=== PATIENT | male | born 1970 | race Caucasian/White ===

== ENCOUNTER 2019-11-12 14:25 | Emergency (ER) | payer OTHER ==
[~2019-11-12] VITALS: Ht 180.3 cm; Wt 99.8 kg
[~2019-11-12 14:25] MED LIST: LANTUS SOL100 UNIT/1 SUB-Q
--- OUTSIDE RECORDS SUMMARY | 2019-11-12 14:28 | XMS ---
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 E.Adrien. VISIT COUNT (12 MO.) 4 [facility] Althea Ferrera 1 [facility] ED 3 [facility] TOTAL 8 NOTE: Visits indicate total known visits. ED/UCC VISIT TRACKING (12 MO.) 11/12/2019 14:25 [facility] [place] TYPE: Emergency COMPLAINT: - RASH, SORE THROAT [facility] [place] [facility] DIAGNOSES: - Other chest pain - Acute kidney failure, unspecified - Chest Pain - 1 Type 2 diabetes mellitus with hyperglycemia - Elevated white blood cell count, unspecified 08/01/2019 19:12 [facility] DIAGNOSES: - Rash - Allergy, unspecified, initial encounter 05/13/2019 18:05 [facility] TYPE: Urgent Care DIAGNOSES: - Proc/trtmt not crd out d/t pt lv bef seen by [facility] prov 04/24/2019 08:13 [facility] [place] TYPE: Emergency COMPLAINT: - POSS INFECTION RT TOE DIAGNOSES: - Pain in left leg - Allergy status to other antibiotic agents status - Nicotine dependence, unspecified, uncomplicated - Pain in right leg - Allergy status to sulfonamides status - 1 Type 2 diabetes mellitus without complications - emt intermediate (current) use of insulin - Other specified soft tissue disorders - Allergy status to narcotic agent status 04/24/2019 00:00 [facility] [place] TYPE: Emergency COMPLAINT: - POSSIBLE INFECTION 12/07/2018 14:14 [facility] Althea [place] TYPE: Emergency DIAGNOSES: - Cellulitis of right lower limb - foot swelling 12/07/2018 12:51 [facility] TYPE: Urgent Care DIAGNOSES: - Foot Wound - Cellulitis of right lower limb 11/25/2018 22:17 [facility] DIAGNOSES: - Opioid dependence, uncomplicated - Overdose (Accidental) - Foot Pain - Other chronic osteomyelitis, right ankle and foot - Subacute osteomyelitis, right ankle and foot - 1 Type 2 diabetes mellitus without complications - Poisoning by unsp narcotics, accidental, init 11/13/2018 17:[address] [facility] Fidencio [place] TYPE: Emergency DIAGNOSES: - Skin Complaint - Cellulitis of right lower limb - medical problem - Hyperglycemia- Symptomatic - Other acute osteomyelitis, right ankle and foot INPATIENT VISIT TRACKING (12 MO.) 11/25/2018 22:17 [facility] DIAGNOSES: - Poisoning by unsp narcotics, accidental, init - Opioid dependence, uncomplicated - emt intermediate (current) use of insulin - Other chronic osteomyelitis, right ankle and foot - Other psychoactive substance abuse, uncomplicated - 1 Type 2 diabetes mellitus without complications - Nicotine dependence, unspecified, uncomplicated - Subacute osteomyelitis, right ankle and foot [email or web address]
[2019-11-12] MEDS ORDERED: GLUCOPHAGE500 MG PO (15:46)
[2019-11-12] MEDS ORDERED: OMEPRAZOLE20 MG PO (15:47)
[2019-11-12] MEDS ORDERED: LISINOPRIL10 MG PO (15:47)
[2019-11-12] MEDS ORDERED: FLOMAX0.4 MG PO (15:47)
[2019-11-12] MEDS ORDERED: FUROSEMIDE20 MG PO (15:48)
[2019-11-12] MEDS ORDERED: VITAMIN D21250 MCG PO (15:49)
[2019-11-12] MEDS ORDERED: LIPITOR40 MG PO (15:50)
[2019-11-12] MEDS ORDERED: CYCLOBENZAPRINE10 MG PO (15:50)
[2019-11-12] MEDS ORDERED: ONDANSETRON ODT8 MG PO (15:51)
[2019-11-12] MEDS ORDERED: DOXYCYCLINE HY100 MG PO (17:57)
== END 2019-11-12 18:30 | disposition home or self-care (01) ==
LOC: ED 14:25
DX: E11.65 Type 2 diabetes mellitus with hyperglycemia (principal); L73.9 Follicular disorder, unspecified; J40 Bronchitis, not specified as acute or chronic; F41.9 Anxiety disorder, unspecified; F17.200 Nicotine dependence, unspecified, uncomplicated; Z88.2 Allergy status to sulfonamides; Z88.5 Allergy status to narcotic agent; Z88.8 Allergy status to other drugs, medicaments and biological substances; Z88.1 Allergy status to other antibiotic agents; Z79.899 Other long term (current) drug therapy; Z79.4 Long term (current) use of insulin
CPT/HCPCS: 71046; 80053; 85025; 96360; 99285-25; J1815; J7030

== ENCOUNTER 2020-06-16 21:10 | Emergency (ER) | payer OTHER ==
[~2020-06-16] VITALS: Ht 182.9 cm; Wt 95.2 kg
--- OUTSIDE RECORDS SUMMARY | ~2020-06-16 | XMS | Encounter Summary ---
Demographics + + + | Address | [address] | | | [place] [address] | + + + | Home Phone | | + + + | Preferred Language | Unknown | + + + | Marital Status | | + + + | Rastafari Affiliation | Unknown | + + + | Race | White | + + + | Ethnic Group | Not or | + + + Author + + + | Author | [facility] | | | and [place] | + + + | Organization | [facility] | | | and [place] | + + + | Address | Unknown | + + + | Phone | Unavailable | + + + Support + + + + + | Name | Relationship | Address | Phone | + + + + + | Crystal Erik | ECON | [address] | | | | | [place], | | | | | [place] [address] | | + + + + + Care Team Providers + +------+ + | Care Wine Consultant Name | Role | Phone | + +------+ + PCP | Unavailable | + +------+ + Reason for Visit +---------+ + | Reason | Comments | +---------+ + | Post Op | right knee scope dos 12/05/14 | +---------+ + Encounter Details +--------+---------+ + + + | Date | Type | Department | Care Team | Description | +--------+---------+ + + + | 12/12/ | Office | [facility] | Miranda Perez | S/P orthopedic | | 2015 | Visit | ORTHOPEDIC SURGERY | MD Gosia [address] | surgery, follow-up | | | | [address] | [place] | exam (Primary Dx) | | | | [place] | [phone] | | | | | [address] | | | | | | [phone] | | | +--------+---------+ + + + Social History + +-------+ +--------+ + | Tobacco Use | Types | Packs/Day | Years | Date | | | | | Used | | + +-------+ +--------+ + | Former Smoker | | | | Quit: 08/18/2014 | + +-------+ +--------+ + + +---+---+---+ | Smokeless Tobacco: | | | | | Never Used | | | | + +---+---+---+ + + +---------+ + | Alcohol Use | Drinks/Week | oz/Week | Comments | + + +---------+ + | Not Asked | | | | + + +---------+ + + + + | Sex Assigned at | Date Recorded | | | | + + + | Not on file | | + + + documented as of this encounter Last Filed Vital Signs + + + + + | Vital Sign | Reading | Time Taken | Comments | + + + + + | Blood Pressure | - | - | | + + + + + | Pulse | - | - | | + + + + + | Temperature | 36.8 C (98.2 F) | 12/12/2014 7:09 AM | | | | | PDT | | + + + + + | Respiratory Rate | - | - | | + + + + + | Oxygen Saturation | - | - | | + + + + + | Inhaled Oxygen | - | - | | | Concentration | | | | + + + + + | Weight | 111.6 kg (246 lb) | 12/12/2014 7:09 AM | | | | | PDT | | + + + + + | Height | 182.9 cm (6') | 12/12/2014 7:09 AM | | | | | PDT | | + + + + + | Body Mass Index | 33.36 | 12/12/2014 7:09 AM | | | | | PDT | | + + + + + documented in this encounter Progress Notes Miranda Perez MD - 12/12/2014 7:28 AM PDTSee soap note [id number].Electronically sign ed by Miranda Perez MD at 12/12/2014 7:28 AM PDTMiranda Perez MD - 7:27 AM PDT [facility] [address] [place] [id number] OFFICE NOTE MIRANDA PEREZ MD Patient: CECILIO GARCIA Admitting: MR #: [id number] LOC: PT TYPE: Adm Date: 12/12/2014 : 1970 Cecilio returns today for his first postoperative visit following his right knee arthr oscopy performed on 12/05 one week ago. The knee is getting progressively more comfortable. He notes specifically that the significant medial sided knee pain is now resolved. He i s using a wheeled walker with a seat that he already had prior to surgery that allows him t o ambulate in the community with some support. EXAMINATION: The patient's right knee is examined. Incisions are clean, dry, and nicely healed. There is no evidence of drainage or infection. ADVICE: Mr. Garcia appears to be making steady progress. He is simply advised to avoi d high impact or high force activities. He continues to struggle with the use of nicotine, and we have encouraged him to minimize or discontinue use of nicotine if possible. He was given a single refill prescription for Dilaudid 4 mg pain pills. We will plan to see [facility] istopher back for a clinical check in 3 weeks. MIRANDA PEREZ MD Dictated by MIRANDA PEREZ MD 12/12/2014 07:27:54 Transcribed on 12/12/2014 07:38:58 by sandy job# [id number] Confirmation #: [id number] cc: IRAIDA FISH MD A M PDTdocumented in this encounter Plan of Treatment Not on filedocumented as of this encounter Visit Diagnoses + + | Diagnosis | + + | S/P orthopedic surgery, follow-up exam - Primary Follow-up examination, following | | other surgery | + + documented in this encounter"
--- OUTSIDE RECORDS SUMMARY | ~2020-06-16 | XMS | Encounter Summary ---
Demographics + + + | Address | [address] | | | [place] [address] | + + + | Home Phone | | + + + | Preferred Language | Unknown | + + + | Marital Status | | + + + | Jain Affiliation | Unknown | + + + | Race | White | + + + | Ethnic Group | Not or | + + + Author + + + | Author | [facility] | | | and [place] | + + + | Organization | [facility] | | | and [place] | + + + | Address | Unknown | + + + | Phone | Unavailable | + + + Support + + + + + | Name | Relationship | Address | Phone | + + + + + | Tasha Valencia | ECON | [address] | | | | | [place], | | | | | [place] [address] | | + + + + + Care Team Providers + +------+ + | Care General Contractor Name | Role | Phone | + +------+ + | Dimitri Fischer MD | PCP | | + +------+ + Reason for Visit + + + | Reason | Comments | + + + | Pre-op Exam | PREOP RIGHT KNEE ARTHROSCOPY AND LEFT ELBOW INJECTION AND | | | BILATERAL SHOULDER INJECTION DOS 02/12/08 | + + + Encounter Details +--------+---------+ + + + | Date | Type | Department | Care Team | Description | +--------+---------+ + + + | 02/05/ | Office | [facility] | Marty Wood | Hyperlipidemia, | | 2018 | Visit | ORTHOPEDIC SURGERY | MD Gosia [address] | unspecified | | | | [address] | [place] | hyperlipidemia type | | | | [place] | [id number] | (Primary Dx); Preop | | | | [address] | | testing; Left elbow | | | | [phone] | | pain; Other tear of | | | | | | medial meniscus of | | | | | | right knee as | | | | | | current injury, | | | | | | initial encounter; | | | | | | Bilateral shoulder | | | | | | pain, unspecified | | | | | | chronicity | +--------+---------+ + + + Social History + + + +--------+------+ | Tobacco Use | Types | Packs/Day | Years | Date | | | | | Used | | + + + +--------+------+ | Current Every Day | Cigarettes, | 0.5 | 20 | | | Smoker | E-Cigarettes | | | | + + + +--------+------+ + +---+---+---+ | Smokeless Tobacco: | | | | | Never Used | | | | + +---+---+---+ + + +---------+ + | Alcohol Use | Drinks/Week | oz/Week | Comments | + + +---------+ + | No | | | | + + +---------+ [...] + + + | Blood Pressure | 135/62 | 02/05/2018 2:12 PM | | | | | PDT | | + + + + + | Pulse | 90 | 02/05/2018 2:12 PM | | | | | PDT | | + + + + + | Temperature | 36.8 C (98.2 F) | 02/05/2018 2:12 PM | | | | | PDT | | + + + + + | Respiratory Rate | 18 | 02/05/2018 2:12 PM | | | | | PDT | | + + + + + | Oxygen Saturation | 96% | 02/05/2018 2:12 PM | | | | | PDT | | + + + + + | Inhaled Oxygen | - | - | | | Concentration | | | | + + + + + | Weight | 97.1 kg (214 lb) | 02/05/2018 2:12 PM | | | | | PDT | | + + + + + | Height | 182.9 cm (6') | 02/05/2018 2:12 PM | | | | | PDT | | + + + + + | Body Mass Index | 29.02 | 02/05/2018 2:12 PM | | | | | PDT | | + + + + + documented in this encounter H&P Notes Marty Wood MD - 02/05/2018 2:15 PM PDTFormatting of this note might be differen t from the original. 02/05/18 Patient: Cecilio Albarichshalini Juana History of present illness: Cecilio is a 47 y.o. male who presents to our clinic today for a preop examination. Cecilio is scheduled for a right knee arthroscopy combined with injections of the left elbow and both shoulder subacromial spaces on 5/23/18. He has histo ry of having previous undergone a right knee arthroscopy in 2014 which initially did well bu t he then later sustained a fall at [employer] with an associated right knee injury that has continued to plague him with pain. A more recent MRI scan has revealed a torn medial menis cus and he therefore is felt to be a candidate for a repeat right knee arthroscopy. In su tion, this will be combined with injections of his left elbow as well as both shoulder subac romial spaces while he is under anesthesia as he does have known traumatically-induced left elbow degenerative change and bilateral shoulder impingement syndrome. 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 Osteoporosis PONV (postoperative nausea and vomiting) Seizure (HCC) Testosterone deficiency Vitamin D deficiency Past Surgical History: Procedure Laterality Date CARPAL TUNNEL RELEASE Left 05/14/2017 Procedure: Left Elbow Joint Exploration and Bilateral Shoulder Injection; Surgeon: Nirmal Wood MD; Location: [facility] MA[facility] OR ELBOW SURGERY Left 11/15/2015 Procedure: Left Lateral Epicondylar Release & Injection of Left Elbow Joint ; Surgeon: Janet Wood MD; Location: [facility] MA[facility] OR KNEE ARTHROSCOPY Right 12/05/2014 Procedure: Right Knee Arthroscopy with Partial Medial Menisectomy and Medial- Femoral Tay droplasty; Surgeon: Marty Wood MD; Location: [facility] MAIN OR MANDIBLE SURGERY spinal cord injury Allergies Allergen Reactions Azithromycin Anaphylaxis Codeine Hives Hydrocodone Hives Sulfa Antibiotics Hives Current Outpatient Prescriptions on File Prior to Visit Medication Sig Dispense Refill amphetamine-dextroamphetamine (ADDERALL XR) 30 MG 24 hr capsule take 1 capsule by mouth once daily 0 amphetamine-dextroamphetamine (ADDERALL) 20 mg tablet take 1 tablet by mouth every morn ing and 1/2 tablet at noon 0 B-D 3CC LUER-ANDREAS SYR 84PK5-5/2 22G X 1-1/2" 3 ML MISC use to INJECT TESTOSTERONE TWICE A WEEK 0 B-D 3CC LUER-ANDREAS SYR 75IW6-6/2 23G X 1-1/2" 3 ML MISC 0 cholecalciferol (VITAMIN D-3) 1,000 units capsule Take 1 capsule by mouth Daily. (Patie nt not taking: Reported on 02/05/2018) 90 capsule 3 cyclobenzaprine (FLEXERIL) 10 mg tablet 1 tablet orally 3 times per day (Patient not ta sanjuanita: Reported on 02/05/2018) 90 tablet 2 dapagliflozin (FARXIGA) 10 mg tablet Take 1 tablet by mouth Daily. (Patient taking diff erently: Take 10 mg by mouth Daily. Was put of jardiance, but will be restarting) 30 tablet 1 ergocalciferol (VITAMIN D-2) 50,000 units capsule take 1 capsule by mouth weekly 0 gabapentin (NEURONTIN) 600 MG tablet take 1 tablet by mouth three times a day 0 glipiZIDE (GLUCOTROL) 10 MG tablet take 1 tablet by mouth twice a day 0 glucose blood test strips (TERRI CONTOUR TEST) strip Use as dir (Patient not taking: Reported on 02/05/2018) 100 each 0 HYDROmorphone (DILAUDID) 4 MG tablet Take 1 tablet by mouth every 6 hours as needed for Pain. (Patient not taking: Reported on 02/05/2018) 50 tablet 0 lisinopril (PRINIVIL, ZESTRIL) 10 mg tablet 0 metformin (GLUCOPHAGE) 1000 MG tablet Take 1,000 mg by mouth 2 times daily (with breakf ast & dinner). methadone 10 mg tablet Take 0.5 tablets by mouth every 8 hours as needed. (Patient miquel ng differently: Take 80 mg by mouth 2 times daily.) 45 tablet 0 NARCAN 4 MG/0.1ML 0 omeprazole (PRILOSEC) 20 mg capsule Take 20 mg by mouth every morning (before breakfast ). ondansetron (ZOFRAN) 4 mg tablet Take 4 mg by mouth every 8 hours as needed for Nausea. 0 oxyCODONE (ROXICODONE) 30 MG immediate release tablet Take 1 tablet by mouth every 6 ho urs as needed for Pain. (Patient taking differently: Take 30 mg by mouth every 4 hours as ne eded for Pain.) 120 tablet 0 rosuvastatin (CRESTOR) 40 MG tablet 0 SENNA LAX 8.6 MG tablet take 4 tablets by mouth UP TO 2 TIMES A DAY NEEDED FOR CONST IPATION 0 simvastatin (ZOCOR) 40 mg tablet Take 20 mg by mouth nightly. tamsulosin (FLOMAX) 0.4 mg CAPS Take 0.4 mg by mouth daily (after breakfast). 0 testosterone cypionate (DEPO-TESTOSTERONE) 200 mg/mL injection inject 0.4 milliliters t wo times a week 0 VENTOLIN HFA 108 (90 Base) MCG/ACT inhaler 0 No current facility-administered medications on file prior to visit. History reviewed. No pertinent family history. Social History Social History Marital status: Single Spouse name: N/A Number of children: N/A Years of education: N/A Occupational History Not on file. Social History Main Topics Smoking status: Current Every Day Smoker Packs/day: 0.50 Years: 20.00 Types: Cigarettes, E-Cigarettes Smokeless tobacco: Never Used Alcohol use No Drug use: Yes Frequency: 7.0 times per week Types: Marijuana Sexual activity: Not on file Other Topics Concern Not on file Social History Narrative No narrative on file Review of Systems Eyes: [] Double vision [] Glasses/contacts [] Failing vision Ear/Nose/Throat: [] Frequent Colds [] Sinus Disease [] Nose obstruction [] Sneezing Spells [] Change in taste [] Artificial teeth [] Ears ringing [] Ear pain [] Hearing loss [] Teeth problems [] Hoarseness [] Neck swelling [] Sore throat [] Congestion [] Nosebleeds [] Nasal allergies Respiratory: [] Asthma/Wheezing [] Pneumonia [] Night sweats [] Shortness of breath [] Chronic cough [] Coughing up blood [] Exposure to tuberculosis Cardiovascular: [] Heart Problems [] Hypertension [] Heart murmur [] Palpitations [] Rheumatic fever [] Phlebitis [] Chest pain [] Ankle swelling [] Leg cramps [] Racin g heart [] Skipping beats [] Blood clots Gastrointestinal: [] Abdominal pain [] Heartburn [] Blood from rectum [] Colitis [] Gallbladder problems [] Troubl e swallowing [] Bloated stomach [] Change in stools [] Vomiting blood [] Nausea [] Hemorrhoids [] Jaundice [ ] Hepatitis [] Diarrhea [] Constipation [] Diverticulitis Urinary Tract: [] Painful urination [] Kidney Stones [] Any urine leakage [] Weak urine stream [] Night urination [] Urine infections [] Bedwetting [] Blood in urine Skin: [] Skin rashes [] Itching/Burning [] Skin bruises easil y [] Artificial tanning [] Skin cancer [] Hair loss [] Changes in moles Musculoskeletal: [] Physical handicaps [] Back or shoulder pain []Rheumatoid disease [] Osteoarthritis [] Joint pain [] Joint swelling []Gout [] Leg cramps at night Neurological: [] Headaches [] Seizures [] Stroke/TIA [] Faintness [] Tremors [] Numbness [] Dizziness [] Changes in handwriting [] Memory loss [] Shooting pains Psychiatric: [] Depression [] Suicidal thoughts [] Sleep pattern changes [] Appetite changes [] Recent counseling [] Nervousness/anxiety [] Physical violence [] Marital problems Endocrine: [] Thyroid [] Diabetes Systemic: []Weight loss/gain (over 10 lbs) []Fever/chills []Fatigue [] Sleeping Difficulties [] Speech change [] Voice change Vitals: 02/05/18 1412 PainSc: 8 Estimated body mass index is 29.02 kg/m as calculated from the following: Height as of this encounter: 1.829 m (6'). Weight as of this encounter: 97.1 kg (214 lb). Physical examination:Patient is alert and oriented and in no acute distress. Inspection reveals: Skin is warm dry and intact with no gross deformity. Head: Oral pharnyx nonerythematous nonedematous no exudate noted Neck: Supple nontender without any lymphadenopathy. Heart: Regular rate and rhythm. Lungs: Clear to auscultation. Abdomen: Soft nontender no masses organomegaly. Cranial nerves 2-12 grossly intact. Musculoskeletal: His right knee is tender over the medial joint line. He does lack approxi mately 10 of full left elbow extension and is diffusely tender surrounding the left elbow. He does have pain with abduction of both shoulders against resistance. Neurovascular func tion is intact all 4 extremities. Assessment: Torn medial meniscus right knee, induced left elbow osteoarthrosis, bilateral shoulder impingement syndrome. Plan: The patient is scheduled for a right knee arthroscopy, and injections of left elbow a nd both shoulder subacromial spaces on 02/11/18. Therefore, the planned procedure with its r isks, possible complications, expected prognosis, and treatment alternatives was discussed w ith the patient. Risks and possible complications were listed but not limited to infection, nerve and vessel damage, bleeding, pain, scarring, stiffness, residual symptoms remaining a fter surgery, and the risk of anesthesia including . No guarantees were given or impli ed other than that of diligent effort. Fatoumata Wilson LPN This note was copied by office staff from an external medical record. It was written by the provider listed and the pasted text includes the patient name, date of , and original electronic notation of signature by the author. documented in this encounter Plan of Treatment Not on filedocumented as of this encounter Procedures + +--------+ + + + | Procedure Name | Priori | Date/Time | Associated Diagnosis | Comments | | | ty | | | | + +--------+ + + + | ECG 12 LEAD | Routin | 02/05/2018 | Hyperlipidemia, | Results for this | | | e | 3:12 PM | unspecified | procedure are in the | | | | PDT | hyperlipidemia type | results section. | + +--------+ + + + documented in this encounter Results Hemoglobin (02/05/2018 3:31 PM PDT) + +-------+ + + + | Component | Value | Ref Range | Performed | Pathologist | | | | | At | Signature | + +-------+ + + + | Hemoglobin | 14.0 | 13.5 - 18.0 | [facility] | | | | | g/dL | [facility] | [facility] | [facility] - | | | | | | [facility]ATORY | | + +-------+ + + + + + | Specimen | + + | Blood | + + + + + + + | Performing | Address | City/State/Zipcode | Phone Number | | Organization | | | | + + + + + | [facility] | [address] | [place] | [phone] | | [facility] | | [address] | | | - LABORATORY | | | | + + + + + ECG 12 lead (02/05/2018 3:12 PM PDT) + + + + + + | Component | Value | Ref Range | Performed | Pathologist | | | | | At | Signature | + + + + + + | VENTRICULAR | 89 | BPM | [facility] | | | RATE EKG | | | | | + + + + + + | ATRIAL RATE | 89 | BPM | [facility] | | + + + + + + | P-R | 156 | ms | [facility] | | | INTERVAL | | | | | + + + + + + | QRS | 120 | ms | [facility] | | | DURATION | | | | | + + + + + + | Q-T | 390 | ms | [facility] | | | INTERVAL | | | | | + + + + + + | Q-T | 474 | ms | [facility] | | | INTERVAL | | | | | | (CORRECTED) | | | | | + + + + + + | P WAVE AXIS | 65 | degrees | [facility] | | + + + + + + | QRS AXIS | 29 | degrees | [facility] | | + + + + + + | T AXIS | 37 | degrees | [facility] | | + + + + + + | INTERPRETAT | Normal sinus rhythmRight | | [facility] | | | ION TEXT | bundle branch | | | | | | blockAbnormal ECGWhen | | | | | | compared with ECG of | | | | | | 04-MAR-2017 09:40,No | | | | | | significant change was | | | | | | foundConfirmed by | | | | | | YAZMIN FERNANDEZ MD ([id number]) | | | | | | on 02/06/2018 7:51:03 AM | | | | + + + + + + + + | Specimen | + + | | + + + + + | Narrative | Performed At | + + + | | | + + + + +---------+ + + | Performing | Address | City/State/Zipcode | Phone Number | | Organization | | | | + +---------+ + + | [facility] | | | | + +---------+ + + documented in this encounter Visit Diagnoses + + | Diagnosis | + + | Hyperlipidemia, unspecified hyperlipidemia type - Primary | + + | Preop testing Preoperative examination, unspecified | + + | Left elbow pain Pain in joint, upper arm | + + | Other tear of medial meniscus of right knee as current injury, initial encounter | + + | Bilateral shoulder pain, unspecified chronicity | + + documented in this encounter
--- OUTSIDE RECORDS SUMMARY | ~2020-06-16 | XMS | Encounter Summary ---
Demographics + + + | Address | [address] | | | [place] [address] | + + + | Home Phone | | + + + | Preferred Language | Unknown | + + + | Marital Status | | + + + | Moravian Affiliation | Unknown | + + + | Race | White | + + + | Ethnic Group | Not or | + + + Author + + + | Author | [facility] | | | and [place] | + + + | Organization | [facility] | | | and [place] | + + + | Address | Unknown | + + + | Phone | Unavailable | + + + Support + + + + + | Name | Relationship | Address | Phone | + + + + + | Crystal Luzr | ECON | [address] | | | | | [place], | | | | | [place] [address] | | + + + + + Care Team Providers + +------+ + | Care Automatic Spooler Operator Name | Role | Phone | + +------+ + PCP | Unavailable | + +------+ + Reason for Visit + + + | Reason | Comments | + + + | Therapy Daily | | | Treatment | | + + + Evaluate & Treat (Routine) +--------+--------+ + + + + | Status | Reason | Specialty | Diagnoses / | Referred By | Referred To | | | | | Procedures | Contact | Contact | +--------+--------+ + + + + | Closed | | Occupational | Diagnoses | Katiana, | Jacky, | | | | Therapy / | might only | Amadeo | Dai Flower, | | | | Rehabilitatio | have 3 vts | MAHENDRA [address] | OT [address] | | | | n | auth'd with | [address] | | | | | non-funded | [address] [place] | [place], | | | | | code. | [place], [place] | [place] [address] | | | | | Advised | [id number] | Phone: | | | | | patient's | Phone: | [phone] | | | | | (on | [phone] | Fax: | | | | | 03/12) when | Fax: | [phone] | | | | | she called | [phone] | | | | | | to | | | | | | | reschedule | | | | | | | and apt that | | | | | | | was | | | | | | | scheduled. | | | | | | | Procedures | | | | | | | [facility] | | | | | | | TREATMENT 45 | | | +--------+--------+ + + + + Encounter Details +--------+---------+ + + + | Date | Type | Department | Care Team | Description | +--------+---------+ + + + | 03/26/ | Office | [facility] | Amadeo Saab | Left arm pain | | 2016 | Visit | [facility] | [address]A [address] | (Primary Dx); | | | | THERAPY [address] [place] | Decreased activities | | | | [place], | [place] [address] | of daily living | | | | [place] [address] | [phone] | (ADL); Lateral | | | | [phone] | | epicondylitis of | | | | | Henrietta Ledezma, | left elbow | | | | | [place] [address] | | | | | | [place], [place] | | | | | | [address] | | | | | | | | +--------+---------+ + + + Social History + + + +--------+ + | Tobacco Use | Types | Packs/Day | Years | Date | | | | | Used | | + + + +--------+ + | Current Every Day | Cigarettes, | 0.5 | | Quit: 08/18/2014 | | Smoker | E-Cigarettes | | | | + + + +--------+ + + +---+---+---+ | Smokeless Tobacco: [...] + + documented as of this encounter Progress Notes Henrietta Ledezma COTA - 03/26/2016 3:22 PM PDTFormatting of this note might be different f rom the original. [facility] TH[facility] OT OP [address] [place] [address] Occupational Therapy Daily Treatment Note Date: 03/26/2016 Patient Information Patient Name: Cecilio Arias Date of : 1970 Age: 46 y.o. History Encounter Diagnoses Code Name Primary? M79.602 Left arm pain Yes Z78.9 Decreased activities of daily living (ADL) M77.12 Lateral epicondylitis of left elbow Date of Onset: 11/15/2015 Referring Provider: Amadeo Saab PA-C Rehab Precautions Office Visit from 03/12/2016 in [facility] OT OP Rehab Precautions Precautions Seizure, Poorly controlled/fluctuating blood sugar Rehab Learning Style Office Visit from 03/12/2016 in [facility] OT OP Office Visit from 02/03/2015 in [facility] PT [employer] Learning Style Patient's [employer] Learning Style performance of task listening, reading, performance of task, observation Today's Treatment Start Time: 1515 Stop time: 1556 Duration: 41 minutes Timed Treatment Codes: 41 minutes # of OT Visits: 3 Subjective: Patient stated that his pain is always at an 8/10, but on reflection did note that the pain decreased after his last visit. He stated that he did not find his brace and d id not even wear it once. He stated that he wore the sleeve, but it did not feel like enough . He stated that when he attempts to work he is only able to do a couple of hours then he curry s to quit and hurt more for a couple of weeks. Pain Assessment: Pain Scale Used: NUMERIC Pain Rating Pre Assessment: 8 Location: elbow, shoulder Objective Provided MFR, TPR and soft tissue mobs to forearm. Patient reported that this provides the most relief. Instructed patient in self massage for home. Provied IASTM (Instrument Assisted Soft Tissue Mobilization) to forearm. Pt issued another lateral epicondyle brace and instructed in use. Encouraged patient to procure vibrator for home as he reported this was helpful here in the clinic. Instructed patient in wrist flexion stretch to decrease forearm tightness in extensors. Assessment Patient reporting that he was unable to follow through with brace use at home due to loss. Issued new one, and on trial patient reported some relief with this. Plan LLLT and MFR to area, monitor responce to brace, decrease pain. Electronically signed by: JHONATAN Marsh, 03/26/2016 17:17 Patient Name: Cecilio Arias/: 1970/ documented in this encounter Plan of Treatment Not on filedocumented as of this encounter Visit Diagnoses + + | Diagnosis | + + | Left arm pain - Primary Pain in limb | + + | Decreased activities of daily living (ADL) | + + | Lateral epicondylitis of left elbow Lateral epicondylitis of elbow | + + documented in this encounter"
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
--- OUTSIDE RECORDS SUMMARY | ~2020-06-16 | XMS | Encounter Summary ---
Demographics + + + | Address | [address] | | | [place] [address] | + + + | Home Phone | | + + + | Preferred Language | Unknown | + + + | Marital Status | | + + + | Voodoo Affiliation | Unknown | + + + | Race | White | + + + | Ethnic Group | Not or | + + + Author + + + | Author | [facility] | | | and [place] | + + + | Organization | [facility] | | | and [place] | + + + | Address | Unknown | + + + | Phone | Unavailable | + + + Support + + + + + | Name | Relationship | Address | Phone | + + + + + | Crystal Erik | ECON | [address] | | | | | [place], | | | | | [place] [address] | | + + + + + Care Team Providers + +------+ + | Care Visual Arts Teacher Name | Role | Phone | + +------+ + PCP | Unavailable | + +------+ + Reason for Referral Diagnostic/Screening (Routine) +--------+--------+ + + + + | Status | Reason | Specialty | Diagnoses / | Referred By | Referred To | | | | | Procedures | Contact | Contact | +--------+--------+ + + + + | Closed | | Radiology | Diagnoses | Marilia, | [facility] | | | | | Neck pain | Will D, | [address] | | | | | Procedures | MD [address] | [place], | | | | | MRI Cervical | [address] | [place] | | | | | Spine wo | [place], | [address] | | | | | Contrast | [place] [address] | Phone: | | | | | | Phone: | [phone] | | | | | | [phone] | Fax: | | | | | | Fax: | [phone] | | | | | | [phone] | | +--------+--------+ + + + + Evaluate & Treat (Routine) +--------+ + + + + + | Status | Reason | Specialty | Diagnoses / | Referred By | Referred To | | | | | Procedures | Contact | Contact | +--------+ + + + + + | Closed | Specialty | Orthopedic | Diagnoses | Marilia, | [facility] | | | Services | Surgery | Left elbow | Will Jurado, | Orthopedic | | | Required | | pain | MD [address] | [address] | | | | | | [place], | [place], | | | | | | [place] [address] | [place] [address] | | | | | | Phone: | Phone: | | | | | | [phone] | [phone] | | | | | | Fax: | Fax: | | | | | | [phone] | [phone] | +--------+ + + + + + Evaluate & Treat (Routine) +--------+ + + + + + | Status | Reason | Specialty | Diagnoses / | Referred By | Referred To | | | | | Procedures | Contact | Contact | +--------+ + + + + + | Closed | Specialty | Physical | Diagnoses | Marilia, | Claire, | | | Services | Medicine and | Low back | Will Jurado, | Mihir Hubbard MD | | | Required | Rehabilitatio | pain with | MD [address] | [address] | | | | n | sciatica, | [address] | [place] | | | | | sciatica | [place], | [place], [place] | | | | | laterality | [place] [address] | [address] Phone: | | | | | unspecified, | Phone: | [phone] | | | | | unspecified | [phone] | Fax: | | | | | back pain | Fax: | [phone] | | | | | laterality | [phone] | | +--------+ + + + + + Diagnostic/Screening (Routine) +--------+--------+ + + + + | Status | Reason | Specialty | Diagnoses / | Referred By | Referred To | | | | | Procedures | Contact | Contact | +--------+--------+ + + + + | Closed | | Radiology | Diagnoses | Marilia, | [facility] | | | | | Low back | Will D, | [address] | | | | | pain with | MD [address] | [place], | | | | | sciatica, | [address] | [place] | | | | | sciatica | [place], | [address] | | | | | laterality | [place] [address] | Phone: | | | | | unspecified, | Phone: | [phone] | | | | | unspecified | [phone] | Fax: | | | | | back pain | Fax: | [phone] | | | | | laterality | [phone] | | | | | | Procedures | | | | | | | MRI Lumbar | | | | | | | Spine wo | | | | | | | Contrast | | | +--------+--------+ + + + + Reason for Visit + + + | Reason | Comments | + + + | Arm Pain | Swollen below elbow | + + + | Medication Refill | | + + + Encounter Details +--------+---------+ + + + | Date | Type | Department | Care Team | Description | +--------+---------+ + + + | 06/27/ | Office | [facility] [place] [facility] | Will Capellan, | Left elbow pain | | 2015 | Visit | [facility] | [address] | (Primary Dx); Low | | | | [address] | [place], [place] | back pain with | | | | [place], [place] | [address] | sciatica, sciatica | | | | [address] | | laterality | | | | [phone] | | unspecified, | | | | | | unspecified back | | | | | | pain laterality; | | | | | | Neck pain | +--------+---------+ + + + Social History + + + +--------+ + | Tobacco Use | Types | Packs/Day | Years | Date | | | | | Used | | + + + +--------+ + | Current Every Day | Cigarettes | 0.5 | | Quit: 08/18/2014 | | Smoker | | | | | + + [...] + + + | Blood Pressure | 110/72 | 06/27/2015 8:07 AM | | | | | PDT | | + + + + + | Pulse | 95 | 06/27/2015 8:07 AM | | | | | PDT | | + + + + + | Temperature | 36.4 C (97.5 F) | 06/27/2015 8:07 AM | | | | | PDT | | + + + + + | Respiratory Rate | 14 | 06/27/2015 8:07 AM | | | | | PDT | | + + + + + | Oxygen Saturation | 97% | 06/27/2015 8:07 AM | | | | | PDT | | + + + + + | Inhaled Oxygen | - | - | | | Concentration | | | | + + + + + | Weight | 113.4 kg (250 lb) | 06/27/2015 8:07 AM | | | | | PDT | | + + + + + | Height | - | - | | + + + + + | Body Mass Index | 33.9 | 06/16/2015 11:19 AM | | | | | PDT | | + + + + + documented in this encounter Progress Notes Will Capellan MD - 07/03/2015 3:29 PM PDTFormatting of this note might be different f rom the original. Subjective: Patient ID: Cecilio Arias is a 45 y.o. male. Arm Pain The incident occurred more than 1 week ago. There was no injury mechanism. The pain is at a severity of 5/10. The pain is moderate. Pertinent negatives include no chest pain, muscle w eakness, numbness or tingling. Nothing aggravates the symptoms. He has tried nothing for the symptoms. The treatment provided no relief. 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 Patient Active Problem List Diagnosis Date Noted POA Opiate dependence 06/20/2015 Unknown Knee pain, right 02/03/2015 Unknown Past Surgical History Procedure Laterality Date Knee arthroscopy Right 12/05/2014 Procedure: Right Knee Arthroscopy with Partial Medial Menisectomy and Medial- Femoral Cho ndroplasty; Surgeon: Marty Wood MD; Location: [facility] History Social History Marital Status: Single Spouse Name: N/A Number of Children: N/A Years of Education: N/A Social History Main Topics Smoking status: Current Every Day Smoker -- 0.50 packs/day Types: Cigarettes Last Attempt to Quit: 08/18/2014 Smokeless tobacco: Never Used Alcohol Use: No Drug Use: Yes Special: Marijuana Sexual Activity: None Other Topics Concern None Social History Narrative Current Outpatient Prescriptions Medication Sig Dispense Refill albuterol (VENTOLIN HFA) 90 mcg/puff inhaler Inhale 2 puffs into the lungs every 6 hour s as needed. 2 each 1 celecoxib (CELEBREX) 200 mg capsule Take 1 capsule by mouth Daily. 60 capsule 3 Cholecalciferol (VITAMIN D PO) Take by mouth. cholecalciferol (VITAMIN D-3) 1,000 units capsule 0 cyclobenzaprine (FLEXERIL) 10 mg tablet 1 tablet orally 3 times per day 90 tablet 2 CYCLOBENZAPRINE HCL PO Take by mouth. gabapentin (NEURONTIN) 300 mg capsule take 1 capsule by mouth three times a day 90 caps ule 2 glucose blood test strips (TERRI CONTOUR TEST) strip Use as dir 100 each 0 insulin glargine (LANTUS SOLOSTAR) 100 units/mL injection pen Inject 80 Units under the skin nightly. insulin pen needle (B-D ULTRAFINE III SHORT PEN) 31 gauge x 8 mm Use as dir 100 each 0 lisinopril (PRINIVIL, ZESTRIL) 5 mg tablet Take 5 mg by mouth Daily. metformin (GLUCOPHAGE) 1000 MG tablet Take 1,000 mg by mouth 2 times daily (with breakf ast & dinner). methadone 10 mg tablet Take 0.5 tablets by mouth every 8 hours as needed. 45 tablet 0 omeprazole (PRILOSEC) 20 mg capsule Take 20 mg by mouth every morning (before breakfast ). oxyCODONE (ROXICODONE) 30 MG immediate release tablet Take 1 tablet by mouth every 6 ho urs as needed for Pain. 100 tablet 0 simvastatin (ZOCOR) 40 mg tablet Take 20 mg by mouth nightly. testosterone cypionate (DEPO-TESTOSTERONE) 200 mg/mL injection Inject into the muscle every 14 days. No current facility-administered medications for this visit. Current Outpatient Prescriptions on File Prior to Visit Medication Sig Dispense Refill albuterol (VENTOLIN HFA) 90 mcg/puff inhaler Inhale 2 puffs into the lungs every 6 hour s as needed. 2 each 1 celecoxib (CELEBREX) 200 mg capsule Take 1 capsule by mouth Daily. 60 capsule 3 Cholecalciferol (VITAMIN D PO) Take by mouth. cholecalciferol (VITAMIN D-3) 1,000 units capsule 0 CYCLOBENZAPRINE HCL PO Take by mouth. insulin glargine (LANTUS SOLOSTAR) 100 units/mL injection pen Inject 80 Units under the skin nightly. lisinopril (PRINIVIL, ZESTRIL) 5 mg tablet Take 5 mg by mouth Daily. metformin (GLUCOPHAGE) 1000 MG tablet Take 1,000 mg by mouth 2 times daily (with breakf ast & dinner). methadone 10 mg tablet Take 0.5 tablets by mouth every 8 hours as needed. 45 tablet 0 omeprazole (PRILOSEC) 20 mg capsule Take 20 mg by mouth every morning (before breakfast ). oxyCODONE (ROXICODONE) 30 MG immediate release tablet Take 1 tablet by mouth every 6 ho urs as needed for Pain. 100 tablet 0 simvastatin (ZOCOR) 40 mg tablet Take 20 mg by mouth nightly. testosterone cypionate (DEPO-TESTOSTERONE) 200 mg/mL injection Inject into the muscle every 14 days. No current facility-administered medications on file prior to visit. Allergies Allergen Reactions Azithromycin Anaphylaxis Codeine Hives Sulfa Antibiotics Hives Review of Systems Constitutional: Negative. HENT: Negative. Eyes: Negative. Respiratory: Negative. Cardiovascular: Negative. Negative for chest pain. Gastrointestinal: Negative. Genitourinary: Negative. Musculoskeletal: Negative. Skin: Negative. Neurological: Negative. Negative for tingling and numbness. Psychiatric/Behavioral: Negative. Objective: Physical Exam Constitutional: He is oriented to person, place, and time. He appears well-developed and we ll-nourished. HENT: Head: Normocephalic and atraumatic. Eyes: Pupils are equal, round, and reactive to light. Cardiovascular: Normal rate and regular rhythm. Pulmonary/Chest: Effort normal and breath sounds normal. Abdominal: He exhibits no distension. Neurological: He is alert and oriented to person, place, and time. Skin: Skin is warm. Psychiatric: He has a normal mood and affect. Assessment: 1. Left elbow pain XR Elbow Left 3 + Vw * [facility] Orthopedic Surgery - AMB Referral 2. Low back pain with sciatica, sciatica laterality unspecified, unspecified back pain late rality MRI Lumbar Spine wo Contrast * [facility] Physiatry - AMB Referral 3. Neck pain MRI Cervical Spine wo Contrast Plan: Orders Placed This Encounter Procedures XR Elbow Left 3 + Vw Standing Status: Future Number of Occurrences: 1 Standing Expiration Date: 06/27/2016 Order Specific Question: Reason for exam: Answer: pain Order Specific Question: What is the preferred imaging location? Answer: [facility] ([facility]) MRI Lumbar Spine wo Contrast Standing Status: Future Number of Occurrences: Standing Expiration Date: 06/27/2016 Order Specific Question: Reason for exam: Answer: pain Order Specific Question: What is the preferred imaging location? Answer: [facility] [place] [facility] ([facility]) MRI Cervical Spine wo Contrast Standing Status: Future Number of Occurrences: Standing Expiration Date: 06/27/2016 Order Specific Question: Reason for exam: Answer: pain in neck Order Specific Question: What is the preferred imaging location? Answer: [facility] ([facility]) * [facility] Physiatry - AMB Referral Referral Priority: Routine Referral Type: Evaluate & Treat Referral Reason: Specialty Services Required Requested Specialty: Physical Medicine and Rehabilitation Number of Visits Requested: 1 * [facility] Orthopedic Surgery - AMB Referral Referral Priority: Routine Referral Type: Evaluate & Treat Referral Reason: Specialty Services Required Requested Specialty: Orthopedic Surgery Number of Visits Requested: 1 New Prescriptions CYCLOBENZAPRINE (FLEXERIL) 10 MG TABLET 1 tablet orally 3 times per day documented in this encounter Plan of Treatment + +---------+--------+ + + | Name | Type | Priori | Associated Diagnoses | Order Schedule | | | | ty | | | + +---------+--------+ + + | MRI Lumbar Spine wo | Imaging | Routin | Low back pain with | Expected: | | Contrast | | e | sciatica, sciatica | 06/27/2015, Expires: | | | | | laterality | 06/27/2016 | | | | | unspecified, | | | | | | unspecified back | | | | | | pain laterality | | + +---------+--------+ + + | MRI Cervical Spine | Imaging | Routin | Neck pain | Expected: | | wo Contrast | | e | | 06/27/2015, Expires: | | | | | | 06/27/2016 | + +---------+--------+ + + + + +--------+ + + | Name | Type | Priori | Associated Diagnoses | Order Schedule | | | | ty | | | + + +--------+ + + | * [facility] [place] | Outpatient | Routin | Low back pain with | Ordered: 06/27/2015 | | Physiatry - AMB | Referral | e | sciatica, sciatica | | | Referral | | | laterality | | | | | | unspecified, | | | | | | unspecified back | | | | | | pain laterality | | + + +--------+ + + | * [facility] [place] | Outpatient | Routin | Left elbow pain | Ordered: 06/27/2015 | | Orthopedic Surgery - | Referral | e | | | | AMB Referral | | | | | + + +--------+ + + documented as of this encounter Results XR Elbow Left 3 + Vw (06/27/2015 9:03 AM PDT) + + | Specimen | + + | | + + + + + | Narrative | Performed At | + + + | EXAM: XR ELBOW LEFT 3 + VW dated 06/27/2015 8:53 AM HISTORY:pain | [facility] | | COMPARISON: April 13, 2015 from an outside institution. | [facility] | | FINDINGS:4 views of the left elbow. There is enthesopathy at the | [facility] | | common extensor insertion.. There is enthesopathy at the triceps | - IMAGING | | insertion. There is mild degenerative irregularity of the coronoid | | | process. There is normal mineralization. No acute osseous | | | abnormalities. No joint effusion. There are no radiopaque foreign | | | bodies. IMPRESSION - Degenerative changes about the elbow. | | | Dictated and Signed by: Jed Jon MD Electronically | | | signed: 06/27/2015 10:48 AM | | + + + + + | Procedure Note | + + | Kiko, Rad Results In - 06/27/2015 10:51 AM PDT EXAM: XR ELBOW LEFT 3 + VW dated | | 06/27/2015 8:53 AMHISTORY:painCOMPARISON: April 13, 2015 from an outside | | institution.FINDINGS:4 views of the left elbow. There is enthesopathy at the | | commonextensor insertion.. There is enthesopathy at the triceps insertion. There | | ismild degenerative irregularity of the coronoid process. There is | | normalmineralization. No acute osseous abnormalities. No joint effusion. There areno | | radiopaque foreign bodies.IMPRESSION -Degenerative changes about the elbow.Dictated and | | Signed by: Jed Jon MD Electronically signed: 06/27/2015 10:48 AM | |mild degenerative irregularity of the coronoid process. There is normal | |mineralization. No acute osseous abnormalities. No joint effusion. There are | |no radiopaque foreign bodies. | | | |IMPRESSION - | | | |Degenerative changes about the elbow. | | | |Dictated and Signed by: Jed Jon MD | | Electronically signed: 06/27/2015 10:48 AM | + + + + + + + | Performing | Address | City/State/Zipcode | Phone Number | | Organization | | | | + + + + + | [facility] | [address] | [place], [place] | [phone] | | [facility] | | [address] | | | - IMAGING | | | | + + + + + documented in this encounter Visit Diagnoses + + | Diagnosis | + + | Left elbow pain - Primary Pain in joint, upper arm | + + | Low back pain with sciatica, sciatica laterality unspecified, unspecified back pain | | laterality | + + | Neck pain Cervicalgia | + + documented in this encounter"
--- OUTSIDE RECORDS SUMMARY | ~2020-06-16 | XMS | Encounter Summary ---
Demographics + + + | Address | [address] | | | [place] [address] | + + + | Home Phone | | + + + | Preferred Language | Unknown | + + + | Marital Status | | + + + | Caodaism Affiliation | Unknown | + + + | Race | White | + + + | Ethnic Group | Not or | + + + Author + + + | Author | [facility] | | | and [place] | + + + | Organization | [facility] | | | and [...] [place], | | | | | [place] [address] | | + + + + + Care Team Providers + +------+ + | Care Theoretical Physicist Name | Role | Phone | + +------+ + | Lakeisha Sanabria MD | PCP | | + +------+ + Reason for Visit + + + | Reason | Comments | + + + | Chest Pain | pt at [facility], in and out of consciousness, states he has high | | | blood sugar, bg 280 with ems, shaky, blood in urine, and chest | | | pain. | + + + Encounter Details +--------+ + + + + | Date | Type | Department | Care Team | Description | +--------+ + + + + | 11/02/ | Emergency | [facility] | Tra Corley, | Atypical chest pain | | 2020 | | [facility] | MD [address] | (Primary Dx); Poorly | | | | CENTER [address] | [facility] | controlled diabetes | | | | [place] | [place] [address] | mellitus (HCC); | | | | [address] | [phone] | Acute renal failure, | | | | [phone] | | unspecified acute | | | | | | renal failure type | | | | | | (HCC); Leukocytosis, | | | | | | unspecified type | +--------+ + + + + Social [...] + + + | Blood Pressure | 84/51 | 11/02/2019 2:58 AM | | | | | PST | | + + + + + | Pulse | 121 | 11/02/2019 2:58 AM | | | | | PST | | + + + + + | Temperature | 37.2 C (99 F) | 11/02/2019 1:16 AM | | | | | PST | | + + + + + | Respiratory Rate | 21 | 11/02/2019 2:58 AM | | | | | PST | | + + + + + | Oxygen Saturation | 97% | 11/02/2019 2:58 AM | | | | | PST | | + + + + + | Inhaled Oxygen | - | - | | | Concentration | | | | + + + + + | Weight | 116.1 kg (256 lb) | 11/02/2019 1:16 AM | | | | | PST | | + + + + + | Height | - | - | | + + + + + | Body Mass Index | 34.72 | 08/01/2019 7:16 PM | | | | | PST | | + + + + + documented in this encounter Functional Status + + + + | Functional Status | Response | Date of Assessment | + + + + | Are you deaf or do you have serious | No | 11/28/2018 | | difficulty hearing? | | | + + + + | Are you blind or do you have serious | No | 11/28/2018 | | difficulty seeing, even when wearing | | | | glasses? | | | + + + + | Do you have serious difficulty walking or | No | 11/28/2018 | | climbing stairs? (5 years old or older) | | | + + + + | Do you have difficulty dressing or bathing? | No | 11/28/2018 | | (5 years old or older) | | | + + + + | Because of a physical, mental, or emotional | No | 11/28/2018 | | condition, do you have difficulty doing | | | | errands alone such as visiting a doctor's | | | | office or shopping? [15 years old or | | | | older)] | | | + + + + + + + + | Cognitive Status | Response | Date of Assessment | + + + + | Because of a physical, mental, or emotional | No | 11/28/2018 | | condition, do you have serious difficulty | | | | concentrating, remembering, or making | | | | decisions? (5 years old or older) | | | + + + + documented as of this encounter Medications at Time of Discharge + + + +---------+ + + | Medication | Sig | Dispensed | Refills | Start | End Date | | | | | | Date | | + + + +---------+ + + | atorvaSTATin | Take 40 mg by mouth | | 0 | | | | (LIPITOR) 40 mg | Daily. | | | | | | tablet | | | | | | + + + +---------+ + + | | ALTERNATING 2 FILMS | | 0 | 01/09/20 | | | buprenorphine-naloxo | with 2 and 1/2 FILMS | | | 19 | | | ne (SUBOXONE) 8-2 mg | under the tongue | | | | | | SL film | once daily for 5 | | | | | | | days | | | | | + + + +---------+ + + | calamine lotion | Apply to affected | 118 mL | 1 | 08/01/20 | | | | area three times | | | 19 | | | | daily. | | | | | + + + +---------+ + + | cyclobenzaprine | 1 tablet orally 3 | 90 | 2 | 07/03/20 | | | (FLEXERIL) 10 mg | times per day | tablet | | 15 | | | tablet | | | | | | + + + +---------+ + + | EPINEPHrine | Inject 0.3 mLs into | 1 each | 0 | 08/01/20 | | | auto-injector 0.3 | the muscle as needed | | | 19 | | | mg/0.3 mL injection | for Anaphylaxis. | | | | | + + + +---------+ + + | ergocalciferol | Take 50,000 Units by | | 0 | | | | (VITAMIN D-2) 50,000 | mouth Once a week. | | | | | | units capsule | On | | | | | + + + +---------+ + + | gabapentin | take 1 tablet by | | 0 | 07/07/20 | | | (NEURONTIN) 600 MG | mouth three times a | | | 17 | | | tablet | day | | | | | + + + +---------+ + + | lisinopril | Take 10 mg by mouth | | 0 | 07/04/20 | | | (PRINIVIL, ZESTRIL) | Daily. | | | 17 | | | 10 mg tablet | | | | | | + + + +---------+ + + | metFORMIN | Take 2 tablets by | 60 | 0 | 11/11/19 | | | (GLUCOPHAGE) 500 mg | mouth 2 times daily. | tablet | | 19 | | | tablet | | | | | | + + + +---------+ + + | omeprazole | Take 20 mg by mouth | | 0 | | | | (PRILOSEC) 20 mg | every morning | | | | | | capsule | (before breakfast). | | | | | + + + +---------+ + + | ondansetron | | | 0 | 01/08/20 | | | (ZOFRAN ODT) 4 mg | | | | 19 | | | disintegrating | | | | | | | tablet | | | | | | + + + +---------+ + + | tamsulosin | Take 0.4 mg by mouth | | 0 | 02/08/20 | | | (FLOMAX) 0.4 mg CAPS | daily (after | | | 17 | | | | breakfast). | | | | | + + + +---------+ + + | trolamine | leg | 170 g | 0 | 11/11/19 | | | salicylate | | | | 19 | | | (ASPERCREME) 10% | | | | | | | cream | | | | | | + + + +---------+ + + | VENTOLIN HFA 108 | | | 0 | 06/09/20 | | | (90 Base) MCG/ACT | | | | 17 | | | inhaler | | | | | | + + + +---------+ + + documented as of this encounter ED Notes Monique Live RN - 11/02/2019 4:48 AM PSTPt did not want to wait for results. Electro nically signed by Monique Live RN at 11/02/2019 4:49 AM PSTIris Chi RN - 07/2020 4:24 AM PSTPatient gave urine specimen and got very agitated and stated he had to l eave "right now" because they were paying for a dag coater. IV removed, tip intact. Patien t immediately left department without instructions. ra Corley MD - 11/02/2019 1:37 AM PSTFormatting o f this note might be different from the original. [facility] Cecilio Arias EMERGENCY DEPARTMENT ENCOUNTER NOTE [address] [place] [address] PCP:Lakeisha Sanabria MD CHIEF COMPLAINT Chief Complaint Patient presents with Chest Pain pt at [facility], in and out of consciousness, states he has high blood sugar, bg 280 with e msannalisa, blood in urine, and chest pain. [facility] Cecilio Arias is a 49 y.o. male who presents to the emergency department with donna st pain, high blood sugar, hematuria. This patient was at [facility]. His blood sugar s have been running high. He had been doing fine earlier in the day. He is eating and drin sanjuanita okay. He had several high sugar boluses. Paramedics were called [facility] and he was br ought here. He started having some pain in the left side of his chest while at [facility]. He also has had some hematuria that just started tonight. He is accompanied by his , twin hahn they're providing the history. PAST MEDICAL HISTORY Past Medical History: Diagnosis Date Adverse effect of anesthesia Slow to wake up Asthma Cellulitis 11/13/2018 right lower leg / foot Diabetes mellitus (HCC) Diabetes mellitus type II, ORAL Control 10/28/2011 Elevated cholesterol Elevated hemoglobin A1c 11/07/2018 12.9 - 07/2018 12.3 - 11/2016 Emphysema of lung ([facility]) GERD (gastroesophageal reflux disease) Immune deficiency disorder ([facility]) Lab results placed in chart regarding [id number] Phenotype. Osteoporosis PONV (postoperative nausea and vomiting) Seizure ([facility]) Testosterone deficiency Type 2 diabetes mellitus ([facility]) Vitamin D deficiency SURGICAL HISTORY Past Surgical History: Procedure Laterality Date CARPAL TUNNEL RELEASE Left 05/14/2017 Procedure: Left Elbow Joint Exploration and Bilateral Shoulder Injection; Surgeon: Nirmal Wood MD; Location: [facility] MAIN OR CARPAL TUNNEL RELEASE 05/14/2017 ELBOW SURGERY Left 11/15/2015 Procedure: Left Lateral Epicondylar Release & Injection of Left Elbow Joint ; Surgeon: Janet Wood MD; Location: [facility] MAIN OR INCISION AND DRAINAGE Right 11/07/2018 Procedure: right great toe superfical bone biopsy; Surgeon: Jose Nash MD; Location: [facility] MAIN OR KNEE ARTHROSCOPY Right 12/05/2014 Procedure: Right Knee Arthroscopy with Partial Medial Menisectomy and Medial- Femoral Tay droplasty; Surgeon: Marty Wood MD; Location: [facility] MAIN OR KNEE ARTHROSCOPY Right 02/11/2018 Procedure: Right Knee Arthroscopy & bilateral Elbow Injections, Lateral Tibial Chondroplas ty, Medial Femoral Chondroplasty, Partial medial meniscectomy; Surgeon: Marty Wood MD; Location: [facility] MAIN OR KNEE ARTHROSCOPY Right 12/05/2014 MANDIBLE SURGERY MANDIBLE SURGERY OTHER SURGICAL HISTORY Left 11/15/2015 OTHER SURGICAL HISTORY Right 11/07/2018 INCISION AND DRAINAGE FOOT - R great toe OTHER SURGICAL HISTORY 12/05/2014 spinal cord injury 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 buprenorphine-naloxone (SUBOXONE) 8-2 mg SL film ALTERNATING 2 FILMS with 2 and 1/2 BEREKET MS under the tongue once daily for 5 days calamine lotion Apply to affected area three times daily. cyclobenzaprine (FLEXERIL) 10 mg tablet 1 tablet orally 3 times per day EPINEPHrine auto-injector 0.3 mg/0.3 mL injection Inject 0.3 mLs into the muscle as nee ded for Anaphylaxis. ergocalciferol (VITAMIN D-2) 50,000 units capsule Take 50,000 Units by mouth Once a wee k. On gabapentin (NEURONTIN) 600 MG tablet take 1 tablet by mouth three times a day lisinopril (PRINIVIL, ZESTRIL) 10 mg tablet Take 10 mg by mouth Daily. metFORMIN (GLUCOPHAGE) 500 mg tablet Take 2 tablets by mouth 2 times daily. omeprazole (PRILOSEC) 20 mg capsule Take 20 mg by mouth every morning (before breakfast ). ondansetron (ZOFRAN ODT) 4 mg disintegrating tablet tamsulosin (FLOMAX) 0.4 mg CAPS Take 0.4 mg by mouth daily (after breakfast). trolamine salicylate (ASPERCREME) 10% cream leg VENTOLIN HFA 108 (90 Base) MCG/ACT inhaler ALLERGIES Allergies Allergen Reactions Azithromycin Anaphylaxis Codeine Hives Hydrocodone Hives Hydroxyzine Other (See Comments) "sleepwalks, doesn't react well" Sulfa Antibiotics Hives FAMILY HISTORY No family history on file. SOCIAL HISTORY Social History Socioeconomic History Marital status: Single Spouse name: Not on file Number of children: Not on file Years of education: Not on file Highest education level: Not on file Tobacco Use Smoking status: Current Every Day Smoker Packs/day: 0.50 Years: 20.00 Pack years: 10.00 Types: Cigarettes, E-Cigarettes Smokeless tobacco: Never Used Substance and Sexual Activity Alcohol use: No Drug use: Yes Frequency: 7.0 times per week Types: Methamphetamines, Marijuana Comment: Drug use: Yes REVIEW OF SYSTEMS All systems reviewed and found negative except what is in the HPI PHYSICAL EXAM VITAL SIGNS: (initial vital signs):Temp: 37.2 C (99 F) Pulse: 101 Resp: 16 SpO2: 93 % BP: 101/50 Body mass index is 34.72 kg/m. Constitutional: Well developed, Well nourished, No acute distress, Non-toxic appearance. HENT: Normocephalic, Atraumatic, Bilateral external ears normal, Tympanic membranes normal , Mucous membranes are moist, Nasal mucosa is normal. Oropharynx is clear. Eyes: PERRL, EOMI, Conjunctiva normal, No discharge. Palpebral conjunctiva are pink. Neck: Normal range of motion, No tenderness, Supple, No stridor. Respiratory: Clear to auscultation bilaterally, No respiratory distress, No wheezing Chest: Non tender, no signs of trauma Cardiovascular: Normal heart rate, Normal rhythm, No murmurs appreciated. GI: Soft, Non tenderness, No peritoneal signs, No masses Extremities: Warm and well perfused, no edema, no joint swelling or deformity. Good ROM. Back: No CVAT, No tenderness of the thoracic or lumbar spine. Skin: Warm, Dry, No erythema, No induration, No rash. No skin infections seen on exam. Neurologic: Alert & oriented x 3, No focal motor or sensory deficits. Speech is clear. G ait is normal. EKG Twelve-lead EKG shows sinus tachycardia at 111 beats a minute. Right bundle branch block n oted. Q waves in the inferior leads. No acute ST elevation or depression. Her intervals 1 60. QRS duration is 130. QT corrected is 481. This is an abnormal EKG. In comparison to prior EKGs today's EKG is unchanged. RADIOLOGY Chest x-ray: No acute cardiopulmonary disease ED COURSE & MEDICAL DECISION MAKING Pertinent Labs & Imaging studies reviewed. (See chart for details) The patient was seen and examined shortly after arriving in the emergency department. Hist ory and physical were obtained, vital signs were noted. White blood cell count is elevated at 16.9. H&H and platelets unremarkable. Basic metabolic panel glucose is elevated 178. R enal function is significantly impaired, BUN is 21, creatinine is 3.0. GFR is 22. Troponin is 0.05. Glucose when he came in was 220. Chest x-ray shows no acute pathology. Urinalys is was pending The patient determined that he did not want to wait any longer. He was concerned about get ting home. He informed the nurse that he was leaving and wouldn't wait to talk to me. Urinalysis came back after the patient left. Urinalysis is abnormal with trace ketones, lo ts of glucose, RBCs 15-25 with rbc's 10-15. There are a lot of epithelial cells and 1+ bact eria. Culture will be obtained. I was able to find labs from July 2019 that showed a normal creatinine. Today's creati nine is 3.04. He has a normal BUN. Bicarb is normal. Potassium is normal. He was hydrate d while he was here in the ER. He needs close follow-up with primary care and nephrology. White count is elevated of unclear significance. His diabetes is poorly controlled. Last Set of Vital Signs: Temp: 37.2 C (99 F) Pulse: 121 Resp: 21 SpO2: 97 % BP: (!) 84/ 51 FINAL IMPRESSION 1. Atypical chest pain 2. Poorly controlled diabetes mellitus (HCC) 3. Acute renal failure, unspecified acute renal failure type (HCC) 4. Leukocytosis, unspecified type PLAN Patient eloped Tra Corley MD 11/02/19 0555 Iris Galeano RN - 11/02/2019 1:[address] [facility], in and out of consciousness, states he has high b lood sugar, bg 280 with ems, shaky, blood in urine, and chest pain. Patient states he has a history of neck fracture and pain is always at 8/10. Also, ana maría black told EMS his w as having an affair and he wanted to keep her car in sight of the ambulance. EMS states pao walter seems paranoid but denied drug abuse. bg reg high at home and gave him 6 units, t hen 8 units, bg came down to 400s then gave another 6unit. Then at [facility] gave him 8 for b g of "300-something" Tdocumented in this encounter Plan of Treatment + +------+--------+ + + | Name | Type | Priori | Associated Diagnoses | Date/Time | | | | ty | | | + +------+--------+ + + | ED INFORMATION | SHITAL | Routin | | 11/02/2019 1:14 AM | | EXCHANGE | | e | | PST | + +------+--------+ + + documented as of this encounter Procedures + +--------+ + + + | Procedure Name | Priori | Date/Time | Associated Diagnosis | Comments | | | ty | | | | + +--------+ + + + | URINALYSIS WITH | STAT | 11/02/2019 | | Results for this | | MICROSCOPIC WITH | | 4:10 AM | | procedure are in the | | CULTURE IF INDICATED | | PST | | results section. | + +--------+ + + + | DRUGS OF ABUSE, | STAT | 11/02/2019 | | Results for this | | SCREEN, URINE | | 4:10 AM | | procedure are in the | | | | PST | | results section. | + +--------+ + + + | CULTURE, URINE | STAT | 11/02/2019 | | Results for this | | | | 4:10 AM | | procedure are in the | | | | PST | | results section. | + +--------+ + + + | BETA | STAT | 11/02/2019 | | Results for this | | HYDROXYBUTYRATE, | | 1:54 AM | | procedure are in the | | QUANT | | PST | | results section. | + +--------+ + + + | TROPONIN I | STAT | 11/02/2019 | | Results for this | | | | 1:54 AM | | procedure are in the | | | | PST | | results section. | + +--------+ + + + | D-DIMER | STAT | 11/02/2019 | | Results for this | | | | 1:54 AM | | procedure are in the | | | | PST | | results section. | + +--------+ + + + | CBC WITH | STAT | 11/02/2019 | | Results for this | | DIFFERENTIAL | | 1:54 AM | | procedure are in the | | | | PST | | results section. | + +--------+ + + + | BASIC METABOLIC | STAT | 11/02/2019 | | Results for this | | PANEL | | 1:54 AM | | procedure are in the | | | | PST | | results section. | + +--------+ + + + | XR CHEST AP PORTABLE | STAT | 11/02/2019 | | Results for this | | | | 1:44 AM | | procedure are in the | | | | PST | | results section. | + +--------+ + + + | POC GLUCOSE | Routin | 11/02/2019 | | Results for this | | | e | 1:25 AM | | procedure are in the | | | | PST | | results section. | + +--------+ + + + | ECG 12 LEAD | STAT | 11/02/2019 | | Results for this | | | | 1:23 AM | | procedure are in the | | | | PST | | results section. | + +--------+ + + + | ED INFORMATION | Routin | 11/02/2019 | | | | EXCHANGE | e | 1:14 AM | | | | | | PST | | | + +--------+ + + + +---+--------+ | | | | | Proced | | | ure | | | Note - | | | Kiko, | | | Lab In | | | | | | Hlseve | | | n - | | | 02/11/ | | | 2020 | | | 1:15 | | | AM PST | | | | | | Format | | | ting | | | of | | | this | | | note | | | might | | | be | | | differ | | | ent | | | from | | | the | | | origin | | | al.COL | | | LECTIV | | | E?NOTI | | | FICATI | | | ON?02/ | | | 202 | | | 0 | | | 01:14? | | | AVLONI | | | TIS, | | | DENIS | | | OPHER | | | S?MRN: | | | | | | [id number] | | | [id number] | | | riteri | | | a Met | | | PDMP | | | | | | Histor | | | y of | | | Sepsis | | | | | | DxSecu | | | rity | | | and | | | Safety | | | No | | | recent | | | | | | Securi | | | ty | | | Events | | | | | | curren | | | tly on | | | | | | fileED | | | Care | | | Guidel | | | inesTh | | | ere | | | are | | | curren | | | tly no | | | ED | | | Care | | | Guidel | | | will | | | for | | | this | | | patien | | | t. | | | Please | | | check | | | your | | | facili | | | ty's | | | medica | | | l | | | record | | | s | | | system | | | .Flags | | | | | | Histor | | | y of | | | Sepsis | | | - | | | Patien | | | t has | | | receiv | | | ed a | | | diagno | | | sis of | | | | | | Sepsis | | | from | | | an | | | acute | | | or | | | post-a | | | cute | | | settin | | | g. | | | Apply | | | approp | | | riate | | | clinic | | | al | | | planni | | | ng | | | practi | | | harsh; | | | to | | | learn | | | more | | | visit | | | cdc.go | | | v/seps | | | is/cli | | | nicalt | | | ools / | | | | | | Attrib | | | uted | | | By: | | | Collec | | | tive | | | Medica | | | l / | | | Attrib | | | uted | | | On: | | | 01/02/ | | | 2020 | | | Prescr | | | iption | | | Drug | | | Report | | | (12 | | | Mo.)Rx | | | | | | Detail | | | sFill | | | Date | | | Drug | | | Descri | | | ption | | | Qty. | | | Prescr | | | iber | | | CS MED | | | | | | 2019- | | | 2-17 | | | BUPREN | | | ORPHIN | | | E 8 MG | | | | | | TABLET | | | SL 14 | | | | | | KIZZYA | | | NN | | | KAYLEE | | | 3 480 | | | | | | 2019-1 | | | 2-10 | | | BUPREN | | | ORPHIN | | | E 8 MG | | | | | | TABLET | | | SL 14 | | | | | | KIZZYA | | | NN | | | KAYLEE | | | 3 480 | | | | | | 2019-1 | | | 2-04 | | | TESTOS | | | TERONE | | | CYP | | | 200 | | | MG/ML | | | 4 LAKEISHA | | | SANABRIA | | | 3 0 | | | 2019-1 | | | 2-01 | | | BUPREN | | | ORPHIN | | | E 8 MG | | | | | | TABLET | | | SL 14 | | | | | | KIZZYA | | | NN | | | KAYLEE | | | 3 480 | | | | | | 2019-1 | | | 1-23 | | | BUPREN | | | ORPHIN | | | E 8 MG | | | | | | TABLET | | | SL 14 | | | | | | KIZZYA | | | NN | | | KAYLEE | | | 3 480 | | | | | | 2019-1 | | | 1-19 | | | BUPREN | | | ORPHIN | | | E 8 MG | | | | | | TABLET | | | SL 8 | | | KIZZYA | | | NN | | | KAYLEE | | | 3 480 | | | | | | 2019-1 | | | 1-07 | | | BUPREN | | | ORPHIN | | | E 8 MG | | | | | | TABLET | | | SL 10 | | | | | | KEMUNT | | | O | | | KAKUMB | | | A 3 | | | 480 | | | 2019-1 | | | 0-28 | | | TESTOS | | | TERONE | | | CYP | | | 200 | | | MG/ML | | | 4 LAKEISHA | | | SANABRIA | | | 3 0 | | | 2019-1 | | | 0-15 | | | BUPREN | | | ORPHIN | | | E 8 MG | | | | | | TABLET | | | SL 4 | | | KEMUNT | | | O | | | KAKUMB | | | A 3 | | | 480 | | | 2019-0 | | | 9-04 | | | BUPREN | | | ORPHIN | | | E 8 MG | | | | | | TABLET | | | SL 4 | | | KEMUNT | | | O | | | KAKUMB | | | A 3 | | | 480 | | | 2019-0 | | | 8-29 | | | TESTOS | | | VAMSHI | | | CYP | | | 2,000 | | | MG/10 | | | ML 10 | | | LAKEISHA | | | SANABRIA | | | 0 | | | 2019-0 | | | 8-28 | | | BUPREN | | | ORPHIN | | | E 8 MG | | | | | | TABLET | | | SL 4 | | | KEMUNT | | | O | | | KAKUMB | | | A 3 | | | 480 | | | 2019-0 | | | 8-22 | | | BUPREN | | | ORPHIN | | | E 8 MG | | | | | | TABLET | | | SL 10 | | | | | | KEMUNT | | | O | | | KAKUMB | | | A 3 | | | 480 | | | 2019-0 | | | 8-16 | | | BUPREN | | | ORPHIN | | | E 8 MG | | | | | | TABLET | | | SL 10 | | | | | | KEMUNT | | | O | | | KAKUMB | | | A 3 | | | 480 | | | 2019-0 | | | 8-14 | | | BUPREN | | | ORPHIN | | | E 8 MG | | | | | | TABLET | | | SL 4 | | | KEMUNT | | | O | | | KAKUMB | | | A 3 | | | 480 | | | 2019-0 | | | 8-08 | | | BUPREN | | | ORPHIN | | | E 8 MG | | | | | | TABLET | | | SL 10 | | | | | | KEMUNT | | | O | | | KAKUMB | | | A 3 | | | 480 | | | 2019-0 | | | 7-22 | | | TESTOS | | | TERONE | | | CYP | | | 200 | | | MG/ML | | | 2 LAKEISHA | | | SANABRIA | | | 3 0 | | | 2019-0 | | | 7-13 | | | BUPREN | | | ORPHIN | | | E 8 MG | | | | | | TABLET | | | SL 8 | | | KEMUNT | | | O | | | KAKUMB | | | A 3 | | | 480 | | | 2019-0 | | | 7-09 | | | BUPREN | | | ORPHIN | | | E 8 MG | | | | | | TABLET | | | SL 6 | | | KEMUNT | | | O | | | KAKUMB | | | A 3 | | | 480 | | | 2019-0 | | | 6-04 | | | BUPREN | | | ORP-NA | | | LOX | | | 8-2 MG | | | SL | | | FILM 6 | | | | | | KEMUNT | | | O | | | KAKUMB | | | A 0 | | | Showin | | | g 20 | | | of the | | | 27 | | | most-r | | | ecent | | | prescr | | | iption | | | s Rx | | | [facility] | | | yMetri | | | c | | | Count | | | CS | | | II-V | | | Rx 19 | | | CS-II | | | Rx 1 | | | Quanti | | | ty | | | Dispen | | | sed | | | 357 | | | Unique | | | | | | Prescr | | | ibers | | | 5 | | | Unique | | | | | | Pharma | | | cies 2 | | | | | | Benzos | | | 0 | | | Opioid | | | s 16 | | | Long | | | Acting | | | | | | Opioid | | | s 0 | | | E.D. | | | Visit | | | Count | | | (12 | | | mo.)Fa | | | cility | | | | | | Visits | | | Low | | | Acuity | | | | | | Provid | | | ence | | | [facility] | [facility] | | | [facility] | | | 5 0 | | | [facility] | | | | | | [facility] | | anding | | | ED [facility] | | | [facility] | | | [facility] | | | al 2 0 | | | Total | | | 8 0 | | | Note: | | | Visits | | | | | | indica | | | te | | | total | | | known | | | visits | | | . | | | Medica | | | id Low | | | | | | Acuity | | | Dx | | | are | | | the | | | number | | | of | | | primar | | | y | | | diagno | | | ses on | | | the | | | Medica | | | id's | | | Low | | | Acuity | | | dx | | | list. | | | | | | Recent | | | | | | Emerge | | | ncy | | | Depart | | | ment | | | Visit | | | [facility] | | | yDate | | | Facili | | | ty | | | City | | | State | | | Type | | | Diagno | | | ses or | | | Chief | | | | | | Compla | | | int | | | Feb | | | 11, | | | 2020 | | | Provid | | | ence | | | [facility] [place] | | | [place] | | | Emerge | | | ncy | | | Nov | | | 10, | | | 2019 | | | Provid | | | ence | | | [facility] [place] | | | [place] | | | Emerge | | | ncy | | | Rash | | | | | | Allerg | | | y, | | | unspec | | | ified, | | | | | | initia | | | l | | | encoun | | | ter | | | Aug | | | 22, | | | 2019 | | | [facility] | | | [place] [facility] | | [place] | | | [place] | | [place] | | | Urgent | | | Care | | | | | | Proc/t | | | rtmt | | | not | | | crd | | | out | | | d/t pt | | | lv | | | bef | | | seen | | | by | | | hl[facility] | | | care | | | prov | | | Aug 3, | | | 2019 | | | [facility] | [facility] | | | [place] 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 | | | [place] | | | [place] | | | Emerge | | | ncy | | | Chief | | | Compla | | | int: | | | POSSIB | | | LE | | | INFECT | | | ION | | | Mar | | | 18, | | | 2019 | | | [facility] | | | ence | | | [facility] | | | [facility] | | | [place] | | | [place] | | | Emerge | | | ncy | | | foot | | | swelli | | | ng | | | Cellul | | | itis | | | of | | | right | | | lower | | | limb | | | Mar | | | 18, | | | 2019 | | | [facility] | | | [place] | | | Urgent | | | Care | | | [place] | | | [place] | | | Urgent | | | Care | | | | | | Foot | | | Wound | | | | | | Cellul | | | itis | | | of | | | right | | | lower | | | limb | | | Mar 6, | | | 2019 | | | [facility] | | | ence | | | [facility] | | | [facility] | [place] | | | [place] | | | Emerge | | | ncy | | | | | | Overdo | | | se | | | (Accid | | | ental) | | | | | | Foot | | | Pain | | | | | | Poison | | | ing by | | | unsp | | | narcot | | | ics, | | | accide | | | ntal, | | | init | | | | | | Subacu | | | te | | | osteom | | | yeliti | | | s, | | | right | | | ankle | | | and | | | foot | | | | | | Other | | | chroni | | | c | | | osteom | | | yeliti | | | s, | | | right | | | ankle | | | and | | | foot | | | | | | Opioid | | | | | | depend | | | ence, | | | uncomp | | | licate | | | d 1 | | | Type | | | 2 | | | diabet | | | es | | | mellit | | | us | | | withou | | | t | | | compli | | | cation | | | s Feb | | | 22, | | | 2019 | | | [facility] | | | | | | [facility] | | | ED | | | [place] | | | [place] | | | Emerge | | | ncy | | | | | | medica | | | l | | | proble | | | m | | | Skin | | | Compla | | | int | | | | | | Hyperg | | | lycemi | | | a- | | | Sympto | | | matic | | | | | | Cellul | | | itis | | | of | | | right | | | lower | | | limb | | | | | | Other | | | acute | | | osteom | | | yeliti | | | s, | | | right | | | ankle | | | and | | | foot | | | Feb | | | 14, | | | 2019 | | | [facility] | | | ence | | | [facility] | | [facility] | [place] | | | [place] | | | Emerge | | | ncy | | | Foot | | | wound | | | | | | Cellul | | | itis, | | | unspec | | | ified | | | | | | Cellul | | | itis | | | of | | | left | | | lower | | | limb | | | Recent | | | | | | Inpati | | | ent | | | Visit | | | [facility] | | | yDate | | | Facili | | | ty | | | City | | | State | | | Type | | | Diagno | | | ses or | | | Chief | | | | | | Compla | | | int | | | Mar 6, | | | 2019 | | | Prov[facility] | | | ence | | | [facility] | | | [facility] | [place] | | | [place] | | | Surgic | | | al | | | Servic | | | es | | | Poison | | | ing by | | | unsp | | | narcot | | | ics, | | | accide | | | ntal, | | | init | | | | | | Opioid | | | | | | depend | | | ence, | | | uncomp | | | licate | | | d | | | Other | | | chroni | | | c | | | osteom | | | yeliti | | | s, | | | right | | | ankle | | | and | | | foot | | | 1 | | | Type 2 | | | | | | diabet | | | es | | | mellit | | | us | | | withou | | | t | | | compli | | | cation | | | s | | | Subacu | | | te | | | osteom | | | yeliti | | | s, | | | right | | | ankle | | | and | | | foot | | | Long | | | term | | | (curre | | | nt) | | | use of | | | | | | insuli | | | n | | | Other | | | psycho | | | active | | | | | | substa | | | nce | | | abuse, | | | | | | uncomp | | | licate | | | d | | | Nicoti | | | ne | | | depend | | | ence, | | | unspec | | | ified, | | | | | | uncomp | | | licate | | | d Feb | | | 14, | | | 2019 | | | [facility] | | | ence | | | [facility] | | | [facility] | [place] | | | [place] | | | Surgic | | | al | | | Servic | | | es | | | Cellul | | | itis | | | of | | | left | | | lower | | | limb | | | | | | Cellul | | | itis, | | | unspec | | | ified | | | | | | Other | | | acute | | | osteom | | | yeliti | | | s, | | | right | | | ankle | | | and | | | foot | | | | | | Chroni | | | c pain | | | due | | | to | | | trauma | | | | | | Syring | | | omyeli | | | a and | | | syring | | | obulbi | | | a 1 | | | Type | | | 2 | | | diabet | | | es | | | mellit | | | us | | | with | | | hyperg | | | lycemi | | | a | | | Care | | | TeamPr | | | ovider | | | | | | Specia | | | lty | | | Phone | | | Fax | | | Servic | | | e | | | Dates | | | SANABRIA, | | | LAKEISHA | | | T., MD | | | | | | Family | | | | | | Medici | | | ne | | | [phone] | | | [phone] | | | [phone] | | | Curren | | | t | | | Colle[facility] | | | tive | | | Portal | | | This | | | patien | | | t has | | | regist | | | ered | | | at the | | | | | | Prov[facility] | | | ence | | | [facility] | [facility] | [facility] | | | l | | | [facility] | | | | | | Emerge | | | ncy | | | Depart | | | ment | | | For | | | more | | | inform | | | ation | | | visit: | | | | | | https: | | | //prov | | | .colle | | | ctivem | | | edical | | | [email or web address] | | | otify/ | | | [id number] | | | [email or web address] | | | [phone] | | | [id number] | | | [id number] | | | [email or web address] | | | | | | PLEASE | | | NOTE: | | | 1. | | | Any | | | care | | | recomm | | | endati | | | ons | | | and | | | other | | | clinic | | | al | | | inform | | | ation | | | are | | | provid | | | ed as | | | guidel | | | will | | | or for | | | | | | histor | | | ical | | | purpos | | | es | | | only, | | | and | | | provid | | | ers | | | should | | | | | | exerci | | | se | | | their | | | own | | | clinic | | | al | | | judgme | | | nt | | | when | | | provid | | | ing | | | care. | | | 2. | | | You | | | may | | | only | | | use | | | this | | | inform | | | ation | | | for | | | purpos | | | es of | | | treatm | | | ent, | | | paymen | | | t or | | | health | | | care | | | operat | | | ions | | | activi | | | ties, | | | and | | | subjec | | | t to | | | the | | | limita | | | tions | | | of | | | applic | | | able | | | Collec | | | tive | | | Polici | | | es. | | | 3. | | | You | | | should | | | | | | consul | | | t | | | direct | | | ly | | | with | | | the | | | organi | | | zation | | | that | | | provid | | | ed a | | | care | | | guidel | | | ine or | | | other | | | | | | clinic | | | al | | | histor | | | y with | | | any | | | questi | | | ons | | | about | | | additi | | | onal | | | inform | | | ation | | | or | | | accura | | | cy or | | | comple | | | teness | | | of | | | inform | | | ation | | | provid | | | ed.? | | | 2019 | | | [facility] | | | tive | | | Medica | | | l | | | Techn[employer] | | | logies | | | , Inc[employer] | | | - | | | [email or web address] | | | llecti | | | vemedi | | | [email or web address] | | | m | +---+--------+ + +---+ +---+ + | LABS - EXTERNAL SCAN | | 04/24/2019 | | Results for this | | | | 12:00 AM | | procedure are in the | | | | PDT | | results section. | + +---+ +---+ + documented in this encounter Results Culture, Urine (11/02/2019 4:10 AM PST) + + + + + + | Component | Value | Ref Range | Performed | Pathologist | | | | | At | Signature | + + + + + + | Culture | 10,000 CFU/ml Mixed Gram | | [facility] | | | | Positive FloraComment: | | [facility] | | | | Suggests contamination | | MEDICAL | | | | with urogenital or skin | | CENTER - | | | | ginette.No further work-up | | LABORATORY | | | | to follow. | | | | + + + + + + + + | Specimen | + + | Urine - Urine | | specimen obtained by | | clean catch | | procedure (specimen) | + + + + + + + | Performing | Address | City/State/Zipcode | Phone Number | | Organization | | | | + + + + + | [facility] | [address] | [place] | [phone] | | [facility] | | [address] | | | - LABORATORY | | | | + + + + + Drugs of Abuse, Screen, Urine (11/02/2019 4:10 AM PST) + + + + + + | Component | Value | Ref Range | Performed | Pathologist | | | | | At | Signature | + + + + + + | Amphetamine | Positive (A) | Negative | [facility] | | | Screen, | | | [facility] | | | Urine | | | MEDICAL | | | | | | CENTER - | | | | | | LABORATORY | | + + + + + + | Barbiturate | Negative | Negative | [facility] | | | s Screen, | | | [facility] | | | Urine | | | MEDICAL | | | | | | CENTER - | | | | | | LABORATORY | | + + + + + + | Benzodiazep | Negative | Negative | [facility] | | | will | | | [facility] | | | Screen, | | | MEDICAL | | | Urine | | | CENTER - | | | | | | LABORATORY | | + + + + + + | Cannabinoid | Negative | Negative | [facility] | | | s Screen, | | | [facility] | | | Urine | | | MEDICAL | | | | | | CENTER - | | | | | | LABORATORY | | + + + + + + | Cocaine | Negative | Negative | [facility] | | | Screen, | | | [facility] | | | Urine | | | MEDICAL | | | | | | CENTER - | | | | | | LABORATORY | | + + + + + + | Methadone | Negative | Negative | [facility] | | | Screen, | | | [facility] | | | Urine | | | MEDICAL | | | | | | CENTER - | | | | | | LABORATORY | | + + + + + + | Opiates | Negative | Negative | [facility] | | | Screen, | | | [facility] | | | Urine | | | MEDICAL | | | | | | CENTER - | | | | | | LABORATORY | | + + + + + + + + | Specimen | + + | Urine - Urine | | specimen obtained by | | clean catch | | procedure (specimen) | + + + + + + + | Performing | Address | City/State/Zipcode | Phone Number | | Organization | | | | + + + + + | [facility] | [address] | [place] | [phone] | | [facility] | | [address] | | | - LABORATORY | | | | + + + + + Urinalysis with Microscopic with Culture if Indicated (11/02/2019 4:10 AM PST) + + + + + + | Component | Value | Ref Range | Performed | Pathologist | | | | | At | Signature | + + + + + + | Color, | Yellow | Light Yellow, | [facility] | | | Urine | | Yellow, Straw | [facility] | | | | | | MEDICAL | | | | | | CENTER - | | | | | | LABORATORY | | + + + + + + | Clarity, | Cloudy (A) | Clear | [facility] | | | Urine | | | [facility] | | | | | | MEDICAL | | | | | | CENTER - | | | | | | LABORATORY | | + + + + + + | pH, Urine | 5.0 | 5.0 - 8.0 | [facility] | | | | | | [facility] | | | | | | MEDICAL | | | | | | CENTER - | | | | | | LABORATORY | | + + + + + + | Specific | 1.021 | 1.001 - 1.030 | [facility] | | | [place], | | | [facility] | | | Urine | | | MEDICAL | | | | | | CENTER - | | | | | | LABORATORY | | + + + + + + | Protein, | 30 mg/dL (A) | Negative | [facility] | | | Urine | | | [facility] | | | | | | MEDICAL | | | | | | CENTER - | | | | | | LABORATORY | | + + + + + + | Blood, | Small (A) | Negative | [facility] | | | Urine | | | [facility] | | | | | | MEDICAL | | | | | | CENTER - | | | | | | LABORATORY | | + + + + + + | Glucose, | >=500 mg/dL (A) | Negative | [facility] | | | Urine | | | [facility] | | | | | | MEDICAL | | | | | | CENTER - | | | | | | LABORATORY | | + + + + + + | Ketones, | Trace (A) | Negative | [facility] | | | Urine | | | [facility] | | | | | | MEDICAL | | | | | | CENTER - | | | | | | LABORATORY | | + + + + + + | Bilirubin, | Negative | Negative | [facility] | | | Urine | | | [facility] | | | | | | MEDICAL | | | | | | CENTER - | | | | | | LABORATORY | | + + + + + + | Nitrite, | Negative | Negative | [facility] | | | Urine | | | [facility] | | | | | | MEDICAL | | | | | | CENTER - | | | | | | LABORATORY | | + + + + + + | Leukocyte | Trace (A) | Negative | [facility] | | | Esterase, | | | [facility] | | | Urine | | | MEDICAL | | | | | | CENTER - | | | | | | LABORATORY | | + + + + + + | Urobilinoge | Negative | 0.2 mg/dL, 1.0 | [facility] | | | n, Urine | | mg/dL, Negative | [facility] | | | | | | MEDICAL | | | | | | CENTER - | | | | | | LABORATORY | | + + + + + + | White Blood | 15-25 (A) | 0 - 2 /HPF | [facility] | | | Cells, | | | [facility] | | | Urine | | | MEDICAL | | | | | | CENTER - | | | | | | LABORATORY | | + + + + + + | White Blood | Few (A) | None Seen /HPF | [facility] | | | Cell | | | [facility] | | | Clumps, | | | MEDICAL | | | Urine | | | CENTER - | | | | | | LABORATORY | | + + + + + + | Red Blood | 10-15 (A) | 0 - 2 /HPF | [facility] | | | Cells, | | | [facility] | | | Urine | | | MEDICAL | | | | | | CENTER - | | | | | | LABORATORY | | + + + + + + | Squamous | >100 (A) | 0 - 2 /LPF | [facility] | | | Epithelial | | | [facility] | | | Cells, | | | MEDICAL | | | Urine | | | CENTER - | | | | | | LABORATORY | | + + + + + + | Bacteria, | 1+ (A) | Negative /HPF | [facility] | | | Urine | | | [facility] | | | | | | MEDICAL | | | | | | CENTER - | | | | | | LABORATORY | | + + + + + + | Mucus, | Present (A) | Negative /LPF | [facility] | | | Urine | | | [facility] | | | | | | MEDICAL | | | | | | CENTER - | | | | | | LABORATORY | | + + + + + + | Urine | Urine Culture Set Up | | [facility] | | | Comment | | | [facility] | | | | | | MEDICAL | | | | | | CENTER - | | | | | | LABORATORY | | + + + + + + + + | Specimen | + + | Urine - Urine | | specimen obtained by | | clean catch | | procedure (specimen) | + + + + + + + | Performing | Address | City/State/Zipcode | Phone Number | | Organization | | | | + + + + + | [facility] | [address] | [place], [place] | [phone] | | [facility] | | [address] | | | - LABORATORY | | | | + + + + + Troponin I (11/02/2019 1:54 AM PST) + + + + + + | Component | Value | Ref Range | Performed | Pathologist | | | | | At | Signature | + + + + + + | Troponin I | 0.05Comment: | <0.06 ng/mL | [facility] | | | | Comment:Reference | | [facility] | | | | Ranges: 0.00-0.06 = | | MEDICAL | | | | NORMAL >0.06 = | | CENTER - | | | | SUSPICIOUS FOR | | LABORATORY | | | | MYOCARDIAL DAMAGE NOTE: | | | | | | Values greater than | | | | | | 0.78 ng/mL have been | | | | | | shown to be strongly | | | | | | associated with acute | | | | | | myocardial infarction. | | | | | | The [employer] [employer] | | | | | | Cardiology (ACC) | | | | | | recommends a decision | | | | | | limit of 0.06 ng/mL for | | | | | | this assay. Results | | | | | | greater than 0.06 can | | | | | | reflect a pre-infarct | | | | | | acute coronary syndrome, | | | | | | but can also reflect | | | | | | myocardial necrosis or | | | | | | injury that is not due | | | | | | to coronary artery | | | | | | disease. Some of these | | | | | | causes are sepsis, | | | | | | hypocolemia, atrial | | | | | | fibrillation, heart | | | | | | failure, pulmonary | | | | | | embolism, myocarditis, | | | | | | myocardial contusion, | | | | | | and renal failure. The | | | | | | diagnosis of myocardial | | | | | | infarction should be | | | | | | based on a combination | | | | | | of the patient's | | | | | | clinical presentation | | | | | | and the clinical | | | | | | laboratory test results | | | | | | (especially serial | | | | | | troponin levels). | | | | + + + + + + + + | Specimen | + + | Blood | + + + + + + + | Performing | Address | City/State/Zipcode | Phone Number | | Organization | | | | + + + + + | [facility] | [address] | [place] | [phone] | | [facility] | | [address] | | | - LABORATORY | | | | + + + + + D-Dimer (11/02/2019 1:54 AM PST) + + + + + + | Component | Value | Ref Range | Performed | Pathologist | | | | | At | Signature | + + + + + + | D-Dimer | 0.39Comment: This | <=0.50 ug/mL | [facility] | | | Quantitativ | quantitative D-Dimer | FEU | [facility] | | | e | assay has been evaluated | | MEDICAL | | | | for screening for | | CENTER - | | | | venous thrombotic | | LABORATORY | | | | disease, and may be | | | | | | useful in ruling out, | | | | | | but not ruling in | | | | | | disease. Values less | | | | | | than 0.50 ug/mL FEU | | | | | | (Fibrinogen Equivalent | | | | | | Units) have a negative | | | | | | predictive value of | | | | | | approximately 95% for | | | | | | ruling out large | | | | | | pulmonary emboli or | | | | | | proximal deep vein | | | | | | thrombosis. Distal DVT | | | | | | are not excluded. An | | | | | | elevated D-dimer can be | | | | | | present in patients with | | | | | | liver disease, | | | | | | , eclampsia, | | | | | | heart disease and some | | | | | | cancers among other | | | | | | conditions. The presence | | | | | | of rheumatoid factor at | | | | | | a level >50 IU/mL may | | | | | | falsely elevate the | | | | | | determined D-dimer | | | | | | levels. | | | | + + + + + + + + | Specimen | + + | Blood | + + + + + + + | Performing | Address | City/State/Zipcode | Phone Number | | Organization | | | | + + + + + | [facility] | [address] | [place] | [phone] | | [facility] | | [address] | | | - LABORATORY | | | | + + + + + Beta Hydroxybutyrate, Quant (11/02/2019 1:54 AM PST) + +-------+ + + + | Component | Value | Ref Range | Performed | Pathologist | | | | | At | Signature | + +-------+ + + + | Beta | 0.26 | 0.02 - 0.27 | [facility] | | | Hydroxybuty | | mmol/L | [facility] | | | rate | | | MEDICAL | | | [...] + | [facility] | [address] | [place] | [phone] | | [facility] | | [address] | | | - LABORATORY | | | | + + + + + Basic Metabolic Panel (11/02/2019 1:54 AM PST) + + + + + + | Component | Value | Ref Range | Performed | Pathologist | | | | | At | Signature | + + + + + + | Na | 136 | 136 - 145 | [facility] | | | | | mmol/L | [facility] | | | | | | MEDICAL | | | | | | CENTER - | | | | | | LABORATORY | | + + + + + + | K | 4.1 | 3.4 - 5.1 | [facility] | | | | | mmol/L | [facility] | | | | | | MEDICAL | | | | | | CENTER - | | | | | | LABORATORY | | + + + + + + | Cl | 94 (L) | 98 - 107 mmol/L | [facility] | | | | | | [facility] | | | | | | MEDICAL | | | | | | CENTER - | | | | | | LABORATORY | | + + + + + + | CO2 | 32 (H) | 20 - 31 mmol/L | [facility] | | | | | | [facility] | | | | | | MEDICAL | | | | | | CENTER - | | | | | | LABORATORY | | + + + + + + | Anion Gap | 10 | 3 - 16 mmol/L | [facility] | | | | | | [facility] | | | | | | MEDICAL | | | | | | CENTER - | | | | | | LABORATORY | | + + + + + + | Glucose | 178 (H) | 60 - 106 mg/dL | [facility] | | | | | | [facility] | | | | | | MEDICAL | | | | | | CENTER - | | | | | | LABORATORY | | + + + + + + | BUN | 21 | 9 - 23 mg/dL | [facility] | | | | | | [facility] | | | | | | MEDICAL | | | | | | CENTER - | | | | | | LABORATORY | | + + + + + + | Creatinine | 3.04 (H) | 0.70 - 1.30 | [facility] | | | | | mg/dL | [facility] | | | | | | MEDICAL | | | | | | CENTER - | | | | | | LABORATORY | | + + + + + + | eGFR, | 22 (L)Comment: | >=60 | [facility] | | | non- | GLOMERULAR FILTRATION | mL/min/1.73m2 | [facility] | | | [place] | RATE,ESTIMATED | | MEDICAL | | | | mL/min/1.72s3Fmgn than | | CENTER - | | | | 60 Chronic kidney | | LABORATORY | | | | disease,if found over a | | | | | | 3-month period.Less than | | | | | | 15 Kidney failureFor | | | | | | | | | | | | Americans,multiply the | | | | | | calculated GFR by 1.21. | | | | | | | | | | + + + + + + | Calcium | 10.2 | 8.7 - 10.4 | [facility] | | | | | mg/dL | [facility] | | | | | | MEDICAL | | | | | | CENTER - | | | | | | LABORATORY | | + + + + + + | BUN/Creatin | 6.9 | | [facility] | | | ine Ratio | | | [facility] | | | | | | MEDICAL | | | | | | CENTER - | | | | | | LABORATORY | | + + + + + + + + | Specimen | + + | Blood | + + + + + + + | Performing | Address | City/State/Zipcode | Phone Number | | Organization | | | | + + + + + | [facility] | [address] | [place] | [phone] | | [facility] | | [address] | | | - LABORATORY | | | | + + + + + CBC with Differential (11/02/2019 1:54 AM PST) + + + + + + | Component | Value | Ref Range | Performed | Pathologist | | | | | At | Signature | + + + + + + | White Blood | 16.9 (H) | 4.0 - 11.0 K/uL | [facility] | | | Cells | | | [facility] | | | | | | MEDICAL | | | | | | CENTER - | | | | | | LABORATORY | | + + + + + + | Red Blood | 5.52 | 4.30 - 5.70 | [facility] | | | Cells | | M/uL | [facility] | | | | | | MEDICAL | | | | | | CENTER - | | | | | | LABORATORY | | + + + + + + | Hemoglobin | 15.7 | 13.5 - 18.0 | [facility] | | | | | g/dL | [facility] | | | | | | MEDICAL | | | | | | CENTER - | | | | | | LABORATORY | | + + + + + + | Hematocrit | 46.6 | 40.0 - 51.0 % | [facility] | | | | | | [facility] | | | | | | MEDICAL | | | | | | CENTER - | | | | | | LABORATORY | | + + + + + + | MCV | 84.4 | 83.0 - 101.0 fL | [facility] | | | | | | [facility] | | | | | | MEDICAL | | | | | | CENTER - | | | | | | LABORATORY | | + + + + + + | MCH | 28.4 | 28.0 - 35.0 pg | [facility] | | | | | | [facility] | | | | | | [facility] | | | | | | [facility] - | | | | | | LABORATORY | | + + + + + + | MCHC | 33.7 | 32.0 - 36.0 | [facility] | | | | | g/dL | [facility] | | | | | | [facility] | | | | | | [facility] - | | | | | | LABORATORY | | + + + + + + | RDW-CV | 15.4 (H) | <15.0 % | [facility] | | | | | | [facility] | | | | | | [facility] | | | | | | [facility] - | | | | | | LABORATORY | | + + + + + + | RDW-SD | 47.1 (H) | 35.1 - 46.3 fL | [facility] | | | | | | [facility] | | | | | | [facility] | | | | | | [facility] - | | | | | | LABORATORY | | + + + + + + | Platelet | 274 | 140 - 440 K/uL | [facility] | | | Count | | | [facility] | | | | | | [facility] | | | | | | [facility] - | | | | | | LABORATORY | | + + + + + + | MPV | 11.3 | 6.5 - 12.4 fL | [facility] | | | | | | [facility] | | | | | | [facility] | | | | | | [facility] - | | | | | | LABORATORY | | + + + + + + | % | 77.3 | 45.0 - 82.0 % | [facility] | | | Neutrophils | | | [facility] | | | | | | [facility] | | | | | | [facility] - | | | | | | LABORATORY | | + + + + + + | % | 12.1 (L) | 20.0 - 45.0 % | [facility] | | | Lymphocytes | | | [facility] | | | | | | [facility] | | | | | | CENTER - | | | | | | LABORATORY | | + + + + + + | % Monocytes | 8.5 | 4.0 - 12.0 % | [facility] | | | | | | [facility] | | | | | | [facility] | | | | | | [facility] - | | | | | | LABORATORY | | + + + + + + | % | 0.9 | 0.0 - 5.0 % | [facility] | | | Eosinophils | | | [facility] | | | | | | [facility] | | | | | | [facility]ENTER - | | | | | | LABORATORY | | + + + + + + | % Basophils | 0.3 | 0.0 - 1.0 % | [facility] | | | | | | [facility] | | | | | | [facility] | | | | | | [facility] - | | | | | | LABORATORY | | + + + + + + | % Immature | 0.9 (H)Comment: | 0.0 - 0.4 % | [facility] | | | Granulocyte | Preliminary studies have | | [facility] | | | s | indicated the IG% | | MEDICAL | | | | and/or IG# show promise | | CENTER - | | | | as an early indicator | | LABORATORY | | | | for infection. | | | | + + + + + + | Absolute | 13.05 (H) | 1.80 - 8.50 | [facility] | | | Neutrophils | | K/uL | [facility] | | | | | | [facility] | | | | | | CENTER - | | | | | | LABORATORY | | + + + + + + | Absolute | 2.04 | 0.60 - 3.20 | [facility] | | | Lymphocytes | | K/uL | [facility] | | | | | | [facility] | | | | | | CENTER - | | | | | | LABORATORY | | + + + + + + | Absolute | 1.44 (H) | 0.00 - 1.00 | [facility] | | | Monocytes | | K/uL | [facility] | | | | | | [facility] | | | | | | CENTER - | | | | | | LABORATORY | | + + + + + + | Absolute | 0.15 | 0.00 - 0.40 | [facility] | | | Eosinophils | | K/uL | [facility] | | | | | | [facility] | | | | | | CENTER - | | | | | | LABORATORY | | + + + + + + | Absolute | 0.05 | 0.00 - 0.10 | [facility] | | | Basophils | | K/uL | [facility] | | | | | | [facility] | | | | | | CENTER - | | | | | | LABORATORY | | + + + + + + | Absolute | 0.15 (H) | 0.00 - 0.03 | [facility] | | | Immature | | K/uL | [facility] | | | Granulocyte | | | MEDICAL | | | s | | | CENTER - | | | | | | LABORATORY | | + + + + + + | % nRBC | 0 | 0 - 2 per 100 | [facility] | | | | | WBCs | [facility] | | | | | | [facility] | | | | | | CENTER - | | | | | | LABORATORY | | + + + + + + | Absolute | 0.00 | 0.00 - 0.01 | [facility] | | | nRBC | | K/uL | [facility] | | | | | | [facility] | | | | | | CENTER - | | | | | | LABORATORY | | + + + + + + + + | Specimen | + + | Blood | + + + + + + + | Performing | Address | City/State/Zipcode | Phone Number | | Organization | | | | + + + + + | [facility] | [address] | [place] | [phone] | | [facility] | | [address] | | | - LABORATORY | | | | + + + + + XR Chest AP Portable (11/02/2019 1:44 AM PST) + + | Specimen | + + | | + + + + + | Impressions | Performed At | + + + | No acute disease. Dictated and Signed by: Jason Martinez MD | [facility] | | Electronically signed: 11/02/2019 8:27 AM | | + + + + + + | Narrative | Performed At | + + + | CLINICAL INFORMATION: CHEST PAIN. COMPARISON: 09/04/2018 and | [facility] | | 03/04/2017. FINDINGS: Portable frontal chest radiograph | | | Lungs: No focal airspace disease, pleural effusion, or pneumothorax. | | | Heart/mediastinum: Cardiac silhouette is of normal size. Central | | | pulmonary vasculature has a normal appearance. Bones: No acute | | | osseous abnormality appreciated. | | + + + + + | Procedure Note | + + | Jimbo Hoover Results In - 11/02/2019 8:30 AM PST | | CLINICAL INFORMATION: CHEST PAIN. | | | | COMPARISON: 09/04/2018 and 03/04/2017. | | | | FINDINGS: | | Portable frontal chest radiograph | | | | Lungs: No focal airspace disease, pleural effusion, or pneumothorax. | | | | Heart/mediastinum: Cardiac silhouette is of normal size. Central pulmonary | | vasculature has a normal appearance. | | | | Bones: No acute osseous abnormality appreciated. | | | | IMPRESSION: | | No acute disease. | | | | Dictated and Signed by: Jason Martinez MD | | Electronically signed: 11/02/2019 8:27 AM | + + + +---------+ + + | Performing | Address | City/State/Zipcode | Phone Number | | Organization | | | | + +---------+ + + | [facility] | | | | + +---------+ + + POC Glucose (11/02/2019 1:25 AM PST) + +---------+ + + + | Component | Value | Ref Range | Performed | Pathologist | | | | | At | Signature | + +---------+ + + + | Glucose, | 220 (H) | 70 - 109 mg/dL | [facility] | | | P[facility] | | | [facility] | | | | | | [facility] | | | | | | [facility] - | | | | | | LABORATORY | | + +---------+ + + + + + | Specimen | + + | Blood | + + + + + + + | Performing | Address | City/State/Zipcode | Phone Number | | Organization | | | | + + + + + | [facility] | [address] | [place] | [phone] | | [facility] | | [address] | | | - LABORATORY | | | | + + + + + ECG 12 lead (11/02/2019 1:23 AM PST) + + + + + + | Component | Value | Ref Range | Performed | Pathologist | | | | | At | Signature | + + + + + + | VENTRICULAR | 111 | BPM | [facility] | | | RATE EKG | | | | | + + + + + + | ATRIAL RATE | 111 | BPM | [facility] | | + + + + + + | P-R | 160 | ms | [facility] | | | INTERVAL | | | | | + + + + + + | QRS | 130 | ms | [facility] | | | DURATION | | | | | + + + + + + | Q-T | 354 | ms | [facility] | | | INTERVAL | | | | | + + + + + + | Q-T | 481 | ms | [facility] | | | INTERVAL | | | | | | (CORRECTED) | | | | | + + + + + + | P WAVE AXIS | 66 | degrees | [facility] | | + + + + + + | QRS AXIS | 13 | degrees | [facility] | | + + + + + + | T AXIS | 57 | degrees | [facility] | | + + + + + + | INTERPRETAT | Sinus tachycardiaRight | | [facility] | | | ION TEXT | bundle branch | | | | | | blockAbnormal ECGWhen | | | | | | compared with ECG of | | | | | | 05-FEB-2018 15:12,No | | | | | | significant change was | | | | | | foundConfirmed by | | | | | | YAZMIN FERNANDEZ MD ([id number]) | | | | | | on 11/02/2019 7:10:59 AM | | | | + + [...] | | | + +---------+ + + LABS - EXTERNAL SCAN (04/24/2019 12:00 AM PDT) + + + | Narrative | Performed At | + + + | Ordered by an | | | unspecified provider. | | + + + documented in this encounter Visit Diagnoses + + | Diagnosis | + + | Atypical chest pain - Primary Other chest pain | + + | Poorly controlled diabetes mellitus (HCC) Type II or unspecified type diabetes | | mellitus without mention of complication, not stated as uncontrolled | + + | Acute renal failure, unspecified acute renal failure type (HCC) | + + | Leukocytosis, unspecified type | + + documented in this encounter Administered Medications + +---------+ +--------+-------+------+ | Medication Order | MAR | Action | Dose | Rate | Site | | | Action | Date | | | | + +---------+ +--------+-------+------+ | sodium chloride 0.9% (NS) bolus | New Bag | 11/02/19 | 1,000 | 1000 | | | 1,000 mL 1,000 mL, Intravenous, | | 20 2:47 | mLs | mL/hr | | | Administer over 1 Hours, ONCE, | | AM PST | | | | | 2/11/20 at 0240, For 1 dose | | | | | | + +---------+ +--------+-------+------+ +---+---+ | | | +---+---+ documented in this encounter
--- OUTSIDE RECORDS SUMMARY | ~2020-06-16 | XMS | Encounter Summary ---
Demographics + + + | Address | [address] | | | [place] [address] | + + + | Home Phone | | + + + | Preferred Language | Unknown | + + + | Marital Status | | + + + | Hinduism Affiliation | Unknown | + + + | Race | White | + + + | Ethnic Group | Not or | + + + Author + + + | Author | [facility] | | | and [place] | + + + | Organization | [facility] | | | [...] [place], | | | | | [place] [address] | | + + + + + Care Team Providers + +------+ + | Care J2Ee Application Developer Name | Role | Phone | + +------+ + PCP | Unavailable | + +------+ + Encounter Details +--------+ + + + + | Date | Type | Department | Care Team | Description | +--------+ + + + + | 02/12/ | Hospital | [facility] | Dimitri Fischer, | Right shoulder | | 2017 | Encounter | MED CTR XRAY [address] | strain, initial | | | | [place] | [place], [place] | encounter; Other | | | | [place] [address] | [id number] | type of | | | | [phone] | Dimitri Fischer | osteoarthritis, | | | | | MD [place] [address] | unspecified site | | | | | [address] | | | | | | [place] [address] | | | | | | [phone] | | | | | | | | +--------+ + + + + Social [...] + + + +---------+ + + | B-D ULTRAFINE III | USE 1 TO 2 TIMES | 100 | 0 | 07/28/20 | | | SHORT PEN 31G X 8 MM | DAILY | each | | 15 | 7 | + + + +---------+ + + | cholecalciferol | Take 1 capsule by | 90 | 3 | 07/14/20 | | | (VITAMIN D-3) 1,000 | mouth Daily. | capsule | | 15 | 9 | | units capsule | | | | | | + + + +---------+ + + | gabapentin | take 1 capsule by | 90 | 2 | 07/03/20 | | | (NEURONTIN) 300 mg | mouth three times a | capsule | | 15 | 7 | | capsule | day | | | | | + + + +---------+ + + | glipiZIDE | take 1 tablet by | | 0 | 02/27/20 | | | (GLUCOTROL) 10 MG | mouth twice a day | | | 16 | 8 | | tablet | | | | | | + + + +---------+ + + | glucose blood | Use as dir | 100 | 0 | 06/27/20 | | | test strips (TERRI | | each | | 15 | 9 | | CONTOUR TEST) strip | | | | | | + + + +---------+ + + | HYDROmorphone | Take 1 tablet by | 60 | 0 | 05/14/20 | | | (DILAUDID) 4 MG | mouth EVERY 4 TO 6 | tablet | | 17 | 7 | | tablet | HOURS NEEDED for | | | | | | | Pain. | | | | | + + + +---------+ + + | HYDROmorphone | Take 1 tablet by | 50 | 0 | 05/14/20 | | | (DILAUDID) 4 MG | mouth every 6 hours | tablet | | 17 | 7 | | tablet | as needed for Pain. | | | | | + + + +---------+ + + | insulin glargine | Inject 80 Units | 15 mL | 0 | 07/14/20 | | | (LANTUS SOLOSTAR) | under the skin | | | 15 | 7 | | 100 units/mL | nightly. | | | | | | injection (pen) | | | | | | + + + +---------+ + + | lisinopril | Take 5 mg by mouth | | 0 | | | | (PRINIVIL, ZESTRIL) | Daily. | | | | 7 | | 5 mg tablet | | | | | | + + + +---------+ + + | metformin | Take 1,000 mg by | | 0 | | | | (GLUCOPHAGE) 1000 MG | mouth 2 times daily | | | | 9 | | tablet | (with breakfast & | | | | | | | dinner). | | | | | + + + +---------+ + + | methadone 10 mg | Take 0.5 tablets by | 45 | 0 | 07/14/20 | | | tablet | mouth every 8 hours | tablet | | 15 | 8 | | | as needed. | | | | | + + + +---------+ + + | ondansetron | Take 4 mg by mouth | | 0 | 10/03/19 | | | (ZOFRAN) 4 mg tablet | every 8 hours as | | | 16 | 8 | | | needed for Nausea. | | | | | + + + +---------+ + + | oxyCODONE | Take 1 tablet by | 120 | 0 | 07/14/20 | | | (ROXICODONE) 30 MG | mouth every 6 hours | tablet | | 15 | 9 | | immediate release | as needed for Pain. | | | | | | tablet | | | | | | + + + +---------+ + + | SENNA LAX 8.6 MG | take 4 tablets by | | 0 | 01/23/20 | | | tablet | mouth UP TO 2 TIMES | | | 16 | 0 | | | A DAY NEEDED FOR | | | | | | | CONSTIPATION | | | | | + + + +---------+ + + | simvastatin | Take 20 mg by mouth | | 0 | | | | (ZOCOR) 40 mg tablet | nightly. | | | | 8 | + + + +---------+ + + | testosterone | Inject into the | | 0 | | | | cypionate | muscle every 14 | | | | 7 | | (DEPO-TESTOSTERONE) | days. Per patient | | | | | | 200 mg/mL injection | takes 0.5 ml twice | | | | | | | weekly from a multi | | | | | | | dose vial that is | | | | | | | 200ml total. | | | | | + + + +---------+ + + documented as of this encounter Plan of Treatment Not on filedocumented as of this encounter Procedures + +--------+ + + + | Procedure Name | Priori | Date/Time | Associated Diagnosis | Comments | | | ty | | | | + +--------+ + + + | XR SHOULDER LEFT 2 + | Routin | 02/12/2017 | Right shoulder | Results for this | | VW | e | 4:28 PM | strain, initial | procedure are in the | | | | PDT | encounter Other | results section. | | | | | type of | | | | | | osteoarthritis, | | | | | | unspecified site | | + +--------+ + + + | XR SHOULDER RIGHT 2 | Routin | 02/12/2017 | Right shoulder | Results for this | | + VW | e | 4:28 PM | strain, initial | procedure are in the | | | | PDT | encounter Other | results section. | | | | | type of | | | | | | osteoarthritis, | | | | | | unspecified site | | + +--------+ + + + documented in this encounter Results XR Shoulder Left 2 + Vw (02/12/2017 4:28 PM PDT) + + | Specimen | + + | | + + + + + | Narrative | Performed At | + + + | EXAM:XR SHOULDER RIGHT 2 + VW, XR SHOULDER LEFT 2 + VW CLINICAL | [facility] | | HISTORY: Right shoulder strain, initial encounter. Other type of | | | osteoarthritis, unspecified site COMPARISON: None. FINDINGS: | | | Right shoulder: 3 views. Normal mineralization. No acute | | | fracture. No current dislocation. No bone erosion or destruction. | | | There are degenerative changes in the acromioclavicular joint. | | | These are [id number]-jpufovbt. Mild to moderate subacromial | | | enthesopathy. The soft tissues are unremarkable. There are no | | | radiopaque foreign bodies. Left shoulder: 3 views. Normal | | | mineralization. No acute fracture. No current dislocation. No | | | bone erosion or destruction. Mild to moderate degenerative changes | | | in the acromioclavicular joint. Small ossification projecting near | | | the margin of the glenoid. This may be from remote trauma. The | | | soft tissues are unremarkable. There are no radiopaque foreign | | | bodies. IMPRESSION - No acute fracture or current dislocation | | | in either shoulder. Mild to moderate degenerative changes in both | | | acromioclavicular joints. Mild right subacromial enthesopathy. | | | Dictated and Signed by: Jed Jon MD Electronically signed: | | | 02/12/2017 4:56 PM | | + + + + + | Procedure Note | + + | Kiko, Rad Results In 02/12/2017 4:59 PM PDT EXAM:XR SHOULDER RIGHT 2 + VW, XR | | SHOULDER LEFT 2 + VWCLINICAL HISTORY: Right shoulder strain, initial encounter. Other | | type ofosteoarthritis, unspecified siteCOMPARISON: None.FINDINGS: Right shoulder: 3 | | views. Normal mineralization. No acute fracture. No currentdislocation. No bone | | erosion or destruction. There are degenerative changes inthe acromioclavicular joint. | | These are nwoz-be-oesguchg. Mild to moderatesubacromial enthesopathy. The soft tissues | | are unremarkable. There are noradiopaque foreign bodies.Left shoulder: 3 views. | | Normal mineralization. No acute fracture. No currentdislocation. No bone erosion or | | destruction. Mild to moderate degenerativechanges in the acromioclavicular joint. | | Small ossification projecting near themargin of the glenoid. This may be from remote | | trauma. The soft tissues areunremarkable. There are no radiopaque foreign | | bodies.IMPRESSION -No acute fracture or current dislocation in either shoulder.Mild to | | moderate degenerative changes in both acromioclavicular joints.Mild right subacromial | | enthesopathy.Dictated and Signed by: Jed Jon MD Electronically signed: | | 02/12/2017 4:56 PM | |Left shoulder: 3 views. Normal mineralization. No acute fracture. No current | |dislocation. No bone erosion or destruction. Mild to moderate degenerative | |changes in the acromioclavicular joint. Small ossification projecting near the | |margin of the glenoid. This may be from remote trauma. The soft tissues are | |unremarkable. There are no radiopaque foreign bodies. | | | |IMPRESSION - | | | |No acute fracture or current dislocation in either shoulder. | | | |Mild to moderate degenerative changes in both acromioclavicular joints. | | | |Mild right subacromial enthesopathy. | | | |Dictated and Signed by: Jed Jon MD | | Electronically signed: 02/12/2017 4:56 PM | + + + +---------+ + + | Performing | Address | City/State/Zipcode | Phone Number | | Organization | | | | + +---------+ + + | [facility] | | | | + +---------+ + + XR Shoulder Right 2 + Vw (02/12/2017 4:28 PM PDT) + + | Specimen | + + | | + + + + + | Narrative | Performed At | + + + | EXAM:XR SHOULDER RIGHT 2 + VW, XR SHOULDER LEFT 2 + VW CLINICAL | [facility] | | HISTORY: Right shoulder strain, initial encounter. Other type of | | | osteoarthritis, unspecified site COMPARISON: None. FINDINGS: | | | Right shoulder: 3 views. Normal mineralization. No acute | | | fracture. No current dislocation. No bone erosion or destruction. | | | There are degenerative changes in the acromioclavicular joint. | | | These are tkzz-mm-fcmxnymj. Mild to moderate subacromial | | | enthesopathy. The soft tissues are unremarkable. There are no | | | radiopaque foreign bodies. Left shoulder: 3 views. Normal | | | mineralization. No acute fracture. No current dislocation. No | | | bone erosion or destruction. Mild to moderate degenerative changes | | | in the acromioclavicular joint. Small ossification projecting near | | | the margin of the glenoid. This may be from remote trauma. The | | | soft tissues are unremarkable. There are no radiopaque foreign | | | bodies. IMPRESSION - No acute fracture or current dislocation | | | in either shoulder. Mild to moderate degenerative changes in both | | | acromioclavicular joints. Mild right subacromial enthesopathy. | | | Dictated and Signed by: Jed Jon MD Electronically signed: | | | 02/12/2017 4:56 PM | | + + + + + | Procedure Note | + + | Kiko, Rad Results In - 02/12/2017 4:59 PM PDT EXAM:XR SHOULDER RIGHT 2 + VW, XR | | SHOULDER LEFT 2 + VWCLINICAL HISTORY: Right shoulder strain, initial encounter. Other | | type ofosteoarthritis, unspecified siteCOMPARISON: None.FINDINGS: Right shoulder: 3 | | views. Normal mineralization. No acute fracture. No currentdislocation. No bone | | erosion or destruction. There are degenerative changes inthe acromioclavicular joint. | | These are olhd-gx-zuyecixf. Mild to moderatesubacromial enthesopathy. The soft tissues | | are unremarkable. There are noradiopaque foreign bodies.Left shoulder: 3 views. | | Normal mineralization. No acute fracture. No currentdislocation. No bone erosion or | | destruction. Mild to moderate degenerativechanges in the acromioclavicular joint. | | Small ossification projecting near themargin of the glenoid. This may be from remote | | trauma. The soft tissues areunremarkable. There are no radiopaque foreign | | bodies.IMPRESSION -No acute fracture or current dislocation in either shoulder.Mild to | | moderate degenerative changes in both acromioclavicular joints.Mild right subacromial | | enthesopathy.Dictated and Signed by: Jed Jon MD Electronically signed: | | 02/12/2017 4:56 PM | |Left shoulder: 3 views. Normal mineralization. No acute fracture. No current | |dislocation. No bone erosion or destruction. Mild to moderate degenerative | |changes in the acromioclavicular joint. Small ossification projecting near the | |margin of the glenoid. This may be from remote trauma. The soft tissues are | |unremarkable. There are no radiopaque foreign bodies. | | | |IMPRESSION - | | | |No acute fracture or current dislocation in either shoulder. | | | |Mild to moderate degenerative changes in both acromioclavicular joints. | | | |Mild right subacromial enthesopathy. | | | |Dictated and Signed by: Jed Jon MD | | Electronically signed: 02/12/2017 4:56 PM | + + + +---------+ + + | Performing | Address | City/State/Zipcode | Phone Number | | Organization | | | | + +---------+ + + | [facility] | | | | + +---------+ + + documented in this encounter Visit Diagnoses + + | Diagnosis | + + | Right shoulder strain, initial encounter | + + | Other type of osteoarthritis, unspecified site | + + documented in this encounter"
--- OUTSIDE RECORDS SUMMARY | ~2020-06-16 | XMS | Encounter Summary ---
Demographics + + + | Address | [address] | | | [place] [address] | + + + | Home Phone | | + + + | Preferred Language | Unknown | + + + | Marital Status | | + + + | Latter Day Affiliation | Unknown | + + + | Race | White | + + + | Ethnic Group | Not or | + + + Author + + + | Author | [facility] | | | and [place] | + + + | Organization | [facility] | | [...] [place], | | | | | [place] [address] | | + + + + + Care Team Providers + +------+ + | Care Oil Well Logging Engineer Name | Role | Phone | + +------+ + | Russell Sanabria MD | PCP | | + +------+ + Encounter Details +--------+ + + + + | Date | Type | Department | Care Team | Description | +--------+ + + + + | 04/02/ | Orders Only | [facility] | Surendra Vaughn | Chronic kidney | | 2017 | | NEPHROLOGY [address] | M, DO [address] | disease, stage IV | | | | [address] | [address] [place] | (severe) (HCC) | | | | [place], [place] | [place] [address] | | | | | [address] | [phone] | | | | | [phone] | | | +--------+ + + + [...] | + +--------+ + + + | PROTEIN, URINE, 24HR | Routin | 04/02/2017 | Chronic kidney | Results for this | | | e | 1:53 PM | disease, stage IV | procedure are in the | | | | PDT | (severe) (HCC) | results section. | + +--------+ + + + | CREATININE | Routin | 04/02/2017 | Chronic kidney | Results for this | | CLEARANCE, RESULT | e | 1:53 PM | disease, stage IV | procedure are in the | | | | PDT | (severe) (HCC) | results section. | + +--------+ + + + documented in this encounter Results Protein, Urine, 24Hr (04/02/2017 1:53 PM PDT) + +---------+ + + + | Component | Value | Ref Range | Performed | Pathologist | | | | | At | Signature | + +---------+ + + + | Urine Time | 24 HR | | [facility] | | | | | | [facility] | | | | | | [facility] | | | | | | [facility] - | | | | | | LABORATORY | | + +---------+ + + + | Urine | 2,790 | mL | [facility] | | | Volume | | | [facility] | | | | | | [facility] | | | | | | [facility] - | | | | | | LABORATORY | | + +---------+ + + + | Protein, | 6 | mg/dL | [facility] | | | Urine | | | [facility] | | | (mg/dL) | | | [facility] | | | | | | CENTER - | | | | | | LABORATORY | | + +---------+ + + + | Protein, | 167 (H) | 0 - 100 | [facility] | | | Urine | | mg/24hrs | [facility] | | | (mg/24hr) | | | MEDICAL | | | | | | CENTER - | | | | | | LABORATORY | | + +---------+ + + + + + | Specimen | + + | Urine | + + + + + + + | Performing | Address | City/State/Zipcode | Phone Number | | Organization | | | | + + + + + | [facility] | [address] | [place] | [phone] | | [facility] | | [address] | | | - LABORATORY | | | | + + + + + Creatinine Clearance, Result (04/02/2017 1:53 PM PDT) + +---------+ + + + | Component | Value | Ref Range | Performed | Pathologist | | | | | At | Signature | + +---------+ + + + | Urine Time | 24 HR | | [facility] | | | | | [facility] | | | | | | [facility] | | | | | | [facility] - | | | | | | LABORATORY | | + +---------+ + + + | Urine | 2,790 | mL | [facility] | | | Volume | | | [facility] | | | | | | [facility] | | | | | | CENTER - | | | | | | LABORATORY | | + +---------+ + + + | Height (IN) | 73 | in | [facility] | | | | | | [facility] | | | | | | [facility]ICAL | | | | | | [facility] - | | | | | | LABORATORY | | + +---------+ + + + | Weight, lbs | 211.6 | lbs | [facility] | | | | | | [facility] | | | | | | [facility]ICAL | | | | | | CENTER - | | | | | | LABORATORY | | + +---------+ + + + | Body | 2.20 | m2 | [facility] | | | Surface | | | [facility] | | | Area | | | MEDICAL | | | | | | CENTER - | | | | | | LABORATORY | | + +---------+ + + + | Creatinine | 0.96 | 0.60 - 1.30 | [facility] | | | | | mg/dL | [facility] | | | | | | MEDICAL | | | | | | CENTER - | | | | | | LABORATORY | | + +---------+ + + + | Creatinine, | 1,701.9 | 600 - 2,700 | [facility] | | | 24Hr Urine | | mg/24hr | [facility] | | | | | | [facility]ICAL | | | | | | CENTER - | | | | | | LABORATORY | | + +---------+ + + + | CREATININE | 96.64 | 71.00 - 135.00 | [facility] | | | CLEARANCE | | mL/min | [facility] | | | | | | MEDICAL | | | | | | CENTER - | | | | | | LABORATORY | | + +---------+ + + + | Creatinine, | 61 | mg/dL | [facility] | | | Urine | | | [facility] | | | | | | [facility] | | | | | | CENTER - | | | | | | LABORATORY | | + +---------+ + + + + + | Specimen | + + | Urine | + + + + + + + | Performing | Address | City/State/Zipcode | Phone Number | | Organization | | | | + + + + + | [facility] | [address] | [place] | [phone] | | [facility] | | [address] | | | - LABORATORY | | | | + + + + + documented in this encounter Visit Diagnoses + + | Diagnosis | + + | Chronic kidney disease, stage IV (severe) (HCC) Chronic kidney disease, Stage IV | | (severe) | + + documented in this encounter"
--- OUTSIDE RECORDS SUMMARY | ~2020-06-16 | XMS | Encounter Summary ---
Demographics + + + | Address | [address] | | | [place] [address] | + + + | Home Phone | | + + + | Preferred Language | Unknown | + + + | Marital Status | | + + + | Anabaptist Affiliation | Unknown | + + + | Race | White | + + + | Ethnic Group | Not or | + + + Author + + + | Author | [facility] | | | and [place] | + + + | Organization | [facility] | | [...] [place], | | | | | [place] [address] | | + + + + + Care Team Providers + +------+ + | Care Shipping Services Sales Representative Name | Role | Phone | + +------+ + PCP | Unavailable | + +------+ + Encounter Details +--------+ + + + + | Date | Type | Department | Care Team | Description | +--------+ + + + + | 05/04/ | Hospital | [facility] | Conversion | Pain | | 2012 | Encounter | CONVERSION [address] | Transaction, | | | | | [address] | Provider Unknown | | | | | [place] | [phone] | | | | | [address] | | | | | | [phone] | | | +--------+ + + + + Social History + +-------+ +--------+------+ | Tobacco Use | Types | Packs/Day | Years | Date | | | | | Used | | + +-------+ +--------+------+ | Never Assessed | | | | | + +-------+ +--------+------+ + + + | Sex Assigned at [...] | + +--------+ + + + | MRI THORACIC SPINE | Routin | 04/03/2012 | | Results for this | | WO CONTRAST | e | 11:47 AM | | procedure are in the | | | | PDT | | results section. | + +--------+ + + + documented in this encounter Results MRI Thoracic Spine wo Contrast (04/03/2012 11:47 AM PDT) + + | Specimen | + + | | + + + + + | Narrative | Performed At | + + + | This is a non-reportable procedure without a radiologist report and | | | is used for image storage only | | + + + + + | Procedure Note | + + | Jimbo Hoover - 05/15/2019 3:47 AM PDT This is a non-reportable procedure | | without a radiologist report and isused for image storage only | + + documented in this encounter Visit Diagnoses + + | Diagnosis | + + | Pain Generalized pain | + + documented in this encounter"
--- OUTSIDE RECORDS SUMMARY | ~2020-06-16 | XMS | Encounter Summary ---
Demographics + + + | Address | [address] | | | [place] [address] | + + + | Home Phone | | + + + | Preferred Language | Unknown | + + + | Marital Status | | + + + | Taoist Affiliation | Unknown | + + + | Race | White | + + + | Ethnic Group | Not or | + + + Author + + + | Author | [facility] | | | and [place] | + + + | Organization | [facility] | | | and [...] [place], | | | | | [place] [address] | | + + + + + Care Team Providers + +------+ + | Care [employer] Biology Teacher Name | Role | Phone | + +------+ + | Dimitri Fischer MD | PCP | | + +------+ + Encounter Details +--------+ + + + + | Date | Type | Department | Care Team | Description | +--------+ + + + + | 03/13/ | Abstract | [facility] | Surendra Vaughn | Chronic kidney | | 2017 | | NEPHROLOGY [address] | M, DO [address] | disease, stage IV | | | | [address] | [address] | (severe) (HCC) | | | | [place], [place] | [place] [address] | (Primary Dx) | | | | [address] | [phone] | | | | | [phone] | | | +--------+ + + + [...] | + +--------+ + + + | EXTERNAL LAB: BUN | Routin | 03/12/2017 | Chronic kidney | Results for this | | | e | | disease, stage IV | procedure are in the | | | | | (severe) ([facility]) | results section. | + +--------+ + + + | EXTERNAL LAB: | Routin | 03/12/2017 | Chronic kidney | Results for this | | GLUCOSE | e | | disease, stage IV | procedure are in the | | | | | (severe) ([facility]) | results section. | + +--------+ + + + | EXTERNAL LAB: ALT | Routin | 03/12/2017 | Chronic kidney | Results for this | | | e | | disease, stage IV | procedure are in the | | | | | (severe) ([facility]) | results section. | + +--------+ + + + | EXTERNAL LAB: AST | Routin | 03/12/2017 | Chronic kidney | Results for this | | | e | | disease, stage IV | procedure are in the | | | | | (severe) ([facility]) | results section. | + +--------+ + + + | EXTERNAL LAB: | Routin | 03/12/2017 | Chronic kidney | Results for this | | ALKALINE PHOSPHATASE | e | | disease, stage IV | procedure are in the | | | | | (severe) ([facility]) | results section. | + +--------+ + + + | EXTERNAL LAB: | Routin | 03/12/2017 | Chronic kidney | Results for this | | BILIRUBIN, TOTAL | e | | disease, stage IV | procedure are in the | | | | | (severe) ([facility]) | results section. | + +--------+ + + + | EXTERNAL LAB: | Routin | 03/12/2017 | Chronic kidney | Results for this | | ALBUMIN | e | | disease, stage IV | procedure are in the | | | | | (severe) ([facility]) | results section. | + +--------+ + + + | EXTERNAL LAB: | Routin | 03/12/2017 | Chronic kidney | Results for this | | PROTEIN, TOTAL | e | | disease, stage IV | procedure are in the | | | | | (severe) ([facility]) | results section. | + +--------+ + + + | EXTERNAL LAB: | Routin | 03/12/2017 | Chronic kidney | Results for this | | CALCIUM | e | | disease, stage IV | procedure are in the | | | | | (severe) ([facility]) | results section. | + +--------+ + + + | EXTERNAL LAB: CARBON | Routin | 03/12/2017 | Chronic kidney | Results for this | | DIOXIDE | e | | disease, stage IV | procedure are in the | | | | | (severe) ([facility]) | results section. | + +--------+ + + + | EXTERNAL LAB: | Routin | 03/12/2017 | Chronic kidney | Results for this | | CHLORIDE | e | | disease, stage IV | procedure are in the | | | | | (severe) ([facility]) | results section. | + +--------+ + + + | EXTERNAL LAB: | Routin | 03/12/2017 | Chronic kidney | Results for this | | POTASSIUM | e | | disease, stage IV | procedure are in the | | | | | (severe) ([facility]) | results section. | + +--------+ + + + | EXTERNAL LAB: SODIUM | Routin | 03/12/2017 | Chronic kidney | Results for this | | | e | | disease, stage IV | procedure are in the | | | | | (severe) ([facility]) | results section. | + +--------+ + + + | EXTERNAL LAB: IRON | Routin | 03/12/2017 | Chronic kidney | Results for this | | TOTAL | e | | disease, stage IV | procedure are in the | | | | | (severe) ([facility]) | results section. | + +--------+ + + + | EXTERNAL LAB: IRON | Routin | 03/12/2017 | Chronic kidney | Results for this | | SATURATION | e | | disease, stage IV | procedure are in the | | | | | (severe) ([facility]) | results section. | + +--------+ + + + | EXTERNAL LAB: IRON | Routin | 03/12/2017 | Chronic kidney | Results for this | | BINDING CAPACITY | e | | disease, stage IV | procedure are in the | | | | | (severe) ([facility]) | results section. | + +--------+ + + + | EXTERNAL LAB: | Routin | 03/12/2017 | Chronic kidney | Results for this | | FERRITIN | e | | disease, stage IV | procedure are in the | | | | | (severe) ([facility]) | results section. | + +--------+ + + + | EXTERNAL LAB: CBC | Routin | 03/12/2017 | Chronic kidney | Results for this | | | e | | disease, stage IV | procedure are in the | | | | | (severe) ([facility]) | results section. | + +--------+ + + + | EXTERNAL LAB: EGFR | Routin | 03/12/2017 | Chronic kidney | Results for this | | | e | | disease, stage IV | procedure are in the | | | | | (severe) ([facility]) | results section. | + +--------+ + + + | EXTERNAL LAB: | Routin | 03/12/2017 | Chronic kidney | Results for this | | CREATININE | e | | disease, stage IV | procedure are in the | | | | | (severe) ([facility]) | results section. | + +--------+ + + + | HEMOGLOBIN A1C | Routin | 03/12/2017 | Chronic kidney | Results for this | | | e | | disease, stage IV | procedure are in the | | | | | (severe) ([facility]) | results section. | + +--------+ + + + | EXTERNAL LAB: BUN | Routin | 12/16/2016 | Chronic kidney | Results for this | | | e | | disease, stage IV | procedure are in the | | | | | (severe) ([facility]) | results section. | + +--------+ + + + | EXTERNAL LAB: | Routin | 12/16/2016 | Chronic kidney | Results for this | | GLUCOSE | e | | disease, stage IV | procedure are in the | | | | | (severe) ([facility]) | results section. | + +--------+ + + + | EXTERNAL LAB: ALT | Routin | 12/16/2016 | Chronic kidney | Results for this | | | e | | disease, stage IV | procedure are in the | | | | | (severe) ([facility]) | results section. | + +--------+ + + + | EXTERNAL LAB: AST | Routin | 12/16/2016 | Chronic kidney | Results for this | | | e | | disease, stage IV | procedure are in the | | | | | (severe) ([facility]) | results section. | + +--------+ + + + | EXTERNAL LAB: | Routin | 12/16/2016 | Chronic kidney | Results for this | | ALKALINE PHOSPHATASE | e | | disease, stage IV | procedure are in the | | | | | (severe) ([facility]) | results section. | + +--------+ + + + | EXTERNAL LAB: | Routin | 12/16/2016 | Chronic kidney | Results for this | | BILIRUBIN, TOTAL | e | | disease, stage IV | procedure are in the | | | | | (severe) ([facility]) | results section. | + +--------+ + + + | EXTERNAL LAB: | Routin | 12/16/2016 | Chronic kidney | Results for this | | ALBUMIN | e | | disease, stage IV | procedure are in the | | | | | (severe) ([facility]) | results section. | + +--------+ + + + | EXTERNAL LAB: | Routin | 12/16/2016 | Chronic kidney | Results for this | | PROTEIN, TOTAL | e | | disease, stage IV | procedure are in the | | | | | (severe) ([facility]) | results section. | + +--------+ + + + | EXTERNAL LAB: | Routin | 12/16/2016 | Chronic kidney | Results for this | | CALCIUM | e | | disease, stage IV | procedure are in the | | | | | (severe) ([facility]) | results section. | + +--------+ + + + | EXTERNAL LAB: CARBON | Routin | 12/16/2016 | Chronic kidney | Results for this | | DIOXIDE | e | | disease, stage IV | procedure are in the | | | | | (severe) ([facility]) | results section. | + +--------+ + + + | EXTERNAL LAB: | Routin | 12/16/2016 | Chronic kidney | Results for this | | CHLORIDE | e | | disease, stage IV | procedure are in the | | | | | (severe) ([facility]) | results section. | + +--------+ + + + | EXTERNAL LAB: | Routin | 12/16/2016 | Chronic kidney | Results for this | | POTASSIUM | e | | disease, stage IV | procedure are in the | | | | | (severe) ([facility]) | results section. | + +--------+ + + + | EXTERNAL LAB: SODIUM | Routin | 12/16/2016 | Chronic kidney | Results for this | | | e | | disease, stage IV | procedure are in the | | | | | (severe) ([facility]) | results section. | + +--------+ + + + | EXTERNAL LAB: | Routin | 12/16/2016 | Chronic kidney | Results for this | | VITAMIN D, | e | | disease, stage IV | procedure are in the | | 25-HYDROXY | | | (severe) ([facility]) | results section. | + +--------+ + + + | EXTERNAL LAB: | Routin | 12/16/2016 | Chronic kidney | Results for this | | URINALYSIS | e | | disease, stage IV | procedure are in the | | | | | (severe) ([facility]) | results section. | + +--------+ + + + | EXTERNAL LAB: CBC | Routin | 12/16/2016 | Chronic kidney | Results for this | | | e | | disease, stage IV | procedure are in the | | | | | (severe) ([facility]) | results section. | + +--------+ + + + | EXTERNAL LAB: | Routin | 12/16/2016 | Chronic kidney | Results for this | | TRIGLYCERIDES | e | | disease, stage IV | procedure are in the | | | | | (severe) ([facility]) | results section. | + +--------+ + + + | EXTERNAL LAB: | Routin | 12/16/2016 | Chronic kidney | Results for this | | CHOLESTEROL, HDL | e | | disease, stage IV | procedure are in the | | | | | (severe) ([facility]) | results section. | + +--------+ + + + | EXTERNAL LAB: | Routin | 12/16/2016 | Chronic kidney | Results for this | | CHOLESTEROL, TOTAL | e | | disease, stage IV | procedure are in the | | | | | (severe) ([facility]) | results section. | + +--------+ + + + | EXTERNAL LAB: | Routin | 12/16/2016 | Chronic kidney | Results for this | | CHOLESTEROL, LDL | e | | disease, stage IV | procedure are in the | | | | | (severe) ([facility]) | results section. | + +--------+ + + + | EXTERNAL LAB: EGFR | Routin | 12/16/2016 | Chronic kidney | Results for this | | | e | | disease, stage IV | procedure are in the | | | | | (severe) ([facility]) | results section. | + +--------+ + + + | EXTERNAL LAB: | Routin | 12/16/2016 | Chronic kidney | Results for this | | CREATININE | e | | disease, stage IV | procedure are in the | | | | | (severe) ([facility]) | results section. | + +--------+ + + + | HEMOGLOBIN A1C | Routin | 12/16/2016 | Chronic kidney | Results for this | | | e | | disease, stage IV | procedure are in the | | | | | (severe) ([facility]) | results section. | + +--------+ + [...] + | [facility] | [address] | [place] | [phone] | | [facility] | | [address] | | | - LABORATORY | | [...] | | | | mg/dL | [facility] | | | | [...] + | [facility] | [address] | [place] | [phone] | | [facility] | | [address] | | | - LABORATORY | | | | + + + + + Phosphorus (04/02/2017 1:28 PM PDT) + +-------+ + + + | Component | Value | Ref Range | Performed | Pathologist | | | | | At | Signature | + +-------+ + + + | Phosphorus | 3.3 | 2.5 - 4.6 mg/dL | [facility] | | | | | | [facility] | | | | | | [...] | + + + + + | [facility] | [address] | [place] | [phone] | | [facility] | | [address] | | | - LABORATORY | | | | + + + + + Comprehensive Metabolic Panel (04/02/2017 1:28 PM PDT) + + + + + + | Component | Value | Ref Range | Performed | Pathologist | | | | | At | Signature | + + + + + + | Na | 138 | 136 - 149 | [facility] | | | | | mmol/L | [facility] | | | | | | MEDICAL | | | | | | CENTER - | | | | | | LABORATORY | | + + + + + + | K | 4.4 | 3.5 - 5.1 | [facility] | | | | | mmol/L | [facility] | | | | | | [facility] | | | | | | CENTER - | | | | | | LABORATORY | | + + + + + + | Cl | 101 | 98 - 109 mmol/L | [facility] | | | | | [facility] | | | | | | [facility]ICAL | | | | | | CENTER - | | | | | | LABORATORY | | + + + + + + | CO2 | 28 | 24 - 31 mmol/L | [facility] | | | | | [facility] | | | | | | MEDICAL | | | | | | CENTER - | | | | | | LABORATORY | | + + + + + + | Anion Gap | 9 | 3 - 16 mmol/L | [facility] | [facility] | [facility] | | | | | | [facility]ICAL | | | | | | CENTER - | | | | | | LABORATORY | | + + + + + + | Glucose | 169 (H) | 70 - 109 mg/dL | [facility] | | | | | [facility] | | | | | | [facility]ICAL | | | | | | CENTER - | | | | | | LABORATORY | | + + + + + + | BUN | 15 | 7 - 18 mg/dL | [facility] | | | | | [facility] | | | | | | [facility]ICAL | | | | | | CENTER - | | | | | | LABORATORY | | + + + + + + | Creatinine | 0.96 | 0.60 - 1.30 | [facility] | | | | | mg/dL | [facility] | | | | | | MEDICAL | | | | | | CENTER - | | | | | | LABORATORY | | + + + + + + | eGFR, | >60Comment: GLOMERULAR | >=60 | [facility] | | | non- | FILTRATION | mL/min/1.73m2 | [facility] | | | [place] | RATE,ESTIMATED | | MEDICAL | | | | mL/min/1.83n0Zlvm than | | CENTER - | | [...] + + + + | Calcium | 9.5 | 8.3 - 10.5 | [facility] | | | | | mg/dL | [facility] | | | | | | MEDICAL | | | | | | CENTER - | | | | | | LABORATORY | | + + + + + + | Albumin | 4.3 | 3.2 - 5.0 g/dL | [facility] | | | | | | [facility] | | | | | | MEDICAL | | | | | | CENTER - | | | | | | LABORATORY | | + + + + + + | Bilirubin | 0.5 | 0.1 - 1.5 mg/dL | [facility] | | | Total | | | [facility] | | | | | | MEDICAL | | | | | | CENTER - | | | | | | LABORATORY | | + + + + + + | Total | 7.0 | 6.0 - 7.8 g/dL | [facility] | | | Protein | | | [facility] | | | | | | MEDICAL | | | | | | CENTER - | | | | | | LABORATORY | | + + + + + + | AST | 22 | 10 - 42 U/L | [facility] | | | | | | [facility] | | | | | | MEDICAL | | | | | | CENTER - | | | | | | LABORATORY | | + + + + + + | ALT | 20 | 6 - 45 U/L | [facility] | | | | | | [facility] | | | | | | MEDICAL | | | | | | CENTER - | | | | | | LABORATORY | | + + + + + + | Alkaline | 87 | 40 - 110 U/L | [facility] | | | Phosphatase | | | [facility] | | | | | | MEDICAL | | | | | | CENTER - | | | | | | LABORATORY | | + + + + + + | Globulin | 2.7 | 2.1 - 3.8 g/dL | [facility] | | | | | | [facility] | | | | | | MEDICAL | | | | | | CENTER - | | | | | | LABORATORY | | + + + + + + | Albumin/Michelle | 1.6 | 0.8 - 2.0 | [facility] | | | bulin Ratio | | | [facility] | | | | | | MEDICAL | | | | | | CENTER - | | | | | | LABORATORY | | + + + + + + | BUN/Creatin | 15.6 | | [facility] | | | ine Ratio | | | [facility] | | [...] + | [facility] | [address] | [place] | [phone] | | [facility] | | [address] | | | - LABORATORY | | | | + + + + + CBC with Differential (04/02/2017 1:28 PM PDT) + + + + + + | Component | Value | Ref Range | Performed | Pathologist | | | | | At | Signature | + + + + + + | White Blood | 7.5 | 4.0 - 11.0 K/uL | [facility] | | | Cells | | | [facility] | | | | | | MEDICAL | | | | | | CENTER - | | | | | | LABORATORY | | + + + + + + | Red Blood | 3.89 (L) | 4.30 - 5.70 | [facility] | | | Cells | | M/uL | [facility] | | | | | | MEDICAL | | | | | | CENTER - | | | | | | LABORATORY | | + + + + + + | Hemoglobin | 11.7 (L) | 13.5 - 18.0 | [facility] | | | | | g/dL | [facility] | | | | | | MEDICAL | | | | | | CENTER - | | | | | | LABORATORY | | + + + + + + | Hematocrit | 34.8 (L) | 40.0 - 51.0 % | [facility] | | | | | | [facility] | | | | | | MEDICAL | | | | | | CENTER - | | | | | | LABORATORY | | + + + + + + | MCV | 89.5 | 83.0 - 101.0 fL | [facility] | | | | | | [facility] | | | | | | [facility]ICAL | | | | | | CENTER - | | | | | | LABORATORY | | + + + + + + | MCH | 30.2 | 28.0 - 35.0 pg | [facility] | | | | | | [facility] | | | | | | MEDICAL | | | | | | CENTER - | | | | | | LABORATORY | | + + + + + + | MCHC | 33.8 | 32.0 - 36.0 | [facility] | | | | | g/dL | [facility] | | | | | | MEDICAL | | | | | | CENTER - | | | | | | LABORATORY | | + + + + + + | RDW-CV | 13.8 | <15.0 % | [facility] | | | | | | [facility] | | | | | | [facility]ICAL | | | | | | CENTER - | | | | | | LABORATORY | | + + + + + + | Platelet | 259 | 140 - 440 K/uL | [facility] | | | Count | | | [facility] | | | | | | MEDICAL | | | | | | CENTER - | | | | | | LABORATORY | | + + + + + + | MPV | 8.9 | fL | [facility] | | | | | | [facility] | | | | | | MEDICAL | | | | | | CENTER - | | | | | | LABORATORY | | + + + + + + | % | 44.4 (L) | 45.0 - 82.0 % | [facility] | | | Neutrophils | | | [facility] | | | | | | MEDICAL | | | | | | CENTER - | | | | | | LABORATORY | | + + + + + + | % | 44.8 | 20.0 - 45.0 % | [facility] | | | Lymphocytes | | | [facility] | | | | | | MEDICAL | | | | | | CENTER - | | | | | | LABORATORY | | + + + + + + | % Monocytes | 7.4 | 4.0 - 12.0 % | [facility] | | | | | | [facility] | | | | | | MEDICAL | | | | | | CENTER - | | | | | | LABORATORY | | + + + + + + | % | 2.8 | 0.0 - 5.0 % | [facility] | | | Eosinophils | | | [facility] | | | | | | MEDICAL | | | | | | CENTER - | | | | | | LABORATORY | | + + + + + + | % Basophils | 0.6 | 0.0 - 1.0 % | [facility] | | | | | | [facility] | | | | | | MEDICAL | | | | | | CENTER - | | | | | | LABORATORY | | + + + + + + | Absolute | 3.30 | 1.80 - 8.50 | [facility] | | | Neutrophils | | K/uL | [facility] | | | | | | MEDICAL | | | | | | CENTER - | | | | | | LABORATORY | | + + + + + + | Absolute | 3.40 (H) | 0.60 - 3.20 | [facility] | | | Lymphocytes | | K/uL | [facility] | | | | | | MEDICAL | | | | | | CENTER - | | | | | | LABORATORY | | + + + + + + | Absolute | 0.60 | 0.00 - 1.00 | [facility] | | | Monocytes | | K/uL | [facility] | | | | | | MEDICAL | | | | | | CENTER - | | | | | | LABORATORY | | + + + + + + | Absolute | 0.20 | 0.00 - 0.40 | [facility] | | | Eosinophils | | K/uL | [facility] | | | | | | MEDICAL | | | | | | CENTER - | | | | | | LABORATORY | | + + + + + + | Absolute | 0.00 | 0.00 - 0.10 | [facility] | | | Basophils | | K/uL | [facility] | | | | [...] ST[facility] | [address] | [place] | [phone] | | [facility] | | [address] | | | - LABORATORY | | | | + + + + + Hemoglobin A1C (03/12/2017) + +-------+ + + + | Component | Value | Ref Range | Performed | Pathologist | | | | | At | Signature | + +-------+ + + + | Hemoglobin | 7.9 | | EXTERNAL | | | A1c, | | | LAB | | | external | | | | | + +-------+ + + + + + | Specimen | + + | Blood | + + + + | Resulting Agency Comment | + + | [facility] | + + + +---------+ + + | Performing | Address | City/State/Zipcode | Phone Number | | Organization | | | | + +---------+ + + | EXTERNAL LAB | | | | + +---------+ + + External Lab: BUN (03/12/2017) + +-------+ + + + | Component | Value | Ref Range | Performed | Pathologist | | | | | At | Signature | + +-------+ + + + | BUN, | 27 | | EXTERNAL | | | External | | | LAB | | + +-------+ + + + + + | Resulting Agency Comment | + + | [facility] | + + + +---------+ + + | Performing | Address | City/State/Zipcode | Phone Number | | Organization | | | | + +---------+ + + | EXTERNAL LAB | | | | + +---------+ + + External Lab: Glucose (03/12/2017) + +-------+ + + + | Component | Value | Ref Range | Performed | Pathologist | | | | | At | Signature | + +-------+ + + + | Glucose, | 208 | | EXTERNAL | | | External | | | LAB | | + +-------+ + + + + + | Resulting Agency Comment | + + | [facility] | + + + +---------+ + + | Performing | Address | City/State/Zipcode | Phone Number | | Organization | | | | + +---------+ + + | EXTERNAL LAB | | | | + +---------+ + + External Lab: ALT (03/12/2017) + +-------+ + + + | Component | Value | Ref Range | Performed | Pathologist | | | | | At | Signature | + +-------+ + + + | ALT, | 14 | | EXTERNAL | | | External | | | LAB | | + +-------+ + + + + + | Resulting Agency Comment | + + | [facility] | + + + +---------+ + + | Performing | Address | City/State/Zipcode | Phone Number | | Organization | | | | + +---------+ + + | EXTERNAL LAB | | | | + +---------+ + + External Lab: AST (03/12/2017) + +-------+ + + + | Component | Value | Ref Range | Performed | Pathologist | | | | | At | Signature | + +-------+ + + + | AST, | 16 | | EXTERNAL | | | External | | | LAB | | + +-------+ + + + + + | Resulting Agency Comment | + + | [facility] | + + + +---------+ + + | Performing | Address | City/State/Zipcode | Phone Number | | Organization | | | | + +---------+ + + | EXTERNAL LAB | | | | + +---------+ + + External Lab: Alkaline Phosphatase (03/12/2017) + +-------+ + + + | Component | Value | Ref Range | Performed | Pathologist | | | | | At | Signature | + +-------+ + + + | ALP, | 101 | | EXTERNAL | | | External | | | LAB | | + +-------+ + + + + + | Resulting Agency Comment | + + | [facility] | + + + +---------+ + + | Performing | Address | City/State/Zipcode | Phone Number | | Organization | | | | + +---------+ + + | EXTERNAL LAB | | | | + +---------+ + + External Lab: Bilirubin, Total (03/12/2017) + +-------+ + + + | Component | Value | Ref Range | Performed | Pathologist | | | | | At | Signature | + +-------+ + + + | Bilirubin, | 0.3 | | EXTERNAL | | | Total, | | | LAB | | | External | | | | | + +-------+ + + + + + | Resulting Agency Comment | + + | [facility] | + + + +---------+ + + | Performing | Address | City/State/Zipcode | Phone Number | | Organization | | | | + +---------+ + + | EXTERNAL LAB | | | | + +---------+ + + External Lab: Albumin (03/12/2017) + +-------+ + + + | Component | Value | Ref Range | Performed | Pathologist | | | | | At | Signature | + +-------+ + + + | Albumin, | 4.5 | | EXTERNAL | | | External | | | LAB | | + +-------+ + + + + + | Resulting Agency Comment | + + | [facility] | + + + +---------+ + + | Performing | Address | City/State/Zipcode | Phone Number | | Organization | | | | + +---------+ + + | EXTERNAL LAB | | | | + +---------+ + + External Lab: Protein, Total (03/12/2017) + +-------+ + + + | Component | Value | Ref Range | Performed | Pathologist | | | | | At | Signature | + +-------+ + + + | Protein, | 7.3 | | EXTERNAL | | | Total, | | | LAB | | | External | | | | | + +-------+ + + + + + | Resulting Agency Comment | + + | [facility] | + + + +---------+ + + | Performing | Address | City/State/Zipcode | Phone Number | | Organization | | | | + +---------+ + + | EXTERNAL LAB | | | | + +---------+ + + External Lab: Calcium (03/12/2017) + +-------+ + + + | Component | Value | Ref Range | Performed | Pathologist | | | | | At | Signature | + +-------+ + + + | Calcium, | 9.7 | | EXTERNAL | | | External | | | LAB | | + +-------+ + + + + + | Resulting Agency Comment | + + | [facility] | + + + +---------+ + + | Performing | Address | City/State/Zipcode | Phone Number | | Organization | | | | + +---------+ + + | EXTERNAL LAB | | | | + +---------+ + + External Lab: Carbon Dioxide (03/12/2017) + +-------+ + + + | Component | Value | Ref Range | Performed | Pathologist | | | | | At | Signature | + +-------+ + + + | Carbon | 23 | | EXTERNAL | | | Dioxide, | | | LAB | | | External | | | | | + +-------+ + + + + + | Resulting Agency Comment | + + | [facility] | + + + +---------+ + + | Performing | Address | City/State/Zipcode | Phone Number | | Organization | | | | + +---------+ + + | EXTERNAL LAB | | | | + +---------+ + + External Lab: Chloride (03/12/2017) + +-------+ + + + | Component | Value | Ref Range | Performed | Pathologist | | | | | At | Signature | + +-------+ + + + | Chloride, | 100 | | EXTERNAL | | | External | | | LAB | | + +-------+ + + + + + | Resulting Agency Comment | + + | [facility] | + + + +---------+ + + | Performing | Address | City/State/Zipcode | Phone Number | | Organization | | | | + +---------+ + + | EXTERNAL LAB | | | | + +---------+ + + External Lab: Potassium (03/12/2017) + +-------+ + + + | Component | Value | Ref Range | Performed | Pathologist | | | | | At | Signature | + +-------+ + + + | Potassium, | 4.3 | | EXTERNAL | | | External | | | LAB | | + +-------+ + + + + + | Resulting Agency Comment | + + | [facility] | + + + +---------+ + + | Performing | Address | City/State/Zipcode | Phone Number | | Organization | | | | + +---------+ + + | EXTERNAL LAB | | | | + +---------+ + + External Lab: Sodium (03/12/2017) + +-------+ + + + | Component | Value | Ref Range | Performed | Pathologist | | | | | At | Signature | + +-------+ + + + | Sodium, | 139 | | EXTERNAL | | | External | | | LAB | | + +-------+ + + + + + | Resulting Agency Comment | + + | [facility] | + + + +---------+ + + | Performing | Address | City/State/Zipcode | Phone Number | | Organization | | | | + +---------+ + + | EXTERNAL LAB | | | | + +---------+ + + External Lab: Iron Total (03/12/2017) + + + + + + | Component | Value | Ref Range | Performed | Pathologist | | | | | At | Signature | + + + + + + | Iron, | 21.5 (A) | 37 - 160 | EXTERNAL | | | External | | | LAB | | + + + + + + + + | Resulting Agency Comment | + + | [facility] | + + + +---------+ + + | Performing | Address | City/State/Zipcode | Phone Number | | Organization | | | | + +---------+ + + | EXTERNAL LAB | | | | + +---------+ + + External Lab: Iron Saturation (03/12/2017) + +---------+ + + + | Component | Value | Ref Range | Performed | Pathologist | | | | | At | Signature | + +---------+ + + + | Iron | 5.3 (A) | 20 - 55 | EXTERNAL | | | Saturation, | | | LAB | | | External | | | | | + +---------+ + + + + + | Resulting Agency Comment | + + | [facility] | + + + +---------+ + + | Performing | Address | City/State/Zipcode | Phone Number | | Organization | | | | + +---------+ + + | EXTERNAL LAB | | | | + +---------+ + + External Lab: Iron Binding Capacity (03/12/2017) + +---------+ + + + | Component | Value | Ref Range | Performed | Pathologist | | | | | At | Signature | + +---------+ + + + | Iron | 406 (A) | 245 - 400 | EXTERNAL | | | Binding | | | LAB | | | Capacity, | | | | | | External | | | | | + +---------+ + + + + + | Resulting Agency Comment | + + | [facility] | + + + +---------+ + + | Performing | Address | City/State/Zipcode | Phone Number | | Organization | | | | + +---------+ + + | EXTERNAL LAB | | | | + +---------+ + + External Lab: Ferritin (03/12/2017) + + + + + + | Component | Value | Ref Range | Performed | Pathologist | | | | | At | Signature | + + + + + + | Ferritin, | 462.9 (A) | 30 - 400 | EXTERNAL | | | External | | | LAB | | + + + + + + + + | Resulting Agency Comment | + + | [facility] | + + + +---------+ + + | Performing | Address | City/State/Zipcode | Phone Number | | Organization | | | | + +---------+ + + | EXTERNAL LAB | | | | + +---------+ + + External Lab: CBC (03/12/2017) + +-------+ + + + | Component | Value | Ref Range | Performed | Pathologist | | | | | At | Signature | + +-------+ + + + | WBC, | 12.8 | | EXTERNAL | | | External | | | LAB | | + +-------+ + + + | HGB, | 10.6 | | EXTERNAL | | | External | | | LAB | | + +-------+ + + + | HCT, | 32.3 | | EXTERNAL | | | External | | | LAB | | + +-------+ + + + | PLT, | 264 | | EXTERNAL | | | External | | | LAB | | + +-------+ + + + | RBC, | 3.58 | | EXTERNAL | | | External | | | LAB | | + +-------+ + + + | MCV, | 90 | | EXTERNAL | | | External | | | LAB | | + +-------+ + + + | RDW, | 13.9 | | EXTERNAL | | | External | | | LAB | | + +-------+ + + + + + | Resulting Agency Comment | + + | [facility] | + + + +---------+ + + | Performing | Address | City/State/Zipcode | Phone Number | | Organization | | | | + +---------+ + + | EXTERNAL LAB | | | | + +---------+ + + External Lab: eGFR (03/12/2017) + +-------+ + + + | Component | Value | Ref Range | Performed | Pathologist | | | | | At | Signature | + +-------+ + + + | eGFR, | 20 | | EXTERNAL | | | External | | | LAB | | + +-------+ + + + + + | Specimen | + + | Blood | + + + + | Resulting Agency Comment | + + | [facility] | + + + +---------+ + + | Performing | Address | City/State/Zipcode | Phone Number | | Organization | | | | + +---------+ + + | EXTERNAL LAB | | | | + +---------+ + + External Lab: Creatinine (03/12/2017) + +-------+ + + + | Component | Value | Ref Range | Performed | Pathologist | | | | | At | Signature | + +-------+ + + + | Creatinine, | 3.35 | | EXTERNAL | | | External | | | LAB | | + +-------+ + + + + + | Specimen | + + | Blood | + + + + | Resulting Agency Comment | + + | [facility] | + + + +---------+ + + | Performing | Address | City/State/Zipcode | Phone Number | | Organization | | | | + +---------+ + + | EXTERNAL LAB | | | | + +---------+ + + Hemoglobin A1C (12/16/2016) + +-------+ + + + | Component | Value | Ref Range | Performed | Pathologist | | | | | At | Signature | + +-------+ + + + | Hemoglobin | 12.3 | | EXTERNAL | | | A1c, | | | LAB | | | external | | | | | + +-------+ + + + + + | Specimen | + + | Blood | + + + + | Resulting Agency Comment | + + | [facility] | + + + +---------+ + + | Performing | Address | City/State/Zipcode | Phone Number | | Organization | | | | + +---------+ + + | EXTERNAL LAB | | | | + +---------+ + + External Lab: SHIRAZ (12/16/2016) + +-------+ + + + | Component | Value | Ref Range | Performed | Pathologist | | | | | At | Signature | + +-------+ + + + | BUN, | 23 | | EXTERNAL | | | External | | | LAB | | + +-------+ + + + + + | Resulting Agency Comment | + + | [facility] | + + + +---------+ + + | Performing | Address | City/State/Zipcode | Phone Number | | Organization | | | | + +---------+ + + | EXTERNAL LAB | | | | + +---------+ + + External Lab: Glucose (12/16/2016) + +-------+ + + + | Component | Value | Ref Range | Performed | Pathologist | | | | | At | Signature | + +-------+ + + + | Glucose, | 212 | | EXTERNAL | | | External | | | LAB | | + +-------+ + + + + + | Resulting Agency Comment | + + | [facility] | + + + +---------+ + + | Performing | Address | City/State/Zipcode | Phone Number | | Organization | | | | + +---------+ + + | EXTERNAL LAB | | | | + +---------+ + + External Lab: ALT (12/16/2016) + +-------+ + + + | Component | Value | Ref Range | Performed | Pathologist | | | | | At | Signature | + +-------+ + + + | ALT, | 46 | | EXTERNAL | | | External | | | LAB | | + +-------+ + + + + + | Resulting Agency Comment | + + | [facility] | + + + +---------+ + + | Performing | Address | City/State/Zipcode | Phone Number | | Organization | | | | + +---------+ + + | EXTERNAL LAB | | | | + +---------+ + + External Lab: AST (12/16/2016) + +-------+ + + + | Component | Value | Ref Range | Performed | Pathologist | | | | | At | Signature | + +-------+ + + + | AST, | 34 | | EXTERNAL | | | External | | | LAB | | + +-------+ + + + + + | Resulting Agency Comment | + + | [facility] | + + + +---------+ + + | Performing | Address | City/State/Zipcode | Phone Number | | Organization | | | | + +---------+ + + | EXTERNAL LAB | | | | + +---------+ + + External Lab: Alkaline Phosphatase (12/16/2016) + +-------+ + + + | Component | Value | Ref Range | Performed | Pathologist | | | | | At | Signature | + +-------+ + + + | ALP, | 111 | | EXTERNAL | | | External | | | LAB | | + +-------+ + + + + + | Resulting Agency Comment | + + | [facility] | + + + +---------+ + + | Performing | Address | City/State/Zipcode | Phone Number | | Organization | | | | + +---------+ + + | EXTERNAL LAB | | | | + +---------+ + + External Lab: Bilirubin, Total (12/16/2016) + +-------+ + + + | Component | Value | Ref Range | Performed | Pathologist | | | | | At | Signature | + +-------+ + + + | Bilirubin, | 0.5 | | EXTERNAL | | | Total, | | | LAB | | | External | | | | | + +-------+ + + + + + | Resulting Agency Comment | + + | [facility] | + + + +---------+ + + | Performing | Address | City/State/Zipcode | Phone Number | | Organization | | | | + +---------+ + + | EXTERNAL LAB | | | | + +---------+ + + External Lab: Albumin (12/16/2016) + +-------+ + + + | Component | Value | Ref Range | Performed | Pathologist | | | | | At | Signature | + +-------+ + + + | Albumin, | 4.4 | | EXTERNAL | | | External | | | LAB | | + +-------+ + + + + + | Resulting Agency Comment | + + | [facility] | + + + +---------+ + + | Performing | Address | City/State/Zipcode | Phone Number | | Organization | | | | + +---------+ + + | EXTERNAL LAB | | | | + +---------+ + + External Lab: Protein, Total (12/16/2016) + +-------+ + + + | Component | Value | Ref Range | Performed | Pathologist | | | | | At | Signature | + +-------+ + + + | Protein, | 7.3 | | EXTERNAL | | | Total, | | | LAB | | | External | | | | | + +-------+ + + + + + | Resulting Agency Comment | + + | [facility] | + + + +---------+ + + | Performing | Address | City/State/Zipcode | Phone Number | | Organization | | | | + +---------+ + + | EXTERNAL LAB | | | | + +---------+ + + External Lab: Calcium (12/16/2016) + +-------+ + + + | Component | Value | Ref Range | Performed | Pathologist | | | | | At | Signature | + +-------+ + + + | Calcium, | 9.6 | | EXTERNAL | | | External | | | LAB | | + +-------+ + + + + + | Resulting Agency Comment | + + | [facility] | + + + +---------+ + + | Performing | Address | City/State/Zipcode | Phone Number | | Organization | | | | + +---------+ + + | EXTERNAL LAB | | | | + +---------+ + + External Lab: Carbon Dioxide (12/16/2016) + +-------+ + + + | Component | Value | Ref Range | Performed | Pathologist | | | | | At | Signature | + +-------+ + + + | Carbon | 29 | | EXTERNAL | | | Dioxide, | | | LAB | | | External | | | | | + +-------+ + + + + + | Resulting Agency Comment | + + | [facility] | + + + +---------+ + + | Performing | Address | City/State/Zipcode | Phone Number | | Organization | | | | + +---------+ + + | EXTERNAL LAB | | | | + +---------+ + + External Lab: Chloride (12/16/2016) + +-------+ + + + | Component | Value | Ref Range | Performed | Pathologist | | | | | At | Signature | + +-------+ + + + | Chloride, | 95 | | EXTERNAL | | | External | | | LAB | | + +-------+ + + + + + | Resulting Agency Comment | + + | [facility] | + + + +---------+ + + | Performing | Address | City/State/Zipcode | Phone Number | | Organization | | | | + +---------+ + + | EXTERNAL LAB | | | | + +---------+ + + External Lab: Potassium (12/16/2016) + +-------+ + + + | Component | Value | Ref Range | Performed | Pathologist | | | | | At | Signature | + +-------+ + + + | Potassium, | 4.1 | | EXTERNAL | | | External | | | LAB | | + +-------+ + + + + + | Resulting Agency Comment | + + | [facility] | + + + +---------+ + + | Performing | Address | City/State/Zipcode | Phone Number | | Organization | | | | + +---------+ + + | EXTERNAL LAB | | | | + +---------+ + + External Lab: Sodium (12/16/2016) + +-------+ + + + | Component | Value | Ref Range | Performed | Pathologist | | | | | At | Signature | + +-------+ + + + | Sodium, | 133 | | EXTERNAL | | | External | | | LAB | | + +-------+ + + + + + | Resulting Agency Comment | + + | [facility] | + + + +---------+ + + | Performing | Address | City/State/Zipcode | Phone Number | | Organization | | | | + +---------+ + + | EXTERNAL LAB | | | | + +---------+ + + External Lab: Vitamin D, 25-Hydroxy (12/16/2016) + +-------+ + + + | Component | Value | Ref Range | Performed | Pathologist | | | | | At | Signature | + +-------+ + + + | Vitamin D, | 16.4 | | EXTERNAL | | | 25-Hydroxy, | | | LAB | | | External | | | | | + +-------+ + + + + + | Specimen | + + | Blood | + + + + | Resulting Agency Comment | + + | [facility] | + + + +---------+ + + | Performing | Address | City/State/Zipcode | Phone Number | | Organization | | | | + +---------+ + + | EXTERNAL LAB | | | | + +---------+ + + External Lab: Urinalysis (12/16/2016) + + + + + + | Component | Value | Ref Range | Performed | Pathologist | | | | | At | Signature | + + + + + + | UA Blood, | negative | | EXTERNAL | | | External | | | LAB | | + + + + + + | UA Glucose, | negative | | EXTERNAL | | | External | | | LAB | | + + + + + + | UA Ketones, | negative | | EXTERNAL | | | External | | | LAB | | + + + + + + | UA Ph, | 6.5 | | EXTERNAL | | | External | | | LAB | | + + + + + + | UA | negative | | EXTERNAL | | | Proteins, | | | LAB | | | External | | | | | + + + + + + | UA Specific | 1.010 | | EXTERNAL | | | Prather, | | | LAB | | | External | | | | | + + + + + + | UA | negative | | EXTERNAL | | | Leukocyte | | | LAB | | | Esterase, | | | | | | External | | | | | + + + + + + + + | Resulting Agency Comment | + + | [facility] | + + + +---------+ + + | Performing | Address | City/State/Zipcode | Phone Number | | Organization | | | | + +---------+ + + | EXTERNAL LAB | | | | + +---------+ + + External Lab: CBC (12/16/2016) + +-------+ + + + | Component | Value | Ref Range | Performed | Pathologist | | | | | At | Signature | + +-------+ + + + | WBC, | 9.3 | | EXTERNAL | | | External | | | LAB | | + +-------+ + + + | HGB, | 13.1 | | EXTERNAL | | | External | | | LAB | | + +-------+ + + + | HCT, | 38.9 | | EXTERNAL | | | External | | | LAB | | + +-------+ + + + | PLT, | 223 | | EXTERNAL | | | External | | | LAB | | + +-------+ + + + | RBC, | 4.4 | | EXTERNAL | | | External | | | LAB | | + +-------+ + + + | MCV, | 89 | | EXTERNAL | | | External | | | LAB | | + +-------+ + + + | RDW, | 13.8 | | EXTERNAL | | | External | | | LAB | | + +-------+ + + + + + | Resulting Agency Comment | + + | [facility] | + + + +---------+ + + | Performing | Address | City/State/Zipcode | Phone Number | | Organization | | | | + +---------+ + + | EXTERNAL LAB | | | | + +---------+ + + External Lab: Triglycerides (12/16/2016) + +-------+ + + + | Component | Value | Ref Range | Performed | Pathologist | | | | | At | Signature | + +-------+ + + + | Triglycerid | 302 | | EXTERNAL | | | es, | | | LAB | | | External | | | | | + +-------+ + + + + + | Specimen | + + | Blood | + + + + | Resulting Agency Comment | + + | [facility] | + + + +---------+ + + | Performing | Address | City/State/Zipcode | Phone Number | | Organization | | | | + +---------+ + + | EXTERNAL LAB | | | | + +---------+ + + External Lab: Cholesterol, HDL (12/16/2016) + +-------+ + + + | Component | Value | Ref Range | Performed | Pathologist | | | | | At | Signature | + +-------+ + + + | HDL | 52 | mg/dl | EXTERNAL | | | Cholesterol | | | LAB | | | , External | | | | | + +-------+ + + + + + | Specimen | + + | Blood | + + + + | Resulting Agency Comment | + + | [facility] | + + + +---------+ + + | Performing | Address | City/State/Zipcode | Phone Number | | Organization | | | | + +---------+ + + | EXTERNAL LAB | | | | + +---------+ + + External Lab: Cholesterol, Total (12/16/2016) + +-------+ + + + | Component | Value | Ref Range | Performed | Pathologist | | | | | At | Signature | + +-------+ + + + | Cholesterol | 234 | mg/dl | EXTERNAL | | | , Total, | | | LAB | | | External | | | | | + +-------+ + + + + + | Specimen | + + | Blood | + + + + | Resulting Agency Comment | + + | [facility] | + + + +---------+ + + | Performing | Address | City/State/Zipcode | Phone Number | | Organization | | | | + +---------+ + + | EXTERNAL LAB | | | | + +---------+ + + External Lab: Cholesterol, LDL (12/16/2016) + +-------+ + + + | Component | Value | Ref Range | Performed | Pathologist | | | | | At | Signature | + +-------+ + + + | LDL | 122 | | EXTERNAL | | | Cholesterol | | | LAB | | | , Direct, | | | | | | External | | | | | + +-------+ + + + + + | Specimen | + + | Blood | + + + + | Resulting Agency Comment | + + | [facility] | + + + +---------+ + + | Performing | Address | City/State/Zipcode | Phone Number | | Organization | | | | + +---------+ + + | EXTERNAL LAB | | | | + +---------+ + + External Lab: eGFR (12/16/2016) + +-------+ + + + | Component | Value | Ref Range | Performed | Pathologist | | | | | At | Signature | + +-------+ + + + | eGFR, | >60 | | EXTERNAL | | | External | | | LAB | | + +-------+ + + + + + | Specimen | + + | Blood | + + + + | Resulting Agency Comment | + + | [facility] | + + + +---------+ + + | Performing | Address | City/State/Zipcode | Phone Number | | Organization | | | | + +---------+ + + | EXTERNAL LAB | | | | + +---------+ + + External Lab: Creatinine (12/16/2016) + +-------+ + + + | Component | Value | Ref Range | Performed | Pathologist | | | | | At | Signature | + +-------+ + + + | Creatinine, | 0.9 | | EXTERNAL | | | External | | | LAB | | + +-------+ + + + + + | Specimen | + + | Blood | + + + + | Resulting Agency Comment | + + | [facility] | + + + +---------+ + + | Performing | Address | City/State/Zipcode | Phone Number | | Organization | | | | + +---------+ + + | EXTERNAL LAB | | | | + +---------+ + + documented in this encounter Visit Diagnoses + + | Diagnosis | + + | Chronic kidney disease, stage IV (severe) (HCC) - Primary Chronic kidney disease, | | Stage IV (severe) | + + documented in this encounter"
--- OUTSIDE RECORDS SUMMARY | ~2020-06-16 | XMS | Encounter Summary ---
Demographics + + + | Address | [address] | | | [place] [address] | + + + | Home Phone | | + + + | Preferred Language | Unknown | + + + | Marital Status | Single | + + + | Faith Affiliation | Unknown | + + + | Race | Unknown | + + + | Ethnic Group | Other Race | + + + Author + + + | Author | [facility] | + + + | Organization | [facility] | + + + | Address | Unknown | + + + | Phone | Unavailable | + + + Support +------+ +---------+ + | Name | Relationship | Address | Phone | +------+ +---------+ + | Unk | ECON | Unknown | Unavailable | +------+ +---------+ + Care Team Providers + +------+ + | Care Associate Professor Of English Name | Role | Phone | + +------+ + | Unknown | PCP | Unavailable | + +------+ + Reason for Referral Diagnostic Testing (Routine) +--------+--------+ + + + + | Status | Reason | Specialty | Diagnoses / | Referred By | Referred To | | | | | Procedures | Contact | Contact | +--------+--------+ + + + + | Closed | | Radiology | Diagnoses | Amado, | | | | | | Neuropathy | Dimitri Rosas MD | | | | | | | [facility] | | | | | | Osteoarthrit | [facility] | | | | | | is, | [facility] | | | | | | unspecified | [address] | | | | | | osteoarthrit | [facility] | | | | | | is type, | [place], | | | | | | unspecified | [place] [address] | | | | | | site | Phone: | | | | | | Procedures | [phone] | | | | | | MRI KNEE RT | Fax: | | | | | | WO CONT | [phone] | | +--------+--------+ + + + + Diagnostic Testing (Routine) +--------+--------+ + + + + | Status | Reason | Specialty | Diagnoses / | Referred By | Referred To | | | | | Procedures | Contact | Contact | +--------+--------+ + + + + | Closed | | Radiology | Diagnoses | Amado, | | | | | | DDD | Dimitri Rosas MD | | | | | | (degenerativ | [facility] | | | | | | e disc | [facility] | | | | | | disease), | [facility] | | | | | | cervical | [address] | | | | | | Procedures | 2ND | | | | | | MRI SPINE | [place], | | | | | | CERVICAL WO | [place] [address] | | | | | | CONTRAST | Phone: | | | | | | | [phone] | | | | | | | Fax: | | | | | | | [phone] | | +--------+--------+ + + + + Diagnostic Testing (Routine) +--------+--------+ + + + + | Status | Reason | Specialty | Diagnoses / | Referred By | Referred To | | | | | Procedures | Contact | Contact | +--------+--------+ + + + + | Closed | | Radiology | Diagnoses | Amado, | | | | | | Strain of | Dimitri Rosas MD | | | | | | thoracic | [facility] | | | | | | spine, | HOSPITAL | | | | | | initial | [facility] | | | | | | encounter | [address] | | | | | | Procedures | 2ND | | | | | | MRI SPINE | [place], | | | | | | THORACIC WO | [place] [address] | | | | | | CONTRAST | Phone: | | | | | | | [phone] | | | | | | | Fax: | | | | | | | [phone] | | +--------+--------+ + + + + Diagnostic Testing (Routine) +--------+--------+ + + + + | Status | Reason | Specialty | Diagnoses / | Referred By | Referred To | | | | | Procedures | Contact | Contact | +--------+--------+ + + + + | Closed | | Radiology | Diagnoses | Amado, | | | | | | Traumatic | Dimitri Rosas MD | | | | | | arthropathy | [facility] | | | | | | of [facility] | [facility] | | | | | | elbow | [facility] | | | | | | Strain of | [address] | | | | | | other | 2ND | | | | | | muscles, | [place], | | | | | | fascia and | [place] [address] | | | | | | tendons at | Phone: | | | | | | shoulder and | [phone] | | | | | | upper arm | Fax: | | | | | | level, left | [phone] | | | | | | arm, sequela | | | | | | | Procedures | | | | | | | MRI ELBOW | | | | | | | LEFT WO | | | | | | | CONTRAST | | | +--------+--------+ + + + + Encounter Details +--------+ + + + + | Date | Type | Department | Care Team | Description | +--------+ + + + + | 02/24/ | Ancillary | Diagnostic Imaging | Amado Dimitri | | | 2017 | Orders | Services [id number] | MD FREDRICK Rosas | | | | | [facility] | [facility] | | | | | [place], [place] | CLINIC [address] | | | | | [address] | [place] [address] | | | | | | [phone] | | | | | | | [...] as of this encounter Plan of Treatment + +---------+--------+ + + | Name | Type | Priori | Associated Diagnoses | Order Schedule | | | | ty | | | + +---------+--------+ + + | MRI ELBOW LEFT WO | Imaging | Routin | Traumatic | Expected: | | CONTRAST | | e | arthropathy of left | 02/24/2017, Expires: | | | | | elbow Strain of | 03/26/2018 | | | | | other muscles, | | | | | | fascia and tendons | | | | | | at shoulder and | | | | | | upper arm level, | | | | | | left arm, sequela | | + +---------+--------+ + + | MRI SPINE THORACIC | Imaging | Routin | Strain of thoracic | Expected: | | WO CONTRAST | | e | spine, initial | 02/24/2017, Expires: | | | | | encounter | 03/26/2018 | + +---------+--------+ + + | MRI SPINE CERVICAL | Imaging | Routin | DDD (degenerative | Expected: | | WO CONTRAST | | e | disc disease), | 02/24/2017, Expires: | | | | | cervical | 03/26/2018 | + +---------+--------+ + + | MRI KNEE RT WO CONT | Imaging | Routin | Neuropathy | Expected: | | | | e | Osteoarthritis, | 02/24/2017, Expires: | | | | | unspecified | 03/26/2018 | | | | | osteoarthritis type, | | | | | | unspecified site | | + +---------+--------+ + + documented as of this encounter Visit Diagnoses + + | Diagnosis | + + | 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
--- OUTSIDE RECORDS SUMMARY | ~2020-06-16 | XMS | Encounter Summary ---
Demographics + + + | Address | [address] | | | [place] [address] | + + + | Home Phone | | + + + | Preferred Language | Unknown | + + + | Marital Status | | + + + | Hinduism Affiliation | Unknown | + + + | Race | White | + + + | Ethnic Group | Not or | + + + Author + + + | Author | [facility] | | | and [place] | + + + | Organization | [facility] | | | and [place] | + + + | Address | Unknown | + + + | Phone | Unavailable | + + + Support + + + + + | Name | Relationship | Address | Phone | + + + + + | Crystal Luzr | ECON | [address] | | | | | [place], | | | | | [place] [address] | | + + + + + Care Team Providers + +------+ + | Care Auditor Name | Role | Phone | + +------+ + PCP | Unavailable | + +------+ + Reason for Visit + +--------+ + | Reason | Onset | Comments | | | Date | | + +--------+ + | Imaging Only | 07/07/ | | | | 2014 | | + +--------+ + Encounter Details +--------+ + + + + | Date | Type | Department | Care Team | Description | +--------+ + + + + | 07/07/ | Telephone | [facility] | Will Capellan, | Imaging Only | | 2014 | | [facility] [place] | [address] | | | | | [address] | [place] | | | | | [place] | [address] | | | | | [address] | | | | | | [phone] | | | +--------+ + + + [...] + + documented as of this encounter Miscellaneous Notes Telephone Encounter - Gabriela Kinsey RN - 07/07/2015 2:19 PM PDTPhone call from X[facility] puri in MRI. States that they were unable to complete MRIs today. Patient moved around and twi tched a lot. Also has high anxiety. Patient has a double study for cervical and lumbar spine, and one is with and without contr ast, so this will take about two hours. Alex thinks general sedation may be needed for MR I. Does not think conscious sedation will be sufficient since patient moves so much. If ok f or general sedation, need new order with request for general sedation in order notes. Alex says she has no idea how they are going to do MRI for elbow. States that patient curry s to go into scanner head first, lay on his stomach, and manipulate his arm for this study. States that with Dr. Capellan's ok, patient can take Xanax before, but she is not sure if that will be enough. She does not think any other kind of sedation would work for this given the requirements for particular study. Please advise. doc umented in this encounter Plan of Treatment Not on filedocumented as of this encounter Visit Diagnoses Not on filedocumented in this encounter"
--- OUTSIDE RECORDS SUMMARY | ~2020-06-16 | XMS | Encounter Summary ---
Demographics + + + | Address | [address] | | | [place] [address] | + + + | Home Phone | | + + + | Preferred Language | Unknown | + + + | Marital Status | | + + + | Baptism Affiliation | Unknown | + + + | Race | White | + + + | Ethnic Group | Not or | + + + Author + + + | Author | [facility] | | | and [place] | + + + | Organization | [facility] | | [...] [place], | | | | | [place] [address] | | + + + + + Care Team Providers + +------+ + | Care Operations Technician Name | Role | Phone | + +------+ + | Russell Sanabria MD | PCP | | + +------+ + Reason for Visit + + + | Reason | Comments | + + + | Foot Swelling | | + + + Encounter Details +--------+ + + + + | Date | Type | Department | Care Team | Description | +--------+ + + + + | 12/07/ | Emergency | [facility] | Mihir Cadena | Cellulitis of right | | 2019 | | [facility] | DO Marty [address] | lower extremity | | | | CENTER [address] | [facility] | (Primary Dx) | | | | [place] | [place] [address] | | | | | [address] | [phone] | | | | | [phone] | | | +--------+ + + + [...] + + + | Blood Pressure | 141/85 | 12/07/2018 2:31 PM | | | | | PDT | | + + + + + | Pulse | 107 | 12/07/2018 2:31 PM | | | | | PDT | | + + + + + | Temperature | 37.3 C (99.1 F) | 12/07/2018 2:31 PM | | | | | PDT | | + + + + + | Respiratory Rate | 16 | 12/07/2018 2:31 PM | | | | | PDT | | + + + + + | Oxygen Saturation | 99% | 12/07/2018 2:31 PM | | | | | PDT | | + + + + + | Inhaled Oxygen | - | - | | | Concentration | | | | + + + + + | Weight | 105 kg (231 lb 7.7 | 12/07/2018 2:31 PM | | | | oz) | PDT | | + + + + + | Height | 182.9 cm (6') | 12/07/2018 2:31 PM | | | | | PDT | | + + + + + | Body Mass Index | 31.39 | 12/07/2018 2:31 PM | | | | | PDT [...] + + documented as of this encounter Discharge Instructions AttachmentsThe following attachments cannot be sent through Care Everywhere.Skin Infection, Cellulitis ([place])documented in this encounter Medications at Time of Discharge [...] + + +---------+ + + | | take 1 capsule by | | 0 | 02/15/20 | | | amphetamine-dextroam | mouth once daily | | | 17 | 9 | | phetamine (ADDERALL | | | | | | | XR) 30 MG 24 hr | | | | | | | capsule | | | | | | + + + +---------+ + + | Blood Glucose | 1 kit by Does not | 1 kit | 0 | 03/09/20 | | | Monitoring Suppl | apply route as | | | 19 | 9 | | (TERRI CONTOUR | needed. | | | | | | MONITOR) w/Device | | | | | | | KIT | | | | | | + + + +---------+ + + | cefTRIAXone | Inject 2 g into the | 42 each | 0 | 11/30/19 | | | (ROCEPHIN) 2 g in | vein every 24 hours | | | 19 | 9 | | sodium chloride 0.9% | for 42 days. | | | | | | 50 mL | Indications: | | | | | | IVPBIndications: | Infection of Bone | | | | | | Osteomyelitis | and Bone Marrow | | | | | + + + +---------+ + + | clindamycin | Take 1 capsule by | 84 | 0 | 11/19/19 | | | (CLEOCIN) 300 MG | mouth 3 times daily | capsule | | 19 | 9 | | capsule | for 28 days. | | | | | + + + +---------+ + + | dapagliflozin | Take 1 tablet by | 30 | 0 | 11/11/19 | | | (FARXIGA) 10 mg | mouth every morning. | tablet | | 19 | 0 | | tablet | | | | | | + + + +---------+ + + | doxycycline | Take 1 capsule by | 20 | 0 | 12/08/19 | | | (MONODOX) 100 mg | mouth 2 times daily. | capsule | | 19 | 0 | | capsule | | | | | | + + + +---------+ + + | empagliflozin | Take 1 tablet by | 30 | 0 | 11/11/19 | | | (JARDIANCE) 10 mg | mouth Daily. Start | tablet | | 19 | 9 | | tablet | when you run out of | | | | | | | insulin | | | | | + + + +---------+ + + | glucose blood | Use as dir | 100 | 0 | 11/29/19 | | | test strips (TERRI | | each | | 19 | 9 | | CONTOUR TEST) strip | | | | | | + + + +---------+ + + | insulin glargine | Inject 54 Units | 15 mL | 0 | 11/29/19 | | | (LANTUS SOLOSTAR) | under the skin 2 | | | 19 | 9 | | 100 units/mL | times daily for 30 | | | | | | injection (pen) | days. | | | | | + + + +---------+ + + | insulin lispro | Inject 0-18 Units | 3 mL | 0 | 11/29/19 | | | (HUMALOG KWIKPEN) | under the skin 4 | | | 19 | 9 | | 100 units/mL | times daily (with | | | | | | injection (pen) | meals and nightly). | | | | | | | Blood Glucose (BG) < | | | | | | | | | | | | | | 150: | | | | | | | None | | | | | | | BG 150-200: DAY: 3 | | | | | | | units. NIGHT: | | | | | | | 0 units BG | | | | | | | 201-250: DAY: 6 | | | | | | | units. NIGHT: | | | | | | | 3 units BG | | | | | | | 251-300: DAY: 9 | | | | | | | units. NIGHT: | | | | | | | 6 units BG | | | | | | | 301-350: DAY: 12 | | | | | | | units. NIGHT: 9 | | | | | | | units BG 351-400: | | | | | | | DAY: 15 | | | | | | | units. NIGHT: 12 | | | | | | | units BG > | | | | | | | 400 : DAY: 18 | | | | | | | units. NIGHT: 15 | | | | | | | units | | | | | + + + +---------+ + + | lidocaine | Place 2 patches onto | 30 | 0 | 11/12/19 | | | (LIDODERM) 5% patch | the skin Daily. | patch | | 19 | 0 | | | Apply for 12 hours, | | | | | | | then remove for 12 | | | | | | | hours. | | | | | + + + +---------+ + + | methadone 10 mg | Take 4 tablets by | | 0 | 11/12/19 | | | tablet | mouth every 8 | | | 19 | 9 | | | (eight) hours as | | | | | | | needed, | | | | | + + + +---------+ + + | ONE TOUCH | by Does not apply | 100 | 0 | 11/29/19 | | | ULTRASOFT LANCETS | route 3 times daily | each | | 19 | 9 | | MISC | (before meals). | | | | | + + + +---------+ + + | oxyCODONE | Take 30 mg by mouth | | 0 | | | | (ROXICODONE) 30 MG | 5 times daily as | | | | 9 | | immediate release | needed for Pain. | | | | | | tablet | | | | | | + + + +---------+ + + | pregabalin | Take 1 capsule by | 90 | 1 | 11/11/19 | | | (LYRICA) 100 mg | mouth 2 times daily. | capsule | | 19 | 0 | | capsule | | | | | | [...] documented as of this encounter ED Notes Mihir Cadena, - 12/10/2018 10:46 AM PDTFormatting of this note might be differ ent from the original. [facility] Cecilio Arias Emergency Department Encounter Note [address] [place] [id number] PCP:Russell Sanabria MD [phone] History CC: Foot Swelling HPI: Cecilio Arias is a 48 y.o. male who presents to the ED for evaluation of rig ht lower extremity swelling. Patient was seen in urgent care earlier and sent to the ER for further evaluation and treatment. Patient currently having IV antibiotics for osteomyeliti s. Reports that swelling in his leg has become worse and more painful, and states the urgen t care provider was concerned about compartment syndrome and sent him here for that. He den ies any numbness or coldness of the foot. He reports it has been more warm and erythematous . He denies any fevers, chills or lightheadedness. PMH: Past Medical History: Diagnosis Date Adverse effect of anesthesia Slow to wake up Diabetes mellitus (HCC) Diabetes mellitus type II, ORAL Control 10/28/2011 Elevated cholesterol Elevated hemoglobin A1c 11/07/2018 12.9 - 07/2018 12.3 - 11/2016 Emphysema of lung (HCC) GERD (gastroesophageal reflux disease) Immune deficiency disorder ([facility]) Lab results placed in chart regarding [id number] Phenotype. Osteoporosis PONV (postoperative nausea and vomiting) Seizure ([facility]) Testosterone deficiency Vitamin D deficiency PSH: Past Surgical History: Procedure Laterality Date CARPAL TUNNEL RELEASE Left 05/14/2017 Procedure: Left Elbow Joint Exploration and Bilateral Shoulder Injection; Surgeon: Nirmal Wood MD; Location: [facility] MAIN OR ELBOW SURGERY Left 11/15/2015 Procedure: Left Lateral Epicondylar Release & Injection of Left Elbow Joint ; Surgeon: Janet Wood MD; Location: [facility] MAIN OR INCISION AND DRAINAGE Right 11/07/2018 Procedure: right great toe superfical bone biopsy; Surgeon: Jose Nash MD; Location: [facility] MAIN OR KNEE ARTHROSCOPY Right 12/05/2014 Procedure: Right Knee Arthroscopy with Partial Medial Menisectomy and Medial- Femoral Tay droplasty; Surgeon: Marty Wood MD; Location: [facility] MAIN OR KNEE ARTHROSCOPY Right 02/11/2018 Procedure: Right Knee Arthroscopy & bilateral Elbow Injections, Lateral Tibial Chondroplas ty, Medial Femoral Chondroplasty, Partial medial meniscectomy; Surgeon: Marty Wood MD; Location: [facility] MAIN OR MANDIBLE SURGERY spinal cord injury Medications: Discharge Medication List as of 12/07/2018 17:28 CONTINUE these medications which have NOT CHANGED Details amphetamine-dextroamphetamine (ADDERALL XR) 30 MG 24 hr capsule take 1 capsule by mouth onc e dailyR-0, Historical Med atorvaSTATin (LIPITOR) 40 mg tablet Take 40 mg by mouth Daily.Historical Med Blood Glucose Monitoring Suppl (Infom[employer] CONTOUR MONITOR) w/Device KIT 1 kit by Does not apply route as needed.Disp-1 kit, R-0, Normal cefTRIAXone (ROCEPHIN) 2 g in sodium chloride 0.9% 50 mL IVPB Inject 2 g into the vein ever y 24 hours for 42 days. Indications: Infection of Bone and Bone MarrowDisp-42 each, R-0, Wanda nt clindamycin (CLEOCIN) 300 MG capsule Take 1 capsule by mouth 3 times daily for 28 days.Disp -84 capsule, R-0, Normal cyclobenzaprine (FLEXERIL) 10 mg tablet 1 tablet orally 3 times per dayDisp-90 tablet, R-2, Normal dapagliflozin (FARXIGA) 10 mg tablet Take 1 tablet by mouth every morning.Disp-30 tablet, R -0, Print empagliflozin (JARDIANCE) 10 mg tablet Take 1 tablet by mouth Daily. Start when you run out of insulinDisp-30 tablet, R-0, Print ergocalciferol (VITAMIN D-2) 50,000 units capsule Take 50,000 Units by mouth Once a week. O n Historical Med gabapentin (NEURONTIN) 600 MG tablet take 1 tablet by mouth three times a dayR-0, Historica l Med glucose blood test strips (Infomous CONTOUR TEST) strip Use as dirDisp-100 each, R-0, Kari l insulin glargine (LANTUS SOLOSTAR) 100 units/mL injection (pen) Inject 54 Units under the s kin 2 times daily for 30 days.Disp-15 mL, R-0, Normal insulin lispro (HUMALOG KWIKPEN) 100 units/mL injection (pen) Inject 0-18 Units under the s kin 4 times daily (with meals and nightly). Blood Glucose (BG) < 150: None BG 150-200: DAY: 3 units.NIGHT: 0 units BG 201-250: DAY: 6 units.NIGHT: 3 units BG 251-300: DAY: 9 units.NIGHT: 6 un its BG 301-350: DAY: 12 units.NIGHT: 9 units BG 351-400: DAY: 15 units.NIGHT: 12 units BG > 400: DAY: 18 units.NIGHT: 15 unitsDisp-3 mL, R-0, Print lidocaine (LIDODERM) 5% patch Place 2 patches onto the skin Daily. Apply for 12 hours, then remove for 12 hours.Disp-30 patch, R-0, Print lisinopril (PRINIVIL, ZESTRIL) 10 mg tablet Take 10 mg by mouth Daily.R-0, Historical Med metFORMIN (GLUCOPHAGE) 500 mg tablet Take 2 tablets by mouth 2 times daily.Disp-60 tablet, R-0, Print omeprazole (PRILOSEC) 20 mg capsule Take 20 mg by mouth every morning (before breakfast).[facility] Med ONE TOUCH ULTRASOFT LANCETS MISC by Does not apply route 3 times daily (before meals).Disp- 100 each, R-0, Normal oxyCODONE (ROXICODONE) 30 MG immediate release tablet Take 30 mg by mouth 5 times daily as needed for Pain.Historical Med pregabalin (LYRICA) 100 mg capsule Take 1 capsule by mouth 2 times daily.Disp-90 capsule, R -1, Print SENNA LAX 8.6 MG tablet take 4 tablets by mouth UP TO 2 TIMES A DAY NEEDED FOR CONSTIPAT IONR-0, LORENZO, Historical Med tamsulosin (FLOMAX) 0.4 mg CAPS Take 0.4 mg by mouth daily (after breakfast).R-0, Historica l Med trolamine salicylate (ASPERCREME) 10% cream legDisp-170 g, R-0, Print VENTOLIN HFA 108 (90 Base) MCG/ACT inhaler R-0, LORENZO, Historical Med Allergies: He is allergic to azithromycin; codeine; hydrocodone; and sulfa antibiotics.. Social History: He reports that he has been smoking Cigarettes and E-Cigarettes. He has a 10.00 pack-year smoking history. He has never used smokeless tobacco. He reports that he us es drugs, including Marijuana and Methamphetamines, about 7 times per week. He reports that he does not drink alcohol.. Review of Systems Constitutional: Negative for chills and fever. HENT: Negative for congestion. Eyes: Negative for visual disturbance. Respiratory: Negative for chest tightness and shortness of breath. Cardiovascular: Negative for chest pain and leg swelling. Gastrointestinal: Negative for abdominal pain, diarrhea, nausea and vomiting. Genitourinary: Negative for dysuria and hematuria. Musculoskeletal: Positive for myalgias. Negative for arthralgias. Skin: Positive for color change. Negative for rash. Neurological: Negative for weakness and headaches. Psychiatric/Behavioral: Negative for behavioral problems. Physical Exam Vital Signs: Temp: 37.3 C (99.1 F) Pulse: 107 Resp: 16 BP: 141/85 SpO2: 99 % Physical Exam Constitutional: He is oriented to person, place, and time. He appears well-developed and we ll-nourished. No distress. HENT: Head: Normocephalic and atraumatic. Nose: Nose normal. Eyes: Pupils are equal, round, and reactive to light. EOM are normal. Neck: Normal range of motion. Neck supple. Cardiovascular: Normal rate, regular rhythm and intact distal pulses. No murmur heard. Pulmonary/Chest: Effort normal and breath sounds normal. No respiratory distress. Abdominal: Soft. He exhibits no distension. There is no tenderness. There is no rebound. Musculoskeletal: Normal range of motion. He exhibits edema and tenderness. He exhibits no d eformity. Compartments of right lower extremity are soft, there is palpable pulses distally, sensatio n is intact, there is no pain with passive range of motion Neurological: He is alert and oriented to person, place, and time. Skin: Skin is warm and dry. No rash noted. There is erythema. Psychiatric: His behavior is normal. Nursing note and vitals reviewed. ED Course and Medical Decision Making Cecilio Arias presented to the Emergency Department for evaluation, and he was tr iaged to room ED15. I reviewed the nursing notes, and he was evaluated by me. IMPRESSION 1. Cellulitis of right lower extremity Medical Decision Making as of Dec 10 1046 Mon Dec 07, 2018 1659 CRP, High Sensitive: (!) 3.32 1659 ESR: [address] Lower Extremity Right w Contrast 1701 CT Lower Extremity Right w Contrast 1701 Extensive cellulitis of the right calf and foot with no evidence for abscess. No evident evidence for osteomyelitis involving calf bones. If clinically indicated, MRI can be considered. Mild erosive change in the great toe distal phalanx consistent with history of osteomyelitis. Светлана Dec 10, 2018 1044 CRP, High Sensitive: (!) 3.32 1044 ESR: 13 1044 WBC: 7.[address] Lower Extremity Right w Contrast 1044 Extensive cellulitis of the right calf and foot with no evidence for abscess. No evident evidence for osteomyelitis involving calf bones. If clinically indicated, MRI can be considered. Mild erosive change in the great toe distal phalanx consistent with history of osteomyelitis. 1044 Patient's workup is fairly unremarkable. His labs are stable. Patient has known cell ulitis, that is slightly worse. He is currently receiving IV Rocephin, so Bactrim will be a dded to his regimen. He has no signs of compartment syndrome or necrotizing fasciitis. Pat ient discharged in stable condition. He expressed understanding of his condition and is agr eeable to plan. He will follow up with his primary care provider after discharge. Mihir Cadena DO 12/10/18 1048 NNored, Sue Rosas RN - 12/07/2018 2:27 PM PDTPatient presenting to ED with chief complaint of swelling in r ight foot and lower leg. Patient also has redness and warmth to right lower leg. Patient has a history of osteomyelitis, and currently is being treated in infusion services.Electronica lly signed by Sue Sheldon RN at 12/07/2018 2:31 PM PDTdocumented in this encounter Plan of Treatment + +------+--------+ + + | Name | Type | Priori | Associated Diagnoses | Date/Time | | | | ty | | | + +------+--------+ + + | ED INFORMATION | SHITAL | Routin | | 12/07/2018 2:17 PM | | EXCHANGE | | e | | PDT | + +------+--------+ + + documented as of this encounter Procedures + +--------+ + + + | Procedure Name | Priori | Date/Time | Associated Diagnosis | Comments | | | ty | | | | + +--------+ + + + | CT LOWER EXTREMITY | STAT | 12/07/2018 | | Results for this | | RIGHT W CONTRAST | | 4:28 PM | | procedure are in the | | | | PDT | | results section. | + +--------+ + + + | SEDIMENTATION RATE | STAT | 12/07/2018 | | Results for this | | | | 4:02 PM | | procedure are in the | | | | PDT | | results section. | + +--------+ + + + | CBC WITH | STAT | 12/07/2018 | | Results for this | | DIFFERENTIAL | | 4:02 PM | | procedure are in the | | | | PDT | | results section. | + +--------+ + + + | C-REACTIVE PROTEIN, | STAT | 12/07/2018 | | Results for this | | HIGH SENSITIVITY | | 4:02 PM | | procedure are in the | | | | PDT | | results section. | + +--------+ + + + | COMPREHENSIVE | STAT | 12/07/2018 | | Results for this | | METABOLIC PANEL | | 4:02 PM | | procedure are in the | | | | PDT | | results section. | + +--------+ + + + | ED INFORMATION | Routin | 12/07/2018 | | | | EXCHANGE | e | 2:17 PM | | | | | | PDT | | | + +--------+ + + + +---+--------+ | | | | | Proced | | | ure | | | Note - | | | Gloria, | | | Lab In | | | | | | Hlseve | | | n - | | | 12/07/ | | | 2018 | | | 2:18 | | | PM PDT | | | | | | Format [...] | | | FICATI | | | ON?/ | | | | | | 9 | | | 14:14? | | | AVLONI | | | TIS, | | | DENIS | | | OPHER | | | S?MRN: | | | | | | [id number] | | | [id number] | | | riteri | | | a Met | | | PDMP | | | 4 | | | visits | | | in | | | 60Secu | | | rity | | | [...] | | | system | | | .Presc | | | riptio | | | n Drug | | | | | | Report | | | (12 | | | Mo.)Rx | | | | | | Detail | | | sFill | | | Date | | | Drug | | | Descri | | | ption | | | Qty. | | | Prescr | | | iber | | | CS MED | | | | | | 2019-0 | | | 2-21 | | | METHAD | | | ONE | | | HCL 10 | | | MG | | | TABLET | | | 96 | | | RAYMUNDO-HW | | | A FRANCK | | | 2 360 | | | 2018-1 | | | 1-15 | | | METHAD | | | ONE | | | HCL 10 | | | MG | | | TABLET | | | 360 | | | KAT | | | DENIS | | | ENSEN | | | 2 360 | | | 2018-1 | | | 1-15 | | | OXYCOD | | | ONE | | | HCL 30 | | | MG | | | TABLET | | | 150 | | | KAT | | | DENIS | | | ENSEN | | | 2 225 | | | 2018 | | | 0-09 | | | DEXTRO | | | AMP-AM | | | PHET | | | ER 30 | | | MG CAP | | | 30 | | | KAT | | | DENIS | | | ENSEN | | | 2 0 | | | 2018 | | | 0-09 | | | METHAD | | | ONE | | | HCL 10 | | | MG | | | TABLET | | | 480 | | | KAT | | | DENIS | | | ENSEN | | | 2 480 | | | 2018 | | | 0-09 | | | OXYCOD | | | ONE | | | HCL 30 | | | MG | | | TABLET | | | 180 | | | KAT | | | DENIS | | | ENSEN | | | 2 270 | | | 2017-09 | | | 0-09 | | | DEXTRO | | | AMP-AM | | | PHETAM | | | IN 20 | | | MG TAB | | | 75 | | | KAT | | | DENIS | | | ENSEN | | | 2 0 | | | 2018 | | | 8-27 | | | METHAD | | | ONE | | | HCL 10 | | | MG | | | TABLET | | | 480 | | | KAT | | | DENIS | | | ENSEN | | | 2 480 | | | 2018 | | | 827 | | | OXYCOD | | | ONE | | | HCL 30 | | | MG | | | TABLET | | | 180 | | | KAT | | | DENIS | | | ENSEN | | | 2 270 | | | 2018 | | | 8 | | | DEXTRO | | | AMP-AM | | | PHETAM | | | IN 20 | | | MG TAB | | | 75 | | | KAT | | | DENIS | | | ENSEN | | | 2 0 | | | 2018-0 | | | 8-27 | | | DEXTRO | | | AMP-AM | | | PHET | | | ER 30 | | | MG CAP | | | 30 | | | KAT | | | DENIS | | | ENSEN | | | 2 0 | | | 2018-0 | | | 7-20 | | | OXYCOD | | | ONE | | | HCL 30 | | | MG | | | TABLET | | | 180 | | | KAT | | | DENIS | | | ENSEN | | | 2 270 | | | 2018-0 | | | 7-20 | | | METHAD | | | ONE | | | HCL 10 | | | MG | | | TABLET | | | 480 | | | KAT | | | DENIS | | | ENSEN | | | 2 480 | | | 2018 | | | 720 | | | DEXTRO | | | AMP-AM | | | PHET | | | ER 30 | | | MG CAP | | | 30 | | | KAT | | | DENIS | | | ENSEN | | | 2 0 | | | 2018 | | | 720 | | | DEXTRO | | | AMP-AM | | | PHETAM | | | IN 20 | | | MG TAB | | | 75 | | | KAT | | | DENIS | | | ENSEN | | | 2 0 | | | 2018 | | | 6-18 | | | METHAD | | | ONE | | | HCL 10 | | | MG | | | TABLET | | | 480 | | | KAT | | | DENIS | | | ENSEN | | | 2 480 | | | 2018 | | | 618 | | | DEXTRO | | | AMP-AM | | | PHET | | | ER 30 | | | MG CAP | | | 30 | | | KAT | | | DENIS | | | ENSEN | | | 2 0 | | | 2018 | | | 618 | | | OXYCOD | | | ONE | | | HCL 30 | | | MG | | | TABLET | | | 180 | | | KAT | | | DENIS | | | ENSEN | | | 2 270 | | | [id number] | | | 6-05 | | | DEXTRO | | | AMP-AM | | | PHETAM | | | IN 20 | | | MG TAB | | | 75 | | | KAT | | | DENIS | | | ENSEN | | | 2 0 | | | [id number] | | | 5-19 | | | OXYCOD | | | ONE | | | HCL 30 | | | MG | | | TABLET | | | 180 | | | KAT | | | DENIS | | | ENSEN | | | 2 270 | | | Showin | | | [...] | | II-V | | | Rx 27 | | | CS-II | | | Rx 27 | | | Quanti | | | ty | | | Dispen | | | sed | | | 5,151 | | | Unique | | | | | | Prescr | | | ibers | | | 2 | | | Unique | | | | | | Pharma | | | cies 2 | | | | | | Benzos | | | 0 | | | Opioid | | | s 15 | | | Long | | | [...] | | | Center | | | 10 0 | | | Kadlec | | | | | | [facility] | | | anding | | | ED 1 | | | 0 | | | Total | | | 11 0 | | | Note: | | [...] | | | Summar | | | yShowi | | | ng 10 | | | most | | | recent | | | | | | visits | | | out | | | of 13 | | | in the | | | past | | | 12 | | | months | | | Date | | | Facili | | | ty | | | City | | | State | | | Type | | | Diagno | | | ses or | | | Chief | | | | | | Compla | | | int | | | Mar | | | 18, | | | 2019 | | | Provid | | | ence | | | [facility] | [place] | | | [place] | | | Emerge | | | ncy | | | foot | | | swelli | | | ng | | | Mar | | | [...] | | ing by | | | | | | unspec | | | ified | | | narcot | | | ics, | | | accide | | | ntal | | | (unint | | | ention | | | al), | | | initia | | | l | | | encoun | | | ter | | | | | | Subacu [...] | | | d | | | Type 2 | | [...] | | | limb | | | Dec | | | 14, | | | 2018 | | | Provid | | | ence | | | [facility] [place] | | | [place] | | | Emerge | | | ncy | | | pick | | | line | | | issue | | | | | | Vascul | | | ar | | | Access | | | | | | Proble | | | m | | | Altere | | | d | | | Mental | | | | | | Status | | | | | | Unspec | | | ified | | | infect | | | ion | | | due to | | | | | | centra | | | l | | | venous | | | | | | cathet | | | er, | | | initia | | | l | | | encoun | | | ter | | | | | | Poison | | | ing by | | | | | | unspec | | | ified | | | narcot | | | ics, | | | accide | | | ntal | | | (unint | | | ention | | | al), | | | initia | | | l | | | encoun | | | ter | | | | | | Hypote | | | nsion, | | | | | | unspec | | | ified | | | | | | Patien | | | t's | | | noncom | | | plianc | | | e with | | | other | | | | | | medica | | | l | | | treatm | | | ent | | | and | | | regime | | | n | | | Acute | | | respir | | | atory | | | failur | | | e with | | | | | | hypoxi | | | a | | | Acute | | | kidney | | | | | | failur | | | e, | | | unspec | | | ified | | | | | | Osteom | | | yeliti | | | s, | | | unspec | | | ified | | | Nov | | | 19, | | | 2018 | | | Provid | | | ence | | | [facility] [place] | | | [place] | | | Emerge | | | ncy | | | | | | infusi | | | on | | | Proced | | | ure | | | and | | | treatm | | | ent | | | not | | | felisha | | | d out | | | due to | | | | | | patien | | | t | | | leavin | | | g | | | prior | | | to | | | being | | | seen | | | by | | | health | | | care | | | provid | | | er | | | Nov | | | 15, | | | 2018 | | | Provid | | | ence | | | [facility] [place] | | | [place] | | | Emerge | | | ncy | | | foot | | | absces | | | s | | | Foot | | | Wound | | | | | | Sepsis | | | , | | | unspec | | | ified | | | organi | | | sm | | | Severe | | | | | | sepsis | | | | | | withou | | | t | | | septic | | | shock | | | | | | Other | | | acute | | | osteom | | | yeliti | | | s, | | | right | | | ankle | | | and | | | foot | | | Type | | | 2 | | | diabet | | | es | | | mellit | | | us | | | with | | | other | | | specif | | | ied | | | compli | | | cation | | | | | | Hyperl | | | ipidem | | | ia, | | | unspec | | | ified | | | Nov | | | 15, | | | 2018 | | | Provid | | | ence | | | [facility] [place] | | | [place] | | | Emerge | | | ncy | | | | | | absces | | | s on | | | right | | | foot | | | | | | Proced | | | ure | | | and | | | treatm | | | ent | | | not | | | felisha | | | d out | | | due to | | | | | | patien | | | t | | | leavin | | | g | | | prior | | | to | | | being | | | seen | | | by | | | health | | | care | | | provid | | | er | | | Other | | | acute | | | osteom | | | yeliti | | | s, | | | right | | | ankle | | | and | | | foot | | | Nov | | | 15, | | | 2018 | | | [facility] | | | [place] | | | Urgent | | | Care | | | [place] 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 | [place] | | | [place] | | | Medica | | | l | | | Surgic | | | al | | | Unspec | | | ified | | | infect | | | ion | | | due to | | | | | | centra | | | l | | | venous | | | | | | cathet | | | er, | | | initia | | | l | | | encoun | | | ter | | | Other | | | | | | mechan | | | ical | | | compli | | | cation | | | of | | | other | | | cardia | | | c and | | | vascul | | | ar | | | device | | | s and | | | implan | | | ts, | | | initia | | | l | | | encoun | | | ter | | | Acute | | | | | | respir | | | atory | | | failur | | | e with | | | | | | hypoxi | | | a | | | Osteom | | | yeliti | | | s, | | | unspec | | | ified | | | | | | Acute | | | kidney | | | | | | failur | | | e, | | | unspec | | | ified | | | | | | Patien | | | t's | | | noncom | | | plianc | | | e with | | | other | | | | | | medica | | | l | | | treatm | | | ent | | | and | | | regime | | | n | | | Hypote | | | nsion, | | | | | | unspec | | | ified | | | | | | Poison | | | ing by | | | | | | unspec | | | ified | | | narcot | | | ics, | | | accide | | | ntal | | | (unint | | | ention | | | al), | | | initia | | | l | | | encoun | | | ter | | | | | | Opioid | | | | | | depend | | | ence, | | | uncomp | | | licate | | | d | | | Type 2 | | | | | | diabet | | | es | | | mellit | | | us | | | with | | | other | | | specif | | | ied | | | compli | | | cation | | | Nov | | | 15, | | | 2018 | | | Provid | | | ence | | | [facility] | [place] | | | [place] | | | Surgic | | | al | | | Servic | | | es | | | Other | | | acute | | | osteom | | | yeliti | | | s, | | | right | | | ankle | | | and | | | foot | | | | | | Severe | | | | | | sepsis | | | | | | withou | | | t | | | septic | | | shock | | | | | | Hyperl | | | ipidem | | | ia, | | | unspec | | | ified | | | | | | Sepsis | | | , | | | unspec | | | ified | | | organi | | | sm | | | Type 2 | | | | | | diabet | | | es | | | mellit | | | us | | | with | | | other | | | specif | | | ied | | | compli | | | cation | | | | | | Other | | | genera | | | l | | | sympto | | | ms and | | | signs | | | | | | Encoun | | | ter | | | for | | | adjust | | | ment | | | and | | | manage | | | ment | | | of | | | vascul | | | ar | | | access | | | | | | device | | | Care | | | | | | Provid | | | ersThe | | | re are | | | no | | | care | | | provid | | | ers on | | | | | | record | | | at | | | this | | | time. | | | [facility] | | | [...] | | | https: | | | //secu | | | [email or web address] | | | [email or web address] | | | [email or web address] | | | m/[email or web address] | | | ent/17 | | | [id number] | | | [id number] | | | [id number] | | | [id number] | | | [id number] | | | [id number] | | | The | | | above | | | inform | | | ation | | | is | | | provid | | | ed for | | | the | | | sole | | | purpos | | | e of | | | patien | | | t | | | treatm | | | ent. | | | Use of | | | this | | | inform | | | ation | | | beyond | | | the | | | terms | | | of | | | Data | | | Sharin | | | g | | | Memora | | | ndum | | | of | | | Unders | | | tandin | | | g and | | | Licens | | | e | | | Agreem | | | ent is | | | | | | prohib | | | ited. | | | In | | | certai | | | n | | | cases | | | not | | | all | | | visits | | | may | | | be | | | repres | | | ented. | | | | | | Consul | | | t the | | | aforem | | | ention | | | ed | | | facili | | | ties | | | for | | | additi | | | onal | | | inform | | | ation. | | | ? | | | 2019 | | | [facility] | | | tive | | | Med[employer] | | | l | | | [employer] | | | log[employer] | | | , [employer] | | | - | | | [place] | | | [place] | | | [place], | | | [place] - | | | [email or web address] | | | ollect | | | ivemed | | | icalte | | | [email or web address] | | | | +---+--------+ documented in this encounter Results CT Lower Extremity Right w Contrast (12/07/2018 4:28 PM PDT) + + | Specimen | + + | | + + + + + | Narrative | Performed At | + + + | CT LOWER EXTREMITY RIGHT W CONTRAST 12/07/2018 4:07 PM HISTORY: | [facility] | | Cellulitis. COMPARISON: Multiple priors. PROTOCOL: Thin axial | | | CT images of the right calf and foot were obtained after initiation | | | of a 5 mL Omnipaque 350. Ejection views were acquired. FINDINGS: | | | There is extensive subcutaneous edema throughout the right calf and | | | foot consistent with cellulitis. This appears to be more significant | | | laterally. There does not appear to be evidence for myositis. No | | | large drainable fluid collection is seen. Limited evaluation of the | | | vasculature shows gross patency. There are no acute osseous findings | | | of the calf. Mild erosive change is in the great toe distal phalanx | | | consistent with history of osteomyelitis. IMPRESSION - Extensive | | | cellulitis of the right calf and foot with no evidence for abscess. | | | No evident evidence for osteomyelitis involving calf bones. If | | | clinically indicated, MRI can be considered. Mild erosive change | | | in the great toe distal phalanx consistent with history of | | | osteomyelitis. Dictated and Signed by: Kyle Peoples MD | | | Electronically signed: 12/07/2018 4:46 PM | | + + + + + | Procedure Note | + + | Gloria, Rad Results In - 12/07/2018 4:[address] LOWER EXTREMITY RIGHT W CONTRAST | | 12/07/2018 4:07 PMHISTORY: Cellulitis.COMPARISON: Multiple priors.PROTOCOL: Thin axial CT | | images of the right calf and foot were obtained afterinitiation of a 5 mL Omnipaque | | 350. Ejection views were acquired.FINDINGS:There is extensive subcutaneous edema | | throughout the right calf and footconsistent with cellulitis. This appears to be more | | significant laterally. Theredoes not appear to be evidence for myositis. No large | | drainable fluid collectionis seen. Limited evaluation of the vasculature shows gross | | patency. There are noacute osseous findings of the calf. Mild erosive change is in the | | great toedistal phalanx consistent with history of osteomyelitis.IMPRESSION -Extensive | | cellulitis of the right calf and foot with no evidence for abscess.No evident evidence | | for osteomyelitis involving calf bones. If clinicallyindicated, MRI can be | | considered.Mild erosive change in the great toe distal phalanx consistent with history | | ofosteomyelitis.Dictated and Signed by: Kyle Peoples MD Electronically signed: | | 12/07/2018 4:46 PM | |acute osseous findings of the calf. Mild erosive change is in the great toe | |distal phalanx consistent with history of osteomyelitis. | | | |IMPRESSION - | |Extensive cellulitis of the right calf and foot with no evidence for abscess. | | | |No evident evidence for osteomyelitis involving calf bones. If clinically | |indicated, MRI can be considered. | | | |Mild erosive change in the great toe distal phalanx consistent with history of | |osteomyelitis. | | | |Dictated and Signed by: Kyle Peoples MD | | Electronically signed: 12/07/2018 4:46 PM | + + + +---------+ + + | Performing | Address | City/State/Zipcode | Phone Number | | Organization | | | | + +---------+ + + | [facility] | | | | + +---------+ + + Sedimentation Rate (12/07/2018 4:02 PM PDT) + +-------+ + + + | Component | Value | Ref Range | Performed | Pathologist | | | | | At | Signature | + +-------+ + + + | Erythrocyte | 13 | <15 mm/hr | [facility] | | | | | [facility] | | | [facility] | | | MEDICAL | | | on Rate | | | CENTER - | | [...] [address] | [place] | [phone] | | [facility] | | [address] | | | - LABORATORY | | | | + + + + + C-Reactive Protein, High Sensitivity (12/07/2018 4:02 PM PDT) + + + + + + | Component | Value | Ref Range | Performed | Pathologist | | | | | At | Signature | + + + + + + | CRP, High | 3.32 (H) | <=3.00 mg/L | [facility] | | | Sensitive | | | [facility] | | | | [...] + | [facility] | [address] | [place] | [phone] | | [facility] | | [address] | | | - LABORATORY | | | | + + + + + Comprehensive Metabolic Panel (12/07/2018 4:02 PM PDT) + + + + + + | Component | Value | Ref Range | Performed | Pathologist | | | | | At | Signature | + + + + + + | Na | 136 | 136 - 145 | [facility] | | | | | mmol/L | [facility] | | | | | | [facility]ICAL | | | | | | CENTER - | | | | | | LABORATORY | | + + + + + + | K | 3.9 | 3.4 - 5.1 | [facility] | | | | | mmol/L | [facility] | | | | | | MEDICAL | | | | | | CENTER - | | | | | | LABORATORY | | + + + + + + | Cl | 95 (L) | 98 - 107 mmol/L | [facility] | | | | | | [facility] | | [facility] | | | MEDICAL | | | | | | CENTER - | | | | | | LABORATORY | | + + + + + + | CO2 | 35 (H) | 20 - 31 mmol/L | [facility] | | | | | | [facility] | | | | | | MEDICAL | | | | | | CENTER - | | | | | | LABORATORY | | + + + + + + | Anion Gap | 6 | 3 - 16 mmol/L | [facility] | | | | | | [facility] | | | | | | MEDICAL | | | | | | CENTER - | | | | | | LABORATORY | | + + + + + + | Glucose | 390 (H) | 60 - 106 mg/dL | [facility] | | | | | | [facility] | | | | | | MEDICAL | | | | | | CENTER - | | | | | | LABORATORY | | + + + + + + | BUN | 12 | 9 - 23 mg/dL | [facility] | | | | | | [facility] | | | | | | MEDICAL | | | | | | CENTER - | | | | | | LABORATORY | | + + + + + + | Creatinine | 1.07 | 0.70 - 1.30 | [facility] | | | | | mg/dL | [facility] | | | | | | MEDICAL | | | | | | CENTER - | | | | | | LABORATORY | | + + + + + + | eGFR, | >60 | >=60 | [facility] | | | non- | | mL/min/1.73m2 | [facility] | | | [place] | | | MEDICAL | | | | | | CENTER - | | | | | | LABORATORY | | + + + + + + | Calcium | 9.2 | 8.7 - 10.4 | [facility] | | | | | mg/dL | [facility] | | | | | | MEDICAL | | | | | | CENTER - | | | | | | LABORATORY | | + + + + + + | Albumin | 3.9 | 3.2 - 4.8 g/dL | [facility] | | | | | | [facility] | | | | | | MEDICAL | | | | | | CENTER - | | | | | | LABORATORY | | + + + + + + | Bilirubin | <0.2 (L) | 0.3 - 1.2 mg/dL | [facility] | | | Total | | | [facility] | | | | | | MEDICAL | | | | | | CENTER - | | | | | | LABORATORY | | + + + + + + | Total | 6.0 | 5.7 - 8.2 g/dL | [facility] | | | Protein | | | [facility] | | | | | | MEDICAL | | | | | | CENTER - | | | | | | LABORATORY | | + + + + + + | AST | 25 | 0 - 34 U/L | [facility] | | | | | | [facility] | | | | | | MEDICAL | | | | | | CENTER - | | | | | | LABORATORY | | + + + + + + | ALT | 29 | 10 - 49 U/L | [facility] | | | | | | [facility] | | | | | | MEDICAL | | | | | | CENTER - | | | | | | LABORATORY | | + + + + + + | Alkaline | 134 (H) | 46 - 116 U/L | [facility] | | | Phosphatase | | | [facility] | | | | | | MEDICAL | | | | | | CENTER - | | | | | | LABORATORY | | + + + + + + | Globulin | 2.1 | 2.1 - 3.8 g/dL | [facility] | | | | | | [facility] | | | | | | MEDICAL | | | | | | CENTER - | | | | | | LABORATORY | | + + + + + + | Albumin/Michelle | 1.9 | 0.8 - 1.9 | [facility] | | | bulin Ratio | | | [facility] | | | | | | MEDICAL | | | | | | CENTER - | | | | | | LABORATORY | | + + + + + + | BUN/Creatin | 11.2 | | [facility] | | | ine Ratio | | | [facility] | | [...] + | [facility] | [address] | [place] | [phone] | | [facility] | | [address] | | | - LABORATORY | | | | + + + + + CBC with Differential (12/07/2018 4:02 PM PDT) + + + + + + | Component | Value | Ref Range | Performed | Pathologist | | | | | At | Signature | + + + + + + | White Blood | 7.8 | 4.0 - 11.0 K/uL | [facility] | | | Cells | | | [facility] | | | | | | MEDICAL | | | | | | CENTER - | | | | | | LABORATORY | | + + + + + + | Red Blood | 3.72 (L) | 4.30 - 5.70 | [facility] | | | Cells | | M/uL | [facility] | | | | | | MEDICAL | | | | | | CENTER - | | | | | | LABORATORY | | + + + + + + | Hemoglobin | 10.6 (L) | 13.5 - 18.0 | [facility] | | | | | g/dL | [facility] | | | | | | MEDICAL | | | | | | CENTER - | | | | | | LABORATORY | | + + + + + + | Hematocrit | 33.6 (L) | 40.0 - 51.0 % | [facility] | | | | | | [facility] | | | | | | MEDICAL | | | | | | CENTER - | | | | | | LABORATORY | | + + + + + + | MCV | 90.3 | 83.0 - 101.0 fL | [facility] | | | | | | [facility] | | | | | | MEDICAL | | | | | | CENTER - | | | | | | LABORATORY | | + + + + + + | MCH | 28.5 | 28.0 - 35.0 pg | [facility] | | | | | | [facility] | | | | | | MEDICAL | | | | | | CENTER - | | | | | | LABORATORY | | + + + + + + | MCHC | 31.5 (L) | 32.0 - 36.0 | [facility] | | | | | g/dL | [facility] | | | | | | MEDICAL | | | | | | CENTER - | | | | | | LABORATORY | | + + + + + + | RDW-CV | 14.6 | <15.0 % | [facility] | | | | | | [facility] | | | [facility] | | MEDICAL | | | | | | CENTER - | | | | | | LABORATORY | | + + + + + + | RDW-SD | 47.3 (H) | 35.1 - 46.3 fL | [facility] | | | | | | [facility] | | | | | | MEDICAL | | | | | | CENTER - | | | | | | LABORATORY | | + + + + + + | Platelet | 248 | 140 - 440 K/uL | [facility] | | | Count | | | [facility] | | | | | | MEDICAL | | | | | | CENTER - | | | | | | LABORATORY | | + + + + + + | MPV | 10.6 | 6.5 - 12.4 fL | [facility] | | | | | | [facility] | | | | | | MEDICAL | | | | | | CENTER - | | | | | | LABORATORY | | + + + + + + | % | 58.0 | 45.0 - 82.0 % | [facility] | | | Neutrophils | | | [facility] | | | | | | MEDICAL | | | | | | CENTER - | | | | | | LABORATORY | | + + + + + + | % | 25.9 | 20.0 - 45.0 % | [facility] | | | Lymphocytes | | | [facility] | | | | | | MEDICAL | | | | | | CENTER - | | | | | | LABORATORY | | + + + + + + | % Monocytes | 10.6 | 4.0 - 12.0 % | [facility] | | | | | | [facility] | | | | | | MEDICAL | | | | | | CENTER - | | | | | | LABORATORY | | + + + + + + | % | 3.5 | 0.0 - 5.0 % | [facility] | | | Eosinophils | | | [facility] | | | | | | MEDICAL | | | | | | CENTER - | | | | | | LABORATORY | | + + + + + + | % Basophils | 0.8 | 0.0 - 1.0 % | [facility] | | | | | | [facility] | | | | | | MEDICAL | | | | | | CENTER - | | | | | | LABORATORY | | + + + + + + | % Immature | 1.2 (H)Comment: | 0.0 - 0.4 % | [facility] | | | Granulocyte | Preliminary studIes have | | [facility] | | | s | indicated the IG% | | MEDICAL | | | | and/or IG# show promise | | CENTER - | | | | as an early screen for | | LABORATORY | | | | infection. | | | | + + + + + + | Absolute | 4.50 | 1.80 - 8.50 | [facility] | | | Neutrophils | | K/uL | [facility] | | | | | | MEDICAL | | | | | | CENTER - | | | | | | LABORATORY | | + + + + + + | Absolute | 2.01 | 0.60 - 3.20 | [facility] | | | Lymphocytes | | K/uL | [facility] | | | | | | MEDICAL | | | | | | CENTER - | | | | | | LABORATORY | | + + + + + + | Absolute | 0.82 | 0.00 - 1.00 | [facility] | | | Monocytes | | K/uL | [facility] | | | | | | MEDICAL | | | | | | CENTER - | | | | | | LABORATORY | | + + + + + + | Absolute | 0.27 | 0.00 - 0.40 | [facility] | | | Eosinophils | | K/uL | [facility] | | | | | | MEDICAL | | | | | | CENTER - | | | | | | LABORATORY | | + + + + + + | Absolute | 0.06 | 0.00 - 0.10 | [facility] | | | Basophils | | K/uL | [facility] | | | | | | MEDICAL | | | | | | CENTER - | | | | | | LABORATORY | | + + + + + + | Absolute | 0.09 (H) | 0.00 - 0.03 | [facility] | | | Immature | | K/uL | [facility] | | | Granulocyte | | | MEDICAL | | | s | | | CENTER - | | | | | | LABORATORY | | + + + + + + | % nRBC | 0 | 0 - 2 per 100 | [facility] | | | | | WBC's | [facility] | | | | | | MEDICAL | | | | | | CENTER - | | | | | | LABORATORY | | + + + + + + | Absolute | 0.02 (H)Comment: | 0.00 - 0.01 | [facility] | | | nRBC | Presence of any NRBC's | K/uL | [facility] | | | | in adults is clinically | | MEDICAL | | | | significant | | CENTER - | | | | | | LABORATORY | | + + + + + + + + | Specimen | + + | Blood | + + + + + + + | Performing | Address | City/State/Zipcode | Phone Number | | Organization | | | | + + + + + | [facility] | [address] | [place] | [phone] | | [facility] | | [address] | | | - LABORATORY | | | | + + + + + documented in this encounter Visit Diagnoses + + | Diagnosis | + + | Cellulitis of right lower extremity - Primary Cellulitis and abscess of leg, except | | foot | + + documented in this encounter Administered Medications + +--------+ +--------+------+------+ | Medication Order | MAR | Action | Dose | Rate | Site | | | Action | Date | | | | + +--------+ +--------+------+------+ | iohexol (OMNIPAQUE 350) 350 | Given | 12/08/19 | 85 mLs | | | | mg/mL injection 85 mL 85 mL, | | 19 4:31 | | | | | Intravenous, ONCE PRN, Other, for | | PM PDT | | | | | imaging CT study, Starting Mon | | | | | | | 12/07/18 at 1631, For 1 dose, | | | | | | | Radiology | | | | | | + +--------+ +--------+------+------+ +---+---+ | | | +---+---+ documented in this encounter"
--- OUTSIDE RECORDS SUMMARY | ~2020-06-16 | XMS | Encounter Summary ---
Demographics + + + | Address | [address] | | | [place] [address] | + + + | Home Phone | | + + + | Preferred Language | Unknown | + + + | Marital Status | | + + + | Worship Affiliation | Unknown | + + + [...] [place], | | | | | [place] [address] | | + + + + + Care Team Providers + +------+ + | Care Drawing In Machine Tender Helper Name | Role | Phone | + +------+ + | Dimitri Fischer MD | PCP | | + +------+ + Reason for Visit Auth/Cert +--------+--------+ + + + + | Status | Reason | Specialty | Diagnoses / | Referred By | Referred To | | | | | Procedures | Contact | Contact | +--------+--------+ + + + + | | | | Diagnoses | | [place], | | | | | | | Marty Elise MD | | | | | 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 | | [id number] Phone: | | | | | elbow | | [phone] | | | | | Benign | | Fax: | | | | | neoplasm of | | [phone] | | | | | connective | | | | | | | and other | | | | | | | soft tissue, | | | | | | | unspecified | | | | | | | | | | | | | | 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 | | | | | | | elbow | | | | | | | [[id number]], | | | | | | | Procedures | | | | | | | GA EXPLORE | | | | | | | ELBOW JOINT | | | | | | | GA | | | | | | | BETAMETHASON | | | | | | | E ACET&SOD | | | | | | | PHOSP, 3 MG | | | +--------+--------+ + + + + Encounter Details +--------+ + + + + | Date | Type | Department | Care Team | Description | +--------+ + + + + | 05/14/ | Anesthesia | [facility] | Vida Isaacs | | | 2017 | Event | [facility] | MD Carmen [address] | | | | | [address] | [address] [place] | | | | | Nicolasa Baldwin MD | [place] [address] | | | | | [address] | | | | | | [phone] | | | | | | | Marty Chong | | | | | | MD Eddie [address] | | | | | | [address] [place] | | | | | | [place] [address] | | | | | | | | | | | | | | +--------+ + + + + Anesthesia Record + + + + + | Procedure Name | Responsible | Anesthesia Start | Anesthesia Stop Time | | | Anesthesiologist | Time | | + + + + + | Left Elbow Joint | Vida Isaacs, | 05/14/17 0943 | 05/14/17 1134 | | Exploration and | MD | | | | Bilateral Shoulder | | | | | Injection (Left | | | | | Elbow) | | | | + + + + + +----+---+ + + | Da | T | Event | Comment | | te | i | | | | | m | | | | | e | | | +----+---+ + + | 08 | 0 | | | | /2 | 9 | | | | 3/ | 0 | | | | 20 | 2 | | | | 17 | | | | +----+---+ + + | | 0 | An Checkout | Pre-use anesthesia machine/equipment checkout. | | | 9 | | | | | 3 | | | | | 6 | | | +----+---+ + + | | 0 | Antibiotic | | | | 9 | Given | | | | 3 | | | | | 6 | | | +----+---+ + + | | 0 | An Start | | | | 9 | Data | | | | 3 | | | | | 6 | | | +----+---+ + + | | 0 | Pre-Procedu | | | | 9 | ral Timeout | | | | 3 | Completed | | | | 6 | | | +----+---+ + + | | 0 | Block Start | | | | 9 | | | | | 3 | | | | | 7 | | | +----+---+ + + | | 0 | AN Block | | | | 9 | End | | | | 4 | | | | | 3 | | | +----+---+ + + | | 0 | An Start | Reassessment prior to anesthesia induction/procedure. | | | 9 | | | | | 4 | | | | | 3 | | | +----+---+ + + | | 0 | Preoxygenat | | | | 9 | ed | | | | 4 | | | | | 9 | | | +----+---+ + + | | 0 | An | | | | 9 | Induction | | | | 5 | | | | | 1 | | | +----+---+ + + | | 0 | An | | | | 9 | Intubation | | | | 5 | | | | | 3 | | | +----+---+ + + | | 1 | [place] | | | | 0 | 43-degrees | | | | 1 | | | | | 7 | | | +----+---+ + + | | 1 | An Tourn | | | | 0 | Inflated | | | | 1 | | | | | 7 | | | +----+---+ + + | | 1 | First | | | | 0 | Inc/Proc St | | | | 1 | | | | | 7 | | | +----+---+ + + | | 1 | [place] off | | | | 1 | | | | | 2 | | | | | 1 | | | +----+---+ + + | | 1 | AN No | TOF 4/4 with sustained tetanus. | | | 1 | Residual | | | | 2 | NMB | | | | 1 | | | +----+---+ + + | | 1 | Oropharynx | | | | 1 | Suctioned | | | | 2 | | | | | 1 | | | +----+---+ + + | | 1 | Breathing | | | | 1 | Spontaneous | | | | 2 | ly | | | | 1 | | | +----+---+ + + | | 1 | Moving | | | | 1 | Purposefull | | | | 2 | y | | | | 8 | | | +----+---+ + + | | 1 | Extubated | | | | 1 | Awake | | | | 2 | | | | | 8 | | | +----+---+ + + | | 1 | an stop | | | | 1 | data | | | | 2 | | | | | 8 | | | +----+---+ + + | | 1 | An Stop | Patient handed off to recovery nurse. | | | 3 | | | | | 4 | | | +----+---+ + + +------+ | Meds | +------+ + + + | Name | Total | + + + | midazolam | 2 mg | + + + | fentaNYL injection (2 mL) | 100 mcg | + + + | ropivacaine 0.5% | 15 mL | + + + | lidocaine 2% (PF) | 5 mL | + + + | lidocaine 2% | 100 mg | + + + | propofol (DIPRIVAN) injection | 350 mg | | (bolus) (20 mL) | | + + + | phenylephrine (Injection) | 900 mcg | + + + | dexamethasone | 10 mg | + + + | ceFAZolin in saline (ANCEF) IVPB | 2 g | | 2 g | | + + + | ondansetron (ZOFRAN) injection 4 | 4 mg | | mg | | + + + | lactated ringers (LR) infusion | 1,000 mL | + + + + + | Name | + + | N2O Flow Rate (L/Min) | + + | O2 Flow Rate (L/Min) | + + | Insp O2 | + + | Exp SEV | + + | Exp SHAMA | + + | Air Flow Rate (L/Min) | + + + + | No blood administrations on file. | + + +--------+ + + + | Type | Details | Placement | Removal | +--------+ + + + | Read | 12/05/14; 1133; Right:; knee; | 12/05/14 1133 by | 08/08/17 0841 by | | only - | ice pack placed on knee; | Marco Livingston RN | Mónica Cabrera, | | | 08/08/17; 0841 | | RN | | [facility] | | | | | on | | | | +--------+ + + + | Read | 11/15/15; 1005; Left; elbow; | 11/15/15 1005 by | 08/08/17 08 by | | only - | 08/08/17; 08 | Mansoor Ridley RN | Mónica Cabrera, | | | | | RN | | [facility] | | | | | on | | | | +--------+ + + + | Brace/ | 02/27/17; 1358; other (see | 02/27/17 1358 by | 08/08/17 0841 by | | Orthot | comments) (hinged knee brace); | Jyotsna Lane RN | Mónica Cabrera, | | ic/Ort | right hinged knee brace; | | RN | | hosis | 08/08/17; 0841 | | | +--------+ + + + | Periph | 05/14/17; 0847; Right; Distal; | 05/14/17 0847 by | 05/14/17 1400 by | | eral | Forearm; ucaj-cls-udpaid catheter | Betty Samaniego RN | Fidelina Galvan RN | | IV | system; 18 gauge; 1; rfa; | | | | | distraction, intradermal | | | | | injection; no longer indicated, | | | | | removed per policy/procedure, | | | | | catheter/device intact; healing | | | | | within expectations; 05/14/17; | | | | | 1400 | | | +--------+ + + + | Airway | Placement Date: 05/14/17; | 05/14/17 09 by Tor | 05/14/17 1128 by Tor | | | Placement Time: 952 (created via | Carmen Isaacs MD | Carmen Isaacs MD | | | procedure documentation); Mask | | | | | Ventilation: EZ; Airway Grade: | | | | | 2a; Successful Technique: Mac; | | | | | Laryngoscope Blade Size: 3; | | | | | Attempts: 1; Airway Type: | | | | | endotracheal; Size: 7.5; Airway | | | | | Tube Secured At: 23; Trauma: | | | | | none; Other Equipment: stylette; | | | | | Placement Check: exhaled CO2 | | | | | detection device; Removal Date: | | | | | 05/14/17; Removal Time: 112 | | | +--------+ + + + | Read | 05/14/17; 1100; Left; elbow; | 05/14/17 1100 by | 08/08/17 0841 by | | only - | other (see comments); surgery; | Rufino Hartman RN | Mónica Cabrera, | | | 08/08/17; 08 | | RN | | Inc[facility] | | | | | on | | | | +--------+ + + + documented in this encounter Social History + + + +--------+------+ | [...] + + documented as of this encounter OR Notes Anesthesia Postprocedure Evaluation - Vida Isaacs MD - 05/14/2017 11:35 AM PDTForm atting of this note might be different from the original. ANESTHESIA POSTANESTHESIA EVALUATION Cecilio Arias 47 y.o. male 1970 [id number] Procedure(s) Left Elbow Joint Exploration and Bilateral Shoulder Injection (Left Elbow) Cooperates? Yes Mental Status Performs simple tasks. Respiratory Satisfactory - Airway patent (self maintained). Cardiovascular Satisfactory - Blood pressure and heart rate acceptable Temperature Satisfactory Pain Satisfactory N/V Control Satisfactory Hydration Satisfactory - No signs of dehydration Complications None apparent Vitals: 05/14/17 0815 05/14/17 1131 BP: 119/54 130/61 Pulse: 74 88 Temp: 36.4 C (97.5 F) 36.6 C (97.9 F) Resp: 18 16 SpO2: 99% 93% Electronically signed by Vida Isaacs MD 05/14/2017 11:35 [facility] nesthesia Procedure Notes - Vida Isaacs MD - 05/14/2017 10: 37 AM PDTAssociated Order(s): ANE NERVE BLOCK CATHETER NOTEPerineural Procedure Note 05/14/2017 9:43 Nerve block: supraclavicular-brachial plexus Laterality: left Continuous block with catheter: No Provider requested procedure: Dr. Wood Indication: postoperative analgesia Preprocedure check: patient identified, procedure and rescue equipment checked, preevaluati on including airway assessment complete, risks/benefits discussed, consent obtained, timeout performed, reassessment prior to procedure and monitors applied Patient position: supine Preparation: chlorhexidine/isopropyl alcohol, 1% lidocaine infiltration Local anesthetic infiltration volume in ml: 2 mL Technique: ultrasound Radiology image stored in patient's chart: ultrasound Needle: echogenic, stimulating, insulated and short-bevel Needle size: 22 g Needle length: 4 in Medication administered through: needle Negative findings: no blood aspirated and no paresthesia Total volume of local anesthetic solution administered: 20 mL Attempts: 1 Ease of procedure: easy Comments: SpO2, NBP monitored during procedure and recorded in anesthesia record. Ultrasou nd used to identify the subclavian artery and supraclavicular brachial plexus. Under contin uous ultrasound guidance the Stimuplex needle was advanced to the supraclavicular brachial p ilene proximity with needle tip visualized throughout. 15ml 0.5% Ropivacaine with 5ml 2% l idocaine was injected in 5 ml increments around the nerves with intermittent negative aspira tion and no paresthesias. Ultrasound image placed in chart. Please see anesthesia record or flowsheet for vital sign documentation and see anesthesia r ecord or MAR for all medication documentation. Performing provider: VIDA ISAACS Electronically Signed by: Vida Isaacs MD ESig date/time: 05/14/2017 10:37 nesthesia Proced ure Notes - Vida Isaacs MD - 05/14/2017 10:20 AM PDTAssociated Order(s): ANE AIRWAY NOTEAnesthesia Airway Placement 05/14/2017 9:53 Preprocedure check: patient identified, oxygen, airway assessed, patient reassessment prior to induction, airway equipment checked and suction Rapid Sequence Induction: no Mask ventilation: easy Successful technique: Mac Laryngoscope blade size: 3 Airway grade: 2a (Partial view of glottis) Other equipment: stylette Attempts: 1 Airway type: endotracheal Size: 7.5 Cuffed: cuffed Route, reference point: right side of mouth Tube depth: 23 cm Tube secured with: adhesive tape Trauma: none Tube placement verification: carbon dioxide detection Performing provider: VIDA ISAACS Electronically Signed by: Vida Isaacs MD ES[facility] date/time: 04/23 10:21 nesthesia Prepro cedure Evaluation - Vida Isaacs MD - 05/13/2017 1:07 PM PDT ANESTHESIA PREANESTHESIA EVALUATION Cecilio Zimmerman [place] 47 y.o. male 1970 [id number] Procedure(s): Left Elbow Joint Exploration and Bilateral Shoulder Injection (Left Elbow) Medical history, anesthesia, medications, allergy, NPO status verified histories reviewed. Labs reviewed. Review of Systems / Med History Anesthesia History No anesthesia complications. (+) PONV(-) difficult intubation, malignant hyperthermia Cardiovascular (-) CAD, past MT, CHF, angina , Exercise tolerance >4 METS Pulmonary No acute pulmonary concerns. 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 (+) substance abuse (MJ) Renal Negative except where noted below. (-) end-stage renal disease Gastrointestinal/Hepatic (+) hyperlipidemia Endocrine (+) Diabetes (CBG 97 this am): type 2, NIDDM (+) obesity: Other Negative except where noted below. Cancer Negative except where noted below. Physical Exam Airway Neck limited by chronic pain MP II, TM >3 FB, Mouth opening >2 FB. Neck: limited ROM, extends <30 degrees. Jaw prot rusion normal. Dental Grossly normal except where noted below.; Grossly normal except where noted below. (+) missing teeth, dentures-lower and dentures-upper. CV Rhythm regular. Rate Normal. (-) murmur, carotid bruit, peripheral edema, JVD and weak pulses. Pulm Clear to auscultation bilaterally. (-) wheezing, rhonchi, decreased breath sounds, rales and stridor. Neuro Grossly normal. Anesthesia Plan ASA 3 (COPD) Type: General. Induction: Intravenous. Potential problems: None anticipated. Monitors: Standard ASA monitors. Consent statement:Anesthetic plan, alternatives, risks and benefits discussed with patient. Risks discussed included (but were not limited to): sore throat, nausea, perioperative CV e vents, infection, respiratory events, heart problems, bleeding, nerve damage. Consenting person understands and agrees to proceed. PARQ. PARQ for supraclavicular nerve block under ultrasound guidance for post-op pain control as requested by surgeon. Pt agrees to GA/LMA/PNB. . Electronically Signed by: Vida Isaacs MD [facility] date/time: 05/14/2017 9:00 documented in thi s encounter Plan of Treatment Not on filedocumented as of this encounter Procedures + +--------+ + + + | Procedure Name | Priori | Date/Time | Associated Diagnosis | Comments | | | ty | | | | + +--------+ + + + | ANE NERVE BLOCK | Routin | 05/14/2017 | | Results for this | | CATHETER NOTE | e | 10:37 AM | | procedure are in the | | | | PDT | | results section. | + +--------+ + + + | ANE AIRWAY NOTE | Routin | 05/14/2017 | | Results for this | | | e | 10:21 AM | | procedure are in the | | | | PDT | | results section. | + +--------+ + + + documented in this encounter Results Anesthesia Perineural Note (05/14/2017 10:37 AM PDT) + + + | Narrative | Performed At | + + + | Vida Isaacs MD 05/14/2017 10:37 Perineural Procedure | | | Note 05/14/2017 9:43 Nerve block: supraclavicular-brachial plexus | | | Laterality: left Continuous block with catheter: No Provider | | | requested procedure: Dr. Wood Indication: postoperative | | | analgesia Preprocedure check: patient identified, procedure and | | | rescue equipment checked, preevaluation including airway assessment | | | complete, risks/benefits discussed, consent obtained, timeout | | | performed, reassessment prior to procedure and monitors applied | | | Patient position: supine Preparation: chlorhexidine/isopropyl | | | alcohol, 1% lidocaine infiltration Local anesthetic infiltration | | | volume in ml: 2 mL Technique: ultrasound Radiology image stored in | | | patient's chart: ultrasound Needle: echogenic, stimulating, insulated | | | and short-bevel Needle size: 22 g Needle length: 4 in Medication | | | administered through: needle Negative findings: no blood aspirated | | | and no paresthesia Total volume of local anesthetic solution | | | administered: 20 mL Attempts: 1 Ease of procedure: easy | | | Comments: SpO2, NBP monitored during procedure and recorded in | | | anesthesia record. Ultrasound used to identify the subclavian | | | artery and supraclavicular brachial plexus. Under continuous | | | ultrasound guidance the Stimuplex needle was advanced to the | | | supraclavicular brachial plexus proximity with needle tip visualized | | | throughout. 15ml 0.5% Ropivacaine with 5ml 2% lidocaine was | | | injected in 5 ml increments around the nerves with intermittent | | | negative aspiration and no paresthesias. Ultrasound image placed in | | | chart. Please see anesthesia record or flowsheet for vital sign | | | documentation and see anesthesia record or MAR for all medication | | | documentation. Performing provider: VIDA ISAACS | | | Electronically Signed by: Vida Isaacs MD | | | ESig date/time: 05/14/2017 10:37 | | + + + + + | Procedure Note | + + | Vida Isaacs MD - 05/14/2017 10:37 AM PDT Perineural Procedure Note05/14/2017 | | 9:43Nerve block: supraclavicular-brachial plexusLaterality: leftContinuous block with | | catheter: NoProvider requested procedure: Dr. WoodIndication: postoperative | | analgesiaPreprocedure check: patient identified, procedure and rescue equipment checked, | | preevaluation including airway assessment complete, risks/benefits discussed, consent | | obtained, timeout performed, reassessment prior to procedure and monitors appliedPatient | | position: supinePreparation: chlorhexidine/isopropyl alcohol, 1% lidocaine | | infiltrationLocal anesthetic infiltration volume in ml: 2 mLTechnique: | | ultrasoundRadiology image stored in patient's chart: ultrasoundNeedle: echogenic, | | stimulating, insulated and short-bevelNeedle size: 22 gNeedle length: 4 inMedication | | administered through: needleNegative findings: no blood aspirated and no | | paresthesiaTotal volume of local anesthetic solution administered: 20 mLAttempts: 1Ease | | of procedure: easyComments: SpO2, NBP monitored during procedure and recorded in | | anesthesia record. Ultrasound used to identify the subclavian artery and | | supraclavicular brachial plexus. Under continuous ultrasound guidance the Stimuplex | | needle was advanced to the supraclavicular brachial plexus proximity with needle tip | | visualized throughout. 15ml 0.5% Ropivacaine with 5ml 2% lidocaine was injected in 5 | | ml increments around the nerves with intermittent negative aspiration and no | | paresthesias. Ultrasound image placed in chart.Please see anesthesia record or flowsheet | | for vital sign documentation and see anesthesia record or MAR for all medication | | documentation.Performing provider: VIDA ISAACSectronically Signed by: Vida Helms | | MD Jose Armando ESig date/time: 05/14/2017 10:37 | | | |Comments: SpO2, NBP monitored during procedure and recorded in anesthesia record. Ultrasou nd used to identify the subclavian artery and supraclavicular brachial plexus. Under contin uous ultrasound guidance the | |Stimuplex needle was advanced to the supraclavicular brachial plexus proximity with needle tip visualized throughout. 15ml 0.5% Ropivacaine with 5ml 2% lidocaine was injected in 5 m l increments around the nerves | |with intermittent negative aspiration and no paresthesias. Ultrasound image placed in chart . | | | |Please see anesthesia record or flowsheet for vital sign documentation and see anesthesia r ecord or MAR for all medication documentation. | | | | | |Performing provider: VIDA ISAACS | | | | | | | |Electronically Signed by: MD Curtis Soto date/time: 05/14/2017 10:37 | + + Anesthesia Airway Note (05/14/2017 10:21 AM PDT) + + + | Narrative | Performed At | + + + | Vida Isaacs MD 05/14/2017 10:21 Anesthesia Airway | | | Placement 05/14/2017 9:53 Preprocedure check: patient identified, | | | oxygen, airway assessed, patient reassessment prior to induction, | | | airway equipment checked and suction Rapid Sequence Induction: no | | | Mask ventilation: easy Successful technique: Mac Laryngoscope | | | blade size: 3 Airway grade: 2a (Partial view of glottis) Other | | | equipment: stylette Attempts: 1 Airway type: endotracheal Size: 7.5 | | | Cuffed: cuffed Route, reference point: right side of mouth Tube | | | depth: 23 cm Tube secured with: adhesive tape Trauma: none Tube | | | placement verification: carbon dioxide detection Performing provider: | | | VIDA ISAACS Electronically Signed by: Vida Isaacs | | | MD Fuentesg date/time: | | | 05/14/2017 10:21 | | + + + + + | Procedure Note | + + | Vida Isaacs MD - 05/14/2017 10:20 AM PDT Anesthesia Airway | | Placement05/14/2017 9:53Preprocedure check: patient identified, oxygen, airway assessed, | | patient reassessment prior to induction, airway equipment checked and suctionRapid | | Sequence Induction: noMask ventilation: easySuccessful technique: MacLaryngoscope blade | | size: 3 Airway grade: 2a (Partial view of glottis)Other equipment: styletteAttempts: | | 1Airway type: endotrachealSize: 7.5Cuffed: cuffedRoute, reference point: right side of | | mouthTube depth: 23 cmTube secured with: adhesive tapeTrauma: noneTube placement | | verification: carbon dioxide detectionPerforming provider: VIDA ISAACS | | HAAKONElectronically Signed by: MD Alfredo Sotog | | date/time: 05/14/2017 10:21 | |Attempts: 1 | |Airway type: endotracheal | |Size: 7.5 | |Cuffed: cuffed | |Route, reference point: right side of mouth | |Tube depth: 23 cm | |Tube secured with: adhesive tape | |Trauma: none | |Tube placement verification: carbon dioxide detection | |Performing provider: VIDA ISAACS | | | | | |Electronically Signed by: MD Curtis Soto date/time: 04/23 10:21 | | | + + documented in this encounter Visit Diagnoses Not on filedocumented in this encounter Administered Medications + +--------+ +------+------+------+ | Medication Order | MAR | Action | Dose | Rate | Site | | | Action | Date | | | | + +--------+ +------+------+------+ | ceFAZolin in saline (ANCEF) | Given | 05/14/20 | 2 g | | | | IVPB 2 g 2 g, Intravenous, | | 17 9:36 | | | | | Administer over 30 Minutes, Prior | | AM PDT | | | | | to Incision, Starting Wed | | | | | | | 05/14/17 at 0830, For 1 dose, Give | | | | | | | within one hour prior to | | | | | | | incision. Keep in refrigerator., | | | | | | | Pre-op, Indications: Surgical | | | | | | | Prophylaxis | | | | | | + +--------+ +------+------+------+ +---+---+ | | | +---+---+ + +-------+ +-------+---+---+ | dexamethasone (DECADRON) 10 | Given | 05/14/20 | 10 mg | | | | mg/mL injection Intravenous, | | 17 10:00 | | | | | PRN, Starting Fri05/14/17 at | | AM PDT | | | | | 1000, Anesthesia Intra-op | | | | | | + +-------+ +-------+---+---+ +---+---+ | | | +---+---+ + +-------+ +--------+---+---+ | fentaNYL (PF) injection PRN, | Given | 05/14/20 | 50 mcg | | | | Pain, Starting Fri05/14/17 at | | 17 9:51 | | | | | 0938, Anesthesia Intra-op | | AM PDT | | | | + +-------+ +--------+---+---+ +-------+ +--------+---+---+ | Given | 05/14/20 | 50 mcg | | | | | 17 9:38 | | | | | | AM PDT | | | | +-------+ +--------+---+---+ +---+---+ | | | +---+---+ + +---------+ +---+---+---+ | lactated ringers (LR) infusion | New Bag | 05/14/20 | | | | | at 10-100 mL/hr, Intravenous, | | 17 11:19 | | | | | CONTINUOUS, Starting 05/14/17 | | AM PDT | | | | | at 0900, TKO. Use this instead of | | | | | | | NS unless dialysis patient., | | | | | | | Pre-op | | | | | | + +---------+ +---+---+---+ +---------+ +--------+-------+---+ | New Bag | 05/14/20 | 1,000 | 100 | | | | 17 8:48 | mLs | mL/hr | | | | AM PDT | | | | +---------+ +--------+-------+---+ +---+---+ | | | +---+---+ + +-------+ +-------+---+---+ | lidocaine (PF) 2% injection | Given | 05/14/20 | 5 mLs | | | | PRN, Starting Fri05/14/17 at | | 17 9:43 | | | | | 0943, Anesthesia Intra-op | | AM PDT | | | | + +-------+ +-------+---+---+ +---+---+ | | | +---+---+ + +-------+ +--------+---+---+ | lidocaine (PF) 2% injection | Given | 05/14/20 | 100 mg | | | | Intravenous, PRN, Starting Wed | | 17 9:51 | | | | | 05/14/17 at 0951, Anesthesia | | AM PDT | | | | | Intra-op | | | | | | + +-------+ +--------+---+---+ +---+---+ | | | +---+---+ + +-------+ +------+---+---+ | midazolam (VERSED) 1 mg/mL | Given | 05/14/20 | 2 mg | | | | injection Intravenous, PRN, | | 17 9:38 | | | | | Anxiety, Starting Fri05/14/17 at | | AM PDT | | | | | 0938, Anesthesia Intra-op | | | | | | + +-------+ +------+---+---+ +---+---+ | | | +---+---+ + +-------+ +------+---+---+ | ondansetron (ZOFRAN) injection | Given | 05/14/20 | 4 mg | | | | 4 mg 4 mg, Intravenous, ONCE | | 17 10:00 | | | | | PRN, Nausea, Starting Fri05/14/17 | | AM PDT | | | | | at 0830, For 1 dose, Pre-op | | | | | | + +-------+ +------+---+---+ +---+---+ | | | +---+---+ + +-------+ +---------+---+---+ | phenylephrine (SKYE-SYNEPHRINE) | Given | 05/14/20 | 100 mcg | | | | 100 mcg/mL injection | | 17 11:16 | | | | | Intravenous, PRN, Starting Fri | | AM PDT | | | | | 05/14/17 at 0956, Anesthesia | | | | | | | Intra-op | | | | | | + +-------+ +---------+---+---+ +-------+ +---------+---+---+ | Given | 05/14/20 | 200 mcg | | | | | 17 11:11 | | | | | | AM PDT | | | | +-------+ +---------+---+---+ | Given | 05/14/20 | 200 mcg | | | | | 17 10:36 | | | | | | AM PDT | | | | +-------+ +---------+---+---+ +---+---+ | | | +---+---+ + +-------+ +--------+---+---+ | propofol (DIPRIVAN) injection | Given | 05/14/20 | 100 mg | | | | PRN, Starting 05/14/17 at | | 17 10:48 | | | | | [id number], Anesthesia Intra-op | | AM PDT | | | | + +-------+ +--------+---+---+ +-------+ +-------+---+---+ | Given | 05/14/20 | 50 mg | | | | | 17 10:03 | | | | | | AM PDT | | | | +-------+ +-------+---+---+ | Given | 05/14/20 | 50 mg | | | | | 17 9:53 | | | | | | AM PDT | | | | +-------+ +-------+---+---+ +---+---+ | | | +---+---+ + +-------+ +--------+---+---+ | ropivacaine (NAROPIN) 5 mg/mL | Given | 05/14/20 | 15 mLs | | | | (0.5%) injection PERINEURAL, | | 17 9:43 | | | | | PRN, Starting 05/14/17 at | | AM PDT | | | | | 0943, Anesthesia Intra-op | | | | | | + +-------+ +--------+---+---+ +---+---+ | | | +---+---+ documented in this encounter"
--- OUTSIDE RECORDS SUMMARY | ~2020-06-16 | XMS | Encounter Summary ---
Demographics + + + | Address | [address] | | | [place] [address] | + + + | Home Phone | | + + + | Preferred Language | Unknown | + + + | Marital Status | | + + + | Yarsani Affiliation | Unknown | + + + | Race | White | + + + | Ethnic Group | Not or | + + + Author + + + | Author | [facility] | | | and [place] | + + + | Organization | [facility] | | [...] [place], | | | | | [place] [address] | | + + + + + Care Team Providers + +------+ + | Care Band Maker Name | Role | Phone | + +------+ + PCP | Unavailable | + +------+ + Reason for Referral Evaluate & Treat (Routine) +--------+ + + + + + | Status | Reason | Specialty | Diagnoses / | Referred By | Referred To | | | | | Procedures | Contact | Contact | +--------+ + + + + + | Closed | Specialty | Physical | Diagnoses | [place], | Do Not Use | | | Services | Therapy / | | Marty Elise, | - [facility] | | | Required | Rehabilitatio | Osteoarthros | MD [address] | | | | n | is, | [address] | [place] | | | | | unspecified | [place], | [place], | | | | | whether | [place] [address] | [place] [address] | | | | | generalized | Phone: | Phone: | | | | | or | [phone] | [phone] | | | | | localized, | Fax: | Fax: | | | | | lower leg | [phone] | [phone] | | | | | S/P | | | | | | | orthopedic | | | | | | | surgery, | | | | | | | follow-up | | | | | | | exam | | | +--------+ + + + + + Encounter Details +--------+ + + + + | Date | Type | Department | Care Team | Description | +--------+ + + + + | 01/31/ | Orders Only | [facility] | Marty Wood | Osteoarthrosis, | | 2014 | | ORTHOPEDIC SURGERY | MD [address] | unspecified whether | | | | [address] | [place] | generalized or | | | | [place] | [address] | localized, lower leg | | | | [address] | | (Primary Dx); S/P | | | | [phone] | | orthopedic surgery, | | | | | | follow-up exam | +--------+ + + + + Social [...] of this encounter Plan of Treatment + + +--------+ + + | Name | Type | Priori | Associated Diagnoses | Order Schedule | | | | ty | | | + + +--------+ + + | * [facility] | Outpatient | Routin | Osteoarthrosis, | Ordered: 01/31/2015 | | Therapy - AMB | Referral | e | unspecified whether | | | Referral | | | generalized or | | | | | | localized, lower leg | | | | | | S/P orthopedic | | | | | | surgery, follow-up | | | | | | exam | | + + +--------+ + + documented as of this encounter Visit Diagnoses + + | Diagnosis | + + | Osteoarthrosis, unspecified whether generalized or localized, lower leg - Primary | + + | S/P orthopedic surgery, follow-up exam Follow-up examination, following other surgery | + + documented in this encounter"
--- OUTSIDE RECORDS SUMMARY | ~2020-06-16 | XMS | Encounter Summary ---
Demographics + + + | Address | [address] | | | [place] [address] | + + + | Home Phone | | + + + | Preferred Language | Unknown | + + + | Marital Status | | + + + | Yazidi Affiliation | Unknown | + + + | Race | White | + + + | Ethnic Group | Not or | + + + Author + + + | Author | [facility] | | | and [place] | + + + | Organization | [facility] | | [...] [place], | | | | | [place] [address] | | + + + + + Care Team Providers + +------+ + | Care Senior Risk Manager Name | Role | Phone | + +------+ + | Lakeisha Sanabria MD | PCP | | + +------+ + Reason for Referral Evaluate & Treat (Urgent) +--------+ + + + + + | Status | Reason | Specialty | Diagnoses / | Referred By | Referred To | | | | | Procedures | Contact | Contact | +--------+ + + + + + | Closed | Specialty | Ophthalmology | Diagnoses | Espino, | Kimberley, | | | Services | | Vision loss | Stan | Ruslan | | | Required | | of right | Edward | MD Denis | | | | | eye | MD Giuliano | [address] | | | | | Cataract, | [address] | [place] | | | | | unspecified | [place] | [place] | | | | | cataract | [place], [place] | [address] | | | | | type, | [address] | Phone: | | | | | unspecified | Phone: | [phone] | | | | | laterality | [phone] | Fax: | | | | | | Fax: | [phone] | | | | | | [phone] | | +--------+ + + + + + Reason for Visit + + + | Reason | Comments | + + + | Eye Problem | | + + + Encounter Details +--------+ + + + + | Date | Type | Department | Care Team | Description | +--------+ + + + + | 11/19/ | Emergency | [facility] | Stan Espino | Vision loss of right | | 2019 | | [facility] | Cody Nobles MD | eye (Primary Dx); | | | | CENTER [address] | [address] | Cataract, | | | | [place], [place] | [place], [place] | unspecified cataract | | | | [address] | [address] | type, unspecified | | | | [phone] | | laterality | +--------+ + + + + Social [...] + + + | Blood Pressure | 128/74 | 11/19/2019 10:00 AM | | | | | PST | | + + + + + | Pulse | 89 | 11/19/2019 10:00 AM | | | | | PST | | + + + + + | Temperature | 36.6 C (97.8 F) | 11/19/2019 10:00 AM | | | | | PST | | + + + + + | Respiratory Rate | 18 | 11/19/2019 10:00 AM | | | | | PST | | + + + + + | Oxygen Saturation | 100% | 11/19/2019 10:00 AM | | | | | PST | | + + + + + | Inhaled Oxygen | - | - | | | Concentration | | | | + + + + + | Weight | 113.4 kg (250 lb) | 11/19/2019 9:53 AM | | | | | PST | | + + + + + | Height | 182.9 cm (6') | 11/19/2019 9:53 AM | | | | | PST | | + + + + + | Body Mass Index | 33.91 | 11/19/2019 9:53 AM | | | | | PST [...] documented as of this encounter Discharge Instructions Stan Tadeo MD - 11/19/2019Apply antibiotic ointment. Follow-up in opthomology clinic early next week documented in this encounter Medications at Time of [...] + + + +---------+ + + | gentamicin | Apply a 1/2 inch | 3.5 g | 0 | 11/19/19 | | | (GENTAK) 0.3% | ribbon to the lower | | | 20 | 0 | | ophthalmic ointment | eyelid of the | | | | | | | affected eye(s) 2-3 | | | | | | | times a day, up to | | | | | | | every 3-4 hours | | | | | | | while awake | | | | | + + + +---------+ + + documented as of this encounter ED Notes Stan Espino MD - 11/19/2019 10:42 AM PSTFormatting of this note might be d ifferent from the original. [facility] Cecilio Arias EMERGENCY DEPARTMENT ENCOUNTER NOTE [address] [place] [address] PCP:Lakeisha Sanabria MD [phone] EMERGENCY DEPARTMENT ENCOUNTER CHIEF COMPLAINT Chief Complaint Patient presents with Eye Problem TRIAGE ED Triage Notes, ED Triage Notes Jose Brady RN 11/19/2019 09:58 States vision problem in right eye, states his vision is blurry and to him it looks like he is in a smoke filled room and this has been ongoing x 10 days. States he was seen in [facility] for this 8 days ago and was found to have high glucose of >800 at that time. CBG on arri jp 254 Original note by Jose Brady RN at 11/19/2019 09:56 Jose Brady RN 11/19/2019 09:56 States vision problem in right eye, states his vision is blurry and to him it looks like he is in a smoke filled room and this has been ongoing x 10 days. States he was seen in [facility] for this 8 days ago and was found to have high glucose of >800 at that time. Addendum to note by Jose Brady RN at 11/19/2019 09:58 HPI Cecilio Arias is a 49 y.o. male who presents with right eye blurred vision. He s tates that he cannot see out of the right eye very well. He registers less than than 20/200 in his right eye vision. He is here for further evaluation. He has type 2 diabetes. Bloo d sugar is high today he states that last week it was greater than 800. His symptoms have come on over the last 2 weeks. PAST MEDICAL AND SURGICAL HISTORY I did review the patient's past medical and surgical history. The patient has a past medica l history of Adverse effect of anesthesia, Asthma, Cellulitis (11/13/2018), Diabetes mellitu s ([facility]), Diabetes mellitus type II, ORAL Control (10/28/2011), Elevated cholesterol, Elevated hemoglobin A1c (11/07/2018), Emphysema of lung ([facility]), GERD (gastroesophageal reflux disease), Immune deficiency disorder ([facility]), Osteoporosis, PONV (postoperative nausea and vomiting), S eizure ([facility]), Testosterone deficiency, Type 2 diabetes mellitus ([facility]), and Vitamin D deficie [facility]. The patient has a past surgical history that includes Knee arthroscopy (Right, 5); spinal cord injury; Elbow surgery (Left, 11/15/2015); Mandible surgery; Carpal tunnel rel ease (Left, 05/14/2017); Knee arthroscopy (Right, 02/11/2018); Incision and Drainage (Right, ); Carpal tunnel release (05/14/2017); other surgical history (Left, 11/15/2015); ot her surgical history (Right, 11/07/2018); Knee arthroscopy (Right, 12/05/2014); other surgic al history (12/05/2014); and Mandible surgery. Family and Social History I did review the patient's family and social history. The patient's family history is not o n file. The patient reports that he has been smoking cigarettes and e-cigarettes. He has a 1 0.00 pack-year smoking history. He has never used smokeless tobacco. He reports current drug use. Frequency: 7.00 times per week. Drugs: Methamphetamines and Marijuana. He reports that he does not drink alcohol. 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 Twelve point review of system comp leted my me. PHYSICAL EXAM VITAL SIGNS: Temp: 36.6 C (97.8 F) Pulse: 89 Resp: 18 SpO2: 100 % BP: 128/74 Constitutional: Well developed, Well nourished, Non-toxic appearance. HENT: Normocephalic, Atraumatic, Bilateral external ears normal, Oropharynx moist, No oral exudates, Nose normal. Neck- Normal range of motion, No tenderness, Supple, No stridor. Eyes: PERRL, EOMI, Conjunctiva normal, No discharge. No sign of corneal abrasion. Cornea appears to be clear. There does appear to be some cataract formation of the lens with diff iculty visualizing the posterior elements of the eye. Respiratory: Normal breath sounds, No respiratory distress, No wheezing, No chest tenderne ss. Cardiovascular: Normal heart rate, Normal rhythm, No murmurs, No rubs, No gallops. GI: Bowel sounds normal, Soft, No tenderness, No masses, No pulsatile masses. Musculoskeletal: Intact distal pulses, No edema, No tenderness, No cyanosis, No clubbing. Good range of motion in all major joints. No tenderness to palpation or major deformities no naina. Neurologic: Alert & oriented x 3, Normal motor function, Normal sensory function, No focal deficits noted, no facial assymetry noted. Equal lockstitch lining setter in all extremities LAB Labs Reviewed POC GLUCOSE - Abnormal; Notable for the following components: Result Value Glucose, POC 254 (*) All other components within normal limits ED COURSE & MEDICAL DECISION MAKING Pertinent Labs & Imaging studies reviewed. (See chart for details) Nursing notes reviewed. No acuity checked, bilateral eye pressures checked registering at R 14 and L 16 mmhg Patient with no ongoing eye pain. Patient discussed with Dr. Muniz he is encouraged to call Dr. Lares make an official appo intment and have evaluation of his eyes thoroughly. He does not appear to have a neurologic al condition or under stroke he is encouraged to return if symptoms worsen. Follow-up Information Ruslan Muniz MD. Call in 1 week. Specialty: Ophthalmology Contact information: [place] [address] New Prescriptions GENTAMICIN (GENTAK) 0.3% OPHTHALMIC OINTMENT Apply a 1/2 inch ribbon to the lower eyel id of the affected eye(s) 2-3 times a day, up to every 3-4 hours while awake Discharge Instructions Apply antibiotic ointment. Follow-up in opthomology clinic early next week FINAL IMPRESSION 1. Vision loss of right eye Acute 2. Cataract, unspecified cataract type, unspecified laterality Acute Portions of this chart may have been created with Mobile [employer] voice recognition software. Occasi onal wrong-word or sound-alike substitutions may have occurred due to the inherent stevens itations of voice recognition software. Please read the chart carefully and recognize, using context, where these substitutions have occurred Stan Espino MD 11/19/19 1046 Camila Bishop RN - 11/19/2019 9:53 AM PSTStates vision problem in right eye, states his vision i s blurry and to him it looks like he is in a smoke filled room and this has been ongoing x 1 0 days. States he was seen in [place] for this 8 days ago and was found to have high gluco se of >800 at that time. CBG on arrival 254Electronically signed by Jose Brady RN at 0 11/19/2019 9:58 AM PSTdocumented in this encounter Miscellaneous Notes Plan of Rosina - Kenzie Yip 11/19/2019 2:49 PM PSTDischarge Planning: Referral to ophthalmology faxed to Dr Muniz's office. Office is closed for the weekend. Call placed to patients who is insisting a fax be se nt to her husbands insurance as well. Explained that our referrals dept will contact his ins urance when they receive the referral. She reports understanding. She will follow up with Dr muniz's office next week. Electronically signed by: Kenzei Yip 11/19/2019 2:51 PM documented in this encou nter Plan of Treatment + +------+--------+ + + | Name | Type | Priori | Associated Diagnoses | Date/Time | | | | ty | | | + +------+--------+ + + | ED INFORMATION | SHITAL | Routin | | 11/19/2019 9:47 AM | | EXCHANGE | | e | | PST | + +------+--------+ + + + + +--------+ + + | Name | Type | Priori | Associated Diagnoses | Order Schedule | | | | ty | | | + + +--------+ + + | Ophthalmology | Outpatient | STAT | Vision loss of | Ordered: 11/19/2019 | | | Referral | | right eye Cataract, | | | | | | unspecified | | | | | | cataract type, | | | | | | unspecified | | | | | | laterality | | + + +--------+ + + documented as of this encounter Procedures + +--------+ + + + | Procedure Name | Priori | Date/Time | Associated Diagnosis | Comments | | | ty | | | | + +--------+ + + + | POC GLUCOSE | Routin | 11/19/2019 | | Results for this | | | e | 9:57 AM | | procedure are in the | | | | PST | | results section. | + +--------+ + + + | ED INFORMATION | Routin | 11/19/2019 | | | | EXCHANGE | e | 9:47 AM | | | | | | PST | | | + +--------+ + + + +---+--------+ | | | | | Proced | | | ure | | | Note - | | | Kiko, | | | Lab In | | | | | | Hlseve | | | n - | | | 11/19/ | | | 2019 | | | 9:48 | | | AM PST | | [...] ON?/ | | | | | | 0 | | | 09:46? | | | AVLONI | | | TIS, | | | DENIS | | | OPHER | | | S?MRN: | | | | | | [id number] | | | [id number] | | | riteri | | | a Met | | | | | | PDMPSe | | | curity | | | and | | | [...] MED | | | | | | 2019-1 | | | 2-17 | | | BUPREN | | | ORPHIN | | | E 8 MG | | | | | | TABLET | | | SL 14 | | | | | | KIZZYA | | | NN | | | KAYLEE | | | 3 480 | | | | | | 2019- | | | 2-10 | | | [...] | | 3 0 | | | 2019- | | | 2-01 | | | BUPREN | | | ORPHIN | | | E 8 MG | | | | | | TABLET | | | SL 14 | | | | | | KIZZYA | | | NN | | | KAYLEE | | | 3 480 | | | | | | 2019- | | | 1-23 | | | BUPREN | | | ORPHIN | | | E 8 MG | | | | | | TABLET | | | SL 14 | | | | | | KIZZYA | | | NN | | | KAYLEE | | | 3 480 | | | | | | 2019- | | | 1-19 | | | [...] | | of the | | | 26 | | | most-r | | | ecent | | | prescr | | | iption | | | s Rx | | | Summar | | | yMetri | | | c | | | Count | | | CS | | | II-V | | | Rx 18 | | | CS-II | | | Rx 0 | | | Quanti | | | ty | | | Dispen | | | sed | | | 261 | | | Unique | | | | | | Prescr | | | ibers | | | 4 | | | Unique | | | [...] | | 5 0 | | | [facility] [place] [facility] | [facility] | | | [facility] | | | al 3 0 | | | Total | | [...] | | | Feb | | | 28, | | | 2020 | | | [facility] | | | ence | | | [facility] | | | [facility] | | [place] | | | [place] | | | Emerge | | | ncy | | | | | | Vision | | | Loss | | | R eye | | | Feb | | | 21, | | | 2020 | | | [facility] [place] | | | [facility] | | | [place] | | | [place] | | | Emerge | | | ncy | | | 1 | | | Type 2 | | | | | | diabet | | | es | | | mellit | | | us | | | with | | | hyperg | | | lycemi | | | a | | | Follic | | | ular | | | disord | | | er, | | | unspec | | | ified | | | | | | Bronch | | | itis, | | | not | | | specif | | | ied as | | | acute | | | or | | | chroni | | | c | | | Nicoti | | | ne | | | depend | | | ence, | | | unspec | | | ified, | | | | | | uncomp | | | licate | | | d | | | Anxiet | | | y | | | disord | | | er, | | | unspec | | | ified | | | | | | Allerg | | | y | | | status | | | to | | | oth | | | drug/m | | | eds/bi | | | ol | | | subst | | | status | | | | | | Allerg | | | y | | | status | | | to | | | narcot | | | ic | | | agent | | | status | | | | | | Allerg | | | y | | | status | | | to | | | sulfon | | | amides | | | | | | status | | | | | | Other | | | long | | | term | | | (curre | | | nt) | | | drug | | | therap | | | y | | | Long | | | term | | | (curre | | | nt) | | | use of | | | | | | insuli | | | n Feb | | | 11, | | | 2020 | | | [facility] | [facility] en[facility] | | | [facility] | | [facility] | | [place] | | | [place] | | | Emerge | | | ncy | | | Chest | | | Pain | | | | | | Other | | | chest | | | pain | | | | | | Acute | | | kidney | | | | | | failur | | | e, | | | unspec | | | ified | | | 1 | | | Type 2 | | | | | | diabet | | | es | | | mellit | | | us | | | with | | | hyperg | | | lycemi | | | a | | | Elevat | | | ed | | | white | | | blood | | | cell | | | count, | | | | | | unspec [...] | | | [facility] | | | [place] | | | y H. | | [...] | | | St[facility] | | | [place] | | | y H. | | [...] | | | s | | | Recent | | | [...] | | | d | | | Care | | | [...] | | | 50 | | | (509) | | | 525-02 | | | 47 | | | Curren | | | [...] | | | otify/ | | | [id number] | | | [id number] | | | [id number] | | | -[id number] | | | [id number] | | | [id number] | | | | | | PLEASE [...] [email or web address] | | | m | +---+--------+ documented in this encounter Results POC Glucose (11/19/2019 9:57 AM PST) + +---------+ + + + | Component | Value | Ref Range | Performed | Pathologist | | | | | At | Signature | + +---------+ + + + | Glucose, | 254 (H) | 70 - 109 mg/dL | [facility] | | | POC | | | [...] + + | [facility] [facility] | [address] | [place], [place] | [phone] | | [facility] | | [address] | | | - LABORATORY | | | | + + + + + documented in this encounter Visit Diagnoses + + | Diagnosis | + + | Vision loss of right eye - Primary Unqualified visual loss, one eye | + + | Cataract, unspecified cataract type, unspecified laterality | + + documented in this encounter
--- OUTSIDE RECORDS SUMMARY | ~2020-06-16 | XMS | Encounter Summary ---
Demographics + + + | Address | [address] | | | [place] [address] | + + + | Home Phone | | + + + | Preferred Language | Unknown | + + + | Marital Status | | + + + | Confucianist Affiliation | Unknown | + + + [...] [place], | | | | | [place] [address] | | + + + + + Care Team Providers + +------+ + | Care Clinical Molecular Geneticist Name | Role | Phone | + +------+ + | Dimitri Fischer MD | PCP | | + +------+ + Encounter Details +--------+ + + + + | Date | Type | Department | Care Team | Description | +--------+ + + + + | 01/02/ | Episode | [facility] | Denia Lopez, | | | 2017 | Changes | ORTHOPEDIC SURGERY | [employer] | | | | | [address] | | | | | | [place] | | | | | | [address] | | | | | | [phone] | | | +--------+ + + + [...]
--- OUTSIDE RECORDS SUMMARY | ~2020-06-16 | XMS | Encounter Summary ---
Demographics + + + | Address | [address] | | | [place] [address] | + + + | Home Phone | | + + + | Preferred Language | Unknown | + + + | Marital Status | | + + + | Bahai Affiliation | Unknown | + + + | Race | White | + + + | Ethnic Group | Not or | + + + Author + + + | Author | [facility] | | | and [place] | + + + | Organization | [facility] | | | and [...] [place], | | | | | [place] [address] | | + + + + + Care Team Providers + +------+ + | Care Management Professionals Name | Role | Phone | + +------+ + PCP | Unavailable | + +------+ + Reason for Visit + + + | Reason | Comments | + + + | Follow-up | left shoulder pain and elbow pain onset | + + + Encounter Details +--------+---------+ + + + | Date | Type | Department | Care Team | Description | +--------+---------+ + + + | 12/18/ | Office | [facility] | Amadeo Saab | Patient left without | | 2016 | Visit | ORTHOPEDIC SURGERY | [address] | being seen (Primary | | | | [address] | [address] | Dx) | | | | [place] | [place] [address] | | | | | [address] | [phone] | | | | | [phone] | | | +--------+---------+ + + + [...] + documented as of this encounter Progress Denia Robles, Binder Cutter - 12/18/2016 11:52 AM PDTPatient left without being seen, patient states that he would rather see Dr. Wood. documented in this encounter Plan of Treatment Not on filedocumented as of this encounter Visit Diagnoses + + | Diagnosis | + + | Patient left without being seen - Primary Surgical or other procedure not carried out | | because of patient's decision | + + documented in this encounter"
--- OUTSIDE RECORDS SUMMARY | ~2020-06-16 | XMS | Encounter Summary ---
Demographics + + + | Address | [address] | | | [place] [address] | + + + | Home Phone | | + + + | Preferred Language | Unknown | + + + | Marital Status | | + + + | Church Affiliation | Unknown | + + + | Race | White | + + + | Ethnic Group | Not or | + + + Author + + + | Author | [facility] | | | and [place] | + + + | Organization | [facility] | | | [...] [place], | | | | | [place] [address] | | + + + + + Care Team Providers + +------+ + | Care Asian Art Curator Name | Role | Phone | + +------+ + PCP | Unavailable | + +------+ + Reason for Visit + + + | Reason | Comments | + + + | Elbow Pain | left elbow pain doi 03/07/15 | + + + Evaluate & Treat (Routine) +--------+--------+ + + + + | Status | Reason | Specialty | Diagnoses / | Referred By | Referred To | | | | | Procedures | Contact | Contact | +--------+--------+ + + + + | Closed | | Orthopedic | Diagnoses | Keven, | Israle, | | | | Surgery | Left elbow | Cliff | Marty Elise MD | | | | | pain | MD Rolando | [address] | | | | | [address] | | | | | | [place] | [place] | | | | | | [place], | [address] Phone: | | | | | | [place] [address] | [phone] | | | | | | Phone: | Fax: | | | | | | [phone] | [phone] | | | | | | Fax: | | | | | | | [phone] | | +--------+--------+ + + + + Encounter Details +--------+---------+ + + + | Date | Type | Department | Care Team | Description | +--------+---------+ + + + | 08/08/ | Office | [facility] | Marty Perez | Tennis elbow, left | | 2015 | Visit | ORTHOPEDIC SURGERY | MD Gosia [address] | (Primary Dx); | | | | [address] | [place] | Post-traumatic | | | | [place] | [address] | osteoarthritis of | | | | [address] | | left elbow; | | | | [phone] | | Chondromalacia | | | | | | patellae of left | | | | | | knee | +--------+---------+ + + + Social History [...] + + + + | Temperature | 35.8 C (96.5 F) | 08/08/2015 3:04 PM | | | | | PST [...] + + + + | Weight | 117.9 kg (260 lb) | 08/08/2015 3:04 PM | | | | | PST | | + + + + + | Height | 182.9 cm (6') | 08/08/2015 3:04 PM | | | | | PST | | + + + + + | Body Mass Index | 35.26 | 08/08/2015 3:04 PM | | | | | PST | | + + + + + documented in this encounter Progress Notes Marty Perez MD - 08/08/2015 6:13 PM PSTSee soap note [id number].Electronically sign ed by Marty Perez MD at 08/08/2015 6:13 PM PSTMarty Perez MD - 6:12 PM PST [facility] [address] [place] [id number] OFFICE NOTE MARTY PEREZ MD Patient: LOY GARCIA Admitting: MR #: [id number] LOC: PT TYPE: Adm Date: 08/08/2015 : 1970 Mr. Garcia returns to see us today for a complaint of left elbow pain and left knee kevin n. He states that his fall at [employer] in February of this year on 02/25 has left him with s ignificant left elbow pain as well as left knee pain. EXAMINATION: Exam of the patient's left elbow reveals that he has distinct tenderness in the region of the lateral epicondyle, consistent with lateral epicondylitis. He also has f airly significant pain in the elbow joint and actually has about a 10-degree flexion contra cture with significant pain with attempted passive extension past that point. Brief exam of his left knee reveals that he has some painful crepitus associated with knee extension. The knee is stable, but he notes increased pain with activity. X-RAYS: X-rays are reviewed of the patient's left elbow. These show definite degenerati ve change with prominence and hypertrophy of the coronoid process as well as the tip of the olecranon process, both consistent with degenerative joint disease. ASSESSMENT: 1. Left elbow pain due to injury, aggravated underlying lateral epicondylitis and degener ative joint disease of the left elbow. 2. Left knee pain due to injury aggravation of sara dromalacia patella. ADVICE: Today we have initially offered Loy a lateral epicondylar injection to tr eat his tennis elbow. He would like to proceed with this option, and therefore today we pr oceeded to inject the region of his left elbow lateral epicondyle under local anesthesia an d under sterile conditions with a combination of 6 mg of betamethasone, 1.5 mL of 1-percen t lidocaine and 0.5 mL of 0.5-percent Naropin, which he tolerated well. Hopefully, he will benefit from the injection. We have encouraged him to work on gentle passive range of mot ion of the left elbow. We will plan to see him back in 2-4 weeks if he has persisting sym ptoms. Further treatment considerations include left elbow joint injection, consideration of a humeral ulnar plasty, which would include removal of the coronoid and olecranon proces s spurs. Further consideration of his left knee problems include knee joint injection vers us possible arthroscopy. MARTY PEREZ MD Dictated by MARTY PEREZ MD 08/08/2015 18:12:05 Transcribed on 08/09/2015 08:13:06 by [facility] job# [id number] Confirmation #: [id number] cc: JEANIE BISHOP MD documented in this encounter Plan of Treatment Not on filedocumented as of this encounter Visit Diagnoses + + | Diagnosis | + + | Tennis elbow, left - Primary | + + | Post-traumatic osteoarthritis of left elbow Secondary localized osteoarthrosis, upper | | arm | + + | Chondromalacia patellae of left knee Chondromalacia | + + documented in this encounter"
--- OUTSIDE RECORDS SUMMARY | ~2020-06-16 | XMS | Encounter Summary ---
Demographics + + + | Address | [address] | | | [place] [address] | + + + | Home Phone | | + + + | Preferred Language | Unknown | + + + | Marital Status | | + + + | Buddhist Affiliation | Unknown | + + + | Race | White | + + + | Ethnic Group | Not or | + + + Author + + + | Author | [facility] | | | and [place] | + + + | Organization | [facility] | | | [...] [place], | | | | | [place] [address] | | + + + + + Care Team Providers + +------+ + | Care Application Software Engineer Name | Role | Phone | + +------+ + PCP | Unavailable | + +------+ + Encounter Details +--------+ + + + + | Date | Type | Department | Care Team | Description | +--------+ + + + + | 06/30/ | Documentati | [facility] | Carolyn, | | | 2015 | on | [facility] | Amadeo, PT [address] | | | | | [address] [place] | [address] [place] | | | | | [place] [address] | [place] [address] | | | | | [phone] | [phone] | | | | | | | [...] documented as of this encounter Progress Notes Amadeo Leon, PT - 06/30/2015 4:22 PM PDTFormatting of this note might be differen t from the original. [facility] [address] [place] [address] Physical Therapy Discharge Note This discharge is associated with the evaluation completed on 02/03/15. Date: 06/30/2015 Patient Information Patient Name: Cecilio Arias Date of : 1970 Age: 45 y.o. Encounter Diagnoses Code Name Primary? M25.561 Knee pain, right Yes Date of Onset: 12/05/14 Referring Provider: Total Number of Visits Completed: 1 Total Cancellations: 1 Total No Shows: 0 Patient has failed to return to therapy for further treatment. Goal status is unknown at th is time. This note serves as discharge from therapy. Patient cancelled therapy secondary to a change in medical status. Pt called to cancel his first appointment due to falling on his knee and did not schedule any further appointments t herafter. At this time we find it necessary to discharge this patient from therapy services. The last progress note or the patients initial evaluation will serve as objective status fo r purposes of discharge. Electronically signed by: Amadeo Leon PT, 06/30/2015 16:23 Patient Name: Cecilio Arias/: 1970/ documented in th is encounter Plan of Treatment Not on filedocumented as of this encounter Visit Diagnoses + + | Diagnosis | + + | Knee pain, right - Primary Pain in joint, lower leg | + + documented in this encounter"
--- OUTSIDE RECORDS SUMMARY | ~2020-06-16 | XMS | Encounter Summary ---
Demographics + + + | Address | [address] | | | [place] [address] | + + + | Home Phone | | + + + | Preferred Language | Unknown | + + + | Marital Status | | + + + | Evangelical Affiliation | Unknown | + + + | Race | White | + + + | Ethnic Group | Not or | + + + Author + + + | Author | [facility] | | | and [place] | + + + | Organization | [facility] | | | [...] [place], | | | | | [place] [address] | | + + + + + Care Team Providers + +------+ + | Care Client Experience Consultant Name | Role | Phone | + +------+ + | Dimitri Fischer MD | PCP | | + +------+ + Reason for Visit +--------+--------+ + | Reason | Onset | Comments | | | Date | | +--------+--------+ + | Other | 04/10/ | Clearance/referral for orthopedic surgery and diabetic | | | 2016 | medication request | +--------+--------+ + Encounter Details +--------+ + + + + | Date | Type | Department | Care Team | Description | +--------+ + + + + | 04/10/ | Telephone | [facility] [place] | Surendra Vaughn | Other | | 2017 | | NEPHROLOGY [address] | M, DO [address] | (Clearance/referral | | | | [address] | [address] [place] | for orthopedic | | | | [place], [place] | [place] [address] | surgery and diabetic | | | | [address] | [phone] | medication request) | | | | [phone] | | | +--------+ + + + [...] this encounter Miscellaneous Notes Telephone Encounter - Yuliana Coronado RN - 04/11/2017 1:[address] Vaughn, santiago thomas needs to contact PCP for medication order. Left message notifying of this.Electronically s igned by Yuliana Coronado RN at 04/11/2017 1:47 PM PDTTelephone Encounter - Ida Brand - 04/10/2017 10:27 AM PDTPatient's , Tasha is calling to see if Dr. Vaughn has sent a letter to Dr. Wood clearing him for surgery. Tasha is also asking if Dr. Vaughn will send a prescription for Jardiance 10 mg tablets (30 day supply with 2 refills) to [facility]. She stated that [facility]'s insurance has approved this medication and a prior auth has already been approved. The medication Farxga was not approved by insurance. Tasha would like a call back at [phone]. documented in this encounter Plan of Treatment Not on filedocumented as of this encounter Visit Diagnoses Not on filedocumented in this encounter"
--- OUTSIDE RECORDS SUMMARY | ~2020-06-16 | XMS | Clinical Summary ---
Demographics + + + | Address | [address] | | | [place] [address] | + + + | Home Phone | | + + + | Preferred Language | Unknown | + + + | Marital Status | | + + + | Congregation Affiliation | Unknown | + + + | Race | White | + + + | Ethnic Group | Not or | + + + Author + + + | Author | [facility] | | | and [place] | + + + | Organization | [facility] | | | [...] [place], | | | | | [place] [address] | | + + + + + Care Team Providers + +------+ + | Care Windows Server Support Technician Name | Role | Phone | + +------+ + | Russell Sanabria MD | PCP | | + +------+ + Allergies + + + + + + | Active Allergy | Reactions | Severity | Noted | Comments | | | | | Date | | + + + + + + | Azithromycin | Anaphylaxis | High | 11/30/19 | | | | | | 15 | | + + + + + + | Codeine | Hives | Medium | 11/30/19 | | | | | | 15 | | + + + + + + | Hydrocodone | Hives | Medium | 11/15/19 | | | | | | 16 | | + + + + + + | Hydroxyzine | Other (See Comments) | | 08/01/20 | "sleepwalks, | | | | | 19 | doesn't react well" | + + + + + + | Sulfa Antibiotics | Hives | Low | 08/22/20 | | | | | | 14 | | + + + + + + Medications + + + +---------+------+------+-------+ | Medication | Sig | Dispensed | Refills | Star | End | Statu | | | | | | t | Date | s | | | | | | Date | | | + + + +---------+------+------+-------+ | omeprazole | Take 20 mg by mouth | | 0 | | | Activ | | (PRILOSEC) 20 mg | every morning | | | | | e | | capsule | (before breakfast). | | | | | | + + + +---------+------+------+-------+ | cyclobenzaprine | 1 tablet orally 3 | 90 | 2 | 10/1 | | Activ | | (FLEXERIL) 10 mg | times per day | tablet | | 2/20 | | e | | tablet | | | | 15 | | | + + + +---------+------+------+-------+ | tamsulosin | Take 0.4 mg by mouth | | 0 | 05/1 | | Activ | | (FLOMAX) 0.4 mg CAPS | daily (after | | | 06/11 | | e | | | breakfast). | | | 17 | | | + + + +---------+------+------+-------+ | gabapentin | take 1 tablet by | | 0 | 10/1 | | Activ | | (NEURONTIN) 600 MG | mouth three times a | | | 6/20 | | e | | tablet | day | | | 17 | | | + + + +---------+------+------+-------+ | lisinopril | Take 10 mg by mouth | | 0 | 10/1 | | Activ | | (PRINIVIL, ZESTRIL) | Daily. | | | 3/20 | | e | | 10 mg tablet | | | | 17 | | | + + + +---------+------+------+-------+ | VENTOLIN HFA 108 | | | 0 | 09/1 | | Activ | | (90 Base) MCG/ACT | | | | 8/20 | | e | | inhaler | | | | 17 | | | + + + +---------+------+------+-------+ | atorvaSTATin | Take 40 mg by mouth | | 0 | | | Activ | | (LIPITOR) 40 mg | Daily. | | | | | e | | tablet | | | | | | | + + + +---------+------+------+-------+ | ergocalciferol | Take 50,000 Units by | | 0 | | | Activ | | (VITAMIN D-2) 50,000 | mouth Once a week. | | | | | e | | units capsule | On | | | | | | + + + +---------+------+------+-------+ | trolamine | leg | 170 g | 0 | 02/2 | | Activ | | salicylate | | | | 0/20 | | e | | (ASPERCREME) 10% | | | | 19 | | | | cream | | | | | | | + + + +---------+------+------+-------+ | metFORMIN | Take 2 tablets by | 60 | 0 | 02/2 | | Activ | | (GLUCOPHAGE) 500 mg | mouth 2 times daily. | tablet | | 0/20 | | e | | tablet | | | | 19 | | | + + + +---------+------+------+-------+ | | ALTERNATING 2 FILMS | | 0 | 04/1 | | Activ | | buprenorphine-naloxo | with 2 and 1/2 FILMS | | | 9/20 | | e | | ne (SUBOXONE) 8-2 mg | under the tongue | | | 19 | | | | SL film | once daily for 5 | | | | | | | | days | | | | | | + + + +---------+------+------+-------+ | ondansetron | | | 0 | 04/1 | | Activ | | (GILBERT ODT) 4 mg | | | | 8/20 | | e | | disintegrating | | | | 19 | | | | tablet | | | | | | | + + + +---------+------+------+-------+ | calamine lotion | Apply to affected | 118 mL | 1 | 11/1 | | Activ | | | area three times | | | 0/20 | | e | | | daily. | | | 19 | | | + + + +---------+------+------+-------+ | EPINEPHrine | Inject 0.3 mLs into | 1 each | 0 | 11/1 | | Activ | | auto-injector 0.3 | the muscle as needed | | | 0/20 | | e | | mg/0.3 mL injection | for Anaphylaxis. | | | 19 | | | + + + +---------+------+------+-------+ Active Problems + + + | Problem | Noted Date | + + + | Hypomagnesemia | 11/27/2018 | + + + | Chronic osteomyelitis of toe of right foot | 11/26/2018 | + + + | GERD (gastroesophageal reflux disease) | 11/07/2018 | + + + | Right bundle branch block | 11/07/2018 | + + + | Chronic renal insufficiency, stage 2 (mild) | 11/07/2018 | + + + + + | Overview: [id number]: GFR's 30's-60's. CRI with occasional | | PAULY | + + + + + | Smoker - Daily | 11/07/2018 | + + + | Marijuana use | 11/07/2018 | + + + | Cellulitis of left leg | 11/05/2018 | + + + | Opioid overdose, accidental or unintentional, initial encounter | 09/04/2018 | + + + | CAYLA (acute kidney injury) | 09/04/2018 | + + + | Displacement of peripherally inserted central venous catheter | 09/04/2018 | | (PICC) | | + + + | PICC (peripherally inserted central catheter) in place | 08/08/2018 | + + + + + | Overview: picc care and education | + + + + + | Severe sepsis | 08/07/2018 | + + + + + | Overview: Non-controlled diabetes, osteomyelitis, acute renal | | injury | + + + + + | Left arm pain | 03/12/2016 | + + + | Decreased activities of daily living (ADL) | 03/12/2016 | + + + | Obesity (BMI 30.0-34.9) | 11/15/2015 | + + + | Lateral epicondylitis of left elbow | 11/15/2015 | + + + | Lateral epicondylitis (tennis elbow), left | 11/15/2015 | + + + + + | Overview: 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 | + + + + + | Diabetes mellitus type II, ORAL Control | 10/28/2011 | + + + + + | Overview: Formatting of this note might be different from the | | original.See A1c HistoryHemoglobin A1c Date Value Ref Range | | Status 08/08/2018 12.9 (H) 4.3 - 6.0 % Final | |Date Value Ref Range Status | |08/08/2018 12.9 (H) 4.3 - 6.0 % Final | + + + + + | Other, mixed, or unspecified nondependent drug abuse, unspecified | 10/28/2011 | + + + + + | Overview: Overview: | | THC use 01/16/12 pt will not use.. | | | | Last Assessment & Plan: | | Reviewed with patient taht I would not prescribe opiate. | | | | Referral made to pain clinic. | + + + + + | Backache | 10/25/2011 | + + + + + | Overview: Overview: | | wants to see pain specialist. broken contract at previous clinic | | | | Overview: | | wants to see pain specialist. broken contract at previous clinic | | | | Dx name changed by system update 06/13/2017 | + + + + + | Chronic airway obstruction, not elsewhere classified | 10/25/2011 | + + + | Immune deficiency disorder | | + + + + + | Overview: Lab results placed in chart regarding [id number] | | Phenotype.CYP2D6, a member of the cytochrome P450 mixed-function | | oxidase system, is one of the most important enzymes involved in | | the metabolism of xenobiotics in the body. In particular, CYP2D6 | | is responsible for the metabolism and elimination of | | approximately 25% of clinically used drugs, via the addition or | | removal of certain functional groups | | | | specifically, hydroxylation, demethylation, and dealkylation. | | Other drugs, known as prodrugs, are activated by the action of | | CYP2D6. This enzyme also metabolizes several endogenous | | substances, such as hydroxytryptamines, neurosteroids, and both | | m-tyramine and p-tyramine which CYP2D6 metabolizes into dopamine | | in the brain and liver. | + + + +---+ | Seizure | | + +---+ | ANNY Inhibitors - Daily use | | + +---+ + + | Overview: Overview: | | Dx Name changed by system update on 07/04/2017 | + + Resolved Problems + + + + | Problem | Noted | Resolved | | | Date | Date | + + + + | Diabetes mellitus type II, non insulin dependent | 10/03/19 | | | | 12 | 9 | + + + + Encounters +--------+ + + + + | Date | Type | Specialty | Care Team | Description | +--------+ + + + + | 05/18/ | Emergency | Emergency Medicine | Tra Corley, | Visual | | 2020 | | | MD | hallucinations | | | | | | (Primary Dx); | | | | | | Paranoia (psychosis) | | | | | | (HCC) | +--------+ + + + + from Last 3 Months Immunizations + + + + | Name | Administration Dates | Next Due | + + + + | INFLUENZA PF 18 Y OR | 08/11/2017, 08/09/2016, 06/12/2015, | | | >,QUADRIVALENT | 06/17/2014, 07/29/2013 | | | RECOMBINANT | | | + + + + | INFLUENZA PF | 11/06/2018 | | | QUAD(PED/ADOL/ADULT) | | | | ,PSKT or VIAL | | | + + + + | INFLUENZA PF | 06/12/2015, 06/17/2014, 07/29/2013 | | | TRIVALENT(PED/ADOL/A | | | | DULT), PSKT | | | + + + + | INFLUENZA QUADR | 06/17/2014 | | | W/PRES | | | | (PED/ADOL/ADULT) | | | | MULTIDOSE | | | + + + + | INFLUENZA TRIV | 06/12/2015, 06/17/2014, 07/29/2013, | | | W/PRES(PED/ADOL/ADUL | 08/23/2010 | | | T),MULTIDOSE | | | + + + + | INFLUENZA, | 08/23/2010 | | | UNSPECIFIED | | | | FORMULATION | | | + + + + | PNEUMOCOCCAL | 08/09/2016, 07/14/2015, 07/29/2013 | | | POLYSACCHARIDE | | | | 23-VALENT (PPSV23) | | | + + + + | TDAP, (ADOL/ADULT) | 08/09/2016, 06/17/2014, 07/29/2013 | | + + + + Social History + [...] on file | | + + + Last Filed Vital Signs + + + + + | Vital Sign | Reading | Time Taken | Comments | + + + + + | Blood Pressure | 124/72 | 11/30/2019 2:15 PM | | | | | PDT | | + + + + + | Pulse | 100 | 11/30/2019 2:15 PM | | | | | PDT | | + + + + + | Temperature | 36.6 C (97.9 F) | 11/30/2019 1:27 PM | | | | | PDT | | + + + + + | Respiratory Rate | 13 | 11/30/2019 1:55 PM | | | | | PDT | | + + + + + | Oxygen Saturation | 97% | 11/30/2019 2:15 PM | | | | | PDT | | + + + + + | Inhaled Oxygen | - | - | | | Concentration | | | | + + + + + | Weight | 105.2 kg (232 lb) | 11/30/2019 12:09 PM | | | | | PDT | | + + + + + | Height | 182.9 cm (6') | 11/30/2019 12:09 PM | | | | | PDT | | + + + + + | Body Mass Index | 31.46 | 11/30/2019 12:09 PM | | | | | PDT | | + + + + + Plan of Treatment + + + + + | Health Maintenance | Due Date | Last | Comments | | | | Done | | + + + + + | Hepatitis C | | | | | Screening | 2 | | | + + + + + | Medication | | | | | Management | 2 | | | + + + + + | Diabetic Eye Exam | | | | | | 0 | | | + + + + + | Diabetic Foot Exam | | | | | | 0 | | | + + + + + | Med Mgmt: Vit D | | 03/14/20 | | | | 8 | 17, | | | | | 12/17/19 | | | | | 17 | | + + + + + | Hemoglobin A1c | | 08/08/20 | | | Screening | 9 | 18, | | | | | 03/12/20 | | | | | 17, | | | | | 12/17/19 | | | | | 17 | | + + + + + | Med Mgmt: HBA1C | | 08/08/20 | | | | 9 | 18, | | | | | 03/12/20 | | | | | 17, | | | | | 12/17/19 | | | | | 17 | | + + + + + | Vaccine: Influenza | | 11/23/19 | | | (#1) | 0 | 20, | | | | | 11/06/19 | | | | | 19, | | | | | 08/11/20 | | | | | 17, | | | | | Addition | | | | | al | | | | | history | | | | | exists | | + + + + + | Med Mgmt: Cr | | 11/02/19 | | | | 1 | 20, | | | | | 12/08/19 | | | | | 19, | | | | | 11/29/19 | | | | | 19, | | | | | Addition | | | | | al | | | | | history | | | | | exists | | + + + + + | Med Mgmt: K | | 11/02/19 | | | | 1 | 20, | | | | | 12/08/19 | | | | | 19, | | | | | 11/29/19 | | | | | 19, | | | | | Addition | | | | | al | | | | | history | | | | | exists | | + + + + + | Med Mgmt: eGFR | | 11/02/19 | | | | 1 | 20, | | | | | 12/08/19 | | | | | 19, | | | | | 11/29/19 | | | | | 19, | | | | | Addition | | | | | al | | | | | history | | | | | exists | | + + + + + | Vaccine: | | 08/09/20 | | | Dtap/Tdap/Td (4 - | 6 | 16, | | | Td) | | 06/17/20 | | | | | 14, | | | | | 07/29/20 | | | | | 13 | | + + + + + | Vaccine: | Completed | 08/09/20 | | | Pneumococcal 19-64 | | 16, | | | | | 07/14/20 | | | | | 15, | | | | | 07/29/20 | | | | | 13 | | + + + + + Implants + +--------+--------+ +--------+--------+--------+ | Implanted | Type | Area | Manufacture | Device | Shelf | Model | | | | | r | | Expira | / | | | | | | Identi | tion | Serial | | | | | | fier | Date | / Lot | + +--------+--------+ +--------+--------+--------+ | Lens Tecnis Preloaded Pcb | Generi | Right: | CANELA | | 07/29/ | [id number] | | 21.0 - [id number]: | c | Eye | MEDICAL | | 2021 | [id number] | | Qty: 1 on 11/25/2019 by | | | [employer] - | | | /[id number] | | Ruslan Chu MD at | | | [place] | | | [id number] | | [facility] | | | | | | /N/A | | [facility] | | | | | | | + +--------+--------+ +--------+--------+--------+ | Lens Tecnis Preloaded Pcb | Generi | Left: | CANELA | | 10/25/ | [id number] | | 21.5 - [id number]: | c | Eye | MEDICAL | | 3 | 0215 | | Qty: 1 on 11/30/2019 by | | | [employer] - | | | /[id number] | | Ruslan Chu MD at | | | [place] | | | [id number] | | [facility] | | | | | | / | | [facility] | | | | | | | + +--------+--------+ +--------+--------+--------+ Results Not on filefrom Last 3 Months Insurance + +--------+ +--------+ +---------+--------+ | Payer | Benefi | Subscriber | Effect | Phone | Address | Type | | | t Plan | ID | obed | | | | | | / | | Dates | | | | | | Group | | | | | | + +--------+ +--------+ +---------+--------+ | [employer] | [employer] | [id number] | 02/28/20 | [phone] | | Medica | | MEDICAID HMO | HEALTH | | 17-Pre | 1 | | id | | | MDCD | | sent | | | | | | [place] | | | | | | + +--------+ +--------+ +---------+--------+ + +--------+ +--------+ + + | Guarantor Name | Accoun | Relation to | Date | Phone | Billing Address | | | t Type | Patient | of | | | | | | | | | | + +--------+ +--------+ + + | Lorenzo Arias | Person | Self | [birth year] | [address] | | r S | al/Fam | | 1970 | [phone] | [place], [place] | | | sammi | | | 0 (Home) | [address] | + +--------+ +--------+ + + Advance Directives + + + + + | Type | Date Recorded | Patient | Explanation | | | | Office Inspector | | + + + + + | Power of | | | refused | | Rn Er | | | | + + + + + | Advance | 05/14/2017 2:57 | | | | Directive | PM | | | + + + + + + + + + + | Code Status | Date | Date | Comments | | | Activated | Inactivated | | + + + + + | Full Code | 11/30/2019 | 11/30/2019 | | | | 1:59 PM | 4:32 PM | | + + + + + + + + +---+ | | | | | + + + +---+ | Full Code | 11/25/2019 | 11/25/2019 | | | | 4:01 PM | 6:25 PM | | + + + +---+ + + + +---+ | | | | | + + + +---+ | Full Code | 11/26/2018 | 11/28/2018 | | | | 2:46 AM | 4:48 PM | | + + + +---+ + +---------+---+ | Orders discussed with: | Patient | | + +---------+---+ + + + +---+ | | | | | + + + +---+ | Full Code | 11/06/2018 | 11/11/2018 | | | | 12:03 AM | 5:51 PM | | + + + +---+ + + + +---+ | | | | | + + + +---+ | Full Code | 09/04/2018 | 09/07/2018 | | | | 8:28 PM | 3:36 PM | | + + + +---+ + +---------+---+ | Orders discussed with: | Patient | | + +---------+---+
--- OUTSIDE RECORDS SUMMARY | ~2020-06-16 | XMS | Encounter Summary ---
Demographics + + + | Address | [address] | | | [place] [address] | + + + | Home Phone | | + + + | Preferred Language | Unknown | + + + | Marital Status | | + + + | Adventism Affiliation | Unknown | + + + | Race | White | + + + | Ethnic Group | Not or | + + + Author + + + | Author | [facility] | | | and [place] | + + + | Organization | [facility] | | | and [place] | + + + | Address | Unknown | + + + | Phone | Unavailable | + + + Support + + + + + | Name | Relationship | Address | Phone | + + + + + | Crystal Luzr | ECON | [address] | | | | | [place], | | | | | [place] [address] | | + + + + + Care Team Providers + +------+ + | Care Occasional Caregiver Name | Role | Phone | + +------+ + PCP | Unavailable | + +------+ + Reason for Visit + +--------+ + | Reason | Onset | Comments | | | Date | | + +--------+ + | Medication | 06/16/ | | | Management | 2014 | | + +--------+ + Encounter Details +--------+ + + + + | Date | Type | Department | Care Team | Description | +--------+ + + + + | 06/16/ | Telephone | [facility] | Will Capellan, | Medication | | 2014 | | [facility] [place] | [address] | Management | | | | [address] | [place] | | | | | [place] | [address] | | | | | [address] | | | | | | [phone] | | | +--------+ + + + [...] this encounter Miscellaneous Notes Telephone Encounter - Tio Gabriela Flower RN - 06/16/2015 3:18 PM PDTCalled patient and ga ve him message from Dr. Capellan. Patient states, "I'm going to have to disagree with him on t hat" in regards to the increased oxycodone dose making up for the decreased methadone dose. Patients states that his last doctor in [place] was a "crackpot." Says he decreased his pa in medications way too much and way too quickly. Patient states provider decreased his oxyco done from 8 tabs to 4-5 tabs a day, and his methadone from 180 mg a day to 90 mg. Then repor ts he had decreased that oxycodone dose had been decreased from 180 mg to 30 mg a day, which was too much of a drop. Patient states that he has noticed his pain is best managed when he takes 75-90 mg a day of his methadone and 4-5 tabs a day of his oxycodone. Patient knows that Dr. Capellan "has been abused on the pain pill thing from people, and I fe el bad even asking, but I'm hurting." States that he knows Dr. Capellan is tired of prescribin g pain medications and does not want to argue with him on this matter. Says, "I understand t hat there are a lot of weirdos that come in asking for pain pills, ruining it for everyone e lse, and it sucks for the rest of us." Patient says he gets frustrated that his pain can not always be controlled on the same dose. He also states, "I don't like my visits to be overwh elmed talking about pain pills. I don't want it to consume my whole visit. I wish I could fo cus more on discussing my diabetes." Says he has his complete medical records that have better documentation of his pain managem ent and previous doses. Advised patient to bring records to office for Dr. Capellan's referenc e. Also advised him that his dose may not be changed for his methadone or oxycodone at this time. Patient verbalized understanding. Electronically signed by Gabriela Kinsey RN at 4:02 PM PDTTelephone Encounter - Will Capellan MD - 06/16/2015 2:54 PM PDTWe ll he should be fine. His old records show he only received one oxycodone daily as needed and he reported he took 4 per day prn at our first appt. And received a rx for q6 hr dosing. That would more than c over his methadone 10mg/day decrease we did. So lets try to also decrease the oxcodone to every 12 hrs as needed next time he needs it f illed and then down to 1 daily as needed like he was getting before. i also need him to stop smoking marajuana if he is taking methadone or oxycodone. Wilfredoi pam signed by Will Capellan MD at 06/16/2015 3:01 PM PDTTelephone Encounter - Gabriela [place] RN - 06/16/2015 1:49 PM PDTPhone call from patient. 1. States he is currently taking methadone 10 mg 3 tabs every 8 hours as needed. Patient sa ys that at his appointment today, they discussed decreasing his dose. However, patient did n ot notice that dose was increased to 0.5 tablet every 8 hours. Patient is not sure he can de crease to such a low dose so quickly. Patient understands Dr. Capellan felt uncomfortable pres cribing narcotics, but wonders if a slightly higher dose can be done at this time. 2. Patient asks if Dr. Capellan needs anymore of his previous medical records. States he has all of them at home and can bring them in anytime. Please advise. Patient can be reached at [phone]. documented in this encounter Plan of Treatment Not on filedocumented as of this encounter Visit Diagnoses Not on filedocumented in this encounter
--- OUTSIDE RECORDS SUMMARY | ~2020-06-16 | XMS | Encounter Summary ---
Demographics + + + | Address | [address] | | | [place] [address] | + + + | Home Phone | | + + + | Preferred Language | Unknown | + + + | Marital Status | | + + + | Adventism Affiliation | Unknown | + + + | Race | White | + + + | Ethnic Group | Not or | + + + Author + + + | Author | [facility] | | | and [place] | + + + | Organization | [facility] | | [...] [place], | | | | | [place] [address] | | + + + + + Care Team Providers + +------+ + | Care Instant Potato Processing Supervisor Name | Role | Phone | + +------+ + | Dimitri Fischer MD | PCP | | + +------+ + Encounter Details +--------+ + + + + | Date | Type | Department | Care Team | Description | +--------+ + + + + | 03/10/ | Orders Only | [facility] | Marty Wood | | | 2016 | | ORTHOPEDIC SURGERY | MD [address] | | | | | [address] | [place] | | | | | [place] | [address] | | | | | [address] | | | | | | [phone] | | | +--------+ + + + [...]
--- OUTSIDE RECORDS SUMMARY | ~2020-06-16 | XMS | Encounter Summary ---
Demographics + + + | Address | [address] | | | [place] [address] | + + + | Home Phone | | + + + | Preferred Language | Unknown | + + + | Marital Status | | + + + | Scientology Affiliation | Unknown | + + + | Race | White | + + + | Ethnic Group | Not or | + + + Author + + + | Author | [facility] | | | and [place] | + + + | Organization | [facility] | | | [...] [place], | | | | | [place] [address] | | + + + + + Care Team Providers + +------+ + | Care Pharmacy Intake Technician Name | Role | Phone | + +------+ + | Russell Sanabria MD | PCP | | + +------+ + Reason for Visit Evaluate & Treat (Routine) +--------+--------+ + + + + | Status | Reason | Specialty | Diagnoses / | Referred By | Referred To | | | | | Procedures | Contact | Contact | +--------+--------+ + + + + | Closed | | Infusion | Diagnoses | Sebastian, | [facility] | | | | Therapy | Dr. Cortes, | [facility], | Infusion [address] | | | | | Osteomyeliti | MD [address] | | | | | s, | [address] | [place], | | | | | Rocephin,IV, | [place], | [place] [address] | | | | | or IM 2G | [place] | Phone: | | | | | daily X42 | [address] | [phone] | | | | | days | Phone: | Fax: | | | | | Procedures | [phone] | [phone] | | | | | [place] | Fax: | | | | | | CEFTRIAXONE | [phone] | | | | | | SODIUM | | | | | | | INJECTION, | | | | | | | 250 MG [place] | | | | | | | IV INFUSION, | | | | | | | | | | | | | | THERAP/PROPH | | | | | | | /DIAGNOST,IN | | | | | | | ITIAL,1ST | | | | | | | HOUR [facility] | | | | | | | INF ABX | | | | | | | SERIES 1 | | | | | | | ONLY | | | +--------+--------+ + + + + Encounter Details +--------+ + + + + | Date | Type | Department | Care Team | Description | +--------+ + + + + | 12/15/ | Hospital | [facility] | Omega Cortes, | Chronic | | 2019 | Encounter | MED CTR OP INFUSION | MD [address] | osteomyelitis of toe | | | | [address] | [place] | of right foot (HCC) | | | | [place], [place] | [address] | | | | | [address] | [phone] | | | | | [phone] | | | +--------+ + + + [...] + + + | Blood Pressure | 128/61 | 12/15/2018 12:56 PM | | | | | PDT | | + + + + + | Pulse | 100 | 12/15/2018 12:56 PM | | | | | PDT | | + + + + + | Temperature | 37 C (98.6 F) | 12/15/2018 12:06 PM | | | | | PDT | | + + + + + | Respiratory Rate | 18 | 12/15/2018 12:56 PM | | | | | PDT | | + + + + + | Oxygen Saturation | 96% | 12/15/2018 12:56 PM | | | | | PDT | | + + + + + | Inhaled Oxygen | - | - | | | Concentration | | | | + + + + + | Weight | - | - | | + + + + + | Height | - | - | | + + + + + | Body Mass Index | - | - | | + [...] not | 1 kit | 0 | 11/29/19 | | | Monitoring Suppl | apply [...] | 11/29/19 | | | test strips (Cloud Take[employer] | | each | | 19 | [...] 3 mL | 0 | 11/29/19 | 11/10/201 | | (HUMALOG KWIKPEN) | under the [...] documented as of this encounter Progress Notes Radha Guerrero RN - 12/15/2018 1:02 PM PDTMonitored throughout treatment; treatment c ompleted without untoward effects from medication noted. Next visit tomorrow 1200. Verbalize s understanding of plan of care. Discharged ambulatory to home in stable condition with spou se. Natividad Bernstein RN - 12/15/2018 12:15 PM PDTChristopher S Sergiolonitis received into room 440, independent ambulation accompanied by spouse. States here for rocephin infusion. Reports no change in c ondition, plan of care since last MD visit. Alert, oriented x 4, cooperative. documented in this encounter Plan of Treatment Not on filedocumented as of this encounter Visit Diagnoses + + | Diagnosis | + + | Chronic osteomyelitis of toe of right foot (HCC) | + + documented in this encounter Administered Medications + +---------+ +------+-------+------+ | Medication Order | MAR | Action | Dose | Rate | Site | | | Action | Date | | | | + +---------+ +------+-------+------+ | cefTRIAXone (ROCEPHIN) 2 g in | New Bag | 12/16/19 | 2 g | 100 | | | sodium chloride 0.9% 50 mL IVPB | | 19 12:27 | | mL/hr | | | 2 g, Intravenous, Administer over | | PM PDT | | | | | 30 Minutes, ONCE, 12/15/18 at | | | | | | | 1220, For 1 dose, Keep in | | | | | | | refrigerator. Do not give | | | | | | | calcium-containing IVs and TPN | | | | | | | via Y-site. Activate system and | | | | | | | mix before use., Indications: | | | | | | | Infection, Osteomyelitis | | | | | | + +---------+ +------+-------+------+ +---+---+ | | | +---+---+ documented in this encounter"
--- OUTSIDE RECORDS SUMMARY | ~2020-06-16 | XMS | Encounter Summary ---
Demographics + + + | Address | [address] | | | [place] [address] | + + + | Home Phone | | + + + | Preferred Language | Unknown | + + + | Marital Status | | + + + | Gnosticism Affiliation | Unknown | + + + | Race | White | + + + | Ethnic Group | Not or | + + + Author + + + | Author | [facility] | | | and [place] | + + + | Organization | [facility] | | | [...] [place], | | | | | [place] [address] | | + + + + + Care Team Providers + +------+ + | Care Slicing Machine Operator Name | Role | Phone | [...] | | | | Diagnoses | | | | | | | Combined | | | | | | | forms of | | | | | | | age-related | | | | | | | cataract, | | | | | | | right eye | | | | | | | Procedures | | | | | | | KS XCAPSL | | | | | | | CTRC RMVL | | | | | | | INSJ IO LENS | | | | | | | PROSTH W/O | | | | | | | ECP RIGHT | | | | | | | EXTRACTION | | | | | | | CATARACT W/ | | | | | | | OR W/O LENS | | | | | | | IMPLANT | | | +--------+--------+ + + + + Encounter Details +--------+---------+ + + + | Date | Type | Department | Care Team | Description | +--------+---------+ + + + | 11/24/ | Surgery | [facility] | ElizasinanChristopher hutchinsonur | RIGHT EXTRACTION | | 2019 | | MED CTR OR INTRA OP | MD [address] | CATARACT W/ LENS | | | | [address] | [address] [place] | IMPLANT | | | | [place], [place] | [place] [address] | | | | | [address] | [phone] | | | | | [phone] | | | +--------+---------+ + + + [...] + + + | Blood Pressure | 115/70 | 11/25/2019 4:00 PM | | | | | PST | | + + + + + | Pulse | 97 | 11/25/2019 4:00 PM | | | | | PST | | + + + + + | Temperature | 36.4 C (97.5 F) | 11/25/2019 3:18 PM | | | | | PST | | + + + + + | Respiratory Rate | 16 | 11/25/2019 4:00 PM | | | | | PST | | + + + + + | Oxygen Saturation | 98% | 11/25/2019 4:00 PM | | | | | PST | | + + + + + | Inhaled Oxygen | - | - | | | Concentration | | | | + + + + + | Weight | 104.1 kg (229 lb 8 | 11/25/2019 1:00 PM | | | | oz) | PST | | + + + + + | Height | 182.9 cm (6') | 11/25/2019 1:00 PM | | | | | PST | | + + + + + | Body Mass Index | 31.13 | 11/25/2019 1:00 PM | | | | | PST [...] documented as of this encounter Discharge Instructions Instructions Flor Soto RN - 11/25/2019FOLLOWING SURGERY: Wear the patch and shield until you get home or until your first post-op appointment, if same day. You may then discard the patch, but continue to wear the eye shield as noted vidya luque. Do not drive for at least 24 hours (longer if vision isn't clear enough to be safe) If prescribed the following eyedrops to use after surgery, then use as follows: Prednisolone acetate 1% - Shake well before using. Place 1 drop in your surgery ey e 4 times daily and continue for 1 month after surgery. Ofloxacin 0.3% - Place 1 drop in your surgery eye 4 times daily and continue for 1 week after surgery. Close your eye for 3-5 minutes after each eye drop. If your surgery eye has a dry, irritated, or "foreign body" sensation, you may use cold compresses or preservative free artificial tears (in individual vials) as needed. Drink water to stay well-hydrated and to promote healing. Most people need 8 glasses of water daily. Use your preferred non-prescription pain medicine as needed for mild discomfort. You will have appointments with your eye doctor as scheduled in future weeks/months. Rita ng any eye drops you are taking to your first post-op appointment. THE FIRST DAYS AFTER SURGERY: The first few days are the most important after eye surgery t o be sure the eye heals well. Listed below are some things you should do or avoid doing: You may bend over, sleep on either side, read, go out to dinner, and resume most of your normal activities. Walking and gentle exercises are OK. Avoid strenuous activity for the first 3 days. Keep your eye clean with gentle lid scrubs and avoid wearing makeup for 3 days. Wear the eye shield for the first 3-4 nights to keep from bumping the eye while you are sleeping. Do not rub your eye. If you have an urge to rub your eye, wear the eye shield and jos nue using it when sleeping for even the first week after surgery. Avoid dry, althea or dirty environments for at least 3 days. You may shower, but keep you eye dry for 3 days. Avoid dunking your head under water. Avoid splashing your face or dunking your head under water for 3 days. You may shower, k eeping your eye dry. No swimming, water sports, Jacuzzi, spa, or pool for 1 week. EXPECTATIONS: You may experience strange sensations after surgery, such as numbness, halos around lights, blurred and/or double vision. These usually resolve in 2-6 hours. Your visi on will improve over time as your eye heals, but may fluctuate over the first few weeks. Re dness will usually be gone within a few weeks. A mild dry eye sensation may persist for macarena e months. IMPORTANT! If you have the following symptoms, immediately call your eye doctor or [facility] at (dial "9" after hours or on weekends): Bleeding or discharge from the eye. Vision suddenly becomes worse. Huge increase in floaters. Flashing lights or a curtain over part of or all of your vision. Severe pain not relieved by the pain reliever you've been instructed to take. Nausea, vomiting, chills, or fever over 100.4. Recovery After Procedural Sedation (Adult) You have been given medicine by vein to make you sleep during your procedure. This may have included both a pain medicine and sleeping medicine. Most of the effects have worn off. But you may still have some drowsiness for the next 6 to 8 hours. Home care Follow these guidelines when you get home: For the next 8 hours, you should be watched by a responsible adult. This person should m jackie sure your condition is not getting worse. Don't drink any alcoholfor the next [address]. [address], operate dangerous machinery,make important business or personal decisions , or sign legal documentsduring the next 24 hours. Note: Your healthcare provider may tell you not to take any medicine by mouth for pain or s leep in the next 4 hours. These medicines may react with the medicines you were given in the hospital. This could cause a much stronger response than usual. Follow-up care Follow up with your healthcare provider if you are not alert and back to your usual level o f activity within 12 hours. When to seek medical advice Call your healthcare provider right away if any of these occur: Drowsiness gets worse Weakness or dizziness gets worse Repeated vomiting You can't be awakened Date Last Reviewed: 07/09/201619990123-2106 [employer]. [address] [place] [address], [place] [address]. All righ ts reserved. This information is not intended as a substitute for professional medical care. Always follow your healthcare professional's instructions. documented in this encounter Medications at Time [...] ALTERNATING 2 FILMS | | 0 | 04//20 | | | buprenorphine-naloxo | with 2 [...] + + documented as of this encounter H&P Ruslan Rojas MD - 11/25/2019 2:38 PM PSTSURGICAL INTERIM HISTORY & PHYSICAL UPDA TE Pt. Name/Age/: Cecilio Arias 49 y.o. 1970 Date of admission: 11/25/2019 The current H&P was reviewed. The patient was reexamined. Re-evaluation of the patient co nfirms the necessity for the scheduled procedure. No change has occurred in the patient s condition since the H&P was completed less than 30 days ago. VERIFICATION OF CONSENT (PARQ) The patient was counseled regarding the procedure, its indications, risks, potential compli cations and alternatives. Any questions were answered. Consent was obtained. 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 Two side ports were made, the anterior capsule stained with trypan blue, and the anterior chamber was filled wi th viscoelastic. A Malyugin was placed. A keratome was used to create the main wound tempora lly. Utrata forceps were used for a capsulorhexis. After hydrodissection, the lens was phaco emulsified and residual cortex was aspirated. The artificial lens was placed under viscoelas tic which was then removed along with the Malyugin ring. The wounds were checked and found t o be watertight. Vigamox 0.1cc was placed in the anterior chamber. Triamcinolone 3mg was pl aced in the subconjunctival space. Pilocarpine 1% drops were placed on the eye. A patch and shield were placed over the eye. Postoperative Plan: The patient was sent to recovery in good condition. Complications: none Estimated Blood Loss: none documented in t his encounter Plan of Treatment Not on filedocumented as of this encounter Procedures + +--------+ + + + | Procedure Name | Priori | Date/Time | Associated Diagnosis | Comments | | | ty | | | | + +--------+ + + + | EXTRACTION CATARACT | | 11/25/2019 | Combined forms of | | | W/ OR W/O LENS | | 2:45 PM | age-related | | | IMPLANT | | PST | cataract, right eye | | + +--------+ + + + | POC GLUCOSE | Routin | 11/25/2019 | | Results for this | | | e | 2:11 PM | | procedure are in the | | | | PST | | results section. | + +--------+ + + + documented in this encounter Results POC Glucose (11/25/2019 2:11 PM PST) + +---------+ + + + | Component | Value | Ref Range | Performed | Pathologist | | | | | At | Signature | + +---------+ + + + | Glucose, | 195 (H) | 70 - 109 mg/dL | [facility] | | | POC | | | [facility] | | [...] [address] | [place] | [phone] | | [facility] | | [address] | | | - LABORATORY | | | | + + + + + documented in this encounter Visit Diagnoses + + | Diagnosis | + + | Combined forms of age-related cataract, right eye | + + documented in this encounter Administered Medications + +--------+---------+------+------+------+ | Medication Order | MAR | Action | Dose | Rate | Site | | | Action | Date | | | | + +--------+---------+------+------+------+ + +---+ | albuterol-ipratropium 2.5-0.5 | | | mg/3 mL nebulizer solution 3 mL | | | 3 mL, Nebulization, ONCE PRN, | | | Wheezing, Shortness of Breath, | | | Starting Светлана 11/25/19 at 1512, For | | | 1 dose, Recovery/Phase I | | + +---+ | | | + +---+ + +-------+ + +---+ + | balanced salts sterile | Given | 11/25/19 | 1 | | Surgical | | ophthalmic irrigation solution | | 20 2:55 | Applicat | | Site | | PRN, Starting Светлана 11/25/19 at 1455, | | PM PST | ion | | | | Intra-op | | | | | | + +-------+ + +---+ + +---+---+ | | | +---+---+ + +-------+ +-------+---+---+ | BSS 2.25ML + lidocaine 4% | Given | 11/25/19 | 3 mLs | | | | 0.75ML + EPINEPHrine (1:1000) 1ML | | 20 2:58 | | | | | one step ophthalmic solution | | PM PST | | | | | PRN, Starting Светлана 11/25/19 at 1458, | | | | | | | Intra-op | | | | | | + +-------+ +-------+---+---+ + +---+ | | | + +---+ | dextrose 50% injection 12.5-25 | | | g 12.5-25 g, Intravenous, EVERY | | | 15 MIN PRN, Low Blood Sugar, For | | | hypoglycemia. Give 12.5g (25ml) | | | IV if blood glucose 50-69 | | | mg/dL. Give 25g (50ml) IV if | | | blood glucose < 50, Starting Светлана | | | 11/25/19 at 1512, Give over 2 min. | | | Repeat in 15 min if blood | | | glucose remains < 70 mg/dL. | | | Repeat blood glucose in 30 min | | | once blood glucose > 70., | | | Recovery/Phase I | | + +---+ | | | + +---+ + +-------+ +--------+---+---+ | fentaNYL (PF) injection 25 mcg | Given | 11/25/19 | 25 mcg | | | | 25 mcg, Intravenous, EVERY 5 MIN | | 20 3:58 | | | | | PRN, Pain, Initial postop urgent | | PM PST | | | | | pain or escalating pain, | | | | | | | Starting Светлана 11/25/19 at 1512, For | | | | | | | 8 doses, Every 5 minutes PRN for | | | | | | | initial postop urgent pain., | | | | | | | Recovery/Phase I | | | | | | + +-------+ +--------+---+---+ +-------+ +--------+---+---+ | Given | 11/25/19 | 25 mcg | | | | | 20 3:49 | | | | | | PM PST | | | | +-------+ +--------+---+---+ | Given | 11/25/19 | 25 mcg | | | | | 20 3:43 | | | | | | PM PST | | | | +-------+ +--------+---+---+ +---+---+ | | | +---+---+ + +-------+ +-------+---+---+ | hyaluronate & chondroitin | Given | 11/25/19 | 1 kit | | | | hyaluronate (DUOVISC) intraocular | | 20 3:00 | | | | | kit PRN, Starting Светлана 11/25/19 at | | PM PST | | | | | 1500, Intra-op | | | | | | + +-------+ +-------+---+---+ +---+---+ | | | +---+---+ + +-------+ +--------+---+---+ | lidocaine (AKTEN) 3.5% | Given | 11/25/19 | 1 drop | | | | ophthalmic gel 1 drop 1 drop, | | 20 2:30 | | | | | Right Eye, Prior to Incision, | | PM PST | | | | | Starting Светлана 11/25/19 at 1350, For | | | | | | | 2 doses, Begin after | | | | | | | proparacaine. Begin 10 minutes | | | | | | | prior to leaving SDS for | | | | | | | operating room. Repeat jelly just | | | | | | | prior to leaving SDS and Q10 | | | | | | | minutes until in the operating | | | | | | | room. Keep eye closed after | | | | | | | placing medication., Pre-op | | | | | | + +-------+ +--------+---+---+ +-------+ +--------+---+---+ | Given | 11/25/19 | 1 drop | | | | | 20 2:12 | | | | | | PM PST | | | | +-------+ +--------+---+---+ +---+---+ | | | +---+---+ + +-------+ + +---+ + | lidocaine (XYLOCAINE) 2% jelly | Given | 11/25/19 | 1 | | Surgical | | (uro-jet) CHRISSIE, Starting Светлана | | 20 2:56 | Applicat | | Site | | 11/25/19 at 1456, Intra-op | | PM PST | ion | | | + +-------+ + +---+ + +---+---+ | | | +---+---+ + +-------+ +--------+---+ + | moxifloxacin (VIGAMOX) 0.5 % | Given | 11/25/19 | 0.5 mg | | Eye-Righ | | intracameral injection PRN, | | 20 3:01 | | | t | | Starting Светлана 11/25/19 at 1501, | | PM PST | | | | | Intra-op | | | | | | + +-------+ +--------+---+ + + +---+ | | | + +---+ | ondansetron (ZOFRAN) injection | | | 4 mg 4 mg, Intravenous, EVERY 4 | | | HOURS PRN, Nausea, Vomiting, | | | Starting Светлана 11/25/19 at 1512, | | | Recovery/Phase I | | + +---+ | | | + +---+ + +-------+ +--------+---+---+ | phenylephrine (SKYE-SYNEPHRINE) | Given | 11/25/19 | 1 drop | | | | 2.5% ophthalmic solution 1 drop | | 20 2:12 | | | | | 1 drop, Right Eye, Prior to | | PM PST | | | | | Incision, Starting Светлана 11/25/19 at | | | | | | | 1350, For 3 doses, Begin after | | | | | | | proparacaine. 1 drop every 10 | | | | | | | minutes for 3 doses. (May | | | | | | | alternate every 5 minutes with | | | | | | | tropicamide) Remind patient to | | | | | | | keep eye closed after placing | | | | | | | each drop., Pre-op | | | | | | + +-------+ +--------+---+---+ +-------+ +--------+---+---+ | Given | 11/25/19 | 1 drop | | | | | 20 2:06 | | | | | | PM PST | | | | +-------+ +--------+---+---+ | Given | 11/25/19 | 1 drop | | | | | 20 2:01 | | | | | | PM PST | | | | +-------+ +--------+---+---+ +---+---+ | | | +---+---+ + +-------+ +---------+---+ + | pilocarpine (ISOPTO CARPINE) 1% | Given | 11/25/19 | 2 drops | | Surgical | | ophthalmic solution PRN, | | 20 3:01 | | | Site | | Starting Светлана 11/25/19 at 1501, | | PM PST | | | | | Intra-op | | | | | | + +-------+ +---------+---+ + +---+---+ | | | +---+---+ + +-------+ +---------+---+---+ | povidone-iodine 5 % ophthalmic | Given | 11/25/19 | 2 drops | | | | solution PRN, Starting Светлана | | 20 2:48 | | | | | 11/25/19 at 1446, Intra-op | | PM PST | | | | + +-------+ +---------+---+---+ +---+---+ | | | +---+---+ + +-------+ +--------+---+---+ | proparacaine (ALCAINE) 0.5% | Given | 11/25/19 | 1 drop | | | | ophthalmic solution 1 drop 1 | | 20 2:01 | | | | | drop, Right Eye, Prior to | | PM PST | | | | | Incision, Starting Светлана 11/25/19 at | | | | | | | 1350, For 1 dose, After placing | | | | | | | anesthetic, keep eye closed | | | | | | | except for when placing | | | | | | | additional medications. All other | | | | | | | drops/gel should follow this | | | | | | | drop., Pre-op | | | | | | + +-------+ +--------+---+---+ +---+---+ | | | +---+---+ + +-------+ +------+---+---+ | triamcinolone acetonide | Given | 11/25/19 | 5 mg | | | | (KENALOG-10) 10 mg/mL injection | | 20 3:01 | | | | | PRN, Starting Светлана 11/25/19 at 1501, | | PM PST | | | | | Intra-op | | | | | | + +-------+ +------+---+---+ +---+---+ | | | +---+---+ + +-------+ +--------+---+---+ | tropicamide (MYDRIACYL) 1% | Given | 11/25/19 | 1 drop | | | | ophthalmic solution 1 drop 1 | | 20 2:12 | | | | | drop, Right Eye, Prior to | | PM PST | | | | | Incision, Starting Светлана 11/25/19 at | | | | | | | 1350, For 3 doses, Begin after | | | | | | | proparacaine. 1 drop every 10 | | | | | | | minutes for 3 doses. (May | | | | | | | alternate every 5 minutes with | | | | | | | phenylephrine) Remind patient to | | | | | | | keep eye closed after placing | | | | | | | each drop., Pre-op | | | | | | + +-------+ +--------+---+---+ +-------+ +--------+---+---+ | Given | 11/25/19 | 1 drop | | | | | 20 2:06 | | | | | | PM PST | | | | +-------+ +--------+---+---+ | Given | 11/25/19 | 1 drop | | | | | 20 2:01 | | | | | | PM PST | | | | +-------+ +--------+---+---+ +---+---+ | | | +---+---+ documented in this encounter
--- OUTSIDE RECORDS SUMMARY | ~2020-06-16 | XMS | Encounter Summary ---
Demographics + + + | Address | [address] | | | [place] [address] | + + + | Home Phone | | + + + | Preferred Language | Unknown | + + + | Marital Status | | + + + | Presybeterian Affiliation | Unknown | + + + | Race | White | + + + | Ethnic Group | Not or | + + + Author + + + | Author | [facility] | | | and [place] | + + + | Organization | [facility] | | | [...] [place], | | | | | [place] [address] | | + + + + + Care Team Providers + +------+ + | Care Prototype Sewer Name | Role | Phone | + [...] Osteomyeliti | MD [address] | | | | | s, | [address] | [place], | | | | | Rocephin,IV, | [place], | [place] [address] | | | | | or IM 2G | [place] | Phone: | | | | | daily X42 | [address] | [phone] | | | | | days | Phone: | Fax: | | | | | Procedures | [phone] | [phone] | | | | | [place] | Fax: | | | | | | CEFTRIAXONE | [phone] | | | | | | SODIUM | | | | | | | INJECTION, | | | | | | | 250 MG NC | | | | | | | [...] | +--------+ + + + + | 12/10/ | Hospital | [facility] | [place], | Chronic | | 2019 | Encounter | MED CTR OP INFUSION | MD [address] | osteomyelitis of toe | | | | [address] | [place] | of right foot (HCC) | | | | [place], [place] | [address] | | | | | [address] | [phone] | | | | | [phone] | | | +--------+ + + + [...] + + + | Blood Pressure | 117/56 | 12/10/2018 1:02 PM | | | | | PDT | | + + + + + | Pulse | 92 | 12/10/2018 1:02 PM | | | | | PDT | | + + + + + | Temperature | 36.4 C (97.5 F) | 12/10/2018 11:51 AM | | | | | PDT | | + + + + + | Respiratory Rate | 17 | 12/10/2018 11:51 AM | | | | | PDT | | + + + + + | Oxygen Saturation | 95% | 12/10/2018 1:02 PM | | | | | PDT [...] 0 | 11/29/19 | | | (LANTUS ALIZEOSTAR) | under the skin 2 | | [...] documented as of this encounter Progress Notes Ita Holbrook RN - 12/10/2018 1:05 PM PDT Vitals: 12/10/18 1151 12/10/18 1302 BP: 138/62 117/56 Pulse: 94 92 Resp: 17 Temp: 36.4 C (97.5 F) TempSrc: Oral SpO2: 97% 95% Administrations This Visit cefTRIAXone (ROCEPHIN) 2 g in sodium chloride 0.9% 50 mL IVPB Admin Date 12/10/2018 Action New Bag Dose 2 g Rate 100 mL/hr Route Intravenous Administered By Katiana Frankel RN Monitored throughout treatment; treatment completed without untoward effects from medicatio n noted next visit 12/11. Verbalizes understanding of plan of care. VS stable. Discharged amb ulatory to home in stable condition. Electronically signed by: Ita Holbrook RN 12/10/2018 13:34 Katiana Dewitt RN - 12/10/2018 11:56 AM PDT Vitals: 12/10/18 1151 BP: 138/62 Pulse: 94 Resp: 17 Temp: 36.4 C (97.5 F) Cecilio Arias received into room 440, independent ambulation accompanied by his S O. States here for Rocephin infusion. Reports no change in condition, plan of care since nancie thomas MD visit. Alert, oriented x 4, cooperative. Electronically signed by: Katiana Frankel RN 12/10/2018 11:56 documented in this enc ounter Plan of Treatment Not on filedocumented as [...] 2 g in | New Bag | 12/11/19 | 2 g | 100 | | | sodium chloride 0.9% 50 mL IVPB | | 19 12:03 | | mL/hr | | | 2 g, Intravenous, Administer over | | PM PDT | | | | | 30 Minutes, ONCE, Светлана 12/10/18 at | | | | | | | 1200, For 1 dose, Keep in | | [...]
--- OUTSIDE RECORDS SUMMARY | ~2020-06-16 | XMS | Encounter Summary ---
Demographics + + + | Address | [address] | | | [place] [address] | + + + | Home Phone | | + + + | Preferred Language | Unknown | + + + | Marital Status | | + + + | Caodaism Affiliation | Unknown | + + + | Race | White | + + + | Ethnic Group | Not or | + + + Author + + + | Author | [facility] | | | and [place] | + + + | Organization | [facility] | | | [...] [place], | | | | | [place] [address] | | + + + + + Care Team Providers + +------+ + | Care Catering Cook Name | Role | Phone | + +------+ + PCP | Unavailable | + +------+ + Reason for Visit + +--------+ + | Reason | Onset | Comments | | | Date | | + +--------+ + | Appointment Question | 02/06/ | | | | 2015 | | + +--------+ + Encounter Details +--------+ + + + + | Date | Type | Department | Care Team | Description | +--------+ + + + + | 02/06/ | Telephone | [facility] | Marty Wood | Appointment Question | | 2015 | | ORTHOPEDIC SURGERY | MD [place] [address] [facility] | | | | | [address] | [place] | | | | | [place] | [address] | | | | | [address] | | | | | | [phone] | | | +--------+ + + + [...] this encounter Miscellaneous Notes Telephone Encounter - Renata Durbin - 02/07/2016 1:55 PM PDTPatient called requesting a n appointment as soon as possible with Dr. Wood. Patient stated that his arm is doing poorly and would like to get in to the provider right away. Patient was offered an appointm ent for tomorrow 02/07/16 with Amadeo MACK but patient refused the appointment due to jaida dietrich in [facility]. Patient stated he is a sponsor and is unable to come back to [facility] for t he appt that was offered tomorrow. Patient was then offered an appointment for 02/15/16 but didn't accept. Patient stated that he has court that day and is unable to take that appoint ment. Patient then stated that he needs to be seen because his Left arm is bothering him and it is very painful. Patient was advised that his options are to come back to [facility] or an appointment that was offered or to go to an Emergency Facility/walk in clinic if unabl e to wait until appointment. Patient stated he doesn't want to go to an Emergency room or W alk in clinic because they will tell him to see the surgeon that performed the surgery or gi ve him pain medication. Patient stated that he doesn't want pain medication. Patient was the n offered an appointment on 02/29/16 with Amadeo MACK and patient refused that appointm ent as well. Patient then was offered an appt on 03/10/16 9:30am but patient refused that a ppointment due to wanting afternoon. Patient finally agreed to an appointment on 03/10/16 rebel Hines @ 3:30pm and patient was put on the wait list. Patient stated understanding.Electr onically signed by Renata Durbin at 02/07/2016 2:32 PM PDTdocumented in this encounter Plan of Treatment Not on filedocumented as of this encounter Visit Diagnoses Not on filedocumented in this encounter"
--- OUTSIDE RECORDS SUMMARY | ~2020-06-16 | XMS | Encounter Summary ---
Demographics + + + | Address | [address] | | | [place] [address] | + + + | Home Phone [...] + + + | Author | [facility] | | | and [place] | + + + | Organization | [facility] | | | [...] [place], | | | | | [place] [address] | | + + + + + Care Team Providers + +------+ + | Care Production Corrugator Name | Role | Phone | + [...] | | | | | | | [place] [facility] | | | | | | [...] | +--------+ + + + + | 03// | Anesthesia | DANNY DAWSON | Cliff Berrios, | | | 2019 | Event | MED CTR OR INTRA OP | [address] | | | | | [address] | [place] | | | | | [place] | [address] | | | | | [address] | | | | | | [phone] | | | +--------+ + + + + Anesthesia Record + + + + + | Procedure Name | Responsible | Anesthesia Start | Anesthesia Stop Time | | | Anesthesiologist | Time | | + + + + + | RIGHT EXTRACTION | Cliff Berrios MD | 11/25/19 1444 | 11/25/19 9049 | | CATARACT W/ LENS | | | | | IMPLANT (Right Eye) | | | | + + + + + +----+---+ + + | Da | T | Event | Comment | | te | i | | | | | m | | | | | e | | | +----+---+ + + | 03 | 1 | | | | /0 | 4 | | | | 5/ | 1 | | | | 20 | 5 | | | | 20 | | | | +----+---+ + + | | 1 | An Checkout | Pre-use anesthesia machine/equipment checkout. | | | 4 | | | | | 4 | | | | | 3 | | | +----+---+ + + | | 1 | An Start | Reassessment prior to anesthesia induction/procedure. | | | 4 | | | | | 4 | | | | | 4 | | | +----+---+ + + | | 1 | Preoxygenat | | | | 4 | ed | | | | 4 | | | | | 7 | | | +----+---+ + + | | 1 | An | | | | 4 | Induction | | | | 4 | | | | | 8 | | | +----+---+ + + | | 1 | An | | | | 4 | Intubation | | | | 4 | | | | | 9 | | | +----+---+ + + | | 1 | First | | | | 4 | Inc/Proc St | | | | 5 | | | | | 7 | | | +----+---+ + + | | 1 | AN Bite | | | | 5 | Block | | | | 0 | | | | | 9 | | | +----+---+ + + | | 1 | Breathing | | | | 5 | Spontaneous | | | | 0 | ly | | | | 9 | | | +----+---+ + + | | 1 | an stop | | | | 5 | data | | | | 1 | | | | | 5 | | | +----+---+ + + | | 1 | An Stop | Patient handed off to recovery nurse. | | | 1 | | | | | 9 | | | +----+---+ + + +------+ | Meds | +------+ + +---------+ | Name | Total | + +---------+ | fentaNYL | 50 mcg | + +---------+ | propofol | 200 mg | + +---------+ | lidocaine 2% | 100 mg | + +---------+ | dexamethasone | 10 mg | + +---------+ | ondansetron | 4 mg | + +---------+ | phenylephrine (BIORPHEN) | 350 mcg | | injection 0.1 mg/mL (5 mL ampule) | | + +---------+ | ePHEDrine (AKOVAZ) injection 50 | 15 mg | | mg/mL | | + +---------+ | LR (Infusion) | 550 mL | + +---------+ + + | Name | + + | N2O Flow Rate (L/Min) | + + | O2 Flow Rate (L/Min) | + + | Insp O2 | + + | Exp SEV | + + | Air Flow Rate (L/Min) | + + + + | No blood administrations on file. | + + +--------+ + + + | Type | Details | Placement | Removal | +--------+ + + + | Periph | 11/25/19; 1414; Right; Forearm; | 11/25/19 1414 by | 11/25/19 161 by | | eral | [id number] catheter system; | Flor Soto RN | Flor Soto RN | | IV | 20 gauge; distraction, | | | | | intradermal injection, tolerated | | | | | well, appears comfortable; no | | | | | longer indicated, removed per | | | | | policy/procedure, catheter/device | | | | | intact; short term use; | | | | | 11/25/19; 1614 | | | +--------+ + + + | Airway | Placement Date: 11/25/19; | 11/25/191448 by | 11/25/19 1523 by | | | Placement Time: 1448 (created via | Cliff Berrios MD | Alfonso aBhena RN | | | procedure documentation); Mask | | | | | Ventilation: EZ; Attempts: 1; | | | | | Airway Type: laryngeal mask; | | | | | Size: 5; Trauma: none; Placement | | | | | Check: exhaled CO2 detection | | | | | device; Removal: per protocol, | | | | | removed by CORNELL; Removal Date: | | | | | 11/25/19; Removal Time: 1523 | | | +--------+ + + + | Wound | 11/25/19; 1456; Incision; Right; | 11/25/19 1456 by | 11/25/19 161 by | | | eye; 11/25/19; 161 | Arielle Guidry RN | Flor Soto RN | +--------+ + + + documented in [...] + + documented as of this encounter Functional Status + + + [...] encounter OR Notes Anesthesia Postprocedure Evaluation - Cliff Berrios MD - 11/25/2019 5:43 PM PSTFormatti ng of this note might be different from the original. ANESTHESIA POSTANESTHESIA EVALUATION Cecilio Hillbuddy 49 y.o. male 1970 [id number] Procedure(s) RIGHT EXTRACTION CATARACT W/ LENS IMPLANT (Right Eye) Cooperates? Yes Mental Status Performs simple tasks. Respiratory Satisfactory - Airway patent (self maintained). Cardiovascular Satisfactory - Blood pressure and heart rate acceptable Temperature Satisfactory Pain Satisfactory N/V Control Satisfactory Hydration Satisfactory - No signs of dehydration Adverse Events ADVERSE EVENTS: No adverse events Vitals Value Taken Time Temp 36.4 C (97.5 F) 11/25/2019 3:18 PM Pulse 99 11/25/2019 4:05 PM Resp 16 11/25/2019 4:00 PM BP 115/70 11/25/2019 4:02 PM Arterial Line BP Arterial Line BP 2 SpO2 98 % 11/25/2019 4:05 PM Vitals shown include unvalidated device data. Electronically signed by Cliff Berrios MD 11/25/2019 5:43 PM [facility] Cliff Berrios MD at 01/2020 5:43 PM PSTAnesthesia Procedure Notes - Cliff Berrios MD - 11/25/2019 3:00 PM PS TAssociated Order(s): AirwayAnesthesia Airway Placement 11/25/2019 2:49 PM Preprocedure check: patient identified, suction, airway equipment checked, oxygen, airway a ssessed and patient reassessment prior to induction Rapid Sequence Induction: no Mask ventilation: easy Attempts: 1 Airway type: laryngeal mask Size: 5 Cuffed: cuffed Route, reference point: center of mouth Trauma: none Tube placement verification: carbon dioxide detection Performing provider: Cliff Berrios MD Authorizing provider: Cliff Berrios MD Please see intraoperative grid for any additional medication documentation. nesthesia Preprocedu re Evaluation - Cliff Berrios MD - 11/25/2019 1:29 PM PSTFormatting of this note might b e different from the original. ANESTHESIA PREANESTHESIA EVALUATION Cecilio Arias 49 y.o. male 1970 [id number] Procedure(s): RIGHT EXTRACTION CATARACT W/ OR W/O LENS IMPLANT (Right Eye) Medical,anesthesia, drug, allergy histories reviewed, NPO status verified. ECG reviewed. Labs reviewed. Review of Systems / Med History Anesthesia History (+) PONV. Cardiovascular Results for orders placed or performed during the hospital encounter of 08/11 -ECG 12 lead Result Value Ref Ra nge INTERPRETATION TEXT Sinus tachycardia Right bundle branch block Abnormal ECG When compared with ECG of 05-FEB-2018 15:12, No significant change was found Confirmed by JIM LI, YAZMIN ([id number]) on 11/02/2019 7:10:59 AM . Exercise tolerance >4 METS. Pulmonary (+) Chronic Obstructive Pulmonary Disease.(+) asthma.(+) tobacco use.(+) current smoker. Gastrointestinal/Hepatic (+) hypercholesterolemia. (+) acid reflux. Renal Lab Results Component Value Date CREA 3.04 (H) 11/02/2019 BUN 21 11/02/2019 NA 136 11/02/2019 K 4.1 11/02/2019 CL 94 (L) 11/02/2019 CO2 32 (H) 11/02/2019 . Endocrine (+) obesity: BMI (30-39) (+) Diabetes: type 2. Hematology/Other Lab Results Component Value Date WBC 16.9 (H) 11/02/2019 HGB 15.7 11/02/2019 HCT 46.6 11/02/2019 MCV 84.4 11/02/2019 PLT 274 11/02/2019 . Neuromuscular (+) arthritis, neuropathy. (+) seizures: Psychology (+) substance abuse, methamphetamines. (+) psychiatric history of anxiety. Physical Exam Airway MP II, TM >3 FB, Mouth opening >2 FB. Neck: full ROM, extends >30 degrees. Dental grossly normal except where noted below. (+) missing teeth. CV Rhythm regular. Rate Normal. (-) murmur. Pulm Clear to auscultation bilaterally. Neuro grossly normal. Anesthesia Plan ASA: 3 (NIDDM w/ End-organ Sequelae, Methamphetamine Use) Type: General. Induction: Local anesthesia. Potential problems: None anticipated. Monitors: Standard ASA monitors. Postop Pain Management: Consent statement: Anesthetic plan, alternatives, risks and benefits discussed with patient. pain, respiratory events, failed or inadequate block Consenting person understands and agrees to proceed. PARQ. MAC/TIVA with propofol and anxiolytics / opioids as needed / tolerated. Discussion distinc tly mentions that awareness is probable during the case, as Dr. Chu often wants the patie nt to respond to commands. Patient declines MAC. GA. Electronically Signed by: Cliff Berrios MD ESig date/time: 11/25/2019 1:29 PM documented in this en counter Miscellaneous Notes Addendum Note - Cliff Berrios MD - 02/17/2020 5:00 PM PDT Addendum created 02/17/20 1700 by Cliff Berrios MD Intraprocedure Meds edited nesthesia Post-op H andoff - Cliff Berrios MD - 11/25/2019 3:19 PM PSTFormatting of this note might be diffe rent from the original. ANESTHESIA HANDOFF NOTE Cecilio Figueroahank 49 y.o. male 1970 [id number] RIGHT EXTRACTION CATARACT W/ LENS IMPLANT (Right Eye) HANDOFF NOTE Handoff Protocol Used: post-procedure handoff checklist completed The following were completed during the transfer of care: 1. Identification of patient 2. Identification of responsible practitioner (primary service) 3. Discussion of pertinent medical history 4. Discussion of the surgical/procedure course (procedure, reason for surgery, procedure pe rformed) 5. Intraoperative anesthetic management and issues/concerns 6. Expectations/plans for the early post-procedure period 7. Opportunity for questions and acknowledgement of understanding of report from receiving team Patient Location: Phase I Condition: sedated Airway/O2: LMA with O2 Multimodal analgesia: multimodal analgesia used between 6 hours prior to anesthesia start t o PACU discharge Comments: Supplemental Oxygen used as necessary to maintain Oxygen Saturation at or above 9 2% The significant anesthesia concerns and VS in Epic were reviewed with the receiving team. Cliff Berrios MD 11/25/2019 3:19 PM [facility] Cliff Berrios MD at 01/2020 3:19 PM PSTdocumented in this encounter Plan of Treatment Not on filedocumented as of this encounter Procedures + +--------+ + + + | Procedure Name | Priori | Date/Time | Associated Diagnosis | Comments | | | ty | | | | + +--------+ + + + | ANE AIRWAY NOTE | Routin | 11/25/2019 | | Results for this | | | e | 3:00 PM | | procedure are in the | | | | PST | | results section. | + +--------+ + + + documented in this encounter Results Airway (11/25/2019 3:00 PM PST) + + + | Narrative | Performed At | + + + | Cliff Berriso MD 11/25/2019 3:00 PM Anesthesia Airway | | | Placement 11/25/2019 2:49 PM Preprocedure check: patient | | | identified, suction, airway equipment checked, oxygen, airway | | | assessed and patient reassessment prior to induction Rapid Sequence | | | Induction: no Mask ventilation: easy Attempts: 1 Airway type: | | | laryngeal mask Size: 5 Cuffed: cuffed Route, reference point: | | | center of mouth Trauma: none Tube placement verification: carbon | | | dioxide detection Performing provider: Cliff Berrios MD | | | Authorizing provider: Cliff Berrios MD Please see | | | intraoperative grid for any additional medication documentation. | | + + + documented in this encounter Visit Diagnoses Not on filedocumented in this encounter Administered Medications + +--------+ +-------+------+------+ | Medication Order | MAR | Action | Dose | Rate | Site | | | Action | Date | | | | + +--------+ +-------+------+------+ | dexamethasone (PF) 10 mg/mL | Given | 11/25/19 | 10 mg | | | | injection Intravenous, PRN, | | 20 2:48 | | | | | Starting Светлана 11/25/19 at 1448, | | PM PST | | | | | Anesthesia Intra-op | | | | | | + +--------+ +-------+------+------+ +---+---+ | | | +---+---+ + +-------+ +-------+---+---+ | ePHEDrine (AKOVAZ) 50 mg/mL | Given | 11/25/19 | 15 mg | | | | injection Intravenous, PRN, | | 20 3:01 | | | | | Starting [facility] 11/25/19 at 1501, | | PM PST | | | | | Anesthesia Intra-op | | | | | | + +-------+ +-------+---+---+ +---+---+ | | | +---+---+ + +-------+ +--------+---+---+ | fentaNYL (PF) injection | Given | 03/05/20 | 50 mcg | | | | Intravenous, PRN, Starting Светлана | | 20 2:48 | | | | | 11/25/19 at 1448, Anesthesia | | PM PST | | | | | Intra-op | | | | | | + +-------+ +--------+---+---+ +---+---+ | | | +---+---+ + +---------+ +---+---+---+ | lactated ringers (LR) infusion | New Bag | 11/25/19 | | | | | Intravenous, CONTINUOUS PRN, | | 20 2:39 | | | | | Starting Светлана 11/25/19 at 1439, | | PM PST | | | | | Anesthesia Intra-op | | | | | | + +---------+ +---+---+---+ +---+---+ | | | +---+---+ + +-------+ +--------+---+---+ | lidocaine (PF) 2% injection | Given | 11/25/19 | 100 mg | | | | Intravenous, PRN, Starting Светлана | | 20 2:48 | | | | | 11/25/19 at 1448, Anesthesia | | PM PST | | | | | Intra-op | | | | | | + +-------+ +--------+---+---+ +---+---+ | | | +---+---+ + +-------+ +------+---+---+ | ondansetron (ZOFRAN) injection | Given | 11/25/19 | 4 mg | | | | PRN, Starting Светлана 11/25/19 at | | 20 2:48 | | | | | 1448, Anesthesia Intra-op | | PM PST | | | | + +-------+ +------+---+---+ +---+---+ | | | +---+---+ + +-------+ +---------+---+---+ | phenylephrine (BIORPHEN) 0.1 | Given | 11/25/19 | 150 mcg | | | | mg/mL injection PRN, Starting | | 20 2:59 | | | | | Светлана 11/25/19 at 1456, Anesthesia | | PM PST | | | | | Intra-op | | | | | | + +-------+ +---------+---+---+ +-------+ +---------+---+---+ | Given | 11/25/19 | 100 mcg | | | | | 20 2:56 | | | | | | PM PST | | | | +-------+ +---------+---+---+ | Given | 11/25/19 | 100 mcg | | | | | 20 2:54 | | | | | | PM PST | | | | +-------+ +---------+---+---+ +---+---+ | | | +---+---+ + +-------+ +--------+---+---+ | propofol (DIPRIVAN) injection | Given | 11/25/19 | 200 mg | | | | Intravenous, PRN, Starting Светлана | | 20 2:48 | | | | | 11/25/19 at 1448, Anesthesia | | PM PST | | | | | Intra-op | | | | | | + +-------+ +--------+---+---+ +---+---+ | | | +---+---+ documented in this encounter"
--- OUTSIDE RECORDS SUMMARY | ~2020-06-16 | XMS | Encounter Summary ---
Demographics + + + | Address | [address] | | | [place] [address] | + + + | Home Phone | | + + + | Preferred Language | Unknown | + + + | Marital Status | | + + + | Voodoo Affiliation | Unknown | + + + | Race | White | + + + | Ethnic Group | Not or | + + + Author + + + | Author | [facility] | | | and [place] | + + + | Organization | [facility] | | | and [...] [place], | | | | | [place] [address] | | + + + + + Care Team Providers + +------+ + | Care Electrophonic Engineer Name | Role | Phone | + +------+ + PCP | Unavailable | + +------+ + Encounter Details +--------+ + + + + | Date | Type | Department | Care Team | Description | +--------+ + + + + | 04/01/ | Orders Only | [facility] | Amadeo Saab | Left elbow pain | | 2015 | | ORTHOPEDIC SURGERY | [address] | (Primary Dx); | | | | [address] [place] | [address] [place] | Limitation of joint | | | | [place], [place] | [place] [address] | motion of left elbow | | | | [address] | [phone] | | | | | [phone] | | | +--------+ + + + [...] joint, upper arm | + + | Limitation of joint motion of left elbow | + + documented in this encounter"
--- OUTSIDE RECORDS SUMMARY | ~2020-06-16 | XMS | Encounter Summary ---
Demographics + + + | Address | [address] | | | [place] [address] | + + + | Home Phone | | + + + | Preferred Language | Unknown | + + + | Marital Status | | + + + | Episcopal Affiliation | Unknown | + + + | Race | White | + + + | Ethnic Group | Not or | + + + Author + + + | Author | [facility] | | | and [place] | + + + | Organization | [facility] | | | and [...] [place], | | | | | [place] [address] | | + + + + + Care Team Providers + +------+ + | Care Circuit Designer Name | Role | Phone | + +------+ + PCP | Unavailable | + +------+ + Reason for Visit + + + | Reason | Comments | + + + | Initial Assessment | | + + + Evaluate & Treat (Emergency) +--------+ + + + + + | Status | Reason | Specialty | Diagnoses / | Referred By | Referred To | | | | | Procedures | Contact | Contact | +--------+ + + + + + | Closed | Specialty | Rehabilitatio | Diagnoses | Katiana, | [facility] | | | Services | n | Left elbow | Amadeo | Oncology | | | Required | | pain | MAHENDRA Oglesby | Therapy [address] | | | | | Decreased | [address] | | | | | ROM of left | [address] [place] | [place], | | | | | elbow | [place], [place] | [place] [address] | | | | | Procedures | [address] | Phone: | | | | | ot eval | Phone: | [phone] | | | | | | [phone] | Fax: | | | | | | Fax: | [phone] | | | | | | [phone] | | +--------+ + + + + + Encounter Details +--------+---------+ + + + | Date | Type | Department | Care Team | Description | +--------+---------+ + + + | 03/12/ | Office | [facility] | Amadeo Saab | Left arm pain | | 2016 | Visit | MED CNT ONCOLOGY | MAHENDRA [address] | (Primary Dx); | | | | THERAPY [address] [place] | Decreased activities | | | | [address] [place], | [place] [address] | of daily living | | | | [place] [address] | [phone] | (ADL); Lateral | | | | [phone] | | epicondylitis of | | | | | Seth Oneill OTR/Gosia | left elbow | | | | | [address] | | | | | | [place] [address] | | | | | | [phone] | | | | | | | [...] documented as of this encounter Progress Notes Seth Oneill, OT - 03/12/2016 12:34 PM PDT Occupational Therapy Plan of Care Date: 03/12/2016 Patient Name: Cecilio Arias Date of : 1970 Encounter Diagnoses Code Name Primary? M79.602 Left arm pain Yes Z78.9 Decreased activities of daily living (ADL) M77.12 Lateral epicondylitis of left elbow Date of Onset: 11/15/2015 Start of Care Date: 03/12/2016 Clinical Impression: Patient presents to occupational therapy with left arm pain. Objective exam reveals impairments with shoulder ROM, elbow ROM, strength, pain. These impairments an d diagnosis are causing functional limitations with patient s inability to perform activit ies involving non-dominant left arm affecting participation in the following activities ADLs , work duties, recreational activities, playing with children. Signs and symptoms are consis tent with multiple trauma to left arm, elbow, and wrist, surgical repair of left lateral epi condylitis. Complexities contributing to frequency and duration of therapy: cervical injury s/p 15 years, trauma to left arm, heavy opioid use dependence. Goals: Outcome Specific Scored Goals Patient's Primary Functional Goal 1: Decrease pain from 8/10 to 3/10 at worst to improve ab ility to sleep, work, use arm as non-dominant assist Patient's Primary Functional Goal 2: Independent home exercise program to facilitate indepe ndent symptom management. Patient's Primary Functional Goal 3: Reduce QuickDash disability score from 75 to 25 or les s indicating improved ADL function and mobility. OP OT Goals OP OT Goals: Goal 1 Goal 1: Return to prior work/leisure activities including shovel, play basketball, ride bik e, picking up kids without limitation from pain, range of motion or strength. Requested # of Visits: 16 visits 2x/week for 8 weeks Certification From: 03/12/2016 Certification To: 05/07/2016 Treatment Plan/Interventions 73744 - OT [id number] - Therapeutic Fhafqvmg24465 - Therapeutic Qmelyugjxw17344 - Self Care/Home Zfwubcwvzv76106 - Manual Fzvibio38366 - Djhvedbapm49052 - Sdrxiipfkgdja45946 - Luigi montenegro BathSplinting Patient and/or family has indicated understanding of treatment needs and actively participa naina in the creation of this plan for care. Electronically signed by: Seth Oneill OT, 03/12/2016 12:34 Patient Name: Cecilio Arias/: 1970/ Seth Flores OT - 03/12/2016 11:59 AM PDT [facility] OT OP [address] [place] [address] Occupational Therapy Initial Assessment Date: 03/12/2016 Patient Information Patient Name: Cecilio Arias Date of : 1970 Age: 45 y.o. History Problem Left Arm Pain Decreased Activities of Daily Living (Adl) Lateral Epicondylitis of Left Elbow Mechanism of injury: Trauma History of symptoms: Pt slipped on hydraulic fluid at store, slipped, landed on arms with r earward fall Previous level of function and limitations: independent in ADLs Work status:Off work Living situation: Pt lives and 8 y.o. step-daughter in 1 level home History Social History Marital Status: Single Spouse Name: N/A Number of Children: N/A Years of Education: N/A Social History Main Topics Smoking status: Current Every Day Smoker -- 0.50 packs/day Types: Cigarettes, E-Cigarettes Last Attempt to Quit: 08/18/2014 Smokeless tobacco: Never Used Alcohol Use: No Drug Use: Yes Special: Marijuana Sexual Activity: Not on file Other Topics Concern None Social History Narrative Encounter Diagnoses Code Name Primary? M79.602 Left arm pain Yes Z78.9 Decreased activities of daily living (ADL) M77.12 Lateral epicondylitis of left elbow Date of Onset: 11/15/2015 Referring Provider: Amadeo Saab PA-C No history on file. 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 Seizure (HCC) Past Surgical History Procedure Laterality Date Knee arthroscopy Right 12/05/2014 Procedure: Right Knee Arthroscopy with Partial Medial Menisectomy and Medial- Femoral Cho ndroplasty; Surgeon: Marty Wood MD; Location: [facility] MAIN OR Spinal cord injury Elbow surgery Left 11/15/2015 Procedure: Left Lateral Epicondylar Release & Injection of Left Elbow Joint ; Surgeon: Hubert Wood MD; Location: [facility] MAIN OR History reviewed. No pertinent family history. Allergies Allergen Reactions Azithromycin Anaphylaxis Codeine Hives Hydrocodone Hives Sulfa Antibiotics Hives Prior Treatment: None within the last sixty days Rehab Precautions Office Visit from 03/12/2016 in [facility] OT OP Rehab Precautions Precautions Seizure, Poorly controlled/fluctuating blood sugar Learning Style Patient's Optimum Learning Style: performance of task Abuse Assessment Do you feel safe in your current relationship or home?: Yes Fall Risk: Fall Risk 2 or more falls in the past year?: Yes Number of times fallen in last month: 3 Number of time fallen in past year: 10 If any, what caused your falls?: seizures Were you injured by your fall(s)?: No Were you treated by a doctor?: Yes Patient has Vision Problems (glaucoma, cataracts):: No Takes medication for sleep, anxiety or seizure:: No Rushes to use the bathroom or has history of incontinence:: No Fall Risk Tests (Only need to perform one test listed below) Recommendations: : No further Fall Risk Assessment necessary Pain Assessment: Pain Scale Used: NUMERIC Pain Rating Pre Assessment: 8 Location: elbow and shoulder pain EVALUATION: SUBJECTIVE: History of Presenting Problem: Jaredscout Elsie Arias is a 45 y.o. righ t handed male who presents to therapy with left elbow and arm pain Functional Limitations: pt reports able to perform all activities, though hurts afterwards Precaution/special problems: pt reports some light seizures, occasional diabetic sugar spik es Patient s Goals: Get use of arm back OBJECTIVE: Observation/Posture/Alignment: no concerns. Pt will mobilize arm after several seconds for repositioning ROM: UE: Initial Eval Initial Eval PN/DC PN/DC Measured in degrees Right Left Right Left Wrist flex, extend 0-65, 0-65 0-20, 0-55 Elbow 180 0-160 Shoulder WNL (possible bursitis) WNL, rotator cuff tear STRENGTH: UE: Initial Eval Initial Eval PN/DC PN/DC Measured in lbs Right Left Right Left Gross Electrocardiograph Repairer 130, 130, 115 100, 84, 90 Ryan Pinch 23, 15, 23 15, 15, 18 Palpation: Heat and tightness to muscles of LUE from shoulder at biceps origins extending down to flexors and extensors of wrists. SENSATION: Pt reports ache, straining pain with shooting pain from forearm to shoulder Patient was tested with the QuickDASH. With a score of 75. Standardized Tests: QuickDASH (QD) Open a tight or new jar: 3 - Moderate Difficulty Do heavy colorer machine: 3 - Moderate Difficulty Carry a shopping bag or briefcase: 4 - Severe Difficulty Wash your back: 4 - Severe Difficulty Use a Knife to cut food: 5 - Unable Recreational Activities which impact the UE: 4 - Severe Difficulty Interfered with Social Activities: 4 - Quite a bit Limit Work or Regular Daily Activities: 4 - Very Limited Arm, shoulder or hand pain: 4 - Severe Tingling in arm, shoulder or hand: 4 - Severe Difficulty Sleeping due to pain in UE: 5 - So Much Difficulty that I cannot sleep QuickDASH Mean Score (Calculated): 4 QuickDASH Disability/Symptom Score (Calculated): 75 ASSESSMENT: Patient presents to occupational therapy with left arm pain. Objective exam reveals impair ments with shoulder ROM, elbow ROM, strength, pain. These impairments and diagnosis are caus ing functional limitations with patient s inability to perform activities involving non-do minant left arm affecting participation in the following activities ADLs, work duties, recre ational activities, playing with children. Signs and symptoms are consistent with multiple t rauma to left arm, elbow, and wrist, surgical repair of left lateral epicondylitis. Complex ities contributing to frequency and duration of therapy: cervical injury s/p 15 years, traum a to left arm, heavy opioid use dependence. Rehabilitation potential: Patient demonstrates good potential to achieve established goals to address the documented impairments by participating in skilled occupational therapy serv ices. Goals: Outcome Specific Scored Goals Patient's Primary Functional Goal 1: Decrease pain from 8/10 to 3/10 at worst to improve ab ility to sleep, work, use arm as non-dominant assist Patient's Primary Functional Goal 2: Independent home exercise program to facilitate indepe ndent symptom management. Patient's Primary Functional Goal 3: Reduce QuickDash disability score from 75 to 25 or les s indicating improved ADL function and mobility. OP OT Goals OP OT Goals: Goal 1 Goal 1: Return to prior work/leisure activities including shovel, play basketball, ride bik e, picking up kids without limitation from pain, range of motion or strength. Plan Date of Onset: 11/15/2015 Start of Care Date: 03/12/2016 Requested # of Visits: 16 visits 2x/week for 8 weeks Certification From: 03/12/2016 Certification To: 05/07/2016 Treatment Plan/Interventions 24515 - OT Dvclgdxnyq34341 - Therapeutic Lfknwncm81730 - Therapeutic Txgpeykwpu01935 - Self Care/Home Ldssdnyizn61941 - Manual Zwrckzl46682 - Fwypkvgnjd18627 - Lmbfdalwsnflh16644 - Pa moni BathSplinting Patient and/or family has indicated understanding of treatment needs and actively participa naina in the creation of this plan for care. Today's Treatment Start Time: 1145 Stop time: 1230 Duration: 45 minutes Timed Treatment Codes: 15 minutes # of OT Visits: 1 Objective: Education of rehab timeline, focus and expectations. Tissue mobs to left arm in evaluation, mini-massager vibrator to lateral epicondyle region Next Visit: Tissue mobs, TPR, MFR, pain reduction, lateral splint, monitor response to vibr ator pt will be purchasing for home use. Modalities as needed. Electronically signed by: Seth Oneill OT, 03/12/2016 12:33 Patient Name: Cecilio Zimmerman Juana/: 1970/ documented in this enc ounter Plan of Treatment + + +--------+ + + | Name | Type | Priori | Associated Diagnoses | Order Schedule | | | | ty | | | + + +--------+ + + | * [facility] | Outpatient | STAT | Left elbow pain | Ordered: 03/05/2016 | | Therapy - AMB | Referral | | Decreased ROM of | | | Referral | | | left elbow | | + + +--------+ + + [...]
--- OUTSIDE RECORDS SUMMARY | ~2020-06-16 | XMS | Encounter Summary ---
Demographics + + + | Address | [address] | | | [place] [address] | + + + | Home Phone | | + + + | Preferred Language | Unknown | + + + | Marital Status | | + + + | Bahai Affiliation | Unknown | + + + | Race | White | + + + | Ethnic Group | Not or | + + + Author + + + | Author | [facility] | | | and [place] | + + + | Organization | [facility] | | | [...] [place], | | | | | [place] [address] | | + + + + + Care Team Providers + +------+ + | Care Rack Puller Name | Role | Phone | + [...] Osteomyeliti | MD [address] | | | | | s, | [address] | [place], | | | | | [place], | [place], | [place] [address] | | | | | or IM 2G | [place] | Phone: | | | | | daily X42 | [address] | [phone] | | | | | days | Phone: | Fax: | | | | | Procedures | [phone] | [phone] | | | | | [place] | Fax: | | | | | | CEFTRIAXONE | [phone] | | | | | | SODIUM | | | | | | | INJECTION, | | | | | | | 250 MG [place] | | | | | | | [...] | +--------+ + + + + | 12/01/ | Hospital | [facility] | [place], | No Show | | 2019 | Encounter | MED CTR OP INFUSION | [address] | | | | | [address] | [place] | | | | | [place] | [address] | | | | | [address] | [phone] | | | | | [phone] | | | +--------+ + + + [...]
--- OUTSIDE RECORDS SUMMARY | ~2020-06-16 | XMS | Encounter Summary ---
Demographics + + + | Address | [address] | | | [place] [address] | + + + | Home Phone | | + + + | Preferred Language | Unknown | + + + | Marital Status | | + + + | Cheondoism Affiliation | Unknown | + + + [...] [place], | | | | | [place] [address] | | + + + + + Care Team Providers + +------+ + | Care Speech Language Therapist Name | Role | Phone | + [...] | +--------+ + + + + | 11/24/ | Hospital | [facility] | Ruslan Chu | | | 2019 | Encounter | MED CTR OR INTRA OP | MD [address] | | | | | [address] | [place] | | | | | [place], [place] | [place], [place] [address] | | | | | [address] | [phone] | | | | | [phone] | | | +--------+ + + + [...] symptoms, immediately call your eye doctor or [facility] at (dial "9" after hours or on [...] You can't be awakened Date Last Reviewed: 07/09/201619991783-1601 [employer]. [address] [place] [address], [place] [address]. All righ ts reserved. 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), right eye Post-op Diagnosis: same Procedure: Cataract extraction by phacoemulsification with intraocular lens implant using t rypan blue and Malyugin ring, right eye (36598) Implant: Musa PCB00 21.0 D, SN [id number] Surgeon: Ruslan Chu MD Anesthesia: General Technique/Procedure Description: After the patient's eye prepped and draped in the usual [facility] ophthalmic manner, a lid speculum was placed [...] | | | POC | | | [facility] | | [...] [address] | [place] | [phone] | | [facility] | | [address] | | | - LABORATORY | | | | + + + + + documented in this encounter Visit Diagnoses + + | Diagnosis | + + | Diabetes mellitus type II, ORAL Control Type II or unspecified type diabetes mellitus | | without mention of complication, not stated as uncontrolled | + + | GERD (gastroesophageal reflux disease) Esophageal reflux | + + | Smoker - Daily Tobacco use disorder | + + | Right bundle branch block | + + documented in this encounter [...] PST | | | | +-------+ +--------+---+---+ + +---+ | | | + +---+ [...]
--- OUTSIDE RECORDS SUMMARY | ~2020-06-16 | XMS | Encounter Summary ---
Demographics + + + | Address | [address] | | | [place] [address] | + + + | Home Phone | | + + + | Preferred Language | Unknown | + + + | Marital Status | | + + + | Anabaptism Affiliation | Unknown | + + + [...] [place], | | | | | [place] [address] | | + + + + + Care Team Providers + +------+ + | Care Computer Science Teacher Name | Role | Phone | + +------+ + | Russell Sanabria MD | PCP | | + +------+ + Reason for Visit + + + | Reason | Comments | + + + | Foot Wound | Room 7: right foot wound not healing; foot more swollen and | | | painful | + + + Encounter Details +--------+---------+ + + + | Date | Type | Department | Care Team | Description | +--------+---------+ + + + | 12/07/ | Office | [facility] | Jose Wood | Cellulitis of right | | 2019 | Visit | CARE [address] | [address] | leg (Primary Dx) | | | | [place] | [address] | | | | | [address] | [place] [address] | | | | | [phone] | [phone] | | | | | | | [...] + + + | Blood Pressure | 120/62 | 12/07/2018 1:27 PM | | | | | PDT | | + + + + + | Pulse | 104 | 12/07/2018 1:27 PM | | | | | PDT | | + + + + + | Temperature | 37.2 C (98.9 F) | 12/07/2018 1:27 PM | | | | | PDT | | + + + + + | Respiratory Rate | 18 | 12/07/2018 1:27 PM | | | | | PDT | | + + + + + | Oxygen Saturation | 95% | 12/07/2018 1:27 PM | | | | | PDT | | + + + + + | Inhaled Oxygen | - | - | | | Concentration | | | | + + + + + | Weight | 105.2 kg (231 lb | 12/07/2018 1:27 PM | | | | 14.8 oz) | PDT | | + + + + + | Height | 182.9 cm (6') | 12/07/2018 1:27 PM | | | | | PDT | | + + + + + | Body Mass Index | 31.45 | 12/07/2018 1:27 PM | | | | | [...] + + documented as of this encounter Patient Instructions Patient Instructions Jose Wood ARNP - 12/07/2018 1:00 PM PDTGo to the ER f or further evaluation and treatment documented in this encounter Progress Notes Jose Wood ARNP - 12/07/2018 1:00 PM PDTFormatting of this note might be di fferent from the original. Subjective: Minor is a 48 y.o. male who comes in complaining of Foot Wound (Room 7: right foot wound no t healing; foot more swollen and painful) . Foot Pain This is a chronic problem. Episode onset: was dx with osteomylitis in July. Has been re ceiving IV antibiotic and oral abx since that time. The problem has been rapidly worsening (reports having swelling, redness and pain in the right foot, ankle and lower leg area). As sociated symptoms include a fever, joint swelling and myalgias. Pertinent negatives include no abdominal pain, chest pain, chills, coughing, nausea or vomiting. The symptoms are aggrav ated by walking and standing. Patient's medications, allergies, past medical, surgical, social and family histories were reviewed and updated as appropriate. Review of Systems Constitutional: Positive for fever. Negative for chills. Respiratory: Negative for cough and shortness of breath. Cardiovascular: Negative for chest pain. Gastrointestinal: Negative for abdominal pain, nausea and vomiting. Musculoskeletal: Positive for joint pain, joint swelling and myalgias. Skin: Redness and swelling in the right foot, ankle and lower leg Neurological: Positive for sensory change (reports decreased feeling in the toes). All other systems reviewed and are negative. Objective: BP 120/62 | Pulse 104 | Temp 37.2 C (98.9 F) (Temporal) | Resp 18 | Ht 1.829 m (6') | Wt 105.2 kg (231 lb 14.8 oz) | SpO2 95% | BMI 31.45 kg/m Physical Exam Constitutional: He is oriented to person, place, and time. He appears well-developed and we ll-nourished. He appears distressed. HENT: Head: Normocephalic. Pulmonary/Chest: Effort normal. Musculoskeletal: Legs: Neurological: He is alert and oriented to person, place, and time. Skin: Skin is warm and dry. Capillary refill takes less than 2 seconds. He is not diaphoret ic. Nursing note and vitals reviewed. No results found for this or any previous visit (from the past 24 hour(s)). Assessment and Plans: 1. Cellulitis of right leg Referred to the ER for further treatment Spoke with Dr. Junior, he agreed to accept the patient. Return if symptoms worsen or fail to improve. Electronically signed by SULLY Monson at DATE/TIME: 12/07/2018 14:22 This note was dictated using Glass voice recognition software. Occasional wrong- word or s ound-alike substitutions may have occurred due to the inherent limitations of [employer] software. Please read the chart carefully and recognize, using context, where these subs titutions have occurred. documented in this encounter Plan of Treatment Not on filedocumented as of this encounter Visit Diagnoses + + | Diagnosis | + + | Cellulitis of right leg - Primary Cellulitis and abscess of leg, except foot | + + documented in this encounter"
--- OUTSIDE RECORDS SUMMARY | ~2020-06-16 | XMS | Encounter Summary ---
Demographics + + + | Address | [address] | | | [place] [address] | + + + | Home Phone [...] + + + | Author | [facility] | | | and [place] | + + + | Organization | [facility] | | | and [...] [place], | | | | | [place] [address] | | + + + + + Care Team Providers + +------+ + | Care Plasma Cutting Machine Operator Name | Role | Phone | + +------+ + PCP | Unavailable | + +------+ + Reason for Visit + +--------+ + | Reason | Onset | Comments | | | Date | | + +--------+ + | Medication Problem | 12/07/ | | | | 2014 | | + +--------+ + Encounter Details +--------+ + + + + | Date | Type | Department | Care Team | Description | +--------+ + + + + | 12/07/ | Telephone | [facility] | Marty Wood | Medication Problem | | 2014 | | ORTHOPEDIC SURGERY | MD [place] [address] | | | | | [address] [place] | [place] | | | | | [place] | [address] | | | | | [address] | | | | | | [phone] | | | +--------+ + + + [...] this encounter Miscellaneous Notes Telephone Encounter - Ree Do - 12/08/2014 11:15 AM PDTValerie Valencia OB [id number] LIC # [id number] exp 02/04/2021 picked up script. elephone Encounter - Selene Ellison - 12/08/2014 9:34 AM PDTPatient was notified his Rx his Rx is ready for pickling drum operator with valid Id. Patient stated his significant other Tasha will pickling drum operator rx with valid Id. elephone Encounter - Claudia Gray [employer] - 12/08/2014 9:11 AM PDTPlease call patient and notify Rx is ready for pickling drum operator (needs to bring photo ID) Please make sure to document the person's full name as it appears on the photo ID as well a s and Licence/ID number. elephone Encounter - Claudia Gray Master of [employer] - 12/07/2014 9:[address] Sushila hawkins elephone Encounter - Selene Ellison - 12/07/2014 8:23 AM PDTPatients significant other called stati ng the patients medication is not helping for the pain and would like to know if there is an ything else he can take for the pain. Patient can be reached at [phone] signed by Selene Ellison at 12/07/2014 8:24 AM PDTdocumented in this encounter Plan of Treatment Not on filedocumented as of this encounter Visit Diagnoses Not on filedocumented in this encounter"
--- OUTSIDE RECORDS SUMMARY | ~2020-06-16 | XMS | Encounter Summary ---
Demographics + + + | Address | [address] | | | [place] [address] | + + + | Home Phone | | + + + | Preferred Language | Unknown | + + + | Marital Status | | + + + | Jainism Affiliation | Unknown | + + + | Race | White | + + + | Ethnic Group | Not or | + + + Author + + + | Author | [facility] | | | and [place] | + + + | Organization | [facility] | | | and [...] [place], | | | | | [place] [address] | | + + + + + Care Team Providers + +------+ + | Care Primary Care Physician Name | Role | Phone | + +------+ + | No, Physician | PCP | Unavailable | + +------+ + Reason for Referral Treatment/Therapy Plan (Routine) +--------+ + + + + + | Status | Reason | Specialty | Diagnoses / | Referred By | Referred To | | | | | Procedures | Contact | Contact | +--------+ + + + + + | Closed | Specialty | Infusion | Diagnoses | Rad[facility], | [facility] | | | Services | Therapy | Acute | Alexander Flower MD | Infusion [address] | | | Required | | osteomyeliti | [address] | | | | | s of toe of | [address] | [place], | | | | | right foot | [place], | [place] [address] | | | | | ([facility]) | [place] | Phone: | | | | | | [address] | [phone] | | | | | | Phone: | Fax: | | | | | | [phone] | [phone] | | | | | | Fax: | | | | | | | [phone] | | +--------+ + + + + + Encounter Details +--------+ + + + + | Date | Type | Department | Care Team | Description | +--------+ + + + + | 08/06/ | Emergency | [facility] | No, Physician p | Patient left without | | 2018 | [facility] | being seen (Primary | | | | CENTER [address] | | Dx); Acute | | | | [place] | | osteomyelitis of toe | | | | [address] | | of right foot (HCC) | | | | [phone] | | | +--------+ + + + [...] HFA 108 | | | 0 | / | | | (90 Base) MCG/ACT | [...] +---------+ + + | | take 1 tablet by | | 0 | 11/18/19 | | | amphetamine-dextroam | mouth every morning | | | 18 | 8 | | phetamine (ADDERALL) | and 09/23 tablet at | | | | | | 20 mg tablet | noon | | | | | + + + +---------+ + + | aspirin 325 mg | Take 1 tablet by | 30 | 0 | 02/12/20 | | | tablet | mouth Daily. | tablet | | 18 | 9 | + + + +---------+ + + | B-D 3CKerline MENON | use to INJECT | | 0 | 07/09/20 | | | SYR [id number] [id number] X | TESTOSTERONE TWICE A | | | 17 | 9 | | 1-09/23" 3 ML MISC | WEEK | | | | | + + + +---------+ + + | B-D 3CC LUER-ANDREAS | | | 0 | 11/18/19 | | | SYR [id number]/ [id number] X | | | | 18 | 8 | | 1-09/23" 3 ML MISC | | | | | | + + + +---------+ + + | cholecalciferol | Take 1 capsule by | 90 | 3 | 07/14/20 | | | (VITAMIN D-3) 1,000 | mouth Daily. | capsule | | 15 | 9 | | units capsule | | | | | | + + + +---------+ + + | clomiPHENE | take 1/2 tablet by | | 0 | 01/03/20 | | | (CLOMID) 50 MG | mouth once daily | | | 18 | 9 | | tablet | FRIDAY THROUGH | | | | | | | FRIDAY. STOP T... | | | | | | | (REFER TO | | | | | | | PRESCRIPTION NOTES). | | | | | + + + +---------+ + + | dapagliflozin | Take 1 tablet by | 30 | 1 | 04/07/20 | | | (FARXIGA) 10 mg | mouth Daily. | tablet | | 17 | 9 | | tablet | | | | | | + + + +---------+ + + | ergocalciferol | take 1 capsule by | | 0 | 07/08/20 | | | (VITAMIN D-2) 50,000 | mouth weekly--on | | | 17 | 9 | | units capsule | [...] + | methadone 10 mg | Take 60 mg by mouth | | 0 | | | | tablet | 2 times daily. | | | | 9 | + + + +---------+ + + | methadone 10 mg | Take 0.5 tablets by | 45 | 0 | 07/14/20 | | | tablet | mouth every 8 hours | tablet | | 15 | 8 | | | as needed. | | | | | + + + +---------+ + + | NARCAN 4 MG/0.1ML | | | 0 | 11/18/19 | | | | | | | 18 | 8 | + + + +---------+ [...] + + + +---------+ + + | rosuvastatin | | | 0 | 07/04/20 | | | (CRESTOR) 40 MG | | | | 17 | 8 | | tablet | | [...] of this encounter Plan of Treatment + +------+--------+ + + | Name | Type | Priori | Associated Diagnoses | Date/Time | | | | ty | | | + +------+--------+ + + | ED INFORMATION | [facility] | Routin | | 08/06/2018 4:04 PM | | EXCHANGE | | e | | PST | + +------+--------+ + + + + +--------+ + + | Name | Type | Priori | Associated Diagnoses | Order Schedule | | | | ty | | | + + +--------+ + + | AMB REFERRAL TO [facility] | Outpatient | Routin | Acute | Ordered: 08/10/2018 | | OP INFUSION | Referral | e | osteomyelitis of toe | | | | | | of right foot (HCC) | | + + +--------+ + + documented as of this encounter Procedures + +--------+ + + + | Procedure Name | Priori | Date/Time | Associated Diagnosis | Comments | | | ty | | | | + +--------+ + + + | ED INFORMATION | Routin | 08/06/2018 | | | | EXCHANGE | e | 4:04 PM | | | | | | PST | | | + +--------+ + + + +---+--------+ | | | | | Proced | | | ure | | | Note - | | | Gloria, | | | Lab In | | | | | | Hlseve | | | n - | | | 11/15/ | | | 2018 | | | 4:05 | | | PM PST | | | | | | Format | | | ting | | | of | | | this | | | note | | | might | | | be | | | differ | | | ent | | | from | | | the | | | origin | | | al.GLORIA | | | E?NOTI | | | FICATI | | | ON?11/ | | | 15/201 | | | 8 | | | 16:01? | | | AVLONI | | | TIS, | | | DENIS | | | OPHER | | | S?MRN: | | | | | | [id number] | | | [id number] | | | his | | | patien | | | [...] | | | //secu | | | re.gloria | | | ecarep | | | joseph.co | | | m/biju | | | ent/17 | | | [id number] | | | -[id number] | | | [id number] | | | [id number] | | | [id number] | | | [id number] | | | Securi | | | ty | | | Events | | | No | | | [...] | | | will | | | in | | | SHITAL | | | for | | | this | | | patien | | | t. | | | Please | | | check | | | your | | | facili | | | ty's | | | medica | | | l | | | record | | | s | | | system | | | .Recen | | | t | | | Emerge | | | ncy | | | Depart | | | ment | | | Visit | | | Summar | | | yAdmit | | | Date | | | Facili | | | ty | | | City | | | State | | | Type | | | Major | | | Type | | | Diagno | | | ses or | | | Chief | | | | | | Compla | | | int | | | Nov | | | 15, | | | 2018 | | | Provid | | | ence | | | [facility] [place] | | | [place] | | | Emerge | | | ncy | | | Emerge | | | [...] Care | | | | | | Outpat | | | ient | | | | | | Wound | | | Check | | | Oct | | | 31, | | | 2018 | | | Provid | | | ence | | | [facility] [place] | | | [place] | | | Emerge | | | ncy | | | Emerge | | | ncy | | | rt | | | foot | | | pain | | | Foot | | | Pain | | | | | | Unspec | | | ified | | | sprain | | | of | | | right | | | foot, | | | initia | | | l | | | encoun | | | ter | | | Sep | | | 30, | | | 2018 | | | Provid | | | ence | | | [facility] [place] | | | [place] | | | Emerge | | | ncy | | | Emerge | | | ncy | | | Foot | | | Pain | | | Pain | | | in | | | right | | | foot | | | E.D. | | | [...] | | | Center | | | 4 0 | | | Total | | | 4 0 | | | Note: | | [...] | | | Summar | | | yNo | | | record | | | ed | | | inpati | | | ent | | | visits | | | . PDMP | | | | | | Report | | | Rx | | | Detail | | | s (6 | | | Mo.)Fi | | | ll | | | Date | | | Drug | | | Descri | | | ption | | | Qty. | | | Prescr | | | iber | | | CS MED | | | | | | 2018 | | | [...] | | 2 0 | | | | | | 05-18 | | | METHAD | | | ONE | | | HCL 10 | | | MG | | | TABLET | | | 480 | | | KAT | | | DENIS | | | ENSEN | | | 2 480 | | | | | | 05-18 | | | OXYCOD | | | ONE | | | HCL 30 | | | MG | | | TABLET | | | 180 | | | KAT | | | DENIS | | | ENSEN | | | 2 270 | | | | | | 05-18 | | | DEXTRO | | | AMP-AM | | | PHETAM | | | IN 20 | | | MG TAB | | | 75 | | | KAT | | | DENIS | | | ENSEN | | | 2 0 | | | | | | 05-18 | | | DEXTRO | | | AMP-AM | | | PHET | | | ER 30 | | | MG CAP | | | 30 | | | KTA | | | DENIS | | | ENSEN | | | 2 0 | | | | | | 04-10 | | | OXYCOD | | | ONE | | | HCL 30 | | | MG | | | TABLET | | | 180 | | | KAT | | | DENIS | | | ENSEN | | | 2 270 | | | 2018 | | | 720 | | | METHAD | | | ONE | | | HCL 10 | | | MG | | | TABLET | | | 480 | | | KAT | | | DENIS | | | ENSEN | | | 2 480 | | | | | | 7 | | | DEXTRO | | | AMP-AM | | | PHET | | | ER 30 | | | MG CAP | | | 30 | | | KAT | | | DENIS | | | ENSEN | | | 2 0 | | | 2018-0 | | | 7-20 | | | DEXTRO | | | AMP-AM | | | PHETAM | | | IN 20 | | | MG TAB | | | 75 | | | KAT | | | DENIS | | | ENSEN | | | 2 0 | | | 2018-0 | | | 6-18 | | | METHAD | | | ONE | | | HCL 10 | | | MG | | | TABLET | | | 480 | | | KAT | | | DENIS | | | ENSEN | | | 2 480 | | | 2018-0 | | | 6-18 | | | DEXTRO | | | AMP-AM | | | PHET | | | ER 30 | | | MG CAP | | | 30 | | | KAT | | | DENIS | | | ENSEN | | | 2 0 | | | 2018-0 | | | 6-18 | | | OXYCOD | | | ONE | | | HCL 30 | | | MG | | | TABLET | | | 180 | | | KAT | | | DENIS | | | ENSEN | | | 2 270 | | | 2018-0 | | | 6-05 | | | DEXTRO | | | AMP-AM | | | PHETAM | | | IN 20 | | | MG TAB | | | 75 | | | KAT | | | DENIS | | | ENSEN | | | 2 0 | | | 2018-0 | | | 5-19 | | | OXYCOD | | | ONE | | | HCL 30 | | | MG | | | TABLET | | | 180 | | | KAT | | | DENIS | | | ENSEN | | | 2 270 | | | Rx | | | Summar | | | y (12 | | | Mo.)Me | | | tric | | | Count | | | CS | | | II-V | | | Rx 42 | | | CS-II | | | Rx 40 | | | Quanti | | | ty | | | Dispen | | | sed | | | 7,460 | | | Unique | | | | | | Prescr | | | ibers | | | 1 | | | Unique | | | | | | Pharma | | | cies 2 | | | | | | Benzos | | | 0 | | | Opioid | | | s 20 | | | Long | | | Acting | | | | | | Opioid | | | s 0 | | | Care | | | Provid | | | ersEDI | | | E has | | | no | | | care | | | provid | | | ers on | | | | | | record | | | at | | | this | | | time. | | | Criter | | | ia met | | | | | | PDMPKn | | | own | | | Aliase | | | sNo | | | known | | | aliase | | | s. The | | | above | | | | | | inform | | | [...] | | | ? | | | 2018 | | | Collec | | | [...] | | | icalte | | | [facility] | | | | +---+--------+ documented in this encounter Visit Diagnoses + + | Diagnosis | + + | Patient left without being seen - Primary Surgical or other procedure not carried out | | because of patient's decision | + + | Acute osteomyelitis of toe of right foot (HCC) Acute osteomyelitis, ankle and foot | + + documented in this encounter
--- OUTSIDE RECORDS SUMMARY | ~2020-06-16 | XMS | Encounter Summary ---
Demographics + + + | Address | [address] | | | [place] [address] | + + + | Home Phone | | + + + | Preferred Language | Unknown | + + + | Marital Status | | + + + | Synagogue Affiliation | Unknown | + + + | Race | White | + + + | Ethnic Group | Not or | + + + Author + + + | Author | [facility] | | | and [place] | + + + | Organization | [facility] [...] [place], | | | | | [place] [address] | | + + + + + Care Team Providers + +------+ + | Care Associate Financial Analyst Name | Role | Phone | + +------+ + | Dimitri Fischer MD | PCP | | + +------+ + Reason for Visit +--------+--------+ + | Reason | Onset | Comments | | | Date | | +--------+--------+ + | Other | 12/31/ | | | | 2017 | | +--------+--------+ + Encounter Details +--------+ + + + + | Date | Type | Department | Care Team | Description | +--------+ + + + + | 12/31/ | Telephone | [facility] | Marty Wood | Other | | 2018 | | CARE [address] | MD [place] [address] [place] [address] | | | | | [place] | [place] | | | | | [address] | [address] | | | | | [phone] | | | +--------+ + + + [...] this encounter Miscellaneous Notes Telephone Encounter - Denia Lopez Senior [employer] Consultant - 01/02/2018 1:30 PM PDTIt has been already discussed with patient that he will receive an injection the day of surgery. When i ts approved and scheduled. Patient may come in to have a follow up to have an injection if h e wishes. TTelephone Encounter - Ree Do - 12/31/2017 9:33 AM PDTPatient stated that his l eft elbow is very painful. Patient stated that it feels like it has a needle in the tip of t he elbow. Please advise and call [phone]. documented in this encounter Plan of Treatment Not on filedocumented as of this encounter Visit Diagnoses Not on filedocumented in this encounter"
--- OUTSIDE RECORDS SUMMARY | ~2020-06-16 | XMS | Encounter Summary ---
Demographics + + + | Address | [address] | | | [place] [address] | + + + | Home Phone | | + + + | Preferred Language | Unknown | + + + | Marital Status | | + + + | Holiness Affiliation | Unknown | + + + | Race | White | + + + | Ethnic Group | Not or | + + + Author + + + | Author | [facility] | | | and [place] | + + + | Organization | [facility] | | | and [...] [place], | | | | | [place] [address] | | + + + + + Care Team Providers + +------+ + | Care Ring Barker Operator Name | Role | Phone | + +------+ + PCP | Unavailable | + +------+ + Reason for Visit Auth/Cert +--------+--------+ + + + + | Status | Reason | Specialty | Diagnoses / | Referred By | Referred To | | | | | Procedures | Contact | Contact | +--------+--------+ + + + + | Closed | | | Diagnoses | | | | | | | Tear of | | | | | | | medial | | | | | | | cartilage or | | | | | | | meniscus of | | | | | | | knee, | | | | | | | current | | | | | | | Tear of | | | | | | | medial | | | | | | | cartilage or | | | | | | | meniscus of | | | | | | | knee, | | | | | | | current | | | | | | | Procedures | | | | | | | AZ KNEE | | | | | | | SCOPE,DIAGNO | | | | | | | STIC AZ | | | | | | | KNEE | | | | | | | SCOPE,SHAVE | | | | | | | ARTICULAR | | | | | | | CART AZ | | | | | | | ARTHRS KNEE | | | | | | | W/MENISCECTO | | | | | | | MY MED&LAT | | | | | | | W/SHAVING | | | | | | | AZ ARTHRS | | | | | | | KNE SURG | | | | | | | W/MENISCECTO | | | | | | | MY MED/LAT | | | | | | | W/SHVG [place] | | | | | | | KNEE | | | | | | | SCOPE,MED OR | | | | | | | LAT MENIS | | | | | | | REPAIR [place] | | | | | | | ARTHRO, | | | | | | | LOOSE BODY + | | | | | | | CHONDRO | | | | | | | ARTHROSCOPY | | | | | | | KNEE | | | +--------+--------+ + + + + Encounter Details +--------+ + + + + | Date | Type | Department | Care Team | Description | +--------+ + + + + | 12/05/ | Anesthesia | [facility] | Bello Bro MD | | | 2014 | Event | [facility] | [address] | | | | | [address] | [place] | | | | | [place], [place] | [address] | | | | | [address] | | | | | | [phone] | Stephen Kumar, | | | | | | [address] | | | | | | [place] | | | | | | [address] | | | | | | | | +--------+ + + + + Anesthesia Record + + + + + | Procedure Name | Responsible | Anesthesia Start | Anesthesia Stop Time | | | Anesthesiologist | Time | | + + + + + | Right Knee | Bello Bro MD | 12/05/14 1107 | 12/05/14 1202 | | Arthroscopy with | | | | | Partial Medial | | | | | Menisectomy and | | | | | Medial- Femoral | | | | | Chondroplasty (Right | | | | | Knee) | | | | + + + + + +----+---+ + + | Da | T | Event | Comment | | te | i | | | | | m | | | | | e | | | +----+---+ + + | 03 | 1 | | | | /1 | 1 | | | | 6/ | 0 | | | | 20 | 5 | | | | 15 | | | | +----+---+ + + | | 1 | An Checkout | Pre-use anesthesia machine/equipment checkout. | | | 1 | | | | | 0 | | | | | 7 | | | +----+---+ + + | | 1 | An Start | Reassessment prior to anesthesia induction/procedure. | | | 1 | | | | | 0 | | | | | 7 | | | +----+---+ + + | | 1 | Antibiotic | | | | 1 | Given | | | | 0 | | | | | 7 | | | +----+---+ + + | | 1 | Preoxygenat | | | | 1 | ed | | | | 1 | | | | | 0 | | | +----+---+ + + | | 1 | An | | | | 1 | Induction | | | | 1 | | | | | 2 | | | +----+---+ + + | | 1 | An | | | | 1 | Intubation | | | | 1 | | | | | 4 | | | +----+---+ + + | | 1 | Breathing | | | | 1 | Spontaneous | | | | 1 | ly | | | | 5 | | | +----+---+ + + | | 1 | Extubated | | | | 1 | Deep | | | | 5 | | | | | 6 | | | +----+---+ + + | | 1 | an stop | | | | 1 | data | | | | 5 | | | | | 8 | | | +----+---+ + + | | 1 | An Stop | Patient handed off to recovery nurse. | | | 0 | | | | | 2 | | | +----+---+ + + +------+ | Meds | +------+ + +---------+ | Name | Total | + +---------+ | lidocaine 2% | 40 mg | + +---------+ | propofol | 600 mg | + +---------+ | ondansetron | 4 mg | + +---------+ | fentaNYL | 100 mcg | + +---------+ | HYDROmorphone | 8 mg | + +---------+ | ceFAZolin | 2 g | + +---------+ | midazolam | 2 mg | + +---------+ | ketorolac | 30 mg | + +---------+ | lactated ringers (LR) infusion | 800 mL | + +---------+ + + | Name | + + | N2O Flow Rate (L/Min) | + + | O2 Flow Rate (L/Min) | + + | Insp O2 | + + | Exp SHAMA | + + | Air Flow Rate (L/Min) | + + + + | No blood administrations on file. | + + +--------+ + + + | Type | Details | Placement | Removal | +--------+ + + + | [READ | 12/05/14; 1016; short term use; | 12/05/14 1016 by | 12/05/14 1520 by | | ONLY] | 12/05/14; 1520 | Fatoumata Israel, | Yany Mayo RN | | | | RN | | | Periph | | | | | eral | | | | | IV - | | | | | Single | | | | | Lumen | | | | | | | | | +--------+ + + + | Airway | Placement Date: 12/05/14; | 12/05/14 1114 by | 12/05/14 1156 by | | | Placement Time: 1114; Attempts: | Bello Bro MD | Bello Bro MD | | | 1; Airway Type: laryngeal mask, | | | | | oral, non-disposable, cuffed; | | | | | Size: 4; Trauma: none; Placement | | | | | Check: verified by capnography; | | | | | Placed By: Anesthesiologist; | | | | | Removal Date: 12/05/14; Removal | | | | | Time: 1156 | | | +--------+ + + + [...] + + | Airway | Placement Date: (prior to | 12/05/14 1212 by | 12/05/14 1212 by | | | arrival in PACU); Airway Type: | Krys Pearson RN | Krys Pearson RN | | | oral; Size: 10; Removal Date: | | | | | 12/05/14; Removal Time: 1212 | | | +--------+ + + + documented in this encounter Social History + +-------+ +--------+ + | [...] encounter OR Notes Anesthesia Postprocedure Evaluation - Bello Bro MD - 12/05/2014 12:05 PM PDT ANESTHESIA POSTANESTHESIA EVALUATION Cecilio Arias 44 y.o. male 1970 [id number] Procedure(s) Right Knee Arthroscopy and Debridement (Right Knee) Filed Vitals: 12/05/14 0923 12/05/14 1201 BP: 129/53 126/68 Pulse: 85 95 Temp: 36.3 C (97.3 F) 37.3 C (99.1 F) Resp: 18 19 SpO2: 97% 91% Cooperates? Yes Mental Status Performs simple tasks. Respiratory Satisfactory - Airway patent (self maintained). Cardiovascular Satisfactory Blood pressure and heart rate acceptable Temperature Satisfactory Pain Satisfactory N/V Control Satisfactory Hydration Satisfactory No signs of dehydration Complications None apparent Electronically signed by Bello Bro MD 12/05/2014 12:05 [facility] Preprocedure Evaluation - Bello Bro MD - 12/05/2014 10:58 AM PDTFormatting of this note might be di fferent from the original. ANESTHESIA PREANESTHESIA EVALUATION Cecilio Arias 44 y.o. male 1970 [id number] Procedure(s): Right Knee Arthroscopy and Debridement (Right Knee) Medical history, anesthesia, medications, allergy histories reviewed. ECG reviewed. Labs reviewed. ROS / Med History Ane No anesthesia complications. NPO status verified. CV Negative except where noted below. Pulm (+) COPD. Neuro (+) seizures. Endo (+) Diabetes:type 2. (+) obesity: BMI (30-39). Physical Exam Airway MP III, TM >3 FB, Mouth opening >2 FB. Neck: full ROM, extends >30 degrees. Jaw protru tg normal. Dental Grossly normal except where noted below.; CV Rhythm regular. Rate normal. (-) murmur. Pulm Clear to auscultation bilaterally. Neuro Grossly normal. Other Pt has a h/o a cervical spinal cord syrinx. Anesthesia Plan ASA 3 Type: General. Induction: Intravenous. Potential problems: None anticipated. Monitors: Standard ASA monitors. Consent statement:Anesthetic plan, alternatives, risks and benefits discussed with patient. Risks discussed included (but were not limited to): nausea, pain, . Consenting person understands and agrees to proceed. Electronically Signed by: Bello Bro MD ESig date/time: 12/05/2014 10:58 documented in this enco unter Plan of Treatment Not on filedocumented as of this encounter Visit Diagnoses Not on filedocumented in this encounter Administered Medications + +--------+ +------+------+------+ | Medication Order | MAR | Action | Dose | Rate | Site | | | Action | Date | | | | + +--------+ +------+------+------+ | ceFAZolin (ANCEF, KEFZOL) | Given | 12/06/19 | 2 g | | | | injection Intravenous, PRN, | | 15 11:08 | | | | | Starting Fri12/05/14 at 1108, | | AM PDT | | | | | Anesthesia Intra-op | | | | | | + +--------+ +------+------+------+ +---+---+ | | | +---+---+ + +-------+ +---------+---+---+ | fentaNYL injection | Given | 12/06/19 | 100 mcg | | | | Intravenous, PRN, Pain, Starting | | 15 11:06 | | | | | 12/05/14 at 1106, Anesthesia | | AM PDT | | | | | Intra-op | | | | | | + +-------+ +---------+---+---+ +---+---+ | | | +---+---+ + +-------+ +------+---+---+ | HYDROmorphone (PF) (DILAUDID) 2 | Given | 12/06/19 | 2 mg | | | | mg/mL injection Intravenous, | | 15 11:50 | | | | | PRN, Pain, Starting 12/05/14 | | AM PDT | | | | | at 1121, Anesthesia Intra-op | | | | | | + +-------+ +------+---+---+ +-------+ +------+---+---+ | Given | 12/06/19 | 2 mg | | | | | 15 11:41 | | | | | | AM PDT | | | | +-------+ +------+---+---+ | Given | 12/06/19 | 2 mg | | | | | 15 11:24 | | | | | | AM PDT | | | | +-------+ +------+---+---+ +---+---+ | | | +---+---+ + +-------+ +-------+---+---+ | ketorolac (TORADOL) injection | Given | 12/06/19 | 30 mg | | | | Intravenous, PRN, Pain, Starting | | 15 11:53 | | | | | 12/05/14 at 1153, Anesthesia | | AM PDT | | | | | Intra-op | | | | | | + +-------+ +-------+---+---+ +---+---+ | | | +---+---+ + +---------+ +---+---+---+ | lactated ringers (LR) infusion | New Bag | 12/06/19 | | | | | at 10-100 mL/hr, Intravenous, | | 15 11:06 | | | | | CONTINUOUS, Starting 12/05/14 | | AM PDT | | | | | at 0945, TKO., Pre-op | | | | | | + +---------+ +---+---+---+ +---+---+ | | | +---+---+ + +-------+ +-------+---+---+ | lidocaine (PF) 2% injection | Given | 12/06/19 | 40 mg | | | | Intravenous, PRN, Starting Mon | | 15 11:12 | | | | | 12/05/14 at 1112, Anesthesia | | AM PDT | | | | | Intra-op | | | | | | + +-------+ +-------+---+---+ +---+---+ | | | +---+---+ + +-------+ +------+---+---+ | midazolam (VERSED) 1 mg/mL | Given | 12/06/19 | 2 mg | | | | injection Intravenous, PRN, | | 15 11:06 | | | | | Anxiety, Starting 12/05/14 at | | AM PDT | | | | | 1106, Anesthesia Intra-op | | | | | | + +-------+ +------+---+---+ +---+---+ | | | +---+---+ + +-------+ +------+---+---+ | ondansetron (ZOFRAN) injection | Given | 12/06/19 | 4 mg | | | | Intravenous, PRN, Nausea, | | 15 11:22 | | | | | Vomiting, Starting 12/05/14 at | | AM PDT | | | | | 1122, Anesthesia Intra-op | | | | | | + +-------+ +------+---+---+ +---+---+ | | | +---+---+ + +-------+ +--------+---+---+ | propofol (DIPRIVAN) injection | Given | 12/06/19 | 200 mg | | | | Intravenous, PRN, Starting Mon | | 15 11:22 | | | | | 12/05/14 at 1112, Anesthesia | | AM PDT | | | | | Intra-op | | | | | | + +-------+ +--------+---+---+ +-------+ +--------+---+---+ | Given | 12/06/19 | 400 mg | | | | | 15 11:12 | | | | | | AM PDT | | | | +-------+ +--------+---+---+ +---+---+ | | | +---+---+ documented in this encounter"
--- OUTSIDE RECORDS SUMMARY | ~2020-06-16 | XMS | Encounter Summary ---
Demographics + + + | Address | [address] | | | [place] [address] | + + + | Home Phone [...] + + + | Author | [facility] | | | and [place] | + + + | Organization | [facility] | | | and [...] [place], | | | | | [place] [address] | | + + + + + Care Team Providers + +------+ + | Care Dowel Machine Operator Name | Role | Phone | + +------+ + | Dimitri Fischer MD | PCP | | + +------+ + Encounter Details +--------+ + + + + | Date | Type | Department | Care Team | Description | +--------+ + + + + | 08/01/ | Imaging | [facility] | Provider, | | | 2017 | Exam | [facility] | [facility] [address] | | | | | [address] | | | | | [address] [facility] | [place] [address] | | | | | [place] [address] | | | | | | [phone] | | | +--------+ + + + [...] + +--------+ + + + | XR KNEE RIGHT 3 VW | Routin | 06/27/2014 | | Results for this | | | e | 1:45 PM | | procedure are in the | | | | PDT | | results section. | + +--------+ + + + documented in this encounter Results XR Knee Right 3 Vw (06/27/2014 1:45 PM PDT) + + | Specimen | + + | | + + + + + | Narrative | Performed At | + + + | External films | [facility] | | for comparison only - no result from [facility]. | | + + + + +---------+ + + | Performing | Address | City/State/Zipcode | Phone Number | | Organization | | | | + +---------+ + + | [facility] | | | | + +---------+ + + documented in this encounter Visit Diagnoses Not on filedocumented in this encounter"
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
--- OUTSIDE RECORDS SUMMARY | ~2020-06-16 | XMS | Encounter Summary ---
Demographics + + + | Address | [address] [facility] | | | [place] [address] | + + + | Home Phone | | + + + | Preferred Language | Unknown | + + + | Marital Status | | + + + | Nondenominational Affiliation | Unknown | + + + | Race | White | + + + | Ethnic Group | Not or | + + + Author + + + | Author | Located Within [facility] | | | and [place] | + + + | Organization | Located Within [facility] | | [...] [place], | | | | | [place] [address] | | + + + + + Care Team Providers + +------+ + | Care Cider Maker Name | Role | Phone | [...] | | | | | | | NE KNEE | | | | | | | SCOPE,DIAGNO | | | | | | | STIC NE | | | | | | | KNEE | | | | | | | SCOPE,SHAVE | | | | | | | ARTICULAR | | | | | | | CART NE | | | | | | | ARTHRS KNEE | | | | | | | W/MENISCECTO | | | | | | | MY MED&LAT | | | | | | | W/SHAVING | | | | | | | NE ARTHRS | | | | | | | KNE SURG | | | | | | | W/MENISCECTO | | | | | | | MY MED/LAT | | | | | | | W/SHVG NE | | | | | | | KNEE | | | | | | | SCOPE,MED OR | | | | | | | LAT MENIS | | | | | | | REPAIR NE | | | | | | | [...] Description | +--------+---------+ + + + | 12/05/ | Surgery | [facility] | Marty Wood | Right Knee | | 2014 | | [facility] | MD [place] [address] [facility] | Arthroscopy with | | | | [address] | [place] | Partial Medial | | | | [place] | [phone] | Menisectomy and | | | | [phone] | | Medial- Femoral | | | | [phone] | | Chondroplasty | +--------+---------+ + + + Social History [...] + + + | Blood Pressure | 127/64 | 12/05/2014 3:00 PM | | | | | PDT | | + + + + + | Pulse | 86 | 12/05/2014 3:00 PM | | | | | PDT | | + + + + + | Temperature | 37.3 C (99.1 F) | 12/05/2014 12:01 PM | | | | | PDT | | + + + + + | Respiratory Rate | 16 | 12/05/2014 3:00 PM | | | | | PDT | | + + + + + | Oxygen Saturation | 96% | 12/05/2014 3:00 PM | | | | | PDT | | + + + + + | Inhaled Oxygen | - | - | | | Concentration | | | | + + + + + | Weight | 118.4 kg (261 lb) | 12/05/2014 9:23 AM | | | | | PDT | | + + + + + | Height | 182.9 cm (6') | 12/05/2014 9:23 AM | | | | | PDT | | + + + + + | Body Mass Index | 35.4 | 12/05/2014 9:23 AM | | | | | PDT | | + + + + + documented in this encounter Discharge Instructions Instructions Yany Mayo RN - 12/05/2014Formatting of this note might be different f rom the original. Please keep appointment in Dr Wood's office as already scheduled. Remove the bandages on the third post op day but leave steri-strips in place. Apply bandai ds to portal wound sites. May get wound wet in shower on third post op day. May shower lizette or to this if bandages and wound are protected from water with Saran wrap or something simil ar. Discharge Instructions for Knee Arthroscopy You had kneearthroscopy. This surgical procedure uses small incisions to locate, identify , and treat problems inside the knee. These problems include loose bodies, bone spurs, osteo chondritis dissecans (OCD), and synovitis. Below are tips to help speed your recovery from s urgery. Activity Don t drive until your doctor says it s OK. And never drive while taking opioid pain medication. Remember to take pain medications as directed; don t wait for the pain to get bad. And don't drink alcohol while taking pain medications. Follow weight-bearing instructions given by your doctor. He or she may require you to us e crutches to keep weight off your knee. Unless your doctor tells you otherwise, begin using the affected knee as much as you can [id number] after surgery. Slowly bend and straighten your affected leg as far as you can, unless your doctor tells you otherwise. Do this several times a day. Rest your knee by lying down and putting pillows under it for the [id number] after s urgery. Keep your ankle elevated above the level of your heart. This helps keep swelling tanner n. Follow your doctor s instructions about wearing and caring for a brace, immobilizer, o r elastic dressing. Point and flex your foot, and rotate your ankle as much as possible during the first few weeks following surgery. Also, wiggle your toes as much as possible. Incision care Check your incision daily for redness, tenderness, or drainage. Don t be alarmed if there is some bruising, slight swelling of the knee, or a small am ount of blood on the bandage. Adjust the bandage or brace as needed. It should feel supportive on your knee, but not t oo tight. Don t soak your incision in water (no hot tubs, bathtubs, swimming pools) until your d octor says it s OK. Xecc2flu(s)after your surgery to begin showering. Then shower as needed. Cover you r knee with plastic to keep the dressing or brace dry. Once your dressing is removed, follow your doctor s instructions for care of the wound. And sit on a shower stool so that you d on t fall while showering. Use an ice packor bag of frozen peas or something similar wrapped in a thin towel to reduce the swelling. Keep the foot elevated while you ice the knee. Apply the ice pack fo [id number]; then remove it [id number]. Repeat as needed. Icing helps reduce swelli ng. Other precautions Arrange your household to keep the items you need within reach. Remove throw rugs, electrical cords, and anything else that may cause you to fall. Use nonslip bath mats, grab bars, an elevated toilet seat, and a shower chair in your ba throom. Use a cane, crutches, a walker, or handrails until your balance, flexibility, and streng th improve, and you can put weight on your leg. And remember to ask for help from others whe n you need it. Free up your hands so that you can use them to keep balance. Use a eulogio pack, apron, or pockets to carry things. Follow-up Make a follow-up appointment as directed by our staff. When to seek medical attention Call 911 right awayif you have any of the following: Chest pain Shortness of breath Severe nausea Otherwise, call your doctor immediately if you have any of the following: Pain that is not relieved by medication or rest Continued bleeding through the bandage Tingling, numbness, or coldness in your foot or leg Fever [id number](38.0C) or shaking chills Excessive swelling, increased redness, or any drainage around the incision Swelling, tenderness, or pain in your leg [id number] [employer] [address] [place] [address], [place] [address]. All righ ts reserved. This information is not intended as a substitute for professional medical care. Always follow your healthcare professional's instructions. Anesthesia: After Your Surgery You ve just had surgery. During surgery, you received medication called anesthesia to reginald p you comfortable and pain-free. After surgery, you may experience some pain or nausea. This is normal. Here are some tips for feeling better and recovering after surgery. Going Home Your doctor or nurse will show you how to take care of yourself when you go home. He or she will also answer your questions. Have an adult family member or friend drive you home. For the first 24 hours after your surgery: Do not drive or use heavy equipment. Do not make important decisions or sign legal documents. Avoid alcohol. Have someone stay with you, if needed. He or she can watch for problems and help keep yo u safe. Be sure to keep all follow-up doctor s appointments. And rest after your procedure for as long as your doctor tells you to. Coping with Pain If you have pain after surgery, pain medication will help you feel better. Take it as direc naina, before pain becomes severe. Also, ask your doctor or pharmacist about other ways to con trol pain, such as with heat, ice, and relaxation. And follow any other instructions your roberts rgeon or nurse gives you. Tips for Taking Pain Medication To get the best relief possible, remember these points: Pain medications can upset your stomach. Taking them with a little food may help. Most pain relievers taken by mouth need at least 20 to 30 minutes to take effect. Taking medication on a schedule can help you remember to take it. Try to time your medic ation so that you can take it before beginning an activity, such as dressing, walking, or si tting down for dinner. Constipation is a common side effect of pain medications. Contact your doctor before rodriguez ing any medications like laxatives or stool softeners to help relieve constipation. Also ask about any dietary restrictions, because drinkinglots of fluids andeating foodslikef ruits and vegetables that are high in fiber can also help. Remember, don t take laxatives unless your surgeon has prescribed them. Mixing alcohol and pain medication can cause dizziness and slow your breathing. It can e kiera be fatal. Don t drink alcohol while taking pain medication. Pain medication can slow your reflexes. Don t drive or operate machinery while taking pain medication. If your health care provider advises you to take acetaminophen, the generic name for Tyleno l and other brand-name pain relievers, to help relieve your pain, ask for a daily dose. Harika mber that acetaminophen or other pain relievers may interact with prescription medicines or other jdjn-bhs-eclzhih (OTC) drugs. The FDA recommends reading OTC medication labels careful ly to clearly understand the list of active ingredients, directions, and any precautions to help avoid taking too muchacetaminophen. If you have questions, ask your pharmacist or a [facility] care provider. Managing Nausea Some people have an upset stomach after surgery. This is often due to anesthesia, pain, kevin n medications, or the stress of surgery. The following tips will help you manage nausea and get good nutrition as you recover. If you were on a special diet before surgery, ask your do ctor if you should follow it during recovery. These tips may help: Don t push yourself to eat. Your body will tell you what to eat and when. Start off with clear liquids and soup. They are easier to digest. Progress to semisolids (mashed potatoes, applesauce, and gelatin) as you feel ready. Slowly move to solid foods. Don t eat fatty, rich, or spicy foods at first. Don t force yourself to have three large meals a day. Instead, eat smaller amounts mor e often. Take pain medications with a small amount of solid food, such as crackers or toast to av oid nausea. Call Your Surgeon If You still have pain an hour after taking medication (it may not be strong enough). You feel too sleepy, dizzy, or groggy (medication may be too strong). You have side effects like nausea, vomiting, or skin changes (rash, itching, or hives). [id number] [employer] [address] [place] [address], [place] [address]. All righ ts reserved. This information is [...] + + + +---------+ + + | albuterol | Inhale 2 puffs into | | 0 | | | | (VENTOLIN HFA) 90 | the lungs every 6 | | | | 5 | | mcg/puff inhaler | hours as needed. | | | | | + + + +---------+ + + | B-D ULTRAFINE III | | | 0 | 11/16/19 | | | SHORT PEN 31G X 8 MM | | | | 15 | 5 | + + + +---------+ + + | TERRI CONTOUR TEST | | | 0 | 10/07/19 | | | strip | | | | 15 | 5 | + + + +---------+ + + | Cholecalciferol | Take by mouth. | | 0 | | | | (VITAMIN D PO) | | | | | 5 | + + + +---------+ + + | cholecalciferol | | | 0 | 10/24/19 | | | (VITAMIN D-3) 1,000 | | | | 15 | 5 | | units capsule | | | | | | + + + +---------+ + + | CYCLOBENZAPRINE | Take by mouth. | | 0 | | | | HCL PO | | | | | 5 | + + + +---------+ + + | gabapentin | Take 300 mg by mouth | | 0 | | | | (NEURONTIN) 300 mg | 3 times daily. | | | | 5 | | capsule | | | | | | + + + +---------+ + + | | Take 1-2 tablets by | 40 | 0 | 12/06/19 | | | HYDROcodone-acetamin | mouth every 6 hours | tablet | | 15 | 5 | | ophen (NORCO) | as needed for Pain | | | | | | 7.5-325 mg per | for up to 10 days. | | | | | | tablet | | | | | | + + + +---------+ + + | insulin glargine | Inject 80 Units | | 0 | | | | (LANTUS SOLOSTAR) | under the skin | | | | 5 | | 100 units/mL | nightly. | | | | | | injection pen | | | | | | + [...] + | methadone 10 mg | Take 10 mg by mouth | | 0 | | | | tablet | every 8 hours as | | | | 5 | | | needed. | | | | | + + + +---------+ + + | oxyCODONE | Take 30 mg by mouth | | 0 | | | | (ROXICODONE) 30 MG | Daily. | | | | 5 | | immediate release | | | | | | | tablet | | | | | | + + + +---------+ + + | oxyCODONE 10 MG | Take 0.5-1 tablets | 60 | 0 | 12/06/19 | | | TABS | by mouth every 12 | tablet | | 15 | 5 | | | hours as needed. | | | | | + + + +---------+ + + | oxyCODONE 10 MG | Take 1 tablet by | 60 | 0 | 12/06/19 | | | TABS | mouth every 12 hours | tablet | | 15 | 5 | | | as needed. | | | | | + + + +---------+ + + | pilocarpine | Take 5 mg by mouth 3 | | 0 | | | | (SALAGEN) 5 mg | times daily. | | | | 5 | | tablet | | | | [...] + documented as of this encounter H&P Notes Marty Wood MD - 12/05/2014 9:49 AM [facility] SURGICAL INTERIM HISTORY AND PHYSICAL UPDATE Pt. Name/Age/: Cecilio Arias 44 y.o. 1970 Date of admission: 12/05/2014 The current H&P was reviewed. The patient was reexamined. Re-evaluation of the patient co nfirms the necessity for the scheduled procedure. No change has occurred in the patient s condition since the H&P was completed less than 30 days ago. Electronically signed by: Marty Wood, 12/05/2014 9:49 [facility] arty Wood MD - 11/29/2014 1:36 PM PDT History of present illness: Cecilio is a 44 y.o. male who presents to our clinic today for a preop examination. Cecilio is scheduled for a right knee arthroscopy on 12/05/14. He fell down a set of steps on 04/25/15 and jammed his right knee. He has had persisting righ t knee pain since then that has failed conservative measures. An MRI scan showed a torn med ial meniscus and he therefore is felt to be an appropriate candidate for right knee arthrosc opy. Past Medical History Diagnosis Date Emphysema of lung (HCC) Osteoporosis Seizure (HCC) Diabetes mellitus (HCC) GERD (gastroesophageal reflux disease) Vitamin D deficiency Testosterone deficiency Elevated cholesterol No past surgical history on file. Allergies Allergen Reactions Azithromycin Anaphylaxis Codeine Hives Sulfa Antibiotics Hives Current Outpatient Prescriptions on File Prior to Visit Medication Sig Dispense Refill albuterol (VENTOLIN HFA) 90 mcg/puff inhaler Inhale 2 puffs into the lungs every 6 hour s as needed. Cholecalciferol (VITAMIN D PO) Take by mouth. CYCLOBENZAPRINE HCL PO Take by mouth. FLUoxetine (PROZAC) 20 mg capsule Take 20 mg by mouth 3 times daily. fluticasone (FLOVENT HFA) 110 mcg/puff inhaler Inhale 1 puff into the lungs 2 times suresh ly. gabapentin (NEURONTIN) 300 mg capsule Take 300 mg by mouth 3 times daily. insulin glargine (LANTUS SOLOSTAR) 100 units/mL injection pen Inject under the skin gilbert valenzuela. lisinopril (PRINIVIL, ZESTRIL) 5 mg tablet Take 5 mg by mouth Daily. metformin (GLUCOPHAGE) 1000 MG tablet Take 1,000 mg by mouth 2 times daily (with breakf ast & dinner). methadone 10 mg tablet Take 10 mg by mouth every 8 hours as needed. omeprazole (PRILOSEC) 20 mg capsule Take 20 mg by mouth every morning (before breakfast ). oxyCODONE (ROXICODONE) 30 MG immediate release tablet Take 30 mg by mouth Daily. pilocarpine (SALAGEN) 5 mg tablet Take 5 mg by mouth 3 times daily. simvastatin (ZOCOR) 40 mg tablet Take 20 mg by mouth nightly. testosterone cypionate (DEPO-TESTOSTERONE) 200 mg/mL injection Inject into the muscle every 14 days. No current facility-administered medications on file prior to visit. No family history on file. History Social History Marital Status: Single Spouse Name: N/A Number of Children: N/A Years of Education: N/A Occupational History Not on file. Social History Main Topics Smoking status: Former Smoker Quit date: 08/18/2014 Smokeless tobacco: Never Used Alcohol Use: Not on file Drug Use: Not on file Sexual Activity: Not on file Other Topics Concern Not on file Social History Narrative Review of Systems Constitutional: Denies fever or chills Eyes: Denies change in visual acuity HENT: Denies nasal congestion or sore throat Respiratory: Denies cough or shortness of breath Cardiovascular: Denies chest pain or edema GI: Denies abdominal pain, nausea, vomiting, bloody stools or diarrhea : Denies dysuria Musculoskeletal: Denies back pain or joint pain except for that mentioned above in HPI. Integument: Denies rash Neurologic: Denies headache, focal weakness or sensory changes Endocrine: Denies polyuria or polydipsia Lymphatic: Denies swollen glands Psychiatric: Denies depression or anxiety Filed Vitals: 11/29/14 1208 BP: 148/78 Pulse: 100 Temp: 36.7 C (98 F) Resp: 16 PainSc: 9 PainLoc: Knee Estimated body mass index is 30.51 kg/(m^2) as calculated from the following: Height as of this encounter: 1.829 m (6'). Weight as of this encounter: 102.059 kg (225 lb). Physical examination:Patient is alert and oriented and in no acute distress. Inspection reveals: Skin is warm dry and intact with no gross deformity. Head: Oral pharnyx nonerythematous nonedematous no exudate noted Neck: Supple nontender without any lymphadenopathy. Heart: Regular rate and rhythm. Lungs: Clear to auscultation. Abdomen: Soft nontender no masses organomegaly. Cranial nerves 2-12 grossly intact. Musculoskeletal: The right knee is tender over the medial joint line. Assessment: Torn right knee medial meniscus. Plan: The patient is scheduled for a right knee arthroscopy on 12/05/14. Therefore, the hung nned procedure with its risks, possible complications, expected prognosis, and treatment alt ernatives was discussed with the patient. Risks and possible complications were listed but not limited to infection, nerve and vessel damage, bleeding, pain, scarring, stiffness, resi dual symptoms remaining after surgery, and the risk of anesthesia including . No guara ntees were given or implied other than that of diligent effort. documented in th is encounter Nursing Notes Rufino Hartman RN - 12/05/2014 12:33 PM PDTThis note also relates to the following rows which could not be included: MAP - Cannot attach notes to unvalidated device data GLUCOSE CHECK 135, RESPONDS TO PAINFUL STIMULI. Rufino Dorsey RN - 12/05/2014 12:24 PM PDTThis note also rela elvira to the following rows which could not be included: MAP - Cannot attach notes to unvalidated device data O2 PLACED BACK ON DUE TO LOW SAT, Rufino Dorsey RN - 12/05/2014 12:21 PM PDTAWAKE, RESTLESS, DENIES SEVERE PA IN, MOVING X 4, DR WOOD HERE TO SEE. BACK TO SLEEP atoumata Israel RN - 12/05/2014 10:36 AM PDTInterpath lab faxed over pertinent lab results. Dr. Bello Bro called and made aware.Electronically s igned by Fatoumata Israel RN at 12/05/2014 10:37 AM PDTdocumented in this encounter Miscellaneous Notes Op Note - Marty Wood MD - 12/05/2014 12:06 PM PDTOPERATIVE REPORT MARTY WOOD MD Patient: Cecilio Zimmerman Avlonitis Admitting: MARTY WOOD MR #: DATE OF SURGERY:@date@ DATE OF DICTATION:@date@ OPERATIVE SURGEON: Dr. Marty Wood ANESTHESIOLOGIST: Dr. Bello Bro PREOPERATIVE DIAGNOSIS: Internal derangement right knee. POSTOPERATIVE DIAGNOSIS: Internal derangement right knee with complex tear middle and post erior horns of medial meniscus and grade 3 chondromalacia medial femoral condyle. TITLE OF PROCEDURE: Right knee arthroscopy with partial medial menisectomy and motorized ch ondroplasty of the medial femoral condyle. HISTORY AND REASON FOR SURGERY: Cecilio is a 44 y.o. male with a 7 month history of intermittent and gradually worsening right knee pain starting with a fall on 04/25/14. He has failed conservative management including rest, anti -inflammatories and decreased activity. An MRI scan was obtained showing a torn medial menis cus and in view of these findings he was felt to be a candidate for operative arthroscopy. T herefore, the planned procedure with its risks possible complications, expected prognosis an d treatment alternatives was discussed with the patient. Risks and possible complications we re listed but not limited to infection, nerve and vessel damage, bleeding, pain, scarring, s tiffness, possibility of some residual symptoms remaining after surgery and the risk of anes thesia. he verbalized understanding, no guarantees were given nor implied other than that of diligent effort. OPERATIVE ARTHROSCOPIC FINDINGS: The lateral gutter, medial gutter and prepatellar pouch we re free of pathology. The patellofemoral compartment showed minimal chondromalacia. The medi al compartment showed a complex tear involving the inner 30% of the posterior and middle hor ns of the medial meniscus. The medial femoral condyle had grade 3 chondromalacia with unsta ble articular cartilage flaps involving a 3 by 4 cm area comprising the weight bearing area of the medial femoral condyle. The intracondylar notch showed intact anterior and posterior cruciate ligaments. The lateral compartment was free of pathology. OPERATIVE PROCEDURE: After the patient had signed the consent for surgery, he was brought t o the operating room where she underwent general anesthesia successfully. He had already rec eived 2 grams of IV Ancef. A tourniquet was applied to the right lower extremity, but was no t used. The entire right lower extremity was prepped with alcohol and DuraPrep and draped in the usual free and sterile sterile manner. At this time, the middle column of the surgical safety checklist was carried out by the surgical team. We injected the knee with 20 mL of 2 percent lidocaine with epinephrine. We inserted a drain needle through a small stab incision in the upper medial quadrant. We inserted an arthroscope into the knee through a small stab incision in the lower lateral quadrant. A portal was made in the lower medial quadrant with the aid of an 18 gauge needle. Inspection was carried out with the findings as noted above. We then directed our attention to the medial compartment. We proceeded to trim the medial meniscus back to a stable edge with end biter and side biter forceps removing approximately the inner 30% of the posterior and middle horns of the medial meniscus. We also performed a motorized chondroplasty of the medial femoral condyle removing the unstable articular carti taylor flaps. This being done, we made sure all of the debris was removed from the knee and we then irrig ated the knee and upon this we then removed the instruments in the lower 2 portals and close d those portals with 4-0 Monocryl. We injected the knee with 10 mL of 0.5 percent Naropin fo llowed by which the drain needle was removed and all 3 incisions were secured with Steri-Str ips and benzoin. We then injected all 3 portal types with 3 mL each of 0.5 percent Naropin. We then dressed the wounds with dry gauze fluffs, ABD, sterile Kerlix and a 6 inch Wily wrap. Anesthesia was terminated. The patient was transported to the recovery room in stable condi tion. There were no immediate postoperative complications. BLOOD LOSS: About 5 mL BLOOD REPLACED: None. SPECIMENS: None. FINDINGS: Same as postoperative diagnosis. PROGNOSIS: Is felt to be good. documented in th is encounter Plan of Treatment + +------+--------+ + + | Name | Type | Priori | Associated Diagnoses | Order Schedule | | | | ty | | | + +------+--------+ + + | DME: Crutches | DME | Routin | Medial meniscus | DME 1 Time for 1 | | | | e | tear, right, | Occurrences starting | | | | | subsequent encounter | 12/05/2014 until | | | | | | 12/05/2014 | + +------+--------+ + + documented as of this encounter Procedures + +--------+ + + + | Procedure Name | Priori | Date/Time | Associated Diagnosis | Comments | | | ty | | | | + +--------+ + + + | POC GLUCOSE | Routin | 12/05/2014 | | Results for this | | | e | 12:32 PM | | procedure are in the | | | | PDT | | results section. | + +--------+ + + + | ARTHROSCOPY KNEE | | 12/05/2014 | Tear of medial | | | | | 10:50 AM | cartilage or | | | | | PDT | meniscus of knee, | | | | | | current | | + +--------+ + + + | POC GLUCOSE | Routin | 12/05/2014 | | Results for this | | | e | 9:50 AM | | procedure are in the | | | | PDT | | results section. | + +--------+ + + + documented in this encounter Results POC Glucose (12/05/2014 12:32 PM PDT) + +-------+ + + + | Component | Value | Ref Range | Performed | Pathologist | | | | | At | Signature | + +-------+ + + + | Glucose, | 135 | 70 - 150 mg/dL | [facility] | | | POC [...] [address] | [place] | [phone] | | [facility] | | [address] | | | - LABORATORY | | | | + + + + + | [facility] | [address] | [place], [place] | | | [facility] | | [id number] | | | - LABORATORY | | | | + + + + + POC Glucose (12/05/2014 9:50 AM PDT) + +-------+ + + + | Component | Value | Ref Range | Performed | Pathologist | | | | | At | Signature | + +-------+ + + + | Glucose, | 145 | 70 - 150 mg/dL | [facility] | | | POC | | | [facility] | | | | | | [...] + | [facility] | [address] | [place] | [phone] | | [facility] | | [address] | | | - LABORATORY | | | | + + + + + | [facility] | [address] | [place] | | | [facility] | | [id number] [place] [address] | | | - LABORATORY | | | | + + + + + documented in this encounter Visit Diagnoses + + | Diagnosis | + + | Tear of medial cartilage or meniscus of knee, current | + + documented in this encounter Administered Medications + +--------+ +--------+------+------+ | Medication Order | MAR | Action | Dose | Rate | Site | | | Action | Date | | | | + +--------+ +--------+------+------+ | fentaNYL injection 25-50 mcg | Given | 12/06/19 | 50 mcg | | | | 25-50 mcg, Intravenous, EVERY 5 | | 15 1:32 | | | | | MIN PRN, Pain, Starting Mon | | PM PDT | | | | | 12/05/14 at 1202, Maximum total | | | | | | | dose 250 mcg. PACU IV Narcotic | | | | | | | Priority: Only use fentanyl for | | | | | | | immediate post-op pain (one dose) | | | | | | | or breakthrough pain when any | | | | | | | other IV narcotics ordered have | | | | | | | been ineffective (if ordered). | | | | | | | If both morphine and | | | | | | | hydromorphone are ordered, use | | | | | | | morphine first, and use | | | | | | | hydromporphone if morphine | | | | | | | ineffective., Recovery/Phase I | | | | | | + +--------+ +--------+------+------+ +-------+ +--------+---+---+ | Given | 12/06/19 | 50 mcg | | | | | 15 1:22 | | | | | | PM PDT | | | | +-------+ +--------+---+---+ +---+---+ | | | +---+---+ + +-------+ +--------+---+---+ | HYDROmorphone (DILAUDID) | Given | 12/06/19 | 0.5 mg | | | | injection 0.2-0.5 mg 0.2-0.5 mg, | | 15 2:17 | | | | | Intravenous, EVERY 5 MIN PRN, | | PM PDT | | | | | Pain, Starting 12/05/14 at | | | | | | | 1202, Maximum total dose 4 mg. | | | | | | | PACU IV Narcotic Priority: Only | | | | | | | use fentanyl for immediate | | | | | | | post-op pain (one dose) or | | | | | | | breakthrough pain when any other | | | | | | | IV narcotics ordered have been | | | | | | | ineffective (if ordered). If | | | | | | | both morphine and hydromorphone | | | | | | | are ordered, use morphine first, | | | | | | | and use hydromporphone if | | | | | | | morphine ineffective., | | | | | | | Recovery/Phase I | | | | | | + +-------+ +--------+---+---+ +-------+ +--------+---+---+ | Given | 12/06/19 | 0.5 mg | | | | | 15 2:11 | | | | | | PM PDT | | | | +-------+ +--------+---+---+ | Given | 12/06/19 | 0.5 mg | | | | | 15 2:05 | | | | | | PM PDT | | | | +-------+ +--------+---+---+ +---+---+ | | | +---+---+ + +-------+ +-------+---+---+ | ketorolac (TORADOL) injection | Given | 12/06/19 | 15 mg | | | | 15 mg 15 mg, Intravenous, EVERY | | 15 2:34 | | | | | 6 HOURS PRN, Pain, Starting Mon | | PM PDT | | | | | 3/16/15 at 1357, For 3 days | | | | | | + +-------+ +-------+---+---+ +---+---+ | | | +---+---+ + +-------+ +--------+---+ + | lidocaine 2%-EPINEPHrine | Given | 12/06/19 | 20 mLs | | Surgical | | 1:100,000 injection PRN, | | 15 11:22 | | | Site | | Starting Fri12/05/14 at 1122, | | AM PDT | | | | | Intra-op | | | | | | + +-------+ +--------+---+ + +---+---+ | | | +---+---+ + +-------+ +------+---+---+ | morphine injection 2-8 mg 2-8 | Given | 12/06/19 | 4 mg | | | | mg, Intravenous, EVERY 2 HOURS | | 15 2:56 | | | | | PRN, Pain, Starting 12/05/14 | | PM PDT | | | | | at 1219, Slow IV push, not faster | | | | | | | than 2 mg/minute. If | | | | | | | ineffective or not tolerated, use | | | | | | | hydromorphone IV if ordered, | | | | | | | Post-op/Phase II | | | | | | + +-------+ +------+---+---+ +-------+ +------+---+---+ | Given | 12/06/19 | 2 mg | | | | | 15 1:48 | | | | | | PM PDT | | | | +-------+ +------+---+---+ +---+---+ | | | +---+---+ + +-------+ +---------+---+---+ | oxyCODONE-acetaminophen | Given | 12/06/19 | 2 | | | | (PERCOCET) 5-325 mg per tablet | | 15 2:34 | tablets | | | | 1-2 tablet 1-2 tablet, Oral, | | PM PDT | | | | | EVERY 4 HOURS PRN, Pain, Starting | | | | | | | 12/05/14 at 1219, MAX 12 | | | | | | | tabs/24hrs. If ineffective use | | | | | | | Oxycodone if ordered. If not | | | | | | | tolerated use [place] 10/325 if | | | | | | | ordered, Post-op/Phase II | | | | | | + +-------+ +---------+---+---+ +---+---+ | | | +---+---+ + +-------+ +--------+---+ + | ropivacaine (NAROPIN) 5 mg/mL | Given | 12/06/19 | 20 mLs | | Surgical | | (0.5%) injection PRN, Starting | | 15 11:55 | | | Site | | 12/05/14 at 1132, Intra-op | | AM PDT | | | | + +-------+ +--------+---+ + +---+---+ | | | +---+---+ documented in this encounter"
--- OUTSIDE RECORDS SUMMARY | ~2020-06-16 | XMS | Encounter Summary ---
Demographics + + + | Address | [address] | | | [place] [address] | + + + | Home Phone | | + + + | Preferred Language | Unknown | + + + | Marital Status | | + + + | Christian Affiliation | Unknown | + + + | Race | White | + + + | Ethnic Group | Not or | + + + Author + + + | Author | [facility] | | | and [place] | + + + | Organization | [facility] | | [...] [place], | | | | | [place] [address] | | + + + + + Care Team Providers + +------+ + | Care Site Interpreter Name | Role | Phone | + +------+ + PCP | Unavailable | + +------+ + Encounter Details +--------+ + + + + | Date | Type | Department | Care Team | Description | +--------+ + + + + | 04/20/ | Hospital | [facility] | [facility] | Knee pain, left | | 2015 | Encounter | [facility] XRAY | MD Gosia [address] [facility] | | | | | [address] [place] | [place], [place] | | | | | [place], [place] | [address] | | | | | [address] | | | | | | [phone] | | | +--------+ + + + [...] + + + +---------+ + + | celecoxib | Take 1 capsule by | 60 | 3 | 01/10/20 | | | (CELEBREX) 200 mg | mouth Daily. | capsule | | 15 | 6 | | capsule | | | | [...] +--------+ + + + | XR KNEE LEFT 4 + VW | Routin | 04/20/2015 | Knee pain, left | Results for this | | | e | 2:29 PM | | procedure are in the | | | | PDT | | results section. | + +--------+ + + + documented in this encounter Results XR Knee Left 4 + Vw (04/20/2015 2:29 PM PDT) + + | Specimen | + + | | + + + + + | Narrative | Performed At | + + + | XR KNEE LEFT 4 + VW 04/20/2015 2:19 PM HISTORY: knee pain. | [facility] | | COMPARISON: None. FINDINGS: The right knee demonstrates no acute | [facility] | | findings. There is mild medial compartment joint space loss. Tiny | [facility] | | osteophytes are observed of the patella. There is mild spurring of | - IMAGING | | the inferior patella. Bone mineralization is normal. Soft tissues are | | | unremarkable. The left knee shows no acute findings. No | | | significant degenerative changes are present. Bone mineralization is | | | normal. There is a small joint effusion. Soft tissues are | | | unremarkable. IMPRESSION - Mild degenerative changes of right | | | knee, no significant degenerative changes of left knee. Dictated | | | and Signed by: Kyle Peoples MD Electronically signed: 04/20/2015 | | | 2:40 PM | | + + + + + | Procedure Note | + + | Kiko, Rad Results In - 04/20/2015 2:43 PM PDT XR KNEE LEFT 4 + VW 04/20/2015 2:19 PM | | | | HISTORY: knee pain. | | | | COMPARISON: None. | | | | FINDINGS: | | The right knee demonstrates no acute findings. There is mild medial compartment | | joint space loss. Tiny osteophytes are observed of the patella. There is mild | | spurring of the inferior patella. Bone mineralization is normal. Soft tissues | | are unremarkable. | | | | The left knee shows no acute findings. No significant degenerative changes are | | present. Bone mineralization is normal. There is a small joint effusion. Soft | | tissues are unremarkable. | | | | IMPRESSION - | | Mild degenerative changes of right knee, no significant degenerative changes of | | left knee. | | | | Dictated and Signed by: Kyle Peoples MD | | Electronically signed: 04/20/2015 2:40 PM | + + + + + + + | Performing | Address | City/State/Zipcode | Phone Number | | Organization | | | | + + + + + | [facility] | [address] | [place] | [phone] | | [facility] | | [address] | | | - IMAGING | | | | + + + + + documented in this encounter Visit Diagnoses + + | Diagnosis | + + | Knee pain, left Pain in joint, lower leg | + + documented in this encounter"
--- OUTSIDE RECORDS SUMMARY | ~2020-06-16 | XMS | Encounter Summary ---
Demographics + + + | Address | [address] | | | [place] [address] | + + + | Home Phone | | + + + | Preferred Language | Unknown | + + + | Marital Status | | + + + | Mandaeism Affiliation | Unknown | + + + [...] [place], | | | | | [place] [address] | | + + + + + Care Team Providers + +------+ + | Care Line Appliance Assembler Name | Role | Phone | + +------+ + PCP | Unavailable | + +------+ + Encounter Details +--------+ + + + + | Date | Type | Department | Care Team | Description | +--------+ + + + + | 04/19/ | Orders Only | [facility] | [facility] | Knee pain, left | | 2014 | | ORTHOPEDIC SURGERY | MD Gosia [address] | (Primary Dx) | | | | [address] [place] | [place] | | | | | [place] | [address] | | | | | [address] | | | | | | [phone] | | | +--------+ + + + [...] Not on filedocumented as of this encounter Results XR Knee Left 4 [...] | [facility] | [address] | [place] | [phone] | | [facility] | | [address] | | | - IMAGING | | | | + + + + + documented in this encounter Visit Diagnoses + + | Diagnosis | + + | Knee pain, left - Primary Pain in joint, lower leg | + + documented in this encounter"
--- OUTSIDE RECORDS SUMMARY | ~2020-06-16 | XMS | Encounter Summary ---
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 30.0-34.9) Immune deficiency disorder Seizure Lateral epicondylitis of left elbow Lateral epicondylitis (tennis elbow), left Primary osteoarthritis of left elbow Left arm pain Decreased activities of daily living (ADL) Backache Chronic airway obstruction, not elsewhere classified Low back pain Obesity Hyperlipidemia Mixed, or nondependent drug abuse Diabetes mellitus type II, ORAL Control Severe sepsis Osteomyelitis of ankle or foot, acute, right PICC (peripherally inserted central catheter) in place Opioid overdose, accidental or unintentional, initial encounter CAYLA (acute kidney injury) Displacement of peripherally inserted central venous catheter (PICC) Cellulitis of left leg GERD (gastroesophageal reflux disease) Elevated hemoglobin A1c Chronic renal insufficiency, stage 2 (mild) Smoker - Daily Marijuana use -Weight bearing status: WBAT RLE -DVT Prophylaxis: SCDs, ambulation, heparin -PT/OT -Pain control -DC planning -Following culture results. No results yet Electronically signed by: Jsoe Nash, 11/08/2018 7:33 [facility] Bisi Bansal [facility] - 11/07/2018 12:38 PM PSTFormatting of this note might be different from the origin al. VANCOMYCIN PER PHARMACY PROTOCOL: AMS/Drug Name - vancomycin, piperacillin/tazobactam Patient: Cecilio Arias [facility] MA[facility] OR POOL/[facility]* Admit: 20:40 RELEVANT ALLERGIES: azithromycin (anaphylaxis), sulfa antibiotics (hives) 48 yrs old male patient admitted on 11/05/2018 for right foot wound. Patient is receiving v ancomycin starting on 11/05/18 for cellulitis/SSTI of right foot. Patient has a past medica l history of Adverse effect of anesthesia; Diabetes mellitus ([facility]); Diabetes mellitus type I I, ORAL Control (10/28/2011); Elevated cholesterol; Elevated hemoglobin A1c (11/07/2018); Emphy sema of lung ([facility]); GERD (gastroesophageal reflux disease); Immune deficiency disorder ([facility]) ; Osteoporosis; PONV (postoperative nausea and vomiting); Seizure ([facility]); Testosterone defici ency; and Vitamin D deficiency. Risk factors for MDR organisms include recent healthcare con tact. HPI: This is a 48 y.o. male past medical history significant for diabetes mellitus type II, COPD, recent admission for cellulitis who presents with right foot wound. Patient states h e has increased redness on his right lower johnston. He denies fevers and/or chills. Patient s tates he had a burn to his second toe in which he had osteomyelitis. He denies drainage fro m the toe. He is concerned that his cellulitis has returned. Patient states that he uses me thamphetamines (smoke) prior to this admission. Patient states that he currently is no long er in the methadone program. Review of the medical record shows that patient was admitted fo r cellulitis and evaluation osteomyelitis last month. Patient received a total of 4 weeks o f outpatient IV antibiotics (cefepime) through a PICC line. Antimicrobials - Current Antibiotic Dates of Therapy vancomycin 11/05/18 - piperacillin/tazobactam 11/05/18 - Antimicrobials - Discontinued Antibiotic Dates of Therapy cefepime July 2018(?) Historical Vancomycin dosing (previous & current encounter): 1500 mg load x1, followed by 1 250 mg q12h x1, no levels Micro/Cultures/Diagnostics: Microbiology Results (Last 14 Days by Collected Date with Culture/Sensitivity) Procedure Component Value Units Date/Time Culture, MRSA [[id number]] (Normal) Collected: 11/06/18 0500 Order Status: Completed Lab Status: Final result Updated: 11/07/18 0648 Specimen: Body Fluid from Nares Culture Negative for MRSA by chromogenic agar method Culture, Wound, Smear [[id number]] Order Status: Sent Lab Status: No result Specimen: Tissue from Foot, Left Culture, Blood [[id number]] (Normal) Collected: 11/05/182109 Order Status: Completed Lab Status: Preliminary result Updated: 11/06/18920 Specimen: Blood from Line Culture No growth: Monitored continually by instrument for 5 days Culture, Blood [[id number]] (Normal) Collected: 11/05/182107 Order Status: Completed Lab Status: Preliminary result Updated: 11/06/18910 Specimen: Blood from Peripheral Blood Culture No growth: Monitored continually by instrument for 5 days Relevant cultures from previous admits: Date Source Organisms Sensitivities 09/04/18 nares MRSA Negative for MRSA UA: not performed Admission Wt: Weight: 87.1 kg (192 lb) Current Wt: Weight: 92.9 kg (204 lb 12.9 oz) Min/Max Temp past 24 hours:Temp Av.4 C (97.5 F) Min: 36 C (96.8 F) Max: 36. 7 C (98.1 F) Estimated Creatinine Clearance: 93 mL/min (based on SCr of 1.09 mg/dL). Intake/Output Summary (Last 24 hours) at 11/07/18 1238 Last data filed at 11/07/18 1232 Gross per 24 hour Intake 1255.2 ml Output 0 ml Net 1255.2 ml Temp: [36 C (96.8 F)-36.7 C (98.1 F)] 36.7 C (98.1 F) Pulse: [72-79] 78 Resp: [15-16] 15 BP: (117-126)/(61-70) 126/70 Recent Labs Lab 11/07/18 1131 11/07/18 0549 11/06/18 0723 11/05/18210911/05/182107 WBC -- 8.0 8.7 9.3 -- CREA -- 1.09 1.20 1.18 -- LACTATE -- -- -- -- <0.4* VANCOTROUGH 11.9 -- -- -- -- PROCALCITONI -- -- -- <0.05 -- CRP -- 4.77 -- -- -- ESR -- 17* -- -- -- Imagin/14: CXR - exam performed, documentation of interpretation text pending 11/06: MRI of right foot ordered, not yet performed Date 11/05 11/06 11/07 Time of Vancomycin draw -- 1131 Vancomycin result -- 11.9 LEVEL or TROUGH -- trough Serum Creatinine 1.18 1.09 CrCl (mL/min) 88 93 Vanco load/bolus 1500 mg 1500 Vanco dose - current -- Vanco dose - new 1250 mg q12hr 1000 mg q 8hr Assessment: Vancomycin Day # 2 Other antibiotics: piperacillin/tazobactam Target Trough: 15-20 for osteomyelitis of right foot WBC: wnl; Renal: CAYLA, baseline Scr ~1; Temp: afebrile; Lactate: "low" but really wnl ; P CT:wnl; Culture: line blood pending, peripheral blood pending, wound pending, MRSA nares pen ding; VS: tachycardic in the upper 90's, normotensive, satting well on RA Renal function: UOP: need 24 hours worth of data Dosing based on actual bw of 87.1 kg Plan: 1. Re-load of 1500 mg (~17 mg/kg) IVPB x 1, then follow with maintenance vancomycin 1000 mg IVPB q8 hrs for osetomyelitis. 2. Vancomycin trough ordered for 11/08/18 @ 1230 (draw 60 minutes prior to hanging the 4th dose) 3. Serum creatinine DAILY for first 3 days, then at least every 3 days while on vancomycin. 4. Will monitor renal function, clinical status, infection markers daily with troughs and d ose adjustment as needed. Definitions: For the purpose of this protocol, "trough" means a steady state trough before the 4th dose of the initial/new dosing regimen and "level" means all other levels drawn including before the 3rd dose References: Vancomycin dosing protocol IDSA guidelines Procalcitonin Algorithm Per P&T-approved Vancomycin Dosing and Monitoring Protocol Electronically signed by: Jenelle Mane RPH 11/07/2018 12:38 Frederick Hoff MD - 11/07/2018 10:44 AM PST [facility] Hospitalist Progress Note Cecilio Arias is a 48 y.o. male ASSESSMENT and PLAN: 1. Right leg cellulitis with MRI findings of distal, plantar aspect great toe osteomyeliti s in addition to distal phalanx. This patient has history November 5 weeks of antibiotic therapy for osteomyelitis involving his great toe. At that time he was advised of need for amputation great toe for definitive therapy but declined surgery. Cultures obtained by transformer repairer in July 2018 been requested but thus for aware waiting. He reportedly had gram-positive organism sensitive to beta lactams, Serratia, and Pseudomo sacha present. The patient on admission was placed on vancomycin and Zosyn and pending further culture thi s regimen will be continued. Today the patient will be going to surgery for exploration and debridement. 2. Chronic pain Patient by history was taking 180 mg of methadone daily and on admission was placed on 80 m g twice daily. This is resulted in some significant sedation which I'm noted on exam he farrell s have the nurses. We'll reduce his dose to 40 mg 4 times daily holding for sedation. 3. Diabetes mellitus Humalog with meals was added yesterday. Will add Lantus 10 units twice daily to the sugars elevated SUBJECTIVE: She reports recent onset of swelling and redness in his leg. This is been associated with discomfort and worsening pain in his right great toe. Denies fevers or chills. Not had dr anthony from his toe. VITALS: Temp: 36.6 C (97.9 F), Pulse: 74, Resp: 16, BP: 122/61, SpO2 95 % on room air at flow r ate L/min Temp Min: 36 C (96.8 F) Max: 36.6 C (97.9 F) Weight: 87.1 kg (192 lb) Intake/Output Summary (Last 24 hours) at 11/07/18 1044 Last data filed at 11/07/18 0600 Gross per 24 hour Intake 856 ml Output 0 ml Net 856 ml PHYSICAL EXAM: Cardiovascular: Regular rate and rhythm Respiratory: Clear bilaterally Abdomen: Soft without tenderness Extremities: Redness and erythema in the mid anterior and medial tibial area down to the f oot. Redness around the great toe and redness extending to the second toe. DIAGNOSTIC STUDIES: Available data and images were reviewed personally. Significant results and findings are a ddressed here or in the Assessment and Plan. Lab Results Component Value Date HGB 10.7 (L) 11/07/2018 HCT 32.4 (L) 11/07/2018 PLT 285 11/07/2018 WBC 8.0 11/07/2018 Lab Results Component Value Date NA 134 (L) 11/07/2018 K 4.0 11/07/2018 CL 97 (L) 11/07/2018 CO2 27 11/07/2018 CREA 1.09 11/07/2018 BUN 23 (H) 11/07/2018 MG 2.0 09/05/2018 PHOS 3.3 04/02/2017 CRP 4.77 11/07/2018 ESR 17 (H) 11/07/2018 Glucose, POC Date/Time Value Ref Range Status 11/07/2018 06:59 275 (H) 70 - 109 mg/dL Final 11/06/2018 21:51 309 (H) 70 - 109 mg/dL Final 11/06/2018 16:52 275 (H) 70 - 109 mg/dL Final Glucose, POC Date/Time Value Ref Range Status 11/07/2018 06:59 275 (H) 70 - 109 mg/dL Final 11/06/2018 21:51 309 (H) 70 - 109 mg/dL Final 11/06/2018 16:52 275 (H) 70 - 109 mg/dL Final Mri Foot Right Wo Contrast Result Date: 11/06/2018 EXAM: MRI FOOT RIGHT WO CONTRAST dated 11/05/2018 12:00 AM HISTORY: osteomyelitis COMPARISO N: Radiographs dated 11/05/2017. MRI dated 08/07/2018. TECHNIQUE: Multiplanar multisequence MR imaging of the right forefoot without contrast. Imaging is performed on a 3 Shari MRI. FI NDINGS: There is a marker in place on the dorsal aspect of the great toe proximal phalanx. B ones: There is loss of normal marrow fat signal and low signal cortical bone involving the d istal and inferior aspect of the great toe distal phalanx. No evidence for fracture. There are diffuse degenerative changes throughout the forefoot and midfoot. There is no evidence for osteomyelitis involving the second digit. Soft tissues: Diffuse subcutaneous edema. No focal fluid collection to suggest abscess. No joint effusions. There is edema within the m usculature of the foot. There is a defect involving the distal and plantar surface of the g reat toe soft tissues. IMPRESSION - Findings consistent with osteomyelitis involving the dis teodoro, plantar aspect of the great toe distal phalanx. Diffuse cellulitis. No evidence for an abscess. Edema within the musculature could represent myositis or changes related to diabeti c neuropathy. Dictated and Signed by: Jed Jon MD Electronically signed: 11/06/2018 12:33 PM Xr Foot Right 3 + Vw Result Date: 11/06/2018 XR FOOT RIGHT 3 + VW 11/05/2018 9:36 PM HISTORY: FOOT WOUND. COMPARISON: Multiple priors. FI NDINGS: There is no definite evidence for osteomyelitis involving the first digit or elsewhe re. Mild degenerative changes are present of the first IP joint and the second through fifth DIP joints. Small spurs are noted of the calcaneus. Bone mineralization is normal. Mild dif fuse soft tissue swelling is present. IMPRESSION - No acute osseous findings. Mild diffuse s oft tissue swelling consistent with cellulitis. If there is high suspicion of osteomyelitis, MRI can be considered. Dictated and Signed by: Kyle Peoples MD Electronically signed: 11/06 8:47 AM Total time of approximately 25 minutes was spent with the patient and/or patient's family, and/or on the patient's floor/unit, of which more than 50% was spent counseling and/or coord ination the patient's care as outlined above. Frederick Arciniega 11/07/2018 10:44 [facility] Portions of this chart may have been created with [employer] voice recognition software. Occasi onal wrong-word or sound-alike substitutions may have occurred due to the inherent stevens itations of voice recognition software. Please read the chart carefully and recognize, using context, where these substitutions have occurred Frederick Hoff MD - 0 11/06/2018 5:40 PM PST [facility] Hospitalist Progress Note Cecilio Arias is a 48 y.o. male ASSESSMENT and PLAN: 1. Right leg cellulitis with MRI findings of distal, plantar aspect great toe osteomyeliti s in addition to distal phalanx. This patient has history November 5 weeks of antibiotic therapy for osteomyelitis involving his great toe. At that time he was advised of need for amputation great toe for definitive therapy but declined surgery. Cultures obtained by transformer repairer in July 2018 been requested but thus for aware waiting. He reportedly had gram-positive organism sensitive to beta lactams, Serratia, and Pseudomo sacha present. The patient last night on admission was placed on vancomycin and Zosyn and pending further culture disease antibodies to be continued. I've asked orthopedics to see the patient relat obed to treatment options. 2. Chronic pain Patient by history was taking 180 mg of methadone daily and I'm going to continue with Dr. Mcfarland's order of 80 mg twice a day. 3. Diabetes mellitus We will add routine dosed Humalog. SUBJECTIVE: She reports recent onset of swelling and redness in his leg. This is been associated with discomfort and worsening pain in his right great toe. Denies fevers or chills. Not had dr anthony from his toe. VITALS: Temp: 36.3 C (97.3 F), Pulse: 79, Resp: 16, BP: 117/68, SpO2 98 % on room air at flow r ate L/min Temp Min: 35.8 C (96.4 F) Max: 37.2 C (98.9 F) Weight: 87.1 kg (192 lb) Intake/Output Summary (Last 24 hours) at 11/06/18 1740 Last data filed at 11/06/18 1655 Gross per 24 hour Intake 3018 ml Output 0 ml Net 3018 ml PHYSICAL EXAM: Cardiovascular: Regular rate and rhythm Respiratory: Clear bilaterally Abdomen: Soft without tenderness Extremities: Redness and erythema in the mid anterior and medial tibial area down to the f oot. Redness around the great toe and redness extending to the second toe. DIAGNOSTIC STUDIES: Available data and images were reviewed personally. Significant results and findings are a ddressed here or in the Assessment and Plan. Lab Results Component Value Date HGB 10.6 (L) 11/06/2018 HCT 32.2 (L) 11/06/2018 PLT 278 11/06/2018 WBC 8.7 11/06/2018 Lab Results Component Value Date NA 136 11/06/2018 K 4.0 11/06/2018 CL 100 11/06/2018 CO2 27 11/06/2018 CREA 1.20 11/06/2018 BUN 18 11/06/2018 MG 2.0 09/05/2018 PHOS 3.3 04/02/2017 CRP 3.22 09/05/2018 ESR 5 09/05/2018 Glucose, POC Date/Time Value Ref Range Status 11/06/2018 16:52 275 (H) 70 - 109 mg/dL Final 11/06/2018 12:16 312 (H) 70 - 109 mg/dL Final 11/06/2018 00:37 428 (H) 70 - 109 mg/dL Final Glucose, POC Date/Time Value Ref Range Status 11/06/2018 16:52 275 (H) 70 - 109 mg/dL Final 11/06/2018 12:16 312 (H) 70 - 109 mg/dL Final 11/06/2018 00:37 428 (H) 70 - 109 mg/dL Final Mri Foot Right Wo Contrast Result Date: 11/06/2018 EXAM: MRI FOOT RIGHT WO CONTRAST dated 11/05/2018 12:00 AM HISTORY: osteomyelitis COMPARISO N: Radiographs dated 11/05/2017. MRI dated 08/07/2018. TECHNIQUE: Multiplanar multisequence MR imaging of the right forefoot without contrast. Imaging is performed on a 3 Shari MRI. FI NDINGS: There is a marker in place on the dorsal aspect of the great toe proximal phalanx. B ones: There is loss of normal marrow fat signal and low signal cortical bone involving the d istal and inferior aspect of the great toe distal phalanx. No evidence for fracture. There are diffuse degenerative changes throughout the forefoot and midfoot. There is no evidence for osteomyelitis involving the second digit. Soft tissues: Diffuse subcutaneous edema. No focal fluid collection to suggest abscess. No joint effusions. There is edema within the m usculature of the foot. There is a defect involving the distal and plantar surface of the g reat toe soft tissues. IMPRESSION - Findings consistent with osteomyelitis involving the dis teodoro, plantar aspect of the great toe distal phalanx. Diffuse cellulitis. No evidence for an abscess. Edema within the musculature could represent myositis or changes related to diabeti c neuropathy. Dictated and Signed by: Jed Jon MD Electronically signed: 11/06/2018 12:33 PM Xr Foot Right 3 + Vw Result Date: 11/06/2018 XR FOOT RIGHT 3 + VW 11/05/2018 9:36 PM HISTORY: FOOT WOUND. COMPARISON: Multiple priors. FI NDINGS: There is no definite evidence for osteomyelitis involving the first digit or elsewhe re. Mild degenerative changes are present of the first IP joint and the second through fifth DIP joints. Small spurs are noted of the calcaneus. Bone mineralization is normal. Mild dif fuse soft tissue swelling is present. IMPRESSION - No acute osseous findings. Mild diffuse s oft tissue swelling consistent with cellulitis. If there is high suspicion of osteomyelitis, MRI can be considered. Dictated and Signed by: Kyle Peoples MD Electronically signed: 11/06 8:47 AM Total time of approximately 25 minutes was spent with the patient and/or patient's family, and/or on the patient's floor/unit, of which more than 50% was spent counseling and/or coord ination the patient's care as outlined above. Frederick Arciniega 11/06/2018 17:40 [facility] Portions of this chart may have been created with [employer] voice recognition software. Occasi onal wrong-word or sound-alike substitutions may have occurred due to the inherent stevens itations of voice recognition software. Please read the chart carefully and recognize, using context, where these substitutions have occurred olph, Serjio Elise, [facility] - 11/06/2018 4:17 AM PST Retimed so new trough will be 1130 11/07. VANCOMYCIN PER PHARMACY PROTOCOL: AMS/Drug Name - vancomycin, piperacillin/tazobactam Patient: Cecilio Hillbuddy [id number] Admit: 11/05/2018 20:40 RELEVANT ALLERGIES: azithromycin (anaphylaxis), sulfa antibiotics (hives) 48 yrs old male patient admitted on 11/05/2018 for right foot wound. Patient is receiving v ancomycin starting on 11/05/18 for cellulitis/SSTI of right foot. Patient has a past medica l history of Adverse effect of anesthesia; Diabetes mellitus ([facility]); Elevated cholesterol; Em physema of lung ([facility]); GERD (gastroesophageal reflux disease); Immune deficiency disorder ([facility]); Osteoporosis; PONV (postoperative nausea and vomiting); Seizure ([facility]); Testosterone def iciency; and Vitamin D deficiency. Risk factors for MDR organisms include recent healthcare contact. HPI: This is a 48 y.o. male past medical history significant for diabetes mellitus type II, COPD, recent admission for cellulitis who presents with right foot wound. Patient states h e has increased redness on his right lower johnston. He denies fevers and/or chills. Patient s tates he had a burn to his second toe in which he had osteomyelitis. He denies drainage fro m the toe. He is concerned that his cellulitis has returned. Patient states that he uses me thamphetamines (smoke) prior to this admission. Patient states that he currently is no long er in the methadone program. Review of the medical record shows that patient was admitted fo r cellulitis and evaluation osteomyelitis last month. Patient received a total of 4 weeks o f outpatient IV antibiotics (cefepime) through a PICC line. Antimicrobials - Current Antibiotic Dates of Therapy vancomycin 11/05/18 - piperacillin/tazobactam 11/05/18 - Antimicrobials - Discontinued Antibiotic Dates of Therapy cefepime July 2018(?) Historical Vancomycin dosing (previous & current encounter): 1500 mg load x1, followed by 1 250 mg q12h x1, no levels Micro/Cultures/Diagnostics: Microbiology Results (Last 14 Days by Collected Date with Culture/Sensitivity) Procedure Component Value Units Date/Time Culture, MRSA [[id number]] Order Status: Sent Lab Status: No result Specimen: Tissue from Nares Culture, Wound, Smear [[id number]] Order Status: Sent Lab Status: No result Specimen: Tissue from Foot, Left Culture, Blood [[id number]] Collected: 11/05/182109 Order Status: Sent Lab Status: In process Updated: 11/05/182117 Specimen: Blood from Line Culture, Blood [[id number]] Collected: 11/05/182107 Order Status: Sent Lab Status: In process Updated: 11/05/182107 Specimen: Blood from Peripheral Blood Relevant cultures from previous admits: Date Source Organisms Sensitivities 09/04/18 nares MRSA Negative for MRSA UA: not performed Admission Wt: Weight: 87.1 kg (192 lb) Current Wt: Weight: 87.1 kg (192 lb) Min/Max Temp past 24 hours:Temp Av.1 C (98.8 F) Min: 37.1 C (98.7 F) Max: 3 7.2 C (98.9 F) Estimated Creatinine Clearance: 88 mL/min (based on SCr of 1.18 mg/dL). Intake/Output Summary (Last 24 hours) at 11/06/18 0451 Last data filed at 11/05/18 2221 Gross per 24 hour Intake 1050 ml Output 0 ml Net 1050 ml Temp: [37.1 C (98.7 F)-37.2 C (98.9 F)] 37.1 C (98.7 F) Pulse: [84-112] 96 Resp: [14-18] 14 BP: (114-121)/(58-74) 119/60 Recent Labs Lab 11/05/18 2110 11/05/18 2108 WBC 9.3 -- CREA 1.18 -- LACTATE -- <0.4* PROCALCITONI <0.05 -- Imagin/14: CXR - exam performed, documentation of interpretation text pending 11/06: MRI of right foot ordered, not yet performed Date 11/05 11/06 11/07 Time of Vancomycin draw -- ~0930 Vancomycin result -- due LEVEL or TROUGH -- trough Serum Creatinine 1.18 CrCl (mL/min) 88 Vanco load/bolus 1500 mg Vanco dose - current -- Vanco dose - new 1250 mg q12hr Assessment: Vancomycin Day # 1 Other antibiotics: piperacillin/tazobactam Target Trough: 13-17 mcg/mL for cellulitis/SSTI of right foot WBC: wnl; Renal: CAYLA, baseline Scr ~1; Temp: afebrile; Lactate: "low" but really wnl ; P CT:wnl; Culture: line blood pending, peripheral blood pending, wound pending, MRSA nares pen ding; VS: tachycardic in the upper 90's, normotensive, satting well on RA Renal function: UOP: need 24 hours worth of data Dosing based on actual bw of 87.1 kg Plan: 1. Vancomycin load of 1500 mg (~17 mg/kg) IVPB x 1 given on 11/05/18 @ 2221, followed by brannon campos vancomycin 1250 mg IVPB q12h 2. Vancomycin trough ordered for 11/07/18 @ 0930 (draw 60 minutes prior to hanging the 4th dose) 3. Serum creatinine DAILY for first 3 days, then at least every 3 days while on vancomycin. 4. Will monitor renal function, clinical status, infection markers daily with troughs and d ose adjustment as needed. Definitions: For the purpose of this protocol, "trough" means a steady state trough before the 4th dose of the initial/new dosing regimen and "level" means all other levels drawn including before the 3rd dose References: Vancomycin dosing protocol IDSA guidelines Procalcitonin Algorithm Per P&T-approved Vancomycin Dosing and Monitoring Protocol Electronically signed by: Marco Lim, Loyd 11/06/2018 4:51 Althea Campo RN - 11/06/2018 12:15 AM PSTArrived to room from ED via stretcher at 0000, scooted self to bed fr om stretcher. Pt states he has his pain meds with him. Instructed him to turn meds over to n urse or have spouse remove it from the roomElectronically signed by Althea Davis, RN at 1:55 AM PSTdocumented in this encounter H&P Notes Jose Nash MD - 11/07/2018 8:30 AM PSTSURGICAL INTERIM HISTORY & PHYSICAL UPDATE Pt. Name/Age/: Cecilio Zimmerman Avlonitis 48 y.o. 1970 Date of admission: 11/05/2018 The current H&P was reviewed. The patient [...] answered. Consent was obtained. Electronically signed by: Jose Nash MD, 11/07/2018 8:30 [facility] aad, Loc Lamar MD - 11/06/2018 5:43 PM PST [facility] ORTHOPAEDIC CONSULT Pt. Name/Age/: Cecilio Arias 48 y.o. 1970 Primary Care Physician: No Physician on file Impression: 1. Right great toe distal phalanx osteomyelitis 2. Previous failed course of 4 weeks of IV antibiotics 3. Cellulitis Recommendations: 1. Had extensive discussion with patient- he's extremely reluctant to have an amputation 2. Will plan on bone biopsy tomorrow in OR to better target antibiotics 3. Will follow cellulitis over the weekend 4. Discussed with the patient that if his cellulitis doesn't improve, he will need amputati on sooner rather than later. Chief Complaint/Reason for Visit: Foot Wound (bilateral) History of Present Illness: The patient is a pleasant 48 y.o. male who presents with a history of diabetes and a right great toe infection. This was previously treated by Dr. Ruiz. He had a bone biopsy perform ed in July and received roughly 4 weeks of IV antibiotics. The patient reports that his last day was 09/09/18. His PICC line was pulled out partially. It was removed, he reports be ing offended at the visit and left before a new one was placed. The notes state that he was seen at that time and was sedated but denied taking more than his normal methadone. He denie d any other narcotic use. He denied injecting anything other than antibiotics into the PICC line. He was given Narcan and improved at that time. He left AMA and did not receive any oth er treatment at that time. He came into the hospital because he started having redness go up his leg. This was diagnos ed as cellulitis by the medical team. He was started on Vancomycin and Zosyn. Past Medical History: Past Medical History: Diagnosis Date Adverse effect of anesthesia Slow to wake up Diabetes mellitus (HCC) Elevated cholesterol Emphysema of lung (HCC) GERD (gastroesophageal reflux disease) Immune deficiency disorder (HCC) Lab results placed in chart regarding [id number] Phenotype. Osteoporosis PONV (postoperative nausea and vomiting) Seizure (HCC) Testosterone deficiency Vitamin D deficiency Past Surgical History: Procedure Laterality Date CARPAL TUNNEL RELEASE Left 05/14/2017 Procedure: Left Elbow Joint Exploration and Bilateral Shoulder Injection; Surgeon: Nirmal Wood MD; Location: [facility] MAIN OR ELBOW SURGERY Left 11/15/2015 Procedure: Left Lateral Epicondylar Release & Injection of Left Elbow Joint ; Surgeon: Janet Wood MD; Location: [facility] MAIN OR KNEE ARTHROSCOPY Right 12/05/2014 Procedure: Right Knee Arthroscopy with Partial Medial Menisectomy and Medial- Femoral Tay droplasty; Surgeon: Marty Wood MD; Location: [facility] MAIN OR KNEE ARTHROSCOPY Right 02/11/2018 Procedure: Right Knee Arthroscopy & bilateral Elbow Injections, Lateral Tibial Chondroplas ty, Medial Femoral Chondroplasty, Partial medial meniscectomy; Surgeon: Marty Wood MD; Location: [facility] MAIN OR MANDIBLE SURGERY spinal cord injury Allergies: Allergies Allergen Reactions Azithromycin Anaphylaxis Codeine Hives Hydrocodone Hives Sulfa Antibiotics Hives Current Medications: Current Facility-Administered Medications Medication Dose Route Frequency Provider Last Rate Last Dose acetaminophen (TYLENOL) tablet 650 mg 650 mg Oral Q4H PRN Bobby Mcfarland MD aspirin EC tablet 325 mg 325 mg Oral Daily Bobby Mcfarland MD 325 mg at 11/06/18 0952 atorvaSTATin (LIPITOR) tablet 40 mg 40 mg Oral Daily Bobby Mcfarland MD 40 mg at 10/23 02/07 0952 cholecalciferol (VITAMIN D-3) tablet 2,000 Units 2,000 Units Oral Daily Bobby Mcfarland MD 2,000 Units at 11/06/18 0952 dextrose 50% injection 12.5 g 12.5 g Intravenous PRN Bobby Mcfarland MD gabapentin (NEURONTIN) capsule 600 mg 600 mg Oral TID Bobby Mcfarland MD 600 mg at 1431 heparin 5,000 units/mL injection 5,000 Units 5,000 Units Subcutaneous 2 times per day Bobby Mcfarland MD 5,000 Units at 11/06/18 0951 insulin lispro (humaLOG KWIKPEN) injection (pen) 0-12 Units 0-12 Units Subcutaneous 4x Daily WC and HS Bobby Mcfarland MD 8 Units at 11/06/18 1225 lactated ringers (LR) infusion Intravenous Continuous Bobby Mcfarland MD 100 mL/hr at 11/06/18 0113 methadone tablet 80 mg 80 mg Oral 2 times per day Bobby Mcfarland MD 80 mg at 9 0952 ondansetron (ZOFRAN ODT) disintegrating tablet 4 mg 4 mg Oral Q6H PRN Krystal Bearden pantoprazole (PROTONIX) DR tablet 40 mg 40 mg Oral QAM AC Bobby Mcfarland MD 40 mg at 11/06/18 0806 piperacillin-tazobactam (ZOSYN) 3.375 g in sodium chloride 0.9% 100 mL IVPB 3.375 g In travenous Q8H Bobby Mcfarland MD 25 mL/hr at 11/06/18 1040 3.375 g at 11/06/18 1040 tamsulosin (FLOMAX) capsule 0.4 mg 0.4 mg Oral Daily after breakfast Bobby Mcfarland MD 0.4 mg at 11/06/18 0952 vancomycin 1,250 mg in sodium chloride 0.9% 250 mL IVPB 15 mg/kg Intravenous Q12H Mac ael Stan Weston MD 175 mL/hr at 11/06/18 1227 1,250 mg at 11/06/18 1227 vancomycin per pharmacy Other Pharmacy Consult Don Loving MD Family History: History reviewed. No pertinent family history. Social History: Social History Social History Marital status: Single [...] No narrative on file Review of Systems 10 point review of systems otherwise negative Admission Weight: Weight: 87.1 kg (192 lb) BMI: Body mass index is 27.78 kg/m. Physical Examination: BP 117/68 | Pulse 79 | Temp 36.3 C (97.3 F) (Oral) | Resp 16 | Ht 1.829 m (6') | W t 92.9 kg (204 lb 12.9 oz) | SpO2 98% | BMI 27.78 kg/m General: Alert, oriented, no acute distress HEENT: Normocephalic, atraumatic Cardiovascular: Regular rate and rhythm Respiratory: Breathing normally at a regular rate Right lower extremity: Sensation intact to light touch in the first dorsal webspace, medial, lateral, dorsal and p lantar foot. Dorsalis pedis and posterior tibial pulses 2+. Able to plantarflex, dorsiflex, juanis and invert the ankle. His skin over the great toe is closed. He does have an irregular area of skin over the toe. He reports that this was where his previous ulcer was. It appears to have largely healed in that area. He reports sensation intact on both sides of the toe. He does have a blister and redness around the second toe. He reports this happened after he fell asleep close to a furnace. Diagnostic Studies: Imaging MRI and x-rays reviewed. The x-rays are relatively normal with some degenerative changes th roughout the foot. The MRI shows edema in the distal phalanx consistent with infection. This was read as such by the radiologist as well. I didn't see great evidence that it extended i nto the proximal phalanx. There was no abscess. Labs- Lab Results Component Value Date NA 136 11/06/2018 K 4.0 11/06/2018 CL 100 11/06/2018 CO2 27 11/06/2018 ANIONGAP 9 11/06/2018 GLU 259 (H) 11/06/2018 BUN 18 11/06/2018 CREA 1.20 11/06/2018 GFRNONAA >60 11/06/2018 CALCIUM 8.6 11/06/2018 ALBUMIN 3.4 11/06/2018 BILITOT 0.5 11/05/2018 TOTALPROTEIN 6.8 11/05/2018 AST 27 11/05/2018 ALT 21 11/05/2018 ALKPHOS 110 11/05/2018 WBC 8.7 11/06/2018 HGB 10.6 (L) 11/06/2018 HCT 32.2 (L) 11/06/2018 MCV 87.7 11/06/2018 PLT 278 11/06/2018 ESR 5 09/05/2018 CRP 3.22 09/05/2018 INR 1.1 09/04/2018 I had a long conversation with the patient about the risks of trying to treat the toe witho ut amputation. This includes the possibility of continued spread of the osteomyelitis. He ma y have cellulitis we will not be able to control until it is amputated. He is adamant that barry cox does not want it amputated. We will plan on a bone biopsy tomorrow in the operating room. This will be under anesthesia. I informed him that I thought it had a high chance of failing to clear the infection with a second round of antibiotics. He would not agree to an amputat ion. Portions of this report were transcribed using voice recognition software. Every effort wa s made to ensure accuracy; however, inadvertent computerized client service administrator errors may be pre sent. I appreciate the opportunity to help with the management of this patient. Jose Nash MD Santhosh Cool MD - 11/05/2018 10:59 PM PSTFormatting of this note might be different from the [facility] SERVICES HISTORY AND PHYSICAL Pt. Name/Age/: Cecilio Arias 48 y.o. 1970 Date of admission: 11/05/2018 Admitting Physician: Bobby Mcfarland MD Primary Care Provider: No Physician on file CHIEF COMPLAINT: Left foot wound HISTORY OF PRESENT ILLNESS: This is a 48 y.o. male past medical history significant for diabetes mellitus type II, COPD , recent admission for cellulitis who presents with left foot wound. Patient states he Has increased redness on his left lower johnston. He denies fevers and/or chills. Patient states he had a burn to his second toe in which he had osteomyelitis. He denies drainage from the toe. He is concerned that his cellulitis has returned. Patient states that he uses methamphetamines (smoke) prior to this admission. Patient stat es that he currently is no longer in the methadone program. Review of the medical record shows that patient was admitted for cellulitis and evaluation osteomyelitis last month. Patient received a total of 4 weeks of outpatient IV antibiotics through a PICC line. PAST MEDICAL and SURGICAL HISTORY: Past Medical History: Diagnosis Date Adverse effect of anesthesia Slow to wake up Diabetes mellitus (HCC) Elevated cholesterol Emphysema of lung (HCC) GERD (gastroesophageal reflux disease) Immune deficiency disorder (HCC) Lab results placed in chart regarding [id number] Phenotype. Osteoporosis PONV (postoperative nausea and vomiting) Seizure (HCC) Testosterone deficiency Vitamin D deficiency Past Surgical History: Procedure Laterality Date CARPAL TUNNEL RELEASE Left 05/14/2017 Procedure: Left Elbow Joint Exploration and Bilateral Shoulder Injection; Surgeon: Nirmal Wood MD; Location: [facility] MAIN OR ELBOW SURGERY Left 11/15/2015 Procedure: Left Lateral Epicondylar Release & Injection of Left Elbow Joint ; Surgeon: Janet Wood MD; Location: [facility] MAIN OR KNEE ARTHROSCOPY Right 12/05/2014 Procedure: Right Knee Arthroscopy with Partial Medial Menisectomy and Medial- Femoral Tay droplasty; Surgeon: Marty Wood MD; Location: [facility] MAIN OR KNEE ARTHROSCOPY Right 02/11/2018 Procedure: Right Knee Arthroscopy & bilateral Elbow Injections, Lateral Tibial Chondroplas ty, Medial Femoral Chondroplasty, Partial medial meniscectomy; Surgeon: Marty Wood MD; Location: [facility] MAIN OR MANDIBLE SURGERY spinal cord injury FAMILY HISTORY: family history is not on file. SOCIAL HISTORY: reports that he has been smoking Cigarettes and E-Cigarettes. He has a 10.00 pack-year sm oking history. He has never used smokeless tobacco. He reports that he uses drugs, including Marijuana, about 7 times per week. He reports that he does not drink alcohol. REVIEW OF SYSTEMS: All systems were reviewed and were negative unless otherwise stated in HPI HOME MEDICATIONS: Previous Medications AMPHETAMINE-DEXTROAMPHETAMINE (ADDERALL XR) 30 MG 24 HR CAPSULE take 1 capsule by mouth once daily ASPIRIN 325 MG TABLET Take 1 tablet by mouth Daily. ATORVASTATIN (LIPITOR) 40 MG TABLET Take 40 mg by mouth Daily. B-D 3CC LUER-JENNYFER SYR 24AC0-7/2 22G X 1-1/2" 3 ML MISC use to INJECT TESTOSTERONE TWICE A WEEK CHOLECALCIFEROL (VITAMIN D-3) 1,000 UNITS CAPSULE Take 1 capsule by mouth Daily. CLOMIPHENE (CLOMID) 50 MG TABLET take 1/2 tablet by mouth once daily FRIDAY THROUGH Fri. STOP T... (REFER TO PRESCRIPTION NOTES). CYCLOBENZAPRINE (FLEXERIL) 10 MG TABLET 1 tablet orally 3 times per day DAPAGLIFLOZIN (FARXIGA) 10 MG TABLET Take 1 tablet by mouth Daily. ERGOCALCIFEROL (VITAMIN D-2) 50,000 UNITS CAPSULE take 1 capsule by mouth weekly GABAPENTIN (NEURONTIN) 600 MG TABLET take 1 tablet by mouth three times a day GLUCOSE BLOOD TEST STRIPS (TERRI CONTOUR TEST) STRIP Use as dir LISINOPRIL (PRINIVIL, ZESTRIL) 10 MG TABLET METFORMIN (GLUCOPHAGE) 1000 MG TABLET Take 1,000 mg by mouth 2 times daily (with breakf ast & dinner). METHADONE 10 MG TABLET Take 80 mg by mouth 2 times daily. OMEPRAZOLE (PRILOSEC) 20 MG CAPSULE Take 20 mg by mouth every morning (before breakfast ). OXYCODONE (ROXICODONE) 30 MG IMMEDIATE RELEASE TABLET Take 1 tablet by mouth every 6 ho urs as needed for Pain. SENNA LAX 8.6 MG TABLET take 4 tablets by mouth UP TO 2 TIMES A DAY NEEDED FOR CONST IPATION TAMSULOSIN (FLOMAX) 0.4 MG CAPS Take 0.4 mg by mouth daily (after breakfast). VENTOLIN HFA 108 (90 BASE) MCG/ACT INHALER ALLERGIES: Allergies Allergen Reactions Azithromycin Anaphylaxis Codeine Hives Hydrocodone Hives Sulfa Antibiotics Hives VITAL SIGNS: Temp: 37.2 C (98.9 F), Pulse: 89, Resp: 18, BP: 118/62, SpO2 98 % on room air at flow r ate L/min Temp Min: 37.2 C (98.9 F) Max: 37.2 C (98.9 F) Weight: 87.1 kg (192 lb) PHYSICAL EXAMINATION: Gen Edgardo - alert, cooperative and no distress Head - Normocephalic, without obvious abnormality, atraumatic Eyes - PERRL, conjunctiva/corneas clear, EOM's intact both eyes ENT - mucous membranes moist Neck - supple Lungs - CTA bilat Heart - normal rate, rhythm w/o m/r/g Abdomen - obese Normoactive bowel sounds, non-tender non-distended Extremities - no peripheral edema, no clubbing or cyanosis Skin - erythema over 2 nd left toe, erythema on johnston. Neurologic - Alert and oriented x 3. CN II-XII intact. strength- 5/5 throughout Ref lexes 2+ bilateral biceps, triceps, & patellar DIAGNOSTIC STUDIES: Available data and images were reviewed personally. Significant results and findings are a ddressed here or in the Assessment and Plan. Lab Results Component Value Date HGB 10.8 (L) 11/05/2018 HCT 32.6 (L) 11/05/2018 PLT 281 11/05/2018 WBC 9.3 11/05/2018 Lab Results Component Value Date NA 137 11/05/2018 K 3.8 11/05/2018 CL 98 11/05/2018 CO2 25 11/05/2018 CREA 1.18 11/05/2018 BUN 16 11/05/2018 MG 2.0 09/05/2018 PHOS 3.3 04/02/2017 CRP 3.22 09/05/2018 ESR 5 09/05/2018 Glucose, POC Date/Time Value Ref Range Status 09/07/2018 11:27 322 (H) 70 - 109 mg/dL Final 09/07/2018 06:04 242 (H) 70 - 109 mg/dL Final 09/06/2018 20:26 335 (H) 70 - 109 mg/dL Final No results found. EKG: Reviewed independently by me. The tracing shows ASSESSMENT and PLAN: Active Hospital Problems Diagnosis Cellulitis of left leg Resolved Hospital Problems Diagnosis No resolved problems to display. Cellulitis of the left leg: Patient previously treated with long-term outpatient IV antibio tics with cefepime. Follow-up on wound culture and blood cultures. Continue Vanco and Zosy n . Patient has a history of osteomyelitis of the 2nd toe. We'll repeat MR of left foot Diabetes mellitus type II: We'll hold oral hypoglycemics. Will give sliding scale insulin Hyperlipidemia IV fluids. Check electrolytes daily. we'll give diabetic diet DVT Prophylaxis Heparin SC Code Status Full Code CMS Documentation I certify that this admission will likely be greater than 2 midnights and posthospital disc harge will be to home Total of 74 minutes were required to complete the admission process. Electronically signed by: Bobby Mcfarland MD 11/05/2018 22:59 [facility] documented in this enc ounter Consult Notes Jose Nash MD - 11/06/2018 5:43 PM PSTFormatting of this note might be dif ferent from the original. [facility] ORTHOPAEDIC CONSULT Pt. Name/Age/: Cecilio Arias 48 y.o. 1970 Primary Care Physician: No Physician on file Impression: 1. Right great toe distal phalanx osteomyelitis 2. Previous failed course of 4 weeks of IV antibiotics 3. Cellulitis Recommendations: 1. Had extensive discussion with patient- he's extremely reluctant to have an amputation 2. Will plan on bone biopsy tomorrow in OR to better target antibiotics 3. Will follow cellulitis over the weekend 4. Discussed with the patient that if his cellulitis doesn't improve, he will need amputati on sooner rather than later. Chief Complaint/Reason for Visit: Foot Wound (bilateral) History of Present Illness: The patient is a pleasant 48 y.o. male who presents with a history of diabetes and a right great toe infection. This was previously treated by Dr. Ruiz. He had a bone biopsy perform ed in July and received roughly 4 weeks of IV antibiotics. The patient reports that his last day was 09/09/18. His PICC line was pulled out partially. It was removed, he reports be ing offended at the visit and left before a new one was placed. The notes state that he was seen at that time and was sedated but denied taking more than his normal methadone. He denie d any other narcotic use. He denied injecting anything other than antibiotics into the PICC line. He was given Narcan and improved at that time. He left AMA and did not receive any oth er treatment at that time. He came into the hospital because he started having redness go up his leg. This was diagnos ed as cellulitis by the medical team. He was started on Vancomycin and Zosyn. Past Medical History: Past Medical History: Diagnosis Date Adverse effect of anesthesia Slow to wake up Diabetes mellitus (HCC) Elevated cholesterol Emphysema of lung (HCC) GERD (gastroesophageal reflux disease) Immune deficiency disorder (HCC) Lab results placed in chart regarding [id number] Phenotype. Osteoporosis PONV (postoperative nausea and vomiting) Seizure (HCC) Testosterone deficiency Vitamin D deficiency Past Surgical History: Procedure Laterality Date CARPAL TUNNEL RELEASE Left 05/14/2017 Procedure: Left Elbow Joint Exploration and Bilateral Shoulder Injection; Surgeon: Nirmal Wood MD; Location: [facility] MAIN OR ELBOW SURGERY Left 11/15/2015 Procedure: Left Lateral Epicondylar Release & Injection of Left Elbow Joint ; Surgeon: Janet Wood MD; Location: [facility] MAIN OR KNEE ARTHROSCOPY Right 12/05/2014 Procedure: Right Knee Arthroscopy with Partial Medial Menisectomy and Medial- Femoral Tay droplasty; Surgeon: Marty Wood MD; Location: [facility] MAIN OR KNEE ARTHROSCOPY Right 02/11/2018 Procedure: Right Knee Arthroscopy & bilateral Elbow Injections, Lateral Tibial Chondroplas ty, Medial Femoral Chondroplasty, Partial medial meniscectomy; Surgeon: Marty Wood MD; Location: [facility] MAIN OR MANDIBLE SURGERY spinal cord injury Allergies: Allergies Allergen Reactions Azithromycin Anaphylaxis Codeine Hives Hydrocodone Hives Sulfa Antibiotics Hives Current Medications: Current Facility-Administered Medications Medication Dose Route Frequency Provider Last Rate Last Dose acetaminophen (TYLENOL) tablet 650 mg 650 mg Oral Q4H PRN Bobby Mcfarland MD aspirin EC tablet 325 mg 325 mg Oral Daily Bobby Mcfarland MD 325 mg at 11/06/18 0952 atorvaSTATin (LIPITOR) tablet 40 mg 40 mg Oral Daily Bobby Mcfarland MD 40 mg at 10/23 02/07 0952 cholecalciferol (VITAMIN D-3) tablet 2,000 Units 2,000 Units Oral Daily Bobby Mcfarland MD 2,000 Units at 11/06/18 0952 dextrose 50% injection 12.5 g 12.5 g Intravenous PRN Bobby Mcfarland MD gabapentin (NEURONTIN) capsule 600 mg 600 mg Oral TID Bobby Mcfarland MD 600 mg at 1431 heparin 5,000 units/mL injection 5,000 Units 5,000 Units Subcutaneous 2 times per day Bobby Mcfarland MD 5,000 Units at 11/06/18 0951 insulin lispro (humaLOG KWIKPEN) injection (pen) 0-12 Units 0-12 Units Subcutaneous 4x Daily WC and HS Bobby Mcfarland MD 8 Units at 11/06/18 1225 lactated ringers (LR) infusion Intravenous Continuous Bobby Mcfaralnd MD 100 mL/hr at 11/06/18 0113 methadone tablet 80 mg 80 mg Oral 2 times per day Bobby Mcfarland MD 80 mg at 9 0952 ondansetron (ZOFRAN ODT) disintegrating tablet 4 mg 4 mg Oral Q6H PRN Krystal Bearden pantoprazole (PROTONIX) DR tablet 40 mg 40 mg Oral QAM AC Bobby Mcfarland MD 40 mg at 11/06/18 0806 piperacillin-tazobactam (ZOSYN) 3.375 g in sodium chloride 0.9% 100 mL IVPB 3.375 g In travenous Q8H Bobby Mcfarland MD 25 mL/hr at 11/06/18 1040 3.375 g at 11/06/18 1040 tamsulosin (FLOMAX) capsule 0.4 mg 0.4 mg Oral Daily after breakfast Bobby Mcfarland MD 0.4 mg at 11/06/18 0952 vancomycin 1,250 mg in sodium chloride 0.9% 250 mL IVPB 15 mg/kg Intravenous Q12H [facility] ael Stan Weston MD 175 mL/hr at 11/06/18 1227 1,250 mg at 11/06/18 1227 vancomycin per pharmacy Other Pharmacy Consult Don Loving MD Family History: History reviewed. No pertinent family history. Social History: Social History Social History Marital status: Single [...] No narrative on file Review of Systems 10 point review of systems otherwise negative Admission Weight: Weight: 87.1 kg (192 lb) BMI: Body mass index is 27.78 kg/m. Physical Examination: BP 117/68 | Pulse 79 | Temp 36.3 C (97.3 F) (Oral) | Resp 16 | Ht 1.829 m (6') | W t 92.9 kg (204 lb 12.9 oz) | SpO2 98% | BMI 27.78 kg/m General: Alert, oriented, no acute distress HEENT: Normocephalic, atraumatic Cardiovascular: Regular rate and rhythm Respiratory: Breathing normally at a regular rate Right lower extremity: Sensation intact to light touch in the first dorsal webspace, medial, lateral, dorsal and p lantar foot. Dorsalis pedis and posterior tibial pulses 2+. Able to plantarflex, dorsiflex, juanis and invert the ankle. His skin over the great toe is closed. He does have an irregular area of skin over the toe. He reports that this was where his previous ulcer was. It appears to have largely healed in that area. He reports sensation intact on both sides of the toe. He does have a blister and redness around the second toe. He reports this happened after he fell asleep close to a furnace. Diagnostic Studies: Imaging MRI and x-rays reviewed. The x-rays are relatively normal with some degenerative changes th roughout the foot. The MRI shows edema in the distal phalanx consistent with infection. This was read as such by the radiologist as well. I didn't see great evidence that it extended i nto the proximal phalanx. There was no abscess. Labs- Lab Results Component Value Date NA 136 11/06/2018 K 4.0 11/06/2018 CL 100 11/06/2018 CO2 27 11/06/2018 ANIONGAP 9 11/06/2018 GLU 259 (H) 11/06/2018 BUN 18 11/06/2018 CREA 1.20 11/06/2018 GFRNONAA >60 11/06/2018 CALCIUM 8.6 11/06/2018 ALBUMIN 3.4 11/06/2018 BILITOT 0.5 11/05/2018 TOTALPROTEIN 6.8 11/05/2018 AST 27 11/05/2018 ALT 21 11/05/2018 ALKPHOS 110 11/05/2018 WBC 8.7 11/06/2018 HGB 10.6 (L) 11/06/2018 HCT 32.2 (L) 11/06/2018 MCV 87.7 11/06/2018 PLT 278 11/06/2018 ESR 5 09/05/2018 CRP 3.22 09/05/2018 INR 1.1 09/04/2018 I had a long conversation with the patient about the risks of trying to treat the toe witho ut amputation. This includes the possibility of continued spread of the osteomyelitis. He ma y have cellulitis we will not be able to control until it is amputated. He is adamant that barry cox does not want it amputated. We will plan on a bone biopsy tomorrow in the operating room. This will be under anesthesia. I informed him that I thought it had a high chance of failing to clear the infection with a second round of antibiotics. He would not agree to an amputat ion. Portions of this report were transcribed using voice recognition software. Every effort wa s made to ensure accuracy; however, inadvertent computerized client service administrator errors may be pre sent. I appreciate the opportunity to help with the management of this patient. Jose Nash MD documented in this encounter ED Notes Mansoor Zimmerman RN - 11/05/2018 8:44 PM PSTPt has bilateral wounds to his feet for months. Pt has been off his diabetic medications for 1.5 months. on Loving MD - 11/05/2018 8:42 PM PSTFormatting of t his note might be different from the original. [facility] Emergency Department Encounter Note [address] [place] [id number] PCP:No Physician on file [phone] CHIEF COMPLAINT: Chief Complaint Patient presents with Foot Wound bilateral ED Room: ED09/ED09 HPI Cecilio [facility]as is a 48 y.o. male who presents to the Emergency Department with right lower extremity erythema. Patient has been noticing increased redness and pain of his righ t lower extremity for the past 4 days. Endorse some chills but no fevers. He used meth at 4:30 PM. He has a history of ostomy mellitus of his right lower extremity that was treated with cefepime last year. PAST MEDICAL & SURGICAL HISTORY Past Medical History: Diagnosis Date Adverse effect of anesthesia Slow to wake up Diabetes mellitus (HCC) Elevated cholesterol Emphysema of lung (HCC) GERD (gastroesophageal reflux disease) Immune deficiency disorder (HCC) Lab results placed in chart regarding [id number] Phenotype. Osteoporosis PONV (postoperative nausea and vomiting) Seizure (HCC) Testosterone deficiency Vitamin D deficiency Past Surgical History: Procedure Laterality Date CARPAL TUNNEL RELEASE Left 05/14/2017 Procedure: Left Elbow Joint Exploration and Bilateral Shoulder Injection; Surgeon: Nirmal Wood MD; Location: [facility] MAIN OR ELBOW SURGERY Left 11/15/2015 Procedure: Left Lateral Epicondylar Release & Injection of Left Elbow Joint ; Surgeon: Janet Wodo MD; Location: [facility] MAIN OR KNEE ARTHROSCOPY Right 12/05/2014 Procedure: Right Knee Arthroscopy with Partial Medial Menisectomy and Medial- Femoral Tay droplasty; Surgeon: Marty Wood MD; Location: [facility] MAIN OR KNEE ARTHROSCOPY Right 02/11/2018 Procedure: Right Knee Arthroscopy & bilateral Elbow Injections, Lateral Tibial Chondroplas ty, Medial Femoral Chondroplasty, Partial medial meniscectomy; Surgeon: Marty Wood MD; Location: [facility] MAIN OR MANDIBLE SURGERY spinal cord injury CURRENT MEDICATIONS Previous Medications AMPHETAMINE-DEXTROAMPHETAMINE (ADDERALL XR) 30 MG 24 HR CAPSULE take 1 capsule by mouth once daily ASPIRIN 325 MG TABLET Take 1 tablet by mouth Daily. ATORVASTATIN (LIPITOR) 40 MG TABLET Take 40 mg by mouth Daily. B-D 3CC LUER-JENNYFER SYR 41UT7-9/2 22G X 1-1/2" 3 ML MISC use to INJECT TESTOSTERONE TWICE A WEEK CHOLECALCIFEROL (VITAMIN D-3) 1,000 UNITS CAPSULE Take 1 capsule by mouth Daily. CLOMIPHENE (CLOMID) 50 MG TABLET take 1/2 tablet by mouth once daily FRIDAY THROUGH Fri. STOP T... (REFER TO PRESCRIPTION NOTES). CYCLOBENZAPRINE (FLEXERIL) 10 MG TABLET 1 tablet orally 3 times per day DAPAGLIFLOZIN (FARXIGA) 10 MG TABLET Take 1 tablet by mouth Daily. ERGOCALCIFEROL (VITAMIN D-2) 50,000 UNITS CAPSULE take 1 capsule by mouth weekly GABAPENTIN (NEURONTIN) 600 MG TABLET take 1 tablet by mouth three times a day GLUCOSE BLOOD TEST STRIPS (TERRI CONTOUR TEST) STRIP Use as dir LISINOPRIL (PRINIVIL, ZESTRIL) 10 MG TABLET METFORMIN (GLUCOPHAGE) 1000 MG TABLET Take 1,000 mg by mouth 2 times daily (with breakf ast & dinner). METHADONE 10 MG TABLET Take 80 mg by mouth 2 times daily. OMEPRAZOLE (PRILOSEC) 20 MG CAPSULE Take 20 mg by mouth every morning (before breakfast ). OXYCODONE (ROXICODONE) 30 MG IMMEDIATE RELEASE TABLET Take 1 tablet by mouth every 6 ho urs as needed for Pain. SENNA LAX 8.6 MG TABLET take 4 tablets by mouth UP TO 2 TIMES A DAY NEEDED FOR CONST IPATION TAMSULOSIN (FLOMAX) 0.4 MG CAPS Take 0.4 mg by mouth daily (after breakfast). VENTOLIN HFA 108 (90 BASE) MCG/ACT INHALER ALLERGIES Allergies Allergen Reactions Azithromycin Anaphylaxis Codeine Hives Hydrocodone Hives Sulfa Antibiotics Hives FAMILY AND SOCIAL HISTORY History reviewed. No pertinent family history. Social History Social History Marital status: Single Spouse name: N/A Number of children: N/A Years of education: N/A Social History Main Topics Smoking status: Current Every Day Smoker Packs/day: 0.50 Years: 20.00 Types: Cigarettes, E-Cigarettes Smokeless tobacco: Never Used Alcohol use No Drug use: Yes Frequency: 7.0 times per week Types: Marijuana Sexual activity: Not Asked Other Topics Concern None Social History Narrative None REVIEW OF SYSTEMS As in history of present illness. A 10 system review was otherwise negative. PHYSICAL EXAM VITAL SIGNS: (first vital signs):Temp: 37.2 C (98.9 F) Pulse: 112 Resp: 18 SpO2: 96 % B P: 116/63 Body mass index is 25.33 kg/m. Constitutional: male patient, NAD HEENT: Atraumatic, PERRL, Oropharynx benign. Neck: Supple with full range of motion. Respiratory: Good air movement bilaterally. Cardiovascular: Normal S1 S2, sinus tachycardia Abdomen: Nondistended Extremities: Nontender. Right lower extremity has 2+ pitting edema, erythema, warmth to to uch, tender several wounds on anterior tibial medial side Skin: Warm, Dry, No rashes Neurologic: Alert & oriented. Psychiatric: Normal mood, affect and judgement. EKG 12-lead EKG shows LABS Results for orders placed or performed during the hospital encounter of 11/05/18 CBC with Differential Result Value Ref Range WBC 9.3 4.0 - 11.0 K/uL RBC 3.73 (L) 4.30 - 5.70 M/uL Hemoglobin 10.8 (L) 13.5 - 18.0 g/dL Hematocrit 32.6 (L) 40.0 - 51.0 % MCV 87.4 83.0 - 101.0 fL MCH 29.0 28.0 - 35.0 pg MCHC 33.1 32.0 - 36.0 g/dL RDW-CV 12.7 <15.0 % RDW-SD 40.9 35.1 - 46.3 fL Platelet Count 281 140 - 440 K/uL MPV 10.5 6.5 - 12.4 fL % Neutrophils 67.4 45.0 - 82.0 % % Lymphocytes 20.6 20.0 - 45.0 % % Monocytes 7.5 4.0 - 12.0 % % Eosinophils 3.5 0.0 - 5.0 % % Basophils 0.8 0.0 - 1.0 % % Immature Granulocytes 0.2 0.0 - 0.4 % Absolute Neutrophils 6.29 1.80 - 8.50 K/uL Absolute Lymphocytes 1.92 0.60 - 3.20 K/uL Absolute Monocytes 0.70 0.00 - 1.00 K/uL Absolute Eosinophils 0.33 0.00 - 0.40 K/uL Absolute Basophils 0.07 0.00 - 0.10 K/uL Absolute Immature Granulocytes 0.02 0.00 - 0.03 K/uL % nRBC 0 0 - 2 per 100 WBC's Absolute nRBC 0.00 0.00 - 0.01 K/uL Comprehensive Metabolic Panel Result Value Ref Range Na 137 136 - 149 mmol/L K 3.8 3.5 - 5.1 mmol/L Cl 98 98 - 109 mmol/L CO2 25 24 - 31 mmol/L Anion Gap 14 3 - 16 mmol/L Glucose 285 (H) 70 - 109 mg/dL BUN 16 7 - 18 mg/dL Creatinine 1.18 0.60 - 1.30 mg/dL eGFR if not >60 >=60 mL/min/1.73m2 Ca 8.9 8.3 - 10.5 mg/dL Albumin 3.7 3.2 - 5.0 g/dL Bilirubin Total 0.5 0.1 - 1.5 mg/dL Total Protein 6.8 6.0 - 7.8 g/dL AST 27 10 - 42 U/L ALT 21 6 - 45 U/L Alkaline Phosphatase 110 40 - 110 U/L Globulin 3.1 2.1 - 3.8 g/dL Albumin/Globulin Ratio 1.2 0.8 - 2.0 BUN/Creatinine Ratio 13.6 Lactic Acid Result Value Ref Range Lactate <0.4 (L) 0.5 - 2.2 mmol/L Procalcitonin Result Value Ref Range Procalcitonin <0.05 <=0.50 ng/mL Comment IMAGING STUDIES (X-Rays interpreted by ED Physician) ED COURSE & MEDICAL DECISION MAKING Pertinent Labs & Imaging studies were reviewed along with EMS notes and half-way record s if applicable. (See chart for details) Medications and Allergy list reviewed. Nurses note and old records were reviewed The patient was seen and examined, Patient is a 48-year-old male who presents with cellulitis of his right lower extremity. Mark arias has a history of polysubstance abuse. He'll be treated with vancomycin and Zosyn. Barry cox is also a diabetic who has not been taking his diabetic medications. Blood glucose was 28 0. He'll be admitted to hospital service for further management. Last Set of Vital Signs: Temp: 37.2 C (98.9 F) Pulse: 112 Resp: 18 SpO2: 96 % BP: 116/6 3 FINAL IMPRESSION ICD-10-CM ICD-9-CM 1. Cellulitis, unspecified cellulitis siteAcute L03.90 682.9 Don Loving MD 11/05/18 2205 documented in this encou nter Miscellaneous Notes Plan of Rosina - Grisel Tillman RN - 11/11/2018 4:20 PM PST Behavioral contract was presented to both patient and his this AM by both Susan Martinez , and alisha Francisco RN. He would not sign but did agree with the contract. This afternoon at 1544 patient left AMA with /S/O. Electronically signed by: Grisel Tillman RN 11/11/2018 16:24 lan of Rosina - Tigist Ocampo RN - 11/11/2018 3:51 AM PSTProblem: Patient Care Overview (Adult) Goal: Care Team Goals & Evaluation PROBLEM-RELATED GOALS: 1. Pt will not have falls this hospitalization by 11/09/18 2. Pt will verbalize pain relief to 4-5/10 by 11/09/18 3. Pt will verbalize understanding of consistent carb diet and insulin management by 9 4. Pt will have decreased redness and swelling of rt lower leg/foot/great toe by 11/09/18 STRATEGY TO ACHIEVE GOALS: - encourage use of call light to call for assist w/mobility if feeling sedated/dizzy. Encou rage family presence at bedside - administer pain med routinely as ordered - encourage adherence to consistent carb diet, monitor BG's as ordered and tx as ordered - encourage elevation of rt lower leg, obtain culture of wound when drainage present, encou rage good hygiene. Administer IV fluids and antibiotics as ordered Outcome: Improving Goal Evaluation: Avinash has been free from falls this shift. VSS. Frustrated with meds but calm this shift. Right leg and foot red, 3+ edema. Independent in room. Light cover from bathroom fell on his spouse and hit her shoulders. Offered option to go to ER, she refused. lan of Care - Jayme Edwards RN - 11/10/2018 8:08 PM PSTProblem: Patient Care Overview (Adult) Goal: Care Team Goals & Evaluation PROBLEM-RELATED GOALS: 1. Pt will not have falls this hospitalization by 11/09/18 2. Pt will verbalize pain relief to 4-5/10 by 11/09/18 3. Pt will verbalize understanding of consistent carb diet and insulin management by 9 4. Pt will have decreased redness and swelling of rt lower leg/foot/great toe by 11/09/18 STRATEGY TO ACHIEVE GOALS: - encourage use of call light to call for assist w/mobility if feeling sedated/dizzy. Encou rage family presence at bedside - administer pain med routinely as ordered - encourage adherence to consistent carb diet, monitor BG's as ordered and tx as ordered - encourage elevation of rt lower leg, obtain culture of wound when drainage present, encou rage good hygiene. Administer IV fluids and antibiotics as ordered Outcome: Unchanged Goal Evaluation: Pt is alert and oriented x4 and reports pain 7-10/10 that he reports is not well controlle d. Pt reports pain constantly, though patient has been found resting/asleep periodically thr ough the shift. Pt verbalized frustrations and threatened to leave AMA this am when asked ab out reported behavioral issues from previous shift. Pt was able to be consoled with assistan ce from charge nurse. No sharps container in the room. Pt accuses staff of 'being nosey' and of looking through his and his spouses belongings. Pt accused RN of 'snooping' upon opening drawers to look for equipment at sink in patient room. Pt reported to the RN that he has a bunch of pain medicine out in his car. His spouse leaves the unit periodically. Spouse has b een calm and cooperative throughout the day, with no complaints. Pt right and left legs have 1+ edema and redness. Pt had loss of one PIV access site just p rior to change of shift. Pt is mod I in the room. Pt is free of falls. RN recommends that students should not be assigned to this patient's care. lan of Care - Sheyla Gallardo RN - 11/10/2018 8:09 AM PSTProblem: Patient Care Overview (Adult) Goal: Care Team Goals & Evaluation PROBLEM-RELATED GOALS: 1. Pt will not have falls this hospitalization by 11/09/18 2. Pt will verbalize pain relief to 4-5/10 by 11/09/18 3. Pt will verbalize understanding of consistent carb diet and insulin management by 9 4. Pt will have decreased redness and swelling of rt lower leg/foot/great toe by 11/09/18 STRATEGY TO ACHIEVE GOALS: - encourage use of call light to call for assist w/mobility if feeling sedated/dizzy. Encou rage family presence at bedside - administer pain med routinely as ordered - encourage adherence to consistent carb diet, monitor BG's as ordered and tx as ordered - encourage elevation of rt lower leg, obtain culture of wound when drainage present, encou rage good hygiene. Administer IV fluids and antibiotics as ordered Outcome: Unchanged Goal Evaluation: Avinash is alert and oriented with stable vital signs. He has had blood sugars in the high 3 00's and is non compliant regarding diet orders; his s/o brings him outside food and he "dem ands" other foods not copasetic with a consistent carb diet (i.e. Juices and soda with sugar ). I found the lock missing and the door hanging open on the sharps container at one point l ast night; I removed the sharps container and was aware to not leave any syringes or other I .V. Access devices in the area. He was upset when we did not give him time when we knocked o n the door and tried to refuse entry twice. His s/o was irate at me not microwaving chicken for her and used abusive language. She was asked to remain respectful. lan of Елена Cortez RN - 11/09/2018 9:09 PM PSTProblem: Patient Care Overview (Adult) Goal: Care Team Goals & Evaluation PROBLEM-RELATED GOALS: 1. Pt will not have falls this hospitalization by 11/09/18 2. Pt will verbalize pain relief to 4-5/10 by 11/09/18 3. Pt will verbalize understanding of consistent carb diet and insulin management by 9 4. Pt will have decreased redness and swelling of rt lower leg/foot/great toe by 11/09/18 STRATEGY TO ACHIEVE GOALS: - encourage use of call light to call for assist w/mobility if feeling sedated/dizzy. Encou rage family presence at bedside - administer pain med routinely as ordered - encourage adherence to consistent carb diet, monitor BG's as ordered and tx as ordered - encourage elevation of rt lower leg, obtain culture of wound when drainage present, encou rage good hygiene. Administer IV fluids and antibiotics as ordered Goal Evaluation: Patient's mood and behavior has been labile. At times patient has refused IV medications. Currently running evening Abx due to patient wanting to be saline locked for shower and dres sing. Patient has been non-compliant with consistent carb diet. At times has been inappropri ate with staff, acting hostile. lan of Nadine Holley RN - 11/09/2018 3:11 PM PST11/11/2018 @ 8:20am This CM called [facility] [phone], in [place], [place]. I was able to schedule him an appt with Dr Russell Sanabria MD for , 11/19/2018 @ 2:40 pm with a check in time of 2:20pm. Patient and his have been notified. Electronically signed by: Nadine Vincent RN 11/11/2018 8:35 11/09/2018 @ 3:30pm This CM received a call back from Dr Kay's office, Dr Kay states he will not at tempt another appt with this patient. However, the director of pupil personnel program states that she will check w ith other providers and get back to me. If non available, may need to look at [facility], . Electronically signed by: Nadine Vincent RN 11/09/2018 15:35 Discharge planning: This CM spoke with patients , Tasha to confirm that she had located a PCP for her hus band. Tasha states that [employer] insurance company had assigned him to Dr Kay. This CM called Dr Kay at the [facility] to confirm and the director of pupil personnel program state s that he is assigned Dr Kay. The problem is that he cancelled his appt with Dr Darcy griggs in July 2018, rescheduled to August 2018 and No Showed that appt. The director of pupil personnel program took a message for Dr Kay to review and to have Dr Kay contact Dr Nash to discuss this case. This CM explained that the patient will need IV ABX through [facility] and not through [facility], as the patient has a history of drug use. Dr Kay's office will call back with a decision and an appt time if Dr Kay agree s to give this patient another chance for an appt to establish care with him. Discharge planning: Pending at this time, CM will follow up on discharge plan and PCP follow up appt. Electronically signed by: Nadine Vincent RN 11/09/2018 15:18 lan of Care - Honey Fuentes RN - 11/09/2018 4:20 AM PSTProblem: Patient Care Overview (Adult) Goal: Care Team Goals & Evaluation PROBLEM-RELATED GOALS: 1. Pt will not have falls this hospitalization by 11/09/18 2. Pt will verbalize pain relief to 4-5/10 by 11/09/18 3. Pt will verbalize understanding of consistent carb diet and insulin management by 9 4. Pt will have decreased redness and swelling of rt lower leg/foot/great toe by 11/09/18 STRATEGY TO ACHIEVE GOALS: - encourage use of call light to call for assist w/mobility if feeling sedated/dizzy. Encou rage family presence at bedside - administer pain med routinely as ordered - encourage adherence to consistent carb diet, monitor BG's as ordered and tx as ordered - encourage elevation of rt lower leg, obtain culture of wound when drainage present, encou rage good hygiene. Administer IV fluids and antibiotics as ordered Outcome: Unchanged Goal Evaluation: Pt is alert and oriented. Agitated at start of shift for being woken up for vitals and med ications. Refused medications. On room air, denies Shortness of breath. Allowed for assessm ent to be completed at 0010. Dressing to foot is clean dry and intact, 3+ edema and redness to RLE. Rates his pain at a 9/10, has relief with scheduled methadone. lan of Care - Haris Joaquin RN - 11/08/2018 3:23 PM PSTProblem: Patient Care Overview (Adult) Goal: Care Team Goals & Evaluation PROBLEM-RELATED GOALS: 1. Pt will not have falls this hospitalization by 11/09/18 2. Pt will verbalize pain relief to 4-5/10 by 11/09/18 3. Pt will verbalize understanding of consistent carb diet and insulin management by 9 4. Pt will have decreased redness and swelling of rt lower leg/foot/great toe by 11/09/18 STRATEGY TO ACHIEVE GOALS: - encourage use of call light to call for assist w/mobility if feeling sedated/dizzy. Encou rage family presence at bedside - administer pain med routinely as ordered - encourage adherence to consistent carb diet, monitor BG's as ordered and tx as ordered - encourage elevation of rt lower leg, obtain culture of wound when drainage present, encou rage good hygiene. Administer IV fluids and antibiotics as ordered Outcome: Unchanged Goal Evaluation: Pt has been walking to the bathroom independently, does not call for assistance. Pt was se dated this morning and therefore his morning dose of Methadone was given later in the day, M D was notified. Pt remains on room air, VSS, remains afebrile. Tolerating diet well. Dressin g to right great toe was changed today, no active drainage noted. Noted redness to RLE decre ased, 3+ edema noted to RLE. lan of Care - Serjio Gray RN - 11/08/2018 5:11 AM PSTProblem: Patient Care Overview (Adult) Goal: Care Team Goals & Evaluation PROBLEM-RELATED GOALS: 1. Pt will not have falls this hospitalization by 11/09/18 2. Pt will verbalize pain relief to 4-5/10 by 11/09/18 3. Pt will verbalize understanding of consistent carb diet and insulin management by 9 4. Pt will have decreased redness and swelling of rt lower leg/foot/great toe by 11/09/18 STRATEGY TO ACHIEVE GOALS: - encourage use of call light to call for assist w/mobility if feeling sedated/dizzy. Encou rage family presence at bedside - administer pain med routinely as ordered - encourage adherence to consistent carb diet, monitor BG's as ordered and tx as ordered - encourage elevation of rt lower leg, obtain culture of wound when drainage present, encou rage good hygiene. Administer IV fluids and antibiotics as ordered Goal Evaluation: Avinash has appeared more alert and less drowsy this shift. R leg is red, no drainage presen t. Dressing on R hallux had some moist drainage at beginning of the shift, dressing is intac t. Avinash c/o a light rash that appeared over his face,neck and arms, he thinks it may be fr om the soap that he used during day shift to take a shower. He refused to have kerline welch from . He has been sleeping intermittently throughout the shift and has been voiding adequatey. VSS. Will continue to monitor. lan of Rosina - Haris Marquez RN - 11/07/2018 7:32 PM PSTProblem: Patient Care Overview (Adult) Goal: Care Team Goals & Evaluation PROBLEM-RELATED GOALS: 1. Pt will not have falls this hospitalization by 11/09/18 2. Pt will verbalize pain relief to 4-5/10 by 11/09/18 3. Pt will verbalize understanding of consistent carb diet and insulin management by 9 4. Pt will have decreased redness and swelling of rt lower leg/foot/great toe by 11/09/18 STRATEGY TO ACHIEVE GOALS: - encourage use of call light to call for assist w/mobility if feeling sedated/dizzy. Encou rage family presence at bedside - administer pain med routinely as ordered - encourage adherence to consistent carb diet, monitor BG's as ordered and tx as ordered - encourage elevation of rt lower leg, obtain culture of wound when drainage present, encou rage good hygiene. Administer IV fluids and antibiotics as ordered Outcome: Declining Goal Evaluation: Pt was asleep most of the morning, denied pain. Independent in room with mobility. Blood g lucose has been elevated in the 250's. Redness to RLE, no drainage noted, dressing remains i n place c/d/i. Voiding on his with no difficulty, tolerating diet well. at the bedside. p Note - Loc Nash MD - 11/07/2018 1:03 PM PSTNAME: Cecilio Arias DATE OF : 1970 DATE OF SERVICE: 11/07/2018 PREOPERATIVE DIAGNOSIS: 1. Right great toe distal phalanx osteomyelitis POSTOPERATIVE DIAGNOSIS: Same OPERATION PERFORMED: 1. Right great toe superificial bone biopsy (distal phalanx) SURGEON: Jose Nash MD WIRE SAWYER: None ANESTHESIA: General ESTIMATED BLOOD LOSS: 10 mL TOURNIQUET TIME: 7 minutes at 250 mmHg. DRAINS: None. CULTURES: Aerobic and Anaerobic cultures (from distal phalanx bone) SPECIMENS: Bone cultures as above COMPLICATIONS: None. OPERATIVE FINDINGS: Consistent with diagnosis IMPLANTS: None INDICATIONS: Cecilio Arias is a 48 y.o. male who has a history of diabetes and great toe distal phalanx osteomyelitis. He had a previous bone biopsy in July as treated with 4 weeks of IV antibiotics. He did not finish his course. He has had recent c ellulitis of the right leg. This seems to be improving with Vancomycin and Zosyn. We discuss ed treatment options. I did recommend amputation but the patient was not willing to proceed with that at this point. After a long discussion, we decided to proceed with another bone bi opsy to allow for specific antibiotic treatment of it. The risks, benefits and alternatives to surgery were discussed. He is aware that this has a reasonable chance of failure and that he may still need an amputation down the road. DESCRIPTION OF PROCEDURE: Cecilio was seen in the preoperatively. The patient's right g reat toe was marked in the standard fashion. All of the patient's questions were answered at that time. Anesthesia evaluated the patient. Following this, the patient was taken back to the Operating Room and placed on the operating table. The patient was then administered gene ral anesthesia by the Anesthesia Team. The patient was positioned supine. The patient was then prepped and draped in the standard, sterile fashion. Attention was tur reva to the time-out. The correct patient, side, site and surgery were identified. A 15 blade was used to make a small incision just by the previous ulcer. It was done there because if he has an amputation, that skin will likely be removed. A Jamshidi needle was the n placed into the distal phalanx and several passes were made. This was used to get bone. So me was sent for aerobic and some for anaerobic culture. The wound was then irrigated. Following this, the skin was then closed with 3-0 nylon loosely. A sterile dressing was hung bushra. The patient was then extubated and then taken to Post Anesthesia Care Unit in stable co ndition. POSTOPERATIVE INSTRUCTIONS: 1. Weight bearing as tolerated 2. Will follow cultures 3. He will likely need 6 weeks of IV antibiotics 4. If his cellulitis does not improve, he is aware that amputation is the best idea 5. Will follow the patient lan of Serjio Motta RN - 11/07/2018 8:05 AM PSTProblem: Patient Care Overview (Adult) Goal: Care Team Goals & Evaluation PROBLEM-RELATED GOALS: 1. Pt will not have falls this hospitalization by 11/09/18 2. Pt will verbalize pain relief to 4-5/10 by 11/09/18 3. Pt will verbalize understanding of consistent carb diet and insulin management by 9 4. Pt will have decreased redness and swelling of rt lower leg/foot/great toe by 11/09/18 STRATEGY TO ACHIEVE GOALS: - encourage use of call light to call for assist w/mobility if feeling sedated/dizzy. Encou rage family presence at bedside - administer pain med routinely as ordered - encourage adherence to consistent carb diet, monitor BG's as ordered and tx as ordered - encourage elevation of rt lower leg, obtain culture of wound when drainage present, encou rage good hygiene. Administer IV fluids and antibiotics as ordered Goal Evaluation: Avinash has been drowsy, often falling asleep while sitting up on the edge of the bed or betw een conversations. He refuses to lay down on the bed, he says the bed makes his neck hurt. R LE appears less red, Avinash stated he was happy that his leg was looking better. Scabs are pr esent throughout his RLE and toes. VSS. is at bedside. He has been compliant with NPO d iet after midnight. He has had no falls this shift. lan of Care - Rekha Lim RN - 11/06/2018 8:55 PM PSTProblem: Patient Care Overview (Adult) Goal: Care Team Goals & Evaluation PROBLEM-RELATED GOALS: 1. Pt will not have falls this hospitalization by 11/09/18 2. Pt will verbalize pain relief to 4-5/10 by 11/09/18 3. Pt will verbalize understanding of consistent carb diet and insulin management by 9 4. Pt will have decreased redness and swelling of rt lower leg/foot/great toe by 11/09/18 STRATEGY TO ACHIEVE GOALS: - encourage use of call light to call for assist w/mobility if feeling sedated/dizzy. Encou rage family presence at bedside - administer pain med routinely as ordered - encourage adherence to consistent carb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 + + + + + + | RDW-SD | 43.2 | 35.1 - 46.3 fL | [facility] | | | | | | [facility] | | | [facility] | | MEDICAL | | | | | | CENTER - | | | | | | LABORATORY | | + + + + + + | Platelet | 276 | 140 - 440 K/uL | [facility] [...] | | | | WBC's | [facility] | | | | | | MEDICAL | | | | | | CENTER - | | | | | | LABORATORY | | + + + + + + | Absolute | 0.00 | 0.00 - 0.01 | [facility] | | | nRBC | | K/uL | [facility] | [...] + | [facility] | [address] | [place] | [phone] | | [facility] | | [address] | | | - LABORATORY | | | | + + + + + Basic Metabolic Panel (11/10/2018 5:52 AM PST) + + + + + + | Component | Value | Ref Range | Performed | Pathologist | | | | | At | Signature | + + + + + + | Na | 133 (L) | 136 - 149 | [facility] | | | | | mmol/L | [facility] | | | | | | MEDICAL | | | | | | CENTER - | | | | | | LABORATORY | | + + + + + + | K | 4.0 | 3.5 - 5.1 | [facility] | | | | | mmol/L | [facility] | | | | | | MEDICAL | | | | | | CENTER - | | | | | | LABORATORY | | + + + + + + | Cl | 93 (L) | 98 - 109 mmol/L | [facility] | | | | | | [facility] | | | | | | MEDICAL | | | | | | CENTER - | | | | | | LABORATORY | | + + + + + + | CO2 | 29 | 24 - 31 mmol/L | [facility] | | | | | | [facility] | | | | | | MEDICAL | | | | | | CENTER - | | | | | | LABORATORY | | + + + + + + | Anion Gap | 11 | 3 - 16 mmol/L | [facility] | | | | | | [facility] | | | | | | MEDICAL | | | | | | CENTER - | | | | | | LABORATORY | | + + + + + + | Glucose | 367 (H) | 70 - 109 mg/dL | [facility] | | | | | | [facility] | | | | | | MEDICAL | | | | | | CENTER - | | | | | | LABORATORY | | + + + + + + | BUN | 19 (H) | 7 - 18 mg/dL | [facility] | | | | | | [facility] | | | | | | MEDICAL | | | | | | CENTER - | | | | | | LABORATORY | | + + + + + + | Creatinine | 1.16 | 0.60 - 1.30 | [facility] | [...] mL/min/1.73m2 | [facility] | | | [place] | RATE,ESTIMATED | | MEDICAL | | | | mL/min/1.65d3Vhnl than | | CENTER - | | [...] + + + + | Calcium | 8.8 | 8.3 - 10.5 | [facility] | | | | | mg/dL | [facility] | | | | | | MEDICAL | | | | | | CENTER - | | | | | | LABORATORY | | + + + + + + | BUN/Creatin | 16.4 | | [facility] | | | ine [...] | + + + + + | [facility] | [address] | [place] | [phone] | | [facility] | | [address] | | | - LABORATORY | | | | + + + + + POC Glucose (11/09/2018 8:15 PM PST) + +---------+ + + + | Component | Value | Ref Range | Performed | Pathologist | | | | | At | Signature | + +---------+ + + + | Glucose, | 360 (H) | 70 - 109 mg/dL | [...] + + | [facility] | [address] | [place] | [phone] | | [facility] | | [address] | | | - LABORATORY | | | | + + + + + POC Glucose (11/09/2018 5:32 PM PST) + +---------+ + + + | Component | Value | Ref Range | Performed | Pathologist | | | | | At | Signature | + +---------+ + + + | Glucose, | 411 (H) | 70 - 109 mg/dL | [facility] | | | POC | | | [...] + | [facility] | [address] | [place] | [phone] | | [facility] | | [address] | | | - LABORATORY | | | | + + + + + Vancomycin, Trough (11/09/2018 5:11 PM PST) + +-------+ + + + | Component | Value | Ref Range | Performed | Pathologist | | | | | At | Signature | + +-------+ + + + | Date of | | | [facility] | | | Last Dose | | | [facility] | | | | | | MEDICAL | | | | | | CENTER - | | | | | | LABORATORY | | + +-------+ + + + | Time of | | | [facility] | | | Last Dose | | | [facility] | | | | | | MEDICAL | | | | | | CENTER - | | | | | | LABORATORY | | + +-------+ + + + | Vancomycin | 15.7 | <20.0 ug/mL | [facility] | | | Trough | | | [facility] | | [...] + | [facility] | [address] | [place] | [phone] | | [facility] | | [address] | | | - LABORATORY | | | | + + + + + POC Glucose (11/09/2018 12:14 PM PST) + +---------+ + + + | Component | Value | Ref Range | Performed | Pathologist | | | | | At | Signature | + +---------+ + + + | Glucose, | 453 (H) | 70 - 109 mg/dL | [...] + | [facility] | [address] | [place], [place] | [phone] | | [facility] | | [address] | | | - LABORATORY | | | | + + + + + VAS Lower Extremity Venous Right (11/09/2018 9:15 AM PST) + + | Specimen | + + | | + + + + + | Narrative | Performed At | + + + | VAS LOWER EXTREMITY VENOUS RIGHT 11/09/2018 9:00 AM HISTORY: leg | [facility] | | swelling; assess for DVT. COMPARISON: 09/05/2018. PROTOCOL: | | | Jeronimo scale and Doppler images of the lower extremity veins. | | | FINDINGS: The right common femoral, greater saphenous, profunda | | | femoral, superficial femoral, and popliteal veins demonstrate normal | | | flow, augmentation, and compression. Posterior tibial vein is patent. | | | IMPRESSION - No evidence for DVT. The preliminary | | | findings were conveyed to the ordering provider, by the electric motor rebuilder, | | | immediately following the exam. Dictated and Signed by: Fabien | | | MD Viviana Electronically signed: 11/09/2018 9:54 AM | | + + + + + | Procedure Note | + + | Gloria, Rad Results In - 11/09/2018 9:57 AM PST VAS LOWER EXTREMITY VENOUS RIGHT | | 11/09/2018 9:00 AM HISTORY: leg swelling; assess for DVT.COMPARISON: 09/05/2018.PROTOCOL: | | Jeronimo scale and Doppler images of the lower extremity veins.FINDINGS:The right common | | femoral, greater saphenous, profunda femoral, superficialfemoral, and popliteal veins | | demonstrate normal flow, augmentation, andcompression. Posterior tibial vein is | | patent.IMPRESSION -No evidence for DVT.The preliminary findings were conveyed to the | | ordering provider, by thesonographer, immediately following the exam.Dictated and Signed | | by: Fabien Michelle MD Electronically signed: 11/09/2018 9:54 AM | |FINDINGS: | |The right common femoral, greater saphenous, profunda femoral, superficial | |femoral, and popliteal veins demonstrate normal flow, augmentation, and | |compression. Posterior tibial vein is patent. | | | | | |IMPRESSION - | |No evidence for DVT. | | | |The preliminary findings were conveyed to the ordering provider, by the | |electric motor rebuilder, immediately following the exam. | | | |Dictated and Signed by: Fabien Michelle MD | | Electronically signed: 11/09/2018 9:54 AM | + + + +---------+ + + | Performing | Address | City/State/Zipcode | Phone Number | | Organization | | | | + +---------+ + + | [facility] | | | | + +---------+ + + POC Glucose (11/09/2018 6:40 AM PST) + +---------+ + + + | Component | Value | Ref Range | Performed | Pathologist | | | | | At | Signature | + +---------+ + + + | Glucose, | 390 (H) | 70 - 109 mg/dL | [...] + | [facility] | [address] | [place] | [phone] | | [facility] | | [address] | | | - LABORATORY | | | | + + + + + CBC no Differential (11/09/2018 4:53 AM PST) + + + + + + | Component | Value | Ref Range | Performed | Pathologist | | | | | At | Signature | + + + + + + | White Blood | 9.2 | 4.0 - 11.0 K/uL | [facility] | | | Cells | | | [facility] | | | | | | MEDICAL | | | | | | CENTER - | | | | | | LABORATORY | | + + + + + + | Red Blood | 3.57 (L) | 4.30 - 5.70 | [facility] | | | Cells | | M/uL | [facility] | | | | | | MEDICAL | | | | | | CENTER - | | | | | | LABORATORY | | + + + + + + | Hemoglobin | 10.4 (L) | 13.5 - 18.0 | [facility] | | | | | g/dL | [facility] | | | | | | MEDICAL | | | | | | CENTER - | | | | | | LABORATORY | | + + + + + + | Hematocrit | 31.8 (L) | 40.0 - 51.0 % | [facility] | | | | | | [facility] | | | | | | MEDICAL | | | | | | CENTER - | | | | | | LABORATORY | | + + + + + + | MCV | 89.1 | 83.0 - 101.0 fL | [facility] | | | | | | [facility] | | | | | | MEDICAL | | | | | | CENTER - | | | | | | LABORATORY | | + + + + + + | MCH | 29.1 | 28.0 - 35.0 pg | [facility] | | | | | | [facility] | | | | | | MEDICAL | | | | | | CENTER - | | | | | | LABORATORY | | + + + + + + | MCHC | 32.7 | 32.0 - 36.0 | [facility] | | | | | g/dL | [facility] | | | | | | MEDICAL | | | | | | CENTER - | | | | | | LABORATORY | | + + + + + + | RDW-CV | 13.2 | <15.0 % | [facility] | | | | | | [facility] | | | | | | MEDICAL | | | | | | CENTER - | | | | | | LABORATORY | | + + + + + + | RDW-SD | 43.1 | 35.1 - 46.3 fL | [facility] | | | | | | [facility] | | | | | | MEDICAL | | | | | | CENTER - | | | | | | LABORATORY | | + + + + + + | Platelet | 276 | 140 - 440 K/uL | [facility] | | | Count | | | [facility] | | | | | | MEDICAL | | | | | | CENTER - | | | | | | LABORATORY | | + + + + + + | MPV | 10.9 | 6.5 - 12.4 fL | [facility] | | | | | | [facility] | | | | | | MEDICAL | | | | | | CENTER - | | | | | | LABORATORY | | + + + + + + | % nRBC | 0 | 0 - 2 per 100 | [facility] | | | | | WBC's | [facility] | | | | | | MEDICAL | | | | | | CENTER - | | | | | | LABORATORY | | + + + + + + | Absolute | 0.00 | 0.00 - 0.01 | [facility] | | | nRBC | | K/uL | [facility] | [...] [address] | [place] | [phone] | | [facility] | | [address] | | | - LABORATORY | | | | + + + + + Basic Metabolic Panel (11/09/2018 4:53 AM PST) + + + + + + | Component | Value | Ref Range | Performed | Pathologist | | | | | At | Signature | + + + + + + | Na | 132 (L) | 136 - 149 | [facility] | | | | | mmol/L | [facility] | | | | | | MEDICAL | | | | | | CENTER - | | | | | | LABORATORY | | + + + + + + | K | 4.1 | 3.5 - 5.1 | [facility] | | | | | mmol/L | [facility] | | | | | | MEDICAL | | | | | | CENTER - | | | | | | LABORATORY | | + + + + + + | Cl | 94 (L) | 98 - 109 mmol/L | [facility] | | | | | | [facility] | | | | | | MEDICAL | | | | | | CENTER - | | | | | | LABORATORY | | + + + + + + | CO2 | 29 | 24 - 31 mmol/L | [facility] [...] + + + + | Glucose | 382 (H) | 70 - 109 mg/dL | [facility] | | | | | | [facility] | | | | | | MEDICAL | | | | | | CENTER - | | | | | | LABORATORY | | + + + + + + | BUN | 23 (H) | 7 - 18 mg/dL | [facility] | | | | | | [facility] | | | | | | MEDICAL | | | | | | CENTER - | | | | | | LABORATORY | | + + + + + + | Creatinine | 0.98 | 0.60 - 1.30 | [facility] | | | | | mg/dL | [facility] | | | | | | MEDICAL | | | | | | CENTER - | | | | | | LABORATORY | | + + + + + + | eGFR, | >60Comment: GLOMERULAR | >=60 | [facility] | | | non- | FILTRATION | mL/min/1.73m2 | [facility] | | | [place] | RATE,ESTIMATED | | MEDICAL | | | | mL/min/1.01e0Roza than | | CENTER - | | [...] + + + + | Calcium | 9.1 | 8.3 - 10.5 | [facility] | | | | | mg/dL | [facility] | | | | | | MEDICAL | | | | | | CENTER - | | | | | | LABORATORY | | + + + + + + | BUN/Creatin | 23.5 | | [facility] | | | ine [...] + | [facility] | [address] | [place] | [phone] | | [facility] | | [address] | | | - LABORATORY | | | | + + + + + POC Glucose (11/08/2018 8:43 PM PST) + +---------+ + + + | Component | Value | Ref Range | Performed | Pathologist | | | | | At | Signature | + +---------+ + + + | Glucose, | 228 (H) | 70 - 109 mg/dL | [facility] | | | POC | | | [...] [address] | [place] | [phone] | | [facility] | | [address] | | | - LABORATORY | | | | + + + + + Vancomycin, Trough (11/08/2018 5:13 PM PST) + +-------+ + + + | Component | Value | Ref Range | Performed | Pathologist | | | | | At | Signature | + +-------+ + + + | Date of | | | [facility] | | | Last Dose | | | [facility] | | | | | | MEDICAL | | | | | | CENTER - | | | | | | LABORATORY | | + +-------+ + + + | Time of | | | [facility] | | | Last Dose | | | [facility] | | | | | | MEDICAL | | | | | | CENTER - | | | | | | LABORATORY | | + +-------+ + + + | Vancomycin | 16.0 | <20.0 ug/mL | [facility] | | | Trough | | | [facility] | | [...] + | [facility] | [address] | [place] | [phone] | | [facility] | | [address] | | | - LABORATORY | | | | + + + + + POC Glucose (11/08/2018 4:57 PM PST) + +---------+ + + + | Component | Value | Ref Range | Performed | Pathologist | | | | | At | Signature | + +---------+ + + + | Glucose, | 248 (H) | 70 - 109 mg/dL | [facility] | | | POC | | | [facility] | | [...] [address] | [place] | [phone] | | [facility] | | [address] | | | - LABORATORY | | | | + + + + + POC Glucose (11/08/2018 11:53 AM PST) + +---------+ + + + | Component | Value | Ref Range | Performed | Pathologist | | | | | At | Signature | + +---------+ + + + | Glucose, | 174 (H) | 70 - 109 mg/dL | [facility] | | | POC | | | [facility] | | | | | | [...] [address] | [place] | [phone] | | [facility] | | [address] | | | - LABORATORY | | | | + + + + + POC Glucose (11/08/2018 6:56 AM PST) + +---------+ + + + | Component | Value | Ref Range | Performed | Pathologist | | | | | At | Signature | + +---------+ + + + | Glucose, | 225 (H) | 70 - 109 mg/dL | [...] + | [facility] | [address] | [place] | [phone] | | [facility] | | [address] | | | - LABORATORY | | | | + + + + + CBC no Differential (11/08/2018 6:43 AM PST) + + + + + + | Component | Value | Ref Range | Performed | Pathologist | | | | | At | Signature | + + + + + + | White Blood | 8.0 | 4.0 - 11.0 K/uL | [facility] | | | Cells | | | [facility] | | | | | | MEDICAL | | | | | | CENTER - | | | | | | LABORATORY | | + + + + + + | Red Blood | 3.61 (L) | 4.30 - 5.70 | [facility] [...] | | | | | g/dL | [facility] | | | | | | MEDICAL | | | | | | CENTER - | | | | | | LABORATORY | | + + + + + + | Hematocrit | 32.0 (L) | 40.0 - 51.0 % | [facility] | | | | | | [facility] | | | | | | MEDICAL | | | | | | CENTER - | | | | | | LABORATORY | | + + + + + + | MCV | 88.6 | 83.0 - 101.0 fL | [facility] | | | | | | [facility] | | | | | | MEDICAL | | | | | | CENTER - | | | | | | LABORATORY | | + + + + + + | MCH | 29.4 | 28.0 - 35.0 pg | [facility] | | | | | | [facility] | | | | | | MEDICAL | | | | | | CENTER - | | | | | | LABORATORY | | + + + + + + | MCHC | 33.1 | 32.0 - 36.0 | [facility] | | | | | g/dL | [facility] | | | | | | MEDICAL | | | | | | CENTER - | | | | | | LABORATORY | | + + + + + + | RDW-CV | 13.3 | <15.0 % | [facility] | | | | | | [facility] | | | | | | MEDICAL | | | | | | CENTER - | | | | | | LABORATORY | | + + + + + + | RDW-SD | 43.1 | 35.1 - 46.3 fL | [facility] | | | | | | [facility] | | | | | | MEDICAL | | | | | | CENTER - | | | | | | LABORATORY | | + + + + + + | Platelet | 273 | 140 - 440 K/uL | [facility] | | | Count | | | [facility] | | | | | | MEDICAL | | | | | | CENTER - | | | | | | LABORATORY | | + + + + + + | MPV | 10.8 | 6.5 - 12.4 fL | [facility] [...] | | | | WBC's | [facility] | | | | | | MEDICAL | | | | | | CENTER - | | | | | | LABORATORY | | + + + + + + | Absolute | 0.00 | 0.00 - 0.01 | [facility] | | | nRBC | | K/uL | [facility] | [...] [address] | [place] | [phone] | | [facility] | | [address] | | | - LABORATORY | | | | + + + + + Basic Metabolic Panel (11/08/2018 6:42 AM PST) + + + + + + | Component | Value | Ref Range | Performed | Pathologist | | | | | At | Signature | + + + + + + | Na | 135 (L) | 136 - 149 | [facility] | | | | | mmol/L | [facility] | | | | | | MEDICAL | | | | | | CENTER - | | | | | | LABORATORY | | + + + + + + | K | 4.3 | 3.5 - 5.1 | [facility] | | | | | mmol/L | [facility] | | | | | | MEDICAL | | | | | | CENTER - | | | | | | LABORATORY | | + + + + + + | Cl | 97 (L) | 98 - 109 mmol/L | [facility] | | | | | | [facility] | | | | | | MEDICAL | | | | | | CENTER - | | | | | | LABORATORY | | + + + + + + | CO2 | 31 | 24 - 31 mmol/L | [facility] | | | | | | [facility] | | | | | | MEDICAL | | | | | | CENTER - | | | | | | LABORATORY | | + + + + + + | Anion Gap | 7 | 3 - 16 mmol/L | [facility] | | | | | | [facility] | | | | | | MEDICAL | | | | | | CENTER - | | | | | | LABORATORY | | + + + + + + | Glucose | 255 (H) | 70 - 109 mg/dL | [facility] | | | | | | [facility] | | | | | | MEDICAL | | | | | | CENTER - | | | | | | LABORATORY | | + + + + + + | BUN | 22 (H) | 7 - 18 mg/dL | [facility] | | | | | | [facility] | | | | | | MEDICAL | | | | | | CENTER - | | | | | | LABORATORY | | + + + + + + | Creatinine | 1.05 | 0.60 - 1.30 | [facility] | | | | | mg/dL | [facility] | | | | | | MEDICAL | | | | | | CENTER - | | | | | | LABORATORY | | + + + + + + | eGFR, | >60Comment: GLOMERULAR | >=60 | [facility] | | | non- | FILTRATION | mL/min/1.73m2 | [facility] | | | [place] | RATE,ESTIMATED | | MEDICAL | | | | mL/min/1.09k9Obbl than | | CENTER - | | [...] + + | Calcium | 9.2 | 8.3 - 10.5 | [facility] | | | | | mg/dL | [facility] | | | | | | MEDICAL | | | | | | CENTER - | | | | | | LABORATORY | | + + + + + + | BUN/Creatin | 21.0 | | [facility] | | | ine [...] + | [facility] | [address] | [place] | [phone] | | [facility] | | [address] | | | - LABORATORY | | | | + + + + + POC Glucose (11/07/2018 9:12 PM PST) + +---------+ + + + | Component | Value | Ref Range | Performed | Pathologist | | | | | At | Signature | + +---------+ + + + | Glucose, | 249 (H) | 70 - 109 mg/dL | [facility] | | | POC | | | [facility] | | [...] + | [facility] | [address] | [place] | [phone] | | [facility] | | [address] | | | - LABORATORY | | | | + + + + + POC Glucose (11/07/2018 4:44 PM PST) + +---------+ + + + | Component | Value | Ref Range | Performed | Pathologist | | | | | At | Signature | + +---------+ + + + | Glucose, | 265 (H) | 70 - 109 mg/dL | [...] + | [facility] | [address] | [place] | [phone] | | [facility] | | [address] | | | - LABORATORY | | | | + + + + + Culture, Wound, Smear (11/07/2018 1:25 PM PST) + + + + + + | Component | Value | Ref Range | Performed | Pathologist | | | | | At | Signature | + + + + + + | Culture | Staphylococcus | | [facility] | | | | aureusComment: Isolated | | [facility] | | | | from broth subculture. | | MEDICAL | | | | | | CENTER - | | | | | | LABORATORY | | + + + + + + | Culture | Corynebacterium | | [facility] | | | | amycolatumComment: | | [facility] | | | | Isolated from broth | | MEDICAL | | | | subculture. | | CENTER - | | | | | | LABORATORY | | + + + + + + | Culture | Corynebacterium | | [facility] | | | | amycolatumComment: | | [facility] | | | | Isolated from broth | | MEDICAL | | | | subculture.No | | CENTER - | | | | interpretive standards | | LABORATORY | | | | available for | | | | | | sensitivities. | | | | + + + + + + | Gram Stain | No white blood cells | | [facility] | | | Result | (PMNs) seen | | [facility] | | | | | | MEDICAL | | | | | | CENTER - | | | | | | LABORATORY | | + + + + + + | Gram Stain | No organisms seen | | [facility] | | | Result | | | [facility] | | | | | | MEDICAL | | | | | | CENTER - | | | | | | LABORATORY | | + + + + + + + + | Specimen | + + | Tissue - Entire left | | foot (body | | structure) | + + + + + | Narrative | Performed At | + + + | 11/13 Two biotypes of Corynebacterium amycolatum isolated | [facility] | | | [facility] | | | [facility] | | | - LABORATORY | + + + + + +--------+ + | Organism | Antibiotic | Method | Susceptibility | + + +--------+ + | Staphylococcus | Ciprofloxacin | | <=0.5 ug/mL: | | aureus | | | Sensitive | + + +--------+ + | Staphylococcus | Clindamycin | | 0.25 ug/mL: | | aureus | | | Sensitive | + + +--------+ + | Staphylococcus | Levofloxacin | | <=0.12 ug/mL: | | aureus | | | Sensitive | + + +--------+ + | Staphylococcus | Linezolid | | 2 ug/mL: Sensitive | | aureus | | | | + + +--------+ + | Staphylococcus | Oxacillin | | <=0.25 ug/mL: | | aureus | | | Sensitive | + + +--------+ + | Staphylococcus | Penicillin G | | 0.25 ug/mL: | | aureus | | | Resistant | + + +--------+ + | Staphylococcus | Rifampin | | <=0.5 ug/mL: | | aureus | | | Sensitive | + + +--------+ + | Staphylococcus | Tetracycline | | <=1 ug/mL: | | aureus | | | Sensitive | + + +--------+ + | Staphylococcus | Trimethoprim + | | <=10 ug/mL: | | aureus | Sulfamethoxazole | | Sensitive | + + +--------+ + | Staphylococcus | Vancomycin | | 1 ug/mL: Sensitive | | aureus | | | | + + +--------+ + + + + + + | Performing | Address | City/State/Zipcode | Phone Number | | Organization | | | | + + + + + | [facility] | [address] | [place] | [phone] | | [facility] | | [address] | | | - LABORATORY | | | | + + + + + Culture, Anaerobe (11/07/2018 1:10 PM PST) + + + + + + | Component | Value | Ref Range | Performed | Pathologist | | | | | At | Signature | + + + + + + | Culture | 1+ Mixed ginette (multiple | | [facility] | | | | morphologies | | [facility] | | | | present)Comment: Mixed | | MEDICAL | | | | anaerobic growth, no | | CENTER - | | | | further workup | | LABORATORY | | | | indicated.Polymicrobic | | | | | | infection: See the | | | | | | [facility] Guide to | | | | | | Antimicrobial Infection. | | | | + + + + + + + + | Specimen | + + | Tissue - Dorsal | | digital nerve to | | great toe (body | | structure) | + + + + + + + | Performing | Address | City/State/Zipcode | Phone Number | | Organization | | | | + + + + + | [facility] | [address] | [place] | [phone] | | [facility] | | [address] | | | - LABORATORY | | | | + + + + + POC Glucose (11/07/2018 11:45 AM PST) + +---------+ + + + | Component | Value | Ref Range | Performed | Pathologist | | | | | At | Signature | + +---------+ + + + | Glucose, | 253 (H) | 70 - 109 mg/dL | [...] [address] | [place] | [phone] | | [facility] | | [address] | | | - LABORATORY | | | | + + + + + Vancomycin, Trough (11/07/2018 11:31 AM PST) + +-------+ + + + | Component | Value | Ref Range | Performed | Pathologist | | | | | At | Signature | + +-------+ + + + | Date of | | | [facility] | | | Last Dose | | | [facility] | | | | | | MEDICAL | | | | | | CENTER - | | | | | | LABORATORY | | + +-------+ + + + | Time of | | | [facility] | | | Last Dose | | | [facility] | | | | | | [facility] | | | | | | CENTER - | | | | | | LABORATORY | | + +-------+ + + + | Vancomycin | 11.9 | <20.0 ug/mL | [facility] | | | Trough | | | [facility] | | [...] + + + + + | [facility] | [address] | [place] | [phone] | | [facility] | | [address] | | | - LABORATORY | | | | + + + + + POC Glucose (11/07/2018 6:59 AM PST) + +---------+ + + + | Component | Value | Ref Range | Performed | Pathologist | | | | | At | Signature | + +---------+ + + + | Glucose, | 275 (H) | 70 - 109 mg/dL | [...] + | [facility] | [address] | [place] | [phone] | | [facility] [facility] | [address] | | | - LABORATORY | | | | + + + + + Comprehensive Metabolic Panel (11/07/2018 5:49 AM PST) + + + + + + | Component | Value | Ref Range | Performed | Pathologist | | | | | At | Signature | + + + + + + | Na | 134 (L) | 136 - 149 | [facility] | | | | | mmol/L | [facility] | | | | | | [facility] | | | | | | [facility] - | | | | | | LABORATORY | | + + + + + + | K | 4.0 | 3.5 - 5.1 | [facility] | | | | | mmol/L | [facility] | | | | | | [facility] | | | | | | C[facility] - | | | | | | LABORATORY | | + + + + + + | Cl | 97 (L) | 98 - 109 mmol/L | [facility] | | | | | | [facility] | | | | | | [facility] | | | | | | [facility] - | | | | | | LABORATORY | | + + + + + + | CO2 | 27 | 24 - 31 mmol/L | [facility] | | | | | | [facility] | | [...] + + + + | Glucose | 273 (H) | 70 - 109 mg/dL | [facility] | | | | | | [facility] | | | | | | [facility] | | | | | | C[facility] - | | | | | | LABORATORY | | + + + + + + | BUN | 23 (H) | 7 - 18 mg/dL | [facility] | | | | | | [facility] | | | | | | [facility] | | | | | | C[facility] - | | | | | | LABORATORY | | + + + + + + | Creatinine | 1.09 | 0.60 - 1.30 | [facility] | | | | | mg/dL | [facility] | | | | | | [facility] | | | | | | CENTER - | | | | | | LABORATORY | | + + + + + + | eGFR, | >60Comment: GLOMERULAR | >=60 | [facility] | | | non- | FILTRATION | mL/min/1.73m2 | [facility] | | | [place] | RATE,ESTIMATED | | MEDICAL | | | | mL/min/1.52u6Dirb than | | CENTER - | | [...] + + + + | Calcium | 8.8 | 8.3 - 10.5 | [facility] | | | | | mg/dL | [facility] | | | | | | [facility] | | | | | | CENTER - | | | | | | LABORATORY | | + + + + + + | Albumin | 3.6 | 3.2 - 5.0 g/dL | [facility] | | | | | | [facility] | | | | | | [facility] | | | | | | CENTER - | | | | | | LABORATORY | | + + + + + + | Bilirubin | 0.4 | 0.1 - 1.5 mg/dL | [facility] | | | Total | | | [facility] | | | | | | [facility] | | | | | | CENTER - | | | | | | LABORATORY | | + + + + + + | Total | 6.7 | 6.0 - 7.8 g/dL | [facility] | | | Protein | | | [facility] | | | | | | [facility] | | | | | | CENTER - | | | | | | LABORATORY | | + + + + + + | AST | 21 | 10 - 42 U/L | [facility] | | | | | | [facility] | | [facility] | | | [facility] | | | | | | CENTER - | | | | | | LABORATORY | | + + + + + + | ALT | 21 | 6 - 45 U/L | [facility] | | | | | | [facility] | | | | | | [facility] | | | | | | CENTER - | | | | | | LABORATORY | | + + + + + + | Alkaline | 112 (H) | 40 - 110 U/L | [facility] | | | Phosphatase | | | [facility] | | | | | | [facility] | | | | | | CENTER - | | | | | | LABORATORY | | + + + + + + | Globulin | 3.1 | 2.1 - 3.8 g/dL | [facility] | | | | | | [facility] | | | | | | [facility] | | | | | | CENTER - | | | | | | LABORATORY | | + + + + + + | Albumin/Michelle | 1.2 | 0.8 - 2.0 | [facility] | | | bulin Ratio | | | [facility] | | | | | | [facility]ICAL | | | | | | CENTER - | | | | | | LABORATORY | | + + + + + + | BUN/Creatin | 21.1 | | [facility] | | | ine [...] [address] | [place] | [phone] | | [facility] | | [address] | | | - LABORATORY | | | | + + + + + Sedimentation Rate (11/07/2018 5:49 AM PST) + +--------+ + + + | Component | Value | Ref Range | Performed | Pathologist | | | | | At | Signature | + +--------+ + + + | Erythrocyte | 17 (H) | <15 mm/hr | [facility] | | | | | | [facility] | | | [facility] | | | MEDICAL | | | on Rate | | | CENTER - | | | | | | LABORATORY | | + +--------+ + + + + + | Specimen | + + | Blood | + + + + + + + | Performing | Address | City/State/Zipcode | Phone Number | | Organization | | | | + + + + + | [facility] | [address] | [place] | [phone] | | [facility] | | [address] | | | - LABORATORY | | | | + + + + + C-Reactive Protein (11/07/2018 5:49 AM PST) + +-------+ + + + | Component | Value | Ref Range | Performed | Pathologist | | | | | At | Signature | + +-------+ + + + | CRP | 4.77 | <8.00 mg/L | [facility] | | | | | [...] [address] | [place] | [phone] | | [facility] | | [address] | | | - LABORATORY | | | | + + + + + CBC with Differential (11/07/2018 5:49 AM PST) + + + + + + | Component | Value | Ref Range | Performed | Pathologist | | | | | At | Signature | + + + + + + | White Blood | 8.0 | 4.0 - 11.0 K/uL | [facility] | | | Cells | | | [facility] | | | | | | [facility] | | | | | | C[facility] - | | | | | | LABORATORY | | + + + + + + | Red Blood | 3.64 (L) | 4.30 - 5.70 | [facility] | | | Cells | | M/uL | [facility] | | | | | | [facility] | | | | | | CENTER - | | | | | | LABORATORY | | + + + + + + | Hemoglobin | 10.7 (L) | 13.5 - 18.0 | [facility] | | | | | g/dL | [facility] | | | | | | MEDICAL | | | | | | CENTER - | | | | | | LABORATORY | | + + + + + + | Hematocrit | 32.4 (L) | 40.0 - 51.0 % | [facility] | | | | | | [facility] | | | | | | MEDICAL | | | | | | CENTER - | | | | | | LABORATORY | | + + + + + + | MCV | 89.0 | 83.0 - 101.0 fL | [facility] | | | | | | [facility] | | [facility] | | | [facility] | | | | | | CENTER - | | | | | | LABORATORY | | + + + + + + | MCH | 29.4 | 28.0 - 35.0 pg | [facility] | | | | | | [facility] | | | | | | MEDICAL | | | | | | CENTER - | | | | | | LABORATORY | | + + + + + + | MCHC | 33.0 | 32.0 - 36.0 | [facility] | | | | | g/dL | [facility] | | | | | | MEDICAL | | | | | | CENTER - | | | | | | LABORATORY | | + + + + + + | RDW-CV | 13.2 | <15.0 % | [facility] | | | | | | [facility] | | | | | | [facility]ICAL | | | | | | CENTER - | | | | | | LABORATORY | | + + + + + + | RDW-SD | 42.6 | 35.1 - 46.3 fL | [facility] | | | | | | [facility] | | | | | | [facility]ICAL | | | | | | CENTER - | | | | | | LABORATORY | | + + + + + + | Platelet | 285 | 140 - 440 K/uL | [facility] | | | Count | | | [facility] | | | | | | [facility]ICAL | | | | | | CENTER - | | | | | | LABORATORY | | + + + + + + | MPV | 10.8 | 6.5 - 12.4 fL | [facility] | | | | | | [facility] | | | | | | [facility]ICAL | | | | | | CENTER - | | | | | | LABORATORY | | + + + + + + | % | 63.1 | 45.0 - 82.0 % | [facility] | | | Neutrophils | | | [facility] | | | | | | MEDICAL | | | | | | CENTER - | | | | | | LABORATORY | | + + + + + + | % | 23.3 | 20.0 - 45.0 % | [facility] | | | Lymphocytes | | | [facility] | | | | | | MEDICAL | | | | | | CENTER - | | | | | | LABORATORY | | + + + + + + | % Monocytes | 8.1 | 4.0 - 12.0 % | [facility] | | | | | | [facility] | | | | | | MEDICAL | | | | | | CENTER - | | | | | | LABORATORY | | + + + + + + | % | 4.7 | 0.0 - 5.0 % | [facility] [...] + + + | % Immature | 0.2 | 0.0 - 0.4 % | [facility] | | | Granulocyte | | | [facility] | | | s | | | MEDICAL | | | | | | CENTER - | | | | | | LABORATORY | | + + + + + + | Absolute | 5.05 | 1.80 - 8.50 | [facility] | | | Neutrophils | | K/uL | [facility] | | | | | | MEDICAL | | | | | | CENTER - | | | | | | LABORATORY | | + + + + + + | Absolute | 1.87 | 0.60 - 3.20 | [facility] | | | Lymphocytes | | K/uL | [facility] | | | | | | MEDICAL | | | | | | CENTER - | | | | | | LABORATORY | | + + + + + + | Absolute | 0.65 | 0.00 - 1.00 | [facility] | | | Monocytes | | K/uL | [facility] | | | | | | MEDICAL | | | | | | CENTER - | | | | | | LABORATORY | | + + + + + + | Absolute | 0.38 | 0.00 - 0.40 | [facility] | | | Eosinophils | | K/uL | [facility] | | | | | | MEDICAL | | | | | | CENTER - | | | | | | LABORATORY | | + + + + + + | Absolute | 0.05 | 0.00 - 0.10 | [facility] | | | Basophils | | K/uL | [facility] | | | | | | MEDICAL | | | | | | CENTER - | | | | | | LABORATORY | | + + + + + + | Absolute | 0.02 | 0.00 - 0.03 | [facility] | | | Immature | | K/uL | [facility] | | | Granulocyte | | [...] | 0.00 | 0.00 - 0.01 | [facility] | | | nRBC | | K/uL | [facility] | [...] [address] | [place] | [phone] | | [facility] | | [address] | | | - LABORATORY | | | | + + + + + POC Glucose (11/06/2018 9:51 PM PST) + +---------+ + + + | Component | Value | Ref Range | Performed | Pathologist | | | | | At | Signature | + +---------+ + + + | Glucose, | 309 (H) | 70 - 109 mg/dL | [...] + | [facility] | [address] | [place] | [phone] | | [facility] | | [address] | | | - LABORATORY | | | | + + + + + Albumin (11/06/2018 5:19 PM PST) + +-------+ + + + | Component | Value | Ref Range | Performed | Pathologist | | | | | At | Signature | + +-------+ + + + | Albumin | 3.4 | 3.2 - 5.0 g/dL | [facility] [...] + | [facility] | [address] | [place] | [phone] | | [facility] | | [address] | | | - LABORATORY | | | | + + + + + POC Glucose (11/06/2018 4:52 PM PST) + +---------+ + + + | Component | Value | Ref Range | Performed | Pathologist | | | | | At | Signature | + +---------+ + + + | Glucose, | 275 (H) | 70 - 109 mg/dL | [facility] | | | POC | | | [...] + | [facility] | [address] | [place] | [phone] | | [facility] | | [address] | | | - LABORATORY | | | | + + + + + POC Glucose (11/06/2018 12:16 PM PST) + +---------+ + + + | Component | Value | Ref Range | Performed | Pathologist | | | | | At | Signature | + +---------+ + + + | Glucose, | 312 (H) | 70 - 109 mg/dL | [facility] | | | POC | | | [facility] | | [...] | + + + + + | [facility] | [address] | [place] | [phone] | | [facility] | | [address] | | | - LABORATORY | | | | + + + + + MRI Foot Right wo Contrast (11/06/2018 12:05 PM PST) + + | Specimen | + + | | + + + + + | Narrative | Performed At | + + + | EXAM: MRI FOOT RIGHT WO CONTRAST dated 11/05/2018 12:00 AM | [facility] | | HISTORY: osteomyelitis COMPARISON: Radiographs dated 11/05/2017. | | | MRI dated 08/07/2018. TECHNIQUE: Multiplanar multisequence MR | | | imaging of the right forefoot without contrast. Imaging is performed | | | on a 3 Shari MRI. FINDINGS: There is a marker in place on the | | | dorsal aspect of the great toe proximal phalanx. Bones: There | | | is loss of normal marrow fat signal and low signal cortical bone | | | involving the distal and inferior aspect of the great toe distal | | | phalanx. No evidence for fracture. There are diffuse degenerative | | | changes throughout the forefoot and midfoot. There is no | | | evidence for osteomyelitis involving the second digit. Soft | | | tissues: Diffuse subcutaneous edema. No focal fluid collection | | | to suggest abscess. No joint effusions. There is edema within the | | | musculature of the foot. There is a defect involving the distal | | | and plantar surface of the great toe soft tissues. IMPRESSION - | | | Findings consistent with osteomyelitis involving the distal, plantar | | | aspect of the great toe distal phalanx. Diffuse cellulitis. | | | No evidence for an abscess. Edema within the musculature could | | | represent myositis or changes related to diabetic neuropathy. | | | Dictated and Signed by: Jed Jon MD Electronically signed: | | | 11/06/2018 12:33 PM | | + + + + + | Procedure Note | + + | Gloria, Rad Results In - 11/06/2018 12:36 PM PST EXAM: MRI FOOT RIGHT WO CONTRAST dated | | 11/05/2018 12:00 AMHISTORY: osteomyelitisCOMPARISON: Radiographs dated 11/05/2017. MRI | | dated 08/07/2018.TECHNIQUE: Multiplanar multisequence MR imaging of the right forefoot | | withoutcontrast. Imaging is performed on a 3 Shari MRI.FINDINGS: There is a marker in | | place on the dorsal aspect of the great toeproximal phalanx.Bones:There is loss of | | normal marrow fat signal and low signal cortical bone involvingthe distal and inferior | | aspect of the great toe distal phalanx. No evidence forfracture. There are diffuse | | degenerative changes throughout the forefoot andmidfoot.There is no evidence for | | osteomyelitis involving the second digit.Soft tissues: Diffuse subcutaneous edema. No | | focal fluid collection to suggest abscess. Nojoint effusions. There is edema within | | the musculature of the foot. There is adefect involving the distal and plantar surface | | of the great toe soft tissues.IMPRESSION -Findings consistent with osteomyelitis | | involving the distal, plantar aspect ofthe great toe distal phalanx.Diffuse | | cellulitis.No evidence for an abscess.Edema within the musculature could represent | | myositis or changes related todiabetic neuropathy.Dictated and Signed by: Jed Hubbard | | MD [facility] Electronically signed: 11/06/2018 12:33 PM | |fracture. There are diffuse degenerative changes throughout the forefoot and | |midfoot. | | | |There is no evidence for osteomyelitis involving the second digit. | | | |Soft tissues: | | | |Diffuse subcutaneous edema. No focal fluid collection to suggest abscess. No | |joint effusions. There is edema within the musculature of the foot. There is a | |defect involving the distal and plantar surface of the great toe soft tissues. | | | |IMPRESSION - | | | |Findings consistent with osteomyelitis involving the distal, plantar aspect of | |the great toe distal phalanx. | | | |Diffuse cellulitis. | | | |No evidence for an abscess. | | | |Edema within the musculature could represent myositis or changes related to | |diabetic neuropathy. | | | | | |Dictated and Signed by: Jed Jon MD | | Electronically signed: 11/06/2018 12:33 PM | + + + +---------+ + + | Performing | Address | City/State/Zipcode | Phone Number | | Organization | | | | + +---------+ + + | [facility] | | | | + +---------+ + + CBC no Differential (11/06/2018 7:23 AM PST) + + + + + + | Component | Value | Ref Range | Performed | Pathologist | | | | | At | Signature | + + + + + + | White Blood | 8.7 | 4.0 - 11.0 K/uL | [facility] | | | Cells | | | [facility] | | | | | | MEDICAL | | | | | | CENTER - | | | | | | LABORATORY | | + + + + + + | Red Blood | 3.67 (L) | 4.30 - 5.70 | [facility] | | | Cells | | M/uL | [facility] | | | | | | [...] + + + + | Hematocrit | 32.2 (L) | 40.0 - 51.0 % | [facility] | | | | | | [facility] | | | | | | MEDICAL | | | | | | CENTER - | | | | | | LABORATORY | | + + + + + + | MCV | 87.7 | 83.0 - 101.0 fL | [facility] | | | | | | [facility] | | | | | | MEDICAL | | | | | | CENTER - | | | | | | LABORATORY | | + + + + + + | MCH | 28.9 | 28.0 - 35.0 pg | [facility] | | | | | | [facility] | | | | | | MEDICAL | | | | | | CENTER - | | | | | | LABORATORY | | + + + + + + | MCHC | 32.9 | 32.0 - 36.0 | [facility] | | | | | g/dL | [facility] | | | | | | MEDICAL | | | | | | CENTER - | | | | | | LABORATORY | | + + + + + + | RDW-CV | 13.1 | <15.0 % | [facility] | | | | | | [facility] | | | | | | MEDICAL | | | | | | CENTER - | | | | | | LABORATORY | | + + + + + + | RDW-SD | 42.4 | 35.1 - 46.3 fL | [facility] | | | | | | [facility] | | | | | | MEDICAL | | | | | | CENTER - | | | | | | LABORATORY | | + + + + + + | Platelet | 278 | 140 - 440 K/uL | [facility] | | | Count | | | [facility] | | | | | | MEDICAL | | | | | | CENTER - | | | | | | LABORATORY | | + + + + + + | MPV | 10.3 | 6.5 - 12.4 fL | [facility] [...] | | | | WBC's | [facility] | | | | | | MEDICAL | | | | | | CENTER - | | | | | | LABORATORY | | + + + + + + | Absolute | 0.00 | 0.00 - 0.01 | [facility] | | | nRBC | | K/uL | [facility] | [...] + + + + + | [facility] | [address] | [place] | [phone] | | [facility] | | [address] | | | - LABORATORY | | | | + + + + + Basic Metabolic Panel (11/06/2018 7:23 AM PST) + + + + + + | Component | Value | Ref Range | Performed | Pathologist | | | | | At | Signature | + + + + + + | Na | 136 | 136 - 149 | [facility] | | | | | mmol/L | [facility] | | | | | | MEDICAL | | | | | | CENTER - | | | | | | LABORATORY | | + + + + + + | K | 4.0 | 3.5 - 5.1 | [facility] | | | | | mmol/L | [facility] | | | | | | MEDICAL | | | | | | CENTER - | | | | | | LABORATORY | | + + + + + + | Cl | 100 | 98 - 109 mmol/L | [facility] | | | | | | [facility] | | | | | | MEDICAL | | | | | | CENTER - | | | | | | LABORATORY | | + + + + + + | CO2 | 27 | 24 - 31 mmol/L | [facility] | | | | | | [facility] | | [...] + + + + | Glucose | 259 (H) | 70 - 109 mg/dL | [facility] | | | | | | [facility] | | | | | | MEDICAL | | | | | | CENTER - | | | | | | LABORATORY | | + + + + + + | BUN | 18 | 7 - 18 mg/dL | [facility] | | | | | | [facility] | | | | | | MEDICAL | | | | | | CENTER - | | | | | | LABORATORY | | + + + + + + | Creatinine | 1.20 | 0.60 - 1.30 | [facility] | | | | | mg/dL | [facility] | | | | | | MEDICAL | | | | | | CENTER - | | | | | | LABORATORY | | + + + + + + | eGFR, | >60Comment: GLOMERULAR | >=60 | [facility] | | | non- | FILTRATION | mL/min/1.73m2 | [facility] | | | [place] | RATE,ESTIMATED | | MEDICAL | | | | mL/min/1.46s3Dknj than | | CENTER - | | [...] + + + + | Calcium | 8.6 | 8.3 - 10.5 | [facility] | | | | | mg/dL | [facility] | | | | | | [facility] | | | | | | CENTER - | | | | | | LABORATORY | | + + + + + + | BUN/Creatin | 15.0 | | [facility] | | | ine [...] + + | [facility] | [address] | [place] | [phone] | | [facility] | | [address] | | | - LABORATORY | | | | + + + + + Culture, MRSA (11/06/2018 5:08 AM PST) + + + + + + | Component | Value | Ref Range | Performed | Pathologist | | | | | At | Signature | + + + + + + | Culture | Negative for MRSA by | | [facility] | | | | chromogenic agar method | | [facility] | | | | | | MEDICAL | | | | | | CENTER - | | | | | | LABORATORY | | + + + + + + + + | Specimen | + + | Body Fluid - Both | | anterior nares (body | | structure) | + + + + + + + | Performing | Address | City/State/Zipcode | Phone Number | | Organization | | | | + + + + + | [facility] | [address] | [place] | [phone] | | [facility] | | [address] | | | - LABORATORY | | | | + + + + + POC Glucose (11/06/2018 12:37 AM PST) + +---------+ + + + | Component | Value | Ref Range | Performed | Pathologist | | | | | At | Signature | + +---------+ + + + | Glucose, | 428 (H) | 70 - 109 mg/dL | [facility] | | | POC | | | [...] + | [facility] | [address] | [place], [place] | [phone] | | [facility] | | [address] | | | - LABORATORY | | | | + + + + + XR Foot Right 3 + Vw (11/05/2018 9:36 PM PST) + + | Specimen | + + | | + + + + + | Narrative | Performed At | + + + | XR FOOT RIGHT 3 + VW 11/05/2018 9:36 PM HISTORY: FOOT WOUND. | [facility] | | COMPARISON: Multiple priors. FINDINGS: There is no definite | | | evidence for osteomyelitis involving the first digit or elsewhere. | | | Mild degenerative changes are present of the first IP joint and the | | | second through fifth DIP joints. Small spurs are noted of the | | | calcaneus. Bone mineralization is normal. Mild diffuse soft tissue | | | swelling is present. IMPRESSION - No acute osseous findings. | | | Mild diffuse soft tissue swelling consistent with cellulitis. If | | | there is high suspicion of osteomyelitis, MRI can be considered. | | | Dictated and Signed by: Kyle Peoples MD Electronically signed: | | | 11/06/2018 8:47 AM | | + + + + + | Procedure Note | + + | Gloria, Rad Results In - 11/06/2018 8:50 AM PST XR FOOT RIGHT 3 + VW 11/05/2018 9:36 PM | | | | HISTORY: FOOT WOUND. | | | | COMPARISON: Multiple priors. | | | | FINDINGS: | | There is no definite evidence for osteomyelitis involving the first digit or | | elsewhere. Mild degenerative changes are present of the first IP joint and the | | second through fifth DIP joints. Small spurs are noted of the calcaneus. Bone | | mineralization is normal. Mild diffuse soft tissue swelling is present. | | | | IMPRESSION - | | No acute osseous findings. | | | | Mild diffuse soft tissue swelling consistent with cellulitis. | | | | If there is high suspicion of osteomyelitis, MRI can be considered. | | | | Dictated and Signed by: Kyle Peoples MD | | Electronically signed: 11/06/2018 8:47 AM | + + + +---------+ + + | Performing | Address | City/State/Zipcode | Phone Number | | Organization | | | | + +---------+ + + | [facility] | | | | + +---------+ + + Procalcitonin (11/05/2018 9:10 PM PST) + + + + + + | Component | Value | Ref Range | Performed | Pathologist | | | | | At | Signature | + + + + + + | Procalciton | <0.05 | <=0.50 ng/mL | [facility] | | | in | | | [facility] | | | | | | MEDICAL | | | | | | CENTER - | | | | | | LABORATORY | | + + + + + + | Comment | Comment: < 0.50 | | [facility] | | | | ng/mL:Procalcitonin | | [facility] | | | | levels below 0.50 ng/mL | | MEDICAL | | | | on the first day of | | CENTER - | | | | admission represents a | | LABORATORY | | | | low risk for progression | | | | | | to severe sepsis and/or | | | | | | septic shock, however | | | | | | these do not exclude an | | | | | | infection, because | | | | | | localized infections | | | | | | (without systemic signs) | | | | | | may also be associated | | | | | | with such low levels. | | | | | | > 2.00 | | | | | | ng/mL:Procalcitonin | | | | | | levels above 2.00 ng/mL | | | | | | on the first day of | | | | | | admission represents a | | | | | | high risk for | | | | | | progression to severe | | | | | | sepsis and/or septic | | | | | | shock. If the | | | | | | procalcitonin | | | | | | measurement is performed | | | | | | shortly after the | | | | | | systemic infection | | | | | | process has started | | | | | | (usually less than 6 | | | | | | hours), these values may | | | | | | still be low. As | | | | | | various non-infectious | | | | | | conditions are known to | | | | | | induce procalcitonin as | | | | | | well, procalcitonin | | | | | | levels between 0.50 | | | | | | ng/mL and 2.00 ng/mL | | | | | | should be reviewed | | | | | | carefully to take into | | | | | | account the specific | | | | | | clinical background and | | | | | | condition(s) of the | | | | | | individual patient. | | | | + + + + + + + + | Specimen | + + | Blood | + + + + + + + | Performing | Address | City/State/Zipcode | Phone Number | | Organization | | | | + + + + + | [facility] | [address] | [place] | [phone] | | [facility] | | [address] | | | - LABORATORY | | | | + + + + + Culture, Blood (11/05/2018 9:10 PM PST) + + + + + + | Component | Value | Ref Range | Performed | Pathologist | | | | | At | Signature | + + + + + + | Culture | No growth after 5 days | | [facility] | | | | incubation. | | [facility] | | | | | | MEDICAL | | | | | | CENTER - | | | | | | LABORATORY | | + + + + + + + + | Specimen | + + | Blood - Swab of line | | insertion site | | (specimen) | + + + + + + + | Performing | Address | City/State/Zipcode | Phone Number | | Organization | | | | + + + + + | [facility] | [address] | [place] | [phone] | | [facility] | | [address] | | | - LABORATORY | | | | + + + + + Comprehensive Metabolic Panel (11/05/2018 9:10 PM PST) + + + + + + | Component | Value | Ref Range | Performed | Pathologist | | | | | At | Signature | + + + + + + | Na | 137 | 136 - 149 | [facility] | | | | | mmol/L | [facility] | | | | | | MEDICAL | | | | | | CENTER - | | | | | | LABORATORY | | + + + + + + | K | 3.8 | 3.5 - 5.1 | [facility] | | | | | mmol/L | [facility] | | | | | | [facility] | | | | | | CENTER - | | | | | | LABORATORY | | + + + + + + | Cl | 98 | 98 - 109 mmol/L | [facility] | | | | | | [facility] | | | [facility] | | [facility] | | | | | | [facility] - | | | | | | LABORATORY | | + + + + + + | CO2 | 25 | 24 - 31 mmol/L | [facility] | | [facility] | [facility] | | | | | | [facility] | | | | | | CENTER - | | | | | | LABORATORY | | + + + + + + | Anion Gap | 14 | 3 - 16 mmol/L | [facility] | [facility] | | [facility] | | | [facility] | | | | | | [facility] - | | | | | | LABORATORY | | + + + + + + | Glucose | 285 (H) | 70 - 109 mg/dL | [facility] | | | | | [facility] | [facility] | | | | | | [facility] - | | | | | | LABORATORY | | + + + + + + | BUN | 16 | 7 - 18 mg/dL | [facility] | | | | | | [facility] | | | | | | [facility] | | | | | | C[facility] - | | | | | | LABORATORY | | + + + + + + | Creatinine | 1.18 | 0.60 - 1.30 | [facility] | [...] non- | FILTRATION | mL/min/1.73m2 | [facility] | | | [place] | RATE,ESTIMATED | | MEDICAL | | | | mL/min/1.09l0Scvq than | | CENTER - | | [...] + + + + | Calcium | 8.9 | 8.3 - 10.5 | [facility] | | | | | mg/dL | [facility] | | | | | | [facility] | | | | | | CENTER - | | | | | | LABORATORY | | + + + + + + | Albumin | 3.7 | 3.2 - 5.0 g/dL | [facility] | | | | | | [facility] | | | | | | [facility] | | | | | | CENTER - | | | | | | LABORATORY | | + + + + + + | Bilirubin | 0.5Comment: This is an | 0.1 - 1.5 mg/dL | [facility] | | | Total | appended report. These | | [facility] | | | | results have been | | MEDICAL | | | | appended to a previously | | CENTER - | | | | preliminary verified | | LABORATORY | | | | report. | | | | + + + + + + | Total | 6.8 | 6.0 - 7.8 g/dL | [facility] | | | Protein | | | [facility] | | | | | | MEDICAL | | | | | | CENTER - | | | | | | LABORATORY | | + + + + + + | AST | 27Comment: This is an | 10 - 42 U/L | [facility] | | | | appended report. These | | [facility] | | | | results have been | | MEDICAL | | | | appended to a previously | | CENTER - | | | | preliminary verified | | LABORATORY | | | | report. | | | | + + + + + + | ALT | 21Comment: This is an | 6 - 45 U/L | [facility] | | | | appended report. These | | [facility] | | | | results have been | | MEDICAL | | | | appended to a previously | | CENTER - | | | | preliminary verified | | LABORATORY | | | | report. | | | | + + + + + + | Alkaline | 110Comment: This is an | 40 - 110 U/L | [facility] | | | Phosphatase | appended report. These | | [facility] | | | | results have been | | MEDICAL | | | | appended to a previously | | CENTER - | | | | preliminary verified | | LABORATORY | | | | report. | | | | + + + + + + | Globulin | 3.1 | 2.1 - 3.8 g/dL | [facility] | | | | | | [facility] | | | | | | MEDICAL | | | | | | CENTER - | | | | | | LABORATORY | | + + + + + + | Albumin/Michelle | 1.2 | 0.8 - 2.0 | [facility] | | | bulin Ratio | | | [facility] | | | | | | MEDICAL | | | | | | CENTER - | | | | | | LABORATORY | | + + + + + + | BUN/Creatin | 13.6 | | [facility] | | | ine [...] | + + + + + | [facility] | [address] | [place] | [phone] | | [facility] | | [address] | | | - LABORATORY | | | | + + + + + CBC with Differential (11/05/2018 9:10 PM PST) + + + + + + | Component | Value | Ref Range | Performed | Pathologist | | | | | At | Signature | + + + + + + | White Blood | 9.3 | 4.0 - 11.0 K/uL | [facility] | | | Cells | | | [facility] | | | | | | MEDICAL | | | | | | CENTER - | | | | | | LABORATORY | | + + + + + + | Red Blood | 3.73 (L) | 4.30 - 5.70 | [facility] | | | Cells | | M/uL | [facility] | | | | | | MEDICAL | | | | | | CENTER - | | | | | | LABORATORY | | + + + + + + | Hemoglobin | 10.8 (L) | 13.5 - 18.0 | [facility] | | | | | g/dL | [facility] | | | | | | MEDICAL | | | | | | CENTER - | | | | | | LABORATORY | | + + + + + + | Hematocrit | 32.6 (L) | 40.0 - 51.0 % | [facility] | | | | | | [facility] | | | | | | MEDICAL | | | | | | CENTER - | | | | | | LABORATORY | | + + + + + + | MCV | 87.4 | 83.0 - 101.0 fL | [facility] | | | | | | [facility] | | | | | | MEDICAL | | | | | | CENTER - | | | | | | LABORATORY | | + + + + + + | MCH | 29.0 | 28.0 - 35.0 pg | [facility] | | | | | | [facility] | | | | | | MEDICAL | | | | | | CENTER - | | | | | | LABORATORY | | + + + + + + | MCHC | 33.1 | 32.0 - 36.0 | [facility] | | | | | g/dL | [facility] | | | | | | MEDICAL | | | | | | CENTER - | | | | | | LABORATORY | | + + + + + + | RDW-CV | 12.7 | <15.0 % | [facility] | | | | | | [facility] | | | | | | MEDICAL | | | | | | CENTER - | | | | | | LABORATORY | | + + + + + + | RDW-SD | 40.9 | 35.1 - 46.3 fL | [facility] | | | | | | [facility] | | | | | | MEDICAL | | | | | | CENTER - | | | | | | LABORATORY | | + + + + + + | Platelet | 281 | 140 - 440 K/uL | [facility] | | | Count | | | [facility] | | | | | | MEDICAL | | | | | | CENTER - | | | | | | LABORATORY | | + + + + + + | MPV | 10.5 | 6.5 - 12.4 fL | [facility] | | | | | | [facility] | | | | | | MEDICAL | | | | | | CENTER - | | | | | | LABORATORY | | + + + + + + | % | 67.4 | 45.0 - 82.0 % | [facility] | | | Neutrophils | | | [facility] | | | | | | MEDICAL | | | | | | CENTER - | | | | | | LABORATORY | | + + + + + + | % | 20.6 | 20.0 - 45.0 % | [facility] | | | Lymphocytes | | | [facility] | | | | | | MEDICAL | | | | | | CENTER - | | | | | | LABORATORY | | + + + + + + | % Monocytes | 7.5 | 4.0 - 12.0 % | [facility] [...] + + + | % Immature | 0.2 | 0.0 - 0.4 % | [facility] | | | Granulocyte | | | [facility] | | | s | | | MEDICAL | | | | | | CENTER - | | | | | | LABORATORY | | + + + + + + | Absolute | 6.29 | 1.80 - 8.50 | [facility] | | | Neutrophils | | K/uL | [facility] | | | | | | MEDICAL | | | | | | CENTER - | | | | | | LABORATORY | | + + + + + + | Absolute | 1.92 | 0.60 - 3.20 | [facility] | | | Lymphocytes | | K/uL | [facility] | | | | | | MEDICAL | | | | | | CENTER - | | | | | | LABORATORY | | + + + + + + | Absolute | 0.70 | 0.00 - 1.00 | [facility] | | | Monocytes | | K/uL | [facility] | | | | | | MEDICAL | | | | | | CENTER - | | | | | | LABORATORY | | + + + + + + | Absolute | 0.33 | 0.00 - 0.40 | [facility] | | | Eosinophils | | K/uL | [facility] | | | | | | MEDICAL | | | | | | CENTER - | | | | | | LABORATORY | | + + + + + + | Absolute | 0.07 | 0.00 - 0.10 | [facility] | | | Basophils | | K/uL | [facility] | | | | | | MEDICAL | | | | | | CENTER - | | | | | | LABORATORY | | + + + + + + | Absolute | 0.02 | 0.00 - 0.03 | [facility] | [...] | | | | WBC's | [facility] | | | | | | MEDICAL | | | | | | CENTER - | | | | | | LABORATORY | | + + + + + + | Absolute | 0.00 | 0.00 - 0.01 | [facility] | | | nRBC | | K/uL | [facility] | [...] [address] | [place] | [phone] | | [facility] | | [address] | | | - LABORATORY | | | | + + + + + Lactic Acid (11/05/2018 9:08 PM PST) + + + + + + | Component | Value | Ref Range | Performed | Pathologist | | | | | At | Signature | + + + + + + | Lactate | <0.4 (L) | 0.5 - 2.2 | [facility] | | | | | mmol/L | [facility] | | | | [...] | + + + + + | [facility] | [address] | [place] | [phone] | | [facility] | | [address] | | | - LABORATORY | | | | + + + + + Culture, Blood (11/05/2018 9:08 PM PST) + + + + + + | Component | Value | Ref Range | Performed | Pathologist | | | | | At | Signature | + + + + + + | Culture | No growth after 5 days | | [facility] | | | | incubation. | | [facility] | | | | | | MEDICAL | | | | | | CENTER - | | | | | | LABORATORY | | + + + + + + + + | Specimen | + + | Blood - Peripheral | | blood specimen | | (specimen) | + + + + + + + | Performing | Address | City/State/Zipcode | Phone Number | | Organization | | | | + + + + + | [facility] | [address] | [place] | [phone] | | [facility] | | [address] | | | - LABORATORY | | | | + + + + + IMAGING REPORT - EXTERNAL SCAN (04/10/2012 12:00 AM PDT) + + + | Narrative | Performed At | + + + | Ordered by an | | | unspecified provider. | | + + + documented in this encounter Visit Diagnoses Not on filedocumented in this encounter Administered Medications + +--------+ + +------+------+ | Medication Order | MAR | Action | Dose | Rate | Site | | | Action | Date | | | | + +--------+ + +------+------+ | acetaminophen (TYLENOL) tablet | Given | 11/11/19 | 1,000 mg | | | | 1,000 mg 1,000 mg, Oral, EVERY 4 | | 19 9:42 | | | | | HOURS PRN, Pain, or fever >= | | AM PST | | | | | 38.6 C (101.5 F), Starting Tue | | | | | | | 11/10/18 at 1539 | | | | | | + +--------+ + +------+------+ +---+---+ | | | +---+---+ + +-------+ +--------+---+---+ | ascorbic acid (VITAMIN C) | Given | 11/11/19 | 500 mg | | | | tablet 500 mg 500 mg, Oral, | | 19 8:51 | | | | | TIMES DAILY, First dose on Fri | | AM PST | | | | | 11/10/18 at 2100 | | | | | | + +-------+ +--------+---+---+ +-------+ +--------+---+---+ | Given | 11/10/19 | 500 mg | | | | | 19 10:08 | | | | | | PM PST | | | | +-------+ +--------+---+---+ + +---+ | | | + +---+ | cyclobenzaprine (FLEXERIL) | | | tablet 10 mg 10 mg, Oral, EVERY | | | 8 HOURS PRN, Muscle spasms, | | | muscle ache, Starting 11/11/18 | | | at 0745, Hold for somnolence, | | + +---+ | | | + +---+ | dextrose 50% injection 12.5 g | | | 12.5 g, Intravenous, PRN, Low | | | Blood Sugar, Starting 11/06/18 | | | at 0003 | | + +---+ | | | + +---+ + +-------+ +-------+---+ + | enoxaparin (LOVENOX) 40 mg/0.4 | Given | 11/11/19 | 40 mg | | Abdomen- | | mL injection 40 mg 40 mg, | | 19 8:50 | | | LLQ | | Subcutaneous, EVERY 24 HOURS | | AM PST | | | | | (Daily), First dose on Fri | | | | | | | 11/10/18 at 0900 | | | | | | + +-------+ +-------+---+ + +-------+ +-------+---+ + | Given | 11/10/19 | 40 mg | | Abdomen- | | | 19 9:10 | | | LLQ | | | AM PST | | | | +-------+ +-------+---+ + + +---+ | | | + +---+ | insulin glargine (LANTUS | | | SOLOSTAR) injection (pen) 15 | | | Units 15 Units, Subcutaneous, | | | DAILY EVENING, First dose on Fri | | | 11/11/18 at 1800, For subcutaneous | | | use only. Basal (long acting) | | | insulin., | | + +---+ | | | + +---+ + +-------+ + +---+ + | insulin glargine (LANTUS | Given | 11/11/19 | 45 Units | | Abdomen- | | SOLOSTAR) injection (pen) 45 | | 19 8:46 | | | RLQ | | Units 45 Units, Subcutaneous, | | AM PST | | | | | EVERY MORNING, First dose (after | | | | | | | last modification) on Fri11/11/18 | | | | | | | at 0900, For subcutaneous use | | | | | | | only. Basal (long acting) | | | | | | | insulin., | | | | | | + +-------+ + +---+ + +---+---+ | | | +---+---+ + +-------+ +---------+---+ + | insulin lispro (humaLOG | Given | 11/11/19 | 8 Units | | Leg-Left | | KWIKPEN) injection (pen) 0-12 | | 19 11:54 | | | Upper | | Units 0-12 Units, Subcutaneous, | | AM PST | | | | | 4 TIMES DAILY WITH MEALS & | | | | | | | NIGHTLY, First dose on Fri | | | | | | | 11/06/18 at 0800, CORRECTION | | | | | | | SCALE: Blood Glucose (BG) < | | | | | | | 150: None BG | | | | | | | 150-200: DAY: 2 units. NIGHT: | | | | | | | 0 units BG 201-250: DAY: 4 | | | | | | | units. NIGHT: 2 units BG | | | | | | | 251-300: DAY: 6 units. NIGHT: | | | | | | | 4 units BG 301-350: DAY: 8 | | | | | | | units. NIGHT: 6 units BG | | | | | | | 351-400: DAY: 10 units. NIGHT: 8 | | | | | | | units BG > 400 : DAY: 12 | | | | | | | units. NIGHT: 10 units | | | | | | | AND CALL PROVIDER | | | | | | | , Use DAY DOSE for doses | | | | | | | scheduled: AC, NPO, Daytime | | | | | | | 5342-1222 Use NIGHT DOSE for | | | | | | | doses scheduled: HS, 3AM, | | | | | | | Nighttime 9803-2200, | | | | | | + +-------+ +---------+---+ + +-------+ + +---+ + | Given | 11/11/19 | 10 Units | | Arm-Righ | | | 19 8:46 | | | t Upper | | | AM PST | | | | +-------+ + +---+ + | Given | 11/10/19 | 8 Units | | Arm-Left | | | 19 10:19 | | | Upper | | | PM PST | | | | +-------+ + +---+ + +---+---+ | | | +---+---+ + +-------+ + +---+ + | insulin lispro (humaLOG | Given | 11/11/19 | 15 Units | | Leg-Left | | KWIKPEN) injection (pen) 15 Units | | 19 11:54 | | | Upper | | 15 Units, Subcutaneous, 3 TIMES | | AM PST | | | | | DAILY WITH MEALS, First dose | | | | | | | (after last modification) on Fri | | | | | | | 11/11/18 at 0800 | | | | | | + +-------+ + +---+ + +-------+ + +---+ + | Given | 11/11/19 | 15 Units | | Arm-Left | | | 19 8:46 | | | Upper | | | AM PST | | | | +-------+ + +---+ + +---+---+ | | | +---+---+ + +---------+ +---------+---+ + | lidocaine (LIDODERM) 5% patch 2 | Patch | 11/11/19 | 2 | | Neck-Pos | | patch 2 patch, Transdermal, | Applied | 19 8:53 | patches | | terior | | DAILY, First dose on Fri11/10/18 | | AM PST | | | | | at 1545, Posterior | | | | | | | neck/c-spine/upper Tspine Apply | | | | | | | for 12 hours, then remove for 12 | | | | | | | hours., Time to remove patch: | | | | | | | 9:17 AM | | | | | | + +---------+ +---------+---+ + + + +---------+---+ + | Patch Applied | 11/10/19 | 2 | | Neck-Pos | | | 19 4:30 | patches | | terior | | | PM PST | | | | + + +---------+---+ + +---+---+ | | | +---+---+ + +-------+ +-------+---+---+ | methadone tablet 40 mg 40 mg, | Given | 11/11/19 | 40 mg | | | | Oral, EVERY 8 HOURS (3 times per | | 19 2:13 | | | | | day), First dose (after last | | PM PST | | | | | modification) on Fri11/09/18 at | | | | | | | 1400 | | | | | | + +-------+ +-------+---+---+ +-------+ +-------+---+---+ | Given | 11/11/19 | 40 mg | | | | | 19 6:25 | | | | | | AM PST | | | | +-------+ +-------+---+---+ | Given | 11/10/19 | 40 mg | | | | | 19 10:18 | | | | | | PM PST | | | | +-------+ +-------+---+---+ +---+---+ | | | +---+---+ + +-------+ +------+---+---+ | nicotine polacrilex (COMMIT) | Given | 11/11/19 | 4 mg | | | | lozenge 4 mg 4 mg, Oral, PRN, | | 19 10:02 | | | | | Nicotine Craving, Starting Wed | | AM PST | | | | | 11/11/18 at 0941 | | | | | | + +-------+ +------+---+---+ +---+---+ | | | +---+---+ + +-------+ +-------+---+---+ | pantoprazole (PROTONIX) DR | Given | 11/11/19 | 40 mg | | | | tablet 40 mg 40 mg, Oral, DAILY | | 19 6:27 | | | | | BEFORE BREAKFAST, First dose on | | AM PST | | | | | 11/06/18 at 0730, Indication: | | | | | | | GERD | | | | | | + +-------+ +-------+---+---+ +-------+ +-------+---+---+ | Given | 11/10/19 | 40 mg | | | | | 19 5:50 | | | | | | AM PST | | | | +-------+ +-------+---+---+ | Given | 11/09/19 | 40 mg | | | | | 19 6:38 | | | | | | AM PST | | | | +-------+ +-------+---+---+ +---+---+ | | | +---+---+ + +---------+ +---------+ +---+ | piperacillin-tazobactam (ZOSYN) | New Bag | 11/11/19 | 3.375 g | 25 mL/hr | | | 3.375 g in sodium chloride 0.9% | | 19 9:43 | | | | | 100 mL IVPB 3.375 g, | | AM PST | | | | | Intravenous, Administer over 4 | | | | | | | Hours, EVERY 8 HOURS INTERVAL, | | | | | | | First dose on Fri11/06/18 at | | | | | | | 0200, Initiate this | | | | | | | extended-infusion order 4 hours | | | | | | | after the bolus dose was given; | | | | | | | note that order frequency is 8 | | | | | | | hours as intended, but the first | | | | | | | dose of this 4-hour | | | | | | | extended-infusion must begin 4 | | | | | | | hours post-bolus (then given | | | | | | | every 8 hours thereafter)., | | | | | | | Activate system and mix before | | | | | | | use., Indications: Cellulitis | | | | | | + +---------+ +---------+ +---+ +---------+ +---------+ +---+ | New Bag | 11/11/19 | 3.375 g | 25 mL/hr | | | | 19 2:19 | | | | | | AM PST | | | | +---------+ +---------+ +---+ | New Bag | 11/10/19 | 3.375 g | 25 mL/hr | | | | 19 6:20 | | | | | | PM PST | | | | +---------+ +---------+ +---+ + +---+ | | | + +---+ | pregabalin (LYRICA) capsule 100 | | | mg 100 mg, Oral, 2 TIMES DAILY | | | 0800 & 1800, First dose (after | | | last modification) on Fri11/11/18 | | | at 1800 | | + +---+ | | | + +---+ + +-------+ +--------+---+---+ | tamsulosin (FLOMAX) capsule 0.4 | Given | 11/11/19 | 0.4 mg | | | | mg 0.4 mg, Oral, DAILY AFTER | | 19 8:50 | | | | | BREAKFAST, First dose on Fri | | AM PST | | | | | 11/06/18 at 0900, May open capsule | | | | | | | and sprinkle over acidic soft | | | | | | | food (applesauce, yogurt) or in a | | | | | | | small quantity of acidic fruit | | | | | | | juice (orange, grape). Do not | | | | | | | crush, chew or dissolve | | | | | | | granules., | | | | | | + +-------+ +--------+---+---+ +-------+ +--------+---+---+ | Given | 11/10/19 | 0.4 mg | | | | | 19 8:46 | | | | | | AM PST | | | | +-------+ +--------+---+---+ | Given | 11/09/19 | 0.4 mg | | | | | 19 8:16 | | | | | | AM PST | | | | +-------+ +--------+---+---+ +---+---+ | | | +---+---+ + +-------+ +---+---+---+ | trolamine salicylate | Given | 11/11/19 | | | | | (ASPERCREME) 10% cream Topical, | | 19 8:57 | | | | | 4 TIMES DAILY, First dose on Fri | | AM PST | | | | | 11/10/18 at 1700, Hold if worse | | | | | | | pain or worse redness, | | | | | | + +-------+ +---+---+---+ +-------+ +---+---+---+ | Given | 11/10/19 | | | | | | 19 10:23 | | | | | | PM PST | | | | +-------+ +---+---+---+ | Given | 11/10/19 | | | | | | 19 4:33 | | | | | | PM PST | | | | +-------+ +---+---+---+ +---+---+ | | | +---+---+ + +---------+ +-----+--------+---+ | vancomycin 1 g in sodium | New Bag | 11/11/19 | 1 g | 166.7 | | | chloride 0.9% 250 mL IVPB 1 g, | | 19 2:14 | | mL/hr | | | Intravenous, Administer over 90 | | PM PST | | | | | Minutes, EVERY 8 HOURS INTERVAL, | | | | | | | First dose (after last | | | | | | | modification) on 11/08/18 at | | | | | | | 0200, Activate system and mix | | | | | | | before use., Indications: | | | | | | | Osteomyelitis | | | | | | + +---------+ +-----+--------+---+ + + +-----+--------+---+ | New Bag | 11/11/19 | 1 g | 166.7 | | | | 19 6:22 | | mL/hr | | | | AM PST | | | | + + +-----+--------+---+ | Restarted | 11/10/19 | 1 g | 166.7 | | | | 19 10:42 | | mL/hr | | | | PM PST | | | | + + +-----+--------+---+ + +---+ | | | + +---+ | vancomycin per pharmacy | | | PHARMACY CONSULT, Starting [place] | | | 11/05/18 at 2102, Indications: | | | Cellulitis | | + +---+ | | | + +---+ + +-------+ +--------+---+---+ | zinc sulfate capsule 220 mg | Given | 11/11/19 | 220 mg | | | | 220 mg, Oral, DAILY, First dose | | 19 8:51 | | | | | on 11/10/18 at 1600 | | AM PST | | | | + +-------+ +--------+---+---+ +-------+ +--------+---+---+ | Given | 11/10/19 | 220 mg | | | | | 19 5:28 | | | | | | PM PST | | | | +-------+ +--------+---+---+ +---+---+ | | | +---+---+ documented in this encounter
--- OUTSIDE RECORDS SUMMARY | ~2020-06-16 | XMS | Encounter Summary ---
Demographics + + + | Address | [address] | | | [place] [address] | + + + | Home Phone | | + + + | Preferred Language | Unknown | + + + | Marital Status | | + + + | Shinto Affiliation | Unknown | + + + | Race | White | + + + | Ethnic Group | Not or | + + + Author + + + | Author | [facility] | | | and [place] | + + + | Organization | [facility] | | | and [...] [place], | | | | | [place] [address] | | + + + + + Care Team Providers + +------+ + | Care Cardiovascular Rn Name | Role | Phone | + [...] | +--------+ + + + + | 11/05/ | Hospital | [facility] | Don Loving MD | Cellulitis, | | 2019 - | Encounter | MED [facility] SUR[facility] | [address] | unspecified | | | | [address] [place] | [place], [place] | cellulitis site | | 11/11/ | | [place] [address] | [phone] | (Primary Dx); | | 2019 | | [phone] | | Cellulitis of left | | | | | Bobby Mcfarland MD | leg; Acute | | | | | [address] | osteomyelitis of toe | | | | | [place], [place] | of right foot | | | | | [id number] | (HCC); Uncontrolled | | | | | | type 2 diabetes | | | | | | mellitus with | | | | | | hyperglycemia ([facility]); | | | | | | 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 E lectronically signed by Beth Rela RN at 11/11/2018 4:43 PM Beth Lozano RN - 019 2:00 PM PSTPharmacy stated that vanco level is wnl and to admin vanco as orderedElectro nically signed by Beth Real RN at 11/11/2018 4:36 PM Isaura Robertson, PharmAdrien - 11/11/19 19 1:04 PM PST VANCOMYCIN [...] of Adverse effect of anesthesia; Diabetes mellitus ([facility]); Diabetes mellitus type I I, ORAL Control (10/28/2011); Elevated cholesterol; Elevated hemoglobin A1c (11/07/2018); Emphy sema of lung ([facility]); GERD (gastroesophageal reflux disease); Immune deficiency disorder ([facility]) ; Osteoporosis; PONV (postoperative nausea and vomiting); Seizure ([facility]); Testosterone defici ency; and Vitamin [...] Component Value Units Date/Time Culture, Wound, Smear [[id number]] Collected: 11/07/18 1325 Order Status: Completed Lab Status: Preliminary result Updated: 11/11/18 0908 Specimen: Tissue from Foot, Left Culture Culture in progress... Gram Positive Cocci Comment: Isolating for additional information. Isolated from broth subculture. Gram Positive Rods Comment: Isolated from broth subculture. Identification to follow. Gram Stain Result No white blood cells (PMNs) seen No organisms seen Culture, Tissue, Smear, with Anaerobes [[id number]] Collected: 11/07/18 1310 Order Status: Sent Lab Status: In process Updated: 11/07/182040 Specimen: Tissue from Toe, Great, Right Narrative: The following orders were created for panel order Culture, Tissue, Smear, with Anaerobes. Procedure Abnormality Status --------- ------ Culture, Anaerobe[[id number]] Normal Preliminary result Culture, Tissue, Smear, ...[[id number]] Please view results for these tests on the individual orders. Culture, Anaerobe [[id number]] (Normal) Collected: 11/07/18 1310 Order Status: Completed Lab Status: Preliminary result Updated: 11/10/18 1010 Specimen: Tissue from Toe, Great, Right Culture No anaerobes isolated to date. Culture, Tissue, Smear, Aerobe [[id number]] Order Status: Canceled Lab Status: No result Specimen: Tissue from Toe, Great, Right Culture, MRSA [[id number]] (Normal) Collected: 11/06/18 0508 Order Status: Completed Lab Status: Final result Updated: 11/07/18 0649 Specimen: Body Fluid from Nares Culture Negative for MRSA by chromogenic agar method Culture, Blood [[id number]] (Normal) Collected: 11/05/18 2110 Order Status: Completed Lab Status: Final result Updated: 11/10/182120 Specimen: Blood from Line Culture No growth after 5 days incubation. Culture, Blood [[id number]] (Normal) Collected: 11/05/182107 Order Status: Completed Lab [...] 0642 11/07/18 1131 11/07/18 0549 11/06/18 0723 11/05/18210911/05/182107 WBC -- 10.3 -- 9.2 -- 8.0 [...] signed by: Isaura Yepez PharmD 11/11/2018 15:44 eth Real RN - 11/11/2018 11:40 AM PSTTook blood sugar and administered insulin per protocal rJose newberry MD - 11/11/19 11:19 AM PST [facility] PROGRESS NOTE Pt. Name/Age/: Cecilio Arias 48 y.o. 1970 Med. Record Number: [id number] Date of admission: 11/05/2018 Subjective: The patient [...] [facility] Objective: Temp: (!) 38.1 C [...] Electronically signed by: Jose Nash, 11/11/2018 11:19 [facility] ipf, Beth Cortez RN - 11/11/2018 10:30 AM PSTPt was [...] and said "avinash". He was sleeping. ch jaswant sat up out of bed and began [...] s but would not sing the form Ludivina Treadwell RN - 11/11/2018 8:40 AM PSTChris removed his IV tubing. He was asked to call the nurse next time so we can unhook his iv and keep the tubing clean. Pt said "ok"E lectronically signed by Ludivina Mcneil RN at 11/11/2018 10:42 AM Fransisco Robertson MD - 10/24 7:43 AM PST [place], [place] HOSPITALIST DISCHARGE SUMMARY Pt. Name/Age/: Cecilio [...] toe amputation and declines now and with custom clothier and with orthopedic surg rajinder. Cultures by custom clothier in July 2018. He reportedly had gram-positive organism sens itive to beta lactams, Serratia, and Pseudomonas present. Treated w/ cefepime. 11/05 vancomycin and Zosyn [...] the last MRI of his cervical spine sergei herrera syrinx was obtained at [facility] in [place]. -trial lyrica-increased and prescribed, dc gabapentin, re-trial [...] it's unlikely we'll find a primary care p ana m willing to prescribe this medication for him. [...] conveyed to the ordering provider, by the hide house supervisor, immediately following the exam. Dictated and Signed by: Fabien Michelle MD Electronically signed: 11/09/2018 9:54 AM Fransisco Yepez 11/11/2018 18:24 [facility] PROCEDURES AND CONSULTS: Saad toe biopsy PENDING RESULTS: Toe culture DISPOSITION AND DISCHARGE INSTRUCTIONS: Follow-up Information Russell Sanabria MD On 11/19/2018. Specialty: Family Medicine Why: Please check in at 2:30pm for an appt with Dr Sanabria @ 2:40 pm. Bring photo ID, insura nce card, and medication list. Contact information: [address] [id number] [facility] On 11/17/2018. Why: Follow up Dr. Ruiz, On Friday at 1:15pm Contact information: [address] [facility] [address] F/u Dr Nash for suture removal Condition: Patient being discharged with condition improved Diet: For your reference, current, active order is: There are no active orders of the following type(s): Diet. Diabetic diet handouts given to patient greater than 30 minutes were spent on discharge and coordination of post-hospital care. Electronically signed by: Fransisco Yepez MD, 11/11/2018 18:25 [facility] Portions of this chart may have been created with [employer] voice recognition software. Occasi onal wrong-word or [...] of Adverse effect of anesthesia; Diabetes mellitus ([facility]); Diabetes mellitus type I I, ORAL Control (10/28/2011); Elevated cholesterol; Elevated hemoglobin A1c (11/07/2018); Emphy sema of lung ([facility]); GERD (gastroesophageal reflux disease); Immune deficiency disorder ([facility]) ; Osteoporosis; PONV (postoperative nausea and vomiting); Seizure ([facility]); Testosterone defici ency; and Vitamin [...] Component Value Units Date/Time Culture, Wound, Smear [[id number]] Collected: 11/07/18 1325 Order Status: Completed Lab Status: Preliminary result Updated: 11/09/18 0740 Specimen: Tissue from Foot, Left Culture Culture in progress... Gram Positive Cocci Comment: Isolating for additional information. Isolated from broth subculture. Gram Stain Result No white blood cells (PMNs) seen No organisms seen Culture, Tissue, Smear, with Anaerobes [[id number]] Collected: 11/07/18 1310 Order Status: Sent Lab Status: In process Updated: 11/07/18 204 Specimen: Tissue from Toe, Great, Right Narrative: The following orders were created for panel order Culture, Tissue, Smear, with Anaerobes. Procedure Abnormality Status --------- ------ Culture, Anaerobe[[id number]] Normal Preliminary result Culture, Tissue, Smear, ...[[id number]] Please view results for these tests on the individual orders. Culture, Anaerobe [[id number]] (Normal) Collected: 11/07/18 1310 Order Status: Completed Lab Status: Preliminary result Updated: 11/10/18 1010 Specimen: Tissue from Toe, Great, Right Culture No anaerobes isolated to date. Culture, Tissue, Smear, Aerobe [[id number]] Order Status: Canceled Lab Status: No result Specimen: Tissue from Toe, Great, Right Culture, MRSA [[id number]] (Normal) Collected: 11/06/18 0508 Order Status: Completed Lab Status: Final result Updated: 11/07/18 0649 Specimen: Body Fluid from Nares Culture Negative for MRSA by chromogenic agar method Culture, Blood [[id number]] (Normal) Collected: 02/14/19 2110 Order Status: Completed Lab Status: Preliminary result Updated: 11/08/182120 Specimen: Blood from Line Culture No growth: Monitored continually by instrument for 5 days Culture, Blood [[id number]] (Normal) Collected: 11/05/182107 Order Status: Completed Lab [...] 0642 11/07/18 1131 11/07/18 0549 11/06/18 0723 11/05/18210911/05/182107 WBC 10.3 -- 9.2 -- 8.0 -- [...] MD - 11/10/2018 8:13 AM PS T [facility] PROGRESS NOTE Pt. Name/Age/: Cecilio Arias 48 y.o. 1970 Med. Record Number: [id number] Date of admission: 11/05/2018 Subjective: The patient [...] Electronically signed by: Jose Nash, 11/10/2018 8:13 [facility] Cydney Robertson MD - 11/10/2018 7:04 AM PST [facility] Hospitalist Progress Note Cecilio Arias is a 48 y.o. male ASSESSMENT and PLAN: Hospital Day: 6 1. Right leg cellulitis with right great and distal toes osteomyelitis. -July 2018, 5 week antibiotics for great toe osteomyelitis. At that time he refused gr eat toe amputation and declines now. Cultures obtained by custom clothier in July 2018. He re portedly had [...] the last MRI of his cervical spine sergei sullivang syrinx was obtained at [facility] in [place]. -trial obduliarica, amee gabapentin, re-trial flexiril, aspercream to leg, lidocaine [...] conveyed to the ordering provider, by the hide house supervisor, immediately following the exam. Dictated and Signed by: Fabien Michelle MD Electronically signed: 11/09/2018 9:54 AM Total time of approximately 25 minutes was spent with the patient and/or patient's family, and/or on the patient's floor/unit, of which more than 50% was spent counseling and/or coord ination the patient's care as outlined above. Rossana-Hwa Marleni 11/10/2018 7:04 [facility] Isaura Robertson, Loyd - 11/09/2018 5:58 PM PST VANCOMYCIN PER [...] of Adverse effect of anesthesia; Diabetes mellitus ([facility]); Diabetes mellitus type I I, ORAL Control (10/28/2011); Elevated cholesterol; Elevated hemoglobin A1c (11/07/2018); Emphy sema of lung ([facility]); GERD (gastroesophageal reflux disease); Immune deficiency disorder ([facility]) ; Osteoporosis; PONV (postoperative nausea and vomiting); Seizure ([facility]); Testosterone defici ency; and Vitamin [...] Component Value Units Date/Time Culture, Wound, Smear [[id number]] Collected: 11/07/18 1325 Order Status: Completed Lab Status: Preliminary result Updated: 11/09/18 0740 Specimen: Tissue from Foot, Left Culture Culture in progress... Gram Positive Cocci Comment: Isolating for additional information. Isolated from broth subculture. Gram Stain Result No white blood cells (PMNs) seen No organisms seen Culture, Tissue, Smear, with Anaerobes [[id number]] Collected: 11/07/18 1310 Order Status: Sent Lab Status: In process Updated: 11/07/182040 Specimen: Tissue from Toe, Great, Right Narrative: The following orders were created for panel order Culture, Tissue, Smear, with Anaerobes. Procedure Abnormality Status --------- ------ Culture, Anaerobe[[id number]] In process Culture, Tissue, Smear, ...[[id number]] Please view results for these tests on the individual orders. Culture, Anaerobe [[id number]] Collected: 11/07/181309 Order Status: Sent Lab Status: In process Updated: 11/07/181325 Specimen: Tissue from Toe, Great, Right Culture, Tissue, Smear, Aerobe [[id number]] Order Status: Canceled Lab Status: No result Specimen: Tissue from Toe, Great, Right Culture, MRSA [[id number]] (Normal) Collected: 11/06/18 0508 Order Status: Completed Lab Status: Final result Updated: 11/07/18 0649 Specimen: Body Fluid from Nares Culture Negative for MRSA by chromogenic agar method Culture, Blood [[id number]] (Normal) Collected: 11/05/182109 Order Status: Completed Lab Status: Preliminary result Updated: 11/08/182120 Specimen: Blood from Line Culture No growth: Monitored continually by instrument for 5 days Culture, Blood [[id number]] (Normal) Collected: 11/05/182107 Order Status: Completed Lab [...] 0642 11/07/18 1131 11/07/18 0549 11/06/18 0723 11/05/18210911/05/18 2108 WBC -- 9.2 -- 8.0 -- [...] 11/08 11/09 Time of Vancomycin draw -- 1131 1713 1711 Vancomycin result -- 11.9 16 [...] Hoff MD - 11/09/2018 5:48 PM PST [facility]G Hospitalist Progress Note Cecilio Arias is [...] therapy but declined surgery. Cultures obtained by custom clothier in July 2018 been requested but thus [...] ical spine documenting syrinx was obtained at [facility] in [place]. 3. Diabetes mellitus Currently her control is [...] neck documenting his syrinx was performed at [facility] in [facility] I have asked medical records to obtain [...] Intake/Output Summary (Last 24 hours) at 11/09/18 1548 Last data filed at 11/09/18 1300 Gross [...] conveyed to the ordering provider, by the hide house supervisor, immediately following the exam. Dictated and Signed by: Fabien Michelle MD Electronically signed: 11/09/2018 9:54 AM Total time of approximately 25 minutes was spent with the patient and/or patient's family, and/or on the patient's floor/unit, of which more than 50% was spent counseling and/or coord ination the patient's care as outlined above. Frederick Arciniega 11/09/2018 17:48 [facility] Portions of this chart may have been created with [employer] voice recognition software. Occasi onal wrong-word or sound-alike substitutions may have occurred due to the inherent stevens itations of voice recognition software. Please read the chart carefully and recognize, using context, where these substitutions have occurred Miguelina Grajeda, Pharm D - 11/09/2018 2:50 PM PST PHARMACY SERVICES: ADMISSION MEDICATION REVIEW Ceiclio Arias is a 48 y.o. male admitted on 11/05/2018. Patient is not a reliable historian. Location of Patient when reviewed: ED X Medical Floor Patient s prior to admit medication and over the counter (OTC) medications/herbal supplem ents list obtained from: X Verbal interview X Patient able to recall SOME Name, strength, and directions X Doctor's office: [facility] X Pharmacy list names: [facility] X [place] [employer] SALES SERVICE SUPERVISOR (Prescription Monitoring Program) X [place] SALES SERVICE SUPERVISOR (Prescription Monitoring Program) X [employer] insurance reported [...] since 08/09/2018 either at pharmacy or on [place] or [place] PDMPs. 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 States that a copy of this report is available to providers. Medication: Prior to Admission Sig: Patient taking differently SENIOR RECEPTIONIST as: Cyclobenzaprine 10 mg tab 1 tab PO three times per day 1 tab PO three times per day PRN Best possible SENIOR RECEPTIONIST medication list after pharmacy review: PT REPORTED TAKING NOT TAKING Medication Sig Last Dose Dispense Doc. Provider amphetamine-dextroamphetamine (ADDERALL XR) 30 MG 24 hr capsule take 1 capsule by mouth on daily Taking Bridger Cowan NP atorvaSTATin (LIPITOR) 40 mg tablet Take 40 mg by mouth Daily. Mi Jane MD cyclobenzaprine (FLEXERIL) 10 mg tablet 1 tablet orally 3 times per day 90 tablet Will Capellan MD dapagliflozin (FARXIGA) 10 mg tablet Take 1 tablet by mouth Daily. Taking 30 tablet Srikanth Vaughn DO ergocalciferol (VITAMIN D-2) 50,000 units capsule Take 50,000 Units by mouth Once a week. On Taking Mi Jane MD gabapentin (NEURONTIN) 600 MG tablet take 1 tablet by mouth three times a day Taking Dary Jane MD glucose blood test strips (TERRI CONTOUR TEST) strip Use as dir 100 each Will rosenberg MD lisinopril (PRINIVIL, ZESTRIL) 10 mg tablet Take 10 mg by mouth Daily. Taking Mi Jane MD metformin (GLUCOPHAGE) 1000 MG tablet Take 1,000 mg by mouth 2 times daily (with breakfast & dinner). Taking Mi Jane MD methadone 10 mg tablet Take 60 mg by mouth 2 times daily. Taking Differently Bridger agrawal NP omeprazole (PRILOSEC) 20 mg capsule Take 20 mg by mouth every morning (before breakfast). Taking Mi Jane MD oxyCODONE (ROXICODONE) 30 MG immediate release tablet Take 30 mg by mouth 5 times daily as needed for Pain. Taking Differently Bridger Cowan NP SENNA LAX 8.6 MG tablet take 4 tablets by mouth UP TO 2 TIMES A DAY NEEDED FOR CONSTIPA TION Taking Mi Jane MD tamsulosin (FLOMAX) 0.4 mg CAPS Take 0.4 mg by mouth daily (after breakfast). Taking Dary Jane MD VENTOLIN HFA 108 (90 Base) MCG/ACT inhaler Taking Mi Jane MD Medication review performed and Electronically signed by: Miguelina Osullivan, PharmD 11/09/2018 14:40 Mey, Jose arredondo MD - 11/09/2018 1:10 PM PSTFormatting of this note might be different from the or iginal. [facility] PROGRESS NOTE Pt. Name/Age/: Cecilio Arias 48 y.o. 1970 Med. Record Number: [id number] Date of admission: 11/05/2018 Subjective: The patient [...] Electronically signed by: Jose Nash, 11/09/2018 13:10 [facility] imZaria ae, PharmD - 11/08/2018 5:59 PM PSTFormatting [...] of Adverse effect of anesthesia; Diabetes mellitus ([facility]); Diabetes mellitus type I I, ORAL Control (10/28/2011); Elevated cholesterol; Elevated hemoglobin A1c (11/07/2018); Emphy sema of lung ([facility]); GERD (gastroesophageal reflux disease); Immune deficiency disorder ([facility]) ; Osteoporosis; PONV (postoperative nausea and vomiting); Seizure ([facility]); Testosterone defici ency; and Vitamin [...] Component Value Units Date/Time Culture, Wound, Smear [[id number]] (Normal) Collected: 11/07/18 1325 Order Status: Completed Lab Status: Preliminary result Updated: 11/08/18 0744 Specimen: Tissue from Foot, Left Culture Culture in progress... Gram Stain Result No white blood cells (PMNs) seen No organisms seen Culture, Tissue, Smear, with Anaerobes [[id number]] Collected: 11/07/18 1310 Order Status: Sent Lab Status: In process Updated: 11/07/182040 Specimen: Tissue from Toe, Great, Right Narrative: The following orders were created for panel order Culture, Tissue, Smear, with Anaerobes. Procedure Abnormality Status --------- ------ Culture, Anaerobe[[id number]] In process Culture, Tissue, Smear, ...[[id number]] Please view results for these tests on the individual orders. Culture, Anaerobe [[id number]] Collected: 11/07/18 1310 Order Status: Sent Lab Status: In process Updated: 11/07/18 132 Specimen: Tissue from Toe, Great, Right Culture, Tissue, Smear, Aerobe [[id number]] Order Status: Canceled Lab Status: No result Specimen: Tissue from Toe, Great, Right Culture, MRSA [[id number]] (Normal) Collected: 11/06/18 0508 Order Status: Completed Lab Status: Final result Updated: 11/07/18 0649 Specimen: Body Fluid from Nares Culture Negative for MRSA by chromogenic agar method Culture, Blood [[id number]] (Normal) Collected: 11/05/18 2110 Order Status: Completed Lab Status: Preliminary result Updated: 11/06/18 09 Specimen: Blood from Line Culture No growth: Monitored continually by instrument for 5 days Culture, Blood [[id number]] (Normal) Collected: 11/05/182107 Order Status: Completed Lab [...] 1131 11/07/18 0549 11/06/18 0723 11/05/18 2110 11/05/182107 WBC -- 8.0 -- -- 8.0 8.7 [...] 11/07 Time of Vancomycin draw -- 1131 1713 Vancomycin result -- 11.9 16 LEVEL or [...] Hoff MD - 11/08/2018 1:59 PM PST [facility] PMG Hospitalist Progress Note Cecilio Arias is [...] therapy but declined surgery. Cultures obtained by custom clothier in July 2018 been requested but thus [...] as outlined above. Frederick Arciniega 11/08/2018 13:59 [facility] Portions of this chart may have been created with [employer] voice recognition software. Occasi onal wrong-word or sound-alike substitutions may have occurred due to the inherent stevens itations of voice recognition software. Please read the chart carefully and recognize, using context, where these substitutions have occurred Jose Mathias MD - 11/08/2018 7:33 AM PSTFormatting of this note might be different from the [facility] Pt. Name/Age/: Cecilio Arias 48 y.o. 1970 Med. Record Number: [id number] Date of admission: 11/05/2018 Subjective: The patient [...] results. No results yet Electronically signed by: Jose Nash, 11/08/2018 7:33 [facility] eers, Bisi Cortez, [facility] - 11/07/2018 12:38 PM PSTFormatting of this note might be different from the origin al. VANCOMYCIN PER PHARMACY PROTOCOL: AMS/Drug Name - vancomycin, piperacillin/tazobactam Patient: Cecilio Zimmerman Av[place]by [facility] MA[facility] OR POOL/[facility] CHELSY* Admit: 20:40 RELEVANT ALLERGIES: azithromycin (anaphylaxis), sulfa antibiotics (hives) 48 yrs old male patient admitted on 11/05/2018 for right foot wound. Patient is receiving v ancomycin starting on 11/05/18 for cellulitis/SSTI of right foot. Patient has a past medica l history of Adverse effect of anesthesia; Diabetes mellitus ([facility]); Diabetes mellitus type I I, ORAL Control (10/28/2011); Elevated cholesterol; Elevated hemoglobin A1c (11/07/2018); Emphy sema of lung ([facility]); GERD (gastroesophageal reflux disease); Immune deficiency disorder ([facility]) ; Osteoporosis; PONV (postoperative nausea and vomiting); Seizure ([facility]); Testosterone defici ency; and Vitamin [...] Procedure Component Value Units Date/Time Culture, MRSA [[id number]] (Normal) Collected: 11/06/18 0508 Order Status: Completed Lab Status: Final result Updated: 11/07/18648 Specimen: Body Fluid from Nares Culture Negative for MRSA by chromogenic agar method Culture, Wound, Smear [[id number]] Order Status: Sent Lab Status: No result Specimen: Tissue from Foot, Left Culture, Blood [[id number]] (Normal) Collected: 11/05/182109 Order Status: Completed Lab Status: Preliminary result Updated: 11/06/18920 Specimen: Blood from Line Culture No growth: Monitored continually by instrument for 5 days Culture, Blood [[id number]] (Normal) Collected: 11/05/182107 Order Status: Completed Lab [...] Lab 11/07/18 1131 11/07/18 0549 11/06/18 0723 11/05/18 2110 11/05/18 2108 WBC -- 8.0 8.7 9.3 -- CREA [...] Monitoring Protocol Electronically signed by: Jenelle Mane [facility] 11/07/2018 12:38 Frederick Hoff MD - 11/07/2018 10:44 AM PST [facility] PMG Hospitalist Progress Note Cecilio Arias is [...] therapy but declined surgery. Cultures obtained by custom clothier in July 2018 been requested but thus [...] as outlined above. Frederick Arciniega 11/07/2018 10:44 [facility] Portions of this chart may have been created with Ag[employer] voice recognition software. Occasi onal wrong-word or sound-alike substitutions may have occurred due to the inherent stevens itations of voice recognition software. Please read the chart carefully and recognize, using context, where these substitutions have occurred arFrederick argueta MD - 0 11/06/2018 5:40 PM PST [facility] PMG Hospitalist Progress Note Cecilio Arias is [...] therapy but declined surgery. Cultures obtained by custom clothier in July 2018 been requested but thus [...] as outlined above. Frederick Arciniega 11/06/2018 17:40 [facility] Portions of this chart may have been created with Agilyx voice recognition software. Occasi onal wrong-word or sound-alike substitutions may have occurred due to the inherent stevens itations of voice recognition software. Please read the chart carefully and recognize, using context, where these substitutions have occurred Serjio Mason RPH - 11/06/2018 4:17 AM PST Retimed so [...] Procedure Component Value Units Date/Time Culture, MRSA [[id number]] Order Status: Sent Lab Status: No result Specimen: Tissue from Nares Culture, Wound, Smear [[id number]] Order Status: Sent Lab Status: No result Specimen: Tissue from Foot, Left Culture, Blood [[id number]] Collected: 11/05/182109 Order Status: Sent Lab Status: In process Updated: 11/05/182117 Specimen: Blood from Line Culture, Blood [[id number]] Collected: 11/05/182107 Order Status: Sent Lab Status: [...] 14 BP: (114-121)/(58-74) 119/60 Recent Labs Lab 11/05/18210911/05/182107 WBC 9.3 -- CREA 1.18 -- LACTATE [...] given on 11/05/18 @ 2221, followed by ma intenance vancomycin 1250 mg IVPB q12h 2. Vancomycin [...] Monitoring Protocol Electronically signed by: Marco Lim, PharmD 11/06/2018 4:51 Althea Campo RN - 11/06/2018 12:15 AM PSTArrived to room from ED via stretcher at 0000, scooted self to bed fr om stretcher. Pt states he has his pain meds with him. Instructed him to turn meds over to n urse or have spouse remove it from the roomElectronically signed by Althea Davis RN at 1:55 AM PSTdocumented in this encounter H&P Notes Jose Nash MD - 11/07/2018 8:30 AM PSTSURGICAL INTERIM HISTORY & PHYSICAL UPDATE Pt. Name/Age/: Cecilio Arias 48 y.o. 1970 [...] signed by: Jose Nash MD, 11/07/2018 8:30 [facility] riddy, Loc Lamar MD - 11/06/2018 5:43 PM PST [facility] ORTHOPAEDIC CONSULT Pt. Name/Age/: Cecilio Arias 48 [...] (HCC) Lab results placed in chart regarding [id number] Phenotype. Osteoporosis PONV (postoperative nausea and vomiting) Seizure (HCC) Testosterone deficiency Vitamin D deficiency Past Surgical History: Procedure Laterality Date CARPAL TUNNEL RELEASE Left 05/14/2017 Procedure: Left Elbow Joint Exploration and Bilateral Shoulder Injection; Surgeon: Nirmal Wood MD; Location: [facility] MAIN OR ELBOW SURGERY Left 11/15/2015 Procedure: Left Lateral Epicondylar Release & Injection of Left Elbow Joint ; Surgeon: Janet Wood MD; Location: [facility] MAIN OR KNEE ARTHROSCOPY Right 12/05/2014 Procedure: Right Knee Arthroscopy with Partial Medial Menisectomy and Medial- Femoral Tay droplasty; Surgeon: Marty Wood MD; Location: [facility] MAIN OR KNEE ARTHROSCOPY Right 02/11/2018 Procedure: Right Knee Arthroscopy & bilateral Elbow Injections, Lateral Tibial Chondroplas ty, Medial Femoral Chondroplasty, Partial medial meniscectomy; Surgeon: Marty Wood MD; Location: [facility] MAIN OR MANDIBLE SURGERY spinal cord [...] Mcfarland MD 40 mg at 10/23 02/07 09 cholecalciferol (VITAMIN D-3) tablet 2,000 Units 2,000 [...] 250 mL IVPB 15 mg/kg Intravenous Q12H [facility] Stan Weston MD 175 mL/hr at 11/06/18 [...] made to ensure accuracy; however, inadvertent computerized separating machine operator errors may be pre sent. I appreciate the opportunity to help with the management of this patient. Jose Nash MD Santhosh Cool MD - 11/05/2018 10:59 PM PSTFormatting of this note might be different from the [facility] AND SERVICES HISTORY AND PHYSICAL Pt. Name/Age/: Cecilio [...] mellitus (HCC) Elevated cholesterol Emphysema of lung ([facility]) GERD (gastroesophageal reflux disease) Immune deficiency disorder ([facility]) Lab results placed in chart regarding [id number] Phenotype. Osteoporosis PONV (postoperative nausea and vomiting) Seizure ([facility]) Testosterone deficiency Vitamin D deficiency Past Surgical History: Procedure Laterality Date CARPAL TUNNEL RELEASE Left 05/14/2017 Procedure: Left Elbow Joint Exploration and Bilateral Shoulder Injection; Surgeon: Nirmal Wood MD; Location: [facility] MAIN OR ELBOW SURGERY Left 11/15/2015 Procedure: Left Lateral Epicondylar Release & Injection of Left Elbow Joint ; Surgeon: Janet Wood MD; Location: [facility] MAIN OR KNEE ARTHROSCOPY Right 12/05/2014 Procedure: Right Knee Arthroscopy with Partial Medial Menisectomy and Medial- Femoral Tay droplasty; Surgeon: Marty Wood MD; Location: [facility] MAIN OR KNEE ARTHROSCOPY Right 02/11/2018 Procedure: Right Knee Arthroscopy & bilateral Elbow Injections, Lateral Tibial Chondroplas ty, Medial Femoral Chondroplasty, Partial medial meniscectomy; Surgeon: Marty Wood MD; Location: [facility] MAIN OR MANDIBLE SURGERY spinal cord [...] by mouth Daily. B-D 3CC LUER-JENNYFER SYR 42JV0-7/2 22G X 1-1/2" 3 ML MISC use [...] signed by: Bobby Mcfarland MD 11/05/2018 22:59 [facility] documented in this enc ounter Consult Notes Jose Nash MD - 11/06/2018 5:43 PM PSTFormatting of this note might be dif ferent from the original. [facility] ORTHOPAEDIC CONSULT Pt. Name/Age/: Cecilio Arias 48 [...] (HCC) Lab results placed in chart regarding [id number] Phenotype. Osteoporosis PONV (postoperative nausea and vomiting) Seizure (HCC) Testosterone deficiency Vitamin D deficiency Past Surgical History: Procedure Laterality Date CARPAL TUNNEL RELEASE Left 05/14/2017 Procedure: Left Elbow Joint Exploration and Bilateral Shoulder Injection; Surgeon: Nirmal Wood MD; Location: [facility] MAIN OR ELBOW SURGERY Left 11/15/2015 Procedure: Left Lateral Epicondylar Release & Injection of Left Elbow Joint ; Surgeon: Janet Wood MD; Location: [facility] MAIN OR KNEE ARTHROSCOPY Right 12/05/2014 Procedure: Right Knee Arthroscopy with Partial Medial Menisectomy and Medial- Femoral Tay droplasty; Surgeon: Marty Wood MD; Location: [facility] MAIN OR KNEE ARTHROSCOPY Right 02/11/2018 Procedure: Right Knee Arthroscopy & bilateral Elbow Injections, Lateral Tibial Chondroplas ty, Medial Femoral Chondroplasty, Partial medial meniscectomy; Surgeon: Marty Wood MD; Location: [facility] MAIN OR MANDIBLE SURGERY spinal cord [...] Bobby Mcfarland MD 325 mg at 11/06/18 09 atorvaSTATin (LIPITOR) tablet 40 mg 40 mg Oral Daily Bobby Mcfarland MD 40 mg at 10/23 02/07 09 cholecalciferol (VITAMIN D-3) tablet 2,000 Units 2,000 Units Oral Daily Bobby Mcfarland MD 2,000 Units at 11/06/18 09 dextrose 50% injection 12.5 g 12.5 g [...] 250 mL IVPB 15 mg/kg Intravenous Q12H [facility] Stan Weston MD 175 mL/hr at 11/06/18 [...] made to ensure accuracy; however, inadvertent computerized separating machine operator errors may be pre sent. I appreciate the opportunity to help with the management of this patient. Jose Nash MD documented in this encounter ED Notes Mansoor Zimmerman RN - 11/05/2018 8:44 PM PSTPt has bilateral wounds to his feet for months. Pt has been off his diabetic medications for 1.5 months. Don Peña MD - 11/05/2018 8:42 PM PSTFormatting of t his note might be different from the original. [facility] Cecilio Arias Emergency Department Encounter Note [facility] [place] [address] PCP:No Physician on file [phone] CHIEF COMPLAINT: [...] (HCC) Lab results placed in chart regarding [id number] Phenotype. Osteoporosis PONV (postoperative nausea and vomiting) Seizure (HCC) Testosterone deficiency Vitamin D deficiency Past Surgical History: Procedure Laterality Date CARPAL TUNNEL RELEASE Left 05/14/2017 Procedure: Left Elbow Joint Exploration and Bilateral Shoulder Injection; Surgeon: Nirmal Wood MD; Location: [facility] MAIN OR ELBOW SURGERY Left 11/15/2015 Procedure: Left Lateral Epicondylar Release & Injection of Left Elbow Joint ; Surgeon: Janet Wood MD; Location: [facility] MAIN OR KNEE ARTHROSCOPY Right 12/05/2014 Procedure: Right Knee Arthroscopy with Partial Medial Menisectomy and Medial- Femoral Tay droplasty; Surgeon: Marty Wood MD; Location: [facility] MAIN OR KNEE ARTHROSCOPY Right 02/11/2018 Procedure: Right Knee Arthroscopy & bilateral Elbow Injections, Lateral Tibial Chondroplas ty, Medial Femoral Chondroplasty, Partial medial meniscectomy; Surgeon: Marty Wood MD; Location: [facility] MAIN OR MANDIBLE SURGERY spinal cord injury CURRENT MEDICATIONS Previous Medications AMPHETAMINE-DEXTROAMPHETAMINE (ADDERALL XR) 30 MG 24 HR CAPSULE take 1 capsule by mouth once daily ASPIRIN 325 MG TABLET Take 1 tablet by mouth Daily. ATORVASTATIN (LIPITOR) 40 MG TABLET Take 40 mg by mouth Daily. B-D 3CC LUER-JENNYFER SYR 11LQ8-6/2 22G X 1-1/2" 3 ML MISC use [...] were reviewed along with EMS notes and alf record s if applicable. (See chart for [...] siteAcute L03.90 682.9 Don Loving MD 11/05/18 2208 documented in this encou nter Miscellaneous Notes Plan of Care - Grisel Tillman RN - 11/11/2018 4:20 PM PST Behavioral contract was presented to both patient and his this AM by both Susan Martinez , and alisha Francisco RN. He would not sign but did agree with the contract. This afternoon at 1544 patient left AMA with /S/O. Electronically signed by: Grisel Tillman RN 11/11/2018 16:24 lan of Care - Tigist Ocampo RN - 11/11/2018 3:51 [...] was asked to remain respectful. lan of Care - Елена Rcie RN - 11/09/2018 9:09 PM PSTProblem: Patient [...] ate with staff, acting hostile. lan of Care - Nadine Vincent RN - 11/09/2018 3:11 PM PST11/11/2018 @ 8:20am This CM called [facility] [phone], in [place], [place]. I was able to schedule him [...] another appt with this patient. However, the medical receptionist medical assistant states that she will check w ith other providers and get back to me. If non available, may need to look at [facility], . Electronically signed by: Nadine Vincent RN 11/09/2018 15:35 Discharge planning: This CM spoke with patients , Tasha to confirm that she had located a PCP for her hus band. Tasha states that Avinash's insurance company had assigned him to Dr Kay. This CM called Dr Kay at the [facility] to confirm and the medical receptionist medical assistant state s that he is assigned Dr Kay. The problem is that he cancelled his appt with Dr Darcy griggs in July 2018, rescheduled to August 2018 and No Showed that appt. The medical receptionist medical assistant took a message for Dr Kay to review and to have Dr Kay contact Dr Nash to discuss this case. This CM explained that the patient will need IV ABX through [facility] and not through [facility], as the patient has a history [...] RLE. lan of Care - Serjio Gray I RN - 11/08/2018 5:11 AM PSTProblem: Patient [...] VSS. Will continue to monitor. lan of Care - Haris Marquez RN - 11/07/2018 7:32 [...] biopsy (distal phalanx) SURGEON: Jose Nash MD RN SOCIAL SERVICES: None ANESTHESIA: General ESTIMATED BLOOD LOSS: 10 [...] had a previous bone biopsy in July and as treated with 4 weeks of IV [...] had no falls this shift. lan of Rekha Marinelli RN - 11/06/2018 8:55 PM PSTProblem: Patient [...] medication management but still does not accept th e idea of limiting his food intake appropriately. His leg had decreased redness, swelling a nd pain per the certification and selection specialist nurse and the patient and his . His BT's were active and hi s last BM was 11/04/18, he is voiding well. The plan is to do a bone biopsy tomorrow and reev aluate everything on Friday. lan of Care - Ravi Eaton Chaplain - 11/06/2018 3:02 PM PST Spiritual Care Cecilio Arias is a 48 y.o. male who is admitted for Cellulitis of left leg [L03.116] Cellulitis, unspecified cellulitis site [L03.90]. Spiritual Evaluation: Patient was resting artistic associate visited with the Spouse. The patient comes from a [employer]ist Background. Spiritual Intervention: Listened to the spouses story, pastoral presence and prayer were provided. Spiritual Outcomes: Patient's spouse appreciated the artistic associate's visit and prayer. Spiritual Goals / Follow-up: Will see the patient as requested. If there are any other spiritual care issues that arise, please contact artistic associate. lan of Care - Mayela Andrews - [...] up a new provider appointment maybe at [facility]. Tasha let this CM know that they would like to go through [facility] if Avinash needs IV therapy . CM will follow up with them closer to discharge if this is needed. Tasha asked this CM for tums for heartburn she let this CM know that she is . Tasha let this CM know that they uses [facility] in [place] for pharmacy needs. DISP: Home Electronically signed [...] | + +--------+ + + + | MAGEN ANAEROBE | Routin | 11/07/2018 | | [...] | | n - | | | | | | 2018 | | | 8:43 | | | [...] | | | ON?02/ | | | | | | 9 | | | 20:39? | | | AVLONI | | | TIS, | | | DENIS | | | OPHER | | | S?MRN: | | | | | | [id number] | | | [id number] | | | riteri | | | [...] | | 2 225 | | | 2017-09 | | | [...] | | | 8-27 | | | OXYCOD | | | ONE | | | HCL 30 | | | MG | | | TABLET | | | 180 | | | BRIDGER | | | DENIS | | | ENSEN | | | 2 270 | | | 2018 | | | 827 | | | DEXTRO | | | [...] | | | ent/17 | | | [id number] | | | -[id number] | | | [id number] | | | [id number] | | | [id number] | | | 583d | | | [...] | | | Sarah | | | [facility], | | | [place] - | | [...] + | [facility] | [address] | [place] | [phone] | | [facility] | | [address] | | | - LABORATORY | | [...] | mL/min/1.73m2 | [facility] | | | [place] | RATE,ESTIMATED | | MEDICAL | | | | mL/min/1.15x8Vavk than | | CENTER - | | [...] [address] | [place] | [phone] | | [facility] | | [address] | | | - LABORATORY | | [...] [address] | [place] | [phone] | | [facility] | | [address] | | | - LABORATORY | | [...] + | [facility] | [address] | [place] | [phone] | | [facility] | | [address] | | | - LABORATORY | | [...] [address] | [place] | [phone] | | [facility] | | [address] | | | - LABORATORY | | [...] ST. | [address] | [place] | [phone] | | [facility] | | [address] | | | - LABORATORY | | [...] | | POC | | | [facility] | | | | | | MEDICAL [...] [address] | [place] | [phone] | | [facility] | | [address] | | | - LABORATORY | | [...] | | | POC | | | [facility] | | | | | [...] + | [facility] | [address] | [place] | [phone] | | [facility] | | [address] | | | - LABORATORY | | [...] | | Cells | | | [facility] | | [...] ST. | [address] | [place] | [phone] | | [facility] | | [address] | | | - LABORATORY | | [...] [facility] | | | | | | . [facility] | | [...] (H) | 7 - 18 mg/dL | [facility] | | | | | | [facility] | | | | | | MEDICAL | | | | | | CENTER - | | | | | | LABORATORY | | + + + + + + | Creatinine | 1.16 | 0.60 - 1.30 | [facility] | | | | | mg/dL | [facility] | | | | | | MEDICAL | | | | | | CENTER - | | | | | | LABORATORY | | + + + + + + | eGFR, | >60Comment: GLOMERULAR | >=60 | [facility] | | | non- | FILTRATION | mL/min/1.73m2 | [facility] | | | [place] | RATE,ESTIMATED | | MEDICAL | | | | mL/min/1.33n7Mors than | | CENTER - | | [...] + + | [facility] | [address] | [place] | [phone] | | [facility] | | [address] | | | - LABORATORY | | [...] + | [facility] | [address] | [place] | [phone] | | [facility] | | [address] | | | - LABORATORY | | [...] [address] | [place] | [phone] | | [facility] | | [address] | | | - LABORATORY | | [...] [address] | [place] | [phone] | | [facility] | | [address] | | | - LABORATORY | | [...] [address] | [place] | [phone] | | [facility] | | [address] | | | - LABORATORY | | [...] conveyed to the ordering provider, by the hide house supervisor, | | | immediately following the exam. [...] to the ordering provider, by the | |hide house supervisor, immediately following the exam. | | | [...] [address] | [place] | [phone] | | [facility] | | [address] | | | - LABORATORY | | [...] | Cells | | M/uL | [facility] | | | | | | MEDICAL | | | | | | CENTER - | | | | | | LABORATORY | | + + + + + + | Hemoglobin | 10.4 (L) | 13.5 - 18.0 | [facility] | | | | | g/dL | [facility] | | | | | | MEDICAL | | | | | | CENTER - | | | | | | LABORATORY | | + + + + + + | Hematocrit | 31.8 (L) | 40.0 - 51.0 % | [facility] | | | | | | [facility] | | | [...] [facility] | | | | | | [facility] | | | | | | MEDICAL | | | | | | CENTER - | | | | | | LABORATORY | | + + + + + + | MCHC | 32.7 | 32.0 - 36.0 | [facility] | | | | | g/dL | [facility] | | | | | [...] | | | | WBC's | [facility] | | | | | | MEDICAL | | | | | | CENTER - | | | | | | LABORATORY | | + + + + + + | Absolute | 0.00 | 0.00 - 0.01 | [facility] | | | nRBC | | K/uL | [facility] | | | | | | [...] + | [facility] | [address] | [place] | [phone] | | [facility] | | [address] | | | - LABORATORY | | [...] [facility] | | | | | | [facility] | | | | | | MEDICAL | | | | | | CENTER - | | | | | | LABORATORY | | + + + + + + | BUN | 23 (H) | 7 - 18 mg/dL | [facility] | | | | | | [facility] | | | | | | MEDICAL | | | | | | CENTER - | | | | | | LABORATORY | | + + + + + + | Creatinine | 0.98 | 0.60 - 1.30 | [facility] | [...] mL/min/1.73m2 | [facility] | | | [place] | RATE,ESTIMATED | | MEDICAL | | | | mL/min/1.35i6Ztbg than | | CENTER - | | [...] | | | | | mg/dL | [facility] | | | | | | MEDICAL | | | | | | CENTER - | | | | | | LABORATORY | | + + + + + + | BUN/Creatin | 23.5 | | [facility] | | | ine Ratio | | | [facility] | | | [...] [address] | [place] | [phone] | | [facility] | | [address] | | | - LABORATORY | | [...] [address] | [place] | [phone] | | [facility] | | [address] | | | - LABORATORY | | [...] ST. | [address] | [place], [place] | [phone] | | [facility] | | [address] | | | - LABORATORY | | [...] [address] | [place] | [phone] | | [facility] | | [address] | | | - LABORATORY | | [...] + | [facility] | [address] | [place] | [phone] | | [facility] | | [address] | | | - LABORATORY | | [...] [address] | [place] | [phone] | | [facility] | | [address] | | | - LABORATORY | | [...] | | nRBC | | K/uL | [facility] | | | | | [...] [address] | [place] | [phone] | | [facility] | | [address] | | | - LABORATORY | | [...] | 1.05 | 0.60 - 1.30 | [facility] | | | | | mg/dL | [facility] | | | | | | MEDICAL | | | | | | CENTER - | | | | | | LABORATORY | | + + + + + + | eGFR, | >60Comment: GLOMERULAR | >=60 | [facility] | | | non- | FILTRATION | mL/min/1.73m2 | [facility] | | | [place] | RATE,ESTIMATED | | MEDICAL | | | | mL/min/1.66d2Cvbi than | | CENTER - | | [...] [address] | [place] | [phone] | | [facility] | | [address] | | | - LABORATORY | | [...] + | [facility] | [address] | [place] | [phone] | | [facility] | | [address] | | | - LABORATORY | | [...] [address] | [place] | [phone] | | [facility] | | [address] | | | - LABORATORY | | [...] | | | amycolatumComment: | | [facility] | | | | Isolated from broth [...] Result | (PMNs) seen | | [facility] | | | | | | MEDICAL | | | | | | CENTER - | | | | | | LABORATORY | | + + + + + + | Gram Stain | No organisms seen | | [facility] | | | Result | | | [facility] | | [...] amycolatum isolated | [facility] | | | [facility] | | | [facility] | | | - LABORATORY | + [...] + | [facility] | [address] | [place] | [phone] | | [facility] | | [address] | | | - LABORATORY | | [...] the | | | | | | Ariel Guide to | | | | | [...] [address] | [place] | [phone] | | [facility] | | [address] | | | - LABORATORY | | [...] [address] | [place] | [phone] | | [facility] | | [address] | | | - LABORATORY | | [...] | Last Dose | | | [facility] | | | | | | MEDICAL | | | | | | CENTER - | | | | | | LABORATORY | | + +-------+ + + + | Vancomycin | 11.9 | <20.0 ug/mL | [facility] | | | Trough | | | [facility] | | [...] [address] | [place] | [phone] | | [facility] | | [address] | | | - LABORATORY | | [...] + | [facility] | [address] | [place] | [phone] | | [facility] | | [address] | | | - LABORATORY | | [...] | 1.09 | 0.60 - 1.30 | [facility] | | | | | mg/dL | [facility] | | | | | | MEDICAL | | | | | | CENTER - | | | | | | LABORATORY | | + + + + + + | eGFR, | >60Comment: GLOMERULAR | >=60 | [facility] | | | non- | FILTRATION | mL/min/1.73m2 | [facility] | | | [place] | RATE,ESTIMATED | | MEDICAL | | | | mL/min/1.17k3Hmzl than | | CENTER - | | [...] | 8.8 | 8.3 - 10.5 | [facility] | | | | | mg/dL | [facility] | | | | | | MEDICAL | | | | | | CENTER - | | | | | | LABORATORY | | + + + + + + | Albumin | 3.6 | 3.2 - 5.0 g/dL | [facility] | | | | | | [facility] | | | [...] | | ine Ratio | | | [facility] | | [...] [address] | [place] | [phone] | | [facility] | | [address] | | | - LABORATORY | | | | + + + + + Sedimentation Rate (11/07/2018 5:49 AM PST) + +--------+ + + + | Component | Value | Ref Range | Performed | Pathologist | | | | | At | Signature | + +--------+ + + + | Erythrocyte | 17 (H) | <15 mm/hr | [facility] | | | | | | [facility] | | | Sedimentati | | | [...] [address] | [place] | [phone] | | [facility] | | [address] | | | - LABORATORY | | | | + + + + + C-Reactive Protein (11/07/2018 5:49 AM PST) + +-------+ + + + | Component | Value | Ref Range | Performed | Pathologist | | | | | At | Signature | + +-------+ + + + | CRP | 4.77 | <8.00 mg/L | [facility] | | | | | | [facility] | | | [...] + | [facility] | [address] | [place] | [phone] | | [facility] | | [address] | | | - LABORATORY | | [...] 8.0 | 4.0 - 11.0 K/uL | [facility] | | | Cells | | | [...] | | nRBC | | K/uL | [facility] | | | | | [...] [address] | [place] | [phone] | | [facility] | | [address] | | | - LABORATORY | | [...] + | [facility] | [address] | [place] | [phone] | | [facility] | | [address] | | | - LABORATORY | | | | + + + + + Albumin (11/06/2018 5:19 PM PST) + +-------+ + + + | Component | Value | Ref Range | Performed | Pathologist | | | | | At | Signature | + +-------+ + + + | Albumin | 3.4 | 3.2 - 5.0 g/dL | [facility] | | | | | | [facility] [...] + | [facility] | [address] | [place] | [phone] | | [facility] | | [address] | | | - LABORATORY | | [...] [address] | [place] | [phone] | | [facility] | | [address] | | | - LABORATORY | | [...] ST. | [address] | [place] | [phone] | | [facility] | | [address] | | | - LABORATORY | | [...] | | Cells | | | [facility] | | | | | | MEDICAL [...] | 0.00 | 0.00 - 0.01 | [facility] | | | nRBC | | K/uL [...] [address] | [place] | [phone] | | [facility] | | [address] | | | - LABORATORY | | [...] 18 | 7 - 18 mg/dL | [facility] | | | | | | [facility] | | | | | | [facility]ICAL | | | | | | CENTER - | | | | | | LABORATORY | | + + + + + + | Creatinine | 1.20 | 0.60 - 1.30 | [facility] | | | | | mg/dL | [facility] | [facility] | | [facility] | MEDICAL | | | | | | CENTER - | | | | | | LABORATORY | | + + + + + + | eGFR, | >60Comment: GLOMERULAR | >=60 | [facility] | | | non- | FILTRATION | mL/min/1.73m2 | [facility] | | | [place] | RATE,ESTIMATED | | MEDICAL | | | | mL/min/1.47i0Vxyh than | | CENTER - | | [...] | ine Ratio | | | [facility] | | | | | | MEDICAL [...] | [address] | [place] | [phone] | | [facility] | | [address] | | | - LABORATORY | | | | + + + + + Culture, MRSA (11/06/2018 5:08 AM PST) + + + + + + | Component | Value | Ref Range | Performed | Pathologist | | | | | At | Signature | + + + + + + | Culture | Negative for MRSA by | | [facility] | | | | chromogenic agar method | | [facility] | | | | | | MEDICAL [...] [address] | [place] | [phone] | | [facility] | | [address] | | | - LABORATORY | | [...] + | [facility] | [address] | [place] | [phone] | | [facility] | | [address] | | | - LABORATORY | | [...] | | | in | | | [facility] | | [...] [address] | [place] | [phone] | | [facility] | | [address] | | | - LABORATORY | | [...] | | | | incubation. | | . [facility] | | | [...] + | [facility] | [address] | [place] | [phone] | | [facility] | | [address] | | | - LABORATORY | | [...] mL/min/1.73m2 | [facility] | | | [place] | RATE,ESTIMATED | | MEDICAL | | | | mL/min/1.72e3Hdba than | | CENTER - | | [...] | 8.9 | 8.3 - 10.5 | [facility] | | | | | mg/dL | [facility] | | | | | | MEDICAL | | | | | | CENTER - | | | | | | LABORATORY | | + + + + + + | Albumin | 3.7 | 3.2 - 5.0 g/dL | [facility] [...] | appended report. These | | [facility] | | | | results have been [...] + | [facility] | [address] | [place] | [phone] | | [facility] | | [address] | | | - LABORATORY | | [...] | | Cells | | | [facility] | | [...] | | Granulocyte | | | [facility] | | | s | | | [...] | 0.00 | 0.00 - 0.01 | [facility] | | | nRBC | | K/uL | [facility] | | | | | | MEDICAL [...] [address] | [place] | [phone] | | [facility] | | [address] | | | - LABORATORY | | [...] [address] | [place] | [phone] | | [facility] | | [address] | | | - LABORATORY | | | | + + + + + Culture, Blood (11/05/2018 9:08 PM PST) + + + + + + | Component | Value | Ref Range | Performed | Pathologist | | | | | At | Signature | + + + + + + | Culture | No growth after 5 days | | [facility] | | | | incubation. | | [facility] | | | [...] ST. | [address] | [place], [place] | [phone] | | [facility] | | [address] | | | - LABORATORY | | | | + + + + + IMAGING REPORT - EXTERNAL SCAN (04/10/2012 12:00 AM PDT) + + + | Narrative | Performed At | + + + | Ordered by an | | | unspecified provider. | | + + + documented in this encounter Visit Diagnoses + + | Diagnosis | + + | Cellulitis, unspecified cellulitis site - Primary | + + | Cellulitis of left leg Cellulitis and abscess of leg, except foot | + + | Acute osteomyelitis of toe of right foot (HCC) Acute osteomyelitis, ankle and foot | + + | Uncontrolled type 2 diabetes mellitus with hyperglycemia (HCC) | + + | Post-traumatic syrinx (HCC) Syringomyelia and syringobulbia | + + | Chronic pain due to trauma | + + | Osteomyelitis of ankle or foot, acute, right (HCC) | + + | Elevated hemoglobin A1c Other abnormal blood chemistry | + + | Chronic renal insufficiency, stage 2 (mild) | + + documented in this encounter [...] | | +---+---+ + +-------+ +--------+---+---+ | acetaminophen (TYLENOL) tablet | Given | 11/10/19 | 650 mg | | | | 650 mg 650 mg, Oral, EVERY 4 | | 19 12:34 | | | | | HOURS PRN, Pain, or fever >= 38.6 | | PM PST | | | | | C (101.5 F), Starting Fri | | | | | | | 11/06/18 at 0003 | | | | | | + +-------+ +--------+---+---+ +---+---+ | | | +---+---+ + +-------+ +--------+---+---+ | ascorbic acid (VITAMIN C) | Given | 11/11/19 | 500 mg | | | | tablet 500 mg 500 mg, Oral, | | 8:51 | | | | | TIMES [...] | | +---+---+ + +-------+ +--------+---+---+ | aspirin EC tablet 325 mg 325 | Given | 11/10/19 | 325 mg | | | | mg, Oral, DAILY, First dose on | | 19 8:45 | | | | | 11/06/18 at 0900 | | AM PST | | | | + +-------+ +--------+---+---+ +-------+ +--------+---+---+ | Given | 11/09/19 | 325 mg | | | | | 19 8:16 | | | | | | AM PST | | | | +-------+ +--------+---+---+ | Given | 11/08/19 | 325 mg | | | | | 19 8:21 | | | | | | AM PST | | | | +-------+ +--------+---+---+ +---+---+ | | | +---+---+ + +-------+ +-------+---+---+ | atorvaSTATin (LIPITOR) tablet | Given | 11/10/19 | 40 mg | | | | 40 mg 40 mg, Oral, DAILY, First | | 19 8:44 | | | | | dose on Fri11/06/18 at 0900 | | AM PST | | | | + +-------+ +-------+---+---+ +-------+ +-------+---+---+ | Given | 11/09/19 | 40 mg | | | | | 19 8:17 | | | | | | AM PST | | | | +-------+ +-------+---+---+ | Given | 11/08/19 | 40 mg | | | | | 19 8:21 | | | | | | AM PST | | | | +-------+ +-------+---+---+ +---+---+ | | | +---+---+ + +-------+ +--------+---+---+ | cholecalciferol (VITAMIN D-3) | Given | 11/10/19 | 2,000 | | | | tablet 2,000 Units 2,000 Units, | | 19 8:47 | Units | | | | Oral, DAILY, First dose on Fri | | AM PST | | | | | 11/06/18 at 0900 | | | | | | + +-------+ +--------+---+---+ +-------+ +--------+---+---+ | Given | 11/09/19 | 2,000 | | | | | 19 8:17 | Units | | | | | AM PST | | | | +-------+ +--------+---+---+ | Given | 11/08/19 | 2,000 | | | | | 19 8:21 | Units | | | | | AM PST | | | | +-------+ +--------+---+---+ +---+---+ | | | +---+---+ + +-------+ +-------+---+---+ | cyclobenzaprine (FLEXERIL) | Given | 11/10/19 | 10 mg | | | | tablet 10 mg 10 mg, Oral, ONCE, | | 19 4:30 | | | | | 11/10/18 at 1545, For 1 dose | | PM PST | | | | + +-------+ +-------+---+---+ [...] | | | | +-------+ +-------+---+ + +---+---+ | | | +---+---+ + +-------+ +-------+---+---+ | furosemide (LASIX) injection 10 | Given | 11/11/19 | 10 mg | | | | mg 10 mg, Intravenous, ONCE, | | 19 10:01 | | | | | 11/11/18 at 1000, For 1 dose | | AM PST | | | | + +-------+ +-------+---+---+ +---+---+ | | | +---+---+ + +-------+ +--------+---+---+ | gabapentin (NEURONTIN) capsule | Given | 11/10/19 | 600 mg | | | | 600 mg 600 mg, Oral, 3 TIMES | | 19 1:11 | | | | | DAILY, First dose on Fri11/06/18 | | PM PST | | | | | at 0900 | | | | | | + +-------+ +--------+---+---+ +-------+ +--------+---+---+ | Given | 11/10/19 | 600 mg | | | | | 19 8:44 | | | | | | AM PST | | | | +-------+ +--------+---+---+ | Given | 11/09/19 | 600 mg | | | | | 19 9:57 | | | | | | PM PST | | | | +-------+ +--------+---+---+ +---+---+ | | | +---+---+ + +-------+ +--------+---+ + | heparin 5,000 units/mL | Given | 11/09/19 | 5,000 | | Abdomen- | | injection 5,000 Units 5,000 | | 19 9:48 | Units | | RUQ | | Units, Subcutaneous, EVERY 12 | | PM PST | | | | | HOURS (2 times per day), First | | | | | | | dose on Fri11/06/18 at 0900 | | | | | | + +-------+ +--------+---+ + +-------+ +--------+---+ + | Given | 11/09/19 | 5,000 | | Abdomen- | | | 19 8:16 | Units | | RUQ | | | AM PST | | | | +-------+ +--------+---+ + | Given | 11/08/19 | 5,000 | | Abdomen- | | | 19 8:21 | Units | | LLQ | | | AM PST | | | | +-------+ +--------+---+ + +---+---+ | | | +---+---+ + +-------+ +---------+---+ + | influenza quadrivalent | Given | 11/06/19 | 0.5 mLs | | Deltoid- | | (FLUZONE, FLUARIX, AFLURIA | | 19 9:57 | | | Left | | QUADRIVALENT) vaccine injection | | AM PST | | | | | (syringe) 0.5 mL 0.5 mL, | | | | | | | Intramuscular, ONE TIME VACCINE, | | | | | | | 11/06/18 at 0900, For 1 dose, | | | | | | | Give patient education | | | | | | | informationMeenu Doe prior to use., | | | | | | | | | | | | | + +-------+ +---------+---+ + +---+---+ | | | +---+---+ + +-------+ + +---+ + | insulin glargine (LANTUS | Given | 11/08/19 | 10 Units | | Arm-Left | | SOLOSTAR) injection (pen) 10 | | 19 8:23 | | | Upper | | Units 10 Units, Subcutaneous, | | AM PST | | | | | EVERY 12 HOURS (2 times per day), | | | | | | | First dose on 11/07/18 at | | | | | | | 1115, For subcutaneous use only. | | | | | | | Basal (long acting) insulin., | | | | | | + +-------+ + +---+ + +-------+ + +---+ + | Given | 11/07/19 | 10 Units | | Arm-Righ | | | 19 9:13 | | | t Upper | | | PM PST | | | | +-------+ + +---+ + | Given | 11/07/19 | 10 Units | | Arm-Left | | | 19 11:54 | | | Upper | | | AM PST | | | | +-------+ + +---+ + +---+---+ | | | +---+---+ + +-------+ + +---+ + | insulin glargine (LANTUS | Given | 11/09/19 | 15 Units | | Abdomen- | | SOLOSTAR) injection (pen) | | 19 8:17 | | | LLQ | | Units 15 Units, Subcutaneous, | | AM PST | | | | | EVERY 12 HOURS (2 times per day), | | | | | | | First dose (after last | | | | | | | modification) on 11/08/18 at | | | | | | | 2100, For subcutaneous use only. | | | | | | | Basal (long acting) insulin., | | | | | | + +-------+ + +---+ + +---+---+ | | | +---+---+ + +-------+ + +---+ + | insulin glargine (LANTUS | Given | 11/09/19 | 15 Units | | Abdomen- | | SOLOSTAR) injection (pen) | | 19 1:26 | | | LLQ | | Units 15 Units, Subcutaneous, | | PM PST | | | | | ONCE, 11/09/18 at 1330, For 1 | | | | | | | dose, For subcutaneous use only. | | | | | | | Basal (long acting) insulin., | | | | | | + +-------+ + +---+ + + +---+ | | | + [...] | insulin glargine (LANTUS | Given | 11/10/19 | 25 Units | | Arm-Left | | SOLOSTAR) injection (pen) | | 19 9:04 | | | Upper | | Units 25 Units, Subcutaneous, | | AM PST | | | | | EVERY 12 HOURS (2 times per day), | | | | | | | First dose (after last | | | | | | | modification) on 11/09/18 at | | | | | | | 2100, For subcutaneous use only. | | | | | | | Basal (long acting) insulin., | | | | | | + +-------+ + +---+ + +-------+ + +---+ + | Given | 11/09/19 | 25 Units | | Abdomen- | | | 19 10:07 | | | RLQ | | | PM PST | | | | +-------+ + +---+ + +---+---+ | | | +---+---+ + +-------+ + +---+ + | insulin glargine (LANTUS | Given | 11/10/19 | 28 Units | | Arm-Righ | | SOLOSTAR) injection (pen) 28 | | 19 10:20 | | | t Upper | | Units 28 Units, Subcutaneous, | | PM PST | | | | | EVERY 12 HOURS (2 times per day), | | | | | | | First dose (after last | | | | | | | modification) on Fri11/10/18 at | | | | | | | 2100, For subcutaneous use only. | | | | | | | Basal (long acting) insulin., | | | | | | [...] | | | | | | | 3579-9598 Use NIGHT DOSE for | | | | | | | doses scheduled: HS, 3AM, | | | | | | | Nighttime [id number], | | | | | | + [...] | insulin lispro (humaLOG | Given | 11/10/19 | 10 Units | | Arm-Left | | KWIKPEN) injection (pen) 10 Units | | 19 6:13 | | | Upper | | 10 Units, Subcutaneous, 3 TIMES | | PM PST | | | | | DAILY WITH MEALS, First dose | | | | | | | (after last modification) on Mon | | | | | | | 11/09/18 at 1700 | | | | | | + +-------+ + +---+ + +-------+ + +---+ + | Given | 11/10/19 | 10 Units | | Arm-Righ | | | 19 12:25 | | | t Upper | | | PM PST | | | | +-------+ + +---+ + | Given | 11/10/19 | 10 Units | | Arm-Righ | | | 19 9:05 | | | t Upper | | [...] | insulin lispro (humaLOG | Given | 11/09/19 | 5 Units | | Abdomen- | | KWIKPEN) injection (pen) 5 Units | | 19 12:22 | | | LLQ | | 5 Units, Subcutaneous, 3 TIMES | | PM PST | | | | | DAILY WITH MEALS, First dose on | | | | | | | 11/06/18 at 1815 | | | | | | + +-------+ +---------+---+ + +-------+ +---------+---+ + | Given | 11/09/19 | 5 Units | | Abdomen- | | | 19 8:19 | | | LLQ | | | AM PST | | | | +-------+ +---------+---+ + | Given | 11/08/19 | 5 Units | | Arm-Righ | | | 19 5:33 | | | t Upper | | | PM PST | | | | +-------+ +---------+---+ + +---+---+ | | | +---+---+ + +---------+ +---+ +---+ | lactated ringers (LR) infusion | New Bag | 11/09/19 | | 60 mL/hr | | | at 60 mL/hr, Intravenous, | | 19 2:27 | | | | | CONTINUOUS, Starting 11/06/18 | | AM PST | | | | | at 0130 | | | | | | + +---------+ +---+ +---+ +---------+ +---+ +---+ | New Bag | 11/08/19 | | 60 mL/hr | | | | 19 9:31 | | | | | | AM PST | | | | +---------+ +---+ +---+ | New Bag | 11/07/19 | | 60 mL/hr | | | | 19 11:25 | | | | | | AM PST | | | | +---------+ +---+ +---+ +---+---+ | | | +---+---+ + +---------+ [...] 40 mg 40 mg, | Given | 11/09/19 | 40 mg | | | | Oral, EVERY 6 HOURS (4 times per | | 19 5:57 | | | | | day), First dose (after last | | AM PST | | | | | modification) on 11/08/18 at | | | | | | | 1200 | | | | | | + +-------+ +-------+---+---+ +-------+ +-------+---+---+ | Given | 11/09/19 | 40 mg | | | | | 19 12:10 | | | | | | AM PST | | | | +-------+ +-------+---+---+ | Given | 11/08/19 | 40 mg | | | | | 19 5:33 | | | | | | PM [...] +---+---+ + +-------+ +-------+---+---+ | methadone tablet 80 mg 80 mg, | Given | 11/07/19 | 80 mg | | | | Oral, EVERY 12 HOURS (2 times per | | 19 8:59 | | | | | day), First dose on Fri11/06/18 | | PM PST | | | | | at 0100 | | | | | | + +-------+ +-------+---+---+ +-------+ +-------+---+---+ | Given | 11/06/19 | 80 mg | | | | | 19 9:52 | | | | | | PM PST | | | | +-------+ +-------+---+---+ | Given | 11/06/19 | 80 mg | | | | | 19 9:52 | | | | | | AM PST | | | | +-------+ +-------+---+---+ +---+---+ | | | +---+---+ + +-------+ +------+---+---+ | nicotine polacrilex (COMMIT) | Given | 11/10/19 | 2 mg | | | | lozenge 2 mg 2 mg, Oral, ONCE, | | 19 5:29 | | | | | 11/10/18 at 1545, For 1 dose | | PM PST | | | [...] +---+---+ | | | +---+---+ + +---------+ +---------+-------+---+ | piperacillin-tazobactam (ZOSYN) | New Bag | 11/05/19 | 3.375 g | 200 | | | 3.375 g in sodium chloride 0.9% | | 19 10:08 | | mL/hr | | | 100 mL IVPB 3.375 g, | | PM PST | | | | | Intravenous, Administer over 0.5 | | | | | | | Hours, ONCE, [facility] 11/05/18 at 2105, | | | | | | | For 1 dose, Activate system and | | | | | | | mix before use., Indications: | | | | | | | Cellulitis | | | | | | + +---------+ +---------+-------+---+ +---+---+ | | | +---+---+ + +---------+ [...] | | | | +---------+ +---------+ +---+ +---+---+ | | | +---+---+ + +-------+ +--------+---+---+ | pregabalin (LYRICA) capsule 100 | Given | 11/11/19 | 100 mg | | | | mg 100 mg, Oral, 3 TIMES DAILY, | | 19 8:50 | | | | | First dose (after last | | AM PST | | | | | modification) on Fri11/11/18 at | | | | | | | 0900 | | | | | | + +-------+ +--------+---+---+ + +---+ | | | + +---+ | pregabalin (LYRICA) capsule 100 | | | mg 100 mg, Oral, 2 TIMES DAILY | | | 0800 & 1800, First dose (after | | | last modification) on Fri11/11/18 | | | at 1800 | | + +---+ | | | + +---+ + +-------+ +-------+---+---+ | pregabalin (LYRICA) capsule 75 | Given | 11/10/19 | 75 mg | | | | mg 75 mg, Oral, 3 TIMES DAILY, | | 19 10:08 | | | | | First dose on Fri11/10/18 at 2100 | | PM PST | | | | + +-------+ +-------+---+---+ +---+---+ | | | +---+---+ + +---------+ +--------+-------+---+ | sodium chloride 0.9% (NS) bolus | New Bag | 11/05/19 | 1,000 | 2000 | | | 1,000 mL 1,000 mL, Intravenous, | | 19 9:11 | mLs | mL/hr | | | Administer over 30 Minutes, | | PM PST | | | | | ONCE, [facility] 11/05/18 at 2100, For 1 | | | | | | | dose | | | | | | + +---------+ +--------+-------+---+ +---+---+ | | | +---+---+ + +-------+ +--------+---+---+ | tamsulosin (FLOMAX) capsule [...] | | | | + + +-----+--------+---+ +---+---+ | | | +---+---+ + +---------+ + +-------+---+ | vancomycin 1,250 mg in sodium | New Bag | 11/06/19 | 1,250 mg | 175 | | | chloride 0.9% 250 mL IVPB 1,250 | | 19 11:55 | | mL/hr | | | mg (rounded from 1,306.5 mg = 15 | | PM PST | | | | | mg/kg | | | | | | | 87.1 kg), Intravenous, | | | | | | | Administer over 90 Minutes, EVERY | | | | | | | 12 HOURS INTERVAL, First dose on | | | | | | | 11/06/18 at 1030, Keep in | | | | | | | refrigerator., Indications: | | | | | | | Cellulitis | | | | | | + +---------+ + +-------+---+ +---------+ + +-------+---+ | New Bag | 11/06/19 | 1,250 mg | 175 | | | | 19 12:27 | | mL/hr | | | | PM PST | | | | +---------+ + +-------+---+ +---+---+ | | | +---+---+ + +---------+ + +--------+---+ | vancomycin 1,500 mg in sodium | New Bag | 11/05/19 | 1,500 mg | 166.7 | | | chloride 0.9% 250 mL IVPB 1,500 | | 19 10:21 | | mL/hr | | | mg, Intravenous, Administer over | | PM PST | | | | | 90 Minutes, ONCE, [facility] 11/05/18 at | | | | | | | 2155, For 1 dose, Keep in | | | | | | | refrigerator., Indications: | | | | | | | Cellulitis | | | | | | + +---------+ + +--------+---+ +---+---+ | | | +---+---+ + +---------+ + +--------+---+ | vancomycin 1,500 mg in sodium | New Bag | 11/07/19 | 1,500 mg | 176.7 | | | chloride 0.9% 250 mL IVPB 1,500 | | 19 5:39 | | mL/hr | | | mg (rounded from 1,393.5 mg = 15 | | PM PST | | | | | mg/kg | | | | | | | 92.9 kg), Intravenous, | | | | | | | Administer over 90 Minutes, ONCE, | | | | | | | 11/07/18 at 1300, For 1 dose, | | | | | | | Keep in refrigerator., | | | | | | | Indications: Osteomyelitis | | | | | | + +---------+ + +--------+---+ + +---+ | | | + +---+ [...] 8:51 | | | | | on e 11/10/18 at 1600 | | AM PST | | | | + +-------+ +--------+---+---+ +-------+ +--------+---+---+ | Given | 11/10/19 | 220 mg | | | | | 19 5:28 | | | | | | PM PST | | | | +-------+ +--------+---+---+ +---+---+ | | | +---+---+ documented in this encounter
--- OUTSIDE RECORDS SUMMARY | ~2020-06-16 | XMS | Encounter Summary ---
Demographics + + + | Address | [address] | | | [place] [address] | + + + | Home Phone | | + + + | Preferred Language | Unknown | + + + | Marital Status | | + + + | Christianity Affiliation | Unknown | + + + | Race | White | + + + | Ethnic Group | Not or | + + + Author + + + | Author | [facility] | | | and [place] | + + + | Organization | [facility] | | | [...] [place], | | | | | [place] [address] | | + + + + + Care Team Providers + +------+ + | Care Senior Java Web Developer Name | Role | Phone | + +------+ + PCP | Unavailable | + +------+ + Reason for Visit + +--------+ + | Reason | Onset | Comments | | | Date | | + +--------+ + | Appointment | 08/02/ | | | | 2014 | | + +--------+ + Encounter Details +--------+ + + + + | Date | Type | Department | Care Team | Description | +--------+ + + + + | 08/02/ | Telephone | [facility] | Marty Wood | Appointment | | 2013 | | ORTHOPEDIC SURGERY | MD [address] [facility] | | | | | [address] | [place] | | | | | [place] | [address] | | | | | [address] | | | | | | [phone] | | | +--------+ + + + [...] this encounter Miscellaneous Notes Telephone Encounter - Brandy Rodriguez - 08/03/2014 3:32 PM PSTNotified patient okay with this kept appt in August elephone Encounter - Claudia Gray Master of Arts - 08/02/2014 5:[address] Eleuterio meadows, He has reviewed the MRI that is in [facility] from 07/22/14, done [facility]. Patient will be seen as scheduled on 08/22/14, if patient needs something to help ease his p ain, he should contact his PCP. If patient can't wait to be seen then, [facility] that [facility] seen him sooner. elephone Encounter - Janay Zhu LPN - 08/02/2014 4:35 PM PSTPt can be seen as sched in [facility]. There are no openings before that date. elephone Encounter - Janay Zhu LPN - 08/02/2014 4:33 PM PST MRI dated 10/31/14 on [facility]. 4:3 3 PM PSTTelephone Encounter - Ree Do - 08/02/2014 2:[address] [facility] lona Celeste [facility] patient.Electronically signed by Ree Do at 014 2:07 PM PSTTelephone Encounter - Ree Do - 08/02/2014 1:20 PM PSTPatient is scheduled for 08/22/2014. Patient is having more problems now with knee and is in a lot of p ain. Patient had a new MRI done at [facility]. Requested MRI be pushed to [facility]. Please adv ise if patient can be moved up for appointment. documented in this encounter Plan of Treatment Not on filedocumented as of this encounter Visit Diagnoses Not on filedocumented in this encounter"
--- OUTSIDE RECORDS SUMMARY | ~2020-06-16 | XMS | Encounter Summary ---
Demographics + + + | Address | [address] | | | [place] [address] | + + + | Home Phone | | + + + | Preferred Language | Unknown | + + + | Marital Status | | + + + | Worship Affiliation | Unknown | + + + | Race | White | + + + | Ethnic Group | Not or | + + + Author + + + | Author | [facility] | | | and [place] | + + + | Organization | [facility] | | [...] [place], | | | | | [place] [address] | | + + + + + Care Team Providers + +------+ + | Care City Editor Name | Role | Phone | + [...] Closed | | Infusion | Diagnoses | Cortes, | [facility] | | | | Therapy | Other tear | [facility], | Infusion [address] | | | | | of medial | MD [address] | | | | | meniscus, | [address] | [place], | | | | | current | [place], | [place] [address] | | | | | injury, | [place] | Phone: | | | | | right knee, | [address] | [phone] | | | | | initial | Phone: | Fax: | | | | | encounter | [phone] | [phone] | | | | | Pain in | Fax: | | | | | | right knee | [phone] | | | | | | Other | | | | | | | chronic pain | | | | | | | Dr. Cortes, | | | | | | | | | | | | | | Osteomyeliti | | | | | | | s, | | | | | | | Rocephin,IV, | | | | | | | or IM 2G | | | | | | | daily X42 | | | | | | | days | | | | | | | Procedures | | | | | | | MS | | | | | | | CEFTRIAXONE | | | | | | | SODIUM | | | | | | | INJECTION, | | | | | | | 250 MG MS | | | | | | | [...] | +--------+ + + + + | 11/29/ | Hospital | [facility] | Amadeo Saab | Chronic | | 2019 | Encounter | [facility] | [address] | osteomyelitis of toe | | | | [address] | [address] [place] | of right foot (HCC) | | | | [place] | [place] [address] | | | | | [address] | [phone] | | | | | [phone] | | | +--------+ + + + [...] + + + | Blood Pressure | 112/78 | 11/29/2018 9:45 AM | | | | | PDT | | + + + + + | Pulse | 120 | 11/29/2018 9:45 AM | | | | | PDT | | + + + + + | Temperature | 36.7 C (98.1 F) | 11/29/2018 9:16 AM | | | | | PDT | | + + + + + | Respiratory Rate | 18 | 11/29/2018 9:45 AM | | | | | PDT | | + + + + + | Oxygen Saturation | 98% | 11/29/2018 9:45 AM | | | | | PDT [...] documented as of this encounter Progress Notes Estefania Feliz RN - 11/29/2018 9:50 AM PDT Vitals: 11/29/18 0916 11/29/18 0945 BP: 111/78 112/78 Pulse: 126 120 Resp: 18 18 Temp: 36.7 C (98.1 F) TempSrc: Oral SpO2: 98% 98% Administrations This Visit cefTRIAXone (ROCEPHIN) 2 g in lidocaine IM syringe (350 mg/mL) Admin Date 11/29/2018 Action Given Dose 2 g Route Intramuscular Administered By Estefania Feliz RN Monitored throughout treatment; treatment completed without untoward effects from medicatio n noted. Next visit am Verbalizes understanding of plan of care. VS stable. Discharged ambul atory to home in stable condition. Electronically signed by: Estefania Feliz RN 11/29/2018 10:28 Estefania Luciano RN - 0 11/29/2018 9:30 AM PDT Vitals: 11/29/18 0916 BP: 111/78 Pulse: 126 Resp: 18 Temp: 36.7 C (98.1 F) Cecilio Arias received into room 440 independent ambulation accompanied by . States here for IM Rocphin infusion. Reports no change in condition, plan of care since last MD visit. Alert, oriented x 4, cooperative. Electronically signed by: Estefania Feliz RN 11/29/2018 9:30 documented in this enc ounter Plan of Treatment Not on filedocumented as of this encounter Visit Diagnoses + + | Diagnosis | + + | Chronic osteomyelitis of toe of right foot (HCC) | + + documented in this encounter Administered Medications + +--------+ +------+------+ + | Medication Order | MAR | Action | Dose | Rate | Site | | | Action | Date | | | | + +--------+ +------+------+ + | cefTRIAXone (ROCEPHIN) 2 g in | Given | 11/30/19 | 2 g | | Deltoid- | | lidocaine IM syringe (350 mg/mL) | | 19 9:44 | | | Left | | 2 g (rounded from 2,000 mg), | | AM PDT | | | | | Intramuscular, ONCE, 11/29/18 | | | | | | | at 0930, For 1 dose, Keep in | | | | | | | refrigerator. For IM use only., | | | | | | | Indications: Osteomyelitis | | | | | | + +--------+ +------+------+ + +---+---+ | | | +---+---+ documented in this encounter"
--- OUTSIDE RECORDS SUMMARY | ~2020-06-16 | XMS | Encounter Summary ---
Demographics + + + | Address | [address] | | | [place] [address] | + + + | Home Phone [...] [place], | | | | | [place] [address] | | + + + + + Care Team Providers + +------+ + | Care Night Manager Name | Role | Phone | [...] | | | | non-funded | [address] | [place], | | | | | code. | [place] | [place] [address] | | | | | Advised | [id number] | Phone: | | | | | patient's | Phone: | [phone] | | | | | (on | [phone] | Fax: | | | | | 03/12) when | Fax: | [phone] | | | | | she called | [phone] | | | | | | to [...] Description | +--------+---------+ + + + | 04/01/ | Office | [facility] | Amadeo Saab | Left arm pain | | 2016 | Visit | [facility] | [address] | (Primary Dx); | | | | THERAPY [address] [place] | Decreased activities | | | | [place], | [place] [address] | of daily living | | | | [place] [address] | [phone] | (ADL); Lateral | | | | [phone] | | epicondylitis of | | | | | Seth Oneill, OTR/L | left elbow | | | | | [address] | | | | | | [place] [address] | | | | | | [phone] | | | | | | | [...] encounter Progress Notes Seth Oneill, OT - 04/01/2016 11:04 AM PDT [facility] THERAPY OT OP [address] [place] [address] Occupational Therapy Daily Treatment Note Date: 04/01/2016 Patient Information Patient Name: Cecilio Arias Date of : 1970 Age: 46 y.o. History Encounter Diagnoses Code Name Primary? M79.602 Left arm pain Yes Z78.9 Decreased activities of daily living (ADL) M77.12 Lateral epicondylitis of left elbow Date of Onset: 11/15/2015 Referring Provider: Amadeo Saab PA-C Rehab Precautions Office Visit from 03/12/2016 in [facility] THERAPY OT OP Rehab Precautions Precautions Seizure, Poorly controlled/fluctuating blood sugar Rehab Learning Style Office Visit from 03/12/2016 in [facility] THERAPY OT OP Office Visit from 02/03/2015 in [facility] PT [employer] Learning Style Patient's [employer] Learning Style performance of task listening, reading, performance of task, observation Today's Treatment Start Time: 1100 Stop time: 1145 Duration: 45 minutes Timed Treatment Codes: 45 minutes # of OT Visits: 4 Subjective: I'd like the doctor to just operate on it, but I don't know. It also might by my nerve pain. Pain Assessment: Pain Scale Used: NUMERIC Pain Rating Pre Assessment: 8 Objective Pt began with MFR/TPR to left forearm, followed by mini massager vibrator. Pt then educate d on medial and ulnar nerve glide exercises. Pt instructed to do 2x/day. Pt then instructe d on overhead shoulder exercises and eccentric stretches for increased extension of BUEs, ne ck, and core muscles, as pt shows significant concentric/flexion positions when at rest. Pt indicated understanding for all exercises. Assessment Pt with minimal/absent pain reduction from treatments. Plan Monitor nerve glide and stretching exercises for improved pain, improved response to therap y. If pt symptoms are still not improving, possibly recommend pt return to PCP as therapy i neffective for pt symptoms. Electronically signed by: Seth Oneill OT, 04/01/2016 11:50 Patient Name: Cecilio Arias/: 1970/ documented in this enc ounter Plan [...]
--- OUTSIDE RECORDS SUMMARY | ~2020-06-16 | XMS | Encounter Summary ---
Demographics + + + | Address | [address] | | | [place] [address] | + + + | Home Phone | | + + + | Preferred Language | Unknown | + + + | Marital Status | | + + + | Advent Affiliation | Unknown | + + + | Race | White | + + + | Ethnic Group | Not or | + + + Author + + + | Author | [facility] | | | and [place] | + + + | Organization | [facility] | | [...] [place], | | | | | [place] [address] | | + + + + + Care Team Providers + +------+ + | Care Transport Analyst Name | Role | Phone | + +------+ + PCP | Unavailable | + +------+ + Reason for Visit + + + | Reason | Comments | + + + | Knee Pain | | + + + Encounter Details +--------+ + + + + | Date | Type | Department | Care Team | Description | +--------+ + + + + | 02/27/ | Emergency | [facility] | [place] | Knee strain, left, | | 2017 | | [facility] | Stan Flower MD [address] | initial encounter | | | | CENTER [address] | [address] [facility] | (Primary Dx); Sprain | | | | [place] | [place] [address] | of medial | | | | [address] | [phone] | collateral ligament | | | | [phone] | | of right knee, | | | | | | initial encounter | +--------+ + + + + Social [...] + + + | Blood Pressure | 96/49 | 02/27/2017 12:15 PM | | | | | PDT | | + + + + + | Pulse | 97 | 02/27/2017 1:48 PM | | | | | PDT | | + + + + + | Temperature | 36.9 C (98.5 F) | 02/27/2017 12:15 PM | | | | | PDT | | + + + + + | Respiratory Rate | 16 | 02/27/2017 1:48 PM | | | | | PDT | | + + + + + | Oxygen Saturation | 96% | 02/27/2017 1:48 PM | | | | | PDT | | + + + + + | Inhaled Oxygen | - | - | | | Concentration | | | | + + + + + | Weight | 102.5 kg (226 lb) | 02/27/2017 12:15 PM | | | | | PDT | | + + + + + | Height | 185.4 cm (6' 1") | 02/27/2017 12:15 PM | | | | | PDT | | + + + + + | Body Mass Index | 29.82 | 02/27/2017 12:15 PM | | | | | PDT | | + + + + + documented in this encounter Discharge Instructions Instructions Stan Mir MD - 02/27/2017Use the knee brace on the right knee. Ice both knees over the area where they are tender and swollen. Follow-up with Dr. Wood documented in this encounter Medications at Time [...] 1 tablet by | | 0 | 02/15/20 | | | amphetamine-dextroam | mouth once daily if | | | 17 | 8 | | phetamine (ADDERALL) | needed | | | | | | 15 mg tablet | | | | | | + + + +---------+ + + | cholecalciferol | Take 1 capsule by | 90 | 3 | 07/14/20 | | | (VITAMIN D-3) 1,000 | mouth Daily. | capsule | | 15 | 9 | | units capsule | | | | | | + + + +---------+ + + | Dapagliflozin | Take 10 mg by mouth | | 0 | | | | Propanediol (FARXIGA | Daily. | | | | 7 | | PO) | | | | | | + [...] documented as of this encounter ED Notes Jyotsna Bro CNA - 02/27/2017 1:56 PM PDTPlaced hinged knee brace on right knee. Pt c omplained of pain but allowed me to proceed with placement. Stan Villela MD - 02/27/2017 1:09 PM PDTFo rmatting of this note might be different from the original. [facility] Emergency Department Encounter Note [address] [place] [address] PCP:Marty Wood MD [phone] CHIEF COMPLAINT Chief Complaint Patient presents with Knee Pain ED Room: ED15 [facility] Cecilio Arias is a 46 y.o. male who presents for evaluation. This patient has had chronic problems with his knees and is followed by Dr. Wood for them. He stat es that he stepped and his left knee seemed to step into a dip a little bit wrong and he had an onset of pain over the medial aspect and then when he tried to correct by landing on his right knee he heard and felt a pop in the right knee. He complains of pain in both knees o f the right is much worse and more swollen. 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 Osteoporosis Seizure (HCC) Testosterone deficiency Vitamin D deficiency Past Surgical History: Procedure Laterality Date ELBOW SURGERY Left 11/15/2015 Procedure: Left Lateral Epicondylar Release & Injection of Left Elbow Joint ; Surgeon: Janet Wood MD; Location: [facility] MAIN OR KNEE ARTHROSCOPY Right 12/05/2014 Procedure: Right Knee Arthroscopy with Partial Medial Menisectomy and Medial- Femoral Tay droplasty; Surgeon: Marty Wood MD; Location: [facility] MAIN OR spinal cord injury CURRENT MEDICATIONS Previous Medications CHOLECALCIFEROL (VITAMIN D-3) 1,000 UNITS CAPSULE Take 1 capsule by mouth Daily. CYCLOBENZAPRINE (FLEXERIL) 10 MG TABLET 1 tablet orally 3 times per day DAPAGLIFLOZIN PROPANEDIOL (FARXIGA PO) Take by mouth. GABAPENTIN (NEURONTIN) 300 MG CAPSULE take 1 capsule by mouth three times a day GLIPIZIDE (GLUCOTROL) 10 MG TABLET take 1 tablet by mouth twice a day GLUCOSE BLOOD TEST STRIPS (TERRI CONTOUR TEST) STRIP Use as dir LISINOPRIL (PRINIVIL, ZESTRIL) 5 MG TABLET Take 10 mg by mouth Daily. METFORMIN (GLUCOPHAGE) 1000 MG TABLET Take 1,000 mg by mouth 2 times daily (with breakf ast & dinner). METHADONE 10 MG TABLET Take 0.5 tablets by mouth every 8 hours as needed. OMEPRAZOLE (PRILOSEC) 20 MG CAPSULE Take 20 mg by mouth every morning (before breakfast ). ONDANSETRON (ZOFRAN) 4 MG TABLET OXYCODONE (ROXICODONE) 30 MG IMMEDIATE RELEASE TABLET Take 1 tablet by mouth every 6 ho urs as needed for Pain. SENNA LAX 8.6 MG TABLET take 4 tablets by mouth UP TO 2 TIMES A DAY NEEDED FOR CONST IPATION SIMVASTATIN (ZOCOR) 40 MG TABLET Take 20 mg by mouth nightly. ALLERGIES Allergies Allergen Reactions Azithromycin Anaphylaxis Codeine Hives Hydrocodone Hives Sulfa Antibiotics Hives SOCIAL HISTORY Social History Social History Marital status: Single Spouse name: N/A Number of children: N/A Years of education: N/A Social History Main Topics Smoking status: Current Every Day Smoker Packs/day: 0.50 Types: Cigarettes, E-Cigarettes Last attempt to quit: 08/18/2014 Smokeless tobacco: Never Used Alcohol use No Drug use: Types: Marijuana Sexual activity: Not Asked Other Topics Concern None Social History Narrative None REVIEW OF SYSTEMS As in history of present illness. PHYSICAL EXAM VITAL SIGNS: (first vital signs):Temp: 36.9 C (98.5 F) Pulse: 91 Resp: 16 SpO2: 97 % BP : 96/49 Constitutional: mild distress Neurologic: Alert & oriented. Gait and speech are normal. Psychiatric: Normal mood, affect and judgement. Extremities: Tenderness in the left knee over the medial aspect without visible soft tissue swelling. He does have some proximal varicosities. He is able to extend and flex the knee and there is no instability noted. On the right knee he also has pain over the medial aspe ct and with any attempt to stress the medial collateral ligament though I do not detect any definite instability. He has some mild soft tissue swelling. Extension is limited to about 30 short of fully extended. Good pulses distally ED COURSE & MEDICAL DECISION MAKING Pertinent Labs & Imaging studies reviewed. X-rays were interpreted by myself. Medications and Allergy list as well as nursing notes and prior records were reviewed. I did x-ray both knees which are negative. Patient does not want any pain medication. I p laced him in a hinged knee brace on the right and advised to ice both knees. He should foll ow-up with Dr. Wood. Imaging Results (X-rays interpreted by ED physician) X-ray of both knees revealed no acute fractures FINAL IMPRESSION ICD-10-CM ICD-9-CM 1. Knee strain, left, initial encounter S86.912A 844.9 2. Sprain of medial collateral ligament of right knee, initial encounter S83.411A 844.1 Follow-up Information Schedule an appointment as soon as possible for a visit with Marty Wood MD. Specialty: Orthopedic Surgery Contact information: [address] [place] [address] Portions of this chart were created with [employer] voice recognition software. Inadvertent so und alike substitutions may be present and are unintentional Stan Mir MD 02/27/17 1316 documented in t his encounter Miscellaneous Notes ED Triage Notes - Tana Forte RN - 02/27/2017 12:14 PM PDTPt has right knee pain. Has had surgery to the knee several years ago. Was walking yesterday and felt a "pop".Elect ronically signed by Tana Forte RN at 02/27/2017 12:15 PM PDTdocumented in this encou nter Plan of Treatment + +------+--------+ + + | Name | Type | Priori | Associated Diagnoses | Date/Time | | | | ty | | | + +------+--------+ + + | ED INFORMATION | SHITAL | Routin | | 02/27/2017 12:07 PM | | EXCHANGE | | e | | PDT | + +------+--------+ + + documented as of this encounter Procedures + +--------+ + + + | Procedure Name | Priori | Date/Time | Associated Diagnosis | Comments | | | ty | | | | + +--------+ + + + | XR KNEE LEFT 1 - 2 | STAT | 02/27/2017 | | Results for this | | VW | | 12:54 PM | | procedure are in the | | | | PDT | | results section. | + +--------+ + + + | XR KNEE RIGHT 1 - 2 | STAT | 02/27/2017 | | Results for this | | VW | | 12:54 PM | | procedure are in the | | | | PDT | | results section. | + +--------+ + + + | ED INFORMATION | Routin | 02/27/2017 | | | | EXCHANGE | e | 12:07 PM | | | | | | PDT | | | + +--------+ + + + +---+--------+ | | | | | Proced | | | ure | | | Note - | | | Gloria, | | | Lab In | | | | | | Hlseve | | | n - | | | 08/ | | | 2017 | | | 12:08 | | | PM PDT | | [...] ON?/ | | | | | | 7 | | | 12:04? | | | AVLONI | | | TIS, | | | DENIS | | | OPHER | | | S?MRN: | | | | | | [id number] | | | [id number] | | | his | | | [...] | | | ent/17 | | | [id number] | | | [id number] | | | [id number] | | | [id number] | | | [id number] | | | [id number] | | | ED | | | [...] | | | int | | | Kushal 8, | | | 2017 | | | Provid | | | ence | | | [facility] | [place] | | | [place] | | | Emerge | | | ncy | | | Emerge | | | ncy | | | Knee | | | Pain | | | E.D. | | | [...] | | | Center | | | 1 0 | | | Total | | | 1 0 | | | Note: | | [...] | | | . | | | [place] | | | gton | | | PDMP | | | Report | | | [...] MED | | | | | | | | | 02-14 | | | METHAD | | | ONE | | | HCL 10 | | | MG | | | TABLET | | | 480 | | | KAT | | | DENIS | | | ENSEN | | | 2 480 | | | | | | 02-14 | | | DEXTRO | | | AMP-AM | | | PHETAM | | | IN 15 | | | MG TAB | | | 30 | | | KAT | | | DENIS | | | ENSEN | | | 2 0 | | | | | | 02-14 | | | DEXTRO | | | AMP-AM | | | PHET | | | ER 30 | | | MG CAP | | | 30 | | | KAT | | | DENIS | | | ENSEN | | | 0 | | | | | | 02-14 | | | OXYCOD | | | ONE | | | HCL 30 | | | MG | | | TABLET | | | 180 | | | KAT | | | DENIS | | | ENSEN | | | 2 270 | | | | | | 01-13 | | | DEXTRO | | | AMP-AM | | | PHET | | | ER 30 | | | MG CAP | | | 30 | | | KAT | | | DENIS | | | ENSEN | | | 0 | | | | | | 01-13 | | | METHAD | | | ONE | | | HCL 10 | | | MG | | | TABLET | | | 480 | | | KAT | | | DENIS | | | ENSEN | | | 2 480 | | | | | | 01-13 | | | DEXTRO | | | AMP-AM | | | PHETAM | | | IN 15 | | | MG TAB | | | 30 | | | KAT | | | DENIS | | | ENSEN | | | 2 0 | | | | | | 4-24 | | | OXYCOD | | | ONE | | | HCL 30 | | | MG | | | TABLET | | | 180 | | | KAT | | | DENIS | | | ENSEN | | | 2 270 | | | | | | 12-16 | | | DEXTRO | | | AMP-AM | | | PHETAM | | | IN 15 | | | MG TAB | | | 30 | | | KAT | | | DENIS | | | ENSEN | | | 2 0 | | | | | | 12-16 | | | METHAD | | | ONE | | | HCL 10 | | | MG | | | TABLET | | | 480 | | | KAT | | | DENIS | | | ENSEN | | | 2 480 | | | | | | 12-16 | | | DEXTRO | | | AMP-AM | | | PHET | | | ER 30 | | | MG CAP | | | 30 | | | KAT | | | DENIS | | | ENSEN | | | 0 | | | | | | 12-16 | | | OXYCOD | | | ONE | | | HCL 30 | | | MG | | | TABLET | | | 180 | | | KAT | | | DENIS | | | ENSEN | | | 2 270 | | | | | | 11-18 | | | DEXTRO | | | AMP-AM | | | PHET | | | ER 30 | | | MG CAP | | | 30 | | | KAT | | | DENIS | | | ENSEN | | | 0 | | | | | | 11-18 | | | METHAD | | | ONE | | | HCL 10 | | | MG | | | TABLET | | | 480 | | | KAT | | | DENIS | | | ENSEN | | | 2 480 | | | | | | 11-18 | | | DEXTRO | | | AMP-AM | | | PHETAM | | | IN 15 | | | MG TAB | | | 30 | | | KAT | | | DENIS | | | ENSEN | | | 2 0 | | | 2017 | | | 2-27 | | | OXYCOD | | | ONE | | | HCL 30 | | | MG | | | TABLET | | | 180 | | | KAT | | | DENIS | | | ENSEN | | | 2 270 | | | | | | 1-29 | | | DEXTRO | | | AMP-AM | | | PHET | | | ER 30 | | | MG CAP | | | 30 | | | KAT | | | DENIS | | | ENSEN | | | 2 0 | | | | | | 1-29 | | | OXYCOD | | | ONE | | | HCL 30 | | | MG | | | TABLET | | | 180 | | | KAT | | | DENIS | | | ENSEN | | | 2 270 | | | | | | 1-29 | | | METHAD | | | ONE | | | HCL 10 | | | MG | | | TABLET | | | 480 | | | KAT | | | DENIS | | | ENSEN | | | 2 480 | | | | | | 1-29 | | | DEXTRO | | | AMP-AM | | | PHETAM | | | IN 15 | | | MG TAB | | | 30 | | | KAT | | | DENIS | | | ENSEN | | | 2 0 | | | 2015-09 | | | 230 | | | METHAD | | | ONE | | | HCL 10 | | | MG | | | TABLET | | | 480 | | | KAT | | | DENIS | | | ENSEN | | | 2 480 | | | 2015-09 | | | 230 | | | OXYCOD | | | ONE | | | HCL 30 | | | MG | | | TABLET | | | 180 | | | KAT | | | DENIS | | | ENSEN | | | 2 270 | | | 2015-09 | | | 2-30 | | | DEXTRO | | | AMP-AM | | | PHET | | | ER 30 | | | MG CAP | | | 30 | | | KAT | | | DENIS | | | ENSEN | | | 2 0 | | | 2015-09 | | | 230 | | | DEXTRO | | | AMP-AM | | | PHETAM | | | IN 10 | | | MG TAB | | | 30 | | | KAT | | | DENIS | | | ENSEN | | | 2 0 Rx | | | | | | Summar | | | y (12 | | | Mo.)Me | | | tric | | | Count | | | CS | | | II-V | | | Rx 43 | | | CS-II | | | Rx 42 | | | Quanti | | | ty | | | Dispen | | | sed | | | [id number] | | | Unique | | | | | | Prescr | | | ibers | | | 1 | | | Unique | | | | | | Pharma | | | cies 1 | | | | | | Benzos | | | 0 | | | Opioid | | | s 25 | | | Long | | | [...] | | | ? | | | 2017 | | | Collec | | | [...] +---+--------+ documented in this encounter Results XR Knee Left 1 - 2 Vw (02/27/2017 12:54 PM PDT) + + | Specimen | + + | | + + + + + | Narrative | Performed At | + + + | XR KNEE LEFT 1 - 2 VW 02/27/2017 12:54 PM HISTORY: KNEE PAIN. | [facility] | | COMPARISON: 04/20/2015. FINDINGS: There are no acute findings. | | | Mild spurring are present of the superior and inferior patella. Bone | | | mineralization is normal. There is a small joint effusion. Soft | | | tissues are unremarkable. IMPRESSION - Mild spurring of superior | | | and inferior patella. Dictated and Signed by: Kyle Peoples MD | | | Electronically signed: 02/27/2017 1:05 PM | | + + + + + | Procedure Note | + + | Gloria, Rad Results In - 02/27/2017 1:08 PM PDT XR KNEE LEFT 1 - 2 VW 02/27/2017 12:54 PM | | | | HISTORY: KNEE PAIN. | | | | COMPARISON: 04/20/2015. | | | | FINDINGS: | | There are no acute findings. Mild spurring are present of the superior and | | inferior patella. Bone mineralization is normal. There is a small joint | | effusion. Soft tissues are unremarkable. | | | | IMPRESSION - | | Mild spurring of superior and inferior patella. | | | | Dictated and Signed by: Kyle Peoples MD | | Electronically signed: 02/27/2017 1:05 PM | + + + +---------+ + + | Performing | Address | City/State/Zipcode | Phone Number | | Organization | | | | + +---------+ + + | [facility] | | | | + +---------+ + + XR Knee Right 1 - 2 Vw (02/27/2017 12:54 PM PDT) + + | Specimen | + + | | + + + + + | Narrative | Performed At | + + + | XR KNEE RIGHT 1 - 2 VW 02/27/2017 12:54 PM HISTORY: KNEE PAIN. | [facility] | | COMPARISON: Multiple priors. FINDINGS: The right knee shows no | | | acute findings. There is stable mild medial compartment joint space | | | loss. Tiny osteophytes are observed of the patella. There is mild | | | spurring of the inferior patella. Bone mineralization is normal. Soft | | | tissues are unremarkable. IMPRESSION - Stable mild degenerative | | | changes of right knee. Dictated and Signed by: Kyle Peoples MD | | | Electronically signed: 02/27/2017 1:03 PM | | + + + + + | Procedure Note | + + | Gloria, Rad Results In - 02/27/2017 1:06 PM PDT XR KNEE RIGHT 1 - 2 VW 02/27/2017 12:54 | | PMHISTORY: KNEE PAIN.COMPARISON: Multiple priors.FINDINGS:The right knee shows no acute | | findings. There is stable mild medial compartmentjoint space loss. Tiny osteophytes are | | observed of the patella. There is mildspurring of the inferior patella. Bone | | mineralization is normal. Soft tissuesare unremarkable.IMPRESSION -Stable mild | | degenerative changes of right knee.Dictated and Signed by: Kyle Peoples MD | | Electronically signed: 02/27/2017 1:03 PM | |The right knee shows no acute findings. There is stable mild medial compartment | |joint space loss. Tiny osteophytes are observed of the patella. There is mild | |spurring of the inferior patella. Bone mineralization is normal. Soft tissues | |are unremarkable. | | | |IMPRESSION - | |Stable mild degenerative changes of right knee. | | | |Dictated and Signed by: Kyle Peoples MD | | Electronically signed: 02/27/2017 1:03 PM | + + + +---------+ + + | Performing | Address | City/State/Zipcode | Phone Number | | Organization | | | | + +---------+ + + | [facility] | | | | + +---------+ + + documented in this encounter Visit Diagnoses + + | Diagnosis | + + | Knee strain, left, initial encounter - Primary | + + | Sprain of medial collateral ligament of right knee, initial encounter | + + documented in this encounter
--- OUTSIDE RECORDS SUMMARY | ~2020-06-16 | XMS | Encounter Summary ---
Demographics + + + | Address | [address] | | | [place] [address] | + + + | Home Phone | | + + + | Preferred Language | Unknown | + + + | Marital Status | | + + + | Quaker Affiliation | Unknown | + + + [...] [place], | | | | | [place] [address] | | + + + + + Care Team Providers + +------+ + | Care Real Estate Broker Associate Name | Role | Phone | + +------+ + | Dimitri Fischer MD | PCP | | + +------+ + Encounter Details +--------+ + + + + | Date | Type | Department | Care Team | Description | +--------+ + + + + | 03/04/ | Hospital | [facility] | Marty Wood | Preop testing; Other | | 2017 | Encounter | [facility] XRAY | MD Gosia [address] [facility] | specified diabetes | | | | [address] [place] | [place] | mellitus (HCC); | | | | [facility] [place] | [address] | Hyperlipidemia, | | | | [address] | | unspecified | | | | [phone] | | hyperlipidemia type; | | | | | | SOB (shortness of | | | | | | breath) on exertion; | | | | | | Bilateral shoulder | | | | | | pain, unspecified | | | | | | chronicity | +--------+ + + + + Social [...] + +---------+ + + | rosuvastatin | take 1 tablet by | | 0 | 03/03/20 | | | (CRESTOR) 40 MG | mouth once daily | | | 17 | 7 | | tablet | | | | [...] +--------+ + + + | XR CHEST PA AND | Routin | 03/04/2017 | Preop testing | Results for this | | LATERAL | e | 9:59 AM | Other specified | procedure are in the | | | | PDT | diabetes mellitus | results section. | | | | | (HCC) | | | | | | Hyperlipidemia, | | | | | | unspecified | | | | | | hyperlipidemia type | | | | | | SOB (shortness of | | | | | | breath) on exertion | | | | | | Bilateral shoulder | | | | | | pain, unspecified | | | | | | chronicity | | + +--------+ + + + documented in this encounter Results XR Chest PA and Lateral (03/04/2017 9:59 AM PDT) + + | Specimen | + + | | + + + + + | Narrative | Performed At | + + + | XR CHEST PA AND LATERAL 03/04/2017 9:59 AM HISTORY: shortness of | [facility] | | breath on exertion. COMPARISON: Multiple priors. Findings: | [facility] | | Heart size and aorta are normal. Mediastinum is unremarkable. Central | [facility] | | pulmonary vasculature is normal. The bilateral lungs are clear with | - IMAGING | | no evidence for pleural effusion or pneumothorax. There is moderate | | | thoracic spondylosis. Moderate degenerative changes are present of | | | the AC joints. IMPRESSION - No acute findings. Dictated and | | | Signed by: Kyle Peoples MD Electronically signed: 03/04/2017 10:01 | | | AM | | + + + + + | Procedure Note | + + | Kiko, Rad Results In - 03/04/2017 10:04 AM PDT XR CHEST PA AND LATERAL 03/04/2017 9:59 | | AMHISTORY: shortness of breath on exertion.COMPARISON: Multiple priors.Findings:Heart | | size and aorta are normal. Mediastinum is unremarkable. Central pulmonaryvasculature is | | normal. The bilateral lungs are clear with no evidence forpleural effusion or | | pneumothorax. There is moderate thoracic spondylosis.Moderate degenerative changes are | | present of the AC joints.IMPRESSION -No acute findings.Dictated and Signed by: Kyle | | MD [place] Electronically signed: 03/04/2017 10:01 AM | |Heart size and aorta are normal. Mediastinum is unremarkable. Central pulmonary | |vasculature is normal. The bilateral lungs are clear with no evidence for | |pleural effusion or pneumothorax. There is moderate thoracic spondylosis. | |Moderate degenerative changes are present of the AC joints. | | | |IMPRESSION - | |No acute findings. | | | |Dictated and Signed by: Kyle Peoples MD | | Electronically signed: 03/04/2017 10:01 AM | + + + + + + + | Performing | Address | City/State/Zipcode | Phone Number | | Organization | | | | + + + + + | [facility] | [address] | [place] | [phone] | | [facility] | | [address] | | | - IMAGING | | | | + + + + + documented in this encounter Visit Diagnoses + + | Diagnosis | + + | Preop testing Preoperative examination, unspecified | + + | Other specified diabetes mellitus | + + | Hyperlipidemia, unspecified hyperlipidemia type | + + | SOB (shortness of breath) on exertion Shortness of breath | + + | Bilateral shoulder pain, unspecified chronicity | + + documented in this encounter"
--- OUTSIDE RECORDS SUMMARY | ~2020-06-16 | XMS | Encounter Summary ---
Demographics + + + | Address | [address] | | | [place] [address] | + + + | Home Phone | | + + + | Preferred Language | Unknown | + + + | Marital Status | | + + + | Evangelical Affiliation | Unknown | + + + | Race | White | + + + | Ethnic Group | Not or | + + + Author + + + | Author | [facility] | | | and [place] | + + + | Organization | [facility] | | | [...] [place], | | | | | [place] [address] | | + + + + + Care Team Providers + +------+ + | Care Multimedia Teacher Name | Role | Phone | [...] | Physical | Diagnoses | [place], | [facility] | | | Services | Therapy / | Sprain of | Marty L, | Pt Op [address] | | | Required | Rehabilitatio | medial | [address] | | | | n | collateral | [address] | [place], | | | | | ligament of | [place], | [place] [address] | | | | | knee, right, | [place] [address] | Phone: | | | | | initial | Phone: | [phone] | | | | | encounter | [phone] | Fax: | | | | | Tear of | Fax: | [phone] | | | | | medial | [phone] | | | | | | cartilage or | | | | | | | meniscus of | | | | | | | knee, | | | | | | | current | | | | | | | 844.1 | | | | | | | (ICD-9-CM) - | | | | | | | Sprain of | | | | | | | medial | | | | | | | collateral | | | | | | | ligament of | | | | | | | knee, | | | | | | | right, | | | | | | | initial | | | | | | | encounter | | | | | | | Procedures | | | | | | | pt eval | | | +--------+ + + + + + Reason for Visit +--------+--------+ + | Reason | Onset | Comments | | | Date | | +--------+--------+ + | Other | 10/31/ | | | | 2014 | | +--------+--------+ + Encounter Details +--------+ + + + + | Date | Type | Department | Care Team | Description | +--------+ + + + + | 10/31/ | Telephone | [facility] | Marty Wood | Other | | 2014 | | ORTHOPEDIC SURGERY | MD [address] | | | | | [address] | [place] | | | | | [place] | [address] | | | | | [address] | | | | | | [phone] | | | +--------+ + + + [...] this encounter Miscellaneous Notes Telephone Encounter - Claudia Gray Master of Arts - 11/04/2014 2:54 PM PSTSUBMITTED FOR SURGERY. elephone Encounter - Claudia Gray Master of Arts - 11/03/2014 5:00 PM PSTCalled patient and spoke with Tasha, notified her that Dr. Wood said to go ahead and submit for surg mila and if he gets authorized we will change his appointment to a pre-op instead of a regula r office visit. Tasha expressed understanding and will relay the information to Lorenzo bermudez elephon e Encounter - Claudia Gray Master of Arts - 11/02/2014 2:[address] Pro mcdonald elephone Encounter - Claudia Gray Master of Arts - 11/02/2014 2:08 PM PSTSpoke with patient, gave him Dr. Wood's response, patient would not like injection as Tasha mentioned when e called. He wants surgery kaleb, he cannot go on living with pain. I informed him I would curry ve to talk to Dr. Wood to see if that is an option for him, if so, I will submit. Sherita green expressed understanding and will wait for my call, he would like to be seen sooner. Elect ronically signed by Claudia Gray Master of Arts at 11/02/2014 2:[address] - Claudia Gray Master of Arts - 11/02/2014 8:54 AM PSTCalled patient, and left lacie ge for him to call back. Need to notify him that Per Dr. Wood, for now patient should keep the appointment on 11/29/14 as scheduled, the re is nothing he can do at this time to help patient with the pain. Dr. Wood said that it is possible he will have to wait until after 12/21/14 for the injection. Insurance will cov er injections up to 3 times a year, so it should be 4 months between each injection. He will discuss options with patient on 11/29/14. Also let him know that a new physical therapy was ordered. elephone Encounter - Brandy Rodriguez - Laura 11/02/2014 8:16 AM PSTPer voicemail patient returned call and wanted to speak with nurse. Marilyn llback [phone] signed by Brandy Rodriguez at 11/02/2014 8:16 AM PSTTelep jessica Encounter - Claudia Gray Master of Arts - 11/01/2014 5:22 PM PSTCalled patient to n otify what Dr. Wood said and also to notify him that a new physical therapy order was s ubmitted. Left patient a message for him to call back. elephone Encounter - Claudia Gray Master of Arts - 11/01/2014 5:[address] Wood, for now patient should keep the appointment on 11/29/14 as scheduled, there is nothing he can do at this time to help patient with the p ain. Dr. Wood said that it is possible he will have to wait until after 12/21/14 for the injection. Insurance will cover injections up to 3 times a year, so it should be 4 months be tween each injection. He will discuss options with patient on 11/29/14. elephone Encounter - Karla Gray Master of Arts - 10/31/2014 11:19 AM PSTNew PT order submitted. elephone Encounter - Bianca Gray, Master of Arts - 10/31/2014 9:[address] Wood elephone Encounter - Claudia Gray, Master of Arts - 10/31/2014 9:12 AM PSTSpoke with patient's clarence nce Tasha and informed her that Dr. Wood is out of the office today. I also informed her that because he had an injection on 08/22/14 it is more likely Dr. Wood will not giv e him an injection until after 11/20/14. I recommended she keep that appointment on 11/29/[address] Wood will discuss options for him. Tasha expressed understanding but would like to know if there is anything Dr. Wood can do to help with the pain. Patient is on a pain medication contract with his PCP already (for a different issue). Electronically sig reva by Claudia Gray Master of Arts at 10/31/2014 9:21 AM PSTTelephone Encounter - Selene Ellison - 10/31/2014 8:45 AM PSTPatient is in a lot of pain and had to cancel his physical therapy due to the pain. elephone Encounter - Selene Ellison - 10/31/2014 8:40 AM PSTPatients Lilly Mckeon called stated that Cecilio was in a lot of pain and is wanting an injection in his right knee, last inject was 08-22-2014. Patient is scheduled for 11-29-2014. documented in this encoun ter Plan of Treatment + + +--------+ + + | Name | Type | Priori | Associated Diagnoses | Order Schedule | | | | ty | | | + + +--------+ + + | * [facility] | Outpatient | Routin | Sprain of medial | Ordered: 10/31/2014 | | Therapy - AMB | Referral | e | collateral ligament | | | Referral | | | of knee, right, | | | | | | initial encounter | | | | | | Tear of medial | | | | | | cartilage or | | | | | | meniscus of knee, | | | | | | current | | + + +--------+ + + documented as of this encounter Visit Diagnoses + + | Diagnosis | + + | Sprain of medial collateral ligament of knee, right, initial encounter - Primary | + + | Tear of medial cartilage or meniscus of knee, current | + + documented in this encounter"
--- OUTSIDE RECORDS SUMMARY | ~2020-06-16 | XMS | Encounter Summary ---
Demographics + + + | Address | [address] | | | [place] [address] | + + + | Home Phone [...] [place], | | | | | [place] [address] | | + + + + + Care Team Providers + +------+ + | Care Cnc Laser Operator Name | Role | Phone | [...] Closed | | Infusion | Diagnoses | [facility], | [facility] | | | | Therapy | | Alexander Flower MD | Infusion [address] | | | | | Osteomyeliti | [address] | | | | | s [address]Me[address] | [address] | [place], | | | | | Radames | [place], | [place] [address] | | | | | Cefepime for | [place] | Phone: | | | | | | [address] | [phone] | | | | | osteomyeliti | Phone: | Fax: | | | | | s Will get | [phone] | [phone] | | | | | 2 doses, | Fax: | | | | | | then erika | [phone] | | | | | | will take | | | | | | | over | | | | | | | Procedures | | | | | | | ME CEFEPIME | | | | | | | HCL FOR | | | | | | | INJECTION, | | | | | | | 500 MG ME | | | | | [...] | +--------+ + + + + | 08/09/ | Hospital | [facility] | Alexander Crum, | Acute osteomyelitis | | 2018 | Encounter | MED CTR OP INFUSION | MD [address] | of toe of right foot | | | | [address] | [place] | ([facility]) | | | | [place] | [address] | | | | | [address] | [phone] | | | | | [phone] | | | +--------+ + + + [...] + + + | Blood Pressure | 129/70 | 08/09/2018 7:50 PM | | | | | PST | | + + + + + | Pulse | 88 | 08/09/2018 7:50 PM | | | | | PST | | + + + + + | Temperature | 37.6 C (99.7 F) | 08/09/2018 7:01 PM | | | | | PST | | + + + + + | Respiratory Rate | 16 | 08/09/2018 7:50 PM | | | | | PST | | + + + + + | Oxygen Saturation | 97% | 08/09/2018 7:50 PM | | | | | PST [...] 0 | 07/09/20 | | | SYR 52YY9-8/2 22G X | TESTOSTERONE TWICE A | [...] +---------+ + + | clomiPHENE | take /2 tablet by | | 0 | 01/03/20 [...] as of this encounter Progress Notes Henrietta Funk RN - 08/09/2018 7:50 PM PSTFormatting of this note might be diffe rent from the original. Vitals: 08/09/18 1901 08/09/18 1950 BP: 132/60 129/70 Pulse: 110 88 Resp: 16 16 Temp: 37.6 C (99.7 F) TempSrc: Oral SpO2: 98% 97% Administrations This Visit cefepime (MAXIPIME) 2 g in sodium chloride 0.9% 50 mL IVPB Admin Date 08/09/2018 Action New Bag Dose 2 g Rate 100 mL/hr Route Intravenous Administered By Henrietta Funk RN Monitored throughout treatment; treatment completed without untoward effects from medicatio n noted. Next visit tomorrow 0800. Verbalizes understanding of plan of care. VS stable. Disc harged ambulatory to home in stable condition. Electronically signed by: Henrietta Funk RN 08/09/2018 19:50 Henrietta Lucas RN - 2017 7:01 PM PST Vitals: 08/09/18 1901 BP: 132/60 Pulse: 110 Resp: 16 Temp: 37.6 C (99.7 F) Cecilio Arias received into room 440, independent ambulation accompanied b y friend. States here for antibiotic infusion. Reports no change in condition, plan of care since last MD visit. Alert, oriented x 4, cooperative. Electronically signed by: Henrietta Funk RN 08/09/2018 19:23 documented in this encounter Plan of Treatment Not on filedocumented as of this encounter Visit Diagnoses + + | Diagnosis | + + | Acute osteomyelitis of toe of right foot (HCC) Acute osteomyelitis, ankle and foot | + + documented in this encounter Administered Medications + +---------+ +------+-------+------+ | Medication Order | MAR | Action | Dose | Rate | Site | | | Action | Date | | | | + +---------+ +------+-------+------+ | cefepime (MAXIPIME) 2 g in | New Bag | 08/09/20 | 2 g | 100 | | | sodium chloride 0.9% 50 mL IVPB | | 18 7:16 | | mL/hr | | | 2 g, Intravenous, Administer over | | PM PST | | | | | 30 Minutes, ONCE, 08/09/18 | | | | | | | at 1915, For 1 dose, 2 grams IV | | | | | | | on 08/09 evening and 08/10 AM, | | | | | | | then [facility] will | | | | | | | take over. Activate system and | | | | | | | mix before use., Indications: | | | | | | | Osteomyelitis | | | | | | + +---------+ +------+-------+------+ +---+---+ | | | +---+---+ documented in this encounter
--- OUTSIDE RECORDS SUMMARY | ~2020-06-16 | XMS | Encounter Summary ---
Demographics + + + | Address | [address] | | | [place] [address] | + + + | Home Phone | | + + + | Preferred Language | Unknown | + + + | Marital Status | | + + + | Pentecostal Affiliation | Unknown | + + + [...] [place], | | | | | [place] [address] | | + + + + + Care Team Providers + +------+ + | Care Pattern Developer Name | Role | Phone | + +------+ + | Dimitri Fischer MD | PCP | | + +------+ + Reason for Visit + +--------+ + | Reason | Onset | Comments | | | Date | | + +--------+ + | Medication Refill | 05/19/ | | | | 2016 | | + +--------+ + Encounter Details +--------+ + + + + | Date | Type | Department | Care Team | Description | +--------+ + + + + | 05/19/ | Telephone | [facility] | Marty Wood | Medication Refill | | 2016 | | ORTHOPEDIC SURGERY | MD [address] [facility] | | | | | [address] | [place] | | | | | [place] | [address] | | | | | [address] | | | | | | [phone] | | | +--------+ + + + [...] this encounter Miscellaneous Notes Telephone Encounter - Sue Moreland Cert MA - 05/22/2017 4:19 PM PDTI spoke suzie Cordova (Pts name is Valerie). She was notified once again that this is the last script f rom . She states that Minor told her this and she understands. elephon e Encounter - Renata Durbin - 05/22/2017 4:11 PM PDTPatient picked up script with ID # [id number] signed by Renata Durbin at 2016 4:12 PM PDTTelephone Encounter - Denia Lopez Ditch Rider - 05/20/2017 10:14 A M PDTRead below elephone Encounter - Denia Lopez Ditch Rider - 05/20/2017 9:23 AM Cheyanne Wood patient needs to know that this is his last prescription, because he is receivi ng other narcotics from an another provider. Contacted patient to let him know that his prescription is ready for brass pickler and I notified patient that this is his last prescription, patient did not like that the fact that I told him that this is his last prescription. Patient stated that " he felt bullied by me telling him that this is last prescription, and he did not understand why he is not going to be rece iving any more pain medication" patient stated. I told patient that since he is already rece iving pain medication from an other provider, and on top of Dr. Wood script, that there is a policy that a patient receiving pain medication from multiple providers, is something our providers like to do, especially since he is receiving large quantities. Patient was ups et and stated that Dr. Wood was aware of him receiving narcotics from another provider and that it was ok for him to receive more on top of the narcotics that he received from Krystle Cowan from [facility], I told patient that Dr. Wood had to give him a prescription due to him being operated on by Dr. Wood. I kept repeating myself until I told patient that if I am not explaining it right to him to were he does not understand, t hat I could get someone else to explain it to him. Patient stated no and patient verbalized understanding, but patient kept stating that he is in pain and does not understand why Dr. Barry moreland is no longer going to give him pain medication. I put patient on hold so I can have him speak to our lead, but patient hung up before I was able to explain anything to my lead . Ruiz Manriquez - Denia Lopez Medical Assistant - 05/20/2017 9:[address] Israel larson to fill the medication requested. Rx prepared and signed by provider & placed in the sary ignated area for the patient brass pickler. Please contact the patient to notify that the Rx is re cindy for brass pickler with photo ID. Please document ID # and expiration date. Clifford Manriquez - Denia Lopez Medical Assistant - 05/19/2017 3:[address] Eleuterio meadows Ree Da Silva - 05/19/2017 11:21 AM PDTPatient called requesting refill. Medication: hydromorphone 4 mg Out in: Today Who will brass pickler: patient Patient was advised that Dr Wood and Amadeo MACK are in surgery today and may not get a refill before running out of medication today. documented in this encounter Plan of Treatment Not on filedocumented as of this encounter Visit Diagnoses Not on filedocumented in this encounter
--- OUTSIDE RECORDS SUMMARY | ~2020-06-16 | XMS | Encounter Summary ---
Demographics + + + | Address | [address] | | | [place] [address] | + + + | Home Phone | | + + + | Preferred Language | Unknown | + + + | Marital Status | | + + + | Yazidism Affiliation | Unknown | + + + | Race | White | + + + | Ethnic Group | Not or | + + + Author + + + | Author | [facility] | | | and [place] | + + + | Organization | [facility] | | [...] [place] | | | | | [place], | | | | | [place] [address] | | + + + + + Care Team Providers + +------+ + | Care Soap Boiler Name | Role | Phone | + +------+ + PCP | Unavailable | + +------+ + Encounter Details +--------+ + + + + | Date | Type | Department | Care Team | Description | +--------+ + + + + | 07/17/ | Documentati | [facility] | Seth Oneill, | | | 2016 | on | MED [facility] ONCOLOGY | OTR/L [address] | | | | | THERAPY [address] | [place] | | | | | [place], | [address] | | | | | [place] [address] | | | | | | [phone] | | | +--------+ + + + [...]
--- OUTSIDE RECORDS SUMMARY | ~2020-06-16 | XMS | Encounter Summary ---
Demographics + + + | Address | [address] | | | [place] [address] | + + + | Home Phone [...] [place], | | | | | [place] [address] | | + + + + + Care Team Providers + +------+ + | Care Inspector Printed Circuit Boards Name | Role | Phone | + +------+ + | Dimitri Fischer MD | PCP | | + +------+ + Encounter Details +--------+ + + + + | Date | Type | Department | Care Team | Description | +--------+ + + + + | 05/20/ | Orders Only | [facility] | Marty Wood | | | 2016 | | ORTHOPEDIC SURGERY | MD [address] | | | | | [address] | [place] | | | | | [place] | [address] | | | | | [address] | | | | | | [phone] | | | +--------+ + + + [...]
--- OUTSIDE RECORDS SUMMARY | ~2020-06-16 | XMS | Encounter Summary ---
Demographics + + + | Address | [address] | | | [place] [address] | + + + | Home Phone [...] [place], | | | | | [place] [address] | | + + + + + Care Team Providers + +------+ + | Care Cylinder Valve Repairer Name | Role | Phone | + +------+ + | No, Physician | PCP | Unavailable | + +------+ + Reason for Visit + + + | Reason | Comments | + + + | Wound Check | [facility] 4[facility] louie hunter raegan pt, right toe | + + + Encounter Details +--------+---------+ + + + | Date | Type | Department | Care Team | Description | +--------+---------+ + + + | 08/06/ | Office | [facility] | Tra Estrada | Osteomyelitis of toe | | 2018 | Visit | CARE [address] | MD Hubert [address] | of right foot (HCC) | | | | [place] | [place] | (Primary Dx); | | | | [address] | [id number] | Diabetic foot | | | | [phone] | | infection (HCC); | | | | | | Chronic diabetic | | | | | | ulcer of right foot | | | | | | determined by | | | | | | examination (HCC) | +--------+---------+ + + + Social History [...] + + + | Blood Pressure | 125/58 | 08/06/2018 2:56 PM | | | | | PST | | + + + + + | Pulse | 105 | 08/06/2018 2:56 PM | | | | | PST | | + + + + + | Temperature | 38.1 C (100.5 F) | 08/06/2018 2:56 PM | | | | | PST | | + + + + + | Respiratory Rate | 16 | 08/06/2018 2:56 PM | | | | | PST | | + + + + + | Oxygen Saturation | 96% | 08/06/2018 2:56 PM | | | | | PST | | + + + + + | Inhaled Oxygen | - | - | | | Concentration | | | | + + + + + | Weight | 82 kg (180 lb 12.4 | 08/06/2018 2:56 PM | | | | oz) | PST | | + + + + + | Height | 182.9 cm (6') | 08/06/2018 2:56 PM | | | | | PST | | + + + + + | Body Mass Index | 24.52 | 08/06/2018 2:56 PM | | | | | PST | | + + + + + documented in this encounter Patient Instructions Patient Instructions Tra Estrada MD - 08/06/2018 2:15 PM PSTReport to [facility] further evaluation and initiation of IV antibiotics.Electr onically signed by Tra Estrada MD at 08/06/2018 4:21 PM PST documented in this encounter Progress Notes Tra Estrada MD - 08/06/2018 2:15 PM PSTFormatting of this note might be differen t from the original. 08/06/2018 Cecilio Arias 1970 Assessment: 1. Osteomyelitis of toe of right foot (HCC) 2. Diabetic foot infection (HCC) 3. Chronic diabetic ulcer of right foot determined by examination (HCC) Three-month history of diabetic foot ulcer presents with progressive infection with fever a nd evidence of osteomyelitis on recent plain films performed by the supervisor contact lens. I discuss t he history and available data with Dr. Guerrero in the ED. He agrees to see the patient and i nitiate workup for IV antibiotics and surgical evaluation. Plan: Report to [facility] for further evaluation and initiation of IV antibiotics. The risks and benefits, including potential side effects of medication changes, have been d iscussed with the patient. We agreed on implementing the current plan. The note may have been dictated using [employer] voice recognition software. It may have not b een proofread in entirety. Minor errors in grammar may occur. History: Cecilio Arias is a 48 y.o. male here for Wound Check (rm 4/ [facility], Dr. palma is folling pt, right toe) HPI 48-year-old male with poorly controlled type II diabetes mellitus presents with his signifi cant other requesting IV antibiotics for a foot infection from an ulcer on his right great t oe starting 3 months ago. He had been cared for by Bridger VIRK who can no longe r care for him due to the complexity of his chronic medical conditions. He has no insurance to cover the supervisor contact lens but paid deutsch to see Dr. Palma this week. He was told he has a pr ogressive foot infection, declined amputation and is here requesting a referral to infectiou s disease in [facility]. He's had progressive pain in his right foot with swelling and redn ess. He has not been on antibiotics orally or IV since ulcer started 3 months ago. He has frequent episodes of sweats and dizziness reporting repeated syncope over the last several m onths. No documented fever, but has chills, sweats and change in appetite with rapid weight loss. I contacted Dr. Rodriguez Palma, supervisor contact lens, by phone. Dr. Palma reports having seen Minor in the last week for this toe ulcer with a probe entering the tuft of the distal phalanx. Rad iographs performed in his office revealed lucency at the right great toe tuft consistent wit h osteomyelitis. A deep wound culture has grown staph aureus, strep, Serratia and Pseudomon as. No other labs were drawn. Dr. Palma recommended amputation of the tip of his great t oe which the patient refused. The patient prefers IV antibiotics and was told to present he re for referral to infectious disease specialist in [facility] for treatment. Current medications, past medical, surgical, family and social histories were reviewed and updated where appropriate. Allergies Allergen Reactions Azithromycin Anaphylaxis Codeine Hives Hydrocodone Hives Sulfa Antibiotics Hives ROS BP 125/58 | Pulse 105 | Temp (!) 38.1 C (100.5 F) (Temporal) | Resp 16 | Ht 1.829 m (6') | Wt 82 kg (180 lb 12.4 oz) | SpO2 96% | BMI 24.52 kg/m Physical Exam Nontoxic, anxious appearing middle-aged male in no distress. Lower extremities: Asymmetry with diffuse erythema, warmth, edema and tenderness of the rig ht foot to the level of the ankle. Bilateral venous varicosities are noted low both knees t o the ankles. 2 cm diameter, 5 mm deep, round ulceration noted on the latter aspect of the right first distal phalanx without purulent drainage. The right great toe is diffusely tend er, warm and erythematous with rapid capillary refill. A small pustule is noted on the dors um of the foot over the mid first metatarsal. Pedal pulses are present. No significant kevin n with flexion and extension of the ankle. Lymphatic: No popliteal or femoral adenopathy appreciated. Neurovascular: Light touch sensation and capillary refill intact in the right foot. Copies of the recent radiograph and recent labs are currently unavailable. By verbal report a recent deep wound culture grew staph, strep, Serratia and Pseudomonas. Radiographs were consistent with osteomyelitis of the right first distal phalanx. Most recent A1c this year is reported at 15.2. Tra Estrada M.D. documented i n this encounter Plan of Treatment Not on filedocumented as of this encounter Visit Diagnoses + + | Diagnosis | + + | Osteomyelitis of toe of right foot (HCC) - Primary Unspecified osteomyelitis, ankle | | and foot | + + | Diabetic foot infection ([facility]) Type II or unspecified type diabetes mellitus with | | other specified manifestations, not stated as uncontrolled | + + | Chronic diabetic ulcer of right foot determined by examination ([facility]) | + + documented in this encounter"
--- OUTSIDE RECORDS SUMMARY | ~2020-06-16 | XMS | Encounter Summary ---
Demographics + + + | Address | [address] | | | [place] [address] | + + + | Home Phone | | + + + | Preferred Language | Unknown | + + + | Marital Status | | + + + | Alevism Affiliation | Unknown | + + + | Race | White | + + + | Ethnic Group | Not or | + + + Author + + + | Author | [facility] | | | and [place] | + + + | Organization | [facility] | | | [...] [place], | | | | | [place] [address] | | + + + + + Care Team Providers + +------+ + | Care Cloth Handler Name | Role | Phone | + +------+ + PCP | Unavailable | + +------+ + Encounter Details +--------+ + + + + | Date | Type | Department | Care Team | Description | +--------+ + + + + | 04/20/ | Hospital | [facility] | [facility] | Knee pain, | | 2015 | Encounter | MED [facility] TOLU XRAY | MD Gosia [address] [facility] | unspecified | | | | [address] [place] | [place], [place] | laterality | | | | [place], [place] | [address] | | | | | [address] | | | | | | [phone] | | | +--------+ + + + [...] XR KNEE RIGHT 1 - 2 | Routin | 04/20/2015 | Knee pain, | Results for this | | VW | e | 2:29 PM | unspecified | procedure are in the | | | | PDT | laterality | results section. | + +--------+ + + + documented in this encounter Results XR Knee Right 1 - 2 Vw (04/20/2015 2:29 PM PDT) + + | Specimen | + + | | + + + + + | Narrative | Performed At | + + + | XR KNEE RIGHT 1 - 2 VW 04/20/2015 2:29 PM HISTORY: knee pain. | [facility] | | COMPARISON: None. FINDINGS: The right knee demonstrates no acute | | | findings. There is mild medial compartment joint space loss. Tiny | | | osteophytes are observed of the patella. There is mild spurring of | | | the inferior patella. Bone mineralization [...] - 04/20/2015 2:43 PM PDT XR KNEE RIGHT 1 - 2 VW 04/20/2015 2:29 | | PMHISTORY: knee pain.COMPARISON: None.FINDINGS:The right knee demonstrates no acute | | findings. There is mild medial compartmentjoint space loss. Tiny osteophytes are | | observed of the patella. There is mildspurring of the inferior patella. Bone | | mineralization is normal. Soft tissuesare unremarkable.The left knee shows no acute | | findings. No significant degenerative changes arepresent. Bone mineralization is normal. | | There is a small joint effusion. Softtissues are unremarkable.IMPRESSION -Mild | | degenerative changes of right knee, no significant degenerative changes ofleft | | knee.Dictated and Signed by: Kyle Peoples MD Electronically signed: 04/20/2015 2:40 PM | |spurring of the inferior patella. Bone mineralization is normal. Soft tissues | |are unremarkable. | | | |The left knee shows no acute findings. No significant degenerative changes are | |present. Bone mineralization is normal. There is a small joint effusion. Soft | |tissues are unremarkable. | | | |IMPRESSION - | |Mild degenerative changes of right knee, no significant degenerative changes of | |left knee. | | | |Dictated and Signed by: Kyle Peoples MD | | Electronically signed: 04/20/2015 2:40 PM | + + + +---------+ + + | Performing | Address | City/State/Zipcode | Phone Number | | Organization | | | | + +---------+ + + | [facility] | | | | + +---------+ + + documented in this encounter Visit Diagnoses + + | Diagnosis | + + | Knee pain, unspecified laterality | + + documented in this encounter"
--- OUTSIDE RECORDS SUMMARY | ~2020-06-16 | XMS | Encounter Summary ---
Demographics + + + | Address | [address] | | | [place] [address] | + + + | Home Phone | | + + + | Preferred Language | Unknown | + + + | Marital Status | | + + + | Presybeterian Affiliation | Unknown | + + + | Race | White | + + + | Ethnic Group | Not or | + + + Author + + + | Author | [facility] | | | and [place] | + + + | Organization | [facility] | | | [...] [place], | | | | | [place] [address] | | + + + + + Care Team Providers + +------+ + | Care Animal Researcher Name | Role | Phone | + [...] | | | | right knee | | | | | | | pain | | | | | | | Procedures | | | | | | | DI: MRI KNEE | | | | | | | W/O CONT | | | +--------+--------+ + + + + Encounter Details +--------+---------+ + + + | Date | Type | Department | Care Team | Description | +--------+---------+ + + + | 08/08/ | Surgery | [facility] | Sabino Coronado MD | DI: MRI KNEE W/O | | 2016 | | MED CTR [facility] | [address] | CONT | | | | [address] | [place] | | | | | [place] | [address] | | | | | [address] | [phone] | | | | | [phone] | | | +--------+---------+ + + + [...] + + + | Blood Pressure | 130/75 | 08/08/2017 8:09 AM | | | | | PST | | + + + + + | Pulse | 69 | 08/08/2017 8:09 AM | | | | | PST | | + + + + + | Temperature | 36.9 C (98.4 F) | 08/08/2017 8:09 AM | | | | | PST | | + + + + + | Respiratory Rate | 14 | 08/08/2017 8:09 AM | | | | | PST | | + + + + + | Oxygen Saturation | 97% | 08/08/2017 8:09 AM | | | | | PST | | + + + + + | Inhaled Oxygen | - | - | | | Concentration | | | | + + + + + | Weight | 97.2 kg (214 lb 4.6 | 08/08/2017 8:09 AM | | | | oz) | PST | | + + + + + | Height | 182.9 cm (6') | 08/08/2017 8:09 AM | | | | | PST | | + + + + + | Body Mass Index | 29.06 | 08/08/2017 8:09 AM | | | | | PST | | + + + + + documented in this encounter Discharge Instructions Althea Vanessa RN - 08/08/2017Formatting of this note might be different fr om the original. Types of Anesthesia Your anesthesiologist is a willis member of your surgical team. He or she gives you anesthetic s (medications to keep you comfortable and decrease your awareness of surgery) and monitors your condition to keep you safe during surgery. You will have1 of3 kinds of anesthesia d uring your surgery. Monitored anesthesia care (MAC) Often used for surgery that is short or not too invasive. Sedatives (medicines to relax you) are given through an IV (intravenous) line. The area around the surgical site is usually numbed with a local anesthetic. You may choose to remain awake or sleep lightly. Regional anesthesia (sometimes called spinal epidural or jay block) Often used for surgery on the arms, legs, and abdomen. It is also used during childbirth . A specific region of your body is numbed by injecting anesthetic near nerves,near your spine, or near the operative site. You may also be given sedatives through an IV line to relax you. With regional anesthesia, you may choose to remain awake or sleep lightly. General anesthesia Often used for extensive surgery, such as on the heart, brain, or abdominal operation. Also used when the patient wants to be totally asleep. May be given as a gas that you breathe and as medicines that are injected through an IV line. Because you are asleep, you feel no pain and remember nothing of the surgery. The risks and complications of anesthesia depend on your overall health. If you are healthy , the risks are low. The risks are higher for patients with heart or lung problems. Your ane sthesiologist or nurse direct support specialist will discuss the risks with you. Date Last Reviewed: 08/22/201619998116-0239 [employer]. [address] [place] [address]. All righ ts reserved. This information is [...] 0 | 07/09/20 | | | SYR 17NR9-7/2 22G X | TESTOSTERONE TWICE A | [...] | 9 | | units capsule | Thdays | | | | | + + [...] tablet by | 50 | 0 | 05/20/20 | | | (DILAUDID) 4 MG | mouth every 6 hours | tablet | | 17 | 8 | | tablet | as needed for [...] | + +--------+ + + + | DI: MRI | | 08/08/2017 | right knee pain | | | | | 9:04 AM | | | | | | PST | | | + +--------+ + + + | POC GLUCOSE | Routin | 08/08/2017 | | Results for this | | | e | 8:34 AM | | procedure are in the | | | | PST | | results section. | + +--------+ + + + documented in this encounter Results POC Glucose (08/08/2017 8:34 AM PST) + +---------+ + + + | Component | Value | Ref Range | Performed | Pathologist | | | | | At | Signature | + +---------+ + + + | Glucose, | 221 (H) | 70 - 109 mg/dL | [facility] | | | POC | | | [facility] | | | | | | [facility] [...] | [address] | [place] | [phone] | | [facility] | | [address] | | | - LABORATORY | | | | + + + + + documented in this encounter Visit Diagnoses Not on filedocumented in this encounter Administered Medications + +--------+---------+------+------+------+ | Medication Order | MAR | Action | Dose | Rate | Site | | | Action | Date | | | | + +--------+---------+------+------+------+ + +---+ | albuterol-ipratropium (DUONEB) | | | 2.5-0.5 mg/3 mL nebulizer | | | solution 3 mL 3 mL, | | | Nebulization, ONCE PRN, Wheezing, | | | Starting Fri08/08/17 at 0842, | | | For 1 dose, Pre-op | | + +---+ | | | + +---+ | albuterol-ipratropium (DUONEB) | | | 2.5-0.5 mg/3 mL nebulizer | | | solution 3 mL 3 mL, | | | Nebulization, ONCE PRN, Wheezing, | | | Shortness of Breath, Starting | | | Fri08/08/17 at 1001, For 1 dose, | | | Recovery/Phase I | | + +---+ | | | + +---+ | dextrose 50% injection 12.5-25 | | | g 12.5-25 g, Intravenous, EVERY | | | 15 MIN PRN, Low Blood Sugar, Give | | | 12.5g (25 mL) IV if blood | | | glucose 50-69 mg/dL. Give 25g | | | (50 mL) IV if blood glucose < 50, | | | Starting Fri08/08/17 at 0842, | | | Repeat in 15 min if blood glucose | | | remains < 70 mg/dL. Repeat | | | blood glucose in 30 min once | | | blood glucose > 70., Pre-op | | + +---+ | | | + +---+ | ePHEDrine 50 mg/mL injection 5 | | | mg 5 mg, Intravenous, EVERY 5 | | | MIN PRN, if SBP <90., Starting | | | Fri08/08/17 at 1001, Hold if HR | | | > 100. Maximum total dose 20mg., | | | Recovery/Phase I | | + +---+ | | | + +---+ | fentaNYL (PF) injection 25-50 | | | mcg 25-50 mcg, Intravenous, | | | EVERY 5 MIN PRN, Pain, Starting | | | Fri08/08/17 at 1001, Maximum | | | total dose 250 mcg. PACU IV | | | Narcotic Priority: Only use | | | fentanyl for immediate post-op | | | pain (one dose) or breakthrough | | | pain when any other IV narcotics | | | ordered have been ineffective (if | | | ordered). If both morphine and | | | hydromorphone are ordered, use | | | morphine first, and use | | | hydromorphone if morphine | | | ineffective., Recovery/Phase I | | + +---+ | | | + +---+ | glycopyrrolate (ROBINUL) | | | injection 0.2 mg 0.2 mg, | | | Intravenous, PRN, Bradycardia, | | | For HR <50, Starting Fri08/08/17 | | | at 1001, For 2 doses, May repeat | | | one time after 1min, | | | Recovery/Phase I | | + +---+ | | | + +---+ | hydrALAZINE (APRESOLINE) | | | injection 5 mg 5 mg, | | | Intravenous, EVERY 20 MINUTES | | | PRN, For SBP > 180, DBP > 100, | | | Starting Fri08/08/17 at 1001, | | | Hold if HR > 100. Maximum total | | | dose 40 mg. Use labetalol first | | | if available., Recovery/Phase I | | + +---+ | | | + +---+ | HYDROmorphone (DILAUDID) | | | injection 0.2-0.5 mg 0.2-0.5 mg, | | | Intravenous, EVERY 5 MIN PRN, | | | Pain, Starting Fri08/08/17 at | | | 1001, Maximum total dose 4 mg. | | | PACU IV Narcotic Priority: Only | | | use fentanyl for immediate | | | post-op pain (one dose) or | | | breakthrough pain when any other | | | IV narcotics ordered have been | | | ineffective (if ordered). If | | | both morphine and hydromorphone | | | are ordered, use morphine first, | | | and use hydromorphone if morphine | | | ineffective., Recovery/Phase I | | + +---+ | | | + +---+ | labetalol (TRANDATE) 5 mg/mL | | | injection 5 mg 5 mg, | | | Intravenous, EVERY 5 MIN PRN, For | | | SBP > 180, DBP > 100, Starting | | | Fri08/08/17 at 1001, Hold if HR | | | < 60. Maximum total dose 300mg. | | | Notify anesthesia if patient | | | requires more than 50mg., | | | Recovery/Phase I | | + +---+ | | | + +---+ + +---------+ +--------+-------+---+ | lactated ringers (LR) infusion | New Bag | 08/08/20 | 1,000 | 100 | | | at 10-100 mL/hr, Intravenous, | | 17 8:44 | mLs | mL/hr | | | CONTINUOUS, Starting Fri08/08/17 | | AM PST | | | | | at 0900, TKO. Use this instead | | | | | | | of NS unless dialysis patient., | | | | | | | Pre-op | | | | | | + +---------+ +--------+-------+---+ + +---+ | | | + +---+ | meperidine (DEMEROL) injection | | | 12.5-25 mg 12.5-25 mg, | | | Intravenous, PRN, Shivering, | | | Starting Fri08/08/17 at 1001, | | | For 2 doses, May Repeat once in 5 | | | min., Recovery/Phase I | | + +---+ | | | + +---+ | metoclopramide (REGLAN) 5 mg/mL | | | injection 10 mg 10 mg, | | | Intravenous, EVERY 6 HOURS PRN, | | | Nausea, Vomiting, Starting Fri | | | 08/08/17 at 1001, Protect from | | | light., Recovery/Phase I | | + +---+ | | | + +---+ | ondansetron (ZOFRAN) injection | | | 4 mg 4 mg, Intravenous, ONCE | | | PRN, Nausea, Starting Fri | | | 08/08/17 at 0842, For 1 dose, | | | Pre-op | | + +---+ | | | + +---+ | ondansetron (ZOFRAN) injection | | | 4 mg 4 mg, Intravenous, ONCE | | | PRN, Nausea, Starting Fri | | | 08/08/17 at 1001, For 1 dose, | | | Recovery/Phase I | | + +---+ | | | + +---+ | scopolamine (TRANSDERM-SCOP) 1 | | | mg/3 days 1 patch 1 patch, | | | Transdermal, PRN, adult patients | | | with history of PONV, Starting | | | 08/08/17 at 0842, For 1 dose, | | | PRN for adult patients <65 yo | | | with history of PONV. Hold for | | | patients with glaucoma, dementia, | | | altered mental status, or | | | history of allergy to | | | Scopolamine. Apply to mastoid | | | process behind ear., Pre-op | | + +---+ | | | + +---+ | sodium chloride 0.9% (NS) | | | infusion at 10-100 mL/hr, | | | Intravenous, CONTINUOUS, Starting | | | Fri08/08/17 at 0900, TKO. Use | | | this instead of LR if patient is | | | on dialysis., Pre-op | | + +---+ | | | + +---+ documented in this encounter
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
--- OUTSIDE RECORDS SUMMARY | ~2020-06-16 | XMS | Clinical Summary ---
Demographics + + + | Address | [address] | | | [place] [address] | + + + | Home Phone | | + + + | Preferred Language | Unknown | + + + | Marital Status | Single | + + + | Gnosticist Affiliation | Unknown | + + + | Race | Unknown | + + + | Ethnic Group | Other Race | + + + Author + + + | Author | NON REVENUE LOCATIONS | + + + | Organization | NON REVENUE LOCATIONS | + + + | Address | Unknown | + + + | Phone | Unavailable | + + + Support +------+ +---------+ + | Name | Relationship | Address | Phone | +------+ +---------+ + | Unk | ECON | Unknown | Unavailable | +------+ +---------+ + Care Team Providers + +------+ + | Care Slate Mixer Name | Role | Phone | + +------+ + | Unknown | PCP | Unavailable | + +------+ + Source Comments NICHOL is fully live on both [facility] Ambulatory and [facility] InPatient.[facility] Allergies Not on File Medications Not on file Active Problems Not on file Social History + +-------+ +--------+------+ | Tobacco [...] + + + Last Filed Vital Signs Not on file Plan of Treatment + + +-------+ + | Health Maintenance | Due Date | Last | Comments | | | | Done | | + + +-------+ + | Influenza (Flu) | | | | | vaccination (#1) | 0 | | | + + +-------+ + | Pneumococcal | Aged Out | | No longer eligible based on patient's age | | vaccination | | | to complete this topic | + + +-------+ + Results Not on filefrom Last 3 Months Insurance + +--------+ +--------+-------+---------+--------+ | Payer | Benefi | Subscriber | Effect | Phone | Address | Type | | | t Plan | ID | obed | | | | | | / | | Dates | | | | | | Group | | | | | | + +--------+ +--------+-------+---------+--------+ | SALES REPRESENTATIVE [employer]UCATION COURSES MEDICAID | SALES REPRESENTATIVE EDUCATION COURSES | [id number] | | | | Medica | | | [place] | | 016-Pr | | | id | | | [place] | | esent | | | | + +--------+ +--------+-------+---------+--------+ + +--------+ +--------+ + + | Guarantor Name | Accoun | Relation to | Date | Phone | Billing Address | | | t Type | Patient | of | | | | | | | | | | + +--------+ +--------+ + + | Lorenzo Arias | Person | Self [birth year] | [address] | | r | al/Fam | | 1970 | [phone] | [place], [place] | | | sammi | | | [address] (Home) | [id number] | + +--------+ +--------+ + +"
--- OUTSIDE RECORDS SUMMARY | ~2020-06-16 | XMS | Encounter Summary ---
Demographics + + + | Address | [address] | | | [place] [address] | + + + | Home Phone [...] [place], | | | | | [place] [address] | | + + + + + Care Team Providers + +------+ + | Care Granite Fabricator Name | Role | Phone | + [...] medial | MD [address] | | | | | meniscus, | [address] | [place], | | | | | current | [place], | [place] [address] | | | | | injury, | [place] | Phone: | | | | | right knee, | [address] | [phone] | | | | | initial | Phone: | Fax: | | | | | encounter | [phone] | [phone] | | | | | Pain in | Fax: | | | | | | right knee | [phone] | | | | | | Other [...] | | | | | | [place] | | | | | | | CEFTRIAXONE | | | | | | | SODIUM | | | | | | | INJECTION, | | | | | | | 250 MG [place] | | | | | | | [...] | +--------+ + + + + | 12/12/ | Hospital | [facility] | [place], | Chronic | | 2019 | Encounter | MED CTR OP [facility]ION | MD [address] | osteomyelitis of toe | | | | [address] | [place] | of right foot (HCC) | | | | [place] | [address] | | | | | [address] | [phone] | | | | | [phone] | | | +--------+ + + + [...] + + + | Blood Pressure | 120/64 | 12/12/2018 10:08 AM | | | | | PDT | | + + + + + | Pulse | 78 | 12/12/2018 10:08 AM | | | | | PDT | | + + + + + | Temperature | 36.6 C (97.9 F) | 12/12/2018 9:27 AM | | | | | PDT | | + + + + + | Respiratory Rate | 16 | 12/12/2018 10:08 AM | | | | | PDT | | + + + + + | Oxygen Saturation | 99% | 12/12/2018 10:08 AM | | | | | PDT [...] encounter Progress Notes Henrietta Funk RN - 12/12/2018 10:10 AM PDTFormatting of this note might be diffe rent from the original. Vitals: 12/12/18 0927 12/12/18 1008 BP: 118/56 120/64 Pulse: 89 78 Resp: 16 16 Temp: 36.6 C (97.9 F) TempSrc: Oral SpO2: 99% 99% Administrations This Visit cefTRIAXone (ROCEPHIN) 2 g in sodium chloride 0.9% 50 mL IVPB Admin Date 12/12/2018 Action New Bag Dose 2 g Rate 100 mL/hr Route Intravenous Administered By Henrietta Funk RN Monitored throughout treatment; treatment completed without untoward effects from medicatio n noted. Next visit tomorrow 0900. Verbalizes understanding of plan of care. VS stable. Disc harged ambulatory to home in stable condition. Electronically signed by: Henrietta Funk RN 12/12/2018 11:31 enrietta Funk RN - 019 9:28 AM PDT Vitals: 12/12/18 0927 BP: 118/56 Pulse: 89 Resp: 16 Temp: 36.6 C (97.9 F) Cecilio Arias received into room 441, independent ambulation accompanied by spous e. States here for rocephin infusion. Reports no change in condition, plan of care since nancie thomas MD visit. Alert, oriented x 4, cooperative. Electronically signed by: Henrietta Funk RN 12/12/2018 9:28 documented in this encounter Plan of Treatment [...] 2 g in | New Bag | 12/13/19 | 2 g | 100 | | | sodium chloride 0.9% 50 mL IVPB | | 19 9:33 | | mL/hr | | | 2 g, Intravenous, Administer over | | AM PDT | | | | | 30 Minutes, ONCE, 12/12/18 at | | | | | | | 0925, For 1 dose, Keep in | | [...]
--- OUTSIDE RECORDS SUMMARY | ~2020-06-16 | XMS | Encounter Summary ---
Demographics + + + | Address | [address] | | | [place] [address] | + + + | Home Phone [...] + + + | Author | [facility] | | | and [place] | + + + | Organization | [facility] | | | [...] [place], | | | | | [place] [address] | | + + + + + Care Team Providers + +------+ + | Care Customer Service Voice Name | Role | Phone | + [...] | | | | | | | S/P | | | | | | | orthopedic | | | | | | | surgery, | | | | | | | follow-up | | | | | | | exam (Z09), | | | | | | | Other tear | | | | | | | of medial | | | | | | | meniscus of | | | | | | | right knee | | | | | | | as current | | | | | | | injury, | | | | | | | initial | | | | | | | encounter | | | | | | | (S83.241A), | | | | | | | Patella, | | | | | | | chondromalac | | | | | | | ia, right | | | | | | | (M22.41), | | | | | | | Right knee | | | | | | | pain, | | | | | | | unspecified | | | | | | | chronicity | | | | | | | (M25.561) | | | | | | | Procedures | | | | | | | IN KNEE | | | | | | | SCOPE,DIAGNO | | | | | | | STIC IN | | | | | | | KNEE | | | | | | | SCOPE,PART | | | | | | | SYNOVECT IN | | | | | | | KNEE | | | | | | | SCOPE,SHAVE | | | | | | | ARTICULAR | | | | | | | CART IN | | | | | | | ARTHRS KNEE | | | | | | | W/MENISCECTO | | | | | | | MY MED&LAT | | | | | | | W/SHAVING | | | | | | | IN ARTHRS | | | | | | | KNE SURG | | | | | | | W/MENISCECTO | | | | | | | MY MED/LAT | | | | | | | W/SHVG IN | | | | | | | KNEE | | | | | | | SCOPE,MED OR | | | | | | | LAT MENIS | | | | | | | REPAIR IN | | | | | | | ARTHROCENTES | | | | | | | IS | | | | | | | ASPIR&/INJ | | | | | | | MAJOR | | | | | | | JT/BURSA W/O | | | | | | | US Right | | | | | | | Knee | | | | | | | Arthroscopy | | | | | | | & Left Elbow | | | | | | | Injection | | | +--------+--------+ + + + + Encounter Details +--------+---------+ + + + | Date | Type | Department | Care Team | Description | +--------+---------+ + + + | 02/11/ | Surgery | [facility] | Marty Wood | Right Knee | | 2018 | | [facility] | MD Gosia [address] | Arthroscopy & | | | | [address] | [place], [place] | bilateral Elbow | | | | [place], [place] | [address] | Injections, Lateral | | | | [address] | | Tibial | | | | [phone] | | Chondroplasty, | | | | | | Medial Femoral | | | | | | Chondroplasty, | | | | | | Partial medial | | | | | | meniscectomy | +--------+---------+ + + + Social History [...] + + + | Blood Pressure | 100/62 | 02/11/2018 1:00 PM | | | | | PDT | | + + + + + | Pulse | 51 | 02/11/2018 1:05 PM | | | | | PDT | | + + + + + | Temperature | 36.5 C (97.7 F) | 02/11/2018 12:04 PM | | | | | PDT | | + + + + + | Respiratory Rate | 20 | 02/11/2018 12:50 PM | | | | | PDT | | + + + + + | Oxygen Saturation | 99% | 02/11/2018 1:05 PM | | | | | PDT | | + + + + + | Inhaled Oxygen | - | - | | | Concentration | | | | + + + + + | Weight | 93.6 kg (206 lb 5.6 | 02/11/2018 10:24 AM | | | | oz) | PDT | | + + + + + | Height | 182.9 cm (6') | 02/11/2018 10:24 AM | | | | | PDT | | + + + + + | Body Mass Index | 27.99 | 02/11/2018 10:24 AM | | | | | PDT | | + + + + + documented in this encounter Discharge Instructions Amadeo Hooks PA-C - 02/11/2018Please keep appointment in Dr Wood' s office as already scheduled. Remove the bandages on the third post op day but leave steri-strips in place. Apply bandai ds to portal wound sites. May get wound wet in shower on third post op day. May shower lizette or to this if bandages and wound are protected from water with Saran wrap or something agnieszka ar. Post Operative Care: You can discontinue use of crutches in 1-2. Proceed to full wt bearing on right foot as tolerated Continue to perform gentle range of motion of knee as tolerated Take pain medication as prescribed if prescribed Take one aspirin 325mg daily for blood thinning therapy for next month. Keep injection sites dry at each elbow today. Remove bandaids tomorrow. If you have any questions, comments or concerns please contact our office Do not exceed 4,000 mg of acetaminophen (Tylenol) per day. Hydrocodone-acetaminophen ([place] ) and Oxycodone-acetaminophen (Percocet) have 325 mg acetaminophen per tablet. Regular stren gth acetaminophen is 325 mg per tablet. Extra strength has 500 mg per tablet. Do not consume alcohol while taking opioid mediations. If constipation arises, try docusate-senna one tablet twice daily; milk of magnesia 30 mL o nce each night; or Miralax one capful (17 grams) dissolved in half a cup of water once daily for 3 days. If constipation does not resolve within 3 days after discharge, contact the doc tor's office. documented in this encounter Medications at Time [...] 0 | 07/09/20 | | | SYR 28DD9-2/2 22G X | TESTOSTERONE TWICE A | | | 17 | 9 | | 1-09/23" 3 ML MISC | WEEK | | | | | + + + +---------+ + + | B-D 3CC LUER-ANDREAS | | | 0 | 11/18/19 | | | SYR 02OG5-5/2 23G X | | | | 18 [...] encounter H&P Notes Marty Wood MD - 02/11/2018 10:55 AM PDTSURGICAL INTERIM HISTORY & PHYSICAL UPDAT E Pt. Name/Age/: Cecilio Arias 47 y.o. 1970 Date of admission: 02/11/2018 The current H&P was reviewed. The patient [...] answered. Consent was obtained. Electronically signed by: Marty Wood MD, 02/11/2018 10:55 [facility] arty Wood MD - 02/05/2018 2:15 PM PDT 02/05/18 Patient: Cecilio Arias History of present illness: Cecilio is a 47 y.o. male who presents to our clinic today for a preop examination. Cecilio is scheduled for a right knee arthroscopy combined with injections of the left elbow and both shoulder subacromial spaces on 02/11/18. He has histo ry of having previous [...] (HCC) Lab results placed in chart regarding EXY022 Phenotype. Osteoporosis PONV (postoperative nausea and vomiting) Seizure (HCC) Testosterone deficiency Vitamin D deficiency Past Surgical History: Procedure Laterality Date CARPAL TUNNEL RELEASE Left 05/14/2017 Procedure: Left Elbow Joint Exploration and Bilateral Shoulder Injection; Surgeon: Nirmal Wood MD; Location: [facility] [place] MAIN OR ELBOW SURGERY Left 11/15/2015 Procedure: Left Lateral Epicondylar Release & Injection of Left Elbow Joint ; Surgeon: Janet Wood MD; Location: [facility] [place] MAIN OR KNEE ARTHROSCOPY Right 12/05/2014 Procedure: Right Knee Arthroscopy with Partial Medial Menisectomy and Medial- Femoral Tay droplasty; Surgeon: Marty Wood MD; Location: [facility] [place] MAIN OR MANDIBLE SURGERY spinal cord injury [...] at noon 0 B-D 3CC LUER-ANDREAS SYR 75TF2-3/2 22G X 1-1/2" 3 ML MISC use to INJECT TESTOSTERONE TWICE A WEEK 0 B-D 3CC LUER-ANDREAS SYR 71FD2-2/2 23G X 1-1/2" 3 ML MISC 0 [...] by the author. documented in this encounter Miscellaneous Notes Op Note - Marty Wood MD - 02/11/2018 12:04 PM PDTOPERATIVE REPORT MARTY WOOD MD Patient: Cecilio Zimmerman Avlonitis Admitting: MARTY Elise ANA MR #: [id number] DATE OF SURGERY:02/11/2018 DATE OF DICTATION:02/11/2018 OPERATIVE SURGEON: Dr. Marty Wood CAUSTIC ROOM ATTENDANT: Amadeo Saab PA-C ANESTHESIOLOGIST: Dr. Irvin Bro PREOPERATIVE DIAGNOSIS: Internal derangement right knee. Bilateral elbow lateral epicondyl itis. POSTOPERATIVE DIAGNOSIS: Internal derangement right knee with complex tear of middle and po sterior horns of medial meniscus, medial femoral chondromalacia, lateral tibial plateau tay dromalacia. Bilateral elbow lateral epicondylitis. TITLE OF PROCEDURE: Right knee arthroscopy with partial medial menisectomy, motorized chond roplasty of the medial femoral condyle and lateral tibial plateau. Injection of bilateral e lbow lateral epicondyles. HISTORY AND REASON FOR SURGERY: Cecilio is a 47 y.o. male who underwent a right knee arthroscopy with partial medial menisectomy in 2014 for treatment of a right knee torn medial meniscus. He initially did well but then subsequ ently sustained a fall at [employer] and noted return of right knee pain that has persisted in spite of conservative management. He has failed conservative management including rest, anti-inflammatories and decreased activity. An MRI scan was obtained showing further tearin g of the medial meniscus and in view of these findings he was felt to be a candidate for ope rative arthroscopy. In addition, he also has bilateral elbow lateral epicondylitis and would like to have to elbows injected while under anesthesia which is felt to be appropriate. Th erefore, the planned procedure with its risks possible complications, expected prognosis and treatment alternatives was discussed with the patient. Risks and possible complications wer e listed but not limited to infection, nerve and vessel damage, bleeding, pain, scarring, st iffness, possibility of some residual symptoms remaining after surgery and the risk of anest hesia. he verbalized understanding, no guarantees were given nor implied other than that of diligent effort. OPERATIVE ARTHROSCOPIC FINDINGS: The lateral gutter, medial gutter and prepatellar pouch we re free of pathology. The patellofemoral compartment showed minimal grade 1 chondromalacia o f the patella articular surface. The medial compartment showed evidence of the prior partial medial menisectomy with further complex tearing of the posterior and middle horns of the me dial meniscus. There was also prominent grade 3 chondromalacia of the weight bearing area of the medial femoral condyle with unstable articular cartilage flaps. The intercondylar notc h showed intact anterior and posterior cruciate ligaments. The lateral compartment showed g rade 3 chondromalacia of the lateral tibial plateau with unstable articular cartilage flaps. OPERATIVE PROCEDURE: After the patient had signed the consent for surgery, he was brought t o the operating room where she underwent general anesthesia successfully. He had already rec eived 2 grams of IV Ancef. First, we injected the region of both elbow lateral epicondyles under sterile conditions wi th a combination of 1 mL betamethasone and 4 mls of 1/2% Ropivacaine into each elbow. The i njections sites were then dressed with band aids. Next, a tourniquet was applied to the right lower extremity, but was not used. The entire r ight lower extremity was prepped with alcohol and DuraPrep and draped in the usual free and sterile sterile manner. At this time, the middle column of the surgical safety checklist was carried out by the surgical team. We injected the knee with 20 mL of 2 percent lidocaine wi th epinephrine. We inserted a drain needle through a small stab incision in the upper medial quadrant. We inserted an arthroscope into the knee through a small stab incision in the low er lateral quadrant. A portal was made in the lower medial quadrant with the aid of an 18 ga uge needle. Inspection was carried out with the findings as noted above. We then directed our attention to the medial compartment and performed a partial medial men isectomy using end biter forceps, side biter forceps, the S 90 ablator, and the motorized sh aver. We trimmed away 20-40% of the posterior and middle horns of the medial meniscus back to a stable edge. We also performed a motorized chondroplasty of the weight bearing area o f the medial femoral condyle trimming away the unstable articular cartilage flaps back to a stable surface. We then went to the lateral compartment and performed a motorized chondropl asty trimming back the unstable articular cartilage flaps back to a stable surface. This being done, we made sure all of the debris was removed from the knee and we then irrig ated the knee and upon this we then removed the instruments in the lower 2 portals and close d those portals with 4-0 Monocryl. We injected the knee with 9 mL of 0.5 percent Naropin and 1 mL of betamethasone followed by which the drain needle was removed and all 3 incisions we re secured with Steri-Strips and benzoin. We then injected all 3 portal types with 3 mL each of 0.5 percent Naropin. We then dressed the wounds with dry gauze fluffs, ABD, sterile Kerl ix and a 6 inch Wily wrap. Anesthesia [...] DME: Crutches | DME | Routin | Acute medial | Ordered: 02/11/2018 | | | | e | meniscus tear of | | | | | | right knee, initial | | | | | | encounter Chronic | | | | | | pain of right knee | | + +------+--------+ + + documented as of this encounter Procedures + +--------+ + + + | Procedure Name | Priori | Date/Time | Associated Diagnosis | Comments | | | ty | | | | + +--------+ + + + | ARTHROSCOPY KNEE | | 02/11/2018 | S/P orthopedic | | | | | 11:12 AM | surgery, follow-up | | | | | PDT | exam (Z09), Other | | | | | | tear of medial | | | | | | meniscus of right | | | | | | knee as current | | | | | | injury, initial | | | | | | encounter | | | | | | (S83.241A), Patella, | | | | | | chondromalacia, | | | | | | right (M22.41), | | | | | | Right knee pain, | | | | | | unspecified | | | | | | chronicity (M25.561) | | + +--------+ + + + +---+--------+ | | Case | | | Notes | | | | | | Elbow | | | Inject | | | ion, | | | Should | | | er | | | Inject | | | ion | +---+--------+ + +--------+ +---+ + | POC GLUCOSE | Routin | 02/11/2018 | | Results for this | | | e | 11:09 AM | | procedure are in the | | | | PDT | | results section. | + +--------+ +---+ + documented in this encounter Results POC Glucose (02/11/2018 11:09 AM PDT) + +---------+ + + + | Component | Value | Ref Range | Performed | Pathologist | | | | | At | Signature | + +---------+ + + + | Glucose, | 224 (H) | 70 - 109 mg/dL | [facility] | | | POC | | | [...] [address] | [place] | [phone] | | [facility] | | [address] | | | - LABORATORY | | | | + + + + + documented in this encounter Visit Diagnoses Not on filedocumented in this encounter Administered Medications + +--------+ +--------+------+------+ | Medication Order | MAR | Action | Dose | Rate | Site | | | Action | Date | | | | + +--------+ +--------+------+------+ | acetaminophen (TYLENOL) tablet | Given | 02/12/20 | 975 mg | | | | 975 mg 975 mg (rounded from 10:57 | | | | | 1,000 mg), Oral, ONCE, Wed | | AM PDT | | | | | 02/11/18 at 1100, For 1 dose, | | | | | | | Pre-op | | | | | | + +--------+ +--------+------+------+ + +---+ | | | + +---+ | albuterol 2.5 mg/3 mL nebulizer | | | solution 2.5 mg 2.5 mg, | | | Nebulization, ONCE PRN, Wheezing, | | | Starting 02/11/18 at 1033, | | | For 1 dose, RT will administer., | | | Pre-op | | + +---+ | | | + +---+ | albuterol 2.5 mg/3 mL nebulizer | | | solution 2.5 mg 2.5 mg, | | | Nebulization, ONCE PRN, Wheezing, | | | Starting Fri02/11/18 at 1156, | | | For 1 dose, Notify anesthesia if | | | patient is wheezing and does not | | | have a history of asthma or COPD | | | or current smoking., | | | Recovery/Phase I | | + +---+ | | | + +---+ | albuterol-ipratropium (DUONEB) | | | 2.5-0.5 mg/3 mL nebulizer | | | solution 3 mL 3 mL, | | | Nebulization, ONCE PRN, Wheezing, | | | Starting Fri02/11/18 at 1033, | | | For 1 dose, Pre-op | | + +---+ | | | + +---+ + +-------+ +------+---+ + | betamethasone (CELESTONE | Given | 02/12/20 | 1 mL | | Other | | SOLUSPAN) injection PRN, | | 18 11:43 | | | (Comment | | Starting Fri02/11/18 at 1141, | | AM PDT | | | ) | | Intra-op | | | | | | + +-------+ +------+---+ + +-------+ +------+---+ + | Given | 02/12/20 | 1 mL | | Other | | | 18 11:42 | | | (Comment | | | AM PDT | | | ) | +-------+ +------+---+ + | Given | 02/12/20 | 1 mL | | Surgical | | | 18 11:41 | | | Site | | | AM PDT | | | | +-------+ +------+---+ + + +---+ | | | + +---+ | dextrose 50% injection 12.5-25 | | | g 12.5-25 g, Intravenous, EVERY | | | 15 MIN PRN, Low Blood Sugar, Give | | | 12.5g (25 mL) IV if blood | | | glucose 50-69 mg/dL. Give 25g | | | (50 mL) IV if blood glucose < 50, | | | Starting 02/11/18 at 1033, | | | Repeat in 15 min if blood glucose | | | remains < 70 mg/dL. Repeat | | | blood glucose in 30 min once | | | blood glucose > 70., Pre-op | | + +---+ | | | + +---+ | diphenhydrAMINE (BENADRYL) 12.5 | | | mg/5 mL liquid 25 mg 25 mg, | | | Oral, EVERY 4 HOURS PRN, Itching, | | | Starting Fri02/11/18 at 1222, | | | Give nalbuphine 1st, if | | | ineffective or not ordered, | | | administer diphenhydrAMINE. | | | Oral route is preferred., | | | Post-op/Phase II | | + +---+ | | | + +---+ | diphenhydrAMINE (BENADRYL) | | | injection 12.5 mg 12.5 mg, | | | Intravenous, EVERY 4 HOURS PRN, | | | Itching, Starting Fri02/11/18 at | | | 1222, Give nalbuphine 1st, if | | | ineffective or not ordered, | | | administer diphenhydrAMINE. | | | Oral route is preferred., | | | Post-op/Phase II | | + +---+ | | | + +---+ | diphenhydrAMINE (BENADRYL) | | | tablet 25 mg 25 mg, Oral, EVERY | | | 4 HOURS PRN, Itching, Starting | | | Fri02/11/18 at 1222, Give | | | nalbuphine 1st, if ineffective or | | | not ordered, administer | | | diphenhydrAMINE. Oral route is | | | preferred., Post-op/Phase II | | + +---+ | | | + +---+ | fentaNYL (PF) injection 25-50 | | | mcg 25-50 mcg, Intravenous, | | | EVERY 15 MIN PRN, Pain, pain, | | | Starting Fri02/11/18 at 1033, Max | | | total dose 100 mcg., Pre-op | | + +---+ | | | + +---+ + +-------+ +--------+---+---+ | fentaNYL (PF) injection 25-50 | Given | 02/12/20 | 50 mcg | | | | mcg 25-50 mcg, Intravenous, | | 18 12:52 | | | | | EVERY 5 MIN PRN, Pain, Starting | | PM PDT | | | | | 02/11/18 at 1156, Maximum | | | | | | | total dose 250 mcg. PACU IV | | | | | | | Narcotic Priority: Only use | | | | | | | fentanyl for immediate post-op | | | | | | | pain (one dose) or breakthrough | | | | | | | pain when any other IV narcotics | | | | | | | ordered have been ineffective (if | | | | | | | ordered). If both morphine and | | | | | | | hydromorphone are ordered, use | | | | | | | morphine first, and use | | | | | | | hydromorphone if morphine | | | | | | | ineffective., Recovery/Phase I | | | | | | + +-------+ +--------+---+---+ +-------+ +--------+---+---+ | Given | 02/12/20 | 50 mcg | | | | | 18 12:45 | | | | | | PM PDT | | | | +-------+ +--------+---+---+ +---+---+ | | | +---+---+ + +-------+ +--------+---+---+ | gabapentin (NEURONTIN) capsule | Given | 02/12/20 | 600 mg | | | | 600 mg 600 mg, Oral, ONCE, Fri | | 18 10:57 | | | | | 02/11/18 at 1100, For 1 dose, | | AM PDT | | | | | Pre-op | | | | | | + +-------+ +--------+---+---+ +---+---+ | | | +---+---+ + +-------+ +--------+---+---+ | HYDROmorphone (DILAUDID) | Given | 02/12/20 | 0.5 mg | | | | injection 0.2-0.5 mg 0.2-0.5 mg, | | 18 1:02 | | | | | Intravenous, EVERY 5 MIN PRN, | | PM PDT | | | | | Pain, Starting 02/11/18 at | | | | | | | 1156, Maximum total dose 4 mg. | | [...] | | | | | and use hydromorphone if morphine | | | | | | | ineffective., Recovery/Phase I | | | | | | + +-------+ +--------+---+---+ +-------+ +--------+---+---+ | Given | 02/12/20 | 0.5 mg | | | | | 18 12:52 | | | | | | PM PDT | | | | +-------+ +--------+---+---+ +---+---+ | | | +---+---+ + +---------+ +--------+-------+---+ | lactated ringers (LR) infusion | New Bag | 02/12/20 | 1,000 | 100 | | | at 10-100 mL/hr, Intravenous, | | 18 11:12 | mLs | mL/hr | | | CONTINUOUS, Starting 02/11/18 | | AM PDT | | | | | at 1100, TKO., Pre-op | | | | | | + +---------+ +--------+-------+---+ +---------+ +---+---+---+ | New Bag | 02/12/20 | | | | | | 18 11:06 | | | | | | AM PDT | | | | +---------+ +---+---+---+ +---+---+ | | | +---+---+ + +-------+ +--------+---+ + | lidocaine 2%-EPINEPHrine | Given | 02/12/20 | 20 mLs | | Surgical | | 1:100,000 injection PRN, | | 18 11:41 | | | Site | | Starting Fri02/11/18 at 1141, | | AM PDT | | | | | Intra-op | | | | | | + +-------+ +--------+---+ + + +---+ | | | + +---+ | ondansetron (ZOFRAN ODT) | | | disintegrating tablet 4 mg 4 mg, | | | Oral, EVERY 6 HOURS PRN, Nausea, | | | Vomiting, Starting Fri02/11/18 | | | at 1222, First line agent, | | | Post-op/Phase II | | + +---+ | | | + +---+ | ondansetron (ZOFRAN) injection | | | 4 mg 4 mg, Intravenous, ONCE | | | PRN, Nausea, Starting Fri02/11/18 | | | at 1156, For 1 dose, | | | Recovery/Phase I | | + +---+ | | | + +---+ | ondansetron (ZOFRAN) injection | | | 4 mg 4 mg, Intravenous, EVERY 6 | | | HOURS PRN, Nausea, Vomiting, | | | Starting 02/11/18 at 1222, | | | First line agent. Use PO option | | | unless NPO status or unable to | | | tolerate., Post-op/Phase II | | + +---+ | | | + +---+ + +-------+ +-------+---+---+ | oxyCODONE (ROXICODONE) tablet | Given | 02/12/20 | 20 mg | | | | 5-20 mg 5-20 mg, Oral, EVERY 3 | | 18 1:29 | | | | | HOURS PRN, Pain, Starting Wed | | PM PDT | | | | | 02/11/18 at 1222, First dose must | | | | | | | be the lowest dose, can titrate | | | | | | | to effective dose by repeat of | | | | | | | lowest dose every 60 minutes prn | | | | | | | pain, may not exceed maximum dose | | | | | | | ordered per interval. Use Pasero | | | | | | | Sedation Scale., Post-op/Phase | | | | | | | II | | | | | | + +-------+ +-------+---+---+ +---+---+ | | | +---+---+ + +-------+ +-------+---+ + | ropivacaine (NAROPIN) 5 mg/mL | Given | 02/12/20 | 4 mLs | | Other | | (0.5%) injection PRN, Starting | | 18 11:44 | | | (Comment | | 02/11/18 at 1138, Intra-op | | AM PDT | | | ) | + +-------+ +-------+---+ + +-------+ +--------+---+ + | Given | 02/12/20 | 4 mLs | | Other | | | 18 11:43 | | | (Comment | | | AM PDT | | | ) | +-------+ +--------+---+ + | Given | 02/12/20 | 20 mLs | | Surgical | | | 18 11:38 | | | Site | | | AM PDT | | | | +-------+ +--------+---+ + +---+---+ | | | +---+---+ documented in this encounter
--- OUTSIDE RECORDS SUMMARY | ~2020-06-16 | XMS | Encounter Summary ---
Demographics + + + | Address | [address] | | | [place] [address] | + + + | Home Phone | | + + + | Preferred Language | Unknown | + + + | Marital Status | | + + + | Yazdanism Affiliation | Unknown | + + + [...] [place], | | | | | [place] [address] | | + + + + + Care Team Providers + +------+ + | Care Oil Transport Driver Name | Role | Phone | [...] Osteomyeliti | MD [address] | | | | | s, | [address] | [place], | | | | | [place], | [place], | [place] [address] | | | | | or IM 2G | [place] | Phone: | | | | | daily [phone] | [address] | [phone] | | | | | days | Phone: | Fax: | | | | | Procedures | [phone] | [phone] | | | | | [place] | Fax: | | | | | | [facility] | [phone] | | | | | | SODIUM [...] | +--------+ + + + + | 12/16/ | Hospital | [facility] | [place], | Chronic | | 2019 | Encounter | MED CTR OP INFUSION | MD [address] | osteomyelitis of toe | | | | [address] | [place] | of right foot (HCC) | | | | [place], [place] | [address] | | | | | [address] | [phone] | | | | | [phone] | | | +--------+ + + + [...] encounter Progress Notes Henrietta Funk RN - 12/16/2018 6:50 PM PDTPt is not here for rescheduled infusio n. TC to listed phone number- message left on voice mail. documented in this encounter Plan of Treatment Not on filedocumented as of this encounter Visit Diagnoses + + | Diagnosis | + + | Chronic osteomyelitis of toe of right foot (HCC) | + + documented in this encounter"
--- OUTSIDE RECORDS SUMMARY | ~2020-06-16 | XMS | Encounter Summary ---
Demographics + + + | Address | [address] | | | [place] [address] | + + + | Home Phone | | + + + | Preferred Language | Unknown | + + + | Marital Status | | + + + | Islam Affiliation | Unknown | + + + | Race | White | + + + | Ethnic Group | Not or | + + + Author + + + | Author | [facility] | | | and [place] | + + + | Organization | [facility] | | | and [...] [place], | | | | | [place] [address] | | + + + + + Care Team Providers + +------+ + | Care Guitar Technician Name | Role | Phone | + +------+ + | Dimitri Fischer MD | PCP | | + +------+ + Reason for Visit +--------+--------+ + | Reason | Onset | Comments | | | Date | | +--------+--------+ + | Other | 03/06/ | | | | 2016 | | +--------+--------+ + Encounter Details +--------+ + + + + | Date | Type | Department | Care Team | Description | +--------+ + + + + | 03/06/ | Telephone | [facility] | Marty Wood | Other | | 2016 | | ORTHOPEDIC SURGERY | MD Gosia [address] [facility] | | | | | [address] | [place] | | | | | [place] | [address] | | | | | [address] | | | | | | [phone] | | | +--------+ + + + [...] Miscellaneous Notes Telephone Encounter - Denia Lopez Medical Assistant - 03/06/2017 6:17 PM PDTDr. Alves on spoke to Gena Cowan (patients pcp at [facility]) about patients hemoglobin being low and to have health re-evaluated. elephone Encounter - Renata Durbin - 03/06/2017 1:47 P M PDTHEATHER FROM [facility] CALL[facility] STATING THAT THE DR WOULD LIKE TO KNOW WHAT LABS AND/OR TESTS NEEDS TO BE DONE TOMORROW. PLEASE CALL MARIBELL AT [phone] signed Julianne Durbin at 03/06/2017 2:21 PM PDTdocumented in this encounter Plan of Treatment Not on filedocumented as of this encounter Visit Diagnoses Not on filedocumented in this encounter"
--- OUTSIDE RECORDS SUMMARY | ~2020-06-16 | XMS | Encounter Summary ---
Demographics + + + | Address | [address] [facility] | | | [place] [address] | + + + | Home Phone [...] [place], | | | | | [place] [address] | | + + + + + Care Team Providers + +------+ + | Care Heel Coverer Name | Role | Phone | + +------+ + | Russell Sanabria MD | PCP | | + +------+ + Reason for Visit +---------+--------+ + | Reason | Onset | Comments | | | Date | | +---------+--------+ + | Post Op | 11/10/ | | | | 2019 | | +---------+--------+ + Encounter Details +--------+ + + + + | Date | Type | Department | Care Team | Description | +--------+ + + + + | 11/10/ | Telephone | [facility] | Jose Nash | Post Op | | 2019 | | ORTHOPEDIC SURGERY | MD [address] | | | | | [address] | [facility] | | | | | [facility] | [place] [address] | | | | | [address] | [phone] | | | | | [phone] | | | +--------+ + + + [...] Notes Telephone Encounter - Renata Durbin - 11/18/2018 4:03 PM PSTscheduledElectronically sig reva by Renata Durbin at 11/18/2018 4:03 PM PSTTelephone Encounter - Renata Durbin - 9:09 AM PSTLEFT A DETAILED MESSAGE THAT DR NASH NEEDS TO FOLLOW UP WITH HIM TO Kerline TILLMAN HOW HE IS DOING AFTER DOS 11/07/18 RIGHT GREAT TOE SUPERFICIAL BONE BIOPSYElectronicall y signed by Renata Durbin at 11/18/2018 9:11 AM PSTTelephone Encounter - Renata Durbin - 11/10/2018 4:32 PM PSTLMVM THAT WE NEED TO SCHEDULE HIM A POST OP APPT FOR Right great t oe superificial bone biopsy (distal phalanx) DOS 11/07/18 documented in this encounter Plan of Treatment Not on filedocumented as of this encounter Visit Diagnoses Not on filedocumented in this encounter"
--- OUTSIDE RECORDS SUMMARY | ~2020-06-16 | XMS | Encounter Summary ---
Demographics + + + | Address | [address] [facility] [facility] | | | [place] [address] | + + + | Home Phone | | + + + | Preferred Language | Unknown | + + + | Marital Status | | + + + | Anabaptist Affiliation | Unknown | + + + | Race | White | + + + | Ethnic Group | Not or | + + + Author + + + | Author | [facility] | | | and [place] | + + + | Organization | [facility] | | | and [...] [place], | | | | | [place] [address] | | + + + + + Care Team Providers + +------+ + | Care Ceramic Restorer Name | Role | Phone | + [...] Osteomyeliti | MD [address] | | | | | s, | [address] | [place], | | | | | Rocephin,IV, | [place], | [place] [address] | | | | | or IM 2G | [place] | Phone: | | | | | daily X42 | [address] | [phone] | | | | | days | Phone: | Fax: | | | | | Procedures | [phone] | [phone] | | | | | [place] | Fax: | | | | | | CEFTRIAXONE | [phone] | | | | | | SODIUM | | | | | | | INJECTION, | | | | | | | 250 MG IN | | | | | | [...] + + + + | 12/07/ | Hospital | [facility] | [facility], | Chronic | | 2019 | Encounter | MED CTR OP INFUSION | MD [address] | osteomyelitis of toe | | | | [address] | [place] | of right foot (HCC) | | | | [place], [place] | [address] | | | | | [address] | [phone] | | | | | [phone] | | | +--------+ + + + [...] + + + | Blood Pressure | 119/65 | 12/07/2018 12:21 PM | | | | | PDT | | + + + + + | Pulse | 111 | 12/07/2018 12:21 PM | | | | | PDT | | + + + + + | Temperature | 36.6 C (97.9 F) | 12/07/2018 11:41 AM | | | | | PDT | | + + + + + | Respiratory Rate | 18 | 12/07/2018 12:21 PM | | | | | PDT | | + + + + + | Oxygen Saturation | 96% | 12/07/2018 12:21 PM | | | | | PDT [...] documented as of this encounter Progress Notes Katiana Frankel RN - 12/07/2018 12:29 PM PDT Vitals: 12/07/18 1141 12/07/18 1221 BP: 132/64 119/65 Pulse: 106 111 Resp: 18 Temp: 36.6 C (97.9 F) TempSrc: Oral SpO2: 97% 96% Administrations This Visit cefTRIAXone (ROCEPHIN) 2 g in sodium chloride 0.9% 50 mL IVPB Admin Date 12/07/2018 Action New Bag Dose 2 g Rate 100 mL/hr Route Intravenous Administered By Katiana Frankel RN Monitored throughout treatment; treatment completed without untoward effects from medicatio n noted. Next visit tomorrow at 1200. Verbalizes understanding of plan of care. VS stable. P t c/o "both LE's swelling" RLE edematous, let less. Pt encouraged to see his PCP. Discharged ambulatory to home in stable condition. Electronically signed by: Katiana Frankel RN 12/07/2018 12:29 atiana Frankel RN - 0 12/07/2018 11:40 AM PDT Vitals: 12/07/18 1141 BP: 132/64 Pulse: 106 Temp: 36.6 C (97.9 F) Cecilio Arias received into room 440, independent ambulation accompanied by his S O. States here for Rocephin infusion. Reports no change in condition, plan of care since nancie thomas MD visit. Alert, oriented x 4, cooperative. Electronically signed by: Katiana Frankel RN 12/07/2018 11:49 documented in this enc ounter Plan of [...] 2 g in | New Bag | 12/08/19 | 2 g | 100 | | | sodium chloride 0.9% 50 mL IVPB | | 19 11:49 | | mL/hr | | | 2 g, Intravenous, Administer over | | AM PDT | | | | | 30 Minutes, ONCE, 12/07/18 at | | | | | | | 1140, For 1 dose, Keep in | | [...]
--- OUTSIDE RECORDS SUMMARY | ~2020-06-16 | XMS | Encounter Summary ---
Demographics + + + | Address | [address] | | | [place] [address] | + + + | Home Phone | | + + + | Preferred Language | Unknown | + + + | Marital Status | | + + + | Spiritism Affiliation | Unknown | + + + [...] [place], | | | | | [place] [address] | | + + + + + Care Team Providers + +------+ + | Care Foreign Service Teacher Name | Role | Phone | + +------+ + PCP | Unavailable | + +------+ + Reason for Visit +--------+--------+ + | Reason | Onset | Comments | | | Date | | +--------+--------+ + | Letter | 10/16/ | | | | 2015 | | +--------+--------+ + Encounter Details +--------+ + + + + | Date | Type | Department | Care Team | Description | +--------+ + + + + | 10/16/ | Telephone | [facility] | Marty Wood | Letter | | 2015 | | ORTHOPEDIC SURGERY | MD [address]ia [address] [facility] | | | | | [address] | [place] | | | | | [place] | [address] | | | | | [address] | | | | | | [phone] | | | +--------+ + + + [...] Notes Telephone Encounter - Renata Durbin - 10/25/2015 10:24 AM PSTPATIENT CALLED AND REQUESTE D WE MAIL THE LETTER TO PATIENTS RESIDENCE.Electronically signed by Renata Durbin at 10/25 10:25 AM PSTTelephone Encounter - Renata Durbin - 10/25/2015 10:22 AM PSTPATIENT NO TIFIED LETTER IS READY FOR BOAT ASSEMBLER. PATIENT ACKNOWLEDGED AND WILL COME TO PICK UPElectronic ally signed by Renata Durbin at 10/25/2015 10:23 AM PSTTelephone Encounter - Claudia Gray CMA - 10/24/2015 1:27 PM PSTLetter addressed to patient with the information he requeste d is ready for orange picker. This letter was not addressed to admitted attorneys. If patient would like a l екатерина specifically addressed to admitted attorneys, he will need to come in and sign a release of info rmation which should include who we are sending the information to. elephone Encounter - Renata Durbin - 10/24 11:00 AM PSTPatient called back with Community Board Member's address. [address] [place] [id number] signed by Renata Durbin at 10/24/2015 11:02 AM PSTTelephone Encounter - Renata Durbin - 10/24/2015 10:50 AM PSTCalled Cecilio to request his admitted attorneys's Add ress. Cecilio stated he doesn't know the address and would call us back with informatio n. Renata Durbin eleph one Encounter - Selene lElison - 10/20/2015 10:41 AM PSTLeft message for patient to return our call. elephone [facility] - Ree Do - 10/18/2015 11:08 AM PSTLeft message for patient to call office.Gloria ctronically signed by Ree Do at 10/18/2015 11:08 AM PSTTelephone Encounter - Selene Marrero - 10/17/2015 9:59 AM PSTLeft message for patient to return our call.Electronica lly signed by Selene Ellison at 10/17/2015 9:59 AM PSTTelephone Encounter - Claudia Gray CMA - 10/16/2015 5:15 PM PSTPlease contact patient and request information for the attorne y we are to send this letter too. elephone Encounter - Selene Ellison - 10/16/2015 3:23 PM PSTChristopher pemberton d requesting a letter which states his date of surgery and what kind of surgery he is having on 11-20-2015 for his admitted attorneys. He would like a call when his is ready for orange picker at [phone]. documented in this encounter Plan of Treatment Not on filedocumented as of this encounter Visit Diagnoses Not on filedocumented in this encounter"
--- OUTSIDE RECORDS SUMMARY | ~2020-06-16 | XMS | Encounter Summary ---
Demographics + + + | Address | [address] [facility] [facility] | | | [place] [address] | + + + | Home Phone | | + + + | Preferred Language | Unknown | + + + | Marital Status | | + + + | Mosque Affiliation | Unknown | + + + | Race | White | + + + | Ethnic Group | Not or | + + + Author + + + | Author | [facility] | | | and [place] | + + + | Organization | [facility] | | [...] [place], | | | | | [place] [address] | | + + + + + Care Team Providers + +------+ + | Care Car Driver Name | Role | Phone | + +------+ + PCP | Unavailable | + +------+ + Reason for Visit + + + | Reason | Comments | + + + | Elbow Pain | left elbow pain | + + + Encounter Details +--------+---------+ + + + | Date | Type | Department | Care Team | Description | +--------+---------+ + + + | 09/12/ | Office | [facility] | Miranda Perez | Tennis elbow, left | | 2014 | Visit | ORTHOPEDIC SURGERY | MD Gosia [address] | (Primary Dx); | | | | [address] | [place] | Post-traumatic | | | | [place] | [address] | osteoarthritis of | | | | [address] | | left elbow | | | | [phone] | | | +--------+---------+ + + + [...] + + + + | Temperature | 37.1 C (98.7 F) | 09/12/2015 9:45 AM | | | | | PST [...] Weight | 117.9 kg (260 lb) | 09/12/2015 9:45 AM | | | | | PST | | + + + + + | Height | 182.9 cm (6') | 09/12/2015 9:45 AM | | | | | PST | | + + + + + | Body Mass Index | 35.26 | 09/12/2015 9:45 AM | | | | | PST | | + + + + + documented in this encounter Progress Notes Miranda Perez MD - 09/12/2015 1:13 PM PSTSee soap note [id number].Electronically sign ed by Miranda Perez MD at 09/12/2015 1:13 PM PSTMiranda Perez MD - 1:12 PM PST [facility] [address] [place] [address] [id number] OFFICE NOTE MIRANDA PEREZ MD Patient: CECILIO GARCIA Admitting: MR #: [id number] LOC: PT TYPE: Adm Date: 09/12/2015 : 1970 The patient returns today for a followup of his left elbow lateral epicondylitis. He stat es he had minimal improvement from his injection given at the time of his last visit on . Physical therapy was denied by his insurance. He has failed other nonoperative m easures, including medication and bracing. EXAMINATION: Exam of the patient's left elbow reveals that he is distinctly tender in the region of the lateral epicondyle. He has a 10 degree flexion contracture of the elbow london nt as well. X-RAYS: X-rays taken previously 06/27/2015 show moderate degenerative joint disease of th e left elbow with prominence of the tip of the olecranon process as well as hypertrophy of the coronoid process. ADVICE: We discussed our findings with Cecilio. He has actually 2 processes going on in the elbow including degenerative joint disease as well as lateral epicondylitis. He wo uld like to have surgical intervention, which I feel can be considered if he is able to di scontinue use of nicotine, which is a potent anti-healing agent. We will have Cecilio return for followup evaluation providing he has been able to discontinue use of nicotine fo r surgical planning. MIRANDA PEREZ MD Dictated by MIRANDA PEREZ MD 09/12/2015 13:12:30 Transcribed on 09/13/2015 05:08:12 by onel job# [id number] Confirmation #: [id number] cc: ROMINA SANTOS MD documented in this encounter Plan of Treatment Not on filedocumented as of this encounter Visit Diagnoses + + | Diagnosis | + + | Tennis elbow, left - Primary | + + | Post-traumatic osteoarthritis of left elbow Secondary localized osteoarthrosis, upper | | arm | + + documented in this encounter"
--- OUTSIDE RECORDS SUMMARY | ~2020-06-16 | XMS | Encounter Summary ---
Demographics + + + | Address | [address] | | | [place] [address] | + + + | Home Phone | | + + + | Preferred Language | Unknown | + + + | Marital Status | | + + + | Catholic Affiliation | Unknown | + + + [...] [place], | | | | | [place] [address] | | + + + + + Care Team Providers + +------+ + | Care Canvas Goods Supervisor Name | Role | Phone | [...] | | Services | Therapy / | Bilateral | Marty Elise, | Pt Op [address] | | | Required | Rehabilitatio | elbow joint | MD [address] [place] | | | | n | pain Tennis | [address] | [place], | | | | | elbow, left | [place], | [place] [address] | | | | | Primary | [place] [address] | Phone: | | | | | osteoarthrit | Phone: | [phone] | | | | | is of both | [phone] | Fax: | | | | | knees | Fax: | [phone] | | | | | Procedures | [phone] | | | | | | ot eval | | | +--------+ + + + + + Encounter Details +--------+ + + + + | Date | Type | Department | Care Team | Description | +--------+ + + + + | 08/21/ | Orders Only | [facility] | Marty Wood | Bilateral elbow | | 2014 | | ORTHOPEDIC SURGERY | MD Gosia [address] | joint pain (Primary | | | | [address] [place] | [place] | Dx); Tennis elbow, | | | | [place] | [address] | left; Primary | | | | [address] | | osteoarthritis of | | | | [phone] | | both knees | +--------+ + + + + Social [...] [facility] | Outpatient | Routin | Bilateral elbow | Ordered: 08/21/2015 | | Therapy - AMB | Referral | e | joint pain Tennis | | | Referral | | | elbow, left Primary | | | | | | osteoarthritis of | | | | | | both knees | | + + +--------+ + + documented as of this encounter Visit Diagnoses + + | Diagnosis | + + | Bilateral elbow joint pain - Primary | + + | Tennis elbow, left | + + | Primary osteoarthritis of both knees Primary localized osteoarthrosis, lower leg | + + documented in this encounter"
--- OUTSIDE RECORDS SUMMARY | ~2020-06-16 | XMS | Encounter Summary ---
Demographics + + + | Address | [address] [facility] | | | [place] [address] | + + + | Home Phone | | + + + | Preferred Language | Unknown | + + + | Marital Status | | + + + | Protestant Affiliation | Unknown | + + + | Race | White | + + + | Ethnic Group | Not or | + + + Author + + + | Author | [facility] | | | and [place] | + + + | Organization | [facility] | | [...] [place], | | | | | [place] [address] | | + + + + + Care Team Providers + +------+ + | Care Day Spa Manager Name | Role | Phone | + +------+ + | Dimitri Fischer MD | PCP | | + +------+ + Reason for Visit + +--------+ + | Reason | Onset | Comments | | | Date | | + +--------+ + | Medication Question | 05/14/ | | | | 2016 | | + +--------+ + Encounter Details +--------+ + + + + | Date | Type | Department | Care Team | Description | +--------+ + + + + | 05/14/ | Telephone | [facility] | Marty Wood | Medication Question | | 2016 | | ORTHOPEDIC SURGERY | MD [address]ia [address] [facility] | | | | | [address] | [place] | | | | | [place] | [address] | | | | | [address] | | | | | | [phone] | | | +--------+ + + + [...] encounter Miscellaneous Notes Telephone Encounter - Denia Lopez, Tool And Die Maker Level Five - 05/14/2017 2:46 PM PDTPharmacist R[facility] concerning medication script that patient dropped o ff, and wanted Dr. Wood to be aware patient is receiving 2 other narcotic prescription from [facility] which are Oxycodone 10 mg qty of 130 and methadone 10 mg and a qty o f 480. Spoke to Donny Saab to make him aware and he informed me that Dr. Wood is aware of his other prescription and agreed to witting patient a script for after his procedure. El ectronically signed by Denia Lopez Tool And Die Maker Level Five at 05/14/2017 3:00 PM PDTdocumented in this encounter Plan of Treatment Not on filedocumented as of this encounter Visit Diagnoses Not on filedocumented in this encounter"
--- OUTSIDE RECORDS SUMMARY | ~2020-06-16 | XMS | Encounter Summary ---
Demographics + + + | Address | [address] [facility] [facility] | | | [place] [address] | + + + | Home Phone | | + + + | Preferred Language | Unknown | + + + | Marital Status | | + + + | Jew Affiliation | Unknown | + + + [...] [place], | | | | | [place] [address] | | + + + + + Care Team Providers + +------+ + | Care Associate Team Physician Name | Role | Phone | [...] Osteomyeliti | MD [address] | | | | | s, | [address] | [place], | | | | | Rocephin,IV, | [place], | [place] [address] | | | | | or IM 2G | [place] | Phone: | | | | | daily X42 | [address] | [phone] | | | | | days | Phone: | Fax: | | | | | Procedures | [phone] | [phone] | | | | | [place] | Fax: | | | | | | CEFTRIAXONE | [phone] | | | | | | SODIUM | | | | | | | INJECTION, | | | | | | | 250 MG [place] | | | | | | | [...] | +--------+ + + + + | 12/09/ | Hospital | [facility] | [facility], | Chronic | | 2019 | Encounter | MED CTR OP INFUSION | MD [address] | osteomyelitis of toe | | | | [address] | [place] | of right foot (HCC) | | | | [place], [place] | [address] | | | | | [address] | [phone] | | | | | [phone] | | | +--------+ + + + [...] + + + | Blood Pressure | 130/60 | 12/09/2018 1:00 PM | | | | | PDT | | + + + + + | Pulse | 98 | 12/09/2018 1:00 PM | | | | | PDT | | + + + + + | Temperature | 36.7 C (98.1 F) | 12/09/2018 12:08 PM | | | | | PDT | | + + + + + | Respiratory Rate | 18 | 12/09/2018 1:00 PM | | | | | PDT | | + + + + + | Oxygen Saturation | 95% | 12/09/2018 1:00 PM | | | | | [...] encounter Progress Notes Estefania Feliz RN - 12/09/2018 1:00 PM PDT Vitals: 12/09/18 1208 12/09/18 1300 BP: 129/75 130/60 Pulse: 105 98 Resp: 18 Temp: 36.7 C (98.1 F) TempSrc: Oral SpO2: 94% 95% Administrations This Visit cefTRIAXone (ROCEPHIN) 2 g in sodium chloride 0.9% 50 mL IVPB Admin Date 12/09/2018 Action New Bag Dose 2 g Rate 100 mL/hr Route Intravenous Administered By Estefania Feliz RN Monitored throughout treatment; treatment completed without untoward effects from medicatio n noted. Next visit at 12 Noon. Verbalizes understanding of plan of care. VS stable . Discharged ambulatory to home in stable condition. Electronically signed by: Estefania Feliz RN 12/09/2018 13:51 eccEstefania crouch RN - 0 12/09/2018 12:00 PM PDT Vitals: 12/09/18 1300 BP: 130/60 Pulse: 98 Resp: 18 Temp: Cecilio Arias received into room 441ndependent ambulation accompanied by Sta elvira here for Rocephin infusion. Reports no change in condition, plan of care since last MD jose guadalupe malik. Alert, oriented x 4, cooperative. Electronically signed by: Estefania Feliz RN 12/09/2018 13:50 documented in this enc ounter Plan of [...] 2 g in | New Bag | 12/10/19 | 2 g | 100 | | | sodium chloride 0.9% 50 mL IVPB | | 19 12:18 | | mL/hr | | | 2 g, Intravenous, Administer over | | PM PDT | | | | | 30 Minutes, ONCE, 12/09/18 at | | | | | | | 1210, For 1 dose, Keep in | | [...]
--- OUTSIDE RECORDS SUMMARY | ~2020-06-16 | XMS | Encounter Summary ---
Demographics + + + | Address | [address] | | | [place] [address] | + + + | Home Phone [...] + + + | Author | [facility] | | | and [place] | + + + | Organization | [facility] | | | [...] [place], | | | | | [place] [address] | | + + + + + Care Team Providers + +------+ + | Care Speech Instructor Name | Role | Phone | + +------+ + PCP | Unavailable | + +------+ + Encounter Details +--------+ + + + + | Date | Type | Department | Care Team | Description | +--------+ + + + + | 07/14/ | Hospital | [facility] | Will Capellan, | Chronic pain; Need | | 2015 | Encounter | [facility] | MD [address] | for 23-polyvalent | | | | [address] [place] | [place], [place] | pneumococcal | | | | [place], [place] | [address] | polysaccharide | | | | [address] | | vaccine | | | | [phone] | | | +--------+ + + + [...] albuterol | Inhale 2 puffs into | 2 each | 1 | 06/16/20 | | | (VENTOLIN HFA) 90 | the lungs every 6 | | | 15 | 6 | | mcg/puff inhaler | hours as [...] + + + +---------+ + + | finasteride | | | 0 | 05/03/20 | | | (PROSCAR) 5 mg | | | | 15 | 6 | | tablet | | | | [...] + + +---------+ + + | insulin pen needle | Use as dir | 100 | 0 | 06/27/20 | | | (B-D ULTRAFINE III | | each | | 15 | 5 | | SHORT PEN) 31 gauge | | | | | | | x 8 mm | | | | | | + [...] + + | DRUGS OF ABUSE, | Routin | 07/14/2015 | Chronic pain Need | Results for this | | SCREEN, URINE | e | 12:16 PM | for 23-polyvalent | procedure are in the | | | | PDT | pneumococcal | results section. | | | | | polysaccharide | | | | | | vaccine | | + +--------+ + + + documented in this encounter Results Drugs of Abuse, Screen, Urine (07/14/2015 12:16 PM PDT) + + + + + + | Component | Value | Ref Range | Performed | Pathologist | | | | | At | Signature | + + + + + + | Amphetamine | Negative | Negative | [facility] | | | Screen, | | | [facility] | | | Urine | | | [facility]ICAL | | | | | | [facility] - | | | | | | LABORATORY | | + + + + + + | Barbiturate | Negative | Negative | [facility] | | | s Screen, | | | [facility] | | | Urine | | | MEDICAL | | | | | | CENTER - | | | | | | LABORATORY | | + + + + + + | Benzodiazep | Negative | Negative | [facility] | | | will | | | [facility] | | | Screen, | | | MEDICAL | | | Urine | | | CENTER - | | | | | | LABORATORY | | + + + + + + | Cannabinoid | Positive (A) | Negative | [facility] | | | s Screen, | | | [facility] | | | Urine | | | MEDICAL | | | | | | CENTER - | | | | | | LABORATORY | | + + + + + + | Cocaine | Negative | Negative | [facility] | | | Screen, | | | [facility] | | | Urine | | | MEDICAL | | | | | | CENTER - | | | | | | LABORATORY | | + + + + + + | Methadone | Negative | Negative | [facility] | | | Screen, | | | [facility] | | | Urine | | | MEDICAL | | | | | | CENTER - | | | | | | LABORATORY | | + + + + + + | Opiates | Negative | Negative | [facility] | | | Screen, | | | [facility] | | | Urine | | | [...] [address] | [place] | [phone] | | [facility] | | [address] | | | - LABORATORY | | | | + + + + + documented in this encounter Visit Diagnoses + + | Diagnosis | + + | Chronic pain Other chronic pain | + + | Need for 23-polyvalent pneumococcal polysaccharide vaccine | + + documented in this encounter"
--- OUTSIDE RECORDS SUMMARY | ~2020-06-16 | XMS | Encounter Summary ---
Demographics + + + | Address | [address] [facility] [facility] [facility] | | | [place] [address] | + + + | Home Phone | | + + + | Preferred Language | Unknown | + + + | Marital Status | | + + + | Anabaptism Affiliation | Unknown | + + + | Race | White | + + + | Ethnic Group | Not or | + + + Author + + + | Author | [facility] | | | and [place] | + + + | Organization | [facility] | | | and [place] | + + + | Address | Unknown | + + + | Phone | Unavailable | + + + Support + + + + + | Name | Relationship | Address | Phone | + + + + + | Crystal Luzarlene | ECON | [address] | | | | | [place], | | | | | [place] [address] | | + + + + + Care Team Providers + +------+ + | Care Fraud Prevention Analyst Name | Role | Phone | + +------+ + PCP | Unavailable | + +------+ + Reason for Visit + + + | Reason | Comments | + + + | Follow-up | right knee pain | + + + Encounter Details +--------+---------+ + + + | Date | Type | Department | Care Team | Description | +--------+---------+ + + + | 11/29/ | Office | [facility] | Marty Wood | Medial meniscus | | 2014 | Visit | ORTHOPEDIC SURGERY | MD Leandra [address] | tear, right, | | | | [address] | [place] | subsequent encounter | | | | [place] | [address] | (Primary Dx) | | | | [address] | | | | | | [phone] | | | +--------+---------+ + + + [...] + + + | Blood Pressure | 148/78 | 11/29/2014 12:08 PM | | | | | PDT | | + + + + + | Pulse | 100 | 11/29/2014 12:08 PM | | | | | PDT | | + + + + + | Temperature | 36.7 C (98 F) | 11/29/2014 12:08 PM | | | | | PDT | | + + + + + | Respiratory Rate | 16 | 11/29/2014 12:08 PM | | | | | PDT | | + + + + + | Oxygen Saturation | - | - | | + + + + + | Inhaled Oxygen | - | - | | | Concentration | | | | + + + + + | Weight | 102.1 kg (225 lb) | 11/29/2014 12:08 PM | | | | | PDT | | + + + + + | Height | 182.9 cm (6') | 11/29/2014 12:08 PM | | | | | PDT | | + + + + + | Body Mass Index | 30.52 | 11/29/2014 12:08 PM | | | | | PDT | | + + + + + documented in this encounter H&P Notes Marty Wood MD - 11/29/2014 1:36 PM PDTFormatting of this note might be differen t from the original. History of present illness: Cecilio is a [...] units/mL injection pen Inject under the skin ni nicolas. lisinopril (PRINIVIL, ZESTRIL) 5 mg tablet Take [...] diligent effort. documented in th is encounter Plan of Treatment Not on filedocumented as of this encounter Visit Diagnoses + + | Diagnosis | + + | Medial meniscus tear, right, subsequent encounter - Primary | + + documented in this encounter"
--- OUTSIDE RECORDS SUMMARY | ~2020-06-16 | XMS | Encounter Summary ---
Demographics + + + | Address | [address] [facility] | | | [place] [address] | + + + | Home Phone | | + + + | Preferred Language | Unknown | + + + | Marital Status | | + + + | Episcopalian Affiliation | Unknown | + + + | Race | White | + + + | Ethnic Group | Not or | + + + Author + + + | Author | [facility] | | | and [place] | + + + | Organization | [facility] | | [...] [place], | | | | | [place] [address] | | + + + + + Care Team Providers + +------+ + | Care Photographer'S Assistant Name | Role | Phone | + +------+ + PCP | Unavailable | + +------+ + Reason for Visit + + + | Reason | Comments | + + + | Medication Refill | | + + + Encounter Details +--------+--------+ + + + | Date | Type | Department | Care Team | Description | +--------+--------+ + + + | 06/30/ | Refill | [facility] | Will Capellan, | Medication Refill | | 2014 | | [facility] [place] | [address] | | | | | [address] | [place] | | | | | [place] | [address] | | | | | [address] | | | | | | [phone] | | | +--------+--------+ + + + Social History + + [...] Telephone Encounter - Gabriela Kinsey RN - 07/03/2015 10:21 AM PDTLast appointment: 06/27/15 Next appointment: 07/14/[address] filled [address] Capellan. Is it ok to refill these medications?Electronically si gned by Gabriela Kinsey RN at 07/03/2015 10:22 AM PDTdocumented in this encounter Plan of Treatment Not on filedocumented as of this encounter Visit Diagnoses Not on filedocumented in this encounter"
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
--- OUTSIDE RECORDS SUMMARY | ~2020-06-16 | XMS | Encounter Summary ---
Demographics + + + | Address | [address] | | | [place] [address] | + + + | Home Phone | | + + + | Preferred Language | Unknown | + + + | Marital Status | | + + + | Orthodoxy Affiliation | Unknown | + + + [...] [place], | | | | | [place] [address] | | + + + + + Care Team Providers + +------+ + | Care Instrument Fitter Name | Role | Phone | + [...] Osteomyeliti | MD [address] | | | | | s, | [address] | [place], | | | | | Rocephin,IV, | [place], | [place] [address] | | | | | or IM 2G | [place] | Phone: | | | | | daily X42 | [address] | [phone] | | | | | days | Phone: | Fax: | | | | | Procedures | [phone] | [phone] | | | | | [place] | Fax: | | | | | | CEFTRIAXONE | [phone] | | | | | | SODIUM | | | | | | | INJECTION, | | | | | | | 250 MG SC | | | | | | | [...] | +--------+ + + + + | 12/11/ | Hospital | [facility] | [facility] [place], | Chronic | | 2019 | Encounter | MED CTR OP INFUSION | MD [address] | osteomyelitis of toe | | | | [address] | [place] | of right foot (HCC) | | | | [place], [place] | [address] | | | | | [address] | [phone] | | | | | [phone] | | | +--------+ + + + [...] + + + | Blood Pressure | 114/56 | 12/11/2018 1:03 PM | | | | | PDT | | + + + + + | Pulse | 92 | 12/11/2018 1:03 PM | | | | | PDT | | + + + + + | Temperature | 36.9 C (98.4 F) | 12/11/2018 1:03 PM | | | | | PDT | | + + + + + | Respiratory Rate | 18 | 12/11/2018 1:03 PM | | | | | PDT | | + + + + + | Oxygen Saturation | 96% | 12/11/2018 1:03 PM | | | | | PDT [...] encounter Progress Notes Katiana Frankel RN - 12/11/2018 1:27 PM PDT Vitals: 12/11/18 1235 12/11/18 1303 BP: 140/66 114/56 Pulse: 102 92 Resp: 16 18 Temp: 36.9 C (98.4 F) TempSrc: Oral SpO2: 96% 96% Administrations This Visit cefTRIAXone (ROCEPHIN) 2 g in sodium chloride 0.9% 50 mL IVPB Admin Date 12/11/2018 Action New Bag Dose 2 g Rate 100 mL/hr Route Intravenous Administered By Katiana Frankel RN Monitored throughout treatment; treatment completed without untoward effects from medicatio n noted. Next visit tomorrow am. Verbalizes understanding of plan of care. VS stable. Discha rged ambulatory to home in stable condition. Electronically signed by: Katiana Frankel RN 12/11/2018 13:27 Katiana Dewitt RN - 0 12/11/2018 12:20 PM PDT Vitals: 12/11/18 1235 BP: 140/66 Pulse: 102 Resp: 16 Cecilio Arias received into room 440, independent ambulation accompanied by his w kary. States here for Rocephin infusion. Reports no change in condition, plan of care since diego johnson MD visit. Alert, oriented x 4, cooperative. Electronically signed by: Katiana Frankel RN 12/11/2018 12:38 documented in this enc ounter Plan of [...] 2 g in | New Bag | 12/12/19 | 2 g | 100 | | | sodium chloride 0.9% 50 mL IVPB | | 19 12:35 | | mL/hr | | | 2 g, Intravenous, Administer over | | PM PDT | | | | | 30 Minutes, ONCE, 12/11/18 at | | | | | | | 1225, For 1 dose, Keep in | | [...]
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
--- OUTSIDE RECORDS SUMMARY | ~2020-06-16 | XMS | Encounter Summary ---
Demographics + + + | Address | [address] | | | [place] [address] | + + + | Home Phone | | + + + | Preferred Language | Unknown | + + + | Marital Status | | + + + | Confucianism Affiliation | Unknown | + + + | Race | White | + + + | Ethnic Group | Not or | + + + Author + + + | Author | [facility] | | | and [place] | + + + | Organization | [facility] | | [...] [place], | | | | | [place] [address] | | + + + + + Care Team Providers + +------+ + | Care Precision Assembler Name | Role | Phone | [...] medial | MD [address] | | | | | meniscus, | [address] | [place], | | | | | current | [place], | [place] [address] | | | | | injury, | [place] | Phone: | | | | | right knee, | [address] | [phone] | | | | | initial | Phone: | Fax: | | | | | encounter | [phone] | [phone] | | | | | Pain in | Fax: | | | | | | right knee | [phone] | | | | | | Other [...] | | | | | | [place] | | | | | | | CEFTRIAXONE | | | | | | | SODIUM | | | | | | | INJECTION, | | | | | | | 250 MG [place] | | | | | | [...] | +--------+ + + + + | 12/13/ | Hospital | [facility] | [place], | Chronic | | 2019 | Encounter | MED CTR OP INFUSION | MD [address] | osteomyelitis of toe | | | | [address] | [place] | of right foot (HCC) | | | | [place] | [address] | | | | | [address] | [phone] | | | | | [phone] | | | +--------+ + + + [...] + + + | Blood Pressure | 124/66 | 12/13/2018 10:13 AM | | | | | PDT | | + + + + + | Pulse | 84 | 12/13/2018 10:13 AM | | | | | PDT | | + + + + + | Temperature | 36.6 C (97.9 F) | 12/13/2018 9:35 AM | | | | | PDT | | + + + + + | Respiratory Rate | 16 | 12/13/2018 10:13 AM | | | | | PDT | | + + + + + | Oxygen Saturation | 99% | 12/13/2018 10:13 AM | | | | | PDT [...] encounter Progress Notes Henrietta Funk RN - 12/13/2018 10:14 AM PDTFormatting of this note might be diffe rent from the original. Vitals: 12/13/18 0935 12/13/18 1013 BP: 120/61 124/66 Pulse: 86 84 Resp: 16 16 Temp: 36.6 C (97.9 F) TempSrc: Oral SpO2: 98% 99% Monitored throughout treatment; treatment completed without untoward effects from medicatio n noted. Next visit tomorrow @ 1200. Verbalizes understanding of plan of care. VS stable. Di scharged ambulatory to home in stable condition. Electronically signed by: Henrietta Funk RN 12/13/2018 10:14 Henrietta Keating RN - 019 9:37 AM PDT Vitals: 12/13/18 0935 BP: 120/61 Pulse: 86 Resp: 16 Temp: 36.6 C (97.9 F) Cecilio Arias received into room 441, independent ambulation accompanied by spous e. States here for rocephin infusion. Reports no change in condition, plan of care since nancie thomas MD visit. Alert, oriented x 4, cooperative. Electronically signed by: Henrietta Funk RN 12/13/2018 9:37 documented in this encounter Plan of Treatment Not on filedocumented as of this encounter Visit Diagnoses + + | Diagnosis | + + | Chronic osteomyelitis of toe of right foot (HCC) | + + documented in this encounter"
--- OUTSIDE RECORDS SUMMARY | ~2020-06-16 | XMS | Encounter Summary ---
Demographics + + + | Address | [address] | | | [place] [address] | + + + | Home Phone | | + + + | Preferred Language | Unknown | + + + | Marital Status | | + + + | Zoroastrian Affiliation | Unknown | + + + | Race | White | + + + | Ethnic Group | Not or | + + + Author + + + | Author | [facility] | | | and [place] | + + + | Organization | [facility] | | [...] [place], | | | | | [place] [address] | | + + + + + Care Team Providers + +------+ + | Care Hand Icer Name | Role | Phone | + +------+ + PCP | Unavailable | + +------+ + Encounter Details +--------+ + + + + | Date | Type | Department | Care Team | Description | +--------+ + + + + | 11/09/ | Hospital | [facility] | Marty Wood | Pre-operative | | 2016 | Encounter | [facility] LABORATORY | MD [place] [address] | laboratory | | | | [address] [place] | [place] | examination; | | | | [place] | [address] | Essential | | | | [address] | | hypertension | | | | [phone] | | | +--------+ + + + [...] | 06/27/20 | | | test strips ([employer] | | each | | 15 | 9 | | CONTOUR TEST) strip | | | | | | + + + +---------+ + + | | Take 1 tablet by | 30 | 0 | 11/15/19 | | | HYDROcodone-acetamin | mouth EVERY 4 TO 6 | tablet | | 16 | 6 | | ophen (NORCO) 5-325 | HOURS NEEDED for | | | | | | mg per tablet | Pain. | | | | | + + + +---------+ + + | HYDROmorphone | Take 1 tablet by | 30 | 0 | 11/15/19 | | | (DILAUDID) 4 MG | mouth EVERY 6 TO 8 | tablet | | 16 | 6 | | tablet | HOURS NEEDED for | | | | | | | Pain. | | | | | + + + +---------+ + + | HYDROmorphone | Take 1 tablet by | 40 | 0 | 11/15/19 | | | (DILAUDID) 4 MG | mouth every 6 hours | tablet | | 16 | 6 | | tablet | as needed for Pain | | | | | | | for up to 10 days. | | | | | + [...] + +--------+ + + + | HEMOGLOBIN | Routin | 11/09/2015 | Pre-operative | Results for this | | | e | 9:52 AM | laboratory | procedure are in the | | | | PST | examination | results section. | | | | | Essential | | | | | | hypertension | | + +--------+ + + + documented in this encounter Results Hemoglobin (11/09/2015 9:52 AM PST) + +-------+ + + + | Component | Value | Ref Range | Performed | Pathologist | | | | | At | Signature | + +-------+ + + + | Hemoglobin | 16.2 | 13.5 - 18.0 | [facility] | [...] ST. | [address] | [place], [place] | [phone] | | [facility] | | [address] | | | - LABORATORY | | | | + + + + + documented in this encounter Visit Diagnoses + + | Diagnosis | + + | Pre-operative laboratory examination Pre-procedural laboratory examination | + + | Essential hypertension Unspecified essential hypertension | + + documented in this encounter"
--- OUTSIDE RECORDS SUMMARY | ~2020-06-16 | XMS | Encounter Summary ---
Demographics + + + | Address | [address] | | | [place] [address] | + + + | Home Phone | | + + + | Preferred Language | Unknown | + + + | Marital Status | | + + + | Hinduism Affiliation | Unknown | + + + | Race | White | + + + | Ethnic Group | Not or | + + + Author + + + | Author | [facility] | | | and [place] | + + + | Organization | [facility] | [...] [place], | | | | | [place] [address] | | + + + + + Care Team Providers + +------+ + | Care Ethnographic Materials Conservator Name | Role | Phone | + [...] | | | | | | | left eye | | | | | | | Procedures | | | | | | | TX XCAPSL | | | | | | | CTRC RMVL | | | | | | | INSJ IO LENS | | | | | | | PROSTH W/O | | | | | | | ECP LEFT | | | | | | | [...] 03// | Anesthesia | DANNY DAWSON | Adam, | | | 2019 | Event | [facility] | Cecilio Elise MD | | | | | [address] | [address] | | | | | [place] | [place] | | | | | [address] | [id number] | | | | | [phone] | | | +--------+ + + + + Anesthesia Record + + + + + | Procedure Name | Responsible | Anesthesia Start | Anesthesia Stop Time | | | Anesthesiologist | Time | | + + + + + | LEFT EXTRACTION | Cecilio Elise | 11/30/19 1304 | 11/30/19 1330 | | CATARACT W/ LENS | MD Adam | | | | IMPLANT (Left Eye) | | | | + + + + + +----+---+ + + | Da | T | Event | Comment | | te | i | | | | | m | | | | | e | | | +----+---+ + + | 03 | 1 | | | | /1 | 2 | | | | 0/ | 3 | | | | 20 | 0 | | | | 20 | | | | +----+---+ + + | | 1 | An Checkout | Pre-use anesthesia machine/equipment checkout. | | | 3 | | | | | 0 | | | | | 4 | | | +----+---+ + + | | 1 | An Start | Reassessment prior to anesthesia induction/procedure. | | | 3 | | | | | 0 | | | | | 4 | | | +----+---+ + + | | 1 | Preoxygenat | | | | 3 | ed | | | | 0 | | | | | 6 | | | +----+---+ + + | | 1 | An | | | | 3 | Induction | | | | 0 | | | | | 7 | | | +----+---+ + + | | 1 | An | | | | 3 | Intubation | | | | 0 | | | | | 8 | | | +----+---+ + + | | 1 | AN Bite | | | | 3 | Block | | | | 1 | | | | | 0 | | | +----+---+ + + | | 1 | First | | | | 3 | Inc/Proc St | | | | 1 | | | | | 4 | | | +----+---+ + + | | 1 | Pre-Procedu | | | | 3 | ral Timeout | | | | 1 | Completed | | | | 4 | | | +----+---+ + + | | 1 | Breathing | | | | 3 | Spontaneous | | | | 2 | ly | | | | 4 | | | +----+---+ + + | | 1 | An Stop | Patient handed off to recovery nurse. | | | 3 | | | | | 0 | | | +----+---+ + + +------+ | Meds | +------+ + +---------+ | Name | Total | + +---------+ | Fentanyl | 50 mcg | + +---------+ | lidocaine 2% (PF) | 100 mg | + +---------+ | propofol | 200 mg | + +---------+ | ondansetron | 4 mg | + +---------+ | phenylephrine (Injection) | 400 mcg | + +---------+ | ePHEDrine (AKOVAZ) injection 50 | 10 mg | | mg/mL | | + +---------+ | lactated ringers (LR) infusion | 500 mL | + +---------+ + + | [...] +--------+ + + + | Periph | 11/30/19; 1231; Left; Posterior | 11/30/19 1231 by | 11/30/19 1427 by | | eral | (dorsal); Forearm; | Jeanne Markham, | Betty Samaniego RN | | IV | [id number] catheter system; | RN | | | | 20 gauge, 1 1/4 in length; | | | | | intradermal injection, tolerated | | | | | well; no longer indicated; | | | | | 11/30/19; 1427 | | | +--------+ + + + | Airway | Placement Date: 11/30/19; | 11/30/19 1308 by | 11/30/19 1341 by | | | Placement Time: 1308 (created via | Cecilio Elise | Tana Joe RN | | | procedure documentation); Mask | MD Adam | | | | Ventilation: EZ; Attempts: 1; | | | | | Airway Type: laryngeal mask; | | | | | Size: 5; Trauma: none; Placement | | | | | Check: bilateral chest rise, | | | | | breath sounds equal bilaterally; | | | | | Removal Date: 11/30/19; Removal | | | | | Time: 1341 | | | +--------+ + + + | Wound | 11/30/19; 1315; Incision; Left; | 11/30/19 1315 by | 11/30/19 1427 by | | | eye; Healing; 11/30/19; 142 | Arielle Guidry RN | Betty Samaniego RN | +--------+ + + + documented [...] encounter OR Notes Anesthesia Postprocedure Evaluation - Cecilio Medina MD - 11/30/2019 4:47 PM PDTF ormatting of this note might be different from the original. ANESTHESIA POSTANESTHESIA EVALUATION Cecilio Arias 49 y.o. male 1970 [id number] Procedure(s) LEFT EXTRACTION CATARACT W/ LENS IMPLANT (Left Eye) Cooperates? Yes Mental Status Performs simple tasks. Respiratory Satisfactory - Airway patent (self maintained). Cardiovascular Satisfactory - Blood pressure and heart rate acceptable Temperature Satisfactory Pain Satisfactory N/V Control Satisfactory Hydration Satisfactory - No signs of dehydration Adverse Events ADVERSE EVENTS: No adverse events Vitals Value Taken Time Temp 36.6 C (97.9 F) 11/30/2019 1:27 PM Pulse 100 11/30/2019 2:15 PM Resp 16 11/30/2019 1:58 PM BP 124/72 11/30/2019 2:15 PM Arterial Line BP Arterial Line BP 2 SpO2 97 % 11/30/2019 2:15 PM Vitals shown include unvalidated device data. Electronically signed by Cecilio Medina MD 11/30/2019 4:47 PM [facility] nest[facility] Procedure Notes - Cecilio Medina MD - 11/30/19 20 1:16 PM PDTAssociated Order(s): AirwayAnesthesia Airway Placement 11/30/2019 1:08 PM Preprocedure check: patient identified, suction, airway equipment checked, oxygen, airway a ssessed and patient reassessment prior to induction Mask ventilation: easy Attempts: 1 Airway type: laryngeal mask Size: 5 Cuffed: cuffed Route, reference point: center of mouth Tube secured with: adhesive tape Trauma: none Tube placement verification: bilateral chest rise and equal bilateral breath sounds Performing provider: Cecilio Medina MD Authorizing provider: Cecilio Medina MD Please see intraoperative grid for any additional medication documentation. nesthesia Pre procedure Evaluation - Cecilio Medina MD - 11/29/2019 4:22 PM PDTFormatting of thi s note might be different from the original. ANESTHESIA PREANESTHESIA EVALUATION Cecilio Arias 49 y.o. male 1970 [id number] Procedure(s): LEFT EXTRACTION CATARACT W/ OR W/O LENS IMPLANT (Left Eye) Medical,anesthesia, drug, allergy histories reviewed, NPO status verified. ECG reviewed. Labs reviewed. Review of Systems / Med History Anesthesia History Had prior GA for cataract. (+) PONV. Cardiovascular Results for orders placed or performed during the hospital encounter of 08/11 -ECG 12 lead Result Value Ref Ra nge INTERPRETATION TEXT Sinus tachycardia Right bundle branch block Abnormal ECG When compared with ECG of 05-FEB-2018 15:12, No significant change was found Confirmed by YAZMIN FERNANDEZ MD ([id number]) on 11/02/2019 7:10:59 AM . Negative except where noted below. Exercise tolerance >4 METS(-) dysrhythmias: . Pulmonary Reports no problems with lungs recently. Continues to smoke. (+) Chronic Obstructive Pulmonary Disease.(+) asthma.(+) tobacco use.(+) current smoker. Gastrointestinal/Hepatic (+) hypercholesterolemia. (+) acid reflux. Renal Lab Results Component Value Date CREA 3.04 (H) 11/02/2019 BUN 21 11/02/2019 NA 136 11/02/2019 K 4.1 11/02/2019 CL 94 (L) 11/02/2019 CO2 32 (H) 11/02/2019 . Endocrine (+) obesity: BMI (30-39) (-) Diabetes. Hematology/Other Lab Results Component Value Date WBC 16.9 (H) 11/02/2019 HGB 15.7 11/02/2019 HCT 46.6 11/02/2019 MCV 84.4 11/02/2019 PLT 274 11/02/2019 .(-) coagulopathy. Neuromuscular (+) arthritis, neuropathy. (-) TIA, CVA. (-) seizures. Psychology (+) substance abuse, methamphetamines. (+) psychiatric history of anxiety. Physical Exam Airway MP II, TM >3 FB, Mouth opening >2 FB. Neck: full ROM, extends >30 degrees. Jaw protrus ion normal. Dental (+) dentures-lower, dentures-upper and poor dentition. CV Rhythm regular. (-) murmur. Pulm (+) decreased breath sounds. Anesthesia Plan ASA: 3 (IDDM, meth abuse) Type: General. Declines MAC anesthetic, PARQ for GA. Requests to minimize opioids but was "in a lot of pain last time". Discussed will titrate pain meds prn in pacu Induction: Intravenous. Potential problems: None anticipated. Monitors: Standard ASA monitors. Postop Pain Management: Consent statement: Anesthetic plan, alternatives, risks and benefits discussed with patient. drug reaction, he art problems, nausea, pain, perioperative CV events, respiratory events, sore throat, stroke , delirium Consenting person understands and agrees to proceed. PARQ. documented in this encounter Miscellaneous Notes Anesthesia Post-op Handoff - Cecilio Medina MD - 11/30/2019 1:30 PM PDT ANESTHESIA HANDOFF NOTE Cecilio Arias 49 y.o. male 1970 [id number] LEFT EXTRACTION CATARACT W/ LENS IMPLANT (Left Eye) HANDOFF NOTE Handoff Protocol Used: post-procedure [...] to anesthesia start t o PACU discharge The significant anesthesia concerns and VS in Epic were reviewed with the receiving team. Cecilio Medina MD 11/30/2019 1:30 PM [facility] nest[facility] Post-op Handoff - Cecilio Medina MD - 11/30/19 12:56 PM PDT ANESTHESIA HANDOFF NOTE Cecilio Arias 49 y.o. male 1970 [id number] LEFT EXTRACTION CATARACT W/ OR W/O LENS IMPLANT (Left Eye) HANDOFF NOTE Handoff Protocol Used: post-procedure [...] report from receiving team Patient Location: Phase II Condition: sedated Airway/O2: other (see comments) Multimodal analgesia: multimodal analgesia not used between 6 hours prior to anesthesia sta rt to PACU discharge Multimodal analgesia not used reason: No medical reason exists for NOT using multimodal rajwinder lgesia. Comments: Supplemental Oxygen administered as necessary to maintain oxygen saturations abov e 92%. If the surgery does not typically require Narcotics then Multi-Modal Analgesia is not indic ated. The significant anesthesia concerns and VS in Epic were reviewed with the receiving team. Cecilio Medina MD 11/30/2019 12:56 PM [facility] documented in this encounter Plan of Treatment Not on filedocumented as of this encounter Procedures + +--------+ + + + | Procedure Name | Priori | Date/Time | Associated Diagnosis | Comments | | | ty | | | | + +--------+ + + + | ANE AIRWAY NOTE | Routin | 11/30/2019 | | Results for this | | | e | 1:16 PM | | procedure are in the | | | | PDT | | results section. | + +--------+ + + + documented in this encounter Results Airway (11/30/2019 1:16 PM PDT) + + + | Narrative | Performed At | + + + | Cecilio Medina MD 11/30/2019 1:16 PM Anesthesia | | | Airway Placement 11/30/2019 1:08 PM Preprocedure check: patient | | | identified, suction, airway equipment checked, oxygen, airway | | | assessed and patient reassessment prior to induction Mask | | | ventilation: easy Attempts: 1 Airway type: laryngeal mask Size: 5 | | | Cuffed: cuffed Route, reference point: center of mouth Tube | | | secured with: adhesive tape Trauma: none Tube placement | | | verification: bilateral chest rise and equal bilateral breath sounds | | | Performing provider: Cecilio Medina MD Authorizing | | | provider: Cecilio Medina MD Please see | | | intraoperative grid for any additional medication documentation. | | + + + documented in this encounter Visit Diagnoses Not on filedocumented in this encounter Administered Medications + +--------+ +-------+------+------+ | Medication Order | MAR | Action | Dose | Rate | Site | | | Action | Date | | | | + +--------+ +-------+------+------+ | ePHEDrine (AKOVAZ) 50 mg/mL | Given | 11/30/19 | 10 mg | | | | injection Intravenous, PRN, | | 20 1:21 | | | | | Starting 11/30/19 at 1321, | | PM PDT | | | | | Anesthesia Intra-op | | | | | | + +--------+ +-------+------+------+ +---+---+ | | | +---+---+ + +-------+ +--------+---+---+ | fentaNYL (PF) injection PRN, | Given | 11/30/19 | 50 mcg | | | | Starting 11/30/19 at 1307, | | 20 1:07 | | | | | Anesthesia Intra-op | | PM PDT | | | | + +-------+ +--------+---+---+ +---+---+ | | | +---+---+ + + + +---+---+---+ | lactated ringers (LR) infusion | Continue | 11/30/19 | | | | | at 10-100 mL/hr, Intravenous, | d by | 20 1:12 | | | | | CONTINUOUS, Starting 11/30/19 | Anesthes | PM PDT | | | | | at 1230, TKO., Pre-op | ia | | | | | + + + +---+---+---+ +---------+ +---+-------+---+ | New Bag | 11/30/19 | | 100 | | | | 20 12:30 | | mL/hr | | | | PM PDT | | | | +---------+ +---+-------+---+ +---+---+ | | | +---+---+ + +-------+ +--------+---+---+ | lidocaine (PF) 2% injection | Given | 11/30/19 | 100 mg | | | | PRN, Starting 11/30/19 at | | 20 1:07 | | | | | 1307, Anesthesia Intra-op | | PM PDT | | | | + +-------+ +--------+---+---+ +---+---+ | | | +---+---+ + +-------+ +------+---+---+ | ondansetron (ZOFRAN) injection | Given | 11/30/19 | 4 mg | | | | PRN, Starting 11/30/19 at | | 20 1:12 | | | | | 1312, Anesthesia Intra-op | | PM PDT | | | | + +-------+ +------+---+---+ +---+---+ | | | +---+---+ + +-------+ +---------+---+---+ | phenylephrine (SKYE-SYNEPHRINE) | Given | 11/30/19 | 200 mcg | | | | 100 mcg/mL injection | | 20 1:19 | | | | | Intravenous, PRN, Starting Tue | | PM PDT | | | | | 11/30/19 at 1312, Anesthesia | | | | | | | Intra-op | | | | | | + +-------+ +---------+---+---+ +-------+ +---------+---+---+ | Given | 11/30/19 | 100 mcg | | | | | 20 1:16 | | | | | | PM PDT | | | | +-------+ +---------+---+---+ | Given | 11/30/19 | 100 mcg | | | | | 20 1:12 | | | | | | PM PDT | | | | +-------+ +---------+---+---+ +---+---+ | | | +---+---+ + +-------+ +--------+---+---+ | propofol (DIPRIVAN) injection | Given | 11/30/19 | 200 mg | | | | Intravenous, PRN, Starting Tue | | 20 1:07 | | | | | 11/30/19 at 1307, Anesthesia | | PM PDT | | | | | Intra-op | | | | | | + +-------+ +--------+---+---+ +---+---+ | | | +---+---+ documented in this encounter
--- OUTSIDE RECORDS SUMMARY | ~2020-06-16 | XMS | Encounter Summary ---
Demographics + + + | Address | [address] | | | [place] [address] | + + + | Home Phone [...] [place], | | | | | [place] [address] | | + + + + + Care Team Providers + +------+ + | Care Acetylene Burner Name | Role | Phone | + +------+ + PCP | Unavailable | + +------+ + Encounter Details +--------+ + + + + | Date | Type | Department | Care Team | Description | +--------+ + + + + | 02/07/ | Hospital | [facility] | Dimitri Fischer, | Osteoarthritis, | | 2017 | Encounter | MED CTR XRAY [address] | unspecified | | | | [place] | [place], [place] | osteoarthritis type, | | | | [place] [address] | [address] | unspecified site | | | | [phone] | | | +--------+ + + + [...] + +--------+ + + + | XR ELBOW LEFT 2 VW | Routin | 02/07/2017 | Osteoarthritis, | Results for this | | | e | 1:57 PM | unspecified | procedure are in the | | | | PDT | osteoarthritis type, | results section. | | | | | unspecified site | | + +--------+ + + + documented in this encounter Results XR Elbow Left 2 Vw (02/07/2017 1:57 PM PDT) + + | Specimen | + + | | + + + + + | Narrative | Performed At | + + + | CLINICAL INFORMATION: DEGENERATIVE JOINT DISEASE. COMPARISON: | [facility] | | 06/27/2015. FINDINGS: 2 views of the left elbow. Bones: No | | | fracture or dislocation. No periostitis. The distal triceps tendon | | | enthesophyte again noted. Small forearm extensor tendon common origin | | | enthesophyte. Joints: No joint effusion. Unchanged mild | | | degeneration at the coronoid process. Normal appearance of the | | | radiocapitellar joint. No erosion. Soft tissue: No swelling or | | | abnormal calcification. IMPRESSION - Stable degenerative | | | changes of the elbow. Dictated and Signed by: Jason Martinez MD | | | Electronically signed: 02/07/2017 2:54 PM | | + + + + +---------+ + + | Performing | Address | City/State/Zipcode | Phone Number | | Organization | | | | + +---------+ + + | [facility] | | | | + +---------+ + + documented in this encounter Visit Diagnoses + + | Diagnosis | + + | Osteoarthritis, unspecified osteoarthritis type, unspecified site | + + documented in this encounter"
--- OUTSIDE RECORDS SUMMARY | ~2020-06-16 | XMS | Encounter Summary ---
Demographics + + + | Address | [address] | | | [place] [address] | + + + | Home Phone | | + + + | Preferred Language | Unknown | + + + | Marital Status | | + + + | Anglican Affiliation | Unknown | + + + [...] [place], | | | | | [place] [address] | | + + + + + Care Team Providers + +------+ + | Care Website/Blog Editor Name | Role | Phone | + +------+ + | Dimitri Fischer MD | PCP | | + +------+ + Encounter Details +--------+ + + + + | Date | Type | Department | Care Team | Description | +--------+ + + + + | 07/16/ | Orders Only | [facility] | Marty Wood | Right knee pain, | | 2017 | | ORTHOPEDIC SURGERY | MD Gosia [address] | unspecified | | | | [address] | [place] | chronicity (Primary | | | | [place] | [id number] | Dx) | | | | [address] | | | | | | [phone] | | | +--------+ + + + [...] | Diagnosis | + + | Right knee pain, unspecified chronicity - Primary | + + documented in this encounter"
--- OUTSIDE RECORDS SUMMARY | ~2020-06-16 | XMS | Encounter Summary ---
Demographics + + + | Address | [address] [facility] | | | [place] [address] | + + + | Home Phone | | + + + | Preferred Language | Unknown | + + + | Marital Status | | + + + | Islam Affiliation | Unknown | + + + | Race | White | + + + | Ethnic Group | Not or | + + + Author + + + | Author | [facility] | | | and [place] | + + + | Organization | [facility] | | | [...] [place], | | | | | [place] [address] | | + + + + + Care Team Providers + +------+ + | Care Typewriter Repairer Name | Role | Phone | [...] Therapy / | | Marty Elise, | Rita Brennan [facility] | | | Required | Rehabilitatio | Osteoarthros | MD [address] | [facility] [address] | | | | n | is, | [address] | [address] | | | | | unspecified | [place], | [place], | | | | | whether | [place] [address] | [place] [address] | | | | | generalized | Phone: | Phone: | | | | | or | [phone] | [phone] | | | | | localized, | Fax: | Fax: | | | | | lower leg | [phone] | [phone] | | | | | S/P | [...] Description | +--------+---------+ + + + | 02/03/ | Office | [facility] | Marty Wood | Knee pain, right | | 2014 | Visit | [facility] | L, [address] [facility] | (Primary Dx) | | | | [address] | [place] | | | | | [place] [address] | [address] | | | | | [phone] | | | | | | | Amadeo Leon, | | | | | | PT [address] | | | | | | [place] | | | | | | [address] | | | | | | | [...] encounter Progress Notes Amadeo Leon, PT - 02/03/2015 4:40 PM PDTFormatting of this note might be differen t from the original. Physical Therapy Plan of Care Date: 02/03/2015 Patient Name: Cecilio Arias Date of : 1970 Encounter Diagnoses Code Name Primary? 719.46 Knee pain, right Yes Date of Onset: 12/05/14 Start of Care Date: 02/03/15 Clinical Impression: Patient presents to physical therapy with R knee pain S/P arthroscopy . He presents with significant fear avoidance to movement of his knee and his back. Objectiv e exam reveals impairments with pain, ROM, strength, poor pain perception. Signs and sympto ms are consistent with knee pain s/p surgery with significant fear avoidance. These impairme nts and diagnoses are causing functional limitations with walking, standing, getting Up and down from a chair, bending and lifting. This patient would benefit from aquatic therapy to help reach their functional goals. The warm water will improve exercise tolerance, and prom ote relaxation. The turbulence of the water on the skin overloads the peripheral nerves caus ing the brain to ignore pain signals similar to a TENS unit. It also will provide gentle re sistance initially and allow progressive increases in exercise activity with less pain. Com plexities contributing to frequency and duration of therapy: testosterone deficiency, DM, se izure dissorder, osteoporosis, emphysema. OP PT Goals OP PT Goals: Goal 1, Goal 2, Goal 3 Goal 1: Decrease pain from 8 /10 to 4/10 at worst to improve ability to complete standing a nd walking. Goal 2: Independent home exercise program to facilitate independent symptom management. Goal 2 Status: pt prescribed initial HEP today. Goal 3: Demonstrate normal knee ROM/mechanics allowing for navigation of stairs with recipr ocal stepping and transfer from sit<>stand without compensation. Goal 3 Status: pt ambulates up and down stairs with good going up and bad going down techni que. Treatment Plan/Interventions: 81074 PT Evaluation, 44407 Gait Training, 06330 Therapeutic Exercise, 34991 Therapeutic Act ivity, 02779 Neuromuscular Re-education, 11999 Self Care/Home Management, 66581 Manual Thera py, 78243 Electrical Stimulation - Unattended, Hot Pack, Cold Pack, 38992 Aquatic Therapy/Ex ercises, 30372 Vasopneumatic Therapy Requested # of Visits: 2x/wk for 12 weeks Certification From: 02/03/15 Certification To: 05/04/15 Amadeo Leon, PT Patient Name: Cecilio Arias/: 1970/ Donny Viera, PT - 02/03/2015 12:45 PM PDTFormatting of this note might be different from the origin al. [facility] [address] [place] [address] Physical Therapy Initial Assessment Date: 02/03/2015 Patient Information Patient Name: Cecilio Arias Date of : 1970 Age: 44 y.o. History Encounter Diagnoses Code Name Primary? 719.46 Knee pain, right Yes Date of Onset: 12/05/14 Referring Provider: Marty Wood MD Past Medical History Diagnosis Date Emphysema of lung (HCC) Osteoporosis Seizure (HCC) Diabetes mellitus (HCC) GERD (gastroesophageal reflux disease) Vitamin D deficiency Testosterone deficiency Elevated cholesterol Immune deficiency disorder (HCC) Lab results placed in chart regarding KYA180 Phenotype. Past Surgical History Procedure Laterality Date Knee arthroscopy Right 12/05/2014 Procedure: Right Knee Arthroscopy with Partial Medial Menisectomy and Medial- Femoral Cho ndroplasty; Surgeon: Marty Wood MD; Location: [facility] MAIN OR Allergies Allergen Reactions Azithromycin Anaphylaxis Codeine Hives Sulfa Antibiotics Hives Rehab Precautions Office Visit from 02/03/2015 in [facility] Rehab Precautions Precautions None Precautions Comments pt has high degree of fear avoidance. Learning Style Patient's Optimum Learning Style: listening, reading, performance of task, observation Abuse Assessment Do you feel safe in your current relationship or home?: Yes Action taken by clinician: No concerns Pain Assessment Pain Rating Pre Assessment: 8 Location: right knee medial lateral and peripatellar. KNEE EVALUATION: SUBJECTIVE: History of Presenting Problem: Cecilio Arias is a 44 y.o. male who presents to therapy with right knee pain that began when he fell through a collapsed do or frame at a previous apartment he lived at in 04/25/13. He then had surgery to repair his me dial meniscus, a chondroplasty of the medial femoral condyle. He states his knee continues t o hurt a great deal and that he has been using a walker for most of his walking up until the last few days. Functional Limitations: pain with standing, walking, sitting Previous Level of Function: chronic knee pain since his incident in 2012 Prior and/or Concurrent treatment: surgical intervention Living Situation / Home Environment: lives in an apartment Occupation/Work Duties: disabled Patient s Goals: to return to walking without knee pain OBJECTIVE: Resting Vitals: BP: 139/95 HR: 93 O2: 96 Observation/Posture/Alignment: fwd head, does not bear much weight on R LE in standing. Issa ps knee in flexion Gait: Decreased weight bearing on R LE, keeps knee in flexion t/o swing and weight bearing. Functional Movements: Initial Assessment Progress Note / Discharge Sit<>Stand: antalgic Sit<>Supine: antalgic Double Leg Squat: Unable, pt refused to Single Leg Squat: L= NT R= NT Toe Walking: Unable Heel Walking: unable ROM: Initial Assessment Initial Assessment Progress Note / Discharge Progress Note / Discha rge Left Right Left Right Hip 100 100 Knee: 0-130 17-0-120 Patellar Mobility hypomobile hypomobile Ankle: WNL WNL 90/90 Hamstring: Severe tightness Severe tightness SLR: 55 Pt would no allow knee to be straight for test Strength Testing: Initial Assessment Initial Assessment Progress Note / Discharge Progress Note / Discharge Lumbo-Pelvic Stabilization: poor Left Right Left Right Iliopsoas: 4 3+ Glut Med: 4 3+ Glut Max: 4 3+ Deep Hip Rotators: NT NT Quadriceps: 4 3+ Hamstrings: 4 3+ Palpation: TTP surrounding left knee in all regions, Neurovascular: intact Special Tests: Initial Assessment Initial Assessment Progress Note / Discharge Progress Not e / Discharge Left Right Left Right Ligamentous: NT NT Brendan's: NT NT Thesely's: NT NT Step Down: NT NT Dimitri: positive positive Obers: NT NT Joint Line Circumference: eqaul from righ to left equal Outcome Measure: Initial Assessment Progress Note / Discharge LEFS: (A score of 0 = Complete Functional Disability of LE) RICHIE-Q 68/96 Outcome Measure: Lower Extremity Functional Scale (LEFS) Any of your usual work, housework or school activities: 1 - Quite a bit of difficulty Your usual hobbies, recreational or sporting activities: 1 - Quite a bit of difficulty Getting into or out of the bath: 2 - Moderate difficulty Walking between rooms: 2 - Moderate difficulty Putting on your shoes or socks: 1 - Quite a bit of difficulty Squattin - Quite a bit of difficulty Lifting an object, like a bag of groceries from the floor: 1 - Quite a bit of difficulty Performing light activities around your home: 1 - Quite a bit of difficulty Performing heavy activities around your home: 1 - Quite a bit of difficulty Getting into or out of a car: 0 - Extreme difficulty or unable to perform activity Walking 2 blocks: 0 - Extreme difficulty or unable to perform activity Walking a mile: 0 - Extreme difficulty or unable to perform activity Going up or down 10 stairs (about 1 flight of stairs): 1 - Quite a bit of difficulty Standing for 1 hour: 0 - Extreme difficulty or unable to perform activity Sitting for 1 hour: 1 - Quite a bit of difficulty Running on even ground: 0 - Extreme difficulty or unable to perform activity Running on uneven ground: 0 - Extreme difficulty or unable to perform activity Making sharp turns while running fast: 0 - Extreme difficulty or unable to perform activity Hoppin - Extreme difficulty or unable to perform activity Rolling over in bed: 1 - Quite a bit of difficulty Lower Extremity Functional Scale Score (Calculated): 14 ASSESSMENT: Clinical Impression: Patient presents to physical therapy with R knee pain S/P arthroscopy. He presents with significant fear avoidance to movement of his knee and his back. Objective exam reveals impairments with pain, ROM, strength, poor pain perception. Signs and symptom s are consistent with knee pain s/p surgery with significant fear avoidance. These impairmen ts and diagnoses are causing functional limitations with walking, standing, getting Up and down from a chair, bending and lifting. This patient would benefit from aquatic therapy to h elp reach their functional goals. The warm water will improve exercise tolerance, and promo te relaxation. The turbulence of the water on the skin overloads the peripheral nerves causi ng the brain to ignore pain signals similar to a TENS unit. It also will provide gentle res istance initially and allow progressive increases in exercise activity with less pain. Comp lexities contributing to frequency and duration of therapy: testosterone deficiency, DM, sei zure dissorder, osteoporosis, emphysema. Functional Limitation Reporting G Code Severity Modifier Current Status G8978 Mobility walking and moving around functional limitation, current sta tus, at therapy episode outset and at reporting intervals CL At least 60 percent but less th an 80 percent impaired, limited or restricted Goal G8979 Mobility walking and moving around functional limitation, projected goal status CJ At least 20 percent but less than 40 percent impaired, limited or restricted Based upon pain level of 8/10 and LEFS of 14/80. With physical therapy interventions, thi s patient is expected to achieve the goal G-code stated above. Rehabilitation potential: Patient demonstrates fair potential to achieve established goals and fair potential to achieve prior status to address the above documented impairments and a chieve the following functional goals by participating in skilled physical therapy services. THERAPY GOALS: OP PT Goals OP PT Goals: Goal 1, Goal 2, Goal 3 Goal 1: Decrease pain from 8 /10 to 4/10 at worst to improve ability to complete standing a nd walking. Goal 2: Independent home exercise program to facilitate independent symptom management. Goal 2 Status: pt prescribed initial HEP today. Goal 3: Demonstrate normal knee ROM/mechanics allowing for navigation of stairs with recipr ocal stepping and transfer from sit<>stand without compensation. Goal 3 Status: pt ambulates up and down stairs with good going up and bad going down techni que. PLAN: Requested # of Visits: 2x/wk for 12 weeks Certification From: 02/03/15 Certification To: 05/04/15 Start of Care Date: 02/03/15 Treatment Plan/Interventions 72074 PT Evaluation, 39794 Gait Training, 34640 Therapeutic Exercise, 49080 Therapeutic Act ivity, 78813 Neuromuscular Re-education, 13862 Self Care/Home Management, 89997 Manual Thera py, 63083 Electrical Stimulation - Unattended, Hot Pack, Cold Pack, 08422 Aquatic Therapy/Ex ercises, 54191 Vasopneumatic Therapy Patient and/or family has indicated understanding of treatment needs and actively participa naina in the creation of this plan for care. Today's Treatment Start Time: 1000 Stop time: 1100 Duration: 60 minutes Timed Treatment Codes: 30 minutes # of PT Visits: 1 Objective: Education of rehab timeline, focus and expectations. Education of pain modulation with use of ice/MHP, positioning, pacing and movement strategies. Manual Therapy: none Exercise/Activity 02/03/15 Quad set 1x15 SAQ 1x15 Heel slide [id number] Modalities: none Next Visit: begin aquatic therapy. Continue to work on pain education to reduce his fear av oidance to using his right knee. Electronically signed by: Amadeo Leon PT, 02/03/2015 16:39 Patient Name: Cecilio Zimmerman [place]/: 1970/ documented in th is encounter Plan of Treatment + + +--------+ [...]
--- OUTSIDE RECORDS SUMMARY | ~2020-06-16 | XMS | Encounter Summary ---
Demographics + + + | Address | [address] [facility] [facility] [address] | | | [place] [address] | + + + | Home Phone | | + + + | Preferred Language | Unknown | + + + | Marital Status | | + + + | Rastafari Affiliation | Unknown | + + + | Race | White | + + + | Ethnic Group | Not or | + + + Author + + + | Author | [facility] | | | and [place] | + + + | Organization | [facility] | | | [...] [place], | | | | | [place] [address] | | + + + + + Care Team Providers + +------+ + | Care Calculator Operator Name | Role | Phone | [...] medial | MD [address] | | | | | meniscus, | [address] | [place], | | | | | current | [place], | [place] [address] | | | | | injury, | [place] | Phone: | | | | | right knee, | [address] | [phone] | | | | | initial | Phone: | Fax: | | | | | encounter | [phone] | [phone] | | | | | Pain in | Fax: | | | | | | right knee | [phone] | | | | | | Other [...] | | | | | | | [place] | | | | | | | CEFTRIAXONE | | | | | | | SODIUM | | | | | | | INJECTION, | | | | | | | 250 MG [place] | | | | | | | [...] + + | 12/01/ | Hospital | [facility] | Amadeo Saab | Chronic | | 2019 | Encounter | MED CTR OP INFUSION | [address] | osteomyelitis of toe | | | | [address] | [address] [place] | of right foot (HCC) | | | | [place] | [place] [address] | | | | | [address] | [phone] | | | | | [phone] | | | +--------+ + + + [...] + + + | Blood Pressure | 119/66 | 12/01/2018 6:56 PM | | | | | PDT | | + + + + + | Pulse | 93 | 12/01/2018 6:56 PM | | | | | PDT | | + + + + + | Temperature | 36.7 C (98.1 F) | 12/01/2018 6:21 PM | | | | | PDT | | + + + + + | Respiratory Rate | 16 | 12/01/2018 6:56 PM | | | | | PDT | | + + + + + | Oxygen Saturation | 99% | 12/01/2018 6:56 PM | | | | | PDT [...] encounter Progress Notes Henrietta Funk RN - 12/01/2018 6:58 PM PDTFormatting of this note might be diffe rent from the original. Vitals: 12/01/18 1821 12/01/18 1856 BP: 121/55 119/66 Pulse: 97 93 Resp: 16 16 Temp: 36.7 C (98.1 F) TempSrc: Oral SpO2: 99% 99% Administrations This Visit cefTRIAXone (ROCEPHIN) 2 g in sodium chloride 0.9% 50 mL IVPB Admin Date 12/01/2018 Action New Bag Dose 2 g Rate 100 mL/hr Route Intravenous Administered By Henrietta Funk RN Monitored throughout treatment; treatment completed without untoward effects from medicatio n noted. Next visit tomorrow at 1100. Verbalizes understanding of plan of care. VS stable. D ischarged ambulatory to home in stable condition. Electronically signed by: Henrietta Funk RN 12/01/2018 18:58 Henrietta Keating RN - 019 6:27 PM PDT Vitals: 12/01/18 1821 BP: 121/55 Pulse: 97 Resp: 16 Temp: 36.7 C (98.1 F) Cecilio Arias received into room 442, independent ambulation accompanied by spous e. States here for rocephin infusion. Reports no change in condition, plan of care since nancie thomas MD visit. Alert, oriented x 4, cooperative. Discussed importance of coming at the same ti me each day to maintain blood level of antibiotic to maximize therapeutic effects. Thinks th is may be a challenge for him but states will be here tomorrow at 1100am. Electronically signed by: Henrietta Funk RN 12/01/2018 18:27 documented in this encounter Plan of Treatment [...] 2 g in | New Bag | 12/02/19 | 2 g | 100 | | | sodium chloride 0.9% 50 mL IVPB | | 19 6:25 | | mL/hr | | | 2 g, Intravenous, Administer over | | PM PDT | | | | | 30 Minutes, ONCE, 12/01/18 at | | | | | | | 1820, For 1 dose, Keep in | | [...]
--- OUTSIDE RECORDS SUMMARY | ~2020-06-16 | XMS | Encounter Summary ---
Demographics + + + | Address | [address] [facility] | | | [place] [address] | + + + | Home Phone [...] [place], | | | | | [place] [address] | | + + + + + Care Team Providers + +------+ + | Care Records Associate Name | Role | Phone | [...] Osteomyeliti | MD [address] | | | | | s, | [address] | [place], | | | | | Rocephin,IV, | [place], | [place] [address] | | | | | or IM 2G | [place] | Phone: | | | | | daily X42 | [address] | [phone] | | | | | days | Phone: | Fax: | | | | | Procedures | [phone] | [phone] | | | | | [place] | Fax: | | | | | | CEFTRIAXONE | [phone] | | | | | | SODIUM | | | | | | | INJECTION, | | | | | | | 250 MG [place] | | | | | | | [...] | +--------+ + + + + | 12/04/ | Hospital | [facility] | Omega [place], | Chronic | | 2019 | Encounter | MED CTR OP INFUSION | MD [address] | osteomyelitis of toe | | | | [address] | [place] | of right foot (HCC) | | | | [place], [place] | [address] | | | | | [address] | [phone] | | | | | [phone] | | | +--------+ + + + [...] + + + | Blood Pressure | 134/61 | 12/04/2018 12:49 PM | | | | | PDT | | + + + + + | Pulse | 102 | 12/04/2018 12:49 PM | | | | | PDT | | + + + + + | Temperature | 36.9 C (98.4 F) | 12/04/2018 12:00 PM | | | | | PDT | | + + + + + | Respiratory Rate | 16 | 12/04/2018 12:49 PM | | | | | PDT | | + + + + + | Oxygen Saturation | 97% | 12/04/2018 12:49 PM | | | | | PDT [...] encounter Progress Notes Katiana Frankel RN - 12/04/2018 1:03 PM PDT Vitals: 12/04/18 1200 12/04/18 1249 BP: 143/71 134/61 Pulse: 107 102 Resp: 18 16 Temp: 36.9 C (98.4 F) TempSrc: Oral SpO2: 98% 97% Administrations This Visit cefTRIAXone (ROCEPHIN) 2 g in sodium chloride 0.9% 50 mL IVPB Admin Date 12/04/2018 Action New Bag Dose 2 g Rate 100 mL/hr Route Intravenous Administered By Katiana Frankel RN Monitored throughout treatment; treatment completed without untoward effects from medicatio n noted. Next visit tomorrow am. Verbalizes understanding of plan of care. VS stable. Discha rged ambulatory to home in stable condition. Electronically signed by: Katiana Frankel RN 12/04/2018 13:03 ason, Katiana Nicole RN - 0 12/04/2018 12:13 PM PDT Vitals: 12/04/18 1200 Pulse: 107 Resp: 18 Temp: 36.9 C (98.4 F) Cecilio Arias received into room 440, independent ambulation accompanied by his S .O.. States here for Rocephin infusion. Reports no change in condition, plan of care since diego johnson MD visit. Alert, oriented x 4, cooperative. Electronically signed by: Katiana Frankel RN 12/04/2018 12:13 documented in this enc ounter Plan of [...] 2 g in | New Bag | 12/05/19 | 2 g | 100 | | | sodium chloride 0.9% 50 mL IVPB | | 19 12:17 | | mL/hr | | | 2 g, Intravenous, Administer over | | PM PDT | | | | | 30 Minutes, ONCE, 12/04/18 at | | | | | | [...]
--- OUTSIDE RECORDS SUMMARY | ~2020-06-16 | XMS | Encounter Summary ---
Demographics + + + | Address | [address] [facility] | | | [place] [address] | + + + | Home Phone | | + + + | Preferred Language | Unknown | + + + | Marital Status | | + + + | Mormon Affiliation | Unknown | + + + | Race | White | + + + | Ethnic Group | Not or | + + + Author + + + | Author | [facility] | | | and [place] | + + + | Organization | [facility] | | | [...] [place], | | | | | [place] [address] | | + + + + + Care Team Providers + +------+ + | Care Adult Literacy Teacher Name | Role | Phone | + +------+ + PCP | Unavailable | + +------+ + Encounter Details +--------+ + + + + | Date | Type | Department | Care Team | Description | +--------+ + + + + | 08/17/ | Orders Only | [facility] [place] | Marty Wood | Right knee pain | | 2013 | | ORTHOPEDIC SURGERY | MD Gosia [address] | (Primary Dx) | | | | [address] | [place] | | | | | [place] | [address] | | | | | [address] | | | | | | [phone] | | | +--------+ + + + [...] as of this encounter Results XR Knee Right 4 + Vw (08/22/2014 11:13 AM [facility]) + + | Specimen | + + | | + + + + + | Narrative | Performed At | + + + | XR KNEE RIGHT 4 + VW 08/22/2014 11:13 AM HISTORY: knee pain. | [facility] | | COMPARISON: None. FINDINGS: The right knee shows no acute | LAB | | findings. Mild spurring is present of the inferior patella. Joint | | | spaces are preserved. Bone mineralization is normal. There is no | | | significant effusion. Soft tissues are unremarkable. Incidental | | | evaluation of the left knee demonstrates no acute findings. | | | IMPRESSION - No acute findings, early degenerative changes of right | | | knee. Dictated and Signed by: Kyle Peoples MD Electronically | | | signed: 08/22/2014 1:00 PM | | + + + + + | Procedure Note | + + | Kiko, Rad Results In - 08/22/2014 1:03 PM PST XR KNEE RIGHT 4 + VW 08/22/2014 11:13 AM | | | | HISTORY: knee pain. | | | | COMPARISON: None. | | | | FINDINGS: | | The right knee shows no acute findings. Mild spurring is present of the inferior | | patella. Joint spaces are preserved. Bone mineralization is normal. There is no | | significant effusion. Soft tissues are unremarkable. | | | | Incidental evaluation of the left knee demonstrates no acute findings. | | | | IMPRESSION - | | No acute findings, early degenerative changes of right knee. | | | | Dictated and Signed by: Kyle Peoples MD | | Electronically signed: 08/22/2014 1:00 PM | + + + +---------+ + + | Performing | Address | City/State/Zipcode | Phone Number | | Organization | | | | + +---------+ + + | [facility] | | | [phone] | + +---------+ + + | [facility] | | | [phone] | + +---------+ + + documented in this encounter Visit Diagnoses + + | Diagnosis | + + | Right knee pain - Primary Pain in joint, lower leg | + + documented in this encounter"
--- OUTSIDE RECORDS SUMMARY | ~2020-06-16 | XMS | Encounter Summary ---
Demographics + + + | Address | [address] [facility] | | | [place] [address] | + + + | Home Phone | | + + + | Preferred Language | Unknown | + + + | Marital Status | | + + + | Pentecostalism Affiliation | Unknown | + + + | Race | White | + + + | Ethnic Group | Not or | + + + Author + + + | Author | [facility] | | | and [place] | + + + | Organization | [facility] | | | and [place] | + + + | Address | Unknown | + + + | Phone | Unavailable | + + + Support + + + + + | Name | Relationship | Address | Phone | + + + + + | Tasah Valencia | ECON | [address] | | | | | [place], | | | | | [place] [address] | | + + + + + Care Team Providers + +------+ + | Care Injection Specialist Name | Role | Phone | + +------+ + | Russell Sanabria MD | PCP | | + +------+ + Reason for Visit +---------+ + | Reason | Comments | +---------+ + | Post Op | Right great toe superificial bone biopsy. DOS 11/07/2018 | +---------+ + Encounter Details +--------+---------+ + + + | Date | Type | Department | Care Team | Description | +--------+---------+ + + + | 11/19/ | Office | [facility] | Jose Nash | Osteomyelitis of | | 2019 | Visit | ORTHOPEDIC SURGERY | MD [address] | ankle or foot, | | | | [address] | [facility] | acute, right (HCC) | | | | [address] | [place] [id number] | (Primary Dx) | | | | [address] | [phone] | | | | | [phone] | | | +--------+---------+ + + + [...] + + + + | Temperature | - | - | | + + + + + | Respiratory Rate | - | - | | + + + + + | Oxygen Saturation | - | - | | + + + + + | Inhaled Oxygen | - | - | | | Concentration | | | | + + + + + | Weight | 92.5 kg (204 lb) | 11/19/2018 4:26 PM | | | | | PST | | + + + + + | Height | 182.9 cm (6') | 11/19/2018 4:26 PM | | | | | PST | | + + + + + | Body Mass Index | 27.67 | 11/19/2018 4:26 PM | | | | | PST | | + + + + + documented in this encounter Patient Instructions Patient Instructions Jose Nash MD - 11/19/2018 6:33 PM PST Diabetes: Inspecting Your Feet Diabetes increases your chances of developing foot problems. So inspect your feet every day . This helps you find small skin irritations before they become serious ulcers or infections . If you have trouble seeing the bottoms of your feet, use a mirror or ask a family member o r friend to help. How to check your feet Below are tips to help you look for foot problems. Try to check your feet at the same time each day, such as when you get out of bed in the morning: Check the top of each foot. The tops of toes, back of the heel, and outer edge of the fo ot can get a lot of rubbing from poor-fitting shoes. Check the bottom of each foot. Daily wear and tear often leads to problems at pressure s pots. Check the toes and nails. Fungal infections often occur between toes. Toenail problems c an also be a sign of fungal infections or lead to breaks in the skin. Check your shoes, too. Loose objects inside a shoe can injure the foot. Use your hand to feel inside your shoes for things like roselyn, loose stitching, or rough areas that could irritate your skin. Warning signs Look for any color changes in the foot. Redness with streaks can signal a severe infection, which needs immediate medical attention. Tell your healthcare provider right away if you curry ve any of these problems: Swelling, sometimes with color changes, may be a sign of poor blood flow or infection. S ymptoms include tenderness and an increase in the size of your foot. Warm or hot areas on your feet may be signs of infection. A foot that is cold may not be getting enough blood. Sensationssuch as burning, tingling, or pins and needles can be signs of a probl em. Also check for areas that may be numb. Hot spotsare caused by friction or pressure. Look for hot spots in areas that get a lo t of rubbing. Hot spots can turn into blisters, calluses, or sores. Cracks and soresare caused by dry or irritated skin. They are a sign that the skin is breaking down, which can lead to infection. Toenail problemsto watch for include nails growing into the skin (ingrown toenail) and causing redness or pain. Thick, yellow, or discolored nails can signal a fungal infection. Drainage and odorcan develop from untreated sores and ulcers. Call your healthcare pro vider right away if you notice white or yellow drainage, bleeding, or unpleasant odor. Date Last Reviewed: 02/21/[id number] [employer]. [address] [place] [address]. All [facility] ts reserved. This information is not intended as a substitute for professional medical care. Always follow your healthcare professional's instructions. documented in this encounter Progress Notes Jose Nash MD - 11/19/2018 4:30 PM PSTFormatting of this note might be dif ferent from the original. [facility] RETURN CLINIC VISIT Pt. Name/Age/: Cecilio Arias 48 y.o. 1970 Primary Care Physician: Russell Sanabria Chief Complaint/Reason for Visit: Post Op (Right great toe superificial bone biopsy. DOS 11/07/2018) History of Present Illness: The patient is a pleasant 48 y.o. male who presents for a repeat visit for his right great toe osteomyelitis. He has known osteomyelitis in the distal phalanx. I did a bone biopsy w meka he was in the hospital. Unfortunately, while the patient was in the hospital, the PICC team did not feel comfortable placing a PICC line in him. He was discharged on oral clinda mycin. He has been taking that since the time of his discharge. He has not been getting IV antibiotics. He is also complaining of pain in his foot. He asked if I could prescribe methadone to him . I informed him that that is not something that we prescribe out of this clinic. Past Medical History: Past Medical History: Diagnosis Date Adverse effect of anesthesia Slow to wake up Diabetes mellitus ([facility]) Diabetes mellitus type II, ORAL Control 10/28/2011 Elevated cholesterol Elevated hemoglobin A1c 11/07/2018 12.9 - 07/2018 12.3 - 11/2016 Emphysema of lung ([facility]) GERD (gastroesophageal reflux disease) Immune deficiency disorder ([facility]) Lab results placed in chart regarding [id number] Phenotype. Osteoporosis PONV (postoperative nausea and vomiting) Seizure ([facility]) Testosterone deficiency Vitamin D deficiency Past Surgical History: Procedure Laterality Date CARPAL TUNNEL RELEASE Left 05/14/2017 Procedure: Left Elbow Joint Exploration and Bilateral Shoulder Injection; Surgeon: Nirmal Wood MD; Location: [facility] MAIN OR ELBOW SURGERY Left 11/15/2015 Procedure: Left Lateral Epicondylar Release & Injection of Left Elbow Joint ; Surgeon: Janet Wood MD; Location: [facility] MA[facility] OR INCISION AND DRAINAGE Right 11/07/2018 Procedure: right great toe superfical bone biopsy; Surgeon: Jose Nash MD; Location: [facility] MA[facility] OR KNEE ARTHROSCOPY Right 12/05/2014 Procedure: Right Knee Arthroscopy with Partial Medial Menisectomy and Medial- Femoral Tay droplasty; Surgeon: Marty Wood MD; Location: [facility] MA[facility] OR KNEE ARTHROSCOPY Right 02/11/2018 Procedure: Right Knee Arthroscopy & bilateral Elbow Injections, Lateral Tibial Chondroplas ty, Medial Femoral Chondroplasty, Partial medial meniscectomy; Surgeon: Marty Wood MD; Location: [facility] MAIN OR MANDIBLE SURGERY spinal cord injury Allergies: Allergies Allergen Reactions Azithromycin Anaphylaxis Codeine Hives Hydrocodone Hives Sulfa Antibiotics Hives Current Medications: Current Outpatient Prescriptions Medication Sig Dispense Refill amphetamine-dextroamphetamine (ADDERALL XR) 30 MG 24 hr capsule take 1 capsule by mouth once daily 0 atorvaSTATin (LIPITOR) 40 mg tablet Take 40 mg by mouth Daily. cephalexin (KEFLEX) 500 mg capsule Take 1 capsule by mouth 4 times daily for 28 days. 1 12 capsule 0 clindamycin (CLEOCIN) 300 MG capsule Take 1 capsule by mouth 3 times daily for 14 days. Follow up with Dr Ruiz 11/17/2018 1:15pm 42 capsule 0 clindamycin (CLEOCIN) 300 MG capsule Take 1 capsule by mouth 3 times daily for 28 days. 84 capsule 0 cyclobenzaprine (FLEXERIL) 10 mg tablet 1 tablet orally 3 times per day 90 tablet 2 dapagliflozin (FARXIGA) 10 mg tablet Take 1 tablet by mouth every morning. 30 tablet 0 empagliflozin (JARDIANCE) 10 mg tablet Take 1 tablet by mouth Daily. Start when you run out of insulin 30 tablet 0 ergocalciferol (VITAMIN D-2) 50,000 units capsule Take 50,000 Units by mouth Once a wee k. On gabapentin (NEURONTIN) 600 MG tablet take 1 tablet by mouth three times a day 0 glucose blood test strips (TERRI CONTOUR TEST) strip Use as dir 100 each 0 insulin glargine (LANTUS SOLOSTAR) 100 units/mL injection (pen) Inject 54 Units under t he skin 2 times daily. lidocaine (LIDODERM) 5% patch Place 2 patches onto the skin Daily. Apply for 12 hours, then remove for 12 hours. 30 patch 0 lisinopril (PRINIVIL, ZESTRIL) 10 mg tablet Take 10 mg by mouth Daily. 0 metFORMIN (GLUCOPHAGE) 500 mg tablet Take 2 tablets by mouth 2 times daily. 60 tablet 0 methadone 10 mg tablet Take 4 tablets by mouth every 8 hours for 8 days. 96 tablet 0 omeprazole (PRILOSEC) 20 mg capsule Take 20 mg by mouth every morning (before breakfast ). oxyCODONE (ROXICODONE) 30 MG immediate release tablet Take 30 mg by mouth 5 times daily as needed for Pain. pregabalin (LYRICA) 100 mg capsule Take 1 capsule by mouth 2 times daily. 90 capsule 1 SENNA LAX 8.6 MG tablet take 4 tablets by mouth UP TO 2 TIMES A DAY NEEDED FOR CONST IPATION 0 tamsulosin (FLOMAX) 0.4 mg CAPS Take 0.4 mg by mouth daily (after breakfast). 0 trolamine salicylate (ASPERCREME) 10% cream leg 170 g 0 VENTOLIN HFA 108 (90 Base) MCG/ACT inhaler 0 No current facility-administered medications for this visit. Family History: History reviewed. No pertinent family [...] Yes Frequency: 7.0 times per week Types: Marijuana, Methamphetamines Sexual activity: Not on file Other Topics Concern Not on file Social History Narrative No narrative on file Review of Systems All of these are negative unless otherwise marked Musculoskeletal: [] Physical handicaps [] Back or shoulder pain []Rheumatoid disease [] Osteoarthritis [x] Joint pain [] Joint swelling []Gout [] Leg cramps at night Endocrine: [] Thyroid [x] Diabetes Admission Weight: Weight: 92.5 kg (204 lb) BMI: Body mass index is 27.67 kg/m. Physical Examination: Ht 1.829 m (6') | Wt 92.5 kg (204 lb) | BMI 27.67 kg/m General: Alert, oriented, no acute distress HEENT: Normocephalic, atraumatic Cardiovascular: Regular rate and rhythm Respiratory: Breathing normally at a regular rate Ortho Exam Right foot exam: His wound has healed. His previous suture has fallen out. It was not in place when I saw his toe. He does continue to have some cellulitic type skin changes to the leg. His leg is mildly warm. It does not travel as proximally as it did when I saw him in the hospital. Diagnostic Studies: Imaging Labs- Lab Results Component Value Date NA 137 11/11/2018 K 3.7 11/11/2018 CL 98 11/11/2018 CO2 26 11/11/2018 ANIONGAP 13 11/11/2018 GLU 185 (H) 11/11/2018 BUN 20 (H) 11/11/2018 CREA 1.16 11/11/2018 GFRNONAA >60 11/11/2018 CALCIUM 9.1 11/11/2018 ALBUMIN 3.6 11/07/2018 BILITOT 0.4 11/07/2018 TOTALPROTEIN 6.7 11/07/2018 AST 21 11/07/2018 ALT 21 11/07/2018 ALKPHOS 112 (H) 11/07/2018 WBC 10.3 11/10/2018 HGB 10.0 (L) 11/10/2018 HCT 31.3 (L) 11/10/2018 MCV 88.7 11/10/2018 PLT 276 11/10/2018 ESR 17 (H) 11/07/2018 CRP 4.77 11/07/2018 INR 1.1 09/04/2018 Assessment and Plan: 1. Osteomyelitis of ankle or foot, acute, right (HCC) The patient is a pleasant 48 y.o. male who presents for a repeat visit with right great toe distal phalanx osteomyelitis. Treatment options were discussed with the patient including n on-operative treatment modalities. Considering the nature of the patient's condition, decisi on was made to proceed with prescribing him oral antibiotics. I did give him enough oral an tibiotics to get him through 6 weeks of treatment. Ideally, osteomyelitis would be treated with a PICC line and IV antibiotics. The PICC team did not feel comfortable doing that base d on the patient's behavior in hospital. The patient does not feel like he did anything [place] ppropriate while he was in the hospital. He denies messing with the sharps container. He f eels like he is being punished for being honest about some substance use. He did ask if I t hought he would be more likely to have resolution of his symptoms if he were to go to somewh ere that would give him IV antibiotics. I stated that that would certainly be a possibility . I told him he is more likely to clear his osteomyelitis with IV antibiotics than without them. However, the patient and I discussed in the past the fact that he may very well end u p with a great toe amputation as he has already failed one prior partial treatment. At that point, the patient left the office with his . It seemed like they were likely to go to another hospital to seek treatment. I'm happy to see him back as needed Follow-up: Return if symptoms worsen or fail to improve. with no x-ray Portions of this report were transcribed using voice recognition software. Every effort wa s made to ensure accuracy; however, inadvertent computerized drilling field professional errors may be pre sent. I appreciate the opportunity to help with the management of this patient. Jose Nash MD documented in this encounter Plan of Treatment Not on filedocumented as of this encounter Visit Diagnoses + + | Diagnosis | + + | Osteomyelitis of ankle or foot, acute, right (HCC) - Primary | + + documented in this encounter"
--- OUTSIDE RECORDS SUMMARY | ~2020-06-16 | XMS | Encounter Summary ---
Demographics + + + | Address | [address] | | | [place] [address] | + + + | Home Phone | | + + + | Preferred Language | Unknown | + + + | Marital Status | | + + + | Jain Affiliation | Unknown | + + + | Race | White | + + + | Ethnic Group | Not or | + + + Author + + + | Author | [facility] | | | and [place] | + + + | Organization | [facility] | | [...] [place], | | | | | [place] [address] | | + + + + + Care Team Providers + +------+ + | Care Dancer Or Choreographer Name | Role | Phone | + +------+ + | Russell Sanabria MD | PCP | | + +------+ + Reason for Visit +---------+ + | Reason | Comments | +---------+ + | Post Op | Right great toe superificial bone biopsy (distal phalanx) DOS | | | 11/07/2018 | +---------+ + Encounter Details +--------+---------+ + + + | Date | Type | Department | Care Team | Description | +--------+---------+ + + + | 12/15/ | Office | [facility] | Jose Nash | Chronic | | 2019 | Visit | ORTHOPEDIC SURGERY | MD [address] | osteomyelitis of toe | | | | [address] | [address] | of right foot (HCC) | | | | [place] | [place] [address] | (Primary Dx) | | | | [address] | [phone] | | | | | [phone] | | | +--------+---------+ + + + [...] + + + + | Weight | 104.8 kg (231 lb) | 12/15/2018 11:06 AM | | | | | PDT | | + + + + + | Height | 182.9 cm (6') | 12/15/2018 11:06 AM | | | | | PDT | | + + + + + | Body Mass Index | 31.33 | 12/15/2018 11:06 AM | | | | | PDT [...] Instructions Patient Instructions Jose Nash MD - 12/15/2018 12:54 PM PDTFormatting of t his note might be different from the original. Diabetes: Caring for Your Body When you have diabetes, your body needs special care. This care helps you stay healthy and prevent complications. Exercise and healthy eating are a part of this. You can also protect yourself by taking special care of your feet, skin, and teeth. Caring for your feet Follow these tips to help keep your feet healthy: Check your feet every day for redness, blisters, cracks, dry skin, or numbness. Use a mi rror to inspect the bottoms of your feet, if needed. Or, ask for help. Wash your feet in warm (not hot) water. Don t soak them. Use an emery board to keep your toenails even with the ends of your toes. File away joe p edges. A casing material weigher (foot doctor) may need to cut your toenails for you. Keep your skin soft and smooth by placing a thin layer of skin lotion on the tops and page ttoms of your feet. Do not put lotion in between your toes. Always wear shoes or slippers, even inside your home. Make sure that shoes are properly fitted. Change your socks daily. Call your healthcare provider right away if your feet are numb or painful, or if a cut o r sore doesn t heal within a few days. Preventing skin infections To prevent skin infections, bathe every day. Dry yourself well, especially between your toe s. Wash any cuts with warm, soapy water and cover with a sterile bandage. Call your healthca re provider if a cut or sore doesn't heal in a few days, feels warm, itches, or has a bad od or. Caring for your teeth Follow these guidelines for healthy teeth: [place] your teeth twice daily. Floss your teeth daily. See your dentist at least twice yearly. If you smoke, quit Smoking is dangerous for everyone, especially people with diabetes. It can harm the blood v essels in your eyes, kidneys, and heart. It raises blood pressure. Smoking can also slow hea ling, so infections are more likely. Ask your healthcare provider about programs to help you stop smoking. Date Last Reviewed: 11/21/201519990159-6724 [employer]. [address] [place] [address]. All righ ts reserved. This information is not intended as a substitute for professional medical care. Always follow your healthcare professional's instructions. documented in this encounter Progress Notes Jose Nash MD - 12/15/2018 11:00 AM PDTFormatting of this note might be dif ferent from the original. [facility] RETURN CLINIC VISIT Pt. Name/Age/: Cecilio Arias 48 y.o. 1970 Primary Care Physician: Russell Sanabria Chief Complaint/Reason for Visit: Post Op (Right great toe superificial bone biopsy (distal phalanx) DOS 11/07/2018) History of Present Illness: The patient is a pleasant 48 y.o. male who presents for a repeat visit for chronic osteomye litis of the right great toe distal phalanx. The patient is concerned as he has swelling in both legs at this point. He has bilateral pitting edema. He additionally still has some r edness over his right calf. He currently has no lesions over his leg. He is complaining of pain in his foot and calf. He is currently getting infusion therapy daily with Rocephin. They are using 2 g at a time. This is based off of the cultures obtained via bone biopsy fr 11/07/2018. He reports that he has spoken to Dr. Sanabria who states that I should be managi ng everything regarding his foot. Past Medical History: Past Medical History: Diagnosis Date Adverse effect of anesthesia Slow to wake up Diabetes mellitus ([facility]) Diabetes mellitus type II, ORAL Control 10/28/2011 Elevated cholesterol Elevated hemoglobin A1c 11/07/2018 12.9 - 07/2018 12.3 - 11/2016 Emphysema of lung ([facility]) GERD (gastroesophageal reflux disease) Immune deficiency disorder ([facility]) Lab results placed in chart regarding [id number] Phenotype. Osteoporosis PONV (postoperative nausea and vomiting) Seizure ([facility]) Testosterone deficiency Vitamin D deficiency Past Surgical History: Procedure Laterality Date CARPAL TUNNEL RELEASE Left 05/14/2017 Procedure: Left Elbow Joint Exploration and Bilateral Shoulder Injection; Surgeon: Nirmal Wood MD; Location: [facility] MAIN OR ELBOW SURGERY Left 11/15/2015 Procedure: Left Lateral Epicondylar Release & Injection of Left Elbow Joint ; Surgeon: Janet Wood MD; Location: [facility] MAIN OR INCISION AND DRAINAGE Right 11/07/2018 Procedure: right great toe superfical bone biopsy; Surgeon: Jose Nash MD; Location: [facility] MAIN OR KNEE ARTHROSCOPY Right 12/05/2014 Procedure: Right Knee Arthroscopy with Partial Medial Menisectomy and Medial- Femoral Tay droplasty; Surgeon: Marty Wood MD; Location: [facility] MAIN OR KNEE ARTHROSCOPY Right 02/11/2018 Procedure: Right Knee Arthroscopy & bilateral Elbow Injections, Lateral Tibial Chondroplas ty, Medial Femoral Chondroplasty, Partial medial meniscectomy; Surgeon: Marty Wood MD; Location: [facility] MAIN OR MANDIBLE SURGERY spinal cord injury Allergies: Allergies Allergen Reactions Azithromycin Anaphylaxis Codeine Hives Hydrocodone Hives Sulfa Antibiotics Hives Current Medications: Current Outpatient Prescriptions Medication Sig Dispense Refill amphetamine-dextroamphetamine (ADDERALL XR) 30 MG 24 hr capsule take 1 capsule by mouth once daily 0 atorvaSTATin (LIPITOR) 40 mg tablet Take 40 mg by mouth Daily. Blood Glucose Monitoring Suppl ([employer] CONTOUR MONITOR) w/Device KIT 1 kit by Does not a pply route as needed. 1 kit 0 cefTRIAXone (ROCEPHIN) 2 g in sodium chloride 0.9% 50 mL IVPB Inject 2 g into the vein every 24 hours for 42 days. Indications: Infection of Bone and Bone Marrow 42 each 0 clindamycin (CLEOCIN) 300 MG capsule Take 1 capsule by mouth 3 times daily for 28 days. 84 capsule 0 cyclobenzaprine (FLEXERIL) 10 mg tablet 1 tablet orally 3 times per day 90 tablet 2 dapagliflozin (FARXIGA) 10 mg tablet Take 1 tablet by mouth every morning. 30 tablet 0 doxycycline (MONODOX) 100 mg capsule Take 1 capsule by mouth 2 times daily. 20 capsule 0 ergocalciferol (VITAMIN D-2) 50,000 units capsule Take 50,000 Units by mouth Once a wee k. On gabapentin (NEURONTIN) 600 MG tablet take 1 tablet by mouth three times a day 0 glucose blood test strips ([employer] CONTOUR TEST) strip Use as dir 100 each 0 insulin glargine (LANTUS SOLOSTAR) 100 units/mL injection (pen) Inject 54 Units under t he skin 2 times daily for 30 days. 15 mL 0 insulin lispro (HUMALOG KWIKPEN) 100 units/mL injection (pen) Inject 0-18 Units under t he skin 4 times daily (with meals and nightly). Blood Glucose (BG) < 150: None BG 150-200: DAY: 3 units.NIGHT: 0 units BG 201-250: DAY: 6 units.NIGHT: 3 units BG 251-300: DAY: 9 units.NIGHT: 6 units BG 301-350: DAY: 12 units.NIGHT: 9 units BG 351-400: DAY: 15 units.NIGHT: 12 units BG > 400: DAY: 18 units.NIGHT: 15 units 3 mL 0 lidocaine (LIDODERM) 5% patch Place 2 patches onto the skin Daily. Apply for 12 hours, then remove for 12 hours. 30 patch 0 lisinopril (PRINIVIL, ZESTRIL) 10 mg tablet Take 10 mg by mouth Daily. 0 metFORMIN (GLUCOPHAGE) 500 mg tablet Take 2 tablets by mouth 2 times daily. 60 tablet 0 omeprazole (PRILOSEC) 20 mg capsule Take 20 mg by mouth every morning (before breakfast ). ONE TOUCH ULTRASOFT LANCETS MISC by Does not apply route 3 times daily (before meals). 100 each 0 oxyCODONE (ROXICODONE) 30 MG immediate release [...] No current facility-administered medications for this visit. Facility-Administered Medications Ordered in Other Visits Medication Dose Route Frequency Provider Last Rate Last Dose cefTRIAXone (ROCEPHIN) 2 g in sodium chloride 0.9% 50 mL IVPB 2 g Intravenous Once Cortez Cortes MD 100 mL/hr at 12/15/18 1227 2 g at 12/15/18 1227 Family History: History reviewed. No pertinent family [...] [] Thyroid [x] Diabetes Admission Weight: Weight: 104.8 kg (231 lb) BMI: Body mass index is 31.33 kg/m. Physical Examination: Ht 1.829 m (6') | Wt 104.8 kg (231 lb) | BMI 31.33 kg/m General: Alert, oriented, no acute distress HEENT: Normocephalic, atraumatic Cardiovascular: Regular rate and rhythm Respiratory: Breathing normally at a regular rate Ortho Exam Bilateral lower extremity exam: Sensation intact to light touch in the first dorsal webspace, medial, lateral, dorsal and p lantar foot but he does report some diminished sensation on the top of his right foot. Dorsa lis pedis and posterior tibial pulses 2+. Able to plantarflex, dorsiflex, juanis and invert t he ankle. His previous great toe ulcer continues to heal. He does have erythema about two thirds of the way up his leg over the anterior aspect. He has pitting edema bilaterally. To me, his right lower extremity does not have significantly more swelling than his left. Diagnostic Studies: Imaging No new imaging Labs- Lab Results Component Value Date NA 136 12/07/2018 K 3.9 12/07/2018 CL 95 (L) 12/07/2018 CO2 35 (H) 12/07/2018 ANIONGAP 6 12/07/2018 GLU 390 (H) 12/07/2018 BUN 12 12/07/2018 CREA 1.07 12/07/2018 GFRNONAA >60 12/07/2018 CALCIUM 9.2 12/07/2018 ALBUMIN 3.9 12/07/2018 BILITOT <0.2 (L) 12/07/2018 TOTALPROTEIN 6.0 12/07/2018 AST 25 12/07/2018 ALT 29 12/07/2018 ALKPHOS 134 (H) 12/07/2018 WBC 7.8 12/07/2018 HGB 10.6 (L) 12/07/2018 HCT 33.6 (L) 12/07/2018 MCV 90.3 12/07/2018 PLT 248 12/07/2018 ESR 13 12/07/2018 CRP 4.77 11/07/2018 INR 1.1 09/04/2018 Assessment and Plan: 1. Chronic osteomyelitis of toe of right foot (HCC) The patient is a pleasant 48 y.o. male who presents for a repeat visit with right great toe osteomyelitis. Treatment options were discussed with the patient including non-operative tr eatment modalities. Considering the nature of the patient's condition, decision was made to proceed with continued IV antibiotics with Rocephin at this time. The patient states that maye cox has been told by the PICC team that they would be willing to put a PICC line in him. That was not an opinion that they had in the past. He certainly does seem to have some risk if he receives another PICC line. We will try to confer with them to see if it is actually an option that he has a PICC line. At this time, he is pushing to return to vancomycin rather than using Rocephin because he continues to have some redness and pain. However the toe its elf appears to not have had any significant change in his redness and is no worse than the l ast time I saw him. He was informed by the hospitalist who originally saw him while working with me that the redness may be positional in that it pops up when he is standing. I certa inly think that is a possibility. His swelling is bilateral and I certainly do not think th at any infectious process from his right toe is causing swelling throughout his left lower e xtremity. I discussed this with him. We will see if PICC line is actually a reasonable opt ion though I have my doubts on this. I will see the patient back in 3 weeks. Once again, I had a discussion with the patient that this may be an infection that will not clear until he has surgery to remove his distal phalanx at a minimum. He wished to at leas t finish 6 weeks of IV antibiotics before doing that. This would be the third time we made an attempt at 6 weeks of IV antibiotics. The first 2 attempts were both interrupted. Follow-up: Return in about 3 weeks (around 01/05/2019). with no x-ray Portions of this report were transcribed using voice recognition software. Every effort wa s made to ensure accuracy; however, inadvertent computerized bridge builder errors may be pre sent. I appreciate the opportunity to help with the management of this patient. Jose Nash MD documented in this encounter Plan of Treatment Not on filedocumented as of this encounter Visit Diagnoses + + | Diagnosis | + + | Chronic osteomyelitis of toe of right foot (HCC) - Primary | + + documented in this encounter"
--- OUTSIDE RECORDS SUMMARY | ~2020-06-16 | XMS | Encounter Summary ---
Demographics + + + | Address | [address] | | | [place] [address] | + + + | Home Phone [...] + + + | Author | [facility] | | | and [place] | + + + | Organization | [facility] | | [...] [place], | | | | | [place] [address] | | + + + + + Care Team Providers + +------+ + | Care Shell Molding Roller Blast Operator Name | Role | Phone | [...] Osteomyeliti | MD [address] | | | | | s, | [address] | [place], | | | | | Rocephin,IV, | [place], | [place] [address] | | | | | or IM 2G | [place] | Phone: | | | | | daily X42 | [address] | [phone] | | | | | days | Phone: | Fax: | | | | | Procedures | [phone] | [phone] | | | | | [place] | Fax: | | | | | | CEFTRIAXONE | [phone] | | | | | | SODIUM | | | | | | | INJECTION, | | | | | | | 250 MG AR | | | | | | | [...] | +--------+ + + + + | 12/18/ | Hospital | [facility] | Omega Cortes, | No Show | | 2019 | Encounter | MED CTR OP INFUSION | [address] | | | | | [address] | [place] | | | | | [place] | [address] | | | | | [address] | [phone] | | | | | [phone] | | | +--------+ + + + [...] encounter Progress Notes Estefania Feliz RN - 12/18/2018 12:45 PM PDTPt. Has missed his 3rd appt. For his IVAB. I h ave attempted to contact him on the phone number that we have listed. I left a voicemail, an d said that we are concerned about him. I told him if there was anything that we could do to let us know. documented in this encounter Plan of Treatment Not on filedocumented as of this encounter Visit Diagnoses Not on filedocumented in this encounter"
--- OUTSIDE RECORDS SUMMARY | ~2020-06-16 | XMS | Encounter Summary ---
Demographics + + + | Address | [address] | | | [place] [address] | + + + | Home Phone [...] [place], | | | | | [place] [address] | | + + + + + Care Team Providers + +------+ + | Care Hydrogenation Operator Name | Role | Phone | + +------+ + | Dimitri Fischer MD | PCP | | + +------+ + Reason for Visit + +--------+ + | Reason | Onset | Comments | | | Date | | + +--------+ + | Surgery Appointment | 04/10/ | | | | 2016 | | + +--------+ + Encounter Details +--------+ + + + + | Date | Type | Department | Care Team | Description | +--------+ + + + + | 04/10/ | Telephone | [facility] | Marty Wood | Surgery Appointment | | 2016 | | ORTHOPEDIC SURGERY | MD [address] [facility] | | | | | [address] | [place] | | | | | [place] | [address] | | | | | [address] | | | | | | [phone] | | | +--------+ + + + [...] Encounter - Denia Lopez Medical Assistant - 04/21/2017 3:10 PM PDTPATIENT HAS BEEN SCHEDULED, AND THE OR HAS BEEN CONTACTED. elephone Encounter - Denia Lopez Medical Assista nt - 04/17/2017 8:37 AM PDTContacted patient today on both numbers that are provided. Left messages on both numbers, for patient to call back to schedule his surgery. Electronically s igned by Justo Matthew at 04/17/2017 8:39 AM PDTTelephone Encounter - Denia Law Medical Assistant - 04/14/2017 6:[address] Wood, he is cleared for surgery. Dr. Wood spoke to Dr. Vaughn and stated that he is cleared to proceed with karissa silva. I will contact patient tomorrow to schedule. elephone Encounter - Renata Durbin - 017 8:45 AM PDTPatient called stating patient has been cleared for surgery. Patient would like to move forward as soon as possible. Please call [phone] signed by Renata Durbin at 04/10/2017 8:47 AM PDTdocumented in this encounter Plan of Treatment Not on filedocumented as of this encounter Visit Diagnoses Not on filedocumented in this encounter"
--- OUTSIDE RECORDS SUMMARY | ~2020-06-16 | XMS | Encounter Summary ---
Demographics + + + | Address | [address] | | | [place] [address] | + + + | Home Phone | | + + + | Preferred Language | Unknown | + + + | Marital Status | | + + + | [employer] Affiliation | Unknown | + + + [...] [place], | | | | | [place] [address] | | + + + + + Care Team Providers + +------+ + | Care Slot Attendant Name | Role | Phone | + +------+ + | Dimitri Fischer MD | PCP | | + +------+ + Reason for Visit + + + | Reason | Comments | + + + | Knee Pain | right knee pain | + + + Evaluate & Treat (Routine) +--------+ + + + + + | Status | Reason | Specialty | Diagnoses / | Referred By | Referred To | | | | | Procedures | Contact | Contact | +--------+ + + + + + | Closed | Specialty | Orthopedic | Diagnoses | [place], | [place], | | | Services | Surgery | Unilateral | Stan | Marty Elise MD | | | Required | | primary | Edward | [address] | | | | | osteoarthrit | MD Giuliano | [facility] | | | | | is, right | [address] | [place], [place] | | | | | knee | [facility] | [address] Phone: | | | | | Procedures | [facility] [place] | [phone] | | | | | 05/08>PEND | [address] | Fax: | | | | | PCP REFERRAL | Phone: | [phone] | | | | | | [phone] | | | | | | | Fax: | | | | | | | [phone] | | +--------+ + + + + + Encounter Details +--------+---------+ + + + | Date | Type | Department | Care Team | Description | +--------+---------+ + + + | 07/21/ | Office | [facility] | Stan Espino | Right knee pain, | | 2016 | Visit | ORTHOPEDIC SURGERY | Cody Nobles MD | unspecified | | | | [address] | [address] | chronicity (Primary | | | | [place] | [place] | Dx) | | | | [address] | [address] | | | | | [phone] | | | | | | | Marty Wood | | | | | | MD [place] [address] | | | | | | [place] [...] + + + + | Weight | 99.3 kg (219 lb) | 07/21/2017 1:50 PM | | | | | PDT | | + + + + + | Height | 182.9 cm (6') | 07/21/2017 1:50 PM | | | | | PDT | | + + + + + | Body Mass Index | 29.7 | 07/21/2017 1:50 PM | | | | | PDT | | + + + + + documented in this encounter Progress Notes Marty Wood MD - 07/21/2017 2:00 PM PDTChristopher returns for follow-up of his right knee pain. He had previously undergone a right knee arthroscopy more than 2 and half years ago in November 2014. He states that he initially did well but then developed return of right knee pain due to aggravation of his right knee injury. He now notes pain over the kne e anteriorly and anteromedially. His pain is aggravated by standing and walking. He denies actual instability of his right knee. Exam: examination of the patient's right knee reveals no abnormality to inspection. Outpat ient of the knee reveals distinct tenderness primarily over the medial joint line also along the medial aspect of the patella. The patella appears to be tracking in the midline. Knee ligaments are stable to stress testing. Neurovascular function is intact to the right foot . Imaging: Trace taken of the right knee are reviewed which show minimal early degenerative c hange. No acute changes are seen. Advice: Cecilio has been complaining of recurrent right knee pain for the past year. Barry cox has failed conservative measures including rest, oral anti-inflammatories, and oral pain m edication. It therefore is appropriate to proceed with additional evaluation and we therefo re will obtain an MRI scan of his right knee and we'll see him back in our office following completion of this study. 6:3 7 PM PDTdocumented in this encounter Plan of Treatment Not on filedocumented as of this encounter Visit Diagnoses + + | Diagnosis | + + | Right knee pain, unspecified chronicity - Primary | + + documented in this encounter"
--- OUTSIDE RECORDS SUMMARY | ~2020-06-16 | XMS | Encounter Summary ---
Demographics + + + | Address | [address] | | | [place] [address] | + + + | Home Phone [...] [place], | | | | | [place] [address] | | + + + + + Care Team Providers + +------+ + | Care Skidway Worker Name | Role | Phone | + +------+ + | Russell Sanabria MD | PCP | | + +------+ + Encounter Details +--------+---------+ + + + | Date | Type | Department | Care Team | Description | +--------+---------+ + + + | 05/13/ | Office | [facility] | [facility], | Patient left without | | 2019 | Visit | CARE [address] | Nathan Delacruz MD | being seen (Primary | | | | [place] | [address] | Dx) | | | | [address] | [place] | | | | | [phone] | [address] | | | | | | | | +--------+---------+ + + + Social History + + + +--------+------+ | Tobacco Use | Types | Packs/Day | Years | Date | | | | | Used | | + + + +--------+------+ | Current Every Day | Cigarettes, | 0.25 | 20 | | | Smoker | [...] documented as of this encounter Progress Notes Amrita Kaplan Jo L, Browning Processor - 05/13/2019 6:15 PM PDTPatient left without being s een, chose to go to ER. Electronically signed by Amrita Kaplan Browning Processor at 6:49 PM PDTdocumented in this encounter Plan of Treatment Not on filedocumented as of this encounter Visit Diagnoses + + | Diagnosis | + + | Patient left without being seen - Primary Surgical or other procedure not carried out | | because of patient's decision | + + documented in this encounter"
--- OUTSIDE RECORDS SUMMARY | ~2020-06-16 | XMS | Encounter Summary ---
Demographics + + + | Address | [address] | | | [place] [address] | + + + | Home Phone [...] + + + | Author | [facility] | | | and [place] | + + + | Organization | [facility] | | [...] [place], | | | | | [place] [address] | | + + + + + Care Team Providers + +------+ + | Care Associate Theatre Professor Name | Role | Phone | + +------+ + | Russell Sanabria MD | PCP | | + +------+ + Reason for Visit + +--------+ + | Reason | Onset | Comments | | | Date | | + +--------+ + | Diabetes Education | 11/29/ | | | | 2020 | | + +--------+ + Encounter Details +--------+ + + + + | Date | Type | Department | Care Team | Description | +--------+ + + + + | 11/29/ | Telephone | [facility] | Heike Stewart, | Diabetes Education | | 2019 | | MED CTR DIABETES | RN | | | | | EDUCATION [address] | | | | | | [place], | | | | | | [place] [address] | | | | | | [phone] | | | +--------+ + + + [...] this encounter Miscellaneous Notes Telephone Encounter - Heike Stewart RN - 11/30/2019 1:55 PM PDTCrystmohini, Minor's , stopped by my office in diabetes education. She said that Minor was in Same Day Surgery at the time, but wanted help managing his diabetes, including help with his diet. Requested a referral from [facility] from his PCP Russell Sanabria. documented in this encounter Plan of Treatment Not on filedocumented as of this encounter Visit Diagnoses Not on filedocumented in this encounter"
--- OUTSIDE RECORDS SUMMARY | ~2020-06-16 | XMS | Encounter Summary ---
Demographics + + + | Address | [address] | | | [place] [address] | + + + | Home Phone | | + + + | Preferred Language | Unknown | + + + | Marital Status | | + + + | Zoroastrianism Affiliation | Unknown | + + + | Race | White | + + + | Ethnic Group | Not or | + + + Author + + + | Author | [facility] | | | and [place] | + + + | Organization | [facility] | | | [...] [place], | | | | | [place] [address] | | + + + + + Care Team Providers + +------+ + | Care Chemical Packager Name | Role | Phone | + +------+ + PCP | Unavailable | + +------+ + Encounter Details +--------+ + + + + | Date | Type | Department | Care Team | Description | +--------+ + + + + | 06/10/ | Hospital | [facility] | Will Capellan, | Encounter to | | 2015 | Encounter | MED CTR LABORATORY | MD [address] | establish care with | | | | [address] | [place] | nikolai doctor | | | | [place] | [address] | | | | | [address] | | | | | | [phone] | | | +--------+ + + + [...] +---------+ + + | gabapentin | Take 1-3 capsules by | 180 | 0 | 06/07/20 | | | (NEURONTIN) 300 mg | mouth 3 times | capsule | | 15 | 5 | | capsule | daily. | | | | | [...] +---------+ + + | ondansetron | Take 1 tablet by | 24 | 0 | 06/07/20 | | | (ZOFRAN ODT) 4 mg | mouth every 8 hours | tablet | | 15 | 5 | | disintegrating | as needed for Nausea | | | | | | tabletIndications: | for up to 7 days. | | | | | | Encounter to | | | | | | | establish care with | | | | | | | new doctor | | | | | | + + + +---------+ + + | oxyCODONE | Take 1 tablet by | 40 | 0 | 06/07/20 | | | (ROXICODONE) 30 MG | mouth every 6 hours | tablet | | 15 | 5 | | immediate release | as needed [...] | DRUGS OF ABUSE, | Routin | 06/10/2015 | Encounter to | Results for this | | SCREEN, URINE | e | 9:06 AM | establish care with | procedure are in the | | | | PDT | new doctor | results section. | + +--------+ + + + documented in this encounter Results Drugs of Abuse, Screen, Urine (06/10/2015 9:06 AM PDT) + + + + + + | Component | Value | Ref Range | Performed | Pathologist | | | | | At | Signature | + + + + + + | Amphetamine | Negative | Negative | [facility] | | | Screen, | | | [facility] | | | Urine | | [...] + + + + | Methadone | Positive (A) | Negative | [facility] | | | Screen, | | | [facility] | | | Urine | | | MEDICAL | | | | | | CENTER - | | | | | | LABORATORY | | + + + + + + | Opiates | Positive (A) | Negative | [facility] [...] | + + + + + | [facility] | [address] | [place] | [phone] | | [facility] | | [address] | | | - LABORATORY | | | | + + + + + documented in this encounter Visit Diagnoses + + | Diagnosis | + + | Encounter to establish care with new doctor | + + documented in this encounter"
--- OUTSIDE RECORDS SUMMARY | ~2020-06-16 | XMS | Encounter Summary ---
Demographics + + + | Address | [address] [facility] | | | [place] [address] | + + + | Home Phone | | + + + | Preferred Language | Unknown | + + + | Marital Status | | + + + | Adventist Affiliation | Unknown | + + + | Race | White | + + + | Ethnic Group | Not or | + + + Author + + + | Author | [facility] | | | and [place] | + + + | Organization | [facility] | | | [...] [place], | | | | | [place] [address] | | + + + + + Care Team Providers + +------+ + | Care Tallier Name | Role | Phone | + [...] | | | | | [facility] | [place] [address] | | | | | [place] [address] | | | | | | [phone] | | | +--------+ + + + [...] KNEE RIGHT 3 VW | Routin | 01/11/2014 | | Results for this | | | e | 6:50 PM | | procedure are in the | | | | PDT | | results section. | + +--------+ + + + documented in this encounter Results XR Knee Right 3 Vw (01/11/2014 6:50 PM PDT) + + | Specimen | + + | | + + + + + | Narrative | Performed At | + + + | External films | [facility] | | for comparison only - no result from [place]. | | + + + + +---------+ + + | Performing | Address | City/State/Zipcode | Phone Number | | Organization | | | | + +---------+ + + | [facility] | | | | + +---------+ + + documented in this encounter Visit Diagnoses Not on filedocumented in this encounter"
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
--- OUTSIDE RECORDS SUMMARY | ~2020-06-16 | XMS | Encounter Summary ---
Demographics + + + | Address | [address] [facility] | | | [place] [address] | + + + | Home Phone | | + + + | Preferred Language | Unknown | + + + | Marital Status | | + + + | Sikhism Affiliation | Unknown | + + + | Race | White | + + + | Ethnic Group | Not or | + + + Author + + + | Author | [facility] | | | and [place] | + + + | Organization | [facility] | [...] [place], | | | | | [place] [address] | | + + + + + Care Team Providers + +------+ + | Care Vat Skimmer Name | Role | Phone | + +------+ + | Dimitri Ficsher MD | PCP | | + +------+ [...] | +--------+ + + + + | 08/08/ | Anesthesia | [facility] | Vida Suárez | | | 2017 | Event | MED CTR IR INTRA OP | MD Carmen [address] | | | | | [address] | [address] [facility] [address] | | | | | [place] | [place] [address] | | | | | [address] | | | | | | [phone] | | | +--------+ + + + + Anesthesia Record + + + + + | Procedure Name | Responsible | Anesthesia Start | Anesthesia Stop Time | | | Anesthesiologist | Time | | + + + + + | DI: MRI KNEE W/O | Vida Suárez, | 08/08/17 0855 | 08/08/17 1016 | | CONT (Right ) | MD | | | + + + + + +----+---+ + + | Da | T | Event | Comment | | te | i | | | | | m | | | | | e | | | +----+---+ + + | 11 | 0 | | | | /1 | 8 | | | | 7/ | 1 | | | | 20 | 8 | | | | 17 | | | | +----+---+ + + | | 0 | An Checkout | Pre-use anesthesia machine/equipment checkout. | | | 8 | | | | | 5 | | | | | 5 | | | +----+---+ + + | | 0 | An Start | Reassessment prior to anesthesia induction/procedure. | | | 8 | | | | | 5 | | | | | 5 | | | +----+---+ + + | | 0 | AN | Per surgeon request | | | 9 | Antibiotic | | | | 0 | declined | | | | 1 | | | +----+---+ + + | | 0 | Preoxygenat | | | | 9 | ed | | | | 0 | | | | | 5 | | | +----+---+ + + | | 0 | An | | | | 9 | Induction | | | | 0 | | | | | 7 | | | +----+---+ + + | | 0 | An | | | | 9 | Intubation | | | | 0 | | | | | 9 | | | +----+---+ + + | | 0 | First | | | | 9 | Inc/Proc St | | | | 1 | | | | | 7 | | | +----+---+ + + | | 1 | Quick Note | Spont vent, good RR and Vt. To PACU with LMA. | | | 0 | | | | | 0 | | | | | 2 | | | +----+---+ + + | | 1 | Extubated | | | | 0 | Awake | | | | 0 | | | | | 8 | | | +----+---+ + + | | 1 | An Stop | Patient handed off to recovery nurse. | | | 1 | | | | | 6 | | | +----+---+ + + +------+ | Meds | +------+ + +--------+ | Name | Total | + +--------+ | propofol (DIPRIVAN) injection | 200 mg | | (bolus) (20 mL) | | + +--------+ | lidocaine 2% (PF) | 100 mg | + +--------+ | lactated ringers (LR) infusion | 400 mL | + +--------+ + + | Name | + + | O2 Flow Rate (L/Min) | + + | Exp SEV | + + + + | No blood administrations on file. | + + +--------+ + + + | Type | Details | Placement | Removal | +--------+ + + + | Read | 12/05/14; 1133; Right:; knee; | 12/05/14 1133 by | 08/08/17840 by | | only - | ice [...] by | | only - | 08/08/17; 840 | Mansoor Ridley RN | Mónica Cabrera, [...] +--------+ + + + | Periph | 08/08/17; 0839; Right; Hand; | 08/08/17 0839 by | 08/08/17 1130 by | | eral | [id number] catheter system; | Althea Arredondo RN | Althea Arredondo RN | | IV | 20 gauge, 1 1/4 in length; 1; | | | | | distraction, intradermal | | | | | injection; no longer indicated; | | | | | 08/08/17; 1130 | | | +--------+ + + + | Airway | Placement Date: 08/08/17; | 08/08/17 09 by Vida | 08/08/17 1008 by Vida | | | Placement Time: 908 (created via | Carmen Suárez MD | Carmen Suárez MD | | | procedure documentation); Mask | | | | | Ventilation: EZ; Attempts: 1; | | | | | Airway Type: laryngeal mask; | | | | | Size: 4; Trauma: none; Placement | | | | | Check: exhaled CO2 detection | | | | | device; Removal Date: 08/08/17; | | | | | Removal Time: 1008 | | | +--------+ + + + [...] OR Notes Anesthesia Postprocedure Evaluation - Vida Suárez MD - 08/08/2017 10:18 AM PSTForm atting of this note might be different from the original. ANESTHESIA POSTANESTHESIA EVALUATION Cecilio Arias 47 y.o. male 1970 [id number] Procedure(s) DI: MRI KNEE W/O CONT (Right ) Cooperates? Yes Mental Status Performs simple tasks. Respiratory Satisfactory - Airway patent (self maintained). Cardiovascular Satisfactory - Blood pressure and heart rate acceptable Temperature Satisfactory Pain Satisfactory N/V Control Satisfactory Hydration Satisfactory - No signs of dehydration Complications None apparent Vitals: 08/08/17 0809 08/08/17 1015 BP: 130/75 108/77 Pulse: 69 64 Temp: 36.9 C (98.4 F) 36.6 C (97.9 F) Resp: 14 8 SpO2: 97% 96% Electronically signed by Vida Suárez MD 08/08/2017 10:18 [facility] nesthesia Procedure Notes - Vida Suárez MD - 08/08/2017 9: 58 AM PSTAssociated Order(s): ANE AIRWAY NOTEAnesthesia Airway Placement 08/08/2017 9:09 Preprocedure check: patient identified, oxygen, airway assessed, patient reassessment prior to induction, airway equipment checked and suction Rapid Sequence Induction: no Mask ventilation: easy Attempts: 1 Airway type: laryngeal mask Size: 4 Route, reference point: center of mouth Tube secured with: adhesive tape Trauma: none Tube placement verification: carbon dioxide detection Performing provider: VIDA SUÁREZ Electronically Signed by: Vida Suárez MD ESig date/time: 9:58 nesthesia Prepro cedure Evaluation - Vida Suárez MD - 08/08/2017 8:12 AM PST ANESTHESIA PREANESTHESIA EVALUATION Cecilio Arias 47 y.o. male 1970 [id number] Procedure(s): DI: MRI KNEE W/O CONT (Right ) Medical history, anesthesia, medications, allergy, NPO status verified histories reviewed. Labs reviewed. Review of Systems / Med History Anesthesia History No anesthesia complications. (+) PONV, failed moderate sedation (multiple attemtps at MRI failed)(-) difficult intubatio n, malignant hyperthermia Cardiovascular (-) CAD, past CO, CHF, angina , Exercise tolerance >4 METS Pulmonary No acute pulmonary concerns. (+) COPD (albuterol on occasion), smoking history(-) asthma(-) sleep apnea: Neurology (+) seizures, neuropathy (L elbow numbness), back pain, numbness/tingling (tingling BUE fin gers), chronic pain (neck pain; methadone 180mg per day; reports hes been tested and is a hi gh metabolizer of narcotics) Psychology Negative except where noted below. (+) anxiety (claustrophobia), substance abuse (MJ) Renal Negative except where noted below. (-) end-stage renal disease Gastrointestinal/Hepatic (+) hyperlipidemia Endocrine (+) Diabetes (CBG 221 this am): type 2, NIDDM (+) obesity: Other Negative except where noted below. Cancer Negative except where noted below. Physical Exam Airway Neck limited by chronic pain MP II, TM >3 FB, Mouth opening >2 FB. Neck: limited ROM, extends <30 degrees. Jaw prot rusion normal. Dental Grossly normal except where noted below.; Dentures at home (+) missing teeth, dentures-lower and dentures-upper. CV Rhythm regular. Rate Normal. (-) murmur, carotid bruit, peripheral edema, JVD and weak pulses. Pulm Clear to auscultation bilaterally. (-) wheezing, rhonchi, decreased breath sounds, rales and stridor. Neuro Grossly normal. Anesthesia Plan ASA 3 (COPD, chronic opioids) Type: General. Induction: Intravenous. Potential problems: None anticipated, difficult airway. Monitors: Standard ASA monitors. Consent statement:Anesthetic plan, alternatives, risks and benefits discussed with patient. Risks discussed included (but were not limited to): sore throat, nausea, perioperative CV e vents, respiratory events, heart problems, pain, . Consenting person understands and agrees to proceed. PARQ. . Electronically Signed by: Vida Suárez MD ESig date/time: 08/08/2017 8:12 documented in thi s encounter Miscellaneous Notes Addendum Note - Vida Suárez MD - 08/08/2017 2:23 PM PSTFormatting of this note mi ght be different from the original. Addendum created 08/08/17 1423 by Vida Suárez MD Sign clinical note documented in th is encounter Plan of Treatment Not on filedocumented as of this encounter Procedures + +--------+ + + + | Procedure Name | Priori | Date/Time | Associated Diagnosis | Comments | | | ty | | | | + +--------+ + + + | ANE AIRWAY NOTE | Routin | 08/08/2017 | | Results for this | | | e | 9:58 AM | | procedure are in the | | | | PST | | results section. | + +--------+ + + + documented in this encounter Results Anesthesia Airway Note (08/08/2017 9:58 AM PST) + + + | Narrative | Performed At | + + + | Vida Suárez MD 08/08/2017 9:59 Anesthesia Airway | | | Placement 08/08/2017 9:09 Preprocedure check: patient identified, | | | oxygen, airway assessed, patient reassessment prior to induction, | | | airway equipment checked and suction Rapid Sequence Induction: no | | | Mask ventilation: easy Attempts: 1 Airway type: laryngeal mask | | | Size: 4 Route, reference point: center of mouth Tube secured with: | | | adhesive tape Trauma: none Tube placement verification: carbon | | | dioxide detection Performing provider: VIDA SUÁREZ | | | Electronically Signed by: Vida Suárez MD | | | ESig date/time: 08/08/2017 9:58 | | | | | + + + + + | Procedure Note | + + | Vida Suárez MD - 08/08/2017 9:58 AM PST Anesthesia Airway | | Qozucvcji32/17/2017 9:09Preprocedure check: patient identified, oxygen, airway assessed, | | patient reassessment prior to induction, airway equipment checked and suctionRapid | | Sequence Induction: noMask ventilation: easyAttempts: 1Airway type: laryngeal maskSize: | | 4Route, reference point: center of mouthTube secured with: adhesive tapeTrauma: | | noneTube placement verification: carbon dioxide detectionPerforming provider: FERNY | | VIDA Cyrectronically Signed by: MD Curtis Soto | | date/time: 08/08/2017 9:58 | |Size: 4 | |Route, reference point: center of mouth | |Tube secured with: adhesive tape | |Trauma: none | |Tube placement verification: carbon dioxide detection | |Performing provider: VIDA SUÁREZ | | | | | |Electronically Signed by: MD Curtis Soto date/time: 9:58 | | | + + documented in this encounter Visit Diagnoses Not on filedocumented in this encounter Administered Medications + +--------+ +--------+------+------+ | Medication Order | MAR | Action | Dose | Rate | Site | | | Action | Date | | | | + +--------+ +--------+------+------+ | lidocaine (PF) 2% injection | Given | 08/08/20 | 100 mg | | | | PRN, Starting Fri08/08/17 at | | 17 9:07 | | | | | 0907, Anesthesia Intra-op | | AM PST | | | | + +--------+ +--------+------+------+ +---+---+ | | | +---+---+ + +-------+ +--------+---+---+ | propofol (DIPRIVAN) injection | Given | 08/08/20 | 200 mg | | | | PRN, Starting Fri08/08/17 at | | 17 9:07 | | | | | 0907, Anesthesia Intra-op | | AM PST | | | | + +-------+ +--------+---+---+ +---+---+ | | | +---+---+ documented in this encounter"
--- OUTSIDE RECORDS SUMMARY | ~2020-06-16 | XMS | Encounter Summary ---
Demographics + + + | Address | [address] | | | [place] [address] | + + + | Home Phone | | + + + | Preferred Language | Unknown | + + + | Marital Status | | + + + | Baptism Affiliation | Unknown | + + + | Race | White | + + + | Ethnic Group | Not or | + + + Author + + + | Author | [facility] | | | and [place] | + + + | Organization | [facility] | | | [...] [place], | | | | | [place] [address] | | + + + + + Care Team Providers + +------+ + | Care Recreation Clerk Name | Role | Phone | + +------+ + PCP | Unavailable | + +------+ + Reason for Referral Evaluate & Treat (Emergency) +--------+ + + [...] | Decreased | [address] | | | | | ROM of left | [place] | [place], | | | | | elbow | [place], [place] | [place] [address] | | | | | Procedures | [address] | Phone: | | | | | ot eval | Phone: | [phone] | | | | | | [phone] | Fax: | | | | | | Fax: | [phone] | | | | | | [phone] | | +--------+ + + + + + Reason for Visit + + + | Reason | Comments | + + + | Follow-up | left lateral epicondylar release DOS 11/15/15 | + + + Encounter Details +--------+---------+ + + + | Date | Type | Department | Care Team | Description | +--------+---------+ + + + | 03/05/ | Office | [facility] | Amadeo Saab | Left elbow pain | | 2016 | Visit | ORTHOPEDIC SURGERY | MAHENDRA Ogles[address] | (Primary Dx); | | | | [address] | [facility] | Decreased ROM of | | | | [facility] | [place] [address] | left elbow | | | | [address] | [phone] | | | | | [phone] | | | +--------+---------+ + + + [...] + + + + | Temperature | 36.1 C (97 F) | 03/05/2016 3:40 PM | | | | | PDT [...] + + + + | Weight | 110.7 kg (244 lb) | 03/05/2016 3:40 PM | | | | | PDT | | + + + + + | Height | 182.9 cm (6') | 03/05/2016 3:40 PM | | | | | PDT | | + + + + + | Body Mass Index | 33.09 | 03/05/2016 3:40 PM | | | | | PDT | | + + + + + documented in this encounter Progress Notes Amadeo Saab PA-C - 03/06/2016 6:56 AM PDTFormatting of this note might be differe nt from the original. Name:Cecilio Arias Todays Date: 03/06/2016 Age: 45 y.o. PCP: Dimitri Fischer Chief Complaint Patient presents with Follow-up left lateral epicondylar release DOS 11/15/15 SUBJECTIVE: Patient returns today for follow-up of left lateral epicondylar release and arthrotomy with surgery performed on 11/15/15. This is only his second visit since the surgery was performe d. He saw me for the first postoperative visit and was recovering well. Incision site is h ealing appropriately. I had him scheduled to follow-up in [address] Nayely Wood for further care. He was a no-show for this appointment. He was contacted sev eral times and messages were left to reschedule for postoperative visits. This never materi alized and he has not been seen since early November for his surgical recovery. Today he descr ibes that he continues to have pain at the incision site and just distal to this area. He f eels that he has decreased range of motion. He also complains of pain at the left cubital t unnel right knee and left shoulder. He further describes that he slipped on a hydraulic oil at [employer] when he was an employee there and that this caused significant damage to his body. Describes that the pain is unbearable at the left arm surgical site. However he stat es that he has returned to all his normal activities. He continues with aggressive chronic pain management therapy for pain in his lower back, knees and shoulder. Medication consisti ng of oxycodone 30 mg immediate release tablet one per oral every 6 hours and methadone 10 m g tablet, taking 0.5 tablets every 8 hours when necessary. He describes that he has pain at the lateral aspect of the left elbow today at 8 out of 10 OBJECTIVE: Inspection today of the incision site at the lateral aspect of the left elbow reveals that it has continued to heal well and appropriately. No erythema, induration, swelling or signs of infection noted. No open wound or drainage noted. Skin is warm and dry and he is neuro vascularly intact at the left elbow. Describes that he has pain the incision site and at th e lateral epicondyle. I palpated this area and he does verbalizes that it is tender. No ma sses, significant scar tissue formation or abnormalities are observed. When assessing activ e range of motion of the left elbow patient shows that he is lacking approximately 10-15 o f full flexion. He describes it as tight. I'm able to passively flex him at the left arm,a ppears to be near symmetrical when compared bilaterally. He describes it is significantly u ncomfortable. Imaging/Studies: No studies to review at this time. Filed Vitals: 03/05/16 1540 Temp: 36.1 C (97 F) TempSrc: Temporal Height: 1.829 m (6') Weight: 110.678 kg (244 lb) ASSESSMENT/PLAN: 1. Left lateral epicondylar release and arthrotomy, follow-up Anai Hernandes now presents today for a follow-up visit for a left lateral epicondylar rel ease arthroscopy that was performed on 11/15/15. This is only his second visit following up for his surgical procedure. We contacted him many times to establish postoperative visits h owever he continued to cancel visits. Examination today does reveal that he overall has hea led well from the surgical procedure. He continues to describe significant pain at the left elbow. Range of motion may be slowly decreased in the right as compared to the left. I pr obably informed him that I would not prescribe him any further medications and that he is to continue with pain medication prescribed by chronic pain management consisting of oxycodone and methadone. We discussed treatment options today consisting of physical therapy versus injection therapy. We ultimately settled that we will refer him to physical therapy in atte mpt to decrease the left elbow pain and help increase the range of motion and tightness that he is experiencing. We will refer to [place] physical therapy department recommended 2 ti mes a week 8 weeks. If pain persists following physical therapy intervention we will like ly proceed with injection therapy. In regards to his right knee, left shoulder imaging cubi teodoro tunnel pain I recommended that he set up a follow-up appointment for a new complaint. B. Patient is advised that if they have any questions, comments or concerns to contact our office. Electronically signed by: Amadeo Saab PA-C 03/06/2016 6:56 This note was dictated using the Zipdial recognition system. Minor errors in grammar may have occurred. documented in t his encounter Plan of Treatment + + +--------+ [...] joint, upper arm | + + | Decreased ROM of left elbow | + + documented in this encounter"
--- OUTSIDE RECORDS SUMMARY | ~2020-06-16 | XMS | Encounter Summary ---
Demographics + + + | Address | [address] | | | [place] [address] | + + + | Home Phone | | + + + | Preferred Language | Unknown | + + + | Marital Status | | + + + | Jewish Affiliation | Unknown | + + + [...] [place], | | | | | [place] [address] | | + + + + + Care Team Providers + +------+ + | Care Refuse Collector Name | Role | Phone | + [...] Closed | | Radiology | Diagnoses | Wood, | [facility] | | | | | Right knee | Marty Elise, | [address] | | | | | pain, | MD [address] | [place], | | | | | unspecified | [address] | [place] | | | | | chronicity | [place], | [address] | | | | | Procedures | [place] [address] | Phone: | | | | | MRI Knee | Phone: | [phone] | | | | | Right wo | [phone] | Fax: | | | | | Contrast | Fax: | [phone] | | | | | | [phone] | | +--------+--------+ + + + + Reason for Visit Auth/Cert +--------+--------+ + [...] + + + + | 08/08/ | Hospital | [facility] | Marty Wood | Right knee pain, | | 2017 | Encounter | MED CTR MRI [address] | [address], [address] [facility] | unspecified | | | | [place], | [place] | chronicity | | | | [place] [address] | [address] | | | | | [phone] | | | | | | | [address] | | +--------+ + + + + [...] 0 | 07/09/20 | | | SYR 54KU2-7/2 22G X | TESTOSTERONE TWICE A | [...] + +--------+ + + + | MRI KNEE RIGHT WO | Routin | 08/08/2017 | Right knee pain, | Results for this | | CONTRAST | e | 9:48 AM | unspecified | procedure are in the | | | | PST | chronicity | results section. | + +--------+ + + + documented in this encounter Results MRI Knee Right wo Contrast (08/08/2017 9:48 AM PST) + + | Specimen | + + | | + + + + + | Narrative | Performed At | + + + | UNENHANCED MRI RIGHT KNEE WITH GENERAL SEDATION 08/08/2017 9:00 AM | [facility] | | CLINICAL HISTORY: right knee pain and decreased range of motion | | | COMPARISON: Radiographs July 21 and more remote radiographs, MRI | | | June 2014 TECHNIQUE: General sedation was administered per the | | | anesthesia department. The following 1.5T MR sequences of the right | | | knee were obtained: 1. Coronal T1. 2. Axial and coronal proton | | | density with fat-suppression and sagittal proton density without | | | fat-suppression. 3. Sagittal STIR and T2 with fat-suppression. | | | FINDINGS: Marrow signal demonstrates no evidence of fracture or edema | | | of other etiology. The anterior and posterior cruciate ligaments | | | and lateral collateral ligamentous complex appear intact and | | | unremarkable, along with the patellar retinacula, patellar tendon and | | | imaged quadriceps tendon. Spurring is again apparent along the | | | inferior margin of the patella at the origin of the patellar tendon. | | | There is new heterogeneity within the substance of the medial | | | collateral ligament adjacent to its femoral origin, although intact | | | appearing fibers are present and the ligament is normal in appearance | | | and intact distal to this level. The body of the medial meniscus | | | now demonstrates an irregular, truncated appearance. Oblique | | | signal alteration within the substance of the posterior horn | | | approximates the tibial articular surface and is suspicious for tear. | | | The lateral meniscus again demonstrates near discoid morphology but | | | appears intact. Progressive irregular cartilage loss is noted over | | | the medial femoral condyle. The articular cartilage within the | | | lateral femorotibial compartment is maintained. Partial thickness | | | fissuring of cartilage is now evident over the lateral patellar | | | facet. Patellofemoral cartilage is otherwise maintained. A | | | moderate joint effusion is present. No intra-articular loose body is | | | identified. Soft tissues about the knee are otherwise | | | unremarkable. IMPRESSION - 1. IRREGULAR, TRUNCATED APPEARANCE | | | OF THE BODY OF THE MEDIAL MENISCUS, POSSIBLY REFLECTING INTERVAL | | | PARTIAL MENISCECTOMY ALTHOUGH PROGRESSIVE MENISCAL TEAR IS NOT | | | EXCLUDED. OBLIQUE SIGNAL ALTERATION WITHIN THE POSTERIOR MENISCUS | | | APPROXIMATES THE TIBIAL ARTICULAR SURFACE AND IS SUSPICIOUS FOR TEAR. | | | 2. HETEROGENEITY WITHIN THE PROXIMAL MEDIAL COLLATERAL LIGAMENT, | | | SUSPICIOUS FOR PARTIAL TEAR. 3. PROGRESSIVE CHONDROMALACIA | | | WITHIN THE MEDIAL FEMOROTIBIAL JOINT COMPARTMENT AND NEW PARTIAL | | | THICKNESS FISSURING OF CARTILAGE OVER THE LATERAL PATELLAR FACET. | | | 4. MODERATE JOINT EFFUSION. Dictated and Signed by: Sabino | | | MD Cliff Electronically signed: 08/08/2017 10:24 AM | | + + + + + | Procedure Note | + + | Jimbo Hoover Results In - 08/08/2017 10:27 AM PST UNENHANCED MRI RIGHT KNEE WITH GENERAL | | SEDATION 08/08/2017 9:00 AMCLINICAL HISTORY: right knee pain and decreased range of | | motionCOMPARISON: Radiographs July 21 and more remote radiographs, MRI June 2014 | | TECHNIQUE: General sedation was administered per the anesthesia department. The | | following 1.5T MR sequences of the right knee were obtained:1. Coronal T1.2. Axial and | | coronal proton density with fat-suppression and sagittal protondensity without | | fat-suppression.3. Sagittal STIR and T2 with fat-suppression.FINDINGS: Marrow signal | | demonstrates no evidence of fracture or edema of otheretiology. The anterior and | | posterior cruciate ligaments and lateral collateralligamentous complex appear intact and | | unremarkable, along with the patellarretinacula, patellar tendon and imaged quadriceps | | tendon. Spurring is againapparent along the inferior margin of the patella at the | | origin of the patellartendon. There is new heterogeneity within the substance of the | | medialcollateral ligament adjacent to its femoral origin, although intact | | appearingfibers are present and the ligament is normal in appearance and intact distal | | tothis level.The body of the medial meniscus now demonstrates an irregular, | | truncatedappearance. Oblique signal alteration within the substance of the | | posteriorhorn approximates the tibial articular surface and is suspicious for tear. | | Thelateral meniscus again demonstrates near discoid morphology but appears intact. | | Progressive irregular cartilage loss is noted over the medial femoral condyle. The | | articular cartilage within the lateral femorotibial compartment ismaintained. Partial | | thickness fissuring of cartilage is now evident over thelateral patellar facet. | | Patellofemoral cartilage is otherwise maintained. Amoderate joint effusion is present. | | No intra-articular loose body isidentified. Soft tissues about the knee are otherwise | | unremarkable.IMPRESSION -1. IRREGULAR, TRUNCATED APPEARANCE OF THE BODY OF THE MEDIAL | | MENISCUS, POSSIBLYREFLECTING INTERVAL PARTIAL MENISCECTOMY ALTHOUGH PROGRESSIVE MENISCAL | | TEAR ISNOT EXCLUDED. OBLIQUE SIGNAL ALTERATION WITHIN THE POSTERIOR | | MENISCUSAPPROXIMATES THE TIBIAL ARTICULAR SURFACE AND IS SUSPICIOUS FOR TEAR.2. | | HETEROGENEITY WITHIN THE PROXIMAL MEDIAL COLLATERAL LIGAMENT, SUSPICIOUS FORPARTIAL | | TEAR.3. PROGRESSIVE CHONDROMALACIA WITHIN THE MEDIAL FEMOROTIBIAL JOINT COMPARTMENTAND | | NEW PARTIAL THICKNESS FISSURING OF CARTILAGE OVER THE LATERAL PATELLARFACET.4. MODERATE | | JOINT EFFUSION.Dictated and Signed by: Sabino Coronado MD Electronically signed: | | 08/08/2017 10:24 AM | |identified. Soft tissues about the knee are otherwise unremarkable. | | | |IMPRESSION - | |1. IRREGULAR, TRUNCATED APPEARANCE OF THE BODY OF THE MEDIAL MENISCUS, POSSIBLY | |REFLECTING INTERVAL PARTIAL MENISCECTOMY ALTHOUGH PROGRESSIVE MENISCAL TEAR IS | |NOT EXCLUDED. OBLIQUE SIGNAL ALTERATION WITHIN THE POSTERIOR MENISCUS | |APPROXIMATES THE TIBIAL ARTICULAR SURFACE AND IS SUSPICIOUS FOR TEAR. | | | |2. HETEROGENEITY WITHIN THE PROXIMAL MEDIAL COLLATERAL LIGAMENT, SUSPICIOUS FOR | |PARTIAL TEAR. | | | |3. PROGRESSIVE CHONDROMALACIA WITHIN THE MEDIAL FEMOROTIBIAL JOINT COMPARTMENT | |AND NEW PARTIAL THICKNESS FISSURING OF CARTILAGE OVER THE LATERAL PATELLAR | |FACET. | | | |4. MODERATE JOINT EFFUSION. | | | |Dictated and Signed by: Sabino Coronado MD | | Electronically signed: 08/08/2017 10:24 AM | + + + +---------+ + + | Performing | Address | City/State/Zipcode | Phone Number | | Organization | | | | + +---------+ + + | [facility] | | | | + +---------+ + + documented in this encounter Visit Diagnoses + + | Diagnosis | + + | Right knee pain, unspecified chronicity | + + documented in this encounter
--- OUTSIDE RECORDS SUMMARY | ~2020-06-16 | XMS | Encounter Summary ---
Demographics + + + | Address | [address] | | | [place] [address] | + + + | Home Phone | | + + + | Preferred Language | Unknown | + + + | Marital Status | | + + + | Congregational Affiliation | Unknown | + + + | Race | White | + + + | Ethnic Group | Not or | + + + Author + + + | Author | [facility] | | | and [place] | + + + | Organization | [facility] | | [...] [place], | | | | | [place] [address] | | + + + + + Care Team Providers + +------+ + | Care Rn Telephonic Name | Role | Phone | + +------+ + | Dimitri Fischer MD | PCP | | + +------+ + Reason for Referral (Routine) +--------+--------+ + + + + | Status | Reason | Specialty | Diagnoses / | Referred By | Referred To | | | | | Procedures | Contact | Contact | +--------+--------+ + + + + | Closed | | | Diagnoses | Katiana, | | | | | | Acute | Amadeo | | | | | | medial | MAHENDRA Oglesby | | | | | | meniscus | [address] | | | | | | tear of | St [place] | | | | | | right knee, | [place], [place] | | | | | | initial | [address] | | | | | | encounter | Phone: | | | | | | Chronic pain | [phone] | | | | | | of right | Fax: | | | | | | knee | [phone] | | | | | | Procedures | | | | | | | DME: | | | | | | | Crutches | | | +--------+--------+ + + + [...] | | | | | | | CO KNEE | | | | | | | SCOPE,DIAGNO | | | | | | | STIC CO | | | | | | | KNEE | | | | | | | SCOPE,PART | | | | | | | SYNOVECT CO | | | | | | | KNEE | | | | | | | SCOPE,SHAVE | | | | | | | ARTICULAR | | | | | | | CART CO | | | | | | | ARTHRS KNEE | | | | | | | W/MENISCECTO | | | | | | | MY MED&LAT | | | | | | | W/SHAVING | | | | | | | CO ARTHRS | | | | | | | KNE SURG | | | | | | | W/MENISCECTO | | | | | | | MY MED/LAT | | | | | | | W/SHVG CO | | | | | | | KNEE | | | | | | | SCOPE,MED OR | | | | | | | LAT MENIS | | | | | | | REPAIR CO | | | | | | | [...] | +--------+ + + + + | 02/11/ | Hospital | [facility] | Marty Wood | Acute medial | | 2018 | Encounter | MED CTR OR INTRA OP | MD Gosia [address] | meniscus tear of | | | | [address] | [place] | right knee, initial | | | | [place] | [address] | encounter (Primary | | | | [address] | | Dx); Chronic pain of | | | | [phone] | | right knee; Lateral | | | | | | epicondylitis of | | | | | | left elbow; Lateral | | | | | | epicondylitis, right | | | | | | elbow; Complex tear | | | | | | of medial meniscus | | | | | | of right knee as | | | | | | current injury, | | | | | | initial encounter; | | | | | | Chondromalacia of | | | | | | knee, right; Lateral | | | | | | epicondylitis of | | | | | | both elbows | +--------+ + + + + Social [...] + + + | Blood Pressure | 122/57 | 02/11/2018 1:30 PM | | | | | PDT | | + + + + + | Pulse | 58 | 02/11/2018 1:30 PM | | | | | PDT [...] | Oxygen Saturation | 99% | 02/11/2018 1:30 PM | | | | | PDT [...] mg of acetaminophen (Tylenol) per day. Hydrocodone-acetaminophen (Rye ) and Oxycodone-acetaminophen (Percocet) have 325 mg [...] 8 | | phetamine (ADDERALL) | and /2 tablet at | | | | | [...] 0 | 07/09/20 | | | SYR 71AL2-5/2 22G X | TESTOSTERONE TWICE A | | | 17 | 9 | | -09/23" 3 ML MISC | WEEK | | | | | + + + +---------+ + + | B-D 3CC LUER-ANDREAS | | | 0 | 11/18/19 | | | SYR 38EA3-8/2 23G X | | | | 18 [...] +---------+ + + | clomiPHENE | take 2 tablet by | | 0 | 01/03/20 [...] signed by: Marty Wood MD, 02/11/2018 10:55 [facility] - 02/05/2018 2:15 PM PDT 02/05/18 [...] (HCC) Lab results placed in chart regarding [id number] Phenotype. Osteoporosis PONV (postoperative nausea and vomiting) Seizure (HCC) Testosterone deficiency Vitamin D deficiency Past Surgical History: Procedure Laterality Date CARPAL TUNNEL RELEASE Left 05/14/2017 Procedure: Left Elbow Joint Exploration and Bilateral Shoulder Injection; Surgeon: Nirmal Wood MD; Location: [facility] MAIN OR ELBOW SURGERY Left 11/15/2015 Procedure: Left Lateral Epicondylar Release & Injection of Left Elbow Joint ; Surgeon: Janet Wood MD; Location: [facility] MAIN OR KNEE ARTHROSCOPY Right 12/05/2014 Procedure: Right Knee Arthroscopy with Partial Medial Menisectomy and Medial- Femoral Tay droplasty; Surgeon: Marty Wood MD; Location: [facility] MAIN OR MANDIBLE SURGERY spinal cord injury [...] at noon 0 B-D 3CC LUER-ANDREAS SYR 07LD0-7/2 22G X 1-1/2" 3 ML MISC use to INJECT TESTOSTERONE TWICE A WEEK 0 B-D 3CC LUER-ANDREAS SYR 04HN6-3/2 23G X 1-1/2" 3 ML MISC 0 [...] PM PDTOPERATIVE REPORT MARTY WOOD MD Patient: Ceciilo Figueroatis Admitting: MARTY Elise ANA MR #: [id number] DATE OF SURGERY:02/11/2018 DATE OF DICTATION:02/11/2018 OPERATIVE SURGEON: Dr. Marty Wood STAFF REGISTERED NURSE: Amadeo Saab PA-C ANESTHESIOLOGIST: Dr. Irvin Bro [...] + | [facility] [address]. | [address] | [place] | [phone] | | [facility] | | [address] | | | - LABORATORY | | | | + + + + + documented in this encounter Visit Diagnoses + + | Diagnosis | + + | Acute medial meniscus tear of right knee, initial encounter - Primary | + + | Chronic pain of right knee | + + | Lateral epicondylitis of left elbow Lateral epicondylitis of elbow | + + | Lateral epicondylitis, right elbow | + + | Complex tear of medial meniscus of right knee as current injury, initial encounter | + + | Chondromalacia of knee, right | + + | Lateral epicondylitis of both elbows Lateral epicondylitis of elbow | + + documented in this encounter Administered Medications + +--------+ +--------+------+------+ | Medication Order | MAR | Action | Dose | Rate | Site | | | Action | Date | | | | + +--------+ +--------+------+------+ | acetaminophen (TYLENOL) tablet | Given | 02/12/20 | 975 mg | | | | 975 mg 975 mg (rounded from | | 18 10:57 | | | | | 1,000 mg), Oral, ONCE, Fri | | AM PDT | | [...] glucose < 50, | | | Starting Fri02/11/18 at 1033, | | | Repeat in [...] PRN, Pain, pain, | | | Starting 02/11/18 at 1033, Max | | | total [...] +--------+---+---+ | HYDROmorphone (DILAUDID) | Given | 05/23/20 | 0.5 mg | | | | [...] PDT | | | | +---------+ +---+---+---+ + +---+ | | | + +---+ [...] ONCE | | | PRN, Nausea, Starting 02/11/18 | | | at 1156, For 1 [...] +-------+ +-------+---+---+ +---+---+ | | | +---+---+ documented in this encounter
--- OUTSIDE RECORDS SUMMARY | ~2020-06-16 | XMS | Encounter Summary ---
Demographics + + + | Address | [address] | | | [place] [address] | + + + | Home Phone | | + + + | Preferred Language | Unknown | + + + | Marital Status | | + + + | Mandaeism Affiliation | Unknown | + + + | Race | White | + + + | Ethnic Group | Not or | + + + Author + + + | Author | [facility] | | | and [place] | + + + | Organization | [facility] | | [...] [place], | | | | | [place] [address] | | + + + + + Care Team Providers + +------+ + | Care Dye Blender Name | Role | Phone | + [...] | | | | | | | [place] KNEE | | | | | | | SCOPE,DIAGNO | | | | | | | STIC [place] | | | | | | | KNEE | | | | | | | SCOPE,SHAVE | | | | | | | ARTICULAR | | | | | | | CART [place] | | | | | | | ARTHRS KNEE | | | | | | | W/MENISCECTO | | | | | | | MY MED&LAT | | | | | | | W/SHAVING | | | | | | | [place] ARTHRS | | | | | | | KNE SURG | | | | | | | W/MENISCECTO | | | | | | | MY MED/LAT | | | | | | | W/SHVG [place] | | | | | | | KNEE | | | | | | | SCOPE,MED OR | | | | | | | LAT MENIS | | | | | | | REPAIR [place] | | | | | | | [...] + + + + | 12/05/ | Hospital | [facility] | Marty Wood | Medial meniscus | | 2015 | Encounter | MED CTR OR INTRA OP | MD Gosia [address] [facility] | tear, right, | | | | [address] | [place], [place] | subsequent encounter | | | | [place], [place] | [address] | (Primary Dx) | | | | [address] | | | | | | [phone] | | | +--------+ + + + [...] affected knee as much as you can [id number] after surgery. Slowly bend and straighten your affected leg as far as you can, unless your doctor tells you otherwise. Do this several times a day. Rest your knee by lying down and putting pillows under it for the [id number] after s urgery. Keep your ankle elevated [...] your d octor says it s OK. Koku7fri(s)after your surgery to begin showering. Then shower [...] the knee. Apply the ice pack fo [id number]; then remove it [id number]. Repeat as needed. Icing helps reduce swelli [...] coldness in your foot or leg Fever [id number](38.0C) or shaking chills Excessive swelling, increased redness, or any drainage around the incision Swelling, tenderness, or pain in your leg 9274-8320 [employer]. [address] [place] [address]. All [facility] ts reserved. This information is not intended [...] pain, ask for a daily dose. Harika chpaarro that acetaminophen or other pain relievers may interact with prescription medicines or other fpsp-kxr-mirbsxj (OTC) drugs. The FDA recommends reading OTC medication labels careful ly to clearly understand the list of active ingredients, directions, and any precautions to help avoid taking too muchacetaminophen. If you have questions, ask your pharmacist or [facility] care provider. Managing Nausea Some people have [...] or skin changes (rash, itching, or hives). 1157-5169 [employer]. [address] [place] [address], [place] [address]. All righ ts reserved. This information is [...] Marty Wood MD - 12/05/2014 9:49 AM [facility] SURGICAL INTERIM HISTORY AND PHYSICAL [...] signed by: Marty Wood, 12/05/2014 9:49 [facility] Marty Singh MD - 11/29/2014 1:36 PM PDT History [...] Avlonitis Admitting: MARTY Elise ANA MR #: DATE OF SURGERY:@date@ DATE OF [...] 135 | 70 - 150 mg/dL | [facility] | | | POC [...] [address] | [place] | [phone] | | [facility] | | [address] | | | - LABORATORY | | | | + + + + + | [facility] | [address] | [place] | | | [facility] | | [address], [facility] | | | - LABORATORY | [...] + | [facility] | [address] | [place], [place] | [phone] | | [facility] | | [address] | | | - LABORATORY | | | | + + + + + | [facility] | [address] | [place], [place] | | | [facility] | | [address] [place] [address] | | | - LABORATORY | | [...] | | | | | 12/05/14 at 1357, For 3 days | | [...] | | | | | tolerated use Spring 10/325 if | | | | | | | ordered, Post-op/Phase II | | | | | | + +-------+ +---------+---+---+ +---+---+ | | | +---+---+ documented in this encounter"
--- OUTSIDE RECORDS SUMMARY | ~2020-06-16 | XMS | Encounter Summary ---
Demographics + + + | Address | [address] [facility] | | | [place] [address] | + + + | Home Phone | | + + + | Preferred Language | Unknown | + + + | Marital Status | | + + + | Restorationist Affiliation | Unknown | + + + | Race | White | + + + | Ethnic Group | Not or | + + + Author + + + | Author | [facility] | | | and [place] | + + + | Organization | [facility] | | | [...] [place], | | | | | [place] [address] | | + + + + + Care Team Providers + +------+ + | Care Sketch Artist Name | Role | Phone | + +------+ + | Russell Sanabria MD | PCP | | + +------+ + Encounter Details +--------+ + + + + | Date | Type | Department | Care Team | Description | +--------+ + + + + | 08/04/ | Orders Only | [facility] | Sabino Coronado MD | | | 2017 | | MED CTR MRI [address] | | | | | [place], | [place], [place] | | | | | [place] [address] | [address] | | | | | [phone] | [phone] | | | | | | | [...]
--- OUTSIDE RECORDS SUMMARY | ~2020-06-16 | XMS | Encounter Summary ---
Demographics + + + | Address | [address] | | | [place] [address] | + + + | Home Phone [...] [place], | | | | | [place] [address] | | + + + + + Care Team Providers + +------+ + | Care Tripoler Name | Role | Phone | + +------+ + PCP | Unavailable | + +------+ + Reason for Visit + + + | Reason | Comments | + + + | Pre-op Exam | | + + + Encounter Details +--------+ + + + + | Date | Type | Department | Care Team | Description | +--------+ + + + + | 11/30/ | Clinical | [facility] | Marty Wood | SOB (shortness of | | 2014 | Support | ORTHOPEDIC SURGERY | MD Gosia [address] | breath) (Primary | | | | [address] [place] | [place] | Dx); Pre-op testing | | | | [place] | [address] | | | | | [address] | | | | | | [phone] | | | +--------+ + + + [...] documented as of this encounter Progress Notes Claudia Gray, Master of Arts - 12/02/2014 10:45 AM PDTPatient came in to go over surgery paperwork and to do the pre-op testing. documented in this encounter Plan of Treatment Not on filedocumented as of this encounter Procedures + +--------+ + + + | Procedure Name | Priori | Date/Time | Associated Diagnosis | Comments | | | ty | | | | + +--------+ + + + | URINALYSIS WITH | Routin | 11/30/2014 | Pre-op testing | Results for this | | MICROSCOPIC WITH | e | 9:33 AM | | procedure are in the | | CULTURE IF INDICATED | | PDT | | results section. | + +--------+ + + + | CBC WITH | Routin | 11/30/2014 | Pre-op testing | Results for this | | DIFFERENTIAL | e | 9:33 AM | | procedure are in the | | | | PDT | | results section. | + +--------+ + + + | COMPREHENSIVE | Routin | 11/30/2014 | Pre-op testing | Results for this | | METABOLIC PANEL | e | 9:33 AM | | procedure are in the | | | | PDT | | results section. | + +--------+ + + + documented in this encounter Results ECG 12 lead (12/01/2014 5:20 PM PDT) + + + | Narrative | Performed At | + + + | Remi Tadeo MD 12/01/2014 17:20 Adult ECG Report | | | Name: Cecilio Arias Age: 44 y.o. Gender: male | | | 11/30/14 at 8:31 Narrative Interpretation: Sinus rhythm with | | | incomplete right bundle branch block. There is ST elevation in | | | leads V2 and 3 which may be a normal variant and J-point elevation | | | though ischemia/infarction cannot be excluded. | | + + + XR Chest PA and Lateral (11/30/2014 9:57 AM PDT) + + | Specimen | + + | | + + + + + | Narrative | Performed At | + + + | XR CHEST PA AND LATERAL 11/30/2014 9:57 AM HISTORY: preop | [facility] | | testing. COMPARISON: None. Findings: Heart size is at the | [facility] | | upper limits of normal. Aorta is normal. Mediastinum is unremarkable. | MEDICAL CENTER | | Central pulmonary vasculature is normal. The bilateral lungs are | - IMAGING | | clear with no evidence for pleural effusion or pneumothorax. There is | | | moderate thoracic spondylosis. Moderate degenerative changes are | | | present of the AC joints. IMPRESSION - No acute findings. | | | Dictated and Signed by: Kyle Peoples MD Electronically signed: | | | 11/30/2014 10:04 AM | | + + + + + | Procedure Note | + + | Jimbo Hoover Results In - 11/30/2014 10:07 AM PDT XR CHEST PA AND LATERAL 11/30/2014 9:57 | | AMHISTORY: preop testing.COMPARISON: None.Findings:Heart size is at the upper limits of | | normal. Aorta is normal. Mediastinum isunremarkable. Central pulmonary vasculature is | | normal. The bilateral lungs areclear with no evidence for pleural effusion or | | pneumothorax. There is moderatethoracic spondylosis. Moderate degenerative changes are | | present of the ACjoints.IMPRESSION -No acute findings.Dictated and Signed by: Kyle | | MD Shelton Electronically signed: 11/30/2014 10:04 AM | |Heart size is at the upper limits of normal. Aorta is normal. Mediastinum is | |unremarkable. Central pulmonary vasculature is normal. The bilateral lungs are | |clear with no evidence for pleural effusion or pneumothorax. There is moderate | |thoracic spondylosis. Moderate degenerative changes are present of the AC | |joints. | | | |IMPRESSION - | |No acute findings. | | | |Dictated and Signed by: Kyle Peoples MD | | Electronically signed: 11/30/2014 10:04 AM | + + + + + + + | Performing | Address | City/State/Zipcode | Phone Number | | Organization | | | | + + + + + | [facility] | [address] | [place] | [phone] | | [facility] | | [address] | | | - IMAGING | | | | + + + + + Urinalysis with Microscopic with Culture if Indicated (11/30/2014 9:33 AM PDT) + + + + + + | Component | Value | Ref Range | Performed | Pathologist | | | | | At | Signature | + + + + + + | Color, | Yellow | Light Yellow, | [facility] | | | Urine | | Yellow | [facility] | | | | | | MEDICAL | | | | | | CENTER - | | | | | | LABORATORY | | + + + + + + | Clarity, | Clear | Clear | [facility] | | | Urine | | | [facility] | | | | | | MEDICAL | | | | | | CENTER - | | | | | | LABORATORY | | + + + + + + | pH, Urine | 8.5 (H) | 5.0 - 8.0 | [facility] | | | | | | [facility] | | | | | | MEDICAL | | | | | | CENTER - | | | | | | LABORATORY | | + + + + + + | Specific | 1.020 | 1.001 - 1.030 | [facility] | | | [place], | | | [facility] | | | Urine | | | MEDICAL | | | | | | CENTER - | | | | | | LABORATORY | | + + + + + + | Protein, | Trace (A) | Negative | [facility] | | | Urine | | | [facility] | | | | | | MEDICAL | | | | | | CENTER - | | | | | | LABORATORY | | + + + + + + | Blood, | Negative | Negative | [facility] | | | Urine | | | [facility] | | | | | | MEDICAL | | | | | | CENTER - | | | | | | LABORATORY | | + + + + + + | Glucose, | Negative | Negative | [facility] | | | Urine | | | [facility] | | | | | | MEDICAL | | | | | | CENTER - | | | | | | LABORATORY | | + + + + + + | Ketones, | Negative | Negative | [facility] | | | Urine | | | [facility] | | | | | | MEDICAL | | | | | | CENTER - | | | | | | LABORATORY | | + + + + + + | Bilirubin, | Small (A) | Negative | [facility] [...] + + + + | Leukocyte | Negative | Negative | [facility] | | | Esterase, | | | [facility] | | | Urine | | | MEDICAL | | | | | | CENTER - | | | | | | LABORATORY | | + + + + + + | Urobilinoge | 2.0 E.U./dL (A) | 0.2 E.U./dL, | [facility] | | | n, Urine | | 1.0 E.U./dL | [facility] | | | | | | MEDICAL | | | | | | CENTER - | | | | | | LABORATORY | | + + + + + + | White Blood | 2-5 (A) | 0 - 2 /HPF | [facility] | | | Cells, | | | [facility] | | | Urine | | | MEDICAL | | | | | | CENTER - | | | | | | LABORATORY | | + + + + + + | Red Blood | 0-2 | 0 - 2 /HPF | [facility] | | | Cells, | | | [facility] | | | Urine | | | MEDICAL | | | | | | CENTER - | | | | | | LABORATORY | | + + + + + + | Squamous | 0-2 | 0 - 2 /LPF | [facility] | | | Epithelial | | | [facility] | | | Cells, | | | MEDICAL | | | Urine | | | CENTER - | | | | | | LABORATORY | | + + + + + + | Bacteria, | Negative | Negative /HPF | [facility] | | | Urine | | | [facility] | | | | | | MEDICAL | | | | | | CENTER - | | | | | | LABORATORY | | + + + + + + | Urine | Urine Culture Not | | [facility] | | | Comment | Indicated | | [facility] | | | [...] + | [facility] | [address] | [place] | [phone] | | [facility] | | [address] | | | - LABORATORY | | | | + + + + + | [facility] | [address] | [place] | | | [facility] | | [address] [place] [address] | | | - LABORATORY | | | | + + + + + Comprehensive Metabolic Panel (11/30/2014 9:33 AM PDT) + + + + + [...] + + + + | K | 3.6 | 3.5 - 5.1 | [facility] | [...] + + + + | Glucose | 135 (H) | 70 - 109 mg/dL | [facility] | | | | | | [facility] | | | | | | MEDICAL | | | | | | CENTER - | | | | | | LABORATORY | | + + + + + + | BUN | 7 | 7 - 18 mg/dL | [facility] | | | | | | [facility] | | | | | | MEDICAL | | | | | | CENTER - | | | | | | LABORATORY | | + + + + + + | Creatinine | 0.94 | 0.60 - 1.30 | [facility] | | | | | mg/dL | [facility] | | | | | | MEDICAL | | | | | | CENTER - | | | | | | LABORATORY | | + + + + + + | eGFR, | >60Comment: GLOMERULAR | >=60 | [facility] | | | non- | FILTRATION | mL/min/1.73m2 | [facility] | | | [place] | RATE,ESTIMATED | | MEDICAL | | | | mL/min/1.37s6Zgce than | | CENTER - | | [...] + + + + | Calcium | 9.0 | 8.3 - 10.5 | [facility] | | | | | mg/dL | [facility] | | | | | | MEDICAL | | | | | | CENTER - | | | | | | LABORATORY | | + + + + + + | Albumin | 3.8 | 3.2 - 5.0 g/dL | [facility] | | | | | | [facility] | | | | | | MEDICAL | | | | | | CENTER - | | | | | | LABORATORY | | + + + + + + | Bilirubin | 0.6 | 0.1 - 1.5 mg/dL | [facility] | | | Total | | | [facility] | | | | | | MEDICAL | | | | | | CENTER - | | | | | | LABORATORY | | + + + + + + | Total | 6.3 | 6.0 - 7.8 g/dL | [facility] | | | Protein | | | [facility] | | | | | | MEDICAL | | | | | | CENTER - | | | | | | LABORATORY | | + + + + + + | AST | 26 | 10 - 42 U/L | [facility] | | | | | | [facility] | | | | | | MEDICAL | | | | | | CENTER - | | | | | | LABORATORY | | + + + + + + | ALT | 27 | 6 - 45 U/L | [facility] | | | | | | [facility] | | | | | | MEDICAL | | | | | | CENTER - | | | | | | LABORATORY | | + + + + + + | Alkaline | 79 | 40 - 110 U/L | [facility] | | | Phosphatase | | | [facility] | | | | | | MEDICAL | | | | | | CENTER - | | | | | | LABORATORY | | + + + + + + | Globulin | 2.5 | g/dL | [facility] | | | | | | [facility] | | | | | | MEDICAL | | | | | | CENTER - | | | | | | LABORATORY | | + + + + + + | Albumin/Michelle | 1.5 | | [facility] | | | bulin Ratio | | | [facility] | | | | | | MEDICAL | | | | | | CENTER - | | | | | | LABORATORY | | + + + + + + | BUN/Creatin | 7.4 | | [facility] | | | ine Ratio | | | [facility] | | | | | | MEDICAL | | | | | | CENTER - | | | | | | LABORATORY | | + + + + + + + + | Specimen | + + | Blood - Right upper | | arm structure (body | | structure) | + + + + + + + | Performing | Address | City/State/Zipcode | Phone Number | | Organization | | | | + + + + + | [facility] | [address] | [place] | [phone] | | [facility] | | [address] | | | - LABORATORY | | | | + + + + + | [facility] | [address] | [place] | | | [facility] | | [address] [place] [address] | | | - LABORATORY | | | | + + + + + CBC with Differential (11/30/2014 9:33 AM PDT) + + + + + + | Component | Value | Ref Range | Performed | Pathologist | | | | | At | Signature | + + + + + + | White Blood | 11.1 (H) | 4.0 - 11.0 K/uL | [facility] | | | Cells | | | [facility] | | | | | | MEDICAL | | | | | | CENTER - | | | | | | LABORATORY | | + + + + + + | Red Blood | 5.29 | 4.30 - 5.70 | [facility] | | | Cells | | M/uL | [facility] | | | | | | MEDICAL | | | | | | CENTER - | | | | | | LABORATORY | | + + + + + + | Hemoglobin | 16.0 | 13.5 - 18.0 | [facility] | | | | | g/dL | [facility] | | | | | | MEDICAL | | | | | | CENTER - | | | | | | LABORATORY | | + + + + + + | Hematocrit | 48.4 | 40.0 - 51.0 % | [facility] | | | | | | [facility] | | | | | | MEDICAL | | | | | | CENTER - | | | | | | LABORATORY | | + + + + + + | MCV | 91.5 | 83.0 - 101.0 fL | [facility] | | | | | | [facility] | | | | | | MEDICAL | | | | | | CENTER - | | | | | | LABORATORY | | + + + + + + | MCH | 30.3 | 28.0 - 35.0 pg | [facility] [...] + + + + | RDW-CV | 14.5 | <15.0 % | [facility] | | | | | | [facility] | | | | | | MEDICAL | | | | | | CENTER - | | | | | | LABORATORY | | + + + + + + | Platelet | 249 | 140 - 440 K/uL | [facility] | | | Count | | | [facility] | | | | | | MEDICAL | | | | | | CENTER - | | | | | | LABORATORY | | + + + + + + | MPV | 9.1 | fL | [facility] | | | | | | [facility] | | | | | | MEDICAL | | | | | | CENTER - | | | | | | LABORATORY | | + + + + + + | % | 56.1 | 45.0 - 82.0 % | [facility] | | | Neutrophils | | | [facility] | | | | | | MEDICAL | | | | | | CENTER - | | | | | | LABORATORY | | + + + + + + | % | 30.6 | 20.0 - 45.0 % | [facility] | | | Lymphocytes | | | [facility] | | | | | | MEDICAL | | | | | | CENTER - | | | | | | LABORATORY | | + + + + + + | % Monocytes | 9.4 | 4.0 - 12.0 % | [facility] | | | | | | [facility] | | | | | | MEDICAL | | | | | | CENTER - | | | | | | LABORATORY | | + + + + + + | % | 3.1 | 0.0 - 5.0 % | [facility] [...] + + + + | Absolute | 6.20 | 1.80 - 8.50 | [facility] | [...] + + + + | Absolute | 1.00 | 0.00 - 1.00 | [facility] | | | Monocytes | | K/uL | [facility] | | | | | | MEDICAL | | | | | | CENTER - | | | | | | LABORATORY | | + + + + + + | Absolute | 0.30 | 0.00 - 0.40 | [facility] | | | Eosinophils | | K/uL | [facility] | | | | | | MEDICAL | | | | | | CENTER - | | | | | | LABORATORY | | + + + + + + | Absolute | 0.10 | 0.00 - 0.10 | [facility] | | | Basophils | | K/uL | [facility] | | | | | | MEDICAL | | | | | | CENTER - | | | | | | LABORATORY | | + + + + + + + + | Specimen | + + | Blood - Right upper | | arm structure (body | | structure) | + + + + + + + | Performing | Address | City/State/Zipcode | Phone Number | | Organization | | | | + + + + + | [facility] | [address] | [place] | [phone] | | [facility] | | [address] | | | - LABORATORY | | | | + + + + + | [facility] | [address] | [place] | | | [facility] | | [address], [facility] | | | - LABORATORY | | | | + + + + + documented in this encounter Visit Diagnoses + + | Diagnosis | + + | SOB (shortness of breath) - Primary Shortness of breath | + + | Pre-op testing Preoperative examination, unspecified | + + documented in this encounter"
--- OUTSIDE RECORDS SUMMARY | ~2020-06-16 | XMS | Encounter Summary ---
Demographics + + + | Address | [address] | | | [place] [address] | + + + | Home Phone | | + + + | Preferred Language | Unknown | + + + | Marital Status | | + + + | Alevism Affiliation | Unknown | + + + | Race | White | + + + | Ethnic Group | Not or | + + + Author + + + | Author | [facility] | | | and [place] | + + + | Organization | [facility] | | [...] [place], | | | | | [place] [address] | | + + + + + Care Team Providers + +------+ + | Care Ladies Locker Room Attendant Name | Role | Phone | [...] | | osteoarthrit | MD Giuliano | [place] | | | | | is, right | [address] | [facility] [place] | | | | | knee | [facility] | [address] Phone: | | | | | Procedures | BEN [place] | [phone] | | | | | 05/08>PEND | [id number] | Fax: | | | | | PCP REFERRAL | Phone: | [phone] | | | | | | [phone] | | | | | | | Fax: | | | | | | | [phone] | | +--------+ + + + + + Reason for Visit + + + | Reason | Comments | + + + | Knee Pain | | + + + Encounter Details +--------+ + + + + | Date | Type | Department | Care Team | Description | +--------+ + + + + | 05/04/ | Emergency | [facility] | Stan Espino | Internal derangement | | 2017 | | [facility] | Cody Nobles MD | of right knee | | | | CENTER [address] | [address] | (Primary Dx) | | | | [place] | [place] | | | | | [address] | [id number] | | | | | [phone] | | | +--------+ + + + [...] + + + | Blood Pressure | 98/54 | 05/04/2017 12:53 PM | | | | | PDT | | + + + + + | Pulse | 96 | 05/04/2017 12:53 PM | | | | | PDT | | + + + + + | Temperature | 37.2 C (98.9 F) | 05/04/2017 12:53 PM | | | | | PDT | | + + + + + | Respiratory Rate | 16 | 05/04/2017 12:53 PM | | | | | PDT | | + + + + + | Oxygen Saturation | 94% | 05/04/2017 12:53 PM | | | | | PDT | | + + + + + | Inhaled Oxygen | - | - | | | Concentration | | | | + + + + + | Weight | 99.8 kg (220 lb) | 05/04/2017 12:53 PM | | | | | PDT | | + + + + + | Height | 182.9 cm (6') | 05/04/2017 12:53 PM | | | | | PDT | | + + + + + | Body Mass Index | 29.84 | 05/04/2017 12:53 PM | | | | | PDT | | + + + + + documented in this encounter Discharge Instructions Instructions Stan Espino MD - 05/04/2017Wear knee brace as needed. Do shonda vation and icing as needed. documented in this encounter Medications at Time [...] encounter ED Notes Stan Espino MD - 05/04/2017 1:14 PM PDTFormatting of this note might be d ifferent from the original. [facility] Cecilio Arias Emergency Department Encounter Note [address] [place] [address] PCP:Dimitri Fischer MD [phone] eMERGENCY dEPARTMENT eNCOUnter CHIEF COMPLAINT Chief Complaint Patient presents with Knee Pain TRIAGE ED Triage Notes, ED Triage Notes Stacey Barakat RN 05/04/2017 12:53 Right knee pain x4 hours. Chronic RT knee pain after a fall. Previous RT knee surgery 2015 HPI Cecilio Arias is a 47 y.o. male who presents patient states he is walking in his home and felt a pop in his right knee. Patient's here for further evaluation. He had previous knee surgery in 2014 approximate 90 days after the knee surgery had a fall on his knee and reinjured the right knee. Patient h as ongoing right knee pain. He's here for further evaluation. Patient has acute pain to th e right knee with inflammation to the right knee. PAST MEDICAL HISTORY Past Medical History: Diagnosis Date Adverse effect of anesthesia Slow to wake up Diabetes mellitus (HCC) Elevated cholesterol Emphysema of lung (HCC) GERD (gastroesophageal reflux disease) Immune deficiency disorder (HCC) Lab results placed in chart regarding [id number] Phenotype. Osteoporosis PONV (postoperative nausea and vomiting) Seizure (HCC) Testosterone deficiency Vitamin D deficiency SURGICAL HISTORY Past Surgical History: Procedure Laterality Date ELBOW SURGERY Left 11/15/2015 Procedure: Left Lateral Epicondylar Release & Injection of Left Elbow Joint ; Surgeon: Janet Wood MD; Location: [facility] MAIN OR KNEE ARTHROSCOPY Right 12/05/2014 Procedure: Right Knee Arthroscopy with Partial Medial Menisectomy and Medial- Femoral Tay droplasty; Surgeon: Marty Wood MD; Location: [facility] MAIN OR MANDIBLE SURGERY spinal cord injury CURRENT MEDICATIONS Previous Medications AMPHETAMINE-DEXTROAMPHETAMINE (ADDERALL XR) 30 MG 24 HR CAPSULE take 1 capsule by mouth once daily AMPHETAMINE-DEXTROAMPHETAMINE (ADDERALL) 15 MG TABLET take 1 tablet by mouth once daily if needed CHOLECALCIFEROL (VITAMIN D-3) 1,000 UNITS CAPSULE Take 1 capsule by mouth Daily. CYCLOBENZAPRINE (FLEXERIL) 10 MG TABLET 1 tablet orally 3 times per day DAPAGLIFLOZIN (FARXIGA) 10 MG TABLET Take 1 tablet by mouth Daily. GABAPENTIN (NEURONTIN) 300 MG CAPSULE take 1 capsule by mouth three times a day GLIPIZIDE (GLUCOTROL) 10 MG TABLET take 1 tablet by mouth twice a day GLUCOSE BLOOD TEST STRIPS (TERRI CONTOUR TEST) STRIP Use as dir LISINOPRIL (PRINIVIL, ZESTRIL) 5 MG TABLET Take 5 mg by mouth Daily. METFORMIN (GLUCOPHAGE) 1000 MG TABLET Take 1,000 mg by mouth 2 times daily (with breakf ast & dinner). METHADONE 10 MG TABLET Take 0.5 tablets by mouth every 8 hours as needed. OMEPRAZOLE (PRILOSEC) 20 MG CAPSULE Take 20 mg by mouth every morning (before breakfast ). ONDANSETRON (ZOFRAN) 4 MG TABLET Take 4 mg by mouth every 8 hours as needed for Nausea. OXYCODONE (ROXICODONE) 30 MG IMMEDIATE RELEASE TABLET Take 1 tablet by mouth every 6 ho urs as needed for Pain. SENNA LAX 8.6 MG TABLET take 4 tablets by mouth UP TO 2 TIMES A DAY NEEDED FOR CONST IPATION SIMVASTATIN (ZOCOR) 40 MG TABLET Take 20 mg by mouth nightly. TAMSULOSIN (FLOMAX) 0.4 MG CAPS Take 0.4 mg by mouth daily (after breakfast). ALLERGIES Allergies Allergen Reactions Azithromycin Anaphylaxis Codeine Hives Hydrocodone Hives Sulfa Antibiotics Hives FAMILY HISTORY History reviewed. No pertinent family history. SOCIAL HISTORY Social History Social History Marital status: Single Spouse name: N/A Number of children: N/A Years of education: N/A Social History Main Topics Smoking status: Current Every Day Smoker Packs/day: 0.50 Years: 20.00 Types: Cigarettes, E-Cigarettes Smokeless tobacco: Never Used Alcohol use No Drug use: Frequency: 7.0 times per week Types: Marijuana Sexual activity: Not Asked Other Topics Concern None Social History Narrative None REVIEW OF SYSTEMS Please see HPI, All systems negative except as marked. Twelve point review of system comp leted my me. PHYSICAL EXAM VITAL SIGNS: Temp: 37.2 C (98.9 F) Pulse: 96 Resp: 16 SpO2: 94 % BP: 98/54 Constitutional: Well developed, Well nourished, Non-toxic appearance. Patient is quite em otional secondary to knee pain. Musculoskeletal: Intact distal pulses, No edema, No tenderness, No cyanosis, No clubbing. Good range of motion in all major joints. No tenderness to palpation or major deformities no naina. Significant tenderness right medial knee some fluctuance is noted to the right decrease d range of motion secondary to pain.. Neurologic: Alert & oriented x 3, Normal motor function, Normal sensory function, No focal deficits noted, no facial assymetry noted. Equal rehab tech in all extremities Radiology: X-ray of the right knee does not identify acute fracture. ED COURSE & MEDICAL DECISION MAKING Pertinent Labs & Imaging studies reviewed. (See chart for details) Nursing notes reviewed. Patient encouraged to elevate and ice as much as possible. He is to do range of motion exe rcises as tolerated. He is encouraged follow-up with local orthopedist. At this point biju ent is otherwise stable. Patient currently is on a pain contract and takes methadone chroni pam for chronic pain. Follow-up Information Marty Wood MD In 1 week. Specialty: Orthopedic Surgery Contact information: [address] [place] [id number] FINAL IMPRESSION 1. Internal derangement of right knee Acute Portions of this chart may have been created with [employer] voice recognition software. Occasi onal wrong-word or sound-alike substitutions may have occurred due to the inherent stevens itations of voice recognition software. Please read the chart carefully and recognize, using context, where these substitutions have occurred Stan Espino MD 05/04/17 1407 Kerline Haque RN - 05/04/2017 12:52 PM PDTRight knee pain x4 hours. Chronic RT knee pain after a fall. Previous RT knee surgery 2015Electronically signed by Stacey Barakat RN at 05/04 12:53 PM PDTdocumented in this encounter Plan of Treatment + +------+--------+ + + | Name | Type | Priori | Associated Diagnoses | Date/Time | | | | ty | | | + +------+--------+ + + | ED INFORMATION | SHITAL | Routin | | 05/04/2017 12:44 PM | | EXCHANGE | | e | | PDT | + +------+--------+ + + + + +--------+ + + | Name | Type | Priori | Associated Diagnoses | Order Schedule | | | | ty | | | + + +--------+ + + | * [facility] [place] | Outpatient | Routin | Internal | Ordered: 05/04/2017 | | Orthopedic Surgery - | Referral | e | derangement of right | | | AMB Referral | | | knee | | + + +--------+ + + documented as of this encounter Procedures + +--------+ + + + | Procedure Name | Priori | Date/Time | Associated Diagnosis | Comments | | | ty | | | | + +--------+ + + + | XR KNEE RIGHT 1 - 2 | STAT | 05/04/2017 | | Results for this | | VW | | 1:31 PM | | procedure are in the | | | | PDT | | results section. | + +--------+ + + + | ED INFORMATION | Routin | 05/04/2017 | | | | EXCHANGE | e | 12:44 PM | | | | | | PDT | | | + +--------+ + + + +---+--------+ | | | | | Proced | | | ure | | | Note - | | | Gloria, | | | Lab In | | | | | | Hlseve | | | n - | | | 05/04/ | | | 2016 | | | 12:45 | | | PM PDT | | [...] | | | FICATI | | | ON? | | | | | | 7 | | | 12:42? | | | AVLONI | | | TIS, | | | DENIS | | | OPHER | | | S?MRN: | | | | | | [id number] | | | [id number] | | | his | | | [...] | | | ent/17 | | | [id number] | | | [id number] | | | [id number] | | | [id number] | | | [id number] | | | [id number] | | | [...] | | | int | | | Aug | | | 13, | | | 2017 | | | Provid | | | ence | | | [facility] [place] | | | [place] | | | Emerge | | | ncy | | | Emerge | | | ncy | | | right | | | knee | | | pain | | | Kush[facility] | | | 22, | | | 2017 | | | [facility] | | | [place] | | | Urgent | | | Care | | | [place] | | | [place] | | | Urgent | | | Care | | | | | | Outpat | | | ient | | | Kushal | | | 8, | | | 2017 | | | Provid | | | ence | | | [facility] [place] | | | [place] | | | Emerge | | | ncy | | | Emerge | | | ncy | | | Knee | | | Pain | | | | | | Sprain | | | of | | | medial | | | | | | collat | | | eral | | | ligame | | | nt of | | | right | | | knee, | | | initia | | | l | | | encoun | | | ter | | | | | | Strain | | | of | | | unspec | | | ified | | | muscle | | | (s) | | | and | | | tendon | | | (s) at | | | lower | | | leg | | | level, | | | left | | | leg, | | | initia | | | l | | | encoun | | | ter | | | E.D. | | | [...] | | | Center | | | 2 0 | | | Total | | | 2 0 | | | Note: | | [...] | | | | | | | 7 | | | DEXTRO | | | AMP-AM | | | PHET | | | ER 30 | | | MG CAP | | | 30 | | | KAT | | | DENIS | | | ENSEN | | | 0 | | | | | | 04-11 | | | OXYCOD | | | ONE | | | HCL 30 | | | MG | | | TABLET | | | 180 | | | KAT | | | DENIS | | | ENSEN | | | 2 270 | | | | | | 04-11 | | | DEXTRO | | | AMP-AM | | | PHETAM | | | IN 15 | | | MG TAB | | | 30 | | | KAT | | | DENIS | | | ENSEN | | | 2 0 | | | | | | 04-11 | | | METHAD | | | ONE | | | HCL 10 | | | MG | | | TABLET | | | 480 | | | KAT | | | DENIS | | | ENSEN | | | 2 480 | | | | | | 03-15 | | | DEXTRO | | | AMP-AM | | | PHET | | | ER 30 | | | MG CAP | | | 30 | | | KAT | | | DENIS | | | ENSEN | | | 0 | | | | | | 624 | | | DEXTRO | | | AMP-AM | | | PHETAM | | | IN 15 | | | MG TAB | | | 30 | | | KAT | | | DENIS | | | ENSEN | | | 2 0 | | | | | | 24 | | | METHAD | | | ONE | | | HCL 10 | | | MG | | | TABLET | | | 480 | | | KAT | | | DENIS | | | ENSEN | | | 2 480 | | | 2017 | | | 6-24 | | | OXYCOD | | | ONE | | | HCL 30 | | | MG | | | TABLET | | | 180 | | | KAT | | | DENIS | | | ENSEN | | | 2 270 | | | | | | 5-26 | | | METHAD | | | ONE | | | HCL 10 | | | MG | | | TABLET | | | 480 | | | KAT | | | DENIS | | | ENSEN | | | 2 480 | | | | | | 5-26 | | | DEXTRO | | | AMP-AM | | | PHETAM | | | IN 15 | | | MG TAB | | | 30 | | | KAT | | | DENIS | | | ENSEN | | | 2 0 | | | | | | 526 | | | DEXTRO | | | AMP-AM | | | PHET | | | ER 30 | | | MG CAP | | | 30 | | | KAT | | | DENIS | | | ENSEN | | | 0 | | | | | | 5-26 | | | OXYCOD | | | ONE | | | HCL 30 | | | MG | | | TABLET | | | 180 | | | KAT | | | DENIS | | | ENSEN | | | 2 270 | | | | | | 424 | | | DEXTRO | | | AMP-AM | | | PHET | | | ER 30 | | | MG CAP | | | 30 | | | KAT | | | DENIS | | | ENSEN | | | 0 | | | | | | 4-24 | | | METHAD | | | ONE | | | HCL 10 | | | MG | | | TABLET | | | 480 | | | KAT | | | DENIS | | | ENSEN | | | 2 480 | | | | | | 4-24 | | | DEXTRO | | | AMP-AM | | | PHETAM | | | IN 15 | | | MG TAB | | | 30 | | | KAT | | | DNEIS | | | ENSEN | | | [...] | | | 11-18 | | | OXYCOD | | | [...] | | CS-II | | | Rx 41 | | | Quanti | | | ty | | | Dispen | | | sed | | | [id number] | | | Unique | | | | | | Prescr | | | ibers | | | 1 | | | Unique | | | | | | Pharma | | | cies 1 | | | | | | Benzos | | | 0 | | | Opioid | | | s 24 | | | Long | | | [...] | | | ? | | | 2016 | | | Collec | | | [...] XR Knee Right 1 - 2 Vw (05/04/2017 1:31 PM PDT) + + | Specimen | + + | | + + + + + | Narrative | Performed At | + + + | TWO VIEWS RIGHT KNEE 05/04/2017 1:15 PM CLINICAL HISTORY: KNEE | [facility] | | PAIN COMPARISON: RADIOGRAPHS FEBRUARY 27 FINDINGS: The bones are | | | well-mineralized and well aligned. No fracture or subluxation is | | | evident. Mild, smooth thickening of the posterior, medial cortex of | | | the proximal tibial diaphysis is chronic and likely related to | | | myotendinous attachment. Enthesophytes persist along the inferior | | | patella and tibial tuberosity. There is similar mild medial | | | femorotibial joint space narrowing. A moderate suprapatellar knee | | | effusion is present. IMPRESSION - 1. MODERATE KNEE EFFUSION | | | AND MILD MEDIAL FEMOROTIBIAL JOINT COMPARTMENT NARROWING. | | | Dictated and Signed by: Sabino Coronado MD Electronically signed: | | | 05/04/2017 3:32 PM | | + + + + + | Procedure Note | + + | Gloria, Rad Results In - 05/04/2017 3:35 PM PDT TWO VIEWS RIGHT KNEE 05/04/2017 1:15 PM | | | | CLINICAL HISTORY: KNEE PAIN | | | | COMPARISON: RADIOGRAPHS FEBRUARY 27 | | | | FINDINGS: The bones are well-mineralized and well aligned. No fracture or | | subluxation is evident. Mild, smooth thickening of the posterior, medial cortex | | of the proximal tibial diaphysis is chronic and likely related to myotendinous | | attachment. Enthesophytes persist along the inferior patella and tibial | | tuberosity. There is similar mild medial femorotibial joint space narrowing. A | | moderate suprapatellar knee effusion is present. | | | | IMPRESSION - | | 1. MODERATE KNEE EFFUSION AND MILD MEDIAL FEMOROTIBIAL JOINT COMPARTMENT | | NARROWING. | | | | Dictated and Signed by: Sabino Coronado MD | | Electronically signed: 05/04/2017 3:32 PM | + + + +---------+ + + | Performing | Address | City/State/Zipcode | Phone Number | | Organization | | | | + +---------+ + + | [facility] | | | | + +---------+ + + documented in this encounter Visit Diagnoses + + | Diagnosis | + + | Internal derangement of right knee - Primary Unspecified internal derangement of knee | + + documented in this encounter Administered Medications + +--------+ +------+------+ + | Medication Order | MAR | Action | Dose | Rate | Site | | | Action | Date | | | | + +--------+ +------+------+ + | HYDROmorphone (DILAUDID) 2 | Given | 05/04/20 | 2 mg | | Deltoid- | | mg/mL injection 2 mg 2 mg, | | 17 1:22 | | | Left | | Intramuscular, ONCE, 05/04/17 | | PM PDT | | | | | at 1315, For 1 dose | | | | | | + +--------+ +------+------+ + +---+---+ | | | +---+---+ documented in this encounter"
--- OUTSIDE RECORDS SUMMARY | ~2020-06-16 | XMS | Encounter Summary ---
Demographics + + + | Address | [address] [facility] [facility] | | | [place] [address] | + + + | Home Phone [...] [place], | | | | | [place] [address] | | + + + + + Care Team Providers + +------+ + | Care Concrete Form Setter And Finisher Name | Role | Phone | + +------+ + | Romina Fischer MD | PCP | | + [...] | | | ic | | [facility] | | | | | osteoarthrit | | [place] | | | | | is of left | | [id number] Phone: | | | | | elbow | | [phone] | | | | | Benign | | Fax: | | | | | neoplasm of | | [phone] | | | | | connective | [...] | | | | | | | [[id number]], | | | | | | | Procedures | | | | | | | TN EXPLORE | | | | | | | ELBOW JOINT | | | | | | | TN | | | | | | | BETAMETHASON | | | | | | | E ACET&SOD | | | | | | | PHOSP, 3 MG | | | +--------+--------+ + + + + Encounter Details +--------+ + + + + | Date | Type | Department | Care Team | Description | +--------+ + + + + | 05/14/ | Hospital | [facility] | Marty Wood | Primary | | 2017 | Encounter | [facility] | MD [place] [address] | osteoarthritis of | | | | [address] | [place] | left elbow; | | | | [place] | [id number] | Olecranon bone spur; | | | | [id number] | | Shoulder | | | | [phone] | | impingement, | | | | | | unspecified | | | | | | laterality | +--------+ + + [...] + + + | Blood Pressure | 119/68 | 05/14/2017 1:00 PM | | | | | PDT | | + + + + + | Pulse | 71 | 05/14/2017 1:00 PM | | | | | PDT | | + + + + + | Temperature | 36.6 C (97.9 F) | 05/14/2017 11:31 AM | | | | | PDT | | + + + + + | Respiratory Rate | 16 | 05/14/2017 1:00 PM | | | | | PDT | | + + + + + | Oxygen Saturation | 99% | 05/14/2017 1:00 PM | | | | | PDT | | + + + + + | Inhaled Oxygen | - | - | | | Concentration | | | | + + + + + | Weight | 99.3 kg (219 lb) | 05/14/2017 8:15 AM | | | | | PDT | | + + + + + | Height | 182.9 cm (6') | 05/14/2017 8:15 AM | | | | | PDT | | + + + + + | Body Mass Index | 29.7 | 05/14/2017 8:15 AM | | | | | PDT | | + + + + + documented in this encounter Discharge Instructions Instructions Fidelina Galvan RN - 05/14/2017 Recovery After Procedural Sedation (Adult) You have been given medicine by vein to make you sleep during your surgery. This may have i ncluded both a pain medicine and sleeping medicine. Most of the effects have worn off. But y ou may still have some drowsiness for the next 6 to 8 hours. Home care Follow these guidelines when you get home: For the next 8 hours, you should be watched by a responsible adult. This person should m jackie sure your condition is not getting worse. Don't drink any alcoholfor the next [address], operate dangerous machinery, or make important business or personal decisio nsduring the next 24 hours. Note: Your healthcare [...] You can't be awakened Date Last Reviewed: 07/09/201619997217-0554 [employer]. [address] [place] [address], [place] [address]. All righ ts reserved. This information is not intended as a substitute for professional medical care. Always follow your healthcare professional's instructions. Please keep appointment in Dr Wood's office as already scheduled. Keep bandages in place at left. Keep bandages clean and dry Take pain medication only as prescribed if necessary You can move finger and wrist w/ flexion and extension. You can start performing gentle fl exion and extension of elbow tomorrow You may also benefit from cold therapy at the right elbow If you have questions, comments or concerns please call my office; Dr Wood Do not exceed 4,000 mg of acetaminophen (Tylenol) per day. Hydrocodone-acetaminophen ([place] ) and Oxycodone-acetaminophen (Percocet) have 325 mg [...] encounter H&P Notes Marty Wood MD - 05/14/2017 8:31 AM PDTSURGICAL INTERIM HISTORY & PHYSICAL UPDAT E Pt. Name/Age/: Loy Garcia 47 y.o. 1970 Date of admission: 05/14/2017 The current H&P was reviewed. The patient [...] obtained. Electronically signed by: Marty Wood MD, 05/14/2017 8:31 [facility] Marty Singh MD - 05/08/2017 2:30 PM PDT History of present illness: Loy is a 47 y.o. male who presents to our clinic today for a preop examination. Loy is scheduled for a left elbow arthrotomy and open debri bruno as well as injection of both shoulders on 05/14/17. He has a several year history of progressive left elbow pain and stiffness with x ray evidence of increasing elbow arthritis with degenerative osteophytosis. In addition, he has symptomatic bilateral shoulder impinge ment syndrome and therefore is a candidate for combined left elbow open debridement with luis felipe ateral shoulder sub-acromial space injection. Past Medical History: Diagnosis Date Adverse effect of anesthesia Slow to wake up Diabetes mellitus (HCC) Elevated cholesterol Emphysema of lung (HCC) GERD (gastroesophageal reflux disease) Immune deficiency disorder (HCC) Lab results placed in chart regarding [id number] Phenotype. Osteoporosis PONV (postoperative nausea and vomiting) Seizure (HCC) Testosterone deficiency Vitamin D deficiency Past Surgical History: Procedure Laterality Date ELBOW SURGERY Left 11/15/2015 Procedure: Left Lateral Epicondylar Release & Injection of Left Elbow Joint ; Surgeon: Janet Wood MD; Location: [facility] MAIN OR KNEE ARTHROSCOPY Right 12/05/2014 Procedure: Right Knee Arthroscopy with Partial Medial Menisectomy and Medial- Femoral Tay droplasty; Surgeon: Marty Wood MD; Location: [facility] MAIN OR MANDIBLE SURGERY spinal cord [...] Units by mouth Daily.) 90 capsule 3 cyclobenzaprine (FLEXERIL) 10 mg tablet 1 tablet orally 3 times per day 90 tablet 2 dapagliflozin (FARXIGA) 10 mg tablet Take 1 tablet by mouth Daily. (Patient taking diff erently: Take 10 mg by mouth Daily. Was put of jardiance, but will be restarting) 30 tablet 1 gabapentin (NEURONTIN) 300 mg capsule take 1 [...] mouth every 8 hours as needed. (Patient taki ng differently: Take 80 mg by mouth [...] mg by mouth daily (after breakfast). 0 No current facility-administered medications on file prior to visit. No family history on file. Social History [...] No narrative on file Review of Systems This has been reviewed. All other entries are negative except for those checked below. LEIDA ESCOBAR Eyes: [x] Double vision [x] Glasses/contacts [x] Failing vision Ear/Nose/Throat: [] Frequent Colds [] Sinus Disease [] Nose obstruction [] Sneezing Spells [x] Change in taste [x] Artificial teeth [] Ears ringing [] Ear pain [] Hearing loss [x] Teeth problems [] Hoarseness [] Neck swelling [] Sore throat [] Congestion [] Nosebleeds [] Nasal allergies Respiratory: [x] Asthma/Wheezing [] Pneumonia [x] Night sweats [] Shortness of breath [] Chronic cough [] Coughing up blood [] Exposure to tuberculosis Cardiovascular: [] Heart Problems [] Hypertension [x] Heart murmur [] Palpitations [] Rheumatic fever [] Phlebitis [] Chest pain [] Ankle swelling [] Leg cramps [] Racin g heart [] Skipping beats [] Blood clots Gastrointestinal: [] Abdominal pain [x] Heartburn [] Blood from rectum [] Colitis [] Gallbladder problems [] Troubl e swallowing [] Bloated stomach [] Change in stools [] Vomiting blood [] Nausea [] Hemorrhoids [] Jaundice [ ] Hepatitis [] Diarrhea [] Constipation [] Diverticulitis Urinary Tract: [] Painful urination [] Kidney Stones [] Any urine leakage [x] Weak urine stream [] Night urination [] Urine infections [] Bedwetting [] Blood in urine Skin: [x] Skin rashes [x] Itching/Burning [] Skin bruises eas sammi [] Artificial tanning [] Skin cancer [] Hair loss [] Changes in moles Musculoskeletal: [x] Physical handicaps [x] Back or shoulder pain [x]Rheumatoid disease [x] Osteoarthritis [x] Joint pain [x] Joint swelling []Gout [x] Leg cramps at night Neurological: [x] Headaches [x] Seizures [] Stroke/TIA [x] Faintness [] Tremors [x] Numbness [x] Dizziness [] Changes in handwriting [x] Memory loss [x] Shooting pains Psychiatric: [] Depression [] Suicidal thoughts [] Sleep pattern changes [] Appetite changes [] Recent counseling [x] Nervousness/anxiety [] Physical violence [] Marital problems Endocrine: [] Thyroid [x] Diabetes Systemic: []Weight loss/gain (over 10 lbs) []Fever/chills [x]Fatigue [x] Sleeping Difficulties [] Speech change [] Voice change Vitals: 05/08/17 1451 BP: 109/57 Pulse: 79 Resp: 24 Temp: 36.9 C (98.4 F) PainSc: 8 PainLoc: Leg Estimated body mass index is 29.84 kg/m as calculated from the following: Height as of this encounter: 1.829 m (6'). Weight as of this encounter: 99.8 kg (220 lb). Physical examination:Patient is alert and oriented and in no acute distress. Inspection reveals: Skin is warm dry and intact with no gross deformity. Head: Oral pharnyx nonerythematous nonedematous no exudate noted. He is edentulous. Neck: Supple nontender without any lymphadenopathy. Heart: Regular rate and rhythm. Lungs: Clear to auscultation. Abdomen: Soft nontender no masses organomegaly. Cranial nerves 2-12 grossly intact. Musculoskeletal: His left elbow ROM is 25 to 110 degrees. He has bilateral shoulder pain with abduction above 90 degrees. NV function is intact to both hands. Assessment: Left elbow osteoarthrosis. Bilateral shoulder impingement syndrome. Plan: The patient is scheduled for a left elbow arthrotomy with joint debridement and bilat eral shoulder sub-acromial space injection on 05/14/17. Therefore, the planned procedure wit h its risks, possible complications, expected prognosis, and treatment alternatives was disc ussed with the patient. Risks and possible complications were listed but not limited to inf ection, nerve and vessel damage, bleeding, pain, scarring, stiffness, residual symptoms holden ining after surgery, and the risk of anesthesia including . No guarantees were given o r implied other than that of diligent effort. documented in th is encounter Miscellaneous Notes Op Note - Marty Wood MD - 05/14/2017 11:30 AM PDT [address] [address] OPERATIVE REPORT MARTY WOOD MD Patient: LOY GARCIA Admitting: MARTY WOOD MR #: [id number] LOC: PT TYPE: Adm Date: 05/14/2017 : 1970 DATE OF THE SURGERY AND DATE OF DICTATION: 05/14/2017. OPERATING SURGEON: Marty Wood MD. MANUFACTURE SPECIALIST: ALCIRA Adame. ANESTHESIOLOGIST: Jevon Suárez MD. PREOPERATIVE DIAGNOSIS: 1. Degenerative change with osteophytosis, left elbow. 2. Proximal dorsal ulnar osteophyte, left elbow. 3. Bilateral shoulder impingement syndrome. POSTOPERATIVE DIAGNOSIS: 1. Degenerative change with osteophytosis, left elbow. 2. Proximal dorsal ulnar osteophyte, left elbow. 3. Bilateral shoulder impingement syndrome. TITLE OF OPERATION: 1. Left elbow arthrotomy with joint debridement and removal of olecranon and coronoid spu rs. 2. Resection of proximal dorsal ulnar osteophyte. 3. Injection of bilateral shoulder subacromial spaces with 2 mL Celestone and 8 mL 0.5 pe rcent ropivacaine in each shoulder. HISTORY AND REASON FOR SURGERY: The patient is a 47-year-old male with a variety of medic al comorbidities including diabetes mellitus, elevated cholesterol, lung emphysema, seizure disorder, and kidney failure who has a several year history of progressive left elbow pain and stiffness with x-ray evidence of increasing elbow arthritis and degenerative osteophy tosis. In addition, he has also noted an enlarging mass over the dorsal proximal ulna that is becoming increasingly tender. In addition, he also has bilateral shoulder impingement syndrome and would like to have all issues addressed while he is under anesthesia, which is felt to be appropriate and therefore the planned procedures with the risks, possible comp lications, expected prognosis, and treatment alternatives were discussed with the patient. Risks and possible complications were listed, but not limited to, infection, nerve and ve ssel damage, bleeding, pain, scarring, stiffness, possibility of residual symptoms remainin g after surgery, and the risk of anesthesia. He verbalized understanding. No guarantees we re given or implied other than that of diligent effort. OPERATIVE PROCEDURE: After the patient signed the consent for surgery, he underwent a lef t upper extremity supraclavicular block. He was then brought into the operating room where he underwent general anesthesia successfully. At this juncture, the middle column of the surgical safety checklist was carried out by the surgical team. We then proceeded to inje ct both shoulder subacromial spaces, after prepping the shoulders with Chloraprep. These w ere both injected with a 10 mL volume including 2 mL Celestone and 8 mL 0.5 percent ropivac emma. The injection sites were dressed with Band-Aids. At this juncture, the patient was then carefully placed in the prone position using the [facility] laminectomy frame and appropriately padded and stabilized with axillary rolls and padd ing of his upper and lower extremities. The entire left upper extremity was prepped with a lcohol and DuraPrep and draped in the usual free and sterile manner. A sterile tourniquet was applied. At this time, the middle column of the surgical safety checklist was again c arried out by the surgical team. We then exsanguinated the left upper extremity with an Es march bandage and inflated the tourniquet to 250 mmHg with a tourniquet time of a little o myrtle 1/2 hour. We first made an incision starting at the olecranon process and angling proximally for a l ength of approximately 7 cm. We carried the incision down through a thick amount of subcut aneous tissue to the distal triceps tendon, which was divided in line with the incision phyllis gitudinally. This exposed the olecranon fossa. We encountered a large posterior olecranon spur, which was removed with a 1/2 inch osteotome. We then used the 17 mm diameter Clowar d core drill to drill through the olecranon fossa where the bone was thin and out to the an terior aspect of the elbow. We removed the plug of bone. We then were able to visualize and palpate a relatively large coronoid spur, which was then divided with a 1/4 inch osteot ome and removed with a rongeur. Once this was completed, we then extended our incision pro ximally over the very proximal ulna, directly where there was a large ulnar prominence. Th is was exposed sharply and we then removed the prominence with the use of rongeurs and the n a 5 mm high-speed bur was used to smooth over the sharp bony edges. We also removed the portion of the thickened subcutaneous tissue that had hypertrophied over the bony prominenc e so that it was thoroughly decompressed. Once this was all completed, we released the tourniquet, with a tourniquet time of a littl e over half hour. We secured hemostasis with cautery of both surgical sites. We irrigated the wounds thoroughly and copiously and commenced closure. The muscle fascia of both inci sions was then closed with 0 Vicryl, subcutaneous tissues with 3-0 Vicryl, and the skin wi th 3-0 nylon. We injected a total of 10 mL into both of the incision sites of 0.5 percent ropivacaine. The wounds were then dressed with Xeroform gauze, dry gauze fluffs, Kerlix, a nd then a 4-inch Wily wrap was applied. The patient was placed back in a supine position. Anesthesia was terminated. He was transported to the recovery room in a stable condition. There were no immediate postoperative complications. BLOOD LOSS: About 10 mL. BLOOD REPLACED: None. SPECIMENS: None. FINDINGS: Same as postoperative diagnosis. PROGNOSIS: Good. MATRY WOOD MD Dictated by MARTY WOOD MD 05/14/2017 11:30:11 Transcribed on 05/14/2017 12:28:28 by polly job# [id number] Confirmation #: [id number] cc: ROMINA FISCHER MD p Note - Marty Mckeon MD - 05/14/2017 11:30 AM PDTOp note dictation # [id number]. documented in this encounter Plan of Treatment Not on filedocumented as of this encounter Procedures + +--------+ + + + | Procedure Name | Priori | Date/Time | Associated Diagnosis | Comments | | | ty | | | | + +--------+ + + + | RELEASE CUBITAL | | 05/14/2017 | Post-traumatic | | | TUNNEL | | 9:46 AM | osteoarthritis of | | | | | PDT | left elbow Benign | | | | | | neoplasm of | | | | | | connective and other | | | | | | soft tissue, | | | | | | unspecified | | + +--------+ + + + | POC GLUCOSE | Routin | 05/14/2017 | | Results for this | | | e | 8:42 AM | | procedure are in the | | | | PDT | | results section. | + +--------+ + + + | LABS - EXTERNAL SCAN | | 03/12/2017 | | Results for this | | | | 12:00 AM | | procedure are in the | | | | PDT | | results section. | + +--------+ + + + documented in this encounter Results POC Glucose (05/14/2017 8:42 AM PDT) + +-------+ + + + | Component | Value | Ref Range | Performed | Pathologist | | | | | At | Signature | + +-------+ + + + | Glucose, | 97 | 70 - 109 mg/dL | [facility] [...] [address] | [place] | [phone] | | [facility] | | [address] | | | - LABORATORY | | | | + + + + + LABS - EXTERNAL SCAN (03/12/2017 12:00 AM PDT) + + + | Narrative | Performed At | + + + | Ordered by an | | | unspecified provider. | | + + + documented in this encounter Visit Diagnoses + + | Diagnosis | + + | Primary osteoarthritis of left elbow Primary localized osteoarthrosis, upper arm | + + | Olecranon bone spur | + + | Shoulder impingement, unspecified laterality | + + documented in [...] ONCE PRN, Wheezing, | | | Starting Fri05/14/17 at 0830, | | | For 1 dose, Pre-op | | + +---+ | | | + +---+ | albuterol-ipratropium (DUONEB) | | | 2.5-0.5 mg/3 mL nebulizer | | | solution 3 mL 3 mL, | | | Nebulization, ONCE PRN, Wheezing, | | | Shortness of Breath, Starting | | | Fri05/14/17 at 1113, For 1 dose, | | | Recovery/Phase [...] glucose < 50, | | | Starting Fri05/14/17 at 0830, | | | Repeat in 15 min [...] HOURS PRN, Itching, | | | Starting Fri05/14/17 at 1143, | | | Give nalbuphine 1st, if [...] HOURS PRN, | | | Itching, Starting Fri05/14/17 at | | | 1143, Give nalbuphine 1st, if | | | ineffective or not ordered, | | | administer diphenhydrAMINE. | | | Oral route is preferred., | | | Post-op/Phase II | | + +---+ | | | + +---+ | diphenhydrAMINE (BENADRYL) | | | tablet 25 mg 25 mg, Oral, EVERY | | | 4 HOURS PRN, Itching, Starting | | | Fri05/14/17 at 1143, Give | | | nalbuphine 1st, if [...] if SBP <90., Starting | | | Fri05/14/17 at 1113, Hold if HR > | | | 100. Maximum total dose 20mg., | | | Recovery/Phase I | | + +---+ | | | + +---+ | fentaNYL (PF) injection 25-50 | | | mcg 25-50 mcg, Intravenous, | | | EVERY 5 MIN PRN, Pain, Starting | | | Fri05/14/17 at 1113, Maximum | | | total dose 250 [...] | | | + +---+ | glycopyrrolate (MANUEL) | | | injection 0.2 mg 0.2 mg, | | | Intravenous, PRN, Bradycardia, | | | For HR <50, Starting Fri05/14/17 | | | at 1113, For 2 doses, May repeat | | | one time after 1min, | | | Recovery/Phase I | | + +---+ | | | + +---+ | hydrALAZINE (APRESOLINE) | | | injection 5 mg 5 mg, | | | Intravenous, EVERY 20 MINUTES | | | PRN, For SBP > 180, DBP > 100, | | | Starting Fri05/14/17 at 1113, | | | Hold if HR > 100. Maximum total | | | dose 40 mg. Use labetalol first | | | if available., Recovery/Phase I | | + +---+ | | | + +---+ | HYDROmorphone (DILAUDID) | | | injection 0.2-0.5 mg 0.2-0.5 mg, | | | Intravenous, EVERY 5 MIN PRN, | | | Pain, Starting Fri05/14/17 at | | | 1113, Maximum total dose 4 mg. | | [...] +---+ | HYDROmorphone (DILAUDID) | | | solution 4 mg 4 mg, Oral, EVERY | | | 6 HOURS PRN, pain, Starting Wed | | | 05/14/17 at 1341, Post-op/Phase II | | + +---+ | | | + +---+ + +-------+ +------+---+---+ | HYDROmorphone (DILAUDID) tablet | Given | 05/14/20 | 4 mg | | | | 4 mg 4 mg, Oral, EVERY 6 HOURS | | 17 1:51 | | | | | PRN, Pain, Starting 05/14/17 | | PM PDT | | | | | at 1150, Post-op/Phase II | | | | | | + +-------+ +------+---+---+ + +---+ | | | + +---+ | labetalol (TRANDATE) 5 mg/mL | | | injection 5 mg 5 mg, | | | Intravenous, EVERY 5 MIN PRN, For | | | SBP > 180, DBP > 100, Starting | | | Fri05/14/17 at 1113, Hold if HR < | | | 60. Maximum total dose 300mg. | | | Notify anesthesia if patient | | | requires more than 50mg., | | | Recovery/Phase I | | + +---+ | | | + +---+ + +---------+ +---+---+---+ | lactated ringers (LR) infusion | New Bag | 05/14/20 | | | | | at 10-100 mL/hr, Intravenous, | | 17 11:19 | | | | | CONTINUOUS, Starting Fri05/14/17 | | AM PDT | [...] PDT | | | | +---------+ +--------+-------+---+ + +---+ | | | + +---+ | meperidine (DEMEROL) injection | | | 12.5-25 mg 12.5-25 mg, | | | Intravenous, PRN, Shivering, | | | Starting 05/14/17 at 1113, For | | | 2 doses, May Repeat once in 5 | | | min., Recovery/Phase I | | + +---+ | | | + +---+ | metoclopramide (REGLAN) 5 mg/mL | | | injection 10 mg 10 mg, | | | Intravenous, EVERY 6 HOURS PRN, | | | Nausea, Vomiting, Starting Wed | | | 05/14/17 at 1113, Protect from | | | light., Recovery/Phase I | | + +---+ | | | + +---+ | ondansetron (ZOFRAN ODT) | | | disintegrating tablet 4 mg 4 mg, | | | Oral, EVERY 6 HOURS PRN, Nausea, | | | Vomiting, Starting Fri05/14/17 | | | at 1143, First line agent, | | | Post-op/Phase II | | + +---+ | | | + +---+ | ondansetron (ZOFRAN) injection | | | 4 mg 4 mg, Intravenous, ONCE | | | PRN, Nausea, Starting Fri05/14/17 | | | at 1113, For 1 dose, | | | Recovery/Phase I | | + +---+ | | | + +---+ | ondansetron (ZOFRAN) injection | | | 4 mg 4 mg, Intravenous, EVERY 6 | | | HOURS PRN, Nausea, Vomiting, | | | Starting Fri05/14/17 at 1143, | | | First line agent. Use PO option | | | unless NPO status or unable to | | | tolerate., Post-op/Phase II | | + +---+ | | | + +---+ + +---------+ +---------+---+ + | scopolamine (TRANSDERM-SCOP) 1 | Patch | 05/14/20 | 1 patch | | Ear-Behi | | mg/3 days 1 patch 1 patch, | Applied | 17 8:48 | | | nd Left | | Transdermal, PRN, adult patients | | AM PDT | | | | | with history of PONV, Starting | | | | | | | Fri05/14/17 at 0830, For 1 dose, | | | | | | | PRN for adult patients <65 yo | | | | | | | with history of PONV. Hold for | | | | | | | patients with glaucoma, dementia, | | | | | | | altered mental status, or | | | | | | | history of allergy to | | | | | | | Scopolamine. Apply to mastoid | | | | | | | process behind ear., Pre-op | | | | | | + +---------+ +---------+---+ + + +---+ | | | + +---+ | sodium chloride 0.9% (NS) | | | infusion at 10-100 mL/hr, | | | Intravenous, CONTINUOUS, Starting | | | Fri05/14/17 at 0900, TKO. Use | | | this instead of LR if patient is | | | on dialysis., Pre-op | | + +---+ | | | + +---+ documented in this encounter"
--- OUTSIDE RECORDS SUMMARY | ~2020-06-16 | XMS | Encounter Summary ---
Demographics + + + | Address | [address] | | | [place] [address] | + + + | Home Phone [...] [place], | | | | | [place] [address] | | + + + + + Care Team Providers + +------+ + | Care Campus Receptionist Name | Role | Phone | + [...] Closed | | Radiology | Diagnoses | Keven, | | | | | | Karlee | Cliff | | | | | | internal | MD Rolando | | | | | | derangement | [address] | | | | | | of | [address] | | | | | | knee(717.89) | [place], | | | | | | Pain | [place] [address] | | | | | | Procedures | Phone: | | | | | | MRI Knee | [phone] | | | | | | Right wo | Fax: | | | | | | Contrast | [phone] | | +--------+--------+ + + + + Reason for Visit Diagnostic/Screening (Routine) +--------+--------+ + + + + | Status | Reason | Specialty | Diagnoses / | Referred By | Referred To | | | | | Procedures | Contact | Contact | +--------+--------+ + + + + | Closed | | Radiology | Diagnoses | Keven | | | | | | Karlee | Cliff | | | | | | internal | MD Rolando | | | | | | derangement | [address] | | | | | | of | [address] | | | | | | knee(717.89) | [place], | | | | | | Pain | [place] [address] | | | | | | Procedures | Phone: | | | | | | MRI Knee | [phone] | | | | | | Right wo | Fax: | | | | | | Contrast | [phone] | | +--------+--------+ + + + + Encounter Details +--------+ + + + + | Date | Type | Department | Care Team | Description | +--------+ + + + + | 07/22/ | Hospital | [facility] | Cliff Baca | Other internal | | 2014 | Encounter | MED CTR MRI [address] | MD Rolando [address] | derangement of | | | | [place], | [address] | knee(717.89); Pain | | | | [place] [address] | [place] [address] | | | | | [phone] | [phone] | | | | | | | [...] documented as of this encounter Miscellaneous Notes Miscellaneous - NALDO HIRSCH - 08/05/2014 12:00 AM PST documented in this encounter Plan of Treatment Not on filedocumented as of this encounter Procedures + +--------+ + + + | Procedure Name | Priori | Date/Time | Associated Diagnosis | Comments | | | ty | | | | + +--------+ + + + | MRI KNEE RIGHT WO | Routin | 07/22/2014 | Other internal | Results for this | | CONTRAST | e | 4:12 PM | derangement of | procedure are in the | | | | PDT | knee(717.89) Pain | results section. | + +--------+ + + + documented in this encounter Results MRI Knee Right wo Contrast (07/22/2014 4:12 PM PDT) + + | Specimen | + + | | + + + + + | Narrative | Performed At | + + + | MRI KNEE RIGHT WO CONTRAST 07/22/2014 3:12 PM HISTORY: RT | MISCELANIOUS | | KNEE PAIN AND INTERNAL DERANGEMENT. COMPARISON: None. | LAB | | PROTOCOL: Axial proton density fat sat, sagittal proton density, | | | coronal proton density fat sat, coronal T1, sagittal T2 fat sat. | | | FINDINGS: The ACL, PCL, quadriceps tendon, and patellar tendon are | | | intact. There are several tiny tears involving the body of the | | | medial meniscus extending to the medial surface that measure up to | | | 0.3 cm. The lateral meniscus demonstrates discoid morphology with no | | | evidence for tear. The MCL, LCL complex, medial retinaculum, and | | | lateral retinaculum are intact. Pes anserinus and popliteus are | | | normal. The anterior and posterior compartment musculature are | | | unremarkable. Articular cartilages are normal. There is normal | | | osseous signal. No significant knee joint effusion is seen. | | | There is a small amount of subcutaneous edema anteriorly. | | | IMPRESSION - Several tiny tears of medial meniscus body. Discoid | | | lateral meniscus with no evidence for tear. This type of morphology | | | increases the risk of tear. Dictated and Signed by: Kyle Peoples | | | Electronically signed: 07/22/2014 4:47 PM | | + + + + + | Procedure Note | + + | Kiko, Rad Results In - 07/22/2014 4:51 PM PDT MRI KNEE RIGHT WO CONTRAST 07/22/2014 | | 3:12 PM HISTORY: RT KNEE PAIN AND INTERNAL DERANGEMENT.COMPARISON: None.PROTOCOL: Axial | | proton density fat sat, sagittal proton density, coronal protondensity fat sat, coronal | | T1, sagittal T2 fat sat.FINDINGS:The ACL, PCL, quadriceps tendon, and patellar tendon | | are intact.There are several tiny tears involving the body of the medial meniscus | | extendingto the medial surface that measure up to 0.3 cm. The lateral | | meniscusdemonstrates discoid morphology with no evidence for tear.The MCL, LCL complex, | | medial retinaculum, and lateral retinaculum are intact.Pes anserinus and popliteus are | | normal. The anterior and posterior compartmentmusculature are unremarkable.Articular | | cartilages are normal.There is normal osseous signal.No significant knee joint effusion | | is seen.There is a small amount of subcutaneous edema anteriorly.IMPRESSION -Several | | tiny tears of medial meniscus body.Discoid lateral meniscus with no evidence for tear. | | This type of morphologyincreases the risk of tear.Dictated and Signed by: Kyle Peoples, | | Electronically signed: 07/22/2014 4:47 PM | |demonstrates discoid morphology with no evidence for tear. | | | |The MCL, LCL complex, medial retinaculum, and lateral retinaculum are intact. | |Pes anserinus and popliteus are normal. The anterior and posterior compartment | |musculature are unremarkable. | | | |Articular cartilages are normal. | | | |There is normal osseous signal. | | | |No significant knee joint effusion is seen. | | | |There is a small amount of subcutaneous edema anteriorly. | | | |IMPRESSION - | |Several tiny tears of medial meniscus body. | | | |Discoid lateral meniscus with no evidence for tear. This type of morphology | |increases the risk of tear. | | | |Dictated and Signed by: Kyle Peoples MD | | Electronically signed: 07/22/2014 4:47 PM | + + + +---------+ + + | Performing | Address | City/State/Zipcode | Phone Number | | Organization | | | | + +---------+ + + | [facility] | | | [phone] | + +---------+ + + | [facility]ISCEL[facility] LAB | | | [phone] | + +---------+ + + documented in this encounter Visit Diagnoses + + | Diagnosis | + + | Other internal derangement of knee(717.89) Other internal derangement of knee | + + | Pain Generalized pain | + + documented in this encounter"
--- OUTSIDE RECORDS SUMMARY | ~2020-06-16 | XMS | Encounter Summary ---
Demographics + + + | Address | [address] | | | [place] [address] | + + + | Home Phone | | + + + | Preferred Language | Unknown | + + + | Marital Status | | + + + | Jew Affiliation | Unknown | + + + | Race | White | + + + | Ethnic Group | Not or | + + + Author + + + | Author | [facility] | | | and [place] | + + + | Organization | [facility] | | | [...] [place], | | | | | [place] [address] | | + + + + + Care Team Providers + +------+ + | Care Burning Plant Operator Name | Role | Phone | [...] | | | | | | | Lateral | | | | | | | epicondyliti | | | | | | | s of left | | | | | | | elbow | | | | | | | 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 | | | | | | | elbow | | | | | | | Lateral | | | | | | | epicondyliti | | | | | | | s of left | | | | | | | elbow | | | | | | | [M77.12], | | | | | | | 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 | | | | | | | elbow | | | | | | | [M19.122] | | | | | | | Procedures | | | | | | | WA TENOTOMY | | | | | | | ELBOW | | | | | | | LATERAL/MEDI | | | | | | | AL | | | | | | | PERCUTANEOUS | | | | | | | WA | | | | | | | ARTHROTOMY/C | | | | | | | APULE | | | | | | | RELEASE | | | | | | | ELBOW JT [place] | | | | | | | EXCIS/CURET | | | | | | | BENIGN | | | | | | | ELBOW LESN | | | | | | | [place] TENOTOMY | | | | | | | ELBOW | | | | | | | LATERAL/MEDI | | | | | | | AL DEBRIDE | | | | | | | OPEN [place] | | | | | | | TENOTOMY | | | | | | | ELBOW | | | | | | | LATERAL/MEDI | | | | | | | AL DEBRIDE | | | | | | | REPAIR | | | | | | | RELEASE | | | | | | | ELBOW | | | | | | | EPICONDYLAR | | | | | | | /LOOSE BODY | | | +--------+--------+ + + + + Encounter Details +--------+ + + + + | Date | Type | Department | Care Team | Description | +--------+ + + + + | 11/15/ | Anesthesia | [facility] | Stephen Kumar | | | 2016 | Event | [facility] | MD Luis Felipe [address] | | | | | [address] | [address] [place] [place] | | | | | [place] | [address] | | | | | [address] | | | | | | [phone] | | | +--------+ + + + + Anesthesia Record + + + + + | Procedure Name | Responsible | Anesthesia Start | Anesthesia Stop Time | | | Anesthesiologist | Time | | + + + + + | Left Lateral | Stephen Briscoe José, | 11/15/1514 | 11/15/15 1047 | | Epicondylar Release | MD | | | | & Injection of Left | | | | | Elbow Joint (Left | | | | | Elbow) | | | | + + + + + +----+---+ + + | Da | T | Event | Comment | | te | i | | | | | m | | | | | e | | | +----+---+ + + | 02 | 0 | | | | /2 | 9 | | | | 4/ | 0 | | | | 20 | 2 | | | | 16 | | | | +----+---+ + + | | 0 | An Checkout | Pre-use anesthesia machine/equipment checkout. | | | 9 | | | | | 0 | | | | | 3 | | | +----+---+ + + | | 0 | An Start | Versed 2 mg IV then to OR 4 with sedated patient Reassessment | | | 9 | | prior to anesthesia induction/procedure. | | | 1 | | | | | 4 | | | +----+---+ + + | | 0 | an yue now | | | | 9 | | | | | 1 | | | | | 7 | | | +----+---+ + + | | 0 | Antibiotic | | | | 9 | Given | | | | 2 | | | | | 1 | | | +----+---+ + + | | 0 | Preoxygenat | | | | 9 | ed | | | | 2 | | | | | 6 | | | +----+---+ + + | | 0 | An | | | | 9 | Induction | | | | 2 | | | | | 8 | | | +----+---+ + + | | 0 | An | | | | 9 | Intubation | | | | 2 | | | | | 9 | | | +----+---+ + + | | 0 | AN Bite | | | | 9 | Block | | | | 3 | | | | | 0 | | | +----+---+ + + | | 0 | Flowood | | | | 9 | 43-degrees | | | | 3 | | | | | 4 | | | +----+---+ + + | | 0 | First | | | | 9 | Inc/Proc St | | | | 4 | | | | | 1 | | | +----+---+ + + | | 0 | An Tourn | | | | 9 | Inflated | | | | 4 | | | | | 2 | | | +----+---+ + + | | 1 | An Tourn | | | | 0 | Deflated | | | | 1 | | | | | 3 | | | +----+---+ + + | | 1 | Flowood off | | | | 0 | | | | | 2 | | | | | 5 | | | +----+---+ + + | | 1 | Extubated | | | | 0 | Awake | | | | 4 | | | | | 2 | | | +----+---+ + + | | 1 | An Stop | Patient handed off to recovery nurse. | | | 4 | | | | | 7 | | | +----+---+ + + | | 1 | Block Start | | | | 1 | | | | | 4 | | | | | 7 | | | +----+---+ + + | | 1 | Block Start | | | | 1 | | | | | 4 | | | | | 7 | | | +----+---+ + + | | 1 | AN Block | | | | 1 | End | | | | 5 | | | | | 4 | | | +----+---+ + + +------+ | Meds | +------+ + +--------+ | Name | Total | + +--------+ | midazolam | 2 mg | + +--------+ | lidocaine 2% (PF) | 120 mg | + +--------+ | propofol | 150 mg | + +--------+ | ondansetron | 4 mg | + +--------+ | ceFAZolin in dextrose (ANCEF) | 2 g | | IVPB 2 g | | + +--------+ | HYDROmorphone | 1 mg | + +--------+ | bupivacaine 0.5% + epi 1:200k | 5 mL | + +--------+ | ropivacaine 0.5% | 10 mL | + +--------+ | lactated ringers (LR) infusion | 700 mL | + +--------+ + + | [...] Read | 12/05/14; 1133; Right:; knee; | 03/16/15 1133 by | 08/08/17 0841 by | | only - | ice pack placed on knee; | Marco Livingston RN | Mónica Cabrera, | | | 08/08/17; 0841 | | RN | | Incisi | | | | | on | | | | +--------+ + + + | Periph | 11/15/15; 0919; [id number] | 11/15/15 09 by | 11/15/15 1354 by | | eral | catheter system; 20 gauge; 1; | Stephen Kumar, | Mónica Cabrera, | | IV | distraction; sterile tape strips, | MD | RN | | | secured with; 11/15/15; 1354 | | | +--------+ + + + | Read | 11/15/15; 1005; Left; elbow; | 11/15/15 1005 by | 08/08/17 0841 by | | only - | 08/08/17; 0841 | Mansoor Ridley RN | Mónica Cabrera, | | | | | RN | | Incisi | | | | | on | | | | +--------+ + + + documented in this encounter Social History + + + +--------+ + [...] as of this encounter [place] Notes Anesthesia Procedure Notes - Stephen Kumar MD - 11/15/2015 1:00 PM PSTAssociated Ord er(s): ANESTHESIA BLOCKProcedure Note Anesthesia Block Procedure: Interscalene Block Right, Approach: Posterior Technique used to guide the needle to the proximity of the nerve, appropriate space, or fas cial plane: Ultrasound Guided. Single-Shot, Incremental Injection Incremental Injection Volu me: 3. Ultrasound image(s) saved in patient's chart. Indication: Post-Op Pain Management. Block requested by surgeon or patient. Pre-procedure Events: Patient Identified, Pre-op Evaluation Completed, Airway Assessed, Ris ks and Benefits Discussed, Procedure Consent Obtained and Timeout Performed. Patient Positioning: Supine Prep: ChloraPrep used. Skin Local Anesthetic: Lidocaine 1% Needle: 22 G Stimuplex (6 in and 4 in). Ease: Easy Attempts: 1 Note: Negative Blood Aspirated, Paresthesia and Test Dose. Risks and benefits of right in terscalene nerve block discussed with patient. He Agrees to proceed, answered all questions. Right shoulder identified and marked. Time out taken, Chloroprep for 30 seconds. Ultrasou nd utilized to identify the nerve and artery structures. 3 cc of 2% lidocaine was used to nu mb the skin and subcutaneous tissues. Utilizing the ultrasound and under direct and continuo us guidance, A 22 ga Stimuplex needle was used and directed towards the nerve structures. Th e tip of the needle was placed near the nerves and a 3 cc test dose given after negative asp iration. A total of 15 ml of local anesthetic was given in a divided dose fashion, with aspi ration and a pause between injections. The patient tolerated the procedure well, no complica tion was noted. 11:47 to 11:54 on 15 Nov 2015 [id number] Use of Ultrasound 23769 Interscalene Block Performed by: Performing Provider: STEPHEN KUMAR Electronically Signed by: Stephen Kumar MD ESig date/time: 11/15/2015 13:02 nesthesia Postpro cedure Evaluation - Stephen Kumar MD - 11/15/2015 10:50 AM PST ANESTHESIA POSTANESTHESIA EVALUATION Cecilio Arias 45 y.o. male 1970 [id number] Procedure(s) Left Lateral Epicondylar Release & Injection of Left Elbow Joint (Left Elbow ) Filed Vitals: 11/15/15 0756 11/15/15 1044 11/15/15 1045 BP: 141/66 135/78 150/76 Pulse: 91 101 104 Temp: 36.9 C (98.4 F) 36.8 C (98.2 F) Resp: 18 11 18 SpO2: 96% 97% 98% Cooperates? Yes Mental Status Performs simple tasks. Respiratory Satisfactory - Airway patent (self maintained). Cardiovascular Satisfactory Blood pressure and heart rate acceptable Temperature Satisfactory Pain Satisfactory N/V Control Satisfactory Hydration Satisfactory No signs of dehydration Complications None apparent Electronically signed by Stephen Kumar MD 11/15/2015 10:50 [facility] nesthesia Preproc edure Evaluation - Stephen Kumar MD - 11/15/2015 8:14 AM PSTFormatting of this note m ight be different from the original. ANESTHESIA PREANESTHESIA EVALUATION Cecilio Arias 45 y.o. male 1970 [id number] Procedure(s): Left Lateral Epicondylar Release & Arthrotomy w/ Bone Excision (Left Elbow) Medical history, anesthesia, medications, allergy, NPO status verified histories reviewed. Labs reviewed. Review of Systems / Med History Anesthesia History No anesthesia complications. (-) PONV, difficult intubation Cardiovascular (-) CAD, past AR, CHF , Exercise tolerance >4 METS Pulmonary (+) COPD, smoking history Neurology (+) seizures Psychology Negative except where noted below. Renal Negative except where noted below. Endocrine (+) Diabetes: type 2, NIDDM (+) obesity: BMI (30-39) Other Negative except where noted below. Cancer Negative except where noted below. Physical Exam Airway MP III, TM >3 FB, Mouth opening >2 FB. Neck: limited ROM, extends <30 degrees. Jaw pro trusion normal. Dental Grossly normal except where noted below.; (+) dentures-lower and dentures-upper. CV Rhythm regular. Rate Normal. (-) murmur, carotid bruit, peripheral edema, JVD and weak pulses. Pulm Clear to auscultation bilaterally. (-) wheezing, rhonchi, decreased breath sounds, rales and stridor. Neuro Grossly normal. Anesthesia Plan ASA 3 Type: General. Induction: Intravenous. Potential problems: Difficult airway. Monitors: Standard ASA monitors. Consent statement:Anesthetic plan, alternatives, risks and benefits discussed with patient and family. Risks discussed included (but were not limited to): dental injury, pain, sore throat, infec tion, voice injury, muscle aches, nausea, respiratory events, . Consenting person understands and agrees to proceed. PARQ. Risks and benefits of general anesthetic discussed with patient and available family member s. They agree to proceed, answered all questions.. Electronically Signed by: Stephen Kumar MD ESig date/time: 11/15/2015 9:01 documented in this encounter Plan of Treatment Not on filedocumented as of this encounter Procedures + +--------+ + + + | Procedure Name | Priori | Date/Time | Associated Diagnosis | Comments | | | ty | | | | + +--------+ + + + | ANESTHESIA BLOCK | Routin | 11/15/2015 | | Results for this | | | e | 1:03 PM | | procedure are in the | | | | PST | | results section. | + +--------+ + + + documented in this encounter Results ANESTHESIA BLOCK (11/15/2015 1:03 PM PST) + + + | Narrative | Performed At | + + + | Stephen Kumar MD 11/15/2015 13:03 Procedure Note | | | Anesthesia Block Procedure: Interscalene Block Right, | | | Approach: Posterior Technique used to guide the needle to the | | | proximity of the nerve, appropriate space, or fascial plane: | | | Ultrasound Guided. Single-Shot, Incremental Injection Incremental | | | Injection Volume: 3. Ultrasound image(s) saved in patient's chart. | | | Indication: Post-Op Pain Management. Block requested by surgeon | | | or patient. Pre-procedure Events: Patient Identified, Pre-op | | | Evaluation Completed, Airway Assessed, Risks and Benefits Discussed, | | | Procedure Consent Obtained and Timeout Performed. Patient | | | Positioning: Supine Prep: ChloraPrep used. Skin Local Anesthetic: | | | Lidocaine 1% Needle: 22 G Stimuplex (6 in and 4 in). | | | Ease: Easy Attempts: 1 Note: Negative Blood Aspirated, | | | Paresthesia and Test Dose. Risks and benefits of right | | | interscalene nerve block discussed with patient. He Agrees to | | | proceed, answered all questions. Right shoulder identified and | | | marked. Time out taken, Chloroprep for 30 seconds. Ultrasound | | | utilized to identify the nerve and artery structures. 3 cc of 2% | | | lidocaine was used to numb the skin and subcutaneous tissues. | | | Utilizing the ultrasound and under direct and continuous guidance, A | | | 22 ga Stimuplex needle was used and directed towards the nerve | | | structures. The tip of the needle was placed near the nerves and a 3 | | | cc test dose given after negative aspiration. A total of 15 ml of | | | local anesthetic was given in a divided dose fashion, with | | | aspiration and a pause between injections. The patient tolerated the | | | procedure well, no complication was noted. 11:47 to 11:54 on | | | Oct 2015 [id number] Use of Ultrasound 33573 Interscalene Block | | | Performed by: Performing Provider: STEPHEN KUMAR | | | Electronically Signed by: Stephen Kumar MD ESi date/time: | | | 11/15/2015 13:02 | | + + + documented in this encounter Visit Diagnoses Not on filedocumented in this encounter Administered Medications + +--------+ +-------+------+------+ | Medication Order | MAR | Action | Dose | Rate | Site | | | Action | Date | | | | + +--------+ +-------+------+------+ | bupivacaine 0.5%-EPINEPHrine | Given | 11/15/19 | 5 mLs | | | | 1:200,000 (PF) injection PRN, | | 16 11:51 | | | | | Other, Starting 11/15/15 at | | AM PST | | | | | 1151, Anesthesia Intra-op | | | | | | + +--------+ +-------+------+------+ +---+---+ | | | +---+---+ + +-------+ +-----+---+---+ | ceFAZolin in dextrose (ANCEF) | Given | 11/15/19 | 2 g | | | | IVPB 2 g 2 g, Intravenous, | | 16 9:21 | | | | | Administer over 30 Minutes, Prior | | AM PST | | | | | to Incision, Starting Wed | | | | | | | 11/15/15 at 0803, For 1 dose, Give | | | | | | | within one hour prior to | | | | | | | incision., Pre-op | | | | | | + +-------+ +-----+---+---+ +---+---+ | | | +---+---+ + +-------+ +------+---+---+ | HYDROmorphone (DILAUDID) 2 | Given | 11/15/19 | 1 mg | | | | mg/mL injection Intravenous, | | 16 9:27 | | | | | PRN, Pain, Starting 11/15/15 | | AM PST | | | | | at 0927, Anesthesia Intra-op | | | | | | + +-------+ +------+---+---+ +---+---+ | | | +---+---+ + +-------+ +-------+---+---+ | lidocaine (PF) 2% injection | Given | 11/15/19 | 60 mg | | | | PRN, Starting Fri11/15/15 at | | 16 11:49 | | | | | 0928, Anesthesia Intra-op | | AM PST | | | | + +-------+ +-------+---+---+ +-------+ +-------+---+---+ | Given | 11/15/19 | 60 mg | | | | | 16 9:28 | | | | | | AM PST | | | | +-------+ +-------+---+---+ +---+---+ | | | +---+---+ + +-------+ +------+---+---+ | midazolam (VERSED) 1 mg/mL | Given | 11/15/19 | 2 mg | | | | injection Intravenous, PRN, | | 16 9:14 | | | | | Anxiety, Starting Fri11/15/15 at | | AM PST | | | | | 0914, Anesthesia Intra-op | | | | | | + +-------+ +------+---+---+ +---+---+ | | | +---+---+ + +-------+ +------+---+---+ | ondansetron (ZOFRAN) injection | Given | 11/15/19 | 4 mg | | | | PRN, Nausea, Vomiting, Starting | | 16 9:28 | | | | | Fri11/15/15 at 0928, Anesthesia | | AM PST | | | | | Intra-op | | | | | | + +-------+ +------+---+---+ +---+---+ | | | +---+---+ + +-------+ +--------+---+---+ | propofol (DIPRIVAN) injection | Given | 11/15/19 | 150 mg | | | | PRN, Starting Fri11/15/15 at | | 16 9:28 | | | | | 0928, Anesthesia Intra-op | | AM PST | | | | + +-------+ +--------+---+---+ +---+---+ | | | +---+---+ + +-------+ +--------+---+---+ | ropivacaine (NAROPIN) 5 mg/mL | Given | 11/15/19 | 10 mLs | | | | (0.5%) injection PERINEURAL, | | 16 11:51 | | | | | PRN, Starting 11/15/15 at | | AM PST | | | | | 1151, Anesthesia Intra-op | | | | | | + +-------+ +--------+---+---+ +---+---+ | | | +---+---+ documented in this encounter"
--- OUTSIDE RECORDS SUMMARY | ~2020-06-16 | XMS | Encounter Summary ---
Demographics + + + | Address | [address] | | | [place] [address] | + + + | Home Phone [...] [place], | | | | | [place] [address] | | + + + + + Care Team Providers + +------+ + | Care Email Deployment Specialist Name | Role | Phone | + +------+ + PCP | Unavailable | + +------+ + Reason for Visit + +--------+ + | Reason | Onset | Comments | | | Date | | + +--------+ + | Medication Refill | 11/20/ | | | | 2015 | | + +--------+ + Encounter Details +--------+ + + + + | Date | Type | Department | Care Team | Description | +--------+ + + + + | 11/20/ | Telephone | [facility] | Amadeo Saab | Medication Refill | | 2015 | | ORTHOPEDIC SURGERY | [address] | | | | | [address] | [facility] | | | | | [address] | [place] [address] | | | | | [address] | [phone] | | | | | [phone] | | | +--------+ + + + [...] Miscellaneous Notes Telephone Encounter - Claudia Gray CMA - 11/21/2015 5:58 PM PSTPer Donny, patient is to continue with the medications he receives by PCP (on pain contract). Patient has an appointm ent on 11/23/15 with Donny and medication refill will be discussed at this appointment. Called patient at the number provided. Unable to leave message due to busy line. Electronically sig reva by Claudia Gray CMA at 11/21/2015 6:00 PM PSTTelephone Encounter - Ashley Tovar L PN - 11/21/2015 11:41 AM PSTDeferred to Amadeo Saab for review elephone Encounter - Selene Ellison - 11/21/2015 10:06 AM PSTPatients Lilly Cordova called to request a refill for dilaudid 4 mg. He can be reached at [phone]. 10: 07 AM PSTdocumented in this encounter Plan of Treatment Not on filedocumented as of this encounter Visit Diagnoses Not on filedocumented in this encounter"
--- OUTSIDE RECORDS SUMMARY | ~2020-06-16 | XMS | Encounter Summary ---
Demographics + + + | Address | [address] | | | [place] [address] | + + + | Home Phone | | + + + | Preferred Language | Unknown | + + + | Marital Status | | + + + | Sabianist Affiliation | Unknown | + + + [...] [place], | | | | | [place] [address] | | + + + + + Care Team Providers + +------+ + | Care Mapping Supervisor Name | Role | Phone | [...] medial | MD [address] | | | | | meniscus, | [address] | [place], | | | | | current | [place], | [place] [address] | | | | | injury, | [place] | Phone: | | | | | right knee, | [address] | [phone] | | | | | initial | Phone: | Fax: | | | | | encounter | [phone] | [phone] | | | | | Pain in | Fax: | | | | | | right knee | [phone] | | | | | | Other [...] | | | | | | | CT | | | | | | | CEFTRIAXONE | | | | | | | SODIUM | | | | | | | INJECTION, | | | | | | | [address] | | | | | | | [...] | +--------+ + + + + | 12/19/ | Hospital | [facility] | [place], | No Show | | 2019 | Encounter | [facility] | [address] | | | | | [address] | [place] | | | | | [place] | [address] | | | | | [address] | [phone] | | | | | [phone] | | | +--------+ + + + [...] encounter Progress Notes Estefania Feliz RN - 12/19/2018 10:55 AM PDTPt. Is a no show, I have attempted to call him and and was not successful.. documented in this encounter Plan of Treatment Not on filedocumented as of this encounter Visit Diagnoses Not on filedocumented in this encounter"
--- OUTSIDE RECORDS SUMMARY | ~2020-06-16 | XMS | Encounter Summary ---
Demographics + + + | Address | [address] | | | [place] [address] | + + + | Home Phone | | + + + | Preferred Language | Unknown | + + + | Marital Status | | + + + | Jainism Affiliation | Unknown | + + + | Race | White | + + + | Ethnic Group | Not or | + + + Author + + + | Author | [facility] | | | and [place] | + + + | Organization | [facility] | | [...] [place], | | | | | [place] [address] | | + + + + + Care Team Providers + +------+ + | Care Stallion Keeper Name | Role | Phone | + +------+ + | Russell Sanabria MD | PCP | | + +------+ + Encounter Details +--------+ + + + + | Date | Type | Department | Care Team | Description | +--------+ + + + + | 04/21/ | Orders Only | [facility] | Provider, | Other acute | | 2019 | | SYSTEM GENERIC OP | [address] | osteomyelitis, right | | | | CONVERSION [address] | [address] | ankle and foot | | | | [address] [place], [place] | [place] [address] | ([facility]) | | | | [address] | | | | | | [phone] | | | +--------+ + + + [...] | | + +------+--------+ + + | C-Reactive Protein | Lab | Routin | Other acute | Expected: | | | | e | osteomyelitis, right | 04/30/2019, Expires: | | | | | ankle and foot | 04/30/2020 | | | | | (HCC) | | + +------+--------+ + + | CBC with | Lab | Routin | Other acute | Expected: | | Differential | | e | osteomyelitis, right | 04/30/2019, Expires: | | | | | ankle and foot | 04/30/2020 | | | | | (HCC) | | + +------+--------+ + + | Sedimentation Rate | Lab | Routin | Other acute | Expected: | | | | e | osteomyelitis, right | 04/30/2019, Expires: | | | | | ankle and foot | 04/30/2020 | | | | | (HCC) | | + +------+--------+ + + documented as of this encounter Visit Diagnoses + + | Diagnosis | + + | Other acute osteomyelitis, right ankle and foot (HCC) | + + documented in this encounter"
--- OUTSIDE RECORDS SUMMARY | ~2020-06-16 | XMS | Encounter Summary ---
Demographics + + + | Address | [address] | | | [place] [address] | + + + | Home Phone [...] [place], | | | | | [place] [address] | | + + + + + Care Team Providers + +------+ + | Care Metaphysicist Name | Role | Phone | + +------+ + | No, Physician | PCP | Unavailable | + +------+ + Reason for Referral Treatment/Therapy Plan (Routine) + + + + + + + | Status | Reason | Specialty | Diagnoses / | Referred By | Referred To | | | | | Procedures | Contact | Contact | + + + + + + + | Canceled | Specialty | Infusion | Diagnoses | Radames, | [facility] | | | Services | Therapy | Acute | Alexander Flower MD | Infusion [address] | | | Required | | osteomyeliti | [address] | | | | | s of toe of | [place] | [place], | | | | | right foot | [place], | [place] | | | | | ([facility]) | [place] | [address] | | | | | | [address] | Phone: | | | | | | Phone: | [phone] | | | | | | [phone] | Fax: | | | | | | Fax: | [phone] | | | | | | [phone] | | + + + + + + + Evaluate & Treat (Routine) +--------+ + + + + + | Status | Reason | Specialty | Diagnoses / | Referred By | Referred To | | | | | Procedures | Contact | Contact | +--------+ + + + + + | Closed | Specialty | Home Health | Diagnoses | Radames, | | | | Services | Services | Acute | Alexander Flower MD | | | | Required | | osteomyeliti | [address] | | | | | | s of toe of | [place] | | | | | | right foot | [place], | | | | | | ([facility]) PICC | [place] | | | | | | (peripherall | [address] | | | | | | y inserted | Phone: | | | | | | central | [phone] | | | | | | catheter) in | Fax: | | | | | | place | [phone] | | +--------+ + + + + + Reason for Visit + + + | Reason | Comments | + + + | Foot Wound | | + + + Auth/Cert +--------+--------+ + + + + | Status | Reason | Specialty | Diagnoses / | Referred By | Referred To | | | | | Procedures | Contact | Contact | +--------+--------+ + + + + | | | | Diagnoses | | | | | | | Acute | | | | | | | osteomyeliti | | | | | | | s of toe of | | | | | | | right foot | | | | | | | (HCC) | | | | | | | Severe | | | | | | | sepsis (HCC) | | | | | | | | | | | | | | Hyperlipidem | | | | | | | ia, | | | | | | | unspecified | | | | | | | hyperlipidem | | | | | | | ia type | | | | | | | Type 2 | | | | | | | diabetes | | | | | | | mellitus | | | | | | | with other | | | | | | | specified | | | | | | | complication | | | | | | | , without | | | | | | | long-term | | | | | | | current use | | | | | | | of insulin | | | | | | | (HCC) | | | | | | | | | | +--------+--------+ + + + + Encounter Details +--------+ + + + + | Date | Type | Department | Care Team | Description | +--------+ + + + + | 08/06/ | Hospital | [facility] | Jose Weston | PICC (peripherally | | 2018 - | Encounter | [facility] | MD Stan [address] | inserted central | | | | [address] [place] | [address] [place] | catheter) in place | | 08/09/ | | [place] [address] | [place] [address] | (Primary Dx); Severe | | 2018 | | [phone] | [phone] | sepsis (HCC); Acute | | | | | | osteomyelitis of | | | | | Mamta Pierre MD | toe of right foot | | | | | [address] | (HCC); Type 2 | | | | | [place], [place] | diabetes mellitus | | | | | [id number] | with other specified | | | | | | complication, | | | | | | without long-term | | | | | | current use of | | | | | | insulin ([facility]); | | | | | | Hyperlipidemia, | | | | | | unspecified | | | | | | hyperlipidemia type; | | | | | | Decreased | | | | | | activities of daily | | | | | | living (ADL) | +--------+ + + + + Social [...] + + + | Blood Pressure | 116/57 | 08/09/2018 7:40 AM | | | | | PST | | + + + + + | Pulse | 84 | 08/09/2018 11:53 AM | | | | | PST | | + + + + + | Temperature | 37 C (98.6 F) | 08/09/2018 7:40 AM | | | | | PST | | + + + + + | Respiratory Rate | 16 | 08/09/2018 11:53 AM | | | | | PST | | + + + + + | Oxygen Saturation | 98% | 08/09/2018 11:53 AM | | | | | PST | | + + + + + | Inhaled Oxygen | - | - | | | Concentration | | | | + + + + + | Weight | 80.6 kg (177 lb 11.1 | 08/06/2018 7:18 PM | | | | oz) | PST | | + + + + + | Height | 182.9 cm (6') | 08/06/2018 7:18 PM | | | | | PST | | + + + + + | Body Mass Index | 24.1 | 08/06/2018 7:18 PM | | | | | PST | | + + + + + documented in this encounter Discharge Summaries Alexander Crum MD - 08/09/2018 10:55 AM PSTFormatting of this note might be different f rom the original. DISCHARGE SUMMARY Patient Name: Cecilio Arias : 1970 Date of Admission: 08/06/2018 Date of Discharge: 08/09/2018 Admitting Physician: Mamta Pierre MD Discharging Physician: Alexander Crum MD Primary Care Provider: No Physician on file Discharge Diagnoses: Principal Problem: Severe sepsis Active Problems: Acute osteomyelitis of toe of right foot PICC (peripherally inserted central catheter) in place Resolved Problems: * No resolved hospital problems. * Patient Active Problem List Diagnosis Knee pain, right Opiate dependence Obesity (BMI 30.0-34.9) Immune deficiency disorder Seizure Lateral epicondylitis of left elbow Lateral epicondylitis (tennis elbow), left Primary osteoarthritis of left elbow Left arm pain Decreased activities of daily living (ADL) Backache Chronic airway obstruction, not elsewhere classified Low back pain Obesity Hyperlipidemia Mixed, or nondependent drug abuse Diabetes mellitus Type 2 diabetes mellitus Severe sepsis Acute osteomyelitis of toe of right foot PICC (peripherally inserted central catheter) in place Consultants: n/a Procedures: n/a Reason for Admission: Painful, swollen (R) great toe Osteomyelitis Problem-Oriented Hospital Course: 48yoM w/ DM, chronic pain syndrome on methadone, who presented to [facility] from the urgent care clinic on 08/06/18 for evaluation of his (R) toe osteomyelitis. Patient had an ulcer on h is (R) 1st toe for the past 3 months. The toe became more swollen and red, so he was seen by podiatry. Xrays were c/w osteomyelitis, and Dr. Ruiz (podiatry) was able to probe int o the distal phalanx. Cultures were obtained, which reportedly is growing staph, strep, se rratia, and pseudomonas. Amputation of the tip of the toe was recommended, but the patient d eclined this option. Pt was informed that the other choice for treatment would be 6 weeks of IV abx. He was therefore told to go to urgent care clinic for an ID evaluation. However , at the urgent care clinic, Mr Arias was noted to be tachycardic and febrile, so was se nt to [facility] ED where he was admitted for further management of his osteomyelitis. Mr Arias has been informed by multiple providers that optimal Rx is amputation of great toe but patient has repeatedly confirmed that he does not want to pursue surgery. He sade es any IVDU. On admission, blood cultures were obtained and revealed NGTD. Therefore PICC line inserted on 08/08/18. Overall pt has done well since admission, tolerating cefepime IV. He is anxious for d/c to home at this time. 1. Osteomyelitis 1st distal phalanx (R) great toe --cultures from toe reveal Gram pos organisms sensitive to b-lactams; continue cefepime for serratia, and pseudomonas. Currently hemodynamically stable. Patient continues to decline surgical management. s/p picc placement for prolonged home Abx. Pt counseled about safe use of PICC with respect to sterility and that it should be used fo r anything other than Abx infusion. Home Health to assist with PICC management Pt is agreeable to present to outpt infusion later today and in AM 08/10 for cefepime infus ion after which Home Health will be available for home infusions. 2. NIDDM --CBS continuing to run high. --Pt to resume home DM regimen; pt encouraged to f/u Diabetes Education service 3. Chronic pain --dosing of methadone confirmed and orders per Pharm 4. HLD --continue statin. 5.CVS --continue lisinopril. --murmur on exam, likely insignif 6. FEN: --consistent carb diet; Hgb A1c pending --Labs otherwise okay Pt indicates no need for additional prescriptions other than antibiotics Code Status: Full Code Disposition: Home/self care with assistance of home health service Discharge Condition: stable Discharge Medications Changed Medications Details amphetamine-dextroamphetamine 30 MG 24 hr capsule take 1 capsule by mouth once daily What changed: Another medication with the same name was removed. Continue taking this medi cation, and follow the directions you see here. aka: ADDERALL XR B-D 3CC LUER-ANDREAS SYR 05UP4-6/2 22G X 1-1/2" 3 ML Misc Generic drug: SYRINGE-NEEDLE (DISP) 3 ML use to INJECT TESTOSTERONE TWICE A WEEK What changed: Another medication with the same name was removed. Continue taking this medi cation, and follow the directions you see here. dapagliflozin 10 mg tablet Take 1 tablet by mouth Daily. What changed: additional instructions aka: FARXIGA methadone 10 mg tablet Take 0.5 tablets by mouth every 8 hours as needed. What changed: how much to take when to take this oxyCODONE 30 MG immediate release tablet Take 1 tablet by mouth every 6 hours as needed for Pain. What changed: when to take this aka: ROXICODONE Unchanged Medications Details aspirin 325 mg tablet Take 1 tablet by mouth Daily. cholecalciferol 1,000 units capsule Take 1 capsule by mouth Daily. aka: VITAMIN D-3 clomiPHENE 50 MG tablet take 1/2 tablet by mouth once daily FRIDAY THROUGH FRIDAY. STOP T... (REFER TO PRESCRIPTI ON NOTES). aka: CLOMID cyclobenzaprine 10 mg tablet 1 tablet orally 3 times per day aka: FLEXERIL ergocalciferol 50,000 units capsule take 1 capsule by mouth weekly aka: VITAMIN D-2 gabapentin 600 MG tablet take 1 tablet by mouth three times a day aka: NEURONTIN glipiZIDE 10 MG tablet take 1 tablet by mouth twice a day aka: GLUCOTROL glucose blood test strips strip Use as dir aka: TERRI CONTOUR TEST lisinopril 10 mg tablet aka: PRINIVIL, ZESTRIL metFORMIN 1000 MG tablet Take 1,000 mg by mouth 2 times daily (with breakfast & dinner). aka: GLUCOPHAGE omeprazole 20 mg capsule Take 20 mg by mouth every morning (before breakfast). aka: priLOSEC rosuvastatin 40 MG tablet aka: CRESTOR SENNA LAX 8.6 mg tablet Generic drug: senna take 4 tablets by mouth UP TO 2 TIMES A DAY NEEDED FOR CONSTIPATION simvastatin 40 mg tablet Take 20 mg by mouth nightly. aka: ZOCOR tamsulosin 0.4 mg Caps Take 0.4 mg by mouth daily (after breakfast). aka: FLOMAX VENTOLIN HFA 90 mcg/puff inhaler Generic drug: albuterol Discontinued Medications NARCAN 4 mg/nasal spray Generic drug: naloxone ondansetron 4 mg tablet aka: ZOFRAN Studies With Pending Results: Blood cultures Greater than 30 minutes were spent on discharge and coordination of post-hospital care. Electronically signed by: Alexander Crum MD, 08/09/2018 10:55 [facility] documented in this encounter Medications at Time [...] + +---------+ + + | B-D 3CC LYNSEY | use to INJECT | | 0 | 07/09/20 | | | SYR 27DH5-5/2 22G X | TESTOSTERONE TWICE A | [...] encounter Progress Notes Ita Holbrook RN - 08/08/2018 4:44 PM PSTRight basilic single lumen power picc placed fo llowing INS guidelines. Stick x1 to gain access, picc line advanced without difficulty into position. 3cg max p wave found for picc tip confirmation. RN notified line is ready for u se. Education on line done with pt and , Pt denies any IV drug use.Electronically sign ed by Ita Holbrook RN at 08/08/2018 4:46 PM Alexander Chao MD - 08/08/2018 11:54 A M PST HOSPITALIST progress NOTE [facility] 08/08/2018 Rounding Physician: Alexander Crum MD Patient Name: Cecilio Arias : 1970 Medical Record: [id number] Primary Hospital Problem: Osteomyelitis (R) great toe HPI: 48yoM w/ DM, chronic pain syndrome on methadone, who presented to [facility] from the urgent care on 08/06/18 for evaluation of his (R) toe osteomyelitis. Patient has had an ulcer on his ( R) 1st toe for the past 3 months. The toe became more swollen and red recently, so he was s een by podiatry shortly before admission. Xrays were c/w osteomyelitis, and Dr. Ruiz (pod iatry) was able to probe into the distal phalanx. Cultures were obtained, which reportedly is growing staph, strep, serratia, and pseudomonas. Amputation of the tip of the toe was rec ommended, but the patient did not want to undergo this. Pt was informed that the other choic e for treatment would be 6 weeks of IV abx. He was therefore told to go to urgent care for an ID referral. However, at the urgent care, he was noted to be tachycardic and febrile, so was sent to [facility] ED. The pt was admitted for further management of his osteomyelitis. Mr Arias has been informed by multiple providers that optimal Rx is amputation of great toe but patient has repeatedly confirmed that he absolutely does not want to pursue surgery . He denies any IVDU. Pt requesting PICC so he can be discharged to home to continue abx. He was informed that sterile blood cultures need to be documented before PICC insertion. A grees to wait. Cultures NGTD; will request PICC insertion for anticipated d/c in 08/09/18. Will require c efepime 2g IV Q12Hr x6 weeks. Patient states he takes 160mg methadone daily, per Pharm review, pt uses 60-80mg bid. Orde r adjusted Now overall comfortable, no distress altho does have intermittent pain to (R) great toe. Appetite good; reports moving bowels, no constipation. No additional problems reported. OBJECTIVE DATA VITAL SIGNS: BP 119/60 | Pulse 70 | Temp 36 C (96.8 F) (Oral) | Resp 18 | Ht 1.829 m (6') | Wt 80.6 kg (177 lb 11.1 oz) | SpO2 97% | BMI 24.10 kg/m Vital sign ranges for last 24hrs: Input and output for last 24hrs: Temp: [36 C (96.8 F)-36.5 C (97.7 F)] 36 C (96.8 F) Pulse: [63-70] 70 Resp: [16-18] 18 BP: (113-125)/(60-72) 119/60 SpO2 Av.3 % Min: 97 % Max: 98 % 08/06 1901 - 08/08 0700 In: 4418 [P.O.:1550; I.V.:2818] Out: 1750 [Urine:1750] Admit Weight: Weight: 80.6 kg (177 lb 11.1 oz) Current weight: Weight: 80.6 kg (177 lb 11.1 oz) Intake/Output Summary (Last 24 hours) at 08/08/18 1154 Last data filed at 08/08/18 0915 Gross per 24 hour Intake 2359 ml Output 1300 ml Net 1059 ml MEDICATIONS: Scheduled Meds: amphetamine-dextroamphetamine 30 mg Oral Daily aspirin 325 mg Oral Daily atorvaSTATin 20 mg Oral Nightly cefepime 2 g Intravenous 3 times per day enoxaparin 40 mg Subcutaneous Daily gabapentin 600 mg Oral TID insulin glargine 0.1 Units/kg/day Subcutaneous Nightly insulin lispro 0-6 Units Subcutaneous 4x Daily WC and HS lisinopril 10 mg Oral Daily methadone 80 mg Oral 2 times per day pantoprazole 40 mg Oral QAM AC pharmacy consult - other medications/reasons Other Pharmacy Consult tamsulosin 0.4 mg Oral Daily after breakfast Continuous Infusions: PRN Meds:acetaminophen, aluminum & magnesium hydroxide-simethicone, bisacodyl, calcium carb rolf, cyclobenzaprine, Hypoglycemia Management AND POCT Glucose AND dextrose, docus ate sodium, melatonin, morphine, oxyCODONE, polyethylene glycol, senna PHYSICAL EXAMINATION: General: awake, sitting on edge of bed, NAD HEENT: Pupils equal, conjugate gaze Cardiovascular: Reg rate and rhythm, (+) 2/6 systolic murmur 2nd (R) ICS Respiratory: unlabored resp effort, clear bila Extremities: (R) LE edema; foot dressed and wound not inspected Neurological: awake, alert, appropriately responsive, grossly non-focal DIAGNOSTICS: Labs: Lab Results Component Value Date CREA 1.03 08/07/2018 BUN 13 08/07/2018 NA 137 08/07/2018 K 3.7 08/07/2018 CL 105 08/07/2018 CO2 27 08/07/2018 Lab Results Component Value Date WBC 7.9 08/07/2018 HGB 10.0 (L) 08/07/2018 HCT 32.0 (L) 08/07/2018 MCV 91.2 08/07/2018 PLT 335 08/07/2018 Lab Results Component Value Date TROPONIN <0.01 06/13/2015 No results found for: INR, PROTIME ASSESSMENT AND PLAN 1. Osteomyelitis 1st distal phalanx (R) great toe --s/p MRI of toe; findings consistent with osteo of distal phalanx, no IP joint involvement . --Culture data from podiatry reveals multiple organisms, both gram neg and gram pos --Gram pos organisms sensitive to b-lactams, will d/c vancomycin; continue cefepime for ser ratia, and pseudomonas. Blood cultures pending. --Initial lactate 3.4 altho now wnl with hydration. Currently hemodynamically stable. Pat ient continues to decline surgical management. --utox pos amphetamine and methadone screen --for picc placement later today --will need CM to assist with retirement abx plan. 2. NIDDM --CBS running high. Add glargine insulin -8 units 3. Chronic pain --dosing of methadone confirmed and orders per Pharm 4. HLD --continue statin. 5.CVS --continue lisinopril. --murmur on exam, likely insignif but check echo for vegetations 6. FEN: --consistent carb diet; Hgb A1c pending --Labs otherwise okay PPx: lovenox, SCDs Code: FULL, per patient wishes on admission Dispo: Hopeful for d/c in 24hrs. Electronically signed by: Alexander Crum MD, DATE/TIME: 08/08/2018 11:54 [facility] HOSPITALIST TEAMElectronically signed by Alexander Crum MD at 018 1:48 PM PSTStiller, Alexander Flower MD - 08/07/2018 12:54 PM PST HOSPITALIST progress NOTE [facility] 08/07/2018 Rounding Physician: Alexander Crum MD Patient Name: Cecilio Arias : 1970 Medical Record: [id number] Primary Hospital Problem: Osteomyelitis (R) great toe HPI: 48yoM w/ poorly controlled DM, chronic pain on methadone, who presented to [facility] from [facility] on 08/06/18 for evaluation of his R toe osteo. Patient has had an ulcer on his R 1st toe for the past 3 months. This became more swollen and red recently, so he was seen by podiatry earlier this past week. Xrays were c/w osteomyelitis, and Dr. Ruiz was able to probe into the distal phalanx. Cultures were obtained, which reportedly is growing staph, s trep, serratia, and pseudomonas. Amputation of the tip of the toe was recommended, [facility]. Pt was informed that the other choice for treatment wou ld be 6 weeks of IV abx. He was therefore told to go to the urgent care for an ID referral. However, at the urgent care, he was noted to be tachycardic and febrile, so was sent to [facility] ER. The pt was admitted for further management of his osteomyelitis. Mr Arias has been informed by multiple providers that optimal Rx is amputation of great toe but patient has repeatedly confirmed that he absolutely does not want to pursue surgery . He denies any IVDU. Pt requesting PICC so he can be discharged to home. He was informed that sterile blood cultures need to be documented before PICC insertion. A grees to wait. Patient states he takes 160mg methadone daily, however per Pharm review, pt uses 60-80mg bi d. Now overall comfortable, no distress No additional problems reported. OBJECTIVE DATA VITAL SIGNS: BP 113/64 | Pulse 80 | Temp 36.4 C (97.5 F) (Oral) | Resp 18 | Ht 1.82 9 m (6') | Wt 80.6 kg (177 lb 11.1 oz) | SpO2 97% | BMI 24.10 kg/m Vital sign ranges for last 24hrs: Input and output for last 24hrs: Temp: [36.4 C (97.5 F)-38.1 C (100.5 F)] 36.4 C (97.5 F) Pulse: [76-105] 80 Resp: [16-18] 18 BP: (104-135)/(58-75) 113/64 SpO2 Av.3 % Min: 94 % Max: 99 % 08/05 1901 - 08/07 0700 In: 509 [I.V.:509] Out: 750 [Urine:750] Admit Weight: Weight: 80.6 kg (177 lb 11.1 oz) Current weight: Weight: 80.6 kg (177 lb 11.1 oz) Intake/Output Summary (Last 24 hours) at 08/07/18 1254 Last data filed at 08/07/18 0900 Gross per 24 hour Intake 2059 ml Output 1350 ml Net 709 ml MEDICATIONS: Scheduled Meds: amphetamine-dextroamphetamine 30 mg Oral Daily aspirin 325 mg Oral Daily atorvaSTATin 20 mg Oral Nightly cefepime 2 g Intravenous 3 times per day enoxaparin 40 mg Subcutaneous Daily gabapentin 600 mg Oral TID insulin lispro 0-12 Units Subcutaneous 4x Daily WC and HS lisinopril 10 mg Oral Daily methadone 80 mg Oral 2 times per day pantoprazole 40 mg Oral QAM AC pharmacy consult - other medications/reasons Other Pharmacy Consult tamsulosin 0.4 mg Oral Daily after breakfast Continuous Infusions: sodium chloride 0.9% 100 mL/hr at 08/07/18 0103 PRN Meds:acetaminophen, aluminum & magnesium hydroxide-simethicone, bisacodyl, calcium carb rolf, cyclobenzaprine, Hypoglycemia Management AND POCT Glucose AND dextrose, docus ate sodium, melatonin, morphine, oxyCODONE, polyethylene glycol, senna PHYSICAL EXAMINATION: General: awake, sitting on edge of bed, NAD HEENT: Pupils equal, conjugate gaze Cardiovascular: Reg rate and rhythm, (+) 2/6 systolic murmur 2nd (R) ICS Respiratory: unlabored resp effort, clear bila Abdomen: S NT ND BS normoactive Extremities: R first toe swollen, mild erythema, ulceration on bottom of toe, no drainage Neurological: awake, alert, appropriately responsive, grossly non-focal DIAGNOSTICS: Labs: Lab Results Component Value Date CREA 1.03 08/07/2018 BUN 13 08/07/2018 NA 137 08/07/2018 K 3.7 08/07/2018 CL 105 08/07/2018 CO2 27 08/07/2018 Lab Results Component Value Date WBC 7.9 08/07/2018 HGB 10.0 (L) 08/07/2018 HCT 32.0 (L) 08/07/2018 MCV 91.2 08/07/2018 PLT 335 08/07/2018 Lab Results Component Value Date TROPONIN <0.01 06/13/2015 No results found for: INR, PROTIME ASSESSMENT AND PLAN 1. Osteomyelitis 1st distal phalanx (R) great toe --Will obtain MRI to better evaluate the extent of the infection. --Culture data from podiatry reveals multiple organisms, both gram neg and gram pos --Gram pos organisms sensitive to b-lactams, will d/c vancomycin; continue cefepime for ser ratia, and pseudomonas. Blood cultures pending. --Initial lactate 3.4 altho now wnl with hydration. Currently hemodynamically stable. Pat ient continues to decline surgical management. --utox pos amphetamine and methadone screen; for picc placement. Will need CM to assist w ith remote computer terminal operator abx plan. 2. NIDDM--CBS running high. SSI for now. Consider glargine insulin in AM if necessary. 3. Chronic pain--dosing of methadone confirmed and orders per Pharm 4. HLD--continue statin. 5.CVS --continue lisinopril. --murmur on exam, likely insignif but check echo for vegetations 6. FEN: --consistent carb diet; Hgb A1c pending --Labs otherwise okay PPx: lovenox, SCDs Code: FULL, per patient wishes on admission Dispo: Inpatient, as will likely require >2MN hospital stay. Portions of this report were transcribed using voice recognition software. Every effort was made to ensure accuracy; however, inadvertent computerized hog buyer errors and typos m ay be present Electronically signed by: Alexander Crum MD, DATE/TIME: 08/07/2018 12:54 [facility] UNITIST TEAMElectronically signed by Alexander Crum MD at 018 1:18 PM David Mondragon, PharmD - 08/07/2018 10:32 AM PSTFormatting of this note migh t be different from the original. VANCOMYCIN PER PHARMACY PROTOCOL: AMS/Drug Name - Vancomycin / Cefepime Patient: Cecilio Arias [id number] Admit: 08/06/2018 19:41 RELEVANT ALLERGIES: AZITHROMYCIN (Anaphylaxis); Sulfa Antibiotics (Hives) 48 yrs old male patient admitted on 08/06/2018 for foot wound. Patient is receiving vanco mycin starting on 08/06/18 for osteomyelitis. Patient has a past medical history of Adverse effect of anesthesia; Diabetes mellitus ([facility]); Elevated cholesterol; Emphysema of lung ([facility] ); GERD (gastroesophageal reflux disease); Immune deficiency disorder ([facility]); Osteoporosis; P ONV (postoperative nausea and vomiting); Seizure ([facility]); Testosterone deficiency; and Vitamin D deficiency. . Risk factors for MDR organisms include recent healthcare contact and h/o Ps udomonas. Antimicrobials - Current Antibiotic Dates of Therapy Vancomycin 08/06- Cefepime 08/06- Antimicrobials - Discontinued Antibiotic Dates of Therapy Historical Vancomycin dosing (previous & current encounter): none Micro/Cultures/Diagnostics: Microbiology Results (Last 14 Days by Collected Date with Culture/Sensitivity) Procedure Component Value Units Date/Time Culture, Blood [[id number]] (Normal) Collected: 08/06/182155 Order Status: Completed Lab Status: Preliminary result Updated: 08/07/18 1001 Specimen: Blood Culture No growth: Monitored continually by instrument for 5 days Culture, Blood [[id number]] (Normal) Collected: 08/06/182155 Order Status: Completed Lab Status: Preliminary result Updated: 08/07/18 100 Specimen: Blood Culture No growth: Monitored continually by instrument for 5 days Relevant cultures from previous admits: none documented in EMR UA: none Admission Wt: Weight: 80.6 kg (177 lb 11.1 oz) Current Wt: Weight: 80.6 kg (177 lb 11.1 oz) Min/Max Temp past 24 hours:Temp Av.1 C (98.7 F) Min: 36.4 C (97.5 F) Max: 3 8.1 C (100.5 F) Estimated Creatinine Clearance: 98 mL/min (based on SCr of 1.03 mg/dL). Intake/Output Summary (Last 24 hours) at 08/07/18 1046 Last data filed at 08/07/18 0900 Gross per 24 hour Intake 2059 ml Output 1350 ml Net 709 ml Temp: [36.4 C (97.5 F)-38.1 C (100.5 F)] 36.4 C (97.5 F) Pulse: [76-105] 80 Resp: [16-18] 18 BP: (104-135)/(58-75) 113/64 Recent Labs Lab 08/07/18 0617 08/06/18 2339 08/06/18 2043 WBC 7.9 -- 7.1 CREA 1.03 -- 1.20 LACTATE -- 1.0 3.4* PROCALCITONI -- -- <0.05 HSCRP -- -- 2.66 Imaging: Date 08/06 08/07 08/08 Time of Vancomycin draw -- -- 0800 Vancomycin result -- -- TROUGH LEVEL or TROUGH -- due Serum Creatinine 1.2 1.03 CrCl (mL/min) 84 98 Vanco load/bolus 1500 mg -- Vanco dose - current -- 1250 mg q12hr Vanco dose - new 1250 mg q12hr Assessment: Vancomycin Day # 2 Other antibiotics: Cefepime Target Trough: 15-20 mcg/ml for osteomyelitis and severe sepsis WBC: 7.9; Renal: 1.03 - improving; Temp: af; Culture: blood cx- pending; VS: stable Lactate 3.4--> 1.0 PCT and CRP WNL Renal function: UOP: 1.9 ml/kg/hr Dosing weight: 80.6 kg Plan: 1. Vancomycin load of 1500 mg (~18.6 mg/kg) IVPB x 1 given on 08/06/18 @ 2, followed by maintenance vancomycin 1250 mg IVPB q12h 2. Vancomycin trough ordered for 08/08/18 @ 0800 (draw 60 minutes prior to hanging the [...] Dosing and Monitoring Protocol Electronically signed by: David Messer PharmD 08/07/2018 10:46 Janel Lock , PharmD - 08/06/2018 8:56 PM PSTFormatting of this note might be different from the origin al. VANCOMYCIN PER PHARMACY PROTOCOL: AMS/Drug Name - Vancomycin / Cefepime Patient: Cecilio Arias [id number] Admit: 08/06/2018 19 :41 RELEVANT ALLERGIES: AZITHROMYCIN (Anaphylaxis); Sulfa Antibiotics (Hives) 48 yrs old male patient admitted on 08/06/2018 for foot wound. Patient is receiving vanco mycin starting on 08/06/18 for osteomyelitis. Patient has a past medical history of Adverse effect of anesthesia; Diabetes mellitus (HCC); Elevated cholesterol; Emphysema of lung (HCC ); GERD (gastroesophageal reflux disease); Immune deficiency disorder (HCC); Osteoporosis; P ONV (postoperative nausea and vomiting); Seizure (HCC); Testosterone deficiency; and Vitamin D deficiency. . Risk factors for MDR organisms include recent healthcare contact and h/o Ps udomonas. Antimicrobials - Current Antibiotic Dates of Therapy Vancomycin 08/06- Cefepime 08/06- Antimicrobials - Discontinued Antibiotic Dates of Therapy Historical Vancomycin dosing (previous & current encounter): none Micro/Cultures/Diagnostics: Microbiology Results (Last 14 Days by Collected Date with Culture/Sensitivity) Procedure Component Value Units Date/Time Culture, Blood [[id number]] Order Status: Sent Lab Status: No result Specimen: Blood Culture, Blood [[id number]] Order Status: Sent Lab Status: No result Specimen: Blood Relevant cultures from previous admits: none documented in EMR UA: none Admission Wt: Weight: 80.6 kg (177 lb 11.1 oz) Current Wt: Weight: 80.6 kg (177 lb 11.1 oz) Min/Max Temp past 24 hours:Temp Av.6 C (99.7 F) Min: 37.2 C (98.9 F) Max: 3 8.1 C (100.5 F) Estimated Creatinine Clearance: 84 mL/min (based on SCr of 1.2 mg/dL). No intake or output data in the 24 hours ending 08/06/182141 Temp: [37.2 C (98.9 F)-38.1 C (100.5 F)] 37.2 C (98.9 F) Pulse: [98-105] 98 Resp: [16] 16 BP: (125-135)/(58-63) 135/63 Recent Labs Lab 08/06/182042 WBC 7.1 CREA 1.20 LACTATE 3.4* PROCALCITONI <0.05 HSCRP 2.66 Imaging: Date 08/06 Time of Vancomycin draw -- Vancomycin result -- LEVEL or TROUGH Serum Creatinine 1.2 CrCl (mL/min) 84 Vanco load/bolus 1500 mg Vanco dose - current -- Vanco dose - new 1250 mg q12hr Assessment: Vancomycin Day # 1 Other antibiotics: Cefepime Target Trough: 15-20 mcg/ml for osteomyelitis WBC: 7.1; Renal: 1.2; Temp: af; Culture: blood cx- pending; VS: stable Renal function: UOP: will assess after 24h UOP obtained Dosing weight: 80.6 kg Plan: 1. Vancomycin load of 1500 mg (~18.6 mg/kg) IVPB x 1 given on 08/06/18 @ 2122, followed by maintenance vancomycin 1250 mg IVPB q12h 2. Vancomycin trough ordered for 08/08/18 @ 0800 (draw 60 minutes prior to hanging the [...] Dosing and Monitoring Protocol Electronically signed by: Janel Degroot, PharmD 08/06/2018 21:42 documented in this encounter H&P Notes Mamta Pierre MD - 08/06/2018 11:54 PM PST HISTORY AND PHYSICAL EXAMINATION Pt. Name/Age/: Cecilio Zimmerman Juana 48 y.o. 1970 Date of admission: 08/06/2018 Admitting Physician: Mamta Pierre Primary Care Physician: No Physician on file History taken from: patient, spouse/SO and past medical records Chief Complaint/Reason for Visit: Sent in by urgent care for R 1st to osteo and sepsis History of Present Illness: 48yoM w/ poorly controlled NIDDM, chronic pain on methadone, who presents from the urgent c are for evaluation of his R toe osteo. Patient has had an ulcer on his R 1st toe for the pa st 3 months. This became more swollen and red recently, so he saw Dr. Ruiz this past week . Xrays were c/w osteomyelitis, and Dr. Ruiz was able to probe into the distal phalanx. Cultures were obtained, which reportedly is growing staph, strep, serratia, and pseudomonas. Dr. Ruiz had recommended amputation of the tip of the toe, but the patient did not want to undergo this. Dr. Ruiz informed him that the other choice would be 6 weeks of IV abx. He was apparently told to go to the urgent care for a referral to infectious disease. Olena iraheta, at the urgent care, he was noted to be tachycardic and febrile, so was sent to the ER. Patient confirms at this time that he absolutely does not want to pursue surgery. He denie s any IVDU. Patient states he takes 160mg methadone daily, and 30mg adderall daily. Past Medical History: Past Medical History: Diagnosis Date Adverse effect of anesthesia Slow to wake up Diabetes mellitus (HCC) Elevated cholesterol Emphysema of lung (HCC) GERD (gastroesophageal reflux disease) Immune deficiency disorder (HCC) Lab results placed in chart regarding AHE252 Phenotype. Osteoporosis PONV (postoperative nausea and vomiting) Seizure (HCC) Testosterone deficiency Vitamin D deficiency Past Surgical History: Procedure Laterality Date CARPAL TUNNEL RELEASE Left 05/14/2017 Procedure: Left Elbow Joint Exploration and Bilateral Shoulder Injection; Surgeon: Nirmal Wood MD; Location: [facility] MAIN OR ELBOW SURGERY Left 11/15/2015 Procedure: Left Lateral Epicondylar Release & Injection of Left Elbow Joint ; Surgeon: Janet Wood MD; Location: [facility] MAIN OR KNEE ARTHROSCOPY Right 12/05/2014 Procedure: Right Knee Arthroscopy with Partial Medial Menisectomy and Medial- Femoral Tay droplasty; Surgeon: Marty Wood MD; Location: [facility] MAIN OR KNEE ARTHROSCOPY Right 02/11/2018 Procedure: Right Knee Arthroscopy & bilateral Elbow Injections, Lateral Tibial Chondroplas ty, Medial Femoral Chondroplasty, Partial medial meniscectomy; Surgeon: Marty Wood MD; Location: [facility] MAIN OR MANDIBLE SURGERY spinal cord injury Allergies: Allergies Allergen Reactions Azithromycin Anaphylaxis Codeine Hives Hydrocodone Hives Sulfa Antibiotics Hives Current Medications: Current Facility-Administered Medications Medication Dose Route Frequency Provider Last Rate Last Dose acetaminophen (TYLENOL) tablet 650 mg 650 mg Oral Q4H PRN Mamta Pierre MD aluminum & magnesium hydroxide-simethicone (MAALOX PLUS REGULAR STRENGTH) 200-200-20 mg /5 mL suspension 30 mL 30 mL Oral Q4H PRN Mamta Pierre MD [START ON 08/07/2018] amphetamine-dextroamphetamine (ADDERALL) tablet 30 mg 30 mg Oral Daily Mamta Pierre MD [START ON 08/07/2018] aspirin tablet 325 mg 325 mg Oral Daily Mamta Pierre MD [START ON 08/07/2018] atorvaSTATin (LIPITOR) tablet 20 mg 20 mg Oral Nightly aMmta ennis MD bisacodyl (DULCOLAX) suppository 10 mg 10 mg Rectal Daily PRN Mamta Pierre MD calcium carbonate (TUMS) chewable tablet 1,000 mg 1,000 mg Oral Q4H PRN Mamta Pierre MD cefepime (MAXIPIME) 2 g in sodium chloride 0.9% 50 mL IVPB 2 g Intravenous 3 times per day Jose Weston MD Stopped at 08/06/18 2340 cyclobenzaprine (FLEXERIL) tablet 10 mg 10 mg Oral Q8H PRN Mamta Pierre MD dextrose 50% injection 12.5 g 12.5 g Intravenous PRN Mamta Pierre MD docusate sodium (COLACE) capsule 100 mg 100 mg Oral BID PRN Mamta Pierre MD [START ON 08/07/2018] enoxaparin (LOVENOX) 40 mg/0.4 mL injection 40 mg 40 mg Subcutan eous Daily Mamta Pierre MD [START ON 08/07/2018] gabapentin (NEURONTIN) capsule 600 mg 600 mg Oral TID Mamta vivas MD [START ON 08/07/2018] insulin lispro (humaLOG KWIKPEN) 100 units/mL injection (pen) 0-1 2 Units 0-12 Units Subcutaneous 4x Daily WC and HS Mamta Pierre MD [START ON 08/07/2018] lisinopril (PRINIVIL, ZESTRIL) tablet 10 mg 10 mg Oral Daily Martha Pierre MD melatonin tablet 3 mg 3 mg Oral Nightly PRN Mamta Pierre MD [START ON 08/07/2018] methadone tablet 160 mg 160 mg Oral Daily Mamta Pierre MD morphine injection 2-6 mg 2-6 mg Intravenous Q2H PRN Mamta Pierre MD ondansetron (ZOFRAN) injection 4 mg 4 mg Intravenous Q6H PRN Mamta Pierre MD oxyCODONE (ROXICODONE) tablet 5-15 mg 5-15 mg Oral Q3H PRN Mamta Pierre MD [START ON 08/07/2018] pantoprazole (PROTONIX) DR tablet 40 mg 40 mg Oral QAM AC Ilsa Pierre MD Pharmacy Consult Other Pharmacy Consult Mamta Pierre MD polyethylene glycol (MIRALAX) powder 17 g 17 g Oral Daily PRN Mamta Pierre MD [START ON 08/07/2018] rosuvastatin (CRESTOR) tablet 40 mg 40 mg Oral Nightly Mamta ennis MD senna (SENOKOT) tablet 8.6 mg 8.6 mg Oral BID PRN Mamta Pierre MD [START ON 08/07/2018] sodium chloride 0.9% (NS) infusion Intravenous Continuous Ching Pierre MD [START ON 08/07/2018] tamsulosin (FLOMAX) capsule 0.4 mg 0.4 mg Oral Daily after break fast Mamta Pierre MD [START ON 08/07/2018] vancomycin 1,250 mg in sodium chloride 0.9% 250 mL IVPB 1,250 mg Intravenous Q12H Janel Degroot, PharmD vancomycin per pharmacy Other Pharmacy Consult Jose Weston MD Current Outpatient Prescriptions Medication Sig Dispense Refill amphetamine-dextroamphetamine (ADDERALL XR) 30 MG 24 hr capsule take 1 capsule by mouth once daily 0 amphetamine-dextroamphetamine (ADDERALL) 20 mg tablet take 1 tablet by mouth every morn ing and 1/2 tablet at noon 0 aspirin 325 mg tablet Take 1 tablet by mouth Daily. 30 tablet 0 B-D 3CC LUER-ANDREAS SYR 94NJ3-0/2 22G X 1-1/2" 3 ML MISC use to INJECT TESTOSTERONE TWICE A WEEK 0 B-D 3CC LUER-ANDREAS SYR 21TV4-5/2 23G X 1-1/2" 3 ML MISC 0 cholecalciferol (VITAMIN D-3) 1,000 units capsule Take 1 capsule by mouth Daily. 90 cap ava 3 clomiPHENE (CLOMID) 50 MG tablet take 1/2 tablet by mouth once daily FRIDAY THROUGH Fri. STOP T... (REFER TO PRESCRIPTION NOTES). 0 cyclobenzaprine (FLEXERIL) 10 mg tablet 1 [...] dir 100 each 0 lisinopril (PRINIVIL, ZESTRIL) 10 mg tablet 0 metformin (GLUCOPHAGE) 1000 MG tablet Take 1,000 mg by mouth 2 times daily (with breakf ast & dinner). methadone 10 mg tablet Take 0.5 tablets by mouth every 8 hours as needed. (Patient taksuly ng differently: Take 80 mg by mouth [...] mg by mouth daily (after breakfast). 0 VENTOLIN HFA 108 (90 Base) MCG/ACT inhaler 0 Family History: History reviewed. No pertinent family [...] Narrative No narrative on file Review of Systems: A 12 system, 2 point review was conducted and is negative except as not ed in the HPI. Exam: Vital Signs on Arrival: Temp: 37.2 C (98.9 F) BP: 135/63 Pulse: 98 Resp: 16 SpO2: 99 % on Most Recent Vital Signs: Temp: 37.2 C (98.9 F) BP: 104/62 Pulse: 76 Resp: 16 SpO2: 99 % on Admission Weight: Weight: 80.6 kg (177 lb 11.1 oz) BMI: Body mass index is 24.1 kg/m . Physical Examination: General: Sleeping, but easily arousable, NAD HEENT: MMM Cardiovascular: Regular S1S2, no murmur Respiratory: CTAB Abdomen: S NT ND BS normoactive Genitourinary: deferred Extremities: R first toe swollen, mild erythema, ulceration on bottom of toe, no drainage Skin: As above Neurological: nonfocal Psychiatric: Flat affect Diagnostic Studies: Available Labs and Images were reviewed personally. Significant resul ts and findings are addressed below or in the Assessment and Plan. Code Status: Full Code Assessment and Plan: 1. Severe sepsis 2/2 R 1st distal phalanx osteomyelitis--Will obtain MRI to better evaluate the extent of the infection. Will try to obtain culture data from Dr. Ruiz's office. In the meantime, continue vanc and cefepime to cover for staph, strep, serratia, and pseudomon as. Blood cultures pending. Initial lactic 3.4, and repeating after IVF hydration. Preethi tly hemodynamically stable. Patient continues to decline surgical management. Check utox, as I am not certain that he is an ideal candidate for picc placement. Will need CM to oskar t with remote computer terminal operator abx plan. 2. NIDDM--holding above medications for now. SSI. Can add lantus if needed. 3. Chronic pain--check dosing on methadone, continue oxycodone. 4. HLD--continue statin. 5. HTN--continue lisinopril. FEN: DM PPx: lovenox, SCDs Code: FULL, per patient wishes on admission Dispo: Inpatient, as will likely require >2MN hospital stay. Electronically signed by: Mamta Pierre MD, 08/06/2018 23:54 [facility] Lab data: Recent Results (from the past 24 hour(s)) CBC with Differential Collection Time: 08/06/18 20:43 Result Value Ref Range WBC 7.1 4.0 - 11.0 K/uL RBC 3.50 (L) 4.30 - 5.70 M/uL Hgb 9.9 (L) 13.5 - 18.0 g/dL Hct 31.9 (L) 40.0 - 51.0 % MCV 91.1 83.0 - 101.0 fL MCH 28.3 28.0 - 35.0 pg MCHC 31.0 (L) 32.0 - 36.0 g/dL RDW-CV 14.1 <15.0 % RDW-SD 46.8 (H) 35.1 - 46.3 fL Platelet Count 327 140 - 440 K/uL MPV 10.4 6.5 - 12.4 fL % Neutrophils 50.8 45.0 - 82.0 % % Lymphocytes 31.7 20.0 - 45.0 % % Monocytes 9.3 4.0 - 12.0 % % Eosinophils 6.8 (H) 0.0 - 5.0 % % Basophils 1.0 0.0 - 1.0 % % Immature granulocytes 0.4 0.0 - 0.4 % Absolute Neutrophils 3.60 1.80 - 8.50 K/uL Absolute Lymphocytes 2.25 0.60 - 3.20 K/uL Absolute Monocytes 0.66 0.00 - 1.00 K/uL Absolute Eosinophils 0.48 (H) 0.00 - 0.40 K/uL Absolute Basophils 0.07 0.00 - 0.10 K/uL Absolute Imm. Granulocytes 0.03 0.00 - 0.03 K/uL nRBC 0 0 - 2 per 100 WBC's NRBC ABS 0.00 0.00 - 0.01 K/uL Comprehensive Metabolic Panel Collection Time: 08/06/18 20:43 Result Value Ref Range NA 136 136 - 149 mmol/L K 3.7 3.5 - 5.1 mmol/L CL 103 98 - 109 mmol/L CO2 24 24 - 31 mmol/L ANION GAP 9 3 - 16 mmol/L GLUCOSE 331 (H) 70 - 109 mg/dL BUN 19 (H) 7 - 18 mg/dL Creatinine, Serum/Plasma 1.20 0.60 - 1.30 mg/dL eGFR if not >60 >=60 mL/min/1.73m2 CALCIUM 8.3 8.3 - 10.5 mg/dL ALBUMIN 3.1 (L) 3.2 - 5.0 g/dL Bilirubin Total 0.2 0.1 - 1.5 mg/dL Total protein 6.1 6.0 - 7.8 g/dL AST 26 10 - 42 U/L ALT 14 6 - 45 U/L ALK PHOS 80 40 - 110 U/L GLOBULIN 3.0 2.1 - 3.8 g/dL Albumin/Globulin ratio 1.0 0.8 - 2.0 BUN/CREA 15.8 C-Reactive Protein, High Sensitivity Collection Time: 08/06/18 20:43 Result Value Ref Range CRP, High Sensitive 2.66 <=3.00 mg/L Procalcitonin Collection Time: 08/06/18 20:43 Result Value Ref Range Procalcitonin <0.05 <=0.50 ng/mL Comment Lactic Acid Collection Time: 08/06/18 20:43 Result Value Ref Range LACTATE 3.4 (H) 0.5 - 2.2 mmol/L Extra Green Top Tube Collection Time: 08/06/18 20:43 Result Value Ref Range Extra Green Top Tube Done Extra Lavender Top Tube Collection Time: 08/06/18 20:43 Result Value Ref Range Extra Lavender Top Tube Done POC Glucose Collection Time: 08/06/18 23:38 Result Value Ref Range Glucose, POC 203 (H) 70 - 109 mg/dL documented in this enc ounter ED Notes Jose Weston MD - 08/06/2018 8:27 PM PSTFormatting of this note might be diff erent from the original. [facility] Cecilio Arias Emergency Department Encounter Note [address] [place] [address] PCP:No Physician on file [phone] CHIEF COMPLAINT: Chief Complaint Patient presents with Foot Wound ED Room: 316 HPI Cecilio Arias is a 48 y.o. male who presents to the Emergency Department Referred from urgent care for antibiotics has osteomyelitis of right great toe uncontrolled diabetes. No associated pain in the setting of neuropathy. Per Dr. Moncada growing serracia Pseudomonas Strep Staph MSSA Language line link and link knitting machine operator made available and used to collect historical details as needed. 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 Seizure (HCC) Opiate dependence (HCC) 06/20/2015 [...] Shoulder Injection; Surgeon: Nirmal Wood MD; Location: [facility] MAIN OR ELBOW SURGERY Left 11/15/2015 Procedure: Left Lateral Epicondylar Release & Injection of Left Elbow Joint ; Surgeon: Janet Wood MD; Location: [facility] MAIN OR KNEE ARTHROSCOPY Right 12/05/2014 Procedure: Right Knee Arthroscopy with Partial Medial Menisectomy and Medial- Femoral Tay droplasty; Surgeon: Marty Wood MD; Location: [facility] MAIN OR KNEE ARTHROSCOPY Right 02/11/2018 Procedure: Right Knee Arthroscopy & bilateral Elbow Injections, Lateral Tibial Chondroplas ty, Medial Femoral Chondroplasty, Partial medial meniscectomy; Surgeon: Marty Wood MD; Location: [facility] MAIN OR MANDIBLE SURGERY spinal cord injury CURRENT MEDICATIONS Current Discharge Medication List CONTINUE these medications which have NOT CHANGED Details amphetamine-dextroamphetamine (ADDERALL XR) 30 MG 24 hr capsule take 1 capsule by mouth onc e daily Refills: 0 amphetamine-dextroamphetamine (ADDERALL) 20 mg tablet take 1 tablet by mouth every morning and 1/2 tablet at noon Refills: 0 aspirin 325 mg tablet Take 1 tablet by mouth Daily. Qty: 30 tablet, Refills: 0 B-D 3CC LUER-ANDREAS SYR 97PK4-0/2 22G X 1-1/2" 3 ML MISC use to INJECT TESTOSTERONE TWICE A WE EK Refills: 0 B-D 3CC LUER-ANDREAS SYR 41TJ7-3/2 23G X 1-1/2" 3 ML MISC Refills: 0 cholecalciferol (VITAMIN D-3) 1,000 units capsule Take 1 capsule by mouth Daily. Qty: 90 capsule, Refills: 3 clomiPHENE (CLOMID) 50 MG tablet take 1/2 tablet by mouth once daily FRIDAY THROUGH FRIDAY. STOP T... (REFER TO PRESCRIPTION NOTES). Refills: 0 cyclobenzaprine (FLEXERIL) 10 mg tablet 1 tablet orally 3 times per day Qty: 90 tablet, Refills: 2 dapagliflozin (FARXIGA) 10 mg tablet Take 1 tablet by mouth Daily. Qty: 30 tablet, Refills: 1 ergocalciferol (VITAMIN D-2) 50,000 units capsule take 1 capsule by mouth weekly Refills: 0 gabapentin (NEURONTIN) 600 MG tablet take 1 tablet by mouth three times a day Refills: 0 glipiZIDE (GLUCOTROL) 10 MG tablet take 1 tablet by mouth twice a day Refills: 0 glucose blood test strips ([employer] CONTOUR TEST) strip Use as dir Qty: 100 each, Refills: 0 lisinopril (PRINIVIL, ZESTRIL) 10 mg tablet Refills: 0 metformin (GLUCOPHAGE) 1000 MG tablet Take 1,000 mg by mouth 2 times daily (with breakfast & dinner). methadone 10 mg tablet Take 0.5 tablets by mouth every 8 hours as needed. Qty: 45 tablet, Refills: 0 NARCAN 4 MG/0.1ML Refills: 0 omeprazole (PRILOSEC) 20 mg capsule Take 20 mg by mouth every morning (before breakfast). ondansetron (ZOFRAN) 4 mg tablet Take 4 mg by mouth every 8 hours as needed for Nausea. Refills: 0 oxyCODONE (ROXICODONE) 30 MG immediate release tablet Take 1 tablet by mouth every 6 hours as needed for Pain. Qty: 120 tablet, Refills: 0 rosuvastatin (CRESTOR) 40 MG tablet Refills: 0 SENNA LAX 8.6 MG tablet take 4 tablets by mouth UP TO 2 TIMES A DAY NEEDED FOR CONSTIPAT ION Refills: 0 simvastatin (ZOCOR) 40 mg tablet Take 20 mg by mouth nightly. tamsulosin (FLOMAX) 0.4 mg CAPS Take 0.4 mg by mouth daily (after breakfast). Refills: 0 VENTOLIN HFA 108 (90 Base) MCG/ACT inhaler Refills: 0 ALLERGIES Allergies Allergen Reactions Azithromycin Anaphylaxis Codeine [...] vital signs):Temp: 37.2 C (98.9 F) Pulse: 98 Resp: 16 SpO2: 99 % BP : 135/63 Body mass index is 24.1 kg/m. Constitutional: chronically ill not in distress male patient. HEENT: Atraumatic, PERRL, Oropharynx benign. Neck: [...] tested Psychiatric: Normal mood, affect and judgement. Chronic nonhealing now infected diabetic foot ulcer. EKG 12-lead EKG shows LABS Results for orders placed or performed during the hospital encounter of 08/06/18 CBC with Differential Result Value Ref Range WBC 7.1 4.0 - 11.0 K/uL RBC 3.50 (L) 4.30 - 5.70 M/uL Hgb 9.9 (L) 13.5 - 18.0 g/dL Hct 31.9 (L) 40.0 - 51.0 % MCV 91.1 83.0 - 101.0 fL MCH 28.3 28.0 - 35.0 pg MCHC 31.0 (L) 32.0 - 36.0 g/dL RDW-CV 14.1 <15.0 % RDW-SD 46.8 (H) 35.1 - 46.3 fL Platelet Count 327 140 - 440 K/uL MPV 10.4 6.5 - 12.4 fL % Neutrophils 50.8 45.0 - 82.0 % % Lymphocytes 31.7 20.0 - 45.0 % % Monocytes 9.3 4.0 - 12.0 % % Eosinophils 6.8 (H) 0.0 - 5.0 % % Basophils 1.0 0.0 - 1.0 % % Immature granulocytes 0.4 0.0 - 0.4 % Absolute Neutrophils 3.60 1.80 - 8.50 K/uL Absolute Lymphocytes 2.25 0.60 - 3.20 K/uL Absolute Monocytes 0.66 0.00 - 1.00 K/uL Absolute Eosinophils 0.48 (H) 0.00 - 0.40 K/uL Absolute Basophils 0.07 0.00 - 0.10 K/uL Absolute Imm. Granulocytes 0.03 0.00 - 0.03 K/uL nRBC 0 0 - 2 per 100 WBC's NRBC ABS 0.00 0.00 - 0.01 K/uL Comprehensive Metabolic Panel Result Value Ref Range NA 136 136 - 149 mmol/L K 3.7 3.5 - 5.1 mmol/L CL 103 98 - 109 mmol/L CO2 24 24 - 31 mmol/L ANION GAP 9 3 - 16 mmol/L GLUCOSE 331 (H) 70 - 109 mg/dL BUN 19 (H) 7 - 18 mg/dL Creatinine, Serum/Plasma 1.20 0.60 - 1.30 mg/dL eGFR if not >60 >=60 mL/min/1.73m2 CALCIUM 8.3 8.3 - 10.5 mg/dL ALBUMIN 3.1 (L) 3.2 - 5.0 g/dL Bilirubin Total 0.2 0.1 - 1.5 mg/dL Total protein 6.1 6.0 - 7.8 g/dL AST 26 10 - 42 U/L ALT 14 6 - 45 U/L ALK PHOS 80 40 - 110 U/L GLOBULIN 3.0 2.1 - 3.8 g/dL Albumin/Globulin ratio 1.0 0.8 - 2.0 BUN/CREA 15.8 C-Reactive Protein, High Sensitivity Result Value Ref Range CRP, High Sensitive 2.66 <=3.00 mg/L Procalcitonin Result Value Ref Range Procalcitonin <0.05 <=0.50 ng/mL Comment Lactic Acid Result Value Ref Range LACTATE 3.4 (H) 0.5 - 2.2 mmol/L Extra Green Top Tube Result Value Ref Range Extra Green Top Tube Done Extra Lavender Top Tube Result Value Ref Range Extra Lavender Top Tube Done Lactic Acid Result Value Ref Range LACTATE 1.0 0.5 - 2.2 mmol/L POC Glucose Result Value Ref Range Glucose, POC 203 (H) 70 - 109 mg/dL IMAGING STUDIES (X-Rays interpreted by ED Physician) ED COURSE & MEDICAL DECISION MAKING Pertinent Labs & Imaging studies were reviewed along with EMS notes and assisted record s if applicable. (See chart for details) Medications and Allergy list reviewed. Nurses note and old records were reviewed The patient was seen and examined, The patient was placed on the monitor and monitored. An iv was placed. The patient was given a normal saline infusion. Screening labs are ordered remarkable for elevated lactate and anemia. Additionally he's fe brile and tachycardic. Started on vancomycin and cefepime. Will be admitted for further workup treatment and monitoring. Last Set of Vital Signs: Temp: 37.2 C (98.9 F) Pulse: 76 Resp: 16 SpO2: 94 % BP: 105/65 FINAL IMPRESSION ICD-10-CM ICD-9-CM 1. Severe sepsis ([facility]) A41.9 038.9 R65.20 995.92 2. Acute osteomyelitis of toe of right foot ([facility]) M86.171 730.07 3. Type 2 diabetes mellitus with other specified complication, without long-term current us e of insulin ([facility]) E11.69 250.80 4. Hyperlipidemia, unspecified hyperlipidemia type E78.5 272.4 Current Discharge Medication List Administrations This Visit cefepime (MAXIPIME) 2 g in sodium chloride 0.9% 50 mL IVPB Admin Date 08/06/2018 Action New Bag Dose 2 g Rate 100 mL/hr Route Intravenous Administered By Lilly Melgar RN sodium chloride 0.9% (NS) bolus 1,000 mL Admin Date 08/06/2018 Action New Bag Dose 1000 mL Rate 1,000 mL/hr Route Intravenous Administered By Shauna Benjamin RN vancomycin 1,500 mg in sodium chloride 0.9% 250 mL IVPB Admin Date 08/06/2018 Action New Bag Dose 1500 mg Rate 176.7 mL/hr Route Intravenous Administered By Shauna Benjamin RN Portions of this chart were created with [employer] voice recognition software. Inadvertent so und alike substitutions may be present and are unintentional Jose Weston MD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 POC Glucose (08/09/2018 1:14 AM PST) + +---------+ + + + | Component | Value | Ref Range | Performed | Pathologist | | | | | At | Signature | + +---------+ + + + | Glucose, | 344 (H) | 70 - 109 mg/dL | [...] + | [facility] | [address] | [place] | [phone] | | [facility] | | [address] | | | - LABORATORY | | | | + + + + + POC Glucose (08/08/2018 5:17 PM PST) + +---------+ + + + | Component | Value | Ref Range | Performed | Pathologist | | | | | At | Signature | + +---------+ + + + | Glucose, | 311 (H) | 70 - 109 mg/dL | [...] ST. | [address] | [place], [place] | [phone] | | [facility] | | [address] | | | - LABORATORY | | | | + + + + + ECHO Complete (08/08/2018 2:40 PM PST) + +---------+ + + + | Component | Value | Ref Range | Performed | Pathologist | | | | | At | Signature | + +---------+ + + + | BASELINE | 119/60 | mmHg | [facility] | | | BLOOD | | | | | | PRESSURE | | | | | + +---------+ + + + | Patient | 177 lbs | | [facility] | | | Weight | | | | | | (lbs) | | | | | + +---------+ + + + | Patient | 72 in | | [facility] | | | Height | | | | | + +---------+ + + + | LVIDd | 5 | cm | [facility] | | + +---------+ + + + | FS | 37 | % | [facility] | | + +---------+ + + + | LA volume | 52.85 | mL | [facility] | | + +---------+ + + + | Ascending | 3.39 | cm | [facility] | | | aorta | | | | | + +---------+ + + + | Aortic arch | 2.63 | cm | [facility] | | + +---------+ + + + | MV Area by | 4.44 | cm2 | [facility] | | | P 1/2 | | | | | | method | | | | | + +---------+ + + + | IVRT | 116.03 | msec | [facility] | | + +---------+ + + + | MV peak | 2.42 | mmHg | [facility] | | | gradient | | | | | + +---------+ + + + | MV Pressure | 49.57 | msec | [facility] | | | 1/2 time | | | | | + +---------+ + + + | LA Volume | 26 | mL/m2 | [facility] | | | Index | | | | | + +---------+ + + + | LV | 8.61 | cm | [facility] | | | Diastolic | | | | | | Length 4C | | | | | + +---------+ + + + | LV Systolic | 17 | cm2 | [facility] | | | Area PSAX | | | | | + +---------+ + + + | RV | 3.45 | cm | [facility] | | | Diastolic | | | | | | Basal | | | | | | Diameter | | | | | + +---------+ + + + | LV | 69 | % | [facility] | | | Ivory's | | | | | | Biplane EF | | | | | + +---------+ + + + | LV ED | 97.73 | ml | [facility] | | | Volume | | | | | | (Ivory's) | | | | | + +---------+ + + + | LV ED | 48 | ml/m2 | [facility] | | | Volume | | | | | | Index | | | | | + +---------+ + + + | LV ES | 30.08 | ml | [facility] | | | Volume | | | | | + +---------+ + + + | MV E' | 11.24 | cm/s | [facility] | | | Lateral | | | | | | Velocity | | | | | + +---------+ + + + | MV E' | 12.12 | cm/s | [facility] | | | Septal | | | | | | Velocity | | | | | + +---------+ + + + | MV | 469.04 | cm/s2 | [facility] | | | Deceleratio | | | | | | n Juncos | | | | | + +---------+ + + + | MV | 170.94 | msec | [facility] | | | Deceleratio | | | | | | n Time | | | | | + +---------+ + + + | MV E/A | 1.14 | | [facility] | | | Ratio | | | | | + +---------+ + + + | MV Peak | 67.96 | cm/s | [facility] | | | A-Wave | | | | | + +---------+ + + + | MV Peak | 77.73 | cm/s | [facility] | | | E-Wave | | | | | + +---------+ + + + | RA Area | 17 | cm2 | [facility] | | + +---------+ + + + | LA/Aorta | 0.97 | | [facility] | | | Ratio | | | | | + +---------+ + + + | LA Area | 19.1 | cm2 | [facility] | | + +---------+ + + + | LA Systolic | 10.64 | mmHg | [facility] | | | Pressure | | | | | + +---------+ + + + | MV E/E | 6.41 | | [facility] | | | SEPTAL | | | | | + +---------+ + + + | MV E/E | 6.92 | | [facility] | | | LATERAL | | | | | + +---------+ + + + | LV ES | 15 | ml/m2 | [facility] | | | Volume | | | | | | Index | | | | | + +---------+ + + + | LV Area | 33.8 | cm2 | [facility] | | | Diastolic | | | | | + +---------+ + + + | Heart Rate | 70 | | [facility] | | + +---------+ + + + | Aortic Root | 3.5 | cm | [facility] | | | Diameter | | | | | + +---------+ + + + | IVS | 1 | cm | [facility] | | | Diastolic | | | | | | Thickness | | | | | | MM | | | | | + +---------+ + + + | LVPW | 0.97 | cm | [facility] | | | Diastolic | | | | | | Thickness | | | | | | MM | | | | | + +---------+ + + + | IVS | 1.57 | cm | [facility] | | | Systolic | | | | | | Thickness | | | | | | MM | | | | | + +---------+ + + + | LV Systolic | 3.13 | cm | [facility] | | | Diameter | | | | | | MM | | | | | + +---------+ + + + | LVPW | 1.73 | cm | [facility] | | | Systolic | | | | | | Thickness | | | | | | MM | | | | | + +---------+ + + + | AV Cusp | 1.93 | cm | [facility] | | | Seperation | | | | | | MM | | | | | + +---------+ + + + | LA Systolic | 3.4 | cm | [facility] | | | Diameter | | | | | | MM | | | | | + +---------+ + + + | TAPSE | 2.8 | cm | [facility] | | + +---------+ + + + | LVEF-TTE | 60 | % | [facility] | | | TRANSTHORAC | | | | | | IC ECHO | | | | | + +---------+ + + + + + | Specimen | + + | | + + + + + | Narrative | Performed At | + + + | 1. Normal | [facility] | | left ventricular chamber diameter, wall thickness, and systolic | | | function 2. No significant cardiac valvular abnormality identified | | | 3. No valvular vegetations identified | | | | | + + + + +---------+ + + | Performing | Address | City/State/Zipcode | Phone Number | | Organization | | | | + +---------+ + + | [facility] | | | | + +---------+ + + POC Glucose (08/08/2018 12:11 PM PST) + +---------+ + + + | Component | Value | Ref Range | Performed | Pathologist | | | | | At | Signature | + +---------+ + + + | Glucose, | 318 (H) | 70 - 109 mg/dL | [...] [address] | [place] | [phone] | | [facility] | | [address] | | | - LABORATORY | | | | + + + + + Culture, Blood (08/08/2018 7:51 AM PST) + + + + + [...] ST. | [address] | [place], [place] | [phone] | | [facility] | | [address] | | | - LABORATORY | | | | + + + + + Hemoglobin A1C (08/08/2018 6:59 AM PST) + + + + + + | Component | Value | Ref Range | Performed | Pathologist | | | | | At | Signature | + + + + + + | Hemoglobin | 12.9 (H) | 4.3 - 6.0 % | [facility] | | | A1c | | | [facility] | | | | | | MEDICAL | | | | | | CENTER - | | | | | | LABORATORY | | + + + + + + | Estimated | 324 | mg/dL | [facility] | | | Average | | | [facility] | | | Glucose | | | MEDICAL | | | [...] [address] | [place] | [phone] | | [facility] | | [address] | | | - LABORATORY | | | | + + + + + Culture, Blood (08/08/2018 6:59 AM PST) + + + + + [...] + | [facility] | [address] | [place] | [phone] | | [facility] | | [address] | | | - LABORATORY | | | | + + + + + POC Glucose (08/08/2018 6:34 AM PST) + +---------+ + + + | Component | Value | Ref Range | Performed | Pathologist | | | | | At | Signature | + +---------+ + + + | Glucose, | 271 (H) | 70 - 109 mg/dL | [...] [address] | [place] | [phone] | | [facility] | | [address] | | | - LABORATORY | | | | + + + + + POC Glucose (08/07/2018 9:12 PM PST) + +---------+ + + [...] [address] | [place] | [phone] | | [facility] | | [address] | | | - LABORATORY | | | | + + + + + POC Glucose (08/07/2018 5:28 PM PST) + +---------+ + + + | Component | Value | Ref Range | Performed | Pathologist | | | | | At | Signature | + +---------+ + + + | Glucose, | 192 (H) | 70 - 109 mg/dL | [...] + | [facility] | [address] | [place] | [phone] | | [facility] | | [address] | | | - LABORATORY | | | | + + + + + POC Glucose (08/07/2018 11:51 AM PST) + +---------+ + + + | Component | Value | Ref Range | Performed | Pathologist | | | | | At | Signature | + +---------+ + + + | Glucose, | 193 (H) | 70 - 109 mg/dL | [...] + | [facility] | [address] | [place] | [phone] | | [facility] | | [address] | | | - LABORATORY | | | | + + + + + MRI Foot Right wo Contrast (08/07/2018 7:07 AM PST) + + | Specimen | + + | | + + + + + | Narrative | Performed At | + + + | MRI FOOT RIGHT WO CONTRAST 08/07/2018 6:14 AM HISTORY: R 1st | [facility] | | toe osteo. COMPARISON: 07/22/2018 PROTOCOL: Sagittal proton | | | density fat sat, coronal proton density fat sat, axial proton density | | | fat sat, sagittal T1, coronal T1, axial T1, sagittal STIR. | | | FINDINGS: Diffuse loss of the normal T1 bright bone marrow signal | | | with T2 bright edema within the mid and distal aspect of the first | | | distal phalanx with cortical erosion and adjacent soft tissue edema | | | directly underlying the area of the plantar surface ulceration. | | | Findings are compatible with osteomyelitis. No other evidence of | | | osteomyelitis. No acute fracture or traumatic malalignment. Mild | | | edema is seen along the plantar intrinsic musculature underlying the | | | first metatarsal. IMPRESSION - Osteomyelitis involving the | | | majority of the first distal phalanx. No evidence of involvement | | | of the first IP joint. Surrounding soft tissue edema, ulceration, | | | and likely cellulitis along the plantar aspect of the first distal | | | phalanx. Dictated and Signed by: Fabien Michelle MD | | | Electronically signed: 08/07/2018 10:26 AM | | + + + + + | Procedure Note | + + | Gloria, Rad Results In - 08/07/2018 10:29 AM PST MRI FOOT RIGHT WO CONTRAST 08/07/2018 | | 6:14 AM HISTORY: R 1st toe osteo.COMPARISON: 07/22/2018PROTOCOL: Sagittal proton density | | fat sat, coronal proton density fat sat, axialproton density fat sat, sagittal T1, | | coronal T1, axial T1, sagittal STIR.FINDINGS:Diffuse loss of the normal T1 bright bone | | marrow signal with T2 bright edemawithin the mid and distal aspect of the first distal | | phalanx with corticalerosion and adjacent soft tissue edema directly underlying the area | | of theplantar surface ulceration. Findings are compatible with osteomyelitis.No other | | evidence of osteomyelitis. No acute fracture or traumatic malalignment.Mild edema is | | seen along the plantar intrinsic musculature underlying the firstmetatarsal.IMPRESSION | | -Osteomyelitis involving the majority of the first distal phalanx.No evidence of | | involvement of the first IP joint.Surrounding soft tissue edema, ulceration, and likely | | cellulitis along theplantar aspect of the first distal phalanx.Dictated and Signed by: | | Fabien Michelle MD Electronically signed: 08/07/2018 10:26 AM | |plantar surface ulceration. Findings are compatible with osteomyelitis. | | | |No other evidence of osteomyelitis. No acute fracture or traumatic malalignment. | |Mild edema is seen along the plantar intrinsic musculature underlying the first | |metatarsal. | | | |IMPRESSION - | |Osteomyelitis involving the majority of the first distal phalanx. | | | |No evidence of involvement of the first IP joint. | | | |Surrounding soft tissue edema, ulceration, and likely cellulitis along the | |plantar aspect of the first distal phalanx. | | | |Dictated and Signed by: Fabien Michelle MD | | Electronically signed: 08/07/2018 10:26 AM | + + + +---------+ + + | Performing | Address | City/State/Zipcode | Phone Number | | Organization | | | | + +---------+ + + | [facility] | | | | + +---------+ + + Magnesium (08/07/2018 6:17 AM PST) + +---------+ + + + | Component | Value | Ref Range | Performed | Pathologist | | | | | At | Signature | + +---------+ + + + | Magnesium | 1.3 (L) | 1.8 - 2.5 mg/dL | [facility] | | | | [...] [address] | [place] | [phone] | | [facility] | | [address] | | | - LABORATORY | | | | + + + + + CBC with Differential (08/07/2018 6:17 AM PST) + + + + + + | Component | Value | Ref Range | Performed | Pathologist | | | | | At | Signature | + + + + + + | White Blood | 7.9 | 4.0 - 11.0 K/uL | [facility] | | | Cells | | | [facility] | | | | | | MEDICAL | | | | | | CENTER - | | | | | | LABORATORY | | + + + + + + | Red Blood | 3.51 (L) | 4.30 - 5.70 | [facility] [...] + + + + | MCV | 91.2 | 83.0 - 101.0 fL | [facility] [...] + + + + | MCHC | 31.3 (L) | 32.0 - 36.0 | [facility] | | | | | g/dL | [facility] | | | | | | MEDICAL | | | | | | CENTER - | | | | | | LABORATORY | | + + + + + + | RDW-CV | 14.1 | <15.0 % | [facility] | | | | | | [facility] | | | | | | MEDICAL | | | | | | CENTER - | | | | | | LABORATORY | | + + + + + + | RDW-SD | 47.2 (H) | 35.1 - 46.3 fL | [facility] | | | | | | [facility] | | | | | | MEDICAL | | | | | | CENTER - | | | | | | LABORATORY | | + + + + + + | Platelet | 335 | 140 - 440 K/uL | [facility] [...] + + + + | % | 50.3 | 45.0 - 82.0 % | [facility] | | | Neutrophils | | | [facility] | | | | | | MEDICAL | | | | | | CENTER - | | | | | | LABORATORY | | + + + + + + | % | 32.4 | 20.0 - 45.0 % | [facility] | | | Lymphocytes | | | [facility] | | | | | | MEDICAL | | | | | | CENTER - | | | | | | LABORATORY | | + + + + + + | % Monocytes | 8.7 | 4.0 - 12.0 % | [facility] | | | | | | [facility] | | | | | | MEDICAL | | | | | | CENTER - | | | | | | LABORATORY | | + + + + + + | % | 7.5 (H) | 0.0 - 5.0 % | [facility] [...] + + + | % Immature | 0.3 | 0.0 - 0.4 % | [facility] | | | Granulocyte | | | [facility] | | | s | | | MEDICAL | | | | | | CENTER - | | | | | | LABORATORY | | + + + + + + | Absolute | 3.97 | 1.80 - 8.50 | [facility] | | | Neutrophils | | K/uL | [facility] | | | | | | MEDICAL | | | | | | CENTER - | | | | | | LABORATORY | | + + + + + + | Absolute | 2.56 | 0.60 - 3.20 | [facility] | | | Lymphocytes | | K/uL | [facility] | | | | | | MEDICAL | | | | | | CENTER - | | | | | | LABORATORY | | + + + + + + | Absolute | 0.69 | 0.00 - 1.00 | [facility] | | | Monocytes | | K/uL | [facility] | | | | | | MEDICAL | | | | | | CENTER - | | | | | | LABORATORY | | + + + + + + | Absolute | 0.59 (H) | 0.00 - 0.40 | [facility] | [...] + | [facility] | [address] | [place] | [phone] | | [facility] | | [address] | | | - LABORATORY | | | | + + + + + Basic Metabolic Panel (08/07/2018 6:17 AM PST) + + + + + [...] + + + + | Cl | 105 | 98 - 109 mmol/L | [facility] [...] + + + | Anion Gap | 5 | 3 - 16 mmol/L | [facility] | | | | | | [facility] | | | | | | MEDICAL | | | | | | CENTER - | | | | | | LABORATORY | | + + + + + + | Glucose | 296 (H) | 70 - 109 mg/dL | [facility] | | | | | | [facility] | | | | | | MEDICAL | | | | | | CENTER - | | | | | | LABORATORY | | + + + + + + | BUN | 13 | 7 - 18 mg/dL | [facility] | | | | | | [facility] | | | | | | MEDICAL | | | | | | CENTER - | | | | | | LABORATORY | | + + + + + + | Creatinine | 1.03 | 0.60 - 1.30 | [facility] | [...] mL/min/1.73m2 | [facility] | | | [place] | RATE,ESTIMATED | | MEDICAL | | | | mL/min/1.34s3Hnid than | | CENTER - | | [...] + + + + | Calcium | 8.5 | 8.3 - 10.5 | [facility] | | | | | mg/dL | [facility] | | | | | | MEDICAL | | | | | | CENTER - | | | | | | LABORATORY | | + + + + + + | BUN/Creatin | 12.6 | | [facility] | | | ine [...] [address] | [place] | [phone] | | [facility] | | [address] | | | - LABORATORY | | | | + + + + + POC Glucose (08/07/2018 1:05 AM PST) + +---------+ + + + | Component | Value | Ref Range | Performed | Pathologist | | | | | At | Signature | + +---------+ + + + | Glucose, | 171 (H) | 70 - 109 mg/dL | [...] [address] | [place] | [phone] | | [facility] | | [address] | | | - LABORATORY | | | | + + + + + Drugs of Abuse, Screen, Urine (08/07/2018 1:02 AM PST) + + + + + [...] | | | Screen, | | | [facility] | | | Urine | | | [...] [address] | [place] | [phone] | | [facility] | | [address] | | | - LABORATORY | | | | + + + + + Lactic Acid (08/06/2018 11:39 PM PST) + +-------+ + + + | Component | Value | Ref Range | Performed | Pathologist | | | | | At | Signature | + +-------+ + + + | Lactate | 1.0 | 0.5 - 2.2 | [facility] | | | | | mmol/L | [facility] | | | | | | MEDICAL [...] [address] | [place] | [phone] | | [facility] | | [address] | | | - LABORATORY | | | | + + + + + POC Glucose (08/06/2018 11:38 PM PST) + +---------+ + + + | Component | Value | Ref Range | Performed | Pathologist | | | | | At | Signature | + +---------+ + + + | Glucose, | 203 (H) | 70 - 109 mg/dL | [facility] | | | POC | | | [facility] | | | | | | [...] + | [facility] | [address] | [place] | [phone] | | [facility] | | [address] | | | - LABORATORY | | | | + + + + + Culture, Blood (08/06/2018 9:56 PM PST) + + + + + [...] [address] | [place] | [phone] | | [facility] | | [address] | | | - LABORATORY | | | | + + + + + Culture, Blood (08/06/2018 9:56 PM PST) + + + + + [...] + | [facility] | [address] | [place], [place] | [phone] | | [facility] | | [address] | | | - LABORATORY | | | | + + + + + Extra Lavender Top Tube (08/06/2018 8:43 PM PST) + +-------+ + + + | Component | Value | Ref Range | Performed | Pathologist | | | | | At | Signature | + +-------+ + + + | Extra | Done | | [facility] | | | Lavender | | | [facility] | | | Top Tube | | | MEDICAL | | | [...] + | [facility] | [address] | [place] | [phone] | | [facility] | | [address] | | | - LABORATORY | | | | + + + + + Extra Green Top Tube (08/06/2018 8:43 PM PST) + +-------+ + + + | Component | Value | Ref Range | Performed | Pathologist | | | | | At | Signature | + +-------+ + + + | Extra Green | Done | | [facility] | | | Top Tube | | | [facility] | | [...] + | [facility] | [address] | [place] | [phone] | | [facility] | | [address] | | | - LABORATORY | | | | + + + + + Lactic Acid (08/06/2018 8:43 PM PST) + +---------+ + + + | Component | Value | Ref Range | Performed | Pathologist | | | | | At | Signature | + +---------+ + + + | Lactate | 3.4 (H) | 0.5 - 2.2 | [facility] | [...] [address] | [place] | [phone] | | [facility] | | [address] | | | - LABORATORY | | | | + + + + + Procalcitonin (08/06/2018 8:43 PM PST) + + + + + [...] ST. | [address] | [place] | [phone] | | [facility] | | [address] | | | - LABORATORY | | | | + + + + + C-Reactive Protein, High Sensitivity (08/06/2018 8:43 PM PST) + +-------+ + + + | Component | Value | Ref Range | Performed | Pathologist | | | | | At | Signature | + +-------+ + + + | CRP, High | 2.66 | <=3.00 mg/L | [facility] | | | Sensitive | | | [facility] | | [...] | + + + + + | [facility] | [address] | [place] | [phone] | | [facility] | | [address] | | | - LABORATORY | | | | + + + + + Comprehensive Metabolic Panel (08/06/2018 8:43 PM PST) + + + + + [...] + + + + | Cl | 103 | 98 - 109 mmol/L | [facility] | | | | | | [facility] | | | | | | MEDICAL | | | | | | CENTER - | | | | | | LABORATORY | | + + + + + + | CO2 | 24 | 24 - 31 mmol/L | [facility] [...] + + + + | Glucose | 331 (H) | 70 - 109 mg/dL | [facility] | | | | | | [facility] | | | | | | MEDICAL | | | | | | CENTER - | | | | | | LABORATORY | | + + + + + + | BUN | 19 (H) | 7 - 18 mg/dL | [facility] | | | | | | [facility] | | | | | | MEDICAL | | | | | | CENTER - | | | | | | LABORATORY | | + + + + + + | Creatinine | 1.20 | 0.60 - 1.30 | [facility] | | | | | mg/dL | [facility] | | | | | | MEDICAL | | | | | | CENTER - | | | | | | LABORATORY | | + + + + + + | eGFR, | >60Comment: GLOMERULAR | >=60 | [facility] | | | non- | FILTRATION | mL/min/1.73m2 | [facility] | | | [place] | RATE,ESTIMATED | | MEDICAL | | | | mL/min/1.68n9Chfv than | | CENTER - | | [...] + + + + | Calcium | 8.3 | 8.3 - 10.5 | [facility] | | | | | mg/dL | [facility] | | | | | | MEDICAL | | | | | | CENTER - | | | | | | LABORATORY | | + + + + + + | Albumin | 3.1 (L) | 3.2 - 5.0 g/dL | [facility] | | | | | | [facility] | | | | | | MEDICAL | | | | | | CENTER - | | | | | | LABORATORY | | + + + + + + | Bilirubin | 0.2Comment: This is an | 0.1 - 1.5 [...] + + + + | Total | 6.1 | 6.0 - 7.8 g/dL | [facility] | | | Protein | | | [facility] | | | | | | MEDICAL | | | | | | CENTER - | | | | | | LABORATORY | | + + + + + + | AST | 26Comment: This is an | 10 - 42 [...] + + + + | ALT | 14Comment: This is an | 6 - 45 [...] + + + + | Alkaline | 80Comment: This is an | 40 - 110 [...] + + + + | Globulin | 3.0 | 2.1 - 3.8 g/dL | [facility] | | | | | | [facility] | | | | | | [facility] | | | | | | [facility] - | | | | | | LABORATORY | | + + + + + + | Albumin/Michelle | 1.0 | 0.8 - 2.0 | [facility] | | | bulin Ratio | | | [facility] | | | [facility] | [facility] | | | | | | [facility] - | | | | | | LABORATORY | | + + + + + + | BUN/Creatin | 15.8 | | [facility] | | | ine [...] | [address] | [place] | [phone] | | [facility] | | [id number] | | | - LABORATORY | | | | + + + + + CBC with Differential (08/06/2018 8:43 PM PST) + + + + + + | Component | Value | Ref Range | Performed | Pathologist | | | | | At | Signature | + + + + + + | White Blood | 7.1 | 4.0 - 11.0 K/uL | [facility] | | | Cells | | | [facility] | | | | | | [facility] | | | | | | [facility] - | | | | | | LABORATORY | | + + + + + + | Red Blood | 3.50 (L) | 4.30 - 5.70 | [facility] | | | Cells | | M/uL | [facility] | | | | | | [facility] | | | | | | [facility] - | | | | | | LABORATORY | | + + + + + + | Hemoglobin | 9.9 (L) | 13.5 - 18.0 | [facility] | | | | | g/dL | [facility] | | | | | | [facility] | | | | | | [facility] - | | | | | | LABORATORY | | + + + + + + | Hematocrit | 31.9 (L) | 40.0 - 51.0 % | [facility] | | | | | | [facility] | | | | | | [facility] | | | | | | [facility] - | | | | | | LABORATORY | | + + + + + + | MCV | 91.1 | 83.0 - 101.0 fL | [facility] [...] + + + + | MCHC | 31.0 (L) | 32.0 - 36.0 | [facility] | | | | | g/dL | [facility] | | | | | | [facility] | | | | | | [facility] - | | | | | | LABORATORY | | + + + + + + | RDW-CV | 14.1 | <15.0 % | [facility] | | | | | | [facility] | | | | | | [facility] | | | | | | [facility] - | | | | | | LABORATORY | | + + + + + + | RDW-SD | 46.8 (H) | 35.1 - 46.3 fL | [facility] | | | | | | [facility] | | | | | | [facility] | | | | | | [facility] - | | | | | | LABORATORY | | + + + + + + | Platelet | 327 | 140 - 440 K/uL | [facility] | | | Count | | | [facility] | | | | | | [facility] | | | | | | [facility] - | | | | | | LABORATORY | | + + + + + + | MPV | 10.4 | 6.5 - 12.4 fL | [facility] | | | | | | [facility] | | | | | | [facility] | | | | | | [facility] - | | | | | | LABORATORY | | + + + + + + | % | 50.8 | 45.0 - 82.0 % | [facility] | | | Neutrophils | | | [facility] | | | | | | [facility] | | | | | | C[facility] - | | | | | | LABORATORY | | + + + + + + | % | 31.7 | 20.0 - 45.0 % | [facility] | | | Lymphocytes | | | [facility] | | | | | | [facility] | | | | | | [facility] - | | | | | | LABORATORY | | + + + + + + | % Monocytes | 9.3 | 4.0 - 12.0 % | [facility] | | | | | | [facility] | | | | | | [facility] | | | [facility] - | | | | | | LABORATORY | | + + + + + + | % | 6.8 (H) | 0.0 - 5.0 % | [facility] | | | Eosinophils | | | [facility] | | | | | | [facility] | | | | | | [facility] - | | | | | | LABORATORY | | + + + + + + | % Basophils | 1.0 | 0.0 - 1.0 % | [facility] | | | | | | [facility] | | | | | | [facility] | | | | | | [facility] - | | | | | | LABORATORY | | + + + + + + | % Immature | 0.4 | 0.0 - 0.4 % | [facility] | | | Granulocyte | | | [facility] | | | s | | | MEDICAL | | | | | | CENTER - | | | | | | LABORATORY | | + + + + + + | Absolute | 3.60 | 1.80 - 8.50 | [facility] | | | Neutrophils | | K/uL | [facility] | | | | | | [facility] | | | | | | C[facility] - | | | | | | LABORATORY | | + + + + + + | Absolute | 2.25 | 0.60 - 3.20 | [facility] | | | Lymphocytes | | K/uL | [facility] | | | | | | [facility] | | | | | | [facility] - | | | | | | LABORATORY | | + + + + + + | Absolute | 0.66 | 0.00 - 1.00 | [facility] | | | Monocytes | | K/uL | [facility] | | | | | | [facility] | | | | | | [facility] - | | | | | | LABORATORY | | + + + + + + | Absolute | 0.48 (H) | 0.00 - 0.40 | [facility] | [...] + + + + | Absolute | 0.03 | 0.00 - 0.03 | [facility] | [...] + + | [facility] | [address] | [place] | [phone] | | [facility] | | [address] | | | - LABORATORY | | | | + + + + + documented in this encounter Visit Diagnoses + + | Diagnosis | + + | Severe sepsis (HCC) - Primary | + + | Acute osteomyelitis of toe of right foot (HCC) Acute osteomyelitis, ankle and foot | + + | Type 2 diabetes mellitus with other specified complication, without long-term current | | use of insulin (HCC) | + + | Hyperlipidemia, unspecified hyperlipidemia type | + + | Decreased activities of daily living (ADL) | + + | PICC (peripherally inserted central catheter) in place Fitting and adjustment of | | vascular catheter | + + documented in this encounter Administered Medications + +--------+ +-------+------+------+ | Medication Order | MAR | Action | Dose | Rate | Site | | | Action | Date | | | | + +--------+ +-------+------+------+ | amphetamine-dextroamphetamine | Given | 08/09/20 | 30 mg | | | | (ADDERALL) tablet 30 mg 30 mg, | | 18 8:01 | | | | | Oral, DAILY, First dose on Fri | | AM PST | | | | | 08/07/18 at 0900 | | | | | | + +--------+ +-------+------+------+ +-------+ +-------+---+---+ | Given | 08/08/20 | 30 mg | | | | | 18 8:42 | | | | | | AM PST | | | | +-------+ +-------+---+---+ | Given | 08/07/20 | 30 mg | | | | | 18 8:31 | | | | | | AM PST | | | | +-------+ +-------+---+---+ +---+---+ | | | +---+---+ + +-------+ +--------+---+---+ | aspirin tablet 325 mg 325 mg, | Given | 08/09/20 | 325 mg | | | | Oral, DAILY, First dose on Fri | | 18 8:02 | | | | | 08/07/18 at 0900 | | AM PST | | | | + +-------+ +--------+---+---+ +-------+ +--------+---+---+ | Given | 08/08/20 | 325 mg | | | | | 18 8:42 | | | | | | AM PST | | | | +-------+ +--------+---+---+ | Given | 08/07/20 | 325 mg | | | | | 18 8:32 | | | | | | AM PST | | | | +-------+ +--------+---+---+ +---+---+ | | | +---+---+ + +-------+ +-------+---+---+ | atorvaSTATin (LIPITOR) tablet | Given | 08/09/20 | 20 mg | | | | 20 mg 20 mg, Oral, NIGHTLY, | | 18 12:57 | | | | | First dose on Fri08/07/18 at | | AM PST | | | | | 0000 | | | | | | + +-------+ +-------+---+---+ +-------+ +-------+---+---+ | Given | 08/07/20 | 20 mg | | | | | 18 9:08 | | | | | | PM PST | | | | +-------+ +-------+---+---+ | Given | 08/07/20 | 20 mg | | | | | 18 1:06 | | | | | | AM PST | | | | +-------+ +-------+---+---+ +---+---+ | | | +---+---+ + +---------+ +-----+-------+---+ | cefepime (MAXIPIME) 2 g in | New Bag | 08/08/20 | 2 g | 100 | | | sodium chloride 0.9% 50 mL IVPB | | 18 6:31 | | mL/hr | | | 2 g, Intravenous, Administer over | | AM PST | | | | | 30 Minutes, EVERY 8 HOURS (3 | | | | | | | times per day), First dose on Светлана | | | | | | | 08/06/18 at 2050, Activate | | | | | | | system and mix before use., | | | | | | | Indications: Osteomyelitis | | | | | | + +---------+ +-----+-------+---+ +---------+ +-----+-------+---+ | New Bag | 08/07/20 | 2 g | 100 | | | | 18 10:00 | | mL/hr | | | | PM PST | | | | +---------+ +-----+-------+---+ | New Bag | 08/07/20 | 2 g | 100 | | | | 18 2:46 | | mL/hr | | | | PM PST | | | | +---------+ +-----+-------+---+ +---+---+ | | | +---+---+ + +---------+ +-----+-------+---+ | cefepime (MAXIPIME) 2 g in | New Bag | 08/09/20 | 2 g | 100 | | | sodium chloride 0.9% 50 mL IVPB | | 18 8:07 | | mL/hr | | | 2 g, Intravenous, Administer over | | AM PST | | | | | 30 Minutes, EVERY 12 HOURS (2 | | | | | | | times per day), First dose (after | | | | | | | last modification) on Sat | | | | | | | 08/08/18 at 2100, Activate system | | | | | | | and mix before use., | | | | | | | Indications: Osteomyelitis | | | | | | + +---------+ +-----+-------+---+ +---------+ +-----+-------+---+ | New Bag | 08/09/20 | 2 g | 100 | | | | 18 12:57 | | mL/hr | | | | AM PST | | | | +---------+ +-----+-------+---+ +---+---+ | | | +---+---+ + +-------+ +-------+---+---+ | cyclobenzaprine (FLEXERIL) | Given | 08/07/20 | 10 mg | | | | tablet 10 mg 10 mg, Oral, EVERY | | 18 1:15 | | | | | 8 HOURS PRN, Muscle spasms, | | AM PST | | | | | Starting [facility] 08/06/18 at 2347 | | | | | | + +-------+ +-------+---+---+ + +---+ | | | + +---+ | dextrose 50% injection 12.5 g | | | 12.5 g, Intravenous, PRN, Low | | | Blood Sugar, Starting Светлана | | | 08/06/18 at 2351 | | + +---+ | | | + +---+ + +-------+ +-------+---+ + | enoxaparin (LOVENOX) 40 mg/0.4 | Given | 08/09/20 | 40 mg | | Abdomen- | | mL injection 40 mg 40 mg, | | 18 8:06 | | | LLQ | | Subcutaneous, EVERY 24 HOURS | | AM PST | | | | | (Daily), First dose on Fri | | | | | | | 08/07/18 at 0900 | | | | | | + +-------+ +-------+---+ + +-------+ +-------+---+ + | Given | 08/08/20 | 40 mg | | Abdomen- | | | 18 8:42 | | | RLQ | | | AM PST | | | | +-------+ +-------+---+ + | Given | 08/07/20 | 40 mg | | Abdomen- | | | 18 8:32 | | | LLQ | | | AM PST | | | | +-------+ +-------+---+ + +---+---+ | | | +---+---+ + +-------+ +--------+---+---+ | gabapentin (NEURONTIN) capsule | Given | 08/09/20 | 600 mg | | | | 600 mg 600 mg, Oral, 3 TIMES | | 18 8:02 | | | | | DAILY, First dose on Fri08/07/18 | | AM PST | | | | | at 0900 | | | | | | + +-------+ +--------+---+---+ +-------+ +--------+---+---+ | Given | 08/09/20 | 600 mg | | | | | 18 12:56 | | | | | | AM PST | | | | +-------+ +--------+---+---+ | Given | 11/17/20 | 600 mg | | | | | 18 1:47 | | | | | | PM PST | | | | +-------+ +--------+---+---+ +---+---+ | | | +---+---+ + +-------+ +---------+---+ + | insulin glargine (LANTUS | Given | 08/08/20 | 8 Units | | Abdomen- | | SOLOSTAR) 100 units/mL injection | | 18 11:00 | | | RLQ | | (pen) 8 Units 8 Units (rounded | | PM PST | | | | | from 8.06 Units = 0.1 | | | | | | | Units/kg/day | | | | | | | 80.6 kg), Subcutaneous, NIGHTLY, | | | | | | | First dose on 08/08/18 at | | | | | | | 2100, For subcutaneous use only. | | | | | | | Basal (long acting) insulin., | | | | | | + +-------+ +---------+---+ + +---+---+ | | | +---+---+ + +-------+ +---------+---+ + | insulin lispro (humaLOG | Given | 08/08/20 | 6 Units | | Arm-Righ | | KWIKPEN) 100 units/mL injection | | 18 8:41 | | | t Upper | | (pen) 0-12 Units 0-12 Units, | | AM PST | | | | | Subcutaneous, 4 TIMES DAILY WITH | | | | | | | MEALS & NIGHTLY, First dose on | | | | | | | Fri08/07/18 at 0000, CORRECTION | | | | | | [...] | | | | | | | 7546-3125 Use NIGHT DOSE for | | | | | | | doses scheduled: HS, 3AM, | | | | | | | Nighttime [id number], | | | | | | + +-------+ +---------+---+ + +-------+ +---------+---+ + | Given | 08/07/20 | 2 Units | | Arm-Righ | | | 18 5:30 | | | t Upper | | | PM PST | | | | +-------+ +---------+---+ + | Given | 08/07/20 | 2 Units | | Abdomen- | | | 18 11:51 | | | RLQ | | | AM PST | | | | +-------+ +---------+---+ + +---+---+ | | | +---+---+ + +-------+ +---------+---+ + | insulin lispro (humaLOG | Given | 08/09/20 | 4 Units | | Arm-Left | | KWIKPEN) 100 units/mL injection | | 18 11:58 | | | Upper | | (pen) 0-6 Units 0-6 Units, | | AM PST | | | | | Subcutaneous, 4 TIMES DAILY WITH | | | | | | | MEALS & NIGHTLY, First dose on | | | | | | | 08/08/18 at 1200, CORRECTION | | | | | | | SCALE: Blood Glucose (BG) < | | | | | | | 150: None BG | | | | | | | 150-200: DAY: 1 units. NIGHT: 0 | | | | | | | units BG 201-250: DAY: 2 units. | | | | | | | NIGHT: 1 units BG 251-300: | | | | | | | DAY: 3 units. NIGHT: 2 units | | | | | | | BG 301-350: DAY: 4 units. NIGHT: | | | | | | | 3 units BG 351-400: DAY: 5 | | | | | | | units. NIGHT: 4 units BG > | | | | | | | 400 : DAY: 6 units. NIGHT: 5 | | | | | | | units | | | | | | | AND CALL PROVIDER Use DAY DOSE | | | | | | | for doses scheduled: AC, | | | | | | | NPO, Daytime 5680-1097 Use NIGHT | | | | | | | DOSE for doses scheduled: | | | | | | | HS, 3AM, Nighttime 2819-0998, | | | | | | + +-------+ +---------+---+ + +-------+ +---------+---+ + | Given | 08/09/20 | 4 Units | | Abdomen- | | | 18 8:04 | | | LLQ | | | AM PST | | | | +-------+ +---------+---+ + | Given | 08/09/20 | 3 Units | | Abdomen- | | | 18 1:18 | | | RLQ | | | AM PST | | | | +-------+ +---------+---+ + +---+---+ | | | +---+---+ + +-------+ +-------+---+---+ | lisinopril (PRINIVIL, ZESTRIL) | Given | 08/09/20 | 10 mg | | | | tablet 10 mg 10 mg, Oral, DAILY, | | 18 8:02 | | | | | First dose on Fri08/07/18 at | | AM PST | | | | | 0900, Hold for sbp<100, | | | | | | + +-------+ +-------+---+---+ +-------+ +-------+---+---+ | Given | 08/08/20 | 10 mg | | | | | 18 8:42 | | | | | | AM PST | | | | +-------+ +-------+---+---+ | Given | 08/07/20 | 10 mg | | | | | 18 8:31 | | | | | | AM PST | | | | +-------+ +-------+---+---+ +---+---+ | | | +---+---+ + +---------+ +-----+ +---+ | magnesium sulfate 2 g/50 mL | New Bag | 08/08/20 | 2 g | 25 mL/hr | | | IVPB 2 g 2 g, Intravenous, | | 18 1:47 | | | | | Administer over 120 Minutes, | | PM PST | | | | | ONCE, 11/17/18 at 1230, For 1 | | | | | | | dose, Maximum recommended | | | | | | | infusion rate = 1 gram/hour., | | | | | | + +---------+ +-----+ +---+ +---+---+ | | | +---+---+ + +---------+ +-----+ +---+ | magnesium sulfate 2 g/50 mL | New Bag | 08/08/20 | 2 g | 25 mL/hr | | | IVPB 2 g 2 g, Intravenous, | | 18 5:14 | | | | | Administer over 120 Minutes, | | PM PST | | | | | ONCE, 08/08/18 at 1430, For 1 | | | | | | | dose, Maximum recommended | | | | | | | infusion rate = 1 gram/hour., | | | | | | + +---------+ +-----+ +---+ +---+---+ | | | +---+---+ + +-------+ +-------+---+---+ | methadone tablet 80 mg 80 mg, | Given | 08/08/20 | 80 mg | | | | Oral, EVERY 12 HOURS (2 times per | | 18 8:42 | | | | | day), First dose (after last | | AM PST | | | | | reorder) on Fri08/07/18 at 0945 | | | | | | + +-------+ +-------+---+---+ +-------+ +-------+---+---+ | Given | 08/07/20 | 80 mg | | | | | 18 9:08 | | | | | | PM PST | | | | +-------+ +-------+---+---+ | Given | 08/07/20 | 80 mg | | | | | 18 9:56 | | | | | | AM PST | | | | +-------+ +-------+---+---+ + +---+ | | | + +---+ | naloxone (NARCAN) 0.4 mg/mL | | | injection 0.4 mg 0.4 mg, | | | Intravenous, PRN, Apnea, | | | Decreased Responsiveness, | | | Starting 08/09/18 at 0025 | | + +---+ | | | + +---+ + +-------+ +-------+---+---+ | oxyCODONE (ROXICODONE) tablet | Given | 08/07/20 | 15 mg | | | | 5-15 mg 5-15 mg, Oral, EVERY 3 | | 18 8:40 | | | | | HOURS PRN, Pain, Starting Светлана | | AM PST | | | | | 08/06/18 at 2352, If ineffective | | | | | | | or not tolerated, contact | | | | | | | prescriber, | | | | | | + +-------+ +-------+---+---+ +-------+ +-------+---+---+ | Given | 08/07/20 | 15 mg | | | | | 18 1:15 | | | | | | AM PST | | | | +-------+ +-------+---+---+ +---+---+ | | | +---+---+ + +-------+ +-------+---+---+ | pantoprazole (PROTONIX) DR | Given | 08/09/20 | 40 mg | | | | tablet 40 mg 40 mg, Oral, DAILY | | 18 7:36 | | | | | BEFORE BREAKFAST, First dose on | | AM PST | | | | | 08/07/18 at 0700, Indication: | | | | | | | GERD | | | | | | + +-------+ +-------+---+---+ +-------+ +-------+---+---+ | Given | 08/08/20 | 40 mg | | | | | 18 6:31 | | | | | | AM PST | | | | +-------+ +-------+---+---+ | Given | 08/07/20 | 40 mg | | | | | 18 7:25 | | | | | | AM PST | | | | +-------+ +-------+---+---+ +---+---+ | | | +---+---+ + +---------+ +--------+-------+---+ | sodium chloride 0.9% (NS) bolus | New Bag | 08/06/20 | 1,000 | 1000 | | | 1,000 mL 1,000 mL, Intravenous, | | 18 8:40 | mLs | mL/hr | | | Administer over 1 Hours, ONCE, | | PM PST | | | | | Светлана 08/06/18 at 2030, For 1 dose | | | | | | + +---------+ +--------+-------+---+ +---+---+ | | | +---+---+ + +---------+ +---+-------+---+ | sodium chloride 0.9% (NS) | New Bag | 08/07/20 | | 100 | | | infusion at 100 mL/hr, | | 18 2:45 | | mL/hr | | | Intravenous, CONTINUOUS, Starting | | PM PST | | | | | 08/07/18 at 0000 | | | | | | + +---------+ +---+-------+---+ +---------+ +---+-------+---+ | New Bag | 08/07/20 | | 100 | | | | 18 1:03 | | mL/hr | | | | AM PST | | | | +---------+ +---+-------+---+ +---+---+ | | | +---+---+ + +-------+ +--------+---+---+ | tamsulosin (FLOMAX) capsule 0.4 | Given | 08/09/20 | 0.4 mg | | | | mg 0.4 mg, Oral, DAILY AFTER | | 18 8:02 | | | | | BREAKFAST, First dose on Fri | | AM PST | | | | | 08/07/18 at 0900, May open | | | | | | | capsule and sprinkle over acidic | | | | | | | soft food (applesauce, yogurt) or | | | | | | | in a small quantity of acidic | | | | | | | fruit juice (orange, grape). Do | | | | | | | not crush, chew or dissolve | | | | | | | granules., | | | | | | + +-------+ +--------+---+---+ +-------+ +--------+---+---+ | Given | 08/08/20 | 0.4 mg | | | | | 18 8:43 | | | | | | AM PST | | | | +-------+ +--------+---+---+ | Given | 08/07/20 | 0.4 mg | | | | | 18 8:31 | | | | | | AM PST | | | | +-------+ +--------+---+---+ +---+---+ | | | +---+---+ + +---------+ + +-------+---+ | vancomycin 1,250 mg in sodium | New Bag | 08/07/20 | 1,250 mg | 175 | | | chloride 0.9% 250 mL IVPB 1,250 | | 18 8:33 | | mL/hr | | | mg, Intravenous, Administer over | | AM PST | | | | | 90 Minutes, EVERY 12 HOURS | | | | | | | INTERVAL, First dose on Fri | | | | | | | 08/07/18 at 0900, Keep in | | | | | | | refrigerator., Indications: | | | | | | | Osteomyelitis | | | | | | + +---------+ + +-------+---+ +---+---+ | | | +---+---+ + +---------+ + +--------+---+ | vancomycin 1,500 mg in sodium | New Bag | 08/06/20 | 1,500 mg | 176.7 | | | chloride 0.9% 250 mL IVPB 1,500 | | 18 9:22 | | mL/hr | | | mg, Intravenous, Administer over | | PM PST | | | | | 90 Minutes, ONCE, [facility] 08/06/18 at | | | | | | | 2130, For 1 dose, Keep in | | | | | | | refrigerator., Indications: | | | | | | | Osteomyelitis | | | | | | + +---------+ + +--------+---+ +---+---+ | | | +---+---+ documented in this encounter
--- OUTSIDE RECORDS SUMMARY | ~2020-06-16 | XMS | Encounter Summary ---
Demographics + + + | Address | [address] | | | [place] [address] | + + + | Home Phone | | + + + | Preferred Language | Unknown | + + + | Marital Status | | + + + | Faith Affiliation | Unknown | + + + | Race | White | + + + | Ethnic Group | Not or | + + + Author + + + | Author | [facility] | | | and [place] | + + + | Organization | [facility] | | | [...] [place], | | | | | [place] [address] | | + + + + + Care Team Providers + +------+ + | Care Cotton Sampler Name | Role | Phone | + +------+ + | Dimitri Fischer MD | PCP | | + +------+ + Reason for Visit + +--------+ + | Reason | Onset | Comments | | | Date | | + +--------+ + | Lab Results | 03/13/ | | | | 2016 | | + +--------+ + Encounter Details +--------+ + + + + | Date | Type | Department | Care Team | Description | +--------+ + + + + | 03/13/ | Telephone | [facility] | Surendra Vaughn | Lab Results | | 2016 | | NEPHROLOGY [address] | M, DO [address] | | | | | [address] | [address] [facility] | | | | | [place] | [place] [address] | | | | | [address] | [phone] | | | | | [phone] | | | +--------+ + + + [...] Telephone Encounter - Yuliana Coronado RN - 03/13/2017 4:33 PM ARMENChjaswant and his came to our office stating that he was instructed by another provider's office staff to come to see Dr. Vaughn immediately due to low Hgb and high creatinine. He was scheduled to have roberts rgery tomorrow, but it is cancelled due to these labs. Spoke to Dr. Vaughn who is not seeing patient's in our office today and he reports that maye cox said he would see the patient at his [facility] in March. We have no recent labs on this patient, most recent lab from 2014 show creatinine of 0.94. Notified patient and his that we will request labs/medical records and review them. We will call them back with an appointment for March. Labs/ office notes received. Creatinine in November 2016 was 0.9 Creatinine yesterday was 3.35 Spoke to patient's , she denies NSAID use, medication list reviewed and current. She re ports that he drinks plenty of water. Does not check BP at home, but is was 119/66 HR 100 at PCP yesterday. Scheduled to see Dr. Vaughn on 04/07. Dr. Vaughn to be notified. documented in this encounter Plan of Treatment Not on filedocumented as of this encounter Visit Diagnoses Not on filedocumented in this encounter"
--- OUTSIDE RECORDS SUMMARY | ~2020-06-16 | XMS | Encounter Summary ---
Demographics + + + | Address | [address] | | | [place] [address] | + + + | Home Phone [...] + + + | Author | [facility] | | | and [place] | + + + | Organization | [facility] | | | [...] [place], | | | | | [place] [address] | | + + + + + Care Team Providers + +------+ + | Care Method Consultant Name | Role | Phone | + +------+ + PCP | Unavailable | + +------+ + Encounter Details +--------+ + + + + | Date | Type | Department | Care Team | Description | +--------+ + + + + | 06/27/ | Hospital | [facility] | Will Capellan, | Left elbow pain | | 2015 | Encounter | [facility] | MD [address] | | | | | [address] [place] | [place], [place] | | | | | [place], [place] | [address] | | | | | [address] | | | | | | [phone] | | | +--------+ + + + [...] tablets by | 45 | 0 | 06/16/20 | | | tablet | mouth every 8 hours | tablet | | 15 | 5 | | | as needed. | | | | | + + + +---------+ + + | oxyCODONE | Take 1 tablet by | 100 | 0 | 06/16/20 | | | (ROXICODONE) 30 MG | [...] + + + | XR ELBOW LEFT 3 + VW | Routin | 06/27/2015 | Left elbow pain | Results for this | | | e | 9:03 AM | | procedure are in the | | | | PDT | | results section. | + +--------+ + + + documented in this encounter Results XR Elbow Left 3 + Vw (06/27/2015 9:03 AM PDT) + + | Specimen | + + | | + + + + + | Narrative | Performed At | + + + | EXAM: XR ELBOW LEFT 3 + VW dated 06/27/2015 8:53 AM HISTORY:pain | [facility] | | COMPARISON: April 13, 2015 from an outside institution. | [facility] | | FINDINGS:4 views of the left elbow. There is enthesopathy at the [facility] | | common extensor insertion.. There is [...] | + + + + + | [facility] | [address] | [place], [place] | [phone] | | [facility] | | [address] | | | - IMAGING | | | | + + + + + documented in this encounter Visit Diagnoses + + | Diagnosis | + + | Left elbow pain Pain in joint, upper arm | + + documented in this encounter"
--- OUTSIDE RECORDS SUMMARY | ~2020-06-16 | XMS | Encounter Summary ---
Demographics + + + | Address | [address] | | | [place] [address] | + + + | Home Phone | | + + + | Preferred Language | Unknown | + + + | Marital Status | | + + + | Caodaism Affiliation | Unknown | + + + | Race | White | + + + | Ethnic Group | Not or | + + + Author + + + | Author | [facility] | | | and [place] | + + + | Organization | [facility] | | | and [...] [place], | | | | | [place] [address] | | + + + + + Care Team Providers + +------+ + | Care Television Director Name | Role | Phone | + +------+ + | Dimitri Fischer MD | PCP | | + +------+ + Encounter Details +--------+ + + + + | Date | Type | Department | Care Team | Description | +--------+ + + + + | 07/21/ | Hospital | [facility] | Amadeo Saab | Right knee pain, | | 2017 | Encounter | [facility] | [address] | unspecified | | | | [address] [place] | [place] | chronicity | | | | [place] [address] | [place] [address] | | | | | [address] | [phone] | | | | | [phone] | | | +--------+ + + + [...] mg by mouth | | 0 | / | | | (FLOMAX) 0.4 mg CAPS [...] + +---------+ + + | B-D 3CC MARCI-ANDREAS | use to INJECT | | 0 | 07/09/20 | | | SYR 92MM4-2/2 22G X | TESTOSTERONE TWICE A | [...] RIGHT 1 - 2 | Routin | 07/21/2017 | Right knee pain, | Results for this | | VW | e | 1:42 PM | unspecified | procedure are in the | | | | PDT | chronicity | results section. | + +--------+ + + + documented in this encounter Results XR Knee Right 1 - 2 Vw (07/21/2017 1:42 PM PDT) + + | Specimen | + + | | + + + + + | Narrative | Performed At | + + + | TWO VIEWS RIGHT KNEE 07/21/2017 1:37 PM CLINICAL HISTORY: RIGHT | [facility] | | KNEE PAIN COMPARISON: RADIOGRAPHS MAY 04 FINDINGS: The | | | bones are well-mineralized and well aligned. No fracture or | | | subluxation is evident. Mild femorotibial joint space narrowing is | | | present bilaterally. Mild, smooth thickening of the cortex | | | involving the medial aspects of the proximal tibial diaphyses is | | | symmetric and may relate to sites of myotendinous attachment. Soft | | | tissues are otherwise unremarkable. IMPRESSION - 1. MILD | | | FEMOROTIBIAL JOINT COMPARTMENT NARROWING. Dictated and Signed by: | | | Sabino Coronado MD Electronically signed: 07/21/2017 2:49 PM | | + + + + + | Procedure Note | + + | Kiko, Rad Results In - 07/21/2017 2:52 PM PDT TWO VIEWS RIGHT KNEE 07/21/2017 1:37 PM | | | | CLINICAL HISTORY: RIGHT KNEE PAIN | | | | COMPARISON: RADIOGRAPHS MAY 04 | | | | FINDINGS: The bones are well-mineralized and well aligned. No fracture or | | subluxation is evident. Mild femorotibial joint space narrowing is present | | bilaterally. Mild, smooth thickening of the cortex involving the medial aspects | | of the proximal tibial diaphyses is symmetric and may relate to sites of | | myotendinous attachment. Soft tissues are otherwise unremarkable. | | | | IMPRESSION - | | 1. MILD FEMOROTIBIAL JOINT COMPARTMENT NARROWING. | | | | Dictated and Signed by: Sabino Coronado MD | | Electronically signed: 07/21/2017 2:49 PM | + + + +---------+ + [...]
--- OUTSIDE RECORDS SUMMARY | ~2020-06-16 | XMS | Encounter Summary ---
Demographics + + + | Address | [address] | | | [place] [address] | + + + | Home Phone [...] [place], | | | | | [place] [address] | | + + + + + Care Team Providers + +------+ + | Care Owner Consulting Engineer Name | Role | Phone | + +------+ + PCP | Unavailable | + +------+ + Encounter Details +--------+ + + + + | Date | Type | Department | Care Team | Description | +--------+ + + + + | 05/04/ | Hospital | [facility] | Conversion | Pain | | 2012 | Encounter | CONVERSION [address] | Transaction, | | | | | [address] | Provider Unknown | | | | | [place] | [phone] | | | | | [phone] | | | | | | [phone] | | | +--------+ + + + [...] + +--------+ + + + | MRI CERVICAL SPINE | Routin | 04/10/2012 | | Results for this | | WO CONTRAST | e | 11:46 AM | | procedure are in the | | | | PDT | | results section. | + +--------+ + + + documented in this encounter Results MRI Cervical Spine wo Contrast (04/10/2012 11:46 AM PDT) + + | Specimen | [...]
--- OUTSIDE RECORDS SUMMARY | ~2020-06-16 | XMS | Encounter Summary ---
Demographics + + + | Address | [address] | | | [place] [address] | + + + | Home Phone [...] [place], | | | | | [place] [address] | | + + + + + Care Team Providers + +------+ + | Care Elevator Installer Apprentice Name | Role | Phone | + +------+ + PCP | Unavailable | + +------+ + Reason for Visit + +--------+ + | Reason | Onset | Comments | | | Date | | + +--------+ + | Knee Pain | 09/14/ | | | | 2013 | | + +--------+ + Encounter Details +--------+ + + + + | Date | Type | Department | Care Team | Description | +--------+ + + + + | 09/14/ | Telephone | [facility] | Marty Wood | Knee Pain | | 2013 | | [facility] | MD Gosia [address] [place] [address] | | | | | [address] | [place] MD | | | | | [place] | [address] | | | | | [address] | | | | | | [phone] | | | +--------+ + + + [...] this encounter Miscellaneous Notes Telephone Encounter - Janay Zhu LPN - 09/19/2014 2:16 PM PSTCalled pt, advised ord er sent and authed at [place], he will call their office to sched elephone Encounter - Flor Barakat - 7:04 AM PSTPatient left voicemail on FP voicemail. He stated that he got a cortisone injection in his right knee a few weeks ago, which lasted for a week or two but he stepped wrong and now is having increase in pain. He stated that he would like to do some physical therapy. He stated he would like to know who to go to, he thinks Dr. Wood mentioned somebody in [place], but hasn't received a follow-u p call from anybody. He would like a call back at [phone] or at [phone]. documented in this encounter Plan of Treatment Not on filedocumented as of this encounter Visit Diagnoses Not on filedocumented in this encounter"
--- OUTSIDE RECORDS SUMMARY | ~2020-06-16 | XMS | Encounter Summary ---
Demographics + + + | Address | [address] | | | [place] [address] | + + + | Home Phone [...] [place], | | | | | [place] [address] | | + + + + + Care Team Providers + +------+ + | Care Revenue Collector Name | Role | Phone | + +------+ + PCP | Unavailable | + +------+ + Encounter Details +--------+ + + + + | Date | Type | Department | Care Team | Description | +--------+ + + + + | 08/22/ | Hospital | [facility] | WoodMarty mcdonald | Right knee pain | | 2013 | Encounter | [facility] | MD Gosia [address] | | | | | [address] [place] | [place], [place] | | | | | [place], [place] | [address] | | | | | [address] | | | | | | [phone] | | | +--------+ + + + [...] at Time of Discharge + + + +---------+--------+ + | Medication | Sig | Dispensed | Refills | Start | End Date | | | | | | Date | | + + + +---------+--------+ + | omeprazole | Take 20 mg by mouth | | 0 | | | | (PRILOSEC) 20 mg | every morning | | | | | | capsule | (before breakfast). | | | | | + + + +---------+--------+ + | albuterol | Inhale 2 puffs into | | 0 | | | | (VENTOLIN HFA) 90 | the lungs every 6 | | | | 5 | | mcg/puff inhaler | hours as needed. | | | | | + + + +---------+--------+ + | Cholecalciferol | Take by mouth. | | 0 | | | | (VITAMIN D PO) | | | | | 5 | + + + +---------+--------+ + | CYCLOBENZAPRINE | Take by mouth. | | 0 | | | | HCL PO | | | | | 5 | + + + +---------+--------+ + | FLUoxetine | Take 20 mg by mouth | | 0 | | | | (PROZAC) 20 mg | 3 times daily. | | | | 5 | | capsule | | | | | | + + + +---------+--------+ + | fluticasone | Inhale 1 puff into | | 0 | | | | (FLOVENT HFA) 110 | the lungs 2 times | | | | 5 | | mcg/puff inhaler | daily. | | | | | + + + +---------+--------+ + | gabapentin | Take 300 mg by mouth | | 0 | | | | (NEURONTIN) 300 mg | 3 times daily. | | | | 5 | | capsule | | | | | | + + + +---------+--------+ + | insulin glargine | Inject 80 Units | | 0 | | | | (LANTUS SOLOSTAR) | under the skin | | | | 5 | | 100 units/mL | nightly. | | | | | | injection pen | | | | | | + + + +---------+--------+ + | lisinopril | Take 5 mg by mouth | | 0 | | | | (PRINIVIL, ZESTRIL) | Daily. | | | | 7 | | 5 mg tablet | | | | | | + + + +---------+--------+ + | metformin | Take 1,000 mg by | | 0 | | | | (GLUCOPHAGE) 1000 MG | mouth 2 times daily | | | | 9 | | tablet | (with breakfast & | | | | | | | dinner). | | | | | + + + +---------+--------+ + | methadone 10 mg | Take 10 mg by mouth | | 0 | | | | tablet | every 8 hours as | | | | 5 | | | needed. | | | | | + + + +---------+--------+ + | oxyCODONE | Take 30 mg by mouth | | 0 | | | | (ROXICODONE) 30 MG | Daily. | | | | 5 | | immediate release | | | | | | | tablet | | | | | | + + + +---------+--------+ + | pilocarpine | Take 5 mg by mouth 3 | | 0 | | | | (SALAGEN) 5 mg | times daily. | | | | 5 | | tablet | | | | | | + + + +---------+--------+ + | simvastatin | Take 20 mg by mouth | | 0 | | | | (ZOCOR) 40 mg tablet | nightly. | | | | 8 | + + + +---------+--------+ + | testosterone | Inject into the [...] | | | | + + + +---------+--------+ + documented as of this encounter Plan of Treatment Not on filedocumented as of this encounter Procedures + +--------+ + + + | Procedure Name | Priori | Date/Time | Associated Diagnosis | Comments | | | ty | | | | + +--------+ + + + | XR KNEE RIGHT 4 + VW | Routin | 08/22/2014 | Right knee pain | Results for this | | | e | 11:13 AM | | procedure are in the | | | | PST | | results section. | + +--------+ + + + documented in this encounter Results XR Knee Right 4 + Vw (08/22/2014 11:13 AM PST) + + | Specimen | [...] + | MISCELLANEOUS LAB | | | [phone] | + +---------+ + + | MISCELANIOUS LAB | | | [phone] | + +---------+ + + documented in this encounter Visit Diagnoses + + | Diagnosis | + + | Right knee pain Pain in joint, lower leg | + + documented in this encounter"
--- OUTSIDE RECORDS SUMMARY | ~2020-06-16 | XMS | Encounter Summary ---
Demographics + + + | Address | [address] | | | [place] [address] | + + + | Home Phone | | + + + | Preferred Language | Unknown | + + + | Marital Status | | + + + | Jainism Affiliation | Unknown | + + + | Race | White | + + + | Ethnic Group | Not or | + + + Author + + + | Author | [facility] | | | and [place] | + + + | Organization | [facility] | [...] [place], | | | | | [place] [address] | | + + + + + Care Team Providers + +------+ + | Care Water Resource Engineering Specialist Name | Role | Phone | + +------+ + PCP | Unavailable | + +------+ + Reason for Visit +--------+--------+ + | Reason | Onset | Comments | | | Date | | +--------+--------+ + | Other | 07/25/ | | | | 2014 | | +--------+--------+ + Encounter Details +--------+ + + + + | Date | Type | Department | Care Team | Description | +--------+ + + + + | 07/25/ | Telephone | [facility] | Will Capellan, | Other | | 2015 | | [facility] | [address] | | | | | [address] | [place] | | | | | [place] | [address] | | | | | [address] | | | | | | [phone] | | | +--------+ + + + [...] this encounter Miscellaneous Notes Telephone Encounter - Henrietta Robles - 07/25/2015 1:16 PM PSTPatient's significant other, Tasha calling and states that she is aware that pt was discharged as a pt of Dr. Marilia sena ut she would like to enter a request. She states that pt is to get an MRI but he can not sit still so they advised him to contact Dr. Capellan because patient will need to be put on anes thesia during MRI. She can be reached at [phone] signed by Henrietta Robles at 07/25/2015 1:39 PM PSTdocumented in this encounter Plan of Treatment Not on filedocumented as of this encounter Visit Diagnoses Not on filedocumented in this encounter"
--- OUTSIDE RECORDS SUMMARY | ~2020-06-16 | XMS | Encounter Summary ---
Demographics + + + | Address | [address] [facility] [address] [facility] | | | [place] [address] | + + + | Home Phone [...] [place], | | | | | [place] [address] | | + + + + + Care Team Providers + +------+ + | Care Roll Repairer Name | Role | Phone | [...] Description | +--------+---------+ + + + | 10/27/ | Office | [facility] | Marty Wood | Other tear of medial | | 2018 | Visit | ORTHOPEDIC SURGERY | MD Gosia [address] | meniscus of right | | | | [address] | [place] | knee as current | | | | [place] | [address] | injury, initial | | | | [address] | | encounter (Primary | | | | [phone] | | Dx); Patella, | | | | | | chondromalacia, | | | | | | right | +--------+---------+ + + + Social History [...] | 97.2 kg (214 lb 4.6 | 10/27/2017 10:27 AM | | | | oz) | PST | | + + + + + | Height | 182.9 cm (6') | 10/27/2017 10:27 AM | | | | | PST | | + + + + + | Body Mass Index | 29.06 | 10/27/2017 10:27 AM | | | | | PST | | + + + + + documented in this encounter Progress Notes Marty Wood MD - 10/27/2017 10:30 AM Jamilahristop returns for follow-up of his right knee injury. He did undergo a right knee arthroscopy that I performed on 12/05/14. He arthroscopy included a partial medial meniscectomy as well as a medial femoral condyle jori rized chondroplasty. He initially did well but a few weeks after his surgery unfortunately fell when he slipped on an oily surface at [employer] and landed directly onto his freshly o perated right knee. He has had right knee pain ever since and has now recently undergone a follow-up MRI scan for a evaluation of his ongoing right knee symptoms and pain. He has had several left elbow surgeries over the past several years which have done reasonably well. Exam: Examination of the right knee reveals that there is a visible and palpable effusion p resent. The knee is tender particularly over the medial joint line and surrounding the lr lla. There is obvious audible and palpable crepitus associated with knee motion eminating f rom the patella femoral compartment. Imaging: MRI scan obtained on 08/08/17 of the right knee is reviewed. This shows additiona l tearing of the medial meniscus superimposed on prior surgical truncation as well as patell ar chondromalacia. Advice: We have discussed our findings with Jaredgabrielmilagro. Although he does have comorbiditi es including diabetes and nicotine habituation, it is reasonable to proceed with right knee arthroscopy. It has now been almost 3 years since his prior arthroscopy and subsequent inju ry. He has remained symptomatic and does have MRI scan evidence of pathology that can be ad dressed arthroscopically and he therefore will be scheduled for a right knee arthroscopy fol lowing financial clearance at a time that is convenient for his schedule.Electronically sign ed by Marty Wood MD at 10/27/2017 11:34 AM PSTdocumented in this encounter Plan of Treatment Not on filedocumented as of this encounter Visit Diagnoses + + | Diagnosis | + + | Other tear of medial meniscus of right knee as current injury, initial encounter - | | Primary | + + | Patella, chondromalacia, right | + + documented in this encounter"
--- OUTSIDE RECORDS SUMMARY | ~2020-06-16 | XMS | Encounter Summary ---
Demographics + + + | Address | [address] | | | [place] [address] | + + + | Home Phone | | + + + | Preferred Language | Unknown | + + + | Marital Status | | + + + | Yazdanism Affiliation | Unknown | + + + | Race | White | + + + | Ethnic Group | Not or | + + + Author + + + | Author | [facility] | | | and [place] | + + + | Organization | [facility] | | | [...] [place], | | | | | [place] [address] | | + + + + + Care Team Providers + +------+ + | Care Charge Poster Name | Role | Phone | + +------+ + PCP | Unavailable | + +------+ + Reason for Visit + + + | Reason | Comments | + + + | Medication Refill | | + + + Encounter Details +--------+--------+ + + + | Date | Type | Department | Care Team | Description | +--------+--------+ + + + | 09/20/ | Refill | [facility] | Will Capellan, | Medication Refill | | 2014 | | [facility] [place] | [address] | | | | | [address] | [place] | | | | | [place] | [address] | | | | | [address] | | | | | | [phone] | | | +--------+--------+ + + + [...]
--- OUTSIDE RECORDS SUMMARY | ~2020-06-16 | XMS | Encounter Summary ---
Demographics + + + | Address | [address] | | | [place] [address] | + + + | Home Phone [...] [place], | | | | | [place] [address] | | + + + + + Care Team Providers + +------+ + | Care Math And Science Division Chair Name | Role | Phone | + +------+ + | Lakeisha Sanabria MD | PCP | | + +------+ + Reason for Visit +--------+ + | Reason | Comments | +--------+ + | Rash | | +--------+ + Encounter Details +--------+ + + + + | Date | Type | Department | Care Team | Description | +--------+ + + + + | 08/01/ | Emergency | [facility] | Jose Weston | Allergic reaction, | | 2019 | | [facility] | MD Stan [address] | initial encounter | | | | CENTER [address] | [facility] | (Primary Dx) | | | | [place] | [place] [address] | | | | | [address] | [phone] | | | | | [phone] | | | +--------+ + + + [...] + + + | Blood Pressure | 122/64 | 08/01/2019 7:16 PM | | | | | PST | | + + + + + | Pulse | 114 | 08/01/2019 7:16 PM | | | | | PST | | + + + + + | Temperature | 37.2 C (98.9 F) | 08/01/2019 7:16 PM | | | | | PST | | + + + + + | Respiratory Rate | 18 | 08/01/2019 7:16 PM | | | | | PST | | + + + + + | Oxygen Saturation | 95% | 08/01/2019 7:16 PM | | | | | PST | | + + + + + | Inhaled Oxygen | - | - | | | Concentration | | | | + + + + + | Weight | 109 kg (240 lb 4.8 | 08/01/2019 7:16 PM | | | | oz) | PST | | + + + + + | Height | 182.9 cm (6') | 08/01/2019 7:16 PM | | | | | PST | | + + + + + | Body Mass Index | 32.59 | 08/01/2019 7:16 PM | | | [...] + + + +---------+ + + | diphenhydrAMINE | Take 1 tablet by | 9 | 0 | 08/01/20 | | | (BENADRYL) 25 mg | mouth every 8 hours | tablet | | 19 | 9 | | tablet | as needed for | | | | | | | Itching for up to 3 | | | | | | | days. | | | | | + + + +---------+ + + | doxycycline | Take 1 capsule by | 20 | 0 | 12/08/19 | | | (MONODOX) 100 mg | mouth 2 times daily. | capsule | | 19 | 0 | | capsule | | | | | | + + + +---------+ + + | famotidine | Take 1 tablet by | 10 | 0 | 08/01/20 | | | (PEPCID) 20 mg | mouth 2 times daily | tablet | | 19 | 9 | | tablet | for 5 days. | | | | | + + + +---------+ + + | JARDIANCE 10 MG | | | 0 | 01/21/20 | | | tablet | | | | 19 | 0 | + + + +---------+ + + [...] + + + +---------+ + + | predniSONE | Take 2 tablets by | 6 | 0 | 08/01/20 | | | (DELTASONE) 20 mg | mouth Daily for 3 | tablet | | 19 | 9 | | tablet | days. | | | | | [...] documented as of this encounter ED Notes Jose Weston MD - 08/01/2019 7:23 PM PSTFormatting of this note might be diff erent from the original. [facility] Ceciloi Arias Emergency Department Encounter Note [address] [place] [address] PCP:Lakeisha Sanabria MD [phone] CHIEF COMPLAINT: Chief Complaint Patient presents with Rash ED Room: ED17 [facility] Cecilio Arias is a 49 y.o. male who presents to the Emergency Department Pt presents to ER with CO rash breaking out over entire body. Pt states he had just had a s andwich prior to this happening that he had eaten before with no problems. Pt denies drug us e, Pt appears to be very anxious and unsettled. The patient presents complaining of rash. It is present on their chest. It was of gradual onset and has been present for one hours. Exposures that could have caused this rash are eating avocado. There is not associated pain. They have had this rash before. Exacerbating factors include itching. Alleviating factors include itching. Language line data collection associate made available and used to collect historical details as needed. PAST MEDICAL & SURGICAL HISTORY Patient Active Problem List Diagnosis Date Noted Hypomagnesemia 11/27/2018 Priority: High GERD (gastroesophageal reflux disease) 11/07/2018 Priority: Medium Elevated hemoglobin A1c 11/07/2018 Priority: Medium Note Last Updated: 11/07/2018 12.9 - 07/2018 12.3 - 11/2016 Smoker - Daily 11/07/2018 Priority: Medium Marijuana use 11/07/2018 Priority: Low Chronic osteomyelitis of toe of right foot ([facility]) 11/26/2018 Chronic renal insufficiency, stage 2 (mild) 11/07/2018 Note Last Updated: 11/07/201820163093-8555: GFR's 30's-60's. CRI with occasional PAULY Cellulitis of left leg 11/05/2018 Opioid overdose, accidental or unintentional, initial encounter ([facility]) 09/04/2018 CAYLA (acute kidney injury) ([facility]) 09/04/2018 Displacement of peripherally inserted central venous catheter (PICC) ([facility]) 09/04/2018 PICC (peripherally inserted central catheter) in place 08/08/2018 Note Last Updated: 08/08/2018 picc care and education Severe sepsis ([facility]) 08/07/2018 Note Last Updated: 11/07/2018 Non-controlled diabetes, osteomyelitis, acute renal injury Left arm pain 03/12/2016 Decreased activities of daily living (ADL) 03/12/2016 Obesity (BMI 30.0-34.9) 11/15/2015 Lateral epicondylitis of left elbow 11/15/2015 Lateral epicondylitis (tennis elbow), left 11/15/2015 Note Last Updated: 01/09/2016 Problem list remote recruiter utility Primary osteoarthritis of left elbow 11/15/2015 Immune deficiency disorder (HCC) Note Last Updated: 11/07/2018 Lab results placed in chart regarding [id number] Phenotype. CYP2D6, a member of the cytochrome P450 mixed-function oxidase system, is one of the most i mportant enzymes involved in the metabolism of xenobiotics in the body. In particular, CYP2D 6 is responsible for the metabolism and elimination of approximately 25% of clinically used drugs, via the addition or removal of certain functional groups specifically, hydroxylat ion, demethylation, and dealkylation. Other drugs, known as prodrugs, are activated by the action of CYP2D6. This enzyme also metabolizes several endogenous substances, such as hydro xytryptamines, neurosteroids, and both m-tyramine and p-tyramine which CYP2D6 metabolizes in to dopamine in the brain and liver. Seizure (HCC) Opiate dependence (HCC) 06/20/2015 Knee pain, right 02/03/2015 Low back pain 01/17/2012 Hyperlipidemia 10/31/2011 Mixed, or nondependent drug abuse 10/28/2011 Note Last Updated: 08/05/2016 Overview: THC use 01/16/12 pt will not use.. Insulin dependent diabetes mellitus (HCC) 10/28/2011 Other, mixed, or unspecified nondependent drug abuse, unspecified 10/28/2011 Note Last Updated: 12/07/2018 Overview: THC use 01/16/12 pt will not use.. Last Assessment & Plan: Reviewed with patient taht I would not prescribe opiate. Referral made to pain clinic. Backache 10/25/2011 Note Last Updated: 07/21/2017 Overview: wants to see pain specialist. broken contract at previous clinic Overview: wants to see pain specialist. broken contract at previous clinic Dx name changed by system update 06/13/2017 Chronic airway obstruction, not elsewhere classified 10/25/2011 Obesity 10/25/2011 Note Last Updated: 07/21/2017 Overview: Dx Name changed by system update on 07/04/2017 Past Surgical History: Procedure Laterality Date CARPAL TUNNEL RELEASE Left 05/14/2017 Procedure: Left Elbow Joint Exploration and Bilateral Shoulder Injection; Surgeon: Nirmal Wood MD; Location: [facility] MAIN OR CARPAL TUNNEL RELEASE 05/14/2017 ELBOW SURGERY Left 11/15/2015 Procedure: Left Lateral Epicondylar Release & Injection of Left Elbow Joint ; Surgeon: Janet Wood MD; Location: [facility] MAIN OR INCISION AND DRAINAGE Right 11/07/2018 Procedure: right great toe superfical bone biopsy; Surgeon: Jose Nash MD; Location: [facility] MAIN OR KNEE ARTHROSCOPY Right 12/05/2014 Procedure: Right Knee Arthroscopy with Partial Medial Menisectomy and Medial- Femoral Tay droplasty; Surgeon: Marty Wood MD; Location: [facility] MAIN OR KNEE ARTHROSCOPY Right 02/11/2018 Procedure: Right Knee Arthroscopy & bilateral Elbow Injections, Lateral Tibial Chondroplas ty, Medial Femoral Chondroplasty, Partial medial meniscectomy; Surgeon: Marty Wood MD; Location: [facility] MAIN OR KNEE ARTHROSCOPY Right 12/05/2014 MANDIBLE SURGERY MANDIBLE SURGERY OTHER SURGICAL HISTORY Left 11/15/2015 OTHER SURGICAL HISTORY Right 11/07/2018 INCISION AND DRAINAGE FOOT - R great toe OTHER SURGICAL HISTORY 12/05/2014 spinal cord injury 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 buprenorphine-naloxone (SUBOXONE) 8-2 mg SL film ALTERNATING 2 FILMS with 2 and 1/2 BEREKET MS under the tongue once daily for 5 days cyclobenzaprine (FLEXERIL) 10 mg tablet 1 tablet orally 3 times per day dapagliflozin (FARXIGA) 10 mg tablet Take 1 tablet by mouth every morning. doxycycline (MONODOX) 100 mg capsule Take 1 capsule by mouth 2 times daily. ergocalciferol (VITAMIN D-2) 50,000 units capsule Take 50,000 Units by mouth Once a wee k. On gabapentin (NEURONTIN) 600 MG tablet take 1 tablet by mouth three times a day JARDIANCE 10 MG tablet lidocaine (LIDODERM) 5% patch Place 2 patches onto the skin Daily. Apply for 12 hours, then remove for 12 hours. lisinopril (PRINIVIL, ZESTRIL) 10 mg tablet Take 10 mg by mouth Daily. metFORMIN (GLUCOPHAGE) 500 mg tablet Take 2 tablets by mouth 2 times daily. omeprazole (PRILOSEC) 20 mg capsule Take 20 mg by mouth every morning (before breakfast ). ondansetron (ZOFRAN ODT) 4 mg disintegrating tablet pregabalin (LYRICA) 100 mg capsule Take 1 capsule by mouth 2 times daily. SENNA LAX 8.6 MG tablet take 4 tablets by mouth UP TO 2 TIMES A DAY NEEDED FOR CONST IPATION tamsulosin (FLOMAX) 0.4 mg CAPS Take 0.4 mg by mouth daily (after breakfast). trolamine salicylate (ASPERCREME) 10% cream leg VENTOLIN HFA 108 (90 Base) MCG/ACT inhaler ALLERGIES Allergies Allergen Reactions Azithromycin Anaphylaxis Codeine Hives Hydrocodone Hives Hydroxyzine Other (See Comments) "sleepwalks, doesn't react well" Sulfa Antibiotics Hives FAMILY AND SOCIAL HISTORY History reviewed. No pertinent family history. Social History Socioeconomic History Marital status: Single [...] Comment: Drug use: Yes REVIEW OF SYSTEMS As in history of present illness. A 10 system review was otherwise negative. PHYSICAL EXAM VITAL SIGNS: (first vital signs):Temp: 37.2 C (98.9 F) Pulse: 114 Resp: 18 SpO2: 95 % B P: 122/64 Body mass index is 32.59 kg/m. Constitutional: Moderately uncomfortable male patient. HEENT: Atraumatic, PERRL, Oropharynx benign. [...] tested Psychiatric: Normal mood, affect and judgement. The rash is and present on the trunk. The symmetry is asymmetric. The lesions are uniform. The lesions are blanchable and are not tender to palpation. The lesions do appear urticarial. There is not evidence of cellulitis, abscess, or infection. There is no evidence of of rash on the palms or soles no consistent with CARS (coxsackie, adenovirus, rickettsial, syphilis) rash at this time. The lesions are not vesicular. They are not at different stages of healing. The lesions are not umbilicated. There is no evidence of desquamation. Nikolosky's sign is negative at this time. There is no involvement of the eyes or mucous membranes. There is no evidence of parasitic infection or bite gatica. There are no targetoid lesions. There is no evidence of erythema multiforme or a TENS spectrum rash. There is no evidence of petechia or purpura. EKG 12-lead EKG shows LABS Results for orders placed or performed during the hospital encounter of 08/01/19 POC Glucose Result Value Ref Range Glucose, POC 108 70 - 109 mg/dL IMAGING STUDIES (X-Rays interpreted by ED Physician) ED COURSE & MEDICAL DECISION MAKING Pertinent Labs & Imaging studies were reviewed along with EMS notes and [facility] record s if applicable. (See chart for details) Medications and Allergy list reviewed. Nurses note and old records were reviewed The patient was seen and examined, The patient was placed on the monitor and monitored. There is no clinical evidence of Allergic reaction Atopic dermatitis/eczema Fungal infection Parasitic infection TENS spectrum rash Toxic shock syndrome Herpes simplex virus/varicella zoster CARS (coxsackie, adenovirus, rickettsial, syphilis) group rash Coagulopathy due to other illness Treated with solumedrol, atarax, famotidine. Repeat eval shows resolution of symptoms. The patient remained hemodynamically stable within normal [...] Signs: Temp: 37.2 C (98.9 F) Pulse: 114 Resp: 18 SpO2: 95 % BP: 122/6 4 FINAL IMPRESSION ICD-10-CM ICD-9-CM 1. Allergic reaction, initial encounter T78.40XA 995.3 Follow-up Information Lakeisha Sanabria MD. Specialty: Family Medicine Contact information: [address] [place] [address] [facility]. Specialty: Emergency Medicine Why: If symptoms worsen Contact information: [address] [place] [phone] Discharge Medication List as of 08/01/2019 7:35 PM START taking these medications Details calamine lotion Apply to affected area three times daily.Disp-118 mL, R-1, Print diphenhydrAMINE (BENADRYL) 25 mg tablet Take 1 tablet by mouth every 8 hours as needed for Itching for up to 3 days.Disp-9 tablet, R-0, Print EPINEPHrine auto-injector 0.3 mg/0.3 mL injection Inject 0.3 mLs into the muscle as needed for Anaphylaxis.Disp-1 each, R-0, Print famotidine (PEPCID) 20 mg tablet Take 1 tablet by mouth 2 times daily for 5 days.Disp-10 ta blet, R-0, Print predniSONE (DELTASONE) 20 mg tablet Take 2 tablets by mouth Daily for 3 days.Disp-6 tablet, R-0, Print Administrations This Visit calamine lotion Admin Date 08/01/2019 Action Given Dose Route Topical Administered By Vi Paige RN famotidine (PEPCID) tablet 20 mg Admin Date 08/01/2019 Action Given Dose 20 mg Route Oral Administered By Vi Paige RN methylPREDNISolone sodium succinate (solu-MEDROL) 62.5 mg/mL injection 62.5 mg Admin Date 08/01/2019 Action Given Dose 62.5 mg Route Intravenous Administered By Vi Paige RN Portions of this chart were created with [employer] voice recognition software. Inadvertent so und alike substitutions may be present and are unintentional Jose Weston MD 08/02/19 [id number] Avel Tobar RN - 08/01/2019 7:19 PM PSTPt presents to ER with CO rash breaking out over enti re body. Pt states he had just had a sandwich prior to this happening that he had eaten befo re with no problems. Pt denies drug use, Pt appears to be very anxious and unsettled. Electr onically signed by Avel Cooper RN at 08/01/2019 7:20 PM PSTdocumented in this enc ounter Plan of Treatment + +------+--------+ + + | Name | Type | Priori | Associated Diagnoses | Date/Time | | | | ty | | | + +------+--------+ + + | ED INFORMATION | SHITAL | Routin | | 08/01/2019 7:13 PM | | EXCHANGE | | e | | PST | + +------+--------+ + + documented as of this encounter Procedures + +--------+ + + + | Procedure Name | Priori | Date/Time | Associated Diagnosis | Comments | | | ty | | | | + +--------+ + + + | POC GLUCOSE | Routin | 08/01/2019 | | Results for this | | | e | 7:35 PM | | procedure are in the | | | | PST | | results section. | + +--------+ + + + | ED INFORMATION | Routin | 08/01/2019 | | | | EXCHANGE | e | 7:13 PM | | | | | | PST | | | + +--------+ + + + +---+--------+ | | | | | Proced | | | ure | | | Note - | | | Kiko, | | | Lab In | | | | | | Hlseve | | | n - | | | 08/01/ | | | 2018 | | | 7:14 | | | PM PST | | [...] | | | ON?11/ | | | | | | 9 | | | 19:12? | | | AVLONI | | | TIS, | | | DENIS | | | OPHER | | | S?MRN: | | | | | | [id number] | | | [id number] | | | riteri | | | [...] | | A 0 | | | 2019-0 | | | 4-19 | | | BUPREN | | | ORP-NA | | | LOX | | | 8-2 MG | | | SL | | | FILM | | | 12 | | | ADELINE | | | GRAVES | | | 0 | | | 2019-0 | | | 4-17 | | | BUPREN | | | ORP-NA | | | LOX | | | 8-2 MG | | | SL | | | FILM 5 | | | ADELINE | | | GRAVES | | | 0 | | | 2019-0 | | | 4-15 | | | LYRICA | | | 100 | | | MG | | | CAPSUL | | | E 60 | | | LAKEISHA | | | SANABRIA | | | 0 | | | 2019-0 | | | 4-12 | | | BUPREN | | | ORP-NA | | | LOX | | | 8-2 MG | | | SL | | | FILM | | | 10 | | | ADELINE | | | GRAVES | | | 0 | | | 2019-0 | | | 4-09 | | | BUPREN | | | ORP-NA | | | LOX | | | 8-2 MG | | | SL | | | FILM 3 | | | ADELINE | | | GRAVES | | | 0 | | | 2019-0 | | | 4-03 | | | BUPREN | | | ORP-NA | | | LOX | | | 8-2 MG | | | SL | | | FILM | | | 11 | | | ADELINE | | | GRAVES | | | 0 | | | Showin | | | g 20 | | | of the | | | 23 | | | most-r | | | ecent | | | prescr | | | iption | | | s Rx | | | Summar | | | yMetri | | | c | | | Count | | | CS | | | II-V | | | Rx 15 | | | CS-II | | | Rx 3 | | | Quanti | | | ty | | | Dispen | | | sed | | | 799 | | | Unique | | | | | | Prescr | | | ibers | | | 5 | | | Unique | | | | | | Pharma | | | cies 2 | | | | | | Benzos | | | 0 | | | Opioid | | | s 13 | | | Long | | | [...] | | 8 0 | | | Kadlec | | | | | | [facility] | | | anding | | | ED 1 | | | [facility] | | | [place] | | | y | | | [...] | | out | | | of 14 | | | in the | | [...] | | | Rash | | | Aug | | | [...] | | | St. | | | [place] | | | y H. | | [...] | | | St. | | | [place] | | | y H. | | [...] Status | | | | | | Unsp | | | infect | | | ion | | | due to | | | | | | centra | | | l | | | venous | | | | | | cathet | | | er, | | | init | | | encntr | | | | | | Poison | | | ing by | | | unsp | | | narcot | | | ics, | | | accide | | | ntal, | | | init | | | | | | Hypote | | | nsion, | | | | | | unspec | | | ified | | | | | | Patien | | | t's | | | noncom | | | plianc | | | e w | | | oth | | | medica | | | [...] ified | | | | | | Recent [...] | | | al | | | Unsp | | | infect | | | ion | | | due to | | | | | | centra | | | l | | | venous | | | | | | cathet | | | er, | | | init | | | encntr | | | | | | Mech | | | compl | | | of | | | cardia | | | c and | | | vascul | | | ar | | | device | | | s and | | | implnt | | | , init | | | | | | Acute [...] | | plianc | | | e w | | | oth | | | medica | | | [...] | | | sm | | | Sepsis | | | , u | | | 1 | | | [...] | | ment | | | of VAD | | | Care | | | | | | TeamPr | | | [...] | | | (509) | | | [phone] | | | 61 | | | Curren | | | [...] | | | //secu | | | re.col | | | lectiv | | | emedic | | | al.com | | | /notif | | | [id number] | | | [id number] | | | [id number] | | | [id number] | | | [id number] | | | [id number] | | | ca | | | PLEASE | | | [...] documented in this encounter Results POC Glucose (08/01/2019 7:35 PM PST) + +-------+ + + + | Component | Value | Ref Range | Performed | Pathologist | | | | | At | Signature | + +-------+ + + + | Glucose, | 108 | 70 - 109 mg/dL | [facility] + | [facility] | [address] | [place] | [phone] | | [facility] | | [address] | | | - LABORATORY | | | | + + + + + documented in this encounter Visit Diagnoses + + | Diagnosis | + + | Allergic reaction, initial encounter - Primary | + + documented in this encounter Administered Medications + +--------+ +------+------+------+ | Medication Order | MAR | Action | Dose | Rate | Site | | | Action | Date | | | | + +--------+ +------+------+------+ | calamine lotion Topical, ONCE, | Given | 08/01/20 | | | | | 08/01/19 at 1950, For 1 | | 19 7:54 | | | | | dose, Apply to: Other (Comment), | | PM PST | | | | | Other location: 1 | | | | | | + +--------+ +------+------+------+ +---+---+ | | | +---+---+ + +-------+ +-------+---+---+ | famotidine (PEPCID) tablet 20 | Given | 08/01/20 | 20 mg | | | | mg 20 mg, Oral, ONCE, Sun | | 19 7:55 | | | | | 08/01/19 at 1935, For 1 dose | | PM PST | | | | + +-------+ +-------+---+---+ +---+---+ | | | +---+---+ + +-------+ +---------+---+---+ | methylPREDNISolone sodium | Given | 08/01/20 | 62.5 mg | | | | succinate (solu-MEDROL) 62.5 | | 19 7:55 | | | | | mg/mL injection 62.5 mg 62.5 mg, | | PM PST | | | | | Intravenous, ONCE, 08/01/19 | | | | | | | at 1935, For 1 dose, Mix with 2 | | | | | | | mL provided diluent to make 62.5 | | | | | | | mg/mL., | | | | | | + +-------+ +---------+---+---+ +---+---+ | | | +---+---+ documented in this encounter
--- OUTSIDE RECORDS SUMMARY | ~2020-06-16 | XMS | Encounter Summary ---
Demographics + + + | Address | [address] | | | [place] [address] | + + + | Home Phone [...] + + | Author | [facility] | | | and [place] | + + + | Organization | [facility] | | | [...] [place], | | | | | [place] [address] | | + + + + + Care Team Providers + +------+ + | Care Keno Clerk Name | Role | Phone | + +------+ + | Dimitri Fischer MD | PCP | | + +------+ + Encounter Details +--------+ + + + + | Date | Type | Department | Care Team | Description | +--------+ + + + + | 12/22/ | Hospital | [facility] | Marty Wood | Left elbow pain | | 2018 | Encounter | MED CTR TOLU XRAY | MD [address]ia [address] [facility] | | | | | [address] | [place] | | | | | [place] | [address] | | | | | [address] | | | | | | [phone] | | | +--------+ + + + [...] 8 | | phetamine (ADDERALL) | and / tablet at | | | | | | 20 mg tablet | noon | | | | | + + + +---------+ + + | B-D 3CC LUER-ANDREAS | use to INJECT | | 0 | 07/09/20 | | | SYR [id number] 22G X | TESTOSTERONE TWICE A | | | 17 | 9 | | 1-09/23" 3 ML MISC | WEEK | | | | | + + + +---------+ + + | B-D 3CC LUER-ANDREAS | | | 0 | 11/18/19 | | | SYR [id number] 23G X | | | | 18 [...] | 9 | | units capsule | days | | | | | [...] LEFT 3 + VW | Routin | 12/22/2017 | Left elbow pain | Results for this | | | e | 3:31 PM | | procedure are in the | | | | PDT | | results section. | + +--------+ + + + documented in this encounter Results XR Elbow Left 3 + Vw (12/22/2017 3:31 PM PDT) + + | Specimen | + + | | + + + + + | Narrative | Performed At | + + + | XR ELBOW LEFT 3 + VW 12/22/2017 3:31 PM HISTORY: left elbow pain. | [facility] | | COMPARISON: 02/07/2017. FINDINGS: Similar olecranon triceps | | | insertional enthesopathy. Soft tissue swelling projects over the | | | dorsal aspect of the distal humerus and olecranon. No evidence of | | | joint effusion. Chronic mild irregularity is seen along the lateral | | | aspect of the radial head, also seen on 02/07/2017. Mild enthesopathy | | | near the common extensor bundle organ at the distal left humeral | | | lateral epicondyle. IMPRESSION - No acute osseous abnormality | | | involving the elbow. Similar to slightly worsened soft tissue | | | swelling along the dorsal aspect of the distal left humerus and | | | olecranon, considerations include traumatic or infectious etiologies. | | | Olecranon triceps insertional enthesopathy and enthesopathy at | | | the humeral common extensor bundle insertion at the level of the | | | lateral epicondyle. Dictated and Signed by: Fabien Michelle MD | | | Electronically signed: 12/22/2017 4:05 PM | | + + + + + | Procedure Note | + + | Kiko, Rad Results In - 12/22/2017 4:08 PM PDT XR ELBOW LEFT 3 + VW 12/22/2017 3:31 PM | | | | HISTORY: left elbow pain. | | | | COMPARISON: 02/07/2017. | | | | FINDINGS: | | Similar olecranon triceps insertional enthesopathy. Soft tissue swelling | | projects over the dorsal aspect of the distal humerus and olecranon. No evidence | | of joint effusion. Chronic mild irregularity is seen along the lateral aspect of | | the radial head, also seen on 02/07/2017. Mild enthesopathy near the common | | extensor bundle organ at the distal left humeral lateral epicondyle. | | | | IMPRESSION - | | No acute osseous abnormality involving the elbow. | | | | Similar to slightly worsened soft tissue swelling along the dorsal aspect of the | | distal left humerus and olecranon, considerations include traumatic or | | infectious etiologies. | | | | Olecranon triceps insertional enthesopathy and enthesopathy at the humeral | | common extensor bundle insertion at the level of the lateral epicondyle. | | | | Dictated and Signed by: Fabien Michelle MD | | Electronically signed: 12/22/2017 4:05 PM | + + + +---------+ + [...] arm | + + documented in this encounter
--- OUTSIDE RECORDS SUMMARY | ~2020-06-16 | XMS | Encounter Summary ---
Demographics + + + | Address | [address] [facility] [address] | | | [place] [address] | + + + | Home Phone [...] [place], | | | | | [place] [address] | | + + + + + Care Team Providers + +------+ + | Care Clinical Trial Educator Name | Role | Phone | + [...] Osteomyeliti | MD [address] | | | | | s, | [address] | [place], | | | | | [place], | [place], | [place] [address] | | | | | or IM 2G | [place] | Phone: | | | | | daily X42 | [address] | [phone] | | | | | days | Phone: | Fax: | | | | | Procedures | [phone] | [phone] | | | | | [place] | Fax: | | | | | | CEFTRIAXONE | [phone] | | | | | | SODIUM [...] | +--------+ + + + + | 12/17/ | Hospital | [facility] | [place], | No Show | | 2019 | Encounter | MED CTR OP INFUSION | [address] | | | | | [address] | [place] | | | | | [place] | [address] | | | | | [address] | [phone] | | | | | [phone] | | | +--------+ + + + [...]
--- OUTSIDE RECORDS SUMMARY | ~2020-06-16 | XMS | Encounter Summary ---
Demographics + + + | Address | [address] [facility] [facility] [address] [facility] | | | [place] [address] | + + + | Home Phone | | + + + | Preferred Language | Unknown | + + + | Marital Status | | + + + | Baptist Affiliation | Unknown | + + + | Race | White | + + + | Ethnic Group | Not or | + + + Author + + + | Author | [facility] | | | and [place] | + + + | Organization | [facility] | | | [...] [place], | | | | | [place] [address] | | + + + + + Care Team Providers + +------+ + | Care Therapeutic Recreation Leader Name | Role | Phone | + +------+ + PCP | Unavailable | + +------+ + Reason for Visit +--------+--------+ + | Reason | Onset | Comments | | | Date | | +--------+--------+ + | Other | 12/27/ | Questions | | | 2015 | | +--------+--------+ + Encounter Details +--------+ + + + + | Date | Type | Department | Care Team | Description | +--------+ + + + + | 12/27/ | Telephone | [facility] | Marty Wood | Other (Questions) | | 2014 | | ORTHOPEDIC SURGERY | MD [place] [address] [facility] | | | | | [address] | [place] | | | | | [place] | [address] | | | | | [address] | | | | | | [phone] | | | +--------+ + + + [...] this encounter Miscellaneous Notes Telephone Encounter - Dionne Sandoval - 03/13/2015 4:18 PM PDTPatient called today 5 and states that he fell in [employer] on 03/07/15. He has seen his primary care provider a lready, but he is concerned that he has done some damage to his knee that Dr. Wood did surgery on 12/05/14. Due to Dr. Wood not being in the office, patient referred to the on-call provider from 03/07/15, Dr. Haed. Dionne Sandoavl DATE/TIME: 03/13/2015 16:22 elephone Encounter - Janay Mendoza LPN - 12/29/2014 3:38 PM PDTPt returned call, states he thinks since he fel l, his pain has been worse, asking for pain medication. I advised per Dr Wood that he n eeds to be evaluated at either ER or urgent care. Pts S/O voices understanding.Electronical ly signed by Janay Zhu LPN at 12/29/2014 3:41 PM PDTTelephone Encounter - Deb Do - 12/29/2014 1:45 PM PDTLeft message for patient to call office.Electronically sig reva by Ree Do at 12/29/2014 1:46 PM PDTTelephone Encounter - Claudia Gray Mas ter of Arts - 12/28/2014 3:[address] Wood, patient will need to go to urgent ca re or the emergency if he needs medical attention prior to his scheduled appointment. Electr onically signed by Master Greenberg of Arts at 12/28/2014 3:03 PM PDTTelephone Encount er - Janay Zhu LPN - 12/28/2014 2:29 PM PDTCalled pt ,left message to return my ananya l. elephone Encounte r - Claudia Gray Master of Arts - 12/28/2014 9:50 AM PDTCalled [phone] and left mes darron for either Tasha or Cecilio to give me a call back. elephone Encounter - Ree Do - 12/28/2014 9:37 AM PDTCrystal called wanting to speak with nurse. Patient tripped and fe ll. Please call [phone]. elephone Encounter - Janell Huerta - 12/27/2014 11:07 AM PDTPatient had surgery 3 we eks ago and believes that the knee isn't healing correctly. Patient has a couple of questio ns and would like to speak with the nurse regarding this. Please call patient at [phone]. documented in this encou nter Plan of Treatment Not on filedocumented as of this encounter Visit Diagnoses Not on filedocumented in this encounter"
--- OUTSIDE RECORDS SUMMARY | ~2020-06-16 | XMS | Encounter Summary ---
Demographics + + + | Address | [address] [facility] [facility] [facility] | | | [place] [address] | + + + | Home Phone [...] + + + | Author | [facility] | | | and [place] | + + + | Organization | [facility] | [...] [place], | | | | | [place] [address] | | + + + + + Care Team Providers + +------+ + | Care Cereal Maker Name | Role | Phone | [...] | | | | | | [place] KNEE | | | | | | | SCOPE,DIAGNO | | | | | | | STIC [place] | | | | | | | KNEE | | | | | | | SCOPE,PART | | | | | | | SYNOVECT [place] | | | | | | | KNEE | | | | | | | SCOPE,SHAVE | | | | | | | ARTICULAR | | | | | | | CART [place] | | | | | | | ARTHRS KNEE | | | | | | | W/MENISCECTO | | | | | | | MY MED&LAT | | | | | | | W/SHAVING | | | | | | | [place] ARTHRS | | | | | | | KNE SURG | | | | | | | W/MENISCECTO | | | | | | | MY MED/LAT | | | | | | | W/SHVG [place] | | | | | | | KNEE | | | | | | | SCOPE,MED OR | | | | | | | LAT MENIS | | | | | | | REPAIR [place] | | | | | | [...] + + + + | 02/11/ | Anesthesia | DANNY DAWSON | Brandon Bro | | | 2018 | Event | MED CTR OR INTRA OP | Ravi SAPP MD [address] | | | | | [address] | [address] | | | | | [place] | [place] [address] | | | | | [address] | [phone] | | | | | [phone] | | | +--------+ + + + + Anesthesia Record + + + + + | Procedure Name | Responsible | Anesthesia Start | Anesthesia Stop Time | | | Anesthesiologist | Time | | + + + + + | Right Knee | Brandon Bro | 02/11/18 1106 | 02/11/18 1206 | | Arthroscopy & | MD SENAIT | | | | bilateral Elbow | | | | | Injections, Lateral | | | | | Tibial | | | | | Chondroplasty, | | | | | Medial Femoral | | | | | Chondroplasty, | | | | | Partial medial | | | | | meniscectomy (Right | | | | | Knee) | | | | + + + + + +----+---+ + + | Da | T | Event | Comment | | te | i | | | | | m | | | | | e | | | +----+---+ + + | 05 | 1 | | | | /2 | 1 | | | | 3/ | 0 | | | | 20 | 0 | | | | 18 | | | | +----+---+ + + [...] | An Start | | | | 1 | Data | | | | 0 | | | | | 8 | | | +----+---+ + + | | 1 | Preoxygenat | | | | 1 | ed | | | | 0 [...] | 1 | | | | | 1 | | | +----+---+ + + | | 1 | AN Bite | | | | 1 | Block | | | | 1 | | | | | 2 | | | +----+---+ + + | | 1 | [place] | | | | 1 | 43-degrees | | | | 1 | | | | | 9 | | | +----+---+ + + | | 1 | Pre-Procedu | | | | 1 | ral Timeout | | | | 2 | Completed | | | | 6 | | | +----+---+ + + | | 1 | First | | | | 1 | Inc/Proc St | | | | 2 | | | | | 8 | | | +----+---+ + + | | 1 | [place] off | | | | 2 | | | | | 0 | | | | | 2 | | | +----+---+ + + | | 1 | AN No | TOF 4/4 with sustained tetanus. | | | 2 | Residual | | | | 0 | NMB | | | | 2 | | | +----+---+ + + | | 1 | an stop | | | | 2 | data | | | | 0 | | | | | 2 | | | +----+---+ + + | | 1 | An Stop | Patient handed off to recovery nurse. | | | 0 | | | | | 6 | | | +----+---+ + + +------+ | Meds | +------+ + + + | Name | Total | + + + | Phenylephrine 100mcg/mL SYRINGE | 200 mcg | + + + | lidocaine 1% | 50 mg | + + + | propofol (DIPRIVAN) injection | 180 mg | | (bolus) (20 mL) | | + + + | propofol | 1,123.2 mg | + + + | dexmedetomidine (Bolus) | 50 mcg | + + + | dexamethasone (PF) injection 10 | 10 mg | | mg/mL | | + + + | ceFAZolin (ANCEF, KEFZOL) 100 | 2 g | | mg/mL IV syringe 2 g | | + + + | lactated [...] +--------+ + + + | Periph | 02/11/18; 1110; Left; Forearm; | 02/11/18 1110 by | 02/11/18 1400 by | | eral | [id number]-[id number] catheter system; | Betty Samaniego RN | Selene Morales RN | | IV | 20 gauge; distraction, | | | | | intradermal injection; no longer | | | | | indicated, removed per | | | | | policy/procedure, catheter/device | | | | | intact; healing within | | | | | expectations; 02/11/18; 1400 | | | +--------+ + + + | Airway | Placement Date: 02/11/18; | 02/11/18 1126 by | 02/11/18 1218 by | | | Placement Time: 1126 (created via | Brandon Bro | Rufino Hartman RN | | | procedure documentation); Mask | MD SENAIT | | | | Ventilation: EZ; Attempts: 1; | | | | | Airway Type: laryngeal mask; | | | | | Size: 5; Placement Check: exhaled | | | | | CO2 detection device, bilateral | | | | | chest rise, breath sounds equal | | | | | bilaterally; Removal Date: | | | | | 02/11/18; Removal Time: 1218 | | | +--------+ + + + | Read | 02/11/18; 1134; Right; leg; | 02/11/18 1134 by | 02/11/18 1400 by | | only - | healing within expectations; | Yulissa Medrano RN | Selene Morales RN | | | 02/11/18; 1400 | | | | Incisi | | | | [...] encounter OR Notes Anesthesia Postprocedure Evaluation - Brandon Bro II, MD - 02/11/2018 1:49 PM PDTF ormatting of this note might be different from the original. ANESTHESIA POSTANESTHESIA EVALUATION Cecilio Figueroahank 47 y.o. male 1970 [id number] Procedure(s) Right Knee Arthroscopy & bilateral Elbow Injections, Lateral Tibial Chondropl asty, Medial Femoral Chondroplasty, Partial medial meniscectomy (Right Knee) Cooperates? Yes Mental Status Performs simple tasks. Respiratory Satisfactory - Airway patent (self maintained). Cardiovascular Satisfactory - Blood pressure and heart rate acceptable Temperature Satisfactory Pain Satisfactory N/V Control Satisfactory Hydration Satisfactory - No signs of dehydration Complications None apparent Vitals: 02/11/18 1255 02/11/18 1300 02/11/18 1305 BP: 106/71 100/62 Pulse: 52 52 51 Temp: Resp: SpO2: 100% 100% 99% Electronically signed by Brandon Bro II, MD 02/11/2018 13:49 [facility] nesthesia Procedure Notes - Brandon Bro II, MD - 02/12/20 11:26 AM PDTAssociated Order(s): ANE AIRWAY NOTEAnesthesia Airway Placement Preprocedure check: patient identified, oxygen, airway assessed, patient reassessment prior to induction, airway equipment checked and suction Rapid Sequence Induction: no Mask ventilation: easy Attempts: 1 Airway type: laryngeal mask Size: 5 Cuffed: cuffed Route, reference point: center of mouth Tube secured with: adhesive tape Tube placement verification: bilateral chest rise, equal bilateral breath sounds and carbon dioxide detection Performing provider: BRANDON BRO II Electronically Signed by: Brandon Bro II, MD ESig date/time : 02/11/2018 11:26 nesthesia Pre procedure Evaluation - Brandon Bro II, MD - 02/11/2018 10:59 AM PDTFormatting of thi s note might be different from the original. ANESTHESIA PREANESTHESIA EVALUATION Cecilio Arias 47 y.o. male 1970 [id number] Procedure(s): Right Knee Arthroscopy & Left Elbow Injection & Bilateral Shoulder Injections (Right Knee) Medical history, anesthesia, medications, allergy, NPO status verified histories reviewed. Labs reviewed. Review of Systems / Med History Anesthesia History (+) PONV Pulmonary (+) COPD Neurology (+) seizures, back pain Psychology (+) substance abuse (chronic opioid dependence, on methadone) Gastrointestinal/Hepatic (+) hyperlipidemia Endocrine (+) Diabetes:(+) obesity: Physical Exam Airway MP II, TM >3 FB, Mouth opening >2 FB. Neck: full ROM, extends >30 degrees. Jaw protrus ion normal. CV Rhythm regular. Rate normal. Anesthesia Plan ASA 3 Type: General. Induction: Intravenous. Potential problems: None anticipated. Monitors: Standard ASA monitors. Consent statement: . Consenting person understands and agrees to proceed. Electronically Signed by: Brandon Bro II, MD ESig date/time: 02/11/2018 10:59 documented in this encounter Plan of Treatment Not on filedocumented as of this encounter Procedures + +--------+ + + + | Procedure Name | Priori | Date/Time | Associated Diagnosis | Comments | | | ty | | | | + +--------+ + + + | ANE AIRWAY NOTE | Routin | 02/11/2018 | | Results for this | | | e | 11:26 AM | | procedure are in the | | | | PDT | | results section. | + +--------+ + + + documented in this encounter Results Anesthesia Airway Note (02/11/2018 11:26 AM PDT) + + + | Narrative | Performed At | + + + | Brandon Bro II, MD 02/11/2018 11:26 Anesthesia Airway | | | Placement Preprocedure check: patient identified, oxygen, airway | | | assessed, patient reassessment prior to induction, airway equipment | | | checked and suction Rapid Sequence Induction: no Mask ventilation: | | | easy Attempts: 1 Airway type: laryngeal mask Size: 5 Cuffed: | | | cuffed Route, reference point: center of mouth Tube secured with: | | | adhesive tape Tube placement verification: bilateral chest rise, | | | equal bilateral breath sounds and carbon dioxide detection | | | Performing provider: BRANDON BRO II Electronically | | | Signed by: Brandon Bro II, MD | | | ESig date/time: 02/11/2018 11:26 | | + + + + + | Procedure Note | + + | Brandon Bro II, MD - 02/11/2018 11:26 AM PDT Anesthesia Airway | | PlacementPreprocedure check: patient identified, oxygen, airway assessed, patient | | reassessment prior to induction, airway equipment checked and suctionRapid Sequence | | Induction: noMask ventilation: easyAttempts: 1Airway type: laryngeal maskSize: 5Cuffed: | | cuffedRoute, reference point: center of mouthTube secured with: adhesive tapeTube | | placement verification: bilateral chest rise, equal bilateral breath sounds and carbon | | dioxide detectionPerforming provider: BRANDON BRO IIElectronically Signed by: | | Brandon Bro II, MD ESig date/time: 02/11/2018 11:26 | | | |Route, reference point: center of mouth | |Tube secured with: adhesive tape | |Tube placement verification: bilateral chest rise, equal bilateral breath sounds and carbon dioxide detection | |Performing provider: BRANDON BRO II | | | | | |Electronically Signed by: Brandon Bro II, MD ESig date/time : 02/11/2018 11:26 | | | + + documented in this encounter Visit Diagnoses Not on filedocumented in this encounter Administered Medications + +--------+ +------+------+------+ | Medication Order | MAR | Action | Dose | Rate | Site | | | Action | Date | | | | + +--------+ +------+------+------+ | ceFAZolin (ANCEF, KEFZOL) 100 | Given | 02/12/20 | 2 g | | | | mg/mL IV syringe 2 g 2 g, | | 18 11:06 | | | | | Intravenous, Administer over 30 | | AM PDT | | | | | Minutes, Prior to Incision, | | | | | | | Starting Fri02/11/18 at 0518, For | | | | | | | 1 dose, Give within one hour | | | | | | | prior to incision., Pre-op, | | | | | | | Indications: Surgical Prophylaxis | | | | | | + +--------+ +------+------+------+ +---+---+ | | | +---+---+ + +-------+ +-------+---+---+ | dexamethasone (PF) 10 mg/mL | Given | 02/12/20 | 10 mg | | | | injection Intravenous, PRN, | | 18 11:06 | | | | | Starting Fri02/11/18 at 1106, | | AM PDT | | | | | Anesthesia Intra-op | | | | | | + +-------+ +-------+---+---+ +---+---+ | | | +---+---+ + +-------+ +--------+---+---+ | dexmedetomidine (PRECEDEX) in | Given | 02/12/20 | 50 mcg | | | | sodium chloride bolus infusion | | 18 11:06 | | | | | Intravenous, PRN, Starting Wed | | AM PDT | | | | | 02/11/18 at 1106, Anesthesia | | | | | | [...] +---+---+ + +-------+ +-------+---+---+ | lidocaine (PF) 1% injection | Given | 02/12/20 | 50 mg | | | | Intravenous, PRN, Starting Wed | | 18 11:06 | | | | | 02/11/18 at 1106, Anesthesia | | AM PDT | | | | | Intra-op | | | | | | + +-------+ +-------+---+---+ +---+---+ | | | +---+---+ + +-------+ +---------+---+---+ | phenylephrine (SKYE-SYNEPHRINE) | Given | 02/12/20 | 100 mcg | | | | 100 mcg/mL injection | | 18 11:22 | | | | | Intravenous, PRN, Starting Wed | | AM PDT | | | | | 02/11/18 at 1120, Anesthesia | | | | | | | Intra-op | | | | | | + +-------+ +---------+---+---+ +-------+ +---------+---+---+ | Given | 02/12/20 | 100 mcg | | | | | 18 11:20 | | | | | | AM PDT | | | | +-------+ +---------+---+---+ +---+---+ | | | +---+---+ + +-------+ +--------+---+---+ | propofol (DIPRIVAN) injection | Given | 02/12/20 | 100 mg | | | | Intravenous, PRN, Starting Wed | | 18 11:10 | | | | | 02/11/18 at 1106, Anesthesia | | AM PDT | | | | | Intra-op | | | | | | + +-------+ +--------+---+---+ +-------+ +-------+---+---+ | Given | 02/12/20 | 20 mg | | | | | 18 11:09 | | | | | | AM PDT | | | | +-------+ +-------+---+---+ | Given | 02/12/20 | 20 mg | | | | | 18 11:08 | | | | | | AM PDT | | | | +-------+ +-------+---+---+ +---+---+ | | | +---+---+ + +---------+ + +--------+---+ | propofol (DIPRIVAN) injection | New Bag | 02/12/20 | 200 | 112.3 | | | Intravenous, CONTINUOUS PRN, | | 18 11:06 | mcg/kg/m | mL/hr | | | Starting 02/11/18 at 1106, | | AM PDT | in | | | | Anesthesia Intra-op | | | | | | + +---------+ + +--------+---+ +---+---+ | | | +---+---+ documented in this encounter"
--- OUTSIDE RECORDS SUMMARY | ~2020-06-16 | XMS | Encounter Summary ---
Demographics + + + | Address | [address] | | | [place] [address] | + + + | Home Phone [...] [place], | | | | | [place] [address] | | + + + + + Care Team Providers + +------+ + | Care Compound Coating Machine Offbearer Name | Role | Phone | + [...] | | | | | | | [place] [facility] | | | | | | [...] + + | 11/29/ | Hospital | [facility] | Ruslan Chu | | | 2019 | Encounter | [facility] OR [facility] OP | MD [address] | | | | | [address] | [place] | | | | | [place] | [place], [place] [address] | | | | | [address] | [phone] | | | | | [phone] | | | +--------+ + + + [...] as of this encounter Discharge Instructions Instructions Betty Samaniego RN - 11/30/2019FOLLOWING SURGERY: Wear the patch and shield until [...] symptoms, immediately call your eye doctor or [facility] at (dial "9" after hours or on weekends): Bleeding or discharge from the eye. Vision suddenly becomes worse. Huge increase in floaters. Flashing lights or a curtain over part of or all of your vision. Severe pain not relieved by the pain reliever you've been instructed to take. Nausea, vomiting, chills, or fever over 100.4. 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 Two side ports were made and the anterior chamber was filled with viscoelastic. A keratome was used to create t he main wound temporally. Utrata forceps were used for a capsulorhexis. After hydrodissectio n, the lens was phacoemulsified and residual cortex was aspirated. The artificial lens was p laced under viscoelastic which was then removed. The wounds were checked and found to be mairi ertight. Vigamox 0.1cc was placed in the anterior chamber. Triamcinolone 3mg was placed in the subconjunctival space. Pilocarpine 1% drops were placed on the eye. A patch and shield w ere placed over the eye. Postoperative Plan: The patient was sent to recovery in good condition. Complications: none Estimated Blood Loss: none nterval H&P No te (unlinked) - Ruslan Chu MD - 11/30/2019 12:58 PM PDTSURGICAL INTERIM HISTORY & PHYSICAL UPDATE Pt. Name/Age/: Cecilio Arias 49 y.o. 1970 Date of admission: 11/30/2019 The current H&P was reviewed. The patient [...] obtained. Electronically signed by: Ruslan Chu MD, 11/30/2019 12:58 PM [facility] documented in t his encounter Plan of Treatment Not on filedocumented as of this encounter Procedures + +--------+ + + + | Procedure Name | Priori | Date/Time | Associated Diagnosis | Comments | | | ty | | | | + +--------+ + + + | EXTRACTION CATARACT | | 11/30/2019 | Combined forms of | | | W/ OR W/O LENS | | 1:04 PM | age-related | | | IMPLANT | | PDT | cataract, left eye | | + +--------+ + + + | POC GLUCOSE | Routin | 11/30/2019 | | Results for this | | | e | 12:30 PM | | procedure are in the | | | | PDT | | results section. | + +--------+ + + + documented in this encounter Results POC Glucose (11/30/2019 12:30 PM PDT) + +---------+ + + + | Component | Value | Ref Range | Performed | Pathologist | | | | | At | Signature | + +---------+ + + + | Glucose, | 215 (H) | 70 - 109 mg/dL | [...] + | [facility] | [address] | [place] | [phone] | | [facility] | | [id number] | | | - LABORATORY | | [...] Nebulization, ONCE PRN, | | | Wheezing, Starting 11/30/19 at | | | 1209, For 1 dose, Pre-op | | + +---+ | | | + +---+ | albuterol-ipratropium 2.5-0.5 | | | mg/3 mL nebulizer solution 3 mL | | | 3 mL, Nebulization, ONCE PRN, | | | Wheezing, Shortness of Breath, | | | Starting 11/30/19 at 1326, For | | | 1 dose, Recovery/Phase [...] glucose < 50, | | | Starting 11/30/19 at 1209, | | | Repeat in 15 min [...] | | blood glucose < 50, Starting Tue | | | 11/30/19 at 1326, Give over 2 min. | | | Repeat in 15 min if blood | | | glucose remains < 70 mg/dL. | | | Repeat blood glucose in 30 min | | | once blood glucose > 70., | | | Recovery/Phase I | | + +---+ | | | + +---+ + +-------+ +--------+---+---+ | fentaNYL (PF) injection 25-50 | Given | 11/30/19 | 50 mcg | | | | mcg 25-50 mcg, Intravenous, | | 20 1:52 | | | | | EVERY 5 MIN PRN, Pain, Initial | | PM PDT | | | | | postop urgent pain or escalating | | | | | | | pain, Starting 11/30/19 at | | | | | | | 1326, For 4 doses, Every 5 | | | | | | | minutes PRN for initial postop | | | | | | | urgent pain or escalating pain up | | | | | | | to 2 doses maximum. If patient | | | | | | | meets opioid tolerant definition, | | | | | | | can give up to 4 doses maximum. | | | | | | | First dose must be lowest dose. | | | | | | | Use Pasero Sedation Scale. | | | | | | | [Opioid tolerant = One week or | | | | | | | longer, wuxeqw-abj-lawgd use of | | | | | | | at least the following DAILY | | | | | | | dose: 60mg oral morphine, 60mg | | | | | | | oral hydrocodone, 30mg oral | | | | | | | oxycodone, 8mg oral | | | | | | | hydromorphone, fentanyl patch | | | | | | | 25mcg/hr, or equivalent dose of | | | | | | | another opioid], Recovery/Phase I | | | | | | + +-------+ +--------+---+---+ +-------+ +--------+---+---+ | Given | 11/30/19 | 25 mcg | | | | | 20 1:47 | | | | | | PM PDT | | | | +-------+ +--------+---+---+ + +---+ | | | + +---+ | hydrALAZINE (APRESOLINE) | | | injection 5 mg 5 mg, | | | Intravenous, EVERY 20 MINUTES | | | PRN, For SBP > 180, DBP > 100, | | | Starting 11/30/19 at 1326, | | | Hold if HR > 100. Maximum total | | | dose 40 mg. Use labetalol first | | | if available., Recovery/Phase I | | + +---+ | | | + +---+ | HYDROmorphone (DILAUDID) | | | injection 0.2-0.6 mg 0.2-0.6 mg, | | | Intravenous, EVERY 5 MIN PRN, | | | Pain, Starting 3/10/20 at | | | 1326, First dose must be lowest | | | dose, can increase subsequent | | | doses by 0.2mg within dosing | | | range. If patient meets opioid | | | tolerant definition, can start | | | with 0.4mg dose. [Maximum total | | | PACU dose 4mg] Use Pasero | | | Sedation Scale. [Opioid tolerant | | | = One week or longer, | | | fcoyko-uiq-ulmnw use of at least | | | the following DAILY dose: 60mg | | | oral morphine, 60mg oral | | | hydrocodone, 30mg oral oxycodone, | | | 8mg oral hydromorphone, fentanyl | | | patch 25mcg/hr, or equivalent | | | dose of another opioid], | | | Recovery/Phase I | | + +---+ | | | + +---+ | labetalol (TRANDATE) 5 mg/mL | | | injection 5 mg 5 mg, | | | Intravenous, EVERY 5 MIN PRN, For | | | SBP > 180, DBP > 100, Starting | | | 11/30/19 at 1326, Hold if HR < | | | 60.Notify anesthesia if patient | | | requires more than 50mg., | | | Recovery/Phase I | | + +---+ | | | + +---+ + + + +---+---+---+ | lactated ringers (LR) infusion | Continue | 11/30/19 | | | | | at 10-100 mL/hr, Intravenous, | d by | 20 1:12 | | | | | CONTINUOUS, Starting Fri11/30/19 | Anesthes | PM PDT | | [...] | lidocaine (AKTEN) 3.5% | Given | 11/30/19 | 1 drop | | | | ophthalmic gel 1 drop 1 drop, | | 20 12:33 | | | | | Left Eye, EVERY 5 MIN PRN, Begin | | PM PDT | | | | | after proparacaine., Starting Fri | | | | | | | 11/30/19 at 1209, For 2 doses, | | | | | | | Begin 10 minutes prior to | | | | | | | leaving SDS for operating room. | | | | | | | Repeat jelly just prior to | | | | | | | leaving SDS and Q10 minutes until | | | | | | | in the operating room. Keep eye | | | | | | | closed after placing medication., | | | | | | | Pre-op | | | | | | + +-------+ +--------+---+---+ +-------+ +--------+---+---+ | Given | 11/30/19 | 1 drop | | | | | 20 12:18 | | | | | | PM PDT | | | | +-------+ +--------+---+---+ + +---+ | | | + +---+ | meperidine (DEMEROL) injection | | | 12.5-25 mg 12.5-25 mg, | | | Intravenous, PRN, Shivering, | | | Starting 11/30/19 at 1326, For | | | 2 doses, May Repeat once in 5 | | | min., Recovery/Phase I | | + +---+ | | | + +---+ | ondansetron (ZOFRAN) injection | | | 4 mg 4 mg, Intravenous, EVERY 4 | | | HOURS PRN, Nausea, Vomiting, | | | Starting 11/30/19 at 1326, | | | Recovery/Phase I | | + +---+ | | | + +---+ + +-------+ +--------+---+---+ | phenylephrine (SKYE-SYNEPHRINE) | Given | 11/30/19 | 1 drop | | | | 2.5% ophthalmic solution 1 drop | | 20 12:33 | | | | | 1 drop, Left Eye, EVERY 5 MIN | | PM PDT | | | | | PRN, prep eye for procedure, | | | | | | | Starting 11/30/19 at 1209, For | | | | | | | 3 doses, Remind patient to keep | | | | | | | eye closed after placing each eye | | | | | | | drop., Pre-op | | | | | | + +-------+ +--------+---+---+ +-------+ +--------+---+---+ | Given | 11/30/19 | 1 drop | | | | | 20 12:25 | | | | | | PM PDT | | | | +-------+ +--------+---+---+ | Given | 11/30/19 | 1 drop | | | | | 20 12:18 | | | | | | PM PDT | | | | +-------+ +--------+---+---+ +---+---+ | | | +---+---+ + +-------+ +--------+---+---+ | proparacaine (ALCAINE) 0.5% | Given | 11/30/19 | 1 drop | | | | ophthalmic solution 1 drop 1 | | 20 12:18 | | | | | drop, Left Eye, ONCE, 11/30/19 | | PM PDT | | | | | at 1230, For 1 dose, After | | | | | | | placing anesthetic, keep eye | | | | | | | closed except for when placing | | | | | | | additional medications. All other | | | | | | | drops/gel should follow this | | | | | | | drop., Pre-op | | | | | | + +-------+ +--------+---+---+ +---+---+ | | | +---+---+ + +-------+ +--------+---+---+ | tropicamide (MYDRIACYL) 1% | Given | 11/30/19 | 1 drop | | | | ophthalmic solution 1 drop 1 | | 20 12:33 | | | | | drop, Left Eye, EVERY 5 MIN PRN, | | PM PDT | | | | | prep eye for procedure, Starting | | | | | | | 11/30/19 at 1209, For 3 doses, | | | | | | | Remind patient to keep eye | | | | | | | closed after placing each eye | | | | | | | drop., Pre-op | | | | | | + +-------+ +--------+---+---+ +-------+ +--------+---+---+ | Given | 11/30/19 | 1 drop | | | | | 20 12:25 | | | | | | PM PDT | | | | +-------+ +--------+---+---+ | Given | 11/30/19 | 1 drop | | | | | 20 12:18 | | | | | | PM PDT | | | | +-------+ +--------+---+---+ +---+---+ | | | +---+---+ documented in this encounter
--- OUTSIDE RECORDS SUMMARY | ~2020-06-16 | XMS | Encounter Summary ---
Demographics + + + | Address | [address] | | | [place] [address] | + + + | Home Phone [...] [place], | | | | | [place] [address] | | + + + + + Care Team Providers + +------+ + | Care Vice President Of Operations Name | Role | Phone | + [...] | Osteomyeliti | [address] | | | | | [address] | [address] | [place], | | | | | Radames | [place], | [place] [address] | | | | | Cefepime for | [place] | Phone: | | | | | | [address] | [phone] | | | | | osteomyeliti | Phone: | Fax: | | | | | s Will get | [phone] | [phone] | | | | | 2 doses, | Fax: | | | | | | then cedric | [phone] | | | | | | will take | | | | | | | over | | | | | | | Procedures | | | | | | | NV CEFEPIME | | | | | | | HCL FOR | | | | | | | INJECTION, | | | | | | | 500 MG NV | | | | | | | [...] | +--------+ + + + + | 08/10/ | Hospital | [facility] | Alexander Crum, | Acute osteomyelitis | | 2018 | Encounter | MED CTR OP INFUSION | MD [address] | of toe of right foot | | | | [address] | [place] | ([facility]) | | | | [place] | [address] | | | | | [address] | [phone] | | | | | [phone] | | | +--------+ + + + [...] this encounter Last Filed Vital Signs + +---------+ + + | Vital Sign | Reading | Time Taken | Comments | + +---------+ + + | Blood Pressure | 101/52 | 08/10/2018 8:39 AM | | | | | PST | | + +---------+ + + | Pulse | 110 | 08/10/2018 8:39 AM | | | | | PST | | + +---------+ + + | Temperature | - | - | | + +---------+ + + | Respiratory Rate | 18 | 08/10/2018 8:39 AM | | | | | PST | | + +---------+ + + | Oxygen Saturation | 98% | 08/10/2018 8:39 AM | | | | | PST | | + +---------+ + + | Inhaled Oxygen | - | - | | | Concentration | | | | + +---------+ + + | Weight | - | - | | + +---------+ + + | Height | - | - | | + +---------+ + + | Body Mass Index | - | - | | + +---------+ + + documented in this encounter Medications [...] 1 tablet by | | 0 | //20 | | | (NEURONTIN) 600 MG | [...] 0 | 07/09/20 | | | SYR 02PK1-3/2 22G X | TESTOSTERONE TWICE A | [...] by mouth | | 0 | | 02/20/201 | | tablet | 2 times daily. [...] encounter Progress Notes Estefania Feliz RN - 08/10/2018 9:15 AM PST Vitals: 08/10/18 0839 BP: 101/52 Pulse: 110 Resp: 18 TempSrc: Oral SpO2: 98% Administrations This Visit cefepime (MAXIPIME) 2 g in sodium chloride 0.9% 50 mL IVPB Admin Date 08/10/2018 Action New Bag Dose 2 g Rate 100 mL/hr Route Intravenous Administered By Estefania Feliz RN Monitored throughout treatment; treatment completed without untoward effects from medicatio n noted. Next visit will be with Cedric for in home infusion therapy.. Verbalizes understandi ng of plan of care. VS stable. Discharged ambulatory to home in stable condition. Electronically signed by: Estefania Feliz RN 08/10/2018 9:50 eccio, Estefania Elise RN - 1 10/10/2017 8:43 AM PST Vitals: 08/10/18 0839 BP: 101/52 Pulse: 110 Resp: 18 Cecilio Arias received into room 440 independent ambulation accompanied by friend, States here for IVAB infusion. Reports no change in condition, plan of care since l alex MD visit. Alert, oriented x 4, cooperative. Electronically signed by: Estefania Feliz RN 08/10/2018 8:43 documented in this enc ounter Miscellaneous Notes Addendum Note - Pipe Grace PharmD - 08/10/2018 3:06 PM PSTEncounter addended by: Servando Grace PharmD on: 08/10/2018 15:06
Actions taken: Order list changedElectronicall y signed by Pipe Grace PharmD at 08/10/2018 3:06 PM PSTdocumented in this encounter Plan of [...] 2 g in | New Bag | 08/10/20 | 2 g | 100 | | | sodium chloride 0.9% 50 mL IVPB | | 18 8:31 | | mL/hr | | | 2 g, Intravenous, Administer over | | AM PST | | | | | 30 Minutes, ONCE, 08/10/18 | | | | | | | at 0840, For 1 dose, 2 grams IV | | | | | | | on 08/09 evening and 08/10 AM, | | | | | | | then [facility] will | | | | | | | take over. Activate system and | | | | | | | mix before use., Indications: | | | | | | | Osteomyelitis | | | | | | + +---------+ +------+-------+------+ +---+---+ | | | +---+---+ documented in this encounter
--- OUTSIDE RECORDS SUMMARY | ~2020-06-16 | XMS | Encounter Summary ---
Demographics + + + | Address | [address] | | | [place] [address] | + + + | Home Phone | | + + + | Preferred Language | Unknown | + + + | Marital Status | | + + + | Sabianism Affiliation | Unknown | + + + | Race | White | + + + | Ethnic Group | Not or | + + + Author + + + | Author | [facility] | | | and [place] | + + + | Organization | [facility] | | | and [...] [place], | | | | | [place] [address] | | + + + + + Care Team Providers + +------+ + | Care Motorcycle Mechanic Name | Role | Phone | + [...] + + | 08/08/ | Hospital | [facility] | Sabino Coronado MD | | | 2017 | Encounter | MED CTR IR INTRA OP | [address] | | | | | [address] | [place] | | | | | [place] | [address] | | | | | [address] | [phone] | | | | | [phone] | | | +--------+ + + + [...] + + + | Blood Pressure | 116/62 | 08/08/2017 11:30 AM | | | | | PST | | + + + + + | Pulse | 62 | 08/08/2017 11:30 AM | | | | | PST | | + + + + + | Temperature | 36.6 C (97.9 F) | 08/08/2017 10:15 AM | | | | | PST | | + + + + + | Respiratory Rate | 14 | 08/08/2017 10:35 AM | | | | | PST | | + + + + + | Oxygen Saturation | 99% | 08/08/2017 11:30 AM | | | | | PST [...] documented in this encounter Discharge Instructions Instructions Althea Arredondo RN - 08/08/2017Formatting of this note might [...] lung problems. Your ane sthesiologist or nurse chief pharmacist will discuss the risks with you. Date Last Reviewed: 08/22/[id number] [place] [address]. All righ ts reserved. This information is [...] 0 | 07/09/20 | | | SYR 89HY3-4/2 22G X | TESTOSTERONE TWICE A | [...] | [address] | [place] | [phone] | | [facility] | | [address] | | | - LABORATORY | | [...]
--- OUTSIDE RECORDS SUMMARY | ~2020-06-16 | XMS | Encounter Summary ---
Demographics + + + | Address | [address] | | | [place] [address] | + + + | Home Phone [...] [place], | | | | | [place] [address] | | + + + + + Care Team Providers + +------+ + | Care Physician Intensivist Name | Role | Phone | + +------+ + | Dimitri Fischer MD | PCP | | + +------+ + Reason for Visit + + + | Reason | Comments | + + + | Pre-op Exam | elbow joint expoloration and bilateral shoulder injections DOS | | | 03/14/17 | + + + Encounter Details +--------+---------+ + + + | Date | Type | Department | Care Team | Description | +--------+---------+ + + + | 03/04/ | Office | [facility] | Marty Wood | Preop testing | | 2017 | Visit | ORTHOPEDIC SURGERY | MD Gosia [address] | (Primary Dx); Other | | | | [address] | [place] | specified diabetes | | | | [place] | [address] | mellitus (HCC); | | | | [address] | | Hyperlipidemia, | | | | [phone] | | unspecified | | | | | | hyperlipidemia type; | | | | | | SOB (shortness of | | | | | | breath) on exertion; | | | | | | Bilateral shoulder | | | | | | pain, unspecified | | | | | | chronicity; | | | | | | Post-traumatic | | | | | | osteoarthritis of | | | | | | left elbow | +--------+---------+ + + + Social History [...] + + + | Blood Pressure | 121/58 | 03/04/2017 8:43 AM | | | | | PDT | | + + + + + | Pulse | 85 | 03/04/2017 8:43 AM | | | | | PDT | | + + + + + | Temperature | 37.1 C (98.7 F) | 03/04/2017 8:43 AM | | | | | PDT | | + + + + + | Respiratory Rate | 20 | 03/04/2017 8:43 AM | | | | | PDT | | + + + + + | Oxygen Saturation | 96% | 03/04/2017 8:43 AM | | | | | PDT | | + + + + + | Inhaled Oxygen | - | - | | | Concentration | | | | + + + + + | Weight | 102.5 kg (226 lb) | 03/04/2017 8:43 AM | | | | | PDT | | + + + + + | Height | 185.4 cm (6' 1") | 03/04/2017 8:43 AM | | | | | PDT | | + + + + + | Body Mass Index | 29.82 | 03/04/2017 8:43 AM | | | | | PDT | | + + + + + documented in this encounter H&P Marty Null MD - 03/04/2017 8:30 AM PDTFormatting of this note might be differen t from the original. History of present illness: Christopher is a 46 y.o. male who presents to our clinic today for a preop examination. Cecilio is scheduled for an open left elbow debridement and inj ection of both shoulders on 03/14/17. He has a several year history of increasing left elbow pain and stiffness and has been found on x ray exam to have increasing degenerative change in the left elbow with osteophyte formation in the anterior and posterior left elbow joint. In addition, he has known bilateral shoulder rotator cuff tendonitis. Therefore, he is fel t to be an appropriate candidate for open debridement of the left elbow combined with bilate ral shoulder subacromial space injection while under anesthesia. 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 Osteoporosis Seizure (HCC) Testosterone deficiency Vitamin D deficiency Past Surgical History: Procedure Laterality Date ELBOW SURGERY Left 11/15/2015 Procedure: Left Lateral Epicondylar Release & Injection of Left Elbow Joint ; Surgeon: Janet Wood MD; Location: [facility] MAIN OR KNEE ARTHROSCOPY Right 12/05/2014 Procedure: Right Knee Arthroscopy with Partial Medial Menisectomy and Medial- Femoral Tay droplasty; Surgeon: Marty Wood MD; Location: [facility] MA[facility] OR spinal cord injury Allergies Allergen Reactions Azithromycin Anaphylaxis Codeine Hives Hydrocodone Hives Sulfa Antibiotics Hives Current Outpatient Prescriptions on File Prior to Visit Medication Sig Dispense Refill cholecalciferol (VITAMIN D-3) 1,000 units capsule Take 1 capsule by mouth Daily. 90 cap ava 3 cyclobenzaprine (FLEXERIL) 10 mg tablet 1 tablet orally 3 times per day (Patient taking differently: 1 tablet orally 2 times daily prn) 90 tablet 2 Dapagliflozin Propanediol (FARXIGA PO) Take by mouth. gabapentin (NEURONTIN) 300 mg capsule take 1 capsule by mouth three times a day (Patien t taking differently: per patient takes 600mg three times daily) 90 capsule 2 glipiZIDE (GLUCOTROL) 10 MG tablet take 1 tablet by mouth twice a day 0 glucose blood test strips (TERRI CONTOUR TEST) strip Use as dir 100 each 0 lisinopril (PRINIVIL, ZESTRIL) 5 mg tablet Take 10 mg by mouth Daily. metformin (GLUCOPHAGE) 1000 MG tablet Take 1,000 mg by mouth 2 times daily (with breakf ast & dinner). methadone 10 mg tablet Take 0.5 tablets by mouth every 8 hours as needed. (Patient miquel hernandez differently: Take 18 mg by mouth every 8 hours as needed (per patient takes up to 160mg i n a twenty four period).) 45 tablet 0 omeprazole (PRILOSEC) 20 mg capsule Take 20 mg by mouth every morning (before breakfast ). ondansetron (ZOFRAN) 4 mg tablet 0 oxyCODONE (ROXICODONE) 30 MG immediate release tablet Take 1 tablet by mouth every 6 ho urs as needed for Pain. (Patient taking differently: Take 30 mg by mouth every 6 hours as ne eded for Pain (per patient takes 1-2 every 6 hours for breakthough pain prn).) 120 tablet 0 SENNA LAX 8.6 MG tablet take 4 tablets by mouth UP TO 2 TIMES A DAY NEEDED FOR CONST IPATION 0 simvastatin (ZOCOR) 40 mg tablet Take 20 mg by mouth nightly. No current facility-administered medications on file prior [...] Drug use: Types: Marijuana Sexual activity: Not on file [...] [] Speech change [] Voice change Vitals: 03/04/17 0843 BP: 121/58 Pulse: 85 Resp: 20 Temp: 37.1 C (98.7 F) PainSc: 8 Estimated body mass index is 29.82 kg/m as calculated from the following: Height as of this encounter: 1.854 m (6' 1"). Weight as of this encounter: 102.5 kg (226 lb). Physical examination:Patient is alert and oriented and in no acute distress. Inspection reveals: Skin is warm dry and intact with no gross deformity. Head: Oral pharnyx nonerythematous nonedematous no exudate noted Neck: Supple nontender without any lymphadenopathy. Heart: Regular rate and rhythm. Lungs: Clear to auscultation. Abdomen: Soft nontender no masses organomegaly. Cranial nerves 2-12 grossly intact. Musculoskeletal: His left elbow ROM lacks 25 degrees of extension and 20 degrees of flexio n as compared to the right elbow. NV function is intact to both hands. Assessment: Left elbow degenerative change with osteophytosis combined with bilateral shou lder rotator cuff tendonitis. Plan: The patient is scheduled for an open left elbow debridement and bilateral shoulder roberts bacromial space injections on 03/14/17. Therefore, the planned procedure with its risks, pos sible complications, expected prognosis, and treatment alternatives was discussed with the p juana. Risks and possible complications were listed but not limited to infection, nerve an d vessel damage, bleeding, pain, scarring, stiffness, residual symptoms remaining after surg mila, and the risk of anesthesia including . No guarantees were given or implied other than that of diligent effort. 03/04/17 Patient: Cecilio Michaelsshalini Noriega, [facility] This note was copied by office staff [...] | ECG 12 LEAD | Routin | 03/04/2017 | Preop testing | Results for this | | | e | 9:40 AM | Other specified | procedure are [...] + documented in this encounter Results Hemoglobin (03/04/2017 10:01 AM PDT) + + + + + [...] [address] | [place] | [phone] | | [facility] | | [address] | | | - LABORATORY | | | | + + + + + XR Chest PA and Lateral (03/04/2017 9:59 [...] are normal. Mediastinum is unremarkable. Central | MEDICAL CENTER | | pulmonary vasculature is normal. The [...] + | [address] | [address] | [place] | [phone] | | [facility] | | [address] | | | - IMAGING | | | | + + + + + ECG 12 lead (03/04/2017 9:40 AM PDT) + + + + + [...] + + + + | P-R | 164 | ms | [facility] | | | INTERVAL | | | | | + + + + + + | QRS | 128 | ms | [facility] | | [...] + + | P WAVE AXIS | 61 | degrees | [facility] | | + + + + + + | QRS AXIS | 17 | degrees | [facility] | | + + + + + + | T AXIS | 54 | degrees | [facility] | | + + + + + + | INTERPRETAT | Normal sinus rhythmRight | | [facility] | | | ION TEXT | bundle branch | | | | | | blockAbnormal ECGWhen | | | | | | compared with ECG of | | | | | | 05-AUG-2016 | | | | | | 10:51,Nonspecific T wave | | | | | | abnormality no longer | | | | | | evident in Inferior | | | | | | leadsConfirmed by | | | | | | YAZMIN FERNANDEZ MD ([id number]) | | | | | | on 03/05/2017 7:50:53 AM | | | | + + [...] Diagnosis | + + | Preop testing - Primary Preoperative examination, unspecified | + + | Other specified diabetes mellitus | + + | Hyperlipidemia, unspecified hyperlipidemia type | + + | SOB (shortness of breath) on exertion Shortness of breath | + + | Bilateral shoulder pain, unspecified chronicity | + + | Post-traumatic osteoarthritis of left elbow Secondary localized osteoarthrosis, upper | | arm | + + documented in this encounter
--- OUTSIDE RECORDS SUMMARY | ~2020-06-16 | XMS | Encounter Summary ---
Demographics + + + | Address | [address] | | | [place] [address] | + + + | Home Phone | | + + + | Preferred Language | Unknown | + + + | Marital Status | | + + + | Uatsdin Affiliation | Unknown | + + + [...] [place], | | | | | [place] [address] | | + + + + + Care Team Providers + +------+ + | Care Supervisor Cold Rolling Name | Role | Phone | + [...] | Physical | Diagnoses | [place], | [facility] | | | Services | Therapy / | Lateral | Marty Elise, | Oncology | | | Required | Rehabilitatio | epicondyliti | MD [address] | [address] | | | | n | s of left | [address] | [address] | | | | | elbow | [place], | [place], | | | | | [place]-tra[place] | [place] [address] | [place] [address] | | | | | ic | Phone: | Phone: | | | | | osteoarthrit | [phone] | [phone] | | | | | is of left | Fax: | Fax: | | | | | elbow | [phone] | [phone] | | | | | Procedures | | | | | | | ot eval | | | +--------+ + + + + + Encounter Details +--------+ + + + + | Date | Type | Department | Care Team | Description | +--------+ + + + + | 04/02/ | Orders Only | [facility] | Marty Wood | Lateral | | 2015 | | ORTHOPEDIC SURGERY | MD Gosia [address] | epicondylitis of | | | | [address] [place] | [place] | left elbow (Primary | | | | [place] | [address] | Dx); Post-traumatic | | | | [address] | | osteoarthritis of | | | | [phone] | | left elbow | +--------+ + [...] [facility] | Outpatient | Routin | Lateral | Ordered: 04/02/2016 | | Therapy - AMB | Referral | e | epicondylitis of | | | Referral | | | left elbow | | | | | | Post-traumatic | | | | | | osteoarthritis of | | | | | | left elbow | | + + +--------+ + + documented as of this encounter Visit Diagnoses + + | Diagnosis | + + | Lateral epicondylitis of left elbow - Primary Lateral epicondylitis of elbow | + + | Post-traumatic osteoarthritis of left elbow Secondary localized osteoarthrosis, upper | | arm | + + documented in this encounter"
--- OUTSIDE RECORDS SUMMARY | ~2020-06-16 | XMS | Encounter Summary ---
Demographics + + + | Address | [address] | | | [place] [address] | + + + | Home Phone | | + + + | Preferred Language | Unknown | + + + | Marital Status | | + + + | Roman Catholic Affiliation | Unknown | + + [...] [place], | | | | | [place] [address] | | + + + + + Care Team Providers + +------+ + | Care Senior Sql Server Database Developer Name | Role | Phone | [...] Osteomyeliti | MD [address] | | | | | s, | [address] | [place], | | | | | Rocephin,IV, | [place], | [place] [address] | | | | | or IM 2G | [place] | Phone: | | | | | daily X42 | [address] | [phone] | | | | | days | Phone: | Fax: | | | | | Procedures | [phone] | [phone] | | | | | [place] | Fax: | | | | | | CEFTRIAXONE | [phone] | | | | | | SODIUM | | | | | | | INJECTION, | | | | | | | 250 MG [place] | | | | | | | [...] | +--------+ + + + + | 12/02/ | Hospital | [facility] | Omega Cortes, | Chronic | | 2019 | Encounter | MED CTR OP INFUSION | MD [address] | osteomyelitis of toe | | | | [address] | [place] | of right foot (HCC) | | | | [place], [place] | [address] | | | | | [address] | [phone] | | | | | [phone] | | | +--------+ + + + [...] + + + | Blood Pressure | 108/58 | 12/02/2018 12:07 PM | | | | | PDT | | + + + + + | Pulse | 86 | 12/02/2018 12:07 PM | | | | | PDT | | + + + + + | Temperature | 36.7 C (98.1 F) | 12/02/2018 11:00 AM | | | | | PDT | | + + + + + | Respiratory Rate | 18 | 12/02/2018 12:07 PM | | | | | PDT | | + + + + + | Oxygen Saturation | 97% | 12/02/2018 12:07 PM | | | | | PDT [...] documented as of this encounter Progress Notes Matt Nguyen RN - 12/02/2018 12:14 PM PDTFormatting of this note might be different fro m the original. Vitals: 12/02/18 1100 12/02/18 1207 BP: 122/61 108/58 Pulse: 94 86 Resp: 18 18 Temp: 36.7 C (98.1 F) TempSrc: Oral SpO2: 100% 97% Administrations This Visit cefTRIAXone (ROCEPHIN) 2 g in sodium chloride 0.9% 50 mL IVPB Admin Date 12/02/2018 Action New Bag Dose 2 g Rate 100 mL/hr Route Intravenous Administered By Katiana J Jostin, RN Monitored throughout treatment; treatment completed without untoward effects from medicatio n noted. Next visit 12/03/18. Verbalizes understanding of plan of care. VS stable. Discharged ambulatory to home in stable condition. Electronically signed by: Matt Nguyen RN 12/02/2018 13:18 NMason, Katiana Nicole RN - 12/02/2018 11:19 AM PDT Vitals: 12/02/18 1100 BP: 122/61 Pulse: 94 Resp: 18 Temp: 36.7 C (98.1 F) Cecilio Case Sergioalbertohank received into room 443, independent ambulation accompanied by his f maria luzroel. States here for Rocephin infusion. Reports no change in condition, plan of care since last MD visit. Alert, oriented x 4, cooperative. Electronically signed by: Katiana Frankel RN 12/02/2018 11:19 documented in this enc ounter Plan of [...] 2 g in | New Bag | 12/03/19 | 2 g | 100 | | | sodium chloride 0.9% 50 mL IVPB | | 19 11:38 | | mL/hr | | | 2 g, Intravenous, Administer over | | AM PDT | | | | | 30 Minutes, ONCE, 12/02/18 at | | | | | | | 1130, For 1 dose, Keep in | | [...]
--- OUTSIDE RECORDS SUMMARY | ~2020-06-16 | XMS | Encounter Summary ---
Demographics + + + | Address | [address] | | | [place] [address] | + + + | Home Phone [...] [place], | | | | | [place] [address] | | + + + + + Care Team Providers + +------+ + | Care Community Specialist Name | Role | Phone | + +------+ + PCP | Unavailable | + +------+ + Encounter Details +--------+ + + + + | Date | Type | Department | Care Team | Description | +--------+ + + + + | 12/08/ | Orders Only | [facility] [place] | Marty Wood | | | 2014 | | ORTHOPEDIC SURGERY | MD Gosia [address] | | | | | [address] | [place] | | | | | [place] | [address] | | | | | [address] | | | | | | [phone] | | | +--------+ + + + [...]
--- OUTSIDE RECORDS SUMMARY | ~2020-06-16 | XMS | Encounter Summary ---
Demographics + + + | Address | [address] | | | [place] [address] | + + + | Home Phone [...] [place], | | | | | [place] [address] | | + + + + + Care Team Providers + +------+ + | Care Controls Project Engineer Name | Role | Phone | + +------+ + | Dimitri Fischer MD | PCP | | + +------+ + Encounter Details +--------+ + + + + | Date | Type | Department | Care Team | Description | +--------+ + + + + | 04/08/ | Abstract | [facility] [place] | Surendra Vaughn | | | 2017 | | NEPHROLOGY [address] | M, DO [address] | | | | [address] | [address] [place] | | | | | [place], [place] | [place] [address] | | | | | [address] | [phone] | | | | | [phone] | | | +--------+ + + + [...] + + documented as of this encounter Ida Knutson - 04/08/2017 3:39 PM PDTOutside record: Prior authorization request form from [employer]. Dos: 04/07/17. Sent to scan. documented in this encounter Plan of Treatment Not on filedocumented as of this encounter Visit Diagnoses Not on filedocumented in this encounter"
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
--- OUTSIDE RECORDS SUMMARY | ~2020-06-16 | XMS | Encounter Summary ---
Demographics + + + | Address | [address] | | | [place] [address] | + + + | Home Phone [...] + + + | Author | [facility] | | | and [place] | + + + | Organization | [facility] | | | [...] [place], | | | | | [place] [address] | | + + + + + Care Team Providers + +------+ + | Care Ballast Cleaning Operator Name | Role | Phone | [...] | Osteomyeliti | [address] | | | | | [address] | [address] | [place], | | | | | Rad[place] | [place], | [place] [address] | | | | | Cefepime for | [place] | Phone: | | | | | | [address] | [phone] | | | | | osteomyeliti | Phone: | Fax: | | | | | s Will get | [phone] | [phone] | | | | | 2 doses, | Fax: | | | | | | then cedric | [phone] | | | | | | will take | | | | | | | over | | | | | | | Procedures | | | | | | | [place] CEFEPIME | | | | | | | HCL FOR | | | | | | | INJECTION, | | | | | | | 500 MG [place] | | | | | | | [...] + + | 08/10/ | Hospital | [facility] | Alexander Crum, | Acute osteomyelitis | | 2018 | Encounter | MED CTR OP INFUSION | MD [address] | of toe of right foot | | | | [address] | [place] | ([facility]) | | | | [place] | [address] | | | | | [address] | [phone] | | | | | [phone] | | | +--------+ + + + [...] + + + | Blood Pressure | 136/63 | 08/10/2018 8:04 PM | | | | | PST | | + + + + + | Pulse | 117 | 08/10/2018 8:04 PM | | | | | PST | | + + + + + | Temperature | 36.8 C (98.2 F) | 08/10/2018 7:35 PM | | | | | PST | | + + + + + | Respiratory Rate | 18 | 08/10/2018 8:04 PM | | | | | PST | | + + + + + | Oxygen Saturation | 98% | 08/10/2018 8:04 PM | | | | | PST [...] 0 | 07/09/20 | | | SYR 97VA3-2/2 22G X | TESTOSTERONE TWICE A | [...] encounter Progress Notes Katiana Frankel RN - 08/10/2018 8:10 PM PST Vitals: 08/10/18193408/10/182003 BP: 131/62 136/63 Pulse: 117 117 Resp: 18 18 Temp: 36.8 C (98.2 F) TempSrc: Oral SpO2: 98% 98% Administrations This Visit cefepime (MAXIPIME) 2 [...] condition. Electronically signed by: Katiana Frankel RN 08/10/2018 20:10 Katiana Schuster RN - 1 10/10/2017 7:30 PM PST Vitals: 08/10/181934 BP: 131/62 Pulse: 117 Resp: 18 Temp: 36.8 C (98.2 F) Cecilio Arias received into room 442, independent ambulation accompanied b y his friend. States here for Cefepime infusion. Reports no change in condition, plan of car e since last MD visit. Alert, oriented x 4, cooperative. Patient called ahead elza to st ate he would be late RT transportation, Pt enc to be here at 0800 in AM, Kareem, nurse from [facility] to be in to see him to set up home infusions. Electronically signed by: Katiana Frankel RN 08/10/2018 19:38 documented in this enc ounter Miscellaneous Notes Addendum Note - Katiana Frankel RN - 08/10/2018 8:12 PM PSTEncounter addended by: Katiana Frankel RN on: 08/10/2018 20:12
Actions taken: Check Out [facility] signed by Katiana Frankel RN at 08/10/2018 8:12 PM PSTdocumented in this encounter Plan of [...] 0.9% 50 mL IVPB | | 18 7:33 | | mL/hr | | | 2 g, Intravenous, Administer over | | PM PST | | | | | 30 Minutes, ONCE, 08/10/18 | | | | | | | at 1950, For 1 dose, Twice daily | | | | | | | dosing until 08/12 when Cedric can | | | | | | | take over dosing. Activate | | | | | | | system and mix before use., | | | | | | | Indications: Osteomyelitis | | | | | | + +---------+ +------+-------+------+ +---+---+ | | | +---+---+ documented in this encounter
--- OUTSIDE RECORDS SUMMARY | ~2020-06-16 | XMS | Encounter Summary ---
Demographics + + + | Address | [address] | | | [place] [address] | + + + | Home Phone [...] [place], | | | | | [place] [address] | | + + + + + Care Team Providers + +------+ + | Care Furnace Process Supervisor Name | Role | Phone | [...] | | | | | (HCC) | [place] [address] | [place], | | | | | Kidney | Phone: | [place] [address] | | | | | function | [phone] | Phone: | | | | | test | Fax: | [phone] | | | | | abnormal | [phone] | Fax: | | | | | | | [phone] | +--------+ + + + + + Reason for Visit + +--------+ + | Reason | Onset | Comments | | | Date | | + +--------+ + | Referral Question | 03/17/ | | | | 2016 | | + +--------+ + Encounter Details +--------+ + + + + | Date | Type | Department | Care Team | Description | +--------+ + + + + | 03/17/ | Telephone | [facility] | Marty Wood | Referral Question | | 2017 | | ORTHOPEDIC SURGERY | MD Gosia [address] [facility] | | | | | [address] | [place] | | | | | [place] | [address] | | | | | [address] | | | | | | [phone] | | | +--------+ + + + [...] this encounter Miscellaneous Notes Telephone Encounter - Celeste Noriega CMA - 03/18/2017 10:08 AM PDTREFERRAL SUBMITTED ON 02/21 04/07 elephone Encounter - Renata Durbin - 03/17/2017 10:40 AM PDTDR STRO[facility] OFFICE CALLED STATING THEY NEED A R EFERRAL SENT OVER. PLEASE SUBMIT REFERRAL HIS APPOINTMENT IS IN LATE March. Electronical ly signed by Renata Durbin at 03/17/2017 10:41 AM PDTdocumented in this encounter Plan of Treatment + + +--------+ + + | Name | Type | Priori | Associated Diagnoses | Order Schedule | | | | ty | | | + + +--------+ + + | * [facility] - | Outpatient | Routin | Abnormal | Ordered: 03/17/2017 | | AMB Referral | Referral | e | laboratory test | | | | | | result Kidney | | | | | | function test | | | | | | abnormal | | + + +--------+ + + documented as of this encounter Visit Diagnoses + + | Diagnosis | + + | Abnormal laboratory test result - Primary Other abnormal clinical finding | + + | Kidney function test abnormal Nonspecific abnormal results of kidney function study | + + documented in this encounter"
--- OUTSIDE RECORDS SUMMARY | ~2020-06-16 | XMS | Encounter Summary ---
Demographics + + + | Address | [address] | | | [place] [address] | + + + | Home Phone [...] [place], | | | | | [place] [address] | | + + + + + Care Team Providers + +------+ + | Care Fur Finisher Name | Role | Phone | + +------+ + PCP | Unavailable | + +------+ + Reason for Visit + + + | Reason | Comments | + + + | Medication Refill | | + + + Encounter Details +--------+--------+ + + + | Date | Type | Department | Care Team | Description | +--------+--------+ + + + | 09/23/ | Refill | [facility] | Will Capellan, | Medication Refill | | 2015 | | [facility] [place] | [address] | | | | | [address] | [place] | | | | | [place] | [address] | | | | | [address] | | | | | | [phone] | | | +--------+--------+ + + + [...]
--- OUTSIDE RECORDS SUMMARY | ~2020-06-16 | XMS | Encounter Summary ---
Demographics + + + | Address | [address] | | | [place] [address] | + + + | Home Phone | | + + + | Preferred Language | Unknown | + + + | Marital Status | | + + + | Amish Affiliation | Unknown | + + + [...] [place], | | | | | [place] [address] | | + + + + + Care Team Providers + +------+ + | Care Sales Executive Insurance Name | Role | Phone | + +------+ + PCP | Unavailable | + +------+ + Encounter Details +--------+ + + + + | Date | Type | Department | Care Team | Description | +--------+ + + + + | 05/04/ | Hospital | [facility] | Conversion | Pain | | 2012 | Encounter | CONVERSION [address] | Transaction, | | | | | [address] | Provider Unknown | | | | | [place] | [phone] | | | | | [address] | | | | | | [phone] | | | +--------+ + + + [...] + +--------+ + + + | MRI LUMBAR SPINE WO | Routin | 04/03/2012 | | Results for this | | CONTRAST | e | 11:47 AM | | procedure are in the | | | | PDT | | results section. | + +--------+ + + + documented in this encounter Results MRI Lumbar Spine wo Contrast (04/03/2012 11:47 AM PDT) [...]
--- OUTSIDE RECORDS SUMMARY | ~2020-06-16 | XMS | Encounter Summary ---
Demographics + + + | Address | [address] | | | [place] [address] | + + + | Home Phone | | + + + | Preferred Language | Unknown | + + + | Marital Status | | + + + | Jehovah'S Witness Affiliation | Unknown | + + + | Race | White | + + + | Ethnic Group | Not or | + + + Author + + + | Author | [facility] | | | and [place] | + + + | Organization | [facility] | | | [...] [place], | | | | | [place] [address] | | + + + + + Care Team Providers + +------+ + | Care Engineer/Conductor Name | Role | Phone | + +------+ + | Dimitri Fischer MD | PCP | | + +------+ + Reason for Visit + +--------+ + | Reason | Onset | Comments | | | Date | | + +--------+ + | Medication Orders | 03/17/ | | | | 2016 | | + +--------+ + Encounter Details +--------+ + + + + | Date | Type | Department | Care Team | Description | +--------+ + + + + | 03/17/ | Telephone | [facility] | Tana Cortes W, | Medication Orders | | 2016 | | NEPHROLOGY [address] | [address] | | | | | [address] | | | | | [place], [place] | [place] [address] | | | | | [address] | [phone] | | | | | [phone] | | | +--------+ + + + [...] Telephone Encounter - Yuliana Coronado RN - 03/18/2017 11:29 AM PDTChris notified to start taking his metformin again and continue to hold lisinopril until he sees Dr. Vaughn, He ve rbalized understanding. TTelephone Encounter - Yuliana Coronado RN - 03/17/2017 8:41 AM PDTLM to start Metformin ag ain and continue to hold lisinopril. Ask for a call back to verify instructions.Electronical ly signed by Yuliana Coronado RN at 03/17/2017 8:43 AM PDTTelephone Encounter - Mita Coronado RN - 03/17/2017 8:37 AM PDT----- Message from Tana Cortes MD sent at 03/14/2017 1 6:42 PDT ----- Reviewed labs. Continue to stay off lisinopril. Ok to restart metformin. Follow-up with Dr. Vaughn. ----- Message ----- From: Lab, Background User Sent: 03/14/2017 12:55 To: Tana Cortes MD documented in this en counter Plan of Treatment Not on filedocumented as of this encounter Visit Diagnoses Not on filedocumented in this encounter"
--- OUTSIDE RECORDS SUMMARY | ~2020-06-16 | XMS | Encounter Summary ---
Demographics + + + | Address | [address] | | | [place] [address] | + + + | Home Phone [...] [place], | | | | | [place] [address] | | + + + + + Care Team Providers + +------+ + | Care Manager Export Name | Role | Phone | + +------+ + PCP | Unavailable | + +------+ + Reason for Visit + +--------+ + | Reason | Onset | Comments | | | Date | | + +--------+ + | Appointment | 04/25/ | | | | 2014 | | + +--------+ + Encounter Details +--------+ + + + + | Date | Type | Department | Care Team | Description | +--------+ + + + + | 04/25/ | Telephone | [facility] | Marty Wood | Appointment | | 2014 | | ORTHOPEDIC SURGERY | MD [place] [address] [facility] | | | | | [address] | [place] | | | | | [place] | [address] | | | | | [address] | | | | | | [phone] | | | +--------+ + + + [...] Notes Telephone Encounter - Ree Do - 05/02/2015 10:37 AM PDTLeft message for patient to call office. Unable to contact patient message being closed. elephone Encounter - Ree Do - 5 12:19 PM PDTLeft message for patient to call office. elephone Encounter - Ree Do - 04/27/2015 10:13 A M PDTLeft message for patient to call office.Electronically signed by Ree Do at 0 04/27/2015 10:14 AM PDTTelephone Encounter - Ree Do - 04/26/2015 9:45 AM PDTAtte mpted to contact patient to schedule but cell phone service was cutting in and out when biju ent answered. Need to contact patient again to schedule follow up. elephone Mitra - Ree Do - 2014 5:26 PM PDTPlease call and schedule patient for left knee MRI follow up. documented in this encounter Plan of Treatment Not on filedocumented as of this encounter Visit Diagnoses Not on filedocumented in this encounter"
--- OUTSIDE RECORDS SUMMARY | ~2020-06-16 | XMS | Encounter Summary ---
Demographics + + + | Address | [address] | | | [place] [address] | + + + | Home Phone [...] [place], | | | | | [place] [address] | | + + + + + Care Team Providers + +------+ + | Care Hair And Makeup Designer Name | Role | Phone | + +------+ + PCP | Unavailable | + +------+ + Reason for Visit + + + | Reason | Comments | + + + | ED Follow-up | | + + + | Neck Pain | | + + + Encounter Details +--------+---------+ + + + | Date | Type | Department | Care Team | Description | +--------+---------+ + + + | 06/16/ | Office | [facility] | Will Capellan, | Uncomplicated opioid | | 2015 | Visit | [facility] [place] | [address] | dependence (HCC) | | | | [address] | [facility] | (Primary Dx); Neck | | | | [place], [place] | [address] | pain | | | | [address] | | | | | | [phone] | | | +--------+---------+ + + + [...] + + + | Blood Pressure | 136/64 | 06/16/2015 11:19 AM | | | | | PDT | | + + + + + | Pulse | 100 | 06/16/2015 11:19 AM | | | | | PDT | | + + + + + | Temperature | 36.4 C (97.6 F) | 06/16/2015 11:19 AM | | | | | PDT | | + + + + + | Respiratory Rate | 20 | 06/16/2015 11:19 AM | | | | | PDT | | + + + + + | Oxygen Saturation | 95% | 06/16/2015 11:19 AM | | | | | PDT | | + + + + + | Inhaled Oxygen | - | - | | | Concentration | | | | + + + + + | Weight | 104.3 kg (230 lb) | 06/16/2015 11:19 AM | | | | | PDT | | + + + + + | Height | 182.9 cm (6' 0.01") | 06/16/2015 11:19 AM | | | | | PDT | | + + + + + | Body Mass Index | 31.18 | 06/16/2015 11:19 AM | | | | | PDT | | + + + + + documented in this encounter Progress Notes Will Capellan MD - 06/20/2015 12:31 PM PDTFormatting of this note might be different f rom the original. Subjective: Patient ID: Cecilio Arias is a 45 y.o. male. Shortness of Breath This is a new problem. The problem has been resolved. Associated symptoms include neck pain . Neck Pain This is a chronic problem. The current episode started more than 1 year ago. The problem curry s been unchanged. The pain is at a severity of 7/10. The pain is severe. Past Medical History Diagnosis Date Emphysema of lung (HCC) Osteoporosis Seizure (HCC) Diabetes mellitus (HCC) GERD (gastroesophageal reflux disease) Vitamin D deficiency Testosterone deficiency Elevated cholesterol Immune deficiency disorder (HCC) Lab results placed in chart regarding [id number] Phenotype. Patient Active Problem List Diagnosis Date Noted POA Knee pain, right 02/03/2015 Unknown Past Surgical History Procedure Laterality Date Knee arthroscopy Right 12/05/2014 Procedure: Right Knee Arthroscopy with Partial Medial Menisectomy and Medial- Femoral Cho ndroplasty; Surgeon: Marty Wood MD; Location: [facility] History reviewed. No pertinent family history. History Social History Marital Status: Single Spouse Name: N/A Number of Children: N/A Years of Education: N/A Social History Main Topics Smoking status: Current Every Day Smoker -- 0.50 packs/day Types: Cigarettes Last Attempt to Quit: 08/18/2014 Smokeless tobacco: Never Used Alcohol Use: No Drug Use: Yes Special: Marijuana Sexual Activity: None Other Topics Concern None Social History Narrative Current Outpatient Prescriptions on File Prior to Visit Medication Sig Dispense Refill B-D ULTRAFINE III SHORT PEN 31G X [...] Inject 80 Units under the skin nightly. levofloxacin (LEVAQUIN) 500 mg tablet Take 1 tablet by mouth Daily for 7 days. 7 tablet 0 lisinopril (PRINIVIL, ZESTRIL) 5 mg tablet Take 5 mg by mouth Daily. metformin (GLUCOPHAGE) 1000 MG tablet Take 1,000 mg by mouth 2 times daily (with breakf ast & dinner). omeprazole (PRILOSEC) 20 mg capsule Take 20 mg by mouth every morning (before breakfast ). simvastatin (ZOCOR) 40 mg tablet Take 20 mg by mouth nightly. testosterone cypionate (DEPO-TESTOSTERONE) 200 mg/mL injection Inject into the muscle every 14 days. No current facility-administered medications on file prior to visit. Allergies Allergen Reactions Azithromycin Anaphylaxis Codeine Hives Sulfa Antibiotics Hives Review of Systems Constitutional: Negative. HENT: Negative. Eyes: Negative. Respiratory: Positive for shortness of breath. Cardiovascular: Negative. Gastrointestinal: Negative. Genitourinary: Negative. Musculoskeletal: Positive for neck pain. Skin: Negative. Neurological: Negative. Psychiatric/Behavioral: Negative. Objective: Physical Exam Constitutional: He [...] a normal mood and affect. Assessment: 1. Uncomplicated opioid dependence (HCC) 2. Neck pain Plan: Requested Prescriptions Signed Prescriptions Disp Refills oxyCODONE (ROXICODONE) 30 MG immediate release tablet 100 tablet 0 Sig: Take 1 tablet by mouth every 6 hours as needed for Pain. albuterol (VENTOLIN HFA) 90 mcg/puff inhaler 2 each 1 Sig: Inhale 2 puffs into the lungs every 6 hours as needed. methadone 10 mg tablet 45 tablet 0 Sig: Take 0.5 tablets by mouth every 8 hours as needed. 25 minute visit > 50% counseling regarding the listed conditions, options for treatment, a nd possible risks of chronic opiates. Also found discrepency between his reported percocet and old records. Pt stated he was get ting q 6 h and old recs are q 24 prn breakthrough pain. documented in this encounter Plan of Treatment Not on filedocumented as of this encounter Visit Diagnoses + + | Diagnosis | + + | Uncomplicated opioid dependence (HCC) - Primary Opioid type dependence, unspecified | + + | Neck pain Cervicalgia | + + documented in this encounter
--- OUTSIDE RECORDS SUMMARY | ~2020-06-16 | XMS | Encounter Summary ---
Demographics + + + | Address | [address] [facility] | | | [place] [address] | + + + | Home Phone | | + + + | Preferred Language | Unknown | + + + | Marital Status | | + + + | Baptist Affiliation | Unknown | + + + | Race | White | + + + | Ethnic Group | Not or | + + + Author + + + | Author | [facility] | | | and [place] | + + + | Organization | [facility] | | [...] [place], | | | | | [place] [address] | | + + + + + Care Team Providers + +------+ + | Care Boat Joiner Helper Name | Role | Phone | [...] [facility] | | | | | Left elbow | Will D, | [address] | | | | | pain | MD [address] | [place], | | | | | Procedures | [address] | [place] | | | | | MRI Elbow | [place], | [address] | | | | | Left wo | [place] [address] | Phone: | | | | | Contrast | Phone: | [phone] | | | | | | [phone] | Fax: | | | | | | Fax: | [phone] | | | | | | [phone] | | +--------+--------+ + + + + Reason for Visit +--------+--------+ + | Reason | Onset | Comments | | | Date | | +--------+--------+ + | Other | 07/05/ | | | | 2014 | | +--------+--------+ + Encounter Details +--------+ + + + + | Date | Type | Department | Care Team | Description | +--------+ + + + + | 07/05/ | Telephone | [facility] | Will Capellan, | Other | | 2014 | | [facility] | [address] | | | | | [address] | [place] | | | | | [place] | [address] | | | | | [address] | | | | | | [phone] | | | +--------+ + + + [...] this encounter Miscellaneous Notes Telephone Encounter - Will Capellan MD - 07/07/2015 11:06 AM PDTordered elephone Encounter - Russell Hunter, Dentist - 07/05/2015 3:01 PM PDTPt called back, he called imaging and schedu led his MRI for his low back, C spine, and knee. All he needs now is an order for his left e lbow. elephone Encounter - Milo Hunter, Dentist - 07/05/2015 2:[address] to pt to notify him that his MRI of low back is ready to be scheduled. He had mentioned th at he is having elbow and knee pain that is his most significant problem right now, he state d he spoke with you at his last visit and you had told him you would order a "kind of scan" for his elbow and knee. Now is wondering if those were ordered as well? documented in this encounte r Plan of Treatment + +---------+--------+ + + | Name | Type | Priori | Associated Diagnoses | Order Schedule | | | | ty | | | + +---------+--------+ + + | MRI Elbow Left wo | Imaging | Routin | Left elbow pain | Expected: | | Contrast | | e | | 07/07/2015, Expires: | | | | | | 07/07/2016 | + +---------+--------+ + + documented as of this encounter Visit Diagnoses + + | Diagnosis | + + | Left elbow pain - Primary Pain in joint, upper arm | + + documented in this encounter
--- OUTSIDE RECORDS SUMMARY | ~2020-06-16 | XMS | Encounter Summary ---
Demographics + + + | Address | [address] | | | [place] [address] | + + + | Home Phone [...] + + + + + | Crystal Eirk | ECON | [address] | | | | | [place], | | | | | [place] [address] | | + + + + + Care Team Providers + +------+ + | Care Wild Life Manager Name | Role | Phone | [...] [facility] | | | | | Low back | Will D, | [address] | | | | | pain with | MD [address] | [place], | | | | | sciatica, | [address] | [place] | | | | | sciatica | [place], | [address] | | | | | laterality | [place] [address] | Phone: | | | | | unspecified, | Phone: | [phone] | | | | | unspecified | [phone] | Fax: | | | | | back pain | Fax: | [phone] | | | | | laterality | [phone] | | | | | | Procedures [...] [facility] | | | | | Low back | Will D, | [address] | | | | | pain with | MD [address] | [place], | | | | | sciatica, | [address] | [place] | | | | | sciatica | [place], | [address] | | | | | laterality | [place] [address] | Phone: | | | | | unspecified, | Phone: | [phone] | | | | | unspecified | [phone] | Fax: | | | | | back pain | Fax: | [phone] | | | | | laterality | [phone] | | | | | | Procedures [...] + + + + | 07/07/ | Hospital | [facility] | Will Capellan Adrien, | Low back pain with | | 2015 | Encounter | [facility] [address] | [address] | sciatica, sciatica | | | | [place], | [place], [place] | laterality | | | | [place] [address] | [address] | unspecified, | | | | [phone] | | unspecified back | | | | | | pain laterality | +--------+ + + + + [...] Routin | Low back pain with | 1 Occurrences | | Contrast | | e | sciatica, sciatica | starting 07/07/2015 | | | | | laterality | until 07/07/2015 | | | | | unspecified, | | | | | | unspecified back | | | | | | pain laterality | | + +---------+--------+ + + documented as of this encounter Visit Diagnoses + + | Diagnosis | + + | Low back pain with sciatica, sciatica laterality unspecified, unspecified back pain | | laterality | + + documented in this encounter"
--- OUTSIDE RECORDS SUMMARY | ~2020-06-16 | XMS | Encounter Summary ---
Demographics + + + | Address | [address] | | | [place] [address] | + + + | Home Phone | | + + + | Preferred Language | Unknown | + + + | Marital Status | | + + + | Buddhism Affiliation | Unknown | + + + | Race | White | + + + | Ethnic Group | Not or | + + + Author + + + | Author | [facility] | | | and [place] | + + + | Organization | [facility] | | | [...] [place], | | | | | [place] [address] | | + + + + + Care Team Providers + +------+ + | Care Final Application Reviewer Name | Role | Phone | + +------+ + PCP | Unavailable | + +------+ + Reason for Visit + + + | Reason | Comments | + + + | Pre-op Exam | left lateral epicondylar release and arthrotomy with bone | | | excision dos 11/15/15 | + + + Encounter Details +--------+---------+ + + + | Date | Type | Department | Care Team | Description | +--------+---------+ + + + | 11/09/ | Office | [facility] | Marty Wood | Pre-operative | | 2015 | Visit | ORTHOPEDIC SURGERY | MD [address]ia [address] | laboratory | | | | [address] [place] | [place] | examination (Primary | | | | [place] | [id number] | Dx); Pre-operative | | | | [address] | | clearance; Essential | | | | [phone] | | hypertension; | | | | | | Chronic obstructive | | | | | | pulmonary disease, | | | | | | unspecified COPD | | | | | | type (HCC); | | | | | | Post-traumatic | | | | | | osteoarthritis of | | | | | | left elbow; Tennis | | | | | | elbow, left | +--------+---------+ + + + Social History [...] + + + | Blood Pressure | 134/74 | 11/09/2015 8:46 AM | | | | | PST | | + + + + + | Pulse | 87 | 11/09/2015 8:46 AM | | | | | PST | | + + + + + | Temperature | 36.2 C (97.2 F) | 11/09/2015 8:46 AM | | | | | PST | | + + + + + | Respiratory Rate | 20 | 11/09/2015 8:46 AM | | | | | PST | | + + + + + | Oxygen Saturation | 95% | 11/09/2015 8:46 AM | | | | | PST | | + + + + + | Inhaled Oxygen | - | - | | | Concentration | | | | + + + + + | Weight | 108 kg (238 lb) | 11/09/2015 8:46 AM | | | | | PST | | + + + + + | Height | 182.9 cm (6') | 11/09/2015 8:46 AM | | | | | PST | | + + + + + | Body Mass Index | 32.28 | 11/09/2015 8:46 AM | | | | | PST | | + + + + + documented in this encounter Progress Notes Marty Wood MD - 11/09/2015 8:51 AM PSTFormatting of this note might be differen t from the original. History of present illness: Cecilio is a 45 y.o. male who presents to our clinic today for a preop examination. Cecilio is scheduled for a left lateral elbow epicondylar relea se and left elbow joint arthrotomy and debridement on 11/15/15. He has history of a fall 02/25 landing on his left upper extremity and right knee. He has had chronic left elbow pain since then that has failed conservative measures including cortisone injection. Examination is consistent with chronic lateral epicondylitis and x rays show degenerative disease of th e left elbow joint with hypertrophy of the olecranon process and coronoid process. He is th erefore felt to be a candidate for combined joint debridement and lateral epicondylar releas e. Past Medical History Diagnosis Date Emphysema of lung (HCC) Osteoporosis Seizure (HCC) Diabetes mellitus (HCC) GERD (gastroesophageal reflux disease) Vitamin D deficiency Testosterone deficiency Elevated cholesterol Immune deficiency disorder (HCC) Lab results placed in chart regarding [id number] Phenotype. Past Surgical History Procedure Laterality Date Knee arthroscopy Right 12/05/2014 Procedure: Right Knee Arthroscopy with Partial Medial Menisectomy and Medial- Femoral Cho ndroplasty; Surgeon: Marty Wood MD; Location: [facility] MA[facility] OR Allergies Allergen Reactions Azithromycin Anaphylaxis Codeine Hives Sulfa Antibiotics Hives Current Outpatient Prescriptions on File Prior to Visit Medication Sig Dispense Refill albuterol (VENTOLIN HFA) 90 mcg/puff inhaler Inhale 2 puffs into the lungs every 6 hour s as needed. 2 each 1 B-D ULTRAFINE III SHORT PEN 31G X 8 MM USE 1 TO 2 TIMES DAILY 100 each 0 celecoxib (CELEBREX) 200 mg capsule Take 1 capsule by mouth Daily. 60 capsule 3 cholecalciferol (VITAMIN D-3) 1,000 units capsule Take 1 capsule by mouth Daily. 90 cap ava 3 cyclobenzaprine (FLEXERIL) 10 mg tablet 1 tablet orally 3 times per day 90 tablet 2 finasteride (PROSCAR) 5 mg tablet 0 gabapentin (NEURONTIN) 300 mg capsule take 1 capsule by mouth three times a day 90 caps ule 2 glucose blood test strips (TERRI CONTOUR TEST) strip Use as dir 100 each 0 insulin glargine (LANTUS SOLOSTAR) 100 units/mL injection (pen) Inject 80 Units under t he skin nightly. 15 mL 0 lisinopril (PRINIVIL, ZESTRIL) 5 mg tablet [...] 6 ho urs as needed for Pain. 120 tablet 0 simvastatin (ZOCOR) 40 mg tablet [...] file Social History Narrative Review of Systems This has been reviewed. All other entries are negative except for those checked below. Claudia Gray Eyes: [] Double vision [] Glasses/contacts [x] Failing vision Ear/Nose/Throat: [] Frequent Colds [] Sinus Disease [] Nose obstruction [] Sneezing Spells [] Change in taste [x] Artificial teeth [] [...] Phlebitis [] Chest pain [] Ankle swelling [x] Leg cramps [] Raci ng heart [] Skipping beats [] Blood clots [...] Physical handicaps [x] Back or shoulder pain []Rheumatoid disease [] Osteoarthritis [x] Joint pain [x] Joint swelling []Gout [x] Leg cramps at night Neurological: [] Headaches [] Seizures [] Stroke/TIA [] Faintness [] Tremors [x] Numbness [] Dizziness [] Changes in handwriting [x] Memory loss [x] Shooting pains Psychiatric: [x] Depression [] Suicidal thoughts [] Sleep pattern changes [] Appetite changes [] Recent counseling [] Nervousness/anxiety [] Physical violence [] Marital problems Endocrine: [] Thyroid [x] Diabetes Systemic: []Weight loss/gain (over 10 lbs) []Fever/chills []Fatigue [] Sleeping Difficulties [] Speech change [] Voice change Filed Vitals: 11/09/15 0846 BP: 134/74 Pulse: 87 Temp: 36.2 C (97.2 F) Resp: 20 PainSc: 8 PainLoc: Elbow Estimated body mass index is 32.27 kg/(m^2) as calculated from the following: Height as of this encounter: 1.829 m (6'). Weight as of this encounter: 107.956 kg (238 lb). Physical examination:Patient is alert and oriented and in no acute distress. Inspection reveals: Skin is warm dry and intact with no gross deformity. Head: Oral pharnyx nonerythematous nonedematous no exudate noted Neck: Supple nontender without any lymphadenopathy. Heart: Regular rate and rhythm. Lungs: Clear to auscultation. Abdomen: Soft nontender no masses organomegaly. Cranial nerves 2-12 grossly intact. Musculoskeletal: The left elbow is very tender over the lateral epicondyle and the patient has pain with left wrist and finger MCP joint extension against resistance. He lacks appro ximately 15 degrees and full extension and flexion of the left elbow as compared to the righ t elbow. 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 Plan: The patient is scheduled for a left elbow lateral epicondylar release and arthrotomy with debridement on 11/15/15. Therefore, the planned procedure with its risks, possible comp lications, expected prognosis, and treatment alternatives was discussed with the patient. R isks and possible complications were listed but not limited to infection, nerve and vessel d amage, bleeding, pain, scarring, stiffness, residual symptoms remaining after surgery, and t he risk of anesthesia including . No guarantees were given or implied other than that of diligent effort. documented in th is encounter Plan of Treatment Not on filedocumented as of this encounter Results XR Chest PA and Lateral (11/09/2015 10:06 AM PST) + + | Specimen | + + | | + + + + + | Narrative | Performed At | + + + | TWO-VIEW CHEST: 11/09/2015 10:06 AM CLINICAL HISTORY: PRE-OP | [facility] | | TESTING COMPARISON: 06/13/2015 FINDINGS: Heart size is normal. | [facility] | | Aorta and pulmonary vasculature are within normal limits. No | [facility] | | mediastinal widening. Hyperinflation. No areas of abnormal lung | - IMAGING | | density. No effusion or pneumothorax. Degenerative disc changes in | | | the thoracic spine. Degenerative changes both AC joints. No acute | | | bony abnormalities. No upper abdominal abnormalities. IMPRESSION - | | | Hyperinflation suggesting emphysematous change. No acute | | | cardiopulmonary abnormality. Dictated and Signed by: Anuel | | | MD Raphael Electronically signed: 11/09/2015 11:02 AM | | + + + + + | Procedure Note | + + | Kiko, Rad Results In - 11/09/2015 11:05 AM PST TWO-VIEW CHEST: 11/09/2015 10:06 AM | | | | CLINICAL HISTORY: PRE-OP TESTING | | | | COMPARISON: 06/13/2015 | | | | FINDINGS: Heart size is normal. Aorta and pulmonary vasculature are within | | normal limits. No mediastinal widening. | | | | Hyperinflation. No areas of abnormal lung density. No effusion or pneumothorax. | | | | Degenerative disc changes in the thoracic spine. Degenerative changes both AC | | joints. No acute bony abnormalities. No upper abdominal abnormalities. | | | | IMPRESSION - Hyperinflation suggesting emphysematous change. No acute | | cardiopulmonary abnormality. | | | | Dictated and Signed by: Anuel Lim MD | | Electronically signed: 11/09/2015 11:02 AM | + + + + + + + | Performing | Address | City/State/Zipcode | Phone Number | | Organization | | | | + + + + + | [facility] | [address] | [place] | [phone] | | [facility] | | [address] | | | - IMAGING | | | | + + + + + Hemoglobin (11/09/2015 9:52 AM PST) + +-------+ + + + | Component | Value | Ref Range | Performed | Pathologist | | | | | At | Signature | + +-------+ + + + | Hemoglobin | 16.2 | 13.5 - 18.0 | [facility] | | | | | g/dL | [facility] | | | | [...] [address] | [place] | [phone] | | [facility] | | [address] | | | - LABORATORY | | | | + + + + + documented in this encounter Visit Diagnoses + + | Diagnosis | + + | Pre-operative laboratory examination - Primary Pre-procedural laboratory examination | + + | Pre-operative clearance Preoperative examination, unspecified | + + | Essential hypertension Unspecified essential hypertension | + + | Chronic obstructive pulmonary disease, unspecified COPD type (HCC) | + + | Post-traumatic osteoarthritis of left elbow Secondary localized osteoarthrosis, upper | | arm | + + | Tennis elbow, left | + + documented in this encounter"
--- OUTSIDE RECORDS SUMMARY | ~2020-06-16 | XMS | Encounter Summary ---
Demographics + + + | Address | [address] | | | [place] [address] | + + + | Home Phone [...] + + + | Author | [facility] | | | and [place] | + + + | Organization | [facility] | | [...] [place], | | | | | [place] [address] | | + + + + + Care Team Providers + +------+ + | Care Dental Office Coordinator Name | Role | Phone | + +------+ + | Dimitri Fischer MD | PCP | | + +------+ + Reason for Visit + + + | Reason | Comments | + + + | Suture Removal | | + + + | Wound Check | | + + + Encounter Details +--------+ + + + + | Date | Type | Department | Care Team | Description | +--------+ + + + + | 05/31/ | Emergency | [facility] | Tra Corley, | Encounter for post | | 2017 - | | [facility] | [address] | surgical wound check | | | | CENTER [address] | [facility] | (Primary Dx); Visit | | 06/01/ | | [place] | [place] [address] | for suture removal | | 2016 | | [address] | [phone] | | | | | [phone] | | | +--------+ + + + [...] + + | Pulse | 114 | 05/31/2017 11:40 PM | | | | | PDT | | + + + + + | Temperature | 37.3 C (99.2 F) | 05/31/2017 11:40 PM | | | | | PDT | | + + + + + | Respiratory Rate | - | - | | + + + + + | Oxygen Saturation | 98% | 05/31/2017 11:40 PM | | | | | PDT [...] + documented in this encounter Discharge Instructions Tra Hull MD - 06/01/2017Follow-up with Dr. Wood as soon as meir alfred Follow-up with primary care Polysporin to the surgical wounds 3 times a day AttachmentsThe following attachments cannot be sent through Care Everywhere.Suture/Staple R sae, No Complication (Iranian)documented in this encounter Medications at Time of [...] encounter ED Notes Tra Corley MD - 06/01/2017 12:03 AM PDTFormatting of this note might be different f rom the original. [facility] Cecilio Arias Emergency Department Encounter Note [address] [place] [id number] PCP:Dimitri Fischer MD [phone] CHIEF COMPLAINT Chief Complaint Patient presents with Suture Removal HPI Cecilio Arias is a 47 y.o. male who presents to the emergency department w ith surgical wound check and suture removal. This patient had left elbow surgery 17 days ag o. He missed his workup. Appointment to get the sutures removed. He noticed that the woun d is starting to swell. The sutures are buried. He came to the ER to have them removed and to get the wound checked. PAST MEDICAL HISTORY Past Medical History: Diagnosis Date Adverse effect of anesthesia Slow to wake up Diabetes mellitus (HCC) Elevated cholesterol Emphysema of lung (HCC) GERD (gastroesophageal reflux disease) Immune deficiency disorder (HCC) Lab results placed in chart regarding [id number] Phenotype. Osteoporosis PONV (postoperative nausea and vomiting) Seizure (HCC) Testosterone deficiency Vitamin D deficiency SURGICAL HISTORY Past Surgical History: Procedure Laterality Date CARPAL TUNNEL RELEASE Left 05/14/2017 Procedure: Left Elbow Joint Exploration and Bilateral Shoulder Injection; Surgeon: Nirmal Wood MD; Location: [facility] MAIN OR ELBOW SURGERY Left 11/15/2015 Procedure: Left Lateral Epicondylar Release & Injection of Left Elbow Joint ; Surgeon: Janet Wood MD; Location: [facility] MAIN OR KNEE ARTHROSCOPY Right 12/05/2014 Procedure: Right Knee Arthroscopy with Partial Medial Menisectomy and Medial- Femoral Tya droplasty; Surgeon: Marty Wood MD; Location: [facility] MAIN OR MANDIBLE SURGERY spinal cord injury CURRENT MEDICATIONS Discharge Medication List as of 06/01/2017 0:02 CONTINUE these medications which have NOT CHANGED Details amphetamine-dextroamphetamine (ADDERALL XR) 30 MG 24 hr capsule take 1 capsule by mouth onc e dailyR-0, Historical Med amphetamine-dextroamphetamine (ADDERALL) 15 mg tablet take 1 tablet by mouth once daily if neededR-0, Historical Med cholecalciferol (VITAMIN D-3) 1,000 units capsule Take 1 capsule by mouth Daily.Disp-90 cap ava, R-3, Normal cyclobenzaprine (FLEXERIL) 10 mg tablet 1 tablet orally 3 times per dayDisp-90 tablet, R-2, Normal dapagliflozin (FARXIGA) 10 mg tablet Take 1 tablet by mouth Daily.Disp-30 tablet, R-1, Norm al gabapentin (NEURONTIN) 300 mg capsule take 1 capsule by mouth three times a dayDisp-90 caps ule, R-2, Normal glipiZIDE (GLUCOTROL) 10 MG tablet take 1 tablet by mouth twice a dayR-0, Historical Med glucose blood test strips (TERRI CONTOUR TEST) strip Use as dirDisp-100 each, R-0, Kari l HYDROmorphone (DILAUDID) 4 MG tablet Take 1 tablet by mouth every 6 hours as needed for Narinder n.Disp-50 tablet, R-0, Print lisinopril (PRINIVIL, ZESTRIL) 5 mg tablet Take 5 mg by mouth Daily.Historical Med metformin (GLUCOPHAGE) 1000 MG tablet Take 1,000 mg by mouth 2 times daily (with breakfast & dinner).Historical MedMetformin is contraindicated in renal disease or dysfunction (serum creatinine greater than or equal to 1.5 mg/dL (males) or 1.4 mg/dL (females) or an abnormal creatinine michael nadya). Medication has a BLACK BOX Warning or Severe Contraindications. Con sult references such as B[employer]ax for further information. methadone 10 mg tablet Take 0.5 tablets by mouth every 8 hours as needed.Disp-45 tablet, R- 0, PrintMedication has a BLACK BOX Warning or Severe Contraindications. Consult references such as [facility] for further information. omeprazole (PRILOSEC) 20 mg capsule Take 20 mg by mouth every morning (before breakfast).Hi storical Med ondansetron (ZOFRAN) 4 mg tablet Take 4 mg by mouth every 8 hours as needed for Nausea.R-0, Historical Med oxyCODONE (ROXICODONE) 30 MG immediate release tablet Take 1 tablet by mouth every 6 hours as needed for Pain.Disp-120 tablet, R-0, Print SENNA LAX 8.6 MG tablet take 4 tablets by mouth UP TO 2 TIMES A DAY NEEDED FOR CONSTIPAT IONR-0, LORENZO, Historical Med simvastatin (ZOCOR) 40 mg tablet Take 20 mg by mouth nightly.Historical Med tamsulosin (FLOMAX) 0.4 mg CAPS Take 0.4 mg by mouth daily (after breakfast).R-0, Historica l Med ALLERGIES Allergies Allergen Reactions Azithromycin Anaphylaxis Codeine Hives Hydrocodone Hives Sulfa Antibiotics Hives FAMILY HISTORY No family history on file. SOCIAL HISTORY Social History Social History Marital [...] No narrative on file REVIEW OF SYSTEMS All systems reviewed and found negative except what is in the HPI PHYSICAL EXAM VITAL SIGNS: Pulse 114 | Temp 37.3 C (99.2 F) (Oral) | SpO2 98% Constitutional: Well developed, Well nourished, No acute distress, Non-toxic appearance. HENT: Normocephalic, Atraumatic Eyes: Conjunctiva normal, No discharge. Palpebral conjunctiva are pink. Neck: Normal range of motion, No tenderness, Supple, No stridor. Respiratory: Clear to auscultation bilaterally, No respiratory distress, No wheezing Cardiovascular: Tachycardic Extremities: Warm and well perfused, no edema, no joint swelling or deformity. Good ROM. In particular good range of motion of the left elbow. Skin: Warm, Dry, left elbow surgical wounds have running horizontal mattress suture with 3 -0 nylon evident. There is mild edema around the wound. No exudate. No fluctuance. No in duration. Minimal erythema at the suture sites. Neurologic: Alert & oriented x 3, No focal motor or sensory deficits. Speech is clear. G ait is normal. ED COURSE & MEDICAL DECISION MAKING Pertinent Labs & Imaging studies reviewed. (See chart for details) The patient was seen and examined shortly after arriving in the emergency department. Hist ory and physical were obtained, vital signs were noted. The sutures were removed after the skin was cleaned with Betadine. No evidence of infection. Outpatient treatment is indicate d. Follow-up with orthopedics. Follow up with primary care. FINAL IMPRESSION 1. Encounter for post surgical wound check 2. Visit for suture removal PLAN Follow-up Information Schedule an appointment as soon as possible for a visit with Marty Wood MD. Specialty: Orthopedic Surgery Contact information: [address] [facility] [address] Schedule an appointment as soon as possible for a visit with Nettie Otto MD. Specialty: Family Medicine Contact information: [address] [facility] [address] Discharge Medication List as of 06/01/2017 0:02 Tra Corley MD 06/01/17 0605 ietrich, Camilla Flower RN - 05/31/2017 11:37 PM PDTRemoval of sutures from left elbow. documented in this encounter Plan of Treatment + +------+--------+ + + | Name | Type | Priori | Associated Diagnoses | Date/Time | | | | ty | | | + +------+--------+ + + | ED INFORMATION | SHITAL | Routin | | 05/31/2017 11:30 PM | | EXCHANGE | | e | | PDT | + +------+--------+ + + documented as of this encounter Procedures + +--------+ + + + | Procedure Name | Priori | Date/Time | Associated Diagnosis | Comments | | | ty | | | | + +--------+ + + + | ED INFORMATION | Routin | 05/31/2017 | | | | EXCHANGE | e | 11:30 PM | | | | | | PDT | | | + +--------+ + + + +---+--------+ | | | | | Proced | | | ure | | | Note - | | | Gloria, | | | Lab In | | | | | | Hlseve | | | n - | | | | | | 2016 | | | 11:31 | | | PM PDT | | [...] | | | FICATI | | | ON?09/ | | | 09/201 | | | 7 | | | 23:28? | | | AVLONI | | | TIS, | | | DENIS | | | OPHER | | | S?MRN: | | | | | | [id number] | | | [id number] | | | his | | | [...] | | | ent/17 | | | [id number] | | | [id number] | | | [id number] | | | [id number] | | | [id number] | | | [id number] | | | [...] | | | int | | | Sep 9, | | | 2017 | | | Prov[facility] | | | ence | | | [facility] | [facility] [place] 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 | | | [place] | | | Urgent | | | Care | | | | | | Outpat | | | ient | | | E.D. | | | [...] MED | | | | | | 2017-0 | | | 8-20 | | | OXYCOD | | | ONE | | | HCL 30 | | | MG | | | TABLET | | | 180 | | | KAT | | | DENIS | | | ENSEN | | | 2 270 | | | 2017 | | | 8-20 | | | METHAD | | | ONE | | | HCL 10 | | | MG | | | TABLET | | | 480 | | | KAT | | | DENIS | | | ENSEN | | | 2 480 | | | 2017-0 | | | 8-20 | | | DEXTRO | | | AMP-AM | | | PHETAM | | | IN 15 | | | MG TAB | | | 30 | | | KAT | | | DENIS | | | ENSEN | | | 2 0 | | | 2017 | | | 8-20 | | | DEXTRO | | | AMP-AM | | | PHET | | | ER 30 | | | MG CAP | | | 30 | | | KAT | | | DENIS | | | ENSEN | | | 0 | | | 2017-0 | | | 8-17 | | | TESTOS | | | VAMSHI | | | CYP | | | 2,000 | | | MG/10 | | | ML 10 | | | KAT | | | DENIS | | | ENSEN | | | 3 0 | | | 2017-0 | | | 7-21 | | | DEXTRO | | | AMP-AM | | | PHET | | | ER 30 | | | MG CAP | | | 30 | | | KAT | | | DENIS | | | ENSEN | | | 0 | | | | | | 7-21 | | | OXYCOD | | | [...] 0 | | | | | | 7 | | | METHAD | | | [...] | | | 624 | | | METHAD | | | ONE | | | HCL 10 | | | MG | | | TABLET | | | 480 | | | KAT | | | DENIS | | | ENSEN | | | 2 480 | | | | | | 624 | | | OXYCOD | | | ONE | | | HCL 30 | | | MG | | | TABLET | | | 180 | | | KAT | | | DENIS | | | ENSEN | | | 2 270 | | | | | | 5- | | | METHAD | | | [...] 0 | | | | | | 5 | | | OXYCOD | | | [...] 480 | | | | | | 424 | | | DEXTRO | | | AMP-AM | | | PHETAM | | | IN 15 | | | MG TAB | | | 30 | | | KAT | | | DENIS | | | ENSEN | | | 2 0 | | | | | | 01-13 | | | OXYCOD | | | [...] | | 2 480 | | | 2017-0 | | | 3-27 | | | DEXTRO | | | AMP-AM | | | PHET | | | ER 30 | | | MG CAP | | | 30 | | | KAT | | | DENIS | | | ENSEN | | | 0 | | | 2017-0 | | | 3-27 | | | OXYCOD | | | [...] | | | sed | | | 8,620 | | | Unique | | | [...] | Diagnosis | + + | Encounter for post surgical wound check - Primary | + + | Visit for suture removal Encounter for removal of sutures | + + documented in this encounter"
--- OUTSIDE RECORDS SUMMARY | ~2020-06-16 | XMS | Encounter Summary ---
Demographics + + + | Address | [address] | | | [place] [address] | + + + | Home Phone [...] + | Author | [facility] | | | and [place] | + + + | Organization | [facility] | | [...] [place], | | | | | [place] [address] | | + + + + + Care Team Providers + +------+ + | Care Bursar Name | Role | Phone | + +------+ + | Russell Sanabria MD | PCP | | + +------+ + Encounter Details +--------+ + + + + | Date | Type | Department | Care Team | Description | +--------+ + + + + | 11/13/ | Emergency | [facility] | Pierre Clinton, | Acute osteomyelitis | | 2019 | | [facility] | [address] | of right foot ([facility]); | | | | EMERGENCY AC | [place] | Cellulitis of right | | | | [address] | [address] | foot | | | | [place] | | | | | | [address] | | | | | | [phone] | | | +--------+ + + + [...] + + + | Blood Pressure | 152/68 | 11/13/2018 5:44 PM | | | | | PST | | + + + + + | Pulse | 125 | 11/13/2018 5:44 PM | | | | | PST | | + + + + + | Temperature | 36.6 C (97.8 F) | 11/13/2018 5:44 PM | | | | | PST | | + + + + + | Respiratory Rate | 20 | 11/13/2018 5:44 PM | | | | | PST | | + + + + + | Oxygen Saturation | - | - | | + + + + + | Inhaled Oxygen | - | - | | | Concentration | | | | + + + + + | Weight | 88.1 kg (194 lb 3.7 | 11/13/2018 5:44 PM | | | | oz) | PST | | + + + + + | Height | 182.9 cm (6') | 11/13/2018 5:44 PM | | | | | PST | | + + + + + | Body Mass Index | 26.34 | 11/13/2018 5:44 PM | | | | | PST [...] documented as of this encounter ED Notes Paco Perez PA-C - 11/13/2018 6:55 PM PSTFormatting of this note might be differen t from the original. ED Provider Notes by Paco Perez PA-C at 11/13/181854 Author: Paco Perez PA-C Service: Emergency Department Author Type: Physician As sistant - Certified Filed: 11/14/18 0212 Date of Service: 11/13/181854 Status: Attested Line Manager: Paco Perez PA-C (Physician Stripper Black And White - Certified) Cosigner: Pierre chanel DO at 11/14/182227 Attestation signed by Pierre Clinton DO at 11/14/182227 Patient discussed with me by the APC. % Evaluated the patient. Perform an interview and exa mination. Discussed with the patient his most recent admission to [facility] in [place]. Reviewed the chart notes from that visit to include the patient l eaving AGAINST MEDICAL ADVICE and the discharge and provider assisting the patient with pres criptions of pain medication and antibiotics. The patient reports having a scheduled follow- up with Dr. Nash on this coming Friday. But the patient is to be admitted at our facility that [facility] will not be very attending orthopedic surgeon and we will contact the on-call orthopedic surgeon to assist us or the assistance of the on-call foot and ankle surgeon. The patient is somewhat interventional with significant psychomotor movement in the room be chelo ble to sit down to complete sentences and complete evaluation. He also appears to have some some pressured speech and difficulty focusing on the topics and hands. He also requires redi rection back to the topic's that we can completely answer the question asked. He is somewhat truncated abrupt and inpatient. Skin is without R transfer center the potential for transfe r back to [facility] for further treatment and care as it was init iated there. Based on discussion and the patient's concerns day thought it unlikely that he would desire return to that facility for further treatment and care. Due to the patient the potential for transfer back to the care facility since his initial biopsy initial therapy wa s started at that facility. He is absolutely declined being transferred back to that facilit y and we will move forward with the attempt to admit the patient to our facility. I have alex e with the patient hopes that this would be a better encounter for him and that we would con tinue to work with him with concerns mentioned regarding previous behavior. Incidentally had an understanding and agreement with the movement forward to evaluate the p atient admission. The nurse returned, CORNELL Sidhu any blood work any additional interventi ons. When I return to the room to explain to him why we were going to do the blood work and what intervention would be needed to assist him this help with his bone infection and help t o salvage his left foot and leg became very agitated. He would like me to speak with Dr. Wanda merlos regarding treatment and care. But in the process of me explained to him that Dr. Nash would no longer be his surgeon he was admitted here the patient interrupted became very agit ated saying that Dr. Nash was still going to be his orthopedic surgeon and that I had not listened to him adequately. He became very agitated and upset and unfortunately very aggress obed in his demeanor and his language. He was climbing any additional assistance from our fac ility with the understanding that he may lose his foot and his infection may get worse. He s tated his such earlier that he understands he may lose his foot may need long-term antibioti cs. But at this point time he does not desire any additional assistance from us and will see k care elsewhere. Procedures [facility] EMERGENCY DEPARTMENT IN [place] History of Present Illness Patient Identification Cecilio Arias is a 48 y.o. male. Patient information was obtained from patient and spouse/partner. History/Exam limitations: confusion. Patient presented to the Emergency Department by: Car Chief Complaint Chief Complaint Patient presents with Skin Complaint right foot, discharged yesterday Hyperglycemia- Symptomatic The patient complains of right foot and leg pain. Onset of symptoms was about 4 months, wit h a waxing and waning course since that time. He has osteomyelitis of right foot and complai ns that this is the worst his foot has hurt. He complains that the pain is burning and throb tino. The symptoms are described to be severe in severity. Care prior to arrival consisted of Clindamycin, with no relief. He reports that he was seen at [facility] where he was admitted for care. Ultrasound was negative for DVT, bone biopsy was collected and se nt for culture. Pt reports that was not treated well there and was accused of sneaking drugs into his room. He was upset and left despite needing IV antibiotic treatment. Past Medical History Diagnosis Date Cellulitis 11/13/2018 right lower leg / foot Type 2 diabetes mellitus (HCC) History reviewed. No pertinent surgical history. Prior to Admission medications Medication Sig Start Date End Date Taking? Authorizing Provider clindamycin (CLEOCIN) 300 MG capsule Take 300 mg by mouth. 11/11/18 11/25/18 Yes Historical Pr ovider cyclobenzaprine (FLEXERIL) 10 MG tablet 1 tablet orally 3 times per day 07/03/15 Yes Histo rical Provider dapagliflozin propanediol (FARXIGA) 10 MG tablet Take 10 mg by mouth. 11/11/18 Yes Historic al Provider Empagliflozin 10 MG TABS Take 10 mg by mouth. 11/11/18 Yes Historical Provider Glucose Blood (BLOOD GLUCOSE TEST STRIPS) STRP Use as dir 06/27/15 Yes Historical Provider lidocaine (LIDODERM) 5 % Place 2 patches onto the skin. 11/12/18 Yes Historical Provider lisinopril (ZESTRIL) 10 MG tablet Take 10 mg by mouth. 07/04/17 Yes Historical Provider metFORMIN (GLUCOPHAGE) 500 MG tablet Take 1,000 mg by mouth. 11/11/18 Yes Historical Provid er methadone (DOLOPHINE) 10 MG tablet Take 40 mg by mouth. 11/11/18 11/19/18 Yes Historical Prov ider pregabalin (LYRICA) 100 MG capsule Take 100 mg by mouth. 11/11/18 Yes Historical Provider trolamine salicylate (ASPERCREME) 10 % cream leg 11/11/18 Yes Historical Provider omeprazole (PRILOSEC) 20 MG capsule Take 20 mg by mouth. Historical Provider oxycodone (ROXICODONE) 30 MG immediate release tablet Take 30 mg by mouth. Historical Pr ovider vitamin D2, ergocalciferol, 25782 units capsule Take 50,000 Units by mouth. Historical P rovider Allergies Allergen Reactions Codeine Hives Erythromycin Hives Hydrocodone Hives Sulfa Antibiotics Hives Social History Social History Marital status: Unknown Spouse name: N/A Number of children: N/A Years of education: N/A Occupational History Not on file. Social History Main Topics Smoking status: Current Every Day Smoker Packs/day: 0.25 Smokeless tobacco: Never Used Alcohol use Not on file Drug use: Yes Types: Methamphetamines Sexual activity: Not on file Other Topics Concern Not on file Social History Narrative No narrative on file History reviewed. No pertinent family history. ROS Review of Systems Constitutional: Negative for: fever, chills, fatigue, sweats or weight loss Eyes: Negative for: decreased vision or irritated eyes Nose: Negative for: nosebleed Throat: Negative for: mouth sores Cardiovascular/Respiratory: Negative for: chest pain, shortness of breath, cough Gastrointestinal: Negative for: abdominal pain, vomiting, diarrhea, black or bloody stools Genitourinary: Negative for: dysuria, hematuria, urinary problems Musculoskeletal: Positive for: Right leg and foot pain Skin: Negative for: laceration or lesion Neuro and psych: Negative for: fainting, head injury, seizure, trouble walking Endocrine/Heme/Lymph: Negative for: swollen lymph nodes, easy bruising Physical Exam BP 152/68 (BP Location: Right upper arm) | Pulse 125 | Temp 97.8 F (36.6 C) | Resp 2 0 | Ht 1.829 m (6') | Wt 88.1 kg (194 lb 3.6 oz) | SpO2 99% | BMI 26.34 kg/m Pulse Oximetry interpretation: Normal General: Alert, in moderate distress with psychomotor agitation, tangential thought, pressu red speech, and ballistic behavior Eyes: Normal inspection, pupils equal and round, non-icteric ENT: Ears normal Nose normal Neck: Normal inspection Supple No lymphadenopathy No meningismus Cardiovascular: Rate and rhythm normal No murmurs Respiratory: Breath sounds normal bilaterally Abdomen: Soft, non-tender, non-distended No guarding or rebound Back: Normal inspection Extremity: Right leg and foot erythematous with moderate swelling and pain with range of mo tion, severely tender to palpation from toes to knee, Sore on right big toe, 1+ pedal pulse, Patient difficult to examine because he will not sit still. Skin: Right foot and leg warm, erythematous, and edematous throughout Neuro: No motor deficit No sensory deficit Limping gait Medical Decision Making and Emergency Department Course ED Department Course On examination patient demonstrates tangential thought, pressured speech, and ballistic beh avior. He is agitated and has a history of methamphetamine use which he admits to at this ti md. He presents with severe right foot and leg pain. He has a several month history of osteo myelitis in his right great toe and was admitted to [facility] on 10/23 01/08 for treatment. Biopsy was performed and sent for culture, and patient was started on 6 weeks of IV antibiotics. Patient reports that him and his were accused of going through sharps bins and "sneaking drugs into the hospital." He refused to stay at the hospital and chose to leave AMA. Ultrasound performed on 11/09 and ruled out DVT at that time. Patient agrees to xray, but refusing IV at this time. I consulted Dr. Clinton on this case and he agreed to see this patient. He spoke with roni mead at [facility] who informed him that patient will not be accepted back for c are. When Dr. Clinton was discussing this with the patient and that we are willing to admit him for care at [facility], he became angry and left without completion of care. I was not able to discuss risks of avoiding IV antibiotics with the patient before he left.. Xray shows probable osteomyelitis of right 1st distal phalanx. I consulted Dr. Clinton on this case, and I appreciate his help. Records Reviewed Old medical records. Nursing notes. Previous radiology studies. Labs & Radiology Results Laboratory Evaluation Results None Radiology and EKG Evaluation Imaging Results XR Foot Right AP Lateral and Oblique (Final result) Result time 11/13/18 18:47:41 Final result by Tavon Ghosh MD (11/13/18 18:47:41) Impression: Ulcer on plantar aspect of the 1st distal phalanx with probable osteomyelitis of the 1st distal phalanx. Interval increase in erosions as compared to radiographs dated 11/05/2018. Signed by: Tavon Ghosh Sign Date/Time: 11/13/2018 6:44 PM Narrative: RIGHT FOOT THREE VIEWS CLINICAL INFORMATION: Right foot pain, infection in foot. COMPARISON: MRI FOOT RIGHT WO CONTRAST (11/06/2018); XR FOOT RIGHT 3 + VW (11/05/2018); MRI FOOT RIGHT WO CONTRAST (08/07/2018); XR FOOT RIGHT 3 + VW (07/22/2018); XR FOOT RIGHT 1 VW LIMITED (06/21/2018); FINDINGS: Ulcer on plantar aspect of the 1st distal phalanx with surrounding soft tissue swelling. There is cortical irregularity and erosion of the plantar aspect of the 1st distal phalanx with adjacent hypertrophic bone formation. No acute fractures or dislocation. Soft tissue swelling of the forefoot. Mild 1st metatarsophalangeal joint osteoarthritis. Small plantar calcaneal enthesophyte. No ankle joint effusion. Diagnosis & Disposition ED Diagnoses Final diagnoses Acute osteomyelitis of right foot (HCC) Cellulitis of right foot Disposition: ED Disposition ED Disposition Condition Comment LWCS Follow-up Information Follow up With Specialties Details Why Contact Info [facility] Emergency Department in [place] [facility] [address] [facility] [address] Jose Nash MD Orthopedic Surgery Ensure you keep your outpatient follow up on Friday as previously arranged [address] [place] [id number] Discharge Medications: Discharge Medication List as of 11/13/2018 6:57 PM Paco Perez PA-C 11/14/18211 Pierre Clinton, 11/14/182227 onversion Hunt saction, Provider Unknown - 11/13/2018 6:47 PM PSTFormatting of this note might be differen t from the original. ED Notes by Ximena Luther RN at 11/13/181846 Author: Ximena Luther RN Service: (none) Author Type: Registered Nurse Filed: 11/13/181849 Date of Service: 11/13/181846 Status: Signed Line Manager: Ximena Luther RN (Registered Nurse) Patient has left the facility AMA Ximena Luther RN 11/13/181849 onver tg Transaction, Provider Unknown - 11/13/2018 6:42 PM PST ED Notes by Ximena Luther RN at 11/13/181841 Author: Ximena Luther RN Service: (none) Author Type: Registered Nurse Filed: 11/13/181848 Date of Service: 11/13/181841 Status: Signed Line Manager: Ximena Luther RN (Registered Nurse) Provider at bedside to discuss with patient about his declining care. Patient became verbal ly aggressive, and began to pack up his belongings. Ximena Luther RN 11/13/181848 onver tg Transaction, Provider Unknown - 11/13/2018 6:37 PM PST ED Notes by Ximena Luther RN at 11/13/181836 Author: Ximena Luther RN Service: (none) Author Type: Registered Nurse Filed: 11/13/181837 Date of Service: 11/13/181836 Status: Signed Line Manager: Ximena Luther RN (Registered Nurse) Patient is refusing IV, antibiotics, and blood draw until "he speaks with his surgeon" Ximena Luther RN 11/13/181837 onver tg Transaction, Provider Unknown - 11/13/2018 6:36 PM PST ED Notes by Pelon Azul RN at 11/13/181835 Author: Pelon Azul RN Service: Free Standing ED Author Type: Registered Nurse Filed: 11/13/181838 Date of Service: 11/13/181835 Status: Addendum Line Manager: Pelon Azul RN (Registered Nurse) Related Notes: Original Note by Pelon Azul RN (Registered Nurse) filed at 11/13/181837 When x-ray tech in to take foot x-ray, patient placed a knife with approx 6 inch blade on s tretcher. Security (BRANDIN Tinsley) notified, and he and this RN in ask patient to have security hold knife at security desk until he is discharged. Patient then produced a smaller pocket k nife with keys attached and willing surrendered both knives to security. Knives were then ta tonya to security desk until patient is discharged. Dr. Clinton and Paco Perez, PAC notified . Pelon Azul RN 11/13/181837 Pelon Azul RN 11/13/181838 onver tg Transaction, Provider Unknown - 11/13/2018 6:30 PM PST ED Notes by Ximena Luther RN at 11/13/181829 Author: Ximena Luther RN Service: (none) Author Type: Registered Nurse Filed: 11/13/181852 Date of Service: 02/22/19 1830 Status: Signed Line Manager: Ximena Luther RN (Registered Nurse) This RN and Rebecca Viveros Chartered Accountant at bedside to start IV, collect blood, and to start IV antib iotics. This RN discusses with patient the importance of IV antibiotics and what he are test ing for in the blood. Patient believes that we will mess up his care with his surgeon or chapito t we will be testing for drugs, and starts to become verbally aggressive with this RN. Ximena Luther RN 11/13/181852 onver tg Transaction, Provider Unknown - 11/13/2018 6:07 PM PST ED Notes by Paulette Vera at 11/13/181806 Author: Paulette Vera Service: (none) Author Type: Credit Specialist Filed: 11/13/181806 Date of Service: 11/13/181806 Status: Signed Line Manager: Paulette Vera (Credit Specialist) Records requested from "Nico senior warehouse clerk at [employer] for d/c summary from recent admission. Paulette Vera 11/13/181806 onver tg Transaction, Provider Unknown - 11/13/2018 5:59 PM PST ED Notes by Ximena Luther RN at 11/13/181758 Author: Ximena Luther RN Service: (none) Author Type: Registered Nurse Filed: 11/13/181758 Date of Service: 11/13/181758 Status: Signed Line Manager: Ximena Luther RN (Registered Nurse) Patient reports using meth twice for pain relief Ximena Luther RN 11/13/181758 onver tg Transaction, Provider Unknown - 11/13/2018 5:47 PM PST ED Notes by Jenelle Licea RN at 11/13/181746 Author: Jenelle Licea RN Service: (none) Author Type: Registered Nurse Filed: 11/13/181748 Date of Service: 11/13/181746 Status: Signed Line Manager: Jenelle Licea RN (Registered Nurse) Pt unable to hold still in triage, goes from writhing in pain to having a normal conversati on. Pt states he has been treated for infection to right lower extremity for months, had a " septic infection in his heart" states he was unable to discharge with a PICC line due to acc idental overdose on his methadone. Pt was changed to oral antibiotics upon discharge from [facility] Jenelle Licea RN 11/13/181748 docume nted in this encounter Plan of Treatment Not on filedocumented as of this encounter Procedures + +--------+ + + + | Procedure Name | Priori | Date/Time | Associated Diagnosis | Comments | | | ty | | | | + +--------+ + + + | XR FOOT RIGHT 3 + VW | Routin | 11/13/2018 | | Results for this | | | e | 6:32 PM | | procedure are in the | | | | PST | | results section. | + +--------+ + + + | POC GLUCOSE | Routin | 11/13/2018 | | Results for this | | | e | 6:06 PM | | procedure are in the | | | | PST | | results section. | + +--------+ + + + documented in this encounter Results XR Foot Right 3 + Vw (11/13/2018 6:32 PM PST) + + | Specimen | + + | | + + + + + | Impressions | Performed At | + + + | Ulcer on plantar aspect of the 1st distal phalanx with probable | | | osteomyelitis of the 1st distal phalanx. Interval increase in | | | erosions as compared to radiographs dated 11/05/2018. Signed by: | | | Tavon Ghosh Sign Date/Time: 11/13/2018 6:44 PM | | + + + + + + | Narrative | Performed At | + + + | RIGHT FOOT THREE VIEWS CLINICAL INFORMATION: Right foot pain, | | | infection in foot. COMPARISON: MRI FOOT RIGHT WO CONTRAST | | | (11/06/2018); XR FOOT RIGHT 3 + VW (11/05/2018); MRI FOOT RIGHT WO | | | CONTRAST (08/07/2018); XR FOOT RIGHT 3 + VW (07/22/2018); XR FOOT | | | RIGHT 1 VW LIMITED (06/21/2018); FINDINGS: Ulcer on plantar aspect of | | | the 1st distal phalanx with surrounding soft tissue swelling. | | | There is cortical irregularity and erosion of the plantar aspect of | | | the 1st distal phalanx with adjacent hypertrophic bone formation. | | | No acute fractures or dislocation. Soft tissue swelling of the | | | forefoot. Mild 1st metatarsophalangeal joint osteoarthritis. Small | | | plantar calcaneal enthesophyte. No ankle joint effusion. | | + + + + + | Procedure Note | + + | Kiko, Rad Conversion - 05/04/2019 7:42 PM PDT RIGHT FOOT THREE VIEWS | | CLINICAL INFORMATION: | | Right foot pain, infection in foot. | | COMPARISON: | | MRI FOOT RIGHT WO CONTRAST (11/06/2018); XR FOOT RIGHT 3 + VW | | (11/05/2018); MRI FOOT RIGHT WO CONTRAST (08/07/2018); XR FOOT RIGHT 3 + | | VW (07/22/2018); XR FOOT RIGHT 1 VW LIMITED (06/21/2018); | | FINDINGS: | | Ulcer on plantar aspect of the 1st distal phalanx with surrounding soft | | tissue swelling. There is cortical irregularity and erosion of the | | plantar aspect of the 1st distal phalanx with adjacent hypertrophic | | bone formation. No acute fractures or dislocation. Soft tissue | | swelling of the forefoot. Mild 1st metatarsophalangeal joint | | osteoarthritis. | | Small plantar calcaneal enthesophyte. No ankle joint effusion. | | IMPRESSION: | | Ulcer on plantar aspect of the 1st distal phalanx with probable | | osteomyelitis of the 1st distal phalanx. Interval increase in erosions | | as compared to radiographs dated 11/05/2018. | | Signed by: Tavon Ghosh | | Sign Date/Time: 11/13/2018 6:44 PM | + + POC Glucose (11/13/2018 6:06 PM PST) + + + + + + | Component | Value | Ref Range | Performed | Pathologist | | | | | At | Signature | + + + + + + | Glucose, | 241 (H)Comment: Testing | 65 - 99 mg/dL | EXTERNAL | | | Fingerstick | performed at [facility], [address] | [address] | | | | [address], | | | | | | [place] [address] | | | | + + + + + + + + | Specimen | + + | | + + + +---------+ + + | Performing | Address | City/State/Zipcode | Phone Number | | Organization | | | | + +---------+ + + | EXTERNAL LAB | | | | + +---------+ + + documented in this encounter Visit Diagnoses + + | Diagnosis | + + | Acute osteomyelitis of right foot (HCC) Acute osteomyelitis, ankle and foot | + + | Cellulitis of right foot Cellulitis and abscess of foot, except toes | + + documented in this encounter
--- OUTSIDE RECORDS SUMMARY | ~2020-06-16 | XMS | Encounter Summary ---
Demographics + + + | Address | [address] | | | [place] [address] | + + + | Home Phone [...] [place], | | | | | [place] [address] | | + + + + + Care Team Providers + +------+ + | Care Chemical Supervisor Name | Role | Phone | + +------+ + | Dimitri Fischer MD | PCP | | + +------+ + Encounter Details +--------+ + + + + | Date | Type | Department | Care Team | Description | +--------+ + + + + | 01/21/ | Episode | [facility] | Denia Lopez, | | | 2017 | Changes | ORTHOPEDIC SURGERY | Materials Engineering Technician | | | | | [address] | | | | | | [place] | | | | | | [address] | | | | | | [phone] | | | +--------+ + + + [...]
--- OUTSIDE RECORDS SUMMARY | ~2020-06-16 | XMS | Encounter Summary ---
Demographics + + + | Address | [address] | | | [place] [address] | + + + | Home Phone [...] + + + | Author | [facility] | | | and [place] | + + + | Organization | [facility] | | | [...] [place], | | | | | [place] [address] | | + + + + + Care Team Providers + +------+ + | Care Sales Representative Printing Paper Name | Role | Phone | + +------+ + PCP | Unavailable | + +------+ + Reason for Visit + + + | Reason | Comments | + + + | Pre-op Exam | left humeroplasty fibroma excision and bilateral shoulder | | | injection dos 08/12/16 | + + + Encounter Details +--------+---------+ + + + | Date | Type | Department | Care Team | Description | +--------+---------+ + + + | 08/05/ | Office | [facility] | Marty Wood | Post-traumatic | | 2016 | Visit | ORTHOPEDIC SURGERY | MD Gosia [address] | osteoarthritis of | | | | [address] [place] | [place] | left elbow (Primary | | | | [place] | [address] | Dx); Preop testing; | | | | [address] | | Hyperlipidemia, | | | | [phone] | | unspecified | | | | | | hyperlipidemia type; | | | | | | Chronic obstructive | | | | | | pulmonary disease, | | | | | | unspecified COPD | | | | | | type (HCC); Disorder | | | | | | of bursae of | | | | | | shoulder region, | | | | | | left; Fibroma; | | | | | | Shoulder bursitis, | | | | | | unspecified | | | | | | laterality; Lipoma | | | | | | of anterior chest | | | | | | wall | +--------+---------+ + + + Social History [...] + + + | Blood Pressure | 140/81 | 08/05/2016 9:48 AM | | | | | PST | | + + + + + | Pulse | 70 | 08/05/2016 9:48 AM | | | | | PST | | + + + + + | Temperature | 35.9 C (96.7 F) | 08/05/2016 9:48 AM | | | | | PST | | + + + + + | Respiratory Rate | 22 | 08/05/2016 9:48 AM | | | | | PST | | + + + + + | Oxygen Saturation | 98% | 08/05/2016 9:48 AM | R/A | | | | PST | | + + + + + | Inhaled Oxygen | - | - | | | Concentration | | | | + + + + + | Weight | 110.7 kg (244 lb) | 08/05/2016 9:48 AM | | | | | PST | | + + + + + | Height | 182.9 cm (6') | 08/05/2016 9:48 AM | | | | | PST | | + + + + + | Body Mass Index | 33.09 | 08/05/2016 9:48 AM | | | | | PST | | + + + + + documented in this encounter Progress Notes Marty Wood MD - 08/05/2016 10:02 AM PSTFormatting of this note might be differen t from the original. History of present illness: Cecilio is a 46 y.o. male who presents to our clinic today for a preop examination. Cecilio is scheduled for a left humeroplasty, forearm fibroma e xcision, chest lipoma excision, and bilateral shoulder injection on 08/12/16. He has histor y of a fall at a local box store and has had persisting musculoskeletal problems ever since. He has had a previous lateral epicondylar release that I performed 11/15/15 and is now ret urning for a variety of other procedures as noted above. He does have an obvious flexion co ntracture of the left elbow that is due to post traumatic degenerative change which suggests he will benefit from elbow joint debridement. Past Medical History Diagnosis Date Emphysema of lung (HCC) Osteoporosis Diabetes mellitus (HCC) GERD (gastroesophageal reflux disease) Vitamin D deficiency Testosterone deficiency Elevated cholesterol Immune deficiency disorder (HCC) Lab results placed in chart regarding QCT250 Phenotype. Seizure (HCC) Past Surgical History Procedure Laterality Date Knee arthroscopy Right 12/05/2014 Procedure: Right Knee Arthroscopy with Partial Medial Menisectomy and Medial- Femoral Cho ndroplasty; Surgeon: Marty Wood MD; Location: [facility] MAIN OR Spinal cord injury Elbow surgery Left 11/15/2015 Procedure: Left Lateral Epicondylar Release & Injection of Left Elbow Joint ; Surgeon: Hubert Wood MD; Location: [facility] MAIN OR Allergies Allergen Reactions Azithromycin Anaphylaxis Codeine Hives Hydrocodone Hives Sulfa Antibiotics Hives Current Outpatient Prescriptions on File Prior to Visit Medication Sig Dispense Refill B-D ULTRAFINE III SHORT PEN 31G X 8 MM USE 1 TO 2 TIMES DAILY 100 each 0 cholecalciferol (VITAMIN D-3) 1,000 units capsule Take 1 capsule by mouth Daily. 90 cap ava 3 cyclobenzaprine (FLEXERIL) 10 mg tablet 1 tablet orally 3 times per day (Patient taking differently: 1 tablet orally 2 times daily prn) 90 tablet 2 gabapentin (NEURONTIN) 300 mg capsule take 1 capsule by mouth three times a day (Patien t taking differently: per patient takes 600mg three times daily) 90 capsule 2 glipiZIDE (GLUCOTROL) 10 MG tablet take 1 tablet by mouth twice a day 0 glucose blood test strips (TERRI CONTOUR TEST) strip Use as dir 100 each 0 HYDROcodone-acetaminophen (NORCO) 5-325 mg per tablet Take 1 tablet by mouth EVERY 4 TO 6 HOURS NEEDED for Pain. 30 tablet 0 HYDROmorphone (DILAUDID) 4 MG tablet Take 1 tablet by mouth EVERY 6 TO 8 HOURS NEEDE D for Pain. 30 tablet 0 insulin glargine (LANTUS SOLOSTAR) 100 units/mL injection (pen) Inject 80 Units under t he skin nightly. (Patient taking differently: Inject 80 Units under the skin. Per patient ta kes 40 units in the AM and 40 units every evening) 15 mL 0 lisinopril (PRINIVIL, ZESTRIL) 5 mg tablet Take 10 mg by mouth Daily. metformin (GLUCOPHAGE) 1000 MG tablet Take 1,000 mg by mouth 2 times daily (with breakf ast & dinner). methadone 10 mg tablet Take 0.5 tablets by mouth every 8 hours as needed. (Patient miquel ng differently: Take 10 mg by mouth every 8 [...] Inject into the muscle every 14 days. Per patient takes 0.5 ml twice weekly from a multi dose vial that is 200ml to teodoro. No current facility-administered medications on file prior to visit. No family history on file. Social History Social History Marital Status: Single Spouse [...] are negative except for those checked below. Denia Lopez Eyes: [] Double vision [x] Glasses/contacts [x] Failing vision [...] up blood [] Exposure to tuberculosis Cardiovascular: [x] Heart Problems [] Hypertension [x] Heart murmur [...] [] Jaundice [ ] Hepatitis [] Diarrhea [x] Constipation [] Diverticulitis Urinary Tract: [x] Painful urination [] Kidney Stones [] Any urine leakage [x] Weak urine stream [x] Night urination [] Urine infections [] Bedwetting [] Blood in urine Skin: [] Skin rashes [] Itching/Burning [] Skin bruises easil y [] Artificial tanning [] Skin cancer [] Hair loss [] Changes in moles Musculoskeletal: [] Physical handicaps [x] Back or shoulder pain []Rheumatoid disease [] Osteoarthritis [] Joint pain [] Joint swelling []Gout [] Leg cramps at night Neurological: [] Headaches [x] Seizures [] Stroke/TIA [] Faintness [] Tremors [x] Numbness [] Dizziness [] Changes in handwriting [] Memory loss [x] Shooting pains Psychiatric: [x] Depression [] Suicidal thoughts [] Sleep pattern changes [] Appetite changes [] Recent counseling [x] Nervousness/anxiety [] Physical violence [x] Marital problems Endocrine: [] Thyroid [x] Diabetes Systemic: []Weight loss/gain (over 10 lbs) []Fever/chills []Fatigue [x] Sleeping Difficulties [] Speech change [] Voice change Filed Vitals: 08/05/16 0948 BP: 140/81 Pulse: 70 Temp: 35.9 C (96.7 F) Resp: 22 PainSc: 8 PainLoc: Back Estimated body mass index is 33.09 kg/(m^2) as calculated from the following: Height as of this encounter: 1.829 m (6'). Weight as of this encounter: 110.678 kg (244 lb). Physical examination:Patient is alert and oriented and in no acute distress. Inspection reveals: Skin is warm dry and intact with no gross deformity. Head: Oral pharnyx nonerythematous nonedematous no exudate noted. He is edentulous. Neck: Supple nontender without any lymphadenopathy. Heart: Regular rate and rhythm. Lungs: Clear to auscultation. Abdomen: Soft nontender no masses organomegaly. Cranial nerves 2-12 grossly intact. Musculoskeletal: He has a 30 degree flexion contracture of the left elbow. He has a tend er 2 cm diameter fibroma in the proximal left dorsal forearm. He has a tender lipoma over t he left anterior chest wall. Both shoulders have evidence of rotator cuff tendonitis. Assessment: Flexion contracture left elbow secondary to post traumatic degenerative change , fibroma left forearm, lipoma left anterior chest wall, and bilateral shoulder rotator cuff tendonitis. Plan: The patient is scheduled for a left humeroplasty, left forearm fibroma excision, ches t wall lipoma excision, and injection of both shoulders on 08/12/16. Therefore, the planned procedure with its risks, possible complications, expected prognosis, and treatment alterna tives was discussed with the patient. Risks and possible complications were listed but not limited to infection, nerve and vessel damage, bleeding, pain, scarring, stiffness, residual symptoms remaining after surgery, and the risk of anesthesia including . No guarantee s were given or implied other than that of diligent effort. documented in th is encounter Plan of Treatment Not on filedocumented as of this encounter Procedures + +--------+ + + + | Procedure Name | Priori | Date/Time | Associated Diagnosis | Comments | | | ty | | | | + +--------+ + + + | ECG 12 LEAD | Routin | 08/05/2016 | Preop testing | Results for this | | | e | 10:51 AM | Hyperlipidemia, | procedure are in the | | | | PST | unspecified | results section. | | | | | hyperlipidemia type | | | | | | Chronic obstructive | | | | | | pulmonary disease, | | | | | | unspecified COPD | | | | | | type (HCC) | | | | | | Post-traumatic | | | | | | osteoarthritis of | | | | | | left elbow Disorder | | | | | | of bursae of | | | | | | shoulder region, | | | | | | left Fibroma | | + +--------+ + + + documented in this encounter Results Hemoglobin (08/05/2016 11:06 AM PST) + +-------+ + + + | Component | Value | Ref Range | Performed | Pathologist | | | | | At | Signature | + +-------+ + + + | Hemoglobin | 14.8 | 13.5 - 18.0 | [facility] | [...] [address] | [place] | [phone] | | [facility] | | [address] | | | - LABORATORY | | | | + + + + + XR Chest PA and Lateral (08/05/2016 11:03 AM PST) + + | Specimen | + + | | + + + + + | Narrative | Performed At | + + + | EXAM: XR CHEST PA AND LATERAL HISTORY: PREOP TESTING | [facility] | | TECHNIQUE: Upright PA and Lateral Chest COMPARISON: 11/09/2015. | [facility] | | FINDINGS: Heart is normal size. Mediastinal and hilar | MEDICAL CENTER | | contours are within normal limits. The lungs are clear. No pleural | - IMAGING | | effusion. No pneumothorax. No acute osseous abnormality. | | | IMPRESSION - No acute cardiopulmonary abnormality. CRITICAL | | | VALUE: No. Dictated and Signed by: Jude Parra MD | | | Electronically signed: 08/05/2016 11:31 AM | | + + + + + | Procedure Note | + + | Kiko, Rad Results In - 08/05/2016 11:34 AM PST EXAM: XR CHEST PA AND LATERAL | | | | HISTORY: PREOP TESTING | | | | TECHNIQUE: Upright PA and Lateral Chest | | | | COMPARISON: 11/09/2015. | | | | FINDINGS: | | | | Heart is normal size. | | Mediastinal and hilar contours are within normal limits. | | The lungs are clear. No pleural effusion. No pneumothorax. | | No acute osseous abnormality. | | | | IMPRESSION - | | No acute cardiopulmonary abnormality. | | | | CRITICAL VALUE: No. | | | | Dictated and Signed by: Jude Parra MD | | Electronically signed: 08/05/2016 11:31 AM | + + + + + + + | Performing | Address | City/State/Zipcode | Phone Number | | Organization | | | | + + + + + | [facility] | [address] | [place] | [phone] | | [facility] | | [address] | | | - IMAGING | | | | + + + + + ECG 12 lead (08/05/2016 10:51 AM PST) + + + + + + | Component | Value | Ref Range | Performed | Pathologist | | | | | At | Signature | + + + + + + | VENTRICULAR | 73 | BPM | [facility] | | | RATE EKG | | | | | + + + + + + | ATRIAL RATE | 73 | BPM | [facility] | | + + + + + + | P-R | 164 | ms | [facility] | | | INTERVAL | | | | | + + + + + + | QRS | 126 | ms | [facility] | | | DURATION | | | | | + + + + + + | Q-T | 396 | ms | [facility] | | | INTERVAL | | | | | + + + + + + | Q-T | 436 | ms | [facility] | | | INTERVAL | | | | | | (CORRECTED) | | | | | + + + + + + | P WAVE AXIS | -11 | degrees | [facility] | | + + + + + + | QRS AXIS | 6 | degrees | [facility] | | + + + + + + | T AXIS | 21 | degrees | [facility] | | + + + + + + | INTERPRETAT | Normal sinus rhythmRight | | [facility] | | | ION TEXT | bundle branch | | | | | | blockAbnormal ECGWhen | | | | | | compared with ECG of | | | | | | 13-JUN-2015 01:44,Vent. | | | | | | rate has decreased BY | | | | | | 38 BPMNonspecific T | | | | | | wave abnormality now | | | | | | evident in Inferior | | | | | | leadsConfirmed by | | | | | | YAZMIN FERNANDEZ MD ([id number]) | | | | | | on 08/07/2016 7:01:17 AM | | | | | | | [...] + | Diagnosis | + + | Post-traumatic osteoarthritis of left elbow - Primary Secondary localized | | osteoarthrosis, upper arm | + + | Preop testing Preoperative examination, unspecified | + + | Hyperlipidemia, unspecified hyperlipidemia type | + + | Chronic obstructive pulmonary disease, unspecified COPD type (HCC) | + + | Disorder of bursae of shoulder region, left | + + | Fibroma Other benign neoplasm of connective and other soft tissue of unspecified site | + + | Shoulder bursitis, unspecified laterality | + + | Lipoma of anterior chest wall | + + documented in this encounter"
--- OUTSIDE RECORDS SUMMARY | ~2020-06-16 | XMS | Encounter Summary ---
Demographics + + + | Address | [address] | | | [place] [address] | + + + | Home Phone | | + + + | Preferred Language | Unknown | + + + | Marital Status | | + + + | Yarsanism Affiliation | Unknown | + + + [...] [place], | | | | | [place] [address] | | + + + + + Care Team Providers + +------+ + | Care Shearer Operator Name | Role | Phone | + +------+ + PCP | Unavailable | + +------+ + Encounter Details +--------+ + + + + | Date | Type | Department | Care Team | Description | +--------+ + + + + | 11/30/ | Hospital | [facility] | Marty Wood | SOB (shortness of | | 2015 | Encounter | [facility] | MD Gosia [address] | breath); Pre-op | | | | [address] [place] | [place], [place] | testing | | | | [place], [place] | [address] | | | | | [address] | | | | | | [phone] | | | +--------+ + + + [...] + + + +---------+ + + | FLUoxetine | Take 20 mg by mouth | | 0 | | | | (PROZAC) 20 mg | 3 times daily. | | | | 5 | | capsule | | | | | | + + + +---------+ + + | fluticasone | Inhale 1 puff [...] XR CHEST PA AND | Routin | 11/30/2014 | SOB (shortness of | Results for this | | LATERAL | e | 9:57 AM | breath) Pre-op | procedure are in the | | | | PDT | testing | results section. | + +--------+ + + + | ECG - EXTERNAL SCAN | | 11/30/2014 | | Results for this | | | | 12:00 AM | | procedure are in the | | | | PDT | | results section. | + +--------+ + + + documented in this encounter Results XR Chest PA and Lateral (11/30/2014 9:57 [...] + | Kiko, Rad Results In - 11/30/2014 10:07 AM PDT [...] [address] | [address] | [place], [place] | [phone] | | [facility] | | [address] | | | - IMAGING | | | | + + + + + ECG - EXTERNAL SCAN (11/30/2014 12:00 AM PDT) + + + | Narrative | Performed At | + + + | Ordered by an | | | unspecified provider. | | + + + documented in this encounter Visit Diagnoses + + | Diagnosis | + + | SOB (shortness of breath) Shortness of breath | + + | Pre-op testing Preoperative examination, unspecified | + + documented in this encounter"
--- OUTSIDE RECORDS SUMMARY | ~2020-06-16 | XMS | Encounter Summary ---
Demographics + + + | Address | [address] | | | [place] [address] | + + + | Home Phone [...] [place], | | | | | [place] [address] | | + + + + + Care Team Providers + +------+ + | Care Hand Tile Maker Name | Role | Phone | + +------+ + PCP | Unavailable | + +------+ + Reason for Visit + +--------+ + | Reason | Onset | Comments | | | Date | | + +--------+ + | Abnormal Tests | 07/19/ | | | | 2014 | | + +--------+ + Encounter Details +--------+ + + + + | Date | Type | Department | Care Team | Description | +--------+ + + + + | 07/19/ | Telephone | [facility] | Will Capellan, | Abnormal Tests | | 2014 | | [facility] [place] | [address] | | | | | [address] | [place] [facility] [place] | | | | | [place], [place] | [address] | | | | | [address] | | | | | | [phone] | | | +--------+ + + + [...] Telephone Encounter - Will Capellan MD - 07/19/2015 8:57 AM PDTerrElectronically sign ed by Will Capellan MD at 07/19/2015 8:57 AM PDTdocumented in this encounter Plan of Treatment Not on filedocumented as of this encounter Visit Diagnoses Not on filedocumented in this encounter"
--- OUTSIDE RECORDS SUMMARY | ~2020-06-16 | XMS | Encounter Summary ---
Demographics + + + | Address | [address] | | | [place] [address] | + + + | Home Phone | | + + + | Preferred Language | Unknown | + + + | Marital Status | | + + + | Presybeterian Affiliation | Unknown | + + + | Race | White | + + + | Ethnic Group | Not or | + + + Author + + + | Author | [facility] | | | and [place] | + + + | Organization | [facility] | | [...] [place], | | | | | [place] [address] | | + + + + + Care Team Providers + +------+ + | Care Compliance Project Manager Name | Role | Phone | + +------+ + PCP | Unavailable | + +------+ + Encounter Details +--------+ + + + + | Date | Type | Department | Care Team | Description | +--------+ + + + + | 11/09/ | Hospital | [facility] | Marty Wood | Pre-operative | | 2016 | Encounter | MED [facility] | MD [address] [facility] | clearance; Chronic | | | | [address] [place] | [place], [place] | obstructive | | | | [place] | [address] | pulmonary disease, | | | | [address] | | unspecified COPD | | | | [phone] | | type (HCC) | +--------+ + + + + Social [...] XR CHEST PA AND | Routin | 11/09/2015 | Pre-operative | Results for this | | LATERAL | e | 10:06 AM | clearance Chronic | procedure are in the | | | | PST | obstructive | results section. | | | | | pulmonary disease, | | | | | | unspecified COPD | | | | | | type (HCC) | | + +--------+ + + + [...] ST. | [address] | [place], [place] | [phone] | | [facility] | | [address] | | | - IMAGING | | | | + + + + + documented in this encounter Visit Diagnoses + + | Diagnosis | + + | Pre-operative clearance Preoperative examination, unspecified | + + | Chronic obstructive pulmonary disease, unspecified COPD type (HCC) | + + documented in this encounter"
--- OUTSIDE RECORDS SUMMARY | ~2020-06-16 | XMS | Encounter Summary ---
Demographics + + + | Address | [address] | | | [place] [address] | + + + | Home Phone [...] [place], | | | | | [place] [address] | | + + + + + Care Team Providers + +------+ + | Care It Investment/Portfolio Manager Name | Role | Phone | [...] + + | Closed | Specialty | Chemical | Diagnoses | Marilia, | | | | Services | Dependency | Opiate | Will D, | | | | Required | | abuse, | MD [address] | | | | | continuous | [address] | | | | | | (HCC) | [place], | | | | | | Substance | [place] [address] | | | | | | abuse ([facility]) | Phone: | | | | | | | [phone] | | | | | | | Fax: | | | | | | | [phone] | | +--------+ + + + + + Evaluate & Treat (Routine) +--------+ + + + + + | Status | Reason | Specialty | Diagnoses / | Referred By | Referred To | | | | | Procedures | Contact | Contact | +--------+ + + + + + | Closed | Specialty | | Diagnoses | Marilia, | LYNX | | | Services | | Opiate | Will Jurado, | HEALTHCARE | | | Required | | abuse, | MD [address] | | | | | continuous | [address] | [address] | | | | | (HCC) | [place], | [place], | | | | | Substance | [place] [address] | [place] [address] | | | | | abuse (HCC) | Phone: | Phone: | | | | | | [phone] | [phone] | | | | | | Fax: | Fax: | | | | | | [phone] | [phone] | +--------+ + + + + + Reason for Visit +--------+--------+ + | Reason | Onset | Comments | | | Date | | +--------+--------+ + | Other | 07/18/ | | | | 2014 | | +--------+--------+ + Encounter Details +--------+ + + + + | Date | Type | Department | Care Team | Description | +--------+ + + + + | 07/18/ | Telephone | [facility] | Will Capellan, | Other | | 2015 | | [facility] | [address] | | | | | [address] | [place] | | | | | [place] | [address] | | | | | [address] | | | | | | [phone] | | | +--------+ + + + [...] this encounter Miscellaneous Notes Telephone Encounter - Rosalee Sheehan - 07/18/2015 10:32 AM PDTPatient calling again. H e states that it's very strange that the police were there. He's never experienced anything like this. He's not upset and this is all just a misunderstanding. He would like to speak wi th Dr. Capellan. Let him know that Dr. Capellan is going to call him. He wants Dr. Capellan to kno w that he has a blood disorder and he is taking his medication. He states other doctors have been confused as well and he says he's not doing anything wrong so this is frustrating. Gloria ctronically signed by Rosalee Sheehan at 07/18/2015 10:34 AM PDTTelephone Encounter - Rosalee Luis - 07/18/2015 9:57 AM PDTChris showed up at the back office asking to speak to Dr. Capellan. He apologized for swearing on the phone to the nurse but said that he didn't say a bad word but said "coe" and she misunderstood him. He stated that he has a blood dis order in which drugs do not show up in his blood. He brought documents proving this. He said that he wants to take his pills in front of Dr. Capellan and then do a UA to show him that it doesn't show up. I asked the patient to have a seat in the hallway. elephone Encounter - Rosalee Sheehan - 9:48 AM PDT Patient called stating that he wanted to speak to Dr. Capellan directly. He stated that néstor mora here had just hung up on him. I told him that he could talk to a nursing staff but he got upset and said that he's going to just come down here. FYI elephone Encounter - Gabriela Kinsey, RN - 07/18/20 9:24 AM PDTCalled patient and gave him message from Dr. Capellan. Patient says, "This is * expletive* ridiculous. I take my medication every morning, and I took it before I came in fo r my appointment with him." Patient is adamant that his blood disorder blocks narcotics. He says that he is looking at a paper right now which states that methadone and Percocet are th e #1 drugs that are blocked with his disorder; says this paper is from [place], and he has al ready showed this to Dr. Capellan. Patient also states he is on a much lower dose of methadone and oxycodone than he was previ ously taking, and thinks that may affect the drug screen. Advised him that the amount does n ot matter, it should still show up on the tox screen. Patient started to get angry and kept asking to talk to Dr. Capellan. Told him that he can fo llow up as scheduled 08/[address] Capellan. Notified him dr is seeing patients all day today and is very busy. Patient responds, "I don't care what he's doing, I want to t alk to him." Patient started to say something else, but then I suddenly got a busy signal and lost conne ction. elephone En counter - Marilia, Will Jurado MD - 07/18/2015 9:02 AM PDTNo signs of methadone or oxycodone so on the urine drug screen so i cant prescribe these anymore. i've looked into his claimed rapid metabolism disorder and cant find any reason this tox screen should be negative when h e stated he was not out of and was taking the 2 opiates. So i will refer him to a pain speciatly clinic and he will need to look for a new primary c are provider. He will also be referred to a substance abuse treatment for marajuana and posibly other sub stances of abuse that may not show up on the drugs of abuse screen. documented in this encounter Plan of Treatment + + +--------+ + + | Name | Type | Priori | Associated Diagnoses | Order Schedule | | | | ty | | | + + +--------+ + + | Ambulatory referral | Outpatient | Routin | Opiate abuse, | Ordered: 07/18/2015 | | to Pain Clinic | Referral | e | continuous | | | | | | Substance abuse | | + + +--------+ + + | Ambulatory Referral | Outpatient | Routin | Opiate abuse, | Ordered: 07/18/2015 | | to [facility] | Referral | e | continuous | | | Depency | | | Substance abuse | | + + +--------+ + + documented as of this encounter Visit Diagnoses + + | Diagnosis | + + | Opiate abuse, continuous (HCC) - Primary Opioid abuse, continuous | + + | Substance abuse (HCC) Other, mixed, or unspecified nondependent drug abuse, | | unspecified | + + documented in this encounter
--- OUTSIDE RECORDS SUMMARY | ~2020-06-16 | XMS | Encounter Summary ---
Demographics + + + | Address | [address] | | | [place] [address] | + + + | Home Phone [...] + + + | Author | [facility] | | | and [place] | + + + | Organization | [facility] | | [...] [place], | | | | | [place] [address] | | + + + + + Care Team Providers + +------+ + | Care Movie Editor Name | Role | Phone | + +------+ + | Dimitri Fischer MD | PCP | | + +------+ + Reason for Visit + + + | Reason | Comments | + + + | Follow-up | H&P for mri | + + + Encounter Details +--------+---------+ + + + | Date | Type | Department | Care Team | Description | +--------+---------+ + + + | 08/04/ | Office | [facility] | Marty Wood | Right knee pain, | | 2017 | Visit | ORTHOPEDIC SURGERY | MD Gosia [address] | unspecified | | | | [address] | [place] | chronicity (Primary | | | | [place] | [address] | Dx) | | | | [address] | | | | | | [phone] | | | +--------+---------+ + + + [...] + + + | Blood Pressure | 130/84 | 08/04/2017 8:07 AM | | | | | PST | | + + + + + | Pulse | 110 | 08/04/2017 8:07 AM | | | | | PST | | + + + + + | Temperature | 36.9 C (98.5 F) | 08/04/2017 8:07 AM | | | | | PST | | + + + + + | Respiratory Rate | 20 | 08/04/2017 8:07 AM | | | | | PST | | + + + + + | Oxygen Saturation | 95% | 08/04/2017 8:07 AM | | | | | PST | | + + + + + | Inhaled Oxygen | - | - | | | Concentration | | | | + + + + + | Weight | 99.3 kg (219 lb) | 08/04/2017 8:07 AM | | | | | PST | | + + + + + | Height | 182.9 cm (6') | 08/04/2017 8:07 AM | | | | | PST | | + + + + + | Body Mass Index | 29.7 | 08/04/2017 8:07 AM | | | | | PST | | + + + + + documented in this encounter H&P Notes Marty Wood MD - 08/04/2017 8:00 AM PSTFormatting of this note might be differen t from the original. History of present illness: Cecilio is a 47 y.o. male who presents to our clinic today for a preop examination. Cecilio is scheduled for a right knee MRI scan on right knee No 17. He has history of undergoing a right knee arthroscopy in 2014 which initially di d well. However he fell at the [employer] and reinjured his right knee and has had continue d pain since then. He has not improved with conservative management and therefore is an octavia ropriate candidate for further evaluation with an MRI scan to help direct future care. He h as severe claustrophobia and will require a general anesthetic for the MRI scan sedation. Past Medical History: Diagnosis Date Adverse effect of anesthesia Slow to wake up Diabetes mellitus (HCC) Elevated cholesterol Emphysema of lung (HCC) GERD (gastroesophageal reflux disease) Immune deficiency disorder (HCC) Lab results placed in chart regarding [id number] Phenotype. Osteoporosis PONV (postoperative nausea and vomiting) Seizure (HCC) Testosterone deficiency Vitamin D deficiency Past Surgical History: Procedure Laterality Date CARPAL TUNNEL RELEASE Left 05/14/2017 Procedure: Left Elbow Joint Exploration and Bilateral Shoulder Injection; Surgeon: Nirmal Wood MD; Location: [facility] MAIN OR ELBOW SURGERY Left 11/15/2015 Procedure: Left Lateral Epicondylar Release & Injection of Left Elbow Joint ; Surgeon: Janet Wood MD; Location: [facility] MAIN OR KNEE ARTHROSCOPY Right 12/05/2014 Procedure: Right Knee Arthroscopy with Partial Medial Menisectomy and Medial- Femoral Tay droplasty; Surgeon: Marty Wood MD; Location: [facility] MAIN OR MANDIBLE SURGERY spinal cord injury Allergies Allergen Reactions Azithromycin Anaphylaxis Codeine Hives Hydrocodone Hives Sulfa Antibiotics Hives Current Outpatient Prescriptions on File Prior to Visit Medication Sig Dispense Refill amphetamine-dextroamphetamine (ADDERALL XR) 30 MG 24 hr capsule take 1 capsule by mouth once daily 0 amphetamine-dextroamphetamine (ADDERALL) 15 mg tablet take 1 tablet by mouth once daily if needed 0 B-D 3CC LUER-ANDREAS SYR 55UH5-8/2 22G X 1-1/2" 3 ML MISC use to INJECT TESTOSTERONE TWICE A WEEK 0 cholecalciferol (VITAMIN D-3) 1,000 units capsule [...] strip Use as dir 100 each 0 HYDROmorphone (DILAUDID) 4 MG tablet Take 1 tablet by mouth every 6 hours as needed for Pain. 50 tablet 0 lisinopril (PRINIVIL, ZESTRIL) 10 [...] [] Speech change [] Voice change Vitals: 08/04/17 0807 BP: 130/84 Pulse: 110 Resp: 20 Temp: 36.9 C (98.5 F) Estimated body mass index is 29.7 kg/m as calculated from the following: Height as of this encounter: 1.829 m (6'). Weight as of this encounter: 99.3 kg (219 lb). Physical examination:Patient is alert and oriented and in no acute distress. Inspection reveals: Skin is warm dry and intact with no gross deformity. Head: Oral pharnyx nonerythematous nonedematous no exudate noted Neck: Supple nontender without any lymphadenopathy. Heart: Regular rate and rhythm. Lungs: Clear to auscultation. Abdomen: Soft nontender no masses organomegaly. Cranial nerves 2-12 grossly intact. Musculoskeletal: The right knee has well-healed, minimally visible arthroscopic portal site s. The right knee is quite tender over the medial joint line. Assessment: Internal derangement right knee. Plan: The patient is scheduled for a right knee MRI scan on 08/08/17. Therefore, t he planned procedure with its risks, possible complications, expected prognosis, and treatme nt alternatives was discussed with the patient. Risks and possible complications were liste d but not limited to infection, nerve and vessel damage, bleeding, pain, scarring, stiffness , residual symptoms remaining after surgery, and the [...]
--- OUTSIDE RECORDS SUMMARY | ~2020-06-16 | XMS | Encounter Summary ---
Demographics + + + | Address | [address] | | | [place] [address] | + + + | Home Phone [...] [place], | | | | | [place] [address] | | + + + + + Care Team Providers + +------+ + | Care Automatic Typewriter Inspector Name | Role | Phone | + +------+ + PCP | Unavailable | + +------+ + Encounter Details +--------+ + + + + | Date | Type | Department | Care Team | Description | +--------+ + + + + | 03/17/ | Documentati | [facility] | Antonio Lantiuga, | | | 2014 | on | [facility] | SENIOR ACCOUNTING MANAGER [address] | | | | | [address] [place] | [place], [place] | | | | | [place] [address] | [address] | | | | | [phone] | | | +--------+ + + + [...] documented as of this encounter Progress Notes Antonio Lantigua, SENIOR ACCOUNTING MANAGER - 03/17/2015 10:51 AM [facility] [address] [place] [address] Cancellation/No Show Date: 03/17/2015 Patient Information Patient Name: Cecilio Arias Date of : 1970 Age: 44 y.o. Reason for missed visit: Pt had a fall, injuring his knee, will be following up with his do ctor. Phone call placed: no Plan: Will see at next visit, will modify plan if new orders recieved Electronically signed by: Antonio Lantigua PTA, 03/17/2015 10:51 Patient Name: Cecilio Arias/: 1970/ documented in this en counter Plan of Treatment Not on filedocumented as of this encounter Visit Diagnoses + + | Diagnosis | + + | Knee pain, right - Primary Pain in joint, lower leg | + + documented in this encounter"
--- OUTSIDE RECORDS SUMMARY | ~2020-06-16 | XMS | Encounter Summary ---
Demographics + + + | Address | [address] | | | [place] [address] | + + + | Home Phone [...] [place], | | | | | [place] [address] | | + + + + + Care Team Providers + +------+ + | Care Binder And Wrapper Packer Name | Role | Phone | + +------+ + PCP | Unavailable | + +------+ + Reason for Visit + + + | Reason | Comments | + + + | Medication | | | Management | | + + + | Chronic Pain | | + + + | Immunizations | Pneumovax | + + + Encounter Details +--------+---------+ + + + | Date | Type | Department | Care Team | Description | +--------+---------+ + + + | 07/14/ | Office | [facility] | Will Capellan, | Chronic pain | | 2015 | Visit | [facility] | [address] | (Primary Dx); Need | | | | [address] | [place] | for 23-polyvalent | | | | [place] | [address] | pneumococcal | | | | [address] | | polysaccharide | | | | [phone] | | vaccine | +--------+---------+ + + + Social History [...] + + + | Blood Pressure | 116/60 | 07/14/2015 11:13 AM | | | | | PDT | | + + + + + | Pulse | 84 | 07/14/2015 11:13 AM | | | | | PDT | | + + + + + | Temperature | 36.6 C (97.9 F) | 07/14/2015 11:13 AM | | | | | PDT | | + + + + + | Respiratory Rate | 16 | 07/14/2015 11:13 AM | | | | | PDT | | + + + + + | Oxygen Saturation | 95% | 07/14/2015 11:13 AM | | | | | PDT | | + + + + + | Inhaled Oxygen | - | - | | | Concentration | | | | + + + + + | Weight | 115.2 kg (254 lb) | 07/14/2015 11:13 AM | | | | | PDT | | + + + + + | Height | 182.9 cm (6' 0.01") | 07/14/2015 11:13 AM | | | | | PDT | | + + + + + | Body Mass Index | 34.44 | 07/14/2015 11:13 AM | | | | | PDT | | + + + + + documented in this encounter Progress Notes Will Capellan MD - 07/17/2015 2:48 PM PDTFormatting of this note might be different f rom the original. Subjective: Patient ID: Cecilio Arias is a 45 y.o. male. Arm Pain The incident occurred more than 1 week ago. The pain is at a severity of 5/10. The pain is moderate. The pain has been worsening since the incident. Past Medical History Diagnosis Date Emphysema of lung (HCC) Osteoporosis Seizure (HCC) Diabetes mellitus (HCC) GERD (gastroesophageal reflux disease) Vitamin D deficiency Testosterone deficiency Elevated cholesterol Immune deficiency disorder (HCC) Lab results placed in chart regarding [id number] Phenotype. Patient Active Problem List Diagnosis Date Noted POA Opiate dependence 06/20/2015 Unknown Knee pain, right 02/03/2015 Unknown Past Surgical History Procedure Laterality Date Knee arthroscopy Right 12/05/2014 Procedure: Right Knee Arthroscopy with Partial Medial Menisectomy and Medial- Femoral Cho ndroplasty; Surgeon: Marty Wood MD; Location: [facility] MAIN OR History reviewed. No pertinent [...] capsule by mouth Daily. 60 capsule 3 cyclobenzaprine (FLEXERIL) 10 mg tablet 1 tablet orally 3 times per day 90 tablet 2 gabapentin (NEURONTIN) 300 mg capsule take 1 capsule by mouth three times a day 90 caps ule 2 glucose blood test strips (TERRI CONTOUR TEST) strip Use as dir 100 each 0 insulin pen needle (B-D ULTRAFINE III SHORT [...] Negative. Eyes: Negative. Respiratory: Negative. Cardiovascular: Negative. Gastrointestinal: Negative. Genitourinary: Negative. Musculoskeletal: Negative. Skin: Negative. Neurological: Negative. Psychiatric/Behavioral: Negative. Objective: [...] a normal mood and affect. Assessment: 1. Chronic pain Drugs of Abuse, Screen, Urine 2. Need for 23-polyvalent pneumococcal polysaccharide vaccine Pneumococcal polysaccharide vaccine 23-valent greater than or equal to 2yo subcutaneous/IM Drugs of Abuse, Screen, Urine Plan: Orders Placed This Encounter Procedures Pneumococcal polysaccharide vaccine 23-valent greater than or equal to 2yo subcutaneous /IM Drugs of Abuse, Screen, Urine Standing Status: Future Number of Occurrences: 1 Standing Expiration Date: 07/14/2016 Requested Prescriptions Signed Prescriptions Disp Refills insulin glargine (LANTUS SOLOSTAR) 100 units/mL injection (pen) 15 mL 0 Sig: Inject 80 Units under the skin nightly. cholecalciferol (VITAMIN D-3) 1,000 units capsule 90 capsule 3 Sig: Take 1 capsule by mouth Daily. methadone 10 mg tablet 45 tablet 0 Sig: Take 0.5 tablets by mouth every 8 hours as needed. oxyCODONE (ROXICODONE) 30 MG immediate release tablet 120 tablet 0 Sig: Take 1 tablet by mouth every 6 hours as needed for Pain. 25 minute visit > 50% counseling regarding the listed conditions, options for treatment, a nd possible risks. Discussed problems and concerns with chronic opiate use. documented in this encounter Plan of Treatment [...] + + | [facility]. | [address] | [place] | [phone] | | [facility] | | [address] | | | - LABORATORY | | | | + + + + + documented in this encounter Visit Diagnoses + + | Diagnosis | + + | Chronic pain - Primary Other chronic pain | + + | Need for 23-polyvalent pneumococcal polysaccharide vaccine | + + documented in this encounter
--- OUTSIDE RECORDS SUMMARY | ~2020-06-16 | XMS | Encounter Summary ---
Demographics + + + | Address | [address] | | | [place] [address] | + + + | Home Phone [...] [place], | | | | | [place] [address] | | + + + + + Care Team Providers + +------+ + | Care Geothermal Installer Name | Role | Phone | + +------+ + | Dimitri Fischer MD | PCP | | + +------+ + Reason for Visit +--------+--------+ + | Reason | Onset | Comments | | | Date | | +--------+--------+ + | Other | 05/30/ | Post Op Concerns/Suture Removal | | | 2016 | | +--------+--------+ + Encounter Details +--------+ + + + + | Date | Type | Department | Care Team | Description | +--------+ + + + + | 05/30/ | Telephone | [facility] | Anjel Kang, | Other (Post Op | | 2016 | | ORTHOPEDIC SURGERY | MD Leandra CORONA | Concerns/Suture | | | | [address] | [place] | Removal ) | | | | [place] | [id number] | | | | | [address] | | | | | | [phone] | | | +--------+ + + + [...] Encounter - Sue Moreland Cert MA - 05/30/2017 9:10 AM Fernando 's significant other called and states that he missed his appointment yesterday and so they would like to come in today to have his arm looked at. She states he needs his sutures taken out. I explained to her that unfortunately we do not have any providers available to get or ders to do this so she will have to take him to the to have the arm evaluates and possibl y have sutures removed if the doctor there thinks its appropriate. I told her that they will also need to schedule another post op appointment with . I offered her to trans grace her up to schedule that. She states that she will call back. documented in this encounter Plan of Treatment Not on filedocumented as of this encounter Visit Diagnoses Not on filedocumented in this encounter"
--- OUTSIDE RECORDS SUMMARY | ~2020-06-16 | XMS | Encounter Summary ---
Demographics + + + | Address | [address] | | | [place] [address] | + + + | Home Phone | | + + + | Preferred Language | Unknown | + + + | Marital Status | | + + + | Restorationism Affiliation | Unknown | + + + [...] [place], | | | | | [place] [address] | | + + + + + Care Team Providers + +------+ + | Care Floating Labor Gang Supervisor Name | Role | Phone | [...] pain | Will D, | [address] | | | | | Arm weakness | MD [address] | [place], | | | | | Procedures | [address] | [place] | | | | | MRI | [place], | [address] | | | | | Cervical | [place] [address] | Phone: | | | | | Spine w wo | Phone: | [phone] | | | | | Contrast | [phone] | Fax: | | | | | | Fax: | [phone] | | | | | | [phone] | | +--------+--------+ + + + + Reason for Visit + +--------+ + | Reason | Onset | Comments | | | Date | | + +--------+ + | Elbow Injury | 06/23/ | | | | 2014 | | + +--------+ + Encounter Details +--------+ + + + + | Date | Type | Department | Care Team | Description | +--------+ + + + + | 06/23/ | Telephone | [facility] | Will Capellan, | Elbow Injury | | 2014 | | MEDICINE [place] | [address] | | | | | [address] | [place] | | | | | [place] | [address] | | | | | [address] | | | | | | [phone] | | | +--------+ + + + [...] Miscellaneous Notes Telephone Encounter - Rosalee Sheehan 06/26/2015 1:16 PM PDTScheduled. elephone Encounter - Randall Capellan MD - 06/26/2015 8:32 AM PDTHe needs to follow up some time this week/. elephone Encounter - Camila Sheehan - 06/23/2015 2:28 PM PDTMRI is approved. Let Sri manrique know. However she stated she had already called the imaging department and the referral should be of the patie nts arm and elbow and it's currently for his cervical spine. Imaging told the patients quentin cox that they cannot schedule it if it's incorrect. Please advise. elephone Encounter - Rosalee Sheehan - 2014 11:57 AM PDTSpoke with patients hilaria. Let her know the MRI is not authorized yet but it has been ordered. She asks that it be authorized as quickly as possible. Sent urgent inModti sket message to Gabriella regarding patient's referral. elephone Encounter - Will Capellan MD - 06/23/2015 11:00 AM PDTMri ordered. elephone Encounter - Emily Garza RN - 06/23/20 8:12 AM PDTPhone call from patient. States that his elbow is very painful He does not want pain medication States that the muscles in his arm are bulging States that he cannot straighten his arm States that he was seen by Dr. Capellan already He wants an MRI States that his arm is very swollen He thinks that Dr. Capellan would be very surprised if he saw how it looked Offered him an appointment this afternoon States that he does not want to be seen because all he wants is an MRI He can be reached at [phone] signed by Emily Garza RN at 06/23/2015 8:19 AM PDTdocumented in this encounter Plan of Treatment + +---------+--------+ + + | Name | Type | Priori | Associated Diagnoses | Order Schedule | | | | ty | | | + +---------+--------+ + + | MRI Cervical Spine w | Imaging | Routin | Neck pain Arm | Expected: | | wo Contrast | | e | weakness | 06/23/2015, Expires: | | | | | | 06/23/2016 | + +---------+--------+ + + documented as of this encounter Visit Diagnoses + + | Diagnosis | + + | Neck pain - Primary Cervicalgia | + + | Arm weakness Other musculoskeletal symptoms referable to limbs | + + documented in this encounter"
--- OUTSIDE RECORDS SUMMARY | ~2020-06-16 | XMS | Encounter Summary ---
Demographics + + + | Address | [address] | | | [place] [address] | + + + | Home Phone [...] [place], | | | | | [place] [address] | | + + + + + Care Team Providers + +------+ + | Care Imaging Engineer Name | Role | Phone | + +------+ + | Russell Sanabria MD | PCP | | + +------+ + Reason for Visit + + + | Reason | Comments | + + + | Overdose | | | (Accidental) | | + + + | Foot Pain | | + + + Auth/Cert +--------+--------+ + + + + | Status | Reason | Specialty | Diagnoses / | Referred By | Referred To | | | | | Procedures | Contact | Contact | +--------+--------+ + + + + | | | | Diagnoses | | | | | | | Diabetes | | | | | | | mellitus | | | | | | | type II, non | | | | | | | insulin | | | | | | | dependent | | | | | | | ([facility]) | | | | | | | Uncomplicate | | | | | | | d opioid | | | | | | | dependence | | | | | | | ([facility]) | | | | | | | Chronic | | | | | | | osteomyeliti | | | | | | | s of toe of | | | | | | | right foot | | | | | | | ([facility]) | | | | | | | Opiate | | | | | | | overdose, | | | | | | | accidental | | | | | | | or | | | | | | | unintentiona | | | | | | | l, initial | | | | | | | encounter | | | | | | | ([facility]) | | | | | | | Subacute | | | | | | | osteomyeliti | | | | | | | s of right | | | | | | | foot ([facility]) | | | | | | | | | | +--------+--------+ + + + + Encounter Details +--------+ + + + + | Date | Type | Department | Care Team | Description | +--------+ + + + + | 11/25/ | Hospital | [facility] | Trino Camacho, | Opiate overdose, | | 2019 - | Encounter | [facility] | [address] | accidental or | | | | [address] [place] | [place], [place] | unintentional, | | 11/28/ | | [place] [address] | [id number] | initial encounter | | 2019 | | [phone] | | ([facility]) (Primary Dx); | | | | | Mamta Pierre MD | Subacute | | | | | [address] | osteomyelitis of | | | | | [place], [place] | right foot ([facility]); | | | | | [id number] | Chronic | | | | | | osteomyelitis of toe | | | | | | of right foot | | | | | | ([facility]); Diabetes | | | | | | mellitus type II, | | | | | | non insulin | | | | | | dependent (HCC); | | | | | | Uncomplicated opioid | | | | | | dependence (HCC); | | | | | | Insulin dependent | | | | | | diabetes mellitus | | | | | | (HCC); Mixed, or | | | | | | nondependent drug | | | | | | abuse; Smoker | +--------+ + + + + Social [...] + + + | Blood Pressure | 136/67 | 11/28/2018 7:00 AM | | | | | PST | | + + + + + | Pulse | 84 | 11/28/2018 7:00 AM | | | | | PST | | + + + + + | Temperature | 36.2 C (97.2 F) | 11/28/2018 7:00 AM | | | | | PST | | + + + + + | Respiratory Rate | 16 | 11/28/2018 7:00 AM | | | | | PST | | + + + + + | Oxygen Saturation | 98% | 11/28/2018 7:00 AM | | | | | PST | | + + + + + | Inhaled Oxygen | - | - | | | Concentration | | | | + + + + + | Weight | 96 kg (211 lb 10.3 | 11/28/2018 5:14 AM | | | | oz) | PST | | + + + + + | Height | 182.9 cm (6') | 11/25/2018 10:32 PM | | | | | PST | | + + + + + | Body Mass Index | 28.7 | 11/25/2018 10:32 PM | | | | | PST [...] + documented as of this encounter Discharge Summaries Omega Cortes MD - 11/28/2018 6:08 PM PSTFormatting of this note might be different f rom the original. DISCHARGE SUMMARY Patient Name: Cecilio Arias : 1970 Date of Admission: 11/25/2018 Date of Discharge: 11/28/18 Admitting Physician: Mamta Pierre MD Discharging Physician: Omega Cortes MD Primary Care Provider: Russell Sanabria MD Discharge Diagnoses: Principal Problem: Chronic osteomyelitis of toe of right foot Active Problems: Hypomagnesemia Smoker - Daily Opiate dependence Insulin dependent diabetes mellitus Resolved Problems: * No resolved hospital problems. [...] Obesity Hyperlipidemia Mixed, or nondependent drug abuse Insulin dependent diabetes mellitus Severe sepsis Osteomyelitis of ankle or foot, acute, right PICC (peripherally inserted central catheter) in place Opioid overdose, accidental or unintentional, initial encounter CAYLA (acute kidney injury) Displacement of peripherally inserted central venous catheter (PICC) Cellulitis of left leg GERD (gastroesophageal reflux disease) Elevated hemoglobin A1c Chronic renal insufficiency, stage 2 (mild) Smoker - Daily Marijuana use Chronic osteomyelitis of toe of right foot Hypomagnesemia Consultants: Discussed with Dr. Nash Procedures: IV antibiotics No results found. Labs in the last 24 hours: Recent Results (from the past 24 hour(s)) POC Glucose Result Value Ref Range Glucose, POC 353 (H) 70 - 109 mg/dL POC Glucose Result Value Ref Range Glucose, POC 439 (H) 70 - 109 mg/dL Basic Metabolic Panel Result Value Ref Range Na 133 (L) 136 - 145 mmol/L K 4.4 3.4 - 5.1 mmol/L Cl 94 (L) 98 - 107 mmol/L CO2 33 (H) 20 - 31 mmol/L Anion Gap 6 3 - 16 mmol/L Glucose 444 (H) 60 - 106 mg/dL BUN 24 (H) 9 - 23 mg/dL Creatinine 1.23 0.70 - 1.30 mg/dL eGFR if not >60 >=60 mL/min/1.73m2 Ca 9.7 8.7 - 10.4 mg/dL BUN/Creatinine Ratio 19.5 CBC with Differential Result Value Ref Range WBC 7.1 4.0 - 11.0 K/uL RBC 3.91 (L) 4.30 - 5.70 M/uL Hemoglobin 11.3 (L) 13.5 - 18.0 g/dL Hematocrit 34.9 (L) 40.0 - 51.0 % MCV 89.3 83.0 - 101.0 fL MCH 28.9 28.0 - 35.0 pg MCHC 32.4 32.0 - 36.0 g/dL RDW-CV 13.7 <15.0 % RDW-SD 44.9 35.1 - 46.3 fL Platelet Count 334 140 - 440 K/uL MPV 11.2 6.5 - 12.4 fL % Neutrophils 48.1 45.0 - 82.0 % % Lymphocytes 34.6 20.0 - 45.0 % % Monocytes 10.4 4.0 - 12.0 % % Eosinophils 4.4 0.0 - 5.0 % % Basophils 0.8 0.0 - 1.0 % % Immature Granulocytes 1.7 (H) 0.0 - 0.4 % Absolute Neutrophils 3.42 1.80 - 8.50 K/uL Absolute Lymphocytes 2.46 0.60 - 3.20 K/uL Absolute Monocytes 0.74 0.00 - 1.00 K/uL Absolute Eosinophils 0.31 0.00 - 0.40 K/uL Absolute Basophils 0.06 0.00 - 0.10 K/uL Absolute Immature Granulocytes 0.12 (H) 0.00 - 0.03 K/uL % nRBC 0 0 - 2 per 100 WBC's Absolute nRBC 0.00 0.00 - 0.01 K/uL POC Glucose Result Value Ref Range Glucose, POC 221 (H) 70 - 109 mg/dL Reason for Admission: Please refer to the H&P for full details. In short, this is a 48 y.o. male with a history of insulin dependent diabetes mellitus, chronic osteomyelitis of the right great toe, chroni c pain with opiate dependence, who presented with pain and swelling in the right foot and l eg. Problem-Oriented Hospital Course: R 1st toe osteomyelitis with cellulitis of foot/leg - Initially started on vancomycin - Reviewed micro data from wound culture last admission, cultures showed MSSA and corynebac terium - Discussed with pharmacy, who suspects corynebacterium is a contaminant, recommend treatin g MSSA with ceftriaxone, adding clindamycin (had been taking cephalexin and clindamycin as a n outpatient) - Stopped vancomycin, switched to daily ceftriaxone, which can be given on a daily basis th rough peripheral IV or IM shot --Discussed with Dr. Nash who recommended continued antibiotic treatment, no surgical nee ds at this time if he declines amputation - Clinically improved during hospital stay, redness, swelling, and pain improved - We'll plan to continue clindamycin, set up daily ceftriaxone with outpatient infusion cli gabino, via either peripheral IV placed daily or IM shots, he is not a candidate for PICC line Insulin dependent diabetes mellitus with hyperglycemia: - Continue glargine, insulin sliding scale, BS improved today - Refilled diabetic supplies, which he stated he had run out of - Takes lisinopril, continue unless BP drops HLD --continue lipitor. Opiate dependence - Had been taking methadone 40 mg tid last admission, cut down to 30 mg tid - He reported that his PCP had stopped methadone prescription because of a UDS issue - He states that he does have oxycodone at home for pain, but would prefer methadone and as ked for a refill of this - Advised him that he will need outpatient provider to manage ongoing chronic pain/opiate d ependence issues, and because he already has oxycodone at home, to use this until he can edmond t with his outpatient provider - Also takes cyclobenzaprine for pain Smoking: - Encouraged cessation, he is working towards this, only smokes a few puffs a day Disposition: Home with Discharge Condition: Stable Lungs clear Heart regular rate and rhythm Abdomen soft, nontender Extremities warm and well perfused without edema, minimal swelling and redness of the right great toe without open wound, resolved redness and warmth of right lower leg and foot Follow-up Information Schedule an appointment as soon as possible for a visit with Russell Sanabria MD. Specialty: Family Medicine Contact information: [address] [facility] [address] Jose Nash MD. Schedule an appointment as soon as possible for a visit in 2 weeks. Specialties: Orthopedic Surgery, Surgery Contact information: [address] [facility] [address] Discharge Medications New Medications Details TERRI CONTOUR MONITOR w/Device Kit 1 kit by Does not apply route as needed. cefTRIAXone (ROCEPHIN) 2 g in sodium chloride 0.9% 50 mL IVPB Inject 2 g into the vein every 24 hours for 42 days. Indications: Infection of Bone and Deejay ne Marrow Start: 11/29/2018 insulin lispro 100 units/mL injection (pen) Inject 0-18 Units under the skin 4 times daily (with meals and nightly). Blood Glucose (BG ) < 150:None BG 150-200: DAY: 3 units.NIGHT: 0 units BG 201-250: DAY: 6 units.NIGHT: 3 units BG 251-300: DAY: 9 units.NI GHT: 6 units BG 301-350: DAY: 12 units.NIGHT: 9 units BG 351-400: DAY: 15 units. NIGHT: 12 units BG > 400: DAY: 18 units.NIGHT: 15 units aka: humaLOG KWIKPEN ONE TOUCH ULTRASOFT LANCETS Misc by Does not apply route 3 times daily (before meals). Changed Medications Details clindamycin 300 MG capsule Take 1 capsule by mouth 3 times daily for 28 days. What changed: Another medication with the same name was removed. Continue taking this medi cation, and follow the directions you see here. aka: CLEOCIN Unchanged Medications Details amphetamine-dextroamphetamine 30 MG 24 hr capsule take 1 capsule by mouth once daily aka: ADDERALL XR atorvaSTATin 40 mg tablet Take 40 mg by mouth Daily. aka: LIPITOR cyclobenzaprine 10 mg tablet 1 tablet orally 3 times per day aka: FLEXERIL dapagliflozin 10 mg tablet Take 1 tablet by mouth every morning. aka: FARXIGA empagliflozin 10 mg tablet Take 1 tablet by mouth Daily. Start when you run out of insulin aka: JARDIANCE ergocalciferol 50,000 units capsule Take 50,000 Units by mouth Once a week. On aka: VITAMIN D-2 gabapentin 600 MG tablet take 1 tablet by mouth three times a day aka: NEURONTIN glucose blood test strips strip Use as dir aka: TERRI CONTOUR TEST insulin glargine 100 units/mL injection (pen) Inject 54 Units under the skin 2 times daily for 30 days. aka: LANStevieUS SOLOSTAR lidocaine 5% patch Place 2 patches onto the skin Daily. Apply for 12 hours, then remove for 12 hours. aka: LIDODERM lisinopril 10 mg tablet Take 10 mg by mouth Daily. aka: PRINIVIL, ZESTRIL metFORMIN 500 mg tablet Take 2 tablets by mouth 2 times daily. aka: GLUCOPHAGE omeprazole 20 mg capsule Take 20 mg by mouth every morning (before breakfast). aka: priLOSEC oxyCODONE 30 MG immediate release tablet Take 30 mg by mouth 5 times daily as needed for Pain. aka: ROXICODONE pregabalin 100 mg capsule Take 1 capsule by mouth 2 times daily. aka: LYRICA SENNA LAX 8.6 mg tablet Generic drug: senna take 4 tablets by mouth UP TO 2 TIMES A DAY NEEDED FOR CONSTIPATION tamsulosin 0.4 mg Caps Take 0.4 mg by mouth daily (after breakfast). aka: FLOMAX trolamine salicylate 10% cream leg aka: ASPERCREME VENTOLIN HFA 90 mcg/puff inhaler Generic drug: albuterol Discontinued Medications cephalexin 500 mg capsule aka: KEFLEX Studies With Pending Results: None Less than 30 minutes were spent on discharge and coordination of post-hospital care. Electronically signed by: Omega Cortes MD, 11/28/2018 18:09 [facility] documented in this encounter Discharge Instructions Instructions Trino Camacho MD - 11/26/2018Follow-up with primary care Follow up with your orthopedist Take antibiotics as prescribed documented in this encounter Medications at Time [...] documented as of this encounter Progress Notes Rama Bragg RN - 11/28/2018 5:05 AM [id number] - patient and spouse requested to go down to vending machines for additional food, patient stating "this isn't a assisted". UC and I a greed to allow pt to go down to vending machine. [id number] - MD notified of pt and spouse at vending machines, stated that the patient needed to s carisa on unit floor. Security called and escorted pt and spouse back up to the room.Electroni pam signed by Rama Bragg RN at 11/28/2018 5:09 AM Omega Santana MD - 2018 7:33 PM PST [facility] Hospitalist Progress Note Cecilio Arias is a 48 y.o. male ASSESSMENT and PLAN: Active Hospital Problems Diagnosis Hypomagnesemia Smoker - Daily Chronic osteomyelitis of toe of right foot Opiate dependence Insulin dependent diabetes mellitus Resolved Hospital Problems Diagnosis Date Noted Date Resolved No resolved problems to display. R 1st toe osteomyelitis - Initially started on vancomycin - Discussed with pharmacy, who suspects corynebacterium is a contaminant, recommend treatin g MSSA with ceftriaxone, adding clindamycin - Stop vancomycin, switch to daily ceftriaxone, which could be given on a daily basis throu peripheral IV or IM shot - Will discuss further with outpatient infusion clinic tomorrow --Discussed with Dr. Nash who recommended continued antibiotic treatment, no surgical nee ds at this time if he declines amputation - Clinically improved Insulin dependent diabetes mellitus with hyperglycemia: - Continue glargine, insulin sliding scale, BS somewhat improved today - Takes lisinopril, continue unless BP drops HLD --continue lipitor. Opiate dependence - Had been taking methadone 40 mg tid last admission, cut down to 30 mg tid - He reported that his PCP had stopped methadone prescription because of a UDS - Will need outpatient provider to manage ongoing chronic pain/opiate dependence issues - Also takes cyclobenzaprine for pain Disposition : Likely home with Prophylaxis : enoxaparin SUBJECTIVE: Pain and redness somewhat improved in right leg. No chest pain, shortness of breath, or other acute complaints. VITALS: Temp: 36 C (96.8 F), Pulse: 74, Resp: 16, BP: 102/57, SpO2 96 % on room air Temp Min: 36 C (96.8 F) Max: 36 C (96.8 F) Weight: 94 kg (207 lb 3.7 oz) Intake/Output Summary (Last 24 hours) at 11/27/181933 Last data filed at 11/27/18 1602 Gross per 24 hour Intake 1611 ml Output 0 ml Net 1611 ml PHYSICAL EXAM: General: Alert, no distress, lying in bed Cardiovascular: RRR Respiratory: CTA bilaterally Abdomen: Soft, NT Extremities: WWP, minimal redness in right foot, right toe swollen with healing defect on the plantar aspect, no open wound at this time, no purulent drainage Jimenez catheter present: No DIAGNOSTIC STUDIES: Available data and images were reviewed personally. Significant results and findings are a ddressed here or in the Assessment and Plan. Recent Results (from the past 24 hour(s)) POC Glucose Result Value Ref Range Glucose, POC 176 (H) 70 - 109 mg/dL POC Glucose Result Value Ref Range Glucose, POC 394 (H) 70 - 109 mg/dL POC Glucose Result Value Ref Range Glucose, POC 181 (H) 70 - 109 mg/dL Basic Metabolic Panel Result Value Ref Range Na 135 (L) 136 - 145 mmol/L K 3.9 3.4 - 5.1 mmol/L Cl 101 98 - 107 mmol/L CO2 30 20 - 31 mmol/L Anion Gap 4 3 - 16 mmol/L Glucose 186 (H) 60 - 106 mg/dL BUN 17 9 - 23 mg/dL Creatinine 0.99 0.70 - 1.30 mg/dL eGFR if not >60 >=60 mL/min/1.73m2 Ca 9.4 8.7 - 10.4 mg/dL BUN/Creatinine Ratio 17.2 Magnesium Result Value Ref Range Magnesium 1.5 (L) 1.6 - 2.6 mg/dL Extra Lavender Top Tube Result Value Ref Range Extra Lavender Top Tube Done POC Glucose Result Value Ref Range Glucose, POC 221 (H) 70 - 109 mg/dL POC Glucose Result Value Ref Range Glucose, POC 251 (H) 70 - 109 mg/dL No results found. Current Facility-Administered Medications: acetaminophen 650 mg Oral Q4H PRN amphetamine-dextroamphetamine 15 mg Oral BID atorvaSTATin 40 mg Oral Daily bisacodyl 10 mg Rectal Daily PRN calcium carbonate 1,000 mg Oral Q4H PRN cefTRIAXone 2 g Intravenous Daily clindamycin 600 mg Oral 3 times per day cyclobenzaprine 10 mg Oral TID dextrose 12.5 g Intravenous PRN docusate sodium 100 mg Oral BID PRN enoxaparin 40 mg Subcutaneous Daily insulin glargine 54 Units Subcutaneous BID insulin lispro 0-18 Units Subcutaneous 4x Daily WC and HS lidocaine 2 patch Transdermal Daily lisinopril 10 mg Oral Daily magnesium oxide 400 mg Oral Daily melatonin 3 mg Oral Nightly PRN methadone 30 mg Oral 3 times per day naloxone 0.4 mg Intravenous PRN nicotine polacrilex 2 mg Oral PRN ondansetron 4 mg Intravenous Q6H PRN pantoprazole 40 mg Oral QAM AC polyethylene glycol 17 g Oral Daily PRN pregabalin 100 mg Oral BID (8 and 18) senna 8.6 mg Oral BID PRN tamsulosin 0.4 mg Oral Daily after breakfast trolamine salicylate Topical 4x Daily PRN Total time of approximately 25 minutes was spent with the patient and/or patient's family, and/or on the patient's floor/unit, of which more than 50% was spent counseling and/or coord ination the patient's care as outlined above. Omega Cortes 11/27/2018 19:34 [facility] Ita Bravo Pha rmD - 11/27/2018 11:28 AM PST VANCOMYCIN PER PHARMACY PROTOCOL: AMS/Drug Name - vancomycin Patient: Cecilio Arias [id number] Admit: 11/25/2018 22:21 RELEVANT ALLERGIES: azithromycin (anaphylaxis), sulfa antibiotics (hives) 48 yrs old male patient admitted on 11/25/2018 for right foot pain. Patient is receiving van comycin starting on 11/26/18 for osteomyelitis. Patient has a past medical history of Adver se effect of anesthesia; Diabetes mellitus (HCC); Diabetes mellitus type II, ORAL Control (); Elevated cholesterol; Elevated hemoglobin A1c (11/07/2018); Emphysema of lung (HCC) ; GERD (gastroesophageal reflux disease); Immune deficiency disorder (HCC); Osteoporosis; PO NV (postoperative nausea and vomiting); Seizure (HCC); Testosterone deficiency; and Vitamin D deficiency. . Risk factors for MDR organisms include recent healthcare contact and h/o res istant organism. HPI: 48yoM w/ hx of NIDDM, chronic pain on methadone, R 1st toe osteomyelitis, who presents after calling EMS because he felt "off." Patient is a difficult historian and very tangent ial. He is followed by Dr. Nash for his osteomyelitis, and attempts at IV antibiotics in the past have been unsuccessful. He had previously been on cefepime through a PICC, but the n was hospitalized after a possible accidental opiate overdose and PICC dislocation after on ly completing 4 of the 6 weeks of therapy. Per documentation, he had issues with agitation and combativeness with staff nuclear medicine technologist, and left AMA at that hospital stay. He presented again las t month (2 months later) with cellulitis of the left leg. A biopsy was done by Dr. Nash, and grew out MSSA and corynebacterium amycolatum. The plan was for IV vanc until sensitivit ies had finalized. However, he again was apparently difficult with staff and there was conc fiona that he was tampering with the sharps container. He would not sign a behavior contract at that time. When he was informed that he would not be receiving a PICC, he again left AMA on 11/11. It appears that the hospitalist was able to send him with a Rx for PO clinda. He has since been seen at [facility]'s ER on 11/13, but left AMA when they offered admission for IV abx therapy again. He was seen by Dr. Nash on 11/19, who stated he may require amputation . He apparently left the appointment, and Dr. Nash was under the impression that he was c oming to the hospital for another attempt at IV abx therapy. He has apparently been on kefl ex in the interim. Patient says that he has not come into the hospital because he is "being stubborn" and did not appreciate how the staff had treated him. He denies any wrong doing during the previous hospital stays. He apparently felt off today, and noted that his blood sugar was high. He took more insulin than usual (unclear how much) and then was worried that he had overdosed o n insulin. He also took narcan as well? He now says that he is ready for IV abx treatment and is adamant that he needs a PICC and IV abx to avoid amputation. He denies ever injectin g anything into his PICC and says he would never do this. He feels that he and his had taken very good care of the initial PICC and that it had only become dislodged because the tape didn't hold while he took a shower. Antimicrobials - Current Antibiotic Dates of Therapy vancomycin 11/26/18 - Antimicrobials - Discontinued Antibiotic Dates of Therapy Historical Vancomycin dosing (previous & current encounter): extensive Micro/Cultures/Diagnostics: Microbiology Results (Last 14 Days by Collected Date with Culture/Sensitivity) Procedure Component Value Units Date/Time Culture, Blood [[id number]] (Normal) Collected: 11/26/18204 Order Status: Completed Lab Status: Preliminary result Updated: 11/26/181410 Specimen: Blood from Peripheral Blood Culture No growth: Monitored continually by instrument for 5 days Culture, Blood [[id number]] (Normal) Collected: 11/26/18204 Order Status: Completed Lab Status: Preliminary result Updated: 11/26/181410 Specimen: Blood from Peripheral Blood Culture No growth: Monitored continually by instrument for 5 days Relevant cultures from previous admits: Date Source Organisms Sensitivities 11/07/18 Wound cx left (actually right) foot MSSA Corynebacterium amycolatum Resistant to pen G, sensitive to all others Sensitivities not done - if not a contaminant, often has MDR UA: not performed Admission Wt: Weight: 94 kg (207 lb 3.7 oz) Current Wt: Weight: 93.1 kg (205 lb 4 oz) Min/Max Temp past 24 hours:Temp Av.5 C (97.7 F) Min: 36 C (96.8 F) Max: 36. 9 C (98.5 F) Estimated Creatinine Clearance: 102 mL/min (based on SCr of 0.99 mg/dL). Intake/Output Summary (Last 24 hours) at 11/27/18 1128 Last data filed at 11/27/18 0918 Gross per 24 hour Intake 1934 ml Output 0 ml Net 1934 ml Temp: [36 C (96.8 F)-36.9 C (98.5 F)] 36 C (96.8 F) Pulse: [71-91] 71 Resp: [14-16] 16 BP: (108-137)/(59-65) 108/65 Recent Labs Lab 11/27/18 0638 11/26/18 0701 11/25/18 2259 WBC -- 10.1 9.5 CREA 0.99 1.21 1.01 HSCRP -- -- 4.57* ESR -- -- 30* Imaging: Not performed during this admission Previous admission: osteomyelitis, cellulitis Date 11/26 11/27 Time of Vancomycin draw -- ~1430 Vancomycin result -- due LEVEL or TROUGH -- Serum Creatinine 1.01 0.99 CrCl (mL/min) >100 >100 Vanco load/bolus 2000 mg Vanco dose - current -- 1500 mg q12h Vanco dose - new 1500 mg q12hr Assessment: Vancomycin Day # 2 Other antibiotics: none Target Trough: 15-20 mcg/ml for osteomyelitis WBC: wnl; Renal: at apparent baseline; Temp: afebrile; HSCRP: elevated; ESR: elevated; C ulture: blood prelim ngtd; VS: WNL Renal function: UOP: need 24 hours worth of data Dosing based on actual body weight of 94 kg Plan: 1. Vancomycin load of 2000 mg (~21 mg/kg) IVPB x 1 given on 11/26/18 @ 0340, followed by brannon campos vancomycin 1500 mg IVPB q12h 2. Vancomycin trough ordered for 11/27/18 @ 1430 (draw 60 minutes prior to hanging the [...] Dosing and Monitoring Protocol Electronically signed by: Ita Cornell, PharmD 11/27/2018 11:28 Omega Santana MD - 11/26/2018 2:03 PM PST He reports taking methadone at home, up to 160 mg daily, although recently methadone prescri ption was stopped by his PCP due to UDS. Will stop oxycodone, put on smaller dose of methad one 30 mg tid. In the hospital recently, was on 40 mg tid. Discussed with orthopedic team, recommend consideration of great toe amputation, which he has refused. Continue vancomycin , monitor BS which have been high, increase sliding scale. Marco Laughlin, PharmD - 11/26/2018 1:51 AM PST VANCOMYCIN PER PHARMACY PROTOCOL: AMS/Drug Name - vancomycin Patient: Cecilio Arias ED05/ED05 Admit: 11/25/2018 22:21 RELEVANT ALLERGIES: azithromycin (anaphylaxis), sulfa antibiotics (hives) 48 yrs old male patient admitted on 11/25/2018 for right foot pain. Patient is receiving van comycin starting on 11/26/18 for osteomyelitis. Patient has a past medical history of Adver se effect of anesthesia; Diabetes mellitus (HCC); Diabetes mellitus type II, ORAL Control (); Elevated cholesterol; Elevated hemoglobin A1c (11/07/2018); Emphysema of lung ([facility]) ; GERD (gastroesophageal reflux disease); Immune deficiency disorder (HCC); Osteoporosis; PO NV (postoperative nausea and vomiting); Seizure (HCC); Testosterone deficiency; and Vitamin D deficiency. . Risk factors for MDR organisms include recent healthcare contact and h/o res istant organism. HPI: 48yoM w/ hx of NIDDM, chronic pain on methadone, R 1st toe osteomyelitis, who presents after calling EMS because he felt "off." Patient is a difficult historian and very tangent ial. He is followed by Dr. Nash for his osteomyelitis, and attempts at IV antibiotics in the past have been unsuccessful. He had previously been on cefepime through a PICC, but the n was hospitalized after a possible accidental opiate overdose and PICC dislocation after on ly completing 4 of the 6 weeks of therapy. Per documentation, he had issues with agitation and combativeness with staff nuclear medicine technologist, and left AMA at that hospital stay. He presented again las t month (2 months later) with cellulitis of the left leg. A biopsy was done by Dr. Nash, and grew out MSSA and corynebacterium amycolatum. The plan was for IV vanc until sensitivit ies had finalized. However, he again was apparently difficult with staff and there was conc fiona that he was tampering with the sharps container. He would not sign a behavior contract at that time. When he was informed that he would not be receiving a PICC, he again left AMA on 11/11. It appears that the hospitalist was able to send him with a Rx for PO clinda. He has since been seen at [facility]'s ER on 11/13, but left AMA when they offered admission for IV abx therapy again. He was seen by Dr. Nash on 11/19, who stated he may require amputation . He apparently left the appointment, and Dr. Nash was under the impression that he was c oming to the hospital for another attempt at IV abx therapy. He has apparently been on kewv ex in the interim. Patient says that he has not come into the hospital because he is "being stubborn" and did not appreciate how the staff had treated him. He denies any wrong doing during the previous hospital stays. He apparently felt off today, and noted that his blood sugar was high. He took more insulin than usual (unclear how much) and then was worried that he had overdosed o n insulin. He also took narcan as well? He now says that he is ready for IV abx treatment and is adamant that he needs a PICC and IV abx to avoid amputation. He denies ever injectin g anything into his PICC and says he would never do this. He feels that he and his had taken very good care of the initial PICC and that it had only become dislodged because the tape didn't hold while he took a shower. Antimicrobials - Current Antibiotic Dates of Therapy vancomycin 11/26/18 - Antimicrobials - Discontinued Antibiotic Dates of Therapy Historical Vancomycin dosing (previous & current encounter): extensive Micro/Cultures/Diagnostics: Microbiology Results (Last 14 Days by Collected Date with Culture/Sensitivity) Procedure Component Value Units Date/Time Culture, Blood [[id number]] Order Status: Sent Lab Status: No result Specimen: Blood from Peripheral Blood Culture, Blood [[id number]] Order Status: Sent Lab Status: No result Specimen: Blood from Peripheral Blood Relevant cultures from previous admits: Date Source Organisms Sensitivities 11/07/18 Wound cx left (actually right) foot MSSA Corynebacterium amycolatum Resistant to pen G, sensitive to all others Sensitivities not done - if not a contaminant, often has MDR UA: not performed Admission Wt: Weight: 94 kg (207 lb 3.7 oz) Current Wt: Weight: 94 kg (207 lb 3.7 oz) Min/Max Temp past 24 hours:Temp Av.2 C (99 F) Min: 37.2 C (99 F) Max: 37.2 C (99 F) Estimated Creatinine Clearance: 109 mL/min (based on SCr of 1.01 mg/dL). No intake or output data in the 24 hours ending 11/26/18 0151 Temp: [37.2 C (99 F)] 37.2 C (99 F) Pulse: [101-111] 103 Resp: [18] 18 BP: (105-126)/(50-62) 110/58 Recent Labs Lab 11/25/18 2259 WBC 9.5 CREA 1.01 HSCRP 4.57* ESR 30* Imaging: Not performed during this admission Previous admission: osteomyelitis, cellulitis Date 11/26 11/27 Time of Vancomycin draw -- ~1430 Vancomycin result -- due LEVEL or TROUGH -- Serum Creatinine 1.01 CrCl (mL/min) >100 Vanco load/bolus 2000 mg Vanco dose - current -- Vanco dose - new 1500 mg q12hr Assessment: Vancomycin Day # 1 Other antibiotics: none Target Trough: 15-20 mcg/ml for osteomyelitis WBC: wnl; Renal: at apparent baseline; Temp: afebrile; HSCRP: elevated; ESR: elevated; C ulture: blood pending; VS: tachycardic in the low 100's, otherwise wnl and on RA Renal function: UOP: need 24 hours worth of data Dosing based on actual body weight of 94 kg Plan: 1. Vancomycin load of 2000 mg (~21 mg/kg) IVPB x 1 given on 11/26/18 @ 0340, followed by ma intenanjd vancomycin 1500 mg IVPB q12h 2. Vancomycin trough ordered for 11/27/18 @ 1430 (draw 60 minutes prior to hanging the [...] Protocol Electronically signed by: Marco Lim, PharmD 11/26/2018 1:51 documented in this encounter H&P Notes Mamta Pierre MD - 11/26/2018 1:46 AM PST HISTORY AND PHYSICAL EXAMINATION Pt. Name/Age/: Cecilio Arias 48 y.o. 1970 Date of admission: 11/25/2018 Admitting Physician: Mamta Pierre Primary Care Physician: Russell Sanabria History taken from: patient, spouse/SO and past medical records Chief Complaint/Reason for Visit: Blood sugar too high, felt off, want to be admitted for IV abx History of Present Illness: 48yoM w/ hx of NIDDM, chronic pain on methadone, R 1st toe osteomyelitis, who presents afte r calling EMS because he felt "off." Patient is a difficult historian and very tangential. He is followed by Dr. Nash for his osteomyelitis, and attempts at IV antibiotics in the p ast have been unsuccessful. He had previously been on cefepime through a PICC, but then was hospitalized after a possible accidental opiate overdose and PICC dislocation after only co mpleting 4 of the 6 weeks of therapy. Per documentation, he had issues with agitation and c ombativeness with staff nuclear medicine technologist, and left AMA at that hospital stay. He presented again last fri (2 months later) with cellulitis of the left leg. A biopsy was done by Dr. Nash, and g rew out MSSA and corynebacterium amycolatum. The plan was for IV vanc until sensitivities h ad finalized. However, he again was apparently difficult with staff and there was concern t hat he was tampering with the sharps container. He would not sign a behavior contract at at time. When he was informed that he would not be receiving a PICC, he again left AMA on . It appears that the hospitalist was able to send him with a Rx for PO clinda. He has since been seen at [facility]'s ER on 11/13, but left AMA when they offered admission for IV abx therapy again. He was seen by Dr. Nash on 11/19, who stated he may require amputation. He apparently left the appointment, and Dr. Nash was under the impression that he was coming to the hospital for another attempt at IV abx therapy. He has apparently been on keflex in the interim. Patient says that he has not come into the hospital because he is "being stubborn" and did not appreciate how the staff had treated him. He denies any wrong doing during the previous hospital stays. He apparently felt off today, and noted that his blood sugar was high. He took more insulin than usual (unclear how much) and then was worried that he had overdosed o n insulin. He also took narcan as well? He now says that he is ready for IV abx treatment and is adamant that he needs a PICC and IV abx to avoid amputation. He denies ever injectin g anything into his PICC and says he would never do this. He feels that he and his had taken very good care of the initial PICC and that it had only become dislodged because the tape didn't hold while he took a shower. Past Medical History: Past Medical History: Diagnosis Date Adverse effect of anesthesia Slow to wake up Diabetes mellitus ([facility]) Diabetes mellitus type II, ORAL Control 10/28/2011 Elevated cholesterol Elevated hemoglobin A1c 11/07/2018 12.9 - 07/2018 12.3 - 11/2016 Emphysema of lung ([facility]) GERD (gastroesophageal reflux disease) Immune deficiency disorder ([facility]) Lab results placed in chart regarding [id number] Phenotype. Osteoporosis PONV (postoperative nausea and vomiting) Seizure ([facility]) Testosterone deficiency Vitamin D deficiency Past Surgical History: Procedure Laterality Date CARPAL TUNNEL RELEASE Left 05/14/2017 Procedure: Left Elbow Joint Exploration and Bilateral Shoulder Injection; Surgeon: Nirmal Wood MD; Location: [facility] MAIN OR ELBOW SURGERY Left 11/15/2015 Procedure: Left Lateral Epicondylar Release & Injection of Left Elbow Joint ; Surgeon: Janet Wood MD; Location: [facility] MAIN OR INCISION AND DRAINAGE Right 11/07/2018 Procedure: right great toe superfical bone biopsy; Surgeon: Jose Nash MD; Location: [facility] MAIN OR KNEE ARTHROSCOPY Right 12/05/2014 Procedure: Right Knee Arthroscopy with Partial Medial Menisectomy and Medial- Femoral Tay droplasty; Surgeon: Marty Wood MD; Location: [facility] MAIN OR KNEE ARTHROSCOPY Right 02/11/2018 Procedure: Right Knee Arthroscopy & bilateral Elbow Injections, Lateral Tibial Chondroplas ty, Medial Femoral Chondroplasty, Partial medial meniscectomy; Surgeon: Marty Wood MD; Location: [facility] MAIN OR MANDIBLE SURGERY spinal cord injury Allergies: Allergies Allergen Reactions Azithromycin Anaphylaxis Codeine Hives Hydrocodone Hives Sulfa Antibiotics Hives Current Medications: No current facility-administered medications for this encounter. Current Outpatient Prescriptions Medication Sig Dispense Refill [...] daily for 28 days. 84 capsule 0 clindamycin (CLEOCIN) 300 MG capsule Take 1 capsule by mouth 3 times daily for 14 days. Follow up with Dr Ruiz 11/17/2018 1:15pm 42 capsule 0 cyclobenzaprine (FLEXERIL) 10 mg tablet [...] Vital Signs on Arrival: Temp: 37.2 C (99 F) BP: 125/62 Pulse: 105 Resp: 18 SpO2: 100 % on Most Recent Vital Signs: Temp: 37.2 C (99 F) BP: 110/58 Pulse: 103 Resp: 18 SpO2: 97 % on Admission Weight: Weight: 94 kg (207 lb 3.7 oz) BMI: Body mass index is 28.11 kg/m. Physical Examination: General: Alert, initially pleasant, but became increasingly agitated during our conversati on, NAD HEENT: MMM Cardiovascular: Regular S1S2, no murmur Respiratory: CTAB Abdomen: S NT ND BS normoactive Genitourinary: deferred Extremities: Trace edema of RLE. Skin: R 1st toe ulceration w/o surrounding erythema or drainage Neurological: nonfocal Psychiatric: Pressured speech, tangential, agitated by the end of the interview Diagnostic Studies: Available Labs and Images were reviewed personally. Significant resul ts and findings are addressed below or in the Assessment and Plan. Code Status: FULL Assessment and Plan: 1. R 1st toe osteomyelitis--Previous cultures grew MSSA and corynebacterium amycolatum. Af ter discussion with pharmacy, this strain of corynebacterium tends to be relatively resistan t to many antibiotics. Recommended vancomycin for now. Will need to touch base with ID in the AM. Appropriate long-term antibiotic treatment will be a challenge for him, especially as previous documentation demonstrates that he would not be an appropriate candidate for ano ther PICC. I did discuss this with him, which made him very angry and agitated. Would disc uss this further with his orthopedic surgeon, Dr. Nash, as well in the AM. Unfortunately, the patient is likely headed towards amputation. 2. NIDDM--holding metformin and farxiga for now. SSI and lantus. 3. HLD--continue lipitor. 4. Opiate dependence--continuing oxycodone and lyrica. Previously had been on methadone, b ut it does not appear that he is currently still in treatment. Check utox. 5. Behavior--I what behavior we would expect of him while staying in the hospital. He prom ised to treat the staff respectfully and is willing to sign a behavior contract with alfonzo wilkinson AM. FEN: DM PPx: lovenox Code: FULL, per patient wishes on admission Dispo: Inpatient, as will likely require >2MN hospital stay. Electronically signed by: Mamta Pierre MD, 11/26/2018 1:46 [facility] Lab data: Recent Results (from the past 24 hour(s)) CBC with Differential Collection Time: 11/25/18 22:59 Result Value Ref Range WBC 9.5 4.0 - 11.0 K/uL RBC 3.92 (L) 4.30 - 5.70 M/uL Hemoglobin 11.1 (L) 13.5 - 18.0 g/dL Hematocrit 34.7 (L) 40.0 - 51.0 % MCV 88.5 83.0 - 101.0 fL MCH 28.3 28.0 - 35.0 pg MCHC 32.0 32.0 - 36.0 g/dL RDW-CV 13.5 <15.0 % RDW-SD 43.8 35.1 - 46.3 fL Platelet Count 387 140 - 440 K/uL MPV 10.6 6.5 - 12.4 fL % Neutrophils 71.0 45.0 - 82.0 % % Lymphocytes 19.0 (L) 20.0 - 45.0 % % Monocytes 6.9 4.0 - 12.0 % % Eosinophils 2.2 0.0 - 5.0 % % Basophils 0.4 0.0 - 1.0 % % Immature Granulocytes 0.5 (H) 0.0 - 0.4 % Absolute Neutrophils 6.76 1.80 - 8.50 K/uL Absolute Lymphocytes 1.81 0.60 - 3.20 K/uL Absolute Monocytes 0.66 0.00 - 1.00 K/uL Absolute Eosinophils 0.21 0.00 - 0.40 K/uL Absolute Basophils 0.04 0.00 - 0.10 K/uL Absolute Immature Granulocytes 0.05 (H) 0.00 - 0.03 K/uL % nRBC 0 0 - 2 per 100 WBC's Absolute nRBC 0.00 0.00 - 0.01 K/uL Comprehensive Metabolic Panel Collection Time: 11/25/18 22:59 Result Value Ref Range Na 134 (L) 136 - 149 mmol/L K 3.5 3.5 - 5.1 mmol/L Cl 96 (L) 98 - 109 mmol/L CO2 24 24 - 31 mmol/L Anion Gap 14 3 - 16 mmol/L Glucose 268 (H) 70 - 109 mg/dL BUN 14 7 - 18 mg/dL Creatinine 1.01 0.60 - 1.30 mg/dL eGFR if not >60 >=60 mL/min/1.73m2 Ca 8.9 8.3 - 10.5 mg/dL Albumin 3.2 3.2 - 5.0 g/dL Bilirubin Total 0.4 0.1 - 1.5 mg/dL Total Protein 6.6 6.0 - 7.8 g/dL AST 20 10 - 42 U/L ALT 16 6 - 45 U/L Alkaline Phosphatase 114 (H) 40 - 110 U/L Globulin 3.4 2.1 - 3.8 g/dL Albumin/Globulin Ratio 0.9 0.8 - 2.0 BUN/Creatinine Ratio 13.9 Sedimentation Rate Collection Time: 11/25/18 22:59 Result Value Ref Range ESR 30 (H) <15 mm/hr C-Reactive Protein, High Sensitivity Collection Time: 11/25/18 22:59 Result Value Ref Range CRP, High Sensitive 4.57 (H) <=3.00 mg/L Extra Lavender Top Tube Collection Time: 11/25/18 23:00 Result Value Ref Range Extra Lavender Top Tube Done Extra Blue Top Tube Collection Time: 11/25/18 23:00 Result Value Ref Range Extra Blue Top Tube Done Extra Green Top Tube Collection Time: 11/25/18 23:00 Result Value Ref Range Extra Green Top Tube Done documented in this enc [facility] ED Notes Trino Camacho MD - 11/25/2018 10:53 PM PSTFormatting of this note might be different fro m the original. eMERGENCY dEPARTMENT eNCOUnter CHIEF COMPLAINT Chief Complaint Patient presents with Overdose (Accidental) Foot Pain HPI Cecilio Arias is a 48 y.o. male who presents after apparent overdose on opiates. Patient states this was accidental. He states that he felt like he was going to pass out and gave himself intranasal Narcan. Patient states that he takes methadone chronically and also oxycodone for chronic pain. He has an ongoing osteomyelitis of the distal phalanx of the ri ght great toe for which she is seeing orthopedics. He is currently on Keflex for the last we ek. He states that he has been in the hospital 4 times for this. He states that he left the hospital against medical advice 2 weeks ago. PAST MEDICAL HISTORY Past Medical History: Diagnosis Date Adverse effect of anesthesia Slow to wake up Diabetes mellitus (HCC) Diabetes mellitus type II, ORAL Control 10/28/2011 Elevated cholesterol Elevated hemoglobin A1c 11/07/2018 12.9 - 07/2018 12.3 - 11/2016 Emphysema of lung ([facility]) GERD (gastroesophageal reflux disease) Immune deficiency disorder ([facility]) Lab results placed in chart regarding [id number] Phenotype. Osteoporosis PONV (postoperative nausea and vomiting) Seizure ([facility]) Testosterone deficiency Vitamin D deficiency SURGICAL HISTORY Past Surgical History: Procedure Laterality Date CARPAL TUNNEL RELEASE Left 05/14/2017 Procedure: Left Elbow Joint Exploration and Bilateral Shoulder Injection; Surgeon: Nirmal Wood MD; Location: [facility] MAIN OR ELBOW SURGERY Left 11/15/2015 Procedure: Left Lateral Epicondylar Release & Injection of Left Elbow Joint ; Surgeon: Janet Wood MD; Location: [facility] MAIN OR INCISION AND DRAINAGE Right 11/07/2018 Procedure: right great toe superfical bone biopsy; Surgeon: Jose Nash MD; Location: [facility] MAIN OR KNEE ARTHROSCOPY Right 12/05/2014 Procedure: Right Knee Arthroscopy with Partial Medial Menisectomy and Medial- Femoral Tay droplasty; Surgeon: Marty Wood MD; Location: [facility] MAIN OR KNEE ARTHROSCOPY Right 02/11/2018 Procedure: Right Knee Arthroscopy & bilateral Elbow Injections, Lateral Tibial Chondroplas ty, Medial Femoral Chondroplasty, Partial medial meniscectomy; Surgeon: Marty Wood MD; Location: [facility] MAIN OR MANDIBLE SURGERY spinal cord injury CURRENT MEDICATIONS Current Discharge Medication List CONTINUE these medications which have NOT CHANGED Details amphetamine-dextroamphetamine (ADDERALL XR) 30 MG 24 hr capsule take 1 capsule by mouth onc e daily Refills: 0 atorvaSTATin (LIPITOR) 40 mg tablet Take 40 mg by mouth Daily. cephalexin (KEFLEX) 500 mg capsule Take 1 capsule by mouth 4 times daily for 28 days. Qty: 112 capsule, Refills: 0 !! clindamycin (CLEOCIN) 300 MG capsule Take 1 capsule by mouth 3 times daily for 28 days. Qty: 84 capsule, Refills: 0 !! clindamycin (CLEOCIN) 300 MG capsule Take 1 capsule by mouth 3 times daily for 14 days. Follow up with Dr Ruiz 11/17/2018 1:15pm Qty: 42 capsule, Refills: 0 cyclobenzaprine (FLEXERIL) 10 mg tablet 1 tablet orally 3 times per day Qty: 90 tablet, Refills: 2 dapagliflozin (FARXIGA) 10 mg tablet Take 1 tablet by mouth every morning. Qty: 30 tablet, Refills: 0 empagliflozin (JARDIANCE) 10 mg tablet Take 1 tablet by mouth Daily. Start when you run out of insulin Qty: 30 tablet, Refills: 0 ergocalciferol (VITAMIN D-2) 50,000 units capsule Take 50,000 Units by mouth Once a week. gabapentin (NEURONTIN) 600 MG tablet take 1 tablet by mouth three times a day Refills: 0 glucose blood test strips (TERRI CONTOUR TEST) strip Use as dir Qty: 100 each, Refills: 0 insulin glargine (LANTUS SOLOSTAR) 100 units/mL injection (pen) Inject 54 Units under the s kin 2 times daily. lidocaine (LIDODERM) 5% patch Place 2 patches onto the skin Daily. Apply for 12 hours, then remove for 12 hours. Qty: 30 patch, Refills: 0 lisinopril (PRINIVIL, ZESTRIL) 10 mg tablet Take 10 mg by mouth Daily. Refills: 0 metFORMIN (GLUCOPHAGE) 500 mg tablet Take 2 tablets by mouth 2 times daily. Qty: 60 tablet, Refills: 0 omeprazole (PRILOSEC) 20 mg capsule Take 20 mg by mouth every morning (before breakfast). oxyCODONE (ROXICODONE) 30 MG immediate release tablet Take 30 mg by mouth 5 times daily as needed for Pain. pregabalin (LYRICA) 100 mg capsule Take 1 capsule by mouth 2 times daily. Qty: 90 capsule, Refills: 1 SENNA LAX 8.6 MG tablet take 4 tablets by mouth UP TO 2 TIMES A DAY NEEDED FOR CONSTIPAT ION Refills: 0 tamsulosin (FLOMAX) 0.4 mg CAPS Take 0.4 mg by mouth daily (after breakfast). Refills: 0 trolamine salicylate (ASPERCREME) 10% cream leg Qty: 170 g, Refills: 0 VENTOLIN HFA 108 (90 Base) MCG/ACT inhaler Refills: 0 !! - Potential duplicate medications found. Please discuss with provider. ALLERGIES Allergies Allergen Reactions Azithromycin Anaphylaxis Codeine [...] week Types: Marijuana, Methamphetamines Sexual activity: Not Asked Other Topics Concern None Social History Narrative None REVIEW OF SYSTEMS A 12 system review of systems is otherwise negative except as noted in the HPI above. PHYSICAL EXAM VITAL SIGNS: (first vital signs):Temp: 37.2 C (99 F) Pulse: 105 Resp: 18 SpO2: 100 % BP : 125/62 Constitutional: Well developed, Well nourished, No acute distress, Non-toxic appearance. 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 Neck-supple, nontender, no meningismus, No stridor. Eyes: PERRL, EOMI, Conjunctiva normal, No discharge. Respiratory: Breath sounds equal bilaterally, no adventitious sounds, No chest wall tender ness. Cardiovascular: Normal rate, normal S1, S2, no murmurs, rubs, or gallops GI: Abdomen soft, non-tender, non-distended, normal bowel sounds, no CVA tenderness : Musculoskeletal: Intact distal pulses, right great toe is tender to palpation, there is sl ight edema but no erythema, there is skin breakdown/dry ulceration over the plantar surface of the toe. Back- No tenderness. Skin: Warm, Dry, No erythema, No rash or lesions. Lymphatic: Neurologic: Alert & oriented x 3, Cranial nerves II-XII intact, Normal sensation, motor, a nd strength in all four extremities, No focal deficits noted. Psychiatric: Affect normal, Judgment normal, Mood normal. Labs Reviewed CBC WITH DIFFERENTIAL - Abnormal; Notable for the following: Result Value RBC 3.92 (*) Hemoglobin 11.1 (*) Hematocrit 34.7 (*) % Lymphocytes 19.0 (*) % Immature Granulocytes 0.5 (*) Absolute Immature Granulocytes 0.05 (*) All other components within normal limits COMPREHENSIVE METABOLIC PANEL - Abnormal; Notable for the following: Na 134 (*) Cl 96 (*) Glucose 268 (*) Alkaline Phosphatase 114 (*) All other components within normal limits SEDIMENTATION RATE - Abnormal; Notable for the following: ESR 30 (*) All other components within normal limits C-REACTIVE PROTEIN, HIGH SENSITIVITY - Abnormal; Notable for the following: CRP, High Sensitive 4.57 (*) All other components within normal limits CULTURE, BLOOD CULTURE, BLOOD EXTRA LAVENDER TOP TUBE EXTRA BLUE TOP TUBE EXTRA GREEN TOP TUBE CBC WITH DIFFERENTIAL BASIC METABOLIC PANEL MAGNESIUM RADIOLOGY CT Results: No results found. ED COURSE & MEDICAL DECISION MAKING Pertinent Labs & Imaging studies reviewed. (See chart for details) Patient presents with aforementioned symptoms and physical exam findings. He was monitored without any further symptoms of opiate overdose. Laboratory evaluation has shown above. Ashlee ent complains of ongoing pain from osteomyelitis of the right great toe. Requests admission for IV antibiotics. Patient's case was discussed with hospitalist and patient will be admitt ed for inpatient management. Last Set of Vital Signs: Temp: 36.3 C (97.4 F) Pulse: 97 Resp: 18 SpO2: 97 % BP: 129/56 FINAL IMPRESSION 1. Opiate overdose, accidental or unintentional, initial encounter (HCC) 2. Subacute osteomyelitis of right foot (HCC) 3. Chronic osteomyelitis of toe of right foot (HCC) 4. Diabetes mellitus type II, non insulin dependent (HCC) 5. Uncomplicated opioid dependence (HCC) PLAN Follow-up Information Schedule an appointment as soon as possible for a visit with Russell Sanabria MD. Specialty: Family Medicine Contact information: [address] [facility] [address] Schedule an appointment as soon as possible for a visit with Jose Nash MD. Specialties: Orthopedic Surgery, Surgery Contact information: [address] [place] [phone] Current Discharge Medication List Trino Camacho MD 11/26/18 0330 Mansoor Denton RN - 11/25/2018 10:29 PM PSTPt was afraid he his oxycodone may have built up in his system and ma de him overdose. Pt states he has an infection in his right foot and it has made his oxycod one stay in his body longer than normal. Pt is concerned that the right foot infection is ge tting worse. Pt also states his blood glucose has been elevated. documented in this encounter Miscellaneous Notes Plan of Care - Mayela Andrews - 11/28/2018 1:39 PM PSTTalked with Minor and his spouse Cry stal about discharging today. Minor asked this CM about having the attending provider to write a RX for Methadone for him . This CM let Minor know that the attending provider asked that he go and talk with his PCP about this medication. Minor let this CM know that Dr. Sanabria already told he that he will no t write a RX for Methadone. This CM recommended that he check into pain clinics. And let the m know that there is a clinic in [facility]. Minor and Tasha let this CM know that these clinics are asking for $400 a month and that they cant drive to either of these places. Minor and Tasha stated they cant afford the $40 0. Minor let this CM know that he is trying to stay off drugs but if he doesn't get a RX, he w ill go and find drugs. This CM let Minor know that the attending provider will be writing a RX for a short acting narcotic and asked that he follow up with his PCP early next week. Chr is let this CM know that he has a a ton of oxycodone at home and doesn't like the way this m edication make his feel and stated, "I don't want that medication" Minor stated "I'll wait u ntil Dr. Pierre is here and ask her to write a RX" This CM let Minor know that Dr. Cortes is writing discharge orders. Minor asked where Dr. Yepez is at. This CM let Minor know that she is off for the week. This CM also let Minor know that he cant use the ER for pain medication. Minor let this CM know that the last doctor wrote a RX for 8 days supply of Methadone. This CM asked Minor if he plans on going out to find street drugs. Minor said "I don't want to, but If I have to, I will" this CM once again recommended that he go to a pain clinic. Kerline valadez seems upset that this CM was recommending this as an option and stated, "we can't aff ord the $400 a month and that the clinic in [facility] doesn't accept his Insurance. This CM let Minor know that the attending provider would like him to check into our infusio n department at 0900 daily for 42 day to get his Ceftriaxone 2 gm either IVBP or IM. Tasha let this CM know that she will be able to transport. This CM gave the RX to Ita in the infusion service department and she confirmed that they w ill have a spot for Minor at 0900 daily. Electronically signed by: Mayela Andrews 11/28/2018 14:01 lan of Care - Pete Bravo RRT - 11/28/2018 11:39 AM PSTProblem: Patient Care Overview (Adult) Goal: Care Team Goals & Evaluation PROBLEM-RELATED GOALS: 1. Minor will have pain < 3/10 by 11/28/18. 2. Minor will be free from S/S infection by 11/28/18. 3. Minor will remain free from falls through his hospitalization. 4. Mucous evacuation by 12/01/18 STRATEGY TO ACHIEVE GOALS: 1. Assess pain frequently offer the pt. Ordered interventions for pain. 2. Assess the patients wound each shift and appearance of affected extremity. Assess the pa tients vital signs and lab values for changes. 3. Perform hourly rounding, reinforce call light use when IV is infusing, ensure nonskid fo otwear is used, and assess patient sedation levels. 4. Pep meter to help mucous evacuation Goal Evaluation: Patient breath sounds mildly coarse left lower lobe. Good efforts with pep meter, non-productive cough. Will continue to follow lan of Care - Mahsa , Rama Elise RN - 11/28/2018 3:47 AM PSTProblem: Patient Care Overview (Adult) Goal: Care Team Goals & Evaluation PROBLEM-RELATED GOALS: 1. Minor will have pain < 3/10 by 11/28/18. 2. Minor will be free from S/S infection by 11/28/18. 3. Minor will remain free from falls through his hospitalization. STRATEGY TO ACHIEVE GOALS: 1. Assess pain frequently offer the pt. Ordered interventions for pain. 2. Assess the patients wound each shift and appearance of affected extremity. Assess the pa tients vital signs and lab values for changes. 3. Perform hourly rounding, reinforce call light use when IV is infusing, ensure nonskid fo otwear is used, and assess patient sedation levels. Outcome: Unchanged Goal Evaluation: AOx4. Pain controlled by Tylenol and Oxycodone along with scheduled Methadone. Denies N/V , tolerating diet well. Right big toe open to air, mild diffuse redness and +1 edema on R f oot and lower calf, area marked with a skin pen. Pt c/o increasing pain in right calf and f oot this shift, educated pt on keep leg elevated, ice provided. Remains free from falls, am bulating independently in room. Remains free from s/s of infection, afebrile, VSS. Educate d patient on sugar/carb intake as multiple requests for sandwiches, juice and puddings were made throughout shift, patient may benefit from additional diabetes education. Patient rest ed comfortably in between cares, purposeful rounding completed. lan of Care - Prabhu tt, Luana Rice RN - 11/27/2018 3:40 PM PSTProblem: Patient Care Overview (Adult) Goal: Care Team Goals & Evaluation PROBLEM-RELATED GOALS: 1. Minor will have pain < 3/10 by 11/28/18. 2. Minor will be free from S/S infection by 11/28/18. 3. Minor will remain free from falls through his hospitalization. STRATEGY TO ACHIEVE GOALS: 1. Assess pain frequently offer the pt. Ordered interventions for pain. 2. Assess the patients wound each shift and appearance of affected extremity. Assess the pa tients vital signs and lab values for changes. 3. Perform hourly rounding, reinforce call light use when IV is infusing, ensure nonskid fo otwear is used, and assess patient sedation levels. Outcome: Improving Goal Evaluation: Minor did well today. Pt. Is A&O and uses call light approprietly. No sign of pain or disc omfort when in bed, only when up and walking. Methadone given. Started on rocephin today, de clined his clindamycin and reported "This medication does nothing for me, I might as well ju st leave if I'm going to be taking this". Free of falls or injury, mostly independent in robert m. Telesitter in room. BG lower today, and insulin given as needed. Redness in RLE, marked w ith skin marker, irregular edges. Behavior contract found from previous admission, in ghost chart. Mg rider given, magnesium remains low. Frequent rounding done. Will continue to monit or. lan of Care - Leonardo Morillo RN - 11/27/2018 4:15 AM PSTProblem: Patient Care Overview (Adult) Goal: Care Team Goals & Evaluation PROBLEM-RELATED GOALS: 1. Minor will have pain < 3/10 by 11/28/18. 2. Minor will be free from S/S infection by 11/28/18. 3. Minor will remain free from falls through his hospitalization. STRATEGY TO ACHIEVE GOALS: 1. Assess pain frequently offer the pt. Ordered interventions for pain. 2. Assess the patients wound each shift and appearance of affected extremity. Assess the pa tients vital signs and lab values for changes. 3. Perform hourly rounding, reinforce call light use when IV is infusing, ensure nonskid fo otwear is used, and assess patient sedation levels. Outcome: Improving Goal Evaluation: Minor is alert and oriented. He is cooperative with staff. At times he seems frustrated and borderline hostile. BG elevated this shift. He is aware that he needs to eat the diet provi ded but continues to eat snacks his spouse brings. Pt. Has also been reminded that he should not take any outside medications. Tele sitter has called multiple times this shift. Once re porting that the patient was "digging at his toe with a willis." Calls also report possible use of outside medications the patient and his spouse deny this and have been "extremely offend ed" by those inferences from this RN. Reviewed the goals of care with this patient about reginald ping his BG at reasonable levels and continuing IV antibiotics. He verbalizes that he unders tands. More education about diabetes could possibly be helpful. lan of Care - Grisel Tillman RN - 11/26/2018 3:40 PM PSTProblem: Discharge Planning Goal: Patient will be discharged in a safe manner Outcome: Improving This CM met with patient to discuss his d/c plan. He states that he lives with his , Valerie, independently in [place]. She will be his transport back home at discharge. He states that he does not use any DME for his mobility at home. Neither does he use any CPAP or 02. He confirmed his PCP is Russell Sanabria and he uses [facility] in [place] for his pharmacy needs. He also confirmed that he signed the behavior contract this admission. This CM did not find any contract in ghost chart. Called Nehemias in security and he will check into it and will get him to sign it if he did no t on this admit. Dispo plan: Home transported by his . At this time no discharge needs identified. CM to follow closer to discharge. Electronically signed by: Grisel Tillman RN 11/26/2018 15:40 lan of Care - Luana Rubio RN - 11/26/2018 3:23 PM PSTProblem: Patient Care Overview (Adult) Goal: Care Team Goals & Evaluation PROBLEM-RELATED GOALS: 1. Minor will have pain < 3/10 by 11/28/18. 2. Minor will be free from S/S infection by 11/28/18. 3. Minor will remain free from falls through his hospitalization. STRATEGY TO ACHIEVE GOALS: 1. Assess pain frequently offer the pt. Ordered interventions for pain. 2. Assess the patients wound each shift and appearance of affected extremity. Assess the pa tients vital signs and lab values for changes. 3. Perform hourly rounding, reinforce call light use when IV is infusing, ensure nonskid fo otwear is used, and assess patient sedation levels. Outcome: Improving Goal Evaluation: Minor did well today. Pt. Is A&O and uses call light approprietly. Pt. Has remained free o f falls or injury during shift. Independent in room with telesitter. Spouse in room with pt. As well. Pt. Reports pain in right foot and into calf, refuses all other pain medications g iven. Methadone given, which seems to work for pt. Pt. Remains on abx vanco. Heart regular, but tachy. Right toe CDI, with no drainage. Toxic screen came back positive for cannoboids, methadone and opiates. Reddness in RLE, marked. BG high today, insulin given. Mg rider given as well. Frequent rounding done. Will continue to monitor. lan of Care - Leonardo Morillo RN - 11/26/2018 8:09 AM PSTProblem: Patient Care Overview (Adult) Goal: Care Team Goals & Evaluation PROBLEM-RELATED GOALS: 1. Minor will have pain < 3/10 by 11/28/18. 2. Minor will be free from S/S infection by 11/28/18. 3. Minor will remain free from falls through his hospitalization. STRATEGY TO ACHIEVE GOALS: 1. Assess pain frequently offer the pt. Ordered interventions for pain. 2. Assess the patients wound each shift and appearance of affected extremity. Assess the pa tients vital signs and lab values for changes. 3. Perform hourly rounding, reinforce call light use when IV is infusing, ensure nonskid fo otwear is used, and assess patient sedation levels. Outcome: Unchanged Goal Evaluation: Minor arrived to the floor from the ED reporting 8/10 pain in his neck that is chronic from trauma years previous. He explains he uses methadone to control his pain. He is alert and o riented. His speech is clear but it's difficult to follow his thought organization. He has r epeated requests for methadone often but he has refused 30mg oxycodone dose. He says he does n't like how it makes him feel. His tachycardia continues, VSS on room air. Blood glucose va lues were elevated insulin given per order. He repeatedly requested food and juice. Minor curry s been cooperative, but at times unpleasant. He has an occasional unproductive cough, some c oarse lung sounds in the left lower lobe. He has missing teeth. He did not focus his reports of pain on his left toe. There is some obvious swelling and redness in his right foot. The sore on the plantar side of his toe is dry and appears to be healing. He reports some heat a nd swelling in this RLE. He is independent in the room. He uses the call light for requests. No falls. documented in this en counter Plan of Treatment + +------+--------+ + + | Name | Type | Priori | Associated Diagnoses | Date/Time | | | | ty | | | + +------+--------+ + + | ED INFORMATION | SHITAL | Routin | | 11/25/2018 10:19 PM | | EXCHANGE | | e | | PST | + +------+--------+ + + documented as of this encounter Procedures + +--------+ + + + | Procedure Name | Priori | Date/Time | Associated Diagnosis | Comments | | | ty | | | | + +--------+ + + + | POC GLUCOSE | Routin | 11/28/2018 | | Results for this | | | e | 11:38 AM | | procedure are in the | | | | PST | | results section. | + +--------+ + + + | CBC WITH | Routin | 11/28/2018 | | Results for this | | DIFFERENTIAL | e | 6:13 AM | | procedure are in the | | | | PST | | results section. | + +--------+ + + + | BASIC METABOLIC | Routin | 11/28/2018 | | Results for this | | PANEL | e | 6:13 AM | | procedure are in the | | | | PST | | results section. | + +--------+ + + + | POC GLUCOSE | Routin | 11/28/2018 | | Results for this | | | e | 6:05 AM | | procedure are in the | | | | PST | | results section. | + +--------+ + + + | POC GLUCOSE | Routin | 11/27/2018 | | Results for this | | | e | 9:04 PM | | procedure are in the | | | | PST | | results section. | + +--------+ + + + | POC GLUCOSE | Routin | 11/27/2018 | | Results for this | | | e | 4:31 PM | | procedure are in the | | | | PST | | results section. | + +--------+ + + + | POC GLUCOSE | Routin | 11/27/2018 | | Results for this | | | e | 11:35 AM | | procedure are in the | | | | PST | | results section. | + +--------+ + + + | EXTRA LAVENDER TOP | Routin | 11/27/2018 | | Results for this | | TUBE | e | 7:18 AM | | procedure are in the | | | | PST | | results section. | + +--------+ + + + | MAGNESIUM | Routin | 11/27/2018 | | Results for this | | | e | 6:38 AM | | procedure are in the | | | | PST | | results section. | + +--------+ + + + | BASIC METABOLIC | Routin | 11/27/2018 | | Results for this | | PANEL | e | 6:38 AM | | procedure are in the | | | | PST | | results section. | + +--------+ + + + | POC GLUCOSE | Routin | 11/27/2018 | | Results for this | | | e | 6:20 AM | | procedure are in the | | | | PST | | results section. | + +--------+ + + + | POC GLUCOSE | Routin | 11/27/2018 | | Results for this | | | e | 3:11 AM | | procedure are in the | | | | PST | | results section. | + +--------+ + + + | POC GLUCOSE | Routin | 11/26/2018 | | Results for this | | | e | 8:35 PM | | procedure are in the | | | | PST | | results section. | + +--------+ + + + | POC GLUCOSE | Routin | 11/26/2018 | | Results for this | | | e | 4:46 PM | | procedure are in the | | | | PST | | results section. | + +--------+ + + + | POC GLUCOSE | Routin | 11/26/2018 | | Results for this | | | e | 11:37 AM | | procedure are in the | | | | PST | | results section. | + +--------+ + + + | CBC WITH | Routin | 11/26/2018 | | Results for this | | DIFFERENTIAL | e | 7:01 AM | | procedure are in the | | | | PST | | results section. | + +--------+ + + + | MAGNESIUM | Routin | 11/26/2018 | | Results for this | | | e | 7:01 AM | | procedure are in the | | | | PST | | results section. | + +--------+ + + + | BASIC METABOLIC | Routin | 11/26/2018 | | Results for this | | PANEL | e | 7:01 AM | | procedure are in the | | | | PST | | results section. | + +--------+ + + + | POC GLUCOSE | Routin | 11/26/2018 | | Results for this | | | e | 6:53 AM | | procedure are in the | | | | PST | | results section. | + +--------+ + + + | DRUGS OF ABUSE, | Routin | 11/26/2018 | | Results for this | | SCREEN, URINE | e | 6:18 AM | | procedure are in the | | | | PST | | results section. | + +--------+ + + + | POC GLUCOSE | Routin | 11/26/2018 | | Results for this | | | e | 4:06 AM | | procedure are in the | | | | PST | | results section. | + +--------+ + + + | CULTURE, BLOOD | STAT | 11/26/2018 | | Results for this | | | | 2:05 AM | | procedure are in the | | | | PST | | results section. | + +--------+ + + + | CULTURE, BLOOD | STAT | 11/26/2018 | | Results for this | | | | 2:05 AM | | procedure are in the | | | | PST | | results section. | + +--------+ + + + | EXTRA LAVENDER TOP | STAT | 11/25/2018 | | Results for this | | TUBE | | 11:00 PM | | procedure are in the | | | | PST | | results section. | + +--------+ + + + | EXTRA GREEN TOP TUBE | Routin | 11/25/2018 | | Results for this | | | e | 11:00 PM | | procedure are in the | | | | PST | | results section. | + +--------+ + + + | EXTRA BLUE TOP TUBE | STAT | 11/25/2018 | | Results for this | | | | 11:00 PM | | procedure are in the | | | | PST | | results section. | + +--------+ + + + | SEDIMENTATION RATE | STAT | 11/25/2018 | | Results for this | | | | 10:59 PM | | procedure are in the | | | | PST | | results section. | + +--------+ + + + | CBC WITH | STAT | 11/25/2018 | | Results for this | | DIFFERENTIAL | | 10:59 PM | | procedure are in the | | | | PST | | results section. | + +--------+ + + + | C-REACTIVE PROTEIN, | STAT | 11/25/2018 | | Results for this | | HIGH SENSITIVITY | | 10:59 PM | | procedure are in the | | | | PST | | results section. | + +--------+ + + + | COMPREHENSIVE | STAT | 11/25/2018 | | Results for this | | METABOLIC PANEL | | 10:59 PM | | procedure are in the | | | | PST | | results section. | + +--------+ + + + | ED INFORMATION | Routin | 11/25/2018 | | | | EXCHANGE | e | 10:19 PM | | | | | | PST | | | + +--------+ + + + +---+--------+ | | | | | Proced | | | ure | | | Note - | | | Gloria, | | | Lab In | | | | | | Hlseve | | | n - | | | | | | 2018 | | | 10:20 | | | PM PST | | [...] | | | FICATI | | | ON?03[birth year] | | | [birth year]/201 | | | 9 | | | 22:17? | | | AVLONI | | | TIS, | | | DENIS | | | OPHER | | | S?MRN: | | | | | | [id number] | | | [id number] | | | riteri | | | [...] | | 2 360 | | | 2018- | | | 1-15 | | | [...] | | | [id number] | | | 8-27 | | | [...] | | | 2018 | | | 7-20 | | | DEXTRO | | | AMP-AM | | | PHET | | | ER 30 | | | MG CAP | | | 30 | | | KAT | | | DENIS | | | ENSEN | | | 2 0 | | | 2018 | | | 7-20 | | | [...] | | | 2018 | | | 5-19 | | | [...] | | | Center | | | 9 0 | | | [facility] | | | | | | [facility] | | | anding | | | ED 1 | | | 0 | | | Total | | | 10 0 | | | Note: | | [...] | | out | | | of 11 | | | in the | | [...] | | | ncy | | | Feb | | | 22, | | [...] | | | foot | | | Recent | | | [...] | | | joseph.co | | | m/ashlee | | | ent/17 | | | [id number] | | | -[id number] | | | [id number] | | | [id number] | | | [id number] | | | [id number] | | | [...] documented in this encounter Results POC Glucose (11/28/2018 11:38 AM PST) + +---------+ + + + [...] [address] | [place] | [phone] | | [facility] | | [id number] | | | - LABORATORY | | | | + + + + + CBC with Differential (11/28/2018 6:13 AM PST) + + + + + [...] + + + | Red Blood | 3.91 (L) | 4.30 - 5.70 | [facility] | | | Cells | | M/uL | [facility] | | | | | | [facility] | | | | | | CENTER - | | | | | | LABORATORY | | + + + + + + | Hemoglobin | 11.3 (L) | 13.5 - 18.0 | [facility] | | | | | g/dL | [facility] | | | | | | [facility] | | | | | | CENTER - | | | | | | LABORATORY | | + + + + + + | Hematocrit | 34.9 (L) | 40.0 - 51.0 % | [facility] | | | | | | [facility] | | | | | | [facility] | | | | | | CENTER - | | | | | | LABORATORY | | + + + + + + | MCV | 89.3 | 83.0 - 101.0 fL | [facility] [...] + + + + | MCHC | 32.4 | 32.0 - 36.0 | [facility] | | | | | g/dL | [facility] | | | | | | [facility]ICAL | | | | | | CENTER - | | | | | | LABORATORY | | + + + + + + | RDW-CV | 13.7 | <15.0 % | [facility] | | | | | | [facility] | | | | | | [facility] | | | | | | C[facility] - | | | | | | LABORATORY | | + + + + + + | RDW-SD | 44.9 | 35.1 - 46.3 fL | [facility] | | | | | | [facility] | | | | | | [facility] | | | | | | C[facility] - | | | | | | LABORATORY | | + + + + + + | Platelet | 334 | 140 - 440 K/uL | [facility] | | | Count | | | [facility] | | | | | | [facility] | | | | | | CENTER - | | | | | | LABORATORY | | + + + + + + | MPV | 11.2 | 6.5 - 12.4 fL | [facility] | | | | | | [facility] | | | | | | [facility] | | | | | | CENTER - | | | | | | LABORATORY | | + + + + + + | % | 48.1 | 45.0 - 82.0 % | [facility] | | | Neutrophils | | | [facility] | | | | | | [facility] | | | | | | CENTER - | | | | | | LABORATORY | | + + + + + + | % | 34.6 | 20.0 - 45.0 % | [facility] | | | Lymphocytes | | | [facility] | | | | | | [facility]ICAL | | | | | | CENTER - | | | | | | LABORATORY | | + + + + + + | % Monocytes | 10.4 | 4.0 - 12.0 % | [facility] | | | | | | [facility] | | | | | | [facility] | | | | | | CENTER - | | | | | | LABORATORY | | + + + + + + | % | 4.4 | 0.0 - 5.0 % | [facility] [...] + + + | % Immature | 1.7 (H)Comment: | 0.0 - 0.4 % | [facility] | | | Granulocyte | Preliminary studIes have | | [facility] | | | s | indicated the IG% | | MEDICAL | | | | and/or IG# show promise | | CENTER - | | | | as an early screen for | | LABORATORY | | | | infection. | | | | + + + + + + | Absolute | 3.42 | 1.80 - 8.50 | [facility] | | | Neutrophils | | K/uL | [facility] | | | | | | MEDICAL | | | | | | CENTER - | | | | | | LABORATORY | | + + + + + + | Absolute | 2.46 | 0.60 - 3.20 | [facility] | | | Lymphocytes | | K/uL | [facility] | | | | | | [facility]ICAL | | | | | | CENTER - | | | | | | LABORATORY | | + + + + + + | Absolute | 0.74 | 0.00 - 1.00 | [facility] | | | Monocytes | | K/uL | [facility] | | | | | | MEDICAL | | | | | | CENTER - | | | | | | LABORATORY | | + + + + + + | Absolute | 0.31 | 0.00 - 0.40 | [facility] | [...] + + + + | Absolute | 0.12 (H) | 0.00 - 0.03 | [facility] [...] + | [facility] | [address] | [place] | [phone] | | [facility] | | [address] | | | - LABORATORY | | | | + + + + + Basic Metabolic Panel (11/28/2018 6:13 AM PST) + +---------+ + + + | Component | Value | Ref Range | Performed | Pathologist | | | | | At | Signature | + +---------+ + + + | Na | 133 (L) | 136 - 145 | [facility] | | | | | mmol/L | [facility] | | | | | | [facility]ICAL | | | | | | CENTER - | | | | | | LABORATORY | | + +---------+ + + + | K | 4.4 | 3.4 - 5.1 | [facility] | | | | | mmol/L | [facility] | | | | | | [facility] | | | | | | CENTER - | | | | | | LABORATORY | | + +---------+ + + + | Cl | 94 (L) | 98 - 107 mmol/L | [facility] | | | | | | [facility] | | | | | | [facility] | | | | | | CENTER - | | | | | | LABORATORY | | + +---------+ + + + | CO2 | 33 (H) | 20 - 31 mmol/L | [facility] | | | | | | [facility] | | | | | | [facility] | | | | | | CENTER - | | | | | | LABORATORY | | + +---------+ + + + | Anion Gap | 6 | 3 - 16 mmol/L | [facility] | | | | | | [facility] | | | | | | [facility] | | | | | | CENTER - | | | | | | LABORATORY | | + +---------+ + + + | Glucose | 444 (H) | 60 - 106 mg/dL | [facility] | | | | | | [facility] | | | | | | [facility] | | | | | | CENTER - | | | | | | LABORATORY | | + +---------+ + + + | BUN | 24 (H) | 9 - 23 mg/dL | [facility] | | | | | | [facility] | | | | | | [facility] | | | | | | CENTER - | | | | | | LABORATORY | | + +---------+ + + + | Creatinine | 1.23 | 0.70 - 1.30 | [facility] | | | | | mg/dL | [facility] | | | | | | MEDICAL | | | | | | CENTER - | | | | | | LABORATORY | | + +---------+ + + + | eGFR, | >60 | >=60 | [facility] | | | non- | | mL/min/1.73m2 | [facility] | | | [facility] [place] | | | MEDICAL | | | | | | CENTER - | | | | | | LABORATORY | | + +---------+ + + + | Calcium | 9.7 | 8.7 - 10.4 | [facility] | | | | | mg/dL | [facility] | | | | | | MEDICAL | | | | | | CENTER - | | | | | | LABORATORY | | + +---------+ + + + | BUN/Creatin | 19.5 | | [facility] | | | ine Ratio | | | [facility] | | | | | | [facility]ICAL [...] [address] | [place] | [phone] | | [facility] | | [address] | | | - LABORATORY | | | | + + + + + POC Glucose (11/28/2018 6:05 AM PST) + +---------+ + + + | Component | Value | Ref Range | Performed | Pathologist | | | | | At | Signature | + +---------+ + + + | Glucose, | 439 (H) | 70 - 109 mg/dL | [...] + | [facility] | [address] | [place] | [phone] | | [facility] | | [address] | | | - LABORATORY | | | | + + + + + POC Glucose (11/27/2018 9:04 PM PST) + +---------+ + + + | Component | Value | Ref Range | Performed | Pathologist | | | | | At | Signature | + +---------+ + + + | Glucose, | 353 (H) | 70 - 109 mg/dL | [...] [address] | [place] | [phone] | | [facility] | | [address] | | | - LABORATORY | | | | + + + + + POC Glucose (11/27/2018 4:31 PM PST) + +---------+ + + + | Component | Value | Ref Range | Performed | Pathologist | | | | | At | Signature | + +---------+ + + + | Glucose, | 251 (H) | 70 - 109 mg/dL | [...] [address] [address] | [place] | [phone] | | [facility] | | [address] | | | - LABORATORY | | | | + + + + + POC Glucose (11/27/2018 11:35 AM PST) + +---------+ + + + [...] + | [facility] | [address] | [place] | [phone] | | [facility] | | [address] | | | - LABORATORY | | | | + + + + + Extra Lavender Top Tube (11/27/2018 7:18 AM PST) + +-------+ + + + [...] [address] | [place] | [phone] | | [facility] | | [address] | | | - LABORATORY | | | | + + + + + Magnesium (11/27/2018 6:38 AM PST) + +---------+ + + + | Component | Value | Ref Range | Performed | Pathologist | | | | | At | Signature | + +---------+ + + + | Magnesium | 1.5 (L) | 1.6 - 2.6 mg/dL | [facility] | | | | | [...] + | [facility] | [address] | [place], [place] | [phone] | | [facility] | | [address] | | | - LABORATORY | | | | + + + + + Basic Metabolic Panel (11/27/2018 6:38 AM PST) + +---------+ + + + | Component | Value | Ref Range | Performed | Pathologist | | | | | At | Signature | + +---------+ + + + | Na | 135 (L) | 136 - 145 | [facility] | | | | | mmol/L | [facility] | | | | | | [facility] | | | | | | [facility] - | | | | | | LABORATORY | | + +---------+ + + + | K | 3.9 | 3.4 - 5.1 | [facility] | | | | | mmol/L | [facility] | | | | | | [facility] | | | | | | CENTER - | | | | | | LABORATORY | | + +---------+ + + + | Cl | 101 | 98 - 107 mmol/L | [facility] | | | | | | [facility] | | | | | | [facility] | | | | | | CENTER - | | | | | | LABORATORY | | + +---------+ + + + | CO2 | 30 | 20 - 31 mmol/L | [facility] | | | | | | [facility] | | | | | | [facility] | | | | | | CENTER - | | | | | | LABORATORY | | + +---------+ + + + | Anion Gap | 4 | 3 - 16 mmol/L | [facility] | | | | | | [facility] | | | | | | [facility] | | | | | | CENTER - | | | | | | LABORATORY | | + +---------+ + + + | Glucose | 186 (H) | 60 - 106 mg/dL | [facility] | | | | | | [facility] | | | | | | [facility] | | | | | | CENTER - | | | | | | LABORATORY | | + +---------+ + + + | BUN | 17 | 9 - 23 mg/dL | [facility] | | | | | | [facility] | | | | | | [facility] | | | | | | CENTER - | | | | | | LABORATORY | | + +---------+ + + + | Creatinine | 0.99 | 0.70 - 1.30 | [facility] | | | | | mg/dL | [facility] | | | | | | [facility] | | | | | | CENTER - | | | | | | LABORATORY | | + +---------+ + + + | eGFR, | >60 | >=60 | [facility] | | | non- | | mL/min/1.73m2 | [facility] | | | [place] | | | MEDICAL | | | | | | CENTER - | | | | | | LABORATORY | | + +---------+ + + + | Calcium | 9.4 | 8.7 - 10.4 | [facility] | | | | | mg/dL | [facility] | | | | | | [facility] | | | | | | CENTER - | | | | | | LABORATORY | | + +---------+ + + + | BUN/Creatin | 17.2 [...] + | [facility] | [address] | [place] | [phone] | | [facility] | | [address] | | | - LABORATORY | | | | + + + + + POC Glucose (11/27/2018 6:20 AM PST) + +---------+ + + + | Component | Value | Ref Range | Performed | Pathologist | | | | | At | Signature | + +---------+ + + + | Glucose, | 181 (H) | 70 - 109 mg/dL | [...] [facility] | [address] | [place], [place] | [phone] | | [facility] | | [address] | | | - LABORATORY | | | | + + + + + POC Glucose (11/27/2018 3:11 AM PST) + +---------+ + + + | Component | Value | Ref Range | Performed | Pathologist | | | | | At | Signature | + +---------+ + + + | Glucose, | 394 (H) | 70 - 109 mg/dL | [...] + | [facility] | [address] | [place] | [phone] | | [facility] | | [address] | | | - LABORATORY | | | | + + + + + POC Glucose (11/26/2018 8:35 PM PST) + +---------+ + + + | Component | Value | Ref Range | Performed | Pathologist | | | | | At | Signature | + +---------+ + + + | Glucose, | 176 (H) | 70 - 109 mg/dL | [...] [address] | [place] | [phone] | | [facility] | | [address] | | | - LABORATORY | | | | + + + + + POC Glucose (11/26/2018 4:46 PM PST) + +---------+ + + + [...] [address] | [place] | [phone] | | [facility] | | [address] | | | - LABORATORY | | | | + + + + + POC Glucose (11/26/2018 11:37 AM PST) + +---------+ + + + | Component | Value | Ref Range | Performed | Pathologist | | | | | At | Signature | + +---------+ + + + | Glucose, | 339 (H) | 70 - 109 mg/dL | [...] [address] | [place] | [phone] | | [facility] | | [address] | | | - LABORATORY | | | | + + + + + Magnesium (11/26/2018 7:01 AM PST) + +---------+ + + + | Component | Value | Ref Range | Performed | Pathologist | | | | | At | Signature | + +---------+ + + + | Magnesium | 1.5 (L) | 1.6 - 2.6 mg/dL | [facility] | | | | [...] + | [facility] | [address] | [place] | [phone] | | [facility] | | [address] | | | - LABORATORY | | | | + + + + + Basic Metabolic Panel (11/26/2018 7:01 AM PST) + +---------+ + + + | Component | Value | Ref Range | Performed | Pathologist | | | | | At | Signature | + +---------+ + + + | Na | 137 | 136 - 145 | [facility] | | | | | mmol/L | [facility] | | | | | | MEDICAL | | | | | | CENTER - | | | | | | LABORATORY | | + +---------+ + + + | K | 3.9 | 3.4 - 5.1 | [facility] | | | | | mmol/L | [facility] | | | | | | MEDICAL | | | | | | CENTER - | | | | | | LABORATORY | | + +---------+ + + + | Cl | 99 | 98 - 107 mmol/L | [facility] | | | | | | [facility] | | | | | | MEDICAL | | | | | | CENTER - | | | | | | LABORATORY | | + +---------+ + + + | CO2 | 32 (H) | 20 - 31 mmol/L | [facility] | | | | | | [facility] | | | | | | MEDICAL | | | | | | CENTER - | | | | | | LABORATORY | | + +---------+ + + + | Anion Gap | 6 | 3 - 16 mmol/L | [facility] | | | | | | [facility] | | | | | | [facility]ICAL | | | | | | CENTER - | | | | | | LABORATORY | | + +---------+ + + + | Glucose | 254 (H) | 60 - 106 mg/dL | [facility] | | | | | | [facility] | | | | | | [facility]ICAL | | | | | | CENTER - | | | | | | LABORATORY | | + +---------+ + + + | BUN | 18 | 9 - 23 mg/dL | [facility] | | | | | | [facility] | | | | | | [facility]ICAL | | | | | | CENTER - | | | | | | LABORATORY | | + +---------+ + + + | Creatinine | 1.21 | 0.70 - 1.30 | [facility] | | | | | mg/dL | [facility] | | | | | | MEDICAL | | | | | | CENTER - | | | | | | LABORATORY | | + +---------+ + + + | eGFR, | >60 | >=60 | [facility] | | | non- | | mL/min/1.73m2 | [facility] | | | [place] | | | MEDICAL | | | | | | CENTER - | | | | | | LABORATORY | | + +---------+ + + + | Calcium | 9.8 | 8.7 - 10.4 | [facility] | | | | | mg/dL | [facility] | | | | | | MEDICAL | | | | | | CENTER - | | | | | | LABORATORY | | + +---------+ + + + | BUN/Creatin | 14.9 | | [facility] | | | ine [...] [address] | [place] | [phone] | | [facility] | | [address] | | | - LABORATORY | | | | + + + + + CBC with Differential (11/26/2018 7:01 AM PST) + + + + + + | Component | Value | Ref Range | Performed | Pathologist | | | | | At | Signature | + + + + + + | White Blood | 10.1 | 4.0 - 11.0 K/uL | [facility] | | | Cells | | | [facility] | | | | | | MEDICAL | | | | | | CENTER - | | | | | | LABORATORY | | + + + + + + | Red Blood | 3.81 (L) | 4.30 - 5.70 | [facility] | | | Cells | | M/uL | [facility] | | | | | | MEDICAL | | | | | | CENTER - | | | | | | LABORATORY | | + + + + + + | Hemoglobin | 11.0 (L) | 13.5 - 18.0 | [facility] [...] + + + + | MCV | 88.2 | 83.0 - 101.0 fL | [facility] [...] + + + + | RDW-CV | 13.6 | <15.0 % | [facility] | | | | | | [facility] | | | | | | MEDICAL | | | | | | CENTER - | | | | | | LABORATORY | | + + + + + + | RDW-SD | 44.1 | 35.1 - 46.3 fL | [facility] | | | | | | [facility] | | | | | | MEDICAL | | | | | | CENTER - | | | | | | LABORATORY | | + + + + + + | Platelet | 373 | 140 - 440 K/uL | [facility] [...] + + + + | % | 62.0 | 45.0 - 82.0 % | [facility] | | | Neutrophils | | | [facility] | | | | | | MEDICAL | | | | | | CENTER - | | | | | | LABORATORY | | + + + + + + | % | 27.7 | 20.0 - 45.0 % | [facility] | | | Lymphocytes | | | [facility] | | | | | | MEDICAL | | | | | | CENTER - | | | | | | LABORATORY | | + + + + + + | % Monocytes | 6.9 | 4.0 - 12.0 % | [facility] | | | | | | [facility] | | | | | | MEDICAL | | | | | | CENTER - | | | | | | LABORATORY | | + + + + + + | % | 2.5 | 0.0 - 5.0 % | [facility] | | | Eosinophils | | | [facility] | | | | | | MEDICAL | | | | | | CENTER - | | | | | | LABORATORY | | + + + + + + | % Basophils | 0.4 | 0.0 - 1.0 % | [facility] | | | | | | [facility] | | | | | | MEDICAL | | | | | | CENTER - | | | | | | LABORATORY | | + + + + + + | % Immature | 0.5 (H)Comment: | 0.0 - 0.4 % | [facility] | | | Granulocyte | Preliminary studIes have | | [facility] | | [...] + + + + | Absolute | 2.81 | 0.60 - 3.20 | [facility] | [...] + + + + | Absolute | 0.25 | 0.00 - 0.40 | [facility] | | | Eosinophils | | K/uL | [facility] | | | | | | MEDICAL | | | | | | CENTER - | | | | | | LABORATORY | | + + + + + + | Absolute | 0.04 | 0.00 - 0.10 | [facility] | | | Basophils | | K/uL | [facility] | | | | | | MEDICAL | | | | | | CENTER - | | | | | | LABORATORY | | + + + + + + | Absolute | 0.05 (H) | 0.00 - 0.03 | [facility] [...] [address] | [place] | [phone] | | [facility] | | [address] | | | - LABORATORY | | | | + + + + + POC Glucose (11/26/2018 6:53 AM PST) + +---------+ + + + | Component | Value | Ref Range | Performed | Pathologist | | | | | At | Signature | + +---------+ + + + | Glucose, | 217 (H) | 70 - 109 mg/dL | [...] [address] | [place] | [phone] | | [facility] | | [address] | | | - LABORATORY | | | | + + + + + Drugs of Abuse, Screen, Urine (11/26/2018 6:18 AM PST) + + + + + [...] ST. | [address] | [place] | [phone] | | [facility] | | [address] | | | - LABORATORY | | | | + + + + + POC Glucose (11/26/2018 4:06 AM PST) + +---------+ + + + | Component | Value | Ref Range | Performed | Pathologist | | | | | At | Signature | + +---------+ + + + | Glucose, | 329 (H) | 70 - 109 mg/dL | [...] [address] | [place] | [phone] | | [facility] | | [address] | | | - LABORATORY | | | | + + + + + Culture, Blood (11/26/2018 2:05 AM PST) + + + + + [...] + | [facility] | [address] | [place] | [phone] | | [facility] | | [address] | | | - LABORATORY | | | | + + + + + Culture, Blood (11/26/2018 2:05 AM PST) + + + + + [...] [address] | [place] | [phone] | | [facility] | | [address] | | | - LABORATORY | | | | + + + + + Extra Green Top Tube (11/25/2018 11:00 PM PST) + +-------+ + + + [...] + | [facility] | [address] | [place] | [phone] | | [facility] | | [address] | | | - LABORATORY | | | | + + + + + Extra Blue Top Tube (11/25/2018 11:00 PM PST) + +-------+ + + + | Component | Value | Ref Range | Performed | Pathologist | | | | | At | Signature | + +-------+ + + + | Extra Blue | Done | | [facility] | | | Top Tube | | | [facility] | | [...] + | [facility] | [address] | [place] | [phone] | | [facility] | | [address] | | | - LABORATORY | | | | + + + + + Extra Lavender Top Tube (11/25/2018 11:00 PM PST) + +-------+ + + + [...] ST. | [address] | [place], [place] | [phone] | | [facility] | | [address] | | | - LABORATORY | | | | + + + + + C-Reactive Protein, High Sensitivity (11/25/2018 10:59 PM PST) + + + + + + | Component | Value | Ref Range | Performed | Pathologist | | | | | At | Signature | + + + + + + | CRP, High | 4.57 (H) | <=3.00 mg/L | [facility] | | | Sensitive | | | [facility] | | [...] [address] | [place] | [phone] | | [facility] | | [address] | | | - LABORATORY | | | | + + + + + Sedimentation Rate (11/25/2018 10:59 PM PST) + +--------+ + + + | Component | Value | Ref Range | Performed | Pathologist | | | | | At | Signature | + +--------+ + + + | Erythrocyte | 30 (H) | <15 mm/hr | [facility] | [...] + | [facility] | [address] | [place] | [phone] | | [facility] | | [address] | | | - LABORATORY | | | | + + + + + Comprehensive Metabolic Panel (11/25/2018 10:59 PM PST) + + + + + [...] + + + + | K | 3.5 | 3.5 - 5.1 | [facility] | | | | | mmol/L | [facility] | | | | | | MEDICAL | | | | | | CENTER - | | | | | | LABORATORY | | + + + + + + | Cl | 96 (L) | 98 - 109 mmol/L | [...] + + + + | Glucose | 268 (H) | 70 - 109 mg/dL | [...] + + + + | Creatinine | 1.01 | 0.60 - 1.30 | [facility] | [...] mL/min/1.73m2 | [facility] | | | [place] | RATE,ESTIMATED | | MEDICAL | | | | mL/min/1.11r0Yrfb than | | CENTER - | | [...] | 8.9 | 8.3 - 10.5 | [facility] | | | | | mg/dL | [facility] | | | | | | MEDICAL | | | | | | CENTER - | | | | | | LABORATORY | | + + + + + + | Albumin | 3.2 | 3.2 - 5.0 g/dL | [facility] | | | | | | [facility] | | | | | | MEDICAL | | | | | | CENTER - | | | | | | LABORATORY | | + + + + + + | Bilirubin | 0.4Comment: This is an | 0.1 - 1.5 [...] + + + + | Total | 6.6 | 6.0 - 7.8 g/dL | [facility] | | | Protein | | | [facility] | | | | | | MEDICAL | | | | | | CENTER - | | | | | | LABORATORY | | + + + + + + | AST | 20Comment: This is an | 10 - 42 [...] + + + + | ALT | 16Comment: This is an | 6 - 45 [...] + + + + | Alkaline | 114 (H)Comment: This is | 40 - 110 U/L | [facility] | | | Phosphatase | an appended report. | | [facility] | | | | These results have been | | MEDICAL | | | | appended to a previously | | CENTER - | | | | preliminary verified | | LABORATORY | | | | report. | | | | + + + + + + | Globulin | 3.4 | 2.1 - 3.8 g/dL | [facility] | | | | | | [facility] | | | | | | MEDICAL | | | | | | CENTER - | | | | | | LABORATORY | | + + + + + + | Albumin/Michelle | 0.9 | 0.8 - 2.0 | [facility] | | | bulin Ratio | | | [facility] | | | | | | MEDICAL | | | | | | CENTER - | | | | | | LABORATORY | | + + + + + + | BUN/Creatin | 13.9 | | [facility] | | | ine [...] + | [facility] | [address] | [place] | [phone] | | [facility] | | [address] | | | - LABORATORY | | | | + + + + + CBC with Differential (11/25/2018 10:59 PM PST) + + + + + + | Component | Value | Ref Range | Performed | Pathologist | | | | | At | Signature | + + + + + + | White Blood | 9.5 | 4.0 - 11.0 K/uL | [facility] | | | Cells | | | [facility] | | | | | | MEDICAL | | | | | | CENTER - | | | | | | LABORATORY | | + + + + + + | Red Blood | 3.92 (L) | 4.30 - 5.70 | [facility] | | | Cells | | M/uL | [facility] | | | | | | MEDICAL | | | | | | CENTER - | | | | | | LABORATORY | | + + + + + + | Hemoglobin | 11.1 (L) | 13.5 - 18.0 | [facility] | | | | | g/dL | [facility] | | | | | | MEDICAL | | | | | | CENTER - | | | | | | LABORATORY | | + + + + + + | Hematocrit | 34.7 (L) | 40.0 - 51.0 % | [facility] | | | | | | [facility] | | | | | | MEDICAL | | | | | | CENTER - | | | | | | LABORATORY | | + + + + + + | MCV | 88.5 | 83.0 - 101.0 fL | [facility] [...] + + + + | MCHC | 32.0 | 32.0 - 36.0 | [facility] | | | | | g/dL | [facility] | | | | | | MEDICAL | | | | | | CENTER - | | | | | | LABORATORY | | + + + + + + | RDW-CV | 13.5 | <15.0 % | [facility] | | | | | | [facility] | | | | | | MEDICAL | | | | | | CENTER - | | | | | | LABORATORY | | + + + + + + | RDW-SD | 43.8 | 35.1 - 46.3 fL | [facility] | | | | | | [facility] | | | | | | MEDICAL | | | | | | CENTER - | | | | | | LABORATORY | | + + + + + + | Platelet | 387 | 140 - 440 K/uL | [facility] [...] + + + + | % | 71.0 | 45.0 - 82.0 % | [facility] | | | Neutrophils | | | [facility] | | | | | | MEDICAL | | | | | | CENTER - | | | | | | LABORATORY | | + + + + + + | % | 19.0 (L) | 20.0 - 45.0 % | [facility] | | | Lymphocytes | | | [facility] | | | | | | MEDICAL | | | | | | CENTER - | | | | | | LABORATORY | | + + + + + + | % Monocytes | 6.9 | 4.0 - 12.0 % | [facility] | | | | | | [facility] | | | | | | MEDICAL | | | | | | CENTER - | | | | | | LABORATORY | | + + + + + + | % | 2.2 | 0.0 - 5.0 % | [facility] | | | Eosinophils | | | [facility] | | | | | | MEDICAL | | | | | | CENTER - | | | | | | LABORATORY | | + + + + + + | % Basophils | 0.4 | 0.0 - 1.0 % | [facility] | | | | | | [facility] | | | | | | MEDICAL | | | | | | CENTER - | | | | | | LABORATORY | | + + + + + + | % Immature | 0.5 (H)Comment: | 0.0 - 0.4 % | [...] + + + + | Absolute | 6.76 | 1.80 - 8.50 | [facility] | | | Neutrophils | | K/uL | [facility] | | | | | | MEDICAL | | | | | | CENTER - | | | | | | LABORATORY | | + + + + + + | Absolute | 1.81 | 0.60 - 3.20 | [facility] | [...] + + + + | Absolute | 0.21 | 0.00 - 0.40 | [facility] | | | Eosinophils | | K/uL | [facility] | | | | | | MEDICAL | | | | | | CENTER - | | | | | | LABORATORY | | + + + + + + | Absolute | 0.04 | 0.00 - 0.10 | [facility] | | | Basophils | | K/uL | [facility] | | | | | | MEDICAL | | | | | | CENTER - | | | | | | LABORATORY | | + + + + + + | Absolute | 0.05 (H) | 0.00 - 0.03 | [facility] [...] ST[facility] | [address] | [place], [place] | [phone] | | [facility] | | [address] | | | - LABORATORY | | | | + + + + + documented in this encounter Visit Diagnoses + + | Diagnosis | + + | Chronic osteomyelitis of toe of right foot ([facility]) - Primary | + + | Opiate overdose, accidental or unintentional, initial encounter ([facility]) | + + | Subacute osteomyelitis of right foot ([facility]) | + + | Diabetes mellitus type II, non insulin dependent ([facility]) Type II or unspecified type | | diabetes mellitus without mention of complication, not stated as uncontrolled | + + | Uncomplicated opioid dependence ([facility]) Opioid type dependence, unspecified | + + | Insulin dependent diabetes mellitus Type II or unspecified type diabetes mellitus | | without mention of complication, not stated as uncontrolled | + + | Mixed, or nondependent drug abuse Other, mixed, or unspecified nondependent drug | | abuse, unspecified | + + | Smoker - Daily Tobacco use disorder | + + | Hypomagnesemia Disorders of magnesium metabolism | + + documented in this encounter Administered Medications + +--------+ +--------+------+------+ | Medication Order | MAR | Action | Dose | Rate | Site | | | Action | Date | | | | + +--------+ +--------+------+------+ | acetaminophen (TYLENOL) tablet | Given | 11/28/19 | 650 mg | | | | 650 mg 650 mg, Oral, EVERY 4 | | 19 10:57 | | | | | HOURS PRN, Pain, or fever >= 38.6 | | PM PST | | | | | C (101.5 F), Starting Fri11/26/18 | | | | | | | at 0244 | | | | | | + +--------+ +--------+------+------+ +---+---+ | | | +---+---+ + +-------+ +-------+---+---+ | amphetamine-dextroamphetamine | Given | 11/29/19 | 15 mg | | | | (ADDERALL) tablet 15 mg 15 mg, | | 19 8:48 | | | | | Oral, 2 TIMES DAILY, First dose | | AM PST | | | | | on Свет[place]ан[place] 11/26/18 at 0900 | | | | | | + +-------+ +-------+---+---+ +-------+ +-------+---+---+ | Given | 11/28/19 | 15 mg | | | | | 19 9:05 | | | | | | PM PST | | | | +-------+ +-------+---+---+ | Given | 11/28/19 | 15 mg | | | | | 19 8:56 | | | | | | AM PST | | | | +-------+ +-------+---+---+ +---+---+ | | | +---+---+ + +-------+ +-------+---+---+ | atorvaSTATin (LIPITOR) tablet | Given | 11/29/19 | 40 mg | | | | 40 mg 40 mg, Oral, DAILY, First | | 19 8:48 | | | | | dose on [place]вет[place] 11/26/18 at 0900 | | AM PST | | | | + +-------+ +-------+---+---+ +-------+ +-------+---+---+ | Given | 11/28/19 | 40 mg | | | | | 19 8:55 | | | | | | AM PST | | | | +-------+ +-------+---+---+ | Given | 11/27/19 | 40 mg | | | | | 19 9:27 | | | | | | AM PST | | | | +-------+ +-------+---+---+ +---+---+ | | | +---+---+ + +---------+ +-----+-------+---+ | cefTRIAXone (ROCEPHIN) 2 g in | New Bag | 11/29/19 | 2 g | 100 | | | sodium chloride 0.9% 50 mL IVPB | | 19 8:57 | | mL/hr | | | 2 g, Intravenous, Administer over | | AM PST | | | | | 30 Minutes, EVERY 24 HOURS | | | | | | | (Daily), First dose on Fri11/27/18 | | | | | | | at 1415, Activate system and mix | | | | | | | before use., Indications: | | | | | | | Osteomyelitis | | | | | | + +---------+ +-----+-------+---+ +---------+ +-----+-------+---+ | New Bag | 11/28/19 | 2 g | 100 | | | | 19 2:16 | | mL/hr | | | | PM PST | | | | +---------+ +-----+-------+---+ +---+---+ | | | +---+---+ + +-------+ +--------+---+---+ | clindamycin (CLEOCIN) capsule | Given | 11/29/19 | 600 mg | | | | 600 mg 600 mg, Oral, EVERY 8 | | 19 6:00 | | | | | HOURS (3 times per day), First | | AM PST | | | | | dose (after last modification) on | | | | | | | 11/27/18 at 1430, Indications: | | | | | | | Osteomyelitis | | | | | | + +-------+ +--------+---+---+ +-------+ +--------+---+---+ | Given | 11/28/19 | 600 mg | | | | | 19 9:05 | | | | | | PM PST | | | | +-------+ +--------+---+---+ +---+---+ | | | +---+---+ + +-------+ +-------+---+---+ | cyclobenzaprine (FLEXERIL) | Given | 11/29/19 | 10 mg | | | | tablet 10 mg 10 mg, Oral, | | 19 8:48 | | | | | TIMES DAILY, First dose on Fri | | AM PST | | | | | 11/26/18 at 0900, Hold for | | | | | | | sedation, rr<10, | | | | | | + +-------+ +-------+---+---+ +-------+ +-------+---+---+ | Given | 11/28/19 | 10 mg | | | | | 19 9:05 | | | | | | PM PST | | | | +-------+ +-------+---+---+ | Given | 11/28/19 | 10 mg | | | | | 19 1:21 | | | | | | PM PST | | | | +-------+ +-------+---+---+ + +---+ | | | + +---+ | dextrose 50% injection 12.5 g | | | 12.5 g, Intravenous, PRN, Low | | | Blood Sugar, Starting [facility] 11/26/18 | | | at 0244 | | + +---+ | | | + +---+ + +-------+ +-------+---+ + | enoxaparin (LOVENOX) 40 mg/0.4 | Given | 11/29/19 | 40 mg | | Abdomen- | | mL injection 40 mg 40 mg, | | 19 8:48 | | | LLQ | | Subcutaneous, EVERY 24 HOURS | | AM PST | | | | | (Daily), First dose on [facility] 11/26/18 | | | | | | | at 0900 | | | | | | + +-------+ +-------+---+ + +-------+ +-------+---+ + | Given | 11/28/19 | 40 mg | | Abdomen- | | | 19 8:57 | | | RLQ | | | AM PST | | | | +-------+ +-------+---+ + | Given | 11/27/19 | 40 mg | | Abdomen- | | | 19 9:28 | | | RLQ | | | AM PST | | | | +-------+ +-------+---+ + +---+---+ | | | +---+---+ + +-------+ + +---+ + | insulin glargine (LANTUS | Given | 11/29/19 | 54 Units | | Arm-Righ | | SOLOSTAR) injection (pen) 54 | | 19 8:49 | | | t Upper | | Units 54 Units, Subcutaneous, 2 | | AM PST | | | | | TIMES DAILY, First dose on [facility] | | | | | | | 11/26/18 at 0900, For subcutaneous | | | | | | | use only. Basal (long acting) | | | | | | | insulin., | | | | | | + +-------+ + +---+ + +-------+ + +---+ + | Given | 11/28/19 | 54 Units | | Arm-Left | | | 19 9:10 | | | Upper | | | PM PST | | | | +-------+ + +---+ + | Given | 11/28/19 | 54 Units | | Arm-Righ | | | 19 8:30 | | | t Upper | | | AM PST | | | | +-------+ + +---+ + +---+---+ | | | +---+---+ + +-------+ +---------+---+ + | insulin lispro (humaLOG | Given | 11/29/19 | 6 Units | | Arm-Left | | KWIKPEN) injection (pen) 0-18 | | 19 12:03 | | | Upper | | Units 0-18 Units, Subcutaneous, | | PM PST | | | | | 4 TIMES DAILY WITH MEALS & | | | | | | | NIGHTLY, First dose on [facility] 11/26/18 | | | | | | | at 1700, CORRECTION SCALE: | | | | | | | Blood Glucose (BG) < 150: | | | | | | | None BG 150-200: DAY: 3 | | | | | | | units. NIGHT: 0 units BG | | | | | | | 201-250: DAY: 6 units. NIGHT: | | | | | | | 3 units BG 251-300: DAY: 9 | | | | | | | units. NIGHT: 6 units BG | | | | | | | 301-350: DAY: 12 units. NIGHT: 9 | | | | | | | units BG 351-400: DAY: 15 | | | | | | | units. NIGHT: 12 units BG > | | | | | | | 400 : DAY: 18 units. NIGHT: | | | | | | | 15 units | | | | | | | AND CALL PROVIDER Use DAY DOSE | | | | | | | for doses scheduled: AC, | | | | | | | NPO, Daytime [id number] Use NIGHT | | | | | | | DOSE for doses scheduled: | | | | | | | HS, 3AM, Nighttime [id number], | | | | | | + +-------+ +---------+---+ + +-------+ + +---+ + | Given | 11/29/19 | 18 Units | | Arm-Righ | | | 19 8:50 | | | t Upper | | | AM PST | | | | +-------+ + +---+ + | Given | 11/28/19 | 12 Units | | Arm-Righ | | | 19 9:08 | | | t Upper | | | PM PST | | | | +-------+ + +---+ + +---+---+ | | | +---+---+ + +-------+ +---------+---+ + | insulin lispro (humaLOG | Given | 11/27/19 | 4 Units | | Arm-Left | | KWIKPEN) injection (pen) 0-6 | | 19 11:49 | | | Upper | | Units 0-6 Units, Subcutaneous, 4 | | AM PST | | | | | TIMES DAILY WITH MEALS & | | | | | | | NIGHTLY, First dose on [facility]вет[facility] 11/26/18 | | | | | | | at 0800, CORRECTION SCALE: | | | | | | | Blood Glucose (BG) < 150: | | | | | | | None BG 150-200: DAY: 1 | | | | | | | units. NIGHT: 0 units BG | | | | | | | 201-250: DAY: 2 units. NIGHT: 1 | | | | | | | units BG 251-300: DAY: 3 units. | | | | | | | NIGHT: 2 units BG 301-350: | | | | | | | DAY: 4 units. NIGHT: 3 units | | | | | | | BG 351-400: DAY: 5 units. NIGHT: | | | | | | | 4 units BG > 400 : DAY: | | | | | | | 6 units. NIGHT: 5 units | | | | | | | AND CALL | | | | | | | PROVIDER Use DAY DOSE for doses | | | | | | | scheduled: AC, NPO, Daytime | | | | | | | [id number] Use NIGHT DOSE for | | | | | | | doses scheduled: HS, 3AM, | | | | | | | Nighttime [id number], | | | | | | + +-------+ +---------+---+ + +-------+ +---------+---+ + | Given | 11/27/19 | 3 Units | | Arm-Left | | | 19 8:30 | | | Upper | | | AM PST | | | | +-------+ +---------+---+ + +---+---+ | | | +---+---+ + +-------+ + +---+ + | insulin lispro (humaLOG | Given | 11/28/19 | 12 Units | | Arm-Righ | | KWIKPEN) injection (pen) 12 Units | | 19 3:34 | | | t Upper | | 12 Units, Subcutaneous, ONCE, | | AM PST | | | | | 11/27/18 at 0345, For 1 dose | | | | | | + +-------+ + +---+ + +---+---+ | | | +---+---+ + +-------+ +---------+---+ + | insulin lispro (humaLOG | Given | 11/27/19 | 3 Units | | Abdomen- | | KWIKPEN) injection (pen) 3 Units | | 19 4:55 | | | RLQ | | 3 Units, Subcutaneous, ONCE, Свет[facility]ана | | AM PST | | | | | 11/26/18 at 0445, For 1 dose | | | | | | + +-------+ +---------+---+ + +---+---+ | | | +---+---+ + +-------+ +-------+---+---+ | lisinopril (PRINIVIL, ZESTRIL) | Given | 11/29/19 | 10 mg | | | | tablet 10 mg 10 mg, Oral, DAILY, | | 19 8:48 | | | | | First dose on Светлана 11/26/18 at | | AM PST | | | | | 0900, Hold for sbp<100, | | | | | | + +-------+ +-------+---+---+ +-------+ +-------+---+---+ | Given | 11/28/19 | 10 mg | | | | | 19 8:56 | | | | | | AM PST | | | | +-------+ +-------+---+---+ | Given | 11/27/19 | 10 mg | | | | | 19 9:28 | | | | | | AM PST | | | | +-------+ +-------+---+---+ +---+---+ | | | +---+---+ + +-------+ +--------+---+---+ | magnesium oxide (MAG-OX) tablet | Given | 11/29/19 | 400 mg | | | | 400 mg 400 mg, Oral, DAILY, | | 19 8:48 | | | | | First dose on [facility] 11/26/18 at 1400 | | AM PST | | | | + +-------+ +--------+---+---+ +-------+ +--------+---+---+ | Given | 11/28/19 | 400 mg | | | | | 19 8:56 | | | | | | AM PST | | | | +-------+ +--------+---+---+ | Given | 11/27/19 | 400 mg | | | | | 19 2:20 | | | | | | PM PST | | | | +-------+ +--------+---+---+ +---+---+ | | | +---+---+ + +---------+ +-----+ +---+ | magnesium sulfate 2 g/50 mL | New Bag | 11/27/19 | 2 g | 25 mL/hr | | | IVPB 2 g 2 g, Intravenous, | | 19 2:20 | | | | | Administer over 120 Minutes, | | PM PST | | | | | ONCE, [facility] 11/26/18 at 1400, For 1 | | | | | | | dose, Maximum recommended | | | | | | | infusion rate = 1 gram/hour., | | | | | | + +---------+ +-----+ +---+ +---+---+ | | | +---+---+ + +---------+ +-----+ +---+ | magnesium sulfate 2 g/50 mL | New Bag | 11/28/19 | 2 g | 25 mL/hr | | | IVPB 2 g 2 g, Intravenous, | | 19 9:45 | | | | | Administer over 120 Minutes, | | AM PST | | | | | ONCE, 11/27/18 at 0930, For 1 | | | | | | | dose, Maximum recommended | | | | | | | infusion rate = 1 gram/hour., | | | | | | + +---------+ +-----+ +---+ +---+---+ | | | +---+---+ + +-------+ +-------+---+---+ | methadone tablet 30 mg 30 mg, | Given | 11/29/19 | 30 mg | | | | Oral, EVERY 8 HOURS (3 times per | | 19 6:00 | | | | | day), First dose on [facility]вет[facility]ан[facility] 11/26/18 at | | AM PST | | | | | 1415 | | | | | | + +-------+ +-------+---+---+ +-------+ +-------+---+---+ | Given | 11/28/19 | 30 mg | | | | | 19 9:05 | | | | | | PM PST | | | | +-------+ +-------+---+---+ | Given | 11/28/19 | 30 mg | | | | | 19 1:21 | | | | | | PM PST | | | | +-------+ +-------+---+---+ + +---+ | | | + +---+ | naloxone (NARCAN) 0.4 mg/mL | | | injection 0.4 mg 0.4 mg, | | | Intravenous, PRN, Apnea, | | | Decreased Responsiveness, | | | Starting 11/27/18 at 1136 | | + +---+ | | | + +---+ + +-------+ +------+---+---+ | nicotine polacrilex (COMMIT) | Given | 11/27/19 | 2 mg | | | | lozenge 2 mg 2 mg, Oral, PRN, | | 19 6:25 | | | | | Nicotine Craving, Starting Свет[facility] | | PM PST | | | | | 11/26/18 at 1811 | | | | | | + +-------+ +------+---+---+ +---+---+ | | | +---+---+ + +-------+ +------+---+---+ | ondansetron (ZOFRAN) injection | Given | 11/27/19 | 4 mg | | | | 4 mg 4 mg, Intravenous, EVERY 6 | | 19 9:40 | | | | | HOURS PRN, Nausea, Vomiting, | | AM PST | | | | | Starting Свет[facility] 11/26/18 at 0244, | | | | | | | First line agent, | | | | | | + +-------+ +------+---+---+ +---+---+ | | | +---+---+ + +-------+ +-------+---+---+ | oxyCODONE (ROXICODONE) | Given | 11/29/19 | 30 mg | | | | immediate release tablet 30 mg | | 19 9:33 | | | | | 30 mg, Oral, EVERY 6 HOURS PRN, | | AM PST | | | | | Pain, hold for sedation, rr<10, | | | | | | | Starting 11/28/18 at 0122 | | | | | | + +-------+ +-------+---+---+ +-------+ +-------+---+---+ | Given | 11/29/19 | 30 mg | | | | | 19 1:36 | | | | | | AM PST | | | | +-------+ +-------+---+---+ +---+---+ | | | +---+---+ + +-------+ +-------+---+---+ | pantoprazole (PROTONIX) DR | Given | 11/29/19 | 40 mg | | | | tablet 40 mg 40 mg, Oral, DAILY | | 19 5:59 | | | | | BEFORE BREAKFAST, First dose on | | AM PST | | | | | Свет[facility] 11/26/18 at 0730, Indication: | | | | | | | GERD | | | | | | + +-------+ +-------+---+---+ +-------+ +-------+---+---+ | Given | 11/27/19 | 40 mg | | | | | 19 6:54 | | | | | | AM PST | | | | +-------+ +-------+---+---+ +---+---+ | | | +---+---+ + +-------+ +--------+---+---+ | pregabalin (LYRICA) capsule 100 | Given | 11/29/19 | 100 mg | | | | mg 100 mg, Oral, 2 TIMES DAILY | | 19 8:47 | | | | | 0800 & 1800, First dose on [facility] | | AM PST | | | | | 11/26/18 at 0800 | | | | | | + +-------+ +--------+---+---+ +-------+ +--------+---+---+ | Given | 11/28/19 | 100 mg | | | | | 19 5:36 | | | | | | PM PST | | | | +-------+ +--------+---+---+ | Given | 11/28/19 | 100 mg | | | | | 19 8:56 | | | | | | AM PST | | | | +-------+ +--------+---+---+ +---+---+ | | | +---+---+ + +-------+ +--------+---+---+ | tamsulosin (FLOMAX) capsule 0.4 | Given | 11/29/19 | 0.4 mg | | | | mg 0.4 mg, Oral, DAILY AFTER | | 19 8:48 | | | | | BREAKFAST, First dose on [facility] | | AM PST | | | | | 11/26/18 at 0900, May open capsule | | [...] +-------+ +--------+---+---+ +-------+ +--------+---+---+ | Given | 11/28/19 | 0.4 mg | | | | | 19 8:55 | | | | | | AM PST | | | | +-------+ +--------+---+---+ | Given | 11/27/19 | 0.4 mg | | | | | 19 9:27 | | | | | | AM PST | | | | +-------+ +--------+---+---+ +---+---+ | | | +---+---+ + +-------+ +---+---+---+ | trolamine salicylate | Given | 11/27/19 | | | | | (ASPERCREME) 10% cream Topical, | | 19 11:17 | | | | | 4 TIMES DAILY PRN, Pain, Starting | | AM PST | | | | | [facility] 11/26/18 at 0244 | | | | | | + +-------+ +---+---+---+ +---+---+ | | | +---+---+ + +---------+ + +--------+---+ | vancomycin 1,500 mg in sodium | New Bag | 11/28/19 | 1,500 mg | 176.7 | | | chloride 0.9% 250 mL IVPB 1,500 | | 19 3:07 | | mL/hr | | | mg (rounded from 1,410 mg = 15 | | AM PST | | | | | mg/kg | | | | | | | 94 kg), Intravenous, Administer | | | | | | | over 90 Minutes, EVERY 12 HOURS | | | | | | | INTERVAL, First dose on Fri | | | | | | | 11/26/18 at 1530, Keep in | | | | | | | refrigerator., Indications: | | | | | | | Osteomyelitis | | | | | | + +---------+ + +--------+---+ +---------+ + +--------+---+ | New Bag | 11/27/19 | 1,500 mg | 176.7 | | | | 19 4:30 | | mL/hr | | | | PM PST | | | | +---------+ + +--------+---+ +---+---+ | | | +---+---+ + +---------+ +-----+-------+---+ | vancomycin 2 g in sodium | New Bag | 11/27/19 | 2 g | 250 | | | chloride 0.9% 500 mL IVPB 2 g, | | 19 3:40 | | mL/hr | | | Intravenous, Administer over 120 | | AM PST | | | | | Minutes, ONCE, [facility] 11/26/18 at | | | | | | | 0315, For 1 dose, Pharmacist may | | | | | | | adjust Keep in refrigerator., | | | | | | | Indications: osteomyelitis | | | | | | + +---------+ +-----+-------+---+ +---+---+ | | | +---+---+ documented in this encounter
--- OUTSIDE RECORDS SUMMARY | ~2020-06-16 | XMS | Encounter Summary ---
Demographics + + + | Address | [address] | | | [place] [address] | + + + | Home Phone | | + + + | Preferred Language | Unknown | + + + | Marital Status | | + + + | Muslim Affiliation | Unknown | + + + [...] [place], | | | | | [place] [address] | | + + + + + Care Team Providers + +------+ + | Care Seed Yeast Operator Name | Role | Phone | + +------+ + PCP | Unavailable | + +------+ + Encounter Details +--------+ + + + + | Date | Type | Department | Care Team | Description | +--------+ + + + + | 08/05/ | [facility] | Marty Wood | Preop testing; | | 2016 | Encounter | [facility] | MD [address] [facility] | Hyperlipidemia, | | | | [address] [place] | [place], [place] | unspecified | | | | [place], [place] | [phone] | hyperlipidemia type; | | | | [address] | | Chronic obstructive | | | | [phone] | | pulmonary disease, | | | | | | unspecified COPD | | | | | | type (HCC); | | | | | | Post-traumatic | | | | | | osteoarthritis of | | | | | | left elbow; Disorder | | | | | | of bursae of | | | | | | shoulder region, | | | | | | left; Fibroma | +--------+ + + + + Social [...] orally 3 | 90 | 2 | // | | | (FLEXERIL) 10 mg | [...] | 06/27/20 | | | test strips (Flocasts | | each | | 15 | [...] + + | HEMOGLOBIN | Routin | 08/05/2016 | Preop testing | Results for this | | | e | 11:06 AM | Hyperlipidemia, | procedure are in [...] [address] | [place] | [phone] | | [facility] | | [address] | | | - LABORATORY | | [...] | | arm | + + | Disorder of bursae of shoulder region, left | + + | Fibroma Other benign neoplasm of connective and other soft tissue of unspecified site | + + documented in this encounter"
--- OUTSIDE RECORDS SUMMARY | ~2020-06-16 | XMS | Encounter Summary ---
Demographics + + + | Address | [address] | | | [place] [address] | + + + | Home Phone | | + + + | Preferred Language | Unknown | + + + | Marital Status | | + + + | Presybeterian Affiliation | Unknown | + + + | Race | White | + + + | Ethnic Group | Not or | + + + Author + + + | Author | [facility] | | | and [place] | + + + | Organization | [facility] | | [...] [place], | | | | | [place] [address] | | + + + + + Care Team Providers + +------+ + | Care Mercerizer Machine Operator Name | Role | Phone | + +------+ + | Dimitri Fischer MD | PCP | | + +------+ + Reason for Visit + + + | Reason | Comments | + + + | Pre-op Exam | left elbow joint explortation and bilateral shoulder injection | | | dos 05/14/17 | + + + Encounter Details +--------+---------+ + + + | Date | Type | Department | Care Team | Description | +--------+---------+ + + + | 05/08/ | Office | [facility] | Marty Wood | Preop testing | | 2017 | Visit | ORTHOPEDIC SURGERY | MD [address] | (Primary Dx); | | | | [address] | [place] | Hyperlipidemia, | | | | [place] | [id number] | unspecified | | | | [address] | | hyperlipidemia type; | | | | [phone] | | Bilateral shoulder | | | | | | pain, unspecified | | | | | | chronicity; | | | | | | Post-traumatic | | | | | | osteoarthritis of | | | | | | left elbow; Lateral | | | | | | epicondylitis of | | | | | | left elbow; Left | | | | | | elbow pain | +--------+---------+ + + + Social [...] + + + | Blood Pressure | 109/57 | 05/08/2017 2:51 PM | | | | | PDT | | + + + + + | Pulse | 79 | 05/08/2017 2:51 PM | | | | | PDT | | + + + + + | Temperature | 36.9 C (98.4 F) | 05/08/2017 2:51 PM | | | | | PDT | | + + + + + | Respiratory Rate | 24 | 05/08/2017 2:51 PM | | | | | PDT | | + + + + + | Oxygen Saturation | 94% | 05/08/2017 2:51 PM | r/a | | | | PDT | | + + + + + | Inhaled Oxygen | - | - | | | Concentration | | | | + + + + + | Weight | 99.8 kg (220 lb) | 05/08/2017 2:51 PM | | | | | PDT | | + + + + + | Height | 182.9 cm (6') | 05/08/2017 2:51 PM | | | | | PDT | | + + + + + | Body Mass Index | 29.84 | 05/08/2017 2:51 PM | | | | | PDT | | + + + + + documented in this encounter Progress Notes Ashley Tovar LPN - 05/08/2017 2:30 PM PDTFormatting of this note might be different fr om the original. History of present illness: Cecilio is a 47 y.o. male who presents to our clinic today for a preop examination. 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 Osteoporosis PONV (postoperative nausea and vomiting) Seizure ([facility]) Testosterone deficiency Vitamin D deficiency Past Surgical History: Procedure Laterality Date ELBOW SURGERY Left 11/15/2015 Procedure: Left Lateral Epicondylar Release & Injection of Left Elbow Joint ; Surgeon: Janet Wood MD; Location: [facility] MAIN OR KNEE ARTHROSCOPY Right 12/05/2014 Procedure: Right Knee Arthroscopy with Partial Medial Menisectomy and Medial- Femoral Tay droplasty; Surgeon: Marty Wood MD; Location: [facility] MAIN OR MANDIBLE SURGERY spinal [...] are negative except for those checked below. ASHLEY TOVAR Eyes: [x] Double vision [x] Glasses/contacts [x] [...] on filedocumented as of this encounter Results Hemoglobin (05/08/2017 3:57 PM PDT) + + + + + + | Component | Value | Ref Range | Performed | Pathologist | | | | | At | Signature | + + + + + + | Hemoglobin | 10.9 (L) | 13.5 - 18.0 | [facility] [address] | [place] | [phone] | | [facility] | | [address] | | | - LABORATORY | | | | + + + + + documented in this encounter Visit Diagnoses + + | Diagnosis | + + | Preop testing - Primary Preoperative examination, unspecified | + + | Hyperlipidemia, unspecified hyperlipidemia type | + + | Bilateral shoulder pain, unspecified chronicity | + + | Post-traumatic osteoarthritis of left elbow Secondary localized osteoarthrosis, upper | | arm | + + | Lateral epicondylitis of left elbow Lateral epicondylitis of elbow | + + | Left elbow pain Pain in joint, upper arm | + + documented in this encounter"
--- OUTSIDE RECORDS SUMMARY | ~2020-06-16 | XMS | Encounter Summary ---
Demographics + + + | Address | [address] | | | [place] [address] | + + + | Home Phone | | + + + | Preferred Language | Unknown | + + + | Marital Status | | + + + | Jain Affiliation | Unknown | + + + | Race | White | + + + | Ethnic Group | Not or | + + + Author + + + | Author | [facility] | | | and [place] | + + + | Organization | [facility] | | | [...] [place], | | | | | [place] [address] | | + + + + + Care Team Providers + +------+ + | Care Claims Correspondence Clerk Name | Role | Phone | + +------+ + | No, Physician | PCP | Unavailable | + +------+ + Reason for Visit + + + | Reason | Comments | + + + | Vascular Access | | | Problem | | + + + | Altered Mental | | | Status | | + + + Auth/Cert +--------+--------+ + + + + | Status | Reason | Specialty | Diagnoses / | Referred By | Referred To | | | | | Procedures | Contact | Contact | +--------+--------+ + + + + | | | | Diagnoses | | | | | | | CAYLA (acute | | | | | | | kidney | | | | | | | injury) | | | | | | | (HCC) | | | | | | | Noncomplianc | | | | | | | e Acute | | | | | | | respiratory | | | | | | | failure with | | | | | | | hypoxia | | | | | | | (HCC) | | | | | | | Hypotensive | | | | | | | episode | | | | | | | Infection of | | | | | | | | | | | | | | peripherally | | | | | | | inserted | | | | | | | central | | | | | | | venous | | | | | | | catheter | | | | | | | (PICC), | | | | | | | [...] | | | | | | | foot, | | | | | | | unspecified | | | | | | | type (HCC) | | | | | | | Displacement | | | | | | | of | | | | | | | peripherally | | | | | | | inserted | | | | | | | central | | | | | | | venous | | | | | | | catheter | | | | | | | (PICC) (HCC) | | | | | | | | | | | | | | POSSIBLE | | | | | | | Infection of | | | | | | | | | | | | | | peripherally | | | | | | | inserted | | | | | | | central | | | | | | | venous | | | | | | | catheter | | | | | | | (PICC), | | | | | | | initial | | | | | | | encounter | | | | | | | | | | +--------+--------+ + + + + Encounter Details +--------+ + + + + | Date | Type | Department | Care Team | Description | +--------+ + + + + | 09/04/ | Hospital | [facility] | Serjio Riley, | Opiate overdose, | | 2018 - | Encounter | [facility] | [address] | accidental or | | | | [address] | [place] | unintentional, | | 09/07/ | | [place] [address] | [id number] | initial encounter | | 2018 | | [phone] | | (HCC) (Primary Dx); | | | | | Mamta Pierre MD | Acute respiratory | | | | | [address] | failure with hypoxia | | | | | [place] | (HCC); Hypotensive | | | | | [id number] | episode; | | | | | | Noncompliance; | | | | | Monica, Gloria | POSSIBLE Infection | | | | | MD Milagros [address] | of peripherally | | | | | [facility], | inserted central | | | | | [place] [address] | venous catheter | | | | | [phone] | (PICC), initial | | | | | | encounter; CAYLA | | | | | | (acute kidney | | | | | | injury) ([facility]); | | | | | | Displacement of | | | | | | peripherally | | | | | | inserted central | | | | | | venous catheter | | | | | | (PICC) (HCC); | | | | | | Osteomyelitis of | | | | | | right foot, | | | | | | unspecified type | | | | | | (HCC); Type 2 | | | | | | diabetes mellitus | | | | | | with other specified | | | | | | complication, | | | | | | without long-term | | | | | | current use of | | | | | | insulin ([facility]); | | | | | | Uncomplicated opioid | | | | | | dependence (HCC) | +--------+ + + + + [...] + + + | Blood Pressure | 133/73 | 09/07/2018 7:22 AM | | | | | PST | | + + + + + | Pulse | 85 | 09/07/2018 7:22 AM | | | | | PST | | + + + + + | Temperature | 36.8 C (98.3 F) | 09/07/2018 7:22 AM | | | | | PST | | + + + + + | Respiratory Rate | 16 | 09/07/2018 7:22 AM | | | | | PST | | + + + + + | Oxygen Saturation | 99% | 09/07/2018 7:22 AM | | | | | PST | | + + + + + | Inhaled Oxygen | - | - | | | Concentration | | | | + + + + + | Weight | 89.5 kg (197 lb 5 | 09/06/2018 4:43 AM | | | | oz) | PST | | + + + + + | Height | 185.4 cm (6' 1") | 09/04/2018 4:00 PM | | | | | PST | | + + + + + | Body Mass Index | 26.03 | 09/04/2018 4:00 PM | | | | | PST | | + + + + + documented in this encounter Discharge Summaries Bobby Mcfarland MD - 09/07/2018 7:05 PM PST DISCHARGE SUMMARY Patient Name: Cecilio Arias : 1970 Date of Admission: 09/04/2018 Date of Discharge: 09/07/2018 Admitting Physician: Mamta Pierre MD Discharging Physician: Bobby Mcfarland MD Primary Care Provider: No Physician on file Discharge Diagnoses: Active Problems: Opioid overdose, accidental or unintentional, initial encounter CAYLA (acute kidney injury) Displacement of peripherally inserted central venous catheter (PICC) Resolved Problems: * No resolved hospital problems. [...] of peripherally inserted central venous catheter (PICC) Consultants: none Procedures: Venous duplex echocardiogram Reason for Admission/Hospital Course: Please refer to the H&P for full details. In short, this is a 48yoM w/ hx of NIDDM, chroni c pain on methadone, R 1st toe osteomyelitis being treated with cefepime via PICC, who prese nted for issues with his PICC line. His states that the PICC seemed to be coming out. He has not had proper dressing changes since his discharge, but has been doing his antibiot ics as scheduled for the past 4 weeks (6 weeks planned total). He was also noted to be quit e sedated on arrival hear and apneic at times. He responded to narcan, but then became somn olent again so required narcan gtt. Patient states that he took 60mg of methadone in the AM and 70mg this evening. He is normally on 160mg total daily. He denies any other narcotic use, and he adamantly denies injecting into the PICC. He denies any fevers at home, has bee n eating and drinking well, and has been feeling well overall. His mental status improved with Narcan gtt. his CRISSY resolved with IV fluids. Patient was observed having alterations in his mental status. Repeat urine drug screen testing showed that there were not any new substances. Cefepime was continued for his osteomyelitis. Patient was scheduled to have PICC line rein serted. Patient left the hospital without notifying staff. Physical Exam: Vitals: 09/07/18 0722 BP: 133/73 Pulse: 85 Resp: 16 Temp: 36.8 C (98.3 F) Gen Edgardo - alert, cooperative and no distress Head - Normocephalic, without obvious abnormality, atraumatic Eyes - PERRL, conjunctiva/corneas clear, EOM's intact both eyes ENT - mucous membranes moist Neck - supple Lungs - CTA bilat Heart - normal rate, rhythm w/o m/r/g Abdomen - obese Normoactive bowel sounds, non-tender non-distended Extremities - no peripheral edema, no clubbing or cyanosis Skin - dry skin Code Status: Prior Disposition: Elopement from hospital Discharge Condition: unknown Follow-up Information No Physician on file . Contact information: P Studies With Pending Results: none Greater than 30 minutes were spent on discharge and coordination of post-hospital care. Electronically signed by: Bobby Mcfarland MD, 09/07/2018 19:06 [facility] documented in this enc ounter Medications at Time of Discharge + + [...] 0 | 07/09/20 | | | SYR [id number] 22G X | TESTOSTERONE TWICE A | [...] documented as of this encounter Progress Notes Naomi Peacock RN - 09/07/2018 1:21 PM PSTPatient laying in bed with SO at bedsid e. This RN went into room to offer insulin medication as ordered with second RN. Patient ask ed about "when is my PICC line going to be placed"? This RN informed patient that PICC order s are placed and will call to check time for placement. Patient then became angry and hostil e. He stated, "What the fuck! You are lying to me! Fuck you, I'm leaving". SO and patient ga thered belongings and left AMA with peripheral IV access. Patient resistive to education, ri sks, and therapeutic communication. Security was called and was notified. Charge nurse lona d Nurse Chemical Educator Olivia Karimi notified. Security reported that he met patient in ER lobby and Asked him to stop and have a nurse remove his peripheral IV on his Right forearm. Patient refused as he waved a baton (Weapon) from his belonging bag and threatened officer as he left angry saying he was not coming back . Patient was seen last walking to parking lot and driving off of premises. This RN called [place] police department per Nurse Chemical Educator recommendations to report annalise vicentepeter leaving AMA with peripheral IV. Call was transported to [place] police depart ment since patient's demographics shows he resides in [place]. Waiting on police to call back on findings. Naomi Wolf RN - 09/07/2018 9:43 AM PSTPatient rounded on this morning frequently. Appeared s leeping with SO at bedside. Patient uncooperative with nursing assessment and stated"I don't want anything from anyone until the doctor comes and talks to me" when offering his morning medications. Hospitalist paged. Electronically signed by Naomi Peacock RN at 09/07 9:45 AM PSTPathedaurdo, Gloria Linares MD - 09/06/2018 8:50 AM PSTFormatting of this note m ight be different from the original. [facility] HOSPITALIST PROGRESS NOTE Pt. Name/Age/: Cecilio Arias 48 y.o. 1970 Med. Record Number: [id number] Date of admission: 09/04/2018 Date of service: 09/06/2018 Time of service: 934 Hospital Day: 3 Hospital Course: 48yoM w/ hx of NIDDM, chronic pain on methadone, R 1st toe osteomyelitis being treated with cefepime via PICC (week 4 of 6), who presented for issues with his PICC line (concern for c oming out and dirty site); somnolent on arrival suspected 2/2 methadone (denied other narcot ic use; reported that he takes methadone 60 mg in AM and 70 mg in PM; may take as much as 16 0 mg daily); denied injecting into PICC; also hypotensive in ED SBP in 80s and BCX drawn; PI CC line removed but not sent for culture Narcan gtt discontinued on 09/05/18 but restarted briefly after pt went into the bathroom w ith his significant other for about 10 minutes and came out altered and lethargic. He denied taking anything int he bathroom but similar events have occurred when he was admitted here in the past. Became more awake and responsive later in the day 09/05. Methadone restarted at 15 mg BID 1 11/06/17 pm. Remains on cefepime. ASSESSMENT & PLAN: 1. Opiate use -methadone resumed 09/05/18 PM at 15 mg BID -monitor patient for substance use in hospital when significant other present; they should not be along together out of sight of staff 2. R 1st toe osteo -improved with abx; ESR and CRP are not elevated this admission -continuing cefepime; will need 2 more weeks and likely follow up MRI at that time. -may need transfer to LTAC to complete abx regimen; RN in ER had noted concerns that PICC l ine had not been properly cared for, and is at risk for possible infection; patient would li ke PICC replaced and to go home -follow up BCx drawn in ER on 09/04 which are currently NGTD (PICC tip not sent for culture ) -f/u ECHO results given murmur (although has been appreciated before) as PICC line not prop erly cared for and possibility that pt may have injected through PICC line 3. CAYLA -creatinine improved -on admission pt reported taking 40-50 200mg ibuprofen tablets per day since last discharge ; urine eos and serum salicylate level negative 4. RLE edema -may be 2/2 R 1st toe osteo -LE doppler to r/o DVT on 09/05 was negative 5. NIDDM -holding farxiga and metformin given CAYLA this admission -cont SSI, add glargine 9 units QAM 6. HLD -continue lipitor FEN: DM diet orderd PPx: lovenox Code: FULL, per patient wishes on admission Dispo: will need to discuss with CM concern for pt's ability to keep PICC site clean and th at he may be injecting through PICC line; will also look into whether pt could go to LTAC vs remain in hospital for duration of abx tx if no other options DVT Prophylaxis low molecular weight heparin Code Status Full Code SUBJECTIVE: No acute events overnight. Pt without complaints this morning. Laying in bed with sig other watching TV. OBJECTIVE: Vitals: Temp: 36.3 C (97.3 F), Pulse: 78, Resp: 14, BP: 116/70, SpO2 97 % on room air at flow rate 3 (placed on 3 l open mask)L/min Temp Min: 35.9 C (96.6 F) Max: 36.7 C (98.1 F) Current Weight:89.5 kg (197 lb 5 oz) Admit Weight: 82.6 kg (182 lb) Intake/Output Summary (Last 24 hours) at 09/06/18 0900 Last data filed at 09/06/18 0500 Gross per 24 hour Intake 3352 ml Output 3430 ml Net -78 ml GEN: sleepy but arousable NECK: trachea midline; no goiter CV: RRR 2/6 TREVOR PULM: CTAB ABD: soft NTND SKIN: healing R 1st toe ulcer site Telemetry: NSR Glucose, POC Date/Time Value Ref Range Status 09/06/2018 07:09 330 (H) 70 - 109 mg/dL Final 09/05/2018 20:16 206 (H) 70 - 109 mg/dL Final 09/05/2018 17:01 360 (H) 70 - 109 mg/dL Final 09/05/2018 11:36 199 (H) 70 - 109 mg/dL Final 09/05/2018 07:41 202 (H) 70 - 109 mg/dL Final 09/04/2018 21:25 229 (H) 70 - 109 mg/dL Final Inpatient Medications Scheduled Meds: amphetamine-dextroamphetamine 30 mg Oral Daily aspirin 325 mg Oral Daily atorvaSTATin 40 mg Oral Daily cefepime 2 g Intravenous 2 times per day cholecalciferol 1,000 Units Oral Daily enoxaparin 40 mg Subcutaneous Daily insulin glargine 0.1 Units/kg/day Subcutaneous QAM insulin lispro 0-6 Units Subcutaneous 4x Daily WC and HS methadone 15 mg Oral 2 times per day pantoprazole 40 mg Oral QAM AC tamsulosin 0.4 mg Oral Daily after breakfast Continuous Infusions: naloxone (NARCAN) infusion Stopped (09/05/18 1420) PRN Meds: acetaminophen, albuterol, aluminum & magnesium hydroxide-simethicone, bisacodyl, calcium carbonate, Hypoglycemia Management AND POCT Glucose AND dextrose, docusate s odium, melatonin, ondansetron, polyethylene glycol, senna Diagnostic Studies: Available data and images were reviewed personally. Significant results and findings are a ddressed here or in the Assessment and Plan. Recent Labs 09/05/18 0503 09/04/18 1628 WBC 7.9 7.3 HGB 9.9* 10.0* HCT 31.0* 32.3* PLT 281 271 MCV 91.7 91.5 Recent Labs 09/06/18 0427 09/05/18 0503 NA 135* 137 K 4.3 4.3 CL 100 104 CO2 27 27 BUN 20* 24* CREA 0.85 1.03 GLU 292* 235* CALCIUM 8.9 8.3 MG -- 2.0 BCX 09/04: NGTD ESR 09/05: 5 CRP 09/05: 3.22 Salicylate 09/05: <4.0 Urine Eosinophils 09/05: none seen UTox 09/05: positive for amphetamine, methadone; pt takes Adderall, methadone LE Doppler 09/05 negative for DVT ECHO for vegetation 09/05: read pending athak, Gloria braga MD - 09/05/2018 9:34 AM PST . [facility] HOSPITALIST PROGRESS NOTE Pt. Name/Age/: Cecilio Arias 48 y.o. 1970 Med. Record Number: [id number] Date of admission: 09/04/2018 Date of service: 09/05/2018 Time of service: 934 Hospital Day: 2 Hospital Course: 48yoM w/ hx of NIDDM, chronic pain on methadone, R 1st toe osteomyelitis being treated with cefepime via PICC (week 4 of 6), who presented for issues with his PICC line (concern for c oming out and dirty site); somnolent on arrival suspected 2/2 methadone (denied other narcot ic use; reported that he takes methadone 60 mg in AM and 70 mg in PM; may take as much as 16 0 mg daily); denied injecting into PICC; also hypotensive in ED SBP in 80s and BCX drawn; PI CC line removed but not sent for culture In ED Narcan gtt initiated. ASSESSMENT & PLAN: 1. Opiate overdose -Narcan gtt discontinued -monitor patient for substance use in hospital when significant other present; they should not be along together out of sight of staff -cont EtCO2 monitoring -pharmacy to investigate narcotic regimen so that we devise a marcotic regimen during inpt stay/avoid withdrawal 2. CAYLA -creatinine improved with IVF -pt reported taking 40-50 200mg ibuprofen tablets per day since last discharge; urine eos a nd serum salicylate level negative 3. Hx indwelling central line - RN in ER had noted concerns that it had not been properly cared for, and is at risk for p ossible infection -follow up BCx drawn in ER on 09/04 (PICC tip not sent for culture) -check ECHO given murmur (although has been appreciated before) as PICC line not properly c ared for an possibility that pt may have injected through PICC line 4. R 1st toe osteo -improved with abx; ESR and CRP are not elevated this admission -continuing cefepime; will need 2 more weeks and likely follow up MRI at that time. 5. RLE -may be 2/2 R 1st toe osteo; -f/u on LE doppler to r/o DVT 5. NIDDM -holding farxiga and metformin given CAYLA this admission -cont SSI 6. HLD -continue lipitor FEN: DM diet orderd PPx: lovenox Code: FULL, per patient wishes on admission Dispo: will need to discuss with CM/infusion center mgmt of abx over next 2 weeks; concern for pt's ability to keep PICC site clean and that he may be injecting through PICC line; mellissa l also look into whether pt could go to LTAC vsremain in hospital for duration of abx tx if no other options DVT Prophylaxis low molecular weight heparin Code Status Full Code SUBJECTIVE: Narcan gtt weaned and discontinued. Pt became more sleepy with decreased RR this AM after going into the bathroom with his sign ificant other for about 10 minutes. Similar events have occurred during previous admission h ere. He does not have any complaints this morning. His significant other is concern about ho w he will continue to receive cefepime as an outpatient without a PICC line. OBJECTIVE: Vitals: Temp: 35.9 C (96.6 F), Pulse: 65, Resp: 12, BP: 106/66, SpO2 93 % on room air at flow rate 3 (placed on 3 l open mask)L/min Temp Min: 35.9 C (96.6 F) Max: 36.8 C (98.2 F) Current Weight:82.6 kg (182 lb) Admit Weight: 82.6 kg (182 lb) Intake/Output Summary (Last 24 hours) at 09/05/18 0935 Last data filed at 09/05/18 0500 Gross per 24 hour Intake 500 ml Output 1050 ml Net -550 ml GEN: sleepy but arousable NECK: trachea midline; no goiter CV: RRR 2/6 TREVOR PULM: CTAB ABD: soft NTND SKIN: healing R 1st toe ulcer site Telemetry: NSR Glucose, POC Date/Time Value Ref Range Status 09/05/2018 07:41 202 (H) 70 - 109 mg/dL Final 09/04/2018 21:25 229 (H) 70 - 109 mg/dL Final 09/04/2018 16:17 157 (H) 70 - 109 mg/dL Final 08/09/2018 11:56 323 (H) 70 - 109 mg/dL Final 08/09/2018 07:38 337 (H) 70 - 109 mg/dL Final 08/09/2018 01:14 344 (H) 70 - 109 mg/dL Final Inpatient Medications Scheduled Meds: amphetamine-dextroamphetamine 30 mg Oral Daily aspirin 325 mg Oral Daily atorvaSTATin 40 mg Oral Daily cefepime 2 g Intravenous 2 times per day cholecalciferol 1,000 Units Oral Daily enoxaparin 40 mg Subcutaneous Daily insulin lispro 0-6 Units Subcutaneous 4x Daily WC and HS pantoprazole 40 mg Oral QAM AC tamsulosin 0.4 mg Oral Daily after breakfast Continuous Infusions: naloxone (NARCAN) infusion Stopped (09/04/18 2244) sodium chloride 0.9% 100 mL/hr at 09/05/18 0756 PRN Meds: acetaminophen, albuterol, aluminum & magnesium hydroxide-simethicone, bisacodyl, calcium carbonate, Hypoglycemia Management AND POCT Glucose AND dextrose, docusate s odium, melatonin, ondansetron, polyethylene glycol, senna Diagnostic Studies: Available data and images were reviewed personally. Significant results and findings are a ddressed here or in the Assessment and Plan. Recent Labs 09/05/18 0503 09/04/18 1628 WBC 7.9 7.3 HGB 9.9* 10.0* HCT 31.0* 32.3* PLT 281 271 MCV 91.7 91.5 Recent Labs 09/05/18 0503 09/04/18 1628 NA 137 137 K 4.3 4.6 CL 104 102 CO2 27 26 BUN 24* 31* CREA 1.03 1.36* GLU 235* 149* CALCIUM 8.3 8.7 MG 2.0 -- BCX 09/04: NGTD ESR 09/05: 5 CRP 09/05: 3.22 Salicylate 09/05: <4.0 Urine Eosinophils 09/05: none seen UTox 09/05: positive for amphetamine, methadone; pt takes Adderall, methadone ta [place] R N - 09/04/2018 6:15 PM PSTPt with picc dressing compromised. Dressing visibly dirty and li ne is exposed. Pt reports he has not had his dressing changed since insertion. Pt has been unable to follow up with electric motor tester assembler due to changing doctors with no appointments avail able. Picc line discontinued due to dressing compromise. Pt will be admitted current IV an tibotic can be given through PIV. 6 :18 PM PSTdocumented in this encounter H&P Notes Mamta Pierre MD - 09/04/2018 8:31 PM PST HISTORY AND PHYSICAL EXAMINATION Pt. Name/Age/: Cecilio Arias 48 y.o. 1970 Date of admission: 09/04/2018 Admitting Physician: Mamta Pierre Primary Care Physician: No Physician on file History taken from: patient, spouse/SO and past medical records Chief Complaint/Reason for Visit: PICC problem, AMS History of Present Illness: 48yoM w/ hx of NIDDM, chronic pain on methadone, R 1st toe osteomyelitis being treated with cefepime via PICC, who presented for issues with his PICC line. His states that the P ICC seemed to be coming out. He has not had proper dressing changes since his discharge, bu t has been doing his antibiotics as scheduled for the past 4 weeks (6 weeks planned total). He was also noted to be quite sedated on arrival hear and apneic at times. He responded to narcan, but then became somnolent again so required narcan gtt. Patient states that he too k 60mg of methadone in the AM and 70mg this evening. He is normally on 160mg total daily. He denies any other narcotic use, and he adamantly denies injecting into the PICC. He denie s any fevers at home, has been eating and drinking well, and has been feeling well overall. His foot has drastically improved, though he has noticed more swelling in the R leg the las t couple days. No pain. Past Medical History: Past Medical History: Diagnosis Date Adverse effect of anesthesia Slow to wake up Diabetes mellitus (HCC) Elevated cholesterol Emphysema of lung (HCC) GERD (gastroesophageal reflux disease) Immune deficiency disorder (HCC) Lab results placed in chart regarding [id number] Phenotype. Osteoporosis PONV (postoperative nausea and vomiting) Seizure (HCC) Testosterone deficiency Vitamin D deficiency Past Surgical History: Procedure Laterality Date CARPAL TUNNEL RELEASE Left 05/14/2017 Procedure: Left Elbow Joint Exploration and Bilateral Shoulder Injection; Surgeon: Nirmal Wood MD; Location: [facility] MAIN OR ELBOW SURGERY Left 11/15/2015 Procedure: Left Lateral Epicondylar Release & Injection of Left Elbow Joint ; Surgeon: Janet Wood MD; Location: [facility] MAIN OR KNEE ARTHROSCOPY Right 12/05/2014 Procedure: Right Knee Arthroscopy with Partial Medial Menisectomy and Medial- Femoral Tay droplasty; Surgeon: Marty Wood MD; Location: [facility] MAIN OR KNEE ARTHROSCOPY Right 02/11/2018 Procedure: Right Knee Arthroscopy & bilateral Elbow Injections, Lateral Tibial Chondroplas ty, Medial Femoral Chondroplasty, Partial medial meniscectomy; Surgeon: Marty Wood MD; Location: [facility] MAIN OR MANDIBLE SURGERY spinal cord injury Allergies: Allergies Allergen Reactions Azithromycin Anaphylaxis Codeine Hives Hydrocodone Hives Sulfa Antibiotics Hives Current Medications: Current Facility-Administered Medications Medication Dose Route Frequency Provider Last Rate Last Dose acetaminophen (TYLENOL) tablet 650 mg 650 mg Oral Q4H PRN Mamta Pierre MD albuterol 2.5 mg/3 mL nebulizer solution 2.5 mg 2.5 mg Nebulization RT Q4H PRN Mamta Pierre MD aluminum & magnesium hydroxide-simethicone (MAALOX PLUS REGULAR STRENGTH) 200-200-20 mg /5 mL suspension 30 mL 30 mL Oral Q4H PRN Mamta Pierre MD [START ON 09/05/2018] amphetamine-dextroamphetamine (ADDERALL) tablet 30 mg 30 mg Oral Daily Mamta Pierre MD [START ON 09/05/2018] aspirin tablet 325 mg 325 mg Oral Daily Mamta Pierre MD [START ON 09/05/2018] atorvaSTATin (LIPITOR) tablet 40 mg 40 mg Oral Daily Mamta larios MD bisacodyl (DULCOLAX) suppository 10 mg 10 mg Rectal Daily PRN Mamta Pierre MD calcium carbonate (TUMS) chewable tablet 1,000 mg 1,000 mg Oral Q4H PRN Mamta Pierre MD cefepime (MAXIPIME) 2 g in sodium chloride 0.9% 50 mL IVPB 2 g Intravenous Once Ilsa Pierre MD [START ON 09/05/2018] cefepime (MAXIPIME) 2 g in sodium chloride 0.9% 50 mL IVPB 2 g I ntravenous 2 times per day Mamta Pierre MD [START ON 09/05/2018] cholecalciferol (VITAMIN D-3) tablet 1,000 Units 1,000 Units Ora l Daily Mamta Pierre MD dextrose 50% injection 12.5 g 12.5 g Intravenous PRN Mamta Pierre MD docusate sodium (COLACE) capsule 100 mg 100 mg Oral BID PRN Mamta Pierre MD [START ON 09/05/2018] enoxaparin (LOVENOX) 40 mg/0.4 mL injection 40 mg 40 mg Subcutan eous Daily Mamta Pierre MD insulin lispro (humaLOG KWIKPEN) injection (pen) 0-6 Units 0-6 Units Subcutaneous 4x D aily WC and HS Mamta Pierre MD melatonin tablet 3 mg 3 mg Oral Nightly PRN Mamta Pierre MD naloxone (NARCAN) 4 mcg/mL in sodium chloride 0.9% 500 mL infusion 0.4 mg/hr Intraveno us Titrated Serjio Riley MD 100 mL/hr at 09/04/181811 0.4 mg/hr at 09/04/181811 ondansetron (ZOFRAN) injection 4 mg 4 mg Intravenous Q6H PRN Mamta Pierre MD [START ON 09/05/2018] pantoprazole (PROTONIX) DR tablet 40 mg 40 mg Oral QAM AC Ilsa Pierre MD polyethylene glycol (MIRALAX) powder 17 g 17 g Oral Daily PRN Mamta Pierre MD senna (SENOKOT) tablet 8.6 mg 8.6 mg Oral BID PRN Mamta Pierre MD sodium chloride 0.9% (NS) infusion Intravenous Continuous Mamta Pierre MD [START ON 09/05/2018] tamsulosin (FLOMAX) capsule 0.4 mg 0.4 mg Oral Daily after break fast Mamta Pierre MD Current Outpatient Prescriptions Medication Sig Dispense Refill amphetamine-dextroamphetamine (ADDERALL XR) 30 MG 24 hr capsule take 1 capsule by mouth once daily 0 aspirin 325 mg tablet Take 1 tablet by mouth Daily. 30 tablet 0 atorvaSTATin (LIPITOR) 40 mg tablet Take 40 mg by mouth Daily. B-D 3CC LUER-ANDREAS SYR 61HX9-6/2 22G X 1-1/2" 3 ML MISC use [...] & dinner). methadone 10 mg tablet Take 80 mg by mouth 2 times daily. omeprazole (PRILOSEC) [...] HPI. Exam: Vital Signs on Arrival: Temp: 36.8 C (98.2 F) BP: (!) 87/43 Pulse: 101 Resp: 12 SpO2: (!) 88 % on Most Recent Vital Signs: Temp: 36.8 C (98.2 F) BP: 118/67 Pulse: 89 Resp: 14 SpO2: 97 % on Admission Weight: Weight: 82.6 kg (182 lb) BMI: Body mass index is 24.01 kg/m. Physical Examination: General: Somnolent, but arouses and answers questions appropriately HEENT: MMM Cardiovascular: Regular S1S2, ii/vi systolic murmur at LUSB Respiratory: CTAB Abdomen: S NT ND BS normoactive Genitourinary: deferred Extremities: RLE nonpitting edema, no redness, ulceration on R 1st toe looks greatly impro john since I had last seen him Skin: No rashes. No erythema at site of PICC (now removed). Neurological: nonfocal Psychiatric: appropriate Diagnostic Studies: Available Labs and Images were reviewed personally. Significant resul ts and findings are addressed below or in the Assessment and Plan. Code Status: Full Code Assessment and Plan: 1. Accidental opiate overdose--sending utox, and doing fine on narcan gtt. Does have an AK I, wonder if maybe this is contributing? Patient denies any additional narcotic use. Will try to wean the gtt off as possible. Hold other sedating medications for now. EtCO2 monito ring while sleeping. 2. CAYLA--creatinine 1.36 from baseline 0.8. Will provide IVF hydration, monitor UOP and rep eat labs in AM. Send urine studies to calculate FeNa. 3. PICC dislocation--now removed. RN in ER had noted concerns that it had not been properl y cared for, and is at risk for possible infection from this. Will follow up blood cultures drawn in ER. Does not appear PICC tip was sent for culture. Patient does have heart murmur , but was also noted at last hospital stay. Will hold off on echo for now unless cultures c ome back positive. 4. R 1st toe osteo--looking much better. Continuing cefepime. Will repeat ESR and CRP in AM to trend from previous stay. Will need 2 more weeks and likely follow up MRI at that cesar e. RLE still a bit swollen, so will check LE doppler to r/o DVT. 5. NIDDM--holding farxiga and metformin for now. SSI. 6. HLD--continue lipitor. FEN: DM PPx: lovenox Code: FULL, per patient wishes on admission Dispo: Inpatient, as will likely require >2MN hospital stay. Stepdown for close monitoring while on narcan gtt. Addendum Patient tells me that he has been taking about 40-50 200mg ibuprofen tablets p er day since his discharge from the hospital. Sending urine eos and serum salicylate level. Electronically signed by: Mamta Pierre MD, 09/04/2018 20:31 [facility] Lab data: Recent Results (from the past 24 hour(s)) POC Glucose Collection Time: 09/04/18 16:17 Result Value Ref Range Glucose, POC 157 (H) 70 - 109 mg/dL CBC with Differential Collection Time: 09/04/18 16:28 Result Value Ref Range WBC 7.3 4.0 - 11.0 K/uL RBC 3.53 (L) 4.30 - 5.70 M/uL Hgb 10.0 (L) 13.5 - 18.0 g/dL Hct 32.3 (L) 40.0 - 51.0 % MCV 91.5 83.0 - 101.0 fL MCH 28.3 28.0 - 35.0 pg MCHC 31.0 (L) 32.0 - 36.0 g/dL RDW-CV 14.3 <15.0 % RDW-SD 47.7 (H) 35.1 - 46.3 fL Platelet Count 271 140 - 440 K/uL MPV 10.2 6.5 - 12.4 fL % Neutrophils 55.2 45.0 - 82.0 % % Lymphocytes 27.3 20.0 - 45.0 % % Monocytes 11.1 4.0 - 12.0 % % Eosinophils 5.6 (H) 0.0 - 5.0 % % Basophils 0.4 0.0 - 1.0 % % Immature granulocytes 0.4 0.0 - 0.4 % Absolute Neutrophils 4.01 1.80 - 8.50 K/uL Absolute Lymphocytes 1.99 0.60 - 3.20 K/uL Absolute Monocytes 0.81 0.00 - 1.00 K/uL Absolute Eosinophils 0.41 (H) 0.00 - 0.40 K/uL Absolute Basophils 0.03 0.00 - 0.10 K/uL Absolute Imm. Granulocytes 0.03 0.00 - 0.03 K/uL nRBC 0 0 - 2 per 100 WBC's NRBC ABS 0.00 0.00 - 0.01 K/uL Comprehensive Metabolic Panel Collection Time: 09/04/18 16:28 Result Value Ref Range Na 137 136 - 149 mmol/L K 4.6 3.5 - 5.1 mmol/L Cl 102 98 - 109 mmol/L CO2 26 24 - 31 mmol/L Anion Gap 9 3 - 16 mmol/L Glucose 149 (H) 70 - 109 mg/dL BUN 31 (H) 7 - 18 mg/dL Creatinine 1.36 (H) 0.60 - 1.30 mg/dL eGFR if not 56 (L) >=60 mL/min/1.73m2 Ca 8.7 8.3 - 10.5 mg/dL Albumin 3.5 3.2 - 5.0 g/dL Bilirubin Total 0.4 0.1 - 1.5 mg/dL Total Protein 6.7 6.0 - 7.8 g/dL AST 21 10 - 42 U/L ALT 15 6 - 45 U/L Alkaline Phosphatase 87 40 - 110 U/L Globulin 3.2 2.1 - 3.8 g/dL Albumin/Globulin Ratio 1.1 0.8 - 2.0 BUN/Creatinine Ratio 22.8 Protime INR Collection Time: 09/04/18 16:28 Result Value Ref Range Protime 13.7 11.3 - 13.9 seconds INR 1.1 0.9 - 1.1 Lactic Acid Collection Time: 09/04/18 16:28 Result Value Ref Range Lactate 1.2 0.5 - 2.2 mmol/L Procalcitonin Collection Time: 09/04/18 16:28 Result Value Ref Range Procalcitonin 0.06 <=0.50 ng/mL Comment Extra Lavender Top Tube Collection Time: 09/04/18 16:28 Result Value Ref Range Extra Lavender Top Tube Done Extra Green Top Tube Collection Time: 09/04/18 16:28 Result Value Ref Range Extra Green Top Tube Done documented in this [facility] ED Notes Serjio Riley MD - 09/04/2018 4:11 PM PSTFormatting of this note might be different fr om the original. Formerly [facility] Cecilio Arias Emergency Department Encounter Note [address] [place] [address] PCP:No Physician on file ED02 CHIEF COMPLAINT: Chief Complaint Patient presents with Vascular Access Problem Altered Mental Status HPI Cecilio Arias is a 48 y.o. male who presents to the Emergency Department w ith altered mental status. He arrives with hypotension and hypoxia secondary to overdose. His is now present stating that he was recently admitted to the hospital and was discha rged. He originally came because he needed to get the PICC line checked Took methadone 40 mg at 10 am and then methadone 70 mg again right before he came to the ER . This has now resulted in him being diaphoretic and weak and hypotensive with pinpoint pup ils and not responsive. Not moving and no gag reflex. Did not take Oxycodone today per his report. Recently admitted for cellulitis/bacteremia/open wound of the toe. The patient has no feve rs now but is diaphoretic PAST MEDICAL & SURGICAL HISTORY Past Medical History: Diagnosis Date Adverse effect of anesthesia Slow to wake up Diabetes mellitus (HCC) Elevated cholesterol Emphysema of lung (HCC) GERD (gastroesophageal reflux disease) Immune deficiency disorder (HCC) Lab results placed in chart regarding [id number] Phenotype. Osteoporosis PONV (postoperative nausea and vomiting) Seizure (HCC) Testosterone deficiency Vitamin D deficiency Past Surgical History: Procedure Laterality Date CARPAL TUNNEL RELEASE Left 05/14/2017 Procedure: Left Elbow Joint Exploration and Bilateral Shoulder Injection; Surgeon: Nirmal Wood MD; Location: [facility] MAIN OR ELBOW SURGERY Left 11/15/2015 Procedure: Left Lateral Epicondylar Release & Injection of Left Elbow Joint ; Surgeon: Janet Wood MD; Location: [facility] MAIN OR KNEE ARTHROSCOPY Right 12/05/2014 Procedure: Right Knee Arthroscopy with Partial Medial Menisectomy and Medial- Femoral Tay droplasty; Surgeon: Marty Wood MD; Location: [facility] MAIN OR KNEE ARTHROSCOPY Right 02/11/2018 Procedure: Right Knee Arthroscopy & bilateral Elbow Injections, Lateral Tibial Chondroplas ty, Medial Femoral Chondroplasty, Partial medial meniscectomy; Surgeon: Marty Wood MD; Location: [facility] MAIN OR MANDIBLE SURGERY spinal cord injury CURRENT MEDICATIONS Previous Medications AMPHETAMINE-DEXTROAMPHETAMINE (ADDERALL XR) 30 MG 24 HR CAPSULE take 1 capsule by mouth once daily ASPIRIN 325 MG TABLET Take 1 tablet by mouth Daily. ATORVASTATIN (LIPITOR) 40 MG TABLET Take 40 mg by mouth Daily. B-D 3CC LUER-ANDREAS SYR 80KY5-4/2 22G X 1-1/2" 3 ML MISC use to INJECT TESTOSTERONE TWICE A WEEK CHOLECALCIFEROL (VITAMIN D-3) 1,000 UNITS CAPSULE Take 1 capsule by mouth Daily. CLOMIPHENE (CLOMID) 50 MG TABLET take 1/2 tablet by mouth once daily FRIDAY THROUGH FRI DAY. STOP T... (REFER TO PRESCRIPTION NOTES). CYCLOBENZAPRINE [...] Social History Narrative None REVIEW OF SYSTEMS Review of Systems Unable to perform ROS: Mental status change PHYSICAL EXAM VITAL SIGNS: (first vital signs):Temp: 36.8 C (98.2 F) Pulse: 101 Resp: 12 SpO2: (!) 88 % BP: (!) 87/43 Body mass index is 24.01 kg/m. Constitutional: male patient, no gag and not responsive initially. HEENT: Atraumatic, patient follows me around the room with their eyes, pupils fixed at 2 m m and minimally reactive, Oropharynx shows no redness, moist mucus membranes. Neck: Supple with full range of motion. No JVD, lymphadenopathy, or meningismus. Respiratory: Agonal shallow respirations. Cardiovascular: Normal S1 S2. No rubs or murmurs Abdomen: Soft, nontender. No rebound, guarding, or masses. Bowel tones normal. No pulsa tile masses Back: No CVA tenderness. No midline thoracic or lumbar spinal tenderness. Extremities: Focal ulcer to the right great toe with no signs of redness and no infection. Present distal pulses. Skin: Warm, Dry, No obvious rashes. Capillary refill is brisk <3 seconds and shows good p erfusion on areas of visible skin. Neurologic: GCS 6-7 initially. Moving all extremities equally LABS Results for orders placed or performed during the hospital encounter of 09/04/18 CBC with Differential Result Value Ref Range WBC 7.3 4.0 - 11.0 K/uL RBC 3.53 (L) 4.30 - 5.70 M/uL Hgb 10.0 (L) 13.5 - 18.0 g/dL Hct 32.3 (L) 40.0 - 51.0 % MCV 91.5 83.0 - 101.0 fL MCH 28.3 28.0 - 35.0 pg MCHC 31.0 (L) 32.0 - 36.0 g/dL RDW-CV 14.3 <15.0 % RDW-SD 47.7 (H) 35.1 - 46.3 fL Platelet Count 271 140 - 440 K/uL MPV 10.2 6.5 - 12.4 fL % Neutrophils 55.2 45.0 - 82.0 % % Lymphocytes 27.3 20.0 - 45.0 % % Monocytes 11.1 4.0 - 12.0 % % Eosinophils 5.6 (H) 0.0 - 5.0 % % Basophils 0.4 0.0 - 1.0 % % Immature granulocytes 0.4 0.0 - 0.4 % Absolute Neutrophils 4.01 1.80 - 8.50 K/uL Absolute Lymphocytes 1.99 0.60 - 3.20 K/uL Absolute Monocytes 0.81 0.00 - 1.00 K/uL Absolute Eosinophils 0.41 (H) 0.00 - 0.40 K/uL Absolute Basophils 0.03 0.00 - 0.10 K/uL Absolute Imm. Granulocytes 0.03 0.00 - 0.03 K/uL nRBC 0 0 - 2 per 100 WBC's NRBC ABS 0.00 0.00 - 0.01 K/uL Comprehensive Metabolic Panel Result Value Ref Range Na 137 136 - 149 mmol/L K 4.6 3.5 - 5.1 mmol/L Cl 102 98 - 109 mmol/L CO2 26 24 - 31 mmol/L Anion Gap 9 3 - 16 mmol/L Glucose 149 (H) 70 - 109 mg/dL BUN 31 (H) 7 - 18 mg/dL Creatinine 1.36 (H) 0.60 - 1.30 mg/dL eGFR if not 56 (L) >=60 mL/min/1.73m2 Ca 8.7 8.3 - 10.5 mg/dL Albumin 3.5 3.2 - 5.0 g/dL Bilirubin Total 0.4 0.1 - 1.5 mg/dL Total Protein 6.7 6.0 - 7.8 g/dL AST 21 10 - 42 U/L ALT 15 6 - 45 U/L Alkaline Phosphatase 87 40 - 110 U/L Globulin 3.2 2.1 - 3.8 g/dL Albumin/Globulin Ratio 1.1 0.8 - 2.0 BUN/Creatinine Ratio 22.8 Protime INR Result Value Ref Range Protime 13.7 11.3 - 13.9 seconds INR 1.1 0.9 - 1.1 Lactic Acid Result Value Ref Range Lactate 1.2 0.5 - 2.2 mmol/L Procalcitonin Result Value Ref Range Procalcitonin 0.06 <=0.50 ng/mL Comment Extra Lavender Top Tube Result Value Ref Range Extra Lavender Top Tube Done POC Glucose Result Value Ref Range Glucose, POC 157 (H) 70 - 109 mg/dL IMAGING STUDIES Recent imaging: No results found for this or any previous visit (from the past 360 hour(s)). ED COURSE & MEDICAL DECISION MAKING Pertinent Labs & Imaging studies were reviewed along with EMS notes and alf record s if applicable. Medication and Allergy lists reviewed in [facility]. Nurses note and old record s were reviewed if available within [facility] ER course 16:11 - Patient care initiated. After introducing myself to the patient and , I perfor med a careful history and physical examination. Patient has a classic opiate overdose. We will treat with Narcan and also order a full sep sis work up given that he is hypotensive. This seems unlikely however. 16:25. Patient is now totally alert and responsive and BP is normal 119/61 with normal pup ils. He is awake alert and has no recollection of what happened before coming here. He rec alls taking extra methadone just before he left however. 17:35. At this stage, the patient is again obtunded and breathing only 4-6 times per minut e with decreased oxygen saturation. He'll be given another dose of Narcan. I'm very concer reva that this patient will need to be admitted. As it turns out, the patient was had the PI CC line in place for over 4 weeks. He has not been extending to the dressing changes and curry s not followed up with clinic as he was supposed to. PICC line nurses evaluated the line an d she is very concerned about it. She feels that it needs to be removed. She is not sure w hat the plan for future antibiotic therapy is that she thinks that this line is likely to ca use the patient and infection and may be a problem. I've asked her to remove the line and r eplace it if possible. In the meantime, the patient will likely need to be admitted because the half-life of methadone is so long. The fact that he is requiring multiple doses of Palomo can is very concerning. He will be placed on a Narcan drip at 0.4 mg per hour and we will a dmit Last Set of Vital Signs: Temp: 36.8 C (98.2 F) Pulse: 101 Resp: 12 SpO2: (!) 88 % BP: ( !) 87/43 FINAL IMPRESSION 1. Opiate overdose, accidental or unintentional, initial encounter ([facility]) 2. Acute respiratory failure with hypoxia ([facility]) 3. Hypotensive episode 4. Noncompliance 5. POSSIBLE Infection of peripherally inserted central venous catheter (PICC), initial enco unter Disposition: Admit Condition: Guarded New Prescriptions No medications on file Discontinued Medications No medications on file Administrations This Visit naloxone (NARCAN) 0.4 mg/mL injection 0.4 mg Admin Date 09/04/2018 Action Given Dose 0.4 mg Route Intravenous Administered By Shauna Benjamin RN Admin Date 09/04/2018 Action Given Dose 0.4 mg Route Intravenous Administered By Bello Martinez RN sodium chloride 0.9% (NS) bolus 2,478 mL Admin Date 09/04/2018 Action New Bag Dose 2478 mL Rate 9,912 mL/hr Route Intravenous Administered By Bello Martinez RN Portions of this chart may have been created with ExtendEvent voice recognition software. Occasi onal wrong-word or sound-alike substitutions may have occurred due to the inherent stevens itations of voice recognition software. Please read the chart carefully and recognize, using context, where these substitutions have occurred. Serjio Riley MD 09/04/18 1741 hauna Benjamin R N - 09/04/2018 4:05 PM PSTPatient brought in by spouse for PICC line coming out. Patient ap pears altered. Spouse stated it just started. Denies that he did any drug use. Patient doesn 't answer questions. Diaphoretic. Having apneic periods. documented in this encounter Miscellaneous Notes Plan of Care - Brittani Bahena RRT - 09/07/2018 1:06 PM PSTProblem: Patient Care Overv iew (Adult) Goal: Care Team Goals & Evaluation PROBLEM-RELATED GOALS: Minor will have no signs of respiratory distress by 09/06/18 Minor will be free from injury by 09/06/18 Minor will show no signs of infection by 09/06/18 4. Denisopher will have breath sounds consistent with baseline function throughout stay a nd use the hospitals replacement for home medication regimen. Reevaluate by 09/08/18 . STRATEGY TO ACHIEVE GOALS: Respiratory and O2 monitoring, Narcan and oxygen as needed Educate to use call light and not to get out of bed without nurse assistance Assess right toe, labs - Administer the patient's home medication regimen and adjust with use of respiratory marjorie cols. Outcome: Improving Goal Evaluation: Minor has been up in room breath sounds are clear SpO2: 99 % on room air no prn treatments today lan of Care - Yulissa Epps RN - 09/07/2018 4:19 AM PSTProblem: Patient Care Overview (Adult) Goal: Care Team Goals & Evaluation PROBLEM-RELATED GOALS: Minor will have no signs of respiratory distress by 09/06/18 Minor will be free from injury by 09/06/18 Minor will show no signs of infection by 09/06/18 4. Christopher will have breath sounds consistent with baseline function throughout stay a nd use the hospitals replacement for home medication regimen. Reevaluate by 09/08/18 . STRATEGY TO ACHIEVE GOALS: Respiratory and O2 monitoring, Narcan and oxygen as needed Educate to use call light and not to get out of bed without nurse assistance Assess right toe, labs - Administer the patient's home medication regimen and adjust with use of respiratory marjorie cols. Outcome: Improving Goal Evaluation: Minor is A&O times 4, remains free from falls, vital sign remain stable. Minor breath soun d are diminished in the bases. Denies pain and SOB. Antibiotics given has schedule. lan of Care - Shaun Sanchez RN - 09/06/2018 7:20 PM PSTProblem: Patient Care Overview (Adult) Goal: Care Team Goals & Evaluation PROBLEM-RELATED GOALS: Minor will have no signs of respiratory distress by 09/06/18 Minor will be free from injury by 09/06/18 Minor will show no signs of infection by 09/06/18 4. Christopher will have breath sounds consistent with baseline function throughout stay a nd use the hospitals replacement for home medication regimen. Reevaluate by 09/08/18 . STRATEGY TO ACHIEVE GOALS: Respiratory and O2 monitoring, Narcan and oxygen as needed Educate to use call light and not to get out of bed without nurse assistance Assess right toe, labs - Administer the patient's home medication regimen and adjust with use of respiratory marjorie cols. Goal Evaluation: Transferred from ICU. Oriented to room, bed in lowest position and call light within reach . BG 344 mg/dL. Discussed patient and SO with security Eliseo. lan of Care - Porsche Guidry, [employer] - 09/06/2018 3:27 PM PSTProblem: Patient Care Overview (Adult) Goal: Care Team Goals & Evaluation PROBLEM-RELATED GOALS: Minor will have no signs of respiratory distress by 09/06/18 Minor will be free from injury by 09/06/18 Minor will show no signs of infection by 09/06/18 4. Cjer will have breath sounds consistent with baseline function throughout stay a nd use the hospitals replacement for home medication regimen. Reevaluate by 09/08/18 . STRATEGY TO ACHIEVE GOALS: Respiratory and O2 monitoring, Narcan and oxygen as needed Educate to use call light and not to get out of bed without nurse assistance Assess right toe, labs - Administer the patient's home medication regimen and adjust with use of respiratory marjorie cols. Outcome: Improving Goal Evaluation: SpO2 97 % on room air Breath sounds are clear. No PRN nebs required. lan of Care - Neena Jackson ra, RRT - 09/06/2018 5:28 AM PSTProblem: Patient Care Overview (Adult) Goal: Care Team Goals & Evaluation PROBLEM-RELATED GOALS: Minor will have no signs of respiratory distress by 09/06/18 Minor will be free from injury by 09/06/18 Minor will show no signs of infection by 09/06/18 4. Cecilio will have breath sounds consistent with baseline function throughout stay a nd use the hospitals replacement for home medication regimen. Reevaluate by 09/08/18 . STRATEGY TO ACHIEVE GOALS: Respiratory and O2 monitoring, Narcan and oxygen as needed Educate to use call light and not to get out of bed without nurse assistance Assess right toe, labs - Administer the patient's home medication regimen and adjust with use of respiratory marjorie cols. Outcome: Improving Goal Evaluation: Cecilio oxygen saturation is SpO2: 98 % on room air and a heart rate of 72. Breath sounds are clear . Pt has a none cough. Pt's respirations a re depth regular, pattern regular, unlabored . No prn treatments given lan of Care - Tho Gibbs RN - 09/05/2018 5:36 PM PSTProblem: Patient Care Overview (Adult) Goal: Care Team Goals & Evaluation PROBLEM-RELATED GOALS: Minor will have no signs of respiratory distress by 09/06/18 Minor will be free from injury by 09/06/18 Minor will show no signs of infection by 09/06/18 STRATEGY TO ACHIEVE GOALS: Respiratory and O2 monitoring, Narcan and oxygen as needed Educate to use call light and not to get out of bed without nurse assistance Assess right toe, labs Outcome: Improving Goal Evaluation: Pt is currently sleeping with a RR of 12 and regular pattern. He is on room and off of the NARCAN gtt. VSS. Minor is steady on his feet and only requiring 1 staff member to help kate ge lines when getting up. He as had no falls or injuries today. Currently alert and oriented . He does state intermittent numbness to all extremities and and increasing pain level. He i s scheduled to restart his methadone tonight at 2100 at a significantly lowered dose. Spouse Tasha has been at the bedside intermittently throughout the day. Electronically signed by: Tho Hernandez RN 09/05/2018 17:36 lan of Care - Jena Nuñez LICSW - 09/05/2018 5:19 PM PSTDischarge Planning Goal: Pt to be discharged in a safe manner Summary /Intervention: Met with Minor and his significant other, (introduced her as his ), Tasha. Minor edgardo eared drowsy but awakened for visit. Tasha appears pale, presents as somewhat manic. States she brought Minor to hospital when his "PICC line fell out". States she wants him to have another PICC line so he can go home and finish his antibiotics "because he has been doing so well and only has 2 more weeks lef t". They live in [place] in single level home with 2 steps to enter. Tasha states she has been giving Minor his IV antibiotics twice daily. States they have n ot had home health, but CORNELL Serna from [place] taught them how to manage IV infusions at home. Likely not eligible for home health as he does not have a primary care provider. Discussed need for PCP, Tasha states that they have intended to establish with Dr Manny humphrey, "but there have not been any openings". Plan: Pt hopes to return home and resume IV infusions CM follow up and see if we can assist with finding him a PCP Further assess home situation and safety, follow up with Ketty at [place] - Electronically signed by: JOHANNA Newman 09/05/2018 17:30 eICU Note - Tho Edwards RN - 09/05/2018 1:59 PM PSTPt walked to restroom by [employer], pt then turned off t he lights and locked the door. Staff at door continually checked on him. states that th is is his norm at home. Pt educated that we cannot have him locking himself in the restroom for safety reasons. Pt safely up and walked back to bed when finished with the restroom. Electronically signed by: Tho Hernandez RN 09/05/2018 14:01 eICU Note - Tho Hernandez RN - 09/05/2018 11:29 AM PSTPt states that he and his spouse Tasha smoked mariju rajwinder together yesterday. Tox screen negative for Marijuana. Pt remains drowsy and with occasi onal apneic episodes. Spouse Tasha has appeared impaired and unsteady on her feet since 07 00. States that she is just exhausted from staying up with the patient. Electronically signed by: Tho Hernandez RN 09/05/2018 11:33 eICU Note - Tho Hernandez RN - 09/05/2018 8:12 AM PSTPt used call light at 0700 to use the restroom. Alert and oriented at that time. Once disconnected he and his SO both walked into the bathroom and locked the door. 10 minutes later he and his SO are out of the bathroom and he stated that he wanted to apologize for his behavior the previous night. Around 0755 while back in bed th e pt is very drowsy and falls asleep immediately unless being spoken too. When re awoken wit h repeated loud verbal attempts or gentle physical stimuli he does answer questions appropri ately. Pt denies taking anything in the bathroom when asked, but LOC is altered compared to 0700. Electronically signed by: Tho Hernandez RN 09/05/2018 8:17 lan of Care - Radha Tinoco RN - 09/05/2018 5:37 AM PSTProblem: Patient Care Overview (Adult) Goal: Care Team Goals & Evaluation PROBLEM-RELATED GOALS: Minor will have no signs of respiratory distress by 09/06/18 Minor will be free from injury by 09/06/18 Minor will show no signs of infection by 09/06/18 STRATEGY TO ACHIEVE GOALS: Respiratory and O2 monitoring, Narcan and oxygen as needed Educate to use call light and not to get out of bed without nurse assistance Assess right toe, labs Outcome: Unchanged Goal Evaluation: Alert and oriented, lethargic. Uncooperative and aggressive. Frequently threatens to leave , see previous notes. Lungs clear/diminished. Adequate UO. Ambulated to bathroom independent ly. Right toe open to air, swollen. Continues to refuse care. Will monitor and intervene as needed. eILISA Bucio - Radha Johnson RN - 09/05/2018 3:08 AM PSTPatient sleeping with respiratory rate 5/min. Orders to place continuous Co2 monitoring. 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 Educated on the importance of respiratory monitor ing and patient continued to refuse all cares and stated "leave me alone". MD notified. Will continue to monitor vitals and respiratory status and intervene as needed. Electronically s igned by Radha Johnson RN at 09/05/2018 3:10 AM PSTeILISA Bucio - Radha Johnson RN - 09/05/2018 1:17 AM PSTSignificant other accompanied with patient. Visually looking impaired , falling asleep during conversation and frequently falling off of bench almost hitting the floor. Both patient and significant other insisted that she is okay and states "shes just ti red". Offered to call for a ride home, but addiment on staying and states she "is fine here, just needs to be left alone". Patient had stated he had over $1,000 in his wallet and notified physician he had his presc ribed oxycodone in his pocket. Security was brought in for attempt to secure both money, oxy codone, and other personal belonging in a safe within the hospital. Security also addressed concern about significant others state and offered options such as a ride home, or a recline r to sit in that would be safer than the bench. The patient became aggressive, got out of be d, ripping lines and the tubing from his connected IV. After the situation was deescalated, and explained that staff was only worried about safety , the patient made the decision to stay and have care resumed. A recliner was brought in nex t to the patients bed for the significant other. Afterwards, the patients pocket knife had fallen out of his pants, for which the patient ca lled me in to have it placed in the safe along with his other belongings. Forms were filled out (see form) and a copy was given to the patient. documented in this encounter Plan of Treatment + +------+--------+ + + | Name | Type | Priori | Associated Diagnoses | Date/Time | | | | ty | | | + +------+--------+ + + | ED INFORMATION | SHITAL | Routin | | 09/04/2018 3:54 PM | | EXCHANGE | | e | | PST | + +------+--------+ + + documented as of this encounter Procedures + +--------+ + + + | Procedure Name | Priori | Date/Time | Associated Diagnosis | Comments | | | ty | | | | + +--------+ + + + | POC GLUCOSE | Routin | 09/07/2018 | | Results for this | | | e | 11:27 AM | | procedure are in the | | | | PST | | results section. | + +--------+ + + + | DRUGS OF ABUSE, | STAT | 09/07/2018 | | Results for this | | SCREEN, URINE | | 10:47 AM | | procedure are in the | | | | PST | | results section. | + +--------+ + + + | POC GLUCOSE | Routin | 09/07/2018 | | Results for this | | | e | 6:04 AM | | procedure are in the | | | | PST | | results section. | + +--------+ + + + | POC GLUCOSE | Routin | 09/06/2018 | | Results for this | | | e | 8:26 PM | | procedure are in the | | | | PST | | results section. | + +--------+ + + + | POC GLUCOSE | Routin | 09/06/2018 | | Results for this | | | e | 5:29 PM | | procedure are in the | | | | PST | | results section. | + +--------+ + + + | POC GLUCOSE | Routin | 09/06/2018 | | Results for this | | | e | 11:34 AM | | procedure are in the | | | | PST | | results section. | + +--------+ + + + | POC GLUCOSE | Routin | 09/06/2018 | | Results for this | | | e | 7:09 AM | | procedure are in the | | | | PST | | results section. | + +--------+ + + + | VITAMIN B-12 | Routin | 09/06/2018 | | Results for this | | | e | 4:27 AM | | procedure are in the | | | | PST | | results section. | + +--------+ + + + | EXTRA LAVENDER TOP | Routin | 09/06/2018 | | Results for this | | TUBE | e | 4:27 AM | | procedure are in the | | | | PST | | results section. | + +--------+ + + + | FOLATE | Routin | 09/06/2018 | | Results for this | | | e | 4:27 AM | | procedure are in the | | | | PST | | results section. | + +--------+ + + + | BASIC METABOLIC | Routin | 09/06/2018 | | Results for this | | PANEL | e | 4:27 AM | | procedure are in the | | | | PST | | results section. | + +--------+ + + + | POC GLUCOSE | Routin | 09/05/2018 | | Results for this | | | e | 8:16 PM | | procedure are in the | | | | PST | | results section. | + +--------+ + + + | POC GLUCOSE | Routin | 09/05/2018 | | Results for this | | | e | 5:01 PM | | procedure are in the | | | | PST | | results section. | + +--------+ + + + | CT HEAD WO CONTRAST | [facility] | 09/05/2018 | | Results for this | | | | 3:27 PM | | procedure are in the | | | | PST | | results section. | + +--------+ + + + | ECHO COMPLETE | Routin | 09/05/2018 | | Results for this | | | e | 11:44 AM | | procedure are in the | | | | PST | | results section. | + +--------+ + + + | POC GLUCOSE | Routin | 09/05/2018 | | Results for this | | | e | 11:36 AM | | procedure are in the | | | | PST | | results section. | + +--------+ + + + | VAS LOWER EXTREMITY | Routin | 09/05/2018 | | Results for this | | VENOUS RIGHT | e | 10:52 AM | | procedure are in the | | | | PST | | results section. | + +--------+ + + + | POC GLUCOSE | Routin | 09/05/2018 | | Results for this | | | e | 7:41 AM | | procedure are in the | | | | PST | | results section. | + +--------+ + + + | SEDIMENTATION RATE | Routin | 09/05/2018 | | Results for this | | | e | 5:03 AM | | procedure are in the | | | | PST | | results section. | + +--------+ + + + | CBC WITH | Routin | 09/05/2018 | | Results for this | | DIFFERENTIAL | e | 5:03 AM | | procedure are in the | | | | PST | | results section. | + +--------+ + + + | C-REACTIVE PROTEIN | Routin | 09/05/2018 | | Results for this | | | e | 5:03 AM | | procedure are in the | | | | PST | | results section. | + +--------+ + + + | MAGNESIUM | Routin | 09/05/2018 | | Results for this | | | e | 5:03 AM | | procedure are in the | | | | PST | | results section. | + +--------+ + + + | BASIC METABOLIC | Routin | 09/05/2018 | | Results for this | | PANEL | e | 5:03 AM | | procedure are in the | | | | PST | | results section. | + +--------+ + + + | CULTURE, MRSA | Routin | 09/04/2018 | | Results for this | | | e | 11:40 PM | | procedure are in the | | | | PST | | results section. | + +--------+ + + + | POC GLUCOSE | Routin | 09/04/2018 | | Results for this | | | e | 9:25 PM | | procedure are in the | | | | PST | | results section. | + +--------+ + + + | URINALYSIS WITH | STAT | 09/04/2018 | | Results for this | | MICROSCOPIC WITH | | 8:37 PM | | procedure are in the | | CULTURE IF INDICATED | | PST | | results section. | + +--------+ + + + | EOSINOPHIL SMEAR, | Add-On | 09/04/2018 | | Results for this | | URINE | | 8:37 PM | | procedure are in the | | | | PST | | results section. | + +--------+ + + + | SODIUM, URINE, | Routin | 09/04/2018 | | Results for this | | RANDOM | e | 8:37 PM | | procedure are in the | | | | PST | | results section. | + +--------+ + + + | CREATININE, URINE, | Routin | 09/04/2018 | | Results for this | | RANDOM | e | 8:37 PM | | procedure are in the | | | | PST | | results section. | + +--------+ + + + | DRUGS OF ABUSE, | Routin | 09/04/2018 | | Results for this | | SCREEN, URINE | e | 8:37 PM | | procedure are in the | | | | PST | | results section. | + +--------+ + + + | XR CHEST AP PORTABLE | STAT | 09/04/2018 | | Results for this | | | | 5:32 PM | | procedure are in the | | | | PST | | results section. | + +--------+ + + + | CULTURE, BLOOD | STAT | 09/04/2018 | | Results for this | | | | 4:33 PM | | procedure are in the | | | | PST | | results section. | + +--------+ + + + | PROCALCITONIN, SERUM | Add-On | 09/04/2018 | | Results for this | | | | 4:28 PM | | procedure are in the | | | | PST | | results section. | + +--------+ + + + | PROCALCITONIN, SERUM | STAT | 09/04/2018 | | Results for this | | | | 4:28 PM | | procedure are in the | | | | PST | | results section. | + +--------+ + + + | EXTRA LAVENDER TOP | Routin | 09/04/2018 | | Results for this | | TUBE | e | 4:28 PM | | procedure are in the | | | | PST | | results section. | + +--------+ + + + | EXTRA GREEN TOP TUBE | Routin | 09/04/2018 | | Results for this | | | e | 4:28 PM | | procedure are in the | | | | PST | | results section. | + +--------+ + + + | CULTURE, BLOOD | STAT | 09/04/2018 | | Results for this | | | | 4:28 PM | | procedure are in the | | | | PST | | results section. | + +--------+ + + + | PROTIME INR | STAT | 09/04/2018 | | Results for this | | | | 4:28 PM | | procedure are in the | | | | PST | | results section. | + +--------+ + + + | CBC WITH | STAT | 09/04/2018 | | Results for this | | DIFFERENTIAL | | 4:28 PM | | procedure are in the | | | | PST | | results section. | + +--------+ + + + | LACTIC ACID | STAT | 09/04/2018 | | Results for this | | | | 4:28 PM | | procedure are in the | | | | PST | | results section. | + +--------+ + + + | ALCOHOL | Add-On | 09/04/2018 | | Results for this | | | | 4:28 PM | | procedure are in the | | | | PST | | results section. | + +--------+ + + + | SALICYLATE LEVEL | Add-On | 09/04/2018 | | Results for this | | | | 4:28 PM | | procedure are in the | | | | PST | | results section. | + +--------+ + + + | COMPREHENSIVE | STAT | 09/04/2018 | | Results for this | | METABOLIC PANEL | | 4:28 PM | | procedure are in the | | | | PST | | results section. | + +--------+ + + + | POC GLUCOSE | Routin | 09/04/2018 | | Results for this | | | e | 4:17 PM | | procedure are in the | | | | PST | | results section. | + +--------+ + + + | ED INFORMATION | Routin | 09/04/2018 | | | | EXCHANGE | e | 3:54 PM | | | | | | PST | | | + +--------+ + + + +---+--------+ | | | | | Proced | | | ure | | | Note - | | | Gloria, | | | Lab In | | | | | | Hlseve | | | n - | | | 09/04/ | | | 2017 | | | 3:55 | | | PM PST | | [...] ON?/ | | | | | | 8 | | | 15:52? | | | AVLONI | | | TIS, | | | DENIS | | | OPHER | | | S?MRN: | | | | | | [id number] | | | [id number] | | | his | | | [...] | | | ent/17 | | | [id number] | | | [id number] | | | [id number] | | | [id number] | | | [id number] | | | [id number] | | | [...] | | | issue | | | Nov | | | [...] | | | Center | | | 7 0 | | | Total | | | 7 0 | | | Note: | | [...] | | | es | | | Inpati | | | ent | | | Other | | | acute | | | | | | osteom | | | [...] | | | device | | | | | | Prescr [...] MED | | | | | | 2018- | | | [...] | | 2 225 | | | 2018-1 | | | 0-09 | | | DEXTRO | | | AMP-AM | | | PHET | | | ER 30 | | | MG CAP | | | 30 | | | KAT | | | DENIS | | | ENSEN | | | 2 0 | | | 2018-1 | | | 0-09 | | | METHAD | | | ONE | | | HCL 10 | | | MG | | | TABLET | | | 480 | | | KAT | | | DENIS | | | ENSEN | | | 2 480 | | | 2018- | | | 0-09 | | | [...] | | 2 270 | | | 2018- | | | 7-20 | | | [...] | | 2 0 | | | 2018- | | | 6-18 | | | [...] | | of the | | | 40 | | | most-r | | | ecent | | | prescr | | | iption | | | s Rx | | | Summar | | | yMetri | | | c | | | Count | | | CS | | | II-V | | | Rx 40 | | | CS-II | | | Rx 38 | | | Quanti | | | ty | | | Dispen | | | sed | | | 7,250 | | | Unique | | | [...] documented in this encounter Results POC Glucose (09/07/2018 11:27 AM PST) + +---------+ + + + | Component | Value | Ref Range | Performed | Pathologist | | | | | At | Signature | + +---------+ + + + | Glucose, | 322 (H) | 70 - 109 mg/dL | [...] ST. | [address] | [place] | [phone] | | [facility] | | [address] | | | - LABORATORY | | | | + + + + + Drugs of Abuse, Screen, Urine (09/07/2018 10:47 AM PST) + + + + + [...] + | [facility] | [address] | [place] | [phone] | | [facility] | | [address] | | | - LABORATORY | | | | + + + + + POC Glucose (09/07/2018 6:04 AM PST) + +---------+ + + + | Component | Value | Ref Range | Performed | Pathologist | | | | | At | Signature | + +---------+ + + + | Glucose, | 242 (H) | 70 - 109 mg/dL | [...] [address] | [place] | [phone] | | [facility] | | [address] | | | - LABORATORY | | | | + + + + + POC Glucose (09/06/2018 8:26 PM PST) + +---------+ + + + | Component | Value | Ref Range | Performed | Pathologist | | | | | At | Signature | + +---------+ + + + | Glucose, | 335 (H) | 70 - 109 mg/dL | [...] [address] | [place] | [phone] | | [facility] | | [address] | | | - LABORATORY | | | | + + + + + POC Glucose (09/06/2018 5:29 PM PST) + +---------+ + + + [...] [address] | [place] | [phone] | | [facility] | | [address] | | | - LABORATORY | | | | + + + + + POC Glucose (09/06/2018 11:34 AM PST) + +---------+ + + + | Component | Value | Ref Range | Performed | Pathologist | | | | | At | Signature | + +---------+ + + + | Glucose, | 243 (H) | 70 - 109 mg/dL | [...] ST. | [address] | [place], [place] | [phone] | | [facility] | | [address] | | | - LABORATORY | | | | + + + + + POC Glucose (09/06/2018 7:09 AM PST) + +---------+ + + + | Component | Value | Ref Range | Performed | Pathologist | | | | | At | Signature | + +---------+ + + + | Glucose, | 330 (H) | 70 - 109 mg/dL | [...] [address] | [place] | [phone] | | [facility] | | [address] | | | - LABORATORY | | | | + + + + + Extra Lavender Top Tube (09/06/2018 4:27 AM PST) + +-------+ + + + | Component | Value | Ref Range | Performed | Pathologist | | | | | At | Signature | + +-------+ + + + | Extra | Done | | [facility] | | | Lavender | | | [facility] | | | Top Tube | | [...] + | [facility] | [address] | [place] | [phone] | | [facility] | | [address] | | | - LABORATORY | | | | + + + + + Folate (09/06/2018 4:27 AM PST) + +-------+ + + + | Component | Value | Ref Range | Performed | Pathologist | | | | | At | Signature | + +-------+ + + + | FOLATE | 9.7 | >5.8 ng/mL | [facility] | | | | | | [facility]. [...] [address] | [place] | [phone] | | [facility] | | [address] | | | - LABORATORY | | | | + + + + + Vitamin B-12 (09/06/2018 4:27 AM PST) + + + + + + | Component | Value | Ref Range | Performed | Pathologist | | | | | At | Signature | + + + + + + | VITAMIN | 233Comment: DEFICIENT: | 180 - 914 pg/mL | [facility] | | | B-12 | <145 | | [facility] | | | | pg/mLINDETERMINATE: | | MEDICAL | | | | 145-180 pg/mL | | CENTER - | | | | | | LABORATORY | | + + + + + + + + | Specimen | + + | Blood | + + + + + + + | Performing | Address | City/State/Zipcode | Phone Number | | Organization | | | | + + + + + | [facility] | [address] | [place] | [phone] | | [facility] | | [address] | | | - LABORATORY | | | | + + + + + Basic Metabolic Panel (09/06/2018 4:27 AM PST) + + + + + [...] + + + | Anion Gap | 8 | 3 - 16 mmol/L | [facility] | | [facility] | | [facility] | | | | | | MEDICAL | | | | | | CENTER - | | | | | | LABORATORY | | + + + + + + | Glucose | 292 (H) | 70 - 109 mg/dL | [facility] | | | | | [facility] | | | | | | MEDICAL | | | | | | CENTER - | | | | | | LABORATORY | | + + + + + + | BUN | 20 (H) | 7 - 18 mg/dL | [facility] | | | | | | [facility] | | | | | | MEDICAL | | | | | | CENTER - | | | | | | LABORATORY | | + + + + + + | Creatinine | 0.85 | 0.60 - 1.30 | [facility] | | | | | mg/dL | [facility] | | | | | | MEDICAL | | | | | | CENTER - | | | | | | LABORATORY | | + + + + + + | eGFR, | >60Comment: GLOMERULAR | >=60 | [facility] | | | non- | FILTRATION | mL/min/1.73m2 | [facility] | | | French | RATE,ESTIMATED | | MEDICAL | | | | mL/min/1.01o2Tehx than | | CENTER - | | [...] + | [facility] | [address] | [place] | [phone] | | [facility] | | [address] | | | - LABORATORY | | | | + + + + + POC Glucose (09/05/2018 8:16 PM PST) + +---------+ + + + | Component | Value | Ref Range | Performed | Pathologist | | | | | At | Signature | + +---------+ + + + | Glucose, | 206 (H) | 70 - 109 mg/dL | [...] + | [facility] | [address] | [place] | [phone] | | [facility] | | [address] | | | - LABORATORY | | | | + + + + + POC Glucose (09/05/2018 5:01 PM PST) + +---------+ + + + [...] [address] | [place] | [phone] | | [facility] | | [address] | | | - LABORATORY | | | | + + + + + CT Head wo Contrast (09/05/2018 3:27 PM PST) + + | Specimen | + + | | + + + + + | Narrative | Performed At | + + + | EXAM: CT HEAD WO CONTRAST dated 09/05/2018 3:18 PM HISTORY: | [facility] | | intermittent numbness and tingling Comparison: 03/16/2018 | | | TECHNIQUE: Noncontrast CT is performed from the top of calvarium | | | through the skull base. Coronal and sagittal reformats are | | | performed. FINDINGS: BRAIN: No areas of increased | | | attenuation to suggest intracranial hemorrhage. There is no mass, | | | mass effect, or midline shift. There are no abnormal extra-axial | | | fluid or air collections. There is preservation of the jeronimo-white | | | differentiation at this time. Ventricles, sulci and cisterns are | | | unremarkable for age. There is no significant white matter disease. | | | SCALP/ CALVARIUM: The scalp and skull are intact and are | | | unremarkable. SINUSES / ORBITS/ MASTOIDS: Mild ethmoid air cell | | | mucosal thickening. Remainder of the paranasal sinuses are patent. | | | The globes and retroconal contents are intact and without evidence | | | of acute abnormality. IMPRESSION - 1. Normal head CT. 2. Mild | | | ethmoid air cell mucosal thickening. Dictated and Signed by: | | | Fabien Michelle MD Electronically signed: 09/05/2018 3:30 PM | | + + + + + | Procedure Note | + + | Gloria, Rad Results In - 09/05/2018 3:33 PM PST EXAM: CT HEAD WO CONTRAST dated | | 09/05/2018 3:18 PMHISTORY: intermittent numbness and tinglingComparison: | | 03/16/2018TECHNIQUE: Noncontrast CT is performed from the top of calvarium through | | theskull base. Coronal and sagittal reformats are performed.FINDINGS: BRAIN: No areas | | of increased attenuation to suggest intracranial hemorrhage. There is no mass, mass | | effect, or midline shift. There are no abnormalextra-axial fluid or air collections. | | There is preservation of the jeronimo-whitedifferentiation at this time. Ventricles, sulci | | and cisterns are unremarkablefor age. There is no significant white matter disease. | | SCALP/ CALVARIUM: The scalp and skull are intact and are unremarkable.SINUSES / ORBITS/ | | MASTOIDS: Mild ethmoid air cell mucosal thickening. Remainderof the paranasal sinuses | | are patent. The globes and retroconal contents areintact and without evidence of acute | | abnormality.IMPRESSION -1. Normal head CT.2. Mild ethmoid air cell mucosal | | thickening.Dictated and Signed by: Fabien Michelle MD Electronically signed: 09/05/2018 | | 3:30 PM | |differentiation at this time. Ventricles, sulci and cisterns are unremarkable | |for age. There is no significant white matter disease. | | | |SCALP/ CALVARIUM: The scalp and skull are intact and are unremarkable. | | | |SINUSES / ORBITS/ MASTOIDS: Mild ethmoid air cell mucosal thickening. Remainder | |of the paranasal sinuses are patent. The globes and retroconal contents are | |intact and without evidence of acute abnormality. | | | |IMPRESSION - | |1. Normal head CT. | |2. Mild ethmoid air cell mucosal thickening. | | | | | | | |Dictated and Signed by: Fabien Michelle MD | | Electronically signed: 09/05/2018 3:30 PM | + + + +---------+ + + | Performing | Address | City/State[facility] | Phone Number | | Organization | | | | + +---------+ + + | [facility] | | | | + +---------+ + + ECHO Complete (09/05/2018 11:44 AM PST) + +---------+ + + + | Component | Value | Ref Range | Performed | Pathologist | | | | | At | Signature | + +---------+ + + + | BASELINE | 115/65 | mmHg | [facility] | | | BLOOD | | | | | | PRESSURE | | | | | + +---------+ + + + | Patient | 182 lbs | | [facility] | | | Weight | | | | | | (lbs) | | | | | + +---------+ + + + | Patient | 73 in | | [facility] | | | Height | | | | | + +---------+ + + + | LVIDd | 5.19 | cm | [facility] | | + +---------+ + + + | FS | 36 | % | [facility] | | + +---------+ + + + | LA volume | 54.68 | mL | [facility] | | + +---------+ + + + | Ascending | 3.56 | cm | [facility] | | | aorta | | | | | + +---------+ + + + | Aortic arch | 2.51 | cm | [facility] | | + +---------+ + + + | MV Area by | 3.31 | cm2 | [facility] | | | P 1/2 | | | | | | method | | | | | + +---------+ + + + | IVRT | 82.88 | msec | [facility] | | + +---------+ + + + | MV peak | 3.75 | mmHg | [facility] | | | gradient | | | | | + +---------+ + + + | MV Pressure | 66.42 | msec | [facility] | | | 1/2 time | | | | | + +---------+ + + + | LA Volume | 26 | mL/m2 | [facility] | | | Index | | | | | + +---------+ + + + | LV | 7.84 | cm | [facility] | | | Diastolic | | | | | | Length 4C | | | | | + +---------+ + + + | LV Systolic | 14.48 | cm2 | [facility] | | | Area PSAX | | | | | + +---------+ + + + | RV | 3.15 | cm | [facility] | | [...] + + + | LV ED | 75.35 | ml | [facility] | | | Volume | | | | | | (Ivory's) | | | | | + +---------+ + + + | LV ED | 36 | ml/m2 | [facility] | | | Volume | | | | | | Index | | | | | + +---------+ + + + | LV ES | 23.43 | ml | [facility] | | | Volume | | | | | + +---------+ + + + | MV E' | 13.98 | cm/s | [facility] | | | Lateral | | | | | | Velocity | | | | | + +---------+ + + + | MV E' | 15.35 | cm/s | [facility] | | | Septal | | | | | | Velocity | | | | | + +---------+ + + + | MV | 431.16 | cm/s2 | [facility] | | | Deceleratio | | | | | | n Webb | | | | | + +---------+ + + + | MV | 229.05 | msec | [facility] | | | Deceleratio | | | | | | n Time | | | | | + +---------+ + + + | MV E/A | 1.46 | | [facility] | | | Ratio | | | | | + +---------+ + + + | MV Peak | 66.49 | cm/s | [facility] | | | A-Wave | | | | | + +---------+ + + + | MV Peak | 96.8 | cm/s | [facility] | | | E-Wave | | | | | + +---------+ + + + | RA Area | 19.11 | cm2 | [facility] | | + +---------+ + + + | LA/Aorta | 1.08 | | [facility] | | | Ratio | | | | | + +---------+ + + + | LA Area | 19.22 | cm2 | [facility] | | + +---------+ + + + | LA Systolic | 10.66 | mmHg | [facility] | | | Pressure | | | | | + +---------+ + + + | MV E/E | 6.31 | | [facility] | | | SEPTAL | | | | | + +---------+ + + + | MV E/E | 6.92 | | [facility] | | | LATERAL | | | | | + +---------+ + + + | LV ES | 11 | ml/m2 | [facility] | | | Volume | | | | | | Index | | | | | + +---------+ + + + | LV Area | 27.93 | cm2 | [facility] | | | Diastolic | | | | | + +---------+ + + + | Heart Rate | 73 | | [facility] | | + +---------+ + + + | Aortic Root | 3.45 | cm | [facility] | | | Diameter | | | | | + +---------+ + + + | IVS | 0.96 | cm | [facility] | | | Diastolic | | | | | | Thickness | | | | | | MM | | | | | + +---------+ + + + | LVPW | 1.03 | cm | [facility] | | | Diastolic | | | | | | Thickness | | | | | | MM | | | | | + +---------+ + + + | IVS | 1.46 | cm | [facility] | | | Systolic | | | | | | Thickness | | | | | | MM | | | | | + +---------+ + + + | LV Systolic | 3.31 | cm | [facility] | | | Diameter | | | | | | MM | | | | | + +---------+ + + + | LVPW | 1.28 | cm | [facility] | | | Systolic | | | | | | Thickness | | | | | | MM | | | | | + +---------+ + + + | AV Cusp | 1.99 | cm | [facility] | | | Seperation | | | | | | MM | | | | | + +---------+ + + + | LA Systolic | 3.73 | cm | [facility] | | | Diameter | | | | | | MM | | | | | + +---------+ + + + | TAPSE | 2.72 | cm | [facility] | | + +---------+ + + + | LVEF-TTE | 65 | % | [facility] | | | TRANSTHORAC | | | | | | IC ECHO | | | | | + +---------+ + + + | RA PRESSURE | 15 | mmHg | [facility] | | + +---------+ + + + + + | Specimen | + + | | + + + + + | Narrative | Performed At | + + + | 1. Normal | [facility] | | left ventricular size, wall thickness and motion. Preserved left | | | ventricular systolic function. LVEF is 65-70%.2. Normal valvular | | | structure. No vegetations seen.3. Normal right-sided pressure.4. | | | Dilated IVC without respiratory collapse suggesting fluid retention. | | + + + + +---------+ + + | Performing | Address | City/State/Zipcode | Phone Number | | Organization | | | | + +---------+ + + | [facility] | | | | + +---------+ + + POC Glucose (09/05/2018 11:36 AM PST) + +---------+ + + + | Component | Value | Ref Range | Performed | Pathologist | | | | | At | Signature | + +---------+ + + + | Glucose, | 199 (H) | 70 - 109 mg/dL | [...] + | [facility] | [address] | [place] | [phone] | | [facility] | | [address] | | | - LABORATORY | | | | + + + + + VAS Lower Extremity Venous Right (09/05/2018 10:52 AM PST) + + | Specimen | + + | | + + + + + | Narrative | Performed At | + + + | VAS LOWER EXTREMITY VENOUS RIGHT 09/05/2018 10:22 AM HISTORY: | [facility] | | RLE swelling, eval for DVT. COMPARISON: None. PROTOCOL: Jeronimo | | | scale and Doppler images of the lower extremity veins. FINDINGS: | | | The right common femoral, greater saphenous, profunda femoral, | | | superficial femoral, and popliteal veins demonstrate normal flow, | | | augmentation, and compression. IMPRESSION - No evidence for DVT. | | | Dictated and Signed by: Fabien Michelle MD Electronically | | | signed: 09/05/2018 1:58 PM | | + + + + + | Procedure Note | + + | Gloria, Rad Results In - 09/05/2018 2:01 PM PST VAS LOWER EXTREMITY VENOUS RIGHT | | 09/05/2018 10:22 AM HISTORY: RLE swelling, eval for DVT.COMPARISON: None.PROTOCOL: Jeronimo | | scale and Doppler images of the lower extremity veins.FINDINGS:The right common femoral, | | greater saphenous, profunda femoral, superficialfemoral, and popliteal veins | | demonstrate normal flow, augmentation, andcompression.IMPRESSION -No evidence for | | DVT.Dictated and Signed by: Fabien Michelle MD Electronically signed: 09/05/2018 1:58 PM | |PROTOCOL: Jeronimo scale and Doppler images of the lower extremity veins. | | | |FINDINGS: | |The right common femoral, greater saphenous, profunda femoral, superficial | |femoral, and popliteal veins demonstrate normal flow, augmentation, and | |compression. | | | |IMPRESSION - | |No evidence for DVT. | | | |Dictated and Signed by: Fabien Michelle MD | | Electronically signed: 09/05/2018 1:58 PM | + + + +---------+ + + | Performing | Address | City/State/Zipcode | Phone Number | | Organization | | | | + +---------+ + + | [facility] | | | | + +---------+ + + POC Glucose (09/05/2018 7:41 AM PST) + +---------+ + + + | Component | Value | Ref Range | Performed | Pathologist | | | | | At | Signature | + +---------+ + + + | Glucose, | 202 (H) | 70 - 109 mg/dL | [...] + | [facility] | [address] | [place] | [phone] | | [facility] | | [address] | | | - LABORATORY | | | | + + + + + C-Reactive Protein (09/05/2018 5:03 AM PST) + +-------+ + + + | Component | Value | Ref Range | Performed | Pathologist | | | | | At | Signature | + +-------+ + + + | CRP | 3.22 | <8.00 mg/L | [facility] | | [...] + | [facility] | [address] | [place] | [phone] | | [facility] | | [address] | | | - LABORATORY | | | | + + + + + Sedimentation Rate (09/05/2018 5:03 AM PST) + +-------+ + + + | Component | Value | Ref Range | Performed | Pathologist | | | | | At | Signature | + +-------+ + + + | Erythrocyte | 5 | <15 mm/hr | [facility] | | | | | | [facility] | | | Sedimentati | | [...] [address] | [place] | [phone] | | [facility] | | [address] | | | - LABORATORY | | | | + + + + + Basic Metabolic Panel (09/05/2018 5:03 AM PST) + + + + + [...] + + + + | Cl | 104 | 98 - 109 mmol/L | [facility] [...] + + + + | Glucose | 235 (H) | 70 - 109 mg/dL | [facility] | | | | | [facility] | | | | | | MEDICAL | | | | | | CENTER - | | | | | | LABORATORY | | + + + + + + | BUN | 24 (H) | 7 - 18 mg/dL | [facility] | | | | | | [facility] | | | | | | MEDICAL | | | | | | CENTER - | | | | | | LABORATORY | | + + + + + + | Creatinine | 1.03 | 0.60 - 1.30 | [facility] | | | | | mg/dL | [facility] | | | | | | MEDICAL | | | | | | CENTER - | | | | | | LABORATORY | | + + + + + + | eGFR, | >60Comment: GLOMERULAR | >=60 | [facility] | | | non- | FILTRATION | mL/min/1.73m2 | [facility] | | | French | RATE,ESTIMATED | | MEDICAL | | | | mL/min/1.68y2Nmjg than | | CENTER - | | [...] | 8.3 | 8.3 - 10.5 | [facility] | | | | | mg/dL | [facility] | | | | | | MEDICAL | | | | | | CENTER - | | | | | | LABORATORY | | + + + + + + | BUN/Creatin | 23.3 | | [facility] | | | ine [...] [address] | [place] | [phone] | | [facility] | | [address] | | | - LABORATORY | | | | + + + + + Magnesium (09/05/2018 5:03 AM PST) + +-------+ + + + | Component | Value | Ref Range | Performed | Pathologist | | | | | At | Signature | + +-------+ + + + | Magnesium | 2.0 | 1.8 - 2.5 mg/dL | [facility] | | | | | | [facility] | | | | | [...] + | [facility] | [address] | [place] | [phone] | | [facility] | | [address] | | | - LABORATORY | | | | + + + + + CBC with Differential (09/05/2018 5:03 AM PST) + + + + + [...] + + + | Red Blood | 3.38 (L) | 4.30 - 5.70 | [facility] [...] + + + + | Hematocrit | 31.0 (L) | 40.0 - 51.0 % | [facility] | | | | | | [facility] | | | | | | MEDICAL | | | | | | CENTER - | | | | | | LABORATORY | | + + + + + + | MCV | 91.7 | 83.0 - 101.0 fL | [facility] | | | | | | [facility] | | | | | | MEDICAL | | | | | | CENTER - | | | | | | LABORATORY | | + + + + + + | MCH | 29.3 | 28.0 - 35.0 pg | [facility] [...] + + + + | RDW-SD | 49.1 (H) | 35.1 - 46.3 fL | [...] + + + + | MPV | 10.1 | 6.5 - 12.4 fL | [facility] | | | | | | [facility] | | | | | | MEDICAL | | | | | | CENTER - | | | | | | LABORATORY | | + + + + + + | % | 61.5 | 45.0 - 82.0 % | [facility] | | | Neutrophils | | | [facility] | | | | | | MEDICAL | | | | | | CENTER - | | | | | | LABORATORY | | + + + + + + | % | 22.9 | 20.0 - 45.0 % | [facility] | | | Lymphocytes | | | [facility] | | | | | | MEDICAL | | | | | | CENTER - | | | | | | LABORATORY | | + + + + + + | % Monocytes | 9.2 | 4.0 - 12.0 % | [facility] | | | | | | [facility] | | | | | | MEDICAL | | | | | | CENTER - | | | | | | LABORATORY | | + + + + + + | % | 5.3 (H) | 0.0 - 5.0 % | [...] + + + + | Absolute | 4.89 | 1.80 - 8.50 | [facility] | | | Neutrophils | | K/uL | [facility] | | | | | | MEDICAL | | | | | | CENTER - | | | | | | LABORATORY | | + + + + + + | Absolute | 1.82 | 0.60 - 3.20 | [facility] | | | Lymphocytes | | K/uL | [facility] | | | | | | MEDICAL | | | | | | CENTER - | | | | | | LABORATORY | | + + + + + + | Absolute | 0.73 | 0.00 - 1.00 | [facility] | | | Monocytes | | K/uL | [facility] | | | | | | MEDICAL | | | | | | CENTER - | | | | | | LABORATORY | | + + + + + + | Absolute | 0.42 (H) | 0.00 - 0.40 | [facility] [...] [address] | [place] | [phone] | | [facility] | | [address] | | | - LABORATORY | | | | + + + + + Culture, MRSA (09/04/2018 11:40 PM PST) + + + + + + | Component | Value | Ref Range | Performed | Pathologist | | | | | At | Signature | + + + + + + | Culture | Negative for MRSA by | | [facility] | | | | chromogenic agar method | | [facility] | | | | | | MEDICAL | | | | | | CENTER - | | | | | | LABORATORY | | + + + + + + + + | Specimen | + + | Tissue - Both | | anterior nares (body | | structure) | + + + + + + + | Performing | Address | City/State/Zipcode | Phone Number | | Organization | | | | + + + + + | [facility] | [address] | [place] | [phone] | | [facility] | | [address] | | | - LABORATORY | | | | + + + + + POC Glucose (09/04/2018 9:25 PM PST) + +---------+ + + + | Component | Value | Ref Range | Performed | Pathologist | | | | | At | Signature | + +---------+ + + + | Glucose, | 229 (H) | 70 - 109 mg/dL | [...] + | [facility] | [address] | [place] | [phone] | | [facility] | | [address] | | | - LABORATORY | | | | + + + + + Eosinophil Smear, Urine (09/04/2018 8:37 PM PST) + + + + + + | Component | Value | Ref Range | Performed | Pathologist | | | | | At | Signature | + + + + + + | Eosinophils | None seen | None seen | [facility] | | | , Urine | | | [facility] | [...] [address] | [place] | [phone] | | [facility] | | [address] | | | - LABORATORY | | | | + + + + + Creatinine, Urine, Random (09/04/2018 8:37 PM PST) + +-------+ + + + | Component | Value | Ref Range | Performed | Pathologist | | | | | At | Signature | + +-------+ + + + | Creatinine, | 66 | mg/dL | [facility] | | | Urine, | | | [facility] | | | Random | | | MEDICAL | | | | | | CENTER - | | | | | | LABORATORY | | + +-------+ + + + + + | Specimen | + + | Urine | + + + + + | Narrative | Performed At | + + + | The reference range and other method performance specifications have | [facility] | | not been established for this test. These results should be | [facility] | | integrated into the clinical context for interpretation. | [facility] | | | - LABORATORY | + + + + + + + + | Performing | Address | City/State/Zipcode | Phone Number | | Organization | | | | + + + + + | [facility] | [address] | [place], [place] | [phone] | | [facility] | | [address] | | | - LABORATORY | | | | + + + + + Sodium, Urine, Random (09/04/2018 8:37 PM PST) + +-------+ + + + | Component | Value | Ref Range | Performed | Pathologist | | | | | At | Signature | + +-------+ + + + | Sodium, | 81 | 27 - 287 mmol/L | [facility] | | | Urine | | | [facility] | | | Random | | | MEDICAL | | | [...] [address] | [place] | [phone] | | [facility] | | [address] | | | - LABORATORY | | | | + + + + + Drugs of Abuse, Screen, Urine (09/04/2018 8:37 PM PST) + + + + + [...] | s Screen, | | | [facility] | [...] [address] | [place] | [phone] | | [facility] | | [address] | | | - LABORATORY | | | | + + + + + Urinalysis with Microscopic with Culture if Indicated (09/04/2018 8:37 PM PST) + + + + + [...] + + + + | Specific | 1.014 | 1.001 - 1.030 | [facility] | | | [place], | | | [facility] | | | Urine | | | MEDICAL | | | | | | CENTER - | | | | | | LABORATORY | | + + + + + + | Protein, | Negative | Negative | [facility] | [...] Urine | | mg/dL, Negative | [facility] | | | | | | MEDICAL | | | | | | CENTER - | | | | | | LABORATORY | | + + + + + + | White Blood | 0-2 | 0 - 2 [...] + + + + | Squamous | 10-15 (A) | 0 - 2 /LPF | [...] + + + + + + | Amorphous | Few (A) | None Seen /HPF | [facility] | | | Crystals, | | | [facility] | | | Urine | | | MEDICAL | | | | | | CENTER - | | | | | | LABORATORY | | + + + + + + | Urine | Urine Culture Not | | [facility] | | | Comment | Indicated | | [facility] | | | [...] ST[facility] | [address] | [place] | [phone] | | [facility] | | [address] | | | - LABORATORY | | | | + + + + + XR Chest AP Portable (09/04/2018 5:32 PM PST) + + | Specimen | + + | | + + + + + | Narrative | Performed At | + + + | XR CHEST AP PORTABLE 09/04/2018 5:32 PM HISTORY: VASCULAR ACCESS | [facility] | | PROBLEM ALTERED MENTAL STATUS. COMPARISON: 03/04/2017 | | | Findings: The bilateral lungs are clear with no evidence for pleural | | | effusion or pneumothorax. Heart size is within normal limits. | | | Pulmonary vasculature is within normal limits. Aorta is normal. | | | Mediastinum is unremarkable. No acute osseous or soft tissue | | | abnormality identified. IMPRESSION - No acute intrathoracic | | | abnormality identified. Dictated and Signed by: Fabien Michelle MD | | | Electronically signed: 09/04/2018 8:03 PM | | + + + + + | Procedure Note | + + | Gloria, Rad Results In - 09/04/2018 8:06 PM PST XR CHEST AP PORTABLE 09/04/2018 5:32 PM | | | | HISTORY: VASCULAR ACCESS PROBLEM | | ALTERED MENTAL STATUS. | | | | COMPARISON: 03/04/2017 | | | | Findings: | | The bilateral lungs are clear with no evidence for pleural effusion or | | pneumothorax. Heart size is within normal limits. Pulmonary vasculature is | | within normal limits. Aorta is normal. Mediastinum is unremarkable. No acute | | osseous or soft tissue abnormality identified. | | | | IMPRESSION - | | No acute intrathoracic abnormality identified. | | | | Dictated and Signed by: Fabien Michelle MD | | Electronically signed: 09/04/2018 8:03 PM | + + + +---------+ + + | Performing | Address | City/State/Zipcode | Phone Number | | Organization | | | | + +---------+ + + | [facility] | | | | + +---------+ + + Culture, Blood (09/04/2018 4:33 PM PST) + + + + + + | Component | Value | Ref Range | Performed | Pathologist | | | | | At | Signature | + + + + + + | Culture | No growth after 5 days | | [facility] | | | | incubation. | | [facility] | | | [...] [address] | [place] | [phone] | | [facility] | | [address] | | | - LABORATORY | | | | + + + + + Salicylate Level (09/04/2018 4:28 PM PST) + +-------+ + + + | Component | Value | Ref Range | Performed | Pathologist | | | | | At | Signature | + +-------+ + + + | Salicylate | <4.0 | <30.0 mg/dL | [facility] | | | Level | | | [facility] | | [...] + | [facility] | [address] | [place] | [phone] | | [facility] | | [address] | | | - LABORATORY | | | | + + + + + Procalcitonin (09/04/2018 4:28 PM PST) + + + + + + | Component | Value | Ref Range | Performed | Pathologist | | | | | At | Signature | + + + + + + | Procalciton | 0.06 | <=0.50 ng/mL | [facility] | | [...] ST. | [address] | [place] | [phone] | | [facility] | | [address] | | | - LABORATORY | | | | + + + + + Ethanol (09/04/2018 4:28 PM PST) + +-------+ + + + | Component | Value | Ref Range | Performed | Pathologist | | | | | At | Signature | + +-------+ + + + | ALCOHOL, | <5 | <400 mg/dL | [facility] | | | SERUM/PLASM | | | [facility] | | | A | | | MEDICAL | | | [...] + | [facility] | [address] | [place] | [phone] | | [facility] | | [address] | | | - LABORATORY | | | | + + + + + Extra Green Top Tube (09/04/2018 4:28 PM PST) + +-------+ + + + [...] + | [facility] | [address] | [place] | [phone] | | [facility] | | [address] | | | - LABORATORY | | | | + + + + + Extra Lavender Top Tube (09/04/2018 4:28 PM PST) + +-------+ + + + [...] [address] | [place] | [phone] | | [facility] | | [address] | | | - LABORATORY | | | | + + + + + Procalcitonin (09/04/2018 4:28 PM PST) + + + + + + | Component | Value | Ref Range | Performed | Pathologist | | | | | At | Signature | + + + + + + | Procalciton | 0.06 | <=0.50 ng/mL | [facility] | | [...] + | [facility] | [address] | [place] | [phone] | | [facility] | | [address] | | | - LABORATORY | | | | + + + + + Culture, Blood (09/04/2018 4:28 PM PST) + + + + + + | Component | Value | Ref Range | Performed | Pathologist | | | | | At | Signature | + + + + + + | Culture | No growth after 5 days | | [facility] | | | | incubation. | | [...] + | [facility] | [address] | [place] | [phone] | | [facility] | | [address] | | | - LABORATORY | | | | + + + + + Lactic Acid (09/04/2018 4:28 PM PST) + +-------+ + + + | Component | Value | Ref Range | Performed | Pathologist | | | | | At | Signature | + +-------+ + + + | Lactate | 1.2 | 0.5 - 2.2 | [facility] | [...] [address] | [place] | [phone] | | [facility] | | [address] | | | - LABORATORY | | | | + + + + + Protime INR (09/04/2018 4:28 PM PST) + + + + + + | Component | Value | Ref Range | Performed | Pathologist | | | | | At | Signature | + + + + + + | Prothrombin | 13.7 | 11.3 - 13.9 | [facility] | | | Time | | seconds | [facility] | | | | | | MEDICAL | | | | | | CENTER - | | | | | | LABORATORY | | + + + + + + | INR | 1.1Comment: Usual Oral | 0.9 - 1.1 | [facility] | | | | Anticoagulation Range: | | [facility] | | | | 2.0 - 3.0High | | MEDICAL | | | | Level Oral | | CENTER - | | | | Anticoagulation Range: | | LABORATORY | | | | 2.5 - 3.5 | | | | + + + + + + + + | Specimen | + + | Blood | + + + + + + + | Performing | Address | City/State/Zipcode | Phone Number | | Organization | | | | + + + + + | [facility] | [address] | [place] | [phone] | | [facility] | | [address] | | | - LABORATORY | | | | + + + + + Comprehensive Metabolic Panel (09/04/2018 4:28 PM PST) + + + + + [...] + + + + | K | 4.6 | 3.5 - 5.1 | [facility] | | | | | mmol/L | [facility] | | | | | | MEDICAL | | | | | | CENTER - | | | | | | LABORATORY | | + + + + + + | Cl | 102 | 98 - 109 mmol/L | [facility] [...] + + + + | Glucose | 149 (H) | 70 - 109 mg/dL | [facility] | | | | | | [facility] | | | | | | MEDICAL | | | | | | CENTER - | | | | | | LABORATORY | | + + + + + + | BUN | 31 (H) | 7 - 18 mg/dL | [facility] | | | | | | [facility] | | | | | | MEDICAL | | | | | | CENTER - | | | | | | LABORATORY | | + + + + + + | Creatinine | 1.36 (H) | 0.60 - 1.30 | [facility] | | | | | mg/dL | [facility] | | | | | | MEDICAL | | | | | | CENTER - | | | | | | LABORATORY | | + + + + + + | eGFR, | 56 (L)Comment: | >=60 | [facility] | | | non- | GLOMERULAR FILTRATION | mL/min/1.73m2 | [facility] | | | French | RATE,ESTIMATED | | MEDICAL | | | | mL/min/1.62z3Escc than | | CENTER - | | [...] + + + + | Calcium | 8.7 | 8.3 - 10.5 | [facility] | | | | | mg/dL | [facility] | | | | | | MEDICAL | | | | | | CENTER - | | | | | | LABORATORY | | + + + + + + | Albumin | 3.5 | 3.2 - 5.0 g/dL | [facility] [...] | | Total | | | [facility] | | [...] + + + + | ALT | 15 | 6 - 45 U/L | [facility] [...] + + + + | Globulin | 3.2 | 2.1 - 3.8 g/dL | [facility] | | | | | | [facility] | | | | | | MEDICAL | | | | | | CENTER - | | | | | | LABORATORY | | + + + + + + | Albumin/Michelle | 1.1 | 0.8 - 2.0 | [facility] | | | bulin Ratio | | | [facility] | | | | | | MEDICAL | | | | | | CENTER - | | | | | | LABORATORY | | + + + + + + | BUN/Creatin | 22.8 | | [facility] | | | ine [...] + | [facility] | [address] | [place] | [phone] | | [facility] | | [address] | | | - LABORATORY | | | | + + + + + CBC with Differential (09/04/2018 4:28 PM PST) + + + + + + | Component | Value | Ref Range | Performed | Pathologist | | | | | At | Signature | + + + + + + | White Blood | 7.3 | 4.0 - 11.0 K/uL | [facility] [...] + + + + | Hematocrit | 32.3 (L) | 40.0 - 51.0 % | [...] + + + + | RDW-CV | 14.3 | <15.0 % | [facility] | | | | | | [facility] | | | | | | MEDICAL | | | | | | CENTER - | | | | | | LABORATORY | | + + + + + + | RDW-SD | 47.7 (H) | 35.1 - 46.3 fL | [facility] | | | | | | [facility] | | | | | | MEDICAL | | | | | | CENTER - | | | | | | LABORATORY | | + + + + + + | Platelet | 271 | 140 - 440 K/uL | [facility] | | | Count | | | [facility] | | | | | | MEDICAL | | | | | | CENTER - | | | | | | LABORATORY | | + + + + + + | MPV | 10.2 | 6.5 - 12.4 fL | [facility] | | | | | | [facility] | | | | | | MEDICAL | | | | | | CENTER - | | | | | | LABORATORY | | + + + + + + | % | 55.2 | 45.0 - 82.0 % | [facility] | | | Neutrophils | | | [facility] | | | | | | MEDICAL | | | | | | CENTER - | | | | | | LABORATORY | | + + + + + + | % | 27.3 | 20.0 - 45.0 % | [facility] | | | Lymphocytes | | | [facility] | | | | | | MEDICAL | | | | | | CENTER - | | | | | | LABORATORY | | + + + + + + | % Monocytes | 11.1 | 4.0 - 12.0 % | [facility] | | | | | | [facility] | | | | | | MEDICAL | | | | | | CENTER - | | | | | | LABORATORY | | + + + + + + | % | 5.6 (H) | 0.0 - 5.0 % | [...] + + + + | Absolute | 4.01 | 1.80 - 8.50 | [facility] | | | Neutrophils | | K/uL | [facility] | | | | | | MEDICAL | | | | | | CENTER - | | | | | | LABORATORY | | + + + + + + | Absolute | 1.99 | 0.60 - 3.20 | [facility] | | | Lymphocytes | | K/uL | [facility] | | | | | | MEDICAL | | | | | | CENTER - | | | | | | LABORATORY | | + + + + + + | Absolute | 0.81 | 0.00 - 1.00 | [facility] | | | Monocytes | | K/uL | [facility] | | | | | | MEDICAL | | | | | | CENTER - | | | | | | LABORATORY | | + + + + + + | Absolute | 0.41 (H) | 0.00 - 0.40 | [facility] | | | Eosinophils | | K/uL | [facility] | | | | | | MEDICAL | | | | | | CENTER - | | | | | | LABORATORY | | + + + + + + | Absolute | 0.03 | 0.00 - 0.10 | [facility] | [...] [address] | [place] | [phone] | | [facility] | | [id number] | | | - LABORATORY | | | | + + + + + POC Glucose (09/04/2018 4:17 PM PST) + +---------+ + + + | Component | Value | Ref Range | Performed | Pathologist | | | | | At | Signature | + +---------+ + + + | Glucose, | 157 (H) | 70 - 109 mg/dL | [...] + | [facility] | [address] | [place] | [phone] | | [facility] | | [id number] | | | - LABORATORY | | | | + + + + + documented in this encounter Visit Diagnoses + + | Diagnosis | + + | Opiate overdose, accidental or unintentional, initial encounter (HCC) - Primary | + + | Acute respiratory failure with hypoxia (HCC) Acute respiratory failure | + + | Hypotensive episode Hypotension, unspecified | + + | Noncompliance Personal history of noncompliance with medical treatment, presenting | | hazards to health | + + | POSSIBLE Infection of peripherally inserted central venous catheter (PICC), initial | | encounter | + + | CAYLA (acute kidney injury) (HCC) Acute kidney failure, unspecified | + + | Displacement of peripherally inserted central venous catheter (PICC) (HCC) | + + | Osteomyelitis of right foot, unspecified type (HCC) | + + | Type 2 diabetes mellitus with other specified complication, without long-term current | | use of insulin (HCC) | + + | Uncomplicated opioid dependence (HCC) Opioid type dependence, unspecified | + + | Opioid overdose, accidental or unintentional, initial encounter (HCC) | + + documented in this encounter Administered Medications + +--------+ +-------+------+------+ | Medication Order | MAR | Action | Dose | Rate | Site | | | Action | Date | | | | + +--------+ +-------+------+------+ | amphetamine-dextroamphetamine | Given | 09/07/20 | 30 mg | | | | (ADDERALL) tablet 30 mg 30 mg, | | 18 10:32 | | | | | Oral, DAILY, First dose on Sat | | AM PST | | | | | 09/05/18 at 0900 | | | | | | + +--------+ +-------+------+------+ +-------+ +-------+---+---+ | Given | 09/06/20 | 30 mg | | | | | 18 9:29 | | | | | | AM PST | | | | +-------+ +-------+---+---+ | Given | 09/05/20 | 30 mg | | | | | 18 8:59 | | | | | | AM PST | | | | +-------+ +-------+---+---+ +---+---+ | | | +---+---+ + +-------+ +--------+---+---+ | aspirin tablet 325 mg 325 mg, | Given | 09/07/20 | 325 mg | | | | Oral, DAILY, First dose on Sat | | 18 10:35 | | | | | 09/05/18 at 0900 | | AM PST | | | | + +-------+ +--------+---+---+ +-------+ +--------+---+---+ | Given | 09/06/20 | 325 mg | | | | | 18 9:30 | | | | | | AM PST | | | | +-------+ +--------+---+---+ | Given | 09/05/20 | 325 mg | | | | | 18 8:59 | | | | | | AM PST | | | | +-------+ +--------+---+---+ +---+---+ | | | +---+---+ + +-------+ +-------+---+---+ | atorvaSTATin (LIPITOR) tablet | Given | 09/07/20 | 40 mg | | | | 40 mg 40 mg, Oral, DAILY, First | | 18 10:34 | | | | | dose on 09/05/18 at 0900 | | AM PST | | | | + +-------+ +-------+---+---+ +-------+ +-------+---+---+ | Given | 09/06/20 | 40 mg | | | | | 18 9:30 | | | | | | AM PST | | | | +-------+ +-------+---+---+ | Given | 09/05/20 | 40 mg | | | | | 18 8:59 | | | | | | AM PST | | | | +-------+ +-------+---+---+ +---+---+ | | | +---+---+ + +---------+ +-----+-------+---+ | cefepime (MAXIPIME) 2 g in | New Bag | 09/04/20 | 2 g | 100 | | | sodium chloride 0.9% 50 mL IVPB | | 18 9:12 | | mL/hr | | | 2 g, Intravenous, Administer over | | PM PST | | | | | 30 Minutes, ONCE, 09/04/18 | | | | | | | at 2014, For 1 dose, Activate | | | | | | | system and mix before use., | | | | | | | Indications: Osteomyelitis | | | | | | + +---------+ +-----+-------+---+ +---+---+ | | | +---+---+ + +---------+ +-----+-------+---+ | cefepime (MAXIPIME) 2 g in | New Bag | 09/07/20 | 2 g | 100 | | | sodium chloride 0.9% 50 mL IVPB | | 18 10:27 | | mL/hr | | | 2 g, Intravenous, Administer over | | AM PST | | | | | 30 Minutes, EVERY 12 HOURS (2 | | | | | | | times per day), First dose on Sat | | | | | | | 09/05/18 at 0900, Pharmacist may | | | | | | | adjust Activate system and mix | | | | | | | before use., Indications: | | | | | | | Osteomyelitis | | | | | | + +---------+ +-----+-------+---+ +---------+ +-----+-------+---+ | New Bag | 09/06/20 | 2 g | 100 | | | | 18 8:23 | | mL/hr | | | | PM PST | | | | +---------+ +-----+-------+---+ | New Bag | 09/06/20 | 2 g | 100 | | | | 18 9:38 | | mL/hr | | | | AM PST | | | | +---------+ +-----+-------+---+ +---+---+ | | | +---+---+ + +-------+ +--------+---+---+ | cholecalciferol (VITAMIN D-3) | Given | 09/07/20 | 1,000 | | | | tablet 1,000 Units 1,000 Units, | | 18 10:34 | Units | | | | Oral, DAILY, First dose on Sat | | AM PST | | | | | 09/05/18 at 0900 | | | | | | + +-------+ +--------+---+---+ +-------+ +--------+---+---+ | Given | 09/06/20 | 1,000 | | | | | 18 9:30 | Units | | | | | AM PST | | | | +-------+ +--------+---+---+ | Given | 09/05/20 | 1,000 | | | | | 18 8:59 | Units | | | | | AM PST | | | | +-------+ +--------+---+---+ + +---+ | | | + +---+ | dextrose 50% injection 12.5 g | | | 12.5 g, Intravenous, PRN, Low | | | Blood Sugar, Starting Fri | | | 09/04/18 at 5 | | + +---+ | | | + +---+ + +-------+ +-------+---+ + | enoxaparin (LOVENOX) 40 mg/0.4 | Given | 09/07/20 | 40 mg | | Abdomen- | | mL injection 40 mg 40 mg, | | 18 10:35 | | | LLQ | | Subcutaneous, EVERY 24 HOURS | | AM PST | | | | | (Daily), First dose on Sat | | | | | | | 09/05/18 at 0900 | | | | | | + +-------+ +-------+---+ + +-------+ +-------+---+ + | Given | 09/06/20 | 40 mg | | Arm-Righ | | | 18 9:30 | | | t Upper | | | AM PST | | | | +-------+ +-------+---+ + | Given | 09/05/20 | 40 mg | | Abdomen- | | | 18 9:03 | | | LUQ | | | AM PST | | | | +-------+ +-------+---+ + +---+---+ | | | +---+---+ + +-------+ + +---+ + | insulin glargine (LANTUS | Given | 09/07/20 | 12 Units | | Arm-Righ | | SOLOSTAR) injection (pen) 12 | | 18 10:43 | | | t Upper | | Units 12 Units, Subcutaneous, | | AM PST | | | | | EVERY MORNING, First dose (after | | | | | | | last modification) on Mon | | | | | | | 09/07/18 at 0900, For | | | | | | | subcutaneous use only. Basal | | | | | | | (long acting) insulin., | | | | | | + +-------+ + +---+ + +---+---+ | | | +---+---+ + +-------+ +---------+---+ + | insulin glargine (LANTUS | Given | 09/06/20 | 8 Units | | Arm-Left | | SOLOSTAR) injection (pen) 8 Units | | 18 9:37 | | | Upper | | 8 Units, Subcutaneous, EVERY | | AM PST | | | | | MORNING, First dose on Sun | | | | | | | 09/06/18 at 0930, For | | | | | | | subcutaneous use only. Basal | | | | | | | (long acting) insulin., | | | | | | + +-------+ +---------+---+ + +---+---+ | | | +---+---+ + +-------+ +---------+---+ + | insulin lispro (humaLOG | Given | 09/06/20 | 4 Units | | Arm-Righ | | KWIKPEN) injection (pen) 0-6 | | 18 7:53 | | | t Upper | | Units 0-6 Units, Subcutaneous, 4 | | AM PST | | | | | TIMES DAILY WITH MEALS & | | | | | | | NIGHTLY, First dose on Fri | | | | | | | 09/04/18 at 2100, CORRECTION | | | | | | [...] | | | | | NPO, Daytime [phone] Use NIGHT | | | | | | | DOSE for doses scheduled: | | | | | | | HS, 3AM, Nighttime [phone], | | | | | | + +-------+ +---------+---+ + +-------+ +---------+---+ + | Given | 09/05/20 | 1 Units | | Arm-Left | | | 18 8:17 | | | Upper | | | PM PST | | | | +-------+ +---------+---+ + | Given | 09/05/20 | 5 Units | | Arm-Left | | | 18 5:47 | | | Upper | | | PM PST | | | | +-------+ +---------+---+ + +---+---+ | | | +---+---+ + +-------+ +---------+---+ + | insulin lispro (humaLOG | Given | 09/06/20 | 3 Units | | Abdomen- | | KWIKPEN) injection (pen) 0-6 | | 18 8:41 | | | LLQ | | Units 0-6 Units, Subcutaneous, 4 | | PM PST | | | | | TIMES DAILY WITH MEALS & | | | | | | | NIGHTLY, First dose on Sun | | | | | | | 09/06/18 at 1200, CORRECTION | | | | [...] | | | | | NPO, Daytime [phone] Use NIGHT | | | | | | | DOSE for doses scheduled: | | | | | | | HS, 3AM, Nighttime 7931-2867, | | | | | | + +-------+ +---------+---+ + +-------+ +---------+---+ + | Given | 09/06/20 | 4 Units | | Arm-Righ | | | 18 5:30 | | | t Upper | | | PM PST | | | | +-------+ +---------+---+ + | Given | 09/06/20 | 2 Units | | Arm-Left | | | 18 11:40 | | | Upper | | | AM PST | | | | +-------+ +---------+---+ + +---+---+ | | | +---+---+ + +-------+ +-------+---+---+ | methadone tablet 15 mg 15 mg, | Given | 09/07/20 | 15 mg | | | | Oral, EVERY 12 HOURS (2 times per | | 18 10:33 | | | | | day), First dose on 09/05/18 | | AM PST | | | | | at 2100 | | | | | | + +-------+ +-------+---+---+ +-------+ +-------+---+---+ | Given | 09/06/20 | 15 mg | | | | | 18 8:22 | | | | | | PM PST | | | | +-------+ +-------+---+---+ | Given | 09/06/20 | 15 mg | | | | | 18 9:30 | | | | | | AM PST | | | | +-------+ +-------+---+---+ +---+---+ | | | +---+---+ + +-------+ +--------+---+---+ | naloxone (NARCAN) 0.4 mg/mL | Given | 09/04/20 | 0.4 mg | | | | injection 0.4 mg 0.4 mg, | | 18 4:19 | | | | | Intravenous, ONCE, 09/04/18 | | PM PST | | | | | at 1615, For 1 dose | | | | | | + +-------+ +--------+---+---+ +---+---+ | | | +---+---+ + +-------+ +--------+---+---+ | naloxone (NARCAN) 0.4 mg/mL | Given | 09/04/20 | 0.4 mg | | | | injection 0.4 mg 0.4 mg, | | 18 5:39 | | | | | Intravenous, ONCE, 09/04/18 | | PM PST | | | | | at 1625, For 1 dose | | | | | | + +-------+ +--------+---+---+ + +---+ | | | + +---+ | naloxone (NARCAN) 0.4 mg/mL | | | injection Starting 09/04/18 | | | at 1622, For 1 dose, Bello Martinez | | | : araceli rae, | | + +---+ | | | + +---+ + +---------+ +-------+-------+---+ | naloxone (NARCAN) 4 mcg/mL in | New Bag | 09/05/20 | 0.4 | 100 | | | sodium chloride 0.9% 500 mL | | 18 12:21 | mg/hr | mL/hr | | | infusion 0.4 mg/hr (100 mL/hr), | | PM PST | | | | | at 100 mL/hr, Intravenous, | | | | | | | TITRATED, Starting 09/04/18 | | | | | | | at 1745 | | | | | | + +---------+ +-------+-------+---+ + + +-------+-------+---+ | Restarted | 09/05/20 | 0.4 | 100 | | | | 18 11:40 | mg/hr | mL/hr | | | | AM PST | | | | + + +-------+-------+---+ | Rate/Dose Verify | 09/04/20 | 0.4 | 100 | | | | 18 9:43 | mg/hr | mL/hr | | | | PM PST | | | | + + +-------+-------+---+ +---+---+ | | | +---+---+ + +-------+ +-------+---+---+ | pantoprazole (PROTONIX) DR | Given | 09/07/20 | 40 mg | | | | tablet 40 mg 40 mg, Oral, DAILY | | 18 6:07 | | | | | BEFORE BREAKFAST, First dose on | | AM PST | | | | | 09/05/18 at 0700, Indication: | | | | | | | GERD | | | | | | + +-------+ +-------+---+---+ +-------+ +-------+---+---+ | Given | 09/06/20 | 40 mg | | | | | 18 7:53 | | | | | | AM PST | | | | +-------+ +-------+---+---+ | Given | 09/05/20 | 40 mg | | | | | 18 7:38 | | | | | | AM PST | | | | +-------+ +-------+---+---+ +---+---+ | | | +---+---+ + +---------+ +--------+-------+---+ | sodium chloride 0.9% (NS) bolus | New Bag | 09/04/20 | 2,478 | 9912 | | | 2,478 mL 2,478 mL (30 mL/kg | | 18 4:42 | mLs | mL/hr | | | 82.6 kg), Intravenous, | | PM PST | | | | | Administer over 15 Minutes, ONCE, | | | | | | | Fri09/04/18 at 1615, For 1 dose | | | | | | + +---------+ +--------+-------+---+ +---+---+ | | | +---+---+ + +---------+ +---+-------+---+ | sodium chloride 0.9% (NS) | New Bag | 09/05/20 | | 100 | | | infusion at 100 mL/hr, | | 18 7:56 | | mL/hr | | | Intravenous, CONTINUOUS, Starting | | AM PST | | | | | 09/04/18 at 2030 | | | | | | + +---------+ +---+-------+---+ +---------+ +---+-------+---+ | New Bag | 09/04/20 | | 100 | | | | 18 9:43 | | mL/hr | | | | PM PST | | | | +---------+ +---+-------+---+ +---+---+ | | | +---+---+ + +-------+ +--------+---+---+ | tamsulosin (FLOMAX) capsule 0.4 | Given | 09/07/20 | 0.4 mg | | | | mg 0.4 mg, Oral, DAILY AFTER | | 18 10:35 | | | | | BREAKFAST, First dose on Sat | | AM PST | | | | | 09/05/18 at 0900, May open | | | [...] +-------+ +--------+---+---+ +-------+ +--------+---+---+ | Given | 09/06/20 | 0.4 mg | | | | | 18 9:30 | | | | | | AM PST | | | | +-------+ +--------+---+---+ | Given | 09/05/20 | 0.4 mg | | | | | 18 8:59 | | | | | | AM PST | | | | +-------+ +--------+---+---+ +---+---+ | | | +---+---+ documented in this encounter
--- OUTSIDE RECORDS SUMMARY | ~2020-06-16 | XMS | Encounter Summary ---
Demographics + + + | Address | [address] | | | [place] [address] | + + + | Home Phone [...] [place], | | | | | [place] [address] | | + + + + + Care Team Providers + +------+ + | Care Parts Counterperson Name | Role | Phone | + [...] Osteomyeliti | MD [address] | | | | | s, | [address] | [place], | | | | | Rocephin,IV, | [place], | [place] [address] | | | | | or IM 2G | [place] | Phone: | | | | | daily X42 | [address] | [phone] | | | | | days | Phone: | Fax: | | | | | Procedures | [phone] | [phone] | | | | | [place] | Fax: | | | | | | CEFTRIAXONE | [phone] | | | | | | SODIUM | | | | | | | INJECTION, | | | | | | | 250 MG LA | | | | | | | [...] | +--------+ + + + + | 12/03/ | Hospital [facility] | [facility], | Chronic | | 2019 | Encounter | MED CTR OP INFUSION | MD [address] | osteomyelitis of toe | | | | [address] | [place] | of right foot (HCC) | | | | [place], [place] | [address] | | | | | [address] | [phone] | | | | | [phone] | | | +--------+ + + + [...] + + + | Blood Pressure | 124/67 | 12/03/2018 12:56 PM | | | | | PDT | | + + + + + | Pulse | 98 | 12/03/2018 12:56 PM | | | | | PDT | | + + + + + | Temperature | 36.8 C (98.2 F) | 12/03/2018 12:56 PM | | | | | PDT | | + + + + + | Respiratory Rate | 18 | 12/03/2018 12:56 PM | | | | | PDT | | + + + + + | Oxygen Saturation | 99% | 12/03/2018 12:56 PM | | | | | [...] encounter Progress Notes Estefania Feliz RN - 12/03/2018 1:07 PM PDT Vitals: 12/03/18 1225 12/03/18 1256 BP: 122/62 124/67 Pulse: 102 98 Resp: 18 18 Temp: 36.8 C (98.2 F) SpO2: 100% 99% Administrations This Visit cefTRIAXone (ROCEPHIN) 2 g in sodium chloride 0.9% 50 mL IVPB Admin Date 12/03/2018 Action New Bag Dose 2 g Rate 100 mL/hr Route Intravenous Administered By Estefania Feliz RN Monitored throughout treatment; treatment completed without untoward effects from medicatio n noted. Next visit Friday12-04-18 Verbalizes understanding of plan of care. VS stable. Disc harged ambulatory to home in stable condition. Electronically signed by: Estefania Feliz RN 12/03/2018 13:07 Ita Apple RN - 0 12/03/2018 12:15 PM PDT Vitals: 12/03/18 1225 BP: 122/62 Pulse: 102 Resp: 18 Cecilio Arias received into room 440, independent ambulation accompanied by . States here for antibotic infusion. Reports no change in condition, plan of care since last MD visit. Alert, oriented x 4, cooperative. Electronically signed by: Ita Holbrook RN 12/03/2018 12:30 documented in this encounter Plan of Treatment [...] 2 g in | New Bag | 12/04/19 | 2 g | 100 | | | sodium chloride 0.9% 50 mL IVPB | | 19 12:25 | | mL/hr | | | 2 g, Intravenous, Administer over | | PM PDT | | | | | 30 Minutes, ONCE, [facility] 12/03/18 at | | | | | | [...]
--- OUTSIDE RECORDS SUMMARY | ~2020-06-16 | XMS | Encounter Summary ---
Demographics + + + | Address | [address] | | | [place] [address] | + + + | Home Phone [...] [place], | | | | | [place] [address] | | + + + + + Care Team Providers + +------+ + | Care Patternmaker Sample Name | Role | Phone | + [...] | Osteomyeliti | [address] | | | | | s [address]enu | [address] | [place], | | | | | Radames | [place], | [place] [address] | | | | | Cefepime for | [place] | Phone: | | | | | | [address] | [phone] | | | | | osteomyeliti | Phone: | Fax: | | | | | s Will get | [phone] | [phone] | | | | | 2 doses, | Fax: | | | | | | then cedric | [phone] | | | | | | will take | | | | | | | over | | | | | | | Procedures | | | | | | | TX CEFEPIME | | | | | | | HCL FOR | | | | | | | INJECTION, | | | | | | | 500 MG TX | | | | | | | [...] | +--------+ + + + + | 08/11/ | Hospital | [facility] | Alexander Crum, | Acute osteomyelitis | | 2018 | Encounter | MED CTR OP INFUSION | MD [address] | of toe of right foot | | | | [address] | [place] | ([facility]) | | | | [place] | [address] | | | | | [address] | [phone] | | | | | [phone] | | | +--------+ + + + [...] + + + | Blood Pressure | 124/63 | 08/11/2018 9:00 AM | | | | | PST | | + + + + + | Pulse | 101 | 08/11/2018 9:00 AM | | | | | PST | | + + + + + | Temperature | 36.8 C (98.2 F) | 08/11/2018 8:33 AM | | | | | PST | | + + + + + | Respiratory Rate | 18 | 08/11/2018 9:00 AM | | | | | PST | | + + + + + | Oxygen Saturation | 95% | 08/11/2018 9:00 AM | | | | | [...] 0 | 07/09/20 | | | SYR [id number]/2 22G X | TESTOSTERONE TWICE A | [...] encounter Progress Notes Katiana Frankel RN - 08/11/2018 9:09 AM PST Vitals: 08/11/18 0833 08/11/18 0900 BP: 136/67 124/63 Pulse: 101 101 Resp: 18 18 Temp: 36.8 C (98.2 F) TempSrc: Oral SpO2: 97% 95% Administrations This Visit cefepime (MAXIPIME) 2 g in sodium chloride 0.9% 50 mL IVPB Admin Date 08/11/2018 Action New Bag Dose 2 g Rate 100 mL/hr Route Intravenous Administered By Katiana Frankel RN Monitored throughout treatment; treatment completed without untoward effects from medicatio n noted. Therapy plan completed, no further appt needed.. Verbalizes understanding of plan o f care. VS stable. Discharged ambulatory to home in stable condition. Electronically signed by: Katiana Frankel RN 08/11/2018 9:09 Katiana Schuster RN - 1 10/11/2017 8:34 AM PST Vitals: 08/11/18 0833 BP: 136/67 Pulse: 101 Resp: 18 Temp: 36.8 C (98.2 F) Cecilio Arias received into room 440, independent ambulation accompanied b y his friend. States here for Cefepime infusion. Reports no change in condition, plan of car e since last MD visit. Alert, oriented x 4, cooperative. Tefna from [facility] here to see santiago thomas. Electronically signed by: Katiana Frankel RN 08/11/2018 8:34 documented in this enc ounter Plan of [...] 2 g in | New Bag | 08/11/20 | 2 g | 100 | | | sodium chloride 0.9% 50 mL IVPB | | 18 8:31 | | mL/hr | | | 2 g, Intravenous, Administer over | | AM PST | | | | | 30 Minutes, ONCE, 08/11/18 | | | | | | | at 0800, For 1 dose, Twice daily | | [...]
--- OUTSIDE RECORDS SUMMARY | ~2020-06-16 | XMS | Encounter Summary ---
Demographics + + + | Address | [address] | | | [place] [address] | + + + | Home Phone | | + + + | Preferred Language | Unknown | + + + | Marital Status | | + + + | Amish Affiliation | Unknown | + + + | Race | White | + + + | Ethnic Group | Not or | + + + Author + + + | Author | [facility] | | | and [place] | + + + | Organization | [facility] | | | [...] [place], | | | | | [place] [address] | | + + + + + Care Team Providers + +------+ + | Care Telephone Order Supervisor Name | Role | Phone | + +------+ + | Dimitri Fischer MD | PCP | | + +------+ + Encounter Details +--------+ + + + + | Date | Type | Department | Care Team | Description | +--------+ + + + + | 03/18/ | Abstract | [facility] [place] | Surendra Vaughn | | | 2016 | | NEPHROLOGY [address] | M, DO [address] | | | | [address] | [address] [place] | | | | | [place], [place] | [place] [address] | | | | | [address] | [phone] | | | | | [phone] | | | +--------+ + + + [...] + documented as of this encounter Progress Ida Gaffney - 03/18/2017 11:47 AM PDTOutside record: Received from Dimitri Fischer MD, [facility]. Dos: 03/12/17. Sent to scan. documented in this encounter Plan of Treatment Not on filedocumented as of this encounter Visit Diagnoses Not on filedocumented in this encounter"
--- OUTSIDE RECORDS SUMMARY | ~2020-06-16 | XMS | Encounter Summary ---
Demographics + + + | Address | [address] | | | [place] [address] | + + + | Home Phone [...] + + + | Author | [facility] | | | and [place] | + + + | Organization | [facility] | | | and [...] [place], | | | | | [place] [address] | | + + + + + Care Team Providers + +------+ + | Care A R Specialist Name | Role | Phone | + +------+ + | Dimitri Fischer MD | PCP | | + +------+ + Encounter Details +--------+ + + + + | Date | Type | Department | Care Team | Description | +--------+ + + + + | 04// | Orders Only | [facility] [place] | Marty Wood | Smoker (Primary Dx); | | 2017 | | ORTHOPEDIC SURGERY | MD Gosia [address] | Preop testing | | | | [address] | [place] | | | | | [place] | [address] | | | | | [address] | | | | | | [phone] | | | +--------+ + + + [...] on filedocumented as of this encounter Results Nicotine and Metabolites (01/13/2018 3:47 PM PDT) + + + + + + | Component | Value | Ref Range | Performed | Pathologist | | | | | At | Signature | + + + + + + | NICOTINE, | None DetectedComment: | ng/mL | REFERENCE | | | BLOOD | Nicotine levels greater | | LAB [facility] | | | | than 2.0 are consistent | | - [facility] | | | | with the use oftobacco | | | | | | or tobacco cessation | | | | | | products. | | | | + + + + + + | COTININE, | None DetectedComment: | ng/mL | REFERENCE | | | BLOOD | Cotinine levels greater | | LAB [facility] | | | | than 20.0 are consistent | | - [facility] | | | | with the use oftobacco | | | | | | or tobacco cessation | | | | | | products. | | | | + + + + + + + + | Specimen | + + | Blood | + + + + + | Narrative | Performed At | + + + | Performed at: 01 - [facility] [address] [facility], | REFERENCE LAB | | [place], [place] [id number] Film Tests Checker: Amish Duarte MD, Phone: | [facility] | | [phone] | | + + + + + + + + | Performing | Address | City/State/Zipcode | Phone Number | | Organization | | | | + + + + + | REFERENCE LAB | [address] | [place], [place] | [phone] | | [facility] | [address] [facility] | [address] | | + + + + + Nicotine and Metabolites (01/05/2018 12:00 PM PDT) + + + + + + | Component | Value | Ref Range | Performed | Pathologist | | | | | At | Signature | + + + + + + | NICOTINE, | None DetectedComment: | ng/mL | REFERENCE | | | BLOOD | Nicotine levels greater | | LAB [facility] | | | | than 2.0 are consistent | | - [facility] | | | | with the use oftobacco | | | | | | or tobacco cessation | | | | | | products. | | | | + + + + + + | COTININE, | 2.9Comment: Cotinine | ng/mL | REFERENCE | | | BLOOD | levels greater than 20.0 | | LAB [facility] | | | | are consistent with the | | - [facility] | | | | use oftobacco or | | | | | | tobacco cessation | | | | | | products. | | | | + + + + + + + + | Specimen | + + | Blood | + + + + + | Narrative | Performed At | + + + | Performed at: 01 - [facility] [address], | REFERENCE LAB | | [place] [id number] Film Tests Checker: Amish Duarte MD, Phone: | [facility] | | [phone] | | + + + + + + + + | Performing | Address | City/State/Zipcode | Phone Number | | Organization | | | | + + + + + | REFERENCE LAB | [address] | [place], [place] | [phone] | | [facility] | [address] | [address] | | + + + + + Nicotine and Metabolites (12/29/2017 2:19 PM PDT) + + + + + + | Component | Value | Ref Range | Performed | Pathologist | | | | | At | Signature | + + + + + + | NICOTINE, | None DetectedComment: | ng/mL | REFERENCE | | | BLOOD | Nicotine levels greater | | LAB [facility] | | | | than 2.0 are consistent | | - [facility] | | | | with the use oftobacco | | | | | | or tobacco cessation | | | | | | products. | | | | + + + + + + | COTININE, | 4.9Comment: Cotinine | ng/mL | REFERENCE | | | BLOOD | levels greater than 20.0 | | LAB [facility] | | | | are consistent with the | | - [facility] | | | | use oftobacco or | | | | | | tobacco cessation | | | | | | products. | | | | + + + + + + + + | Specimen | + + | Blood | + + + + + | Narrative | Performed At | + + + | Performed at: 01 - [facility] [address] [facility], | REFERENCE LAB | | [place], [place] [phone] Film Tests Checker: Amish Duarte MD, Phone: | [facility] | | [phone] | | + + + + + + + + | Performing | Address | City/State/Zipcode | Phone Number | | Organization | | | | + + + + + | REFERENCE LAB | [address] | [place] | [phone] | | [facility] | [address] | [address] | | + + + + + documented in this encounter Visit Diagnoses + + | Diagnosis | + + | Smoker - Primary Tobacco use disorder | + + | Preop testing Preoperative examination, unspecified | + + documented in this encounter"
--- OUTSIDE RECORDS SUMMARY | ~2020-06-16 | XMS | Encounter Summary ---
Demographics + + + | Address | [address] | | | [place] [address] | + + + | Home Phone [...] [place], | | | | | [place] [address] | | + + + + + Care Team Providers + +------+ + | Care Clam Dredger Name | Role | Phone | + +------+ + PCP | Unavailable | + +------+ + Reason for Visit + + + | Reason | Comments | + + + | Shortness of Breath | | + + + | Chest Pain | | + + + Encounter Details +--------+ + + + + | Date | Type | Department | Care Team | Description | +--------+ + + + + | 06/13/ | Emergency | [facility] | Lamont Pierre MD | Pneumonia, | | 2014 | | [facility] | [address] | unspecified | | | | CENTER [address] | [place] | laterality, | | | | [place] | [id number] | unspecified part of | | | | [address] | | lung (Primary Dx) | | | | [phone] | | | +--------+ + + + [...] + + + | Blood Pressure | 154/47 | 06/13/2015 4:47 AM | | | | | PDT | | + + + + + | Pulse | 98 | 06/13/2015 4:47 AM | | | | | PDT | | + + + + + | Temperature | 37.2 C (99 F) | 06/13/2015 4:47 AM | | | | | PDT | | + + + + + | Respiratory Rate | 16 | 06/13/2015 4:47 AM | | | | | PDT | | + + + + + | Oxygen Saturation | 94% | 06/13/2015 4:47 AM | | | | | PDT | | + + + + + | Inhaled Oxygen | - | - | | | Concentration | | | | + + + + + | Weight | 109.3 kg (241 lb) | 06/13/2015 1:46 AM | | | | | PDT | | + + + + + | Height | 182.9 cm (6' 0.01") | 06/13/2015 1:46 AM | | | | | PDT | | + + + + + | Body Mass Index | 32.68 | 06/13/2015 1:46 AM | | | | | PDT | | + + + + + documented in this encounter Discharge Instructions Instructions Lamont Pierre MD - 06/13/2015ntibiotic as prescribed Major inhaler as needed Tylenol and/or ibuprofen for fever and aches and pains Return for worsening symptoms, not improving, other new complaints AttachmentsThe following attachments cannot be sent through Care Everywhere.ADULT, PNEUMONI A (WELSH)documented in this encounter Medications at Time of [...] + + + +---------+ + + | levofloxacin | Take 1 tablet by | 7 | 0 | 06/13/20 | | | (LEVAQUIN) 500 mg | mouth Daily for 7 | tablet | | 15 | 5 | | tablet | days. | | [...] encounter ED Notes Monique Live RN - 06/13/2015 4:49 AM PDTRx given. All questions answered.Electronica lly signed by Monique Live RN at 06/13/2015 4:50 AM Lamont Murrieta MD - 06/13/2015 1:59 AM PDT [facility] Arias Emergency Department Encounter Note [address] [place] [id number] PCP:Will Capellan MD [phone] CHIEF COMPLAINT: Shortness of breath HPI Cecilio Arias is a 45 y.o. male who presents to the Emergency Department w ith shortness of breath is been ongoing for 3 or 4 days. His been slowly worsening. He has had intermittent chest pain associated with the cough. He has had a productive cough. No hemoptysis. No leg pain or swelling. No prolonged immobility. He's not had known fever. He has had a sick contact his daughter who had URI symptoms although she improved. He's not had radiation of his chest pain. No diaphoresis. No syncope. He has had some lightheaded ness. He's been able to eat and drink. His symptoms really worsened tonight. PAST MEDICAL & SURGICAL HISTORY Past Medical History Diagnosis Date Emphysema of lung (HCC) Osteoporosis Seizure (HCC) Diabetes mellitus (HCC) GERD (gastroesophageal reflux disease) Vitamin D deficiency Testosterone deficiency Elevated cholesterol Immune deficiency disorder (HCC) Lab results placed in chart regarding [id number] Phenotype. Past Surgical History Procedure Laterality Date Knee arthroscopy Right 12/05/2014 Procedure: Right Knee Arthroscopy with Partial Medial Menisectomy and Medial- Femoral Cho ndroplasty; Surgeon: Marty Wood MD; Location: [facility] OR CURRENT MEDICATIONS Previous Medications ALBUTEROL (VENTOLIN HFA) 90 MCG/PUFF INHALER Inhale 2 puffs into the lungs every 6 hour s as needed. B-D ULTRAFINE III SHORT PEN 31G X 8 MM TERRI CONTOUR TEST STRIP CELECOXIB (CELEBREX) 200 MG CAPSULE Take 1 capsule by mouth Daily. CHOLECALCIFEROL (VITAMIN D PO) Take by mouth. CHOLECALCIFEROL (VITAMIN D-3) 1,000 UNITS CAPSULE CYCLOBENZAPRINE HCL PO Take by mouth. GABAPENTIN (NEURONTIN) 300 MG CAPSULE Take 1-3 capsules by mouth 3 times daily. INSULIN GLARGINE (LANTUS SOLOSTAR) 100 UNITS/ML INJECTION PEN Inject 80 Units under the skin nightly. LISINOPRIL (PRINIVIL, ZESTRIL) 5 MG TABLET Take 5 mg by mouth Daily. METFORMIN (GLUCOPHAGE) 1000 MG TABLET Take 1,000 mg by mouth 2 times daily (with breakf ast & dinner). METHADONE 10 MG TABLET Take 10 mg by mouth every 8 hours as needed. OMEPRAZOLE (PRILOSEC) 20 MG CAPSULE Take 20 mg by mouth every morning (before breakfast ). ONDANSETRON (ZOFRAN ODT) 4 MG DISINTEGRATING TABLET Take 1 tablet by mouth every 8 hour s as needed for Nausea for up to 7 days. OXYCODONE (ROXICODONE) 30 MG IMMEDIATE RELEASE TABLET Take 1 tablet by mouth every 6 ho urs as needed for Pain. SIMVASTATIN (ZOCOR) 40 MG TABLET Take 20 mg by mouth nightly. TESTOSTERONE CYPIONATE (DEPO-TESTOSTERONE) 200 MG/ML INJECTION Inject into the muscle every 14 days. FAMILY HISTORY No family history on file. SOCIAL HISTORY History Social History Marital Status: Single Spouse Name: N/A Number of Children: N/A Years of Education: N/A Social History Main Topics Smoking status: Current Every Day Smoker -- 0.50 packs/day Types: Cigarettes Last Attempt to Quit: 08/18/2014 Smokeless tobacco: Never Used Alcohol Use: No Drug Use: Yes Special: Marijuana Sexual Activity: None Other Topics Concern None Social History Narrative REVIEW OF SYSTEMS As in history of present illness. A 10 system of review was otherwise negative. PHYSICAL EXAM VITAL SIGNS: (first vital signs):Temp: (!) 38 C (100.4 F) Pulse: 108 Resp: 20 SpO2: 95 % BP: 139/67 mmHg General: Alert, appears uncomfortable, non toxic HEENT: Normocephalic, atraumatic, OP clear, PERRL, EOMI Neck: supple, full range of motion, no tracheal deviation Cardiovascular: Tachycardic rate and rhythm, no murmurs, rubs or gallops Pulmonary: CTA bilateral, some crackles on the right, mild tachypnea no respiratory distres s Abdominal: Soft, non tender, no rebound or guarding Pelvic/: deferred Musculoskeletal: normal ROM, no tenderness Neurologic: Alert, no cranial nerve deficits, no focal deficits Skin: warm and dry EKG Sinus tachycardia, 111 bpm, no acute ischemic changes LABS CBC White blood cell count 16, some anemia BMP glucose 179 otherwise unremarkable D-dimer elevated 0.55 Troponin negative IMAGING STUIDES (X-Rays interpreted by ED Physician) X-ray chest some fluid overload with left markings greater than right CT PE reveals infiltrates without PE ASSESSMENT & ED COURSE: Patient here with pneumonia. He does not appear otherwise systemically although does have an elevated white blood cell count. He is treated with Levaquin IV here. Sounds like this started as a URI but is now developed into a jing pneumonia. He otherwise appears safe for treatment as an outpatient. To return for worsening symptoms other complaints DISPOSITION: Patient discharged home FINAL IMPRESSION: Pneumonia Lamont Pierre MD 06/13/15 0451 documente d in this encounter Miscellaneous Notes ED Triage Notes - Monique Live RN - 06/13/2015 1:45 AM PDTPt c/o sob x [address] ates that it got worse this evening and started having CP, numbness in bilateral hands and l ips and PATTON. documente d in this encounter Plan of Treatment Not on filedocumented as of this encounter Procedures + +--------+ + + + | Procedure Name | Priori | Date/Time | Associated Diagnosis | Comments | | | ty | | | | + +--------+ + + + | EXTRA GOLD TOP TUBE | Routin | 06/13/2015 | | Results for this | | | e | 3:58 AM | | procedure are in the | | | | PDT | | results section. | + +--------+ + + + | CT ANGIOGRAM | STAT | 06/13/2015 | | Results for this | | PULMONARY | | 3:35 AM | | procedure are in the | | | | PDT | | results section. | + +--------+ + + + | XR CHEST AP PORTABLE | STAT | 06/13/2015 | | Results for this | | | | 2:24 AM | | procedure are in the | | | | PDT | | results section. | + +--------+ + + + | CBC W/AUTO | STAT | 06/13/2015 | | Results for this | | DIFFERENTIAL | | 2:06 AM | | procedure are in the | | | | PDT | | results section. | + +--------+ + + + | TROPONIN I | STAT | 06/13/2015 | | Results for this | | | | 2:06 AM | | procedure are in the | | | | PDT | | results section. | + +--------+ + + + | D-DIMER | STAT | 06/13/2015 | | Results for this | | | | 2:06 AM | | procedure are in the | | | | PDT | | results section. | + +--------+ + + + | BASIC METABOLIC | STAT | 06/13/2015 | | Results for this | | PANEL | | 2:06 AM | | procedure are in the | | | | PDT | | results section. | + +--------+ + + + | ECG 12 LEAD | STAT | 06/13/2015 | | Results for this | | | | 1:44 AM | | procedure are in the | | | | PDT | | results section. | + +--------+ + + + documented in this encounter Results EXTRA GOLD TOP TUBE (06/13/2015 3:58 AM PDT) + +-------+ + + + | Component | Value | Ref Range | Performed | Pathologist | | | | | At | Signature | + +-------+ + + + | Extra Gold | Done | | [facility] | | | Top Tube | | | [facility] | | [...] [address] | [place] | [phone] | | [facility] | | [address] | | | - LABORATORY | | | | + + + + + CT Angiogram Pulmonary (06/13/2015 3:35 AM PDT) + + | Specimen | + + | | + + + + + | Narrative | Performed At | + + + | CT ANGIOGRAM PULMONARY 06/13/2015 3:33 AM HISTORY: SOB. | [facility] | | COMPARISON: Chest x-rays 06/13/2015, 11/30/2014. PROTOCOL: Thin | | | section axial images of the chest were obtained after uneventful | | | administration of 60 mL Omnipaque 350. Coronal and sagittal | | | reformations were acquired. FINDINGS: Neck base is normal. | | | The heart is of normal size. Aorta is normal. The pulmonary arteries | | | are unremarkable. SVC is normal. A borderline right paratracheal | | | lymph node is present that measures 1.0 cm short axis (image 33). | | | There are some prominent AP window lymph nodes. Enlarged right hilar | | | lymph nodes are present with the largest measuring 1.9 cm (image 45). | | | There are enlarged left hilar lymph nodes with the largest measuring | | | 1.6 cm. Mildly prominent but benign appearing lymph nodes are in the | | | axilla. Trachea and esophagus demonstrate no acute findings. | | | Patchy groundglass opacities are visualized throughout the bilateral | | | lungs, left more than right, with appearance of an infectious versus | | | inflammatory process. There is no evidence for pleural effusion or | | | pneumothorax. The upper abdomen demonstrates no acute findings. | | | Chest wall structures are normal. Extensive spondylosis is observed | | | of the thoracic spine with bridging osteophytes. IMPRESSION - No | | | evidence for pulmonary embolism. Patchy groundglass opacities | | | throughout the bilateral lungs, left more than right, that likely | | | represent infectious versus inflammatory process. Mediastinal and | | | hilar lymphadenopathy that are likely to be reactive. A | | | preliminary report was sent by [employer] on 06/13/2015 at 3:48 AM | | | with no significant discrepancy. Dictated and Signed by: Kyle Luis | | MD [place] Electronically signed: 06/13/2015 8:23 AM | | + + + + + | Procedure Note | + + | Jimbo Hoover Results In - 06/13/2015 8:[address] ANGIOGRAM PULMONARY 06/13/2015 3:33 | | AMHISTORY: SOB.COMPARISON: Chest x-rays 06/13/2015, 11/30/2014.PROTOCOL: Thin section | | axial images of the chest were obtained after uneventfuladministration of 60 mL | | Omnipaque 350. Coronal and sagittal reformations wereacquired.FINDINGS:Neck base is | | normal.The heart is of normal size. Aorta is normal. The pulmonary arteries | | areunremarkable. SVC is normal.A borderline right paratracheal lymph node is present | | that measures 1.0 cm shortaxis (image 33). There are some prominent AP window lymph | | nodes. Enlarged righthilar lymph nodes are present with the largest measuring 1.9 cm | | (image 45).There are enlarged left hilar lymph nodes with the largest measuring 1.6 | | cm.Mildly prominent but benign appearing lymph nodes are in the axilla. Trachea | | andesophagus demonstrate no acute findings.Patchy groundglass opacities are visualized | | throughout the bilateral lungs, leftmore than right, with appearance of an infectious | | versus inflammatory process.There is no evidence for pleural effusion or | | pneumothorax.The upper abdomen demonstrates no acute findings.Chest wall structures are | | normal. Extensive spondylosis is observed of thethoracic spine with bridging | | osteophytes.IMPRESSION -No evidence for pulmonary embolism.Patchy groundglass opacities | | throughout the bilateral lungs, left more thanright, that likely represent infectious | | versus inflammatory process.Mediastinal and hilar lymphadenopathy that are likely to be | | reactive.A preliminary report was sent by [employer] on 06/13/2015 at 3:48 AM with | | nosignificant discrepancy.Dictated and Signed by: Kyle Peoples MD Electronically | | signed: 06/13/2015 8:23 AM | |esophagus demonstrate no acute findings. | | | |Patchy groundglass opacities are visualized throughout the bilateral lungs, left | |more than right, with appearance of an infectious versus inflammatory process. | |There is no evidence for pleural effusion or pneumothorax. | | | |The upper abdomen demonstrates no acute findings. | | | |Chest wall structures are normal. Extensive spondylosis is observed of the | |thoracic spine with bridging osteophytes. | | | |IMPRESSION - | |No evidence for pulmonary embolism. | | | |Patchy groundglass opacities throughout the bilateral lungs, left more than | |right, that likely represent infectious versus inflammatory process. | | | |Mediastinal and hilar lymphadenopathy that are likely to be reactive. | | | |A preliminary report was sent by [employer] on 06/13/2015 at 3:48 AM with no | |significant discrepancy. | | | |Dictated and Signed by: Kyle Peoples MD | | Electronically signed: 06/13/2015 8:23 AM | + + + +---------+ + + | Performing | Address | City/State/Zipcode | Phone Number | | Organization | | | | + +---------+ + + | [facility] | | | | + +---------+ + + XR Chest AP Portable (06/13/2015 2:24 AM PDT) + + | Specimen | + + | | + + + + + | Narrative | Performed At | + + + | SINGLE AP CHEST 06/13/2015 2:24 AM CLINICAL HISTORY: SHORTNESS OF | [facility] | | BREATH CHEST PAIN COMPARISON: Chest radiographs November 30 | | | FINDINGS: The cardiomediastinal silhouette and pulmonary vasculature | | | are unremarkable. Hazy reticular opacity is now visible in the left | | | upper lung, medial right upper lung and left perihilar region. | | | Hazy reticular opacity in the lung bases is slightly more | | | pronounced. No pneumothorax or pleural effusion is visible. There | | | is extensive multilevel spondylosis. IMPRESSION - 1. | | | BILATERAL REGIONS OF HAZY RETICULAR OPACITY, SUSPICIOUS FOR MULTIFOCAL | | | INFILTRATE. 2. EXTENSIVE SPONDYLOSIS. Dictated and Signed | | | by: Sabino Coronado MD Electronically signed: 06/13/2015 9:30 AM | | + + + + + | Procedure Note | + + | Kiko, Rad Results In - 06/13/2015 9:33 AM PDT SINGLE AP CHEST 06/13/2015 2:24 AM | | | | CLINICAL HISTORY: SHORTNESS OF BREATH | | CHEST PAIN | | | | COMPARISON: Chest radiographs November 30 | | | | FINDINGS: The cardiomediastinal silhouette and pulmonary vasculature are | | unremarkable. Hazy reticular opacity is now visible in the left upper lung, | | medial right upper lung and left perihilar region. Hazy reticular opacity in | | the lung bases is slightly more pronounced. No pneumothorax or pleural effusion | | is visible. There is extensive multilevel spondylosis. | | | | IMPRESSION - | | | | 1. BILATERAL REGIONS OF HAZY RETICULAR OPACITY, SUSPICIOUS FOR MULTIFOCAL | | INFILTRATE. | | | | 2. EXTENSIVE SPONDYLOSIS. | | | | Dictated and Signed by: Sabino Coronado MD | | Electronically signed: 06/13/2015 9:30 AM | + + + +---------+ + + | Performing | Address | City/State/Zipcode | Phone Number | | Organization | | | | + +---------+ + + | [facility] | | | | + +---------+ + + D-Dimer (06/13/2015 2:06 AM PDT) + + + + + + | Component | Value | Ref Range | Performed | Pathologist | | | | | At | Signature | + + + + + + | D-Dimer | 0.55 (H)Comment: This | <=0.50 ug/ml | [facility] | | | Quantitativ | quantitative D-Dimer | | [facility] | | | e | assay has [...] [place]. | [address] | [place] | [phone] | | [facility] | | [address] | | | - LABORATORY | | | | + + + + + Troponin I (06/13/2015 2:06 AM PDT) + + + + + + | Component | Value | Ref Range | Performed | Pathologist | | | | | At | Signature | + + + + + + | Troponin I | <0.01Comment: Reference | <0.06 ng/mL | [facility] | | | | Ranges:0.00-0.06 = | | [facility] | | | | NORMAL>0.06 = | | MEDICAL | | | | SUSPICIOUS FOR | | CENTER - | | | | MYOCARDIAL DAMAGE NOTE: | | LABORATORY | | | | Values greater than 0.50 | | | | | | ng/mL have been shown | | | | | | to be strongly | | | | | | associated with acute | | | | | | myocardial infarction. | | | | | | [employer] | | | | | [...] + | [facility] | [address] | [place] | [phone] | | [facility] | | [address] | | | - LABORATORY | | | | + + + + + Basic Metabolic Panel (06/13/2015 2:06 AM PDT) + + + + + [...] + + + + | Glucose | 179 (H) | 70 - 109 mg/dL | [...] + + + + | Creatinine | 1.14 | 0.60 - 1.30 | [facility] | [...] mL/min/1.73m2 | [facility] | | | [employer] | RATE,ESTIMATED | | MEDICAL | | | | mL/min/1.51y0Dgvf than | | CENTER - | | [...] + + + + | BUN/Creatin | 11.4 | | [facility] | | | ine [...] [address] | [place] | [phone] | | [facility] | | [address] | | | - LABORATORY | | | | + + + + + CBC w/ Auto Differential (06/13/2015 2:06 AM PDT) + + + + + + | Component | Value | Ref Range | Performed | Pathologist | | | | | At | Signature | + + + + + + | White Blood | 16.1 (H) | 4.0 - 11.0 K/uL | [facility] | | | Cells | | | [facility] | | | | | | MEDICAL | | | | | | CENTER - | | | | | | LABORATORY | | + + + + + + | Red Blood | 4.05 (L) | 4.30 - 5.70 | [facility] | | | Cells | | M/uL | [facility] | | | | | | MEDICAL | | | | | | CENTER - | | | | | | LABORATORY | | + + + + + + | Hemoglobin | 12.1 (L) | 13.5 - 18.0 | [facility] | | | | | g/dL | [facility] | | | | | | MEDICAL | | | | | | CENTER - | | | | | | LABORATORY | | + + + + + + | Hematocrit | 36.5 (L) | 40.0 - 51.0 % | [facility] | | | | | | [facility] | | | | | | MEDICAL | | | | | | CENTER - | | | | | | LABORATORY | | + + + + + + | MCV | 90.1 | 83.0 - 101.0 fL | [facility] | | | | | | [facility] | | | | | | MEDICAL | | | | | | CENTER - | | | | | | LABORATORY | | + + + + + + | MCH | 29.9 | 28.0 - 35.0 pg | [facility] [...] + + + + | MPV | 8.1 | fL | [facility] | | | | | | [facility] | | | | | | MEDICAL | | | | | | CENTER - | | | | | | LABORATORY | | + + + + + + | % | 82.1 (H) | 45.0 - 82.0 % | [facility] | | | Neutrophils | | | [facility] | | | | | | MEDICAL | | | | | | CENTER - | | | | | | LABORATORY | | + + + + + + | % | 8.1 (L) | 20.0 - 45.0 % | [facility] | | | Lymphocytes | | | [facility] | | | | | | MEDICAL | | | | | | CENTER - | | | | | | LABORATORY | | + + + + + + | % Monocytes | 8.3 | 4.0 - 12.0 % | [facility] | | | | | | [facility] | | | | | | MEDICAL | | | | | | CENTER - | | | | | | LABORATORY | | + + + + + + | % | 1.2 | 0.0 - 5.0 % | [facility] [...] + + + + | Absolute | 13.20 (H) | 1.80 - 8.50 | [facility] | | | Neutrophils | | K/uL | [facility] | | | | | | MEDICAL | | | | | | CENTER - | | | | | | LABORATORY | | + + + + + + | Absolute | 1.30 | 0.60 - 3.20 | [facility] | | | Lymphocytes | | K/uL | [facility] | | | | | | MEDICAL | | | | | | CENTER - | | | | | | LABORATORY | | + + + + + + | Absolute | 1.30 (H) | 0.00 - 1.00 | [facility] [...] | 0.00 | 0.00 - 0.10 | [facility] | | | Basophils | | K/uL [...] [address] | [place] | [phone] | | [facility] | | [address] | | | - LABORATORY | | | | + + + + + ECG 12 lead (06/13/2015 1:44 AM PDT) + + + + + [...] + + + + | P-R | 140 | ms | [facility] | | | INTERVAL | | | | | + + + + + + | QRS | 130 | ms | [facility] | | | DURATION | | | | | + + + + + + | Q-T | 348 | ms | [facility] | | | INTERVAL | | | | | + + + + + + | Q-T | 473 | ms | [facility] | | | INTERVAL | | | | | | (CORRECTED) | | | | | + + + + + + | P WAVE AXIS | 7 | degrees | [facility] | | + + + + + + | QRS AXIS | 44 | degrees | [facility] | | + + + + + + | T AXIS | 60 | degrees | [facility] | | + + + + + + | INTERPRETAT | Sinus tachycardiaRight | | [facility] | | | ION TEXT | bundle branch | | | | | | blockBorderline ECGNo | | | | | | previous ECGs | | | | | | availableConfirmed by | | | | | | YAZMIN FERNANDEZ MD ([id number]) | | | | | | on 06/14/2015 8:26:53 AM | | | | + + [...] + | Diagnosis | + + | Pneumonia, unspecified laterality, unspecified part of lung - Primary | + + documented in this encounter Administered Medications + +--------+ +-------+------+------+ | Medication Order | MAR | Action | Dose | Rate | Site | | | Action | Date | | | | + +--------+ +-------+------+------+ | albuterol-ipratropium (DUONEB) | Given | 06/13/20 | 3 mLs | | | | 2.5-0.5 mg/3 mL nebulizer | | 15 2:14 | | | | | solution 3 mL 3 mL, | | AM PDT | | | | | Nebulization, RT Once, Ele | | | | | | | 06/13/15 at 0205, For 1 dose | | | | | | + +--------+ +-------+------+------+ +---+---+ | | | +---+---+ + +-------+ +--------+---+---+ | HYDROmorphone (DILAUDID) | Given | 06/13/20 | 0.5 mg | | | | injection 0.5 mg 0.5 mg, | | 15 4:08 | | | | | Intravenous, ONCE, Fri06/13/15 at | | AM PDT | | | | | 0355, For 1 dose | | | | | | + +-------+ +--------+---+---+ +---+---+ | | | +---+---+ + +-------+ +--------+---+---+ | iohexol (OMNIPAQUE 350) 350 | Given | 06/13/20 | 60 mLs | | | | mg/mL injection 60 mL 60 mL, | | 15 3:35 | | | | | Intravenous, ONCE PRN, Other, | | AM PDT | | | | | Starting Fri06/13/15 at 0334, For | | | | | | | 1 dose, Cat Scanner | | | | | | + +-------+ +--------+---+---+ +---+---+ | | | +---+---+ + +---------+ +--------+-------+---+ | levofloxacin in dextrose | New Bag | 06/13/20 | 500 mg | 100 | | | (LEVAQUIN) IVPB 500 mg 500 mg, | | 15 3:51 | | mL/hr | | | Intravenous, Administer over 60 | | AM PDT | | | | | Minutes, DAILY, First dose on Fri | | | | | | | 06/13/15 at 0900, For 1 dose | | | | | | + +---------+ +--------+-------+---+ +---+---+ | | | +---+---+ + +-------+ +-------+---+---+ | methylprednisoLONE sodium | Given | 06/13/20 | 60 mg | | | | succinate (solu-MEDROL) 62.5 | | 15 2:10 | | | | | mg/mL injection 60 mg 60 mg, | | AM PDT | | | | | Intravenous, ONCE, Fri06/13/15 at | | | | | | | 0205, For 1 dose, Mix with 2 mL | | | | | | | provided diluent to make 62.5 | | | | | | | mg/mL., | | | | | | + +-------+ +-------+---+---+ +---+---+ | | | +---+---+ + +------+ +--------+-------+---+ | sodium chloride 0.9% (NS) bolus | Push | 06/13/20 | 50 mLs | 3000 | | | 50 mL 50 mL, Intravenous, | | 15 3:34 | | mL/hr | | | Administer over 1 Minutes, ONCE | | AM PDT | | | | | PRN, for contrast study, Starting | | | | | | | 06/13/15 at 0334, For 1 dose, | | | | | | | May infuse at a different rate | | | | | | | per protocol., Cat Scanner | | | | | | + +------+ +--------+-------+---+ +---+---+ | | | +---+---+ documented in this encounter
--- OUTSIDE RECORDS SUMMARY | ~2020-06-16 | XMS | Encounter Summary ---
Demographics + + + | Address | [address] | | | [place] [address] | + + + | Home Phone | | + + + | Preferred Language | Unknown | + + + | Marital Status | | + + + | Tenriism Affiliation | Unknown | + + + [...] [address] | | | | | [place], | | | | | [place] [address] | | + + + + + Care Team Providers + +------+ + | Care Inbound Call Center Representative Name | Role | Phone | + +------+ + | Dimitri Fischer MD | PCP | | + +------+ + Reason for Visit +--------+--------+ + | Reason | Onset | Comments | | | Date | | +--------+--------+ + | Other | 03/05/ | | | | 2016 | | +--------+--------+ + Encounter Details +--------+ + + + + | Date | Type | Department | Care Team | Description | +--------+ + + + + | 03/05/ | Telephone | [facility] | Marty Wood | Other | | 2016 | | ORTHOPEDIC SURGERY | MD Gsoia [address] [facility] | | | | | [address] | [place] | | | | | [place] | [address] | | | | | [address] | | | | | | [phone] | | | +--------+ + + + [...] Miscellaneous Notes Telephone Encounter - Denia Lopez, Fast Food Services Manager - 03/05/2017 12:28 PM PDTCalled biju ent concerning abnormal labs, patients significant answered the phone, and I asked patient's partner on who is managing his diabetes. Patient significant other stated it was Carolina olivier from [facility]. I told patients significant other that he will need to get his la bs checked by his primary care doctor, since his labs are abnormal. And will need to have th is managed, because of his hemoglobin being 4pts lower than normal. I tried to call this i gabino to have patient this addressed. I was able to get a hold of Mi office and spoke to Holly, about patient and left a message that patient will need clearance so he can proceed with surgery. Since Dr. Conti son suspects it could possibly cancer. The test results and ekg were sent to [facility] to be looked at. Holly stated she will have the provider review this message and will co ntact our office before surgery date. documented in this encounter Plan of Treatment Not on filedocumented as of this encounter Visit Diagnoses Not on filedocumented in this encounter"
--- OUTSIDE RECORDS SUMMARY | ~2020-06-16 | XMS | Encounter Summary ---
Demographics + + + | Address | [address] | | | [place] [address] | + + + | Home Phone [...] [place], | | | | | [place] [address] | | + + + + + Care Team Providers + +------+ + | Care Pourer Bull Ladle Name | Role | Phone | + +------+ + | Dimitri Fischer MD | PCP | | + +------+ + Encounter Details +--------+ + + + + | Date | Type | Department | Care Team | Description | +--------+ + + + + | 03/13/ | Orders Only | [facility] [place] | Tana Cortes W, | Chronic renal | | 2017 | | NEPHROLOGY [address] | [address] | disease, stage IV | | | | [address] | [address] [place] | ([facility]) (Primary Dx); | | | | [place], [place] | [place] [address] | CAYLA (acute kidney | | | | [address] | [phone] | injury) (FORM[facility]) | | | | [phone] | | | +--------+ + + + [...] on filedocumented as of this encounter Results Urinalysis With Microscopic (03/14/2017 12:26 PM PDT) + + + + + + | Component | Value | Ref Range | Performed | Pathologist | | | | | At | Signature | + + + + + + | Color, | Yellow | Light Yellow, | [facility] | | | Urine | | Yellow, Straw | [facility] | | | | [...] - 1.030 | [facility] | | | [place], | | | [facility] | | [...] | | Urine | | | [facility] | | | | | | MEDICAL [...] Urine | | mg/dL, Negative | [facility] | | | | [...] + + + + + + | Hyaline | 2-5 (A) | 0 - 2 /LPF | [facility] | | | Casts, | | | [facility] | | [...] ST. | [address] | [place] | [phone] | | [facility] | | [address] | | | - LABORATORY | | | | + + + + + Protein/Creatinine Ratio, Urine (03/14/2017 12:26 PM PDT) + +--------+ + + + | Component | Value | Ref Range | Performed | Pathologist | | | | | At | Signature | + +--------+ + + + | Protein, | 17 (H) | <6 mg/dL | [facility] | | | Urine | | | [facility] | | | | | | MEDICAL | | | | | | CENTER - | | | | | | LABORATORY | | + +--------+ + + + | Creatinine, | 125 | mg/dL | [facility] | | | Urine, | | | [facility] | | | Random | | | MEDICAL | | | | | | CENTER - | | | | | | LABORATORY | | + +--------+ + + + | PRO/CREA | 0.14 | <0.20 mg/mg | [facility] | | | RATIO,URINE | | | [facility] | | [...] [address] | [place] | [phone] | | [facility] | | [address] | | | - LABORATORY | | | | + + + + + CK Total (03/14/2017 12:24 PM PDT) + +-------+ + + + | Component | Value | Ref Range | Performed | Pathologist | | | | | At | Signature | + +-------+ + + + | CK TOTAL | 220 | 22 - 269 U/L | [facility] | | | | | [...] [address] | [place] | [phone] | | [facility] | | [address] | | | - LABORATORY | | | | + + + + + Vitamin D, Deficiency Screen (25-Hydroxy) (03/14/2017 12:24 PM PDT) + +--------+ + + + | Component | Value | Ref Range | Performed | Pathologist | | | | | At | Signature | + +--------+ + + + | Vitamin D, | 29 (L) | 30 - 80 ng/mL | [facility] | | | 25 Hydroxy | | | [facility] | | [...] [address] | [place] | [phone] | | [facility] | | [address] | | | - LABORATORY | | | | + + + + + Renal Function Panel (03/14/2017 12:24 PM PDT) + + + + + [...] + + + + | K | 4.5 | 3.5 - 5.1 | [facility] | [...] + + + + | Glucose | 150 (H) | 70 - 109 mg/dL | [facility] | | | | | | [facility] | | | | | | MEDICAL | | | | | | CENTER - | | | | | | LABORATORY | | + + + + + + | BUN | 39 (H) | 7 - 18 mg/dL | [facility] | | | | | | [facility] | | | | | | MEDICAL | | | | | | CENTER - | | | | | | LABORATORY | | + + + + + + | Creatinine | 2.02 (H) | 0.60 - 1.30 | [facility] | | | | | mg/dL | [facility] | | | | | | MEDICAL | | | | | | CENTER - | | | | | | LABORATORY | | + + + + + + | eGFR, | 36 (L) | >=60 | [facility] | | | non- | | mL/min/1.73m2 | [facility] | | | Guyanese | | | MEDICAL | | | | | | CENTER - | | | | | | LABORATORY | | + + + + + + | Calcium | 9.3 | 8.3 - 10.5 | [facility] | | | | | mg/dL | [facility] | | | | | | MEDICAL | | | | | | CENTER - | | | | | | LABORATORY | | + + + + + + | Albumin | 4.2 | 3.2 - 5.0 g/dL | [facility] | | | | | | [facility] | | | | | | MEDICAL | | | | | | CENTER - | | | | | | LABORATORY | | + + + + + + | Phosphorus | 3.8 | 2.5 - 4.6 mg/dL | [facility] | | | | | | [facility] | | | | | | MEDICAL | | | | | | CENTER - | | | | | | LABORATORY | | + + + + + + | BUN/Creatin | 19.3 | | [facility] | | | ine [...] + | [facility] | [address] | [place] | [phone] | | [facility] | | [address] | | | - LABORATORY | | | | + + + + + Parathyroid Hormone, Intact (03/14/2017 12:24 PM PDT) + +-------+ + + + | Component | Value | Ref Range | Performed | Pathologist | | | | | At | Signature | + +-------+ + + + | PTH Intact | 36 | 12 - 88 pg/mL | [facility] | | | | | [...] [address] | [place] | [phone] | | [facility] | | [address] | | | - LABORATORY | | | | + + + + + CBC with Differential (03/14/2017 12:24 PM PDT) + + + + + [...] + + + | Red Blood | 3.44 (L) | 4.30 - 5.70 | [facility] | | | Cells | | M/uL | [facility] | | | | | | MEDICAL | | | | | | CENTER - | | | | | | LABORATORY | | + + + + + + | Hemoglobin | 10.3 (L) | 13.5 - 18.0 | [facility] | | | | | g/dL | [facility] | | | | | | MEDICAL | | | | | | CENTER - | | | | | | LABORATORY | | + + + + + + | Hematocrit | 30.6 (L) | 40.0 - 51.0 % | [facility] | | | | | | [facility] | | | | | | MEDICAL | | | | | | CENTER - | | | | | | LABORATORY | | + + + + + + | MCV | 88.9 | 83.0 - 101.0 fL | [facility] [...] + + + + | Platelet | 245 | 140 - 440 K/uL | [facility] | | | Count | | | [facility] | | | | | | MEDICAL | | | | | | CENTER - | | | | | | LABORATORY | | + + + + + + | MPV | 9.3 | fL | [facility] | | | | | | [facility] | | | | | | MEDICAL | | | | | | CENTER - | | | | | | LABORATORY | | + + + + + + | % | 62.9 | 45.0 - 82.0 % | [facility] | | | Neutrophils | | | [facility] | | | | | | MEDICAL | | | | | | CENTER - | | | | | | LABORATORY | | + + + + + + | % | 23.2 | 20.0 - 45.0 % | [facility] | | | Lymphocytes | | | [facility] | | | | | | MEDICAL | | | | | | CENTER - | | | | | | LABORATORY | | + + + + + + | % Monocytes | 9.7 | 4.0 - 12.0 % | [facility] [...] + + + | % Basophils | 0.7 | 0.0 - 1.0 % | [facility] | | | | | | [facility] | | | | | | MEDICAL | | | | | | CENTER - | | | | | | LABORATORY | | + + + + + + | Absolute | 4.60 | 1.80 - 8.50 | [facility] | | | Neutrophils | | K/uL | [facility] | | | | | | MEDICAL | | | | | | CENTER - | | | | | | LABORATORY | | + + + + + + | Absolute | 1.70 | 0.60 - 3.20 | [facility] | [...] | 0.10 | 0.00 - 0.10 | [facility] | | | Basophils | | K/uL | [facility] | [...] ST. | [address] | [place] | [phone] | | [facility] | | [address] | | | - LABORATORY | | | | + + + + + documented in this encounter Visit Diagnoses + + | Diagnosis | + + | Chronic renal disease, stage IV (HCC) - Primary Chronic kidney disease, Stage IV | | (severe) | + + | CAYLA (acute kidney injury) (HCC) Acute kidney failure, unspecified | + + documented in this encounter"
--- OUTSIDE RECORDS SUMMARY | ~2020-06-16 | XMS | Encounter Summary ---
Demographics + + + | Address | [address] | | | [place] [address] | + + + | Home Phone [...] [place], | | | | | [place] [address] | | + + + + + Care Team Providers + +------+ + | Care Survey Research Professor Name | Role | Phone | + +------+ + PCP | Unavailable | + +------+ + Encounter Details +--------+ + + + + | Date | Type | Department | Care Team | Description | +--------+ + + + + | 01/09/ | Hospital | [facility] | Wood, Marty | Right knee pain | | 2015 | Encounter | MED CTR TOLU XRAY | MD Gosia [address] [facility] | | | | | [address] [place] | [place], [place] | | | | | [place], [place] | [address] | | | | | [address] | | | | | | [phone] | | | +--------+ + + + [...] tablet by | 50 | 0 | 01/10/20 | | | (DILAUDID) 4 MG | mouth EVERY 4 TO 6 | tablet | | 15 | 5 | | tablet | HOURS NEEDED for | | | | | | | Pain for up to 10 | | | | | | | days. | | | | | + + + +---------+ + + | insulin glargine | Inject 80 Units | | 0 | | | | (LANStevieUS HERRMANNFLORESITAAR) | under the skin | | | [...] RIGHT 4 + VW | Routin | 01/09/2015 | Right knee pain | Results for this | | | e | 10:08 AM | | procedure are in the | | | | PDT | | results section. | + +--------+ + + + documented in this encounter Results XR Knee Right 4 + Vw (01/09/2015 10:08 AM PDT) + + | Specimen | + + | | + + + + + | Narrative | Performed At | + + + | RIGHT KNEE: 01/09/2015 10:08 AM CLINICAL HISTORY: knee pain, fell | [facility] | | post op COMPARISON: 08/22/2014 FINDINGS: AP and PA standing | [facility] | | views of both knees with sunrise and lateral views of the right knee. | MEDICAL CENTER | | No fracture or focal bony abnormality. Joint relationships are | - IMAGING | | normal. Mild narrowing of the medial compartment joint space. | | | Subchondral bone is smooth and normal. No effusion or soft tissue | | | abnormality. IMPRESSION - Mild narrowing of the medial compartment | | | joint space on the right. Otherwise negative study of the knees. | | | Dictated and Signed by: Anuel Lim MD Electronically signed: | | | 01/09/2015 11:09 AM | | + + + + + | Procedure Note | + + | Kiko, Rad Results In - 01/09/2015 11:12 AM PDT RIGHT KNEE: 01/09/2015 10:08 AM | | | | CLINICAL HISTORY: knee pain, fell post op | | | | COMPARISON: 08/22/2014 | | | | FINDINGS: AP and PA standing views of both knees with sunrise and lateral views | | of the right knee. | | No fracture or focal bony abnormality. Joint relationships are normal. Mild | | narrowing of the medial compartment joint space. Subchondral bone is smooth and | | normal. | | No effusion or soft tissue abnormality. | | | | IMPRESSION - Mild narrowing of the medial compartment joint space on the right. | | Otherwise negative study of the knees. | | | | Dictated and Signed by: Anuel Lim MD | | Electronically signed: 01/09/2015 11:09 AM | + + + + + + + | Performing | Address | City/State/Zipcode | Phone Number | | Organization | | | | + + + + + | [facility] | [address] | [place] | [phone] | | [facility] | | [address] | | | - IMAGING | | | | + + + + + documented in this encounter Visit Diagnoses + + | Diagnosis | + + | Right knee pain Pain in joint, lower leg | + + documented in this encounter"
--- OUTSIDE RECORDS SUMMARY | ~2020-06-16 | XMS | Encounter Summary ---
Demographics + + + | Address | [address] | | | [place] [address] | + + + | Home Phone [...] [place], | | | | | [place] [address] | | + + + + + Care Team Providers + +------+ + | Care Director Of Institutional Sales Name | Role | Phone | + +------+ + PCP | Unavailable | + +------+ + Reason for Visit + + + | Reason | Comments | + + + | Follow-up | elbow pain discuss surgery | + + + Encounter Details +--------+---------+ + + + | Date | Type | Department | Care Team | Description | +--------+---------+ + + + | 01/09/ | Office | [facility] | Miranda Perez | Post-traumatic | | 2017 | Visit | ORTHOPEDIC SURGERY | MD Gosia [address] | osteoarthritis of | | | | [address] | [place] | left elbow (Primary | | | | [place] | [address] | Dx); Fibroma; Lipoma | | | | [address] | | of anterior chest | | | | [phone] | | wall; Limitation of | | | | | | joint motion of left | | | | | | elbow; Rotator cuff | | | | | | tendonitis, | | | | | | unspecified | | | | | | laterality | +--------+---------+ + + + Social History [...] documented as of this encounter Progress Notes Miranda Perez MD - 01/09/2017 6:15 PM PDTSee soap note [id number].Electronically valdez d by Miranda Perez MD at 01/09/2017 6:15 PM PDTMiranda Perez MD - 01/09/2017 6:[address] [facility] ORTHOPEDIC SURGERY [address] [place] [address] OFFICE NOTE MIARNDA PEREZ MD Patient: CECILIO GARCIA Admitting: MR #: [id number] LOC: PT TYPE: Adm Date: 01/09/2017 : 1970 Mr. 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 He was previously scheduled for a left elbow arthrotomy with loose body and osteophy te excision, a left forearm fibroma excision, a left anterior chest wall lipoma excision an d injection of both shoulders. The surgery was not performed due to lack of financial cov erage from the patient's medical coverage. He has now returned today in an attempt to resc hedule his procedures. Today, exam of the left elbow reveals that he continues to have a 22-degree flexion contra cture and lacks approximately 15 degrees of full flexion as compared to the right elbow. H e is tender to palpation over the humeral ulnar joint. He continues to have palpable tende r masses including a fibroma over the proximal dorsal left forearm and a tender mass over the left anterior chest wall. Both shoulders continued to have restricted range of motion with pain associated with elevation above 90 degrees. ADVICE: We discussed our findings with Cecilio. We will attempt to reschedule his roberts rgical procedures. He states he is currently under the care from Dr. Santos who has orde red a variety of MRI scans that we will be obtaining in an open MRI scanner, likely in the [place], [place] area. MIRANDA PEREZ MD Dictated by MIRANDA PEREZ MD 01/09/2017 18:14:04 Transcribed on 01/10/2017 05:19:39 by jo-ann job# [id number] Confirmation #: [id number] cc: ROMINA SANTOS MD documented in this encounter Plan of Treatment Not on filedocumented as of this encounter Visit Diagnoses + + | Diagnosis | + + | Post-traumatic osteoarthritis of left elbow - Primary Secondary localized | | osteoarthrosis, upper arm | + + | Fibroma Other benign neoplasm of connective and other soft tissue of unspecified site | + + | Lipoma of anterior chest wall | + + | Limitation of joint motion of left elbow | + + | Rotator cuff tendonitis, unspecified laterality | + + documented in this encounter"
--- OUTSIDE RECORDS SUMMARY | ~2020-06-16 | XMS | Encounter Summary ---
Demographics + + + | Address | [address] | | | [place] [address] | + + + | Home Phone [...] [place], | | | | | [place] [address] | | + + + + + Care Team Providers + +------+ + | Care Guitar Instructor Name | Role | Phone | [...] | | | | | | MS XCAPSL | | | | | | [...] +--------+---------+ + + + | 11/29/ | Surgery | [facility] | ElizasinanRuslan hutchinson | LEFT EXTRACTION | | 2019 | | MED CTR OR INTRA OP | MD Denis [address] | CATARACT W/ LENS | | | | [address] [place] | IMPLANT | | | | [place], [place] | [place] [address] | | | | | [address] | [phone] | | | | | [phone] | | | +--------+---------+ + + + [...] + + + | Blood Pressure | 128/54 | 11/30/2019 12:55 PM | | | | | PDT | | + + + + + | Pulse | 72 | 11/30/2019 12:55 PM | | | | | PDT | | + + + + + | Temperature | 36.6 C (97.9 F) | 11/30/2019 12:09 PM | | | | | PDT | | + + + + + | Respiratory Rate | 18 | 11/30/2019 12:55 PM | | | | | PDT | | + + + + + | Oxygen Saturation | 98% | 11/30/2019 12:55 PM | | | | | PDT [...] symptoms, immediately call your eye doctor or [facility] at (dial "9" after hours [...] with intraocular lens implant, left e rosalia (15342) Implant: Musa PCB00 21.5 D, SN [id number] Surgeon: Ruslan Chu MD Anesthesia: General Anesthesia Technique/Procedure Description: After the patient's eye prepped and draped in the usual st erile ophthalmic manner, a lid speculum was placed [...] wounds were checked and found to be marii ertight. Vigamox 0.1cc was placed in the [...] by: Ruslan Chu MD, 11/30/2019 12:[address] [facility] documented in t his encounter Plan of [...] [address] | [place] | [phone] | | [facility] | | [address] | | | - LABORATORY | | | | + + + + + documented in this encounter Visit Diagnoses + + | Diagnosis | + + | Combined forms of age-related cataract, left eye | + + documented in this [...] | balanced salts sterile | Given | 11/30/19 | 1 | | Surgical | | ophthalmic irrigation solution | | 20 1:17 | Applicat | | Site | | PRN, Starting 11/30/19 at | | PM PDT | ion | | | | 1317, Intra-op | | | | | | + +-------+ + +---+ + +---+---+ | | | +---+---+ + +-------+ +-------+---+ + | BSS 2.25ML + lidocaine 4% | Given | 11/30/19 | 3 mLs | | Eye-Left | | 0.75ML + EPINEPHrine (1:1000) 1ML | | 20 1:16 | | | | | one step ophthalmic solution | | PM PDT | | | | | PRN, Starting 11/30/19 at | | | | | | | 1316, Intra-op | | | | | | + +-------+ +-------+---+ + + +---+ | | [...] | | | | | | longer, sfykdh-rso-xpahp use of | | | | | [...] | hyaluronate & chondroitin | Given | 11/30/19 | 1 kit | | | | hyaluronate (DUOVISC) intraocular | | 20 1:18 | | | | | kit PRN, Starting 11/30/19 | | PM PDT | | | | | at 1318, Intra-op | | | | | | [...] MIN PRN, | | | Pain, Starting 11/30/19 at | | | 1326, First dose [...] One week or longer, | | | fvctud-qyi-jmaux use of at least | | | [...] | | | | after proparacaine., Starting Tue | | | | | [...] lidocaine (XYLOCAINE) 2% jelly | Given | 11/30/19 | 1 | | Surgical | | (uro-jet) PRN, Starting Tue | | 20 1:14 | Applicat | | Site | | 11/30/19 at 1314, Intra-op | | PM PDT | ion | | | + +-------+ [...] | | | + +---+ + +-------+ +--------+---+ + | moxifloxacin (VIGAMOX) 0.5 % | Given | 11/30/19 | 0.5 mg | | Eye-Left | | intracameral injection PRN, | | 20 1:20 | | | | | Starting 11/30/19 at 1320, | | PM PDT | | | [...] | | +---+---+ + +-------+ +---------+---+---+ | pilocarpine (ISOPTO CARPINE) 1% | Given | 11/30/19 | 2 drops | | | | ophthalmic solution PRN, | | 20 1:25 | | | | | Starting 11/30/19 at 1327, | | PM PDT | | | | | Intra-op | | | | | | + +-------+ +---------+---+---+ +---+---+ | | | +---+---+ + +-------+ +--------+---+---+ | povidone-iodine 5 % ophthalmic | Given | 11/30/19 | 1 drop | | | | solution PRN, Starting Tue | | 20 1:05 | | | | | 11/30/19 at 1311, Intra-op | | PM PDT | | [...] | | +---+---+ + +-------+ +---------+---+---+ | proparacaine (ALCAINE) 0.5% | Given | 11/30/19 | 2 drops | | | | ophthalmic solution PRN, | | 20 1:04 | | | | | Starting 11/30/19 at 1304, | | PM PDT | | | | | Intra-op | | | | | | + +-------+ +---------+---+---+ +---+---+ | | | +---+---+ + +-------+ +------+---+ + | triamcinolone acetonide | Given | 11/30/19 | 5 mg | | Eye-Left | | (KENALOG-10) 10 mg/mL injection | | 20 1:22 | | | | | PRN, Starting 11/30/19 at | | PM PDT | | | | | 1320, Intra-op | | | | | | + +-------+ +------+---+ + +---+---+ | | | +---+---+ + [...]
--- OUTSIDE RECORDS SUMMARY | ~2020-06-16 | XMS | Encounter Summary ---
Demographics + + + | Address | [address] | | | [place] [address] | + + + | Home Phone [...] [place], | | | | | [place] [address] | | + + + + + Care Team Providers + +------+ + | Care Fabrication And Layout Craftsman Name | Role | Phone | + +------+ + PCP | Unavailable | + +------+ + Reason for Visit +--------+--------+ + | Reason | Onset | Comments | | | Date | | +--------+--------+ + | Other | 06/09/ | | | | 2014 | | +--------+--------+ + Encounter Details +--------+ + + + + | Date | Type | Department | Care Team | Description | +--------+ + + + + | 06/09/ | Telephone | [facility] | Will Capellan, | Other | | 2015 | | [facility] | [address] | | | | | [address] | [place] | | | | | [place] | [address] | | | | | [address] | | | | | | [phone] | | | +--------+ + + + [...] Miscellaneous Notes Telephone Encounter - Henrietta Robles 06/09/2015 2:05 PM PDTPatient calling again and wa nts to know if he can do a lab draw instead. I let patient know that Dr. Capellan will be out of the office this afternoon and unaware if this will be answered on time. I notified him th e lab is opened on the weekend -, patient was thankful and states he can give UA sometime this weekend. elephone En counter - Henrietta Robles - 06/09/2015 12:10 PM PDTPatient calling because he was in for an appt with Dr. Capellan on Friday (06/07) and he states he was asked to come in yesterday or today to leave a urine sample but he said he has the flu and is unable to keep down any food therefore he can not urinate. Please advice. Patient can be reached at [phone] ically signed by Henrietta Robles at 06/09/2015 12:23 PM PDTdocumented in this encounter Plan of Treatment Not on filedocumented as of this encounter Visit Diagnoses Not on filedocumented in this encounter"
--- OUTSIDE RECORDS SUMMARY | ~2020-06-16 | XMS | Encounter Summary ---
Demographics + + + | Address | [address] | | | [place] [address] | + + + | Home Phone [...] [address] | | | | | [place], | | | | | [place] [address] | | + + + + + Care Team Providers + +------+ + | Care Insurance Coordinator Name | Role | Phone | [...] | | | | | | [place] TENOTOMY | | | | | | | ELBOW | | | | | | | LATERAL/MEDI | | | | | | | AL | | | | | | | PERCUTANEOUS | | | | | | | NV | | | | | | | ARTHROTOMY/C | | | | | | | APULE | | | | | | | RELEASE | | | | | | | ELBOW JT NV | | | | | | | EXCIS/CURET | | | | | | | BENIGN | | | | | | | ELBOW LESN | | | | | | | NV TENOTOMY | | | | | | | ELBOW | | | | | | | LATERAL/MEDI | | | | | | | AL DEBRIDE | | | | | | | OPEN NV | | | | | | [...] Description | +--------+---------+ + + + | 11/15/ | Surgery | [facility] | Marty Perez | Left Lateral | | 2016 | | [facility] | MD Gosia [address] [place] [address] | Epicondylar Release | | | | [address] | [place] | & Injection of Left | | | | [place] | [id number] | Elbow Joint | | | | [address] | | | | | | [phone] | | | +--------+---------+ + + + [...] + + + | Blood Pressure | 141/66 | 11/15/2015 7:56 AM | | | | | PST | | + + + + + | Pulse | 91 | 11/15/2015 7:56 AM | | | | | PST | | + + + + + | Temperature | 36.9 C (98.4 F) | 11/15/2015 7:56 AM | | | | | PST | | + + + + + | Respiratory Rate | 18 | 11/15/2015 7:56 AM | | | | | PST | | + + + + + | Oxygen Saturation | 96% | 11/15/2015 7:56 AM | | | | | PST | | + + + + + | Inhaled Oxygen | - | - | | | Concentration | | | | + + + + + | Weight | 110.7 kg (244 lb) | 11/15/2015 7:56 AM | | | | | PST | | + + + + + | Height | 182.9 cm (6') | 11/15/2015 7:56 AM | | | | | PST | | + + + + + | Body Mass Index | 33.09 | 11/15/2015 7:56 AM | | | | | PST | | + + + + + documented in this encounter Discharge Instructions Instructions Amadeo Saab PA-C - 11/15/2015Please keep appointment in Dr Perez' s office as already scheduled. Remain in left arm brace until first post operative visit Flex fingers and wrist frequently Keep Bandages clean and dry. Take pain medications as prescribed. Continue with Methadone and Oxycodone as prescribed by your primary care physician. If you have any questions, comments or concerns please contact our office. documented in this encounter Medications at [...] | 06/27/20 | | | test strips ([employer] | | each | | 15 | [...] documented as of this encounter Progress Notes Mónica Cabrera RN - 11/15/2015 1:53 PM PSTPt. States he does not have any pain. "The block is working". Mónica Cabrera RN - 11/15/2015 1:47 PM PSTAttempted to medicate Pt. With ordered [place] codone. Pt. States he is allergic. Hydrocodone was not on original allergy list. Pt. Refu sed hydrocodone. Pt. Wanted Dr. Perez to prescribe a different pain med for home. Dr. Perez agreed, but is in OR for the next hour. Pt. States he will go home and come back for the prescription. P STdocumented in this encounter H&P Notes Amadeo Saab PA-C - 11/15/2015 7:36 AM PSTSURGICAL INTERIM HISTORY & PHYSICAL UPDA TE Pt. Name/Age/: Loy Arias 45 y.o. 1970 Date of admission: 11/15/2015 The current H&P was reviewed. The patient [...] answered. Consent was obtained. Electronically signed by: Amadeo Saab PA-C, 11/15/2015 7:36 [facility] Nayely Hazel rd, MD - 11/09/2015 8:51 AM PSTFormatting of this note might be different from the origin al. History of present illness: Loy is a 45 y.o. male who presents to our clinic today for a preop examination. Loy is scheduled for a left lateral elbow [...] (HCC) Lab results placed in chart regarding [id number] Phenotype. Past Surgical History Procedure Laterality Date Knee arthroscopy Right 12/05/2014 Procedure: Right Knee Arthroscopy with Partial Medial Menisectomy and Medial- Femoral Cho ndroplasty; Surgeon: Marty Perez MD; Location: [facility] MAIN OR Allergies Allergen Reactions Azithromycin [...] documented in th is encounter Miscellaneous Notes Anesthesia Pain Management - Stephen Kumar MD - 11/15/2015 11:46 AM PSTIn pacu patien t with pain of 8/10 dispite narcotics. Patient and surgeon request block. R and b discusse d for interscalene block. p Note - Marty Perez MD - 11/15/2015 10:55 AM PST [address] [id number] OPERATIVE REPORT MARTY PEREZ MD Patient: RADHALOY Admitting: MARTY PEREZ MR #: [id number] LOC: PT TYPE: Adm Date: 11/15/2015 : 1970 DATE OF SURGERY AND DATE OF DICTATION: 11/15/2015. OPERATING SURGEON: Marty Perez MD MAGNETIC TAPE WINDER: Amadeo Saab PA-C ANESTHESIOLOGIST: Deonte Kumar MD PREOPERATIVE DIAGNOSIS: 1. Chronic left elbow lateral epicondylitis. 2. Degenerative joint disease, left elbow joint. POSTOPERATIVE DIAGNOSIS: 1. Chronic left elbow lateral epicondylitis. 2. Degenerative joint disease, left elbow joint. TITLE OF OPERATION: Left lateral epicondylar release with limited lateral epicondylectomy followed by injection of left humeral ulnar joint and application of long arm splint. HISTORY AND REASON FOR SURGERY: Loy Arias is a 45-year-old male with a variet y of medical comorbidities including diabetes mellitus, emphysema and tobacco addiction, wh o took a fall on 02/25 of last year, landing on his left upper extremity and right knee. Barry cox has had chronic left elbow pain since that time and has been found to have lateral epico ndylitis. He has failed conservative measures including oral medication, rest, splinting a nd injection, and would like to proceed with definitive operative intervention. In additio n, he has been found to have early degenerative change of his left elbow joint. Initially we considered the option of a humeral plasty with removal of olecranon process and coronoid process spurs, but it was felt that his arthritis was not sufficiently severe. Therefore, it was felt reasonable to simply proceed with injection of the elbow joint to help vanessa rate his symptoms within the joint, and therefore these planned procedures with the risks, possible complications, expected prognosis and treatment alternatives were discussed with t kobi patient. Risks and possible complications were listed, but not limited to, infection, n erve and vessel damage, bleeding, pain, scarring, stiffness, possibility of residual sympt oms remaining after surgery, and the risk of anesthesia. He verbalized understanding. No g uarantees were given or implied other than that of diligent effort. OPERATIVE PROCEDURE: After the patient signed the consent for surgery, he was brought to the operating room where he underwent general anesthesia successfully. He had received 2 g trav of IV Ancef. The entire left upper extremity was prepped with alcohol and DuraPrep an d draped in the usual free and sterile manner. At this time, the middle column of the [facility] gical safety checklist was carried out by the surgical team. A sterile tourniquet was appl ied to the left upper extremity on the proximal arm. Left upper extremity was then exsangu inated with an Esmarch bandage and the tourniquet was inflated to 250 mmHg. We then made an incision directly over the humeral lateral epicondyle, extending distally for a distance of approximately 5 cm. We carried this down through skin and subcutaneous t issue to the level of the common extensor origin. We then sharply removed the common exten sor origin from the lateral epicondyle, starting proximally and reflecting an entire full- thickness flap of tendon origin tissue down to but not including the level of the humeral r adial joint. We also took care to preserve the lateral elbow collateral ligament complex. We then used the oscillating saw to remove approximately 2 mm thick layer of superficial l ateral epicondylar bone and were able to create a new, fresh-bleeding bone bed of tissue. We then drilled a series of 4 connecting holes in the lateral humeral epicondyle for reatta chment purposes. We then used sutures of 0 Vicryl to pass through the holes and through t he common extensor origin tissue so that 2 separate vertical mattress sutures had been plac ed. The tissue was then held in place with an Allis clamp and the sutures were sequentiall y tightened and tied. We then reinforced this repair with additional simple and figure-of -eight sutures of 0 Vicryl so that a secure reattachment of the common extensor origin was accomplished. This being done, we released the tourniquet, with a tourniquet time of less than 30 minutes. We irrigated the wound thoroughly and copiously. We then closed subcutaneous tissues with 2-0 Vicryl and the skin with a running subcuticul ar suture of 4-0 Monocryl. The closure was reinforced with Steri-Strips and benzoin. It s hould also be noted that we did inject the entire operative area with a total of 15 mL of 0 .5 percent Ropivacaine. This being done, we then accessed the elbow joint along the lateral border of the olecrano n process and injected 8 mL volume total, including 2 mL of betamethasone and 6 mL of 0.5 p ercent Ropivacaine. This being done, we then dressed the wound with dry gauze fluffs, foll owed by sterile cast padding, and we then applied a well-molded, well-padded long arm Ortho -Glass splint with the elbow at 90 degrees and the forearm in neutral, using a 4-inch Ortho -Glass for a posterior slab and also an additional 4-inch Ortho-Glass portion for an angula r gusset to reinforce the splint. The splint was then secured with Wily wraps. Following s etting of the splint, anesthesia was terminated. The patient was transported to the recovery room in stable condition. There were no immedi ate postoperative complications. BLOOD LOSS: About 5 mL BLOOD REPLACED: None. SPECIMENS: None. FINDINGS: Same as postoperative diagnosis. PROGNOSIS: Good. MARTY PEREZ MD Dictated by MARTY PEREZ MD 11/15/2015 10:55:00 Transcribed on 11/15/2015 11:52:29 by [facility] job# [id number] Confirmation #: [id number] cc: ROMINA SANTOS MD p Note - Marty Perez MD - 11/15/2015 10:54 AM PSTOp note dictation # [id number]. documented in this encounter Plan of Treatment Not on filedocumented as of this encounter Procedures + +--------+ + + + | Procedure Name | Priori | Date/Time | Associated Diagnosis | Comments | | | ty | | | | + +--------+ + + + | RELEASE ELBOW | | 11/15/2015 | Lateral | | | EPICONDYLAR / LOOSE | | 9:03 AM | epicondylitis of | | | BODY | | PST | left elbow | | | | | | Post-traumatic | | | | | | osteoarthritis of | | | | | | left elbow | | + +--------+ + + + +---+--------+ | | | | | Specia | | | l | | | Julia | | | | | | Sushila | | | ross | | | som | | | ting | | | the | | | Clowar | | | d | | | Drill | | | please | | | . | +---+--------+ + +--------+ +---+ + | POC GLUCOSE | Routin | 11/15/2015 | | Results for this | | | e | 8:11 AM | | procedure are in the | | | | PST | | results section. | + +--------+ +---+ + documented in this encounter Results POC Glucose (11/15/2015 8:11 AM PST) + +-------+ + + + | Component | Value | Ref Range | Performed | Pathologist | | | | | At | Signature | + +-------+ + + + | Glucose, | 102 | 70 - 150 mg/dL | [facility] + | [facility] | [address] | [place] | [phone] | | [facility] | | [address] | | | - LABORATORY | | | | + + + + + documented in this encounter Visit Diagnoses + + | Diagnosis | + + | Lateral epicondylitis of left elbow Lateral epicondylitis of elbow | + + | Post-traumatic osteoarthritis of left elbow Secondary localized osteoarthrosis, upper | | arm | + + documented in this encounter Admitting Diagnoses + + | Diagnosis | + + | Lateral epicondylitis of left elbow Lateral epicondylitis of elbow | + + documented in this encounter Administered Medications + +--------+ +--------+------+------+ | Medication Order | MAR | Action | Dose | Rate | Site | | | Action | Date | | | | + +--------+ +--------+------+------+ | albuterol 2.5 mg/3 mL nebulizer | Given | 11/15/19 | 2.5 mg | | | | solution 2.5 mg 2.5 mg, | | 16 8:26 | | | | | Nebulization, ONCE PRN, Wheezing, | | AM PST | | | | | Starting Fri11/15/15 at 0803, | | | | | | | For 1 dose, RT will administer., | | | | | | | Pre-op | | | | | | + +--------+ +--------+------+------+ +---+---+ | | | +---+---+ + +-------+ +-------+---+ + | betamethasone (CELESTONE | Given | 11/15/19 | 12 mg | | Surgical | | SOLUSPAN) injection PRN, | | 16 10:25 | | | Site | | Starting Fri11/15/15 at 1016, | | AM PST | | | | | Intra-op | | | | | | + +-------+ +-------+---+ + +---+---+ | | | +---+---+ + +-------+ +--------+---+---+ | fentaNYL injection 25-50 mcg | Given | 11/15/19 | 50 mcg | | | | 25-50 mcg, Intravenous, EVERY 5 | | 16 11:24 | | | | | MIN PRN, Pain, Starting Wed | | AM PST | | | | | 11/15/15 at 1043, Maximum total | | | | | [...] +-------+ +--------+---+---+ +-------+ +--------+---+---+ | Given | 11/15/19 | 50 mcg | | | | | 16 11:14 | | | | | | AM PST | | | | +-------+ +--------+---+---+ +---+---+ | | | +---+---+ + +-------+ +--------+---+---+ | HYDROmorphone (DILAUDID) | Given | 11/15/19 | 0.5 mg | | | | injection 0.2-0.5 mg 0.2-0.5 mg, | | 16 11:30 | | | | | Intravenous, EVERY 5 MIN PRN, | | AM PST | | | | | Pain, Starting 11/15/15 at | | | | | | | 1043, Maximum total dose 4 mg. | | [...] +-------+ +--------+---+---+ +-------+ +--------+---+---+ | Given | 11/15/19 | 0.5 mg | | | | | 16 11:18 | | | | | | AM PST | | | | +-------+ +--------+---+---+ | Given | 11/15/19 | 0.5 mg | | | | | 16 11:04 | | | | | | AM PST | | | | +-------+ +--------+---+---+ +---+---+ | | | +---+---+ + +---------+ +--------+-------+---+ | lactated ringers (LR) infusion | New Bag | 11/15/19 | 1,000 | 100 | | | at 10-100 mL/hr, Intravenous, | | 16 11:54 | mLs | mL/hr | | | CONTINUOUS, Starting 11/15/15 | | AM PST | | | | | at 0830, TKO., Pre-op | | | | | | + +---------+ +--------+-------+---+ +---------+ +--------+-------+--------+ | New Bag | 11/15/19 | 1,000 | 100 | Right | | | 16 8:26 | mLs | mL/hr | Arm | | | AM PST | | | | +---------+ +--------+-------+--------+ +---+---+ | | | +---+---+ + +-------+ +------+---+---+ | ondansetron (ZOFRAN) injection | Given | 11/15/19 | 4 mg | | | | 4 mg 4 mg, Intravenous, ONCE | | 16 10:51 | | | | | PRN, Nausea, Starting Fri11/15/15 | | AM PST | | | | | at 1043, For 1 dose, | | | | | | | Recovery/Phase I | | | | | | + +-------+ +------+---+---+ +---+---+ | | | +---+---+ + +-------+ +-------+---+ + | ropivacaine (NAROPIN) 5 mg/mL | Given | 11/15/19 | 6 mLs | | Surgical | | (0.5%) injection PRN, Starting | | 16 10:14 | | | Site | | Fri11/15/15 at 1016, Intra-op | | AM PST | | | | + +-------+ +-------+---+ + +---+---+ | | | +---+---+ documented in this encounter
--- OUTSIDE RECORDS SUMMARY | ~2020-06-16 | XMS | Encounter Summary ---
Demographics + + + | Address | [address] | | | [place] [address] | + + + | Home Phone [...] [place], | | | | | [place] [address] | | + + + + + Care Team Providers + +------+ + | Care Livestock Exhibitor Name | Role | Phone | + +------+ + | Dimitri Fischer MD | PCP | | + +------+ + Reason for Referral Diagnostic/Screening (Emergency) +--------+--------+ + + + + | Status | Reason | Specialty | Diagnoses / | Referred By | Referred To | | | | | Procedures | Contact | Contact | +--------+--------+ + + + + | Closed | | Radiology | Diagnoses | [place], | [facility] | | | | | Anemia, | Dimitri | [facility] | | | | | unspecified | MD Cody | [facility] | | | | | type | [address] | MEDICAL | | | | | Abdominal | [facility] | CENTER [address] | | | | | mass, | [place], | [place] | | | | | unspecified | [place] [address] | [place], | | | | | location | Phone: | [place] [address] | | | | | Procedures | [phone] | Phone: | | | | | CT Abdomen w | Fax: | [phone] | | | | | Contrast | [phone] | Fax: | | | | | | | [phone] | +--------+--------+ + + + + Reason for Visit Diagnostic/Screening (Emergency) +--------+--------+ + + + + | Status | Reason | Specialty | Diagnoses / | Referred By | Referred To | | | | | Procedures | Contact | Contact | +--------+--------+ + + + + | Closed | | Radiology | Diagnoses | [place], | [facility] | | | | | Anemia, | Dimitri | [facility] | | | | | unspecified | MD Cody | [facility] | | | | | type | [address] | MEDICAL | | | | | Abdominal | [facility] | CENTER [address] | | | | | mass, | [place], | [place] | | | | | unspecified | [place] [address] | [place], | | | | | location | Phone: | [place] [address] | | | | | Procedures | [phone] | Phone: | | | | | CT Abdomen w | Fax: | [phone] | | | | | Contrast | [phone] | Fax: | | | | | | | [phone] | +--------+--------+ + + + + Encounter Details +--------+ + + + + | Date | Type | Department | Care Team | Description | +--------+ + + + + | 03/13/ | Hospital | [facility] | Dimitri Fischer, | Anemia, unspecified | | 2017 | Encounter | [facility] [address] | type; Abdominal | | | | [place], | [place], [place] | mass, unspecified | | | | [place] [address] | [id number] | location | | | | [phone] | | | +--------+ + + + [...] mg by | | 0 | | 02/20/201 | | (GLUCOPHAGE) 1000 MG | mouth [...] + +--------+ + + + | CT ABDOMEN W | STAT | 03/13/2017 | Anemia, | Results for this | | CONTRAST | | 8:05 AM | unspecified type | procedure are in the | | | | PDT | Abdominal mass, | results section. | | | | | unspecified location | | + +--------+ + + + documented in this encounter Results CT Abdomen w Contrast (03/13/2017 8:05 AM PDT) + + | Specimen | + + | | + + + + | Addenda | + + | Addendum by Kyle Peoples MD on 03/14/2017 2:29 PM The right kidney measures 6.3 x | | 5.6 x 12.1 cm (AP, transverse, craniocaudal). The left kidney measures 6.0 x 8.1 x | | 12.4 cm. Dictated and Signed by: Kyle Peoples MD Electronically signed: | | 03/14/2017 2:26 PM | + + + + + | Narrative | Performed At | + + + | CT ABDOMEN W CONTRAST 03/13/2017 7:50 AM HISTORY: Anemia, | [facility] | | unspecified type. Abdominal mass, unspecified location. | | | COMPARISON: None. PROTOCOL: Axial images of the abdomen were | | | obtained after uneventful administration of 90 mL Omnipaque 350. | | | Coronal and sagittal reformations were acquired. FINDINGS: Chest | | | base is normal. The liver demonstrates normal parenchyma. The | | | gallbladder is normal. Biliary ducts are unremarkable. The spleen | | | is unremarkable. The pancreas demonstrates normal parenchyma and a | | | normal pancreatic duct. Adrenal glands are normal. The right | | | kidney and visualized ureter are normal. There is a small | | | nonobstructing stone in the lower pole of the left kidney measuring 5 | | | mm. Visualized ureter is normal. The stomach is normal. Imaged | | | small bowel and colon demonstrate no acute findings. There is | | | moderate stool retention within the colon. Visualized appendix is | | | normal. Aorta is nonaneurysmal. There is no significant | | | abnormality in the portal veins, mesenteric veins, or systemic veins. | | | No enlarged lymph nodes are visualized within the omentum or | | | retroperitoneum. There is no evidence for ascites or free air. | | | Body wall soft tissue structures are normal. There is moderate | | | spondylosis. Mild retrolisthesis is seen of L4 over L5. Chronic pars | | | defects are noted of L5. Moderate to severe disc narrowing is at L4-5 | | | with vacuum phenomenon. IMPRESSION - No acute findings, no | | | evidence for mass lesion in abdomen. Small nonobstructing stone in | | | left kidney. Dictated and Signed by: Kyle Peoples MD | | | Electronically signed: 03/13/2017 8:28 AM | | + + + + + | Procedure Note | + + | Kiko, Rad Results In - 03/13/2017 8:[address] ABDOMEN W CONTRAST 03/13/2017 7:50 AM | | | | HISTORY: Anemia, unspecified type. Abdominal mass, unspecified location. | | | | COMPARISON: None. | | | | PROTOCOL: Axial images of the abdomen were obtained after uneventful | | administration of 90 mL Omnipaque 350. Coronal and sagittal reformations were | | acquired. | | | | FINDINGS: | | Chest base is normal. | | | | The liver demonstrates normal parenchyma. The gallbladder is normal. Biliary | | ducts are unremarkable. | | | | The spleen is unremarkable. The pancreas demonstrates normal parenchyma and a | | normal pancreatic duct. Adrenal glands are normal. | | | | The right kidney and visualized ureter are normal. | | | | There is a small nonobstructing stone in the lower pole of the left kidney | | measuring 5 mm. Visualized ureter is normal. | | | | The stomach is normal. Imaged small bowel and colon demonstrate no acute | | findings. There is moderate stool retention within the colon. Visualized | | appendix is normal. | | | | Aorta is nonaneurysmal. There is no significant abnormality in the portal veins, | | mesenteric veins, or systemic veins. | | | | No enlarged lymph nodes are visualized within the omentum or retroperitoneum. | | | | There is no evidence for ascites or free air. | | | | Body wall soft tissue structures are normal. There is moderate spondylosis. Mild | | retrolisthesis is seen of L4 over L5. Chronic pars defects are noted of L5. | | Moderate to severe disc narrowing is at L4-5 with vacuum phenomenon. | | | | IMPRESSION - | | No acute findings, no evidence for mass lesion in abdomen. | | | | Small nonobstructing stone in left kidney. | | | | Dictated and Signed by: Kyle Peoples MD | | Electronically signed: 03/13/2017 8:28 AM | + + + +---------+ + + | Performing | Address | City/State/Zipcode | Phone Number | | Organization | | | | + +---------+ + + | [facility] | | | | + +---------+ + + documented in this encounter Visit Diagnoses + + | Diagnosis | + + | Anemia, unspecified type | + + | Abdominal mass, unspecified location | + + documented in this encounter Administered Medications + +--------+ +--------+------+------+ | Medication Order | MAR | Action | Dose | Rate | Site | | | Action | Date | | | | + +--------+ +--------+------+------+ | iohexol (OMNIPAQUE 350) 350 | Given | 03/13/20 | 90 mLs | | | | mg/mL injection 90 mL 90 mL, | | 17 8:00 | | | | | Intravenous, ONCE PRN, Other, for | | AM PDT | | | | | imaging CT study, Starting Светлана | | | | | | | 03/13/17 at 0750, For 1 dose, | | | | | | | Radiology | | | | | | + +--------+ +--------+------+------+ +---+---+ | | | +---+---+ documented in this encounter"
--- OUTSIDE RECORDS SUMMARY | ~2020-06-16 | XMS | Encounter Summary ---
Demographics + + + | Address | [address] | | | [place] [address] | + + + | Home Phone [...] [place], | | | | | [place] [address] | | + + + + + Care Team Providers + +------+ + | Care Casting Finisher Name | Role | Phone | + +------+ + PCP | Unavailable | + +------+ + Encounter Details +--------+ + + + + | Date | Type | Department | Care Team | Description | +--------+ + + + + | 02/07/ | Hospital | [facility] | Dimitri Fischer, | Osteoarthritis, | | 2017 | Encounter | MED CTR XRAY [address] | [address] | unspecified | | | | [place] | [place], [place] | osteoarthritis type, | | | | [place] [address] | [address] | unspecified site | | | | [phone] | | | +--------+ + + + [...] RIGHT 1 - 2 | Routin | 02/07/2017 | Osteoarthritis, | Results for this | | VW | e | 1:58 PM | unspecified | procedure are in the | | | | PDT | osteoarthritis type, | results section. | | | | | unspecified site | | + +--------+ + + + documented in this encounter Results XR Knee Right 1 - 2 Vw (02/07/2017 1:58 PM PDT) + + | Specimen | + + | | + + + + + | Narrative | Performed At | + + + | CLINICAL INFORMATION: DEGENERATIVE JOINT DISEASE. COMPARISON: | [facility] | | 04/20/2015 and 01/09/2015. FINDINGS: 2 views of the right knee. | | | Bones: No fracture or dislocation. No periostitis. Small proximal | | | and distal patellar tendon enthesophytes are noted. Small distal | | | quadriceps tendon enthesophyte also noted. Joints: Probably mild | | | medial compartment joint space narrowing. Tiny marginal osteophyte | | | formation of the patella. Mild degenerative changes are also noted at | | | the proximal tibiofibular joint. No erosion. No joint effusion. | | | Soft tissue: No soft tissue swelling. IMPRESSION - Stable | | | mild degenerative changes of the right knee. Dictated and Signed | | | by: Jason Martinez MD Electronically signed: 02/07/2017 2:57 PM | | + + + + [...]
--- OUTSIDE RECORDS SUMMARY | ~2020-06-16 | XMS | Encounter Summary ---
Demographics + + + | Address | [address] | | | [place] [address] | + + + | Home Phone [...] [place], | | | | | [place] [address] | | + + + + + Care Team Providers + +------+ + | Care Online Health And Fitness Coach Name | Role | Phone | + +------+ + | No, Physician | PCP | Unavailable | + +------+ + Encounter Details +--------+ + + + + | Date | Type | Department | Care Team | Description | +--------+ + + + + | 08/10/ | Orders Only | [facility] | Alexander Crum, | | | 2017 | | MED CTR PROVIDER | MD [address] | | | | | MED SURG [address] | [place], [place] | | | | | [place], | [address] | | | | | [place] [address] | [phone] | | | | | [phone] | | | +--------+ + + + [...]
--- OUTSIDE RECORDS SUMMARY | ~2020-06-16 | XMS | Encounter Summary ---
Demographics + + + | Address | [address] [facility] | | | [place] [address] | + + + | Home Phone | | + + + | Preferred Language | Unknown | + + + | Marital Status | | + + + | Alevism Affiliation | Unknown | + + + | Race | White | + + + | Ethnic Group | Not or | + + + Author + + + | Author | [facility] | | | and [place] | + + + | Organization | [facility] | | [...] [place], | | | | | [place] [address] | | + + + + + Care Team Providers + +------+ + | Care Ward Helper Name | Role | Phone | + +------+ + PCP | Unavailable | + +------+ + Reason for Visit +---------+--------+ + | Reason | Onset | Comments | | | Date | | +---------+--------+ + | Therapy | 08/21/ | | | | 2014 | | +---------+--------+ + Encounter Details +--------+ + + + + | Date | Type | Department | Care Team | Description | +--------+ + + + + | 08/21/ | Telephone | [facility] | Marty Wood | Therapy | | 2014 | | ORTHOPEDIC SURGERY | MD Gosia [address] [facility] | | | | | [address] | [place] | | | | | [place] | [address] | | | | | [address] | | | | | | [phone] | | | +--------+ + + + [...] this encounter Miscellaneous Notes Telephone Encounter - Selene Ellison - 08/23/2015 8:10 AM PSTCrystmohini was notified and he has an appointment on 08-29-2015. elephone Encounter - Claudia Gray CMA - 08/22/2015 1:20 PM PSTPhysical therapy or dered by dr. Wood, please call and notify patient. elephone Encounter - Claudia Gray CMA - 08/21/2015 1: [address] Wood elephone Encounter - Selene Ellison - 08/21/2015 1:02 PM PSTCecilio Cordova's fiance called wanting to sc adaliule for him for physical therapy on both knee's and his elbow for here at [facility]. She can be reached at [phone] signed by Selene Ellison at 08/21/2015 1: 06 PM PSTdocumented in this encounter Plan of Treatment Not on filedocumented as of this encounter Visit Diagnoses Not on filedocumented in this encounter"
--- OUTSIDE RECORDS SUMMARY | ~2020-06-16 | XMS | Encounter Summary ---
Demographics + + + | Address | [address] [facility] | | | [place] [address] | + + + | Home Phone [...] [place], | | | | | [place] [address] | | + + + + + Care Team Providers + +------+ + | Care Property Master Name | Role | Phone | + +------+ + PCP | Unavailable | + +------+ + Encounter Details +--------+ + + + + | Date | Type | Department | Care Team | Description | +--------+ + + + + | 08/05/ | Hospital | [facility] | Marty Wood | Preop testing; | | 2016 | Encounter | MED CTR TOLU XRAY | MD [address] [facility] | Hyperlipidemia, | | | | [address] [place] | [place], [place] | unspecified | | | | [place] | [address] | hyperlipidemia type; | | | | [address] | | Chronic obstructive | | | | [phone] | | pulmonary disease, | | | [...] | 06/27/20 | | | test strips ([employer] | | each | | 15 | [...] XR CHEST PA AND | Routin | 08/05/2016 | Preop testing | Results for this | | LATERAL | e | 11:03 AM | Hyperlipidemia, | procedure are in [...] encounter Results XR Chest PA and Lateral (08/05/2016 11:03 AM PST) + + | Specimen | + + | | + + + + + | Narrative | Performed At | + + + | EXAM: XR CHEST PA AND LATERAL HISTORY: PREOP TESTING | [facility] | | TECHNIQUE: Upright PA and Lateral Chest COMPARISON: 11/09/2015. | [facility] | | FINDINGS: Heart is normal size. [...] + | [address] | [address] | [place] | [phone] | | [facility] | | [address] | | | - IMAGING | | [...]
--- OUTSIDE RECORDS SUMMARY | ~2020-06-16 | XMS | Encounter Summary ---
Demographics + + + | Address | [address] [facility] | | | [place] [address] | + + + | Home Phone | | + + + | Preferred Language | Unknown | + + + | Marital Status | | + + + | Mu-Ism Affiliation | Unknown | + + + [...] [place], | | | | | [place] [address] | | + + + + + Care Team Providers + +------+ + | Care Grocery Clerk Name | Role | Phone | [...] Physical | Diagnoses | [place], | [facility] | | | Services | Therapy / | Knee MCL | Marty Gosia, | Pt Op [address] | | | Required | Rehabilitatio | sprain, | MD [address] | [place] | | | | n | right, | [address] | [place], | | | | | initial | [place], | [place] [address] | | | | | encounter | [place] [address] | Phone: | | | | | Medial | Phone: | [phone] | | | | | meniscus | [phone] | Fax: | | | | | tear, right, | Fax: | [phone] | | | | | initial | [phone] | | | | | | encounter | | | | | | | Knee MCL | | | | | | | sprain, | | | | | | | [...] | +--------+ + + + + | 09/28/ | Orders Only | [facility] | Marty Wood | Knee MCL sprain, | | 2014 | | ORTHOPEDIC SURGERY | MD Gosia [address] | right, initial | | | | [address] [place] | [place] | encounter (Primary | | | | [place] | [address] | Dx); Medial meniscus | | | | [address] | | tear, right, | | | | [phone] | | initial encounter | +--------+ + [...] Physical | Outpatient | Routin | Knee MCL sprain, | Ordered: 09/28/2014 | | Therapy - AMB | Referral | e | right, initial | | | Referral | | | encounter Medial | | | | | | meniscus tear, | | | | | | right, initial | | | | | | encounter | | + + +--------+ + + documented as of this encounter Visit Diagnoses + + | Diagnosis | + + | Knee MCL sprain, right, initial encounter - Primary | + + | Medial meniscus tear, right, initial encounter | + + documented in this encounter"
--- OUTSIDE RECORDS SUMMARY | ~2020-06-16 | XMS | Encounter Summary ---
Demographics + + + | Address | [address] | | | [place] [address] | + + + | Home Phone | | + + + | Preferred Language | Unknown | + + + | Marital Status | | + + + | Yarsani Affiliation | Unknown | + + + | Race | White | + + + | Ethnic Group | Not or | + + + Author + + + | Author | [facility] | | | and [place] | + + + | Organization | [facility] | | | [...] [place], | | | | | [place] [address] | | + + + + + Care Team Providers + +------+ + | Care Environmental Program Manager Name | Role | Phone | + +------+ + PCP | Unavailable | + +------+ + Reason for Visit + + + | Reason | Comments | + + + | Medication Refill | | + + + Encounter Details +--------+--------+ + + + | Date | Type | Department | Care Team | Description | +--------+--------+ + + + | 12/19/ | Refill | [facility] | Will Capellan, | Medication Refill | | 2015 | | MEDICINE [place] | [address] | | | | | [address] | [place] | | | | | [place] | [address] | | | | | [address] | | | | | | [phone] | | | +--------+--------+ + + + [...]
--- OUTSIDE RECORDS SUMMARY | ~2020-06-16 | XMS | Encounter Summary ---
Demographics + + + | Address | [address] [facility] | | | [place] [address] | + + + | Home Phone [...] [place], | | | | | [place] [address] | | + + + + + Care Team Providers + +------+ + | Care Paint Roller Winder Name | Role | Phone | + +------+ + PCP | Unavailable | + +------+ + Reason for Visit +--------+--------+ + | Reason | Onset | Comments | | | Date | | +--------+--------+ + | Other | 08/12/ | | | | 2015 | | +--------+--------+ + Encounter Details +--------+ + + + + | Date | Type | Department | Care Team | Description | +--------+ + + + + | 08/12/ | Telephone | [facility] | Marty Wood | Other | | 2015 | | ORTHOPEDIC SURGERY | MD [address] | | | | [address] | [place] | | | | | [place] | [address] | | | | | [address] | | | | | | [phone] | | | +--------+ + + + [...] Notes Telephone Encounter - Renata Durbin - 08/12/2016 11:06 AM PSTPatient left a voicemail th at he would like to have surgery in the afternoon. Patient was advised that he would not be having surgery today and that we will also cancel his 08/27/16 post op appt. Patient state d understanding and he will wait for our call. Patient was advised we are waiting on his in surances decision for the surgical procedure. Patient also stated that he would have never asked us to remove the lipoma if he knew it would have caused his insurance to deny entire s urgery. documented in this encou nter Plan of Treatment Not on filedocumented as of this encounter Visit Diagnoses Not on filedocumented in this encounter"
--- OUTSIDE RECORDS SUMMARY | ~2020-06-16 | XMS | Encounter Summary ---
Demographics + + + | Address | [address] [facility] | | | [place] [address] | + + + | Home Phone | | + + + | Preferred Language | Unknown | + + + | Marital Status | | + + + | Catholic Affiliation | Unknown | + + + | Race | White | + + + | Ethnic Group | Not or | + + + Author + + + | Author | [facility] | | | and [place] | + + + | Organization | [facility] | | | [...] [place], | | | | | [place] [address] | | + + + + + Care Team Providers + +------+ + | Care Transitions Rn Care Coordinator Name | Role | Phone | + +------+ + | No, Physician | PCP | Unavailable | + +------+ + Encounter Details +--------+ + + + + | Date | Type | Department | Care Team | Description | +--------+ + + + + | 08/10/ | Emergency | [facility] | No, Physician p | Procedure and | | 2017 | | MED CTR EMERGENCY | | treatment not | | | | CENTER [address] | | carried out due to | | | | [place] | | patient leaving | | | | [address] | | prior to being seen | | | | [phone] | | by health care | | | | | | provider (Primary | | | | | | Dx) | +--------+ + + + + Social [...] 0 | 07/09/20 | | | SYR 13ME8-0/2 22G X | TESTOSTERONE TWICE A | [...] | 06/27/20 | | | test strips ([employer] | | each | | 15 | [...] INFORMATION | SHITAL | Routin | | 08/10/2018 7:28 PM | | EXCHANGE | | e | | PST | + +------+--------+ + + documented as of this encounter Procedures + +--------+ + + + | Procedure Name | Priori | Date/Time | Associated Diagnosis | Comments | | | ty | | | | + +--------+ + + + | ED INFORMATION | Routin | 08/10/2018 | | | | EXCHANGE | e | 7:28 PM | | | | | | PST | | | + +--------+ + + + +---+--------+ | | | | | Proced | | | ure | | | Note - | | | Benita, | | | Lab In | | | | | | Hlseve | | | n - | | | 11/19/ | | | 2018 | | | 7:29 | | | PM PST | | | | | | Format | | | ting | | | of | | | this | | | note | | | might | | | be | | | differ | | | ent | | | from | | | the | | | origin | | | al.BEINTA | | | E?NOTI | | | FICATI | | | ON?11/ | | | 19/201 | | | 8 | | | 19:25? | | | AVLONI | | | TIS, | | | DENIS | | | OPHER | | | S?MRN: | | | | | | [id number] | | | [id number] | | | his | | | [...] | | | //secu | | | re.benita | | | ecarep | | | joseph.co | | | m/biju | | | ent/17 | | | [id number] | | | -7a42- | | | 4f72-[id number] | | | b98-1a | | | [id number] | | | [id number] | | | [...] | | | on | | | Nov | | | [...] | | | Center | | | 6 0 | | | Total | | | 6 0 | | | Note: | | [...] | | | device | | | PDMP | | | [...] | | II-V | | | Rx 44 | | | CS-II | | | Rx 42 | | | Quanti | | | ty | | | Dispen | | | sed | | | 7,970 | | | Unique | | | | | | Prescr | | | ibers | | | 1 | | | Unique | | | | | | Pharma | | | cies 2 | | | | | | Benzos | | | 0 | | | Opioid | | | s 22 | | | Long | | | [...] + | Diagnosis | + + | Procedure and treatment not carried out due to patient leaving prior to being seen by | | health care provider - Primary | + + documented in this encounter
--- OUTSIDE RECORDS SUMMARY | ~2020-06-16 | XMS | Encounter Summary ---
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 | | [address] Phone: | | | | | elbow | | [phone] | | | | | 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 | [...] | | | | | | | [[id number]], | | | | | | | [...] Description | +--------+---------+ + + + | 05/14/ | Surgery | [facility] | Marty Wood | Left Elbow Joint | | 2017 | | MED CTR OR INTRA OP | MD Gosia [address] | Exploration and | | | | [address] | [place] | Bilateral Shoulder | | | | [place] | [address] | Injection | | | | [address] | | | | | | [phone] | | | +--------+---------+ + + + [...] + + + | Blood Pressure | 119/54 | 05/14/2017 8:15 AM | | | | | PDT | | + + + + + | Pulse | 74 | 05/14/2017 8:15 AM | | | | | PDT | | + + + + + | Temperature | 36.4 C (97.5 F) | 05/14/2017 8:15 AM | | | | | PDT | | + + + + + | Respiratory Rate | 18 | 05/14/2017 8:15 AM | | | | | PDT | | + + + + + | Oxygen Saturation | 99% | 05/14/2017 8:15 AM | | | [...] You can't be awakened Date Last Reviewed: 07/09/201619994653-2232 [employer] [address] [place] [address], [place] [address]. All righ ts reserved. This information is [...] mg of acetaminophen (Tylenol) per day. Hydrocodone-acetaminophen (Malden ) and Oxycodone-acetaminophen (Percocet) have 325 mg [...] signed by: Marty Wood MD, 05/14/2017 8:31 [facility] MD - 05/08/2017 2:30 PM PDT History [...] (HCC) Lab results placed in chart regarding [id number] Phenotype. Osteoporosis PONV (postoperative nausea and vomiting) Seizure (HCC) Testosterone deficiency Vitamin D deficiency Past Surgical History: Procedure Laterality Date ELBOW SURGERY Left 11/15/2015 Procedure: Left Lateral Epicondylar Release & Injection of Left Elbow Joint ; Surgeon: Janet Wood MD; Location: [facility] MAIN OR KNEE ARTHROSCOPY Right 12/05/2014 Procedure: Right Knee Arthroscopy with Partial Medial Menisectomy and Medial- Femoral Tay droplasty; Surgeon: Marty Wood MD; Location: [facility] MAIN OR MANDIBLE SURGERY spinal [...] Wood MD - 05/14/2017 11:30 AM PDT [address] [id number] OPERATIVE REPORT MARTY WOOD MD Patient: LOY GARCIA Admitting: MARTY WOOD MR #: [id number] LOC: PT TYPE: Adm Date: 05/14/2017 : 1970 DATE OF THE SURGERY AND DATE OF DICTATION: 05/14/2017. OPERATING SURGEON: Marty Wood MD. COMMERCIAL TELLER: ALCIRA Adame. ANESTHESIOLOGIST: Jevon Suárez MD. PREOPERATIVE [...] placed in the prone position using the [facility] laminectomy frame and appropriately padded and stabilized [...] Same as postoperative diagnosis. PROGNOSIS: Good. MARTY WOOD MD Dictated by MARTY WOOD MD 05/14/2017 11:30:11 Transcribed on 05/14/2017 12:28:28 by polly job# [id number] Confirmation #: [id number] cc: ROMINA FISCHER MD p Note - Sushila hawkins, Marty Elise MD - 05/14/2017 11:30 AM PDTOp note dictation # [id number]. documented in this encounter Plan of Treatment [...] 97 | 70 - 109 mg/dL | [facility] P[facility] | | | | | | [...] [address] | [place] | [phone] | | [facility] | | [address] | | | - LABORATORY | | [...] | | arm | + + | Benign neoplasm of connective and other soft tissue, unspecified | + + documented in this [...] ONCE PRN, Wheezing, | | | Starting 05/14/17 at 0830, | | | For 1 [...] + +---+ + +-------+ +-------+---+ + | betamethasone (CELESTONE | Given | 05/14/20 | 12 mg | | Surgical | | SOLUSPAN) injection PRN, | | 17 10:12 | | | Site | | Starting Fri05/14/17 at 1010, | | AM PDT | | | | | Intra-op | | | | | | + +-------+ +-------+---+ + +-------+ +-------+---+ + | Given | 05/14/20 | 12 mg | | Surgical | | | 17 10:10 | | | Site | | | AM PDT | | | | +-------+ +-------+---+ + [...] | | 6 HOURS PRN, pain, Starting Fri | | | 05/14/17 at 1341, Post-op/Phase II | | + +---+ | | | + +---+ + +-------+ +------+---+---+ | HYDROmorphone (DILAUDID) tablet | Given | 05/14/20 | 4 mg | | | | 4 mg 4 mg, Oral, EVERY 6 HOURS | | 17 1:51 | | | | | PRN, Pain, Starting Fri05/14/17 | | PM PDT | | | [...] Intravenous, PRN, Shivering, | | | Starting Fri05/14/17 at 1113, For | | | 2 [...] + +---+ + +-------+ +-------+---+ + | ropivacaine (NAROPIN) 5 mg/mL | Given | 05/14/20 | 8 mLs | | Surgical | | (0.5%) injection PRN, Starting | | 17 10:12 | | | Site | | Fri05/14/17 at 1010, Intra-op | | AM PDT | | | | + +-------+ +-------+---+ + +-------+ +-------+---+ + | Given | 05/14/20 | 8 mLs | | Surgical | | | 17 10:10 | | | Site | | | AM PDT | | | | +-------+ +-------+---+ + +---+---+ | | | +---+---+ + +---------+ +---------+---+ + | scopolamine (TRANSDERM-SCOP) [...] | 05/14/17 at 0830, For 1 dose, | | [...] | Intravenous, CONTINUOUS, Starting | | | 05/14/17 at 0900, TKO. Use | | | this instead of LR if patient is | | | on dialysis., Pre-op | | + +---+ | | | + +---+ documented in this encounter"
--- OUTSIDE RECORDS SUMMARY | ~2020-06-16 | XMS | Encounter Summary ---
Demographics + + + | Address | [address] | | | [place] [address] | + + + | Home Phone [...] [place], | | | | | [place] [address] | | + + + + + Care Team Providers + +------+ + | Care Dairy Cattle Farmer Name | Role | Phone | + +------+ + | Russell Sanabria MD | PCP | | + +------+ + Reason for Visit + +--------+ + | Reason | Onset | Comments | | | Date | | + +--------+ + | Medication Question | 12/21/ | | | | 2018 | | + +--------+ + Encounter Details +--------+ + + + + | Date | Type | Department | Care Team | Description | +--------+ + + + + | 12/21/ | Telephone | [facility] | Pipe Grace W, | Medication Question | | 2018 | | MED CTR OP INFUSION | PharmD [address] | | | | | [address] | [place], [place] | | | | | [place], [place] | [address] | | | | | [address] | | | | | | [phone] | | | +--------+ + + + [...] this encounter Miscellaneous Notes Telephone Encounter - Pipe Grace PharmD - 12/21/2018 11:05 AM PDTPatients called asking if they could come into today for Minor appointment later in the day. Explained that he has already missed 5 days of antibiotics and will need to discuss with Dr. Nash prior to restarting his infusions. Will route note to Dr. Nash. Pipe Grace PharmD 12/21/2018 11:07 documented in this encounter Plan of Treatment Not on filedocumented as of this encounter Visit Diagnoses Not on filedocumented in this encounter"
--- OUTSIDE RECORDS SUMMARY | ~2020-06-16 | XMS | Encounter Summary ---
Demographics + + + | Address | [address] | | | [place] [address] | + + + | Home Phone | | + + + | Preferred Language | Unknown | + + + | Marital Status | | + + + | Evangelical Affiliation | Unknown | + + + | Race | White | + + + | Ethnic Group | Not or | + + + Author + + + | Author | [facility] | | | and [place] | + + + | Organization | [facility] | | [...] [place], | | | | | [place] [address] | | + + + + + Care Team Providers + +------+ + | Care Oil Dispatcher Name | Role | Phone | + +------+ + PCP | Unavailable | + +------+ + Reason for Visit +---------+ + | Reason | Comments | +---------+ + | Post Op | left lateral epicondylar release and arthrotomy DOS 11/15/15 | +---------+ + | Other | JUAN ALBERTO REMOVAL | +---------+ + Encounter Details +--------+---------+ + + + | Date | Type | Department | Care Team | Description | +--------+---------+ + + + | 11/22/ | Office | [facility] | Amadeo Saab | S/P orthopedic | | 2015 | Visit | ORTHOPEDIC SURGERY | [address] | surgery, follow-up | | | | [address] | [address] | exam (Primary Dx) | | | | [place] | [place] [address] | | | | | [address] | [phone] | | | | | [phone] | | | +--------+---------+ + + + [...] Temperature | 36.9 C (98.5 F) | 11/23/2015 10:33 AM | | | | | PST [...] Weight | 110.7 kg (244 lb) | 11/23/2015 10:33 AM | | | | | PST | | + + + + + | Height | 182.9 cm (6') | 11/23/2015 10:33 AM | | | | | PST | | + + + + + | Body Mass Index | 33.09 | 11/23/2015 10:33 AM | | | | | PST | | + + + + + documented in this encounter Progress Amadeo Lin PA-C - 11/24/2015 8:42 AM PSTFormatting of this note might be differe nt from the original. Name:Cecilio Arias Todays Date: 11/24/2015 PCP: Dimitri Fischer Chief Complaint Patient presents with Post Op left lateral epicondylar release and arthrotomy DOS 11/15/15 Other JUAN ALBERTO REMOVAL SUBJECTIVE: Patient returns today for first postoperative visit following a left lateral epicondylar re lease and arthrotomy. Date of surgery was 11/15/15. He is continued to remain in the left e lbow splint that was placed on the date of surgery. Continues with pain medication provided by chronic pain management therapy consisting of methadone and oxycodone. He is also presc ribe Dilaudid 4mg by our office postoperatively, immediately following surgery. He was elsy mmended postoperatively that he continue just with chronic pain medication prescribed by thi s provider however he refused saying he wanted Dilaudid. Today he states he has had this me dication and wants a refill. OBJECTIVE: The left elbow long-arm splint was removed today in the office. Bandages were then removed from the left elbow and arm. Inspection of incision site reveals that is healing appropria tely and actually quite well. No erythema, induration, swelling signs of infection noted. No open wound or drainage noted. Upon removal of bandages patient promptly fully extend and fully flexed his arm before I could top him. Interestingly enough patient states that this did not cause him any discomfort with range of motion. Skin is warm and dry and he is neur ovascularly intact at his left elbow and arm. Imaging/Studies: No studies to review at this time. Current Outpatient Prescriptions on File Prior to [...] 600mg three times daily) 90 capsule 2 glucose blood test strips (TERRI CONTOUR TEST) strip Use as dir 100 each 0 HYDROcodone-acetaminophen (NORCO) 5-325 mg per tablet Take 1 tablet by mouth EVERY 4 TO 6 HOURS NEEDED for Pain. 30 tablet 0 insulin glargine [...] as needed. (Patient taki ng differently: Take 10 mg by mouth [...] for breakthough pain prn).) 120 tablet 0 simvastatin (ZOCOR) 40 mg tablet Take 20 mg by mouth nightly. testosterone cypionate (DEPO-TESTOSTERONE) 200 mg/mL injection Inject into the muscle every 14 days. Per patient takes 0.5 ml twice weekly from a multi dose vial that is 200ml to teodoro. No current facility-administered medications on file prior to visit. Filed Vitals: 11/23/15 1033 Temp: 36.9 C (98.5 F) TempSrc: Temporal Height: 1.829 m (6') Weight: 110.678 kg (244 lb) ASSESSMENT/PLAN: 1. Left lateral epicondylar release and arthrotomy, status postop A. patient is recovering well postoperatively following a left lateral epicondylar release and arthrotomy performed on 11/15/15. He is very pleased with her results. Given that he c ontinue light activity at the left arm with no lifting. Recommended that he move his finger s frequently with flexion and extension of his wrists included. Recommended that he perform gentle flexion-extension of his left arm without weight. At this time I recommended that h e continue with chronic pain medication consisting of oxycodone 30 mg every 6 hours and meth adone 10 mg 3 times a day provided by his chronic pain management provider. He is currently taking oxycodone and methadone with this Dilaudid therapy. Patient absolutely refused. We had a lengthy discussion about the use of receiving very strong opiates from multiple provi ders. Again is noted with physical exam that he achieved full range of motion of the left e lbow upon his own accord, then saying that this caused him no discomfort. I attempted to me dium detention by decreasing him to Dilaudid 2 mg however he refused this as well. It is michael r that no middle ground could be met with this patient. Therefore I did give him a very sma ll prescription for Dilaudid 4 mg one per oral every 6-8 hours as necessary for pain. A tot al of 30 were prescribed. I informed him that I would not refill this again and recommended he continue with chronic pain medication therapy. Follow-up in approximately 2 weeks. B. Patient is advised that if they have any questions, comments or concerns to contact our office. Electronically signed by: Amadeo Saab PA-C 11/24/2015 8:42 This note was dictated using the [employer] voice recognition system. Minor errors in grammar may have occurred. documented in th is encounter Plan of Treatment Not on filedocumented as of this encounter Visit Diagnoses + + | Diagnosis | + + | S/P orthopedic surgery, follow-up exam - Primary Follow-up examination, following | | other surgery | + + documented in this encounter"
--- OUTSIDE RECORDS SUMMARY | ~2020-06-16 | XMS | Encounter Summary ---
Demographics + + + | Address | [address] | | | [place] [address] | + + + | Home Phone [...] [place], | | | | | [place] [address] | | + + + + + Care Team Providers + +------+ + | Care Die Sizer Name | Role | Phone | + +------+ + PCP | Unavailable | + +------+ + Reason for Visit + + + | Reason | Comments | + + + | Follow-up | left lateral epiconylar release & arthrotomy with bone excision | | | dos 11/15/15 increased pain/decreased ROM | + + + Encounter Details +--------+---------+ + + + | Date | Type | Department | Care Team | Description | +--------+---------+ + + + | 05/02/ | Office | [facility] | Miranda Perez | Post-traumatic | | 2016 | Visit | ORTHOPEDIC SURGERY | MD Gosia [address] | osteoarthritis of | | | | [address] | [place] | left elbow (Primary | | | | [place] | [address] | Dx); Shoulder | | | | [address] | | bursitis, | | | | [phone] | | unspecified | | | | | | laterality; Fibroma | +--------+---------+ + + + Social History [...] Temperature | 36.8 C (98.3 F) | 05/02/2016 3:22 PM | | | | | PDT [...] Weight | 110.7 kg (244 lb) | 05/02/2016 3:22 PM | | | | | PDT | | + + + + + | Height | 182.9 cm (6') | 05/02/2016 3:22 PM | | | | | PDT | | + + + + + | Body Mass Index | 33.09 | 05/02/2016 3:22 PM | | | | | PDT | | + + + + + documented in this encounter Progress Notes Miranda Perez MD - 05/02/2016 6:42 PM PDTSee soap note [id number].Electronically sign ed by Miranda Perez MD at 05/02/2016 6:42 PM PDTMiranda Perez MD - 6:41 PM PDT [facility] ORTHOPEDIC SURGERY [address] [place] [address] [id number] OFFICE NOTE MIRANDA PEREZ MD Patient: CECILIO GARCIA Admitting: MR #: [id number] LOC: PT TYPE: Adm Date: 05/02/2016 : 1970 Cecilio returns today for followup of his left elbow pain. He has completed physical therapy. He is receiving pain management from his primary care physician, Dr. Santos. Stevie edge he notes that 85 percent of his pain has resolved from the region of the lateral epico ndyle. However, he continues to have pain that seems to be increasing over the posterior a spect of the elbow at the proximal edge of the olecranon process and also deep within the e lbow joint, associated with attempt at full flexion of the elbow. EXAM: The elbow is examined. He actually has fairly minimal discomfort over the lateral epicondyle at this time. He has significant tenderness at the tip of the olecranon process and definite pain with attempted full flexion and full extension of the elbow. X-RAYS: Again reviewed, which show osteoarthritis with osteophyte formation, including si gnificant enlargement of the coronoid process and spur formation at the tip of the olecrano n process. ADVICE: We discussed our findings at length with Mr. Garcia. He very much wishes for us to proceed with any type of procedure that will help his elbow pain. We have cautioned him that it is unlikely we can remove all his pain, but I think that we can improve things with a femoral plasty that will include resection of the tip of the olecranon process and a transolecranon fossa approach to the coronoid process for debridement. In addition, he a lso has a tender fibroma over his proximal dorsal forearm that can be removed at the same t gurjit as well. He therefore will be scheduled for these procedures following financial clear ance at a time that is convenient for his schedule. In addition, he also wishes to have page th shoulders injected, which are painful and we can therefore injected both shoulder subacr omial spaces while he is under anesthesia as well. MIRANDA PEREZ MD Dictated by MIRANDA PEREZ MD 05/02/2016 18:41:46 Transcribed on 05/03/2016 10:13:34 by [facility] job# [id number] Confirmation #: [id number] cc: ROMINA SANTOS MD documented in this encounter Plan of Treatment Not on filedocumented as of this encounter Visit Diagnoses + + | Diagnosis | + + | Post-traumatic osteoarthritis of left elbow - Primary Secondary localized | | osteoarthrosis, upper arm | + + | Shoulder bursitis, unspecified laterality | + + | Fibroma Other benign neoplasm of connective and other soft tissue of unspecified site | + + documented in this encounter"
--- OUTSIDE RECORDS SUMMARY | ~2020-06-16 | XMS | Encounter Summary ---
Demographics + + + | Address | [address] | | | [place] [address] | + + + | Home Phone [...] [place], | | | | | [place] [address] | | + + + + + Care Team Providers + +------+ + | Care Coding File Clerk Name | Role | Phone | + +------+ + | Dimitri Fischer MD | PCP | | + +------+ + Encounter Details +--------+ + + + + | Date | Type | Department | Care Team | Description | +--------+ + + + + | 10/31/ | Orders Only | [facility] [place] | Marty Wood | S/P orthopedic | | 2018 | | ORTHOPEDIC SURGERY | MD Gosia [address] | surgery, follow-up | | | | [address] | [place] | exam (Primary Dx); | | | | [place] | [phone] | Other tear of medial | | | | [address] | | meniscus of right | | | | [phone] | | knee as current | | | | | | injury, initial | | | | | | encounter; Patella, | | | | | | chondromalacia, | | | | | | right; Right knee | | | | | | pain, [...] | | other surgery | + + | Other tear of medial meniscus of right knee as current injury, initial encounter | + + | Patella, chondromalacia, right | + + | Right knee pain, unspecified chronicity | + + documented in this encounter"
--- OUTSIDE RECORDS SUMMARY | ~2020-06-16 | XMS | Encounter Summary ---
Demographics + + + | Address | [address] | | | [place] [address] | + + + | Home Phone [...] + + + + + | Crystal Shaunhodar | ECON | [address] | | | | | [place], | | | | | [place] [address] | | + + + + + Care Team Providers + +------+ + | Care Advertising Writer Name | Role | Phone | + +------+ + PCP | Unavailable | + +------+ + Encounter Details +--------+ + + + + | Date | Type | Department | Care Team | Description | +--------+ + + + + | 12/01/ | Orders Only | [facility] [place] [facility] | Remi Tadeo MD | SOB (shortness of | | 2014 | | MEDICINE [address] | [address] | breath) (Primary | | | | [address]VE [place], | [place], [place] | Dx); Pre-op testing | | | | [place] [address] | [address] | | | | | [phone] | | | +--------+ + + + [...] + + documented as of this encounter Procedure Notes Remi Tadeo MD - 12/01/2014 5:08 PM PDTAssociated Order(s): ECG 12 LEAD - PBProcedure (s): ECG 12 LEAD - PBPre-Procedure Diagnose(s): SOB (shortness of breath); Pre-op testing A dult ECG Report Name: Cecilio Albakate Corderogilberthank Age: 44 y.o. Gender: male 11/30/14 at 8:31 Narrative Interpretation: Sinus rhythm with incomplete right bundle branch block. There i s ST elevation in leads V2 and 3 which may be a normal variant and J-point elevation though ischemia/infarction cannot be excluded. Electronically signed by Remi Tadeo MD at 2014 5:20 PM PDTdocumented in this encounter Plan of Treatment Not on filedocumented as of this encounter Procedures + +--------+ + + + | Procedure Name | Priori | Date/Time | Associated Diagnosis | Comments | | | ty | | | | + +--------+ + + + | ECG 12 LEAD - PB | Routin | 12/01/2014 | SOB (shortness of | Results for this | | | e | 5:20 PM | breath) Pre-op | procedure are in [...]
--- OUTSIDE RECORDS SUMMARY | ~2020-06-16 | XMS | Encounter Summary ---
Demographics + + + | Address | [address] | | | [place] [address] | + + + | Home Phone [...] [place], | | | | | [place] [address] | | + + + + + Care Team Providers + +------+ + | Care Survey Methodologist Name | Role | Phone | + [...] medial | MD [address] | | | | | meniscus, | [address] | [place], | | | | | current | [place], | [place] [address] | | | | | injury, | [place] | Phone: | | | | | right knee, | [address] | [phone] | | | | | initial | Phone: | Fax: | | | | | encounter | [phone] | [phone] | | | | | Pain in | Fax: | | | | | | right knee | [phone] | | | | | | Other [...] | | | | | | | [place] | | | | | | [...] + + | 12/05/ | Hospital | [facility] | Omega Cortes, | Chronic | | 2019 | Encounter | MED CTR OP INFUSION | MD [address] | osteomyelitis of toe | | | | [address] | [place] | of right foot (HCC) | | | | [place] | [address] | | | | | [address] | [phone] | | | | | [phone] | | | +--------+ + + + [...] + + + | Blood Pressure | 118/59 | 12/05/2018 10:00 AM | | | | | PDT | | + + + + + | Pulse | 103 | 12/05/2018 10:00 AM | | | | | PDT | | + + + + + | Temperature | 36.8 C (98.2 F) | 12/05/2018 9:00 AM | | | | | PDT | | + + + + + | Respiratory Rate | - | - | | + + + + + | Oxygen Saturation | 95% | 12/05/2018 10:00 AM | | | | | PDT [...] encounter Progress Notes Estefania Feliz RN - 12/05/2018 10:01 AM PDT Vitals: 12/05/18 0900 12/05/18 1000 BP: 125/74 118/59 Pulse: 101 103 Temp: 36.8 C (98.2 F) SpO2: 98% 95% Administrations This Visit cefTRIAXone (ROCEPHIN) 2 g in sodium chloride 0.9% 50 mL IVPB Admin Date 12/05/2018 Action New Bag Dose 2 g Rate 100 mL/hr Route Intravenous Administered By Estefania Feliz RN Monitored throughout treatment; treatment completed without untoward effects from medicatio n noted. Next visit Friday AM Verbalizes understanding of plan of care. VS stable. Discharge d ambulatory to home in stable condition. Electronically signed by: Estefania Feliz RN 12/05/2018 10:01 NDeccmiko, Estefania Elise RN - 0 12/05/2018 9:00 AM PDT Vitals: 12/05/18 1000 BP: 118/59 Pulse: 103 Temp: Christopher S Henrytis received into room 441, independent ambulation accompanied by . States here for Rocephin infusion. Reports no change in condition, plan of care since last MD visit. Alert, oriented x 4, cooperative. Electronically signed by: Estefania Feliz RN 12/05/2018 10:00 documented in this enc ounter Plan of [...] 2 g in | New Bag | 12/06/19 | 2 g | 100 | | | sodium chloride 0.9% 50 mL IVPB | | 19 9:26 | | mL/hr | | | 2 g, Intravenous, Administer over | | AM PDT | | | | | 30 Minutes, ONCE, 12/05/18 at | | | | | | | 0815, For 1 dose, Keep in | | [...]
--- OUTSIDE RECORDS SUMMARY | ~2020-06-16 | XMS | Encounter Summary ---
Demographics + + + | Address | [address] | | | [place] [address] | + + + | Home Phone | | + + + | Preferred Language | Unknown | + + + | Marital Status | | + + + | Methodist Affiliation | Unknown | + + + | Race | White | + + + | Ethnic Group | Not or | + + + Author + + + | Author | [facility] | | | and [place] | + + + | Organization | [facility] | | [...] [place], | | | | | [place] [address] | | + + + + + Care Team Providers + +------+ + | Care Revenue Liaison Name | Role | Phone | + +------+ + PCP | Unavailable | + +------+ + Encounter Details +--------+ + + + + | Date | Type | Department | Care Team | Description | +--------+ + + + + | 12/05/ | Orders Only | [facility] [place] | Marty Wood | Medial meniscus | | 2014 | | ORTHOPEDIC SURGERY | MD Gosia [address] | tear, right, | | | | [address] [place] | [place] | subsequent encounter | | | | [place] | [address] | (Primary Dx) | | | | [address] | | | | | | [phone] | | | +--------+ + + + [...]
--- OUTSIDE RECORDS SUMMARY | ~2020-06-16 | XMS | Encounter Summary ---
Demographics + + + | Address | [address] [facility] | | | [place] [address] | + + + | Home Phone [...] [place], | | | | | [place] [address] | | + + + + + Care Team Providers + +------+ + | Care Scoop Operator Name | Role | Phone | [...] | Specialty | Physical | Diagnoses | Perez, | Do Not Use | | | Services | Therapy / | Right knee | Miranda Elise, | - [facility] | | | Required | Rehabilitatio | pain 719.46 | MD [address] | [address] | | | | n | (ICD-9-CM) | [address] | [address] | | | | | - Right knee | [place], | [place], | | | | | pain | [place] [address] | [place] [address] | | | | | Procedures | Phone: | Phone: | | | | | pt eval | [phone] | [phone] | | | | | (pool) | Fax: | Fax: | | | | | | [phone] | [phone] | +--------+ + + + + + Encounter Details +--------+---------+ + + + | Date | Type | Department | Care Team | Description | +--------+---------+ + + + | 01/09/ | Office | [facility] | Miranda Perez | Right knee pain | | 2015 | Visit | ORTHOPEDIC SURGERY | MD Gosia [address] | (Primary Dx); S/P | | | | [address] | [place] | orthopedic surgery, | | | | [place] | [address] | follow-up exam | | | | [address] | | | | | | [phone] | | | +--------+---------+ + + + [...] encounter Progress Notes Miranda Perez MD - 01/09/2015 1:50 PM PDTSee soap note [id number].Electronically valdez d by Miranda Perez MD at 01/09/2015 1:50 PM Miranda Singh MD - 01/09/2015 1:48 PM PDT [facility] ORTHOPEDIC SURGERY [address] [place] [address] [id number] OFFICE NOTE MIRNADA PEREZ MD Patient: CECILIO GARCIA Admitting: MR #: [id number] LOC: PT TYPE: Adm Date: 01/09/2015 : 1970 SUBJECTIVE: Cecilio returns today for follow up of his right knee arthroscopy that wa s performed on 12/05. He notes that he still is having right knee pain, although he is no longer having much in the way of medial joint line pain. He states he is having more anter ior knee pain and some discomfort with knee extension against resistance. He did sustain a fall approximately a week and a half ago landing on the anterior aspect of his right knee which has aggravated his underlying knee pain. EXAMINATION: The patient's right knee is examined. All incisions have healed nicely. Th ere is no evidence of drainage or infection. There is no visible knee effusion present. L igaments remain stable. The knee is diffusely tender anteriorly. ADVICE: We advised Cecilio that he should certainly improve with time. We will send him to physical therapy at the [facility] by [facility] for multiple mo dality treatment including aqua therapy. We have given Cecilio a single refill for Dil audid 4 mg to use as needed for pain. We will plan to see him back in a month for clinica l follow up. MIRANDA PEREZ MD Dictated by MIRANDA PEREZ MD 01/09/2015 13:48:48 Transcribed on 01/09/2015 20:18:27 by neli job# [id number] Confirmation #: [id number] cc: IRAIDA FISH MD A M PDTdocumented in this encounter Plan of Treatment + + +--------+ + + | Name | Type | Priori | Associated Diagnoses | Order Schedule | | | | ty | | | + + +--------+ + + | * [facility] | Outpatient | Routin | Right knee pain | Ordered: 01/09/2015 | | Therapy - AMB | Referral | e | | | | Referral | | | | | + + +--------+ + + documented as of this encounter Results XR Knee [...] + | [facility] [facility] | [address] | [place] | [phone] | | [facility] | | [address] | | | - IMAGING | | | | + + + + + documented in this encounter Visit Diagnoses + + | Diagnosis | + + | Right knee pain - Primary Pain in joint, lower leg | + + | S/P orthopedic surgery, follow-up exam Follow-up examination, following other surgery | + + documented in this encounter"
--- OUTSIDE RECORDS SUMMARY | ~2020-06-16 | XMS | Encounter Summary ---
Demographics + + + | Address | [address] | | | [place] [address] | + + + | Home Phone | | + + + | Preferred Language | Unknown | + + + | Marital Status | | + + + | Latter-Day Affiliation | Unknown | + + + [...] [place], | | | | | [place] [address] | | + + + + + Care Team Providers + +------+ + | Care Drafting Detailer Name | Role | Phone | + +------+ + | Dimitri Fischer MD | PCP | | + +------+ + Reason for Visit + + + | Reason | Comments | + + + | Follow-up | Follow Up Increased Pain (Left elbow exploration DOS:05/14/2017) | + + + Encounter Details +--------+---------+ + + + | Date | Type | Department | Care Team | Description | +--------+---------+ + + + | 12/22/ | Office | [facility] | Marty Wood | Left elbow pain | | 2018 | Visit | ORTHOPEDIC SURGERY | MD Gosia [address] | (Primary Dx); | | | | [address] | [place] | Smoker; Preop | | | | [place] | [id number] | testing; Other tear | | | | [address] | | of medial meniscus | | | | [phone] | | of right knee as | [...] Weight | 97.1 kg (214 lb) | 12/22/2017 2:58 PM | | | | | PDT | | + + + + + | Height | 182.9 cm (6') | 12/22/2017 2:58 PM | | | | | PDT | | + + + + + | Body Mass Index | 29.02 | 12/22/2017 2:58 PM | | | | | PDT | | + + + + + documented in this encounter Progress Notes Marty Wood MD - 12/22/2017 2:30 PM PDTChristopher returns for multiple problems including bilateral shoulder pain, left elbow pain, and right knee pain. As noted previous ly, recent MRI scan shows evidence of chondromalacia and a medial meniscus tear and he there fore is felt to be a candidate for right knee arthroscopy. His insurance carrier requires t hat he be free of nicotine prior to surgery, and he therefore is beginning to participate in the appropriate blood testing to confirm that he is nicotine free. Exam: Examination of the left elbow reveals that he lacks approximately 12 of full extens ion. He is tender to palpation surrounding the elbow joint margins. The elbow joint remain s stable. Neurovascular function is intact the left hand. He is also found to have pain wi th abduction of both shoulders against resistance. X-rays: Imaging obtained of the left shoulder today shows ongoing, gradually progressive, d egenerative changes throughout the left elbow joint. Advice: Cecilio carr is awaiting financial clearance to proceed with right knee arthrosc opy. Once this is scheduled, we may consider combining injections of both shoulders as well as the left elbow joint while he is under anesthesia, and he is agreeable with this plan. Therefore, we will plan to schedule Cecilio for a right knee arthroscopy combined with a left elbow joint injection and bilateral shoulder subacromial space injections following fi nancial clearance, which will come after he has proven himself to be nicotine free.Codey orozco signed by Marty Wood MD at 12/22/2017 6:37 PM PDTdocumented in this encount er Plan of Treatment Not on filedocumented as of this encounter Results Nicotine and Metabolites (12/22/2017 3:45 PM PDT) + + + + + [...] + + + + | COTININE, | 1.7Comment: Cotinine | ng/mL | REFERENCE | | [...] | Performed at: [facility] [address], | REFERENCE LAB | | [place], [place] [id number] Cosmetic Manager: Amish Duarte MD, Phone: | [facility] | | [phone] | | + + + + + + + + | Performing | Address | City/State/Zipcode | Phone Number | | Organization | | | | + + + + + | REFERENCE LAB | [address] | [place], [place] | [phone] | | [facility] | [facility] | [address] | | + + + + + XR Elbow Left 3 + Vw (12/22/2017 [...] joint, upper arm | + + | Smoker Tobacco use disorder | + + | Preop testing Preoperative examination, unspecified | + + | Other tear of medial meniscus of right knee as current injury, initial encounter | + + | Bilateral shoulder pain, unspecified chronicity | + + documented in this encounter"
--- OUTSIDE RECORDS SUMMARY | ~2020-06-16 | XMS | Encounter Summary ---
Demographics + + + | Address | [address] | | | [place] [address] | + + + | Home Phone [...] [place], | | | | | [place] [address] | | + + + + + Care Team Providers + +------+ + | Care Veterinary Receptionist Name | Role | Phone | + +------+ + PCP | Unavailable | + +------+ + Encounter Details +--------+ + + + + | Date | Type | Department | Care Team | Description | +--------+ + + + + | 02/21/ | Hospital | [facility] | | | | 1992 | Encounter | SYSTEM RADIOLOGY | | | | | | CONVERSION [address] | | | | | | [address] [place], [place] | | | | | | [address] | | | | | | [phone] | | | +--------+ + + + [...]
--- OUTSIDE RECORDS SUMMARY | ~2020-06-16 | XMS | Encounter Summary ---
Demographics + + + | Address | [address] | | | [place] [address] | + + + | Home Phone [...] [place], | | | | | [place] [address] | | + + + + + Care Team Providers + +------+ + | Care Compliance Testing Analyst Name | Role | Phone | + +------+ + | Dimitri Fischer MD | PCP | | + +------+ + Reason for Visit +--------+--------+ + | Reason | Onset | Comments | | | Date | | +--------+--------+ + | Other | 11/28/ | | | | 2017 | | +--------+--------+ + Encounter Details +--------+ + + + + | Date | Type | Department | Care Team | Description | +--------+ + + + + | 11/28/ | Telephone | [facility] | Marty Wood | Other | | 2017 | | ORTHOPEDIC SURGERY | MD Gosia [address] | | | | | [address] | [place] | | | | | [place] | [address] | | | | | [address] | | | | | | [phone] | | | +--------+ + + + [...] Notes Telephone Encounter - Ree Do - 11/28/2017 11:29 AM PSTPatient called wanting to speak with the nurse about surgery. Per patient Dr Berrios stated he could smoke his E-Cigarette. Patient was informed that he has to be nicotine free in order for his insu nadya to approve the surgery and E-Cigarette have nicotine in them. Patient stated that he w as going to call his insurance company and see why they said that the E-Cigarette was ok. Luigi massey was advised to call our office when he has been nicotine free for a month so our offic e could order the lab test. documented in this encounter Plan of Treatment Not on filedocumented as of this encounter Visit Diagnoses Not on filedocumented in this encounter"
--- OUTSIDE RECORDS SUMMARY | ~2020-06-16 | XMS | Encounter Summary ---
Demographics + + + | Address | [address] | | | [place] [address] | + + + | Home Phone [...] [place], | | | | | [place] [address] | | + + + + + Care Team Providers + +------+ + | Care Multimedia Authoring Specialist Name | Role | Phone | [...] Osteomyeliti | MD [address] | | | | | s, | [address] | [place], | | | | | Rocephin,IV, | [place], | [place] [address] | | | | | or IM 2G | [place] | Phone: | | | | | daily [phone] | [address] | [phone] | | | | | days | Phone: | Fax: | | | | | Procedures | [phone] | [phone] | | | | | [place] | Fax: | | | | | | CEFTRIAXONE | [phone] | | | | | | SODIUM | | | | | | | INJECTION, | | | | | | | 250 MG [place] | | | | | | [...] | +--------+ + + + + | 12/14/ | Hospital | [facility] | Omega Cortes, | Chronic | | 2019 | Encounter | MED CTR OP INFUSION | MD [address] | osteomyelitis of toe | | | | [address] | [place] | of right foot (HCC) | | | | [place], [place] | [address] | | | | | [address] | [phone] | | | | | [phone] | | | +--------+ + + + [...] + + + | Blood Pressure | 135/72 | 12/14/2018 12:38 PM | | | | | PDT | | + + + + + | Pulse | 111 | 12/14/2018 12:38 PM | | | | | PDT | | + + + + + | Temperature | 36.6 C (97.9 F) | 12/14/2018 12:38 PM | | | | | PDT | | + + + + + | Respiratory Rate | 16 | 12/14/2018 12:38 PM | | | | | PDT | | + + + + + | Oxygen Saturation | 95% | 12/14/2018 12:38 PM | | | | | PDT [...] encounter Progress Notes Henrietta Funk RN - 12/14/2018 1:13 PM PDTFormatting of this note might be diffe rent from the original. Vitals: 12/14/18 1238 BP: 135/72 Pulse: 111 Resp: 16 Temp: 36.6 C (97.9 F) TempSrc: Oral SpO2: 95% Administrations This Visit cefTRIAXone (ROCEPHIN) 2 g in sodium chloride 0.9% 50 mL IVPB Admin Date 12/14/2018 Action New Bag Dose 2 g Rate 100 mL/hr Route Intravenous Administered By Henrietta Funk RN Monitored throughout treatment; treatment completed without untoward effects from medicatio n noted. Next visit tomorrow 1200. Verbalizes understanding of plan of care. Declined post m edication VS. Discharged ambulatory to home in stable condition. Electronically signed by: Henrietta Funk RN 12/14/2018 13:14 enrietta Foster RN - 12/14/2018 12:39 PM PDT Vitals: 12/14/18 1238 BP: 135/72 Pulse: 111 Resp: 16 Temp: 36.6 C (97.9 F) Cecilio Arias received into room 441, independent ambulation accompanied by spous e. States here for rocephin infusion. Reports no change in condition, plan of care since nancie thomas MD visit. Alert, oriented x 4, cooperative. Electronically signed by: Henriteta Funk RN 12/14/2018 12:39 documented in this encounter Plan of Treatment [...] 2 g in | New Bag | 12/15/19 | 2 g | 100 | | | sodium chloride 0.9% 50 mL IVPB | | 19 12:38 | | mL/hr | | | 2 g, Intravenous, Administer over | | PM PDT | | | | | 30 Minutes, ONCE, 12/14/18 at | | | | | | | 1240, For 1 dose, Keep in | | [...]
--- OUTSIDE RECORDS SUMMARY | ~2020-06-16 | XMS | Encounter Summary ---
Demographics + + + | Address | [address] | | | [place] [address] | + + + | Home Phone | | + + + | Preferred Language | Unknown | + + + | Marital Status | | + + + | Jain Affiliation | Unknown | + + + | Race | White | + + + | Ethnic Group | Not or | + + + Author + + + | Author | [facility] | | | and [place] | + + + | Organization | [facility] | | [...] [place], | | | | | [place] [address] | | + + + + + Care Team Providers + +------+ + | Care Skip Miner Name | Role | Phone | + [...] medial | MD [address] | | | | | meniscus, | [address] | [place], | | | | | current | [place], | [place] [address] | | | | | injury, | [place] | Phone: | | | | | right knee, | [address] | [phone] | | | | | initial | Phone: | Fax: | | | | | encounter | [phone] | [phone] | | | | | Pain in | Fax: | | | | | | right knee | [phone] | | | | | | Other [...] | | | | | | | [place] | | | | | | [...] | +--------+ + + + + | 12/06/ | Hospital | [facility] | Amadeo Saab | Chronic | | 2019 | Encounter | MED CTR OP INFUSION | [address] | osteomyelitis of toe | | | | [address] | [place] [facility] | of right foot (HCC) | | | | [place] | [place] [address] | | | | | [address] | [phone] | | | | | [phone] | | | +--------+ + + + [...] + + + | Blood Pressure | 130/59 | 12/06/2018 11:10 AM | | | | | PDT | | + + + + + | Pulse | 97 | 12/06/2018 11:10 AM | | | | | PDT | | + + + + + | Temperature | 36.6 C (97.9 F) | 12/06/2018 10:15 AM | | | | | PDT | | + + + + + | Respiratory Rate | - | - | | + + + + + | Oxygen Saturation | 99% | 12/06/2018 11:10 AM | | | | | PDT [...] encounter Progress Notes Estefania Feliz RN - 12/06/2018 10:15 AM PDT Vitals: 12/06/18 1015 BP: 127/66 Pulse: 99 Temp: 36.6 C (97.9 F) Cecilio Arias received into room 441, independent ambulation accompanied by . States here for Rocephin infusion. Reports no change in condition, plan of care since last MD visit. Alert, oriented x 4, cooperative. Electronically signed by: Estefania Feliz RN 12/06/2018 10:49 documented in this enc ounter Plan of [...] 2 g in | New Bag | 12/07/19 | 2 g | 100 | | | sodium chloride 0.9% 50 mL IVPB | | 19 10:32 | | mL/hr | | | 2 g, Intravenous, Administer over | | AM PDT | | | | | 30 Minutes, ONCE, 12/06/18 at | | | | | | [...]
--- OUTSIDE RECORDS SUMMARY | ~2020-06-16 | XMS | Encounter Summary ---
Demographics + + + | Address | [address] | | | [place] [address] | + + + | Home Phone | | + + + | Preferred Language | Unknown | + + + | Marital Status | | + + + | Rastafarian Affiliation | Unknown | + + + [...] [place], | | | | | [place] [address] | | + + + + + Care Team Providers + +------+ + | Care Financial Processing Clerk Name | Role | Phone | [...] +--------+ + + + + + | Denied | Specialty | Podiatry | Diagnoses | Minfuad, | Joseph, | | | Services | | Right foot | Jose | Rodriguez Hubbard DPM | | | Required | | pain | MD Stan | [address] | | | | | Procedures | [address] | [address] [place] | | | | | 06/23>PEND | [address] [place] | [place] [address] | | | | | PT C/B | [place] | [address] | | | | | | [address] | Phone: | | | | | | Phone: | [phone] | | | | | | [phone] | Fax: | | | | | | Fax: | [phone] | | | | | | [phone] | | +--------+ + + + + + Evaluate & Treat (Routine) +--------+ + + + + + | Status | Reason | Specialty | Diagnoses / | Referred By | Referred To | | | | | Procedures | Contact | Contact | +--------+ + + + + + | Denied | Specialty | Orthopedic | Diagnoses | Trista, | Anibal | | | Services | Surgery | Right foot | Jose | Jose Nicole DO | | | Required | | pain | MD Stan | [address] | | | | | | [address] | [address] [place] | | | | | | [place] | [place] | | | | | | [place], [place] | [address] | | | | | | [address] | Phone: | | | | | | Phone: | [phone] | | | | | | [phone] | Fax: | | | | | | Fax: | [phone] | | | | | | [phone] | | +--------+ + + + + + Reason for Visit + + + | Reason | Comments | + + + | Foot Pain | | + + + Encounter Details +--------+ + + + + | Date | Type | Department | Care Team | Description | +--------+ + + + + | 06/21/ | Emergency | [facility] | Jose Weston | Right foot pain | | 2018 | | [facility] | MD Stan [address] | (Primary Dx) | | | | CENTER [address] | [address] [facility] | | | | | [place], [place] | [place] [address] | | | | | [address] | [phone] | | | | | [phone] | | | +--------+ + + + [...] + + + | Blood Pressure | 134/89 | 06/21/2018 3:31 AM | | | | | PDT | | + + + + + | Pulse | 89 | 06/21/2018 3:31 AM | | | | | PDT | | + + + + + | Temperature | 36.7 C (98 F) | 06/21/2018 3:31 AM | | | | | PDT | | + + + + + | Respiratory Rate | 18 | 06/21/2018 3:31 AM | | | | | PDT | | + + + + + | Oxygen Saturation | 99% | 06/21/2018 3:31 AM | | | | | PDT | | + + + + + | Inhaled Oxygen | - | - | | | Concentration | | | | + + + + + | Weight | 83.9 kg (185 lb) | 06/21/2018 3:31 AM | | | | | PDT | | + + + + + | Height | 182.9 cm (6') | 06/21/2018 3:31 AM | | | | | PDT | | + + + + + | Body Mass Index | 25.09 | 06/21/2018 3:31 AM | | | | | PDT | | + + + + + documented in this encounter Discharge Instructions AttachmentsThe following attachments cannot be sent through Care Everywhere.Regla vergara)documented in this encounter Medications at Time [...] 0 | 07/09/20 | | | SYR [id number] 22G X | TESTOSTERONE TWICE A | | | 17 | 9 | | 1-09/23" 3 ML MISC | WEEK | | | | | + + + +---------+ + + | B-D 3CC LUER-ANDREAS | | | 0 | 11/18/19 | | | SYR 66UU3-0/2 23G X | | | | 18 [...] encounter ED Notes Jose Weston MD - 06/21/2018 3:40 AM PDTFormatting of this note might be diff erent from the original. [facility] Emergency Department Encounter Note [address] [place] [address] PCP:Dimitri Fischer MD [phone] CHIEF COMPLAINT: Chief Complaint Patient presents with Foot Pain ED Room: ED09 [facility] Cecilio Arias is a 48 y.o. male who presents to the Emergency Department Reports right foot pain after getting his foot stepped on a few days ago positionally exace rbated relieved by rest no other symptoms reported refuses to provide further history. Language line historic interpreter made available and used to collect historical details as needed. 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 Seizure ([facility]) Opiate dependence ([facility]) 06/20/2015 Knee pain, right 02/03/2015 Low back pain 01/17/2012 Hyperlipidemia 10/31/2011 Mixed, or nondependent drug abuse 10/28/2011 Note Last Updated: 08/05/2016 Overview: THC use 01/16/12 pt will not use.. Type 2 diabetes mellitus ([facility]) 10/28/2011 Backache 10/25/2011 Note Last Updated: 07/21/2017 Overview: wants to see pain specialist. broken contract at previous clinic Overview: wants to see pain specialist. broken contract at previous clinic Dx name changed by system update 06/13/2017 Chronic airway obstruction, not elsewhere classified 10/25/2011 Obesity 10/25/2011 Note Last Updated: 07/21/2017 Overview: Dx Name changed by system update on 07/04/2017 Diabetes mellitus ([facility]) 10/03/2011 Past Surgical History: Procedure Laterality Date CARPAL TUNNEL RELEASE Left 05/14/2017 Procedure: Left Elbow Joint Exploration and Bilateral Shoulder Injection; Surgeon: Nirmal Wood MD; Location: [facility] MA[facility] OR ELBOW SURGERY Left 11/15/2015 Procedure: Left Lateral Epicondylar Release & Injection of Left Elbow Joint ; Surgeon: Janet Wood MD; Location: [facility] MA[facility] OR KNEE ARTHROSCOPY Right 12/05/2014 Procedure: Right Knee Arthroscopy with Partial Medial Menisectomy and Medial- Femoral Tay droplasty; Surgeon: Marty Wood MD; Location: [facility] MAIN OR KNEE ARTHROSCOPY Right 02/11/2018 Procedure: Right Knee Arthroscopy & bilateral Elbow Injections, Lateral Tibial Chondroplas ty, Medial Femoral Chondroplasty, Partial medial meniscectomy; Surgeon: Marty Wood MD; Location: [facility] MAIN OR MANDIBLE SURGERY spinal cord injury CURRENT MEDICATIONS Discharge Medication List as of 06/21/2018 3:48 CONTINUE these medications which have NOT CHANGED Details amphetamine-dextroamphetamine (ADDERALL XR) 30 MG 24 hr capsule take 1 capsule by mouth onc e dailyR-0, Historical Med amphetamine-dextroamphetamine (ADDERALL) 20 mg tablet take 1 tablet by mouth every morning and 1/2 tablet at noonR-0, Historical Med aspirin 325 mg tablet Take 1 tablet by mouth Daily.Disp-30 tablet, R-0, Normal B-D 3CC LUER-ANDREAS SYR 46YF5-3/2 22G X 1-1/2" 3 ML MISC use to INJECT TESTOSTERONE TWICE A WE EKR-0, LORENZO, Historical Med B-D 3CC LUER-ANDREAS SYR 01WT3-0/2 23G X 1-1/2" 3 ML MISC R-0, [...] Severe Contraindications. Con sult references such as Micromedex for further information. methadone 10 mg tablet Take 0.5 tablets by mouth every 8 hours as needed.Disp-45 tablet, R- 0, PrintMedication has a BLACK BOX Warning or Severe Contraindications. Consult references such as Micromedex for further information. NARCAN 4 MG/0.1ML R-0, [...] PHYSICAL EXAM VITAL SIGNS: (first vital signs):Temp: 36.7 C (98 F) Pulse: 89 Resp: 18 SpO2: 99 % BP: 134/89 Body mass index is 25.09 kg/m. Constitutional: Well-appearing male patient. HEENT: Atraumatic, PERRL, Oropharynx benign. [...] tested Psychiatric: Normal mood, affect and judgement. Right lower extremity is neurovascularly intact with soft compartments. EKG 12-lead EKG shows LABS Results for orders placed or performed during the hospital encounter of 02/11/18 POC Glucose Result Value Ref Range Glucose, POC 224 (H) 70 - 109 mg/dL IMAGING STUDIES (X-Rays interpreted by ED Physician) ED COURSE & MEDICAL DECISION MAKING Pertinent Labs & Imaging studies were reviewed along with EMS notes and longterm record s if applicable. (See chart for details) Medications and Allergy list reviewed. Nurses note and old records were reviewed The patient was seen and examined, X-ray of his foot is ordered however he takes the Percocet during imaging and eloped from t he ER. Last Set of Vital Signs: Temp: 36.7 C (98 F) Pulse: 89 Resp: 18 SpO2: 99 % BP: 134/89 FINAL IMPRESSION ICD-10-CM ICD-9-CM 1. Right foot pain M79.671 729.5 Follow-up Information Abril Pryor MD. Call today. Specialty: Internal Medicine Contact information: [address] [facility] [address] Jose Barnett DO. Call today. Specialty: Orthopedic Surgery Contact information: [address] [facility] [address] Rodriguez Ruiz DPM. Call today. Specialty: Podiatry Contact information: [address] [facility] [address] Discharge Medication List as of 06/21/2018 3:48 Portions of this chart were created with [employer] voice recognition software. Inadvertent so und alike substitutions may be present and are unintentional Jose Weston MD 06/22/18 0241 Mansoor Ellison RN - 06/21/2018 3:31 AM PDTPt has had right foot pain since being involved in an [employer] ation on 06/15. Pt states the pain continues to get worse. documented in this encounter Plan of Treatment + +------+--------+ + + | Name | Type | Priori | Associated Diagnoses | Date/Time | | | | ty | | | + +------+--------+ + + | ED INFORMATION | SHITAL | Routin | | 06/21/2018 3:27 AM | | EXCHANGE | | e | | PDT | + +------+--------+ + + + + +--------+ + + | Name | Type | Priori | Associated Diagnoses | Order Schedule | | | | ty | | | + + +--------+ + + | Nicolasa Baldwin | Outpatient | Routin | Right foot pain | Ordered: 06/21/2018 | | Clinic Orthopedic - | Referral | e | | | | AMB Referral | | | | | + + +--------+ + + | Podiatry, External - | Outpatient | Routin | Right foot pain | Ordered: 06/21/2018 | | AMB Referral | Referral | e | | | + + +--------+ + + documented as of this encounter Procedures + +--------+ + + + | Procedure Name | Priori | Date/Time | Associated Diagnosis | Comments | | | ty | | | | + +--------+ + + + | XR FOOT RIGHT 1 VW | STAT | 06/21/2018 | | Results for this | | LIMITED | | 3:49 AM | | procedure are in the | | | | PDT | | results section. | + +--------+ + + + | ED INFORMATION | Routin | 06/21/2018 | | | | EXCHANGE | e | 3:27 AM | | | | | | PDT | | | + +--------+ + + + +---+--------+ | | | | | Proced | | | ure | | | Note - | | | Gloria, | | | Lab In | | | | | | Hlseve | | | n - | | | /30/ | | | 2018 | | | 3:28 | | | AM PDT | | | | | | [...] | | | ON?09/ | | | 30/201 | | | 8 | | | 03:24? | | | AVLONI | | | TIS, | | | DENIS | | | OPHER | | | S?MRN: | | | | | | [id number] | | | [id number] | | | his | | | [...] | | | ent/17 | | | [id number] | | | [id number] | | | [id number] | | | [id number] | | | [id number] | | | [id number] | | | [...] | | int | | | Sep | | | [...] | | | 2018 | | | 04-10 | | | [...] | | | 2018 | | | 7 | | | [...] | | | 2018-0 | | | 4-13 | | | OXYCOD | | | ONE | | | HCL 30 | | | MG | | | TABLET | | | 180 | | | KAT | | | DENIS | | | ENSEN | | | 2 270 | | | 2018-0 | | | 4-13 | | | METHAD | | | ONE | | | HCL 10 | | | MG | | | TABLET | | | 480 | | | KAT | | | DENIS | | | ENSEN | | | 2 480 | | | 2018-0 | | | 4-04 | | | DEXTRO | | | AMP-AM | | | PHET | | | ER 30 | | | MG CAP | | | 30 | | | KAT | | | DENIS | | | ENSEN | | | 2 0 | | | 2018-0 | | | 4-04 | | | DEXTRO | | | AMP-AM | | | PHETAM | | | IN 20 | | | MG TAB | | | 45 | | | KAT | | | [...] | | | sed | | | 7,425 | | | Unique | | | [...] in this encounter Results XR Foot Right 1 Vw Limited (06/21/2018 3:49 AM PDT) + + | Specimen | + + | | + + + + + | Narrative | Performed At | + + + | XR FOOT RIGHT 1 VW LIMITED 06/21/2018 3:38 AM HISTORY: Right Foot | [facility] | | pain. COMPARISON: None. FINDINGS: AP view of the right foot | | | was obtained. There are no acute osseous abnormalities. Mild | | | degenerative changes are seen at the first IP joint and the second | | | through fifth DIP joints.. Bone mineralization is normal. There is | | | questionable soft tissue injury involving the first digit distally. | | | IMPRESSION - Limited evaluation as only one image was obtained. | | | No acute osseous findings. Degenerative changes. Questionable | | | soft tissue injury involving the first digit distally. If | | | clinically indicated, additional views can be obtained. Dictated | | | and Signed by: Kyle Peoples MD Electronically signed: 06/21/2018 | | | 2:41 PM | | + + + + + | Procedure Note | + + | Gloria, Rad Results In - 06/21/2018 2:44 PM PDT XR FOOT RIGHT 1 VW LIMITED 06/21/2018 | | 3:38 AMHISTORY: Right Foot pain.COMPARISON: None.FINDINGS:AP view of the right foot was | | obtained. There are no acute osseousabnormalities. Mild degenerative changes are seen at | | the first IP joint and thesecond through fifth DIP joints.. Bone mineralization is | | normal. There isquestionable soft tissue injury involving the first digit | | distally.IMPRESSION -Limited evaluation as only one image was obtained.No acute osseous | | findings.Degenerative changes.Questionable soft tissue injury involving the first digit | | distally.If clinically indicated, additional views can be obtained.Dictated and Signed | | by: Kyle Peoples MD Electronically signed: 06/21/2018 2:41 PM | |second through fifth DIP joints.. Bone mineralization is normal. There is | |questionable soft tissue injury involving the first digit distally. | | | |IMPRESSION - | |Limited evaluation as only one image was obtained. | | | |No acute osseous findings. | | | |Degenerative changes. | | | |Questionable soft tissue injury involving the first digit distally. | | | |If clinically indicated, additional views can be obtained. | | | |Dictated and Signed by: Kyle Peoples MD | | Electronically signed: 06/21/2018 2:41 PM | + + + +---------+ + + | Performing | Address | City/State/Zipcode | Phone Number | | Organization | | | | + +---------+ + + | [facility] | | | | + +---------+ + + documented in this encounter Visit Diagnoses + + | Diagnosis | + + | Right foot pain - Primary Pain in limb | + + documented in this encounter
--- OUTSIDE RECORDS SUMMARY | ~2020-06-16 | XMS | Encounter Summary ---
Demographics + + + | Address | [address] | | | [place] [address] | + + + | Home Phone [...] [place], | | | | | [place] [address] | | + + + + + Care Team Providers + +------+ + | Care Environmental Advisor Name | Role | Phone | + [...] Closed | | Radiology | Diagnoses | Perez, | [facility] | | | | | Knee pain, | Marty L, | [address] | | | | | unspecified | [address] | [place], | | | | | laterality | [address] | [place] | | | | | Procedures | [place], | [address] | | | | | MRI Knee | [place] [address] | Phone: | | | | | Left wo | Phone: | [phone] | | | | | Contrast | [phone] | Fax: | | | | | | Fax: | [phone] | | | | | | [phone] | | +--------+--------+ + + + + Reason for Visit + + + | Reason | Comments | + + + | Knee Pain | bilat knee pain | + + + Evaluate [...] | | | | | of | [address] | [place] | | | | | knee(717.89) | [place], | [address] Phone: | | | | | Left knee | [place] [address] | [phone] | | | | | pain | Phone: | Fax: | | | | | | [phone] | [phone] | | | | | | Fax: | | | | | | | [phone] | | +--------+--------+ + + + + Encounter Details +--------+---------+ + + + | Date | Type | Department | Care Team | Description | +--------+---------+ + + + | 04/20/ | [facility] Marty Perez | Knee pain, | | 2014 | Visit | ORTHOPEDIC SURGERY | MD [place] [address] | unspecified | | | | [address] [place] | [place] | laterality (Primary | | | | [place] | [address] | Dx); Contusion of | | | | [address] | | knee, right, initial | | | | [phone] | | encounter; | | | | | | Chondromalacia | | | | [...] + + | Temperature | 37.1 C (98.8 F) | 04/20/2015 2:33 PM | | | | | PDT [...] + + + + | Weight | 120.2 kg (265 lb) | 04/20/2015 2:33 PM | | | | | PDT | | + + + + + | Height | 180.3 cm (5' 11") | 04/20/2015 2:33 PM | | | | | PDT | | + + + + + | Body Mass Index | 36.96 | 04/20/2015 2:33 PM | | | | | PDT | | + + + + + documented in this encounter Progress Notes Marty Perez MD - 04/20/2015 3:12 PM PDTJori sojose antonio note [id number].Electronically sign ed by Marty Perez MD at 04/20/2015 3:13 PM Marty Singh MD - 5 3:11 PM PDT [facility] [address] [place] [address] OFFICE NOTE MARTY PEREZ MD Patient: LOY GARCIA Admitting: MR #: [id number] LOC: PT TYPE: Adm Date: 04/20/2015 : 1970 Mr. Garcia returns to see us today, last having been seen on 01/09/2015. He had underg one a right knee arthroscopy 12/05 and actually did reasonably well from that. Unfortunate ly, he sustained a fall at [employer] approximately a month ago and was seen subsequently for that problem by his primary care physician, Dr. Baca in [place]. X-rays were take n and he was advised to simply follow up in our office for care of this injury. He states that he does feel a burning pain throughout the anterior aspect of his right knee, although the far medial side of the knee where he had pain prior to surgery has remained comfortab le. In addition, his recent right knee injury. He also has been experiencing increasing pain in his left knee. He particularly notes painful crepitus with knee extension. He denies i nstability but states that the knee is symptomatic with increased activity. EXAMINATION: The patient's right knee is examined. His arthroscopic portal sites and inc isions are well healed and only minimally visible. His knee motion is full, from 0 to 120 d egrees. He is tender to palpation over the anterior aspect of the knee including the rhoades lar and infrapatellar tendon area. There is no obvious ligamentous instability. Exam of the left knee reveals that he has fairly prominent crepitus emanating from the patellofemor al compartment, associated with knee motion. He states he has pain with patellofemoral com pression. Ligaments are stable and neurovascular function is intact to the left knee. X-RAYS: X-rays were obtained today of both knees and are reviewed. He has fairly mild de generative change of both knees with mild narrowing of the medial compartments, slightly wo rse on the right than the left. There is no evidence of fracture or acute bony change. The patellae are well aligned on the Merchant view. ADVICE: In regards to Loy's right knee I feel that he simply sustained a very sig nificant knee contusion. This should improve with time and may require 3-6 months to reach his pre-injury status. I do not see any evidence for surgical intervention at this time. In regards to his left knee he certainly has fairly profound crepitus with motion and the refore, further investigation is warranted. We will obtain an MRI scan of his left knee. We will see him back in our office on completion of the study. If there is evidence of und erlying pathology, consideration will be given to knee arthroscopy on his left knee. MARTY PEREZ MD Dictated by MARTY PEREZ MD 04/20/2015 15:11:54 Transcribed on 04/21/2015 05:29:38 by job# [id number] Confirmation #: [id number] cc: CLIFF BACA MD A M PDTdocumented in this encounter Plan of Treatment + +---------+--------+ + + | Name | Type | Priori | Associated Diagnoses | Order Schedule | | | | ty | | | + +---------+--------+ + + | MRI Knee Left wo | Imaging | Routin | Knee pain, | Expected: | | Contrast | | e | unspecified | 04/20/2015, Expires: | | | | | laterality | 04/19/2016 | + +---------+--------+ + + documented as of this encounter Visit Diagnoses + + | Diagnosis | + + | Knee pain, unspecified laterality - Primary | + + | Contusion of knee, right, initial encounter | + + | Chondromalacia patellae of left knee Chondromalacia | + + documented in this encounter
--- OUTSIDE RECORDS SUMMARY | ~2020-06-16 | XMS | Encounter Summary ---
Demographics + + + | Address | [address] | | | [place] [address] | + + + | Home Phone | | + + + | Preferred Language | Unknown | + + + | Marital Status | | + + + | Gnosticist Affiliation [...] [place], | | | | | [place] [address] | | + + + + + Care Team Providers + +------+ + | Care Electrical Instrument Technician Name | Role | Phone | [...] Closed | | Radiology | Diagnoses | [place], | [facility] | | | | | Knee pain, | Marty Elise, | [address] | | | | | unspecified | [address] | [place], | | | | | laterality | [address] | [place] | | | | | Procedures | [place], | [address] | | | | | MRI Knee | [place] [address] | Phone: | | | | | Left wo | Phone: | [phone] | | | | | Contrast | [phone] | Fax: | | | | | | Fax: | [phone] | | | | | | [phone] | | +--------+--------+ + + + + Encounter Details +--------+ + + + + | Date | Type | Department | Care Team | Description | +--------+ + + + + | 07/07/ | Hospital | [facility] | Marty Wood | Knee pain, | | 2015 | Encounter | MED CTR MRI [address] | [place], [address] | unspecified | | | | [place], | [place], [place] | laterality | | | | [place] [address] | [address] | | | | | [phone] | | | +--------+ + + + [...] Imaging | Routin | Knee pain, | 1 Occurrences | | Contrast | | e | unspecified | starting 07/07/2015 | | | | | laterality | until 07/07/2015 | + +---------+--------+ + + documented as of this encounter Visit Diagnoses + + | Diagnosis | + + | Knee pain, unspecified laterality | + + documented in this encounter"
--- OUTSIDE RECORDS SUMMARY | ~2020-06-16 | XMS | Encounter Summary ---
Demographics + + + | Address | [address] | | | [place] [address] | + + + | Home Phone [...] [place], | | | | | [place] [address] | | + + + + + Care Team Providers + +------+ + | Care Line Erector Apprentice Name | Role | Phone | + +------+ + | Dimitri Fischer MD | PCP | | + +------+ + Reason for Visit + + + | Reason | Comments | + + + | Head Injury Without | | | Loc | | + + + | Shoulder Pain | | + + + Encounter Details +--------+ + + + + | Date | Type | Department | Care Team | Description | +--------+ + + + + | 03/16/ | Emergency | [facility] | Tra Corley, | Minor head injury, | | 2017 | | MED CTR EMERGENCY | [address] | initial encounter | | | | CENTER [address] | [facility] [place] | (Primary Dx); | | | | [place] | [place] [address] | Acromioclavicular | | | | [address] | [phone] | sprain, left, | | | | [phone] | | initial encounter | | | | | Lamont Pierre MD | | | | | | [address] | | | | | | [place] | | | | | | [address] | | | | | | | [...] + + | Pulse | 78 | 03/16/2018 5:21 AM | | | | | PDT | | + + + + + | Temperature | 37.2 C (99 F) | 03/16/2018 5:21 AM | | | | | PDT | | + + + + + | Respiratory Rate | 16 | 03/16/2018 5:21 AM | | | | | PDT | | + + + + + | Oxygen Saturation | 98% | 03/16/2018 5:21 AM | | | | | PDT | | + + + + + | Inhaled Oxygen | - | - | | | Concentration | | | | + + + + + | Weight | 88.5 kg (195 lb) | 03/16/2018 5:21 AM | | | | | PDT | | + + + + + | Height | 182.9 cm (6') | 03/16/2018 5:21 AM | | | | | PDT | | + + + + + | Body Mass Index | 26.45 | 03/16/2018 5:21 AM | | | | | PDT | | + + + + + documented in this encounter Discharge Instructions Instructions Lamont Pierre MD - 03/16/2018Isabella and serafin to help with shoulder injury Return for worsening symptoms, other new complaints documented in this encounter Medications at Time [...] 0 | 07/09/20 | | | SYR 62GO1-4/2 22G X | TESTOSTERONE TWICE A | | | 17 | 9 | | 1-09/23" 3 ML MISC | WEEK | | | | | + + + +---------+ + + | B-D 3CC LUER-ANDREAS | | | 0 | 11/18/19 | | | SYR 88RB7-5/2 23G X | | | | 18 [...] documented as of this encounter ED Notes Lamont Pierre MD - 03/16/2018 6:29 AM PDTI received this patient in signout from Dr. Randal mathew. Please see his notes for initial history, physical exam as well as ER course. I did fo llow-up on the patient's x-rays that are reassuring here. Patient may have a acromioclavicu lar strain. He is offered a sling but states he has one at home. He does not need pain med icine. He had a head CT given the event that occurred. This is negative as well. On reeva luation he is alert oriented appears well nontoxic with a normal mental status. We'll plan on discharge with expectant management. Lamont Pierre MD 03/16/18 0630 Tra Jacobson MD - 03/16/2018 5:41 AM PDT [facility] Cecilio Arias Emergency Department Encounter Note [address] [place] [address] PCP:Dimitri Fischer MD [phone] CHIEF COMPLAINT Chief Complaint Patient presents with Head Injury Without Loc Shoulder Pain HPI Cecilio Arias is a 47 y.o. male who presents to the emergency department w ith left shoulder pain and headache. This patient was standing on the porch. He fell off t he porch onto his left side landing on concrete about a foot and a half down. There was a l oss of consciousness. He hit the left temporal area of his head and injured his left should er. He has pain in his left shoulder and he has a headache. No nausea or vomiting. He is providing his own history. He has chronic pain and takes large doses of pain medication. H e took his oral medications and states it hasn't helped. He is accompanied by family but is providing his own history. PAST MEDICAL HISTORY Past Medical History: Diagnosis Date Adverse effect of anesthesia Slow to wake up Diabetes mellitus (HCC) Elevated cholesterol Emphysema of lung (HCC) GERD (gastroesophageal reflux disease) Immune deficiency disorder (HCC) Lab results placed in chart regarding [id number] Phenotype. Osteoporosis PONV (postoperative nausea and vomiting) Seizure (HCC) Testosterone deficiency Vitamin D deficiency SURGICAL HISTORY Past Surgical History: Procedure Laterality Date CARPAL TUNNEL RELEASE Left 05/14/2017 Procedure: Left Elbow Joint Exploration and Bilateral Shoulder Injection; Surgeon: Nirmal Wood MD; Location: [facility] MAIN OR ELBOW SURGERY Left 11/15/2015 Procedure: Left Lateral Epicondylar Release & Injection of Left Elbow Joint ; Surgeon: Janet Wood MD; Location: [facility] MAIN OR KNEE ARTHROSCOPY Right 12/05/2014 Procedure: Right Knee Arthroscopy with Partial Medial Menisectomy and Medial- Femoral Tay droplasty; Surgeon: Marty Wood MD; Location: [facility] MAIN OR KNEE ARTHROSCOPY Right 02/11/2018 Procedure: Right Knee Arthroscopy & bilateral Elbow Injections, Lateral Tibial Chondroplas ty, Medial Femoral Chondroplasty, Partial medial meniscectomy; Surgeon: Marty Wood MD; Location: [facility] MAIN OR MANDIBLE SURGERY spinal cord injury CURRENT MEDICATIONS Previous Medications AMPHETAMINE-DEXTROAMPHETAMINE (ADDERALL XR) 30 MG 24 HR CAPSULE take 1 capsule by mouth once daily AMPHETAMINE-DEXTROAMPHETAMINE (ADDERALL) 20 MG TABLET take 1 tablet by mouth every morn ing and 1/2 tablet at noon ASPIRIN 325 MG TABLET Take 1 tablet by mouth Daily. B-D 3CC LUER-ANDREAS SYR 13PX7-5/2 22G X 1-1/2" 3 ML MISC use to INJECT TESTOSTERONE TWICE A WEEK B-D 3CC LUER-ANDREAS SYR 97WL2-7/2 23G X 1-1/2" 3 ML MISC CHOLECALCIFEROL (VITAMIN D-3) 1,000 UNITS CAPSULE Take [...] tablet by mouth three times a day GLIPIZIDE [...] by mouth every 8 hours as needed. NARCAN 4 MG/0.1ML OMEPRAZOLE (PRILOSEC) 20 MG CAPSULE Take 20 mg by mouth every morning (before breakfast ). ONDANSETRON (ZOFRAN) 4 MG TABLET Take 4 mg by mouth every 8 hours as needed for Nausea. OXYCODONE (ROXICODONE) 30 MG IMMEDIATE RELEASE TABLET Take 1 tablet by mouth every 6 ho urs as needed for Pain. OXYCODONE-ACETAMINOPHEN (PERCOCET) 5-325 MG PER TABLET Take 1-2 tablets by mouth every 6 hours as needed for Pain. ROSUVASTATIN (CRESTOR) 40 MG TABLET SENNA LAX 8.6 MG TABLET take 4 tablets by mouth UP TO 2 TIMES A DAY NEEDED FOR CONST IPATION SIMVASTATIN (ZOCOR) 40 MG TABLET Take 20 mg by mouth nightly. TAMSULOSIN (FLOMAX) 0.4 MG CAPS Take 0.4 mg by mouth daily (after breakfast). TESTOSTERONE CYPIONATE (DEPO-TESTOSTERONE) 200 MG/ML INJECTION inject 0.4 milliliters t wo times a week VENTOLIN HFA 108 (90 BASE) MCG/ACT INHALER [...] the HPI PHYSICAL EXAM VITAL SIGNS: Pulse 78 | Temp 37.2 C (99 F) (Tympanic) | Resp 16 | Ht 1.829 m (6') | Wt 88.5 kg (195 lb) | SpO2 98% | BMI 26.45 kg/m Constitutional: Well developed, Well nourished, moderate acute distress, Non-toxic appeara nce. HENT: Normocephalic, abrasion with mild soft tissue swelling and tenderness in the left te mporal area, Bilateral external ears normal, Tympanic membranes normal, Mucous membranes are moist, Nasal mucosa is normal. No otorrhea, no rhinorrhea, no Garrido sign, no septal hemat elder, no hemotympanum. Eyes: PERRL, EOMI, Conjunctiva normal, No discharge. Palpebral conjunctiva are pink. No r accoon's eyes. Neck: Normal range of motion, No tenderness, Supple, No stridor. Respiratory: Clear to auscultation bilaterally, No respiratory distress, No wheezing Chest: Non tender, no signs of trauma Cardiovascular: Normal heart rate, Normal rhythm, No murmurs appreciated. GI: Soft, Non tenderness, No peritoneal signs, No masses Extremities: Warm and well perfused, no edema, no joint swelling or deformity. Limited ra nge of motion left shoulder secondary to pain. Soft tissue swelling and tenderness at the l eft AC joint. Back: No CVAT, No tenderness of the thoracic or lumbar spine. Skin: Warm, Dry, No erythema, No induration, No rash. Multiple abrasions on his extremiti es of various ages. Neurologic: Alert & oriented x 3, No focal motor or sensory deficits. Speech is clear. G ait is normal. Restless. RADIOLOGY Noncontrast head CT: Pending Bilateral AC joint x-rays: No acute radiographic pathology ED COURSE & MEDICAL DECISION MAKING Pertinent Labs & Imaging studies reviewed. (See chart for details) The patient was seen and examined shortly after arriving in the emergency department. Hist ory and physical were obtained, vital signs were noted. This patient fell off the porch hit ting his head and left shoulder. No obvious AC joint separation, but he is specifically ten boston at that spot. He is treated with a sling. Noncontrast head CT pending. Care to Dr. Linda vivas at change of shift. FINAL IMPRESSION 1. Minor head injury, initial encounter 2. Acromioclavicular sprain, left, initial encounter PLAN Care to Dr Pierre at change of shift. Tra Corley MD 03/16/18 0620 ingering, Will Elise RN - 03/16/2018 5:20 AM PDTPt. Had a fall and hit his head and shoulder from a fall down stairs earlier this morning. History of head injury. documented in this encounter Plan of Treatment + +------+--------+ + + | Name | Type | Priori | Associated Diagnoses | Date/Time | | | | ty | | | + +------+--------+ + + | ED INFORMATION | SHITAL | Routin | | 03/16/2018 5:15 AM | | EXCHANGE | | e | | PDT | + +------+--------+ + + documented as of this encounter Procedures + +--------+ + + + | Procedure Name | Priori | Date/Time | Associated Diagnosis | Comments | | | ty | | | | + +--------+ + + + | XR ACROMIOCLAVICULAR | Routin | 03/16/2018 | | Results for this | | JOINTS BILATERAL | e | 6:11 AM | | procedure are in the | | | | PDT | | results section. | + +--------+ + + + | CT HEAD WO CONTRAST | STAT | 03/16/2018 | | Results for this | | | | 6:10 AM | | procedure are in the | | | | PDT | | results section. | + +--------+ + + + | ED INFORMATION | Routin | 03/16/2018 | | | | EXCHANGE | e | 5:15 AM | | | | | | PDT | | | + +--------+ + + + +---+--------+ | | | | | Proced | | | ure | | | Note - | | | Gloria, | | | Lab In | | | | | | Hlseve | | | n - | | | 03/16/ | | | 2018 | | | 5:16 | | | AM PDT | | [...] | | | ON?/ | | | / | | | 8 | | | 05:13? | | | AVLONI | | | TIS, | | | DENIS | | | OPHER | | | S?MRN: | | | | | | [id number] | | | [id number] | | | his | | | [...] | | | ent/17 | | | [id number] | | | [id number] | | | [id number] | | | [id number] | | | [id number] | | | [id number] | | | [...] | | int | | | Kushal | | | [...] | | | inj | | | E.D. | | | [...] MED | | | | | | 2018-0 | | | [...] | | | 2018 | | | 5-03 | | | DEXTRO | | | AMP-AM | | | PHETAM | | | IN 20 | | | MG TAB | | | 60 | | | KAT | | | DENIS | | | ENSEN | | | 2 0 | | | 2018 | | | 4-13 | | | OXYCOD | | | ONE | | | HCL 30 | | | MG | | | TABLET | | | 180 | | | KAT | | | DENIS | | | ENSEN | | | 2 270 | | | | | | 413 | | | METHAD | | | ONE | | | HCL 10 | | | MG | | | TABLET | | | 480 | | | KAT | | | DENIS | | | ENSEN | | | 2 480 | | | 2018 | | | 4-04 | | | DEXTRO | | | AMP-AM | | | PHET | | | ER 30 | | | MG CAP | | | 30 | | | KAT | | | DENIS | | | ENSEN | | | 2 0 | | | | | | 404 | | | DEXTRO | | | AMP-AM | | | PHETAM | | | IN 20 | | | MG TAB | | | 45 | | | KAT | | | DENIS | | | ENSEN | | | 2 0 | | | 20180 | | | 3-01 | | | OXYCOD | | | ONE | | | HCL 30 | | | MG | | | TABLET | | | 180 | | | KAT | | | DENIS | | | ENSEN | | | 2 270 | | | 2018-0 | | | 2-27 | | | TESTOS | | | VAMSHI | | | CYP | | | 2,000 | | | MG/10 | | | ML 10 | | | KAT | | | DENIS | | | ENSEN | | | 3 0 | | | 2018-0 | | | 2-27 | | | DEXTRO | | | AMP-AM | | | PHETAM | | | IN 20 | | | MG TAB | | | 45 | | | KAT | | | DENIS | | | ENSEN | | | 2 0 | | | 2018-0 | | | 2-27 | | | DEXTRO | | | AMP-AM | | | PHET | | | ER 30 | | | MG CAP | | | 30 | | | KAT | | | DENIS | | | ENSEN | | | 2 0 | | | 2018-0 | | | 2-27 | | | METHAD | | | ONE | | | HCL 10 | | | MG | | | TABLET | | | 480 | | | KAT | | | DENIS | | | ENSEN | | | 2 480 | | | 2018-0 | | | 1-23 | | | OXYCOD | | | ONE | | | HCL 30 | | | MG | | | TABLET | | | 180 | | | KAT | | | DENIS | | | ENSEN | | | 2 270 | | | 2018-0 | | | 1-23 | | | DEXTRO | | | AMP-AM | | | PHETAM | | | IN 20 | | | MG TAB | | | 30 | | | KAT | | | DENIS | | | ENSEN | | | 2 0 | | | 2018-0 | | | 1-23 | | | DEXTRO | | | AMP-AM | | | PHET | | | ER 30 | | | MG CAP | | | 30 | | | KAT | | | DENIS | | | ENSEN | | | 2 0 | | | 2018-0 | | | 1-23 | | | METHAD | | | ONE | | | HCL 10 | | | MG | | | TABLET | | | 480 | | | KAT | | | DENIS | | | ENSEN | | | 2 480 | | | Rx | | | Summar | | | y (12 | | | Mo.)Me | | | tric | | | Count | | | CS | | | II-V | | | Rx 49 | | | CS-II | | | Rx 45 | | | Quanti | | | ty | | | Dispen | | | sed | | | 8,115 | | | Unique | | | | | | Prescr | | | ibers | | | 2 | | | Unique | | | | | | Pharma | | | cies 2 | | | | | | Benzos | | | 0 | | | Opioid | | | s 23 | | | Long | | | [...] | | | icalte | | | [employer] | | | | +---+--------+ documented in this encounter Results XR AC Joints Bilateral (03/16/2018 6:11 AM PDT) + + | Specimen | + + | | + + + + + | Narrative | Performed At | + + + | XR ACROMIOCLAVICULAR JOINTS BILATERAL 03/16/2018 5:47 AM HISTORY: | [facility] | | left shoulder pain after fall, tenderness at left AC joint with STS. | | | COMPARISON: None. FINDINGS: There are no acute osseous | | | findings. The AC joint demonstrates mild bilateral degenerative | | | change. The glenohumeral joint is intact. Bone mineralization is | | | normal. Visualized chest shows no acute findings. Soft tissue | | | structures are unremarkable. IMPRESSION - Mild bilateral | | | acromioclavicular joint degenerative change without convincing | | | evidence of acute osseous abnormality. Subtle irregularity along | | | the distal left acromion is nonspecific, occult fracture cannot be | | | entirely excluded. Repeat imaging in 10-14 days is offered to exclude | | | occult fracture if pain has not resolved. Dictated and Signed by: | | | Fabien Michelle MD Electronically signed: 03/16/2018 8:21 AM | | + + + + + | Procedure Note | + + | Gloria, Rad Results In - 03/16/2018 8:24 AM PDT XR ACROMIOCLAVICULAR JOINTS BILATERAL | | 03/16/2018 5:47 AMHISTORY: left shoulder pain after fall, tenderness at left AC joint | | with STS.COMPARISON: None.FINDINGS:There are no acute osseous findings. The AC joint | | demonstrates mild bilateraldegenerative change. The glenohumeral joint is intact. Bone | | mineralization isnormal. Visualized chest shows no acute findings. Soft tissue | | structures areunremarkable. IMPRESSION -Mild bilateral acromioclavicular joint | | degenerative change without convincingevidence of acute osseous abnormality.Subtle | | irregularity along the distal left acromion is nonspecific, occultfracture cannot be | | entirely excluded. Repeat imaging in 10-14 days is offered toexclude occult fracture if | | pain has not resolved.Dictated and Signed by: Fabien Michelle MD Electronically signed: | | 03/16/2018 8:21 AM | | | |IMPRESSION - | |Mild bilateral acromioclavicular joint degenerative change without convincing | |evidence of acute osseous abnormality. | | | |Subtle irregularity along the distal left acromion is nonspecific, occult | |fracture cannot be entirely excluded. Repeat imaging in 10-14 days is offered to | |exclude occult fracture if pain has not resolved. | | | |Dictated and Signed by: Fabien Michelle MD | | Electronically signed: 03/16/2018 8:21 AM | + + + +---------+ + + | Performing | Address | City/State/Zipcode | Phone Number | | Organization | | | | + +---------+ + + | [facility] | | | | + +---------+ + + CT Head wo Contrast (03/16/2018 6:10 AM PDT) + + | Specimen | + + | | + + + + + | Narrative | Performed At | + + + | CT HEAD WO CONTRAST 03/16/2018 5:47 AM HISTORY: HEAD INJURY | [facility] | | WITHOUT LOC SHOULDER PAIN. COMPARISON: None. PROTOCOL: Axial | | | images of the head were obtained along with coronal and sagittal | | | reformations. FINDINGS: The brain parenchyma demonstrates no | | | evidence for acute infarct, mass lesion, or hemorrhage. The brainstem | | | is unremarkable. The cerebellum is normal. The pituitary gland is | | | grossly normal. The ventricles, cisterns, and sulci are of normal | | | size and shape. Limited evaluation of the vasculature demonstrates | | | no acute findings. The orbits show no acute findings. Paranasal | | | sinuses are clear. Mastoid air cells are normal. Calvarium, | | | temporal bones, and skull base structures are unremarkable. | | | IMPRESSION - No acute intracranial findings. A preliminary report | | | was sent by [facility] with no significant discrepancy on | | | 03/16/2018 6:19:47 AM. Dictated and Signed by: Kyle Peoples MD | | | Electronically signed: 03/16/2018 8:28 AM | | + + + + + | Procedure Note | + + | Gloria, Rad Results In - 03/16/2018 8:[address] HEAD WO CONTRAST 03/16/2018 5:47 AM | | | | HISTORY: HEAD INJURY WITHOUT LOC | | SHOULDER PAIN. | | | | COMPARISON: None. | | | | PROTOCOL: Axial images of the head were obtained along with coronal and sagittal | | reformations. | | | | FINDINGS: | | The brain parenchyma demonstrates no evidence for acute infarct, mass lesion, or | | hemorrhage. The brainstem is unremarkable. The cerebellum is normal. The | | pituitary gland is grossly normal. | | | | The ventricles, cisterns, and sulci are of normal size and shape. | | | | Limited evaluation of the vasculature demonstrates no acute findings. | | | | The orbits show no acute findings. Paranasal sinuses are clear. Mastoid air | | cells are normal. | | | | Calvarium, temporal bones, and skull base structures are unremarkable. | | | | IMPRESSION - | | No acute intracranial findings. | | | | A preliminary report was sent by [facility] with no significant discrepancy | | on 03/16/2018 6:19:47 AM. | | | | Dictated and Signed by: Kyle Peoples MD | | Electronically signed: 03/16/2018 8:28 AM | + + + +---------+ + + | Performing | Address | City/State/Zipcode | Phone Number | | Organization | | | | + +---------+ + + | [facility] | | | | + +---------+ + + documented in this encounter Visit Diagnoses + + | Diagnosis | + + | Minor head injury, initial encounter - Primary | + + | Acromioclavicular jessica, left, initial encounter | + + documented in this encounter
--- OUTSIDE RECORDS SUMMARY | ~2020-06-16 | XMS | Encounter Summary ---
Demographics + + + | Address | [address] | | | [place] [address] | + + + | Home Phone [...] [place], | | | | | [place] [address] | | + + + + + [...] | code. | [place], [place] | [place] [address] | | | | | Advised | [id number] | Phone: | | | | | patient's | Phone: | [phone] | | | | | (on | [phone] | Fax: | | | | | 03/12) when | Fax: | [phone] | | | | | she called | [phone] | | | | | | to [...] Description | +--------+---------+ + + + | 03/14/ | Office | [facility] | Amadeo aSab | Left arm pain | | 2016 | Visit | [facility] | [address] | (Primary Dx); | | | | THERAPY [address] [place] | Decreased activities | | | | [place], | [place] [address] | of daily living | | | | [place] [address] | [phone] | (ADL); Lateral | | | | [phone] | | epicondylitis of | | | | | Dai Rico OT | left elbow | | | | | [address] | | | | | | [place], [place] | | | | | | [address] | | | | | | | [...] documented as of this encounter Progress Notes Dai Rico, OT - 03/14/2016 5:33 PM PDTFormatting of this note might be different fr om the original. [facility] THERAPY OT OP [address] [place] [address] Occupational Therapy Daily Treatment Note Date: 03/14/2016 Patient Information Patient Name: Cecilio Arias Date of : 1970 Age: 45 y.o. History Encounter Diagnoses Code Name Primary? M79.602 Left arm pain Yes Z78.9 Decreased activities of daily living (ADL) M77.12 Lateral epicondylitis of left elbow Date of Onset: 11/15/2015 Referring Provider: Amadeo Saab PA-C Rehab Precautions Office Visit from 03/12/2016 in [facility] OT OP Rehab Precautions Precautions Seizure, Poorly controlled/fluctuating blood sugar Rehab Learning Style Office Visit from 03/12/2016 in [facility] TH[facility] OT OP Office Visit from 02/03/2015 in [facility] PT [employer] Learning Style Patient's [employer] Learning Style performance of task listening, reading, performance of task, observation Today's Treatment Start Time: 1630 Stop time: 1715 Duration: 45 minutes Timed Treatment Codes: 45 minutes # of OT Visits: Subjective: It always hurts at an 8. I just want it to feel better. I have some blood th ing that doesn't let me absorb the narcotics that I take. About 50 to 75% just is sent out in my urine. Pain Assessment: Pain Rating Pre Assessment: 8 Objective Pt seen for trial of TENS in clinic. He states that he has used an OTC TENS previously and it didn't do a whole lot. Therapist wanted to determine whether a better TENS may reduce p ain better. Slight pain relief with 2 electrodes on upper shoulder and 2 applied at axilla and dorsum o f arm Pt seen for LLLT to lateral epicondyle in preparation for MFR. MFR helped the area feel be tter than the TENS. Pt provided with a lateral epicondyle brace and instructed in use. He was also provided with cylindrical tubing to wear over elbow for night or when he is jovita ting. Vibration to elbow that helped it to feel better. Pt encouraged to obtain vibration for ho me. Extended pressure over internal nodule in lateral elbow with decreased size of nodule post. Assessment Pt has pain relief with pressure and stimulation. Plan LLLT and MFR to area, monitor responce to brace, decrease pain. Electronically signed by: Dai Rico OT, 03/14/2016 17:33 Patient Name: Cecilio Arias/: 1970/ documented in this e ncounter Plan of Treatment Not on filedocumented as [...]
--- OUTSIDE RECORDS SUMMARY | ~2020-06-16 | XMS | Encounter Summary ---
Demographics + + + | Address | [address] | | | [place] [address] | + + + | Home Phone | | + + + | Preferred Language | Unknown | + + + | Marital Status | | + + + | Episcopal Affiliation | Unknown | + + + | Race | White | + + + | Ethnic Group | Not or | + + + Author + + + | Author | [facility] | | | and [place] | + + + | Organization | [facility] | | | [...] [place], | | | | | [place] [address] | | + + + + + Care Team Providers + +------+ + | Care Authorization Specialist Name | Role | Phone | + +------+ + PCP | Unavailable | + +------+ + Encounter Details +--------+ + + + + | Date | Type | Department | Care Team | Description | +--------+ + + + + | 10/31/ | Documentati | [facility] | Young Malvin M, PT | | | 2015 | on | MED CTR THERAPY PT | [address] | | | | | OP [address] | [place], [place] | | | | | [place], [place] | [address] | | | | | [address] | | | | | | [phone] | | | +--------+ + + + [...] documented as of this encounter Progress Notes Malvin Vidal, PT - 10/31/2014 4:37 [facility] [address] [place] [address] Cancellation/No Show Date: 10/31/2014 Patient Information Patient Name: Cecilio Arias Date of : 1970 Age: 44 y.o. Reason for missed visit: Patient called to cancel due to too much pain. Phone call placed: no Plan: Reschedule Electronically signed by: Malvin Vidal PT, 10/31/2014 16:37 Patient Name: Cecilio Zimmerman [place]/: 1970/ documented in this enc ounter Plan of Treatment Not on filedocumented as of this encounter Visit Diagnoses Not on filedocumented in this encounter"
--- OUTSIDE RECORDS SUMMARY | ~2020-06-16 | XMS | Encounter Summary ---
Demographics + + + | Address | [address] | | | [place] [address] | + + + | Home Phone [...] [place], | | | | | [place] [address] | | + + + + + Care Team Providers + +------+ + | Care Account Manager Relief Name | Role | Phone | + [...] pain | Will D, | [address] | | | | | Arm weakness | MD [address] | [place], | | | | | Procedures | [address] | [place] | | | | | MRI | [place], | [address] | | | | | Cervical | [place] [address] | Phone: | | | | | Spine w wo | Phone: | [phone] | | | | | Contrast | [phone] | Fax: | | | | | | Fax: | [phone] | | | | | | [phone] | | +--------+--------+ + + + + [...] | | | Neck pain | Will Jurado, | [address] | | | | | Arm weakness | [address] | [place], | | | | | Procedures | [address] | [place] | | | | | MRI | [place], | [address] | | | | | Cervical | [place] [address] | Phone: | | | | | Spine w wo | Phone: | [phone] | | | | | Contrast | [phone] | Fax: | | | | | | Fax: | [phone] | | | | | | [phone] | | +--------+--------+ + + + + Encounter Details +--------+ + + + + | Date | Type | Department | Care Team | Description | +--------+ + + + + | 07/07/ | Hospital | [facility] | Will Capellan, | Neck pain; | | 2015 | Encounter | MED CTR MRI [address] | [address] | Arm weakness | | | | [address] [place], | [place], [place] | | | | | [place] [address] | [address] | | | | | [phone] | | | +--------+ + + + [...] | Routin | Neck pain Arm | 1 Occurrences | | wo Contrast | | e | weakness | starting 07/07/2015 | | | | | | until 07/07/2015 | + +---------+--------+ + + documented as of this encounter Visit Diagnoses + + | Diagnosis | + + | Neck pain Cervicalgia | + + | Arm weakness Other musculoskeletal symptoms referable to limbs | + + documented in this encounter"
--- OUTSIDE RECORDS SUMMARY | ~2020-06-16 | XMS | Encounter Summary ---
Demographics + + + | Address | [address] [facility] [facility] | | | [place] [address] | + + + | Home Phone [...] [place], | | | | | [place] [address] | | + + + + + Care Team Providers + +------+ + | Care Casting Inspector Name | Role | Phone | [...] Osteomyeliti | MD [address] | | | | | s, | [address] | [place], | | | | | Rocephin,IV, | [place], | [place] [address] | | | | | or IM 2G | [place] | Phone: | | | | | daily [phone] | [address] | [phone] | | | | | days | Phone: | Fax: | | | | | Procedures | [phone] | [phone] | | | | | [place] | Fax: | | | | | | CEFTRIAXONE | [phone] | | | | | | SODIUM [...] + + | 11/30/ | Hospital | [facility] | Omega Cortes, | Chronic | | 2019 | Encounter | MED CTR OP INFUSION | MD [address] | osteomyelitis of toe | | | | [address] | [place] | of right foot (HCC) | | | | [place], [place] | [address] | | | | | [address] | [phone] | | | | | [phone] | | | +--------+ + + + [...] + + + | Blood Pressure | 124/53 | 11/30/2018 11:39 AM | | | | | PDT | | + + + + + | Pulse | 130 | 11/30/2018 11:39 AM | | | | | PDT | | + + + + + | Temperature | 36.5 C (97.7 F) | 11/30/2018 10:43 AM | | | | | PDT | | + + + + + | Respiratory Rate | 16 | 11/30/2018 11:39 AM | | | | | PDT | | + + + + + | Oxygen Saturation | 97% | 11/30/2018 11:39 AM | | | | | PDT [...] encounter Progress Notes Henrietta Funk RN - 11/30/2018 11:39 AM PDTFormatting of this note might be diffe rent from the original. Vitals: 11/30/18 1043 11/30/18 1139 BP: 119/66 124/53 Pulse: 123 130 Resp: 18 16 Temp: 36.5 C (97.7 F) TempSrc: Oral SpO2: 97% 97% Administrations This Visit cefTRIAXone (ROCEPHIN) 2 g in sodium chloride 0.9% 50 mL IVPB Admin Date 11/30/2018 Action New Bag Dose 2 g Rate 100 mL/hr Route Intravenous Administered By Henrietta Funk RN Monitored throughout treatment; treatment completed without untoward effects from medicatio n noted. Next visit tomorrow. Verbalizes understanding of plan of care. VS stable. Discharge d ambulatory to home in stable condition. Electronically signed by: Henrietta Funk RN 11/30/2018 11:39 eccio, Estefania Elise RN - 11/30/2018 10:30 AM PDT Vitals: 11/30/18 1043 BP: 119/66 Pulse: 123 Resp: 18 Temp: 36.5 C (97.7 F) Cecilio Arias received into room 443 independent ambulation accompanied by . States here for Rocephin infusion. Reports no change in condition, plan of care since last M D visit. Alert, oriented x 4, cooperative. Electronically signed by: Estefania Feliz RN 11/30/2018 11:28 documented in this enc ounter Miscellaneous Notes Addendum Note - Henrietta Funk RN - 11/30/2018 11:42 AM PDTEncounter addended by: Henrietta Funk RN on: 11/30/2018 11:42
Actions taken: Check Out activity com pleted document ed in this encounter Plan of Treatment Not [...] 2 g in | New Bag | 12/01/19 | 2 g | 100 | | | sodium chloride 0.9% 50 mL IVPB | | 19 11:08 | | mL/hr | | | 2 g, Intravenous, Administer over | | AM PDT | | | | | 30 Minutes, ONCE, 11/30/18 at | | | | | | | 1100, For 1 dose, Keep in | | [...]
--- OUTSIDE RECORDS SUMMARY | ~2020-06-16 | XMS | Encounter Summary ---
Demographics + + + | Address | [address] [facility] [facility] | | | [place] [address] | + + + | Home Phone | | + + + | Preferred Language | Unknown | + + + | Marital Status | | + + + | Spiritism Affiliation | Unknown | + + + | Race | White | + + + | Ethnic Group | Not or | + + + Author + + + | Author | [facility] | | | and [place] | + + + | Organization | [facility] | | | [...] [place], | | | | | [place] [address] | | + + + + + Care Team Providers + +------+ + | Care Piling Setter Name | Role | Phone | + +------+ + PCP | Unavailable | + +------+ + Reason for Visit + +--------+ + | Reason | Onset | Comments | | | Date | | + +--------+ + | Appointment | 11/26/ | | | | 2015 | | + +--------+ + Encounter Details +--------+ + + + + | Date | Type | Department | Care Team | Description | +--------+ + + + + | 11/26/ | Telephone | [facility] | Marty Wood | Appointment | | 2015 | | ORTHOPEDIC SURGERY | MD [address] [facility] | | | | | [address] | [place] | | | | | [place] | [address] | | | | | [address] | | | | | | [phone] | | | +--------+ + + + [...] Notes Telephone Encounter - Ree Do - 12/06/2015 9:21 AM PDTLeft message for patient to call office. elephone Encounter - Ree Do - 12/04/2015 11:35 AM PDTLeft message for patient to call office.Wilfredo lymany signed by Ree Do at 12/04/2015 11:36 AM PDTTelephone Encounter - Ree Do - 11/28/2015 11:42 AM PSTLeft message for patient to call office.Electronically si gned by Ree Do at 11/28/2015 11:42 AM PSTTelephone Encounter - Ree Do - 11/27/2015 2:23 PM PST----- Message from Celeste Noriega, Protection Analyst sent at 11/24/2015 11:[address] ----- Regarding: follow up appointment Please call patient to schedule a follow up appointment In [address] Wood per Bonnie Cervantes. Thank you documented i n this encounter Plan of Treatment Not on filedocumented as of this encounter Visit Diagnoses Not on filedocumented in this encounter"
--- OUTSIDE RECORDS SUMMARY | ~2020-06-16 | XMS | Encounter Summary ---
Demographics + + + | Address | [address] [facility] [address] | | | [place] [address] | + + + | Home Phone [...] [place], | | | | | [place] [address] | | + + + + + Care Team Providers + +------+ + | Care Front End Driver Name | Role | Phone | + +------+ + PCP | Unavailable | + +------+ + Reason for Visit + + + | Reason | Comments | + + + | Medication Refill | | + + + Encounter Details +--------+--------+ + + + | Date | Type | Department | Care Team | Description | +--------+--------+ + + + | 07/28/ | Refill | [facility] | Will Capellan, | Medication Refill | | 2014 | | [facility] [place] | [address] | | | | | [address] | [place] | | | | | [place] | [address] | | | | | [address] | | | | | | [phone] | | | +--------+--------+ + + + [...]
--- OUTSIDE RECORDS SUMMARY | ~2020-06-16 | XMS | Encounter Summary ---
Demographics + + + | Address | [address] | | | [place] [address] | + + + | Home Phone | | + + + | Preferred Language | Unknown | + + + | Marital Status | | + + + | Religion Affiliation | Unknown | + + + | Race | White | + + + | Ethnic Group | Not or | + + + Author + + + | Author | [facility] | | | and [place] | + + + | Organization | [facility] | | | and [place] | + [...] [place], | | | | | [place] [address] | | + + + + + Care Team Providers + +------+ + | Care Fibrous Plasterer Name | Role | Phone | + +------+ + | Russell Sanabria MD | PCP | | + +------+ + Reason for Visit +---------+ + | Reason | Comments | +---------+ + | Post Op | Right great tow superfificial bone biopsy. DOS 11/07/2018 | +---------+ + Encounter Details +--------+---------+ + + + | Date | Type | Department | Care Team | Description | +--------+---------+ + + + | 01/28/ | Office | [facility] | Jose Nash | Chronic | | 2018 | Visit | ORTHOPEDIC SURGERY | MD [address] | osteomyelitis of toe | | | | [address] | [place] | of right foot (HCC) | | | | [place] | [place] [address] | (Primary Dx) | | | | [address] | [phone] | | | | | [phone] | | | +--------+---------+ + + + [...] Weight | 104.8 kg (231 lb) | 01/28/2019 3:57 PM | | | | | PDT | | + + + + + | Height | 182.9 cm (6') | 01/28/2019 3:57 PM | | | | | PDT | | + + + + + | Body Mass Index | 31.33 | 01/28/2019 3:57 PM | | | | | PDT [...] Instructions Patient Instructions Jose Nash MD - 01/28/2019 3:45 PM PDT Your Diabetes Foot Care Program Every day you depend on your feet to keep you moving. But when you have diabetes, your feet need special care. Even a small foot problem can become very serious. So don t take your feet for granted. By working with your diabetes healthcare team, you can learn how to protec t your feet and keep them healthy. Evaluating your feet An evaluation helps your healthcare provider check the condition of your feet. The evaluati on includes a review of your diabetes history and overall health. It may also include a foot exam, X-rays, or other tests. These can help show problems beneath the skin that you can t see or feel. Medical history You will be asked about your overall health and any history of foot problems. You ll also discuss your diabetes history, such as whether your blood sugar level has changed over time . It also includes questions about sensations of pain, tingling, pins and needles, or numbne ss. Your healthcare provider will also want to know if you have high blood pressure and hear t disease, or if you smoke.Be sure to mention any medicines (including [id number]), supplements, or herbal remedies you take. Foot exam A foot exam checks the condition of different parts of your foot. First, your skin and nail s are examined for any signs of infection. Blood flow is checked by feeling for the pulses i n each foot. You may also have tests to study the nerves in the foot. These include using a small filament (wire) to see how sensitive your feet are. In certain cases, you will be aske d to walk a short distance to check for bone, joint, and muscle problems. Diagnostic tests If needed, your healthcare provider will suggest certain tests to learn more about your fee t. These include: Doppler teststo measure blood flow in the feet and lower leg. X-rays,which can show bone or joint problems. Other imaging tests,such as an MRI (magnetic resonance imaging), bone scan, and CT (co mputed tomography) scan. These can help show bone infections. Other tests,such as vascular tests, which study the blood flow in your feet and legs. You may also have nerve studies to learn how sensitive your feet are. Creating a foot care program Based on the evaluation, your healthcare provider will create a foot care program for you. Your program may be as simple as starting a daily self-care routine and changing the types o f shoes your wear. It may also involve treating minor foot problems, such as a corn or blist er. In some cases, surgery will be needed to treat an infection or mechanical problems, such as hammer toes. Preventing problems When you have diabetes, it s easier to prevent problems than to treat them later on. So s ee your healthcare team for regular checkups and foot care. Your healthcare team can also he lp you learn more about caring for your feet at home. For example, you may be told to avoid walking barefoot. Or you may be told that special footwear is needed to protect your feet. Have regular checkups Foot problems can develop quickly. So be sure to follow your healthcare team s schedule f or regular checkups. During office visits, take off your shoes and socks as soon as you get in the exam room. Ask your healthcare provider to examine your feet for problems. This will make it easier to find and treat small skin irritations before they get worse. Regular check ups can also help keep track of the blood flow and feeling in your feet. If you have neuropa thy (lack of feeling in your feet), you will need to have checkups more often. Learn about self-care The more you know about diabetes and your feet, the easier it will be to prevent problems. Members of your healthcare team can teach you how to inspect your feet and teach you to look for warning signs. They can also give you other foot care tips. During office visits, be roberts re to ask any questions you have. Date Last Reviewed: 03/22/201619998504-2075 [employer]. [address] [place] [address], [place] [address]. All righ ts reserved. This information is not intended as a substitute for professional medical care. Always follow your healthcare professional's instructions. documented in this encounter Progress Notes Jose Nash MD - 01/28/2019 3:45 PM PDTFormatting of this note might be dif ferent from the original. [facility] RETURN CLINIC VISIT Pt. Name/Age/: Cecilio Arias 48 y.o. 1970 Primary Care Physician: Russell Sanabria Chief Complaint/Reason for Visit: Post Op (Right great tow superfificial bone biopsy. DOS 11/07/2018) History of Present Illness: The patient is a pleasant 48 y.o. male who presents for a repeat visit for right great toe osteomyelitis. The patient missed his last visit. He reports that this was because he had a seizure and needed to reschedule. To summarize my care for this patient, I became involved when he was admitted to the [facility] for osteomyelitis of the right great toe with cellulitis. I discussed treatment options with him. I recommended amputation but he was unwilling to do so at that time. I did not t hink it was unreasonable to try to get a biopsy and to put him on appropriate antibiotics at that point. However, he ended up leaving the hospital against medical advice. The patient feels like he and his are being standard. He reports that they were accused of taking something out of the sharps container. Ultimately, he was kept on oral antibiotics for a p eriod of time. He was seen at [facility] as well. The patient reports that they recommended a re-biopsy and attempted to do antibiotics but he left that facility as well. Saw the patient back in clinic after that. I did discuss with him that IV antibiotics were will give him the best chance of clearing the infection from bone but I was pessimistic chapito t it would work. He was ultimately admitted to the hospital on the hospitalist service. He was started on IV antibiotics. The PICC team here at [place] was very uncomfortable wit h placing a PICC line back and the patient based on his first PICC line and the sharp contai ner experience. Is obtaining daily IV infusions. This was very onerous for him. He tried to convince me to give a PICC line stating that they picked him up but when and if I ordered it. When we called the PICU team, they confirmed that they would put went in but they did not recommend it and were not very comfortable with it. For that reason I did not do it. The patient ultimately did not finish out that third course of IV antibiotics. He did fini sh out the oral antibiotics. He presents to my clinic today complaining of increased pain a nd swelling in the lower extremity. He complains of blistering along the leg. There is macarena e redness there again. He is wanting to have another biopsy and restart antibiotics and get a PICC line. Past Medical History: Past Medical History: Diagnosis Date Adverse effect of anesthesia Slow to wake up Diabetes mellitus ([facility]) Diabetes mellitus type II, ORAL Control 10/28/2011 Elevated cholesterol Elevated hemoglobin A1c 11/07/2018 12.9 - 07/2018 12.3 - 11/2016 Emphysema of lung ([facility]) GERD (gastroesophageal reflux disease) Immune deficiency disorder ([facility]) Lab results placed in chart regarding [id number] Phenotype. Osteoporosis PONV (postoperative nausea and vomiting) Seizure ([facility]) Testosterone deficiency Vitamin D deficiency Past Surgical History: Procedure Laterality Date CARPAL TUNNEL RELEASE Left 05/14/2017 Procedure: Left Elbow Joint Exploration and Bilateral Shoulder Injection; Surgeon: Nirmal Wood MD; Location: [facility] MAIN OR ELBOW SURGERY Left 11/15/2015 Procedure: Left Lateral Epicondylar Release & Injection of Left Elbow Joint ; Surgeon: Janet Wood MD; Location: [facility] MAIN OR INCISION AND DRAINAGE Right 11/07/2018 Procedure: right great toe superfical bone biopsy; Surgeon: Jose Nash MD; Location: [facility] MAIN OR KNEE ARTHROSCOPY Right 12/05/2014 Procedure: Right Knee Arthroscopy with Partial Medial Menisectomy and Medial- Femoral Tay droplasty; Surgeon: Marty Wood MD; Location: [facility] MAIN OR KNEE ARTHROSCOPY Right 02/11/2018 Procedure: Right Knee Arthroscopy & bilateral Elbow Injections, Lateral Tibial Chondroplas ty, Medial Femoral Chondroplasty, Partial medial meniscectomy; Surgeon: Marty Wood MD; Location: [facility] MAIN OR MANDIBLE SURGERY spinal cord injury Allergies: Allergies Allergen Reactions Azithromycin Anaphylaxis Codeine Hives Hydrocodone Hives Sulfa Antibiotics Hives Current Medications: Current Outpatient Medications Medication Sig Dispense Refill amphetamine-dextroamphetamine (ADDERALL XR) 30 MG 24 hr capsule take 1 capsule by mouth once daily 0 atorvaSTATin (LIPITOR) 40 mg tablet Take 40 mg by mouth Daily. Blood Glucose Monitoring Suppl ([employer] CONTOUR MONITOR) w/Device KIT 1 kit by Does not a pply route as needed. 1 kit 0 cyclobenzaprine (FLEXERIL) 10 mg tablet 1 [...] Use as dir 100 each 0 insulin lispro (HUMALOG KWIKPEN) 100 units/mL [...] pertinent family history. Social History: Social History Socioeconomic History Marital status: Single Spouse name: Not on file Number of children: Not on file Years of education: Not on file Highest education level: Not on file Social Needs Financial resource strain: Not on file Food insecurity - worry: Not on file Food insecurity - inability: Not on file Transportation needs - medical: Not on file Transportation needs - non-medical: Not on file Occupational History Not on file Tobacco Use Smoking status: Current Every Day Smoker Packs/day: 0.50 Years: 20.00 Pack years: 10.00 Types: Cigarettes, E-Cigarettes Smokeless tobacco: Never Used Substance and Sexual Activity Alcohol use: No Drug use: Yes Frequency: 7.0 times per week Types: Marijuana, Methamphetamines Sexual activity: Not on file Other Topics Concern Not on file Social History Narrative Not on file Review of Systems All of [...] at a regular rate Ortho Exam Right lower extremity: Patient has swelling over the lower extremity. There are some areas with a small amount of blistering. There is some redness. Frankly, his calf looks better than it did the last ti me I saw him. Diagnostic Studies: Imaging No new imaging Labs- [...] a repeat visit with right great toe osteomyelitis involving at least the distal phalanx and cellulitis. Treatment options were discussed with the patient including non-operative treatment modalities. Considering the vineet ure of the patient's condition, the decision was made to proceed with recommending amputatio n of the distal phalanx and potentially more bone. I would need an MRI to evaluate the rest of the foot. I had a long conversation with the patient and his . This took at least h long-term an hour. We discussed many times the reasons why I thought repeat biopsy antibiotics wo uld be unlikely to succeed. We discussed how I thought that the best chance of keeping his foot and to get rid of the infection would be to proceed with amputation of the infected por tions of the great toe. The patient did not want to do this. He feels maligned by the medical record. He feels like the things that have been set about him and his have tainted other people's perspective of him and will make it very diffi cult for him to get somebody to follow through on that type of plan of care. I understand h is concerns. However my concern is that this will not clear if we continue to down the same course we have now tried multiple times. He continues to have recurrent cellulitis. His o steomyelitis is still present. I think the odds of clearing this infection without amputati on were never good and are certainly not very high at all at this point. Ultimately, he did not want to have his toe amputated. I am not willing to write for a PICC line. Based on t he medical record I have access to, this seems to be potentially dangerous decision for the patient safety. Additionally, I do not think it will work. I told him that essentially the only treatment option I had left for him was amputation. At this point, I will see him calli k as needed. Of note, the patient's continued to use her cell phone during the visit. At one point, I asked her if she was recording our conversation. She denied it. Follow-up: Return if symptoms worsen or fail to improve. with no x-ray Portions of this report were transcribed using voice recognition software. Every effort wa s made to ensure accuracy; however, inadvertent computerized director agency & strategic partnerships errors may be pre sent. I appreciate [...]
--- OUTSIDE RECORDS SUMMARY | ~2020-06-16 | XMS | Encounter Summary ---
Demographics + + + | Address | [address] [facility] | | | [place] [address] | + + + | Home Phone [...] [place], | | | | | [place] [address] | | + + + + + Care Team Providers + +------+ + | Care Sr. Payroll Manager Name | Role | Phone | [...] knee | Marty Elise, | [address] | | | | | pain, | [address] | [place], | | | | | unspecified | [address] | [place] | | | | | chronicity | [place], | [address] | | | | | Procedures | [place] [address] | Phone: | | | | | MRI Knee | Phone: | [phone] | | | | | Right wo | [phone] | Fax: | | | | | Contrast | Fax: | [phone] | | | | | | [phone] | | +--------+--------+ + + + + Encounter Details +--------+ + + + + | Date | Type | Department | Care Team | Description | +--------+ + + + + | 07/23/ | Orders Only | [facility] [place] | Marty Wood | Right knee pain, | | 2017 | | ORTHOPEDIC SURGERY | MD [address] | unspecified | | | | [address] | [place] | chronicity (Primary | | | | [place] | [address] | Dx) | | | | [address] | | | | | | [phone] | | | +--------+ + + + [...] on filedocumented as of this encounter Results MRI Knee Right wo [...] JOINT EFFUSION. Dictated and Signed by: Sabino Luis | Janelle Coronado MD Electronically signed: 08/08/2017 10:24 AM | | + + + + + | Procedure Note | + + | Kiko, Rad Results In - 08/08/2017 10:27 AM PST [...]
--- OUTSIDE RECORDS SUMMARY | ~2020-06-16 | XMS | Encounter Summary ---
Demographics + + + | Address | [address] | | | [place] [address] | + + + | Home Phone [...] [place], | | | | | [place] [address] | | + + + + + Care Team Providers + +------+ + | Care Bead Builder Name | Role | Phone | + [...] | | | | | | TX TENOTOMY | | | | | | | ELBOW | | | | | | | LATERAL/MEDI | | | | | | | AL | | | | | | | PERCUTANEOUS | | | | | | | TX | | | | | | | ARTHROTOMY/C | | | | | | | APULE | | | | | | | RELEASE | | | | | | | ELBOW JT TX | | | | | | | EXCIS/CURET | | | | | | | BENIGN | | | | | | | ELBOW LESN | | | | | | | TX TENOTOMY | | | | | | | ELBOW | | | | | | | LATERAL/MEDI | | | | | | | AL DEBRIDE | | | | | | | OPEN TX | | | | | | [...] + + + + | 11/15/ | Hospital | [facility] | Maryt Wood | Lateral | | 2016 | Encounter | [facility] | MD [place] [address] [facility] | epicondylitis of | | | | [address] | [place] | left elbow (Primary | | | | [place] | [id number] | Dx); Lateral | | | | [address] | | epicondylitis | | | | [phone] | | (tennis elbow), | | | | | | left; Primary | | | | | | [...] + + + | Blood Pressure | 158/75 | 11/15/2015 12:40 PM | | | | | PST | | + + + + + | Pulse | 80 | 11/15/2015 12:40 PM | | | | | PST | | + + + + + | Temperature | 36.8 C (98.2 F) | 11/15/2015 10:44 AM | | | | | PST | | + + + + + | Respiratory Rate | 14 | 11/15/2015 12:40 PM | | | | | PST | | + + + + + | Oxygen Saturation | 94% | 11/15/2015 12:40 PM | | | | | PST [...] encounter Discharge Instructions Amadeo Hooks PA-C - 11/15/2015Please keep appointment in Dr Wood' s office as already scheduled. Remain in [...] PM PSTAttempted to medicate Pt. With ordered Roland codone. Pt. States he is allergic. Hydrocodone was not on original allergy list. Pt. Refu sed hydrocodone. Pt. Wanted Dr. oWod to prescribe a different pain med for home. Dr. Wood agreed, but is in OR for the next hour. Pt. States he will go home and come back for the prescription. P STdocumented in this encounter H&P Notes Amadeo Saab PA-C - 11/15/2015 7:36 AM PSTSURGICAL INTERIM HISTORY & PHYSICAL UPDA TE Pt. Name/Age/: Loy Zimmerman Juana 45 y.o. 1970 Date of admission: 11/15/2015 [...] signed by: Amadeo Saab PA-C, 11/15/2015 7:36 [facility] [address], MD - 11/09/2015 [...] (HCC) Lab results placed in chart regarding [id number] Phenotype. Past Surgical History Procedure Laterality Date Knee arthroscopy Right 12/05/2014 Procedure: Right Knee Arthroscopy with Partial Medial Menisectomy and Medial- Femoral Cho ndroplasty; Surgeon: Marty Wood MD; Location: [facility] MAIN OR Allergies Allergen Reactions Azithromycin Anaphylaxis [...] for interscalene block. p Note - Marty Wood MD - 11/15/2015 10:55 AM PST [address] [address] OPERATIVE REPORT MARTY WOOD MD Patient: LOY GARCIA Admitting: MARTY WOOD MR #: [id number] LOC: PT TYPE: Adm Date: 11/15/2015 : 1970 DATE OF SURGERY AND DATE OF DICTATION: 11/15/2015. OPERATING SURGEON: Marty Wood MD INTERNAL CONTROL SPECIALIST: Amadeo Saab PA-C ANESTHESIOLOGIST: Deonte Kumar MD [...] splint. HISTORY AND REASON FOR SURGERY: Loy Garcia is a 45-year-old male with a variet [...] this time, the middle column of the [facility] safety checklist was carried out by the [...] WOOD MD Dictated by MARTY WOOD MD 11/15/2015 10:55:00 Transcribed on 11/15/2015 11:52:29 by [facility] job# [id number] Confirmation #: [id number] cc: ROMINA SANTOS MD p Note - Marty Wood MD - 11/15/2015 10:54 AM PSTOp note dictation # [id number]. documented in this encounter Plan of [...] | | | som | | | javier | | | barbie | | | Olaf | | | d | | | [...] [facility]. | [address] | [place] | [phone] | | [facility] | | [address] | | | - LABORATORY | | | | + + + + + documented in this encounter Visit Diagnoses + + | Diagnosis | + + | Lateral epicondylitis of left elbow - Primary Lateral epicondylitis of elbow | + + | Lateral epicondylitis (tennis elbow), left | + + | Primary osteoarthritis of left elbow Primary localized osteoarthrosis, upper arm | + + | Obesity (BMI 30.0-34.9) Obesity, unspecified | + + | Immune deficiency disorder (HCC) Unspecified immunity deficiency | + + | Seizure (HCC) Other convulsions | + + documented in this encounter [...] PST | | | | | Starting 11/15/15 at 0803, | | | | | [...] | | | | PRN, Nausea, Starting 11/15/15 | | AM PST | | | | | at 1043, For 1 dose, | | | | | | | Recovery/Phase I | | | | | | + +-------+ +------+---+---+ +---+---+ | | | +---+---+ documented in this encounter
--- OUTSIDE RECORDS SUMMARY | ~2020-06-16 | XMS | Encounter Summary ---
Demographics + + + | Address | [address] | | | [place] [address] | + + + | Home Phone | | + + + | Preferred Language | Unknown | + + + | Marital Status | | + + + | Holiness Affiliation | Unknown | + + + | Race | White | + + + | Ethnic Group | Not or | + + + Author + + + | Author | [facility] | | | and [place] | + + + | Organization | [facility] | | [...] [place], | | | | | [place] [address] | | + + + + + Care Team Providers + +------+ + | Care Film Processing Utility Worker Name | Role | Phone | + +------+ + | Russell Sanabria MD | PCP | | + +------+ + Encounter Details +--------+ + + + + | Date | Type | Department | Care Team | Description | +--------+ + + + + | 11/18/ | Orders Only | [facility] | Pipe Grace W, | | | 2018 | | MED CTR OP INFUSION | PharmD [address] | | | | | [address] | [address] [place], [place] | | | | | [place], [place] | [address] | | | | | [address] | | | | | | [phone] | | | +--------+ + + + [...] documented as of this encounter Progress Notes Pipe Grace, Loyd - 11/18/2018 11:19 AM PSTIn December 2018 the Electronic Medical Record (EMR) system used by [facility] will be updated. The category used to file the infusion therapy plan currently ordered for this patient is to be discontinued. The changes to the order category within the EMR are administrative and in no way affect t he care of the patient. This encounter was created in the EMR to review the current orders for this patient and sachi cox the necessary changes to insure continuity of care. Please contact the [facility] at with any questions regarding these peterson es. documented in this encounter Plan of Treatment Not on filedocumented as of this encounter Visit Diagnoses Not on filedocumented in this encounter"
[~2020-06-16 21:10] MED LIST changes: +CYCLOBENZAPRINE10 MG PO; +DOXYCYCLINE HY100 MG PO; +FLOMAX0.4 MG PO; +FUROSEMIDE20 MG PO; +GLUCOPHAGE500 MG PO; +LIPITOR40 MG PO; +LISINOPRIL10 MG PO; +OMEPRAZOLE20 MG PO; +ONDANSETRON ODT8 MG PO; +VITAMIN D21250 MCG PO
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
[2020-06-16] MEDS ORDERED: BASAGLAR K100 UNIT/1 SUB-Q (21:28)
== END 2020-06-17 01:00 | disposition home or self-care (01) ==
LOC: ED 21:10
DX: E11.65 Type 2 diabetes mellitus with hyperglycemia (principal); F15.10 Other stimulant abuse, uncomplicated; F41.9 Anxiety disorder, unspecified; F17.200 Nicotine dependence, unspecified, uncomplicated; Z88.2 Allergy status to sulfonamides; Z88.5 Allergy status to narcotic agent; Z79.4 Long term (current) use of insulin; Z79.84 Long term (current) use of oral hypoglycemic drugs; Z79.899 Other long term (current) drug therapy
CPT/HCPCS: 80053; 80176; 81001; 82010; 82800; 84443; 85025; 96361; 96374; 99284-25; G0480; J1815; J7030

== ENCOUNTER 2020-07-21 15:27 | Emergency (ER) | payer OTHER ==
[~2020-07-21] VITALS: Ht 182.9 cm; Wt 104.3 kg
[~2020-07-21 15:27] MED LIST changes: +BASAGLAR K100 UNIT/1 SUB-Q
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
== END 2020-07-21 19:11 | disposition home or self-care (01) ==
LOC: ED 15:27
DX: S40.012A Contusion of left shoulder, initial encounter (principal); S30.1XXA Contusion of abdominal wall, initial encounter; E11.9 Type 2 diabetes mellitus without complications; F17.200 Nicotine dependence, unspecified, uncomplicated; V43.52XA Car driver injured in collision with other type car in traffic accident, initial encounter; Z88.2 Allergy status to sulfonamides; Z88.8 Allergy status to other drugs, medicaments and biological substances; Z88.1 Allergy status to other antibiotic agents; Z88.5 Allergy status to narcotic agent; Z79.4 Long term (current) use of insulin; Z79.899 Other long term (current) drug therapy
CPT/HCPCS: 70450; 71260; 72125; 73030; 74177; 80053; 81001; 85025; 99284-25; G0480; Q9967

== ENCOUNTER 2023-10-31 18:26 | Emergency (ER) | payer OTHER ==
[~2023-10-31] VITALS: Ht 182.9 cm; Wt 106.7 kg
[~2023-10-31 18:26] MED LIST changes: +BUPRENORPHINE HC2 MG SL
[2023-10-31 20:19] LABS: BASOPHILS 1.1 % (0-2); EOSINOPHILS 5.4 % (0-6); HEMATOCRIT 31.5 % (35.0-50.0); HEMOGLOBIN 10.5 g/dL (12.0-18.0); LYMPHOCYTES 27.9 % (24-44); MCH 29.4 (27-36); MCHC 33.2 g/dl (30-36); MCV 88.4 fl (81-99); MONOCYTES 11.4 % (0-12); NEUTROPHILS 54.2 % (39-80); PLATELET COUNT 231 K/uL (140-440); RBC 3.56 M/ul (4.3-5.7); RDW 14.2 (10.5-15.0)
[2023-10-31 20:33] LABS: ALBUMIN 3.1 g/dL (3.4-5.0); ALBUMIN/GLOBULIN RATIO 0.89 (1.1-2.4); ANION GAP 10.8 (7-21); BILIRUBIN, TOTAL 0.2 ng/dL (0.2-1.0); BUN/CREATININE RATIO 19.54 (6.0-28.6); CALCIUM 8.8 mg/dL (8.5-10.1); CREATININE, SERUM 1.33 mg/dL (0.70-1.30); POTASSIUM 3.8 mmol/L (3.5-5.1); PROTEIN, TOTAL 6.6 g/dL (6.4-8.2)
[2023-10-31] MEDS ORDERED: LACTATED RINGER'S 1,000 ML IV ONE (21:30)
[2023-10-31] MEDS ORDERED: NEURONTIN400 MG PO (21:57)
[2023-10-31] MEDS ORDERED: LANTUS100 UNITS/ SUB-Q (21:57)
--- NOTE | 2023-11-01 11:57 | EKG ---
[facility] [address] [place], [place] [address] Signed Normal sinus rhythm Right bundle branch block Abnormal ECG No previous ECGs available Confirmed by Elaine Gunn MD ([id number]) on 11/01/2023 11:57:47 AM Electronically Signed By: ELAINE GUNN 11/01/23 1157 PATIENT NAME: YIMIMINLOY SCOTT Electrocardiogram DATE OF : 74 PHYSICIAN: ELAINE GUNN REPORT #: [id number] REPORT IS CONFIDENTIAL AND NOT TO BE RELEASED WITHOUT AUTHORIZATION
== END 2023-10-31 22:07 | disposition home or self-care (01) ==
LOC: ED 18:26
PROVIDERS: Internal Medicine
DX: M23.92 Unspecified internal derangement of left knee (principal); E11.40 Type 2 diabetes mellitus with diabetic neuropathy, unspecified; F17.200 Nicotine dependence, unspecified, uncomplicated; Z88.2 Allergy status to sulfonamides; Z88.5 Allergy status to narcotic agent; Z88.1 Allergy status to other antibiotic agents; Z79.4 Long term (current) use of insulin; Z79.899 Other long term (current) drug therapy
CPT/HCPCS: 36415; 73560; 80053; 82553; 84484; 85025; 85379; 93005; 93010; 93971; 99284-25; J7121

== ENCOUNTER 2024-01-15 20:19 | Emergency (ER) | payer OTHER ==
[~2024-01-15] VITALS: Ht 182.9 cm; Wt 107.7 kg
[~2024-01-15 20:19] MED LIST changes: +GLIMEPIRIDE4 MG PO; +LANTUS100 UNITS/ SUB-Q; +NEURONTIN400 MG PO; +TAMSULOSIN HCL0.4 MG PO
[2024-01-15] MEDS ORDERED: KETOROLAC TROMETHAMINE 60 MG/2 ML VIAL IM ONE (22:00)
[2024-01-16 00:56] VITALS: BP 95/58
== END 2024-01-16 00:59 | disposition home or self-care (01) ==
LOC: ED 20:19
DX: S93.401A Sprain of unspecified ligament of right ankle, initial encounter (principal); E11.9 Type 2 diabetes mellitus without complications; F17.200 Nicotine dependence, unspecified, uncomplicated; X50.1XXA Overexertion from prolonged static or awkward postures, initial encounter; Z88.2 Allergy status to sulfonamides; Z88.5 Allergy status to narcotic agent; Z88.1 Allergy status to other antibiotic agents; Z88.8 Allergy status to other drugs, medicaments and biological substances; Z79.4 Long term (current) use of insulin; Z79.899 Other long term (current) drug therapy; Z79.84 Long term (current) use of oral hypoglycemic drugs
CPT/HCPCS: 73610; 73630; 96372; 99283-25; J1885